=== PATIENT | male | born 2000 | race Hispanic/Latino ===

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

== ENCOUNTER 2021-03-22 20:18 | Emergency (ER) | payer OTHER ==
[2021-03-22] MEDS ORDERED: ONDANSETRON 4 MG/2 ML VIAL ONE (21:25)
[2021-03-22] MEDS ORDERED: FAMOTIDINE 20 MG/2 ML VIAL IV ONE (21:26)
[2021-03-22] MEDS ORDERED: NA CHLORIDE 0.9% 1,000 ML ONE ×2 (21:26→23:13)
[2021-03-22 21:29] LABS: Absolute Lymphocytes (CBC) 0.6 K/uL (0.7-4.9); Basophils % 0.1 % (0-1.3); Lymphocytes % 4.5 % (15.3-44.8); MPV 9.6 fL (7.6-11.3); RBC Red Blood Cell Count 5.16 M/uL (4.33-5.43)
[2021-03-22 21:47] LABS: ALT/SGPT 153 U/L (12-78); AST/SGOT 52 U/L (15-37); Albumin 4.3 g/dL (3.4-5.0); Alkaline Phosphatase 119 U/L (45-117); BUN Blood Urea Nitrogen 13 mg/dL (7-18); Bicarbonate 27 mmol/L (21-32); Bilirubin Direct 0.3 mg/dL (0-0.2); Bilirubin Total 1.3 mg/dL (0.2-1.0); Glucose Level 308 mg/dL (74-106); Lipase 56 U/L (73-393); Potassium 3.7 mmol/L (3.5-5.1); Protein, Total 8.1 g/dL (6.4-8.2); Sodium Level 136 mmol/L (136-145)
[2021-03-22 22:24] LABS: Blood Morphology Comment NOT SEEN (NOT SEEN); Platelet Estimate ADEQ
[2021-03-22] MEDS ORDERED: INSULIN -REGULAR HUMAN 50 UNIT/0.5 ML ML ONE (23:13)
--- NOTE | 2021-03-23 00:46 | ER ---
Nurse's Notes [facility] Name: Sergio Hilton Age: 20 yrs Sex: Male : 2000 Arrival Date: 03/22/2021 Time: 20:20 Bed 5 Private MD: Diagnosis: Nausea and vomiting;Diarrhea, unspecified;Diabetes mellitus due to underlying condition with hyperglycemia Presentation: 03/22 20:25 Chief complaint: Patient states: NVD that began today; pt stated has vomited 3x today vg1 and is unable to keep anything down. Pt also c/o headache. Coronavirus screen: Client denies travel out of the [place] in the last 14 days. Ebola Screen: Patient negative for fever greater than or equal to 101.5 degrees Fahrenheit, and additional compatible Ebola Virus Disease symptoms. Initial Sepsis Screen: Does the patient meet any 2 criteria? No. Patient's initial sepsis screen is negative. Does the patient have a suspected source of infection? No. Patient's initial sepsis screen is negative. Risk Assessment: Do you want to hurt yourself or someone else? Patient reports no desire to harm self or others. Onset of symptoms was March 22, 2021. 20:25 Method Of Arrival: Ambulatory vg1 20:25 Acuity: YURI 3 vg1 Triage Assessment: 20:27 General: Appears in no apparent distress. comfortable, Behavior is calm, cooperative. vg1 Pain: Complains of pain in abdomen. GI: Reports diarrhea, intolerance of fluids, intolerance of food, nausea, vomiting. Historical: - Allergies: 20:27 Latex, Natural Rubber; vg1 - Home Meds: 20:27 Metformin Oral [Active]; pantoprazole Oral [Active]; Trazodone Oral [Active]; vg1 citalopram oral [Active]; - PMHx: 20:27 Diabetes - NIDDM; Irritable bowel syndrome; Leukemia; vg1 - Immunization history:: Adult Immunizations up to date, Client reports receiving the 2nd dose of the Covid vaccine. - Social history:: Smoking status: Patient denies any tobacco usage or history of. Screenin:26 Abuse screen: Denies threats or abuse. Nutritional screening: No deficits noted. jb4 Tuberculosis screening: No symptoms or risk factors identified. Fall Risk None identified. Assessment: 21:10 General: Appears in no apparent distress. comfortable, Behavior is calm, cooperative. jb4 Pain: Denies pain. Neuro: Level of Consciousness is awake, alert, obeys commands, Oriented to person, place, time, situation. Cardiovascular: Patient's skin is warm and dry. Respiratory: Airway is patent Respiratory effort is even, unlabored, Respiratory pattern is regular, symmetrical. GI: Abdomen is flat, non-distended, Reports nausea, vomiting. : No signs and/or symptoms were reported regarding the genitourinary system. EENT: No signs and/or symptoms were reported regarding the EENT system. Derm: Skin is intact, Skin is pink, warm \T\ dry. Musculoskeletal: Circulation, motion, and sensation intact. Range of motion: intact in all extremities. 22:30 Reassessment: Patient appears in no apparent distress at this time. Patient and/or jb4 family updated on plan of care and expected duration. Pain level reassessed. Patient is alert, oriented x 3, equal unlabored respirations, skin warm/dry/pink. 03/23 00:00 Reassessment: Patient appears in no apparent distress at this time. Patient and/or jb4 family updated on plan of care and expected duration. Pain level reassessed. Patient is alert, oriented x 3, equal unlabored respirations, skin warm/dry/pink. 00:44 Reassessment: Patient appears in no apparent distress at this time. Patient and/or jb4 family updated on plan of care and expected duration. Pain level reassessed. Patient is alert, oriented x 3, equal unlabored respirations, skin warm/dry/pink. Vital Signs: 03/22 20:25 BP 129 / 78; Pulse 120; Resp 18; Temp 97.8; Pulse Ox 97% ; Weight 72.57 kg; Height 5 vg1 ft. 5 in. (165.10 cm); Pain 5/10; 22:45 BP 117 / 80; Pulse 84; Resp 16; Pulse Ox 95% on R/A; jb4 03/23 00:00 BP 119 / 78; Pulse 102; Resp 18; Pulse Ox 98% on R/A; jb4 00:30 BP 117 / 77; Pulse 99; Resp 16; Pulse Ox 97% on R/A; jb4 03/22 20:25 Body Mass Index 26.63 (72.57 kg, 165.10 cm) 1 ED Course: 03/22 20:20 Patient arrived in ED. cf2 20:27 Triage completed. vg1 20:27 Arm band placed on. vg1 20:35 Ulises Sullivan PA is PHCP. cp 20:36 Sarbjit Gant MD is Attending Physician. cp 21:02 Flaco Doherty, RN is Primary Nurse. jb4 21:10 Initial lab(s) drawn, by in, sent to lab. Inserted saline lock: 18 gauge in right jb4 antecubital area, using aseptic technique. Blood collected. 21:26 Patient has correct armband on for positive identification. Bed in low position. Call jb4 light in reach. Side rails up X 1. Pulse ox on. NIBP on. 23:02 US Abdomen Limited: elevated liver enzymes In Process Unspecified. EDMS 23:09 CT Abd/Pelvis - IV Contrast Only In Process Unspecified. EDMS 03/23 01:03 No provider procedures requiring assistance completed. IV discontinued, intact, jb4 bleeding controlled, No redness/swelling at site. Pressure dressing applied. Administered Medications: 03/22 21:18 Drug: Zofran (Ondansetron) 4 mg Route: IVP; Site: right antecubital; 4 21:50 Follow up: Response: No adverse reaction jb4 21:18 Drug: NS 0.9% 1000 ml Route: IV; Rate: 1 bolus; Site: right antecubital; jb4 22:00 Follow up: Response: No adverse reaction; IV Status: Completed infusion; IV Intake: jb4 1000ml 21:20 Drug: Pepcid (famotidine) 20 mg Route: IVP; Site: right antecubital; jb4 21:50 Follow up: Response: No adverse reaction jb4 22:54 Drug: Insulin Regular Human 10 units {Co-Signature: [email or web address] (Flaco Doherty RN).} Route: IVP; [facility] Site: right antecubital; 03/23 01:04 Follow up: Response: No adverse reaction; Marked relief of symptoms; Blood sugar is jb4 lowered 03/22 22:54 Drug: NS 0.9% 1000 ml Route: IV; Rate: 1 bolus; Site: right antecubital; jm8 03/23 00:00 Follow up: Response: No adverse reaction; IV Status: Completed infusion; IV Intake: jb4 1000ml Intake: 03/22 22:00 IV: 1000ml; Total: 1000ml. jb4 03/23 00:00 IV: 1000ml; Total: 2000ml. jb4 Outcome: 00:46 Discharge ordered by . cp 01:03 Discharged to home ambulatory. jb4 01:03 Condition: stable 01:03 Discharge instructions given to patient, Instructed on discharge instructions, follow up and referral plans. medication usage, Demonstrated understanding of instructions, follow-up care, medications, Prescriptions given X 2. 01:05 Patient left the ED. jb4 Signatures: Dispatcher [employer] EDMS Ulises Sullivan PA PA cp Bryson, James, JOEL RN jb4 Mike Burkett cf2 Sujatha Del Real RN RN vg1 Hernandez Boucher, RN RN jm8 Flaco Doherty RN jb4
--- NOTE | 2021-03-23 00:47 | EDPHYS ---
Physician Documentation [facility] Name: Sergio Hilton Age: 20 yrs Sex: Male : 2000 Arrival Date: 03/22/2021 Time: 20:20 Bed 5 Private MD: ED Physician Sarbjit Gant HPI: 03/22 20:50 This 20 yrs old Male presents to ER via Ambulatory with complaints of cp Nausea/Vomiting, Headache. 20:50 The patient presents to the emergency department with nausea, that is moderate, cp vomiting, that is intermittent, diarrhea, that is intermittent, abdominal pain, of the abdomen diffusely. Onset: The symptoms/episode began/occurred last night, and became worse this morning. Possible causes: bad food exposure, ate some gummy bears from convenience store. Associated signs and symptoms: Pertinent positives: anorexia, diarrhea, nausea, vomiting, Pertinent negatives: constipation, fever, GI bleeding. Severity of symptoms: in the emergency department the symptoms are unchanged despite home interventions. Historical: - Allergies: 20:27 Latex, Natural Rubber; vg1 - Home Meds: 20:27 Metformin Oral [Active]; pantoprazole Oral [Active]; Trazodone Oral [Active]; vg1 citalopram oral [Active]; - PMHx: 20:27 Diabetes - NIDDM; Irritable bowel syndrome; Leukemia; vg1 - Immunization history:: Adult Immunizations up to date, Client reports receiving the 2nd dose of the Covid vaccine. - Social history:: Smoking status: Patient denies any tobacco usage or history of. ROS: 21:00 Constitutional: Positive for poor PO intake, Negative for body aches, chills, fever. cp 21:00 Eyes: Negative for injury, pain, redness, and discharge. cp 21:00 Cardiovascular: Negative for chest pain, edema, palpitations. cp 21:00 Respiratory: Negative for cough, shortness of breath, wheezing. 21:00 Abdomen/GI: Positive for abdominal pain, nausea, vomiting, and diarrhea, Negative for constipation. 21:00 : Negative for urinary symptoms. 21:00 Neuro: Positive for headache, Negative for altered mental status, weakness. 21:00 All other systems are negative. Exam: 21:05 Constitutional: The patient appears in no acute distress, alert, awake, non-toxic, well cp developed, well nourished. 21:05 Head/Face: Normocephalic, atraumatic. cp 21:05 Eyes: Periorbital structures: appear normal, Conjunctiva: normal, no exudate, no injection, Sclera: no appreciated abnormality, Lids and lashes: appear normal, bilaterally. 21:05 ENT: External ear(s): are unremarkable, Nose: is normal, Mouth: Lips: moist, Oral mucosa: moist, Posterior pharynx: Airway: no evidence of obstruction, patent. 21:05 Chest/axilla: Inspection: normal, Palpation: is normal, no crepitus, no tenderness. 21:05 Cardiovascular: Rate: tachycardic, Rhythm: regular. 21:05 Respiratory: the patient does not display signs of respiratory distress, Respirations: normal, no use of accessory muscles, no retractions, labored breathing, is not present, Breath sounds: are clear throughout, no decreased breath sounds, no stridor, no wheezing. 21:05 Abdomen/GI: Inspection: abdomen appears normal, Bowel sounds: active, all quadrants, Palpation: soft, in all quadrants, mild abdominal tenderness, in all quadrants, rebound tenderness, is not appreciated, voluntary guarding, is not appreciated, involuntary guarding, is not appreciated. 21:05 Back: CVA tenderness, is absent. 21:05 Neuro: Orientation: to person, place \T\ time. Mentation: is normal. Vital Signs: 20:25 BP 129 / 78; Pulse 120; Resp 18; Temp 97.8; Pulse Ox 97% ; Weight 72.57 kg; Height 5 vg1 ft. 5 in. (165.10 cm); Pain 5/10; 22:45 BP 117 / 80; Pulse 84; Resp 16; Pulse Ox 95% on R/A; jb4 03/23 00:00 BP 119 / 78; Pulse 102; Resp 18; Pulse Ox 98% on R/A; jb4 00:30 BP 117 / 77; Pulse 99; Resp 16; Pulse Ox 97% on R/A; jb4 03/22 20:25 Body Mass Index 26.63 (72.57 kg, 165.10 cm) vg1 MDM: 03/22 20:39 Patient medically screened. 03/23 00:44 Data reviewed: vital signs, nurses notes, lab test result(s), radiologic studies, CT cp scan, ultrasound. Counseling: I had a detailed discussion with the patient and/or guardian regarding: the historical points, exam findings, and any diagnostic results supporting the discharge/admit diagnosis, lab results, radiology results, to return to the emergency department if symptoms worsen or persist or if there are any questions or concerns that arise at home. Response to treatment: the patient's symptoms have markedly improved after treatment, Nausea and pain improved. Vomiting resolved. Will discharge to home for continued monitoring. 03/22 20:41 Order name: Basic Metabolic Panel; Complete Time: 22:45 cp 03/22 22:45 Interpretation: Normal except: GLUC 308. cp 03/22 20:41 Order name: CBC with Diff; Complete Time: 22:45 cp 03/22 23:42 Interpretation: Normal except: WBC 12.40. cp 03/22 20:41 Order name: Hepatic Function; Complete Time: 22:45 cp 03/22 23:42 Interpretation: Normal except: AST 52; ALT 153; ALK 119; BILIT 1.3; BILID 0.3; GLOB 3.8.cp 03/22 20:41 Order name: Lipase; Complete Time: 22:45 cp 03/22 20:41 Order name: Ketone, Serum; Complete Time: 22:45 cp 03/22 21:24 Order name: Glucose, Ancillary Testing; Complete Time: 22:45 EDMS 03/22 21:31 Order name: Manual Differential; Complete Time: 22:45 EDMS 03/22 23:43 Interpretation: Normal except: BANDS [F] 18; LYM 3. cp 03/22 22:47 Order name: US Abdomen Limited: elevated liver enzymes 03/22 22:47 Order name: CT Abd/Pelvis - IV Contrast Only cp 03/23 00:53 Order name: Glucose, Ancillary Testing EDMS 03/22 20:41 Order name: IV Saline Lock; Complete Time: 21:23 cp 03/22 20:41 Order name: Labs collected and sent; Complete Time: 21:23 cp 03/22 20:41 Order name: Accucheck Blood Glucose; Complete Time: 21:23 cp 03/23 00:13 Order name: PO challenge; Complete Time: 00:20 cp 03/23 00:14 Order name: Accucheck Blood Glucose; Complete Time: 00:43 cp Administered Medications: 03/22 21:18 Drug: Zofran (Ondansetron) 4 mg Route: IVP; Site: right antecubital; jb4 21:50 Follow up: Response: No adverse reaction [facility] 21:18 Drug: NS 0.9% 1000 ml Route: IV; Rate: 1 bolus; Site: right antecubital; jb4 22:00 Follow up: Response: No adverse reaction; IV Status: Completed infusion; IV Intake: jb4 1000ml 21:20 Drug: Pepcid (famotidine) 20 mg Route: IVP; Site: right antecubital; jb4 21:50 Follow up: Response: No adverse reaction [facility] 22:54 Drug: Insulin Regular Human 10 units {Co-Signature: [email or web address] (Flaco Doherty RN).} Route: IVP; [facility] Site: right antecubital; 03/23 01:04 Follow up: Response: No adverse reaction; Marked relief of symptoms; Blood sugar is jb4 lowered 03/22 22:54 Drug: NS 0.9% 1000 ml Route: IV; Rate: 1 bolus; Site: right antecubital; [facility] 03/23 00:00 Follow up: Response: No adverse reaction; IV Status: Completed infusion; IV Intake: jb4 1000ml Disposition: 03/23/21 00:46 Discharged to Home. Impression: Nausea and vomiting, Diarrhea, unspecified, Diabetes mellitus due to underlying condition with hyperglycemia. - Condition is Stable. - Discharge Instructions: Diarrhea, Adult, Nausea and Vomiting, Adult, Diabetes Mellitus and Food. - Prescriptions for Pepcid 20 mg Oral Tablet - take 1 tablet by ORAL route every 12 hours for 10 days; 20 tablet. Zofran 4 mg Oral Tablet - take 1 tablet by ORAL route every 12 hours As needed; 20 tablet. - Medication Reconciliation Form, Thank You Letter, Antibiotic Education, Prescription Opioid Use form. - Follow up: Private Physician; When: 2 - 3 days; Reason: Worsening of condition. - Problem is new. - Symptoms have improved. Signatures: Dispatcher [employer] EDMS Ulises Sullivan PA PA cp Bryson, James, RN RN jb4 Sujatha Del Real RN RN vg1 Hernandez Boucher RN RN jm8 Flaco Doherty RN jb4 Corrections: (The following items were deleted from the chart) 01:05 00:46 03/23/2021 00:46 Discharged to Home. Impression: Nausea and vomiting; Diarrhea, jb4 unspecified; Diabetes mellitus due to underlying condition with hyperglycemia. Condition is Stable. Forms are Medication Reconciliation Form, Thank You Letter, Antibiotic Education, Prescription Opioid Use. Follow up: Private Physician; When: 2 - 3 days; Reason: Worsening of condition. Problem is new. Symptoms have improved. cp
[2021-03-23 01:22] VITALS: TEMP 97.8
[2021-03-23 01:28] VITALS: BP 117/77; O2SAT 97
--- NOTE | 2021-03-23 06:51 | RAD REPORT ---
EXAM DESCRIPTION: US - Abdomen Exam Limited - 03/22/2021 11:01 pm CLINICAL HISTORY: ABD PAIN COMPARISON: Abdomen Pelvis W Contrast dated 11/14/2019 FINDINGS: No gallstones, sludge or other abnormalities within the gallbladder lumen. There is no wal l thickening or pericholecystic fluid. No common duct stone or biliary tree dilatation identified. IMPRESSION: Normal gallbladder and biliary tree ultrasound.
--- NOTE | 2021-03-23 10:33 | RAD REPORT ---
EXAM DESCRIPTION: CT - Abdomen Pelvis W Contrast - 03/23/2021 6:56 am CLINICAL HISTORY: The patient is 20 years old and is Male; ABD PAIN TECHNIQUE: Axial computed tomography images of the abdomen and pelvis with intravenous contrast. S agittal and coronal reformatted images were created and reviewed. This CT exam was performed using one or more of the following dose reduction techniques: automated exposure control, adjustment of t he mA and/or kV according to patient size, and/or use of iterative reconstruction technique. COMPARISON: CT abdomen and pelvis 11/14/2019. FINDINGS: Lung bases: Unremarkable. No mass. No consolidation. ABDOMEN: Liver: Unremarkable. No mass. Gallbladder and bile ducts: Unremarkable. No calcified stones. No ductal dilation. Pancreas: Unremarkable. No mass. No ductal dilation. Spleen: Unremarkable. No splenomegaly. Adrenals: Unremarkable. No mass. Kidneys and ureters: Unremarkable. No solid mass. No hydronephrosis. Stomach and bowel: Fluid in the rectosigmoid colon. No obstruction. No mucosal thickening. PELVIS: Appendix: The appendix is not visualized. Hyperdensity in the right lower quadrant which may be related to prior appendectomy. Bladder: Unremarkable. No mass. Reproductive: Unremarkable as visualized. ABDOMEN and PELVIS: Intraperitoneal space: Unremarkable. No free air. No significant fluid collection. Bones/joints: Nonspecific 1.3 cm sclerotic lesion in the left iliac wing which appears similar t o the prior exam. No acute fracture. No dislocation. Soft tissues: Unremarkable. Vasculature: Unremarkable. No abdominal aortic aneurysm. Lymph nodes: Unremarkable. No enlarged lymph nodes. IMPRESSION: No acute findings in the abdomen or pelvis. Electronically signed by: Solitario Waller MD 03/22/2021 11:46 PM CDT Due to temporary technical issues with the PACS/Fluency reporting system, reports are being signed by the in house radiologist without review as a courtesy to ensure prompt reporting. The interpreting r adiologist is fully responsible for the content of the report.
== END 2021-03-23 01:05 | disposition home or self-care (01) ==
LOC: ER 20:18
DX: E11.65 Type 2 diabetes mellitus with hyperglycemia (principal); R19.7 Diarrhea, unspecified; Z85.6 Personal history of leukemia; Z91.040 Latex allergy status; Z91.048 Other nonmedicinal substance allergy status
CPT/HCPCS: 85025; 80048; 36415; 82010; 82947 ×2; 80076; 83690; 74177; 76705; Q9967; J7030 ×2; J2405; 96361; 96374; 96375; 99284

== ENCOUNTER 2021-05-25 10:27 | Emergency (ER) | payer OTHER ==
--- OUTSIDE RECORDS SUMMARY | 2021-05-24 19:16 | XMS REPORT | Continuity of Care Document ---
:2000 Author Organization [facility] t Address [address] [place] [address] Dr. Ayala [address] [place] [address] Care Team Providers Name Role Phone Unavailable Unavailable Unavailable Problems This patient has no known problems. Allergies, Adverse Reactions, Alerts This patient has no known allergies or adverse reactions. Medications This patient has no known medications. Procedures This patient has no known procedures. Results This patient has no known results.
--- NOTE | 2021-05-25 15:07 | ER ---
Nurse's Notes [facility] Name: Sergio Hilton Age: 20 yrs Sex: Male : 2000 Arrival Date: 05/25/2021 Time: 10:36 Bed DIS11 Private MD: Diagnosis: Streptococcal pharyngitis Presentation: 05/25 11:19 Chief complaint: Patient states: Itchy rash all over x 1.5 weeks, exposed to COVID by jl7 mom who tested positive, reports sore throat x 4 days, denies any other symtoms. Coronavirus screen: Client denies travel out of the [place] in the last 14 days. sore throat, Client presents with at least one sign or symptom that may indicate coronavirus-19. Standard/surgical mask placed on the client. Provider contacted for isolation considerations. Ebola Screen: No symptoms or risks identified at this time. Initial Sepsis Screen: Does the patient meet any 2 criteria? No. Patient's initial sepsis screen is negative. Does the patient have a suspected source of infection? No. Patient's initial sepsis screen is negative. Risk Assessment: Do you want to hurt yourself or someone else? Patient reports no desire to harm self or others. Onset of symptoms was May 22, 2021. 11:19 Method Of Arrival: Ambulatory [facility] 11:19 Acuity: YURI 4 jl7 Historical: - Allergies: 12:11 Latex, Natural Rubber; ap3 - PMHx: 11:21 Diabetes - NIDDM; Irritable bowel syndrome; Leukemia; jl7 - Immunization history:: Client reports receiving the 2nd dose of the Covid vaccine, Pfizer. - Social history:: Smoking status: Patient denies any tobacco usage or history of. Screenin:10 Abuse screen: Denies threats or abuse. Nutritional screening: No deficits noted. ap3 Tuberculosis screening: No symptoms or risk factors identified. Fall Risk None identified. Assessment: 11:25 Neuro: Level of Consciousness is awake, alert, obeys commands, Oriented to person, ap3 place, time, situation, Appropriate for age Crepe Box Tender are equal bilaterally Moves all extremities. Gait is steady, Speech is normal. Cardiovascular: Denies chest pain, shortness of breath. Respiratory: Airway is patent Respiratory effort is even, unlabored, Respiratory pattern is regular, symmetrical, Breath sounds are clear bilaterally. GI: No signs and/or symptoms were reported involving the gastrointestinal system. : No signs and/or symptoms were reported regarding the genitourinary system. EENT: Throat is pink. 12:08 General: Appears in no apparent distress. comfortable, Behavior is calm, cooperative, ap3 appropriate for age. Pain: Denies pain. 12:26 Reassessment: Patient and/or family updated on plan of care and expected duration. Pain ap3 level reassessed. Patient is alert, oriented x 3, equal unlabored respirations, skin warm/dry/pink. Vital Signs: 11:19 BP 126 / 80; Pulse 97; Resp 17; Temp 98.2; Pulse Ox 100% on R/A; Weight 77.11 kg; jl7 Height 5 ft. 5 in. (165.10 cm); Pain 8/10; 12:11 BP 115 / 75; Pulse 91; Pulse Ox 99% on R/A; ap3 11:19 Body Mass Index 28.29 (77.11 kg, 165.10 cm) jl7 ED Course: 10:36 Patient arrived in ED. am2 11:21 Triage completed. jl7 11:21 Arm band placed on right wrist. Patient placed in an exam room, on a stretcher. jl7 12:08 Kateryna Dior, RN is Primary Nurse. ap3 12:11 Patient has correct armband on for positive identification. Bed in low position. Call ap3 light in reach. Side rails up X2. Pulse ox on. NIBP on. Door closed. Noise minimized. 12:17 Poly Trinidad is Attending Physician. sp3 13:05 COVID swab sent to lab. Strep swab sent to lab. jl7 15:16 No provider procedures requiring assistance completed. Patient did not have IV access iw during this emergency room visit. Administered Medications: No medications were administered Outcome: 15:06 Discharge ordered by MD. sp3 15:16 Discharged to home ambulatory. iw 15:16 Condition: good 15:16 Discharge instructions given to patient, Instructed on discharge instructions, follow up and referral plans. medication usage, Demonstrated understanding of instructions, follow-up care, medications, Prescriptions given X 1. 15:17 Patient left the ED. iw Signatures: Maude Armstrong RN RN iw Aroldo Nazario RN RN jl7 Kateryna Nye am2 Kateryna Dior RN RN ap3 Poly Trinidad sp3 Corrections: (The following items were deleted from the chart) 12:11 11:21 Allergies: Latex, Natural Rubber; lida ap3
--- NOTE | 2021-05-25 15:07 | EDPHYS ---
Physician Documentation [facility] Name: Sergio Hilton Age: 20 yrs Sex: Male : 2000 Arrival Date: 05/25/2021 Time: 10:36 Bed DIS11 Private MD: ED Physician Poly Trinidad HPI: 05/25 13:21 This 20 yrs old Male presents to ER via Ambulatory with complaints of Rash, sp3 Sore Throat, exposure to covid. 13:21 20-year-old male with no significant past medical history and who was received 2 doses sp3 of the Pfizer vaccine presents with sore throat and Covid exposure secondary to his mom tested positive yesterday. Patient states that his sore throat has been present for approximately 3 to 4 days and he has also had a viral exanthem type rash that is mildly pruritic for approximately 1 week. Patient reports no other symptoms including fever, URI symptoms, sinus symptoms, shortness of breath, back pain, chest pain, abdominal pain, nausea, vomiting, diarrhea, syncope, memory loss, loss of taste or smell, or any other aspect of ROS at this time. Patient is able to swallow and handle oral secretions without difficulty.. Historical: - Allergies: 12:11 Latex, Natural Rubber; ap3 - PMHx: 11:21 Diabetes - NIDDM; Irritable bowel syndrome; Leukemia; jl7 - Immunization history:: Client reports receiving the 2nd dose of the Covid vaccine, Pfizer. - Social history:: Smoking status: Patient denies any tobacco usage or history of. ROS: 13:22 Constitutional: Negative for fever, chills, and weight loss, Eyes: Negative for injury, sp3 pain, redness, and discharge, Neck: Negative for injury, pain, and swelling, Cardiovascular: Negative for chest pain, palpitations, and edema, Respiratory: Negative for shortness of breath, cough, wheezing, and pleuritic chest pain, Abdomen/GI: Negative for abdominal pain, nausea, vomiting, diarrhea, and constipation, Back: Negative for injury and pain, Skin: Negative for injury, rash, and discoloration, Neuro: Negative for headache, weakness, numbness, tingling, and seizure. 13:22 ENT: Positive for sore throat, Negative for drainage from ear(s), ear pain, foreign body sensation, Gum pain Teeth pain nasal discharge, sinus congestion, sinus pain, difficulty swallowing, difficulty handling secretions, hoarseness. 13:22 Skin: Positive for rash. Exam: 13:23 Constitutional: This is a well developed, well nourished patient who is awake, alert, sp3 and in no acute distress. Head/Face: Normocephalic, atraumatic. Eyes: Pupils equal round and reactive to light, extra-ocular motions intact. Lids and lashes normal. Conjunctiva and sclera are non-icteric and not injected. Cornea within normal limits. Periorbital areas with no swelling, redness, or edema. Neck: Trachea midline, no thyromegaly or masses palpated, and no cervical lymphadenopathy. Supple, full range of motion without nuchal rigidity, or vertebral point tenderness. No Meningismus. Chest/axilla: Normal chest wall appearance and motion. Nontender with no deformity. No lesions are appreciated. Cardiovascular: Regular rate and rhythm with a normal S1 and S2. No gallops, murmurs, or rubs. Normal PMI, no JVD. No pulse deficits. Respiratory: Lungs have equal breath sounds bilaterally, clear to auscultation and percussion. No rales, rhonchi or wheezes noted. No increased work of breathing, no retractions or nasal flaring. Abdomen/GI: Soft, non-tender, with normal bowel sounds. No distension or tympany. No guarding or rebound. No evidence of tenderness throughout. Back: No spinal tenderness. No costovertebral tenderness. Full range of motion. 13:23 ENT: External ear(s): are unremarkable, Ear canal(s): are normal, Nose: is normal, Mouth: is normal, Posterior pharynx: erythema. 13:23 Skin: Nonspecific viral exanthem and an eczema type pattern present. Rashes not concerning for infection, necrosis, Nikolsky sign is negative.. Vital Signs: 11:19 BP 126 / 80; Pulse 97; Resp 17; Temp 98.2; Pulse Ox 100% on R/A; Weight 77.11 kg; jl7 Height 5 ft. 5 in. (165.10 cm); Pain 8/10; 12:11 BP 115 / 75; Pulse 91; Pulse Ox 99% on R/A; ap3 11:19 Body Mass Index 28.29 (77.11 kg, 165.10 cm) lida MDM: 12:50 Patient medically screened. sp3 13:24 ED course: Patient stable in no acute distress and likely has a viral syndrome. We will sp3 obtain rapid strep test and COVID-19 nasopharyngeal swab to further delineate possibilities. If both are negative we will discharge patient home on general precautions and viral syndrome diagnosis with supportive care OTC and good oral hydration education.. 15:05 ED course: Patient is strep a positive we will discharge him on antibiotics. Patient's sp3 rash may represent scarlet fever.. 15:09 ED course: Patient's Covid test is still pending and we will call with the results. sp3 There is still a moderate probability chance that he is COVID-19 positive given that his mom is positive and they were in close contact.. 05/25 12:44 Order name: Strep; Complete Time: 15:05 sp3 Administered Medications: No medications were administered Disposition Summary: 05/25/21 15:06 Discharge Ordered Location: Home sp3 Condition: Stable sp3 Diagnosis - Streptococcal pharyngitis sp3 Followup: sp3 - With: Private Physician - When: As needed - Reason: Re-evaluation by your physician Discharge Instructions: - Discharge Summary Sheet sp3 - Strep Throat, Adult sp3 Forms: - Medication Reconciliation Form sp3 - Thank You Letter sp3 - Work release form kj1 - Antibiotic Education sp3 - Prescription Opioid Use sp3 Prescriptions: - Augmentin 875-125 mg Oral Tablet - take 1 tablet by ORAL route every 12 hours for 10 days; 20 tablet; Refills: 0, sp3 Product Selection Permitted Signatures: Dispatcher [employer] Aroldo Deleon RN RN [email or web address] Kateryna Dior RN RN [email or web address] Poly Trinidad sp3 Corrections: (The following items were deleted from the chart) 12:11 11:21 Allergies: Latex, Natural Rubber; lida [email or web address] 14:47 12:44 CORONAVIRUS+ ordered. EDVT EDVT
[2021-05-25 15:23] VITALS: TEMP 98.2
[2021-05-25 15:25] VITALS: BP 115/75; O2SAT 99
== END 2021-05-25 15:17 | disposition home or self-care (01) ==
LOC: ER 10:27
DX: J02.0 Streptococcal pharyngitis (principal); Z20.822 Contact with and (suspected) exposure to COVID-19; Z91.040 Latex allergy status; Z91.048 Other nonmedicinal substance allergy status
CPT/HCPCS: 87081; 99283; U0003

== ENCOUNTER 2021-06-22 12:07 | Emergency (ER) | payer OTHER ==
--- NOTE | 2021-06-22 14:58 | EDPHYS ---
Physician Documentation [facility] Name: Sergio Hilton Age: 20 yrs Sex: Male : 2000 Arrival Date: 06/22/2021 Time: 12:18 Bed DX1 Private MD: ED Physician Ulises Sheikh HPI: 06/22 15:19 This 20 yrs old Male presents to ER via Ambulatory with complaints of Rash - jr8 itchy and all over. 15:19 This is a 20-year-old male patient that presented to the emergency room for rash to jr8 upper extremities, back, lower extremities for 1 month. Has tried wecm-fcg-sygurne lotions and creams without relief. Has also tried antihistamines ekgu-htu-[id number] as well without relief. Stated that he is also seen itchy lesions on the tip of his penis as well.. Historical: - Allergies: 12:51 Latex, Natural Rubber; aa5 - PMHx: 12:51 Diabetes - NIDDM; Irritable bowel syndrome; Leukemia; aa5 12:52 Anger issues; aa5 - Immunization history:: Client reports receiving the 2nd dose of the Covid vaccine. - Social history:: Smoking status: Patient denies any tobacco usage or history of. ROS: 15:19 Constitutional: Negative for fever, chills, and weight loss, Cardiovascular: Negative jr8 for chest pain, palpitations, and edema, Respiratory: Negative for shortness of breath, cough, wheezing, and pleuritic chest pain, Abdomen/GI: Negative for abdominal pain, nausea, vomiting, diarrhea, and constipation, Back: Negative for injury and pain, MS/Extremity: Negative for injury and deformity, Neuro: Negative for headache, weakness, numbness, tingling, and seizure. 15:19 Skin: Positive for rash. Exam: 15:19 Constitutional: This is a well developed, well nourished patient who is awake, alert, jr8 and in no acute distress. Cardiovascular: Regular rate and rhythm with a normal S1 and S2. No gallops, murmurs, or rubs. Normal PMI, no JVD. No pulse deficits. Respiratory: Lungs have equal breath sounds bilaterally, clear to auscultation and percussion. No rales, rhonchi or wheezes noted. No increased work of breathing, no retractions or nasal flaring. MS/ Extremity: Pulses equal, no cyanosis. Neurovascular intact. Full, normal range of motion. Neuro: Awake and alert, GCS 15, oriented to person, place, time, and situation. Cranial nerves II-XII grossly intact. Motor strength 5/5 in all extremities. Sensory grossly intact. 15:19 : Male external genitalia: Patient has a few red papules nonulcerative are umbilicated lesions to the tip of the penis. No discharge or extension into the shaft or testicular region.. 15:19 Skin: Patient has diffuse dry skin with some nonerythematic patching.. Vital Signs: 12:52 BP 141 / 91; Pulse 95; Resp 16 S; Temp 98.3(O); Pulse Ox 100% on R/A; Weight 77.11 kg aa5 (R); Height 5 ft. 5 in. (165.10 cm) (R); 15:08 BP 124 / 78; Pulse 93; Resp 20; Pulse Ox 99% on R/A; kg 12:52 Body Mass Index 28.29 (77.11 kg, 165.10 cm) aa5 MDM: 14:26 Patient medically screened. jr8 14:54 Data reviewed: vital signs, nurses notes, and as a result, I will discharge patient. jr8 Data interpreted: Pulse oximetry: on room air is 100 %. Interpretation: normal. Counseling: I had a detailed discussion with the patient and/or guardian regarding: the historical points, exam findings, and any diagnostic results supporting the discharge/admit diagnosis, the need for outpatient follow up, a examining officer, a family practitioner, to return to the emergency department if symptoms worsen or persist or if there are any questions or concerns that arise at home. 15:34 ED course: Discussed with for his extremities and back it appears that he has a jr8 dermatitis. As far as his genital region it is most likely a balanitis especially with his history of diabetes. We will try nystatin first. If it does not improve would need to see PCP or dermatology to continue to rule out herpetic lesions or other lesions. Administered Medications: No medications were administered Disposition: 06/23 06:41 Co-signature as Attending Physician, Ulises Sheikh MD I agree with the assessment and anjelica plan of care. Disposition Summary: 06/22/21 14:57 Discharge Ordered Location: Home jr8 Problem: new jr8 Symptoms: have improved jr8 Condition: Stable jr8 Diagnosis - Dermatitis, unspecified jr8 - Candidal balanitis jr8 Followup: jr8 - With: Private Physician - When: 2 - 3 days - Reason: Recheck today's complaints, Continuance of care, Re-evaluation by your physician Discharge Instructions: - Discharge Summary Sheet jr8 - Balanitis jr8 - Contact Dermatitis jr8 Forms: - Medication Reconciliation Form jr8 - Thank You Letter jr8 - Antibiotic Education jr8 - Prescription Opioid Use jr8 Prescriptions: - Prednisone 20 mg Oral Tablet - take 1 tablet by ORAL route once daily for 5 days; 5 tablet; Refills: 0, jr8 Product Selection Permitted - Nystatin-Triamcinolone 100,000-0.1 unit/gram-% Topical Ointment - apply 1 application by TOPICAL route 2 times per day; 1 tube; Refills: 0, jr8 Product Selection Permitted Signatures: Ulises Sheikh MD MD cha Calderon, Audri RN RN aa5 Blaise Holman PA PA jr8
--- NOTE | 2021-06-22 14:58 | ER ---
Nurse's Notes [facility] Name: Sergio Hilton Age: 20 yrs Sex: Male : 2000 Arrival Date: 06/22/2021 Time: 12:18 Bed DX1 Private MD: Diagnosis: Dermatitis, unspecified;Candidal balanitis Presentation: 06/22 12:51 Chief complaint: Patient states: rash all over x 1 month ago, pt reports rash is itchy. aa5 Coronavirus screen: At this time, the client does not indicate any symptoms associated with coronavirus-19. Ebola Screen: Patient negative for fever greater than or equal to 101.5 degrees Fahrenheit, and additional compatible Ebola Virus Disease symptoms. Initial Sepsis Screen: Does the patient meet any 2 criteria? No. Patient's initial sepsis screen is negative. Does the patient have a suspected source of infection? No. Patient's initial sepsis screen is negative. Risk Assessment: Do you want to hurt yourself or someone else? Patient reports no desire to harm self or others. Onset of symptoms was 2020. 12:51 Method Of Arrival: Ambulatory aa5 12:51 Acuity: YURI 5 aa5 Triage Assessment: 14:07 General: Appears in no apparent distress. Behavior is calm, cooperative, appropriate kg for age, quiet. Pain: Complains of pain in Generalized Pain currently is 5 out of 10 on a pain scale. Quality of pain is described as Itching, burning. Derm: Rash noted that is itchy, Dry, peeling rash Reports burning, itching. Historical: - Allergies: 12:51 Latex, Natural Rubber; aa5 - PMHx: 12:51 Diabetes - NIDDM; Irritable bowel syndrome; Leukemia; aa5 12:52 Anger issues; aa5 - Immunization history:: Client reports receiving the 2nd dose of the Covid vaccine. - Social history:: Smoking status: Patient denies any tobacco usage or history of. Screenin:07 Abuse screen: Denies threats or abuse. Denies injuries from another. Nutritional kg screening: No deficits noted. Tuberculosis screening: No symptoms or risk factors identified. Fall Risk None identified. Vital Signs: 12:52 BP 141 / 91; Pulse 95; Resp 16 S; Temp 98.3(O); Pulse Ox 100% on R/A; Weight 77.11 kg aa5 (R); Height 5 ft. 5 in. (165.10 cm) (R); 15:08 BP 124 / 78; Pulse 93; Resp 20; Pulse Ox 99% on R/A; kg 12:52 Body Mass Index 28.29 (77.11 kg, 165.10 cm) aa5 ED Course: 12:18 Patient arrived in ED. am2 12:50 Arm band placed on. aa5 12:52 Triage completed. aa5 14:05 Natasha Burton, RN is Primary Nurse. kg 14:12 No provider procedures requiring assistance completed. kg 14:13 Patient has correct armband on for positive identification. kg 14:26 Blaise Holman PA is PHCP. jr8 14:26 Ulises Sheikh MD is Attending Physician. jr8 15:14 Patient did not have IV access during this emergency room visit. kg Administered Medications: No medications were administered Outcome: 14:57 Discharge ordered by . jr8 15:14 Discharged to home ambulatory. kg 15:14 Condition: good 15:14 Discharge instructions given to patient, Instructed on discharge instructions, follow up and referral plans. Demonstrated understanding of instructions, follow-up care, medications, Prescriptions given X 2. 15:15 Patient left the ED. kg Signatures: Meg Varghese, RN RN [facility] Blaise Holman PA PA jr8 Kateryna Nye am2 Natasha Burton, RN RN kg
[2021-06-22 15:35] VITALS: TEMP 98.3
[2021-06-22 15:37] VITALS: BP 124/78; O2SAT 99
== END 2021-06-22 15:15 | disposition home or self-care (01) ==
LOC: ER 12:07
DX: L30.9 Dermatitis, unspecified (principal); B37.42 Candidal balanitis; E11.9 Type 2 diabetes mellitus without complications; Z91.040 Latex allergy status; Z91.048 Other nonmedicinal substance allergy status
CPT/HCPCS: 99282

== ENCOUNTER 2021-11-03 18:44 | Emergency (ER) | payer OTHER ==
--- OUTSIDE RECORDS SUMMARY | 2021-11-03 18:48 | XMS REPORT | Continuity of Care Document ---
:2000 Author Organization [facility] t Address [address] [place] [address] [address] [place] [address] Care Team Providers Name Role Phone Elvia FUNEZP Primary Care Physician Elvia FUNEZP Attending Clinician Payers Payer Name Policy Type Policy Number Effective Date Expiration Date S ource Problems Condition Condition Condition Status Onset Resolution Last Treating Co mments Source Name Details Category Date Date Treatment Clinician Date Bone Bone Disease Active Univers marrow marrow 4-18 [place] 00 Medical 04/22/2011 04/22/2011 Bran ch Blood Blood Disease Active Overview: Univer s transfusio transfusio Formattin ity of n without n without g of this [place] reported reported note Medica l diagnosis diagnosis might be Br anch different from the original. 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 Bran ch ADHD ADHD Disease Active Univers (attention (attention it y of deficit deficit [place] hyperactiv hyperactiv Me dical ity ity Branch disorder) disorder) Allergies, Adverse Reactions, Alerts Allergy Allergy Status Severity Reaction(s) Onset Inactive Treating Comm ents Source Name Type Date Date Clinician Latex Propensi Active Rash Redness Univers ty to 5-18 to site ity of adverse 00:00: where [place] reaction 00 latex Medical s touches Branch Social History Social Habit Start Date Stop Date Quantity Comments Source Exposure to Not sure University SARS-CoV-2 [place] Medical (event) Branch Alcohol intake 2021-11-03 2021-11-03 Current University of 00:00:00 00:00:00 non-drinker of [facility] alcohol Branch (finding) Tobacco use and 2013-01-24 2013-01-24 Never used Universit y of exposure 00:00:00 00:00:00 [facility] Tobacco Comment 2013-01-24 2013-01-24 Family smokes Univer sity of 00:00:00 00:00:00 outside [facility] Sex Assigned At [birth year] Universit y of 00:00:00 00:00:00 [facility] Smoking Status Start Date Stop Date Source Never smoker [facility] Medications Ordered Filled Start Stop Current Ordering Indication Dosage Frequency Signature Comments Components Source Medication Medication Date Date Medication? Clinician (SIG) Name Name metformin Yes [id number] 750mg Take 1 Univers ER 750 mg 1-26 tablet by ity o f 24 hr 00:00: mouth [place] tablet 00 daily with Medical breakfast. Branch rosuvastati 2021- Yes [id number] 20mg Take 1 Univers n 20 mg 1-25 04-26 tablet by ity of tablet 00:00: 04:59 mouth at [place] 00 :00 bedtime Medical for 90 Branch days. ivermectin Yes [id number] 13.5mg Take 4.5 Univers 3 mg tablet 1-12 tablets by it y of 00:00: mouth [place] 00 weekly. Medical Branch triamcinolo Yes [id number] Apply to Univers ne 1-10 area(s) 2 ity of acetonide 00:00: (two) [place] 0.1 % 00 times Medical ointment daily. Branch glipiZIDE 2020-10- Yes [id number] 10mg Take 1 Univers XL 10 mg 24 2-28 03-29 tablet by it y of hr tablet 00:00: 04:59 mouth [place] 00 :00 daily with Medical breakfast Branch for 90 days. clobetasoL 2020-10 Yes [id number] Apply to Univers 0.05 % 2-27 area(s) 2 ity of ointment 00:00: (two) [place] 00 times Medical daily. Branch trazodone 2021-1 Yes Take by Univ ers HCl 1-29 mouth. ity of (TRAZODONE 13:30: [place] ORAL) Medical Branch citalopram 2020-10 Yes 10mg Take 10 mg U nivers 10 mg 1-29 by mouth ity of tablet 13:30: daily. [place] [facility] dicyclomine 2017-10 Yes 10mg Take 10 mg Univers 10 mg - by mouth. ity of capsule 00:00: [place] [facility] dexmethylph Yes [id number] 15mg Take 1 Cap Univers enidate 2-07 by mouth ity of (FOCALIN 00:00: daily. [place] XR) 15 mg 00 Medical 24 hr Branch capsule dexmethylph Yes [id number] One po at Univers enidate 2-07 noon ity of (FOCALIN) 00:00: [place] 10 mg 00 Medical tablet Branch cetirizine Yes [id number] 10mg Take 1 Tab Univers (ZYRTEC) 10 1-03 by mouth ity of mg tablet 00:00: daily. [place] [facility] dexmethylph Yes One po q Un promise enidate 1-03 am after ity of (FOCALIN 00:00: [place] XR[place] 15 mg 00 Medical 24 hr Branch capsule dexmethylph Yes One po Univ ers enidate 1-03 after ity of (FOCALIN) 00:00: lunch [place] 10 mg 00 Medical tablet Branch dexmethylph Yes One po at U nivers enidate 9-20 noon ity of (FOCALIN) 00:00: [place] 10 mg 00 Medical tablet Branch dexmethylph Yes ONE PO Q Un promise enidate 9-20 AM AFTER ity of (FOCALIN 00:00: BREAKFAST [place] XR) 15 mg 00 Medical 24 hr Branch capsule Immunizations Ordered Immunization Filled Immunization Date Status Commen ts Source Name Name SARS-COV-2 COVID-19 2021-09-06 Completed Unive rsity of PFIZER VACCINE 00:00:00 [facility] SARS-COV-2 COVID-19 2021-02-06 Completed Unive rsity of PFIZER VACCINE 00:00:00 [facility] SARS-COV-2 COVID-19 2021-01-16 Completed Unive rsity of PFIZER VACCINE 00:00:00 [facility] DTAP 2013-04-12 Completed University of 00:00:00 [facility] Polio (IPV/OPV) 2013-04-12 Completed Universit y of 00:00:00 [facility] Pneumococcal 7 2013-04-12 Completed University of Conjugate, PCV7 00:00:00 [facility] ical (Prevnar7) Branch HEPATITIS A 2013-03-15 Completed University of 00:00:00 [facility] Hep B, Adol or Pedi 2013-03-15 Completed Unive rsity of Dosage 00:00:00 [facility] Meningococcal 2013-03-15 Completed University of Polysaccharide 00:00:00 [facility] (groups A, C, Y and Branc h W-135) conjugate vaccine (MCV4P) Pneumococcal 13 2013-01-24 Completed Universit y of Conjugate, PCV13 00:00:00 [facility] dical (Prevnar 13) [place] HIB 4 Dose Schedule 2013-01-24 Completed Unive rsity of 00:00:00 [facility] Hep B, Dtap, Polio 2013-01-24 Completed Univer sity of 00:00:00 [facility] Vital Signs Vital Name Observation Time Observation Value Comments Source Systolic blood 2021-11-02 21:58:00 131 mm[Hg] Univer sity [facility] pressure [facility] Diastolic blood 2021-11-02 21:58:00 82 mm[Hg] [facility] Heart rate 2021-11-02 21:58:00 110 /min [facility] Body height 2021-11-02 21:58:00 165.1 cm [facility] Body weight 2021-11-02 21:58:00 70.897 kg [facility] BMI 2021-11-02 21:58:00 26.01 kg/m2 [facility] Oxygen saturation 2021-11-02 21:58:00 98 /min [facility] in Arterial blood Medical Br anch by Pulse oximetry Procedures Procedure Date / Time Performed Performing Clinician [facility] e COMP. METABOLIC PANEL 2021-11-02 22:40:00 [facility] Gan [id number] Plan of Care Planned Activity Planned Date Details Comments Source Encounters Start End Encounter Admission Attending Care Care Encounter Source Date/Time Date/Time Type Type Clinicians Facility Department ID 2021-11-02 2021-11-02 Office Elvia [facility] [id number] 34 Univers 15:00:00 16:27:02 Visit Micheline oneDrum [id number] it y of [place] [id number] Scooter as PITO?BLEA [id number] Id dical [address] MEDICAL OFFICE BUILDING Results Test Description Test Time Test Comments Results Result Comments Source COMP. METABOLIC PANEL (68318) 2021-11-03 05:07:31 Test Item Value Reference Range Interpretation Comme nts NA (test code = 3431727191) 135 mmol/L 135-145 K (test code = 0962317384) 4.7 mmol/L 3.5-5.0 CL (test code = 4433912264) 97 mmol/L 98-108 L CO2 TOTAL (test code = 1829784156) 32 mmol/L 23-31 H AGAP (test code = 4086074574) 2-16 BUN (test code = 8473537829) 12 mg/dL 7-23 GLUCOSE (test code = 1264545779) 367 mg/dL 70-110 H CREATININE (test code = 0.48 mg/dL 0.60-1.25 L 1990028619) TOTAL BILI (test code = 0.6 mg/dL 0.1-1.7 2247026494) CALCIUM (test code = 4339923064) 9.6 mg/dL 8.6-10.6 T PROTEIN (test code = 4374546052) 7.5 g/dL 6.3-8.2 ALBUMIN (test code = 5363564326) 4.7 g/dL 3.5-5.0 ALK PHOS (test code = 0852452259) 148 U/L 34-122 H ALTv (test code = 1742-6) 89 U/L 5-50 H AST(SGOT) (test code = 1751665044) 57 U/L 13-40 H eGFR (test code = 4982363405) mL/min/1.73m2 CASIE (test code = CASIE) Association of Glomerular Filtration Rate (GFR) and Staging of Kidney Disease* + +-------- + ------+| GFR (mL/min/1.73 m2) ?| With Kidney Damage ?| ?Without Kidney Damage+ +-- + +| ?>90 ?| ?Stage one ?| ? Normal ?+ +------- + -------+| ?60-89 ?| ?Stage two ?| ? Decreased GFR ? + +-------- + ------+| ?30-59 ?| ?Stage three ?| ? Stage three ? + +-------- + ------+| ?15-29 ?| ?Stage four ? | ? Stage four ?+ +------- + -------+| ?<15 (or dialysis) ? ?| ?Stage five ? | ? Stage five ?+ +------- + -------+ *Each stage assumes the associated GFR level has been in effect for at least three months. ?Stages 1 to 5, with or without kidney disease, indicate chronic kidney disease. Notes: Determination of stages one and two (with eGFR >59mL/min/1.73 m2) requires estimation of kidney damage for at least three months as defined by structural or functional abnormalities of the kidney, manifested by either:Pathological abnormalities or Markers of kidney damage (including abnormalities in the composition of the blood or urine or abnormalities in imaging tests). Lab Interpretation (test code = Abnormal 27345-4) [facility]"
[2021-11-03] MEDS ORDERED: NA CHLORIDE 0.9% 2,000 ML ONE (19:21)
[2021-11-03] MEDS ORDERED: ACETAMINOPHEN 500 MG TAB ONE (19:21)
[2021-11-03] MEDS ORDERED: ONDANSETRON 4 MG (ODT) TAB ONE (19:21)
[2021-11-03] MEDS ORDERED: ONDANSETRON 4 MG/2 ML VIAL ONE (19:23)
[2021-11-03 19:47] LABS: Absolute Lymphocytes (CBC) 0.4 K/uL (0.7-4.9); Hematocrit 51.4 % (39.6-49.0); Lymphocytes % 3.2 % (15.3-44.8); MPV 8.5 fL (7.6-11.3); RBC Red Blood Cell Count 5.55 M/uL (4.33-5.43)
[2021-11-03 20:03] LABS: ALT/SGPT 101 U/L (12-78); AST/SGOT 28 U/L (15-37); Albumin 4.4 g/dL (3.4-5.0); Alkaline Phosphatase 113 U/L (45-117); BUN Blood Urea Nitrogen 21 mg/dL (7-18); Bicarbonate 28 mmol/L (21-32); Bilirubin Direct 0.2 mg/dL (0-0.2); Bilirubin Total 0.7 mg/dL (0.2-1.0); Glucose Level 274 mg/dL (74-106); Lipase 59 U/L (73-393); Potassium 3.9 mmol/L (3.5-5.1); Protein, Total 8.5 g/dL (6.4-8.2); Sodium Level 136 mmol/L (136-145)
--- NOTE | 2021-11-03 20:04 | RAD REPORT ---
EXAM DESCRIPTION: CTAbdomen Pelvis W Contrast - 11/03/2021 7:53 pm CLINICAL HISTORY: Abdominal pain. diarrhea;Nausea / vomiting COMPARISON: Abdomen Pelvis W Contrast dated 03/22/2021; Abdomen Pelvis W Contrast dated 11/14/2019 TECHNIQUE: Biphasic CT imaging of the abdomen and pelvis was performed with 100 ml non-ionic IV cont rast. All CT scans are performed using dose optimization technique as appropriate and may include automated exposure control or mA/KV adjustment according to patient size. FINDINGS: The lung bases are clear. The liver demonstrates diffuse fatty infiltration. The spleen, pancreas, adrenal glands and kidneys a re within normal limits. No bowel obstruction, free air, free fluid or abscess. Appendectomy. No evidence of significant lym phadenopathy. No suspicious bony findings. IMPRESSION: No acute intra-abdominal or pelvic finding. Fatty liver.
[2021-11-03 20:45] LABS: Blood Morphology Comment NOT SEEN (NOT SEEN); Platelet Estimate ADEQ; White Blood Cell Scan OK (OK)
[2021-11-03 21:23] LABS: SARS-COV-2 RT PCR POSITIVE (NEGATIVE)
--- NOTE | 2021-11-03 22:03 | EDPHYS ---
Physician Documentation [facility] Name: Sergio Hilton Age: 20 yrs Sex: Male : 2000 Arrival Date: 11/03/2021 Time: 18:45 Bed 13 Private MD: ED Physician Severo Yo HPI: 11/03 19:25 This 20 yrs old Male presents to ER via Ambulatory with complaints of rn Vomiting/Diarrhea, Headache. 19:25 The patient presents to the emergency department with nausea, vomiting, diarrhea. rn Onset: The symptoms/episode began/occurred this morning. Possible causes: unknown. The symptoms are aggravated by nothing. The symptoms are alleviated by nothing. Associated signs and symptoms: Pertinent positives: diarrhea, fever, nausea, vomiting, Pertinent negatives: GI bleeding. Severity of symptoms: At their worst the symptoms were moderate in the emergency department the symptoms are unchanged. The patient has not experienced similar symptoms in the past. The patient has not recently seen a physician. 19:25 Patient reports fever/chills/nausea/vomiting/diarrhea that began earlier today. States rn cannot keep anything down. Denies any known sick contacts. Has not checked his sugar. Is not insulin-dependent. 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 Historical: - Allergies: 18:58 Latex, Natural Rubber; jd3 - Home Meds: 18:58 citalopram oral [Active]; Trazodone Oral [Active]; Metformin Oral [Active]; jd3 - PMHx: 18:58 anger issues; Diabetes - NIDDM; Irritable bowel syndrome; Leukemia; jd3 - PSHx: 18:59 Appendectomy; jd3 - Immunization history:: Adult Immunizations up to date, Client reports receiving the 2nd dose of the Covid vaccine, Flu vaccine is not up to date. - Social history:: Smoking status: Patient denies any tobacco usage or history of. - Family history:: not pertinent. - Hospitalizations: : No recent hospitalization is reported. ROS: 19:25 Constitutional: Positive for fever and chills Eyes: Negative for injury, pain, redness, rn and discharge, ENT: Negative for injury, pain, and discharge, Neck: Negative for injury, pain, and swelling, Cardiovascular: Negative for chest pain, palpitations, and edema, Respiratory: Negative for shortness of breath, cough, wheezing, and pleuritic chest pain, Abdomen/GI: Positive for nausea/vomiting/diarrhea, negative for bleeding Back: Negative for injury and pain, : Negative for injury, bleeding, discharge, and swelling, MS/Extremity: Negative for injury and deformity, Skin: Negative for injury, rash, and discoloration, Neuro: Positive for headache and generalized weakness Exam: 19:25 Constitutional: This is a well developed, well nourished patient who is awake, alert, rn and in no acute distress. Head/Face: Normocephalic, atraumatic. Eyes: Periorbital areas with no swelling, redness, or edema. Cardiovascular: Tachycardic, regular. No pulse deficits Respiratory: Speaking full sentences, unlabored. No increased work of breathing, no retractions or nasal flaring. Abdomen/GI: Soft, non-tender, no masses Skin: Warm, dry MS/ Extremity: Pulses equal, no cyanosis. Neuro: Awake and alert, GCS 15, oriented to person, place, time, and situation. Cranial nerves II-XII grossly intact. Motor strength 5/5 in all extremities. Sensory grossly intact. Cerebellar exam normal. 19:32 ECG was reviewed by the Attending Physician. rn Vital Signs: 18:59 BP 108 / 80; Pulse 147; Resp 18 S; Temp 99.0(TE); Pulse Ox 100% on R/A; Weight 70.76 kg jd3 (R); Height 5 ft. 5 in. (165.10 cm) (R); Pain 10/10; 20:26 BP 119 / 74; Pulse 121; Resp 19; Pulse Ox 100% on R/A; ll3 21:43 BP 113 / 66; Pulse 115; Resp 18; Pulse Ox 100% on R/A; ll3 22:47 BP 113 / 71; Pulse 111; Resp 18; Pulse Ox 100% on R/A; ll3 18:59 Body Mass Index 25.96 (70.76 kg, 165.10 cm) jd3 MDM: 19:05 Patient medically screened. rn 22:01 Differential diagnosis: viral gastroenteritis, gastroenteritis, COVID, flu, rn dehydration, hyperglycemia. Data reviewed: vital signs, nurses notes, lab test result(s), radiologic studies, CT scan, and as a result, I will discharge patient. Counseling: I had a detailed discussion with the patient and/or guardian regarding: the historical points, exam findings, and any diagnostic results supporting the discharge/admit diagnosis, lab results, radiology results, the need for outpatient follow up, to return to the emergency department if symptoms worsen or persist or if there are any questions or concerns that arise at home. Response to treatment: the patient's symptoms have markedly improved after treatment, and as a result, I will discharge patient. Special discussion: I discussed with the patient/guardian in detail that at this point there is no indication for admission to the hospital. It is understood, however, that if the symptoms persist or worsen the patient needs to return immediately for re-evaluation. ED course: Father states has a tomorrow and plans to take him, I recommend quarantine and that he does not attend . Also told him that other household members likely are going to have COVID and can also infect others. . 11/03 19:12 Order name: Basic Metabolic Panel; Complete Time: 20:11 11/03 19:12 Order name: CBC with Diff; Complete Time: 20:56 11/03 19:12 Order name: Hepatic Function; Complete Time: 20:11 11/03 19:12 Order name: Lipase; Complete Time: 20:11 11/03 19:12 Order name: COVID-19/FLU A+B (Document "Date of Onset" if Symptomatic) 11/03 19:49 Order name: Glucose, Ancillary Testing; Complete Time: 20:11 [facility] 11/03 19:12 Order name: EKG; Complete Time: 19:13 11/03 19:14 Order name: CT Abd/Pelvis - IV Contrast Only; Complete Time: 20:11 11/03 19:49 Order name: Glucose, Ancillary Testing [facility] 11/03 20:45 Order name: CBC Smear Scan; Complete Time: 20:56 [facility] 11/03 19:12 Order name: IV Saline Lock; Complete Time: 19:45 11/03 19:12 Order name: Labs collected and sent; Complete Time: 19:45 11/03 19:12 Order name: Glucose Level; Complete Time: 19:45 11/03 19:12 Order name: EKG - Nurse/Tech; Complete Time: 19:45 rn EC:32 Rate is 135 beats/min. Rhythm is regular. QRS is negative in leads I, aVF. DC interval rn is normal. QRS interval is normal. QT interval is normal. No Q waves. T waves are Normal. No ST changes noted. Clinical impression: Sinus tachycardia. Interpreted by me. Reviewed by me. Administered Medications: 19:45 Drug: NS 0.9% 1000 ml Route: IV; Rate: 1000 ml; Site: left antecubital; ll3 22:46 Follow up: IV Status: Completed infusion; IV Intake: 1000ml ll3 19:45 Drug: Tylenol 1000 mg Route: PO; ll3 21:42 Follow up: Response: No adverse reaction ll3 19:45 Drug: Zofran (Ondansetron) 4 mg Route: IVP; Site: left antecubital; ll3 21:42 Follow up: Response: No adverse reaction ll3 21:43 Drug: NS 0.9% 1000 ml Route: IV; Rate: 1000 ml; Site: left antecubital; ll3 22:47 Follow up: Response: No adverse reaction; IV Intake: 1000ml ll3 Disposition Summary: 11/03/21 22:02 Discharge Ordered Location: Home rn Problem: new rn Symptoms: have improved rn Condition: Stable rn Diagnosis - SARS-associated coronavirus as the cause of diseases classified elsewhere rn - Vomiting, unspecified rn - Diarrhea, unspecified rn - Dehydration rn - Hyperglycemia, unspecified rn Followup: rn - With: Private Physician - When: As needed - Reason: Recheck today's complaints, Re-evaluation by your physician Discharge Instructions: - Discharge Summary Sheet rn - Diarrhea, Adult rn - Nausea and Vomiting, Adult rn - COVID-19 rn - 10 Things You Can Do to Manage Your COVID-19 Symptoms at Home - [facility] [place] rn - Viral Illness, Adult rn Forms: - Medication Reconciliation Form rn - Thank You Letter rn - Antibiotic varnish blender - Prescription Opioid Use rn Prescriptions: - ondansetron 4 mg Oral tablet,disintegrating - place 1 tablet by TRANSLINGUAL route every 8 hours As needed; 15 tablet; rn Refills: 0, Product Selection Permitted Signatures: Dispatcher [employer] EDMS Severo Yo MD MD rn Davies, Jonathon, RN RN Perez Garcia RN RN ll3 Corrections: (The following items were deleted from the chart) 18:59 18:58 PSHx: None; jd3 jd3
--- NOTE | 2021-11-03 22:03 | ER ---
Nurse's Notes [facility] Name: Sergio Hilton Age: 20 yrs Sex: Male : 2000 Arrival Date: 11/03/2021 Time: 18:45 Bed 13 Private MD: Diagnosis: SARS-associated coronavirus as the cause of diseases classified elsewhere;Vomiting, unspecified;Diarrhea, unspecified;Dehydration;Hyperglycemia, unspecified Presentation: 11/03 18:57 Chief complaint: Patient states: "I have been throwing up all day and having nausea and jd3 vomiting. I don't know if it is because of my diabetes or what.". Coronavirus screen: At this time, the client does not indicate any symptoms associated with coronavirus-19. Ebola Screen: No symptoms or risks identified at this time. Initial Sepsis Screen: Does the patient meet any 2 criteria? No. Patient's initial sepsis screen is negative. Does the patient have a suspected source of infection? No. Patient's initial sepsis screen is negative. Risk Assessment: Do you want to hurt yourself or someone else? Patient reports no desire to harm self or others. Onset of symptoms was November 03, 2021. 18:57 Method Of Arrival: Ambulatory jd3 18:57 Acuity: YURI 3 jd3 Triage Assessment: 19:01 Pain: Complains of pain in abdomen Quality of pain is described as sharp. GI: Abdomen ll3 is flat, non-distended, Reports nausea, vomiting. 19:01 General: Appears in no apparent distress. uncomfortable, Behavior is calm, cooperative. ll3 Historical: - Allergies: 18:58 Latex, Natural Rubber; jd3 - Home Meds: 18:58 citalopram oral [Active]; Trazodone Oral [Active]; Metformin Oral [Active]; jd3 - PMHx: 18:58 anger issues; Diabetes - NIDDM; Irritable bowel syndrome; Leukemia; jd3 - PSHx: 18:59 Appendectomy; jd3 - Immunization history:: Adult Immunizations up to date, Client reports receiving the 2nd dose of the Covid vaccine, Flu vaccine is not up to date. - Social history:: Smoking status: Patient denies any tobacco usage or history of. - Family history:: not pertinent. - Hospitalizations: : No recent hospitalization is reported. Screenin:47 Abuse screen: Denies threats or abuse. Nutritional screening: No deficits noted. ll3 Tuberculosis screening: No symptoms or risk factors identified. Fall Risk IV access (20 points). Mental Status- Oriented to own ability (0 pts). Total Oseguera Fall Scale indicates No Risk (0-24 pts). Assessment: 18:57 General: See triage . ll3 20:25 GI: Abdomen is flat, non-distended, Abd is soft and non tender X 4 quads. Reports ll3 nausea, vomiting. 20:26 Reassessment: Patient appears in no apparent distress at this time. No changes from ll3 previously documented assessment. Patient and/or family updated on plan of care and expected duration. Pain level reassessed. Patient is alert, oriented x 3, equal unlabored respirations, skin warm/dry/pink. 21:43 Reassessment: Patient appears in no apparent distress at this time. No changes from ll3 previously documented assessment. Patient and/or family updated on plan of care and expected duration. Pain level reassessed. Patient is alert, oriented x 3, equal unlabored respirations, skin warm/dry/pink. 22:47 Reassessment: Patient appears in no apparent distress at this time. No changes from ll3 previously documented assessment. Patient and/or family updated on plan of care and expected duration. Pain level reassessed. Patient is alert, oriented x 3, equal unlabored respirations, skin warm/dry/pink. Vital Signs: 18:59 BP 108 / 80; Pulse 147; Resp 18 S; Temp 99.0(TE); Pulse Ox 100% on R/A; Weight 70.76 kg jd3 (R); Height 5 ft. 5 in. (165.10 cm) (R); Pain 10/10; 20:26 BP 119 / 74; Pulse 121; Resp 19; Pulse Ox 100% on R/A; ll3 21:43 BP 113 / 66; Pulse 115; Resp 18; Pulse Ox 100% on R/A; ll3 22:47 BP 113 / 71; Pulse 111; Resp 18; Pulse Ox 100% on R/A; ll3 18:59 Body Mass Index 25.96 (70.76 kg, 165.10 cm) jd3 ED Course: 18:45 Patient arrived in ED. as 18:58 Triage completed. jd3 19:00 Arm band placed on. jd3 19:05 Severo Yo MD is Attending Physician. rn 19:20 Perez Bruno, JOEL is Primary Nurse. ll3 19:52 CT Abd/Pelvis - IV Contrast Only In Process Unspecified. EDMS 22:47 Patient has correct armband on for positive identification. Bed in low position. Call ll3 light in reach. Side rails up X 1. Adult w/ patient. 22:47 No provider procedures requiring assistance completed. IV discontinued, intact, ll3 bleeding controlled, No redness/swelling at site. Pressure dressing applied. Administered Medications: 19:45 Drug: NS 0.9% 1000 ml Route: IV; Rate: 1000 ml; Site: left antecubital; ll3 22:46 Follow up: IV Status: Completed infusion; IV Intake: 1000ml ll3 19:45 Drug: Tylenol 1000 mg Route: PO; ll3 21:42 Follow up: Response: No adverse reaction ll3 19:45 Drug: Zofran (Ondansetron) 4 mg Route: IVP; Site: left antecubital; ll3 21:42 Follow up: Response: No adverse reaction ll3 21:43 Drug: NS 0.9% 1000 ml Route: IV; Rate: 1000 ml; Site: left antecubital; ll3 22:47 Follow up: Response: No adverse reaction; IV Intake: 1000ml ll3 Intake: 22:46 IV: 1000ml; Total: 1000ml. ll3 22:47 IV: 1000ml; Total: 2000ml. ll3 Outcome: 22:02 Discharge ordered by . rn 22:47 Discharged to home ambulatory. ll3 22:47 Condition: stable 22:47 Discharge instructions given to patient, family, Instructed on discharge instructions, follow up and referral plans. medication usage, Demonstrated understanding of instructions, follow-up care, medications, Prescriptions given X 1. 22:51 Patient left the ED. ll3 Signatures: Dispatcher [employer] EDAK Yee Joe as Seevro Yo MD MD rn Davies, Jonathon, RN RN jPerez Bruner RN RN ll3 Corrections: (The following items were deleted from the chart) 18:59 18:58 PSHx: None; jd3 jd3 19:01 18:59 Resp 18bpm; Spontaneous; 70.76 kg; Height 5 ft. 5 in.; BMI: 25.9; Pain 07/18; jd3 [facility] 20:25 20:25 General: See triage . [place] [id number] : 19:00 Pain: Complains of pain in abdomen Quality of pain is described as sharp, [place] [id number] 19:00 GI: Abdomen is flat, non-distended, Reports nausea, vomiting, [place] [id number]
[2021-11-03 22:56] VITALS: TEMP 99; O2SAT 100
[2021-11-03 22:59] VITALS: BP 113/71
== END 2021-11-03 22:51 | disposition home or self-care (01) ==
LOC: ER 18:44
DX: U07.1 COVID-19 (principal); E86.0 Dehydration; E11.65 Type 2 diabetes mellitus with hyperglycemia; R19.7 Diarrhea, unspecified; Z91.040 Latex allergy status; Z91.048 Other nonmedicinal substance allergy status
CPT/HCPCS: 85025; 80048; 36415; 82947; 80076; 83690; 0240U; 74177; Q9967; J7030; J2405; 93005; 96361; 96374; 99283

== ENCOUNTER 2022-02-06 20:22 | Emergency (ER) | payer OTHER ==
--- OUTSIDE RECORDS SUMMARY | 2022-02-06 20:26 | XMS REPORT | Continuity of Care Document ---
:[address] [facility] t Address [address] [place] [address] Dr. Gaxi[address] [place] [address] Care Team Providers Name Role Phone ANENE Primary Care Physician Unavailable Anekathi DRILLER AND BROACHER Attending Clinician ANENE Attending Clinician Unavailable Payers Payer Name Policy Type Policy Number Effective Date Expiration Date S ource Problems Condition Condition Condition Status Onset Resolution Last Treating Co mments Source Name Details Category Date Date Treatment Clinician Date Bone Bone Disease Active [facility] marrow marrow -18 [place] 00 Medical 04/22/2011 04/22/2011 Bran ch Blood Blood Disease Active Overview: Univer s transfusio transfusio Formattin ity of n without n without g of this [place] reported reported note Medica l diagnosis diagnosis might be Br anch different from the original. 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 Leukemia Leukemia Disease Active Unive rs [facility] of [place] [facility] ALL (acute ALL (acute Disease [...] Propensi Active Rash Redness Univers ty to 18 to site ity of adverse 00:00: where [place] reaction 00 latex Medical s touches Branch LATEX DRUG Active Med Rash Univers INGREDI 18 ity of 00:00: [place] [facility] Social History Social Habit Start Date Stop Date Quantity Comments Source Exposure to 2021-12-06 2022-01-05 Not sure [facility] SARS-CoV-2 00:00:00 10:24:00 [facility] (event) Branch Alcohol intake 2022-01-05 2022-01-05 Current University of 00:00:00 00:00:00 non-drinker of [facility] alcohol Branch (finding) Tobacco use and 2013-01-24 2013-01-24 Never used Universit y of exposure 00:00:00 00:00:00 [facility] Tobacco Comment 2013-01-24 2013-01-24 Family smokes Univer sity of 00:00:00 00:00:00 outside [facility] Sex Assigned At 2000 2000 Universit y of 00:00:00 00:00:00 [facility] Smoking Status Start Date Stop Date Source Never smoker [facility] Medications Ordered Filled Start Stop Current Ordering Indication Dosage Frequency Signature Comments Components Source Medication Medication Date Date Medication? Clinician (SIG) Name Name rosuvastati Yes [id number] 20mg Take 1 Univers n 20 mg 4-27 tablet by ity of tablet 00:00: mouth at [place] 00 bedtime. Medical MUST BE Branch SEEN FOR FURTHER REFILLS cephALEXin Yes [id number] 500mg Take 1 Univers (KEFLEX) 3-30 capsule by ity o f 500 mg 00:00: mouth 4 [place] capsule 00 (four) Medical times Branch daily. hydrocortis Yes [id number] Apply to Univers one 2.5 % 3-30 area(s) 2 ity o f cream 00:00: (two) [place] 00 times Medical daily. Branch lisinopriL Yes [id number] 2.5mg Take 1 Univers 2.5 mg 3-22 tablet by ity of tablet 00:00: mouth [place] 00 daily. Medical Branch semaglutide Yes [id number] 1{tbl} Take 1 Univers (RYBELSUS) 3-22 tablet by ity of 3 mg Tab 00:00: mouth [place] 00 daily. Medical Branch lisinopriL Yes [id number] 2.5mg Take 1 Univers 2.5 mg 3-22 tablet by ity of tablet 00:00: mouth [place] 00 daily. Medical Branch semaglutide Yes [id number] 1{tbl} Take 1 Univers (RYBELSUS) 3-22 tablet by ity of 3 mg Tab 00:00: mouth [place] 00 daily. Medical Branch glipiZIDE Yes [id number] 10mg Take 1 U nivers XL 10 mg 24 3-21 tablet by ity of hr tablet 00:00: mouth [place] 00 daily with Medical breakfast. Branch glipiZIDE Yes [id number] 10mg Take 1 U nivers XL 10 mg 24 3-21 tablet by ity of hr tablet 00:00: mouth [place] 00 daily with Medical breakfast. Branch rosuvastati 2021- No [id number] 20mg Take 1 Univers n 20 mg 1-25 04-26 tablet by ity of tablet 00:00: 04:59 mouth at [place] 00 :00 bedtime Medical for 90 Branch days. ivermectin Yes [id number] 13.5mg Take 4.5 Univers 3 mg tablet 1-12 tablets by it y of 00:00: mouth [place] 00 weekly. Medical Branch ivermectin Yes [id number] 13.5mg Take 4.5 Univers 3 mg tablet 1-12 tablets by it y of 00:00: mouth [place] 00 weekly. Medical Branch triamcinolo Yes [id number] Apply to Univers ne 1-10 area(s) 2 ity of acetonide 00:00: (two) [place] 0.1 % 00 times Medical ointment daily. Branch triamcinolo Yes [id number] Apply to Univers ne 1-10 area(s) 2 ity of acetonide 00:00: (two) [place] 0.1 % 00 times Medical ointment daily. Branch clobetasoL 2020-10 Yes [id number] Apply to Univers 0.05 % 2-27 area(s) 2 ity of ointment 00:00: (two) [place] 00 times Medical daily. Branch clobetasoL 2020-10 Yes [id number] Apply to Univers 0.05 % 2-27 area(s) 2 ity of ointment 00:00: (two) [place] 00 times Medical daily. Branch trazodone 2020-10 Yes Take by Univ ers HCl 1-29 mouth. ity of (TRAZODONE 13:30: [place] ORAL) Medical Branch citalopram 2020-10 Yes 10mg Take 10 mg U nivers 10 mg -29 by mouth ity of tablet 13:30: daily. Medical Branch trazodone 2020-10 Yes Take by Univ ers HCl 1-29 mouth. ity of (TRAZODONE 13:30: [place] ORAL) Medical Branch citalopram 2020-10 Yes 10mg Take 10 mg U nivers 10 mg 29 by mouth ity of tablet 13:30: daily. Medical Branch dicyclomine 2017-10 Yes 10mg Take 10 mg Univers 10 mg 1-26 by mouth. ity of capsule 00:00: Medical Branch dicyclomine 2017-10 Yes 10mg Take 10 mg Univers 10 mg 1-26 by mouth. ity of capsule 00:00: Medical Branch dexmethylph 2013-0 Yes [id number] 15mg Take 1 Cap Univers enidate 2-07 by mouth ity of (FOCALIN 00:00: daily. [place] XR) 15 mg 00 Medical 24 hr Branch capsule dexmethylph 2013-0 Yes [id number] One po at Univers enidate 2-07 noon ity of (FOCALIN) 00:00: [place] 10 mg 00 Medical tablet Branch dexmethylph 2013-0 Yes [id number] 15mg Take 1 Cap Univers enidate 2-07 by mouth ity of (FOCALIN 00:00: daily. [place] XR) 15 mg 00 Medical 24 hr Branch capsule dexmethylph 2013-0 Yes [id number] One po at Univers enidate 2-07 noon ity of (FOCALIN) 00:00: [place] 10 mg 00 Medical tablet Branch cetirizine 2013-0 Yes [id number] 10mg Take 1 Tab Univers (ZYRTEC) 10 1-03 by mouth ity of mg tablet 00:00: daily. Medical Branch dexmethylph 2013-0 Yes One po q Un promise enidate 1-03 am after ity of (FOCALIN 00:00: [place] XR[place] 15 mg 00 Medical 24 hr Branch capsule dexmethylph 2013-0 Yes One po Univ ers enidate 1-03 after ity of (FOCALIN) 00:00: lunch [place] 10 mg 00 Medical tablet Branch cetirizine Yes [id number] 10mg Take 1 Tab Univers (ZYRTEC) 10 1-03 by mouth ity of mg tablet 00:00: daily. Medical Branch dexmethylph Yes One po q [...] hr Branch capsule dexmethylph Yes One po at U nivers [...] Completed Unive rsity of PFIZER VACCINE 00:00:00 [facility] SARS-COV-2 COVID-19 2021-09-06 Completed Unive rsity of PFIZER VACCINE 00:00:00 [facility] SARS-COV-2 COVID-19 2021-02-06 Completed Unive rsity of PFIZER VACCINE 00:00:00 [facility] SARS-COV-2 COVID-19 2021-02-06 Completed Unive rsity of PFIZER VACCINE 00:00:00 [facility] SARS-COV-2 COVID-19 2021-01-16 Completed Unive rsity of PFIZER VACCINE 00:00:00 [facility] SARS-COV-2 COVID-19 2021-01-16 Completed Unive rsity of PFIZER VACCINE 00:00:00 [facility] DTAP 2013-04-12 Completed University of 00:00:00 [facility] Polio (IPV/OPV) 2013-04-12 Completed Universit y of 00:00:00 [facility] Pneumococcal 7 2013-04-12 Completed University of Conjugate, PCV7 00:00:00 [facility] ical (Prevnar7) Branch DTAP 2013-04-12 Completed University of 00:00:00 [facility] Polio (IPV/OPV) 2013-04-12 Completed Universit y of 00:00:00 [facility] Pneumococcal 7 2013-04-12 Completed University of Conjugate, PCV7 00:00:00 [facility] ical (Prevnar7) Branch HEPATITIS A 2013-03-15 Completed University of 00:00:00 [facility] Hep B, Adol or Pedi 2013-03-15 Completed Unive rsity of Dosage 00:00:00 [facility] Meningococcal 2013-03-15 Completed University of Polysaccharide 00:00:00 [facility] florencio (groups A, C, Y and Branc h W-135) conjugate vaccine (MCV4P) HEPATITIS A 2013-03-15 Completed University of 00:00:00 [facility] Hep B, Adol or Pedi 2013-03-15 Completed Unive rsity of Dosage 00:00:00 [facility] Meningococcal 2013-03-15 Completed University of Polysaccharide 00:00:00 [facility] florencio (groups A, C, Y and Branc h W-135) conjugate vaccine (MCV4P) Pneumococcal 13 2013-01-24 Completed Universit y of Conjugate, PCV13 00:00:00 [facility] dical (Prevnar 13) Branch HIB 4 Dose Schedule 2013-01-24 Completed Unive rsity of 00:00:00 [facility] Hep B, Dtap, Polio 2013-01-24 Completed Univer sity of 00:00:00 [facility] Pneumococcal 13 2013-01-24 Completed Universit y of Conjugate, PCV13 00:00:00 [facility] dical (Prevnar 13) Branch HIB 4 Dose Schedule 2013-01-24 Completed Unive rsity of 00:00:00 [facility] Hep B, Dtap, Polio 2013-01-24 Completed Univer sity of 00:00:00 [facility] Procedures This patient has no known procedures. Encounters Start End Encounter Admission Attending Care Care Encounter Source Date/Time Date/Time Type Type Clinicians Facility Department ID 2022-02-02 2022[facility]02-02 [id number] Univers 00:00:00 00:00:00 [employer] [id number] it y of [place] [id number] Scooter as PITO?BLEA [id number] [address] OFFICE [facility] 2022-01-28 2022-01-28 Outpatient Pee [facility] [id number] Univers 11:30:00 11:30:00 EMRE gant [facility] 2021-12-31 2021-12-31 [facility] [id number] Univers 00:00:00 00:00:00 [employer] [id number] it y of [place] [id number] Scooter as PITO?BLEA [id number] [address] MEDICAL OFFICE BUILDING 2021-12-30 2021-12-30 Outpatient Pee TREJO [facility] [id number] Univers 11:00:00 11:00:00 EMRE gant [facility] Results This patient has no known results.
[2022-02-06] MEDS ORDERED: NA CHLORIDE 0.9% 1,000 ML ONE (21:58)
[2022-02-06] MEDS ORDERED: ONDANSETRON 4 MG/2 ML VIAL ONE (21:58)
[2022-02-06] MEDS ORDERED: FAMOTIDINE 20 MG/2 ML VIAL IV ONE (21:58)
[2022-02-06 22:23] LABS: Absolute Lymphocytes (CBC) 1.8 K/uL (0.7-4.9); Hematocrit 46.1 % (39.6-49.0); Lymphocytes % 16.5 % (15.3-44.8); MPV 9.1 fL (7.6-11.3); RBC Red Blood Cell Count 5.22 M/uL (4.33-5.43)
[2022-02-06 22:36] LABS: ALT/SGPT 63 U/L (12-78); AST/SGOT 19 U/L (15-37); Albumin 4.4 g/dL (3.4-5.0); Alkaline Phosphatase 122 U/L (45-117); BUN Blood Urea Nitrogen 15 mg/dL (7-18); Bicarbonate 29 mmol/L (21-32); Bilirubin Total 0.7 mg/dL (0.2-1.0); Glucose Level 252 mg/dL (74-106); Lipase 73 U/L (73-393); Potassium 3.3 mmol/L (3.5-5.1); Protein, Total 8.5 g/dL (6.4-8.2); Sodium Level 136 mmol/L (136-145)
[2022-02-06 22:56] LABS: Urine Blood Trace-intact (Negative); Urine Glucose 3+ (Negative); Urine Protein 2+ (Negative); Urine Specific Gravity >=1.030 (1.005-1.030)
[2022-02-06 23:35] LABS: Urine Bacteria <20 /HPF (NONE SEEN); Urine Mucus 1+ /HPF (NONE SEEN); Urine RBC <5 /HPF (NONE SEEN)
--- NOTE | 2022-02-07 01:37 | ER ---
Nurse's Notes [facility] Name: Sergio Hilton Age: 21 yrs Sex: Male : 2000 Arrival Date: 02/06/2022 Time: 20:25 Bed 24 Private MD: Diagnosis: Vomiting;Diarrhea, unspecified;Abdominal pain, Generalized;Type 1 diabetes mellitus with hyperglycemia;Hypokalemia Presentation: 02/06 20:41 Chief complaint: Patient states: "I have been throwing up since this morning, unable to ab2 keep anything down and my stomach hurts." Pt c/o abdominal pain, n/v/d. Coronavirus screen: Vaccine status: Patient reports receiving the 2nd dose of the covid vaccine. Client denies travel out of the [place] in the last 14 days. At this time, the client does not indicate any symptoms associated with coronavirus-19. Ebola Screen: Patient negative for fever greater than or equal to 101.5 degrees Fahrenheit, and additional compatible Ebola Virus Disease symptoms Patient denies exposure to infectious person. Patient denies travel to an Ebola-affected area in the 21 days before illness onset. No symptoms or risks identified at this time. Initial Sepsis Screen: Does the patient meet any 2 criteria? No. Patient's initial sepsis screen is negative. Does the patient have a suspected source of infection? No. Patient's initial sepsis screen is negative. Risk Assessment: Do you want to hurt yourself or someone else? Patient reports no desire to harm self or others. Onset of symptoms is unknown. 20:41 Method Of Arrival: Ambulatory ab2 20:41 Acuity: YURI 3 ab2 Triage Assessment: 20:43 General: Appears in no apparent distress. uncomfortable, Behavior is calm, cooperative, ab2 appropriate for age. Pain: Complains of pain in abdomen. Neuro: Level of Consciousness is awake, alert, obeys commands, Oriented to person, place, time, situation, Appropriate for age. Cardiovascular: Reports None. Respiratory: Airway is patent Respiratory effort is even, unlabored, Respiratory pattern is regular, symmetrical. GI: Abdomen is round Reports lower abdominal pain, upper abdominal pain, cramping, diarrhea, intolerance of fluids, intolerance of food, nausea, vomiting. : No deficits noted. No signs and/or symptoms were reported regarding the genitourinary system. Derm: Skin is intact, is healthy with good turgor. Historical: - Allergies: 20:43 Latex, Natural Rubber; ab2 - PMHx: 20:43 Diabetes - NIDDM; Irritable bowel syndrome; Leukemia; ab2 - PSHx: 20:43 Appendectomy; ab2 - Immunization history:: Adult Immunizations up to date. - Social history:: Smoking status: Patient denies any tobacco usage or history of. Screenin:27 Abuse screen: Denies threats or abuse. Nutritional screening: No deficits noted. bb Tuberculosis screening: No symptoms or risk factors identified. Fall Risk None identified. Assessment: 21:27 General: Appears in no apparent distress. uncomfortable, Behavior is calm, cooperative. bb Pain: Denies pain. Neuro: Level of Consciousness is awake, alert, obeys commands, Oriented to person, place, time, situation. Cardiovascular: Capillary refill < 3 seconds Patient's skin is warm and dry. Respiratory: Airway is patent Respiratory effort is even, unlabored, Respiratory pattern is regular. GI: Bowel sounds present X 4 quads. Abd is soft and non tender X 4 quads. Reports nausea, vomiting. Derm: Skin is pink, warm \\T\\ dry. Musculoskeletal: Circulation, motion, and sensation intact. 22:36 Reassessment: Patient is alert, oriented x 3, equal unlabored respirations, skin bb warm/dry/pink. IV site intact, patent with fluids infusing awaiting CT scan. 02/07 00:09 Reassessment: Patient is alert, oriented x 3, equal unlabored respirations, skin bb warm/dry/pink. pt awaiting diagnostic results, IV site intact. 01:49 Reassessment: Patient is alert, oriented x 3, equal unlabored respirations, skin bb warm/dry/pink. pt given gatorade for PO challenge Patient states feeling better. 02:15 Reassessment: Patient is alert, oriented x 3, equal unlabored respirations, skin bb warm/dry/pink. pt states he is a little nauseated after drinking the gatorade Dr Sheikh notified pt medicated see DEC. Pt verbalized understanding of and agrees to plan of care discharge instructions given pt ambulated with steady gait to exit. Vital Signs: 02/06 20:41 BP 136 / 84; Pulse 110; Resp 16; Temp 97.8; Pulse Ox 100% ; Weight 72.57 kg; Height 5 ab2 ft. 5 in. (165.10 cm); Pain 5/10; 21:27 BP 130 / 92; Pulse 95; Resp 16 S; Pulse Ox 98% on R/A; bb 22:36 BP 127 / 86; Pulse 102; Resp 16 S; Pulse Ox 97% on R/A; bb 02/07 00:09 BP 121 / 85; Pulse 91; Resp 16 S; Pulse Ox 100% on R/A; bb 01:30 BP 112 / 81; Pulse 91; Resp 16; Pulse Ox 97% on R/A; bb 02/06 20:41 Body Mass Index 26.63 (72.57 kg, 165.10 cm) ab2 ED Course: 02/06 20:25 Patient arrived in ED. bp1 20:43 Triage completed. ab2 20:46 Arm band placed on right wrist. ab2 21:16 Ulises Sheikh MD is Attending Physician. anjelica 21:27 Michelle Yung RN is Primary Nurse. bb 21:27 Patient has correct armband on for positive identification. Placed in gown. Bed in low bb position. Call light in reach. Pulse ox on. NIBP on. 22:09 Initial lab(s) drawn, by ED staff, sent to lab. Inserted saline lock: 20 gauge in left bb antecubital area, using aseptic technique. Blood collected. 22:57 Urine collected: clean catch specimen, clear. bb 23:16 CT Abd/Pelvis - IV Contrast Only In Process Unspecified. EDMS 02/07 02:16 No provider procedures requiring assistance completed. IV discontinued, intact, bb bleeding controlled, No redness/swelling at site. Pressure dressing applied. Administered Medications: 02/06 22:09 Drug: NS 0.9% 1000 ml Route: IV; Rate: 1 bolus; Site: left antecubital; bb 23:10 Follow up: IV Status: Completed infusion; IV Intake: 1000ml bb 22:09 Drug: Zofran (Ondansetron) 4 mg Route: IVP; Site: left antecubital; bb 22:56 Follow up: Response: No adverse reaction bb 22:11 Drug: Pepcid (famotidine) 20 mg Route: IVP; Site: left antecubital; bb 22:56 Follow up: Response: No adverse reaction 02/07 02:08 Drug: Zofran (Ondansetron) 4 mg Route: IVP; Site: left antecubital; bb 02:15 Follow up: Response: Medication administered at discharge. bb Point of Care Testing: Blood Glucose: 02/06 20:45 Blood Glucose: 246 mg/dL; ab2 Ranges: Intake: 23:10 IV: 1000ml; Total: 1000ml. bb Outcome: 02/07 01:36 Discharge ordered by MD. dejesus 02:16 Discharged to home ambulatory. bb 02:16 Condition: stable 02:16 Discharge instructions given to patient, Instructed on discharge instructions, follow up and referral plans. medication usage, Demonstrated understanding of instructions, follow-up care, medications, Prescriptions given X 3. 02:16 Patient left the ED. bb Signatures: Dispatcher [employer] EDMS Ulises Sheikh MD MD cha Ballard, Brenda, RN RN Magda Flowers Alexis ab2 Corrections: (The following items were deleted from the chart) 02/06 20:43 20:43 PMHx: anger issues; ab2 ab2
--- NOTE | 2022-02-07 01:37 | EDPHYS ---
Physician Documentation [facility] Name: Sergio Hilton Age: 21 yrs Sex: Male : 2000 Arrival Date: 02/06/2022 Time: 20:25 Bed 24 Private MD: LUIS Physician Ulises Sheikh HPI: 02/07 01:33 This 21 yrs old Male presents to ER via Ambulatory with complaints of anjelica Abdominal Pain, Vomiting/Diarrhea. 01:33 The patient presents to the emergency department with nausea, vomiting, that is anjelica continuous. Onset: The symptoms/episode began/occurred yesterday. Possible causes: unknown. The symptoms are aggravated by food , The symptoms are alleviated by nothing. remaining still. Associated signs and symptoms: Pertinent positives: abdominal pain, diarrhea, vomiting. Severity of symptoms: At their worst the symptoms were mild in the emergency department the symptoms are unchanged. The patient has experienced similar episodes in the past, a few times. Historical: - Allergies: 02/06 20:43 Latex, Natural Rubber; ab2 - PMHx: 20:43 Diabetes - NIDDM; Irritable bowel syndrome; Leukemia; ab2 - PSHx: 20:43 Appendectomy; ab2 - Immunization history:: Adult Immunizations up to date. - Social history:: Smoking status: Patient denies any tobacco usage or history of. ROS: 02/07 01:34 Constitutional: Negative for fever, chills, and weight loss, Eyes: Negative for injury, anjelica pain, redness, and discharge, ENT: Negative for injury, pain, and discharge, Neck: Negative for injury, pain, and swelling, Cardiovascular: Negative for chest pain, palpitations, and edema, Respiratory: Negative for shortness of breath, cough, wheezing, and pleuritic chest pain, Back: Negative for injury and pain, : Negative for injury, bleeding, discharge, and swelling, MS/Extremity: Negative for injury and deformity, Skin: Negative for injury, rash, and discoloration, Neuro: Negative for headache, weakness, numbness, tingling, and seizure, Psych: Negative for depression, anxiety, suicide ideation, homicidal ideation, and hallucinations, Allergy/Immunology: Negative for hives, rash, and allergies, Endocrine: Negative for neck swelling, polydipsia, polyuria, polyphagia, and marked weight changes, Hematologic/Lymphatic: Negative for swollen nodes, abnormal bleeding, and unusual bruising. Abdomen/GI: Positive for abdominal pain, nausea and vomiting, diarrhea. Exam: 01:34 Constitutional: This is a well developed, well nourished patient who is awake, alert, anjelica and in no acute distress. Head/Face: Normocephalic, atraumatic. Eyes: Pupils equal round and reactive to light, extra-ocular motions intact. Lids and lashes normal. Conjunctiva and sclera are non-icteric and not injected. Cornea within normal limits. Periorbital areas with no swelling, redness, or edema. ENT: Nares patent. No nasal discharge, no septal abnormalities noted. Tympanic membranes are normal and external auditory canals are clear. Oropharynx with no redness, swelling, or masses, exudates, or evidence of obstruction, uvula midline. Mucous membranes moist. Neck: Trachea midline, no thyromegaly or masses palpated, and no cervical lymphadenopathy. Supple, full range of motion without nuchal rigidity, or vertebral point tenderness. No Meningismus. Chest/axilla: Normal chest wall appearance and motion. Nontender with no deformity. No lesions are appreciated. Cardiovascular: Regular rate and rhythm with a normal S1 and S2. No gallops, murmurs, or rubs. Normal PMI, no JVD. No pulse deficits. Respiratory: Lungs have equal breath sounds bilaterally, clear to auscultation and percussion. No rales, rhonchi or wheezes noted. No increased work of breathing, no retractions or nasal flaring. Back: No spinal tenderness. No costovertebral tenderness. Full range of motion. Male : Normal genitalia with no discharge or lesions. Skin: Warm, dry with normal turgor. Normal color with no rashes, no lesions, and no evidence of cellulitis. MS/ Extremity: Pulses equal, no cyanosis. Neurovascular intact. Full, normal range of motion. Neuro: Awake and alert, GCS 15, oriented to person, place, time, and situation. Cranial nerves II-XII grossly intact. Motor strength 5/5 in all extremities. Sensory grossly intact. Cerebellar exam normal. Normal gait. Psych: Awake, alert, with orientation to person, place and time. Behavior, mood, and affect are within normal limits. 01:34 Abdomen/GI: Inspection: abdomen appears normal, Bowel sounds: normal, Palpation: mild abdominal tenderness, in all quadrants, Liver: is firm, Hernia: not appreciated. Vital Signs: 02/06 20:41 BP 136 / 84; Pulse 110; Resp 16; Temp 97.8; Pulse Ox 100% ; Weight 72.57 kg; Height 5 ab2 ft. 5 in. (165.10 cm); Pain 5/10; 21:27 BP 130 / 92; Pulse 95; Resp 16 S; Pulse Ox 98% on R/A; bb 22:36 BP 127 / 86; Pulse 102; Resp 16 S; Pulse Ox 97% on R/A; bb 02/07 00:09 BP 121 / 85; Pulse 91; Resp 16 S; Pulse Ox 100% on R/A; bb 01:30 BP 112 / 81; Pulse 91; Resp 16; Pulse Ox 97% on R/A; bb 02/06 20:41 Body Mass Index 26.63 (72.57 kg, 165.10 cm) ab2 MDM: 02/06 21:[address] Patient medically screened[address] [facility] 02/07 01:34 Differential diagnosis: Nonspecific abd pain, gastritis, pancreatitis, viral anjelica gastroenteritis, gastroenteritis. Data reviewed: vital signs, nurses notes, lab test result(s), radiologic studies, CT scan. Data interpreted: court monitor: rate is 91 beats/min, rhythm is regular, Pulse oximetry: on room air is 91 %. Test interpretation: by ED physician or midlevel provider:. Counseling: I had a detailed discussion with the patient and/or guardian regarding: the historical points, exam findings, and any diagnostic results supporting the discharge/admit diagnosis. 02/06 20:57 Order name: Glucose, Ancillary Testing; Complete Time: 21:22 [facility] 02/06 21:23 Order name: CBC with Diff; Complete Time: 01:[address] [facility] 02/06 21:23 Order name: CMP; Complete Time: 01:[address] [facility] 02/06 21:23 Order name: Lipase; Complete Time: 01:[address] [facility] 02/06 21:23 Order name: Urine Microscopic Only; Complete Time: 01:[address] [facility] 02/06 22:56 Order name: Urine Dipstick-Ancillary; Complete Time: 01:13 [facility] 02/06 21:23 Order name: CT Abd/Pelvis - IV Contrast Only [facility] 02/06 21:23 Order name: IV Saline Lock; Complete Time: 22:[address] [facility] 02/06 21:23 Order name: Labs collected and sent; Complete Time: 22:[address] [facility] 02/06 23:38 Order name: Urine Culture [facility] 02/06 21:23 Order name: Urine Dipstick-Ancillary (obtain specimen); Complete Time: 22:[address] [facility] 02/07 01:33 Order name: PO challenge: juice; Complete Time: 01:49 anjelica Administered Medications: 02/06 22:09 Drug: NS 0.9% 1000 ml Route: IV; Rate: 1 bolus; Site: left antecubital; bb 23:10 Follow up: IV Status: Completed infusion; IV Intake: 1000ml bb 22:09 Drug: Zofran (Ondansetron) 4 mg Route: IVP; Site: left antecubital; bb 22:56 Follow up: Response: No adverse reaction bb 22:11 Drug: Pepcid (famotidine) 20 mg Route: IVP; Site: left antecubital; bb 22:56 Follow up: Response: No adverse reaction 02/07 02:08 Drug: Zofran (Ondansetron) 4 mg Route: IVP; Site: left antecubital; bb 02:15 Follow up: Response: Medication administered at discharge. bb Point of Care Testing: Blood Glucose: 02/06 20:45 Blood Glucose: 246 mg/dL; ab2 Ranges: Critical Glucose Levels:Adult <50 mg/dl or >400 mg/dl <40 mg/dl or >180 mg/dl Disposition Summary: 02/07/22 01:36 Discharge Ordered Location: Home anjelica Problem: new anjelica Symptoms: have improved anjelica Condition: Stable anjelica Diagnosis - Vomiting anjelica - Diarrhea, unspecified anjelica - Abdominal pain, Generalized anjelica - Type 1 diabetes mellitus with hyperglycemia anjelica - Hypokalemia anjelica Followup: anjelica - With: Private Physician - When: 2 - 3 days - Reason: Recheck today's complaints, Continuance of care, Re-evaluation by your physician Discharge Instructions: - Discharge Summary Sheet anjelica - Abdominal Pain, Adult anjelica - Diarrhea, Adult anjelica - Abdominal Pain, Adult, [id number] anjelica - Diarrhea, Adult, [id number] anjelica - Potassium Content of Foods anjelica - Vomiting, Adult anjelica - Hypokalemia anjelica Forms: - Medication Reconciliation Form anjelica - Thank You Letter anjelica - Antibiotic Education anjelica - Prescription Opioid Use anjelica Prescriptions: - Pepcid 20 mg Oral Tablet - take 1 tablet by ORAL route every 12 hours for 10 days; 20 tablet; Refills: 0, [facility] Product Selection Permitted - Zofran 4 mg Oral Tablet - take 1 tablet by ORAL route every 12 hours As needed; 20 tablet; Refills: 0, [facility] Product Selection Permitted - dicyclomine 20 mg Oral Tablet - take 1 tablet by ORAL route 4 times per day; 20 tablet; Refills: 0, Product [facility] Selection Permitted Signatures: Dispatcher [employer] Ulises Barnes MD MD cha Ballard, Brenda, RN RN Hermes Vo Corrections: (The following items were deleted from the chart) 20:43 20:43 PMHx: anger issues; ab2 ab2 21:50 21:23 Urine Test ordered. anjelica mittal 02/07 01:33 01:32 Fluid Challenge ordered. anjelica dejesus
[2022-02-07] MEDS ORDERED: ONDANSETRON 4 MG/2 ML VIAL ONE (02:11)
[2022-02-07 03:16] VITALS: TEMP 97.8
[2022-02-07 03:20] VITALS: BP 112/81; O2SAT 97
--- NOTE | 2022-02-07 14:22 | RAD REPORT ---
EXAM DESCRIPTION: CT - Abdomen Pelvis W Contrast - 02/07/2022 5:19 am CLINICAL HISTORY: 21 years Male Abdominal pain, acute, nonlocalized TECHNIQUE: Contiguous axial images obtained through the abdomen and pelvis following intravenous con trast administration. Coronal and sagittal reformatted images provided. This CT exam was performed according to our departmental dose-optimization program, which includes on e or more of the following dose reduction techniques: automated exposure control, adjustment of the m A and/or kV according to patient size, and/or use of iterative reconstruction technique. COMPARISON: No prior exams provided for comparison. FINDINGS: 1.9 cm focus of hypervascularity to the right of the falciform ligament could represent a flash-filling hemangioma. There is a 1.3 cm low-attenuation focus in the caudate which also appears b enign. The lung bases, biliary tree, gallbladder, pancreas, spleen, adrenal glands, kidneys, urinary bladder , and osseous structures are normal. There is no bowel inflammation, obstruction, free intraperitoneal air, or ascites. Prior appendectomy . IMPRESSION: No acute abdominal or pelvic abnormalities. Electronically signed by: Kylee Eller MD 02/06/2022 11:40 PM CDT Due to temporary technical issues with the PACS/Fluency reporting system, reports are being signed by the in house radiologist without review as a courtesy to ensure prompt reporting. The interpreting r adiologist is fully responsible for the content of the report.
== END 2022-02-07 02:16 | disposition home or self-care (01) ==
LOC: ER 20:22
DX: E10.65 Type 1 diabetes mellitus with hyperglycemia (principal); E87.6 Hypokalemia; R19.7 Diarrhea, unspecified; R10.84 Generalized abdominal pain; Z91.040 Latex allergy status; Z91.048 Other nonmedicinal substance allergy status
CPT/HCPCS: 87088; 85025; 87086; 36415; 82947; 83690; 80053; 74177; Q9967; J7030; J2405 ×2; J3490; 81003; 81015; 96361; 96374; 96375; 99284

== ENCOUNTER 2022-06-16 18:41 | Emergency (ER) | payer OTHER ==
--- OUTSIDE RECORDS SUMMARY | 2022-06-16 18:44 | XMS REPORT | Continuity of Care Document ---
:2000 Author Organization [facility] t Address [address] [place] [address] [address] [place] [address] Care Team Providers Name Role Phone Micheline Nieves Primary Care Physician Kateryna Verduzco MD Attending Clinician Payers Payer Name Policy Type [...] different from the original. ICD10 Diagnosis Term [employer] Utility Leukemia Leukemia Disease Active Unive rs [...] ents Source Name Type Date Date Clinician Permethr Propensi Active Itching Unive rs in ty to 04-29 ity of adverse 00:00: [place] reaction 00 Medical s Branch Latex Propensi Active Rash Redness Univers ty to 5-18 to site ity of adverse 00:00: where [place] reaction 00 latex Medical s touches Branch Pegaspar Propensi Active Hives Pre-medic Uni vers gase ty to 2-25 ate ity of adverse 00:00: peg-aspar [place] reaction 00 aginase Medical s with Branch diphenhyd ramine Social History Social Habit Start Date Stop Date Quantity Comments Source History of Passive smoker University of tobacco use [facility] Exposure to 2022-05-18 2022-05-28 Not sure [facility] SARS-CoV-2 00:00:00 11:38:00 [facility] (event) [place] Alcohol intake 2022-05-28 2022-05-28 Current University of 00:00:00 00:00:00 non-drinker of [facility] alcohol (finding) Branch Tobacco use and 2013-03-15 2013-03-15 Smokeless tobacco Un iversity of exposure 00:00:00 00:00:00 non-user [facility] Tobacco Comment 2013-01-24 2013-01-24 Family smokes Univer sity of 00:00:00 00:00:00 outside [facility] Sex Assigned At [birth year] Universit y of 00:00:00 00:00:00 [facility] Smoking Status Start Date Stop Date Source Never smoked tobacco [facility] Medications Ordered Filled Start Stop Current Ordering Indication Dosage Frequency Signature Comments Components Source Medication Medication Date Date Medication? Clinician (SIG) Name Name doxycycline 2021- Yes [id number] 100mg Take 1 Univers hyclate 100 8-20 08-28 tablet by it y of mg tablet 00:00: 04:59 mouth in [place] 00 :00 the Medical morning Branch and 1 tablet in the evening. Do all this for 7 days. clobetasoL Yes [id number] Apply to [facility] 0.05 % 8-05 area(s) 2 ity of ointment 00:00: (two) [place] 00 times Medical daily. Branch methylPREDN Yes [id number] Take by [facility] ISolone 7-22 mouth ity of (MEDROL, 00:00: SEE-INSTRU [place] LOLA,) 4 mg 00 CTIONS. Medica l tablets follow [place] package directions lisinopriL Yes [id number] 2.5mg Take 1 Univers 2.5 mg 6-27 tablet by ity of tablet 00:00: mouth [place] 00 daily. Medical Branch Cholecalcif Yes 2{capsu Take 2 U nivers ricardo, 5-29 le} capsules ity of Vitamin D3, 00:00: by mouth [place] 50 mcg 00 daily. Medical (2,000 Branch unit) capsule guanFACINE Yes TAKE 1 Unive rs ER 3 mg 5-29 TABLET BY ity of tablet 00:00: MOUTH [place] 00 NIGHTLY Medical Branch ROSUVASTATI Yes [id number] 20mg TAKE 1 Univers N 20 mg 5-26 TABLET BY ity of tablet 00:00: MOUTH AT [place] [address] BEDTIME. Medical MUST BE Branch SEEN FOR FURTHER REFILLS famotidine Yes TAKE 1 Unive rs 20 mg 5-02 TABLET BY ity of tablet 00:00: MOUTH [place] 00 EVERY 12 Medical HOURS FOR Branch 10 DAYS ondansetron Yes TAKE 1 Univ ers 4 mg tablet 5-02 TABLET BY ity of 00:00: MOUTH [place] 00 EVERY 12 Medical HOURS Branch NEEDED OXcarbazepi Yes 600mg Take 600 U nivers ne 600 mg 4-25 mg by ity of tablet 00:00: mouth 2 [place] (two) Medical times Branch daily. amoxicillin Yes 500mg Take 500 U nivers 500 mg 4-19 mg by ity of capsule 00:00: mouth 3 [place] 00 (three) Medical times Branch daily. ARIPiprazol Yes 5mg Take 5 mg U nivers e 5 mg 4-12 by mouth ity of tablet 00:00: at [place] [address] bedtime. Medical Branch cephALEXin Yes [id number] 500mg Take 1 Univers (KEFLEX) 3-30 capsule by ity o f 500 mg 00:00: mouth 4 [place] capsule 00 (four) Medical times Branch daily. hydrocortis Yes [id number] Apply to Univers one 2.5 % 3-30 area(s) 2 ity o f cream 00:00: (two) [place] [address] times Medical daily. Branch semaglutide Yes [id number] 1{tbl} Take 1 Univers (RYBELSUS) 3-22 tablet by ity of 3 mg Tab 00:00: mouth daily. Medical Branch glipiZIDE Yes [id number] 10mg Take 1 U nivers XL 10 mg 24 3-21 tablet by ity of hr tablet 00:00: mouth daily with Medical breakfast. Branch metformin Yes 750mg Take 750 Uni vers ER 750 mg 3-08 mg by ity of 24 hr 00:00: mouth. [place] tablet 00 Medical Branch ivermectin Yes [id number] 13.5mg Take 4.5 Univers 3 mg tablet 1-12 tablets by it y of 00:00: mouth weekly. Medical Branch triamcinolo Yes [id number] Apply to [facility] ne 1-10 area(s) 2 ity of acetonide 00:00: (two) [place] 0.1 % 00 times Medical ointment daily. Branch trazodone 2020-10 Yes Take by Unive rs HCl -29 mouth. ity of (TRAZODONE 13:30: [place] ORAL) Medical Branch citalopram 2020-10 Yes 10mg Take 10 mg U nivers 10 mg 1-29 by mouth ity of tablet 13:30: daily. Medical Branch dicyclomine 2017-10 Yes 10mg Take 10 mg Univers 10 mg - by mouth. ity of capsule 00:00: [place] Medical Branch dexmethylph Yes [id number] 15mg Take 1 Cap Univers enidate 2-07 by mouth ity of (FOCALIN 00:00: daily. [place] XR) 15 mg Medical 24 hr Branch capsule dexmethylph Yes [id number] One po at Univers enidate 2-07 noon ity of (FOCALIN) 00:00: [place] 10 mg 00 Medical tablet Branch cetirizine Yes [id number] 10mg Take 1 Tab Univers (ZYRTEC) 10 1-03 by mouth ity of mg tablet 00:00: daily. Medical Branch dexmethylph Yes One po q Un promise enidate 1-03 am after ity of (FOCALIN 00:00: [place] XR[place] 15 mg Medical 24 hr Branch capsule dexmethylph Yes [...] Completed Unive rsity of PFIZER VACCINE 00:00:00 [facility] SARS-COV-2 COVID-19 2021-02-06 Completed Unive rsity of PFIZER VACCINE 00:00:00 [facility] SARS-COV-2 COVID-19 2021-01-16 Completed Unive rsity of PFIZER VACCINE 00:00:00 [facility] Branch DTAP 2013-04-12 Completed University of 00:00:00 [facility] Polio (IPV/OPV) 2013-04-12 Completed Universit y of 00:00:00 [facility] Pneumococcal 7 2013-04-12 Completed University of Conjugate, PCV7 00:00:00 [facility] ical (Prevnar7) Branch HEPATITIS A 2013-03-15 Completed University of 00:00:00 [facility] Hep B, Adol or Pedi 2013-03-15 Completed Unive rsity of Dosage 00:00:00 [facility] Meningococcal 2013-03-15 Completed University of Polysaccharide 00:00:00 [facility] (groups A, C, Y and Branc h W-135) conjugate vaccine (MCV4P) Pneumococcal 13 2013-01-24 Completed Universit y of Conjugate, PCV13 00:00:[address] [facility] dical (Prevnar 13) Branch HIB 4 Dose Schedule 2013-01-24 Completed Unive rsity of 00:00:00 [facility] Hep B, Dtap, Polio 2013-01-24 Completed Univer sity of 00:00:00 [facility] Vital Signs Vital Name Observation Time Observation Value Comments Source Systolic blood 2022-05-28 16:41:00 133 mm[Hg] Univer sity of pressure [facility] Diastolic blood 2022-05-28 16:41:00 66 mm[Hg] Unive rsity of pressure [facility] Heart rate 2022-05-28 16:41:00 109 /min [facility] Body temperature 2022-05-28 16:41:00 37 [place] Univ ersity of [facility] Respiratory rate 2022-05-28 16:41:00 16 /[facility] height 2022-05-28 16:41:00 165.1 cm [facility] Body weight 2022-05-28 16:41:00 67.586 kg [facility] BMI 2022-05-28 16:41:00 24.79 kg/m2 [facility] Oxygen saturation in 2022-05-28 16:41:00 99 /min [facility] Arterial blood by [facility] Pulse oximetry Branch Procedures This patient has no known procedures. Encounters Start End Encounter Admission Attending Care Care Encounter Source Date/Time Date/Time Type Type Clinicians Facility Department ID 2022-05-28 2022-05-28 Urgent SANTI Verduzco [id number] Univers 12:00:00 12:00:00 Care [facility] [id number] it y of NEVAEH [id number] [place] PITO?BLEA [id number] Nm noel [address] MEDICAL OFFICE BUILDING Results This patient has no known results.
[2022-06-16 19:22] LABS: Absolute Lymphocytes (CBC) 2.3 K/uL (0.7-4.9); Hematocrit 41.7 % (39.6-49.0); Lymphocytes % 39.2 % (15.3-44.8); MCV 87.5 fL (80-100); MPV 8.9 fL (7.6-11.3); RBC Red Blood Cell Count 4.77 M/uL (4.33-5.43)
[2022-06-16 19:43] LABS: BUN Blood Urea Nitrogen 11 mg/dL (7-18); Bicarbonate 29 mmol/L (21-32); Glomerular Filtration Rate 127 ml/min (=/>90); Sodium Level 133 mmol/L (136-145)
[2022-06-16 19:47] LABS: Potassium 3.3 mmol/L (3.5-5.1)
[2022-06-16 19:49] LABS: Glucose Level 473 mg/dL (74-106)
[2022-06-16] MEDS ORDERED: INSULIN -REGULAR HUMAN 50 UNIT/0.5 ML ML ONE (20:37)
[2022-06-16] MEDS ORDERED: NA CHLORIDE 0.9% 1,000 ML ONE (20:37)
--- NOTE | 2022-06-16 21:25 | ER ---
Nurse's Notes [facility] Name: Sergio Hilton Age: 21 yrs Sex: Male : 2000 Arrival Date: 06/16/2022 Time: 18:43 Bed 3 Private MD: Diagnosis: Hyperglycemia, unspecified Presentation: 06/16 18:53 Chief complaint: Patient states: N/V/Headache since this morning. Pt states "this ld1 happens when my blood sugar is high.". Coronavirus screen: At this time, the client does not indicate any symptoms associated with coronavirus-19. Ebola Screen: No symptoms or risks identified at this time. Initial Sepsis Screen: Does the patient meet any 2 criteria? No. Patient's initial sepsis screen is negative. Does the patient have a suspected source of infection? No. Patient's initial sepsis screen is negative. Risk Assessment: Do you want to hurt yourself or someone else? Patient reports no desire to harm self or others. Onset of symptoms was June 16, 2022. 18:53 Method Of Arrival: Ambulatory ld1 18:53 Acuity: YURI 3 ld1 Triage Assessment: 18:54 General: Appears in no apparent distress. comfortable, Behavior is calm, cooperative, ld1 appropriate for age. Pain: Denies pain. EENT: No signs and/or symptoms were reported regarding the EENT system. Neuro: Level of Consciousness is awake, alert, obeys commands, Oriented to person, place, time, situation. 18:54 Cardiovascular: Capillary refill < 3 seconds Patient's skin is warm and dry. ld1 Respiratory: Airway is patent Respiratory effort is even, unlabored. GI: Abdomen is flat, non-distended. : No signs and/or symptoms were reported regarding the genitourinary system. Derm: No signs and/or symptoms reported regarding the dermatologic system. Musculoskeletal: No signs and/or symptoms reported regarding the musculoskeletal system. Historical: - Allergies: 18:54 Latex, Natural Rubber; ld1 - PMHx: 18:54 Diabetes - NIDDM; Irritable bowel syndrome; Leukemia; ld1 - PSHx: 18:54 Appendectomy; ld1 - Immunization history:: Adult Immunizations up to date, Client reports receiving the 2nd dose of the Covid vaccine. - Social history:: Smoking status: Patient denies any tobacco usage or history of. Patient/guardian denies using alcohol. Screenin:03 Abuse screen: Denies threats or abuse. Nutritional screening: No deficits noted. pt kl noncompliant with diabetic diet. Tuberculosis screening: No symptoms or risk factors identified. Fall Risk None identified. Assessment: 20:00 General: Appears in no apparent distress. comfortable, Behavior is calm, cooperative, kl appropriate for age. Pain: Denies pain. Neuro: No deficits noted. Cardiovascular: No deficits noted. Respiratory: No deficits noted. GI: No deficits noted. No signs and/or symptoms were reported involving the gastrointestinal system. : No deficits noted. No signs and/or symptoms were reported regarding the genitourinary system. EENT: No deficits noted. No signs and/or symptoms were reported regarding the EENT system. Derm: No deficits noted. No signs and/or symptoms reported regarding the dermatologic system. 21:00 Reassessment: Patient appears in no apparent distress at this time. Patient and/or kl family updated on plan of care and expected duration. Pain level reassessed. Patient is alert, oriented x 3, equal unlabored respirations, skin warm/dry/pink. Vital Signs: 18:53 BP 138 / 99; Pulse 117; Resp 18; Temp 97.6(TE); Pulse Ox 99% on R/A; Weight 72.57 kg; ld1 Height 5 ft. 5 in. (165.10 cm); Pain 0/10; 21:02 BP 140 / 90; Pulse 72; Resp 18; Pulse Ox 99% on R/A; kl 18:53 Body Mass Index 26.63 (72.57 kg, 165.10 cm) ld1 ED Course: 18:43 Patient arrived in ED. am2 18:46 Jessica Pantoja FNP-C is [facility]. kb 18:46 Leroy Cervantes DO is Attending Physician. kb 18:54 Triage completed. ld1 18:54 Arm band placed on right wrist. ld1 19:07 Acetone, Serum Sent. kj1 19:07 Basic Metabolic Panel Sent. kj1 19:07 CBC with Diff Sent. kj1 19:07 Inserted saline lock: 20 gauge in left antecubital area, using aseptic technique. Blood kj1 collected. 19:49 Notified Nurse Practitioner and/or Physician Casing Mixer of a critical lab result(s), bb glucose of 473 Jessica Pantoja DIRECTOR OF EVENT SALES notified. 21:45 Patient has correct armband on for positive identification. Bed in low position. Call ll3 light in reach. Side rails up X 1. 21:45 No provider procedures requiring assistance completed. IV discontinued, intact, ll3 bleeding controlled, No redness/swelling at site. Pressure dressing applied. Administered Medications: 20:35 Drug: NS 0.9% 1000 ml Route: IV; Rate: 1000 ml; Site: left antecubital; 21:45 Follow up: Response: No adverse reaction; IV Status: Completed infusion; IV Intake: ll3 1000ml 20:35 Drug: Insulin Regular Human 5 units {Co-Signature: ll3 (Perez Bruno RN).} Route: IVP; Site: left antecubital; 21:45 Follow up: Response: No adverse reaction ll3 21:30 Drug: Potassium Chloride 20 mEq Route: PO; ll3 21:44 Follow up: Response: No adverse reaction ll3 Medication: 21:45 VIS not applicable for this client. ll3 Point of Care Testing: Blood Glucose: 18:54 Blood Glucose: 407 mg/dL; ld1 Ranges: Intake: 21:45 IV: 1000ml; Total: 1000ml. ll3 Outcome: 21:24 Discharge ordered by . kb 21:45 Discharged to home ambulatory. ll3 21:45 Condition: stable 21:45 Discharge instructions given to patient, Instructed on discharge instructions, follow up and referral plans. Demonstrated understanding of instructions, follow-up care. 21:45 Patient left the ED. ll3 Signatures: Jessica Pantoja, HEAT TREAT FURNACE OPERATOR-C HEAT TREAT FURNACE OPERATOR-Raquel Cruz RN RN kl Ballard, Brenda RN RN Kateryna Godinez Kandis kj1 Dibbern, Lauren, RN RN ld1 Perez Bruno RN RN ll3 Perez Bruno RN ll3
--- NOTE | 2022-06-16 21:25 | EDPHYS ---
Physician Documentation [facility] Name: Sergio Hilton Age: 21 yrs Sex: Male : 2000 Arrival Date: 06/16/2022 Time: 18:43 Bed 3 Private MD: ED Physician Leroy Cervantes HPI: 06/16 21:59 This 21 yrs old Male presents to ER via Ambulatory with complaints of High kb Blood Sugar. 21:59 The patient or guardian reports headache, nausea that was potentially precipitated by kb eating, with the patient's symptoms witnessed by no one. Onset: The symptoms/episode began/occurred today. Associated signs and symptoms: Pertinent positives: nausea, headache. Current symptoms: In the emergency department the patient's symptoms are unchanged from the initial presentation. The patient has experienced similar episodes in the past, a few times. The patient has not recently seen a physician. Pt reports headache and nausea which he normally gets when his sugar is high. States he just moved and has been unable to find his monitor so he isn't sure how high it is. States he ate cereal and noodles this morning. Historical: - Allergies: 18:54 Latex, Natural Rubber; ld1 - PMHx: 18:54 Diabetes - NIDDM; Irritable bowel syndrome; Leukemia; ld1 - PSHx: 18:54 Appendectomy; ld1 - Immunization history:: Adult Immunizations up to date, Client reports receiving the 2nd dose of the Covid vaccine. - Social history:: Smoking status: Patient denies any tobacco usage or history of. Patient/guardian denies using alcohol. ROS: 22:02 Constitutional: Negative for fever, chills, and weight loss. kb 22:02 Abdomen/GI: Positive for nausea, Negative for abdominal pain, vomiting. 22:02 Neuro: Positive for headache. 22:02 All other systems are negative. Exam: 22:02 Constitutional: This is a well developed, well nourished patient who is awake, alert, kb and in no acute distress. Head/Face: Normocephalic, atraumatic. ENT: Moist Mucous membranes Cardiovascular: Regular rate and rhythm with a normal S1 and S2. No gallops, murmurs, or rubs. No pulse deficits. Respiratory: Respirations even and unlabored. No increased work of breathing. Talking in full sentences Abdomen/GI: Soft, non-tender. No distention Skin: Warm, dry with normal turgor. Normal color. MS/ Extremity: Pulses equal, no cyanosis. Neurovascular intact. Full, normal range of motion. Neuro: Awake and alert, GCS 15, oriented to person, place, time, and situation. Moves all extremities. Normal gait. Psych: Awake, alert, with orientation to person, place and time. Behavior, mood, and affect are within normal limits. Vital Signs: 18:53 BP 138 / 99; Pulse 117; Resp 18; Temp 97.6(TE); Pulse Ox 99% on R/A; Weight 72.57 kg; ld1 Height 5 ft. 5 in. (165.10 cm); Pain 0/10; 21:02 BP 140 / 90; Pulse 72; Resp 18; Pulse Ox 99% on R/A; kl 18:53 Body Mass Index 26.63 (72.57 kg, 165.10 cm) ld1 MDM: 18:54 Patient medically screened. kb 21:24 Data reviewed: vital signs, nurses notes. Data interpreted: Pulse oximetry: on room air kb is 99 %. Interpretation: normal. Counseling: I had a detailed discussion with the patient and/or guardian regarding: the historical points, exam findings, and any diagnostic results supporting the discharge/admit diagnosis, lab results, the need for outpatient follow up, a family practitioner, to return to the emergency department if symptoms worsen or persist or if there are any questions or concerns that arise at home. 06/16 18:54 Order name: CBC with Diff; Complete Time: 19:29 kb 06/16 18:54 Order name: Basic Metabolic Panel; Complete Time: 19:50 kb 06/16 18:54 Order name: Acetone, Serum; Complete Time: 19:50 kb 06/16 19:05 Order name: Glucose, Ancillary Testing; Complete Time: 19:07 EDMS 06/16 21:21 Order name: Glucose, Ancillary Testing; Complete Time: 21:24 EDMS 06/16 18:54 Order name: IV Start; Complete Time: 19:07 kb Administered Medications: 20:35 Drug: NS 0.9% 1000 ml Route: IV; Rate: 1000 ml; Site: left antecubital; kl 21:45 Follow up: Response: No adverse reaction; IV Status: Completed infusion; IV Intake: ll3 1000ml 20:35 Drug: Insulin Regular Human 5 units {Co-Signature: ll3 (Perez Bruno RN).} Route: IVP; Site: left antecubital; 21:45 Follow up: Response: No adverse reaction ll3 21:30 Drug: Potassium Chloride 20 mEq Route: PO; ll3 21:44 Follow up: Response: No adverse reaction ll3 Point of Care Testing: Blood Glucose: 18:54 Blood Glucose: 407 mg/dL; ld1 Ranges: Critical Glucose Levels:Adult <50 mg/dl or >400 mg/dl <40 mg/dl or >180 mg/dl Disposition Summary: 06/16/22 21:24 Discharge Ordered Location: Home kb Condition: Stable kb Diagnosis - Hyperglycemia, unspecified kb Followup: kb - With: Emergency Department - When: As needed - Reason: Worsening of condition Followup: kb - With: Private Physician - When: 2 - 3 days - Reason: Recheck today's complaints, Continuance of care, Re-evaluation by your physician Discharge Instructions: - Discharge Summary Sheet kb - Hyperglycemia, [id number] kb - Type 2 Diabetes Mellitus, Diagnosis, Adult, [id number] kb Forms: - Medication Reconciliation Form kb - Thank You Letter kb - Antibiotic Education kb - Prescription Opioid Use kb Addendum: 06/19/2022 23:36 Co-signature as Attending Physician, Leroy Cervantes DO I agree with the assessment and m s3 plan of care. Signatures: Dispatcher [employer] Jessica Bryant, DANILO-C PARK SERVICES SPECIALIST-Raquel Cruz, RN Leroy Andrade DO DO ms3 Tammy Carias RN RN ld1 Perez Bruno RN RN ll3 Perez Bruno RN ll3
[2022-06-16] MEDS ORDERED: POTASSIUM CL SA 10 MEQ TAB PO ONE (21:38)
[2022-06-17 00:19] VITALS: TEMP 97.6; O2SAT 99
[2022-06-17 00:21] VITALS: BP 140/90
== END 2022-06-16 21:45 | disposition home or self-care (01) ==
LOC: ER 18:41
DX: E11.65 Type 2 diabetes mellitus with hyperglycemia (principal); Z91.040 Latex allergy status; Z91.048 Other nonmedicinal substance allergy status
CPT/HCPCS: 96361; 85025; 80048; 36415; 82010; 82947 ×2; 96374; 99284; J1815; J7030

== ENCOUNTER 2022-10-29 15:22 | Emergency (ER) | payer OTHER ==
--- OUTSIDE RECORDS SUMMARY | 2022-10-29 15:27 | XMS REPORT | Continuity of Care Document ---
:2000 Author Organization [facility] t Address [address] [place] [address] Dr. [address] [place] [address] Care Team Providers Name Role Phone Micheline Nieves Primary Care Physician KIMBERLY CRUZ Attending Clinician Unavailable Micheline Nieves Attending Clinician Doctor Unassigned, [place] Attending Clinician Unavailable ROSEANNE LEVINE Attending Clinician Unavailable Roseanne Levine MD Attending Clinician MICHELINE GAN Attending Clinician Unavailable Luis Miguel Estrada MD Attending Clinician EbBrett Peacock Attending Clinician Lab, Ang - Brendan Attending Clinician Unavailable Nate Verduzco MD Attending Clinician NATE VERDUZCO Attending Clinician Unavailable BRETT ARCE Attending Clinician Unavailable Magda Dickson Attending Clinician MAGDA LEE Attending Clinician Unavailable Susan Morelos Attending Clinician SUSAN HURT Attending Clinician Unavailable Provider, [facility] Attending Clinician Unavailable CHRISTOPHER TAMAYO Attending Clinician Unavailable Demetri Lake MD Attending Clinician DEMETRI LAKE Attending Clinician Unavailable DEMETRI LAKE Attending Clinician Unavailable Joan Carlson MD Attending Clinician SHERIF HERNANDEZ Attending Clinician Unavailable ROSEANNE LEVINE Admitting Clinician Unavailable Payers Payer Name Policy Type Policy Number Effective Date Expiration Date Lizett nathan FORMERLY [facility] [id number] 2022 PLUS 00:00:00 [facility] [id number] 2018 CHOICE MEDICAID 00:00:00 Problems Condition Condition Condition Status Onset Resolution Last Treating Co mments Source Name Details Category Date Date Treatment Clinician Date Bone Bone Disease Active [facility] marrow marrow 4-18 [place] 00 Medical 04/22/2011 04/22/2011 [facility] Bone Bone Disease Active [facility] marrow marrow 4-18 [place] [place] status Medical 04/22/2011 04/22/2011 [facility] Blood Blood Disease Active Overview: Univer s transfusio transfusio Formatt[place] ity of n without n without g of this [place] reported reported note Medica l diagnosis diagnosis might be Br anch different from the original. ICD10 Diagnosis Term Heat Transfer Technician Utility Leukemia Leukemia Disease Active Unive rs [facility] of [place] [facility] ALL (acute ALL (acute Disease [...] Active Itching Unive rs in ty to 7-22 ity of adverse 00:00: [place] reaction 00 Medical s Branch PERMETHR DRUG Active ITCHING Univers IN INGREDI 7-22 ity of 00:00: [place] 00 Medical Branch Latex Propensi Active Rash Redness Univers ty to 5-18 to site ity of adverse 00:00: where [place] reaction 00 latex Medical s touches Branch LATEX DRUG Active Med Rash Univers INGREDI 5-18 ity of 00:00: [place] 00 Medical Branch Pegaspar Propensi Active Hives Pre-medic Uni vers gase ty to 2-25 ate ity of adverse 00:00: peg-aspar [place] reaction aginase Medical s with Branch diphenhyd ramine PEGASPAR DRUG Active Low Hives 2010- Univers GASE INGREDI 2-25 ity of 00:00: [place] 00 Medical [place] Social History Social Habit Start Date Stop Date Quantity Comments Source History of Passive smoker University of tobacco use [facility] Exposure to 2022-09-27 2022-10-07 Not sure [facility] SARS-CoV-2 00:00:00 14:43:00 [facility] (event) [place] Alcohol intake 2022-08-05 2022-08-05 Current University 00:00:00 00:00:00 non-drinker of [facility] alcohol (finding) [place] Tobacco use and 2022-06-20 2022-06-20 Smokeless tobacco Un iversity of exposure 00:00:00 00:00:00 non-user [facility] Tobacco Comment 2022-06-20 2022-06-20 Family smokes Univer sity of 00:00:00 00:00:00 outside [facility] Sex Assigned At 2000 2000 Universit y of 00:00:00 00:00:00 [facility] Smoking Status Start Date Stop Date Source Never smoked tobacco [facility] Medications Ordered Filled Start Stop Current Ordering Indication Dosage Frequency Signature Comments Components Source Medication Medication Date Date Medication? Clinician (SIG) Name Name lisinopriL Yes [id number] 2.5mg Take 1 Univers 2.5 mg 1-10 tablet by ity of tablet 00:00: mouth in [place] 00 the Medical morning. Branch metformin 2021-10 Yes [id number] 750mg Take 1 Univers ER 750 mg 2-30 tablet by ity o f 24 hr 00:00: mouth [place] tablet 00 daily with Medical breakfast. Branch glipiZIDE 2021-10 Yes [id number] 20mg Take 2 U nivers XL 10 mg 24 2-30 tablets by it y of hr tablet 00:00: mouth [place] 00 daily with Medical breakfast. Branch LISINOPRIL 2021-10 Yes [id number] TAKE 1 Univers 2.5 mg 0-13 TABLET BY ity of tablet 00:00: MOUTH [place] 00 EVERY DAY Medical [place] LISINOPRIL 2021-10 Yes [id number] TAKE 1 Univers 2.5 mg 0-13 TABLET BY ity of tablet 00:00: MOUTH [place] 00 EVERY DAY Medical [place] LISINOPRIL 2021-10 Yes [id number] TAKE 1 Univers 2.5 mg 0-13 TABLET BY ity of tablet 00:00: MOUTH [place] 00 EVERY DAY Medical Branch LISINOPRIL 2021-10 Yes [id number] TAKE 1 Univers 2.5 mg 0-13 TABLET BY ity of tablet 00:00: MOUTH [place] 00 EVERY DAY Medical Branch LISINOPRIL 2021-10 Yes [id number] TAKE 1 Univers 2.5 mg 0-13 TABLET BY ity of tablet 00:00: MOUTH [place] 00 EVERY DAY Medical Branch LISINOPRIL 2021-10 Yes [id number] TAKE 1 Univers 2.5 mg 0-13 TABLET BY ity of tablet 00:00: MOUTH [place] 00 EVERY DAY Medical Branch LISINOPRIL 2021-10 Yes [id number] TAKE 1 Univers 2.5 mg 0-13 TABLET BY ity of tablet 00:00: MOUTH [place] 00 EVERY DAY Medical Branch LISINOPRIL 2021-10 Yes [id number] TAKE 1 Univers 2.5 mg 0-13 TABLET BY ity of tablet 00:00: MOUTH [place] 00 EVERY DAY Medical Branch LISINOPRIL 2021-103- No [id number] TAKE 1 Univers 2.5 mg 0-13 01-10 TABLET BY ity of tablet 00:00: 00:00 MOUTH [place] 00 :00 EVERY DAY Medical Branch rosuvastati 0 Yes [id number] 20mg Take 1 Univers n (CRESTOR) 9-27 tablet by ity of 20 mg 00:00: mouth at [place] tablet 00 bedtime. Medical Branch ezetimibe 0 Yes [id number] 10mg Take 1 U nivers 10 mg 9-27 tablet by ity of tablet 00:00: mouth in [place] 00 the Medical morning. Branch rosuvastati 0 Yes [id number] 20mg Take 1 Univers n (CRESTOR) 9-27 tablet by ity of 20 mg 00:00: mouth at [place] tablet 00 bedtime. Medical Branch ezetimibe 0 Yes [id number] 10mg Take 1 U nivers 10 mg 9-27 tablet by ity of tablet 00:00: mouth in [place] 00 the Medical morning. Branch rosuvastati 2021-0 Yes [id number] 20mg Take 1 Univers n (CRESTOR) 9-27 tablet by ity of 20 mg 00:00: mouth at [place] tablet 00 bedtime. Medical Branch ezetimibe 2021-0 Yes [id number] 10mg Take 1 U nivers 10 mg 9-27 tablet by ity of tablet 00:00: mouth in [place] 00 the Medical morning. Branch rosuvastati 2021-0 Yes [id number] 20mg Take 1 Univers n (CRESTOR) 9-27 tablet by ity of 20 mg 00:00: mouth at [place] tablet 00 bedtime. Medical Branch ezetimibe 2021-0 Yes [id number] 10mg Take 1 U nivers 10 mg 9-27 tablet by ity of tablet 00:00: mouth in [place] 00 the Medical morning. Branch rosuvastati 2021-0 Yes [id number] 20mg Take 1 Univers n (CRESTOR) 9-27 tablet by ity of 20 mg 00:00: mouth at [place] tablet 00 bedtime. Medical Branch ezetimibe 2021-0 Yes [id number] 10mg Take 1 U nivers 10 mg 9-27 tablet by ity of tablet 00:00: mouth in [place] the Medical morning. Branch rosuvastati 2021-0 Yes [id number] 20mg Take 1 Univers n (CRESTOR) 9-27 tablet by ity of 20 mg 00:00: mouth at [place] tablet 00 bedtime. Medical Branch ezetimibe 2021-0 Yes [id number] 10mg Take 1 U nivers 10 mg 9-27 tablet by ity of tablet 00:00: mouth in [place] 00 the Medical morning. Branch rosuvastati 2021-0 Yes [id number] 20mg Take 1 Univers n (CRESTOR) 9-27 tablet by ity of 20 mg 00:00: mouth at [place] tablet 00 bedtime. Medical Branch ezetimibe 2021-0 Yes [id number] 10mg Take 1 U nivers 10 mg 9-27 tablet by ity of tablet 00:00: mouth in [place] 00 the Medical morning. Branch rosuvastati 2021-0 Yes [id number] 20mg Take 1 Univers n (CRESTOR) 9-27 tablet by ity of 20 mg 00:00: mouth at [place] tablet 00 bedtime. Medical Branch ezetimibe 2021-0 Yes [id number] 10mg Take 1 U nivers 10 mg 9-27 tablet by ity of tablet 00:00: mouth in [place] 00 the Medical morning. Branch rosuvastati 2021-0 Yes [id number] 20mg Take 1 Univers n (CRESTOR) 9-27 tablet by ity of 20 mg 00:00: mouth at [place] tablet 00 bedtime. Medical Branch ezetimibe 2021-0 Yes [id number] 10mg Take 1 U nivers 10 mg 9-27 tablet by ity of tablet 00:00: mouth in [place] 00 the Medical morning. Branch rosuvastati 2021-0 Yes [id number] 20mg Take 1 Univers n (CRESTOR) 9-27 tablet by ity of 20 mg 00:00: mouth at [place] tablet 00 bedtime. Medical Branch ezetimibe 2021-0 Yes [id number] 10mg Take 1 U nivers 10 mg 9-27 tablet by ity of tablet 00:00: mouth in [place] 00 the Medical morning. Branch rosuvastati 2021-0 Yes [id number] 20mg Take 1 Univers n (CRESTOR) 9-27 tablet by ity of 20 mg 00:00: mouth at [place] tablet 00 bedtime. Medical Branch ezetimibe 0 Yes [id number] 10mg Take 1 U nivers 10 mg 9-27 tablet by ity of tablet 00:00: mouth in [place] 00 the Medical morning. Branch rosuvastati 2021-0 Yes [id number] 20mg Take 1 Univers n (CRESTOR) 9-27 tablet by ity of 20 mg 00:00: mouth at [place] tablet 00 bedtime. [facility] Branch ezetimibe 2021-0 Yes [id number] 10mg Take 1 U nivers 10 mg 9-27 tablet by ity of tablet 00:00: mouth in [place] 00 the Medical morning. Branch icosapent 2021-2021- No [id number] 2g Take 2 Univers ethyL 9-14 10-15 capsules ity of (VASCEPA) 1 00:00: 04:59 by mouth [place] gram 00 :00 in the Medical capsule morning Branch and 2 capsules in the evening. Do all this for 30 days. icosapent 2021-2021- No [id number] 2g Take 2 Univers ethyL 9-14 10-15 capsules ity of (VASCEPA) 1 00:00: 04:59 by mouth [place] gram 00 :00 in the Medical capsule morning Branch and 2 capsules in the evening. Do all this for 30 days. icosapent 2021- No [id number] 2g Take 2 Univers ethyL 9-14 10-15 capsules ity of (VASCEPA) 1 00:00: 04:59 by mouth [place] gram 00 :00 in the Medical capsule morning Branch and 2 capsules in the evening. Do all this for 30 days. icosapent 2021- No [id number] 2g Take 2 Univers ethyL 9-14 10-15 capsules ity of (VASCEPA) 1 00:00: 04:59 by mouth [place] gram 00 :00 in the Medical capsule morning Branch and 2 capsules in the evening. Do all this for 30 days. icosapent 2021- No [id number] 2g Take 2 Univers ethyL 9-14 10-15 capsules ity of (VASCEPA) 1 00:00: 04:59 by mouth [place] gram 00 :00 in the Medical capsule morning Branch and 2 capsules in the evening. Do all this for 30 days. semaglutide Yes [id number] .5mg inject 0.5 Univers (OZEMPIC) 9-12 mg under ity of 0.25 mg or 00:00: the skin [place] as 0.5 mg(2 00 weekly. Medical mg/1.5 mL) Start 0.25 Bra nch PnIj mg weekly for 4 weeks, then 0.5 mg thereafter glipiZIDE Yes [id number] 10mg Take 1 U nivers XL 10 mg 24 9-12 tablet by ity of hr tablet 00:00: mouth [place] 00 daily with Medical breakfast. Branch metformin Yes [id number] 750mg Take 1 Univers ER 750 mg 9-12 tablet by ity o f 24 hr 00:00: mouth [place] tablet 00 daily with Medical breakfast. Branch semaglutide Yes [id number] .5mg inject 0.5 Univers (OZEMPIC) 9-12 mg under ity of 0.25 mg or 00:00: the skin [place] as 0.5 mg(2 00 weekly. Medical mg/1.5 mL) Start 0.25 Bra nch PnIj mg weekly for 4 weeks, then 0.5 mg thereafter glipiZIDE Yes [id number] 10mg Take 1 U nivers XL 10 mg 24 9-12 tablet by ity of hr tablet 00:00: mouth [place] 00 daily with Medical breakfast. Branch metformin 2021-0 Yes [id number] 750mg Take 1 Univers ER 750 mg 9-12 tablet by ity o f 24 hr 00:00: mouth [place] tablet 00 daily with Medical breakfast. Branch semaglutide 2021-0 Yes [id number] .5mg inject 0.5 Univers (OZEMPIC) 9-12 mg under ity of 0.25 mg or 00:00: the skin [place] 0.5 mg(2 00 weekly. Medical mg/1.5 mL) Start 0.25 Bra nch PnIj mg weekly for 4 weeks, then 0.5 mg thereafter glipiZIDE 2021-0 Yes [id number] 10mg Take 1 U nivers XL 10 mg 24 9-12 tablet by ity of hr tablet 00:00: mouth [place] 00 daily with Medical breakfast. Branch metformin 2021-0 Yes [id number] 750mg Take 1 Univers ER 750 mg 9-12 tablet by ity o f 24 hr 00:00: mouth [place] tablet 00 daily with Medical breakfast. Branch semaglutide 2021-0 Yes [id number] .5mg inject 0.5 Univers (OZEMPIC) 9-12 mg under ity of 0.25 mg or 00:00: the skin [place] 0.5 mg(2 00 weekly. Medical mg/1.5 mL) Start 0.25 Bra nch PnIj mg weekly for 4 weeks, then 0.5 mg thereafter glipiZIDE 2021-0 Yes [id number] 10mg Take 1 U nivers XL 10 mg 24 9-12 tablet by ity of hr tablet 00:00: mouth [place] 00 daily with Medical breakfast. Branch metformin 2021-0 Yes [id number] 750mg Take 1 Univers ER 750 mg 9-12 tablet by ity o f 24 hr 00:00: mouth [place] tablet 00 daily with Medical breakfast. Branch semaglutide 2021-0 Yes [id number] .5mg inject 0.5 Univers (OZEMPIC) 9-12 mg under ity of 0.25 mg or 00:00: the skin [place] 0.5 mg(2 00 weekly. Medical mg/1.5 mL) Start 0.25 Bra nch PnIj mg weekly for 4 weeks, then 0.5 mg thereafter glipiZIDE 2021-0 Yes [id number] 10mg Take 1 U nivers XL 10 mg 24 9-12 tablet by ity of hr tablet 00:00: mouth [place] 00 daily with Medical breakfast. Branch metformin 2021-0 Yes [id number] 750mg Take 1 Univers ER 750 mg 9-12 tablet by ity o f 24 hr 00:00: mouth [place] tablet 00 daily with Medical breakfast. Branch semaglutide 2021-0 Yes [id number] .5mg inject 0.5 Univers (OZEMPIC) 9-12 mg under ity of 0.25 mg or 00:00: the skin [place] 0.5 mg(2 00 weekly. Medical mg/1.5 mL) Start 0.25 Bra nch PnIj mg weekly for 4 weeks, then 0.5 mg thereafter glipiZIDE 2021-0 Yes [id number] 10mg Take 1 U nivers XL 10 mg 24 9-12 tablet by ity of hr tablet 00:00: mouth [place] 00 daily with Medical breakfast. Branch metformin 2021-0 Yes [id number] 750mg Take 1 Univers ER 750 mg 9-12 tablet by ity o f 24 hr 00:00: mouth [place] tablet 00 daily with Medical breakfast. Branch semaglutide 2021-0 Yes [id number] .5mg inject 0.5 Univers (OZEMPIC) 9-12 mg under ity of 0.25 mg or 00:00: the [place] 0.5 mg(2 00 weekly. Medical mg/1.5 mL) Start 0.25 Bra nch PnIj mg weekly for 4 weeks, then 0.5 mg thereafter glipiZIDE 2021-0 Yes [id number] 10mg Take 1 U nivers XL 10 mg 24 9-12 tablet by ity of hr tablet 00:00: mouth [place] 00 daily with Medical breakfast. Branch metformin 2021-0 Yes [id number] 750mg Take 1 Univers ER 750 mg 9-12 tablet by ity o f 24 hr 00:00: mouth [place] tablet 00 daily with Medical breakfast. Branch semaglutide 2021-0 Yes [id number] .5mg inject 0.5 Univers (OZEMPIC) 9-12 mg under ity of 0.25 mg or 00:00: the [place] 0.5 mg(2 00 weekly. Medical mg/1.5 mL) Start 0.25 Bra nch PnIj mg weekly for 4 weeks, then 0.5 mg thereafter glipiZIDE 2021-0 Yes [id number] 10mg Take 1 U nivers XL 10 mg 24 9-12 tablet by ity of hr tablet 00:00: mouth [place] 00 daily with Medical breakfast. Branch metformin 2021-0 Yes [id number] 750mg Take 1 Univers ER 750 mg 9-12 tablet by ity o f 24 hr 00:00: mouth [place] tablet 00 daily with Medical breakfast. Branch semaglutide 2021-0 Yes [id number] .5mg inject 0.5 Univers (OZEMPIC) 9-12 mg under ity of 0.25 mg or 00:00: the [place] 0.5 mg(2 00 weekly. Medical mg/1.5 mL) Start 0.25 Bra nch PnIj mg weekly for 4 weeks, then 0.5 mg thereafter glipiZIDE 2021-0 Yes [id number] 10mg Take 1 U nivers XL 10 mg 24 9-12 tablet by ity of hr tablet 00:00: mouth [place] 00 daily with Medical breakfast. Branch metformin 2021-0 Yes [id number] 750mg Take 1 Univers ER 750 mg 9-12 tablet by ity o f 24 hr 00:00: mouth [place] tablet 00 daily with Medical breakfast. Branch semaglutide 2021-0 Yes [id number] .5mg inject 0.5 Univers (OZEMPIC) 9-12 mg under ity of 0.25 mg or 00:00: the [place] 0.5 mg(2 00 weekly. Medical mg/1.5 mL) Start 0.25 Bra nch PnIj mg weekly for 4 weeks, then 0.5 mg thereafter glipiZIDE 2021-0 Yes [id number] 10mg Take 1 U nivers XL 10 mg 24 9-12 tablet by ity of hr tablet 00:00: mouth [place] 00 daily with Medical breakfast. Branch metformin 2021-0 Yes [id number] 750mg Take 1 Univers ER 750 mg 9-12 tablet by ity o f 24 hr 00:00: mouth [place] tablet 00 daily with Medical breakfast. Branch semaglutide 2021-0 Yes [id number] .5mg inject 0.5 Univers (OZEMPIC) 9-12 mg under ity of 0.25 mg or 00:00: the [place] 0.5 mg(2 00 weekly. Medical mg/1.5 mL) Start 0.25 Bra nch PnIj mg weekly for 4 weeks, then 0.5 mg thereafter glipiZIDE 2021-0 Yes [id number] 10mg Take 1 U nivers XL 10 mg 24 9-12 tablet by ity of hr tablet 00:00: mouth [place] 00 daily with Medical breakfast. Branch metformin 2021-0 Yes [id number] 750mg Take 1 Univers ER 750 mg 9-12 tablet by ity o f 24 hr 00:00: mouth [place] tablet 00 daily with Medical breakfast. Branch semaglutide 0 Yes [id number] .5mg inject 0.5 Univers (OZEMPIC) 9-12 mg under ity of 0.25 mg or 00:00: the [place] 0.5 mg(2 00 weekly. Medical mg/1.5 mL) Start 0.25 Bra nch PnIj mg weekly for 4 weeks, then 0.5 mg thereafter glipiZIDE 0 Yes [id number] 10mg Take 1 U nivers XL 10 mg 24 9-12 tablet by ity of hr tablet 00:00: mouth [place] 00 daily with Medical breakfast. Branch metformin 2021-0 Yes [id number] 750mg Take 1 Univers ER 750 mg 9-12 tablet by ity o f 24 hr 00:00: mouth [place] tablet 00 daily with Medical breakfast. Branch semaglutide 0 Yes [id number] .5mg inject 0.5 Univers (OZEMPIC) 9-12 mg under ity of 0.25 mg or 00:00: the [place] 0.5 mg(2 00 weekly. Medical mg/1.5 mL) Start 0.25 Bra nch PnIj mg weekly for 4 weeks, then 0.5 mg thereafter glipiZIDE 2021-0 Yes [id number] 10mg Take 1 U nivers XL 10 mg 24 9-12 tablet by ity of hr tablet 00:00: mouth [place] 00 daily with Medical breakfast. Branch metformin 2021-0 Yes [id number] 750mg Take 1 Univers ER 750 mg 9-12 tablet by ity o f 24 hr 00:00: mouth [place] tablet 00 daily with Medical breakfast. Branch semaglutide 2021-0 Yes [id number] .5mg inject 0.5 Univers (OZEMPIC) 9-12 mg under ity of 0.25 mg or 00:00: the skin [place] 0.5 mg(2 00 weekly. Medical mg/1.5 mL) Start 0.25 [facility] PnIj mg weekly for 4 weeks, then 0.5 mg thereafter clobetasoL 2022-0 Yes [id number] Apply to Univers 0.05 % 8-05 area(s) 2 ity of ointment 00:00: (two) [place] 00 times Medical daily. Branch clobetasoL 2022-0 Yes [id number] Apply to Univers 0.05 % 8-05 area(s) 2 ity of ointment 00:00: (two) [place] 00 times Medical daily. Branch clobetasoL 2022-0 Yes [id number] Apply to Univers 0.05 % 8-05 area(s) 2 ity of ointment 00:00: (two) [place] 00 times Medical daily. Branch clobetasoL 2022-0 Yes [id number] Apply to Univers 0.05 % 8-05 area(s) 2 ity of ointment 00:00: (two) [place] 00 times Medical daily. Branch clobetasoL 2022-0 Yes [id number] Apply to Univers 0.05 % 8-05 area(s) 2 ity of ointment 00:00: (two) [place] 00 times Medical daily. Branch clobetasoL 2022-0 Yes [id number] Apply to Univers 0.05 % 8-05 area(s) 2 ity of ointment 00:00: (two) [place] 00 times Medical daily. Branch clobetasoL 2022-0 Yes [id number] Apply to Univers 0.05 % 8-05 area(s) 2 ity of ointment 00:00: (two) [place] 00 times Medical daily. Branch clobetasoL 2022-0 Yes [id number] Apply to Univers 0.05 % 8-05 area(s) 2 ity of ointment 00:00: (two) [place] 00 times Medical daily. Branch clobetasoL 2022-0 Yes [id number] Apply to Univers 0.05 % 8-05 area(s) 2 ity of ointment 00:00: (two) [place] 00 times Medical daily. Branch clobetasoL 2022-0 Yes [id number] Apply to Univers 0.05 % 8-05 area(s) 2 ity of ointment 00:00: (two) [place] 00 times Medical daily. Branch clobetasoL 2022-0 Yes [id number] Apply to Univers 0.05 % 8-05 area(s) 2 ity of ointment 00:00: (two) [place] 00 times Medical daily. Branch clobetasoL 2022-0 Yes [id number] Apply to Univers 0.05 % 8-05 area(s) 2 ity of ointment 00:00: (two) [place] 00 times Medical daily. Branch clobetasoL 2022-0 Yes [id number] Apply to Univers 0.05 % 8-05 area(s) 2 ity of ointment 00:00: (two) [place] 00 times Medical daily. Branch clobetasoL 2022-0 Yes [id number] Apply to Univers 0.05 % 8-05 area(s) 2 ity of ointment 00:00: (two) [place] 00 times Medical daily. Branch lisinopriL 2-0 Yes [id number] 2.5mg Take 1 Univers 2.5 mg 6-27 tablet by ity of tablet 00:00: mouth [place] 00 daily. Medical Branch lisinopriL 2-0 Yes [id number] 2.5mg Take 1 Univers 2.5 mg 6-27 tablet by ity of tablet 00:00: mouth [place] 00 daily. Medical Branch lisinopriL 2022-0 Yes [id number] 2.5mg Take 1 Univers 2.5 mg 6-27 tablet by ity of tablet 00:00: mouth [place] 00 daily. Medical Branch lisinopriL 2-0 Yes [id number] 2.5mg Take 1 Univers 2.5 mg 6-27 tablet by ity of tablet 00:00: mouth [place] 00 daily. Medical Branch lisinopriL 2022-0 Yes [id number] 2.5mg Take 1 Univers 2.5 mg 6-27 tablet by ity of tablet 00:00: mouth [place] 00 daily. Medical Branch lisinopriL 2022-0 2022- No [id number] 2.5mg Take 1 Univers 2.5 mg 6-27 10-13 tablet by ity of tablet 00:00: 00:00 mouth [place] 00 :00 daily. Medical Branch Cholecalcif 2-0 Yes 2{capsu Take 2 U nivers ricardo, 5-29 le} capsules ity of Vitamin D3, 00:00: by mouth [place] 50 mcg 00 daily. Medical (2,000 Branch unit) capsule guanFACINE 2-0 Yes TAKE 1 Unive rs ER 3 mg 5-29 TABLET BY ity of tablet 00:00: MOUTH [place] 00 NIGHTLY Medical Branch Cholecalcif 2021-0 Yes 2{capsu Take 2 U nivers ricardo, 5-29 le} capsules ity of Vitamin D3, 00:00: by mouth [place] 50 mcg 00 daily. Medical (2,000 Branch unit) capsule guanFACINE 2021-0 Yes TAKE 1 Unive rs ER 3 mg 5-29 TABLET BY ity of tablet 00:00: MOUTH [place] 00 NIGHTLY Medical Branch Cholecalcif 2021-0 Yes 2{capsu Take 2 U nivers ricardo, 5-29 le} capsules ity of Vitamin D3, 00:00: by mouth [place] 50 mcg 00 daily. Medical (2,000 Branch unit) capsule guanFACINE 2021-0 Yes TAKE 1 Unive rs ER 3 mg 5-29 TABLET BY ity of tablet 00:00: MOUTH [place] 00 NIGHTLY Medical Branch Cholecalcif 2021-0 Yes 2{capsu Take 2 U nivers ricardo, 5-29 le} capsules ity of Vitamin D3, 00:00: by mouth [place] 50 mcg 00 daily. Medical (2,000 Branch unit) capsule guanFACINE 2-0 Yes TAKE 1 Unive rs ER 3 mg 5-29 TABLET BY ity of tablet 00:00: MOUTH [place] 00 NIGHTLY Medical Branch Cholecalcif 2021-0 Yes 2{capsu Take 2 U nivers ricardo, 5-29 le} capsules ity of Vitamin D3, 00:00: by mouth [place] 50 mcg 00 daily. Medical (2,000 Branch unit) capsule guanFACINE 2-0 Yes TAKE 1 Unive rs ER 3 mg 5-29 TABLET BY ity of tablet 00:00: MOUTH [place] 00 NIGHTLY Medical Branch Cholecalcif 2021-0 Yes 2{capsu Take 2 U nivers ricardo, 5-29 le} capsules ity of Vitamin D3, 00:00: by mouth [place] 50 mcg 00 daily. Medical (2,000 Branch unit) capsule guanFACINE 2021-0 Yes TAKE 1 Unive rs ER 3 mg 5-29 TABLET BY ity of tablet 00:00: MOUTH [place] 00 NIGHTLY Medical Branch Cholecalcif 2021-0 Yes 2{capsu Take 2 U nivers ricardo, 5-29 le} capsules ity of Vitamin D3, 00:00: by mouth [place] 50 mcg 00 daily. Medical (2,000 Branch unit) capsule guanFACINE 2021-0 Yes TAKE 1 Unive rs ER 3 mg 5-29 TABLET BY ity of tablet 00:00: MOUTH [place] 00 NIGHTLY Medical Branch Cholecalcif 2021-0 Yes 2{capsu Take 2 U nivers ricardo, 5-29 le} capsules ity of Vitamin D3, 00:00: by mouth [place] 50 mcg 00 daily. Medical (2,000 Branch unit) capsule guanFACINE 2021-0 Yes TAKE 1 Unive rs ER 3 mg 5-29 TABLET BY ity of tablet 00:00: MOUTH [place] NIGHTLY Medical Branch Cholecalcif 2021-0 Yes 2{capsu Take 2 U nivers ricardo, 5-29 le} capsules ity of Vitamin D3, 00:00: by mouth [place] 50 mcg 00 daily. Medical (2,000 Branch unit) capsule guanFACINE 2021-0 Yes TAKE 1 Unive rs ER 3 mg 5-29 TABLET BY ity of tablet 00:00: MOUTH [place] NIGHTLY Medical Branch Cholecalcif 2021-0 Yes 2{capsu Take 2 U nivers ricardo, 5-29 le} capsules ity of Vitamin D3, 00:00: by mouth [place] 50 mcg 00 daily. Medical (2,000 Branch unit) capsule guanFACINE 2021-0 Yes TAKE 1 Unive rs ER 3 mg 5-29 TABLET BY ity of tablet 00:00: MOUTH [place] 00 NIGHTLY Medical Branch Cholecalcif 2021-0 Yes 2{capsu Take 2 U nivers ricardo, 5-29 le} capsules ity of Vitamin D3, 00:00: by mouth [place] 50 mcg 00 daily. Medical (2,000 Branch unit) capsule guanFACINE 2021-0 Yes TAKE 1 Unive rs ER 3 mg 5-29 TABLET BY ity of tablet 00:00: MOUTH [place] 00 NIGHTLY Medical Branch Cholecalcif 2021-0 Yes 2{capsu Take 2 U nivers ricardo, 5-29 le} capsules ity of Vitamin D3, 00:00: by mouth [place] 50 mcg 00 daily. Medical (2,000 Branch unit) capsule guanFACINE 2021-0 Yes TAKE 1 Unive rs ER 3 mg 5-29 TABLET BY ity of tablet 00:00: MOUTH [place] NIGHTLY Medical Branch Cholecalcif 2021-0 Yes 2{capsu Take 2 U nivers ricardo, 5-29 le} capsules ity of Vitamin D3, 00:00: by mouth [place] 50 mcg 00 daily. Medical (2,000 Branch unit) capsule guanFACINE 2021-0 Yes TAKE 1 Unive rs ER 3 mg 5-29 TABLET BY ity of tablet 00:00: MOUTH [place] NIGHTLY Medical Branch Cholecalcif 0 Yes 2{capsu Take 2 U nivers ricardo, 5-29 le} capsules ity of Vitamin D3, 00:00: by mouth [place] 50 mcg 00 daily. Medical (2,000 Branch unit) capsule guanFACINE 2021-0 Yes TAKE 1 Unive rs ER 3 mg 5-29 TABLET BY ity of tablet 00:00: MOUTH [place] 00 NIGHTLY Medical Branch ROSUVASTATI 2021-0 Yes [id number] 20mg TAKE 1 [facility] N 20 mg 5-26 TABLET BY ity of tablet 00:00: MOUTH AT [place] 00 BEDTIME. Medical MUST BE Branch SEEN FOR FURTHER REFILLS ROSUVASTATI 2021-0 Yes [id number] 20mg TAKE 1 Univers N 20 mg 5-26 TABLET BY ity of tablet 00:00: MOUTH AT [place] 00 BEDTIME. Medical MUST BE Branch SEEN FOR FURTHER REFILLS ROSUVASTATI 2021-0 202- No [id number] 20mg TAKE 1 Univers N 20 mg 5-26 -27 TABLET BY ity of tablet 00:00: 00:00 MOUTH AT [place] 00 :00 BEDTIME. Medical MUST BE Branch SEEN FOR FURTHER REFILLS ROSUVASTATI 2021-0 202- No [id number] 20mg TAKE 1 Univers N 20 mg 5-26 09-27 TABLET BY ity of tablet 00:00: 00:00 MOUTH AT [place] 00 :00 BEDTIME. Medical MUST BE Branch SEEN FOR FURTHER REFILLS famotidine 202-0 Yes TAKE 1 Unive rs 20 mg 5-02 TABLET BY ity of tablet 00:00: MOUTH [place] 00 EVERY 12 Medical HOURS FOR Branch 10 DAYS ondansetron 2021-0 Yes TAKE 1 Univ ers 4 mg tablet 5-02 TABLET BY ity of 00:00: MOUTH 00 EVERY 12 Medical HOURS Branch NEEDED famotidine 2022-0 Yes TAKE 1 Unive rs 20 mg 5-02 TABLET BY ity of tablet 00:00: MOUTH [place] 00 EVERY 12 Medical HOURS FOR Branch 10 DAYS ondansetron 2021-0 Yes TAKE 1 Univ ers 4 mg tablet 5-02 TABLET BY ity of 00:00: [facility] 00 EVERY 12 Medical HOURS Branch NEEDED famotidine 2021-0 Yes TAKE 1 Unive rs 20 mg 5-02 TABLET BY ity of tablet 00:00: [facility] 00 EVERY 12 Medical HOURS FOR Branch 10 DAYS ondansetron 2021-0 Yes TAKE 1 Univ ers 4 mg tablet 5-02 TABLET BY ity of 00:00: MOUTH [place] 00 EVERY 12 Medical HOURS Branch NEEDED famotidine 2-0 Yes TAKE 1 Unive rs 20 mg 5-02 TABLET BY ity of tablet 00:00: [facility] 00 EVERY 12 Medical HOURS FOR Branch 10 DAYS ondansetron 2021-0 Yes TAKE 1 Univ ers 4 mg tablet 5-02 TABLET BY ity of 00:00: MOUTH [place] 00 EVERY 12 Medical HOURS Branch NEEDED famotidine 2-0 Yes TAKE 1 Unive rs 20 mg 5-02 TABLET BY ity of tablet 00:00: [facility] 00 EVERY 12 Medical HOURS FOR Branch 10 DAYS ondansetron 2021-0 Yes TAKE 1 Univ ers 4 mg tablet 5-02 TABLET BY ity of 00:00: MOUTH [place] 00 EVERY 12 Medical HOURS Branch NEEDED famotidine 2-0 Yes TAKE 1 Unive rs 20 mg 5-02 TABLET BY ity of tablet 00:00: MOUTH [place] 00 EVERY 12 Medical HOURS FOR Branch 10 DAYS ondansetron 2021-0 Yes TAKE 1 Univ ers 4 mg tablet 5-02 TABLET BY ity of 00:00: MOUTH [place] 00 EVERY 12 Medical HOURS Branch NEEDED famotidine 2-0 Yes TAKE 1 Unive rs 20 mg 5-02 TABLET BY ity of tablet 00:00: MOUTH [place] 00 EVERY 12 Medical HOURS FOR Branch 10 DAYS ondansetron 2022-0 Yes TAKE 1 Univ ers 4 mg tablet 5-02 TABLET BY ity of 00:00: MOUTH [place] 00 EVERY 12 Medical HOURS Branch NEEDED famotidine 2022-0 Yes TAKE 1 Unive rs 20 mg 5-02 TABLET BY ity of tablet 00:00: MOUTH [place] 00 EVERY 12 Medical HOURS FOR Branch 10 DAYS ondansetron 2022-0 Yes TAKE 1 Univ ers 4 mg tablet 5-02 TABLET BY ity of 00:00: MOUTH [place] 00 EVERY 12 Medical HOURS Branch NEEDED famotidine 2022-0 Yes TAKE 1 Unive rs 20 mg 5-02 TABLET BY ity of tablet 00:00: MOUTH [place] 00 EVERY 12 Medical HOURS FOR Branch 10 DAYS ondansetron 2021-0 Yes TAKE 1 Univ ers 4 mg tablet 5-02 TABLET BY ity of 00:00: MOUTH [place] 00 EVERY 12 Medical HOURS Branch NEEDED famotidine 2022-0 Yes TAKE 1 Unive rs 20 mg 5-02 TABLET BY ity of tablet 00:00: MOUTH [place] 00 EVERY 12 Medical HOURS FOR Branch 10 DAYS ondansetron 2-0 Yes TAKE 1 Univ ers 4 mg tablet 5-02 TABLET BY ity of 00:00: MOUTH [place] 00 EVERY 12 Medical HOURS Branch NEEDED famotidine 2022-0 Yes TAKE 1 Unive rs 20 mg 5-02 TABLET BY ity of tablet 00:00: MOUTH [place] 00 EVERY 12 Medical HOURS FOR Branch 10 DAYS ondansetron 2022-0 Yes TAKE 1 Univ ers 4 mg tablet 5-02 TABLET BY ity of 00:00: MOUTH [place] 00 EVERY 12 Medical HOURS Branch NEEDED famotidine 2022-0 Yes TAKE 1 Unive rs 20 mg 5-02 TABLET BY ity of tablet 00:00: MOUTH [place] 00 EVERY 12 Medical HOURS FOR Branch 10 DAYS ondansetron 2-0 Yes TAKE 1 Univ ers 4 mg tablet 5-02 TABLET BY ity of 00:00: MOUTH [place] 00 EVERY 12 Medical HOURS Branch NEEDED famotidine 2022-0 Yes TAKE 1 Unive rs 20 mg 5-02 TABLET BY ity of tablet 00:00: MOUTH [place] 00 EVERY 12 Medical HOURS FOR Branch 10 DAYS ondansetron 2-0 Yes TAKE 1 Univ ers 4 mg tablet 5-02 TABLET BY ity of 00:00: MOUTH EVERY 12 Medical HOURS Branch NEEDED famotidine 2022-0 Yes TAKE 1 Unive rs 20 mg 5-02 TABLET BY ity of tablet 00:00: MOUTH EVERY 12 Medical HOURS FOR Branch 10 DAYS ondansetron 2022-0 Yes TAKE 1 Univ ers 4 mg tablet 5-02 TABLET BY ity of 00:00: MOUTH EVERY 12 Medical HOURS Branch NEEDED OXcarbazepi 2022-0 Yes 600mg Take 600 U nivers ne 600 mg 4-25 mg by ity of tablet 00:00: mouth (two) Medical times Branch daily. OXcarbazepi 2022-0 Yes 600mg Take 600 U nivers ne 600 mg 4-25 mg by ity of tablet 00:00: mouth (two) Medical times Branch daily. OXcarbazepi 2022-0 Yes 600mg Take 600 U nivers ne 600 mg 4-25 mg by ity of tablet 00:00: (two) Medical times Branch daily. OXcarbazepi 2022-0 Yes 600mg Take 600 U nivers ne 600 mg 4-25 mg by ity of tablet 00:00: mouth (two) Medical times Branch daily. OXcarbazepi 2022-0 Yes 600mg Take 600 U nivers ne 600 mg 4-25 mg by ity of tablet 00:[facility]: [facility] Medical times Branch daily. OXcarbazepi 2022-0 Yes 600mg Take 600 U nivers ne 600 mg 4-25 mg by ity of tablet 00:00: mouth (two) Medical times Branch daily. OXcarbazepi 2022-0 Yes 600mg Take 600 U nivers ne 600 mg 4-25 mg by ity of tablet 00:00: mouth (two) Medical times Branch daily. OXcarbazepi 2022-0 Yes 600mg Take 600 U nivers ne 600 mg 4-25 mg by ity of tablet 00:00: mouth (two) Medical times Branch daily. OXcarbazepi 2022-0 Yes 600mg Take 600 U nivers ne 600 mg 4-25 mg by ity of tablet 00:00: mouth (two) Medical times Branch daily. OXcarbazepi 2022-0 Yes 600mg Take 600 U nivers ne 600 mg 4-25 mg by ity of tablet 00:00: mouth 2 [place] (two) Medical times Branch daily. OXcarbazepi 2022-0 Yes 600mg Take 600 U nivers ne 600 mg 4-25 mg by ity of tablet 00:00: mouth 2 [place] (two) Medical times Branch daily. OXcarbazepi 2022-0 Yes 600mg Take 600 U nivers ne 600 mg 4-25 mg by ity of tablet 00:00: mouth 2 [place] (two) Medical times Branch daily. OXcarbazepi 2022-0 Yes 600mg Take 600 U nivers ne 600 mg 4-25 mg by ity of tablet 00:00: mouth [place] (two) Medical times Branch daily. OXcarbazepi 2022-0 Yes 600mg Take 600 U nivers ne 600 mg 4-25 mg by ity of tablet 00:00: mouth [place] (two) Medical times Branch daily. ARIPiprazol 2022-0 Yes 5mg Take 5 mg U nivers e 5 mg 4-12 by mouth ity of tablet 00:00: at [place] [address] bedtime. Medical Branch ARIPiprazol 2022-0 Yes 5mg Take 5 mg U nivers e 5 mg 4-12 by mouth ity of tablet 00:00: at [place] [address] bedtime. Medical Branch ARIPiprazol 2022-0 Yes 5mg Take 5 mg U nivers e 5 mg 4-12 by mouth ity of tablet 00:00: at [place] [address] bedtime. Medical Branch ARIPiprazol 2022-0 Yes 5mg Take 5 mg U nivers e 5 mg 4-12 by mouth ity of tablet 00:00: at [place] [address] bedtime. Medical Branch ARIPiprazol 2022-0 Yes 5mg Take 5 mg U nivers e 5 mg 4-12 by mouth ity of tablet 00:00: at [place] [address] bedtime. Medical Branch ARIPiprazol 2022-0 Yes 5mg Take 5 mg U nivers e 5 mg 4-12 by mouth ity of tablet 00:00: at [place] [address] bedtime. Medical Branch ARIPiprazol 2022-0 Yes 5mg Take 5 mg U nivers e 5 mg 4-12 by mouth ity of tablet 00:00: at [place] [address] bedtime. Medical Branch ARIPiprazol 2-0 Yes 5mg Take 5 mg U nivers e 5 mg 4-12 by mouth ity of tablet 00:00: at [place] [address] bedtime. Medical Branch ARIPiprazol 2-0 Yes 5mg Take 5 mg U nivers e 5 mg 4-12 by mouth ity of tablet 00:00: at [place] [address] bedtime. Medical Branch ARIPiprazol 2-0 Yes 5mg Take 5 mg U nivers e 5 mg 4-12 by mouth ity of tablet 00:00: at [place] [address] bedtime. Medical Branch ARIPiprazol 2-0 Yes 5mg Take 5 mg U nivers e 5 mg 4-12 by mouth ity of tablet 00:00: at [place] [address] bedtime. Medical Branch ARIPiprazol 2-0 Yes 5mg Take 5 mg U nivers e 5 mg 4-12 by mouth ity of tablet 00:00: at [place] [address] bedtime. Medical Branch ARIPiprazol 2-0 Yes 5mg Take 5 mg U nivers e 5 mg 4-12 by mouth ity of tablet 00:00: at [place] [address] bedtime. Medical Branch ARIPiprazol 2-0 Yes 5mg Take 5 mg U nivers e 5 mg 4-12 by mouth ity of tablet 00:00: at [place] [address] bedtime. Medical Branch ivermectin 2021-0 Yes [id number] 13.5mg Take 4.5 Univers 3 mg tablet 1-12 tablets by it y of 00:00: mouth [place] weekly. Medical Branch ivermectin 2-0 Yes [id number] 13.5mg Take 4.5 Univers 3 mg tablet 1-12 tablets by it y of 00:00: mouth [place] weekly. Medical Branch ivermectin 2-0 Yes [id number] 13.5mg Take 4.5 Univers 3 mg tablet 1-12 tablets by it y of 00:00: mouth [place] weekly. Medical Branch ivermectin 2-0 Yes [id number] 13.5mg Take 4.5 Univers 3 mg tablet 1-12 tablets by it y of 00:00: mouth [place] weekly. Medical Branch ivermectin 2-0 Yes [id number] 13.5mg Take 4.5 Univers 3 mg tablet 1-12 tablets by it y of 00:00: mouth [place] 00 weekly. Medical Branch ivermectin 2021-0 Yes [id number] 13.5mg Take 4.5 Univers 3 mg tablet 1-12 tablets by it y of 00:00: mouth [place] 00 weekly. Medical Branch ivermectin 2021-0 Yes [id number] 13.5mg Take 4.5 Univers 3 mg tablet 1-12 tablets by it y of 00:00: mouth [place] 00 weekly. Medical Branch ivermectin 2021-0 Yes [id number] 13.5mg Take 4.5 Univers 3 mg tablet 1-12 tablets by it y of 00:00: mouth [place] 00 weekly. Medical Branch ivermectin 2021-0 Yes [id number] 13.5mg Take 4.5 Univers 3 mg tablet 1-12 tablets by it y of 00:00: mouth [place] 00 weekly. Medical Branch ivermectin 2021-0 Yes [id number] 13.5mg Take 4.5 Univers 3 mg tablet 1-12 tablets by it y of 00:00: mouth [place] 00 weekly. Medical Branch ivermectin 2021-0 Yes [id number] 13.5mg Take 4.5 Univers 3 mg tablet 1-12 tablets by it y of 00:00: mouth [place] 00 weekly. Medical Branch ivermectin 0 Yes [id number] 13.5mg Take 4.5 Univers 3 mg tablet 1-12 tablets by it y of 00:00: mouth [place] 00 weekly. Medical Branch ivermectin 2021-0 Yes [id number] 13.5mg Take 4.5 Univers 3 mg tablet 1-12 tablets by it y of 00:00: mouth [place] 00 weekly. Medical Branch ivermectin 2021-0 Yes [id number] 13.5mg Take 4.5 Univers 3 mg tablet 1-12 tablets by it y of 00:00: mouth [place] 00 weekly. Medical Branch trazodone 2020-10 Yes Take by Unive rs HCl 11-06 mouth. ity of (TRAZODONE 13:30: [place] ORAL) Medical Branch citalopram 2020-10 Yes 10mg Take 10 mg U nivers 10 mg 11-06 by mouth ity of tablet 13:30: daily. [place] 06 Medical Branch trazodone 2020-10 Yes Take by Unive rs HCl 1-29 mouth. ity of (TRAZODONE 13:30: [place] ORAL) Medical Branch citalopram 2020-10 Yes 10mg Take 10 mg U nivers 10 mg 1-29 by mouth ity of tablet 13:30: daily. Medical Branch trazodone 2020-10 Yes Take by Unive rs HCl 11-06 mouth. ity of (TRAZODONE 13:30: [place] ORAL) [facility] Branch citalopram 2020-10 Yes 10mg Take 10 mg U nivers 10 mg 1-29 by mouth ity of tablet 13:30: daily. [facility] Branch trazodone 2020-10 Yes Take by Unive rs HCl 11-06 mouth. ity of (TRAZODONE 13:30: [place] ORAL) [facility] Branch citalopram 2020-10 Yes 10mg Take 10 mg U nivers 10 mg 1-29 by mouth ity of tablet 13:30: daily. [facility] Branch trazodone 2020-10 Yes Take by Unive rs HCl 11-06 mouth. ity of (TRAZODONE 13:30: [place] ORAL) [facility] Branch citalopram 2020-10 Yes 10mg Take 10 mg U nivers 10 mg 1-29 by mouth ity of tablet 13:30: daily. [facility] Branch trazodone 2020-10 Yes Take by Unive rs HCl 11-06 mouth. ity of (TRAZODONE 13:30: [place] ORAL) [facility] Branch citalopram 2020-10 Yes 10mg Take 10 mg U nivers 10 mg 1-29 by mouth ity of tablet 13:30: daily. [facility] Branch trazodone 2020-10 Yes Take by Unive rs HCl 29 mouth. ity of (TRAZODONE 13:30: [place] ORAL) Medical Branch citalopram 2020-10 Yes 10mg Take 10 mg U nivers 10 mg 1-29 by mouth ity of tablet 13:30: daily. [facility] Branch trazodone 2020-10 Yes Take by Unive rs HCl 29 mouth. ity of (TRAZODONE 13:30: [place] ORAL) Medical Branch citalopram 2020-10 Yes 10mg Take 10 mg U nivers 10 mg 1-29 by mouth ity of tablet 13:30: daily. [address] [place] [address] Branch trazodone 2020-10 Yes Take by Unive rs HCl 11-06 mouth. ity of (TRAZODONE 13:30: [place] ORAL) [facility] citalopram 2020-10 Yes 10mg Take 10 mg U nivers 10 mg 1-29 by mouth ity of tablet 13:30: daily. [address] trazodone 2020-10 Yes Take by Unive rs HCl 11-06 mouth. ity of (TRAZODONE 13:30: [place] ORAL) [facility] citalopram 2020-10 Yes 10mg Take 10 mg U nivers 10 mg 1-29 by mouth ity of tablet 13:30: daily. [address] trazodone 2020-10 Yes Take by Unive rs HCl 11-06 mouth. ity of (TRAZODONE 13:30: [place] ORAL) [facility] citalopram 2020-10 Yes 10mg Take 10 mg U nivers 10 mg 1-29 by mouth ity of tablet 13:30: daily. [address] [place] [address] trazodone 2020-10 Yes Take by Unive rs HCl 11-06 mouth. ity of (TRAZODONE 13:30: [place] ORAL) [facility] citalopram 2020-10 Yes 10mg Take 10 mg U nivers 10 mg 1-29 by mouth ity of tablet 13:30: daily. [facility] trazodone 2020-10 Yes Take by Unive rs HCl 11-06 mouth. ity of (TRAZODONE 13:30: [place] ORAL) [facility] citalopram 2020-10 Yes 10mg Take 10 mg U nivers 10 mg 1-29 by mouth ity of tablet 13:30: daily. [address] [place] [address] trazodone 2020-10 Yes Take by Unive rs HCl 11-06 mouth. ity of (TRAZODONE 13:30: [place] ORAL) [facility] citalopram 2020-10 Yes 10mg Take 10 mg U nivers 10 mg 1-29 by mouth ity of tablet 13:30: daily. [address] cetirizine 2014-0 Yes [id number] 10mg Take 1 Tab Univers (ZYRTEC) 10 1-03 by mouth ity of mg tablet 00:00: daily. [place] [facility] cetirizine Yes [id number] 10mg Take 1 Tab Univers (ZYRTEC) 10 1-03 by mouth ity of mg tablet 00:00: daily. [place] [facility] cetirizine Yes [id number] 10mg Take 1 Tab Univers (ZYRTEC) 10 1-03 by mouth ity of mg tablet 00:00: daily. [facility] cetirizine Yes [id number] 10mg Take 1 Tab Univers (ZYRTEC) 10 1-03 by mouth ity of mg tablet 00:00: daily. [place] [facility] cetirizine Yes [id number] 10mg Take 1 Tab Univers (ZYRTEC) 10 1-03 by mouth ity of mg tablet 00:00: daily. [place] [facility] cetirizine Yes [id number] 10mg Take 1 Tab Univers (ZYRTEC) 10 1-03 by mouth ity of mg tablet 00:00: daily. [place] [facility] cetirizine Yes [id number] 10mg Take 1 Tab Univers (ZYRTEC) 10 1-03 by mouth ity of mg tablet 00:00: daily. [place] [facility] cetirizine Yes [id number] 10mg Take 1 Tab Univers (ZYRTEC) 10 1-03 by mouth ity of mg tablet 00:00: daily. [place] [facility] cetirizine Yes [id number] 10mg Take 1 Tab Univers (ZYRTEC) 10 1-03 by mouth ity of mg tablet 00:00: daily. [place] [facility] cetirizine Yes [id number] 10mg Take 1 Tab Univers (ZYRTEC) 10 1-03 by mouth ity of mg tablet 00:00: daily. [place] [facility] cetirizine Yes [id number] 10mg Take 1 Tab Univers (ZYRTEC) 10 1-03 by mouth ity of mg tablet 00:00: daily. [place] [facility] cetirizine Yes [id number] 10mg Take 1 Tab Univers (ZYRTEC) 10 1-03 by mouth ity of mg tablet 00:00: daily. [address] cetirizine 2014-0 Yes [id number] 10mg Take 1 Tab Univers (ZYRTEC) 10 1-03 by mouth ity of mg tablet 00:00: daily. [address] cetirizine 2014-0 Yes [id number] 10mg Take 1 Tab Univers (ZYRTEC) 10 1-03 by mouth ity of mg tablet 00:00: daily. [address] Immunizations Ordered Immunization Filled Immunization Date Status Commen ts Source Name Name SARS-COV-2 COVID-19 2021-09-06 Completed Unive rsity of PFIZER VACCINE 00:00:00 [facility] SARS-COV-2 COVID-19 2021-09-06 Completed Unive rsity of PFIZER VACCINE 00:00:00 [facility] SARS-COV-2 COVID-19 2021-09-06 Completed Unive rsity of PFIZER VACCINE 00:00:00 [facility] SARS-COV-2 COVID-19 2021-09-06 Completed Unive rsity of PFIZER VACCINE 00:00:00 [facility] SARS-COV-2 COVID-19 2021-09-06 Completed Unive rsity of PFIZER VACCINE 00:00:00 [facility] SARS-COV-2 COVID-19 2021-09-06 Completed Unive rsity of PFIZER VACCINE 00:00:00 [facility] SARS-COV-2 COVID-19 2021-09-06 Completed Unive rsity of PFIZER VACCINE 00:00:00 [facility] SARS-COV-2 COVID-19 2021-09-06 Completed Unive rsity of PFIZER VACCINE 00:00:00 [facility] SARS-COV-2 COVID-19 2021-09-06 Completed Unive rsity of PFIZER VACCINE 00:00:00 [facility] SARS-COV-2 COVID-19 2021-09-06 Completed Unive rsity of PFIZER VACCINE 00:00:00 [facility] SARS-COV-2 COVID-19 2021-09-06 Completed Unive rsity of PFIZER VACCINE 00:00:00 [facility] SARS-COV-2 COVID-19 2021-09-06 Completed Unive rsity of PFIZER VACCINE 00:00:00 [place] [facility] SARS-COV-2 COVID-19 2021-09-06 Completed Unive rsity of PFIZER VACCINE 00:00:00 [facility] Branch SARS-COV-2 COVID-19 2021-09-06 Completed Unive rsity of PFIZER VACCINE 00:00:00 [facility] Branch SARS-COV-2 COVID-19 2021-02-06 Completed Unive rsity of PFIZER VACCINE 00:00:00 [facility] Branch SARS-COV-2 COVID-19 2021-02-06 Completed Unive rsity of PFIZER VACCINE 00:00:00 [facility] Branch SARS-COV-2 COVID-19 2021-02-06 Completed Unive rsity of PFIZER VACCINE 00:00:00 [facility] Branch SARS-COV-2 COVID-19 2021-02-06 Completed Unive rsity of PFIZER VACCINE 00:00:00 [facility] Branch SARS-COV-2 COVID-19 2021-02-06 Completed Unive rsity of PFIZER VACCINE 00:00:00 [facility] Branch SARS-COV-2 COVID-19 2021-02-06 Completed Unive rsity of PFIZER VACCINE 00:00:00 [facility] Branch SARS-COV-2 COVID-19 2021-02-06 Completed Unive rsity of PFIZER VACCINE 00:00:00 [facility] Branch SARS-COV-2 COVID-19 2021-02-06 Completed Unive rsity of PFIZER VACCINE 00:00:00 [facility] Branch SARS-COV-2 COVID-19 2021-02-06 Completed Unive rsity of PFIZER VACCINE 00:00:00 [facility] Branch SARS-COV-2 COVID-19 2021-02-06 Completed Unive rsity of PFIZER VACCINE 00:00:00 [facility] Branch SARS-COV-2 COVID-19 2021-02-06 Completed Unive rsity of PFIZER VACCINE 00:00:00 [facility] Branch SARS-COV-2 COVID-19 2021-02-06 Completed Unive rsity of PFIZER VACCINE 00:00:00 [facility] Branch SARS-COV-2 COVID-19 2021-02-06 Completed Unive rsity of PFIZER VACCINE 00:00:00 [facility] Branch SARS-COV-2 COVID-19 2021-02-06 Completed Unive rsity of PFIZER VACCINE 00:00:00 [facility] SARS-COV-2 COVID-19 2021-01-16 Completed Unive rsity of PFIZER VACCINE 00:00:00 [facility] SARS-COV-2 COVID-19 2021-01-16 Completed Unive rsity of PFIZER VACCINE 00:00:00 [facility] SARS-COV-2 COVID-19 2021-01-16 Completed Unive rsity of PFIZER VACCINE 00:00:00 [facility] SARS-COV-2 COVID-19 2021-01-16 Completed Unive rsity of PFIZER VACCINE 00:00:00 [facility] SARS-COV-2 COVID-19 2021-01-16 Completed Unive rsity of PFIZER VACCINE 00:00:00 [facility] SARS-COV-2 COVID-19 2021-01-16 Completed Unive rsity of PFIZER VACCINE 00:00:00 [facility] SARS-COV-2 COVID-19 2021-01-16 Completed Unive rsity of PFIZER VACCINE 00:00:00 [facility] SARS-COV-2 COVID-19 2021-01-16 Completed Unive rsity of PFIZER VACCINE 00:00:00 [facility] SARS-COV-2 COVID-19 2021-01-16 Completed Unive rsity of PFIZER VACCINE 00:00:00 [facility] SARS-COV-2 COVID-19 2021-01-16 Completed Unive rsity of PFIZER VACCINE 00:00:00 [facility] SARS-COV-2 COVID-19 2021-01-16 Completed Unive rsity of PFIZER VACCINE 00:00:00 [facility] SARS-COV-2 COVID-19 2021-01-16 Completed Unive rsity of PFIZER VACCINE 00:00:00 [facility] SARS-COV-2 COVID-19 2021-01-16 Completed Unive rsity of PFIZER VACCINE 00:00:00 [facility] SARS-COV-2 COVID-19 2021-01-16 Completed Unive rsity of PFIZER VACCINE 00:00:00 [facility] HEPATITIS A 2014-01-23 Completed University of 00:00:00 [facility] Heamophilus Influenza 2014-01-23 Completed Uni versity of B 00:00:00 [facility] HEPATITIS A 2014-01-23 Completed University of 00:00:00 [facility] Heamophilus Influenza 2014-01-23 Completed Uni versity of B 00:00:00 [facility] HEPATITIS A 2014-01-23 Completed University of 00:00:00 [facility] Heamophilus Influenza 2014-01-23 Completed Uni versity of B 00:00:00 [facility] HEPATITIS A 2014-01-23 Completed University of 00:00:00 [facility] Heamophilus Influenza 2014-01-23 Completed Uni versity of B 00:00:00 [facility] HEPATITIS A 2014-01-23 Completed University of 00:00:00 [facility] Heamophilus Influenza 2014-01-23 Completed Uni versity of B 00:00:00 [facility] HEPATITIS A 2014-01-23 Completed University of 00:00:00 [facility] Heamophilus Influenza 2014-01-23 Completed Uni versity of B 00:00:00 [facility] HEPATITIS A 2014-01-23 Completed University of 00:00:00 [facility] Heamophilus Influenza 2014-01-23 Completed Uni versity of B 00:00:00 [facility] HEPATITIS A 2014-01-23 Completed University of 00:00:00 [facility] Heamophilus Influenza 2014-01-23 Completed Uni versity of B 00:00:00 [facility] DTAP 2013-04-12 Completed University of 00:00:00 [facility] Polio (IPV/OPV) 2013-04-12 Completed Universit y of 00:00:00 [facility] Pneumococcal 7 2013-04-12 Completed University of Conjugate, PCV7 00:00:00 [facility] ical (Prevnar7) Branch DTAP 2013-04-12 Completed University of 00:00:00 [facility] Polio (IPV/OPV) 2013-04-12 Completed Universit y of 00:00:00 [facility] Pneumococcal 7 2013-04-12 Completed University of Conjugate, PCV7 00:00:00 [facility] ical (Prevnar7) Branch DTAP 2013-04-12 Completed University of 00:00:00 [facility] Polio (IPV/OPV) 2013-04-12 Completed Universit y of 00:00:00 [facility] Pneumococcal 7 2013-04-12 Completed University of Conjugate, PCV7 00:00:00 [place] [facility] ([facility]7) [facility] 2013-04-12 Completed University of 00:00:00 [facility] Polio (IPV/OPV) 2013-04-12 Completed Universit y of 00:00:00 [facility] Pneumococcal 7 2013-04-12 Completed University of Conjugate, PCV7 00:00:00 [place] [facility] (Pre[facility]ar7) [facility] 2013-04-12 Completed University of 00:00:00 [facility] Polio (IPV/OPV) 2013-04-12 Completed Universit y of 00:00:00 [facility] Pneumococcal 7 2013-04-12 Completed University of Conjugate, PCV7 00:00:00 [place] [facility] (Prevnar7) [facility] 2013-04-12 Completed University of 00:00:00 [facility] Polio (IPV/OPV) 2013-04-12 Completed Universit y of 00:00:00 [facility] Pneumococcal 7 2013-04-12 Completed University of Conjugate, PCV7 00:00:00 [facility] ical (Prevnar7) Branch [facility] 2013-04-12 Completed University of 00:00:00 [facility] Polio (IPV/OPV) 2013-04-12 Completed Universit y of 00:00:00 [facility] Pneumococcal 7 2013-04-12 Completed University of Conjugate, PCV7 00:00:00 [facility] ical (Prevnar7) Branch [facility] 2013-04-12 Completed University of 00:00:00 [facility] Polio (IPV/OPV) 2013-04-12 Completed Universit y of 00:00:00 [facility] Pneumococcal 7 2013-04-12 Completed University of Conjugate, PCV7 00:00:00 [facility] ical (Prevnar7) Branch [facility] 2013-04-12 Completed University of 00:00:00 [facility] Polio (IPV/OPV) 2013-04-12 Completed Universit y of 00:00:00 [facility] Pneumococcal 7 2013-04-12 Completed University of Conjugate, PCV7 00:00:00 [place] [facility] (Pre[facility]ar7) [facility] 2013-04-12 Completed University of 00:00:00 [facility] Polio (IPV/OPV) 2013-04-12 Completed Universit y of 00:00:00 [facility] Pneumococcal 7 2013-04-12 Completed University of Conjugate, PCV7 00:00:00 [facility] ical (Prevnar7) Branch DTAP 2013-04-12 Completed University of 00:00:00 [facility] Polio (IPV/OPV) 2013-04-12 Completed Universit y of 00:00:00 [facility] Pneumococcal 7 2013-04-12 Completed University of Conjugate, PCV7 00:00:00 [facility] DTAP 2013-04-12 Completed University of 00:00:00 [facility] Polio (IPV/OPV) 2013-04-12 Completed Universit y of 00:00:00 [facility] Pneumococcal 7 2013-04-12 Completed University of Conjugate, PCV7 00:00:00 [facility] (Prevnar7) Branch DTAP 2013-04-12 Completed University of 00:00:00 [facility] Polio (IPV/OPV) 2013-04-12 Completed Universit y of 00:00:00 [facility] Pneumococcal 7 2013-04-12 Completed University of Conjugate, PCV7 00:00:00 [facility] (Prevnar7) Branch DTAP 2013-04-12 Completed University of 00:00:00 [facility] Polio (IPV/OPV) 2013-04-12 Completed Universit y of 00:00:00 [facility] Pneumococcal 7 2013-04-12 Completed University of Conjugate, PCV7 00:00:00 [facility] (Prevnar7) Branch HEPATITIS A 2013-03-15 Completed University of 00:00:00 [facility] Hep B, Adol or Pedi 2013-03-15 Completed Unive rsity of Dosage 00:00:00 [facility] Meningococcal 2013-03-15 Completed University of Polysaccharide 00:00:00 [place] [facility] (groups A, C, Y and Branc h W-135) conjugate vaccine (MCV4P) HEPATITIS A 2013-03-15 Completed University of 00:00:00 [facility] Hep B, Adol or Pedi 2013-03-15 Completed Unive rsity of Dosage 00:00:00 [facility] Meningococcal 2013-03-15 Completed University of Polysaccharide 00:00:00 [place] [facility] (groups A, C, Y and Branc h W-135) conjugate vaccine (MCV4P) HEPATITIS A 2013-03-15 Completed University of 00:00:00 [facility] Hep B, Adol or Pedi 2013-03-15 Completed Unive rsity of Dosage 00:00:00 [facility] Meningococcal 2013-03-15 Completed University of Polysaccharide 00:00:00 [place] [facility] (groups A, C, Y and Branc h W-135) conjugate vaccine (MCV4P) HEPATITIS A 2013-03-15 Completed University of 00:00:00 [facility] Hep B, Adol or Pedi 2013-03-15 Completed Unive rsity of Dosage 00:00:00 [facility] Meningococcal 2013-03-15 Completed University of Polysaccharide 00:00:00 [place] [facility] (groups A, C, Y and Branc h W-135) conjugate vaccine (MCV4P) HEPATITIS A 2013-03-15 Completed University of 00:00:00 [facility] Hep B, Adol or Pedi 2013-03-15 Completed Unive rsity of Dosage 00:00:00 [facility] Meningococcal 2013-03-15 Completed University of Polysaccharide 00:00:00 [place] [facility] (groups A, C, Y and Branc h W-135) conjugate vaccine (MCV4P) HEPATITIS A 2013-03-15 Completed University of 00:00:00 [facility] Hep B, Adol or Pedi 2013-03-15 Completed Unive rsity of Dosage 00:00:00 [facility] Meningococcal 2013-03-15 Completed University of Polysaccharide 00:00:00 [place] [facility] (groups A, C, Y and Branc h W-135) conjugate vaccine (MCV4P) HEPATITIS A 2013-03-15 Completed University of 00:00:00 [facility] Hep B, Adol or Pedi 2013-03-15 Completed Unive rsity of Dosage 00:00:00 [facility] Meningococcal 2013-03-15 Completed University of Polysaccharide 00:00:00 [place] [facility] (groups A, C, Y and Branc h W-135) conjugate vaccine (MCV4P) HEPATITIS A 2013-03-15 Completed University of 00:00:00 [facility] Hep B, Adol or Pedi 2013-03-15 Completed Unive rsity of Dosage 00:00:00 [facility] Meningococcal 2013-03-15 Completed University of Polysaccharide 00:00:00 [place] [facility] (groups A, C, Y and Branc h W-135) conjugate vaccine (MCV4P) HEPATITIS A 2013-03-15 Completed University of 00:00:00 [facility] Hep B, Adol or Pedi 2013-03-15 Completed Unive rsity of Dosage 00:00:00 [facility] Meningococcal 2013-03-15 Completed University of Polysaccharide 00:00:00 [place] [facility] (groups A, C, Y and Branc h W-135) conjugate vaccine (MCV4P) HEPATITIS A 2013-03-15 Completed University of 00:00:00 [facility] Hep B, Adol or Pedi 2013-03-15 Completed Unive rsity of Dosage 00:00:00 [facility] Meningococcal 2013-03-15 Completed University of Polysaccharide 00:00:00 [place] [facility] (groups A, C, Y and Branc h W-135) conjugate vaccine (MCV4P) HEPATITIS A 2013-03-15 Completed University of 00:00:00 [facility] Hep B, Adol or Pedi 2013-03-15 Completed Unive rsity of Dosage 00:00:00 [facility] Meningococcal 2013-03-15 Completed University of Polysaccharide 00:00:00 [place] [facility] (groups A, C, Y and Branc h W-135) conjugate vaccine (MCV4P) HEPATITIS A 2013-03-15 Completed University of 00:00:00 [facility] Hep B, Adol or Pedi 2013-03-15 Completed Unive rsity of Dosage 00:00:00 [facility] Meningococcal 2013-03-15 Completed University of Polysaccharide 00:00:00 [place] [facility] (groups A, C, Y and Branc h W-135) conjugate vaccine (MCV4P) HEPATITIS A 2013-03-15 Completed University of 00:00:00 [facility] Hep B, Adol or Pedi 2013-03-15 Completed Unive rsity of Dosage 00:00:00 [facility] Meningococcal 2013-03-15 Completed University of Polysaccharide 00:00:00 [place] [facility] (groups A, C, Y and Branc h W-135) conjugate vaccine (MCV4P) HEPATITIS A 2013-03-15 Completed University of 00:00:00 [facility] Hep B, Adol or Pedi 2013-03-15 Completed Unive rsity of Dosage 00:00:00 [facility] Meningococcal 2013-03-15 Completed University of Polysaccharide 00:00:00 [place] [facility] (groups A, C, Y and Branc h W-135) conjugate vaccine (MCV4P) Pneumococcal 13 2013-01-24 Completed Universit y of Conjugate, PCV13 00:00:00 [facility] dical (Prevnar 13) Branch HIB 4 Dose Schedule 2013-01-24 Completed Unive rsity of 00:00:00 [facility] Hep B, Dtap, Polio 2013-01-24 Completed Univer sity of 00:00:00 [facility] Pneumococcal 13 2013-01-24 Completed Universit y of Conjugate, PCV13 00:00:00 [facility] dical (Prevnar 13) Branch HIB 4 Dose Schedule 2013-01-24 Completed Unive rsity of 00:00:00 [facility] Hep B, Dtap, Polio 2013-01-24 Completed Univer sity of 00:00:00 [facility] Pneumococcal 13 2013-01-24 Completed Universit y of Conjugate, PCV13 00:00:00 [facility] dical (Prevnar 13) Branch HIB 4 Dose Schedule 2013-01-24 Completed Unive rsity of 00:00:00 [facility] Hep B, Dtap, Polio 2013-01-24 Completed Univer sity of 00:00:00 [facility] Pneumococcal 13 2013-01-24 Completed Universit y of Conjugate, PCV13 00:00:00 [facility] dical (Prevnar 13) Branch HIB 4 Dose Schedule 2013-01-24 Completed Unive rsity of 00:00:00 [facility] Hep B, Dtap, Polio 2013-01-24 Completed Univer sity of 00:00:00 [facility] Pneumococcal 13 2013-01-24 Completed Universit y of Conjugate, PCV13 00:00:00 [facility] dical (Prevnar 13) Branch HIB 4 Dose Schedule 2013-01-24 Completed Unive rsity of 00:00:00 [facility] Hep B, Dtap, Polio 2013-01-24 Completed Univer sity of 00:00:00 [facility] Pneumococcal 13 2013-01-24 Completed Universit y of Conjugate, PCV13 00:00:00 [facility] dical (Prevnar 13) Branch HIB 4 Dose Schedule 2013-01-24 Completed Unive rsity of 00:00:00 [facility] Hep B, Dtap, Polio 2013-01-24 Completed Univer sity of 00:00:00 [facility] Pneumococcal 13 2013-01-24 Completed Universit y of Conjugate, PCV13 00:00:00 [place] [facility] (Prevnar 13) [facility] HIB 4 Dose Schedule 2013-01-24 Completed Unive rsity of 00:00:00 [facility] Hep B, Dtap, Polio 2013-01-24 Completed Univer sity of 00:00:00 [facility] Pneumococcal 13 2013-01-24 Completed Universit y of Conjugate, PCV13 00:00:00 [facility] dical (Prevnar 13) Branch HIB 4 Dose Schedule 2013-01-24 Completed Unive rsity of 00:00:00 [facility] Hep B, Dtap, Polio 2013-01-24 Completed Univer sity of 00:00:00 [facility] Pneumococcal 13 2013-01-24 Completed Universit y of Conjugate, PCV13 00:00:00 [facility] dical (Prevnar 13) Branch HIB 4 Dose Schedule 2013-01-24 Completed Unive rsity of 00:00:00 [facility] Hep B, Dtap, Polio 2013-01-24 Completed Univer sity of 00:00:00 [facility] Pneumococcal 13 2013-01-24 Completed Universit y of Conjugate, PCV13 00:00:00 [facility] dical (Prevnar 13) Branch HIB 4 Dose Schedule 2013-01-24 Completed Unive rsity of 00:00:00 [facility] Hep B, Dtap, Polio 2013-01-24 Completed Univer sity of 00:00:00 [facility] Pneumococcal 13 2013-01-24 Completed Universit y of Conjugate, PCV13 00:00:00 [facility] dical (Prevnar 13) Branch HIB 4 Dose Schedule 2013-01-24 Completed Unive rsity of 00:00:00 [facility] Hep B, Dtap, Polio 2013-01-24 Completed Univer sity of 00:00:00 [facility] Pneumococcal 13 2013-01-24 Completed Universit y of Conjugate, PCV13 00:00:00 [facility] dical (Prevnar 13) Branch HIB 4 Dose Schedule 2013-01-24 Completed Unive rsity of 00:00:00 [facility] Hep B, Dtap, Polio 2013-01-24 Completed Univer sity of 00:00:00 [facility] Pneumococcal 13 2013-01-24 Completed Universit y of Conjugate, PCV13 00:00:00 [place] [facility] (Prevnar 13) Branch HIB 4 Dose Schedule 2013-01-24 Completed Unive rsity of 00:00:00 [facility] Hep B, Dtap, Polio 2013-01-24 Completed Univer sity of 00:00:00 [facility] Pneumococcal 13 2013-01-24 Completed Universit y of Conjugate, PCV13 00:00:00 [place] [facility] (Prevnar 13) Branch HIB 4 Dose Schedule 2013-01-24 Completed Unive rsity of 00:00:00 [facility] Hep B, Dtap, Polio 2013-01-24 Completed Univer sity of 00:00:00 [facility] Vital Signs Vital Name Observation Time Observation Value Comments Source Systolic blood 2022-08-05 19:18:00 128 mm[Hg] Univer sity of pressure [facility] Diastolic blood 2022-08-05 19:18:00 81 mm[Hg] Unive rsity of [facility] Heart rate 2022-08-05 19:18:00 110 /min Universi ty [facility] Respiratory rate 2022-08-05 19:18:00 23 /min Univ ersity of [facility] Body height 2022-08-05 19:18:00 165.1 cm Universi ty [facility] Body weight 2022-08-05 19:18:00 70.308 kg Universi ty [facility] BMI 2022-08-05 19:18:00 25.79 kg/m2 Universi [facility] Oxygen saturation in 2022-08-05 19:18:00 97 /min [facility] Arterial blood by [facility] Pulse oximetry Branch Systolic blood 2022-08-04 18:34:00 125 mm[Hg] Univer sity of pressure [facility] Diastolic blood 2022-08-04 18:34:00 84 mm[Hg] Unive rsity of pressure [facility] Heart rate 2022-08-04 18:34:00 96 /min Universi ty [facility] Body height 2022-08-04 18:34:00 165.1 cm Universi ty [facility] Body weight 2022-08-04 18:34:00 70.625 kg Universi ty [facility] BMI 2022-08-04 18:34:00 25.91 kg/m2 Universi ty [facility] Oxygen saturation in 2022-08-04 18:34:00 97 /min University of Arterial blood by [facility] Pulse oximetry Branch Systolic blood 2022-07-05 16:31:00 128 mm[Hg] Univer sity of pressure [facility] Diastolic blood 2022-07-05 16:31:00 86 mm[Hg] Unive rsity of pressure [facility] Heart rate 2022-07-05 16:31:00 93 /min Universi ty [facility] Body height 2022-07-05 16:31:00 [facility] 2022-07-05 16:31:00 67.722 kg [facility] BMI 2022-07-05 16:31:00 24.84 kg/m2 [facility] in 2022-07-05 16:31:00 99 /min University Arterial blood by [facility] Pulse oximetry [place] Procedures Procedure Date / Time Performing Clinician Source Performed ASSIGNMENT OF BENEFITS 2022-10-07 20:44:49 Doctor Unassigned, [facility] Name [facility] INSURANCE CORRESPONDENCE 2022-08-16 06:01:00 Doctor Unassigned, [facility] [place] [facility] POCT HEMOGLOBIN A1C TEST 2022-08-04 20:25:00 Micheline Gan [facility] Encounters Start End Encounter Admission Attending Care Care Encounter Source Date/Time Date/Time Type Type Clinicians Facility Department ID 2023-03-17 2023-03-17 Outpatient Pee CRUZ [facility] [id number] Univers 15:30:00 15:30:00 KIMBERLY gant [facility] 2022-10-18 2022-10-18 Moi Gan [facility] 1.2.840.114 [id number] Univers 00:00:00 00:00:00 Micheline CALHOUN 350.1.13.10 it y jesus [place] 4.2.7.2.686 Scooter as PITO?BLEA [id number] [address] MEDICAL OFFICE BUILDING 2022-10-07 2022-10-07 Outpatient Pee CRUZ [facility] [id number] Univers 15:00:00 15:00:00 KIMBERLY gant of [facility] 2022-10-07 2022-10-07 Orders Doctor JEFFERY 1.2.840.114 [id number] Univers 00:00:00 00:00:00 Only Unassigned, GABO 350.1.13.10 ity of [place] [facility] 4.2.7.2.686 Scooter as [id number] [address] 2022-09-15 2022-09-15 Telephone [facility] [id number] Univers 00:00:00 00:00:00 Micheline [facility] 350.1.13.10 it y of [place] 4.2.7.2.686 Scooter as PITO?BLEA [phone] Wi noel FORDEY [address] [place] MEDICAL OFFICE [facility] 2022-08-25 2022-08-25 [facility] [id number] Univers 15:48:17 23:59:00 ROSEANNE gant o f [facility] 2022-08-16 2022-08-16 Orders Doctor JEFFERY 1.2.840.114 [id number] Univers 00:00:00 00:00:00 Only Unassigned, GABO 350.1.13.10 ity of [place] [facility] 4.2.7.2.686 Scooter as [id number] [address] 2022-08-05 2022-08-05 [facility] [id number] Univers 14:00:00 14:39:02 ROSEANNE gant o f [facility] 2022-08-05 2022-08-05 Office [facility] 1.2.840.114 [id number] Univers 14:00:00 14:39:02 Visit Roseanne HERRING 350.1.13.10 ity of [place]2.7.2.686 [place] [phone] Wi noel GUTIERREZ [address] [facility] 2022-08-04 2022-08-04 [facility] [id number] Univers 13:30:00 14:59:51 MICHELINE ity [facility] 2022-08-04 2022-08-04 Office [facility] 1.2.840.114 [id number] Univers 13:30:00 14:59:51 Visit Micheline HEALTH 350.1.13.10 it y of [place] 4.2.7.2.686 Scooetr as PITO?BLEA [id number] [address] OFFICE [facility] 2022-07-19 2022-07-19 Refjose [facility] 1.2.840.114 [id number] Univers 00:00:00 00:00:00 Luis Miguel HEALTH 350.1.13.10 it y of [place] 4.2.7.2.686 Scooter as PITO?BLEA [id number] [address] OFFICE [facility] 2022-07-05 2022-07-05 [facility] [id number] [facility] 11:30:00 11:46:02 MICHELINE ity [facility] 2022-07-05 2022-07-05 Office [facility] 1.2.840.114 [id number] Univers 11:30:00 11:46:02 Visit Micheline HEALTH 350.1.13.10 it y of [place] 4.2.7.2.686 Scooter as PITO?BLEA [id number] [address] OFFICE [facility] 2022-07-05 2022-07-05 Telephone [facility] [id number] Univers 00:00:00 00:00:00 Micheline HEALTH 350.1.13.10 it y of [place] 4.2.7.2.686 Scooter as PITO?BLEA [id number] [address] MEDICAL OFFICE [facility] 2022-06-28 2022-06-28 Telephone [facility] [id number] Univers 00:00:00 00:00:00 Micheline HEALTH 350.1.13.10 it y of [place] 4.2.7.2.686 Scooter as PITO?BLEA [id number] [address] OFFICE [facility] 2022-06-22 2022-06-22 Telephone [facility] [id number] Univers 00:00:00 00:00:00 Micheline HEALTH 350.1.13.10 it y of [place] 4.2.7.2.686 Scooter as PITO?BLEA [phone] Wi noel SMITH [address] [place] MEDICAL OFFICE BUILDING 2022-06-21 2022-06-21 Case Yazmin, [facility] 1.2.840.114 [id number] Univers 00:00:00 00:00:00 Management Rania HEALTH 350.1.13.10 ity of [place] 4.2.7.2.686 Scooter as PITO?BLEA [id number] Wi noel SMITH [address] MEDICAL OFFICE BUILDING 2022-06-21 2022-06-21 Case Yazmin, [facility] 1.2.840.114 [id number] Univers 00:00:00 00:00:00 Management Rania HEALTH 350.1.13.10 ity of [place] 4.2.7.2.686 Scooter as PITO?BLEA [id number] Wi noel SMITH [address] [place] MEDICAL OFFICE [facility] 2022-06-21 2022-06-21 Case Yazmin, [facility] 1.2.840.114 [id number] Univers 00:00:00 00:00:00 Management Rania HEALTH 350.1.13.10 ity of [place] 4.2.7.2.686 Scooter as PITO?BLEA [phone] Wi noel SMITH [address] [place] MEDICAL OFFICE [facility] 2022-06-20 2022-06-20 [employer], Ang - Db [facility] 1.2.840.1 14 [id number] [facility] 12:00:00 12:14:16 Visit Saskia Gana HEALTH 350.1.13.10 ity of [place] 4.2.7.2.686 Scooter as PITO?BLEA [id number] Wi noel SMITH [address] MEDICAL OFFICE BUILDING 2022-06-20 2022-06-20 [employer], Ang - Db [facility] 1.2.840.1 [id number] [facility] 12:00:00 12:14:16 Visit SendyKirsten armentathia HEALTH 350.1.13.10 ity of [place] 4.2.7.2.686 Scooter as PITO?BLEA [phone] Wi noel SMITH [address] MEDICAL OFFICE [facility] 2022-06-20 2022-06-20 [employer], Ang - Db [facility] 1.2.840.1 14 [id number] Univers 12:00:00 12:14:16 Visit Micheline Gan 350.1.13.10 ity of [place] 4.2.7.2.686 Scooter as PITO?BLEA [id number] Wi noel SMITH [address] [place] MEDICAL OFFICE [facility] 2022-06-20 2022-06-20 Outpatient R ELVIA, [facility] [id number] Univers 11:30:00 11:47:22 MICHELINE itnakul [facility] 2022-06-20 2022-06-20 Office [facility] 1.2.840.114 [id number] Univers 11:30:00 11:47:22 Visit Micheline HEALTH 350.1.13.10 it y of [place] 4.2.7.2.686 Scooter as PITO?BLEA [id number] Wi noel [facility] [address] [facility] OFFICE [facility] 2022-06-20 2022-06-20 Outpatient R ELVIA, [facility] [id number] Univers 11:30:00 11:47:22 MICHELINE ity [facility] 2022-06-20 2022-06-20 Office [facility] 1.2.840.114 [id number] Univers 11:30:00 11:47:22 Visit Micheline HEALTH 350.1.13.10 [facility] 4.2.7.2.686 Scooter as PITO?BLEA [id number] Wi noel FORD[address] OFFICE [facility] 2022-06-20 2022-06-20 Outpatient R ELVIA, [facility] [id number] Univers 11:30:00 11:47:22 MICHELINE ity [facility] 2022-06-20 2022-06-20 Letter [facility] 1.2.840.114 [id number] Univers 00:00:00 00:00:00 (Out) Micheline HEALTH 350.1.13.10 it y of [place] 4.2.7.2.686 Scooter as PITO?BLEA [id number] Wi noel FORD[address] OFFICE [facility] 2022-06-20 2022-06-20 [facility]phone [facility] [id number] Univers 00:00:00 00:00:00 Micheline HEALTH 350.1.13.10 it y of [place] 4.2.7.2.686 Scooter as PITO?BLEA [id number] Wi noel [address] OFFICE [facility] 2022-06-20 2022-06-20 Telephone [facility] [id number] Univers 00:00:00 00:00:00 Micheline HEALTH 350.1.13.10 it y of [place] 4.2.7.2.686 Scooter as PITO?BLEA [id number] Wi noel FORD[address] OFFICE [facility] 2022-05-28 2022-05-28 [facility] [facility] 1.2.840.114 [id number] Univers 12:00:00 12:00:00 Care Nate HEALTH 350.1.13.10 it y of [place] 4.2.7.2.686 Scooter as PITO?BLEA [id number] [address] OFFICE [facility] 2022-05-28 2022-05-28 Elva [facility] 1.2.840.114 [id number] Univers 12:00:00 12:00:00 Care Nate HEALTH 350.1.13.10 it y of [place] 4.2.7.2.686 Scooter as PITO?BLEA [id number] [address] OFFICE [facility] 2022-05-28 2022-05-28 Outpatient R DAX [facility] [id number] Univers 12:00:00 11:55:15 NATE nakul [facility] 2022-05-20 2022-05-20 Outpatient R YAZMIN [facility] [id number] Univers 20:40:00 20:40:00 BRETT gant [facility] 2022-05-12 2022-05-12 Refill [facility] 1.2.840.114 [id number] Univers 00:00:00 00:00:00 Micheline HEALTH 350.1.13.10 it y of [place] 4.2.7.2.686 Scooter as PITO?BLEA [id number] [address] MEDICAL OFFICE BUILDING 2022-04-29 2022-04-29 Urgent Johan[facility] 1.2.840.114 [id number] Univers 12:00:00 12:20:00 Care Tavotn HEALTH 350.1.13.10 it y [facility] 4.2.7.2.686 Scooter as PITO?BLEA [id number] [address] MEDICAL OFFICE BUILDING 2022-04-29 2022-04-29 Outpatient R YAZMIN [facility] [id number] Univers 12:00:00 12:00:00 BRETT ity [facility] 2022-04-04 2022-04-04 Moi [facility] 1.2.840.114 [id number] Univers 00:00:00 00:00:00 Micheline HEALTH 350.1.13.10 it y of [place] 4.2.7.2.686 Scooter as PITO?BLEA [phone] [address] MEDICAL OFFICE BUILDING 2022-03-28 2022-03-28 Urgent Magda Lee [facility] 1.2.840. 114 [id number] Univers 16:20:00 16:40:00 Care Dax Nate HEALTH 350.1.13.10 ity of [facility] 4.2.7.2.686 Scooter as PITO?BLEA [id number] [address] MEDICAL OFFICE BUILDING 2022-03-28 2022-03-28 Outpatient R ROSA [facility] [id number] Univers 16:20:00 16:20:00 MAGDA ferro [facility] 2022-03-21 2022-03-21 Orders Doctor GIL 1.2.840.114 [id number] Univers 00:00:00 00:00:00 Only Unassigned, GABO 350.1.13.10 ity of [place] [facility] 4.2.7.2.686 Scooter as [id number] [address] 2022-03-03 2022-03-03 Moi Estr[facility] 1.2.840.114 [id number] Univers 00:00:00 00:00:00 Luis Miguel HEALTH 350.1.13.10 it y of [place] 4.2.7.2.686 Scooter as PITO?BLEA [id number] [facility] [address] MEDICAL OFFICE [facility] 2022-02-02 2022-02-02 Khoi [facility] 1.2.493.380 [id number] Univers 00:00:00 00:00:00 Micheline HEALTH 350.1.13.10 it y of [place] 4.2.7.2.686 Scooter as PITO?BLEA [id number] [address] OFFICE [facility] 2022-01-28 2022-01-28 [facility] [id number] Univers 11:30:00 [facility]:30[facility]22-01-28 [facility] [id number] Univers 11:30:00 11:30:00 [facility] 2022-01-05 2022-01-05 Urgent Brett Arce [facility] 1.2.840.114 [id number] Univers 13:20:00 13:20:00 Jena Hurt [facility] 350.1.13.10 ity of [place] 4.2.7.2.686 Scooter as PITO?BLEA [id number] [facility] [address] MEDICAL OFFICE [facility] 2022-01-05 2022-01-05 [facility] [id number] Univers 13:20:00 10:49:31 [facility] 2022-01-05 2022-01-05 Letter [facility] 1.2.288.582 [id number] Univers 00:00:00 00:00:00 (Out) Ang Db HEALTH 350.1.13.10 it y [facility] 4.2.7.2.686 [place] PITO?BLEA [id number] [address] MEDICAL OFFICE [facility] 2022-01-05 2022-01-05 Telephone Yazmin [facility] 1.2.840.114 [id number] Univers 00:00:00 00:00:00 Rania HEALTH 350.1.13.10 it y of [place] 4.2.7.2.686 Scooter as PITO?BLEA [id number] Wi noel FORD [address] [facility] OFFICE [facility] 2022-01-04 2022-01-04 Orders Doctor JEFFERY 1.2.840.114 [id number] Univers 00:00:00 00:00:00 Only Unassigned, GABO 350.1.13.10 ity of [place] [facility] 4.2.7.2.686 Scooter as [id number] [address] 2021-12-31 2021-12-31 Telephone Elvia [facility] 1.2.245.098 [id number] Univers 00:00:00 00:00:00 Micheline HEALTH 350.1.13.10 it y of [place] 4.2.7.2.686 Scooter as PIOT?BLEA [id number] Wi noel [address] OFFICE [facility] 2021-12-31 2021-12-31 Telephone Elvia OHESTEFANIA 1.2.139.083 [id number] Univers 00:00:00 00:00:00 Micheline HEALTH 350.1.13.10 it y of [facility] 4.2.7.2.686 Scooter as PITO?BLEA [id number] Wi noel [address] OFFICE [facility] 2021-12-30 2021-12-30 Outpatient Pee GAN [facility] [id number] Univers 11:00:00 11:00:00 MICHELINE gant [facility] 2021-12-30 2021-12-30 Outpatient Pee GAN [facility] [id number] Univers 11:00:00 11:00:00 MICHELINE gant [facility] 2021-12-28 2021-12-28 Outpatient Pee AGN [facility] [id number] Univers 11:30:00 12:26:05 MICHELINE gant [facility] 2021 2021 Telephone [facility] 1.2.280.330 [id number] Univers 00:00:00 00:00:00 Micheline HEALTH 350.1.13.10 it y of [place] 4.2.7.2.686 Scooter as PITO?BLEA [id number] [facility] [address] [facility] OFFICE [facility] 2021-11-04 2021-11-04 Outpatient R BELKIS [facility] [id number] Univers 11:30:00 11:30:00 CHRISTOPHER stalin [facility] 2021-11-02 2021-11-02 [employer], Ang - Db [facility] 1.2.840.1 14 [id number] Univers 16:30:00 16:45:00 Visit Micheline Gan HEALTH 350.1.13.10 ity of [place] 4.2.7.2.686 Scooter as PITO?BLEA [id number] [facility] [address] [facility] OFFICE [facility] 2021-11-02 2021-11-02 [facility] [id number] Univers 15:00:00 16:27:02 MICHELINE itnakul [facility] 2021-11-02 2021-11-02 Office [facility] 1.2.840.114 [id number] Univers 15:00:00 16:27:02 Visit Micheline HEALTH 350.1.13.10 it y of [facility] 4.2.7.2.686 Scooter as PITO?BLEA [id number] [address] OFFICE [facility] 2021-10-19 2021-10-19 Telephone [place] 1.2.840.114 [id number] Univers 00:00:00 00:00:00 Demetri Hyde HEALTH 350.1.13.10 i ty of [place] [id number] [address] 2021-10-18 2021-10-18 Outpatient R DEMETRI LAKE [facility] [id number] Univers 13:45:00 15:41:27 DEMETRI LA[place] i ty [facility] 2021-10-18 2021-10-18 Office Joan Carlson [facility] 1.2.840.114 [id number] Univers 13:45:00 15:41:27 Visit Demetri [place] HEALTH 350.1.13.10 it[place] [id number] [address] 2021-10-18 2021-10-18 Office [facility] 1.2.840.114 [id number] Univers 13:45:00 15:41:27 Visit Demetri [place] HEALTH 350.1.13.10 it[place] [id number] [address] 2021-10-18 2021-10-18 Outpatient R FREDY DEMETRI [facility] [id number] Univers 13:45:00 15:41:27 FREDYKIMBERLYNT i ty [facility] 2021-10-13 2021-10-13 [facility] 1.2.548.206 [id number] [facility] 00:00:00 00:00:00 Micheline HEALTH 350.1.13.10 it y of [facility] 4.2.7.2.686 Scooter as PITO?BLEA [id number] [address] OFFICE [facility] 2021-10-05 2021-10-05 Office [facility] 1.2.840.114 [id number] Univers 10:30:00 11:13:32 Visit Micheline HEALTH 350.1.13.10 it y of [place] 4.2.7.2.686 Scooter as PITO?BLEA [id number] [address] MEDICAL OFFICE [facility] 2021-10-05 2021-10-05 Outpatient R ELVIA [facility] [id number] Univers 10:30:00 11:13:32 MICHELINE jerryy [facility] 2021-10-05 2021-10-05 Outpatient R ELVIA [facility] [id number] Univers 10:30:00 10:30:00 MICHELINE jerryy [facility] 2021-10-05 2021-10-05 Outpatient R ELVIA [facility] [id number] Univers 10:30:00 10:30:00 MICHELINE itnakul [facility] 2021-10-04 2021-10-04 Telephone [facility] 1.2.864.106 [id number] Univers 00:00:00 00:00:00 Micheline HEALTH 350.1.13.10 it y of [place] 4.2.7.2.686 Scooter as PITO?BLEA [id number] [address] MEDICAL OFFICE [facility] 2021-09-27 2021-09-27 [employer], Ang - [facility] 1.2.840.1 [id number] Univers 10:30:00 10:45:00 Visit Micheline Gan HEALTH 350.1.13.10 ity of [place] 4.2.7.2.686 Scooter as PITO?BLEA [id number] [address] OFFICE [facility] 2021-09-27 2021-09-27 [facility] [id number] Univers 10:30:00 10:30:00 MICHELINE itnakul [facility] 2021-09-27 2021-09-27 Telephone [facility] 1.2.632.591 [id number] Univers 00:00:00 00:00:00 Micheline HEALTH 350.1.13.10 it y of [place] 4.2.7.2.686 Scooter as PITO?BLEA [id number] [address] OFFICE [facility] 2021-09-24 2021-09-24 Outpatient R ELVIA [facility] [id number] Univers 16:30:00 17:11:50 MICHELINE ity [facility] 2021-09-24 2021-09-24 Office [facility] 1.2.840.114 [id number] Univers 16:30:00 17:11:50 Visit Micheline HEALTH 350.1.13.10 it y of [place] 4.2.7.2.686 Scooter as PITO?BLEA [id number] [address] OFFICE [facility] 2021-09-24 2021-09-24 [facility] [id number] Univers 16:30:00 17:11:50 MICHELINE ity [facility] 2021-09-06 2021-09-06 Office [facility] 1.2.840.114 [id number] Univers 13:07:39 14:01:08 Visit Micheline [facility] 350.1.13.10 it y of [place] 4.2.7.2.686 Scooter as PITO?BLEA [id number] [address] MEDICAL OFFICE BUILDING 2021-09-06 2021-09-06 [facility] [id number] Univers 13:00:00 14:01:08 MICHELINE gant [facility] 2021-09-06 2021-09-06 [facility] [id number] Univers 13:00:00 13:00:00 MICHELINE itnakul [facility] 2021-09-06 2021-09-06 Orders Doctor JEFFERY 1.2.840.114 [id number] Univers 00:00:00 00:00:00 Only Unassigned, GABO 350.1.13.10 [facility] 4.2.7.2.686 Scooter as [id number] [address] 2021-02-06 2021-02-06 [facility] [id number] Univers 13:10:00 13:10:00 SHERIF [facility] 2021-01-16 2021-01-16 Outpatient [facility] [id number] Univers 13:10:00 13:10:00 [facility] Results Test Description Test Time Test Comments Results Result Comments Source POCT HEMOGLOBIN A1C TEST 2022-08-04 21:00:00 Test Item Value Reference Range Interpretation Comme nts POCT HBA1C (test code = 4548-4) 12.1 % 4-6 A Lab Interpretation (test code = 07469-9) [facility] [id number] 21:00:00 Test Item Value Reference Range Interpretation Comments POCT HBA1C (test code = 4548-4) 12.1 % 4-6 A Lab Interpretation (test code = Abnormal 51334-8) [facility]
[2022-10-29 16:43] LABS: Absolute Lymphocytes (CBC) 1.8 K/uL (0.7-4.9); Hematocrit 43.9 % (39.6-49.0); MCV 88.4 fL (80-100); MPV 9.1 fL (7.6-11.3); RBC Red Blood Cell Count 4.96 M/uL (4.33-5.43)
[2022-10-29 16:51] LABS: Urine Blood Trace-intact (Negative); Urine Glucose 3+ (Negative); Urine Protein 2+ (Negative)
[2022-10-29 17:02] LABS: Potassium 4.3 mmol/L (3.5-5.1)
[2022-10-29] MEDS ORDERED: ACETAMINOPHEN 325 MG TABLET ONE (17:02)
[2022-10-29] MEDS ORDERED: NA CHLORIDE 0.9% 1,000 ML ONE ×2 (17:02→17:36)
[2022-10-29] MEDS ORDERED: INSULIN -REGULAR HUMAN 50 UNIT/0.5 ML ML ONE (17:34)
[2022-10-29] MEDS ORDERED: METFORMIN HCL 500 MG TAB ONE (17:35)
--- NOTE | 2022-10-29 18:01 | EDPHYS ---
Physician Documentation [facility] Name: Sergio Hilton Age: 21 yrs Sex: Male : 2000 Arrival Date: 10/29/2022 Time: 15:22 Bed DX3 Private MD: ED Physician Severo Yo HPI: 10/29 15:52 This 21 yrs old Male presents to ER via Unassigned with complaints of cp Headache, High Blood Sugar. 15:52 The patient complains of pain to the top of head and forehead. The patient describes cp the headache as aching. Onset: The symptoms/episode began/occurred this morning. 15:52 Associated signs and symptoms: Pertinent positives: nausea, Pertinent negatives: cp altered mental status, fever, paresthesias, vomiting, weakness. Severity of symptoms: in the emergency department the pain a " 6" out of "10". Headache History: The patient has had previous headaches and this one is similar to previous episodes. 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 Historical: - Allergies: 16:44 Latex, Natural Rubber; jl7 - Home Meds: 16:44 metformin 500 mg Oral tab [Active]; Glipizide Oral [Active]; citalopram oral [Active]; jl7 - PMHx: 16:44 Diabetes - NIDDM; Irritable bowel syndrome; Leukemia; jl7 - PSHx: 16:44 Appendectomy; jl7 - Immunization history:: Client reports receiving the 2nd dose of the Covid vaccine. - Social history:: Smoking status: Patient denies any tobacco usage or history of. ROS: 16:00 Constitutional: Negative for body aches, chills, fever, poor PO intake. cp 16:00 Eyes: Negative for injury, pain, redness, and discharge. cp 16:00 ENT: Negative for drainage from ear(s), ear pain, sore throat, difficulty swallowing, difficulty handling secretions. 16:00 Cardiovascular: Negative for chest pain. 16:00 Respiratory: Negative for cough, shortness of breath, wheezing. 16:00 Abdomen/GI: Positive for nausea, Negative for abdominal pain, vomiting, diarrhea, constipation. 16:00 : Negative for urinary symptoms. 16:00 Skin: Negative for cellulitis, rash. 16:00 Neuro: Positive for headache, Negative for altered mental status, dizziness, numbness, weakness. 16:00 All other systems are negative. Exam: 16:05 Constitutional: The patient appears in no acute distress, alert, awake, non-toxic, well cp developed, well nourished. 16:05 Head/Face: Normocephalic, atraumatic. cp 16:05 Eyes: Periorbital structures: appear normal, Conjunctiva: normal, no exudate, no injection, Sclera: no appreciated abnormality, Lids and lashes: appear normal, bilaterally. 16:05 ENT: External ear(s): are unremarkable, Nose: is normal, Mouth: Lips: moist, Oral mucosa: pink and intact, moist, Posterior pharynx: Airway: no evidence of obstruction, patent. 16:05 Chest/axilla: Inspection: normal. 16:05 Cardiovascular: Rate: tachycardic, Rhythm: regular. 16:05 Respiratory: the patient does not display signs of respiratory distress, Respirations: normal, no use of accessory muscles, no retractions, labored breathing, is not present, Breath sounds: are clear throughout, no decreased breath sounds, no stridor, no wheezing. 16:05 Abdomen/GI: Inspection: abdomen appears normal, Palpation: abdomen is soft and non-tender, in all quadrants. 16:05 Skin: no rash present. 16:05 Neuro: Orientation: to person, place \\T\\ time. Mentation: is normal, Cerebellar function: is grossly normal, Motor: moves all fours, strength is normal, Sensation: is normal. Vital Signs: 16:42 BP 149 / 104; Pulse 105; Resp 19; Temp 98.4; Pulse Ox 100% ; Weight 68.04 kg; Height 5 jl7 ft. 5 in. (165.10 cm); Pain 6/10; 16:42 Body Mass Index 24.96 (68.04 kg, 165.10 cm) jl7 MDM: 15:29 Patient medically screened. [facility] 16:00 Differential diagnosis: migraine, tension headache, electrolyte abnormality, DKA. 18:00 Data reviewed: vital signs, nurses notes, lab test result(s). 18:00 Consideration of Admission/Observation Escalation of care including cp admission/observation considered. I considered the following discharge prescriptions or medication management in the emergency department Medications were administered in the Emergency Department. See MAR. Test considered but Not performed: Other Details CT head. Care significantly affected by the following chronic conditions: Diabetes. Counseling: I had a detailed discussion with the patient and/or guardian regarding: the historical points, exam findings, and any diagnostic results supporting the discharge/admit diagnosis, the presence of at least one elevated blood pressure reading (>120/80) during this emergency department visit, lab results, the need for outpatient follow up, a family practitioner, to return to the emergency department if symptoms worsen or persist or if there are any questions or concerns that arise at home. Response to treatment: the patient's symptoms have markedly improved after treatment, and as a result, I will discharge patient. 10/29 15:36 Order name: CBC with Diff; Complete Time: 17:12 [facility] 10/29 15:36 Order name: BMP; Complete Time: 17:12 [facility] 10/29 17:13 Interpretation: Normal except: GLUC 327. 10/29 15:51 Order name: Ketone, Serum; Complete Time: 17:12 10/29 16:51 Order name: Urine Dipstick-Ancillary; Complete Time: 17:12 [facility] 10/29 17:13 Interpretation: Normal except: UGLUC 3+; UKET 2+; UBLD Trace-intact; UPROT 2+. 10/29 16:53 Order name: Glucose, Ancillary Testing; Complete Time: 17:12 [facility] 10/29 18:11 Order name: Glucose, Ancillary Testing [facility] 10/29 15:36 Order name: Urine Dipstick-Ancillary (obtain specimen); Complete Time: 16:43 [facility] 10/29 15:36 Order name: Saline Lock; Complete Time: 16:29 [facility] 10/29 15:51 Order name: Accucheck Blood Glucose; Complete Time: 16:43 cp Administered Medications: 17:00 Drug: NS 0.9% 1000 ml Route: IV; Rate: 1 bolus; Site: right antecubital; aa5 17:37 Follow up: IV Status: Completed infusion; IV Intake: 1000ml aa5 17:00 Drug: Tylenol 650 mg Route: PO; aa5 17:37 Follow up: Response: No adverse reaction aa5 17:35 Drug: Insulin Regular Human 5 units {Co-Signature: vg1 (Sujatha Del Real RN).} Route: aa5 Sub-Q; Site: left lower abdomen; 18:00 Follow up: Response: No adverse reaction aa5 17:37 Drug: metFORMIN 500 mg Route: PO; aa5 18:13 Follow up: Response: No adverse reaction aa5 17:37 Drug: NS 0.9% 1000 ml Route: IV; Rate: 1 bolus; Site: right antecubital; aa5 18:13 Follow up: IV Status: Completed infusion; IV Intake: 1000ml aa5 Disposition: 10/30 16:51 Co-signature as Attending Physician, Severo Yo MD. rn Disposition Summary: 10/29/22 18:00 Discharge Ordered Location: Home cp Problem: an acute exacerbation cp Symptoms: have improved cp Condition: Stable cp Diagnosis - Diabetes mellitus due to underlying condition with hyperglycemia cp Followup: cp - With: Private Physician - When: 1 - 2 days - Reason: Recheck today's complaints Discharge Instructions: - Discharge Summary Sheet cp - Type 2 Diabetes Mellitus, Diagnosis, Adult cp - Hyperglycemia cp - Form - Daily Diabetes Record cp - Blood Glucose Monitoring, Adult cp - Diabetes Mellitus and Nutrition, Adult cp Forms: - Medication Reconciliation Form cp - Thank You Letter cp - Antibiotic Education cp - Prescription Opioid Use cp Signatures: Dispatcher [employer] EDZackary Lemus PA PA jmm Nieto, Roman, MD MD rn Calderon, Audri RN RN aa5 Ulises Sullivan PA PA cp Leal, Jahala RN RN jl7 Sujatha Del Real RN vg1
--- NOTE | 2022-10-29 18:01 | ER ---
Nurse's Notes [facility] Name: Sergio Hilton Age: 21 yrs Sex: Male : 2000 Arrival Date: 10/29/2022 Time: 15:22 Bed DX3 Private MD: Diagnosis: Diabetes mellitus due to underlying condition with hyperglycemia Presentation: 10/29 16:35 Coronavirus screen: At this time, the client does not indicate any symptoms associated [facility] with coronavirus-19. Ebola Screen: No symptoms or risks identified at this time. Initial Sepsis Screen: Does the patient meet any 2 criteria? No. Patient's initial sepsis screen is negative. Does the patient have a suspected source of infection? No. Patient's initial sepsis screen is negative. Risk Assessment: Do you want to hurt yourself or someone else? Patient reports no desire to harm self or others. Onset of symptoms was October 29, 2022. 16:35 Method Of Arrival: Ambulatory [facility] 16:35 Acuity: YURI 3 [facility] 16:42 Chief complaint: Patient states: FIELDS and nausea. [facility] 16:42 Method Of Arrival: EMS: [place] [id number] Triage Assessment: 16:44 Headache History: The patient has had previous headaches and this one is similar to jl7 previous episodes. General: Appears in no apparent distress. uncomfortable, Behavior is calm, cooperative, appropriate for age. Pain: Complains of pain in FIELDS Pain currently is 6 out of 10 on a pain scale. Pain began gradually, Also complains of nausea. Neuro: Level of Consciousness is awake, alert, obeys commands, Oriented to person, place, time, situation. Historical: - Allergies: 16:44 Latex, Natural Rubber; jl7 - Home Meds: 16:44 metformin 500 mg Oral tab [Active]; Glipizide Oral [Active]; citalopram oral [Active]; jl7 - PMHx: 16:44 Diabetes - NIDDM; Irritable bowel syndrome; Leukemia; jl7 - PSHx: 16:44 Appendectomy; jl7 - Immunization history:: Client reports receiving the 2nd dose of the Covid vaccine. - Social history:: Smoking status: Patient denies any tobacco usage or history of. Assessment: 17:00 Reassessment: Patient is alert, oriented x 3, equal unlabored respirations, skin aa5 warm/dry/pink. 18:15 Reassessment: Patient is alert, oriented x 3, equal unlabored respirations, skin aa5 warm/dry/pink. Vital Signs: 16:42 BP 149 / 104; Pulse 105; Resp 19; Temp 98.4; Pulse Ox 100% ; Weight 68.04 kg; Height 5 jl7 ft. 5 in. (165.10 cm); Pain 6/10; 16:42 Body Mass Index 24.96 (68.04 kg, 165.10 cm) jl7 ED Course: 15:22 Patient arrived in ED. as 15:23 Zackary Priest PA is PHCP. [facility] 15:23 Severo Yo MD is Attending Physician. [facility] 15:51 PHCP role handed off by Zackary Priest PA cp 15:51 Ulises Sullivan PA is PHCP. cp 16:29 BMP Sent. bc6 16:29 CBC with Diff Sent. bc6 16:36 Triage completed. jl7 16:44 Arm band placed on right wrist. Patient placed in waiting room, Patient notified of jl7 wait time. 18:16 No provider procedures requiring assistance completed. IV discontinued, intact, aa5 bleeding controlled, No redness/swelling at site. Pressure dressing applied. Administered Medications: 17:00 Drug: NS 0.9% 1000 ml Route: IV; Rate: 1 bolus; Site: right antecubital; aa5 17:37 Follow up: IV Status: Completed infusion; IV Intake: 1000ml aa5 17:00 Drug: Tylenol 650 mg Route: PO; aa5 17:37 Follow up: Response: No adverse reaction aa5 17:35 Drug: Insulin Regular Human 5 units {Co-Signature: vg1 (Sujatha Del Real RN).} Route: aa5 Sub-Q; Site: left lower abdomen; 18:00 Follow up: Response: No adverse reaction aa5 17:37 Drug: metFORMIN 500 mg Route: PO; aa5 18:13 Follow up: Response: No adverse reaction aa5 17:37 Drug: NS 0.9% 1000 ml Route: IV; Rate: 1 bolus; Site: right antecubital; aa5 18:13 Follow up: IV Status: Completed infusion; IV Intake: 1000ml aa5 Intake: 17:37 IV: 1000ml; Total: 1000ml. aa5 18:13 IV: 1000ml; Total: 2000ml. aa5 Outcome: 18:00 Discharge ordered by . cp 18:15 Discharged to home ambulatory, with family. aa5 18:15 Condition: stable 18:15 Discharge instructions given to patient, Instructed on discharge instructions, follow up and referral plans. Demonstrated understanding of instructions, follow-up care. 18:16 Patient left the ED. aa5 Signatures: Zackary Priest PA PA jmm Martinez, Amelia as Calderon, Audri, RN RN aa5 Ulises Sullivan PA PA cp Leal, Jahala, RN RN jl7 Uma Llanes 6 Sujatha Del Real RN vg1 Corrections: (The following items were deleted from the chart) 16:37 16:35 Chief complaint: Patient states: Slipped and fell 3 hours [employer], c/o of Right wrist jl7 pain jl7 16:37 16:35 Pulse 60bpm; Resp 17bpm; Pulse Ox 100% RA; Temp 98.4F Temporal; 74.84 kg jl7 Reported; Height 5 ft. 9 in. Reported; BMI: 24.3; Pain 10/10; jl7 16:44 16:35 Acuity: YURI 4 jl7 jl7
[2022-10-29 20:17] VITALS: BP 149/104; TEMP 98.4; O2SAT 100
== END 2022-10-29 18:16 | disposition home or self-care (01) ==
LOC: ER 15:22
DX: E11.65 Type 2 diabetes mellitus with hyperglycemia (principal); Z85.6 Personal history of leukemia; Z91.040 Latex allergy status; Z91.048 Other nonmedicinal substance allergy status
CPT/HCPCS: 85025; 80048; 36415; 82010; 82947 ×2; 81003; 96360; 96372; 99283; J1815; J7030 ×2

== ENCOUNTER 2022-11-15 19:53 | Emergency (ER) | payer OTHER ==
--- OUTSIDE RECORDS SUMMARY | 2022-11-15 19:59 | XMS REPORT | Continuity of Care Document ---
:2000 Author Organization [facility] t Address [address] [place] [address] Dr. [address] [place] [address] Care Team Providers Name Role Phone MICHELINE GAN Primary Care Physician Unavailable RICHARD CRUZ Attending Clinician Unavailable Micheline Nieves Attending Clinician Richard Cruz MD Attending Clinician Doctor Unassigned, [facility] Attending Clinician Unavailable ROSEANNE LEVINE Attending Clinician Unavailable Roseanne Levine MD Attending Clinician MICHELINE GAN Attending Clinician Unavailable Luis Miguel Estrada MD Attending Clinician EbBrett Peacock Attending Clinician Lab, Ang - Db Attending Clinician Unavailable Nate Verduzco MD Attending Clinician NATE VERDUZCO Attending Clinician Unavailable BRETT ARCE Attending Clinician Unavailable Magda Dickson Attending Clinician MAGDA LEE Attending Clinician Unavailable Suasn Morelos Attending Clinician SUSAN HURT Attending Clinician Unavailable Provider, [facility] Attending Clinician Unavailable CHRISTOPHER TAMAYO Attending Clinician Unavailable Demetri Lake MD Attending Clinician DEMETRI LAKE Attending Clinician Unavailable DEMETRI LAKE Attending Clinician Unavailable Joan Carlson MD Attending Clinician SHERIF HERNANDEZ Attending Clinician Unavailable ROSEANNE LEVINE Admitting Clinician Unavailable Payers Payer Name Policy Type Policy Number Effective Date Expiration Date Lizett nathan [facility] [id number] 2022 PLUS 00:00:00 FORMERLY [facility] [id number] 2018 CHOICE MEDICAID 00:00:00 Problems Condition Condition [...] different from the original. 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 Leukemia Leukemia Disease Active Unive rs [facility] [place] [facility] ALL (acute ALL (acute Disease [...] Active Itching Unive rs in ty to 7- ity of adverse 00:00: [place] reaction 00 Medical s Branch PERMETHR DRUG Active ITCHING Univers IN INGREDI 7 ity of 00:00: [place] 00 Medical Branch Latex Propensi Active Rash Redness Univers ty to 5-18 to site ity of adverse 00:00: where [place] reaction 00 latex Medical s touches Branch LATEX DRUG Active Med Rash Univers INGREDI 518 ity of 00:00: [place] 00 Medical Branch Pegaspar Propensi Active Hives Pre-medic Uni vers gase ty to 2-25 ate ity of adverse 00:00: peg-aspar [place] reaction 00 aginase Medical s with Branch diphenhyd ramine PEGASPAR DRUG Active Low Hives 2010- Univers GASE INGREDI 2-25 ity of 00:00: [place] 00 [facility] Branch Social History Social Habit Start Date Stop Date Quantity Comments Source History of Passive smoker University of tobacco use [facility] Exposure to 2022-09-27 2022-10-07 Not sure [facility]-CoV-2 00:00:00 14:43:00 [facility] (event) [place] Alcohol intake 2022-08-05 2022-08-05 Current University 00:00:00 00:00:00 non-drinker of [facility] alcohol (finding) Branch Tobacco use and 2022-06-20 2022-06-20 Smokeless tobacco Un iversity of exposure 00:00:00 00:00:00 non-user [facility] Tobacco Comment 2022-06-20 2022-06-20 Family smokes Univer sity of 00:00:00 00:00:00 outside [facility] Sex Assigned At 2000 2000 Universit y of 00:00:00 00:00:00 [facility] Smoking Status Start Date Stop Date Source Never smoked tobacco [facility] Medications Ordered Filled Start Stop Current Ordering Indication Dosage Frequency Signature Comments Components Source Medication Medication Date Date Medication? Clinician (SIG) Name Name lisinopriL Yes [id number] 2.5mg Take 1 Univers 2.5 mg 1-10 tablet by ity of tablet 00:00: mouth in [place] 00 the Medical morning. Branch metformin 2021-10 Yes [id number] 750mg Take 1 Univers ER 750 mg 2-30 tablet by ity o f 24 hr 00:00: mouth [place] tablet 00 daily with Medical breakfast. Branch glipiZIDE 2021-10 Yes [id number] 20mg Take 2 U nivers XL 10 mg 24 2-30 tablets by it y of hr tablet 00:00: mouth [place] 00 daily with Medical breakfast. Branch metformin 2021-10 Yes [id number] 750mg Take 1 Univers ER 750 mg 2-30 tablet by ity o f 24 hr 00:00: mouth [place] tablet 00 daily with Medical breakfast. Branch glipiZIDE 2021-10 Yes [id number] 20mg Take 2 U nivers XL 10 mg 24 2-30 tablets by it y of hr tablet 00:00: mouth [place] 00 daily with Medical breakfast. Branch metformin 2021-10 Yes [id number] 750mg Take 1 Univers ER 750 mg 2-30 tablet by ity o f 24 hr 00:00: mouth [place] tablet 00 daily with Medical breakfast. Branch glipiZIDE 2021-10 Yes [id number] 20mg Take 2 U nivers XL 10 mg 24 2-30 tablets by it y of hr tablet 00:00: mouth [place] 00 daily with Medical breakfast. Branch LISINOPRIL 2021-10 Yes [id number] TAKE 1 Univers 2.5 mg 0-13 TABLET BY ity of tablet 00:00: MOUTH [place] 00 EVERY DAY Medical Branch LISINOPRIL 2021-10 Yes [id number] TAKE 1 Univers 2.5 mg 0-13 TABLET BY ity of tablet 00:00: MOUTH [place] 00 EVERY DAY Medical Branch LISINOPRIL 2021-10 Yes [id number] TAKE 1 Univers 2.5 mg 0-13 TABLET BY ity of tablet 00:00: MOUTH [place] 00 EVERY DAY Medical Branch LISINOPRIL 2021-10 Yes [id number] TAKE 1 Univers 2.5 mg 0-13 TABLET BY ity of tablet 00:00: MOUTH [place] 00 EVERY DAY Medical Branch LISINOPRIL 2021-10 Yes [id number] TAKE 1 Univers 2.5 mg 0-13 TABLET BY ity of tablet 00:00: MOUTH [place] 00 EVERY DAY Medical Branch LISINOPRIL 2021-10 Yes [id number] TAKE 1 Univers 2.5 mg 0-13 TABLET BY ity of tablet 00:00: MOUTH [place] 00 EVERY DAY Medical Branch LISINOPRIL 2021-10 Yes [id number] TAKE 1 Univers 2.5 mg 0-13 TABLET BY ity of tablet 00:00: MOUTH [place] 00 EVERY DAY Medical Branch LISINOPRIL 2021-10 Yes [id number] TAKE 1 Univers 2.5 mg 0-13 TABLET BY ity of tablet 00:00: MOUTH [place] 00 EVERY DAY Medical Branch LISINOPRIL 2021-10- No [id number] TAKE 1 Univers 2.5 mg 0-13 01-10 TABLET BY ity of tablet 00:00: 00:00 MOUTH [place] 00 :00 EVERY DAY Medical Branch LISINOPRIL 2021-10- No [id number] TAKE 1 Univers 2.5 mg 0-13 01-10 TABLET BY ity of tablet 00:00: 00:00 MOUTH [place] 00 :00 EVERY DAY Medical Branch LISINOPRIL 2021-103- No [id number] TAKE 1 Univers 2.5 mg 0-13 01-10 TABLET BY ity of tablet 00:00: 00:00 MOUTH [place] 00 :00 EVERY DAY Medical Branch rosuvastati 2021-0 Yes [id number] 20mg Take 1 Univers n (CRESTOR) 9-27 tablet by ity of 20 mg 00:00: mouth at [place] tablet 00 bedtime. Medical Branch ezetimibe 0 Yes [id number] 10mg Take 1 U nivers 10 mg 9-27 tablet by ity of tablet 00:00: mouth in [place] 00 the Medical morning. Branch rosuvastati 0 Yes [id number] 20mg Take 1 Univers n (CRESTOR) 9-27 tablet by ity of 20 mg 00:00: mouth at [place] tablet 00 bedtime. Medical Branch ezetimibe 0 Yes [id number] 10mg Take 1 U nivers 10 mg 9-27 tablet by ity of tablet 00:00: mouth in [place] 00 the Medical morning. Branch rosuvastati 0 Yes [id number] 20mg Take 1 Univers n (CRESTOR) 9-27 tablet by ity of 20 mg 00:00: mouth at [place] tablet 00 bedtime. Medical Branch ezetimibe 0 Yes [id number] 10mg Take 1 U nivers 10 mg 9-27 tablet by ity of tablet 00:00: mouth in [place] 00 the Medical morning. Branch rosuvastati 0 Yes [id number] 20mg Take 1 Univers n (CRESTOR) 9-27 tablet by ity of 20 mg 00:00: mouth at [place] tablet 00 bedtime. Medical Branch ezetimibe 0 Yes [id number] 10mg Take 1 U nivers 10 mg 9-27 tablet by ity of tablet 00:00: mouth in [place] 00 the Medical morning. Branch rosuvastati 0 Yes [id number] 20mg Take 1 Univers n (CRESTOR) 9-27 tablet by ity of 20 mg 00:00: mouth at [place] tablet 00 bedtime. Medical Branch ezetimibe 0 Yes [id number] 10mg Take 1 U nivers 10 mg 9-27 tablet by ity of tablet 00:00: mouth in [place] 00 the Medical morning. Branch rosuvastati 2021-0 Yes [id number] 20mg Take 1 Univers n (CRESTOR) 9-27 tablet by ity of 20 mg 00:00: mouth at [place] tablet 00 bedtime. Medical Branch ezetimibe 2021-0 Yes [id number] 10mg Take 1 U nivers 10 mg 9-27 tablet by ity of tablet 00:00: mouth in [place] 00 the Medical morning. Branch rosuvastati 2021-0 Yes [id number] 20mg Take 1 Univers n (CRESTOR) 9-27 tablet by ity of 20 mg 00:00: mouth at [place] tablet 00 bedtime. Medical Branch ezetimibe 0 Yes [id number] 10mg Take 1 U nivers 10 mg 9-27 tablet by ity of tablet 00:00: mouth in [place] 00 the Medical morning. Branch rosuvastati 2021-0 Yes [id number] 20mg Take 1 Univers n (CRESTOR) 9-27 tablet by ity of 20 mg 00:00: mouth at [place] tablet 00 bedtime. Medical Branch ezetimibe 0 Yes [id number] 10mg Take 1 U nivers 10 mg 9-27 tablet by ity of tablet 00:00: mouth in [place] 00 the Medical morning. Branch rosuvastati 2021-0 Yes [id number] 20mg Take 1 Univers n (CRESTOR) 9-27 tablet by ity of 20 mg 00:00: mouth at [place] tablet 00 bedtime. Medical Branch ezetimibe 2021-0 Yes [id number] 10mg Take 1 U nivers 10 mg 9-27 tablet by ity of tablet 00:00: mouth in [place] 00 the Medical morning. Branch rosuvastati 2021-0 Yes [id number] 20mg Take 1 Univers n (CRESTOR) 9-27 tablet by ity of 20 mg 00:00: mouth at [place] tablet 00 bedtime. Medical Branch ezetimibe 2021-0 Yes [id number] 10mg Take 1 U nivers 10 mg 9-27 tablet by ity of tablet 00:00: mouth in [place] 00 the Medical morning. Branch rosuvastati 2021-0 Yes [id number] 20mg Take 1 Univers n (CRESTOR) 9-27 tablet by ity of 20 mg 00:00: mouth at [place] tablet 00 bedtime. Medical Branch ezetimibe 0 Yes [id number] 10mg Take 1 U nivers 10 mg 9-27 tablet by ity of tablet 00:00: mouth in [place] 00 the Medical morning. Branch rosuvastati 0 Yes [id number] 20mg Take 1 Univers n (CRESTOR) 9-27 tablet by ity of 20 mg 00:00: mouth at [place] tablet 00 bedtime. Medical Branch ezetimibe 0 Yes [id number] 10mg Take 1 U nivers 10 mg 9-27 tablet by ity of tablet 00:00: mouth in [place] 00 the Medical morning. Branch rosuvastati 0 Yes [id number] 20mg Take 1 Univers n (CRESTOR) 9-27 tablet by ity of 20 mg 00:00: mouth at [place] tablet 00 bedtime. Medical Branch ezetimibe 0 Yes [id number] 10mg Take 1 U nivers 10 mg 9-27 tablet by ity of tablet 00:00: mouth in [place] 00 the Medical morning. Branch rosuvastati 0 Yes [id number] 20mg Take 1 Univers n (CRESTOR) 9-27 tablet by ity of 20 mg 00:00: mouth at [place] tablet 00 bedtime. Medical Branch ezetimibe Yes [id number] 10mg Take 1 U nivers 10 mg 9-27 tablet by ity of tablet 00:00: mouth in [place] 00 the Medical morning. Branch icosapent 2021- No [id number] 2g Take 2 Univers ethyL 9-14 10-15 capsules ity of (VASCEPA) 1 00:00: 04:59 by mouth [place] gram 00 :00 in the Medical capsule morning Branch and 2 capsules in the evening. Do all this for 30 days. icosapent 2021- No [id number] 2g Take 2 Univers ethyL 9-14 10-15 capsules ity of (VASCEPA) 1 00:00: 04:59 by mouth [place] gram 00 :00 in the Medical capsule morning Branch and 2 capsules in the evening. Do all this for 30 days. icosapent 2021- No [id number] 2g Take 2 Univers ethyL 9-14 10-15 capsules ity of (VASCEPA) 1 00:00: 04:59 by mouth [place] gram 00 :00 in the Medical capsule morning Branch and 2 capsules in the evening. Do all this for 30 days. icosapent 2021- No [id number] 2g Take 2 Univers ethyL 9-14 10-15 capsules ity of (VASCEPA) 1 00:00: 04:59 by mouth [place] gram 00 :00 in the Medical capsule morning Branch and 2 capsules in the evening. Do all this for 30 days. icosapent 2021- No [id number] 2g Take 2 Univers ethyL 9-14 10-15 capsules ity of (VASCEPA) 1 00:00: 04:59 by mouth [place] gram 00 :00 in the Medical capsule morning Branch and 2 capsules in the evening. Do all this for 30 days. semaglutide Yes [id number] .5mg inject 0.5 Univers (OZEMPIC) 9-12 mg under ity of 0.25 mg or 00:00: the skin Scooter as 0.5 mg(2 00 weekly. Medical mg/1.5 mL) Start 0.25 Bra nch PnIj mg weekly for 4 weeks, then 0.5 mg thereafter glipiZIDE Yes [id number] 10mg Take 1 U nivers XL 10 mg 24 9-12 tablet by ity of hr tablet 00:00: mouth [place] 00 daily with Medical breakfast. Branch metformin Yes [id number] 750mg Take 1 Univers ER 750 mg 9-12 tablet by ity o f 24 hr 00:00: mouth [place] tablet 00 daily with Medical breakfast. Branch semaglutide Yes [id number] .5mg inject 0.5 Univers (OZEMPIC) 9-12 mg under ity of 0.25 mg or 00:00: the skin [place] as 0.5 mg(2 00 weekly. Medical mg/1.5 mL) Start 0.25 Bra nch PnIj mg weekly for 4 weeks, then 0.5 mg thereafter glipiZIDE Yes [id number] 10mg Take 1 U nivers XL 10 mg 24 9-12 tablet by ity of hr tablet 00:00: mouth [place] 00 daily with Medical breakfast. Branch metformin 2021-0 Yes [id number] 750mg Take 1 Univers ER 750 mg 9-12 tablet by ity o f 24 hr 00:00: mouth [place] tablet 00 daily with Medical breakfast. Branch semaglutide 2021-0 Yes [id number] .5mg inject 0.5 Univers (OZEMPIC) 9-12 mg under ity of 0.25 mg or 00:00: the skin [place] 0.5 mg(2 00 weekly. Medical mg/1.5 mL) Start 0.25 Bra nch PnIj mg weekly for 4 weeks, then 0.5 mg thereafter glipiZIDE 2021-0 Yes [id number] 10mg Take 1 U nivers XL 10 mg 24 9-12 tablet by ity of hr tablet 00:00: mouth [place] 00 daily with Medical breakfast. Branch metformin 2021-0 Yes [id number] 750mg Take 1 Univers ER 750 mg 9-12 tablet by ity o f 24 hr 00:00: mouth [place] tablet 00 daily with Medical breakfast. Branch semaglutide 2021-0 Yes [id number] .5mg inject 0.5 Univers (OZEMPIC) 9-12 mg under ity of 0.25 mg or 00:00: the skin [place] 0.5 mg(2 00 weekly. Medical mg/1.5 mL) Start 0.25 Bra nch PnIj mg weekly for 4 weeks, then 0.5 mg thereafter glipiZIDE 2021-0 Yes [id number] 10mg Take 1 U nivers XL 10 mg 24 9-12 tablet by ity of hr tablet 00:00: mouth [place] 00 daily with Medical breakfast. Branch metformin 2021-0 Yes [id number] 750mg Take 1 Univers ER 750 mg 9-12 tablet by ity o f 24 hr 00:00: mouth [place] tablet 00 daily with Medical breakfast. Branch semaglutide 2021-0 Yes [id number] .5mg inject 0.5 Univers (OZEMPIC) 9-12 mg under ity of 0.25 mg or 00:00: the skin [place] 0.5 mg(2 00 weekly. Medical mg/1.5 mL) Start 0.25 Bra nch PnIj mg weekly for 4 weeks, then 0.5 mg thereafter glipiZIDE 2021-0 Yes [id number] 10mg Take 1 U nivers XL 10 mg 24 9-12 tablet by ity of hr tablet 00:00: mouth [place] 00 daily with Medical breakfast. Branch metformin 2021-0 Yes [id number] 750mg Take 1 Univers ER 750 mg 9-12 tablet by ity o f 24 hr 00:00: mouth [place] tablet 00 daily with Medical breakfast. Branch semaglutide 2021-0 Yes [id number] .5mg inject 0.5 Univers (OZEMPIC) 9-12 mg under ity of 0.25 mg or 00:00: the [place] 0.5 mg(2 00 weekly. Medical mg/1.5 mL) Start 0.25 Bra nch PnIj mg weekly for 4 weeks, then 0.5 mg thereafter glipiZIDE 2021-0 Yes [id number] 10mg Take 1 U nivers XL 10 mg 24 9-12 tablet by ity of hr tablet 00:00: mouth [place] 00 daily with Medical breakfast. Branch metformin 2021-0 Yes [id number] 750mg Take 1 Univers ER 750 mg 9-12 tablet by ity o f 24 hr 00:00: mouth [place] tablet 00 daily with Medical breakfast. Branch semaglutide 2021-0 Yes [id number] .5mg inject 0.5 Univers (OZEMPIC) 9-12 mg under ity of 0.25 mg or 00:00: the skin [place] 0.5 mg(2 00 weekly. Medical mg/1.5 mL) Start 0.25 Bra nch PnIj mg weekly for 4 weeks, then 0.5 mg thereafter glipiZIDE 2021-0 Yes [id number] 10mg Take 1 U nivers XL 10 mg 24 9-12 tablet by ity of hr tablet 00:00: mouth [place] 00 daily with Medical breakfast. Branch metformin 2021-0 Yes [id number] 750mg Take 1 Univers ER 750 mg 9-12 tablet by ity o f 24 hr 00:00: mouth [place] tablet 00 daily with Medical breakfast. Branch semaglutide 2021-0 Yes [id number] .5mg inject 0.5 Univers (OZEMPIC) 9-12 mg under ity of 0.25 mg or 00:00: the [place] 0.5 mg(2 00 weekly. Medical mg/1.5 mL) Start 0.25 Bra nch PnIj mg weekly for 4 weeks, then 0.5 mg thereafter glipiZIDE 2021-0 Yes [id number] 10mg Take 1 U nivers XL 10 mg 24 9-12 tablet by ity of hr tablet 00:00: mouth [place] 00 daily with Medical breakfast. Branch metformin 2021-0 Yes [id number] 750mg Take 1 Univers ER 750 mg 9-12 tablet by ity o f 24 hr 00:00: mouth [place] tablet 00 daily with Medical breakfast. Branch semaglutide 2021-0 Yes [id number] .5mg inject 0.5 Univers (OZEMPIC) 9-12 mg under ity of 0.25 mg or 00:00: the [place] 0.5 mg(2 00 weekly. Medical mg/1.5 mL) Start 0.25 Bra nch PnIj mg weekly for 4 weeks, then 0.5 mg thereafter glipiZIDE 2021-0 Yes [id number] 10mg Take 1 U nivers XL 10 mg 24 9-12 tablet by ity of hr tablet 00:00: mouth [place] 00 daily with Medical breakfast. Branch metformin 2021-0 Yes [id number] 750mg Take 1 Univers ER 750 mg 9-12 tablet by ity o f 24 hr 00:00: mouth [place] tablet 00 daily with Medical breakfast. Branch semaglutide 2021-0 Yes [id number] .5mg inject 0.5 Univers (OZEMPIC) 9-12 mg under ity of 0.25 mg or 00:00: the [place] 0.5 mg(2 00 weekly. Medical mg/1.5 mL) Start 0.25 Bra nch PnIj mg weekly for 4 weeks, then 0.5 mg thereafter glipiZIDE 2021-0 Yes [id number] 10mg Take 1 U nivers XL 10 mg 24 9-12 tablet by ity of hr tablet 00:00: mouth [place] 00 daily with Medical breakfast. Branch metformin 2021-0 Yes [id number] 750mg Take 1 Univers ER 750 mg 9-12 tablet by ity o f 24 hr 00:00: mouth [place] tablet 00 daily with Medical breakfast. Branch semaglutide 2021-0 Yes [id number] .5mg inject 0.5 Univers (OZEMPIC) 9-12 mg under ity of 0.25 mg or 00:00: the [place] 0.5 mg(2 00 weekly. Medical mg/1.5 mL) Start 0.25 Bra nch PnIj mg weekly for 4 weeks, then 0.5 mg thereafter glipiZIDE 2021-0 Yes [id number] 10mg Take 1 U nivers XL 10 mg 24 9-12 tablet by ity of hr tablet 00:00: mouth [place] 00 daily with Medical breakfast. Branch metformin 2021-0 Yes [id number] 750mg Take 1 Univers ER 750 mg 9-12 tablet by ity o f 24 hr 00:00: mouth [place] tablet 00 daily with Medical breakfast. Branch semaglutide 2021-0 Yes [id number] .5mg inject 0.5 Univers (OZEMPIC) 9-12 mg under ity of 0.25 mg or 00:00: the [place] 0.5 mg(2 00 weekly. Medical mg/1.5 mL) Start 0.25 Bra nch PnIj mg weekly for 4 weeks, then 0.5 mg thereafter glipiZIDE 2021-0 Yes [id number] 10mg Take 1 U nivers XL 10 mg 24 9-12 tablet by ity of hr tablet 00:00: mouth [place] 00 daily with Medical breakfast. Branch metformin 2021-0 Yes [id number] 750mg Take 1 Univers ER 750 mg 9-12 tablet by ity o f 24 hr 00:00: mouth [place] tablet 00 daily with Medical breakfast. Branch semaglutide 2021-0 Yes [id number] .5mg inject 0.5 Univers (OZEMPIC) 9-12 mg under ity of 0.25 mg or 00:00: the [place] 0.5 mg(2 00 weekly. Medical mg/1.5 mL) Start 0.25 Bra nch PnIj mg weekly for 4 weeks, then 0.5 mg thereafter glipiZIDE 2021-0 Yes [id number] 10mg Take 1 U nivers XL 10 mg 24 9-12 tablet by ity of hr tablet 00:00: mouth [place] 00 daily with Medical breakfast. Branch metformin 2021-0 Yes [id number] 750mg Take 1 Univers ER 750 mg 9-12 tablet by ity o f 24 hr 00:00: mouth [place] tablet 00 daily with Medical breakfast. Branch semaglutide 2021-0 Yes [id number] .5mg inject 0.5 Univers (OZEMPIC) 9-12 mg under ity of 0.25 mg or 00:00: the [place] 0.5 mg(2 00 weekly. Medical mg/1.5 mL) Start 0.25 Bra nch PnIj mg weekly for 4 weeks, then 0.5 mg thereafter semaglutide Yes [id number] .5mg inject 0.5 Univers (OZEMPIC) 9-12 mg under ity of 0.25 mg or 00:00: the [place] 0.5 mg(2 00 weekly. Medical mg/1.5 mL) Start 0.25 Bra nch PnIj mg weekly for 4 weeks, then 0.5 mg thereafter semaglutide Yes [id number] .5mg inject 0.5 Univers (OZEMPIC) 9-12 mg under ity of 0.25 mg or 00:00: the skin [place] 0.5 mg(2 00 weekly. Medical mg/1.5 mL) Start 0.25 Bra nch PnIj mg weekly for 4 weeks, then 0.5 mg thereafter glipiZIDE 2021- No [id number] 10mg Take 1 Univers XL 10 mg 24 06-20 12-30 tablet by it y of hr tablet 00:00: 00:00 mouth [place] 00 :00 daily with Medical breakfast. Branch metformin 2021- No [id number] 750mg Take 1 Univers ER 750 mg 9-30 tablet by ity of 24 hr 00:00: 00:00 mouth [place] tablet 00 :00 daily with Medical breakfast. Branch glipiZIDE 2021- No [id number] 10mg Take 1 Univers XL 10 mg 24 06-20 12-30 tablet by it y of hr tablet 00:00: 00:00 mouth [place] 00 :00 daily with Medical breakfast. Branch metformin 2021- No [id number] 750mg Take 1 Univers ER 750 mg 9 12-30 tablet by ity of 24 hr 00:00: 00:00 mouth [place] tablet 00 :00 daily with Medical breakfast. Branch clobetasoL Yes [id number] Apply to Univers 0.05 % 8-05 area(s) 2 ity of ointment 00:00: (two) [place] 00 times Medical daily. Branch clobetasoL Yes [id number] Apply to Univers 0.05 % 8-05 area(s) 2 ity of ointment 00:00: (two) [place] 00 times Medical daily. Branch clobetasoL 2022-0 Yes [id number] Apply to Univers 0.05 % 8-05 area(s) 2 ity of ointment 00:00: (two) [place] 00 times Medical daily. Branch clobetasoL 2022-0 Yes [id number] Apply to Univers 0.05 % 8-05 area(s) 2 ity of ointment 00:00: (two) [place] 00 times Medical daily. Branch clobetasoL 2022-0 Yes [id number] Apply to Univers 0.05 % 8-05 area(s) 2 ity of ointment 00:00: (two) [place] 00 times Medical daily. Branch clobetasoL 2022-0 Yes [id number] Apply to Univers 0.05 % 8-05 area(s) 2 ity of ointment 00:00: (two) [place] 00 times Medical daily. Branch clobetasoL 2022-0 Yes [id number] Apply to Univers 0.05 % 8-05 area(s) 2 ity of ointment 00:00: (two) [place] 00 times Medical daily. Branch clobetasoL 2022-0 Yes [id number] Apply to Univers 0.05 % 8-05 area(s) 2 ity of ointment 00:00: (two) [place] 00 times Medical daily. Branch clobetasoL 2022-0 Yes [id number] Apply to Univers 0.05 % 8-05 area(s) 2 ity of ointment 00:00: (two) [place] 00 times Medical daily. Branch clobetasoL 2022-0 Yes [id number] Apply to Univers 0.05 % 8-05 area(s) 2 ity of ointment 00:00: (two) [place] 00 times Medical daily. Branch clobetasoL 2022-0 Yes [id number] Apply to Univers 0.05 % 8-05 area(s) 2 ity of ointment 00:00: (two) [place] 00 times Medical daily. Branch clobetasoL 2022-0 Yes [id number] Apply to Univers 0.05 % 8-05 area(s) 2 ity of ointment 00:00: (two) [place] 00 times Medical daily. Branch clobetasoL 2-0 Yes [id number] Apply to Univers 0.05 % 8-05 area(s) 2 ity of ointment 00:00: (two) [place] 00 times Medical daily. Branch clobetasoL 2-0 Yes [id number] Apply to Univers 0.05 % 8-05 area(s) 2 ity of ointment 00:00: (two) [place] 00 times Medical daily. Branch clobetasoL 2-0 Yes [id number] Apply to Univers 0.05 % 8-05 area(s) 2 ity of ointment 00:00: (two) [place] 00 times Medical daily. Branch clobetasoL 2-0 Yes [id number] Apply to Univers 0.05 % 8-05 area(s) 2 ity of ointment 00:00: (two) [place] 00 times Medical daily. Branch lisinopriL 2021-0 Yes [id number] 2.5mg Take 1 Univers 2.5 mg 6-27 tablet by ity of tablet 00:00: mouth [place] 00 daily. Medical Branch lisinopriL 2021-0 Yes [id number] 2.5mg Take 1 Univers 2.5 mg 6-27 tablet by ity of tablet 00:00: mouth [place] 00 daily. Medical Branch lisinopriL 2021-0 Yes [id number] 2.5mg Take 1 Univers 2.5 mg 6-27 tablet by ity of tablet 00:00: mouth [place] 00 daily. Medical Branch lisinopriL 2021-0 Yes [id number] 2.5mg Take 1 Univers 2.5 mg 6-27 tablet by ity of tablet 00:00: mouth [place] 00 daily. Medical Branch lisinopriL 2021-0 Yes [id number] 2.5mg Take 1 Univers 2.5 mg 6-27 tablet by ity of tablet 00:00: mouth [place] 00 daily. Medical Branch lisinopriL 2021-0 2- No [id number] 2.5mg Take 1 Univers 2.5 mg 6-27 10-13 tablet by ity of tablet 00:00: 00:00 mouth [place] 00 :00 daily. Medical Branch Cholecalcif 2021-0 Yes 2{capsu Take 2 U nivers ricardo, 5-29 le} capsules ity of Vitamin D3, 00:00: by mouth [place] 50 mcg 00 daily. Medical (2,000 Branch unit) capsule guanFACINE 2022-0 Yes TAKE 1 Unive rs ER 3 [...] 00:00: MOUTH [place] NIGHTLY Medical Branch Cholecalcif 2-0 Yes 2{capsu Take 2 U nivers ricardo, 5-29 le} capsules ity of Vitamin D3, 00:00: by mouth [place] 50 mcg 00 daily. Medical (2,000 Branch unit) capsule guanFACINE 2022-0 Yes TAKE 1 Unive rs ER 3 mg 5-29 TABLET BY ity of tablet 00:00: MOUTH [place] 00 NIGHTLY Medical Branch Cholecalcif 2022-0 Yes 2{capsu Take 2 U nivers ricardo, 5-29 le} capsules ity of Vitamin D3, 00:00: by mouth [place] 50 mcg 00 daily. Medical (2,000 Branch unit) capsule guanFACINE 2022-0 Yes TAKE 1 Unive rs ER 3 mg 5-29 TABLET BY ity of tablet 00:00: MOUTH [place] NIGHTLY Medical Branch Cholecalcif 2-0 Yes 2{capsu Take 2 U nivers ricardo, 5-29 le} capsules ity of Vitamin D3, 00:00: by mouth [place] 50 mcg 00 daily. Medical (2,000 Branch unit) capsule guanFACINE 2-0 Yes TAKE 1 Unive rs ER 3 mg 5-29 TABLET BY ity of tablet 00:00: MOUTH [place] NIGHTLY Medical Branch Cholecalcif 2021-0 Yes 2{capsu Take 2 U nivers ricardo, 5-29 le} capsules ity of Vitamin D3, 00:00: by mouth [place] 50 mcg 00 daily. Medical (2,000 Branch unit) capsule guanFACINE 2021-0 Yes TAKE 1 Unive rs ER 3 mg 5-29 TABLET BY ity of tablet 00:00: MOUTH [place] NIGHTLY Medical Branch Cholecalcif 2021-0 Yes 2{capsu Take 2 U nivers ricardo, 5-29 le} capsules ity of Vitamin D3, 00:00: by mouth [place] 50 mcg 00 daily. Medical (2,000 Branch unit) capsule guanFACINE 2021-0 Yes TAKE 1 Unive rs ER 3 mg 5-29 TABLET BY ity of tablet 00:00: MOUTH [place] NIGHTLY Medical Branch Cholecalcif 2021-0 Yes 2{capsu Take 2 U nivers ricardo, 5-29 le} capsules ity of Vitamin D3, 00:00: by mouth [place] 50 mcg 00 daily. Medical (2,000 Branch unit) capsule guanFACINE 2-0 Yes TAKE 1 Unive rs ER 3 mg 5-29 TABLET BY ity of tablet 00:00: MOUTH [place] NIGHTLY Medical Branch Cholecalcif 2-0 Yes 2{capsu Take 2 U nivers ricardo, 5-29 le} capsules ity of Vitamin D3, 00:00: by mouth [place] 50 mcg 00 daily. Medical (2,000 Branch unit) capsule guanFACINE 2022-0 Yes TAKE 1 Unive rs ER 3 mg 5-29 TABLET BY ity of tablet 00:00: MOUTH [place] NIGHTLY [facility] Branch Cholecalcif 2022-0 Yes 2{capsu Take 2 U nivers ricardo, [...] TABLET BY ity of tablet 00:00: MOUTH [place] 00 NIGHTLY Medical Branch Cholecalcif 2021-0 Yes 2{capsu Take 2 U nivers ricardo, 5-29 le} capsules ity of Vitamin D3, 00:00: by mouth [place] 50 mcg 00 daily. Medical (2,000 Branch unit) capsule guanFACINE 2021-0 Yes TAKE 1 Unive rs ER 3 mg 5-29 TABLET BY ity of tablet 00:00: MOUTH [place] NIGHTLY Medical Branch Cholecalcif 2021-0 Yes 2{capsu Take 2 U nivers ricardo, 5-29 le} capsules ity of Vitamin D3, 00:00: by mouth [place] 50 mcg 00 daily. Medical (2,000 Branch unit) capsule guanFACINE 2021-0 Yes TAKE 1 Unive rs ER 3 mg 5-29 TABLET BY ity of tablet 00:00: MOUTH [place] NIGHTLY [facility] Branch Cholecalcif 2021-0 Yes 2{capsu Take 2 U nivers ricardo, 5-29 le} capsules ity of Vitamin D3, 00:00: by mouth [place] 50 mcg 00 daily. Medical (2,000 Branch unit) capsule guanFACINE 2021-0 Yes TAKE 1 Unive rs ER 3 mg 5-29 TABLET BY ity of tablet 00:00: MOUTH [place] 00 NIGHTLY Medical Branch ROSUVASTATI 2021-0 Yes [id number] 20mg TAKE 1 [facility] N 20 mg 5-26 TABLET BY ity of tablet 00:00: MOUTH AT [place] 00 BEDTIME. Medical MUST BE Branch SEEN FOR FURTHER REFILLS ROSUVASTATI 2021-0 Yes [id number] 20mg TAKE 1 Univers N 20 mg 5-26 TABLET BY ity of tablet 00:00: MOUTH AT [place] 00 BEDTIME. Medical MUST BE Branch SEEN FOR FURTHER REFILLS ROSUVASTATI 2021-0 2- No [id number] 20mg TAKE 1 Univers N 20 mg 5-26 - TABLET BY ity of tablet 00:00: 00:00 MOUTH AT [place] 00 :00 BEDTIME. Medical MUST BE Branch SEEN FOR FURTHER REFILLS ROSUVASTATI 0 2021- No [id number] 20mg TAKE 1 Univers N 20 mg 5-26 - TABLET BY ity of tablet 00:00: 00:00 MOUTH AT [place] 00 :00 BEDTIME. Medical MUST BE Branch SEEN FOR FURTHER REFILLS famotidine Yes TAKE 1 Unive rs 20 mg 5-02 TABLET BY ity of tablet 00:00: MOUTH [place] 00 EVERY 12 Medical HOURS FOR Branch 10 DAYS ondansetron Yes TAKE 1 Univ ers 4 mg tablet 5-02 TABLET BY ity of 00:00: [facility] 00 EVERY 12 Medical HOURS Branch NEEDED famotidine 2021-0 Yes TAKE 1 Unive rs 20 mg 5-02 TABLET BY ity of tablet 00:00: MOUTH [place] 00 EVERY 12 Medical HOURS FOR Branch 10 DAYS ondansetron 0 Yes TAKE 1 Univ ers 4 mg tablet 5-02 TABLET BY ity of 00:00: MOUTH [place] 00 EVERY 12 Medical HOURS Branch NEEDED famotidine 2021-0 Yes TAKE 1 Unive rs 20 mg 5-02 TABLET BY ity of tablet 00:00: MOUTH [place] 00 EVERY 12 Medical HOURS FOR Branch 10 DAYS ondansetron 2021-0 Yes TAKE 1 Univ ers 4 mg tablet 5-02 TABLET BY ity of 00:00: MOUTH [place] 00 EVERY 12 Medical HOURS Branch NEEDED famotidine 2021-0 Yes TAKE 1 Unive rs 20 mg 5-02 TABLET BY ity of tablet 00:00: MOUTH [place] 00 EVERY 12 Medical HOURS FOR Branch 10 DAYS ondansetron 2021-0 Yes TAKE 1 Univ ers 4 mg tablet 5-02 TABLET BY ity of 00:00: MOUTH [place] 00 EVERY 12 Medical HOURS Branch NEEDED famotidine 2021-0 Yes TAKE 1 Unive rs 20 mg 5-02 TABLET BY ity of tablet 00:00: MOUTH [place] 00 EVERY 12 Medical HOURS FOR Branch [...] TABLET BY ity of tablet 00:00: MOUTH 00 EVERY 12 Medical HOURS FOR Branch 10 DAYS ondansetron 2021-0 Yes TAKE 1 Univ ers 4 mg tablet 5-02 TABLET BY ity of 00:00: MOUTH 00 EVERY 12 Medical HOURS Branch NEEDED famotidine 202-0 Yes TAKE 1 Unive rs [...] TABLET BY ity of tablet 00:00: MOUTH 00 EVERY 12 Medical HOURS FOR Branch [...] TABLET BY ity of tablet 00:00: MOUTH 00 EVERY 12 Medical HOURS FOR Branch 10 DAYS ondansetron 2-0 Yes TAKE 1 Univ ers 4 mg tablet 5-02 TABLET BY ity of 00:00: MOUTH 00 EVERY 12 Medical HOURS Branch NEEDED famotidine 2022-0 Yes TAKE 1 Unive rs 20 mg 5-02 TABLET BY ity of tablet 00:00: MOUTH 00 EVERY 12 Medical HOURS FOR Branch 10 DAYS ondansetron 2-0 Yes TAKE 1 Univ ers 4 mg tablet 5-02 TABLET BY ity of 00:00: MOUTH 00 EVERY 12 Medical HOURS Branch NEEDED famotidine 2022-0 Yes TAKE 1 Unive rs 20 mg 5-02 TABLET BY ity of tablet 00:00: MOUTH 00 EVERY 12 Medical HOURS FOR Branch 10 DAYS ondansetron 2-0 Yes TAKE 1 Univ ers 4 mg tablet 5-02 TABLET BY ity of 00:00: MOUTH 00 EVERY 12 Medical HOURS Branch NEEDED famotidine 2022-0 Yes TAKE 1 Unive rs 20 mg 5-02 TABLET BY ity of tablet 00:00: MOUTH 00 EVERY 12 Medical HOURS FOR Branch 10 DAYS ondansetron 2-0 Yes TAKE 1 Univ ers 4 mg tablet 5-02 TABLET BY ity of 00:00: MOUTH [place] 00 EVERY 12 Medical HOURS Branch NEEDED OXcarbazepi 2022-0 Yes 600mg Take 600 U nivers ne 600 mg 4-25 mg by ity of tablet 00:00: mouth 2 00 (two) Medical times Branch daily. OXcarbazepi 2022-0 Yes 600mg Take 600 U nivers ne 600 mg 4-25 mg by ity of tablet 00:00: mouth 2 00 (two) Medical times Branch daily. OXcarbazepi 2022-0 Yes 600mg Take 600 U nivers ne 600 mg 4-25 mg by ity of tablet 00:00: mouth 2 (two) Medical times Branch daily. OXcarbazepi 2022-0 [...] by ity of tablet 00:00: mouth 2 [place] (two) Medical times Branch daily. OXcarbazepi 2022-0 Yes 600mg Take 600 U nivers ne 600 mg 4-25 mg by ity of tablet 00:00: mouth 2 [place] (two) Medical times Branch daily. ARIPiprazol 2022-0 Yes 5mg Take 5 mg U nivers e 5 mg 4-12 by mouth ity of tablet 00:00: at [place] [address] bedtime. Medical Branch ARIPiprazol 2022-0 Yes 5mg Take 5 mg U nivers e 5 mg 4-12 by mouth ity of tablet 00:00: at [place] [address] bedtime. Medical Branch ARIPiprazol 2022-0 Yes 5mg Take 5 mg U nivers e 5 mg 4-12 by mouth ity of tablet 00:00: at [place] [address] bedtime. Medical Branch ARIPiprazol 2022-0 Yes 5mg Take 5 mg U nivers e 5 mg 4-12 by mouth ity of tablet 00:00: at [place] [address] bedtime. Medical Branch ARIPiprazol 2022-0 Yes 5mg Take 5 mg U nivers e 5 mg 4-12 by mouth ity of tablet 00:00: at [place] [address] bedtime. Medical Branch ARIPiprazol 2022-0 Yes 5mg Take 5 mg U nivers e 5 mg 4-12 by mouth ity of tablet 00:00: at [place] [address] bedtime. Medical Branch ARIPiprazol 2022-0 Yes 5mg Take 5 mg U nivers e 5 mg 4-12 by mouth ity of tablet 00:00: at [place] [address] bedtime. Medical Branch ARIPiprazol 2022-0 Yes 5mg Take 5 mg U nivers e 5 mg 4-12 by mouth ity of tablet 00:00: at [place] [address] bedtime. Medical Branch ARIPiprazol 2022-0 Yes 5mg Take 5 mg U nivers e 5 mg 4-12 by mouth ity of tablet 00:00: at [place] [address] bedtime. Medical Branch ARIPiprazol 2022-0 Yes 5mg Take 5 mg U nivers e 5 mg 4-12 by mouth ity of tablet 00:00: at [place] [address] bedtime. Medical Branch ARIPiprazol 2-0 Yes 5mg Take 5 mg U nivers e 5 mg 4-12 by mouth ity of tablet 00:00: at [place] [address] bedtime. Medical Branch ARIPiprazol 2-0 Yes 5mg Take 5 mg U nivers e 5 mg 4-12 by mouth ity of tablet 00:00: at [place] [address] bedtime. Medical Branch ARIPiprazol 2-0 Yes 5mg Take 5 mg U nivers e 5 mg 4-12 by mouth ity of tablet 00:00: at [place] [address] bedtime. Medical Branch ARIPiprazol 2-0 Yes 5mg Take 5 mg U nivers e 5 mg 4-12 by mouth ity of tablet 00:00: at [place] [address] bedtime. Medical Branch ARIPiprazol 2-0 Yes 5mg Take 5 mg U nivers e 5 mg 4-12 by mouth ity of tablet 00:00: at [place] [address] bedtime. Medical Branch ARIPiprazol 2-0 Yes 5mg Take 5 mg U nivers e 5 mg 4-12 by mouth ity of tablet 00:00: at [place] [address] bedtime. Medical Branch ivermectin 2-0 Yes [id number] 13.5mg Take 4.5 Univers 3 mg tablet 1-12 tablets by it y of 00:00: mouth [place] weekly. Medical Branch ivermectin 2-0 Yes [id number] 13.5mg Take 4.5 Univers 3 mg tablet 1-12 tablets by it y of 00:00: mouth [place] weekly. Medical Branch ivermectin 2-0 Yes [id number] 13.5mg Take 4.5 Univers 3 mg tablet 1-12 tablets by it y of 00:00: mouth [place] weekly. Medical Branch ivermectin 2-0 Yes [id number] 13.5mg Take 4.5 Univers 3 mg tablet 1-12 tablets by it y of 00:00: mouth [place] weekly. Medical Branch ivermectin 2-0 Yes [id number] 13.5mg Take 4.5 Univers 3 mg tablet 1-12 tablets by it y of 00:00: mouth [place] weekly. Medical Branch ivermectin 2-0 Yes [id number] 13.5mg Take 4.5 Univers 3 mg tablet 1-12 tablets by it y of 00:00: mouth [place] 00 weekly. Medical Branch ivermectin 2021-0 Yes [id number] 13.5mg Take 4.5 Univers 3 mg tablet 1-12 tablets by it y of 00:00: mouth [place] 00 weekly. Medical Branch ivermectin 2021-0 Yes [id number] 13.5mg Take 4.5 Univers 3 mg tablet 1-12 tablets by it y of 00:00: mouth [place] 00 weekly. Medical Branch ivermectin 2021-0 Yes [id number] 13.5mg Take 4.5 Univers 3 mg tablet 1-12 tablets by it y of 00:00: mouth [place] 00 weekly. Medical Branch ivermectin 2021-0 Yes [id number] 13.5mg Take 4.5 Univers 3 mg tablet 1-12 tablets by it y of 00:00: mouth [place] 00 weekly. Medical Branch ivermectin 2021-0 Yes [id number] 13.5mg Take 4.5 Univers 3 mg tablet 1-12 tablets by it y of 00:00: mouth [place] 00 weekly. Medical Branch ivermectin 2021-0 Yes [id number] 13.5mg Take 4.5 Univers 3 mg tablet 1-12 tablets by it y of 00:00: mouth [place] 00 weekly. Medical Branch ivermectin 2021-0 Yes [id number] 13.5mg Take 4.5 Univers 3 mg tablet 1-12 tablets by it y of 00:00: mouth [place] 00 weekly. Medical Branch ivermectin 2021-0 Yes [id number] 13.5mg Take 4.5 Univers 3 mg tablet 1-12 tablets by it y of 00:00: mouth [place] 00 weekly. Medical Branch ivermectin 2021-0 Yes [id number] 13.5mg Take 4.5 Univers 3 mg tablet 1-12 tablets by it y of 00:00: mouth [place] 00 weekly. Medical Branch ivermectin 2021-0 Yes [id number] 13.5mg Take 4.5 Univers 3 mg tablet 1-12 tablets by it y of 00:00: mouth [place] 00 weekly. Medical Branch trazodone 2020-10 Yes Take by Unive rs HCl 1-29 mouth. ity of (TRAZODONE 13:30: [place] ORAL) 06 Medical Branch citalopram 2020-10 Yes 10mg Take 10 mg U nivers 10 mg 1-29 by mouth ity of tablet 13:30: daily. [facility] Branch trazodone 2020-10 Yes Take by Unive rs HCl 29 mouth. ity of (TRAZODONE 13:30: [place] ORAL) [facility] citalopram 2020-10 Yes 10mg Take 10 mg U nivers 10 mg 1-29 by mouth ity of tablet 13:30: daily. [facility] Branch trazodone 2020-10 Yes Take by Unive rs HCl 29 mouth. ity of (TRAZODONE 13:30: [place] ORAL) [facility] citalopram 2020-10 Yes 10mg Take 10 mg U nivers 10 mg 1-29 by mouth ity of tablet 13:30: daily. [facility] Branch trazodone 2020-10 Yes Take by Unive rs HCl 11-06 mouth. ity of (TRAZODONE 13:30: [place] ORAL) [facility] citalopram 2020-10 Yes 10mg Take 10 mg U nivers 10 mg 1-29 by mouth ity of tablet 13:30: daily. [facility] Branch trazodone 2020-10 Yes Take by Unive rs HCl 11-06 mouth. ity of (TRAZODONE 13:30: [place] ORAL) [facility] citalopram 2020-10 Yes 10mg Take 10 mg U nivers 10 mg 1-29 by mouth ity of tablet 13:30: daily. [facility] Branch trazodone 2020-10 Yes Take by Unive rs HCl 29 mouth. ity of (TRAZODONE 13:30: [place] ORAL) [facility] citalopram 2020-10 Yes 10mg Take 10 mg U nivers 10 mg 1-29 by mouth ity of tablet 13:30: daily. [facility] Branch trazodone 2020-10 Yes Take by Unive rs HCl 29 mouth. ity of (TRAZODONE 13:30: [place] ORAL) [facility] citalopram 2020-10 Yes 10mg Take 10 mg U nivers 10 mg 1-29 by mouth ity of tablet 13:30: daily. [facility] Branch trazodone 2020-10 Yes Take by Unive [...] by mouth ity of tablet 13:30: daily. [facility] trazodone 2020-10 Yes Take by Unive rs HCl 11-06 mouth. ity of (TRAZODONE 13:30: [place] ORAL) [facility] citalopram 2020-10 Yes 10mg Take 10 mg U nivers 10 mg 11-06 by mouth ity of tablet 13:30: daily. [facility] trazodone 2020-10 Yes Take by Unive rs HCl 11-06 mouth. ity of (TRAZODONE 13:30: [place] ORAL) [facility] citalopram 2020-10 Yes 10mg Take 10 mg U nivers 10 mg 11-06 by mouth ity of tablet 13:30: daily. [place] [facility] cetirizine Yes [id number] 10mg Take 1 Tab Univers (ZYRTEC) 10 1-03 by mouth ity of mg tablet 00:00: daily. [facility] cetirizine Yes [id number] 10mg Take 1 Tab Univers (ZYRTEC) 10 1-03 by mouth ity of mg tablet 00:00: daily. [facility] cetirizine Yes [id number] 10mg Take 1 Tab Univers (ZYRTEC) 10 1-03 by mouth ity of mg tablet 00:00: daily. [facility] cetirizine Yes [id number] 10mg Take 1 Tab Univers (ZYRTEC) 10 1-03 by mouth ity of mg tablet 00:00: daily. [facility] cetirizine Yes [id number] 10mg Take 1 Tab Univers (ZYRTEC) 10 1-03 by mouth ity of mg tablet 00:00: daily. [facility] cetirizine Yes [id number] 10mg Take 1 Tab Univers (ZYRTEC) 10 1-03 by mouth ity of mg tablet 00:00: daily. [facility] cetirizine Yes [id number] 10mg Take 1 Tab Univers (ZYRTEC) 10 1-03 by mouth ity of mg tablet 00:00: daily. [facility] cetirizine Yes [id number] 10mg Take 1 Tab Univers (ZYRTEC) 10 1-03 by mouth ity of mg tablet 00:00: daily. [place] [facility] cetirizine Yes [id number] 10mg Take 1 Tab Univers (ZYRTEC) 10 1-03 by mouth ity of mg tablet 00:00: daily. [place] [facility] cetirizine Yes [id number] 10mg Take 1 Tab Univers (ZYRTEC) 10 1-03 by mouth ity of mg tablet 00:00: daily. [place] [facility] cetirizine Yes [id number] 10mg Take 1 Tab Univers (ZYRTEC) 10 1-03 by mouth ity of mg tablet 00:00: daily. [place] [facility] cetirizine Yes [id number] 10mg Take 1 Tab Univers (ZYRTEC) 10 1-03 by mouth ity of mg tablet 00:00: daily. [place] [facility] cetirizine Yes [id number] 10mg Take 1 Tab Univers (ZYRTEC) 10 1-03 by mouth ity of mg tablet 00:00: daily. [place] [facility] cetirizine Yes [id number] 10mg Take 1 Tab Univers (ZYRTEC) 10 1-03 by mouth ity of mg tablet 00:00: daily. [place] [facility] cetirizine Yes [id number] 10mg Take 1 Tab Univers (ZYRTEC) 10 1-03 by mouth ity of mg tablet 00:00: daily. [place] [facility] cetirizine Yes [id number] 10mg Take 1 Tab Univers (ZYRTEC) 10 1-03 by mouth ity of mg tablet 00:00: daily. [address] Immunizations Ordered Immunization Filled Immunization Date Status Commen ts Source Name Name SARS-COV-2 COVID-19 2021-09-06 Completed Unive rsity of PFIZER VACCINE 00:00:00 [facility] SARS-COV-2 COVID-19 2021-09-06 Completed Unive rsity of PFIZER VACCINE 00:00:00 [facility] SARS-COV-2 COVID-19 2021-09-06 Completed Unive rsity of PFIZER VACCINE 00:00:00 [place] [facility] SARS-COV-2 COVID-19 2021-09-06 Completed Unive rsity of PFIZER VACCINE 00:00:00 [place] [facility] SARS-COV-2 COVID-19 2021-09-06 Completed Unive rsity of PFIZER VACCINE 00:00:00 [place] [facility] SARS-COV-2 COVID-19 2021-09-06 Completed Unive rsity of PFIZER VACCINE 00:00:00 [place] [facility] SARS-COV-2 COVID-19 2021-09-06 Completed Unive rsity of PFIZER VACCINE 00:00:00 [place] [facility] SARS-COV-2 COVID-19 2021-09-06 Completed Unive rsity of PFIZER VACCINE 00:00:00 [place] [facility] SARS-COV-2 COVID-19 2021-09-06 Completed Unive rsity of PFIZER VACCINE 00:00:00 [place] [facility] SARS-COV-2 COVID-19 2021-09-06 Completed Unive rsity of PFIZER VACCINE 00:00:00 [place] [facility] SARS-COV-2 COVID-19 2021-09-06 Completed Unive rsity of PFIZER VACCINE 00:00:00 [place] [facility] SARS-COV-2 COVID-19 2021-09-06 Completed Unive rsity of PFIZER VACCINE 00:00:00 [place] [facility] SARS-COV-2 COVID-19 2021-09-06 Completed Unive rsity of PFIZER VACCINE 00:00:00 [facility] SARS-COV-2 COVID-19 2021-09-06 Completed Unive rsity of PFIZER VACCINE 00:00:00 [place] [facility] SARS-COV-2 COVID-19 2021-09-06 Completed Unive rsity of PFIZER VACCINE 00:00:00 [place] [facility] SARS-COV-2 COVID-19 2021-09-06 Completed Unive rsity of PFIZER VACCINE 00:00:00 [place] [facility] SARS-COV-2 COVID-19 2021-02-06 Completed Unive rsity of PFIZER VACCINE 00:00:00 [facility] SARS-COV-2 COVID-19 2021-02-06 Completed Unive rsity of PFIZER VACCINE 00:00:00 [place] [facility] SARS-COV-2 COVID-19 2021-02-06 Completed Unive rsity of PFIZER VACCINE 00:00:00 [place] [facility] SARS-COV-2 COVID-19 2021-02-06 Completed Unive rsity of PFIZER VACCINE 00:00:00 [place] [facility] SARS-COV-2 COVID-19 2021-02-06 Completed Unive rsity of PFIZER VACCINE 00:00:00 [place] [facility] SARS-COV-2 COVID-19 2021-02-06 Completed Unive rsity of PFIZER VACCINE 00:00:00 [place] [facility] SARS-COV-2 COVID-19 2021-02-06 Completed Unive rsity of PFIZER VACCINE 00:00:00 [place] [facility] SARS-COV-2 COVID-19 2021-02-06 Completed Unive rsity of PFIZER VACCINE 00:00:00 [place] [facility] SARS-COV-2 COVID-19 2021-02-06 Completed Unive rsity of PFIZER VACCINE 00:00:00 [place] [facility] SARS-COV-2 COVID-19 2021-02-06 Completed Unive rsity of PFIZER VACCINE 00:00:00 [place] [facility] SARS-COV-2 COVID-19 2021-02-06 Completed Unive rsity of PFIZER VACCINE 00:00:00 [place] [facility] SARS-COV-2 COVID-19 2021-02-06 Completed Unive rsity of PFIZER VACCINE 00:00:00 [place] [facility] SARS-COV-2 COVID-19 2021-02-06 Completed Unive rsity of PFIZER VACCINE 00:00:00 [place] [facility] SARS-COV-2 COVID-19 2021-02-06 Completed Unive rsity of PFIZER VACCINE 00:00:00 [place] [facility] SARS-COV-2 COVID-19 2021-02-06 Completed Unive rsity of PFIZER VACCINE 00:00:00 [place] [facility] SARS-COV-2 COVID-19 2021-02-06 Completed Unive rsity of PFIZER VACCINE 00:00:00 [place] [facility] SARS-COV-2 COVID-19 2021-01-16 Completed Unive rsity of PFIZER VACCINE 00:00:00 [facility] SARS-COV-2 COVID-19 2021-01-16 Completed Unive rsity of PFIZER VACCINE 00:00:00 [facility] SARS-COV-2 COVID-19 2021-01-16 Completed Unive rsity of PFIZER VACCINE 00:00:00 [facility] SARS-COV-2 COVID-19 2021-01-16 Completed Unive rsity of PFIZER VACCINE 00:00:00 [facility] SARS-COV-2 COVID-19 2021-01-16 Completed Unive rsity of PFIZER VACCINE 00:00:00 [facility] SARS-COV-2 COVID-19 2021-01-16 Completed Unive rsity of PFIZER VACCINE 00:00:00 [facility] SARS-COV-2 COVID-19 2021-01-16 Completed Unive rsity of PFIZER VACCINE 00:00:00 [facility] SARS-COV-2 COVID-19 2021-01-16 Completed Unive rsity of PFIZER VACCINE 00:00:00 [facility] SARS-COV-2 COVID-19 2021-01-16 Completed Unive rsity of PFIZER VACCINE 00:00:00 [facility] SARS-COV-2 COVID-19 2021-01-16 Completed Unive rsity of PFIZER VACCINE 00:00:00 [facility] SARS-COV-2 COVID-19 2021-01-16 Completed Unive rsity of PFIZER VACCINE 00:00:00 [facility] SARS-COV-2 COVID-19 2021-01-16 Completed Unive rsity of PFIZER VACCINE 00:00:00 [facility] SARS-COV-2 COVID-19 2021-01-16 Completed Unive rsity of PFIZER VACCINE 00:00:00 [facility] SARS-COV-2 COVID-19 2021-01-16 Completed Unive rsity of PFIZER VACCINE 00:00:00 [facility] SARS-COV-2 COVID-19 2021-01-16 Completed Unive rsity of PFIZER VACCINE 00:00:00 [facility] SARS-COV-2 COVID-19 2021-01-16 Completed Unive rsity of PFIZER VACCINE 00:00:00 [facility] HEPATITIS A 2014-01-23 Completed University of 00:00:00 [facility] Heamophilus Influenza 2014-01-23 Completed Uni versity of B 00:00:00 [facility] HEPATITIS A 2014-01-23 Completed University of 00:00:00 [facility] Heamophilus Influenza 2014-01-23 Completed Uni versity of B 00:00:00 [facility] HEPATITIS A 2014-01-23 Completed University of 00:00:00 [facility] Heamophilus Influenza 2014-01-23 Completed Uni versity of B 00:00:00 [facility] HEPATITIS A 2014-01-23 Completed University of 00:00:00 [facility] Heamophilus Influenza 2014-01-23 Completed Uni versity of B 00:00:00 [facility] HEPATITIS A 2014-01-23 Completed University of 00:00:00 [facility] Heamophilus Influenza 2014-01-23 Completed Uni versity of B 00:00:00 [facility] HEPATITIS A 2014-01-23 Completed University of 00:00:00 [facility] Heamophilus Influenza 2014-01-23 Completed Uni versity of B 00:00:00 [facility] HEPATITIS A 2014-01-23 Completed University of 00:00:00 [facility] Heamophilus Influenza 2014-01-23 Completed Uni versity of B 00:00:00 [facility] HEPATITIS A 2014-01-23 Completed University of 00:00:00 [facility] Heamophilus Influenza 2014-01-23 Completed Uni versity of B 00:00:00 [facility] HEPATITIS A 2014-01-23 Completed University of 00:00:00 [facility] Heamophilus Influenza 2014-01-23 Completed Uni versity of B 00:00:00 [facility] HEPATITIS A 2014-01-23 Completed University of 00:00:00 [facility] Heamophilus Influenza 2014-01-23 Completed Uni versity of B 00:00:00 [facility] DTAP 2013-04-12 Completed University of 00:00:00 [facility] Polio (IPV/OPV) 2013-04-12 Completed Universit y of 00:00:00 [facility] Pneumococcal 7 2013-04-12 Completed University of Conjugate, PCV7 00:00:00 [place] [facility] (Prevnar7) Branch DTAP 2013-04-12 Completed University of 00:00:00 [facility] Polio (IPV/OPV) 2013-04-12 Completed Universit y of 00:00:00 [facility] Pneumococcal 7 2013-04-12 Completed University of Conjugate, PCV7 00:00:00 [place] [facility] (Prevnar7) Branch DTAP 2013-04-12 Completed University of 00:00:00 [facility] Polio (IPV/OPV) 2013-04-12 Completed Universit y of 00:00:00 [facility] Pneumococcal 7 2013-04-12 Completed University of Conjugate, PCV7 00:00:00 [place] [facility] (Prevnar7) Branch [facility] 2013-04-12 Completed University of 00:00:00 [facility] Polio (IPV/OPV) 2013-04-12 Completed Universit y of 00:00:00 [facility] Pneumococcal 7 2013-04-12 Completed University of Conjugate, PCV7 00:00:00 [place] [facility] (Prevnar7) Branch [facility] 2013-04-12 Completed University of 00:00:00 [facility] Polio (IPV/OPV) 2013-04-12 Completed Universit y of 00:00:00 [facility] Pneumococcal 7 2013-04-12 Completed University of Conjugate, PCV7 00:00:00 [place] [facility] (Prevnar7) Branch [facility] 2013-04-12 Completed University of 00:00:00 [facility] Polio (IPV/OPV) 2013-04-12 Completed Universit y of 00:00:00 [facility] Pneumococcal 7 2013-04-12 Completed University of Conjugate, PCV7 00:00:00 [place] [facility] (Prevnar7) Branch [facility] 2013-04-12 Completed University of 00:00:00 [facility] Polio (IPV/OPV) 2013-04-12 Completed Universit y of 00:00:00 [facility] Pneumococcal 7 2013-04-12 Completed University of Conjugate, PCV7 00:00:00 [place] [facility] (Prevnar7) Branch [facility] 2013-04-12 Completed University of 00:00:00 [facility] Polio (IPV/OPV) 2013-04-12 Completed Universit y of 00:00:00 [facility] Pneumococcal 7 2013-04-12 Completed University of Conjugate, PCV7 00:00:00 [place] [facility] (Pre[facility]7) [facility] 2013-04-12 Completed University of 00:00:00 [facility] Polio (IPV/OPV) 2013-04-12 Completed Universit y of 00:00:00 [facility] Pneumococcal 7 2013-04-12 Completed University of Conjugate, PCV7 00:00:00 [place] [facility] (Pre[facility]ar7) [facility] 2013-04-12 Completed University of 00:00:00 [facility] Polio (IPV/OPV) 2013-04-12 Completed Universit y of 00:00:00 [facility] Pneumococcal 7 2013-04-12 Completed University of Conjugate, PCV7 00:00:00 [place] [facility] (Pre[facility]ar7) [facility] 2013-04-12 Completed University of 00:00:00 [facility] Polio (IPV/OPV) 2013-04-12 Completed Universit y of 00:00:00 [facility] Pneumococcal 7 2013-04-12 Completed University of Conjugate, PCV7 00:00:00 [place] [facility] (Prevnar7) [facility] 2013-04-12 Completed University of 00:00:00 [facility] Polio (IPV/OPV) 2013-04-12 Completed Universit y of 00:00:00 [facility] Pneumococcal 7 2013-04-12 Completed University of Conjugate, PCV7 00:00:00 [facility] ical (Prevnar7) Branch [facility] 2013-04-12 Completed University of 00:00:00 [facility] Polio (IPV/OPV) 2013-04-12 Completed Universit y of 00:00:00 [facility] Pneumococcal 7 2013-04-12 Completed University of Conjugate, PCV7 00:00:00 [facility] ical (Prevnar7) Branch [facility] 2013-04-12 Completed University of 00:00:00 [facility] Polio (IPV/OPV) 2013-04-12 Completed Universit y of 00:00:00 [facility] Pneumococcal 7 2013-04-12 Completed University of Conjugate, PCV7 00:00:00 [facility] ical (Prevnar7) Branch [facility] 2013-04-12 Completed University of 00:00:00 [facility] Polio (IPV/OPV) 2013-04-12 Completed Universit y of 00:00:00 [facility] Pneumococcal 7 2013-04-12 Completed University of Conjugate, PCV7 00:00:00 [place] [facility] (Pre[facility]7) [facility] 2013-04-12 Completed University of 00:00:00 [facility] Polio (IPV/OPV) 2013-04-12 Completed Universit y of 00:00:00 [facility] Pneumococcal 7 2013-04-12 Completed University of Conjugate, PCV7 00:00:00 [facility] (Prevnar7) Branch HEPATITIS A 2013-03-15 Completed University of 00:00:00 [facility] Hep B, Adol or Pedi 2013-03-15 Completed Unive rsity of Dosage 00:00:00 [facility] Meningococcal 2013-03-15 Completed University of Polysaccharide 00:00:00 [place] [facility] (groups A, C, Y and Branc h W-135) conjugate vaccine (MCV4P) HEPATITIS A 2013-03-15 Completed University of 00:00:00 [facility] Hep B, Adol or Pedi 2013-03-15 Completed Unive rsity of Dosage 00:00:00 [facility] Meningococcal 2013-03-15 Completed University of Polysaccharide 00:00:00 [place] [facility] (groups A, C, Y and Branc h W-135) conjugate vaccine (MCV4P) HEPATITIS A 2013-03-15 Completed University of 00:00:00 [facility] Hep B, Adol or Pedi 2013-03-15 Completed Unive rsity of Dosage 00:00:00 [facility] Meningococcal 2013-03-15 Completed University of Polysaccharide 00:00:00 [place] [facility] (groups A, C, Y and Branc h W-135) conjugate vaccine (MCV4P) HEPATITIS A 2013-03-15 Completed University of 00:00:00 [facility] Hep B, Adol or Pedi 2013-03-15 Completed Unive rsity of Dosage 00:00:00 [facility] Meningococcal 2013-03-15 Completed University of Polysaccharide 00:00:00 [place] [facility] (groups A, C, Y and Branc h W-135) conjugate vaccine (MCV4P) HEPATITIS A 2013-03-15 Completed University of 00:00:00 [facility] Hep B, Adol or Pedi 2013-03-15 Completed Unive rsity of Dosage 00:00:00 [facility] Meningococcal 2013-03-15 Completed University of Polysaccharide 00:00:00 [place] [facility] (groups A, C, Y and Branc h W-135) conjugate vaccine (MCV4P) HEPATITIS A 2013-03-15 Completed University of 00:00:00 [facility] Hep B, Adol or Pedi 2013-03-15 Completed Unive rsity of Dosage 00:00:00 [facility] Meningococcal 2013-03-15 Completed University of Polysaccharide 00:00:00 [place] [facility] (groups A, C, Y and Branc h W-135) conjugate vaccine (MCV4P) HEPATITIS A 2013-03-15 Completed University of 00:00:00 [facility] Hep B, Adol or Pedi 2013-03-15 Completed Unive rsity of Dosage 00:00:00 [facility] Meningococcal 2013-03-15 Completed University of Polysaccharide 00:00:00 [place] [facility] (groups A, C, Y and Branc h W-135) conjugate vaccine (MCV4P) HEPATITIS A 2013-03-15 Completed University of 00:00:00 [facility] Hep B, Adol or Pedi 2013-03-15 Completed Unive rsity of Dosage 00:00:00 [facility] Meningococcal 2013-03-15 Completed University of Polysaccharide 00:00:00 [place] [facility] (groups A, C, Y and Branc h W-135) conjugate vaccine (MCV4P) HEPATITIS A 2013-03-15 Completed University of 00:00:00 [facility] Hep B, Adol or Pedi 2013-03-15 Completed Unive rsity of Dosage 00:00:00 [facility] Meningococcal 2013-03-15 Completed University of Polysaccharide 00:00:00 [place] [facility] (groups A, C, Y and Branc h W-135) conjugate vaccine (MCV4P) HEPATITIS A 2013-03-15 Completed University of 00:00:00 [facility] Hep B, Adol or Pedi 2013-03-15 Completed Unive rsity of Dosage 00:00:00 [facility] Meningococcal 2013-03-15 Completed University of Polysaccharide 00:00:00 [place] [facility] (groups A, C, Y and Branc h W-135) conjugate vaccine (MCV4P) HEPATITIS A 2013-03-15 Completed University of 00:00:00 [facility] Hep B, Adol or Pedi 2013-03-15 Completed Unive rsity of Dosage 00:00:00 [facility] Meningococcal 2013-03-15 Completed University of Polysaccharide 00:00:00 [place] [facility] (groups A, C, Y and Branc h W-135) conjugate vaccine (MCV4P) HEPATITIS A 2013-03-15 Completed University of 00:00:00 [facility] Hep B, Adol or Pedi 2013-03-15 Completed Unive rsity of Dosage 00:00:00 [facility] Meningococcal 2013-03-15 Completed University of Polysaccharide 00:00:00 [place] [facility] (groups A, C, Y and Branc h W-135) conjugate vaccine (MCV4P) HEPATITIS A 2013-03-15 Completed University of 00:00:00 [facility] Hep B, Adol or Pedi 2013-03-15 Completed Unive rsity of Dosage 00:00:00 [facility] Meningococcal 2013-03-15 Completed University of Polysaccharide 00:00:00 [place] [facility] (groups A, C, Y and Branc h W-135) conjugate vaccine (MCV4P) HEPATITIS A 2013-03-15 Completed University of 00:00:00 [facility] Hep B, Adol or Pedi 2013-03-15 Completed Unive rsity of Dosage 00:00:00 [facility] Meningococcal 2013-03-15 Completed University of Polysaccharide 00:00:00 [facility] florencio (groups A, C, Y and Branc h W-135) conjugate vaccine (MCV4P) HEPATITIS A 2013-03-15 Completed University of 00:00:00 [facility] Hep B, Adol or Pedi 2013-03-15 Completed Unive rsity of Dosage 00:00:00 [facility] Meningococcal 2013-03-15 Completed University of Polysaccharide 00:00:[address] [facility] florencio (groups A, C, Y and Branc h W-135) conjugate vaccine (MCV4P) HEPATITIS A 2013-03-15 Completed University of 00:00:00 [facility] Hep B, Adol or Pedi 2013-03-15 Completed Unive rsity of Dosage 00:00:00 [facility] Meningococcal 2013-03-15 Completed University of Polysaccharide 00:00:00 [facility] florencio (groups A, C, Y and Branc h W-135) conjugate vaccine (MCV4P) Pneumococcal 13 2013-01-24 Completed Universit y of Conjugate, PCV13 00:00:00 [facility] dical (Prevnar 13) Branch HIB 4 Dose Schedule 2013-01-24 Completed Unive rsity of 00:00:00 [facility] Hep B, Dtap, Polio 2013-01-24 Completed Univer sity of 00:00:00 [facility] Pneumococcal 13 2013-01-24 Completed Universit y of Conjugate, PCV13 00:00:00 [place] [facility] (Prevnar 13) [facility] HIB 4 Dose Schedule 2013-01-24 Completed Unive rsity of 00:00:00 [facility] Hep B, Dtap, Polio 2013-01-24 Completed Univer sity of 00:00:00 [facility] Pneumococcal 13 2013-01-24 Completed Universit y of Conjugate, PCV13 00:00:00 [place] [facility] (Prevnar 13) [facility] HIB 4 Dose Schedule 2013-01-24 Completed Unive rsity of 00:00:00 [facility] Hep B, Dtap, Polio 2013-01-24 Completed Univer sity of 00:00:00 [facility] Pneumococcal 13 2013-01-24 Completed Universit y of Conjugate, PCV13 00:00:00 [place] [facility] (Prevnar 13) Branch HIB 4 Dose Schedule 2013-01-24 Completed Unive rsity of 00:00:00 [facility] Hep B, Dtap, Polio 2013-01-24 Completed Univer sity of 00:00:00 [facility] Pneumococcal 13 2013-01-24 Completed Universit y of Conjugate, PCV13 00:00:00 [facility] dical (Prevnar 13) Branch HIB 4 Dose Schedule 2013-01-24 Completed Unive rsity of 00:00:00 [facility] Hep B, Dtap, Polio 2013-01-24 Completed Univer sity of 00:00:00 [facility] Pneumococcal 13 2013-01-24 Completed Universit y of Conjugate, PCV13 00:00:00 [facility] dical (Prevnar 13) Branch HIB 4 Dose Schedule 2013-01-24 Completed Unive rsity of 00:00:00 [facility] Hep B, Dtap, Polio 2013-01-24 Completed Univer sity of 00:00:00 [facility] Pneumococcal 13 2013-01-24 Completed Universit y of Conjugate, PCV13 00:00:00 [place] [facility] (Prevnar 13) Branch HIB 4 Dose Schedule 2013-01-24 Completed Unive rsity of 00:00:00 [facility] Hep B, Dtap, Polio 2013-01-24 Completed Univer sity of 00:00:00 [facility] Pneumococcal 13 2013-01-24 Completed Universit y of Conjugate, PCV13 00:00:00 [facility] dical (Prevnar 13) Branch HIB 4 Dose Schedule 2013-01-24 Completed Unive rsity of 00:00:00 [facility] Hep B, Dtap, Polio 2013-01-24 Completed Univer sity of 00:00:00 [facility] Pneumococcal 13 2013-01-24 Completed Universit y of Conjugate, PCV13 00:00:00 [place] [facility] (Prevnar 13) Branch HIB 4 Dose Schedule 2013-01-24 Completed Unive rsity of 00:00:00 [facility] Hep B, Dtap, Polio 2013-01-24 Completed Univer sity of 00:00:00 [facility] Pneumococcal 13 2013-01-24 Completed Universit y of Conjugate, PCV13 00:00:00 [place] [facility] (Prevnar 13) Branch HIB 4 Dose Schedule 2013-01-24 Completed Unive rsity of 00:00:00 [facility] Hep B, Dtap, Polio 2013-01-24 Completed Univer sity of 00:00:00 [facility] Pneumococcal 13 2013-01-24 Completed Universit y of Conjugate, PCV13 00:00:00 [facility] (Prevnar 13) Branch HIB 4 Dose Schedule 2013-01-24 Completed Unive rsity of 00:00:00 [facility] Hep B, Dtap, Polio 2013-01-24 Completed Univer sity of 00:00:00 [facility] Pneumococcal 13 2013-01-24 Completed Universit y of Conjugate, PCV13 00:00:00 [place] [facility] (Prevnar 13) Branch HIB 4 Dose Schedule 2013-01-24 Completed Unive rsity of 00:00:00 [facility] Hep B, Dtap, Polio 2013-01-24 Completed Univer sity of 00:00:00 [facility] Pneumococcal 13 2013-01-24 Completed Universit y of Conjugate, PCV13 00:00:00 [place] [facility] (Prevnar 13) Branch HIB 4 Dose Schedule 2013-01-24 Completed Unive rsity of 00:00:00 [facility] Hep B, Dtap, Polio 2013-01-24 Completed Univer sity of 00:00:00 [facility] Pneumococcal 13 2013-01-24 Completed Universit y of Conjugate, PCV13 00:00:00 [place] [facility] (Prevnar 13) Branch HIB 4 Dose Schedule 2013-01-24 Completed Unive rsity of 00:00:00 [facility] Hep B, Dtap, Polio 2013-01-24 Completed Univer sity of 00:00:00 [facility] Pneumococcal 13 2013-01-24 Completed Universit y of Conjugate, PCV13 00:00:00 [place] [facility] (Prevnar 13) Branch HIB 4 Dose Schedule 2013-01-24 Completed Unive rsity of 00:00:00 [facility] Hep B, Dtap, Polio 2013-01-24 Completed Univer sity of 00:00:00 [facility] Pneumococcal 13 2013-01-24 Completed Universit y of Conjugate, PCV13 00:00:00 [place] [facility] (Prevnar 13) Branch HIB 4 Dose Schedule 2013-01-24 Completed Unive rsity of 00:00:00 [facility] Hep B, Dtap, Polio 2013-01-24 Completed Univer sity of 00:00:00 [facility] Vital Signs Vital Name Observation Time Observation Value Comments Source Systolic blood 2022-10-07 20:47:00 124 mm[Hg] Univer sity of pressure [facility] Diastolic blood 2022-10-07 20:47:00 86 mm[Hg] Unive rsity of [facility] Heart rate 2022-10-07 20:47:00 101 /min [facility] Body height 2022-10-07 20:47:00 165.1 cm [facility] Body weight 2022-10-07 20:47:00 69.264 kg [facility] BMI 2022-10-07 20:47:00 25.41 kg/m2 [facility] Oxygen saturation in 2022-10-07 20:47:00 94 /min [facility] Arterial blood by [facility] Pulse oximetry Branch Systolic blood 2022-08-05 19:18:00 128 mm[Hg] Univer sity of pressure [facility] Diastolic blood 2022-08-05 19:18:00 81 mm[Hg] Unive rsity of [facility] Heart rate 2022-08-05 19:18:00 110 /[facility] Respiratory rate 2022-08-05 19:18:00 23 /min Univ ersity of [facility] Body height 2022-08-05 19:18:00 165.1 cm [facility] Body weight 2022-08-05 19:18:00 70.308 kg [facility] BMI 2022-08-05 19:18:00 25.79 kg/m2 [facility] Oxygen saturation in 2022-08-05 19:18:00 97 /min University of Arterial blood by [facility] Pulse oximetry Branch Systolic blood 2022-08-04 18:34:00 125 mm[Hg] Univer sity of pressure [facility] Diastolic blood 2022-08-04 18:34:00 84 mm[Hg] Unive rsity of pressure [facility] Heart rate 2022-08-04 18:34:00 96 /min [facility] Body height 2022-08-04 18:34:00 165.1 cm [facility] Body weight 2022-08-04 18:34:00 70.625 kg [facility] BMI 2022-08-04 18:34:00 25.91 kg/m2 [facility] Oxygen saturation in 2022-08-04 18:34:00 97 /min University of Arterial blood by [facility] Pulse oximetry Branch Systolic blood 2022-07-05 16:31:00 128 mm[Hg] Univer sity of pressure [facility] Diastolic blood 2022-07-05 16:31:00 86 mm[Hg] Unive rsity of pressure [facility] Heart rate 2022-07-05 16:31:00 93 /min [facility] Body height 2022-07-05 16:31:00 165.1 cm [facility] Body weight 2022-07-05 16:31:00 67.722 kg [facility] BMI 2022-07-05 16:31:00 24.84 kg/m2 [facility] Oxygen saturation in 2022-07-05 16:31:00 99 /min University of Arterial blood by [facility] Pulse oximetry Branch Procedures Procedure Date / Time Performing Clinician Source Performed ASSIGNMENT OF BENEFITS 2022-10-07 20:44:49 Doctor Unassigned, [facility] INSURANCE CORRESPONDENCE 2022-08-16 06:01:00 Doctor Unassigned, [facility] PO[facility] HEMOGLOBIN A1C TEST 2022-08-04 20:25:00 Micheline Gan [facility] Encounters Start End Encounter Admission Attending Care Care Encounter Source Date/Time Date/Time Type Type Clinicians Facility Department ID 2023-03-17 2023-03-17 [facility] [id number] Univers 15:30:00 15:30:00 RICHARD jerrynakul [facility] 2022-10-18 2022-10-18 [facility] 1.2.840.114 [id number] Univers 00:00:00 00:00:00 Micheline HEALTH 350.1.13.10 it y of [place] 4.2.7.2.686 Scooter as PITO?BLEA [id number] [address] MEDICAL OFFICE [facility] 2022-10-07 2022-10-07 [facility]patient [facility] [id number] Univers 15:00:00 15:46:19 RICHARD gant [facility] 2022-10-07 2022-10-07 [facility] [id number] Univers 15:00:00 15:46:19 Visit Richard Beltre HEALTH 350.1.13.10 it y of [place] 4.2.7.2.686 Scooter as PITO?BLEA [id number] [facility] [address] MEDICAL OFFICE [facility] 2022-10-07 2022-10-07 Orders Doctor JEFFERY 1.2.840.114 [id number] Univers 00:00:00 00:00:00 Only Unassigned, GABO 350.1.13.10 [facility]y of [facility] 4.2.7.2.686 Scooter as [id number] [address] 2022-09-15 2022-09-15 Telephone Elvia [facility] [id number] Univers 00:00:00 00:00:00 Micheline HEALTH 350.1.13.10 it y of [place] 4.2.7.2.686 Scooter as PITO?BLEA [id number] [facility] [address] MEDICAL OFFICE BUILDING 2022-08-25 2022-08-25 Outpatient [facility] [id number] Univers 15:48:17 23:59:00 ROSEANNE gant o f [facility] 2022-08-16 2022-08-16 Orders Doctor JEFFERY 1.2.840.114 [id number] Univers 00:00:00 00:00:00 Only Unassigned, GABO 350.1.13.10 ity of [place] 4.2.7.2.686 Scooter as [id number] [address] 2022-08-05 2022-08-05 Outpatient [facility] [id number] Univers 14:00:00 14:39:02 ROSEANNE rucker f [facility] 2022-08-05 2022-08-05 Office [facility] 1.2.840.114 [id number] Univers 14:00:00 14:39:02 Visit Roseanne HERRING 350.1.13.10 ity of [facility] 4.2.7.2.686 [place] [id number] [place] dical NAL 059 [facility] 2022-08-04 2022-08-04 Outpatient [facility] [id number] Univers 13:30:00 14:59:51 MICHELINE itnakul of [facility] 2022-08-04 2022-08-04 [facility] 1.2.840.114 [id number] Univers 13:30:00 14:59:51 Visit Micheline [facility] 350.1.13.10 [facility] 4.2.7.2.686 Scooter as PITO?BLEA [id number] [place] dical [address] OFFICE [facility] 2022-07-19 2022-07-19 Moi [facility] 1.2.840.114 [id number] Univers 00:00:00 00:00:00 Luis Miguel HEALTH 350.1.13.10 it y of [place] 4.2.7.2.686 Scooter as PITO?BLEA [id number] N[place] dical [address] OFFICE [facility] 2022-07-05 2022-07-05 Outpatient [facility] [id number] Univers 11:30:00 11:46:02 MICHELINE ity of [facility] 2022-07-05 2022-07-05 [facility] 1.2.840.114 [id number] Univers 11:30:00 11:46:02 Visit Micheline HEALTH 350.1.13.10 it y of [place] 4.2.7.2.686 Scooter as PITO?BLEA [id number] [address] MEDICAL OFFICE [facility] 2022-07-05 2022-07-05 Telephone [facility] [id number] Univers 00:00:00 00:00:00 Micheline HEALTH 350.1.13.10 it y of [place] 4.2.7.2.686 Scooter as PITO?BLEA [id number] [address] OFFICE [facility] 2022-06-28 2022-06-28 Telephone [facility] [id number] Univers 00:00:00 00:00:00 Micheline HEALTH 350.1.13.10 it y of [place] 4.2.7.2.686 Scooter as PITO?BLEA [id number] [address] OFFICE [facility] 2022-06-22 2022-06-22 Telephone [facility] [id number] Univers 00:00:00 00:00:00 Micheline HEALTH 350.1.13.10 it y of [place] 4.2.7.2.686 Scooter as PITO?BLEA [id number] [address] MEDICAL OFFICE [facility] 2022-06-21 2022-06-21 Case Yazmin [facility] 1.2.840.114 [id number] Univers 00:00:00 00:00:00 Management Rania HEALTH 350.1.13.10 ity of [place] 4.2.7.2.686 Scooter as PITO?BLEA [id number] [facility] [address] MEDICAL OFFICE [facility] 2022-06-21 2022-06-21 Case Yazmin [facility] 1.2.840.114 [id number] Univers 00:00:00 00:00:00 Management Brett HEALTH 350.1.13.10 ity of [place] 4.2.7.2.686 Scooter as PITO?BLEA [id number] [address] OFFICE [facility] 2022-06-21 2022-06-21 Eric Arce [facility] 1.2.840.114 [id number] Univers 00:00:00 00:00:00 Management Brett HEALTH 350.1.13.10 ity of [place] 4.2.7.2.686 Scooter as PITO?BLEA [id number] [address] OFFICE [facility] 2022-06-20 2022-06-20 Bulk [facility], Ang - Db DEMB 1.2.840.1 [id number] [facility] 12:00:00 12:14:16 Visit SendyMicheline armenta HEALTH 350.1.13.10 ity of [place] 4.2.7.2.686 Scooter as PITO?BLEA [id number] [address] OFFICE [facility] 2022-06-20 2022-06-20 Bulk Pigment Reducer [facility], Ang - Db [facility] 1.2.840.1 14 [id number] [facility] 12:00:00 12:14:16 Visit SendyMicheline armenta HEALTH 350.1.13.10 ity of [place] 4.2.7.2.686 Scooter as PITO?BLEA [id number] [address] OFFICE [facility] 2022-06-20 2022-06-20 Bulk [facility], Ang - Db DEMB 1.2.840.1 14 [id number] [facility] 12:00:00 12:14:16 Visit SendyMicheline armenta HEALTH 350.1.13.10 ity of [place] 4.2.7.2.686 Scooter as PITO?BLEA [id number] [address] OFFICE [facility] 2022-06-20 2022-06-20 Outpatient R ELVIA DEESTEFANIA [facility] [id number] Univers 11:30:00 11:47:22 MICHELINE ity of [facility] 2022-06-20 2022-06-20 Office Elvia DEESTEFANIA 1.2.840.114 [id number] Univers 11:30:00 11:47:22 Visit Micheline HEALTH 350.1.13.10 it y of [place] 4.2.7.2.686 Scooter as PITO?BLEA [id number] [address] OFFICE [facility] 2022-06-20 2022-06-20 [facility]patient [facility] [id number] Univers 11:30:00 11:47:22 MICHELINE ity [facility] 2022-06-20 2022-06-20 Office [facility] 1.2.840.114 [id number] Univers 11:30:00 11:47:22 Visit Micheline HEALTH 350.1.13.10 it y of [place] 4.2.7.2.686 Scooter as PITO?BLEA [id number] [address] OFFICE [facility] 2022-06-20 2022-06-20 Outpatient [facility] [id number] Univers 11:30:00 11:47:22 MICHELINE ity [facility] 2022-06-20 2022-06-20 Letter [facility] 1.2.840.114 [id number] Univers 00:00:00 00:00:00 (Out) Micheline HEALTH 350.1.13.10 it y of [place] 4.2.7.2.686 Scooter as PITO?BLEA [id number] [address] OFFICE [facility] 2022-06-20 2022-06-20 Telephone [facility] [id number] Univers 00:00:00 00:00:00 Micheline HEALTH 350.1.13.10 it y of [place] 4.2.7.2.686 Scooter as PITO?BLEA [id number] [address] OFFICE [facility] 2022-06-20 2022-06-20 Telephone [facility] [id number] [employer] 00:00:00 00:00:00 [facility] [id number] it y of [place] 4.2.7.2.686 Scooter as PITO?BLEA [phone] [facility] [address] MEDICAL OFFICE [facility] 2022-05-28 2022-05-28 [facility] [id number] [employer] 12:00:00 12:00:00 [facility] 350.1.13.10 it y of [place] 4.2.7.2.686 Scooter as PITO?BLEA [id number] [address] OFFICE [facility] 2022-05-28 2022-05-28 [facility] 1.2.840.114 [id number] Univers 12:00:00 12:00:00 Care Nate HEALTH 350.1.13.10 it y of [place] 4.2.7.2.686 Scooter as PITO?BLEA [phone] [address] 2022-05-28 2022-05-28 Outpatient R DAX [facility] [id number] Univers 12:00:00 11:55:15 [facility]-20 2022-05-20 Outpatient R [facility] [id number] Univers 20:40:00 20:40:00 [facility] 2022-05-12 2022-05-12 [facility] 1.2.840.114 [id number] Univers 00:00:00 00:00:00 Micheline HEALTH 350.1.13.10 it y of [place] 4.2.7.2.686 Scooter as PITO?BLEA [id number] [address] OFFICE [facility] 2022-04-29 2022-04-29 [facility] 1.2.840.114 [id number] Univers 12:00:00 12:20:00 Care Ranmn HEALTH 350.1.13.10 it y of [place] 4.2.7.2.686 Scooter as PITO?BLEA [id number] [address] OFFICE [facility] 2022-04-29 2022-04-29 Outpatient R YAZMIN [facility] [id number] Univers 12:00:00 12:00:00 BRETT ity of [facility] 2022-04-04 2022-04-04 Refjose [facility] 1.2.840.114 [id number] Univers 00:00:00 00:00:00 Micheline HEALTH 350.1.13.10 it y of [place] 4.2.7.2.686 Scooter as PITO?BLEA [phone] [facility] [address] MEDICAL OFFICE BUILDING 2022-03-28 2022-03-28 Urgent Magda Lee [facility] 1.2.840. 114 [id number] Univers 16:20:00 16:40:00 Care Victor Hugo Verduzcoanda HEALTH 350.1.13.10 ity of [place] 4.2.7.2.686 Socoter as PITO?BLEA [id number] [facility] [address] MEDICAL OFFICE [facility] 2022-03-28 2022-03-28 Outpatient R ROSA [facility] [id number] Univers 16:20:00 16:20:00 MAGDA gant o f [facility] 2022-03-21 2022-03-21 Orders Doctor JEFFERY 1.2.840.114 [id number] Univers 00:00:00 00:00:00 Only Unassigned, GABO 350.1.13.10 ity of [place] [facility] 4.2.7.2.686 Scooter as [id number] [address] 2022-03-03 2022-03-03 Refjose [facility] 1.2.840.114 [id number] Univers 00:00:00 00:00:00 Luis Miguel HEALTH 350.1.13.10 it y of [facility] 4.2.7.2.686 Scooter as PITO?BLEA [id number] [address] MEDICAL OFFICE [facility] 2022-02-02 2022-02-02 Khoi Gan [facility] 1.2.796.281 [id number] Univers 00:00:00 00:00:00 Micheline HEALTH 350.1.13.10 it y of [facility] 4.2.7.2.686 Scooter as PITO?BLEA [id number] [address] MEDICAL OFFICE BUILDING 2022-01-28 2022-01-28 Outpatient R ELVIA [facility] [id number] Univers 11:30:00 11:30:00 MICHELINE gant [facility] 2022-01-28 2022-01-28 Outpatient R ELVIA [facility] [id number] Univers 11:30:00 11:30:00 MICHELINE gant [facility] 2022-01-05 2022-01-05 Urgent Brett Arce [facility] 1.2.840.114 [id number] Univers 13:20:00 13:20:00 Care Blu [facility] 350.1.13.10 ity of [facility] 4.2.7.2.686 Scooter as PITO?BLEA [id number] [address] MEDICAL OFFICE [facility] 2022-01-05 2022-01-05 Outpatient R [facility] [id number] Univers 13:20:00 10:49:31 SUSAN gant [facility] 2022-01-05 2022-01-05 Letter Provider, [facility] 1..901.232 [id number] Univers 00:00:00 00:00:00 (Out) Ang Db HEALTH 350.1.13.10 it y of Urgent [facility] [place] 4.2.7.2.686 [place] PITO?BLEA [id number] [address] OFFICE [facility] 2022-01-05 2022-01-05 Telephone Yazmin [facility] 1..840.114 [id number] Univers 00:00:00 00:00:00 Rania HEALTH 350.1.13.10 it y of [place] 4.2.7.2.686 Scooter as PITO?BLEA [id number] [address] MEDICAL OFFICE [facility] 2022-01-04 2022-01-04 Orders Doctor GIL 1.2.840.114 [id number] Univers 00:00:00 00:00:00 Only Unassigned, GABO 350.1.13.10 ity of [place] [facility] 4.2.7.2.686 Scooter as [id number] [address] 2021-12-31 2021-12-31 Telephone [facility] 1.2.371.764 [id number] Univers 00:00:00 00:00:00 Micheline HEALTH 350.1.13.10 it y of [place] 4.2.7.2.686 Scooter as PITO?BLEA [id number] [address] OFFICE [facility] 2021-12-31 2021-12-31 Telephone [facility] 1.2.699.348 [id number] Univers 00:00:00 00:00:00 Micheline HEALTH 350.1.13.10 it y of [place] 4.2.7.2.686 Scooter as PITO?BLEA [id number] [address] 2021-12-30 2021-12-30 Outpatient R ELVIA [facility] [id number] Univers 11:00:00 11:00:00 MICHELINE gant [facility] 2021-12-30 2021-12-30 Outpatient R ELVIA [facility] [id number] Univers 11:00:00 11:00:00 MICHELINE gant [facility] 2021-12-28 2021-12-28 Outpatient R ELVIA [facility] [id number] Univers 11:30:00 12:26:05 MICHELINE gant [facility] 2021 2021 Telephone [facility] 1.2.637.312 [id number] Univers 00:00:00 00:00:00 Micheline HEALTH 350.1.13.10 it y of [place] 4.2.7.2.686 Scooter as PITO?BLEA [id number] [address] OFFICE [facility] 2021-11-04 2021-11-04 Outpatient R BELKIS [facility] [id number] Univers 11:30:00 11:30:00 CHRISTOPHER stalin [facility] 2021-11-02 2021-11-02 Bulk Pigment [facility]ucer [facility], Ang - Db [facility] 1.2.840.1 14 [id number] Univers 16:30:00 16:45:00 Visit Elvia Micheline HEALTH 350.1.13.10 ity of [place] 4.2.7.2.686 Scooter as PITO?BLEA [phone] Nc noel SMITH [address] MEDICAL OFFICE BUILDING 2021-11-02 2021-11-02 Outpatient R ELVIA [facility] [id number] Univers 15:00:00 16:27:02 MICHELINE ity of [facility] 2021-11-02 2021-11-02 Office [facility] 1.2.840.114 [id number] Univers 15:00:00 16:27:02 Visit Micheline HEALTH 350.1.13.10 it y of [facility] 4.2.7.2.686 Scooter as PITO?BLEA [id number] Nc noel [facility] [address] [facility] OFFICE BUILDING 2021-10-19 2021-10-19 Telephone [place] 1.2.840.114 [id number] Univers 00:00:00 00:00:00 Demetri Hyde HEALTH 350.1.13.10 i ty [place] [id number] [address] 2021-10-18 2021-10-18 Outpatient R DEMETRI LAKE [facility] 10 [id number] Univers 13:45:00 15:41:27 DEM[place]RI [place] i of [facility] 2021-10-18 2021-10-18 [facility] 1.2.840.114 [id number] Univers 13:45:00 15:41:27 Visit Demetri [place] HEALTH 350.1.13.10 [place] [id number] [address] 2021-10-18 2021-10-18 Office Joan Carlson [facility] 1.2.840.114 [id number] Univers 13:45:00 15:41:27 Visit Demetri [place] HEALTH 350.1.13.10 it[place] [id number] [address] 2021-10-18 2021-10-18 Outpatient R DEMETRI LAKE [facility] 10 [id number] Univers 13:45:00 15:41:27 [place] i of [facility] 2021-10-13 2021-10-13 Telephone [facility] 1.2.840.098 [id number] Univers 00:00:00 00:00:00 Micheline HEALTH 350.1.13.10 it y of [place] 4.2.7.2.686 Scooter as PITO?BLEA [id number] [facility] [address] OFFICE [facility] 2021-10-05 2021-10-05 Office [facility] 1.2.840.114 [id number] Univers 10:30:00 11:13:32 Visit Micheline HEALTH 350.1.13.10 it y of [place] 4.2.7.2.686 Scooter as PITO?BLEA [id number] [address] OFFICE [facility] 2021-10-05 2021-10-05 Outpatient R ELVIA [facility] [id number] Univers 10:30:00 11:13:32 MICHELINENAVEED gant [facility] 2021-10-05 2021-10-05 Outpatient R ELVIA [facility] [id number] Univers 10:30:00 10:30:00 MICHELINENAVEED gant [facility] 2021-10-05 2021-10-05 Outpatient R ELVIA [facility] [id number] Univers 10:30:00 10:30:00 MICHELINENAVEED gant [facility] 2021-10-04 2021-10-04 Telephone [facility] [id number] Univers 00:00:00 00:00:00 Micheline HEALTH 350.1.13.10 it y of [place] 4.2.7.2.686 Scooter as PITO?BLEA [id number] [address] OFFICE [facility] 2021-09-27 2021-09-27 Bulk Pigment [facility], Ang - Brendan [facility] 1.2.840.1 14 [id number] Univers 10:30:00 10:45:00 Visit Micheline Gan HEALTH 350.1.13.10 ity of [place] 4.2.7.2.686 Scooter as PITO?BLEA [phone] [facility] [address] MEDICAL OFFICE BUILDING 2021-09-27 2021-09-27 Outpatient R ELVIA [facility] [id number] Univers 10:30:00 10:30:00 MICHELINE gant [facility] 2021-09-27 2021-09-27 Telephone [facility] 1.2.712.598 [id number] Univers 00:00:00 00:00:00 Micheline HEALTH 350.1.13.10 it y of [place] 4.2.7.2.686 Scooter as PITO?BLEA [id number] [address] OFFICE [facility] 2021-09-24 2021-09-24 Outpatient R ELVIA [facility] [id number] Univers 16:30:00 17:11:50 MICHELINE gant [facility] 2021-09-24 2021-09-24 Office [facility] 1.2.840.114 [id number] Univers 16:30:00 17:11:50 Visit Micheline CALHOUN 350.1.13.10 it y of [place] 4.2.7.2.686 Scooter as PITO?BLEA [id number] [address] OFFICE [facility] 2021-09-24 2021-09-24 Outpatient R ELVIA [facility] [id number] Univers 16:30:00 17:11:50 MICHELINE gant [facility] 2021-09-06 2021-09-06 Office [facility] 1.2.840.114 [id number] Univers 13:07:39 14:01:08 Visit Micheline HEALTH 350.1.13.10 it y of [place] 4.2.7.2.686 Scooter as PITO?BLEA [id number] [address] MEDICAL OFFICE [facility] 2021-09-06 2021-09-06 Outpatient R ELVIA [facility] [id number] Univers 13:00:00 14:01:08 MICHELINE gant [facility] 2021-09-06 2021-09-06 Outpatient R ELVIA [facility] [id number] Univers 13:00:00 13:00:00 MICHELINENAVEED gant [facility] 2021-09-06 2021-09-06 Orders Doctor JEFFERY 1.2.840.114 [id number] Univers 00:00:00 00:00:00 Only Unassigned, GABO 350.1.13.10 ity of [place] [facility] 4.2.7.2.686 Scooter as [id number] [address] 2021-02-06 2021-02-06 Outpatient [facility] [id number] Univers 13:10:00 13:10:00 SHERIF [facility] 2021-01-16 2021-01-16 Outpatient [facility] [id number] Univers 13:10:00 13:10:00 [facility] Results Test Description Test Time Test Comments Results Result Comments Source POCT HEMOGLOBIN A1C TEST 2022-08-04 21:00:00 Test Item Value Reference Range Interpretation Comme nts POCT HBA1C (test code = 4548-4) 12.1 % 4-6 A Lab Interpretation (test code = 12458-1) [facility]normal [facility] [id number] 21:00:00 Test Item Value Reference Range Interpretation Comments POCT HBA1C (test code = 4548-4) 12.1 % 4-6 A Lab Interpretation (test code = Abnormal 81806-0) [facility]
[2022-11-15] MEDS ORDERED: NA CHLORIDE 0.9% 1,000 ML ONE (20:15)
[2022-11-15 20:21] LABS: Urine Blood Negative (Negative); Urine Glucose 3+ (Negative); Urine Protein 1+ (Negative); Urine Specific Gravity 1.015 (1.005-1.030); Urine pH 5.5 (5.0-7.0)
[2022-11-15 20:34] LABS: Absolute Lymphocytes (CBC) 2.7 K/uL (0.7-4.9); Hematocrit 41.6 % (39.6-49.0); Lymphocytes % 36.1 % (15.3-44.8); MCV 88.8 fL (80-100); MPV 8.8 fL (7.6-11.3); RBC Red Blood Cell Count 4.68 M/uL (4.33-5.43)
[2022-11-15 20:43] LABS: BUN Blood Urea Nitrogen 13 mg/dL (7-18); Bicarbonate 31 mmol/L (21-32); Glomerular Filtration Rate 133 ml/min (=/>90); Glucose Level 323 mg/dL (74-106); Sodium Level 136 mmol/L (136-145)
[2022-11-15 20:44] LABS: Potassium 3.5 mmol/L (3.5-5.1)
--- NOTE | 2022-11-15 22:04 | EDPHYS ---
Physician Documentation [facility] Name: Sergio Hilton Age: 21 yrs Sex: Male : 2000 Arrival Date: 11/15/2022 Time: 19:57 Bed 11 Private MD: ED Physician Ulises Sheikh HPI: 11/15 22:02 This 21 yrs old Male presents to ER via Ambulatory with complaints of High kb Blood Sugar. 22:02 The patient or guardian reports hyperglycemia. Onset: The symptoms/episode kb began/occurred this morning. Associated signs and symptoms: Pertinent positives: headache. Current symptoms: In the emergency department the patient's symptoms have improved. The patient has experienced similar episodes in the past. The patient has not recently seen a physician. Pt reports headache that started this morning. States he gets headaches like this when his blood sugar is high. Reports blood sugar over 400 at home, took his medication and came in. . Historical: - Allergies: 20:08 Latex, Natural Rubber; ll3 - Home Meds: 20:08 Glipizide Oral [Active]; metformin 500 mg Oral tab [Active]; ll3 - PMHx: 20:08 Diabetes - NIDDM; Irritable bowel syndrome; Leukemia; Bipolar disorder; ll3 - PSHx: 20:08 Appendectomy; ll3 - Immunization history:: Client reports receiving the 2nd dose of the Covid vaccine. - Social history:: Smoking status: Patient denies any tobacco usage or history of. ROS: 22:03 Constitutional: Negative for fever, chills, and weight loss. kb 22:03 Neuro: Positive for headache. 22:03 All other systems are negative. Exam: 22:03 Constitutional: This is a well developed, well nourished patient who is awake, alert, kb and in no acute distress. Head/Face: Normocephalic, atraumatic. Eyes: Pupils equal round and reactive to light, extra-ocular motions intact. Lids and lashes normal. Conjunctiva and sclera are non-icteric and not injected. Cornea within normal limits. Periorbital areas with no swelling, redness, or edema. ENT: Moist Mucous membranes Cardiovascular: Regular rate and rhythm with a normal S1 and S2. No gallops, murmurs, or rubs. No pulse deficits. Respiratory: Respirations even and unlabored. No increased work of breathing. Talking in full sentences Abdomen/GI: Soft, non-tender. No distention Skin: Warm, dry with normal turgor. Normal color. MS/ Extremity: Pulses equal, no cyanosis. Neurovascular intact. Full, normal range of motion. Neuro: Awake and alert, GCS 15, oriented to person, place, time, and situation. Moves all extremities. Normal gait. Vital Signs: 20:05 BP 135 / 102; Pulse 97; Resp 18; Temp 98.5(O); Pulse Ox 100% on R/A; Weight 72.57 kg ll3 (R); Height 5 ft. 5 in. (165.10 cm) (R); Pain 8/10; 21:16 BP 123 / 85; Pulse 84; Resp 16 S; Pulse Ox 100% on R/A; as6 22:12 BP 131 / 97; Pulse 81; Resp 19 S; Pulse Ox 100% on R/A; as6 20:05 Body Mass Index 26.63 (72.57 kg, 165.10 cm) ll3 MDM: 20:10 Patient medically screened. kb 22:03 Data reviewed: vital signs, nurses notes. kb 22:03 Differential diagnosis: DKA, hyperglycemia. Counseling: I had a detailed discussion kb with the patient and/or guardian regarding: the historical points, exam findings, and any diagnostic results supporting the discharge/admit diagnosis, lab results, the need for outpatient follow up, a family practitioner, to return to the emergency department if symptoms worsen or persist or if there are any questions or concerns that arise at home. 11/15 20:10 Order name: CBC with Diff; Complete Time: 20:54 kb 11/15 20:10 Order name: Basic Metabolic Panel; Complete Time: 20:54 kb 11/15 20:10 Order name: Acetone, Serum; Complete Time: 20:54 kb 11/15 20:17 Order name: Glucose, Ancillary Testing; Complete Time: 20:23 EDMS 11/15 20:22 Order name: Urine Dipstick-Ancillary; Complete Time: 20:23 EDMS 11/15 22:00 Order name: Glucose, Ancillary Testing; Complete Time: 22:02 EDMS 11/15 20:10 Order name: IV Start; Complete Time: 20:22 kb 11/15 20:10 Order name: Urine Dipstick-Ancillary (obtain specimen); Complete Time: 20:20 kb 11/15 21:36 Order name: Blood Glucose Level; Complete Time: 21:49 kb Administered Medications: 20:22 Drug: NS 0.9% 1000 ml Route: IV; Rate: 1000 ml; Site: right antecubital; as6 22:11 Follow up: Response: No adverse reaction; IV Status: Completed infusion; IV Intake: as6 1000ml Point of Care Testing: Blood Glucose: 21:49 Blood Glucose: 231 mg/dL; as6 Ranges: Critical Glucose Levels:Adult <50 mg/dl or >400 mg/dl <40 mg/dl or >180 mg/dl Disposition Summary: 11/15/22 22:04 Discharge Ordered Location: Home kb Condition: Stable kb Diagnosis - Hyperglycemia, unspecified kb Followup: kb - With: Emergency Department - When: As needed - Reason: Worsening of condition Followup: kb - With: Private Physician - When: 2 - 3 days - Reason: Recheck today's complaints, Continuance of care, Re-evaluation by your physician Discharge Instructions: - Discharge Summary Sheet kb - Hyperglycemia, [id number] kb Forms: - Medication Reconciliation Form kb - Thank You Letter kb - Antibiotic Education kb - Prescription Opioid Use kb - Work release form as6 Signatures: Dispatcher [employer] Jessica Bryant FNP-C FNP-Johny Chance, RN RN as6 Perez Bruno RN RN ll3
--- NOTE | 2022-11-15 22:04 | ER ---
Nurse's Notes [facility] Name: Sergio Hilton Age: 21 yrs Sex: Male : 2000 Arrival Date: 11/15/2022 Time: 19:57 Bed 11 Private MD: Diagnosis: Hyperglycemia, unspecified Presentation: 11/15 20:05 Chief complaint: Patient states: States blood sugar was 426 at home, states took a dose ll3 of metformin and glipizide at home before coming, BGL is 339 upon arrival, c/o H/A, states "My head always hurts when my sugar is high". Coronavirus screen: Vaccine status: Patient reports receiving the 2nd dose of the covid vaccine. At this time, the client does not indicate any symptoms associated with coronavirus-19. Ebola Screen: No symptoms or risks identified at this time. Initial Sepsis Screen: Does the patient meet any 2 criteria? No. Patient's initial sepsis screen is negative. Does the patient have a suspected source of infection? No. Patient's initial sepsis screen is negative. Risk Assessment: Do you want to hurt yourself or someone else? Patient reports no desire to harm self or others. Onset of symptoms was November 15, 2022. Care prior to arrival: Medication(s) given: alleve at 5 PM. 20:05 Method Of Arrival: Ambulatory ll3 20:05 Acuity: YURI 3 ll3 Triage Assessment: 20:08 General: Appears uncomfortable, Behavior is calm, cooperative. Pain: Complains of pain ll3 in face Pain does not radiate. Pain currently is 8 out of 10 on a pain scale. Neuro: Level of Consciousness is awake, alert, obeys commands, Oriented to person, place, time, situation, Reports headache. Respiratory: Respiratory effort is even, unlabored, Respiratory pattern is regular, symmetrical. Derm: Skin is pink, warm \\T\\ dry. Historical: - Allergies: 20:08 Latex, Natural Rubber; ll3 - Home Meds: 20:08 Glipizide Oral [Active]; metformin 500 mg Oral tab [Active]; ll3 - PMHx: 20:08 Diabetes - NIDDM; Irritable bowel syndrome; Leukemia; Bipolar disorder; ll3 - PSHx: 20:08 Appendectomy; ll3 - Immunization history:: Client reports receiving the 2nd dose of the Covid vaccine. - Social history:: Smoking status: Patient denies any tobacco usage or history of. Screenin:22 [facility] ED Fall Risk Assessment (Adult) Score/Fall Risk Level 0 - 2 = Low Risk. Abuse as6 screen: Denies threats or abuse. Denies injuries from another. Nutritional screening: No deficits noted. Tuberculosis screening: No symptoms or risk factors identified. Assessment: 20:23 General: Appears in no apparent distress. comfortable, Behavior is calm, cooperative. as6 Pain: Complains of pain in head. Neuro: Level of Consciousness is awake, alert, obeys commands, Oriented to person, place, time, situation, Reports headache. Cardiovascular: Capillary refill < 3 seconds Patient's skin is warm and dry. Respiratory: Respiratory effort is even, unlabored, Respiratory pattern is regular, symmetrical. Derm: Skin is intact, is healthy with good turgor. 21:15 General: c/o headache. no other complaints or concerns at this time . as6 Vital Signs: 20:05 BP 135 / 102; Pulse 97; Resp 18; Temp 98.5(O); Pulse Ox 100% on R/A; Weight 72.57 kg ll3 (R); Height 5 ft. 5 in. (165.10 cm) (R); Pain 8/10; 21:16 BP 123 / 85; Pulse 84; Resp 16 S; Pulse Ox 100% on R/A; as6 22:12 BP 131 / 97; Pulse 81; Resp 19 S; Pulse Ox 100% on R/A; as6 20:05 Body Mass Index 26.63 (72.57 kg, 165.10 cm) ll3 ED Course: 19:57 Patient arrived in ED. ja2 20:01 Jessica Pantoja [facility]NP-C [facility] kb 20:01 Ulises Sheikh MD is Attending Physician. kb 20:08 Triage completed. ll3 20:08 Arm band placed on. ll3 20:10 Johny Timmons, JOEL is Primary Nurse. as6 20:18 Inserted saline lock: 20 gauge in right antecubital area, using aseptic technique. as6 Blood collected. 20:22 Bed in low position. Call light in reach. Side rails up X 1. Pulse ox on. NIBP on. Warm as6 blanket given. 20:22 CBC with Diff Sent. as6 20:22 Basic Metabolic Panel Sent. as6 20:22 Acetone, Serum Sent. as6 22:12 No provider procedures requiring assistance completed. IV discontinued, intact, as6 bleeding controlled, No redness/swelling at site. Pressure dressing applied. Administered Medications: 20:22 Drug: NS 0.9% 1000 ml Route: IV; Rate: 1000 ml; Site: right antecubital; as6 22:11 Follow up: Response: No adverse reaction; IV Status: Completed infusion; IV Intake: as6 1000ml Medication: 20:22 VIS not applicable for this client. as6 Point of Care Testing: Blood Glucose: 21:49 Blood Glucose: 231 mg/dL; as6 Ranges: Intake: 22:11 IV: 1000ml; Total: 1000ml. as6 Outcome: 22:04 Discharge ordered by . kb 22:12 Discharged to home ambulatory. as6 22:12 Condition: stable 22:12 Discharge instructions given to patient, Instructed on discharge instructions, follow up and referral plans. Demonstrated understanding of instructions, follow-up care. 22:12 Patient left the ED. as6 Signatures: Jessica Pantoja, [employer] ADVISOR-C [employer] ADVISOR-Ckb Delmy Vargas Ashby, RN RN as6 Perez Bruno, RN RN ll3
[2022-11-15 23:12] VITALS: TEMP 98.5; O2SAT 100
[2022-11-15 23:15] VITALS: BP 131/97
== END 2022-11-15 22:12 | disposition home or self-care (01) ==
LOC: ER 19:53
DX: E11.65 Type 2 diabetes mellitus with hyperglycemia (principal); Z91.040 Latex allergy status; Z85.6 Personal history of leukemia
CPT/HCPCS: 85025; 80048; 36415; 82010; 82947 ×2; 81003; J7030

== ENCOUNTER 2023-03-21 21:02 | Emergency (ER) | payer OTHER ==
--- OUTSIDE RECORDS SUMMARY | 2023-03-21 21:10 | XMS REPORT | Continuity of Care Document ---
:2000 Author Organization [facility] t Address [address] [place] [id number] Care Team Providers Name Role Phone Micheline Nieves Primary Care Physician RICHARD CRUZ Attending Clinician Unavailable Micheline Nieves Attending Clinician Richard Cruz MD Attending Clinician Doctor Unassigned, [place] Attending Clinician Unavailable ROSEANNE LEVINE Attending Clinician Unavailable Roseanne Levine MD Attending Clinician MICHELINE GAN Attending Clinician Unavailable Luis Miguel Estrada MD Attending Clinician Brett Navas Attending Clinician Jackson Lambert Attending Clinician Unavailable Nate Verduzco MD Attending [...] Effective Date Expiration Date Lizett nathan FORMERLY [facility] [id number] 2022 PLUS 00:00:00 [facility] [id number] 2018 CHOICE MEDICAID 00:00:00 Problems Condition Condition [...] different from the original. ICD10 Diagnosis Term Blueprint Clerk Utility Leukemia Leukemia Disease Active Unive rs [facility] [place] [facility] ALL (acute ALL (acute Disease [...] PERMETHR DRUG Active ITCHING Univers IN INGREDI 04-29 ity of 00:00: [place] 00 Medical Branch LATEX DRUG Active Med Rash Univers INGREDI 02-23 ity of 00:00: [place] 00 Medical Branch Latex Propensi Active Rash Redness Univers ty to 02-23 to site ity of adverse 00:00: where [place] reaction 00 latex Medical s touches Branch Pegaspar Propensi Active Hives Pre-medic Uni vers gase ty to 25 ate ity of adverse 00:00: peg-aspar [place] reaction 00 aginase Medical s with Branch diphenhyd ramine PEGASPAR DRUG Active Low Hives Univers GASE INGREDI 2-25 ity of 00:00: [place] [address] Medical [place] Social History Social Habit Start Date Stop Date Quantity Comments Source History of Passive smoker University of tobacco use [facility] Exposure to 2022-09-27 2022-10-07 Not sure University SARS-CoV-2 00:00:00 14:43:00 [facility] (event) Branch Alcohol intake 2022-08-05 2022-08-05 Current University of 00:00:00 00:00:00 non-drinker of [facility] [place] [facility] alcohol (finding) [place] Tobacco use and 2022-06-20 2022-06-20 Smokeless tobacco Un iversity of exposure 00:00:00 00:00:00 non-user [facility] Tobacco Comment 2022-06-20 2022-06-20 Family smokes Univer sity of 00:00:00 00:00:00 outside [facility] Sex Assigned At 2000 2000 Universit y of 00:00:00 00:00:00 [facility] Smoking Status Start Date Stop Date Source Never smoked tobacco [facility] Medications Ordered Filled Start Stop Current Ordering Indication Dosage Frequency Signature Comments Components Source Medication Medication Date Date Medication? Clinician (SIG) Name Name ezetimibe Yes [id number] 10mg Take 1 U nivers 10 mg 5-22 tablet by ity of tablet 00:00: mouth in [place] 00 the Medical morning. Branch icosapent Yes [id number] 2g Take 2 U nivers ethyL 4-14 capsules ity of (VASCEPA) 1 00:00: by mouth [place] gram 00 in the Medical capsule morning Branch and 2 capsules in the evening. icosapent Yes [id number] 2g Take 2 U nivers ethyL 4-14 capsules ity of (VASCEPA) 1 00:00: by mouth [place] gram 00 in the Medical capsule morning Branch and 2 capsules in the evening. icosapent Yes [id number] 2g Take 2 U nivers ethyL 4-14 capsules ity of (VASCEPA) 1 00:00: by mouth [place] gram 00 in the Medical capsule morning Branch and 2 capsules in the evening. rosuvastati 2022-0 Yes [id number] 20mg Take 1 Univers n (CRESTOR) 4-03 tablet by ity of 20 mg 00:00: mouth at [place] tablet 00 bedtime. Medical Branch rosuvastati 2022-0 Yes [id number] 20mg Take 1 Univers n (CRESTOR) 4-03 tablet by ity of 20 mg 00:00: mouth at [place] tablet 00 bedtime. Medical Branch rosuvastati 2022-0 Yes [id number] 20mg Take 1 Univers n (CRESTOR) 4-03 tablet by ity of 20 mg 00:00: mouth at [place] tablet 00 bedtime. Medical Branch rosuvastati 2022-0 Yes [id number] 20mg Take 1 Univers n (CRESTOR) 4-03 tablet by ity of 20 mg 00:00: mouth at [place] tablet 00 bedtime. Medical Branch lisinopriL 2022-0 Yes [id number] 2.5mg Take 1 Univers 2.5 mg 1-10 tablet by ity of tablet 00:00: mouth in [place] the Medical morning. Branch lisinopriL 0 Yes [id number] 2.5mg Take 1 Univers 2.5 mg 1-10 tablet by ity of tablet 00:00: mouth in [place] the Medical morning. Branch lisinopriL 0 Yes [id number] 2.5mg Take 1 Univers 2.5 mg 1-10 tablet by ity of tablet 00:00: mouth in [place] the Medical morning. Branch lisinopriL 2022-0 Yes [id number] 2.5mg Take 1 Univers 2.5 mg 1-10 tablet by ity of tablet 00:00: mouth in [place] the Medical morning. Branch lisinopriL 0 Yes [id number] 2.5mg Take 1 Univers 2.5 mg 1-10 tablet by ity of tablet 00:00: mouth in [place] 00 the Medical morning. Branch metformin 2021-10 Yes [id number] 750mg Take 1 Univers ER 750 mg 2-30 tablet by ity o f 24 hr 00:00: mouth [place] tablet 00 daily with Medical breakfast. Branch glipiZIDE 2021-10 Yes [id number] 20mg Take 2 U nivers XL 10 mg 24 2-30 tablets by it y of hr tablet 00:00: mouth [place] 00 daily with Medical breakfast. Branch metformin 2021-10 Yes [id number] 750mg Take 1 Univers ER 750 mg 2-30 tablet by ity o f 24 hr 00:00: mouth [place] tablet 00 daily with Medical breakfast. Branch glipiZIDE 2021-10 Yes [id number] 20mg Take 2 U nivers XL 10 mg 24 2-30 tablets by it y of hr tablet 00:00: mouth [place] 00 daily with Medical breakfast. Branch metformin 2021-10 Yes [id number] 750mg Take 1 Univers ER 750 mg 2-30 tablet by ity o f 24 hr 00:00: mouth [place] tablet 00 daily with Medical breakfast. Branch glipiZIDE 2021-10 Yes [id number] 20mg Take 2 U nivers XL 10 mg 24 2-30 tablets by it y of hr tablet 00:00: mouth [place] 00 daily with Medical breakfast. Branch metformin 2021-10 Yes [id number] 750mg Take 1 Univers ER 750 mg 2-30 tablet by ity o f 24 hr 00:00: mouth [place] tablet 00 daily with Medical breakfast. Branch glipiZIDE 2021-10 Yes [id number] 20mg Take 2 U nivers XL 10 mg 24 2-30 tablets by it y of hr tablet 00:00: mouth [place] 00 daily with Medical breakfast. Branch metformin 2021-10 Yes [id number] 750mg Take 1 Univers ER 750 mg 2-30 tablet by ity o f 24 hr 00:00: mouth [place] tablet 00 daily with Medical breakfast. Branch glipiZIDE 2021-10 Yes [id number] 20mg Take 2 U nivers XL 10 mg 24 2-30 tablets by it y of hr tablet 00:00: mouth [place] 00 daily with Medical breakfast. Branch metformin 2021-10 Yes [id number] 750mg Take 1 Univers ER 750 mg 2-30 tablet by ity o f 24 hr 00:00: mouth [place] tablet 00 daily with Medical breakfast. Branch glipiZIDE 2021-10 Yes [id number] 20mg Take 2 U nivers XL 10 mg 24 2-30 tablets by it y of hr tablet 00:00: mouth [place] 00 daily with Medical breakfast. Branch metformin 2021-10 Yes [id number] 750mg Take 1 Univers ER 750 mg 2-30 tablet by ity o f 24 hr 00:00: mouth [place] tablet 00 daily with Medical breakfast. Branch glipiZIDE 2021-10 Yes [id number] 20mg Take 2 U nivers XL 10 mg 24 2-30 tablets by it y of hr tablet 00:00: mouth [place] 00 daily with Medical breakfast. Branch LISINOPRIL 2021-10 Yes [id number] TAKE 1 Univers 2.5 mg 0-13 TABLET BY ity of tablet 00:00: MOUTH [place] 00 EVERY DAY Medical Branch LISINOPRIL 2021-10 Yes [id number] TAKE 1 Univers 2.5 mg 0-13 TABLET BY ity of tablet 00:00: MOUTH [place] 00 EVERY DAY Medical Branch LISINOPRIL 2021-10 Yes [id number] TAKE 1 Univers 2.5 mg 0-13 TABLET BY ity of tablet 00:00: MOUTH [place] 00 EVERY DAY Medical Branch LISINOPRIL 2021-10 Yes [id number] TAKE 1 Univers 2.5 mg 0-13 TABLET BY ity of tablet 00:00: MOUTH [place] 00 EVERY DAY Medical Branch LISINOPRIL 2021-10 Yes [id number] TAKE 1 Univers 2.5 mg 0-13 TABLET BY ity of tablet 00:00: MOUTH [place] 00 EVERY DAY Medical Branch LISINOPRIL 2021-10 Yes [id number] TAKE 1 Univers 2.5 mg 0-13 TABLET BY ity of tablet 00:00: MOUTH [place] 00 EVERY DAY Medical Branch LISINOPRIL 2021-10 Yes [id number] TAKE 1 Univers 2.5 mg 0-13 TABLET BY ity of tablet 00:00: MOUTH [place] 00 EVERY DAY Medical Branch LISINOPRIL 2021-10 Yes [id number] TAKE 1 Univers 2.5 mg 0-13 TABLET BY ity of tablet 00:00: MOUTH [place] 00 EVERY DAY Medical Branch LISINOPRIL 2021-10- No [id number] TAKE 1 Univers 2.5 mg 0-13 01-10 TABLET BY ity of tablet 00:00: 00:00 MOUTH [place] 00 :00 EVERY DAY Medical Branch LISINOPRIL 2021-2022- No [id number] TAKE 1 Univers 2.5 mg 0-13 01-10 TABLET BY ity of tablet 00:00: 00:00 MOUTH [place] 00 :00 EVERY DAY Medical Branch LISINOPRIL 2021-2022- No [id number] TAKE 1 Univers 2.5 mg 0-13 01-10 TABLET BY ity of tablet 00:00: 00:00 MOUTH [place] 00 :00 EVERY DAY Medical Branch rosuvastati 2021-0 Yes [id number] 20mg Take 1 Univers n (CRESTOR) 9-27 tablet by ity of 20 mg 00:00: mouth at [place] tablet 00 bedtime. Medical Branch ezetimibe 2021-0 Yes [id number] 10mg Take 1 U nivers 10 mg 9-27 tablet by ity of tablet 00:00: mouth in [place] 00 the Medical morning. Branch rosuvastati 2021-0 Yes [id number] 20mg Take 1 Univers n (CRESTOR) 9-27 tablet by ity of 20 mg 00:00: mouth at [place] tablet 00 bedtime. Medical Branch ezetimibe 0 Yes [id number] 10mg Take 1 U nivers 10 mg 9-27 tablet by ity of tablet 00:00: mouth in [place] 00 the Medical morning. Branch rosuvastati 2021-0 Yes [id number] 20mg Take 1 Univers n (CRESTOR) 9-27 tablet by ity of 20 mg 00:00: mouth at [place] tablet 00 bedtime. Medical Branch ezetimibe 2021-0 Yes [id number] 10mg Take 1 U nivers 10 mg 9-27 tablet by ity of tablet 00:00: mouth in [place] 00 the Medical morning. Branch rosuvastati 0 Yes [id number] 20mg Take 1 Univers n (CRESTOR) 9-27 tablet by ity of 20 mg 00:00: mouth at [place] tablet 00 bedtime. Medical Branch ezetimibe 2021-0 Yes [id number] 10mg Take 1 U nivers 10 mg 9-27 tablet by ity of tablet 00:00: mouth in [place] 00 the Medical morning. Branch rosuvastati 2021-0 Yes [id number] 20mg Take 1 Univers n (CRESTOR) 9-27 tablet by ity of 20 mg 00:00: mouth at [place] tablet 00 bedtime. Medical Branch ezetimibe 2021-0 Yes [id number] 10mg Take 1 U nivers 10 mg 9-27 tablet by ity of tablet 00:00: mouth in [place] 00 the Medical morning. Branch rosuvastati 2021-0 Yes [id number] 20mg Take 1 Univers n (CRESTOR) 9-27 tablet by ity of 20 mg 00:00: mouth at [place] tablet 00 bedtime. Medical Branch ezetimibe 2021-0 Yes [id number] 10mg Take 1 U nivers 10 mg 9-27 tablet by ity of tablet 00:00: mouth in [place] 00 the Medical morning. Branch rosuvastati 2021-0 Yes [id number] 20mg Take 1 Univers n (CRESTOR) 9-27 tablet by ity of 20 mg 00:00: mouth at [place] tablet 00 bedtime. Medical Branch ezetimibe 0 Yes [id number] 10mg Take 1 U nivers 10 mg 9-27 tablet by ity of tablet 00:00: mouth in [place] 00 the Medical morning. Branch rosuvastati 0 Yes [id number] 20mg Take 1 Univers n (CRESTOR) 9-27 tablet by ity of 20 mg 00:00: mouth at [place] tablet 00 bedtime. Medical Branch ezetimibe 0 Yes [id number] 10mg Take 1 U nivers 10 mg 9-27 tablet by ity of tablet 00:00: mouth in [place] 00 the Medical morning. Branch rosuvastati 0 Yes [id number] 20mg Take 1 Univers n (CRESTOR) 9-27 tablet by ity of 20 mg 00:00: mouth at [place] tablet 00 bedtime. Medical Branch ezetimibe 0 Yes [id number] 10mg Take 1 U nivers 10 mg 9-27 tablet by ity of tablet 00:00: mouth in [place] 00 the Medical morning. Branch rosuvastati 0 Yes [id number] 20mg Take 1 Univers n (CRESTOR) 9-27 tablet by ity of 20 mg 00:00: mouth at [place] tablet 00 bedtime. Medical Branch ezetimibe 0 Yes [id number] 10mg Take 1 U nivers 10 mg 9-27 tablet by ity of tablet 00:00: mouth in [place] 00 the Medical morning. Branch rosuvastati 0 Yes [id number] 20mg Take 1 Univers n (CRESTOR) 9-27 tablet by ity of 20 mg 00:00: mouth at [place] tablet 00 bedtime. Medical Branch ezetimibe 2021-0 Yes [id number] 10mg Take 1 U nivers 10 mg 9-27 tablet by ity of tablet 00:00: mouth in [place] 00 the Medical morning. Branch rosuvastati 2-0 Yes [id number] 20mg Take 1 Univers n (CRESTOR) 9-27 tablet by ity of 20 mg 00:00: mouth at [place] tablet 00 bedtime. Medical Branch ezetimibe 2021-0 Yes [id number] 10mg Take 1 U nivers 10 mg 9-27 tablet by ity of tablet 00:00: mouth in [place] 00 the Medical morning. Branch rosuvastati 2021-0 Yes [id number] 20mg Take 1 Univers n (CRESTOR) 9-27 tablet by ity of 20 mg 00:00: mouth at [place] tablet 00 bedtime. Medical Branch ezetimibe 2021-0 Yes [id number] 10mg Take 1 U nivers 10 mg 9-27 tablet by ity of tablet 00:00: mouth in [place] 00 the Medical morning. Branch rosuvastati 2021-0 Yes [id number] 20mg Take 1 Univers n (CRESTOR) 9-27 tablet by ity of 20 mg 00:00: mouth at [place] tablet 00 bedtime. Medical Branch ezetimibe 2021-0 Yes [id number] 10mg Take 1 U nivers 10 mg 9-27 tablet by ity of tablet 00:00: mouth in [place] 00 the Medical morning. Branch ezetimibe 2021-0 Yes [id number] 10mg Take 1 U nivers 10 mg 9-27 tablet by ity of tablet 00:00: mouth in [place] 00 the Medical morning. Branch ezetimibe 2-0 Yes [id number] 10mg Take 1 U nivers 10 mg 9-27 tablet by ity of tablet 00:00: mouth in [place] 00 the Medical morning. Branch ezetimibe 2-0 Yes [id number] 10mg Take 1 U nivers 10 mg 9-27 tablet by ity of tablet 00:00: mouth in [place] 00 the Medical morning. Branch ezetimibe 2022-0 2023- No [id number] 10mg Take 1 Univers 10 mg 9-27 05-22 tablet by ity of tablet 00:00: 00:00 mouth in [place] 00 :00 the Medical morning. Branch rosuvastati 2022-0 3- No [id number] 20mg Take 1 Univers n (CRESTOR) 9-27 04-03 tablet by it y of 20 mg 00:00: 00:00 mouth at [place] tablet 00 :00 bedtime. Medical Branch icosapent No [id number] 2g Take 2 Univers ethyL 9-14 10-15 capsules ity of (VASCEPA) 1 00:00: 04:59 by mouth [place] gram 00 :00 in the Medical capsule morning Branch and 2 capsules in the evening. Do all this for 30 days. icosapent No [id number] 2g Take 2 Univers ethyL 9-14 10-15 capsules ity of (VASCEPA) 1 00:00: 04:59 by mouth [place] gram 00 :00 in the Medical capsule morning Branch and 2 capsules in the evening. Do all this for 30 days. icosapent No [id number] 2g Take 2 Univers ethyL 9-14 10-15 capsules ity of (VASCEPA) 1 00:00: 04:59 by mouth [place] gram 00 :00 in the Medical capsule morning Branch and 2 capsules in the evening. Do all this for 30 days. icosapent No [id number] 2g Take 2 Univers ethyL 9-14 10-15 capsules ity of (VASCEPA) 1 00:00: 04:59 by mouth [place] gram 00 :00 in the Medical capsule morning Branch and 2 capsules in the evening. Do all this for 30 days. icosapent No [id number] 2g Take 2 Univers ethyL 9-14 10-15 capsules ity of (VASCEPA) 1 00:00: 04:59 by mouth [place] gram 00 :00 in the Medical capsule morning Branch and 2 capsules in the evening. Do all this for 30 days. semaglutide Yes [id number] .5mg inject 0.5 Univers (OZEMPIC) 9-12 mg under ity of 0.25 mg or 00:00: the skin [place] as 0.5 mg(2 00 weekly. Medical mg/1.5 mL) Start 0.25 Bra [facility] PnIj mg weekly for 4 weeks, then 0.5 mg thereafter glipiZIDE Yes [id number] 10mg Take 1 U nivers XL 10 mg 24 9-12 tablet by ity of hr tablet 00:00: mouth [place] 00 daily with Medical breakfast. Branch metformin 2021-0 Yes [id number] 750mg Take 1 Univers ER 750 mg 9-12 tablet by ity o f 24 hr 00:00: mouth [place] tablet 00 daily with Medical breakfast. Branch semaglutide 2021-0 Yes [id number] .5mg inject 0.5 Univers (OZEMPIC) 9-12 mg under ity of 0.25 mg or 00:00: the skin [place] 0.5 mg(2 00 weekly. Medical mg/1.5 mL) Start 0.25 Bra nch PnIj mg weekly for 4 weeks, then 0.5 mg thereafter glipiZIDE 2021-0 Yes [id number] 10mg Take 1 U nivers XL 10 mg 24 9-12 tablet by ity of hr tablet 00:00: mouth [place] 00 daily with Medical breakfast. Branch metformin 2021-0 Yes [id number] 750mg Take 1 Univers ER 750 mg 9-12 tablet by ity o f 24 hr 00:00: mouth [place] tablet 00 daily with Medical breakfast. Branch semaglutide 2021-0 Yes [id number] .[id number] inject 0.5 Univers (OZEMPIC) 9-12 mg under ity of 0.25 mg or 00:00: the [place] 0.5 mg(2 00 weekly. Medical mg/1.5 mL) Start 0.25 Bra nch PnIj mg weekly for 4 weeks, then 0.5 mg thereafter glipiZIDE 2021-0 Yes [id number] 10mg Take 1 U nivers XL 10 mg 24 9-12 tablet by ity of hr tablet 00:00: mouth [place] 00 daily with Medical breakfast. Branch metformin 2021-0 Yes [id number] 750mg Take 1 Univers ER 750 mg 9-12 tablet by ity o f 24 hr 00:00: mouth [place] tablet 00 daily with Medical breakfast. Branch semaglutide 2021-0 Yes [id number] .5mg inject 0.5 Univers (OZEMPIC) 9-12 mg under ity of 0.25 mg or 00:00: the skin [place] 0.5 mg(2 00 weekly. Medical mg/1.5 mL) Start 0.25 Bra nch PnIj mg weekly for 4 weeks, then 0.5 mg thereafter glipiZIDE 2021-0 Yes [id number] 10mg Take 1 U nivers XL 10 mg 24 9-12 tablet by ity of hr tablet 00:00: mouth [place] 00 daily with Medical breakfast. Branch metformin 2021-0 Yes [id number] 750mg Take 1 Univers ER 750 mg 9-12 tablet by ity o f 24 hr 00:00: mouth [place] tablet 00 daily with Medical breakfast. Branch semaglutide 2021-0 Yes [id number] .5mg inject 0.5 Univers (OZEMPIC) 9-12 mg under ity of 0.25 mg or 00:00: the [place] 0.5 mg(2 00 weekly. Medical mg/1.5 mL) Start 0.25 Bra nch PnIj mg weekly for 4 weeks, then 0.5 mg thereafter glipiZIDE 2021-0 Yes [id number] 10mg Take 1 U nivers XL 10 mg 24 9-12 tablet by ity of hr tablet 00:00: mouth [place] 00 daily with Medical breakfast. Branch metformin 2021-0 Yes [id number] 750mg Take 1 Univers ER 750 mg 9-12 tablet by ity o f 24 hr 00:00: mouth [place] tablet 00 daily with Medical breakfast. Branch semaglutide 2021-0 Yes [id number] .5mg inject 0.5 Univers (OZEMPIC) 9-12 mg under ity of 0.25 mg or 00:00: the [place] 0.5 mg(2 00 weekly. Medical mg/1.5 mL) Start 0.25 Bra nch PnIj mg weekly for 4 weeks, then 0.5 mg thereafter glipiZIDE 2021-0 Yes [id number] 10mg Take 1 U nivers XL 10 mg 24 9-12 tablet by ity of hr tablet 00:00: mouth [place] 00 daily with Medical breakfast. Branch metformin 2021-0 Yes [id number] 750mg Take 1 Univers ER 750 mg 9-12 tablet by ity o f 24 hr 00:00: mouth [place] tablet 00 daily with Medical breakfast. Branch semaglutide 2021-0 Yes [id number] .5mg inject 0.5 Univers (OZEMPIC) 9-12 mg under ity of 0.25 mg or 00:00: the [place] 0.5 mg(2 00 weekly. Medical mg/1.5 mL) Start 0.25 Bra nch PnIj mg weekly for 4 weeks, then 0.5 mg thereafter glipiZIDE 2021-0 Yes [id number] 10mg Take 1 U nivers XL 10 mg 24 9-12 tablet by ity of hr tablet 00:00: mouth [place] 00 daily with Medical breakfast. Branch metformin 2021-0 Yes [id number] 750mg Take 1 Univers ER 750 mg 9-12 tablet by ity o f 24 hr 00:00: mouth [place] tablet 00 daily with Medical breakfast. Branch semaglutide 2021-0 Yes [id number] .5mg inject 0.5 Univers (OZEMPIC) 9-12 mg under ity of 0.25 mg or 00:00: the [place] 0.5 mg(2 00 weekly. Medical mg/1.5 mL) Start 0.25 Bra nch PnIj mg weekly for 4 weeks, then 0.5 mg thereafter glipiZIDE 2021-0 Yes [id number] 10mg Take 1 U nivers XL 10 mg 24 9-12 tablet by ity of hr tablet 00:00: mouth [place] 00 daily with Medical breakfast. Branch metformin 2021-0 Yes [id number] 750mg Take 1 Univers ER 750 mg 9-12 tablet by ity o f 24 hr 00:00: mouth [place] tablet 00 daily with Medical breakfast. Branch semaglutide 2021-0 Yes [id number] .5mg inject 0.5 Univers (OZEMPIC) 9-12 mg under ity of 0.25 mg or 00:00: the [place] 0.5 mg(2 00 weekly. Medical mg/1.5 mL) Start 0.25 Bra nch PnIj mg weekly for 4 weeks, then 0.5 mg thereafter glipiZIDE 2021-0 Yes [id number] 10mg Take 1 U nivers XL 10 mg 24 9-12 tablet by ity of hr tablet 00:00: mouth [place] 00 daily with Medical breakfast. Branch metformin 2021-0 Yes [id number] 750mg Take 1 Univers ER 750 mg 9-12 tablet by ity o f 24 hr 00:00: mouth [place] tablet 00 daily with Medical breakfast. Branch semaglutide 2021-0 Yes [id number] .5mg inject 0.5 Univers (OZEMPIC) 9-12 mg under ity of 0.25 mg or 00:00: the [place] 0.5 mg(2 00 weekly. Medical mg/1.5 mL) Start 0.25 Bra nch PnIj mg weekly for 4 weeks, then 0.5 mg thereafter glipiZIDE 2021-0 Yes [id number] 10mg Take 1 U nivers XL 10 mg 24 9-12 tablet by ity of hr tablet 00:00: mouth [place] 00 daily with Medical breakfast. Branch metformin 2021-0 Yes [id number] 750mg Take 1 Univers ER 750 mg 9-12 tablet by ity o f 24 hr 00:00: mouth [place] tablet 00 daily with Medical breakfast. Branch semaglutide 2021-0 Yes [id number] .5mg inject 0.5 Univers (OZEMPIC) 9-12 mg under ity of 0.25 mg or 00:00: the [place] 0.5 mg(2 00 weekly. Medical mg/1.5 mL) Start 0.25 Bra nch PnIj mg weekly for 4 weeks, then 0.5 mg thereafter glipiZIDE 2021-0 Yes [id number] 10mg Take 1 U nivers XL 10 mg 24 9-12 tablet by ity of hr tablet 00:00: mouth [place] 00 daily with Medical breakfast. Branch metformin 2021-0 Yes [id number] 750mg Take 1 Univers ER 750 mg 9-12 tablet by ity o f 24 hr 00:00: mouth [place] tablet 00 daily with Medical breakfast. Branch semaglutide 2021-0 Yes [id number] .5mg inject 0.5 Univers (OZEMPIC) 9-12 mg under ity of 0.25 mg or 00:00: the [place] 0.5 mg(2 00 weekly. Medical mg/1.5 mL) Start 0.25 Bra nch PnIj mg weekly for 4 weeks, then 0.5 mg thereafter glipiZIDE 2021-0 Yes [id number] 10mg Take 1 U nivers XL 10 mg 24 9-12 tablet by ity of hr tablet 00:00: mouth [place] 00 daily with Medical breakfast. Branch metformin 2021-0 Yes [id number] 750mg Take 1 Univers ER 750 mg 9-12 tablet by ity o f 24 hr 00:00: mouth [place] tablet 00 daily with Medical breakfast. Branch semaglutide 2022-0 Yes [id number] .5mg inject 0.5 Univers (OZEMPIC) 9-12 mg under ity of 0.25 mg or 00:00: the [place] 0.5 mg(2 00 weekly. Medical mg/1.5 mL) Start 0.25 Bra nch PnIj mg weekly for 4 weeks, then 0.5 mg thereafter glipiZIDE 0 Yes [id number] 10mg Take 1 U nivers XL 10 mg 24 9-12 tablet by ity of hr tablet 00:00: mouth [place] 00 daily with Medical breakfast. [place] metformin 0 Yes [id number] 750mg Take 1 Univers ER 750 mg 9-12 tablet by ity o f 24 hr 00:00: mouth [place] tablet 00 daily with Medical breakfast. Branch semaglutide Yes [id number] .5mg inject 0.5 Univers (OZEMPIC) 9-12 mg under ity of 0.25 mg or 00:00: the [place] 0.5 mg(2 00 weekly. Medical mg/1.5 mL) Start 0.25 Bra nch PnIj mg weekly for 4 weeks, then 0.5 mg thereafter semaglutide 0 Yes [id number] .5mg inject 0.5 Univers (OZEMPIC) 9-12 mg under ity of 0.25 mg or 00:00: the [place] 0.5 mg(2 00 weekly. Medical mg/1.5 mL) Start 0.25 Bra nch PnIj mg weekly for 4 weeks, then 0.5 mg thereafter semaglutide 2021-0 Yes [id number] .5mg inject 0.5 Univers (OZEMPIC) 9-12 mg under ity of 0.25 mg or 00:00: the [place] 0.5 mg(2 00 weekly. Medical mg/1.5 mL) Start 0.25 Bra nch PnIj mg weekly for 4 weeks, then 0.5 mg thereafter semaglutide 2021-0 Yes [id number] .5mg inject 0.5 Univers (OZEMPIC) 9-12 mg under ity of 0.25 mg or 00:00: the [place] 0.5 mg(2 00 weekly. Medical mg/1.5 mL) Start 0.25 Bra nch PnIj mg weekly for 4 weeks, then 0.5 mg thereafter semaglutide 0 Yes [id number] .5mg inject 0.5 Univers (OZEMPIC) 9-12 mg under ity of 0.25 mg or 00:00: the [place] 0.5 mg(2 00 weekly. Medical mg/1.5 mL) Start 0.25 Bra nch PnIj mg weekly for 4 weeks, then 0.5 mg thereafter semaglutide 0 Yes [id number] .5mg inject 0.5 Univers (OZEMPIC) 9-12 mg under ity of 0.25 mg or 00:00: the [place] 0.5 mg(2 00 weekly. Medical mg/1.5 mL) Start 0.25 Bra nch PnIj mg weekly for 4 weeks, then 0.5 mg thereafter semaglutide Yes [id number] .5mg inject 0.5 Univers (OZEMPIC) 9-12 mg under ity of 0.25 mg or 00:00: the [place] 0.5 mg(2 00 weekly. Medical mg/1.5 mL) Start 0.25 Bra nch PnIj mg weekly for 4 weeks, then 0.5 mg thereafter glipiZIDE 2021- No [id number] 10mg Take 1 Univers XL 10 mg 24 9 12-30 tablet by it y of hr tablet 00:00: 00:00 mouth [place] 00 :00 daily with Medical breakfast. Branch metformin 2021- No [id number] 750mg Take 1 Univers ER 750 mg 9-30 tablet by ity of 24 hr 00:00: 00:00 mouth [place] tablet 00 :00 daily with Medical breakfast. Branch glipiZIDE 2021- No [id number] 10mg Take 1 Univers XL 10 mg 24 9- 12-30 tablet by it y of hr tablet 00:00: 00:00 mouth [place] 00 :00 daily with Medical breakfast. Branch metformin 2021- No [id number] 750mg Take 1 Univers ER 750 mg 9- 12-30 tablet by ity of 24 hr 00:00: 00:00 mouth [place] tablet 00 :00 daily with Medical breakfast. Branch clobetasoL Yes [id number] Apply to Univers 0.05 % 8-05 area(s) 2 ity of ointment 00:00: (two) [place] 00 times Medical daily. Branch clobetasoL 2022-0 Yes [id number] Apply to Univers 0.05 % 8-05 area(s) 2 ity of ointment 00:00: (two) [place] 00 times Medical daily. Branch clobetasoL 2022-0 Yes [id number] Apply to [facility] 0.05 % 8-05 area(s) 2 ity of ointment 00:00: (two) [place] 00 times Medical daily. Branch clobetasoL 2022-0 Yes [id number] Apply to [facility] 0.05 % 8-05 area(s) 2 ity of ointment 00:00: (two) [place] 00 times Medical daily. Branch clobetasoL 2022-0 Yes [id number] Apply to [facility] 0.05 % 8-05 area(s) 2 ity of ointment 00:00: (two) [place] 00 times Medical daily. Branch clobetasoL 2022-0 Yes [id number] Apply to [facility] 0.05 % 8-05 area(s) 2 ity of ointment 00:00: (two) [place] 00 times Medical daily. Branch clobetasoL 2022-0 Yes [id number] Apply to [facility] 0.05 % 8-05 area(s) 2 ity of ointment 00:00: (two) [place] 00 times Medical daily. Branch clobetasoL 2022-0 Yes [id number] Apply to [facility] 0.05 % 8-05 area(s) 2 ity of ointment 00:00: (two) [place] 00 times Medical daily. Branch clobetasoL 2022-0 Yes [id number] Apply to [facility] 0.05 % 8-05 area(s) 2 ity of ointment 00:00: (two) [place] 00 times Medical daily. Branch clobetasoL 2022-0 Yes [id number] Apply to [facility] 0.05 % 8-05 area(s) 2 ity of ointment 00:00: (two) [place] 00 times Medical daily. Branch clobetasoL 2022-0 Yes [id number] Apply to [facility] 0.05 % 8-05 area(s) 2 ity of ointment 00:00: (two) [place] 00 times Medical daily. Branch clobetasoL 2022-0 Yes [id number] Apply to [facility] 0.05 % 8-05 area(s) 2 ity of ointment 00:00: (two) [place] 00 times Medical daily. Branch clobetasoL 2022-0 Yes [id number] Apply to [facility] 0.05 % 8-05 area(s) 2 ity of ointment 00:00: (two) [place] 00 times Medical daily. Branch clobetasoL 2022-0 Yes [id number] Apply to [facility] 0.05 % 8-05 area(s) 2 ity of ointment 00:00: (two) [place] 00 times Medical daily. Branch clobetasoL 2022-0 Yes [id number] Apply to [facility] 0.05 % 8-05 area(s) 2 ity of ointment 00:00: (two) [place] 00 times Medical daily. Branch clobetasoL 2022-0 Yes [id number] Apply to [facility] 0.05 % 8-05 area(s) 2 ity of ointment 00:00: (two) [place] 00 times Medical daily. Branch clobetasoL 2022-0 Yes [id number] Apply to [facility] 0.05 % 8-05 area(s) 2 ity of ointment 00:00: (two) [place] 00 times Medical daily. Branch clobetasoL 2022-0 Yes [id number] Apply to [facility] 0.05 % 8-05 area(s) 2 ity of ointment 00:00: (two) [place] 00 times Medical daily. Branch clobetasoL 2022-0 Yes [id number] Apply to [facility] 0.05 % 8-05 area(s) 2 ity of ointment 00:00: (two) [place] 00 times Medical daily. Branch clobetasoL 2022-0 Yes [id number] Apply to [facility] 0.05 % 8-05 area(s) 2 ity of ointment 00:00: (two) [place] 00 times Medical daily. Branch lisinopriL 2022-0 Yes [id number] 2.5mg Take 1 [facility] 2.5 mg 6-27 tablet by ity of tablet 00:00: mouth [place] 00 daily. Medical Branch lisinopriL 2022-0 Yes [id number] 2.5mg Take 1 [facility] 2.5 mg 6-27 tablet by ity of tablet 00:00: mouth [place] 00 daily. Medical Branch lisinopriL 2021-0 Yes [id number] 2.5mg Take 1 [facility] 2.5 mg 6-27 tablet by ity of tablet 00:00: mouth [place] 00 daily. Medical Branch lisinopriL 2021-0 Yes [id number] 2.5mg Take 1 [facility] 2.5 mg 6-27 tablet by ity of tablet 00:00: mouth [place] 00 daily. Medical Branch lisinopriL 2021-0 Yes [id number] 2.5mg Take 1 [facility] 2.5 mg 6-27 tablet by ity of tablet 00:00: mouth [place] 00 daily. Medical Branch lisinopriL 2021-0 2022- No [id number] 2.5mg Take 1 [facility] 2.5 mg 6-27 [...] TABLET BY ity of tablet 00:00: MOUTH [place] NIGHTLY Medical Branch Cholecalcif 2021-0 Yes 2{capsu Take 2 U nivers ricardo, 5-29 le} capsules ity of Vitamin D3, 00:00: by mouth [place] 50 mcg 00 daily. Medical (2,000 Branch unit) capsule guanFACINE 2021-0 Yes TAKE 1 Unive rs ER 3 mg 5-29 TABLET BY ity of tablet 00:00: MOUTH [place] 00 NIGHTLY Medical Branch Cholecalcif 2-0 Yes 2{capsu Take 2 U nivers ricardo, 5-29 le} capsules ity of Vitamin D3, 00:00: by mouth [place] 50 mcg 00 daily. Medical (2,000 Branch unit) capsule guanFACINE 2022-0 Yes TAKE 1 Unive rs ER 3 mg 5-29 TABLET BY ity of tablet 00:00: MOUTH [place] 00 NIGHTLY Medical Branch Cholecalcif 2-0 Yes 2{capsu [...] TABLET BY ity of tablet 00:00: MOUTH [place] NIGHTLY Medical Branch Cholecalcif 2021-0 Yes 2{capsu Take 2 U nivers ricardo, 5-29 le} capsules ity of Vitamin D3, 00:00: by mouth [place] 50 mcg 00 daily. Medical (2,000 Branch unit) capsule guanFACINE 2021-0 Yes TAKE 1 Unive rs ER 3 mg 5-29 TABLET BY ity of tablet 00:00: MOUTH NIGHTLY Medical Branch Cholecalcif 2021-0 Yes 2{capsu Take 2 U nivers ricardo, 5-29 le} capsules ity of Vitamin D3, 00:00: by mouth [place] 50 mcg 00 daily. Medical (2,000 Branch unit) capsule guanFACINE 2021-0 Yes TAKE 1 Unive rs ER 3 mg 5-29 TABLET BY ity of tablet 00:00: MOUTH [place] NIGHTLY Medical Branch Cholecalcif 2021-0 Yes 2{capsu [...] TABLET BY ity of tablet 00:00: MOUTH [place] NIGHTLY Medical Branch Cholecalcif 2021-0 Yes 2{capsu [...] MOUTH [place] 00 NIGHTLY Medical Branch Cholecalcif 2-0 Yes 2{capsu Take 2 U nivers ricardo, 5-29 le} capsules ity of Vitamin D3, 00:00: by mouth [place] 50 mcg 00 daily. Medical (2,000 Branch unit) capsule guanFACINE 2022-0 Yes TAKE 1 Unive rs ER 3 mg 5-29 TABLET BY ity of tablet 00:00: MOUTH [place] 00 NIGHTLY Medical Branch ROSUVASTATI 2021-0 Yes [id number] 20mg TAKE 1 Univers N 20 mg 5-26 TABLET BY ity of tablet 00:00: MOUTH AT [place] 00 BEDTIME. Medical MUST BE Branch SEEN FOR FURTHER REFILLS ROSUVASTATI 2021-0 Yes [id number] 20mg TAKE 1 Univers N 20 mg 5-26 TABLET BY ity of tablet 00:00: MOUTH AT [place] 00 BEDTIME. Medical MUST BE Branch SEEN FOR FURTHER REFILLS ROSUVASTATI 2021-0 2022- No [id number] 20mg TAKE 1 Univers N 20 mg 5-26 - TABLET BY ity of tablet 00:00: 00:00 MOUTH AT [place] 00 :00 BEDTIME. Medical MUST BE Branch SEEN FOR FURTHER REFILLS ROSUVASTATI 2021-0 2022- No [id number] 20mg TAKE 1 Univers N 20 mg 5-26 -27 TABLET BY ity of tablet 00:00: 00:00 MOUTH AT [place] 00 :00 BEDTIME. Medical MUST BE Branch SEEN FOR FURTHER REFILLS famotidine 2021-0 Yes TAKE 1 Unive rs 20 mg 5-02 TABLET BY ity of tablet 00:00: MOUTH [place] 00 EVERY 12 Medical HOURS FOR Branch 10 DAYS ondansetron 2021-0 Yes TAKE 1 Univ ers 4 mg tablet 5-02 TABLET BY ity of 00:00: [facility] 00 EVERY 12 Medical HOURS Branch NEEDED famotidine 2021-0 Yes TAKE 1 Unive rs 20 mg 5-02 TABLET BY ity of tablet 00:00: [facility] 00 EVERY 12 Medical HOURS FOR Branch 10 DAYS ondansetron 2021-0 Yes TAKE 1 Univ ers 4 mg tablet 5-02 TABLET BY ity of 00:00: [facility] 00 EVERY 12 Medical HOURS Branch NEEDED famotidine 2021-0 Yes TAKE 1 Unive rs 20 mg 5-02 TABLET BY ity of tablet 00:00: [facility] 00 EVERY 12 Medical HOURS FOR Branch 10 DAYS ondansetron 2021-0 Yes TAKE 1 Univ ers 4 mg tablet 5-02 TABLET BY ity of 00:00: [facility] 00 EVERY 12 Medical HOURS Branch NEEDED famotidine 2021-0 Yes TAKE 1 Unive rs 20 mg 5-02 TABLET BY ity of tablet 00:00: [facility] 00 EVERY 12 Medical HOURS FOR [...] by ity of tablet 00:00: mouth 2 [place] (two) Medical times Branch daily. OXcarbazepi 2022-0 Yes 600mg Take 600 U nivers ne 600 mg 4-25 mg by ity of tablet 00:00: mouth 2 [place] (two) Medical times Branch daily. OXcarbazepi 2022-0 Yes 600mg Take 600 U nivers ne 600 mg 4-25 mg by ity of tablet 00:00: mouth 2 [place] (two) Medical times Branch daily. OXcarbazepi 2022-0 Yes 600mg Take 600 U nivers ne 600 mg 4-25 mg by ity of tablet 00:00: mouth 2 [place] (two) Medical times Branch daily. ARIPiprazol 2022-0 Yes 5mg Take 5 mg U nivers e 5 mg 4-12 by mouth ity of tablet 00:00: at [place] [address] bedtime. Medical Branch ARIPiprazol 2022-0 Yes 5mg Take 5 mg U nivers e 5 mg 4-12 by mouth ity of tablet 00:00: at [place] [address] bedtime. Medical Branch ARIPiprazol 2022-0 Yes 5mg Take 5 mg U nivers e 5 mg 4-12 by mouth ity of tablet 00:00: at [place] [address] bedtime. Medical Branch ARIPiprazol 2022-0 Yes 5mg Take 5 mg U nivers e 5 mg 4-12 by mouth ity of tablet 00:00: at [place] [address] bedtime. Medical Branch ARIPiprazol 2022-0 Yes 5mg Take 5 mg U nivers e 5 mg 4-12 by mouth ity of tablet 00:00: at [place] [address] bedtime. Medical Branch ARIPiprazol 2022-0 Yes 5mg Take 5 mg U nivers e 5 mg 4-12 by mouth ity of tablet 00:00: at [place] [address] bedtime. Medical Branch ARIPiprazol 2022-0 Yes 5mg Take 5 mg U nivers e 5 mg 4-12 by mouth ity of tablet 00:00: at [place] [address] bedtime. Medical Branch ARIPiprazol 2022-0 Yes 5mg Take 5 mg U nivers e 5 mg 4-12 by mouth ity of tablet 00:00: at [place] [address] bedtime. Medical Branch ARIPiprazol 2022-0 Yes 5mg Take 5 mg U nivers e 5 mg 4-12 by mouth ity of tablet 00:00: at [place] [address] bedtime. Medical Branch ARIPiprazol 2022-0 Yes 5mg Take 5 mg U nivers e 5 mg 4-12 by mouth ity of tablet 00:00: at [place] [address] bedtime. Medical Branch ARIPiprazol 2022-0 Yes 5mg Take 5 mg U nivers e 5 mg 4-12 by mouth ity of tablet 00:00: at [place] [address] bedtime. Medical Branch ARIPiprazol 2022-0 Yes 5mg Take 5 mg U nivers e 5 mg 4-12 by mouth ity of tablet 00:00: at [place] [address] bedtime. Medical Branch ARIPiprazol 2022-0 Yes 5mg Take 5 mg U nivers e 5 mg 4-12 by mouth ity of tablet 00:00: at [place] [address] bedtime. Medical Branch ARIPiprazol 2022-0 Yes 5mg Take 5 mg U nivers e 5 mg 4-12 by mouth ity of tablet 00:00: at [place] [address] bedtime. Medical Branch ARIPiprazol 2022-0 Yes 5mg Take 5 mg U nivers e 5 mg 4-12 by mouth ity of tablet 00:00: at [place] [address] bedtime. Medical Branch ARIPiprazol 2022-0 Yes 5mg Take 5 mg U nivers e 5 mg 4-12 by mouth ity of tablet 00:00: at [place] [address] bedtime. Medical Branch ARIPiprazol 2022-0 Yes 5mg Take 5 mg U nivers e 5 mg 4-12 by mouth ity of tablet 00:00: at [place] [address] bedtime. Medical Branch ARIPiprazol 2022-0 Yes 5mg Take 5 mg U nivers e 5 mg 4-12 by mouth ity of tablet 00:00: at [place] [address] bedtime. Medical Branch ARIPiprazol 2022-0 Yes 5mg Take 5 mg U nivers e 5 mg 4-12 by mouth ity of tablet 00:00: at [place] [address] bedtime. Medical Branch ARIPiprazol 2022-0 Yes 5mg Take 5 mg U nivers e 5 mg 4-12 by mouth ity of tablet 00:00: at [place] 00 bedtime. Medical Branch ivermectin 2-0 Yes [id number] 13.5mg Take 4.5 Univers 3 mg tablet 1-12 tablets by it y of 00:00: mouth [place] 00 weekly. Medical Branch ivermectin 2021-0 Yes [id number] 13.5mg Take 4.5 Univers 3 mg tablet 1-12 tablets by it y of 00:00: mouth [place] 00 weekly. Medical Branch ivermectin 2-0 Yes [id number] 13.5mg Take 4.5 Univers 3 mg tablet 1-12 tablets by it y of 00:00: mouth [place] 00 weekly. Medical Branch ivermectin 2021-0 Yes [id number] 13.5mg Take 4.5 Univers 3 mg tablet 1-12 tablets by it y of 00:00: mouth [place] 00 weekly. Medical Branch ivermectin 2021-0 Yes [id number] 13.5mg Take 4.5 Univers 3 mg tablet 1-12 tablets by it y of 00:00: mouth [place] 00 weekly. Medical Branch ivermectin 2021-0 Yes [id number] 13.5mg Take 4.5 Univers 3 mg tablet 1-12 tablets by it y of 00:00: mouth [place] 00 weekly. Medical Branch ivermectin 2021-0 Yes [id number] 13.5mg Take 4.5 Univers 3 mg tablet 1-12 tablets by it y of 00:00: mouth [place] 00 weekly. Medical Branch ivermectin 2021-0 Yes [id number] 13.5mg Take 4.5 Univers 3 mg tablet 1-12 tablets by it y of 00:00: mouth [place] 00 weekly. Medical Branch ivermectin 2-0 Yes [id number] 13.5mg Take 4.5 Univers 3 mg tablet 1-12 tablets by it y of 00:00: mouth [place] 00 weekly. Medical Branch ivermectin 2-0 Yes [id number] 13.5mg Take 4.5 Univers 3 mg tablet 1-12 tablets by it y of 00:00: mouth [place] 00 weekly. Medical Branch ivermectin 2-0 Yes [id number] 13.5mg Take 4.5 Univers 3 mg tablet 1-12 tablets by it y of 00:00: mouth [place] 00 weekly. Medical Branch ivermectin 2-0 Yes [id number] 13.5mg Take 4.5 Univers 3 mg tablet 1-12 tablets by it y of 00:00: mouth [place] 00 weekly. Medical Branch ivermectin 2021-0 Yes [id number] 13.5mg Take 4.5 Univers 3 mg tablet 1-12 tablets by it y of 00:00: mouth [place] 00 weekly. Medical Branch ivermectin 2021-0 Yes [id number] 13.5mg Take 4.5 Univers 3 mg tablet 1-12 tablets by it y of 00:00: mouth [place] 00 weekly. Medical Branch ivermectin 2021-0 Yes [id number] 13.5mg Take 4.5 Univers 3 mg tablet 1-12 tablets by it y of 00:00: mouth [place] 00 weekly. Medical Branch ivermectin 2021-0 Yes [id number] 13.5mg Take 4.5 Univers 3 mg tablet 1-12 tablets by it y of 00:00: mouth [place] 00 weekly. Medical Branch ivermectin 2021-0 Yes [id number] 13.5mg Take 4.5 Univers 3 mg tablet 1-12 tablets by it y of 00:00: mouth [place] 00 weekly. Medical Branch ivermectin 2021-0 Yes [id number] 13.5mg Take 4.5 Univers 3 mg tablet 1-12 tablets by it y of 00:00: mouth [place] 00 weekly. Medical Branch ivermectin 2021-0 Yes [id number] 13.5mg Take 4.5 Univers 3 mg tablet 1-12 tablets by it y of 00:00: mouth [place] 00 weekly. Medical Branch ivermectin 2021-0 Yes [id number] 13.5mg Take 4.5 Univers 3 mg tablet [...] by mouth ity of tablet 13:30: daily. [facility] Branch trazodone 2020-10 Yes Take by Unive rs HCl 29 mouth. ity of (TRAZODONE 13:30: [place] ORAL) [facility] citalopram 2020-10 Yes 10mg Take 10 mg U nivers 10 mg 1-29 by mouth ity of tablet 13:30: daily. [facility] Branch trazodone 2020-10 Yes Take by Unive rs HCl 29 mouth. ity of (TRAZODONE 13:30: [place] ORAL) [facility] citalopram 2020-10 Yes 10mg Take 10 mg U nivers 10 mg 1-29 by mouth ity of tablet 13:30: daily. [facility] Branch trazodone 2020-10 Yes Take by Unive rs HCl 11-06 mouth. ity of (TRAZODONE 13:30: [place] ORAL) [facility] citalopram 2020-10 Yes 10mg Take 10 mg U nivers 10 mg 1-29 by mouth ity of tablet 13:30: daily. [facility] Branch trazodone 2020-10 Yes Take by Unive rs HCl 11-06 mouth. ity of (TRAZODONE 13:30: [place] ORAL) [facility] Branch citalopram 2020-10 Yes 10mg Take 10 mg U nivers 10 mg 1-29 by mouth ity of tablet 13:30: daily. [facility] Branch trazodone 2020-10 Yes Take by Unive rs HCl 11-06 mouth. ity of (TRAZODONE 13:30: [place] ORAL) [facility] Branch citalopram 2020-10 Yes 10mg Take 10 mg U nivers 10 mg 1-29 by mouth ity of tablet 13:30: daily. [facility] Branch trazodone 2020-10 Yes Take by Unive rs HCl 29 mouth. ity of (TRAZODONE 13:30: [place] ORAL) [facility] citalopram 2020-10 Yes 10mg Take 10 mg U nivers 10 mg 1-29 by mouth ity of tablet 13:30: daily. [facility] Branch trazodone 2020-10 Yes Take by Unive rs HCl 29 mouth. ity of (TRAZODONE 13:30: [place] ORAL) Medical Branch citalopram 2020-10 Yes 10mg Take 10 mg U nivers 10 mg 1-29 by mouth ity of tablet 13:30: daily. Medical Branch trazodone 2020-10 Yes Take by Unive rs HCl 11-06 mouth. ity of (TRAZODONE 13:30: [place] ORAL) [facility] Branch citalopram 2020-10 Yes 10mg Take 10 mg U nivers 10 mg 1-29 by mouth ity of tablet 13:30: daily. [facility] Branch trazodone 2020-10 Yes Take by Unive rs HCl 11-06 mouth. ity of (TRAZODONE 13:30: [place] ORAL) [facility] Branch citalopram 2020-10 Yes 10mg Take 10 mg U nivers 10 mg 1-29 by mouth ity of tablet 13:30: daily. Medical Branch trazodone 2020-10 Yes Take by Unive rs HCl 11-06 mouth. ity of (TRAZODONE 13:30: [place] ORAL) [facility] Branch citalopram 2020-10 Yes 10mg Take 10 [...] by mouth ity of tablet 13:30: daily. [facility] Branch trazodone 2020-10 Yes Take by Unive rs HCl 29 mouth. ity of (TRAZODONE 13:30: [place] ORAL) Medical Branch citalopram 2020-10 Yes 10mg Take 10 mg U nivers 10 mg 1-29 by mouth ity of tablet 13:30: daily. [facility] Branch trazodone 2020-10 Yes Take by Unive rs HCl 11-06 mouth. ity of (TRAZODONE 13:30: [place] ORAL) [facility] citalopram 2020-10 Yes 10mg Take 10 mg U nivers 10 mg 29 by mouth ity of tablet 13:30: daily. [facility] trazodone 2020-10 Yes Take by Unive rs HCl 11-06 mouth. ity of (TRAZODONE 13:30: [place] ORAL) [facility] citalopram 2020-10 Yes 10mg Take 10 mg U nivers 10 mg 29 by mouth ity of tablet 13:30: daily. [facility] Branch trazodone 2020-10 Yes Take by Unive rs HCl 11-06 mouth. ity of (TRAZODONE 13:30: [place] ORAL) [facility] citalopram 2020-10 Yes 10mg Take 10 mg U nivers 10 mg 29 by mouth ity of tablet 13:30: daily. [facility] trazodone 2020-10 Yes Take by Unive rs HCl 11-06 mouth. ity of (TRAZODONE 13:30: [place] ORAL) [facility] citalopram 2020-10 Yes 10mg Take 10 mg U nivers 10 mg -29 by mouth ity of tablet 13:30: daily. [facility] trazodone 2020-10 Yes Take by Unive rs HCl 11-06 mouth. ity of (TRAZODONE 13:30: [place] ORAL) [facility] citalopram 2020-10 Yes 10mg Take 10 mg U nivers 10 mg -29 by mouth ity of tablet 13:30: daily. [facility] cetirizine Yes [id number] 10mg Take 1 Tab Univers (ZYRTEC) 10 -03 by mouth ity of mg tablet 00:00: daily. [facility] cetirizine Yes [id number] 10mg Take 1 Tab Univers (ZYRTEC) 10 -03 by mouth ity of mg tablet 00:00: daily. [facility] cetirizine Yes [id number] 10mg Take 1 Tab Univers (ZYRTEC) 10 1-03 by mouth ity of mg tablet 00:00: daily. [facility] cetirizine Yes [id number] 10mg Take 1 Tab Univers (ZYRTEC) 10 1-03 by mouth ity of mg tablet 00:00: daily. [place] [facility] cetirizine Yes [id number] 10mg Take 1 Tab Univers (ZYRTEC) 10 1-03 by mouth ity of mg tablet 00:00: daily. [facility] cetirizine Yes [id number] 10mg Take 1 Tab Univers (ZYRTEC) 10 1-03 by mouth ity of mg tablet 00:00: daily. [place] [facility] cetirizine Yes [id number] 10mg Take 1 Tab Univers (ZYRTEC) 10 1-03 by mouth ity of mg tablet 00:00: daily. [place] [facility] cetirizine Yes [id number] 10mg Take 1 Tab Univers (ZYRTEC) 10 1-03 by mouth ity of mg tablet 00:00: daily. [place] [facility] cetirizine Yes [id number] 10mg Take 1 Tab Univers (ZYRTEC) 10 1-03 by mouth ity of mg tablet 00:00: daily. [place] [facility] cetirizine Yes [id number] 10mg Take 1 Tab Univers (ZYRTEC) 10 1-03 by mouth ity of mg tablet 00:00: daily. [facility] cetirizine Yes [id number] 10mg Take 1 Tab Univers (ZYRTEC) 10 1-03 by mouth ity of mg tablet 00:00: daily. [facility] cetirizine Yes [id number] 10mg Take 1 Tab Univers (ZYRTEC) 10 1-03 by mouth ity of mg tablet 00:00: daily. [facility] cetirizine Yes [id number] 10mg Take 1 Tab Univers (ZYRTEC) 10 1-03 by mouth ity of mg tablet 00:00: daily. [facility] cetirizine Yes [id number] 10mg Take 1 Tab Univers (ZYRTEC) 10 1-03 by mouth ity of mg tablet 00:00: daily. [place] [facility] cetirizine Yes [id number] 10mg Take 1 Tab Univers (ZYRTEC) 10 1-03 by mouth ity of mg tablet 00:00: daily. [place] [facility] cetirizine Yes [id number] 10mg Take 1 Tab Univers (ZYRTEC) 10 1-03 by mouth ity of mg tablet 00:00: daily. [place] [facility] cetirizine Yes [id number] 10mg Take 1 Tab Univers (ZYRTEC) 10 1-03 by mouth ity of mg tablet 00:00: daily. [place] [facility] cetirizine Yes [id number] 10mg Take 1 Tab Univers (ZYRTEC) 10 1-03 by mouth ity of mg tablet 00:00: daily. [place] [facility] cetirizine Yes [id number] 10mg Take 1 Tab Univers (ZYRTEC) 10 1-03 by mouth ity of mg tablet 00:00: daily. [place] [facility] cetirizine Yes [id number] 10mg Take 1 Tab Univers (ZYRTEC) 10 1-03 by mouth ity of mg tablet 00:00: daily. [address] Immunizations Ordered Immunization Filled Immunization Date Status Commen ts Source Name Name SARS-COV-2 COVID-19 2021-09-06 Completed Unive rsity of PFIZER VACCINE 00:00:00 [facility] SARS-COV-2 COVID-19 2021-09-06 Completed Unive rsity of PFIZER VACCINE 00:00:00 [facility] SARS-COV-2 COVID-19 2021-09-06 Completed Unive rsity of PFIZER VACCINE 00:00:00 [facility] SARS-COV-2 COVID-19 2021-09-06 Completed Unive rsity of PFIZER VACCINE 00:00:00 [facility] SARS-COV-2 COVID-19 2021-09-06 Completed Unive rsity of PFIZER VACCINE 00:00:00 [facility] SARS-COV-2 COVID-19 2021-09-06 Completed Unive rsity of PFIZER VACCINE 00:00:00 [place] [facility] SARS-COV-2 COVID-19 2021-09-06 Completed Unive rsity of PFIZER VACCINE 00:00:00 [facility] [place] [facility] SARS-COV-2 COVID-19 2021-09-06 Completed Unive rsity of PFIZER VACCINE 00:00:00 [facility] [place] [facility] SARS-COV-2 COVID-19 2021-09-06 Completed Unive rsity of PFIZER VACCINE 00:00:00 [facility] [place] [facility] SARS-COV-2 COVID-19 2021-09-06 Completed Unive rsity of PFIZER VACCINE 00:00:00 [facility] [place] [facility] SARS-COV-2 COVID-19 2021-09-06 Completed Unive rsity of PFIZER VACCINE 00:00:00 [facility] [place] [facility] SARS-COV-2 COVID-19 2021-09-06 Completed Unive rsity of PFIZER VACCINE 00:00:00 [facility] [place] [facility] SARS-COV-2 COVID-19 2021-09-06 Completed Unive rsity of PFIZER VACCINE 00:00:00 [facility] [place] [facility] SARS-COV-2 COVID-19 2021-09-06 Completed Unive rsity of PFIZER VACCINE 00:00:00 [facility] [place] [facility] SARS-COV-2 COVID-19 2021-09-06 Completed Unive rsity of PFIZER VACCINE 00:00:00 [facility] [place] [facility] SARS-COV-2 COVID-19 2021-09-06 Completed Unive rsity of PFIZER VACCINE 00:00:00 [facility] SARS-COV-2 COVID-19 2021-09-06 Completed Unive rsity of PFIZER VACCINE 00:00:00 [facility] [place] [facility] SARS-COV-2 COVID-19 2021-09-06 Completed Unive rsity of PFIZER VACCINE 00:00:00 [facility] [place] [facility] SARS-COV-2 COVID-19 2021-09-06 Completed Unive rsity of PFIZER VACCINE 00:00:00 [facility] [place] [facility] SARS-COV-2 COVID-19 2021-09-06 Completed Unive rsity of PFIZER VACCINE 00:00:00 [facility] SARS-COV-2 COVID-19 2021-02-06 Completed Unive rsity of PFIZER VACCINE 00:00:00 [facility] SARS-COV-2 COVID-19 2021-02-06 Completed Unive rsity of PFIZER VACCINE 00:00:00 [facility] [place] [facility] SARS-COV-2 COVID-19 2021-02-06 Completed Unive rsity of PFIZER VACCINE 00:00:00 [facility] [place] [facility] SARS-COV-2 COVID-19 2021-02-06 Completed Unive rsity of PFIZER VACCINE 00:00:00 [facility] [place] [facility] SARS-COV-2 COVID-19 2021-02-06 Completed Unive rsity of PFIZER VACCINE 00:00:00 [facility] [place] [facility] SARS-COV-2 COVID-19 2021-02-06 Completed Unive rsity of PFIZER VACCINE 00:00:00 [facility] [place] [facility] SARS-COV-2 COVID-19 2021-02-06 Completed Unive rsity of PFIZER VACCINE 00:00:00 [facility] [place] [facility] SARS-COV-2 COVID-19 2021-02-06 Completed Unive rsity of PFIZER VACCINE 00:00:00 [facility] [place] [facility] SARS-COV-2 COVID-19 2021-02-06 Completed Unive rsity of PFIZER VACCINE 00:00:00 [facility] [place] [facility] SARS-COV-2 COVID-19 2021-02-06 Completed Unive rsity of PFIZER VACCINE 00:00:00 [facility] [place] [facility] SARS-COV-2 COVID-19 2021-02-06 Completed Unive rsity of PFIZER VACCINE 00:00:00 [facility] [place] [facility] SARS-COV-2 COVID-19 2021-02-06 Completed Unive rsity of PFIZER VACCINE 00:00:00 [facility] [place] [facility] SARS-COV-2 COVID-19 2021-02-06 Completed Unive rsity of PFIZER VACCINE 00:00:00 [facility] [place] [facility] SARS-COV-2 COVID-19 2021-02-06 Completed Unive rsity of PFIZER VACCINE 00:00:00 [facility] [place] [facility] SARS-COV-2 COVID-19 2021-02-06 Completed [facility] of PFIZER VACCINE 00:00:00 [facility] SARS-COV-2 COVID-19 2021-02-06 Completed [facility] of PFIZER VACCINE 00:00:00 [facility] SARS-COV-2 COVID-19 2021-02-06 Completed [facility] of PFIZER VACCINE 00:00:00 [facility] SARS-COV-2 COVID-19 2021-02-06 Completed [facility] of PFIZER VACCINE 00:00:00 [facility] SARS-COV-2 COVID-19 2021-02-06 Completed [facility] of PFIZER VACCINE 00:00:00 [facility] SARS-COV-2 COVID-19 2021-02-06 Completed [facility] of PFIZER VACCINE 00:00:00 [facility] SARS-COV-2 COVID-19 2021-01-16 Completed [facility] of PFIZER VACCINE 00:00:00 [facility] SARS-COV-2 COVID-19 2021-01-16 Completed [facility] of PFIZER VACCINE 00:00:00 [facility] SARS-COV-2 COVID-19 2021-01-16 Completed [facility] of PFIZER VACCINE 00:00:00 [facility] SARS-COV-2 COVID-19 2021-01-16 Completed [facility] of PFIZER VACCINE 00:00:00 [facility] SARS-COV-2 COVID-19 2021-01-16 Completed [facility] of PFIZER VACCINE 00:00:00 [facility] SARS-COV-2 COVID-19 2021-01-16 Completed [facility] of PFIZER VACCINE 00:00:00 [facility] SARS-COV-2 COVID-19 2021-01-16 Completed [facility] of PFIZER VACCINE 00:00:00 [facility] SARS-COV-2 COVID-19 2021-01-16 Completed [facility] of PFIZER VACCINE 00:00:00 [facility] SARS-COV-2 COVID-19 2021-01-16 Completed [facility] of PFIZER VACCINE 00:00:00 [facility] SARS-COV-2 COVID-19 2021-01-16 Completed [facility] of PFIZER VACCINE 00:00:00 [facility] SARS-COV-2 COVID-19 2021-01-16 Completed [facility] of PFIZER VACCINE 00:00:00 [facility] SARS-COV-2 COVID-19 2021-01-16 Completed [facility] of PFIZER VACCINE 00:00:00 [facility] SARS-COV-2 COVID-19 2021-01-16 Completed [facility] of PFIZER VACCINE 00:00:00 [facility] SARS-COV-2 COVID-19 2021-01-16 Completed [facility] of PFIZER VACCINE 00:00:00 [facility] SARS-COV-2 COVID-19 2021-01-16 Completed [facility] of PFIZER VACCINE 00:00:00 [facility] SARS-COV-2 COVID-19 2021-01-16 Completed [facility] of PFIZER VACCINE 00:00:00 [facility] SARS-COV-2 COVID-19 2021-01-16 Completed [facility] of PFIZER VACCINE 00:00:00 [facility] SARS-COV-2 COVID-19 2021-01-16 Completed [facility] of PFIZER VACCINE 00:00:00 [facility] SARS-COV-2 COVID-19 2021-01-16 Completed [facility] of PFIZER VACCINE 00:00:00 [facility] SARS-COV-2 COVID-19 2021-01-16 Completed [facility] of PFIZER VACCINE 00:00:00 [facility] HEPATITIS A 2014-01-23 Completed [facility] of 00:00:00 [facility] Heamophilus Influenza 2014-01-23 Completed Uni vers[facility] of B 00:00:00 [facility] HEPATITIS A 2014-01-23 Completed University of 00:00:00 [facility] Heamophilus Influenza 2014-01-23 Completed [facility] B 00:00:00 [facility] HEPATITIS A 2014-01-23 Completed [facility] of 00:00:00 [facility] Heamophilus Influenza 2014-01-23 Completed [facility] vers[facility] B 00:00:00 [facility] HEPATITIS A 2014-01-23 Completed [facility] of 00:00:00 [facility] Heamophilus Influenza 2014-01-23 Completed Uni vers[facility] of B 00:00:00 [facility] HEPATITIS A 2014-01-23 Completed [facility] of 00:00:00 [facility] Heamophilus Influenza 2014-01-23 Completed [facility] vers[facility] of B 00:00:00 [facility] HEPATITIS A 2014-01-23 Completed [facility] of 00:00:00 [facility] Heamophilus Influenza 2014-01-23 Completed [facility] vers[facility] of B 00:00:00 [facility] HEPATITIS A 2014-01-23 Completed [facility] of 00:00:00 [facility] Heamophilus Influenza 2014-01-23 Completed Uni vers[facility] of B 00:00:00 [facility] HEPATITIS A 2014-01-23 Completed University of 00:00:00 [facility] Heamophilus Influenza 2014-01-23 Completed Uni vers[facility] of B 00:00:00 [facility] HEPATITIS A 2014-01-23 Completed [facility] of 00:00:00 [facility] Heamophilus Influenza 2014-01-23 Completed [facility] vers[facility] of B 00:00:00 [facility] HEPATITIS A 2014-01-23 Completed [facility] of 00:00:00 [facility] Heamophilus Influenza 2014-01-23 Completed [facility] vers[facility] of B 00:00:00 [facility] HEPATITIS A 2014-01-23 Completed [facility] of 00:00:00 [facility] Heamophilus Influenza 2014-01-23 Completed Uni vers[facility] of B 00:00:00 [facility] HEPATITIS A 2014-01-23 Completed [facility] of 00:00:00 [facility] Heamophilus Influenza 2014-01-23 Completed [facility] vers[facility] of B 00:00:00 [facility] HEPATITIS A 2014-01-23 Completed [facility] of 00:00:00 [facility] Heamophilus Influenza 2014-01-23 Completed [facility] vers[facility] of B 00:00:00 [facility] HEPATITIS A 2014-01-23 Completed [facility] of 00:00:00 [facility] Heamophilus Influenza 2014-01-23 Completed Uni vers[facility] of B 00:00:00 [facility] DTAP 2013-04-12 Completed University of 00:00:00 [facility] Polio (IPV/OPV) 2013-04-12 Completed Universit y of 00:00:00 [facility] Pneumococcal 7 2013-04-12 Completed University of Conjugate, PCV7 00:00:00 [facility] ical (Prevnar7) Branch AP 2013-04-12 Completed University of 00:00:00 [facility] Polio (IPV/OPV) 2013-04-12 Completed [facility]it y of 00:00:00 [facility] Pneumococcal 7 2013-04-12 Completed [facility] of Conjugate, PCV7 00:00:00 [facility] AP 2013-04-12 Completed [facility] of 00:00:00 [facility] Polio (IPV/OPV) 2013-04-12 Completed [facility]it y of 00:00:00 [facility] Pneumococcal 7 2013-04-12 Completed [facility] of Conjugate, PCV7 00:00:00 [facility] ([facility] DTAP 2013-04-12 Completed [facility] of 00:00:00 [facility] Polio (IPV/OPV) 2013-04-12 Completed [facility]it [facility] of 00:00:00 [facility] Pneumococcal 7 2013-04-12 Completed [facility] of Conjugate, PCV7 00:00:00 [facility] (Prevnar7) [facility] DTAP 2013-04-12 Completed [facility] of 00:00:00 [facility] Polio (IPV/OPV) 2013-04-12 Completed [facility]it [facility] of 00:00:00 [facility] Pneumococcal 7 2013-04-12 Completed [facility] of Conjugate, PCV7 00:00:00 [facility] ([facility] 2013-04-12 Completed [facility] of 00:00:00 [facility] Polio (IPV/OPV) 2013-04-12 Completed [facility]it y of 00:00:00 [facility] Pneumococcal 7 2013-04-12 Completed [facility] Conjugate, PCV7 00:00:00 [facility] (Pre[facility]ar[facility] 2013-04-12 Completed [facility] of 00:00:00 [facility] Polio (IPV/OPV) 2013-04-12 Completed [facility] of 00:00:00 [facility] Pneumococcal 7 2013-04-12 Completed [facility] of Conjugate, PCV7 00:00:00 [facility] (Pre[facility]ar[facility] 2013-04-12 Completed [facility] of 00:00:00 [facility] Polio (IPV/OPV) 2013-04-12 Completed [facility] of 00:00:00 [facility] Pneumococcal 7 2013-04-12 Completed [facility] of Conjugate, PCV7 00:00:00 [facility] (Pre[facility]ar[facility] 2013-04-12 Completed [facility] of 00:00:00 [facility] Polio (IPV/OPV) 2013-04-12 Completed [facility] of 00:00:00 [facility] Pneumococcal 7 2013-04-12 Completed [facility] Conjugate, PCV7 00:00:00 [facility] (Pre[facility]ar[facility] 2013-04-12 Completed [facility] of 00:00:00 [facility] Polio (IPV/OPV) 2013-04-12 Completed [facility] of 00:00:00 [facility] Pneumococcal 7 2013-04-12 Completed [facility] Conjugate, PCV7 00:00:00 [facility] (Prevnar7) [facility] DTAP 2013-04-12 Completed [facility] of 00:00:00 [facility] Polio (IPV/OPV) 2013-04-12 Completed [facility] of 00:00:00 [facility] Pneumococcal 7 2013-04-12 Completed [facility] of Conjugate, PCV7 00:00:00 [facility] (Prevnar7) [facility] DTAP 2013-04-12 Completed [facility] of 00:00:00 [facility] Polio (IPV/OPV) 2013-04-12 Completed [facility] of 00:00:00 [facility] Pneumococcal 7 2013-04-12 Completed [facility] Conjugate, PCV7 00:00:00 [facility] (Prevnar[facility] 2013-04-12 Completed [facility] of 00:00:00 [facility] Polio (IPV/OPV) 2013-04-12 Completed [facility] of 00:00:00 [facility] Pneumococcal 7 2013-04-12 Completed [facility] Conjugate, PCV7 00:00:00 [facility] (Pre[facility]ar[facility] 2013-04-12 Completed [facility] of 00:00:00 [facility] Polio (IPV/OPV) 2013-04-12 Completed [facility] of 00:00:00 [facility] Pneumococcal 7 2013-04-12 Completed [facility] Conjugate, PCV7 00:00:00 [facility] (Pre[facility]ar7[facility] 2013-04-12 Completed [facility] of 00:00:00 [facility] Polio (IPV/OPV) 2013-04-12 Completed [facility] of 00:00:00 [facility] Pneumococcal 7 2013-04-12 Completed [facility] Conjugate, PCV7 00:00:00 [facility] (Pre[facility]ar[facility] 2013-04-12 Completed [facility] of 00:00:00 [facility] Polio (IPV/OPV) 2013-04-12 Completed [facility] of 00:00:00 [facility] Pneumococcal 7 2013-04-12 Completed [facility] Conjugate, PCV7 00:00:00 [facility] (Pre[facility]ar[facility] 2013-04-12 Completed [facility] of 00:00:00 [facility] Polio (IPV/OPV) 2013-04-12 Completed [facility] of 00:00:00 [facility] Pneumococcal 7 2013-04-12 Completed [facility] Conjugate, PCV7 00:00:00 [facility] (Prevnar7) [facility] DTAP 2013-04-12 Completed [facility] of 00:00:00 [facility] Polio (IPV/OPV) 2013-04-12 Completed [facility] of 00:00:00 [facility] Pneumococcal 7 2013-04-12 Completed [facility] of Conjugate, PCV7 00:00:00 [facility] ical (Prevnar7) Branch DTAP 2013-04-12 Completed University of 00:00:00 [facility] Polio (IPV/OPV) 2013-04-12 Completed [facility] of 00:00:00 [facility] Pneumococcal 7 2013-04-12 Completed [facility] of Conjugate, PCV7 00:00:00 [facility] ical (Prevnar7) Branch DTAP 2013-04-12 Completed University of 00:00:00 [facility] Polio (IPV/OPV) 2013-04-12 Completed [facility] of 00:00:00 [facility] Pneumococcal 7 2013-04-12 Completed [facility] of Conjugate, PCV7 00:00:00 [facility] ical (Prevnar7) Branch HEPATITIS A 2013-03-15 Completed University of 00:00:00 [facility] Hep B, Adol or Pedi 2013-03-15 Completed Unive [facility]ity of Dosage 00:00:00 [facility] Meningococcal 2013-03-15 Completed [facility] Polysaccharide 00:00:00 [place] [facility] (groups A, C, Y and Branc h W-135) conjugate vaccine (MCV4P) HEPATITIS A 2013-03-15 Completed [facility] of 00:00:00 [facility] Hep B, Adol or Pedi 2013-03-15 Completed [facility]ive [facility] of Dosage 00:00:00 [facility] Meningococcal 2013-03-15 Completed [facility] Polysaccharide 00:00:00 [facility] (groups A, C, Y and Branc h W-135) conjugate vaccine (MCV4P) HEPATITIS A 2013-03-15 Completed [facility] of 00:00:00 [facility] Hep B, Adol or Pedi 2013-03-15 Completed [facility]ive [facility] of Dosage 00:00:00 [facility] Meningococcal 2013-03-15 Completed [facility] Polysaccharide 00:00:00 [facility] (groups A, C, Y and Branc h W-135) conjugate vaccine (MCV4P) HEPATITIS A 2013-03-15 Completed [facility] of 00:00:00 [facility] Hep B, Adol or Pedi 2013-03-15 Completed [facility] of Dosage 00:00:00 [facility] Meningococcal 2013-03-15 Completed [facility] Polysaccharide 00:00:00 [facility] (groups A, C, Y and Branc h W-135) conjugate vaccine (MCV4P) HEPATITIS A 2013-03-15 Completed [facility] of 00:00:00 [facility] Hep B, Adol or Pedi 2013-03-15 Completed [facility] of Dosage 00:00:00 [facility] Meningococcal 2013-03-15 Completed [facility] Polysaccharide 00:00:00 [facility] (groups A, C, Y and Branc h W-135) conjugate vaccine (MCV4P) HEPATITIS A 2013-03-15 Completed [facility] of 00:00:00 [facility] Hep B, Adol or Pedi 2013-03-15 Completed [facility] of Dosage 00:00:00 [facility] Meningococcal 2013-03-15 Completed [facility] Polysaccharide 00:00:00 [place] [facility] (groups A, C, Y and Branc h W-135) conjugate vaccine (MCV4P) HEPATITIS A 2013-03-15 Completed [facility] 00:00:00 [facility] Hep B, Adol or Pedi 2013-03-15 Completed [facility]ive [facility] of Dosage 00:00:00 [facility] Meningococcal 2013-03-15 Completed [facility] Polysaccharide 00:00:00 [facility] (groups A, C, Y and Branc h W-135) conjugate vaccine (MCV4P) HEPATITIS A 2013-03-15 Completed [facility] of 00:00:00 [facility] Hep B, Adol or Pedi 2013-03-15 Completed [facility] of Dosage 00:00:00 [facility] Meningococcal 2013-03-15 Completed [facility] Polysaccharide 00:00:00 [facility] (groups A, C, Y and Branc h W-135) conjugate vaccine (MCV4P) HEPATITIS A 2013-03-15 Completed [facility] of 00:00:00 [facility] Hep B, Adol or Pedi 2013-03-15 Completed [facility] of Dosage 00:00:00 [facility] Meningococcal 2013-03-15 Completed [facility] Polysaccharide 00:00:00 [facility] (groups A, C, Y and Branc h W-135) conjugate vaccine (MCV4P) HEPATITIS A 2013-03-15 Completed [facility] of 00:00:00 [facility] Hep B, Adol or Pedi 2013-03-15 Completed Unive [facility] of Dosage 00:00:00 [facility] Meningococcal 2013-03-15 Completed [facility] Polysaccharide 00:00:00 [facility] (groups A, C, Y and Branc h W-135) conjugate vaccine (MCV4P) HEPATITIS A 2013-03-15 Completed [facility] of 00:00:00 [facility] Hep B, Adol or Pedi 2013-03-15 Completed [facility] of Dosage 00:00:00 [facility] Meningococcal 2013-03-15 Completed [facility] Polysaccharide 00:00:00 [place] [facility] (groups A, C, Y and Branc h W-135) conjugate vaccine (MCV4P) HEPATITIS A 2013-03-15 Completed [facility] of 00:00:00 [facility] Hep B, Adol or Pedi 2013-03-15 Completed [facility] of Dosage 00:00:00 [facility] Meningococcal 2013-03-15 Completed [facility] Polysaccharide 00:00:00 [place] [facility] (groups A, C, Y and Branc h W-135) conjugate vaccine (MCV4P) HEPATITIS A 2013-03-15 Completed [facility] of 00:00:00 [facility] Hep B, Adol or Pedi 2013-03-15 Completed [facility] of Dosage 00:00:00 [facility] Meningococcal 2013-03-15 Completed [facility] Polysaccharide 00:00:00 [place] [facility] (groups A, C, Y and Branc h W-135) conjugate vaccine (MCV4P) HEPATITIS A 2013-03-15 Completed [facility] 00:00:00 [facility] Hep B, Adol or Pedi 2013-03-15 Completed [facility] of Dosage 00:00:00 [facility] Meningococcal 2013-03-15 Completed [facility] Polysaccharide 00:00:00 [place] [facility] (groups A, C, Y and Branc h W-135) conjugate vaccine (MCV4P) HEPATITIS A 2013-03-15 Completed [facility] of 00:00:00 [facility] Hep B, Adol or Pedi 2013-03-15 Completed [facility] of Dosage 00:00:00 [facility] Meningococcal 2013-03-15 Completed [facility] Polysaccharide 00:00:00 [facility] (groups A, C, Y and Branc h W-135) conjugate vaccine (MCV4P) HEPATITIS A 2013-03-15 Completed [facility] of 00:00:00 [facility] Hep B, Adol or Pedi 2013-03-15 Completed [facility] of Dosage 00:00:00 [facility] Meningococcal 2013-03-15 Completed [facility] Polysaccharide 00:00:00 [place] [facility] (groups A, C, Y and Branc h W-135) conjugate vaccine (MCV4P) HEPATITIS A 2013-03-15 Completed [facility] of 00:00:00 [facility] Hep B, Adol or Pedi 2013-03-15 Completed [facility] of Dosage 00:00:00 [facility] Meningococcal 2013-03-15 Completed [facility] Polysaccharide 00:00:00 [place] [facility] (groups A, C, Y and Branc h W-135) conjugate vaccine (MCV4P) HEPATITIS A 2013-03-15 Completed [facility] 00:00:00 [facility] Hep B, Adol or Pedi 2013-03-15 Completed [facility] of Dosage 00:00:00 [facility] Meningococcal 2013-03-15 Completed [facility] Polysaccharide 00:00:00 [place] [facility] (groups A, C, Y and Branc h W-135) conjugate vaccine (MCV4P) HEPATITIS A 2013-03-15 Completed [facility] 00:00:00 [facility] Hep B, Adol or Pedi 2013-03-15 Completed [facility]ive [facility] of Dosage 00:00:00 [facility] Meningococcal 2013-03-15 Completed [facility] Polysaccharide 00:00:00 [place] [facility] (groups A, C, Y and Branc h W-135) conjugate vaccine (MCV4P) HEPATITIS A 2013-03-15 Completed [facility] 00:00:00 [facility] Hep B, Adol or Pedi 2013-03-15 Completed [facility] of Dosage 00:00:00 [facility] Meningococcal 2013-03-15 Completed [facility] Polysaccharide 00:00:00 [place] [facility] (groups A, C, Y and Branc h W-135) conjugate vaccine (MCV4P) Pneumococcal 13 2013-01-24 Completed [facility] Conjugate, PCV13 00:00:00 [facility] (Prevnar 13) [facility] HIB 4 Dose Schedule 2013-01-24 Completed [facility] of 00:00:00 [facility] Hep B, Dtap, Polio 2013-01-24 Completed Univer [facility]ity of 00:00:00 [facility] Pneumococcal 13 2013-01-24 Completed [facility] of Conjugate, PCV13 00:00:00 [facility] (Prevnar 13) [facility] HIB 4 Dose Schedule 2013-01-24 Completed [facility]ive rsity of 00:00:00 [facility] Hep B, Dtap, Polio 2013-01-24 Completed Univer sity of 00:00:00 [facility] Pneumococcal 13 2013-01-24 Completed [facility] of Conjugate, PCV13 00:00:00 [facility] (Prevnar 13) [facility] HIB 4 Dose Schedule 2013-01-24 Completed [facility]ive rsity of 00:00:00 [facility] Hep B, Dtap, Polio 2013-01-24 Completed Univer sity of 00:00:00 [facility] Pneumococcal 13 2013-01-24 Completed [facility] of Conjugate, PCV13 00:00:00 [facility] (Prevnar 13) [facility] HIB 4 Dose Schedule 2013-01-24 Completed [facility] rsity of 00:00:00 [facility] Hep B, Dtap, Polio 2013-01-24 Completed Univer sity of 00:00:00 [facility] Pneumococcal 13 2013-01-24 Completed [facility] of Conjugate, PCV13 00:00:00 [facility] (Prevnar 13) [facility] HIB 4 Dose Schedule 2013-01-24 Completed [facility] rsity of 00:00:00 [facility] Hep B, Dtap, Polio 2013-01-24 Completed Univer sity of 00:00:00 [facility] Pneumococcal 13 2013-01-24 Completed [facility] of Conjugate, PCV13 00:00:00 [facility] (Prevnar 13) [facility] HIB 4 Dose Schedule 2013-01-24 Completed [facility] rsity of 00:00:00 [facility] Hep B, Dtap, Polio 2013-01-24 Completed Univer sity of 00:00:00 [facility] Pneumococcal 13 2013-01-24 Completed Universit y of Conjugate, PCV13 00:00:00 [facility] d[facility] (Prevnar 13) Branch HIB 4 Dose Schedule 2013-01-24 Completed Unive rsity of 00:00:00 [facility] Hep B, Dtap, Polio 2013-01-24 Completed Univer sity of 00:00:00 [facility] Pneumococcal 13 2013-01-24 Completed [facility] of Conjugate, PCV13 00:00:00 [facility] (Prevnar 13) [facility] HIB 4 Dose Schedule 2013-01-24 Completed [facility] rs[facility] of 00:00:00 [facility] Hep B, Dtap, Polio 2013-01-24 Completed Univer sity of 00:00:00 [facility] Pneumococcal 13 2013-01-24 Completed [facility] of Conjugate, PCV13 00:00:00 [facility] (Prevnar 13) [facility] HIB 4 Dose Schedule 2013-01-24 Completed [facility] of 00:00:00 [facility] Hep B, Dtap, Polio 2013-01-24 Completed Univer [facility]ity of 00:00:00 [facility] Pneumococcal 13 2013-01-24 Completed [facility] of Conjugate, PCV13 00:00:00 [place] [facility] (Prevnar 13) [facility] HIB 4 Dose Schedule 2013-01-24 Completed [facility] of 00:00:00 [facility] Hep B, Dtap, Polio 2013-01-24 Completed Univer sity of 00:00:00 [facility] Pneumococcal 13 2013-01-24 Completed [facility] of Conjugate, PCV13 00:00:00 [place] [facility] (Prevnar 13) [facility] HIB 4 Dose Schedule 2013-01-24 Completed [facility]ity of 00:00:00 [facility] Hep B, Dtap, Polio 2013-01-24 Completed Univer sity of 00:00:00 [facility] Pneumococcal 13 2013-01-24 Completed [facility] of Conjugate, PCV13 00:00:00 [facility] (Prevnar 13) [facility] HIB 4 Dose Schedule 2013-01-24 Completed [facility] rsity of 00:00:00 [facility] Hep B, Dtap, Polio 2013-01-24 Completed Univer sity of 00:00:00 [facility] Pneumococcal 13 2013-01-24 Completed [facility] of Conjugate, PCV13 00:00:00 [facility] (Prevnar 13) [facility] HIB 4 Dose Schedule 2013-01-24 Completed [facility]ive rsity of 00:00:00 [facility] Hep B, Dtap, Polio 2013-01-24 Completed Univer sity of 00:00:00 [facility] Pneumococcal 13 2013-01-24 Completed [facility] of Conjugate, PCV13 00:00:00 [facility] (Prevnar 13) [facility] HIB 4 Dose Schedule 2013-01-24 Completed Unive rsity of 00:00:00 [facility] Hep B, Dtap, Polio 2013-01-24 Completed Univer sity of 00:00:00 [facility] Pneumococcal 13 2013-01-24 Completed [facility] of Conjugate, PCV13 00:00:00 [place] [facility] (Prevnar 13) [facility] HIB 4 Dose Schedule 2013-01-24 Completed [facility]ive rsity of 00:00:00 [facility] Hep B, Dtap, Polio 2013-01-24 Completed Univer sity of 00:00:00 [facility] Pneumococcal 13 2013-01-24 Completed [facility]it [facility] of Conjugate, PCV13 00:00:00 [place] [facility] (Prevnar 13) [facility] HIB 4 Dose Schedule 2013-01-24 Completed [facility] rsity of 00:00:00 [facility] Hep B, Dtap, Polio 2013-01-24 Completed Univer sity of 00:00:00 [facility] Pneumococcal 13 2013-01-24 Completed Universit [facility] of Conjugate, PCV13 00:00:00 [facility] dical (Prevnar 13) Branch HIB 4 Dose Schedule 2013-01-24 Completed [facility]ive [facility] of 00:00:00 [facility] Hep B, Dtap, Polio 2013-01-24 Completed Univer sity of 00:00:00 [facility] Pneumococcal 13 2013-01-24 Completed Universit y of Conjugate, PCV13 00:00:00 [facility] dical (Prevnar 13) Branch HIB 4 Dose Schedule 2013-01-24 Completed Unive rsity of 00:00:00 [facility] Hep B, Dtap, Polio 2013-01-24 Completed Univer sity of 00:00:00 [facility] Pneumococcal 13 2013-01-24 Completed Universit y of Conjugate, PCV13 00:00:00 [place] [facility] (Prevnar 13) Branch HIB 4 Dose Schedule 2013-01-24 Completed Unive rsity of 00:00:00 [facility] Hep B, Dtap, Polio 2013-01-24 Completed Univer sity of 00:00:00 [facility] Branch Pneumococcal 13 2013-01-24 Completed Universit y of Conjugate, PCV13 00:00:00 [facility] dical (Prevnar 13) Branch HIB 4 Dose Schedule 2013-01-24 Completed Unive rsity of 00:00:00 [facility] Hep B, Dtap, Polio 2013-01-24 Completed Univer sity of 00:00:00 [facility] Vital Signs Vital Name Observation Time Observation Value Comments Source Systolic blood 2022-10-07 20:47:00 124 mm[Hg] Univer sity of pressure [facility] Diastolic blood 2022-10-07 20:47:00 86 mm[Hg] Unive rsity of pressure [facility] Heart rate 2022-10-07 20:47:00 101 /min Universi ty of [facility] Body height 2022-10-07 20:47:00 165.1 cm Universi ty of [facility] Body weight 2022-10-07 20:47:00 69.264 kg Universi ty of [facility] BMI 2022-10-07 20:47:00 25.41 kg/m2 Universi ty of [facility] Oxygen saturation in 2022-10-07 20:47:00 94 /min University of Arterial blood by [place] [facility] Pulse oximetry Branch Systolic blood 2022-08-05 19:18:00 128 mm[Hg] Univer sity of pressure [facility] Diastolic blood 2022-08-05 19:18:00 81 mm[Hg] Unive rsity of pressure [facility] Heart rate 2022-08-05 19:18:00 110 /min Universi ty of [place] [facility] Respiratory rate 2022-08-05 19:18:00 23 /min Univ ersity of [facility] Branch Body height 2022-08-05 19:18:00 165.1 cm Universi ty of [place] [facility] Body weight 2022-08-05 19:18:00 70.308 kg Universi ty of [place] [facility] [place] BMI 2022-08-05 19:18:00 25.79 kg/m2 Universi ty of [facility] Branch Oxygen saturation in 2022-08-05 19:18:00 97 /min University of Arterial blood by [place] Pulse oximetry Branch Systolic blood 2022-08-04 18:34:00 125 mm[Hg] Univer sity of pressure [facility] Diastolic blood 2022-08-04 18:34:00 84 mm[Hg] Unive rsity of pressure [facility] Heart rate 2022-08-04 18:34:00 96 /min Universi ty of [place] [facility] Body height 2022-08-04 18:34:00 165.1 cm Universi ty of [place] [facility] Body weight 2022-08-04 18:34:00 70.625 kg Universi ty of [place] [facility] BMI 2022-08-04 18:34:00 25.91 kg/m2 Universi ty of [place] [facility] Oxygen saturation in 2022-08-04 18:34:00 97 /min University of Arterial blood by [facility] Pulse oximetry Branch Systolic blood 2022-07-05 16:31:00 128 mm[Hg] Univer sity of pressure [place] [facility] Diastolic blood 2022-07-05 16:31:00 86 mm[Hg] Unive rsity of pressure [facility] Heart rate 2022-07-05 16:31:00 93 /min Universi ty of [place] [facility] Body height 2022-07-05 16:31:00 165.1 cm Universi ty of [place] [facility] Body weight 2022-07-05 16:31:00 67.722 kg Universi ty of [place] [facility] BMI 2022-07-05 16:31:00 24.84 kg/m2 Universi ty of [place] [facility] Oxygen saturation in 2022-07-05 16:31:00 99 /min University of Arterial blood by [facility] Pulse oximetry Branch Procedures Procedure Date / Time Performing Clinician Source Performed ASSIGNMENT OF BENEFITS 2022-10-07 20:44:49 Doctor Unassigned, [facility] [place] [facility] INSURANCE CORRESPONDENCE 2022-08-16 06:01:00 Doctor Unassigned, [facility] [place] [facility] POCT HEMOGLOBIN A1C TEST 2022-08-04 20:25:00 Micheline Gan [facility] Encounters Start End Encounter Admission Attending Care Care Encounter Source Date/Time Date/Time Type Type Clinicians Facility Department ID 2023-03-17 2023-03-17 Outpatient Pee CRUZ [facility] [id number] [facility] 15:30:00 15:30:00 RICHARD gant [facility] 2023-02-26 2023-02-[address] [facility] 1.2.840.114 [id number] Univers 00:00:00 00:00:00 Micheline HEALTH 350.1.13.10 it y of [place] 4.2.7.2.686 Scooter as PITO?BLEA [id number] [address] OFFICE [facility] 2023-02-21 2023-02-[address] [facility] 1.2.840.114 [id number] Univers 00:00:00 00:00:00 Richard H HEALTH 350.1.13.10 it y of [place] 4.2.7.2.686 Scooter as PITO?BLEA [id number] [facility] [address] [facility] OFFICE [facility] 2023-01-19 2023-01-[address] [facility] 1.2.990.486 [id number] Univers 00:00:00 00:00:00 Micheline HEALTH 350.1.13.10 it y of [place] 4.2.7.2.686 Scooter as PITO?BLEA [id number] [address] OFFICE [facility] 2023-01-09 2023-01-09 [facility] 1.2.840.114 [id number] Univers 00:00:00 00:00:00 Micheline HEALTH 350.1.13.10 it y of [place] 4.2.7.2.686 Scooter as PITO?BLEA [id number] [address] OFFICE [facility] 2022-10-18 2022-10-18 [facility] 1.2.840.114 [id number] Univers 00:00:00 00:00:00 Micheline HEALTH 350.1.13.10 it y of [place] 4.2.7.2.686 Scooter as PITO?BLEA [id number] [address] OFFICE [facility] 2022-10-07 2022-10-07 [facility] [id number] Univers 15:00:00 15:46:19 RICHARD gant [facility] 2022-10-07 2022-10-[address] [facility] 1.2.175.539 [id number] Univers 15:00:00 15:46:19 Visit Richard Beltre HEALTH 350.1.13.10 [facility] 4.2.7.2.686 Scooter as PITO?BLEA [id number] [facility] [address] [place] MEDICAL OFFICE [facility] 2022-10-07 2022-10-07 Orders Doctor JEFFERY 1.2.840.114 [id number] Univers 00:00:00 00:00:00 Only Unassigned, GABO 350.1.13.10 ity of [place] [facility] 4.2.7.2.686 Scooter as [id number] [address] 2022-09-15 2022-09-15 [facility] 1.2.791.439 [id number] Univers 00:00:00 00:00:00 Micheline HEALTH 350.1.13.10 [facility] 4.2.7.2.686 Scooter as PITO?BLEA [id number] [address] OFFICE [facility] 2022-08-25 2022-08-25 Outpatient [facility] [id number] Univers 15:48:17 23:59:00 ROSEANNE gant o [facility] [place] 2022-08-16 2022-08-16 Orders Doctor JEFFERY 1.2.840.114 [id number] Univers 00:00:00 00:00:00 Only Unassigned, GABO 350.1.13.10 ity of [place] [facility] 4.2.7.2.686 Scooter as [id number] [address] 2022-08-05 2022-08-05 Outpatient [facility] [id number] Univers 14:00:00 14:39:02 ROSEANNE agnt o f [facility] 2022-08-05 2022-08-[address] [facility] 1.2.840.114 [id number] Univers 14:00:00 14:39:02 Visit Roseanne [facility] 350.1.13.10 ity of [place] 4.2.7.2.[place] [id number] Vt dical NAL 059 [facility] 2022-08-04 2022-08-04 Outpatient [facility] [id number] Univers 13:30:00 14:59:51 MICHELINE gant [facility] 2022-08-04 2022-08-[address] [facility] 1.2.840.114 [id number] Univers 13:30:00 14:59:51 Visit Micheline HEALTH 350.1.13.10 it y of [place] 4.2.7.2.686 Scooter as PITO?BLEA [id number] Vt noel [address] OFFICE [facility] 2022-07-19 2022-07-[address] [facility] 1.2.840.114 [id number] Univers 00:00:00 00:00:00 Luis Miguel HEALTH 350.1.13.10 it y of [place] 4.2.7.2.686 Scooter as PITO?BLEA [id number] Vt noel [address] OFFICE [facility] 2022-07-05 2022-07-05 Outpatient [facility] [id number] Univers 11:30:00 11:46:02 MICHELINE gant [facility] 2022-07-05 2022-07-05 Office [facility] 1.2.840.114 [id number] [facility] 11:30:00 11:46:02 Visit Micheline HEALTH 350.1.13.10 it y of [place] 4.2.7.2.686 Scooter as PITO?BLEA [id number] Vt noel [address] OFFICE [facility] 2022-07-05 2022-07-05 Telephone [facility] 1.2.360.490 [id number] Univers 00:00:00 00:00:00 Micheline HEALTH 350.1.13.10 it y of [place] 4.2.7.2.686 Scooter as PITO?BLEA [id number] Vt noel [address] OFFICE [facility] 2022-06-28 2022-06-[address] [facility] 1.2.693.813 [id number] Univers 00:00:00 00:00:00 Micheline HEALTH 350.1.13.10 it y of [place] 4.2.7.2.686 Scooter as PITO?BLEA [id number] Vt dical SARAH [address] [place] MEDICAL OFFICE BUILDING 2022-06-22 2022-06-22 Telephone Elvia [facility] 1.2.829.248 [id number] Univers 00:00:00 00:00:00 Micheline HEALTH 350.1.13.10 it y of [place] 4.2.7.2.686 Scooter as PITO?BLEA [id number] Vt noel SMITH [address] [place] MEDICAL OFFICE BUILDING 2022-06-21 2022-06-21 Case Johanabelenre [facility] 1.2.840.114 [id number] Univers 00:00:00 00:00:00 Management Tavoia HEALTH 350.1.13.10 ity of [place] 4.2.7.2.686 Scooter as PITO?BLEA [id number] Vt noel SMITH [address] [place] MEDICAL OFFICE BUILDING 2022-06-21 2022-06-21 Case Johanabelenre [facility] 1.2.840.114 [id number] Univers 00:00:00 00:00:00 Management Rania HEALTH 350.1.13.10 ity of [place] 4.2.7.2.686 Scooter as PITO?BLEA [id number] Vt noel SMITH [address] [place] MEDICAL OFFICE BUILDING 2022-06-21 2022-06-21 Case Johanaeblenre [facility] 1.2.840.114 [id number] Univers 00:00:00 00:00:00 Management Tavoia HEALTH 350.1.13.10 ity of [place] 4.2.7.2.686 Scooter as PITO?BLEA [id number] Vt dicsg SMITH [address] [place] MEDICAL OFFICE BUILDING 2022-06-20 2022-06-20 Management Technician Lab, Ang - Db [facility] 1.2.840.1 14 [id number] Univers 12:00:00 12:14:16 Visit Micheline Gan HEALTH 350.1.13.10 ity of [place] 4.2.7.2.686 Scooter as PITO?BLEA [id number] Vt [facility] [address] MEDICAL OFFICE BUILDING 2022-06-20 2022-06-20 Management Technician Lab, Ang - Db [facility] 1.2.840.1 14 [id number] Univers 12:00:00 12:14:16 Visit Micheline Gan HEALTH 350.1.13.10 ity of [place] 4.2.7.2.686 Scooter as PITO?BLEA [id number] [facility] [address] [facility] OFFICE [facility] 2022-06-20 2022-06-20 Management Technician Lab, Ang - Db [facility] 1.2.840.1 14 [id number] [facility] 12:00:00 12:14:16 Visit Micheline Gan HEALTH 350.1.13.10 ity of [place] 4.2.7.2.686 Scooter as PITO?BLEA [id number] [address] OFFICE [facility] 2022-06-20 2022-06-20 Outpatient R ELVIA, [facility] [id number] Univers 11:30:00 11:47:22 MICHELINE ity [facility] 2022-06-20 2022-06-[address] [facility] 1.2.840.114 [id number] Univers 11:30:00 11:47:22 Visit Micheline CALHOUN 350.1.13.10 it y of [place] 4.2.7.2.686 Scooter as PITO?BLEA [id number] [address] OFFICE [facility] 2022-06-20 2022-06-20 Outpatient R ELVIA, [facility] [id number] Univers 11:30:00 11:47:22 MICHELINE ity [facility] 2022-06-20 2022-06-[address] [facility] 1.2.840.114 [id number] Univers 11:30:00 11:47:22 Visit Micheline HEALTH 350.1.13.10 it y of [place] 4.2.7.2.686 Scooter as PITO?BLEA [id number] [address] OFFICE [facility] 2022-06-20 2022-06-20 Outpatient R ELVIA, [facility] [id number] Univers 11:30:00 11:47:22 MICHELINE itnakul of [facility] 2022-06-20 2022-06-20 Letter [facility] 1.2.840.114 [id number] Univers 00:00:00 00:00:00 (Out) Micheline HEALTH 350.1.13.10 it y of [place] 4.2.7.2.686 Scooter as PITO?BLEA [id number] [facility] [address] [place] MEDICAL OFFICE [facility] 2022-06-20 2022-06-20 Telephone [facility] 1.2.594.435 [id number] Univers 00:00:00 00:00:00 Micheline HEALTH 350.1.13.10 it y of [place] 4.2.7.2.686 Scooter as PITO?BLEA [id number] [facility] [address] [facility] OFFICE [facility] 2022-06-20 2022-06-20 [place] [facility] 1.2.939.413 [id number] Univers 00:00:00 00:00:00 Micheline HEALTH 350.1.13.10 it y of [place] 4.2.7.2.686 Scooter as PITO?BLEA [id number] [facility] [address] [facility] OFFICE [facility] 2022-05-28 2022-05-[address] [facility] 1.2.840.114 [id number] Univers 12:00:00 12:00:00 Care Nate HEALTH 350.1.13.10 it y of [place] 4.2.7.2.686 Scooter as PITO?BLEA [id number] [facility] [address] [place] MEDICAL OFFICE [facility] 2022-05-28 2022-05-[address] [facility] 1.2.840.114 [id number] Univers 12:00:00 12:00:00 Care Nate HEALTH 350.1.13.10 it y of [place] 4.2.7.2.686 Scooter as PITO?BLEA [id number] [facility] [address] [facility] OFFICE [facility] 2022-05-28 2022-05-28 Outpatient R GAMAL [facility] [id number] Univers 12:00:00 11:55:15 NATE gant [facility] 2022-05-20 2022-05-20 Outpatient R YAZMIN [facility] [id number] Univers 20:40:00 20:40:00 BRETT gant [facility] 2022-05-12 2022-05-12 Moi Gan [facility] 1.2.840.114 [id number] Univers 00:00:00 00:00:00 Micheline HEALTH 350.1.13.10 it y of [place] 4.2.7.2.686 Scooter as PITO?BLEA [id number] [address] MEDICAL OFFICE [facility] 2022-04-29 2022-04-[address] [facility] 1.2.840.114 [id number] Univers 12:00:00 12:20:00 Care Brett HEALTH 350.1.13.10 it y of [place] 4.2.7.2.686 Scooter as PITO?BLEA [id number] [address] MEDICAL OFFICE [facility] 2022-04-29 2022-04-29 Outpatient R YAZMIN [facility] [id number] Univers 12:00:00 12:00:00 BRETT nakul [facility] 2022-04-04 2022-04-04 [facility] 1.2.840.114 [id number] Univers 00:00:00 00:00:00 Micheline HEALTH 350.1.13.10 it y of [place] 4.2.7.2.686 Scooter as PITO?BLEA [id number] [address] MEDICAL OFFICE [facility] 2022-03-28 2022-03-28 Urgent RosaMagda meade [facility] 1.2.840. 114 [id number] Univers 16:20:00 16:40:00 Care Song, Nate HEALTH 350.1.13.10 ity of [place] 4.2.7.2.686 Scooter as PITO?BLEA [id number] [address] MEDICAL OFFICE [facility] 2022-03-28 2022-03-28 Outpatient R ROSA [facility] [id number] Univers 16:20:00 16:20:00 MAGDA gant o f [facility] 2022-03-21 2022-03-21 Orders Doctor JEFFERY 1.2.840.114 [id number] Univers 00:00:00 00:00:00 Only Unassigned, GABO 350.1.13.10 ity of [place] [facility] 4.2.7.2.686 Scooter as [id number] [address] 2022-03-03 2022-03-03 Refjose Estrada [facility] 1.2.840.114 [id number] Univers 00:00:00 00:00:00 Luis Miguel HEALTH 350.1.13.10 it y of [place] 4.2.7.2.686 Scooter as PITO?BLEA [id number] [address] MEDICAL OFFICE [facility] 2022-02-02 2022-02-02 Khoi Gan [facility] 1.2.899.517 [id number] Univers 00:00:00 00:00:00 Micheline HEALTH 350.1.13.10 it y of [place] 4.2.7.2.686 Scooter as PITO?BLEA [id number] [address] MEDICAL OFFICE [facility] 2022-01-28 2022-01-28 Outpatient R ELVIA [facility] [id number] Univers 11:30:00 11:30:00 MICHELINE nakul [facility] 2022-01-28 2022-01-28 [facility] [id number] Univers 11:30:00 11:30:00 MICHELINE gant [facility] 2022-01-05 2022-01-05 Urgent Brett Arce [facility] 1.2.840.114 [id number] Univers 13:20:00 13:20:00 Jena Hurt Susan [facility] 350.1.13.10 ity of [place] 4.2.7.2.686 Scooter as PITO?BLEA [id number] [address] MEDICAL OFFICE [facility] 2022-01-05 2022-01-05 Outpatient R BLU [facility] [id number] Univers 13:20:00 10:49:31 [facility]-05 2022-01-05 Letter Provider, [facility] 1.2.761.555 [id number] Univers 00:00:00 00:00:00 (Out) Ang Db HEALTH 350.1.13.10 it y of Urgent Care [place] 4.2.7.2.686 [place] PITO?BLEA [id number] [facility] [address] [place] MEDICAL OFFICE [facility] 2022-01-05 2022-01-05 Telephone Yazmin [facility] 1.2.840.114 [id number] Univers 00:00:00 00:00:00 Rania HEALTH 350.1.13.10 it y of [place] 4.2.7.2.686 Scooter as PITO?BLEA [id number] [address] MEDICAL OFFICE [facility] 2022-01-04 2022-01-04 Orders Doctor JEFFERY 1.2.840.114 [id number] Univers 00:00:00 00:00:00 Only Unassigned, GABO 350.1.13.10 ity of [place] [facility] 4.2.7.2.686 Scooter as [id number] [address] 2021-12-31 2021-12-[address] [facility] 1.2.522.152 [id number] Univers 00:00:00 00:00:00 Micheline HEALTH 350.1.13.10 it y of [place] 4.2.7.2.686 Scooter as PITO?BLEA [id number] [address] OFFICE [facility] 2021-12-31 2021-12-[address] [facility] 1.2.469.753 [id number] Univers 00:00:00 00:00:00 Micheline HEALTH 350.1.13.10 it y of [place] 4.2.7.2.686 Scooter as PITO?BLEA [id number] [address] OFFICE [facility] 2021-12-30 2021-12-30 Outpatient Pee GAN [facility] [id number] Univers 11:00:00 11:00:00 MICHELINE itnakul of [facility] 2021-12-30 2021-12-30 Outpatient Pee GAN [facility] [id number] Univers 11:00:00 11:00:00 MICHELINE ity [facility] 2021-12-28 2021-12-28 Outpatient R SENDYCAROLA [facility] [id number] Univers 11:30:00 12:26:05 MICHELINE gant [facility] [address] [facility] 1.2.084.169 [id number] Univers 00:00:00 00:00:00 Micheline HEALTH 350.1.13.10 [facility] 4.2.7.2.686 Scooter as PITO?BLEA [id number] Vt noel [facility] [address] [place] MEDICAL OFFICE [facility] 2021-11-04 2021-11-04 Outpatient R BELKIS [facility] [id number] Univers 11:30:00 11:30:00 CHRISTOPHER stalin [facility] 2021-11-02 2021-11-02 Management Technician Lab, Ang - Db [facility] 1.2.840.1 14 [id number] Univers 16:30:00 16:45:00 Visit Micheline Gan 350.1.13.10 ity of [place] 4.2.7.2.686 Scooter as IPTO?BLEA [id number] [facility] [address] [place] MEDICAL OFFICE [facility] 2021-11-02 2021-11-02 Outpatient R ELVIA [facility] [id number] Univers 15:00:00 16:27:02 MICHELINE gant [facility] 2021-11-02 2021-11-[address] [facility] 1.2.840.114 [id number] Univers 15:00:00 16:27:02 Visit Micheline [facility] 350.1.13.10 [facility] 4.2.7.2.686 Scooter as PITO?BLEA [id number] Vt dick[address] MEDICAL OFFICE [facility] 2021-10-19 2021-10-19 Telephone [place] 1.2.840.114 [id number] Univers 00:00:00 00:00:00 Demetri Deras Y HEALTH 350.1.13.10 i ty of [facility] [place]2.7.2.[place] [id number] [address] 2021-10-18 2021-10-18 Outpatient R KIMBERLY LAKENT [facility] 10 [id number] Univers 13:45:00 15:41:27 DEMETRI LAKE santiago [facility] 2021-10-18 2021-10-18 Office Joan Carlson [facility] 1.2.840.114 [id number] Univers 13:45:00 15:41:27 Visit Dem[place] HEALTH 350.1.13.10 ity of [place] [id number] [address] 2021-10-18 2021-10-18 Office Joan Carlson [facility] 1.2.840.114 [id number] Univers 13:45:00 15:41:27 Visit [place] Nakul HEALTH 350.1.13.10 ity of [place] [id number] [address] 2021-10-18 2021-10-18 Outpatient R DEMETRI LAKE [facility] 10 [id number] Univers 13:45:00 15:41:27 [place] santiago [facility] 2021-10-13 2021-10-[address] [facility] 1.2.770.072 [id number] Univers 00:00:00 00:00:00 Micheline HEALTH 350.1.13.10 it y of [place] 4.2.7.2.686 Scooter as PITO?BLEA [id number] [address] OFFICE [facility] 2021-10-05 2021-10-[address] [facility] 1.2.840.114 [id number] Univers 10:30:00 11:13:32 Visit Micheline HEALTH 350.1.13.10 it y of [place] 4.2.7.2.686 Scooter as PITO?BLEA [id number] [address] OFFICE [facility] 2021-10-05 2021-10-05 [facility] [id number] Univers 10:30:00 11:13:32 MICHELINE ity [facility] 2021-10-05 2021-10-05 [facility] [id number] Univers 10:30:00 10:30:00 MICHELINE gant [facility] 2021-10-05 2021-10-05 Outpatient R ELVIA [facility] [id number] Univers 10:30:00 10:30:00 MICHELINE gant [facility] 2021-10-04 2021-10-[address] [facility] [id number] Univers 00:00:00 00:00:00 Micheline HEALTH 350.1.13.10 it y of [place] 4.2.7.2.686 Scooter as PITO?BLEA [id number] [address] OFFICE [facility] 2021-09-27 2021-09-27 Management Technician Lab, [facility] - [facility] [id number] Univers 10:30:00 10:45:00 Visit Micheline Gan HEALTH 350.1.13.10 ity of [place] 4.2.7.2.686 Scooter as PITO?BLEA [id number] [facility] [address] [facility] OFFICE [facility] 2021-09-27 2021-09-27 Outpatient R ELVIA [facility] [id number] Univers 10:30:00 10:30:00 MICHELINE gant [facility] 2021-09-27 2021-09-[address] [facility] [id number] Univers 00:00:00 00:00:00 Micheline HEALTH 350.1.13.10 it y of [place] 4.2.7.2.686 Scooter as PITO?BLEA [id number] [address] OFFICE [facility] 2021-09-24 2021-09-24 Outpatient R ELVIA [facility] [id number] Univers 16:30:00 17:11:50 MICHELINE gant [facility] 2021-09-24 2021-09-[address] [facility] [id number] Univers 16:30:00 17:11:50 Visit Micheline HEALTH 350.1.13.10 it y of [place] 4.2.7.2.686 Scooter as PITO?BLEA [id number] [address] MEDICAL OFFICE BUILDING 2021-09-24 2021-09-24 [facility]patient [facility] [id number] Univers 16:30:00 17:11:50 MICHELINE gant [facility] 2021-09-06 2021-09-[address] [facility] [id number] Univers 13:07:39 14:01:08 Visit Micheline [facility] [id number] it y of [place] [id number] Scooter as PITO?BLEA [id number] [address] MEDICAL OFFICE BUILDING 2021-09-06 2021-09-06 [facility]patient [facility] [id number] [employer] 13:00:00 14:01:08 MICHELINE ity [facility] 2021-09-06 2021-09-06 Outpatient P[facility] [id number] [employer] 13:00:00 13:00:00 MICHELINE nakul [facility] 2021-09-06 2021-09-06 Orders Doctor JEFFERY [id number] [employer] 00:00:00 00:00:00 Only Unassigned, GABO [id number] ity of [place] [facility] [id number] Scooter as [id number] [address] 2021-02-06 2021-02-06 [facility]patient [facility] [id number] Univers 13:10:00 13:10:00 SHERIF [facility] 2021-01-16 2021-01-16 Outpatient [facility] [id number] [employer] 13:10:00 13:10:00 [facility] Results Test Description Test Time Test Comments Results Result Comments Source POCT HEMOGLOBIN A1C TEST 2022-08-04 21:00:00 Test Item Value Reference Range Interpretation Comme nts POCT HBA1C (test code = 4548-4) 12.1 % 4-6 A Lab Interpretation (test code = 97383-1) [facility] [id number] 21:00:00 Test Item Value Reference Range Interpretation Comments POCT HBA1C (test code = 4548-4) 12.1 % 4-6 A Lab Interpretation (test code = Abnormal 66754-2) [facility]
[2023-03-21] MEDS ORDERED: NA CHLORIDE 0.9% 1,000 ML ONE (21:27)
[2023-03-21 21:36] LABS: Absolute Lymphocytes (CBC) 3.5 K/uL (0.7-4.9); Hematocrit 42.4 % (39.6-49.0); Lymphocytes % 41.5 % (15.3-44.8); MCV 88.9 fL (80-100); MPV 7.9 fL (7.6-11.3); RBC Red Blood Cell Count 4.77 M/uL (4.33-5.43)
[2023-03-21 21:42] LABS: Urine Bacteria None Seen /HPF (<20); Urine Bilirubin NEGATIVE (Negative); Urine Blood Negative (Negative); Urine Clarity Clear (Clear); Urine Color Colorless (Yellow); Urine Glucose 4+ (Over) (Negative); Urine Protein TRACE (Negative); Urine RBC <5 /HPF (None Seen); Urine Urobilinogen Normal (Normal); Urine pH 6.5 (5.0-7.0)
[2023-03-21 21:53] LABS: Albumin 4.1 g/dL (3.4-5.0); Bilirubin Total 0.3 mg/dL (0.2-1.0); Potassium 3.8 mEq/L (3.5-5.1); Protein, Total 7.5 g/dL (6.4-8.2)
--- NOTE | 2023-03-21 22:19 | EDPHYS ---
Physician Documentation [facility] Name: Sergio Hilton Age: 22 yrs Sex: Male : 2000 Arrival Date: 03/21/2023 Time: 21:02 Bed 5 Private MD: ED Physician Sven Zhang HPI: 03/21 21:35 This 22 yrs old Male presents to ER via Ambulatory with complaints of High rt Blood Sugar. 21:35 Patient with history of diabetes on metformin and glipizide presents to the ED with rt hyperglycemia for the past few days. He states his blood sugars been in the 300s. He reports a mild headache but denies other acute complaints at this time other than polyuria. He does report eating sugary substances recently. Denies other acute complaints at this time. Symptoms are moderate severity, no other aggravating alleviating factors.. Historical: - Allergies: 21:18 Latex, Natural Rubber; kd3 - PMHx: 21:18 Bipolar disorder; Irritable bowel syndrome; Leukemia; Diabetes - NIDDM; kd3 - PSHx: 21:18 Appendectomy; kd3 - Immunization history:: Adult Immunizations up to date, Client reports receiving the 2nd dose of the Covid vaccine. - Social history:: Smoking status: Patient denies any tobacco usage or history of. - Family history:: not pertinent. ROS: 21:35 Constitutional: Negative for fever, chills, and weight loss, Cardiovascular: Negative rt for chest pain, palpitations, and edema, Respiratory: Negative for shortness of breath, cough, wheezing, and pleuritic chest pain, Abdomen/GI: Negative for abdominal pain, nausea, vomiting, diarrhea, and constipation, MS/Extremity: Negative for injury and deformity, Psych: Negative for depression, anxiety, suicide ideation, homicidal ideation, and hallucinations. Exam: 21:35 Constitutional: This is a well developed, well nourished patient who is awake, alert, rt and in no acute distress. Head/Face: Normocephalic, atraumatic. Chest/axilla: Normal chest wall appearance and motion. Nontender with no deformity. No lesions are appreciated. Cardiovascular: Regular rate and rhythm with a normal S1 and S2. No gallops, murmurs, or rubs. Normal PMI, no JVD. No pulse deficits. Respiratory: Lungs have equal breath sounds bilaterally, clear to auscultation and percussion. No rales, rhonchi or wheezes noted. No increased work of breathing, no retractions or nasal flaring. Abdomen/GI: Soft, non-tender, with normal bowel sounds. No distension or tympany. No guarding or rebound. No evidence of tenderness throughout. MS/ Extremity: Pulses equal, no cyanosis. Neurovascular intact. Full, normal range of motion. Neuro: Awake and alert, GCS 15, oriented to person, place, time, and situation. Cranial nerves II-XII grossly intact. Motor strength 5/5 in all extremities. Sensory grossly intact. Cerebellar exam normal. Normal gait. Psych: Awake, alert, with orientation to person, place and time. Behavior, mood, and affect are within normal limits. Vital Signs: 21:17 BP 139 / 101; Pulse 74; Resp 16; Temp 98.2(O); Pulse Ox 99% ; Weight 72.57 kg; Height 5 kd3 ft. 5 in. ; 22:26 BP 142 / 94; Pulse 79; Resp 16; Pulse Ox 97% on R/A; ll3 21:17 Body Mass Index 26.63 (72.57 kg, 165.1 cm) kd3 MDM: 21:07 Patient medically screened. rt 22:21 Differential diagnosis: DKA, hyperglycemia. Data reviewed: vital signs, nurses notes, rt lab test result(s). I considered the following discharge prescriptions or medication management in the emergency department Medications were administered in the Emergency Department. See MAR. Care significantly affected by the following chronic conditions: Diabetes. Counseling: I had a detailed discussion with the patient and/or guardian regarding: the historical points, exam findings, and any diagnostic results supporting the discharge/admit diagnosis, lab results, the need for outpatient follow up. Response to treatment: the patient's symptoms have markedly improved after treatment. 03/21 21:15 Order name: CBC with Diff; Complete Time: 21:54 rt 03/21 21:15 Order name: CMP; Complete Time: 21:54 rt 03/21 21:15 Order name: UAM; Complete Time: 21:54 rt 03/21 21:22 Order name: Glucose, Ancillary Testing; Complete Time: 21:54 EDMS 03/21 22:12 Order name: Glucose, Ancillary Testing; Complete Time: 22: EDMS 03/21 21:54 Order name: Olamide; Complete Time: 21:59 rt Administered Medications: 21:30 Drug: NS 0.9% IV 1000 ml Route: IV; Rate: 1 bolus; Site: right antecubital; aa9 22:24 Follow up: Response: No adverse reaction; IV Status: Completed infusion; IV Intake: ll3 1000ml Disposition Summary: 03/21/23 22:18 Discharge Ordered Location: Home rt Problem: new rt Symptoms: have improved rt Condition: Stable rt Diagnosis - Type 2 diabetes mellitus with hyperglycemia rt Followup: rt - With: Private Physician - When: 2 - 3 days - Reason: Discharge Instructions: - Discharge Summary Sheet rt - Type 2 Diabetes Mellitus, Diagnosis, Adult rt - Hyperglycemia rt Forms: - Work release form ll3 - Family Work Release ll3 - Medication Reconciliation Form rt - Thank You Letter rt - Antibiotic Education rt - Prescription Opioid Use rt Signatures: Dispatcher [employer] Debra Villeda RN RN kd3 Peggy Saunders RN RN aa9 Sven Zhang MD MD rt Perez Bruno RN ll3
--- NOTE | 2023-03-21 22:19 | ER ---
Nurse's Notes [facility] Name: Sergio Hilton Age: 22 yrs Sex: Male : 2000 Arrival Date: 03/21/2023 Time: 21:02 Bed 5 Private MD: Diagnosis: Type 2 diabetes mellitus with hyperglycemia Presentation: 03/21 21:17 Chief complaint: Patient states: My blood sugar was 295 at home and it has been running kd3 a bit high in the 300's recently. 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 I take metformin and glipizide. Coronavirus screen: Vaccine status: Patient reports receiving the 2nd dose of the covid vaccine. Ebola Screen: No symptoms or risks identified at this time. Initial Sepsis Screen: Does the patient meet any 2 criteria? No. Patient's initial sepsis screen is negative. Does the patient have a suspected source of infection? No. Patient's initial sepsis screen is negative. Risk Assessment: Do you want to hurt yourself or someone else? Patient reports no desire to harm self or others. Onset of symptoms was March 21, 2023. 21:17 Method Of Arrival: Ambulatory kd3 21:17 Acuity: YURI 3 kd3 Triage Assessment: 21:18 General: Appears in no apparent distress. Behavior is calm, cooperative. Pain: kd3 Complains of pain in headache. Historical: - Allergies: 21:18 Latex, Natural Rubber; kd3 - PMHx: 21:18 Bipolar disorder; Irritable bowel syndrome; Leukemia; Diabetes - NIDDM; kd3 - PSHx: 21:18 Appendectomy; kd3 - Immunization history:: Adult Immunizations up to date, Client reports receiving the 2nd dose of the Covid vaccine. - Social history:: Smoking status: Patient denies any tobacco usage or history of. - Family history:: not pertinent. Screenin:26 [facility] ED Fall Risk Assessment (Adult) History of falling in the last 3 months, ll3 including since admission No falls in past 3 months (0 pts) Confusion or Disorientation No (0 pts) Intoxicated or Sedated No (0 pts) Impaired Gait No (0 pts) Mobility Assist Device Used No (0 pt) Altered Elimination No (0 pt) Score/Fall Risk Level 0 - 2 = Low Risk Oriented to surroundings, Maintained a safe environment, Educated pt \T\ family on fall prevention, incl call for assistance when getting out of bed. Abuse screen: Denies threats or abuse. Denies injuries from another. Nutritional screening: No deficits noted. Tuberculosis screening: No symptoms or risk factors identified. Assessment: 22:27 General: Appears comfortable, Behavior is calm, cooperative. Pain: Denies pain. Neuro: ll3 Level of Consciousness is awake, alert, obeys commands, Oriented to person, place, time, situation, Reports headache. Respiratory: Respiratory effort is even, unlabored, Respiratory pattern is regular, symmetrical. Derm: Skin is pink, warm \T\ dry. Vital Signs: 21:17 BP 139 / 101; Pulse 74; Resp 16; Temp 98.2(O); Pulse Ox 99% ; Weight 72.57 kg; Height 5 kd3 ft. 5 in. ; 22:26 BP 142 / 94; Pulse 79; Resp 16; Pulse Ox 97% on R/A; ll3 21:17 Body Mass Index 26.63 (72.57 kg, 165.1 cm) kd3 ED Course: 21:05 Patient arrived in ED. ja2 21:05 Sven Zhang MD is Attending Physician. rt 21:18 Triage completed. kd3 21:18 Arm band placed on left wrist. kd3 21:21 Peggy Saunders, RN is Primary Nurse. aa9 21:29 UAM Sent. as7 21:29 CMP Sent. as7 21:29 CBC with Diff Sent. as7 21:29 Inserted saline lock: 20 gauge in right antecubital area, using aseptic technique. as7 Blood collected. 21:37 UAM Sent. as7 21:37 CMP Sent. as7 22:26 No provider procedures requiring assistance completed. IV discontinued, intact, ll3 bleeding controlled, No redness/swelling at site. Pressure dressing applied. 22:27 Patient has correct armband on for positive identification. Bed in low position. Call ll3 light in reach. Side rails up X 1. Adult w/ patient. Administered Medications: 21:30 Drug: NS 0.9% IV 1000 ml Route: IV; Rate: 1 bolus; Site: right antecubital; aa9 22:24 Follow up: Response: No adverse reaction; IV Status: Completed infusion; IV Intake: ll3 1000ml Medication: 22:27 VIS not applicable for this client. ll3 Intake: 22:24 IV: 1000ml; Total: 1000ml. ll3 Outcome: 22:18 Discharge ordered by . rt 22: Discharged to home ambulatory, with family. ll3 22: Condition: stable 22: Discharge instructions given to patient, Instructed on discharge instructions, follow up and referral plans. Demonstrated understanding of instructions, follow-up care. 22:28 Patient left the ED. ll3 Signatures: Delmy Vargas Lynsea RN RN ll3 Debra Padron RN RN 3 Peggy Saunders RN RN aa9 Sven Zhang MD MD rt Genevieve Menendez as7
[2023-03-21 22:44] VITALS: TEMP 98.2
[2023-03-21 22:50] VITALS: BP 142/94; O2SAT 97
== END 2023-03-21 22:28 | disposition home or self-care (01) ==
LOC: ER 21:02
DX: E11.65 Type 2 diabetes mellitus with hyperglycemia (principal); Z91.040 Latex allergy status; Z91.048 Other nonmedicinal substance allergy status
CPT/HCPCS: 85025; 81001; 36415; 82947 ×2; 80053; 96360; 99284; J7030

== ENCOUNTER 2023-04-11 23:53 | Emergency (ER) | payer OTHER ==
--- OUTSIDE RECORDS SUMMARY | 2023-04-12 00:03 | XMS REPORT | Continuity of Care Document ---
:2000 Author Organization [facility] t Address [address] [place] [id number] Care Team Providers Name Role Phone EMRE GAN Primary Care Physician Unavailable EMRE GAN Attending Clinician Unavailable RICHARD CRUZ Attending Clinician Unavailable Doctor Unassigned, [place] Attending Clinician Unavailable Lab, Ang - Db Attending Clinician Unavailable Emre Nieves Attending Clinician MELLY BARBER Attending Clinician Unavailable Melly Guzman Attending Clinician Richard Cruz MD Attending Clinician ROSEANNE LEVINE Attending Clinician Unavailable Roseanne Levine MD Attending Clinician Luis Miguel Estrada MD Attending Clinician Bebeto Navas Attending Clinician Kateryna Verduzco MD Attending Clinician KATERYNA VERDUZCO Attending Clinician Unavailable BEBETO ARCE Attending Clinician Unavailable Jama Dickson Attending Clinician JAMA LEE Attending Clinician Unavailable Heide Morelos Attending Clinician HEIDE HURT Attending Clinician Unavailable Provider, [facility] Attending Clinician Unavailable CHRISTOPHER TAMAYO Attending Clinician Unavailable Demetri Lake MD Attending Clinician DEMETRI LAKE Attending Clinician Unavailable DEMETRI LAKE Attending Clinician Unavailable Joan Carlson MD Attending Clinician SHERIF HERNANDEZ Attending Clinician Unavailable ROSEANNE LEVINE Admitting Clinician Unavailable Payers Payer Name Policy Type Policy Number Effective Date Expiration Date S venita [facility] [id number] 2022 PLUS 00:00:00 [facility] [id number] 2018 [facility] MEDICAID 00:00:00 Problems Condition Condition Condition Status [...] different from the original. 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 Leukemia Leukemia Disease Active Unive rs [...] Univers GASE INGREDI 2-25 ity of 00:00: [address] Social History Social Habit Start Date Stop Date Quantity Comments Source History of Passive smoker University of tobacco use [facility] Alcohol intake 2023-03-31 2023-03-31 Current University of 00:00:00 00:00:00 non-drinker of [facility] alcohol (finding) Branch Exposure to 2023-03-14 2023-03-24 Not sure [facility] SARS-CoV-2 00:00:00 09:25:00 [facility] (event) [place] Tobacco use and 2022-06-20 2022-06-20 Smokeless tobacco Un iversity of exposure 00:00:00 00:00:00 non-user [facility] Tobacco Comment 2022-06-20 2022-06-20 Family smokes Univer sity of 00:00:00 00:00:00 outside [facility] Sex Assigned At 2000 2000 Universit y of 00:00:00 00:00:00 [facility] Smoking Status Start Date Stop Date Source Never smoked tobacco [facility] Medications Ordered Filled Start Stop Current Ordering Indication Dosage Frequency Signature Comments Components Source Medication Medication Date Date Medication? Clinician (SIG) Name Name Insulin Yes [id number] 15U inject 15 Univers Glargine 6-23 Units ity of (LANTUS 00:00: under the [facility] 00 skin in Medical U-100 [facility] INSULIN) morning 100 unit/mL and 15 (3 mL) Units in injection the evening. semaglutide Yes [id number] .25mg inject Univers (OZEMPIC) 6-23 0.25 mg ity of 0.25 mg or 00:00: under the [place] 0.5 mg(2 00 skin Medical mg/1.5 mL) weekly. Branch PnIj Insulin Yes [id number] 15U inject 15 Univers Glargine 6-23 Units ity [facility] the Branch INSULIN) morning 100 unit/mL and 15 (3 mL) Units in injection the evening. semaglutide 2022-0 Yes [id number] .25mg inject Univers (OZEMPIC) 6-23 0.25 mg ity of 0.25 mg or 00:00: under the [place] 0.5 mg(2 00 skin Medical mg/1.5 mL) weekly. Branch PnIj Insulin 2022-0 Yes [id number] 15U inject 15 Univers Glargine 6-23 Units ity of (LANTUS 00:00: under the [place] SOLOSTAR 00 skin in Medical U-100 the Branch INSULIN) morning 100 unit/mL and 15 (3 mL) Units in injection the evening. semaglutide 2022-0 Yes [id number] .25mg inject Univers (OZEMPIC) 6-23 0.25 mg ity of 0.25 mg or 00:00: under the [place] 0.5 mg(2 00 skin Medical mg/1.5 mL) weekly. Branch PnIj Insulin 2022-0 Yes [id number] 15U inject 15 Univers Glargine 6-23 Units ity of (LANTUS 00:00: under the [place] SOLOST[facility] 00 skin in Medical U-100 the Branch INSULIN) morning 100 unit/mL and 15 (3 mL) Units in injection the evening. semaglutide 2022-0 Yes [id number] .25mg inject Univers (OZEMPIC) 6-23 0.25 mg ity of 0.25 mg or 00:00: under the [place] 0.5 mg(2 00 skin Medical mg/1.5 mL) weekly. Branch PnIj Insulin 2022-0 Yes [id number] 15U inject 15 Univers Glargine 6-23 Units ity of (LANTUS 00:00: under the [place] SOLOSTAR 00 skin in Medical U-100 the Branch INSULIN) morning 100 unit/mL and 15 (3 mL) Units in injection the evening. semaglutide 2022-0 Yes [id number] .25mg inject Univers (OZEMPIC) 6-23 0.25 mg ity of 0.25 mg or 00:00: under the [place] 0.5 mg(2 00 skin Medical mg/1.5 mL) weekly. Branch PnIj Insulin 2022-0 Yes [id number] 15U inject 15 Univers Glargine 6-23 Units ity of (LANTUS 00:00: under the [place] SOLOSTAR 00 skin in Medical U-100 the Branch INSULIN) morning 100 unit/mL and 15 (3 mL) Units in injection the evening. semaglutide 0 Yes [id number] .25mg inject Univers (OZEMPIC) 6-23 0.25 mg ity of 0.25 mg or 00:00: under the [place] 0.5 mg(2 00 skin Medical mg/1.5 mL) weekly. Branch PnIj icosapent 2022-0 Yes [id number] 2g Take 2 U nivers ethyL 6-16 capsules ity of (VASCEPA) 1 00:00: by mouth [place] gram 00 in the Medical capsule morning Branch and 2 capsules in the evening. ezetimibe 2022-0 Yes [id number] 10mg Take 1 U nivers 10 mg 6-16 tablet by ity of tablet 00:00: mouth in [place] 00 the Medical morning. Branch rosuvastati 2022-0 Yes [id number] 20mg Take 1 Univers n (CRESTOR) 6-16 tablet by ity of 20 mg 00:00: mouth at [place] tablet 00 bedtime. Medical Branch lisinopriL 2022-0 Yes [id number] 2.5mg Take 1 Univers 2.5 mg 6-16 tablet by ity of tablet 00:00: mouth in [place] 00 the Medical morning. Branch icosapent 2022-0 Yes [id number] 2g Take 2 U nivers ethyL 6-16 capsules ity of (VASCEPA) 1 00:00: by mouth [place] gram 00 in the Medical capsule morning Branch and 2 capsules in the evening. ezetimibe 2022-0 Yes [id number] 10mg Take 1 U nivers 10 mg 6-16 tablet by ity of tablet 00:00: mouth in [place] 00 the Medical morning. Branch rosuvastati 2022-0 Yes [id number] 20mg Take 1 Univers n (CRESTOR) 6-16 tablet by ity of 20 mg 00:00: mouth at [place] tablet 00 bedtime. Medical Branch lisinopriL 2022-0 Yes [id number] 2.5mg Take 1 Univers 2.5 mg 6-16 tablet by ity of tablet 00:00: mouth in [place] 00 the Medical morning. Branch icosapent 2022-0 Yes [id number] 2g Take 2 U nivers ethyL 6-16 capsules ity of (VASCEPA) 1 00:00: by mouth [place] gram 00 in the Medical capsule morning Branch and 2 capsules in the evening. ezetimibe 2022-0 Yes [id number] 10mg Take 1 U nivers 10 mg 6-16 tablet by ity of tablet 00:00: mouth in [place] 00 the Medical morning. Branch rosuvastati 2022-0 Yes [id number] 20mg Take 1 Univers n (CRESTOR) 6-16 tablet by ity of 20 mg 00:00: mouth at [place] tablet 00 bedtime. Medical Branch lisinopriL 2022-0 Yes [id number] 2.5mg Take 1 Univers 2.5 mg 6-16 tablet by ity of tablet 00:00: mouth in [place] 00 the Medical morning. Branch icosapent 2022-0 Yes [id number] 2g Take 2 U nivers ethyL 6-16 capsules ity of (VASCEPA) 1 00:00: by mouth [place] gram 00 in the Medical capsule morning Branch and 2 capsules in the evening. ezetimibe 2022-0 Yes [id number] 10mg Take 1 U nivers 10 mg 6-16 tablet by ity of tablet 00:00: mouth in [place] 00 the Medical morning. Branch rosuvastati 2022-0 Yes [id number] 20mg Take 1 Univers n (CRESTOR) 6-16 tablet by ity of 20 mg 00:00: mouth at [place] tablet 00 bedtime. Medical Branch lisinopriL 2022-0 Yes [id number] 2.5mg Take 1 Univers 2.5 mg 6-16 tablet by ity of tablet 00:00: mouth in [place] 00 the Medical morning. Branch icosapent 2022-0 Yes [id number] 2g Take 2 U nivers ethyL 6-16 capsules ity of (VASCEPA) 1 00:00: by mouth [place] gram 00 in the Medical capsule morning Branch and 2 capsules in the evening. ezetimibe 3-0 Yes [id number] 10mg Take 1 U nivers 10 mg 6-16 tablet by ity of tablet 00:00: mouth in [place] 00 the Medical morning. Branch rosuvastati 2023-0 Yes [id number] 20mg Take 1 Univers n (CRESTOR) 6-16 tablet by ity of 20 mg 00:00: mouth at [place] tablet 00 bedtime. Medical Branch lisinopriL 2022-0 Yes [id number] 2.5mg Take 1 Univers 2.5 mg 6-16 tablet by ity of tablet 00:00: mouth in [place] 00 the Medical morning. Branch icosapent 2022-0 Yes [id number] 2g Take 2 U nivers ethyL 6-16 capsules ity of (VASCEPA) 1 00:00: by mouth [place] gram 00 in the Medical capsule morning Branch and 2 capsules in the evening. ezetimibe 2022-0 Yes [id number] 10mg Take 1 U nivers 10 mg 6-16 tablet by ity of tablet 00:00: mouth in [place] 00 the Medical morning. Branch rosuvastati 2022-0 Yes [id number] 20mg Take 1 Univers n (CRESTOR) 6-16 tablet by ity of 20 mg 00:00: mouth at [place] tablet 00 bedtime. Medical Branch lisinopriL 2022-0 Yes [id number] 2.5mg Take 1 Univers 2.5 mg 6-16 tablet by ity of tablet 00:00: mouth in [place] 00 the Medical morning. Branch icosapent 2022-0 Yes [id number] 2g Take 2 U nivers ethyL 6-16 capsules ity of (VASCEPA) 1 00:00: by mouth [place] gram 00 in the Medical capsule morning Branch and 2 capsules in the evening. ezetimibe 2022-0 Yes [id number] 10mg Take 1 U nivers 10 mg 6-16 tablet by ity of tablet 00:00: mouth in [place] 00 the Medical morning. Branch rosuvastati 2022-0 Yes [id number] 20mg Take 1 Univers n (CRESTOR) 6-16 tablet by ity of 20 mg 00:00: mouth at [place] tablet 00 bedtime. Medical Branch lisinopriL 2022-0 Yes [id number] 2.5mg Take 1 Univers 2.5 mg 6-16 tablet by ity of tablet 00:00: mouth in [place] 00 the Medical morning. Branch icosapent 2022-0 Yes [id number] 2g Take 2 U nivers ethyL 6-16 capsules ity of (VASCEPA) 1 00:00: by mouth [place] gram 00 in the Medical capsule morning Branch and 2 capsules in the evening. ezetimibe 3-0 Yes [id number] 10mg Take 1 U nivers 10 mg 6-16 tablet by ity of tablet 00:00: mouth in [place] 00 the Medical morning. Branch rosuvastati 2022-0 Yes [id number] 20mg Take 1 Univers n (CRESTOR) 6-16 tablet by ity of 20 mg 00:00: mouth at [place] tablet 00 bedtime. Medical Branch lisinopriL 2022-0 Yes [id number] 2.5mg Take 1 Univers 2.5 mg 6-16 tablet by ity of tablet 00:00: mouth in [place] 00 the Medical morning. Branch icosapent 2022-0 Yes [id number] 2g Take 2 U nivers ethyL 6-16 capsules ity of (VASCEPA) 1 00:00: by mouth [place] gram 00 in the Medical capsule morning Branch and 2 capsules in the evening. ezetimibe 2022-0 Yes [id number] 10mg Take 1 U nivers 10 mg 6-16 tablet by ity of tablet 00:00: mouth in [place] 00 the Medical morning. Branch rosuvastati 2022-0 Yes [id number] 20mg Take 1 Univers n (CRESTOR) 6-16 tablet by ity of 20 mg 00:00: mouth at [place] tablet 00 bedtime. Medical Branch lisinopriL 2022-0 Yes [id number] 2.5mg Take 1 Univers 2.5 mg 6-16 tablet by ity of tablet 00:00: mouth in [place] 00 the Medical morning. Branch icosapent 2022-0 Yes [id number] 2g Take 2 U nivers ethyL 6-16 capsules ity of (VASCEPA) 1 00:00: by mouth [place] gram 00 in the Medical capsule morning Branch and 2 capsules in the evening. ezetimibe 2022-0 Yes [id number] 10mg Take 1 U nivers 10 mg 6-16 tablet by ity of tablet 00:00: mouth in [place] 00 the Medical morning. Branch rosuvastati 2022-0 Yes [id number] 20mg Take 1 Univers n (CRESTOR) 6-16 tablet by ity of 20 mg 00:00: mouth at [place] tablet 00 bedtime. Medical Branch lisinopriL 2022-0 Yes [id number] 2.5mg Take 1 Univers 2.5 mg 6-16 tablet by ity of tablet 00:00: mouth in [place] 00 the Medical morning. Branch icosapent 0 Yes [id number] 2g Take 2 U nivers ethyL 6-14 capsules ity of (VASCEPA) 1 00:00: by mouth [place] gram 00 in the Medical capsule morning Branch and 2 capsules in the evening. icosapent 2022- No [id number] 2g Take 2 Univers ethyL 6-14 06-16 capsules ity of (VASCEPA) 1 00:00: 00:00 by mouth [place] gram 00 :00 in the Medical capsule morning Branch and 2 capsules in the evening. icosapent 2022-0 2022- No [id number] 2g Take 2 Univers ethyL 6-14 06-16 capsules ity of (VASCEPA) 1 00:00: 00:00 by mouth [place] gram 00 :00 in the Medical capsule morning Branch and 2 capsules in the evening. ezetimibe 2022-0 Yes [id number] 10mg Take 1 U nivers 10 mg 5-22 tablet by ity of tablet 00:00: mouth in [place] 00 the Medical morning. Branch ezetimibe 2022-0 Yes [id number] 10mg Take 1 U nivers 10 mg 5-22 tablet by ity of tablet 00:00: mouth in [place] 00 the Medical morning. Branch ezetimibe 2022-0 3- No [id number] 10mg Take 1 Univers 10 mg 5-22 06-16 tablet by ity of tablet 00:00: 00:00 mouth in [place] 00 :00 the Medical morning. Branch ezetimibe 0 3- No [id number] 10mg Take 1 Univers 10 mg 5-22 06-16 tablet by ity of tablet 00:00: 00:00 mouth in [place] 00 :00 the Medical morning. Branch icosapent 0 Yes [id number] 2g Take 2 U nivers ethyL 4-14 capsules ity of (VASCEPA) 1 00:00: by mouth [place] gram 00 in the Medical capsule morning Branch and 2 capsules in the evening. icosapent 2022-0 Yes [id number] 2g Take 2 U nivers ethyL 4-14 capsules ity of (VASCEPA) 1 00:00: by mouth [place] gram 00 in the Medical capsule morning Branch and 2 capsules in the evening. icosapent Yes [id number] 2g Take 2 U nivers ethyL 4-14 capsules ity of (VASCEPA) 1 00:00: by mouth [place] gram 00 in the Medical capsule morning Branch and 2 capsules in the evening. icosapent 2022- No [id number] 2g Take 2 Univers ethyL 4-14 06-14 capsules ity of (VASCEPA) 1 00:00: 00:00 by mouth [place] gram 00 :00 in the Medical capsule morning Branch and 2 capsules in the evening. rosuvastati Yes [id number] 20mg Take 1 Univers n (CRESTOR) 4-03 tablet by ity of 20 mg 00:00: mouth at [place] tablet 00 bedtime. [facility] Branch rosuvastati Yes [id number] 20mg Take 1 Univers n (CRESTOR) 4-03 tablet by ity of 20 mg 00:00: mouth at [place] tablet 00 bedtime. Medical Branch rosuvastati Yes [id number] 20mg Take 1 Univers n (CRESTOR) 4-03 tablet by ity of 20 mg 00:00: mouth at [place] tablet 00 bedtime. [facility] Branch rosuvastati Yes [id number] 20mg Take 1 Univers n (CRESTOR) 4-03 tablet by ity of 20 mg 00:00: mouth at [place] tablet 00 bedtime. [facility] Branch rosuvastati Yes [id number] 20mg Take 1 Univers n (CRESTOR) 4-03 tablet by ity of 20 mg 00:00: mouth at [place] tablet 00 bedtime. [facility] Branch rosuvastati 2022- No [id number] 20mg Take 1 Univers n (CRESTOR) 4-03 06-16 tablet by it y of 20 mg 00:00: 00:00 mouth at [place] tablet 00 :00 bedtime. [facility] Branch rosuvastati 3- No [id number] 20mg Take 1 Univers n (CRESTOR) 4-03 06-16 tablet by it y of 20 mg 00:00: 00:00 mouth at [place] tablet 00 :00 bedtime. Medical Branch lisinopriL 3-0 Yes [id number] 2.5mg Take 1 Univers 2.5 mg 1-10 tablet by ity of tablet 00:00: mouth in [place] 00 the Medical morning. Branch lisinopriL 3-0 Yes [id number] 2.5mg Take 1 Univers 2.5 mg 1-10 tablet by ity of tablet 00:00: mouth in [place] 00 the Medical morning. Branch lisinopriL 3-0 Yes [id number] 2.5mg Take 1 Univers 2.5 mg 1-10 tablet by ity of tablet 00:00: mouth in [place] 00 the Medical morning. Branch lisinopriL 2022-0 Yes [id number] 2.5mg Take 1 Univers 2.5 mg 1-10 tablet by ity of tablet 00:00: mouth in [place] 00 the Medical morning. Branch lisinopriL 2022-0 Yes [id number] 2.5mg Take 1 Univers 2.5 mg 1-10 tablet by ity of tablet 00:00: mouth in [place] 00 the Medical morning. Branch lisinopriL 2022-0 Yes [id number] 2.5mg Take 1 Univers 2.5 mg 1-10 tablet by ity of tablet 00:00: mouth in [place] 00 the Medical morning. Branch lisinopriL 3-0 3- No [id number] 2.5mg Take 1 Univers 2.5 mg 1-10 06-16 tablet by ity of tablet 00:00: 00:00 mouth in [place] 00 :00 the Medical morning. Branch lisinopriL 3-0 3- No [id number] 2.5mg Take 1 Univers 2.5 mg 1-10 06-16 tablet by ity of tablet 00:00: 00:00 mouth in [place] 00 :00 the Medical morning. Branch metformin 2021- Yes [id number] 750mg Take 1 Univers ER 750 mg 2-30 tablet by ity o f 24 hr 00:00: mouth [place] tablet 00 daily with Medical breakfast. Branch glipiZIDE 2021- Yes [id number] 20mg Take 2 U nivers XL 10 mg 24 2-30 tablets by it y of hr tablet 00:00: mouth [place] 00 daily with Medical breakfast. Branch metformin 2021- Yes [id number] 750mg Take 1 Univers ER 750 mg 2-30 tablet by ity o f 24 hr 00:00: mouth [place] tablet 00 daily with Medical breakfast. Branch glipiZIDE 2021-10 Yes [id number] 20mg Take 2 U nivers XL 10 mg 24 2-30 tablets by it y of hr tablet 00:00: mouth [place] 00 daily with Medical breakfast. Branch metformin 2021-10 Yes [id number] 750mg Take 1 Univers ER 750 mg 2-30 tablet by ity o f 24 hr 00:00: mouth [place] tablet 00 daily with Medical breakfast. Branch glipiZIDE 2021-10 Yes [id number] 20mg Take 2 U nivers XL 10 mg 24 2-30 tablets by it y of hr tablet 00:00: mouth [place] 00 daily with Medical breakfast. Branch metformin 2021-10 Yes [id number] 750mg Take 1 Univers ER 750 mg 2-30 tablet by ity o f 24 hr 00:00: mouth [place] tablet 00 daily with Medical breakfast. Branch glipiZIDE 2021-10 Yes [id number] 20mg Take 2 U nivers XL 10 mg 24 2-30 tablets by it y of hr tablet 00:00: mouth [place] 00 daily with Medical breakfast. [place] metformin 2021-10 Yes [id number] 750mg Take 1 Univers ER 750 mg 2-30 tablet by ity o f 24 hr 00:00: mouth [place] tablet 00 daily with Medical breakfast. Branch glipiZIDE 2021-10 Yes [id number] 20mg Take 2 U nivers XL 10 mg 24 2-30 tablets by it y of hr tablet 00:00: mouth [place] 00 daily with Medical breakfast. [place] metformin 2021-10 Yes [id number] 750mg Take 1 Univers ER 750 mg 2-30 tablet by ity o f 24 hr 00:00: mouth [place] tablet 00 daily with Medical breakfast. Branch glipiZIDE 2021-10 Yes [id number] 20mg Take 2 U nivers XL 10 mg 24 2-30 tablets by it y of hr tablet 00:00: mouth [place] 00 daily with Medical breakfast. [place] metformin 2021-10 Yes [id number] 750mg Take 1 Univers ER 750 mg 2-30 tablet by ity o f 24 hr 00:00: mouth [place] tablet 00 daily with Medical breakfast. Branch glipiZIDE 2021-10 Yes [id number] 20mg Take 2 U nivers XL 10 mg 24 2-30 tablets by it y of hr tablet 00:00: mouth [place] 00 daily with Medical breakfast. Branch metformin 2021-10 Yes [id number] 750mg Take 1 Univers ER 750 mg 2-30 tablet by ity o f 24 hr 00:00: mouth [place] tablet 00 daily with Medical breakfast. Branch glipiZIDE 2021-10 Yes [id number] 20mg Take 2 U nivers XL 10 mg 24 2-30 tablets by it y of hr tablet 00:00: mouth [place] 00 daily with Medical breakfast. Branch metformin 2021-10 Yes [id number] 750mg Take 1 Univers ER 750 mg 2-30 tablet by ity o f 24 hr 00:00: mouth [place] tablet 00 daily with Medical breakfast. Branch glipiZIDE 2021-10 Yes [id number] 20mg Take 2 U nivers XL 10 mg 24 2-30 tablets by it y of hr tablet 00:00: mouth [place] 00 daily with Medical breakfast. Branch metformin 2021-10 Yes [id number] 750mg Take 1 Univers ER 750 mg 2-30 tablet by ity o f 24 hr 00:00: mouth [place] tablet 00 daily with Medical breakfast. Branch glipiZIDE 2021-10 Yes [id number] 20mg Take 2 U nivers XL 10 mg 24 2-30 tablets by it y of hr tablet 00:00: mouth [place] 00 daily with Medical breakfast. Branch metformin 2021-10 Yes [id number] 750mg Take 1 Univers ER 750 mg 2-30 tablet by ity o f 24 hr 00:00: mouth [place] tablet 00 daily with Medical breakfast. Branch glipiZIDE 2021-10 Yes [id number] 20mg Take 2 U nivers XL 10 mg 24 2-30 tablets by it y of hr tablet 00:00: mouth [place] 00 daily with Medical breakfast. Branch metformin 2021-10 Yes [id number] 750mg Take 1 Univers ER 750 mg 2-30 tablet by ity o f 24 hr 00:00: mouth [place] tablet 00 daily with Medical breakfast. Branch glipiZIDE 2021-10 Yes [id number] 20mg Take 2 U nivers XL 10 mg 24 2-30 tablets by it y of hr tablet 00:00: mouth [place] 00 daily with Medical breakfast. Branch metformin 2021-10 Yes [id number] 750mg Take 1 Univers ER 750 mg 2-30 tablet by ity o f 24 hr 00:00: mouth [place] tablet 00 daily with Medical breakfast. Branch glipiZIDE 2021-10 Yes [id number] 20mg Take 2 U nivers XL 10 mg 24 2-30 tablets by it y of hr tablet 00:00: mouth [place] 00 daily with Medical breakfast. Branch metformin 2021-10 Yes [id number] 750mg Take 1 Univers ER 750 mg 2-30 tablet by ity o f 24 hr 00:00: mouth [place] tablet 00 daily with Medical breakfast. Branch glipiZIDE 2021-10 Yes [id number] 20mg Take 2 U nivers XL 10 mg 24 2-30 tablets by it y of hr tablet 00:00: mouth [place] 00 daily with Medical breakfast. Branch metformin 2021-10 Yes [id number] 750mg Take 1 Univers ER 750 mg 2-30 tablet by ity o f 24 hr 00:00: mouth [place] tablet 00 daily with Medical breakfast. Branch glipiZIDE 2021-10 Yes [id number] 20mg Take 2 U nivers XL 10 mg 24 2-30 tablets by it y of hr tablet 00:00: mouth [place] 00 daily with Medical breakfast. Branch metformin 2021-10 Yes [id number] 750mg Take 1 Univers ER 750 mg 2-30 tablet by ity o f 24 hr 00:00: mouth [place] tablet 00 daily with Medical breakfast. Branch glipiZIDE 2021-10 Yes [id number] 20mg Take 2 U nivers XL 10 mg 24 2-30 tablets by it y of hr tablet 00:00: mouth [place] 00 daily with Medical breakfast. Branch metformin 2021-10 Yes [id number] 750mg Take 1 Univers ER 750 mg 2-30 tablet by ity o f 24 hr 00:00: mouth [place] tablet 00 daily with Medical breakfast. Branch glipiZIDE 2021-10 Yes [id number] 20mg Take 2 U nivers XL 10 mg 24 2-30 tablets by it y of hr tablet 00:00: mouth [place] 00 daily with Medical breakfast. Branch metformin 2021-10 Yes [id number] 750mg Take 1 Univers ER 750 mg 2-30 tablet by ity o f 24 hr 00:00: mouth [place] tablet 00 daily with Medical breakfast. Branch glipiZIDE 2021-10 Yes [id number] 20mg Take 2 U nivers XL 10 mg 24 2-30 tablets by it y of hr tablet 00:00: mouth [place] 00 daily with Medical breakfast. Branch LISINOPRIL 2021-10 Yes [id number] TAKE 1 Univers 2.5 mg 0-13 TABLET BY ity of tablet 00:00: MOUTH [place] 00 EVERY DAY Medical Branch LISINOPRIL 2021-10 Yes [id number] TAKE 1 Univers 2.5 mg 0-13 TABLET BY ity of tablet 00:00: MOUTH [place] 00 EVERY DAY Medical Branch LISINOPRIL 2021-10 Yes [id number] TAKE 1 Univers 2.5 mg 0-13 TABLET BY ity of tablet 00:00: MOUTH [place] 00 EVERY DAY Medical Branch LISINOPRIL 2021-10 Yes [id number] TAKE 1 Univers 2.5 mg 0-13 TABLET BY ity of tablet 00:00: MOUTH [place] 00 EVERY DAY Medical Branch LISINOPRIL 2021-10 Yes [id number] TAKE 1 Univers 2.5 mg 0-13 TABLET BY ity of tablet 00:00: MOUTH [place] 00 EVERY DAY Medical Branch LISINOPRIL 2021-10 Yes [id number] TAKE 1 Univers 2.5 mg 0-13 TABLET BY ity of tablet 00:00: MOUTH [place] 00 EVERY DAY Medical Branch LISINOPRIL 2021-10 Yes [id number] TAKE 1 Univers 2.5 mg 0-13 TABLET BY ity of tablet 00:00: MOUTH [place] 00 EVERY DAY Medical Branch LISINOPRIL 2021-10 Yes [id number] TAKE 1 Univers 2.5 mg 0-13 TABLET BY ity of tablet 00:00: MOUTH [place] 00 EVERY DAY Medical Branch LISINOPRIL 2021-2022- No [id number] TAKE 1 Univers 2.5 mg 0-13 01-10 TABLET BY ity of tablet 00:00: 00:00 MOUTH [place] 00 :00 EVERY DAY Medical Branch LISINOPRIL 2021-2022- No [id number] TAKE 1 Univers 2.5 mg 0-13 01-10 TABLET BY ity of tablet 00:00: 00:00 MOUTH [place] 00 :00 EVERY DAY Medical Branch LISINOPRIL 2021-2022- No [id number] TAKE 1 Univers 2.5 mg 0-13 01-10 TABLET BY ity of tablet 00:00: 00:00 MOUTH [place] 00 :00 EVERY DAY Medical Branch rosuvastati 2022-0 Yes [id number] 20mg Take 1 Univers n (CRESTOR) 9-27 tablet by ity of 20 mg 00:00: mouth at [place] tablet 00 bedtime. Medical Branch ezetimibe 2021-0 Yes [id number] 10mg Take 1 U nivers 10 mg 9-27 tablet by ity of tablet 00:00: mouth in [place] 00 the Medical morning. Branch rosuvastati 2021-0 Yes [id number] 20mg Take 1 Univers n (CRESTOR) 9-27 tablet by ity of 20 mg 00:00: mouth at [place] tablet 00 bedtime. Medical Branch ezetimibe 0 Yes [id number] 10mg Take 1 U nivers 10 mg 9-27 tablet by ity of tablet 00:00: mouth in [place] 00 the Medical morning. Branch rosuvastati 0 Yes [id number] 20mg Take 1 Univers n (CRESTOR) 9-27 tablet by ity of 20 mg 00:00: mouth at [place] tablet 00 bedtime. Medical Branch ezetimibe 0 Yes [id number] 10mg Take 1 U nivers 10 mg 9-27 tablet by ity of tablet 00:00: mouth in [place] 00 the Medical morning. Branch rosuvastati 0 Yes [id number] 20mg Take 1 [facility] (CRESTOR) 9-27 tablet by ity of 20 mg 00:00: mouth at [place] tablet 00 bedtime. Medical Branch ezetimibe 0 Yes [id number] 10mg Take 1 [facility] nivers 10 mg 9-27 tablet by ity of tablet 00:00: mouth in [place] 00 the Medical morning. Branch rosuvastati 2021-0 Yes [id number] 20mg Take 1 [facility] n (CRESTOR) 9-27 tablet by ity of 20 mg 00:00: mouth at [place] tablet 00 bedtime. Medical Branch ezetimibe 2021-0 Yes [id number] 10mg Take 1 [facility] nivers 10 mg 9-27 tablet by ity of tablet 00:00: mouth in [place] 00 the Medical morning. Branch rosuvastati 2021-0 Yes [id number] 20mg Take 1 [facility] n (CRESTOR) 9-27 tablet by ity of 20 mg 00:00: mouth at [place] tablet 00 bedtime. Medical Branch ezetimibe 2021-0 Yes [id number] 10mg Take 1 [facility] nivers 10 mg 9-27 tablet by ity of tablet 00:00: mouth in [place] 00 the Medical morning. Branch rosuvastati 2021-0 Yes [id number] 20mg Take 1 [facility] n (CRESTOR) 9-27 tablet by ity of 20 mg 00:00: mouth at [place] tablet 00 bedtime. Medical Branch ezetimibe 2021-0 Yes [id number] 10mg Take 1 [facility] nivers 10 mg 9-27 tablet by ity of tablet 00:00: mouth in [place] 00 the Medical morning. Branch rosuvastati 0 Yes [id number] 20mg Take 1 [facility] n (CRESTOR) 9-27 tablet by ity of 20 mg 00:00: mouth at [place] tablet 00 bedtime. Medical Branch ezetimibe 0 Yes [id number] 10mg Take 1 [facility] nivers 10 mg 9-27 tablet by ity of tablet 00:00: mouth in [place] 00 the Medical morning. Branch rosuvastati 0 Yes [id number] 20mg Take 1 [facility] n (CRESTOR) 9-27 tablet by ity of 20 mg 00:00: mouth at [place] tablet 00 bedtime. Medical Branch ezetimibe 0 Yes [id number] 10mg Take 1 [facility] nivers 10 mg 9-27 tablet by ity of tablet 00:00: mouth in [place] 00 the Medical morning. Branch rosuvastati 0 Yes [id number] 20mg Take 1 [facility] n (CRESTOR) 9-27 tablet by ity of 20 mg 00:00: mouth at [place] tablet 00 bedtime. Medical Branch ezetimibe 2021-0 Yes [id number] 10mg Take 1 [facility] nivers 10 mg 9-27 tablet by ity of tablet 00:00: mouth in [place] 00 the Medical morning. Branch rosuvastati 2021-0 Yes [id number] 20mg Take 1 [facility] n (CRESTOR) 9-27 tablet by ity of 20 mg 00:00: mouth at [place] tablet 00 bedtime. Medical Branch ezetimibe 2021-0 Yes [id number] 10mg Take 1 [facility] n[facility] 10 mg 9-27 tablet by ity of tablet 00:00: mouth in [place] 00 the Medical morning. Branch rosuvastati 2022-0 Yes [id number] 20mg Take 1 [facility] n (CRESTOR) 9-27 tablet by ity of 20 mg 00:00: mouth at [place] tablet 00 bedtime. Medical Branch ezetimibe 2021-0 Yes [id number] 10mg Take 1 [facility] 10 mg 9-27 tablet by ity of tablet 00:00: mouth in [place] 00 the Medical morning. Branch rosuvastati 2021-0 Yes [id number] 20mg Take 1 [facility] n (CRESTOR) 9-27 tablet by ity of 20 mg 00:00: mouth at [place] tablet 00 bedtime. Medical Branch ezetimibe 2021-0 Yes [id number] 10mg Take 1 [facility] n[facility] 10 mg 9-27 tablet by ity of tablet 00:00: mouth in [place] 00 the Medical morning. Branch rosuvastati 2021-0 Yes [id number] 20mg Take 1 [facility] n (CRESTOR) 9-27 tablet by ity of 20 mg 00:00: mouth at [place] tablet 00 bedtime. Medical Branch ezetimibe 2021-0 Yes [id number] 10mg Take 1 [facility] n[facility] 10 mg 9-27 tablet by ity of tablet 00:00: mouth in [place] 00 the Medical morning. Branch ezetimibe 2021-0 Yes [id number] 10mg Take 1 [facility] nivers 10 mg 9-27 tablet by ity of tablet 00:00: mouth in [place] 00 the Medical morning. Branch ezetimibe 2021-0 Yes [id number] 10mg Take 1 [facility] 10 mg 9-27 tablet by ity of tablet 00:00: mouth in [place] 00 the Medical morning. Branch ezetimibe 2021-0 Yes [id number] 10mg Take 1 [facility] 10 mg 9-27 tablet by ity of tablet 00:00: mouth in [place] 00 the Medical morning. Branch ezetimibe 2-0 3- No [id number] 10mg Take 1 [facility] 10 mg 9-27 05-22 tablet by ity of tablet 00:00: 00:00 mouth in [place] 00 :00 the Medical morning. Branch rosuvastati 2-0 2023- No [id number] 20mg Take 1 [facility] n (CRESTOR) 9-27 04-03 tablet by it y of 20 mg 00:00: 00:00 mouth at [place] tablet 00 :00 bedtime. Medical Branch icosapent No [id number] 2g Take 2 [facility] ethyL 9-14 10-15 capsules ity of (VASCEPA) 1 00:00: 04:59 by mouth [place] gram 00 :00 in the Medical capsule morning Branch and 2 capsules in the evening. Do all this for 30 days. icosapent 2021- No [id number] 2g Take 2 [facility] ethyL 9-14 10-15 capsules ity of (VASCEPA) 1 00:00: 04:59 by mouth [place] gram 00 :00 in the Medical capsule morning Branch and 2 capsules in the evening. Do all this for 30 days. icosapent No [id number] 2g Take 2 [facility] ethyL 9-14 10-15 capsules ity of (VASCEPA) 1 00:00: 04:59 by mouth [place] gram 00 :00 in the Medical capsule morning Branch and 2 capsules in the evening. Do all this for 30 days. icosapent No [id number] 2g Take 2 [facility] ethyL 9-14 10-15 capsules ity of (VASCEPA) 1 00:00: 04:59 by mouth [place] gram 00 :00 in the Medical capsule morning Branch and 2 capsules in the evening. Do all this for 30 days. icosapent No [id number] 2g Take 2 [facility] ethyL 9-14 10-15 capsules ity of (VASCEPA) 1 00:00: 04:59 by mouth [place] gram 00 :00 in the Medical capsule morning Branch and 2 capsules in the evening. Do all this for 30 days. semaglutide Yes [id number] .5mg inject 0.5 [facility] (OZEMPIC) 9-12 mg under ity of 0.25 mg or 00:00: the skin [place] 0.5 mg(2 00 weekly. Medical mg/1.5 mL) Start 0.25 [facility] PnIj mg weekly for 4 weeks, then 0.5 mg thereafter glipiZIDE Yes [id number] 10mg Take 1 U nivers XL 10 mg 24 9-12 tablet by ity of hr tablet 00:00: mouth [place] 00 daily with Medical breakfast. Branch metformin 0 Yes [id number] 750mg Take 1 [facility] ER 750 mg 9-12 tablet by ity o f 24 hr 00:00: mouth [place] tablet 00 daily with Medical breakfast. Branch semaglutide 0 Yes [id number] .5mg inject 0.5 [facility] (OZEMPIC) 9-12 mg under ity of 0.25 mg or 00:00: the skin [place] 0.5 mg(2 00 weekly. Medical mg/1.5 mL) Start 0.25 Bra nch PnIj mg weekly for 4 weeks, then 0.5 mg thereafter glipiZIDE 0 Yes [id number] 10mg Take 1 [facility] nivers XL 10 mg 24 9-12 tablet by ity of hr tablet 00:00: mouth [place] 00 daily with Medical breakfast. Branch metformin 0 Yes [id number] 750mg Take 1 [facility] ER 750 mg 9-12 tablet by ity o f 24 hr 00:00: mouth [place] tablet 00 daily with Medical breakfast. Branch semaglutide 0 Yes [id number] .5mg inject 0.5 [facility] (OZEMPIC) 9-12 mg under ity of 0.25 mg or 00:00: the skin [place] 0.5 mg(2 00 weekly. Medical mg/1.5 mL) Start 0.25 Bra nch PnIj mg weekly for 4 weeks, then 0.5 mg thereafter glipiZIDE 0 Yes [id number] 10mg Take 1 [facility] nivers XL 10 mg 24 9-12 tablet by ity of hr tablet 00:00: mouth [place] 00 daily with Medical breakfast. [place] metformin 0 Yes [id number] 750mg Take 1 [facility] ER 750 mg 9-12 tablet by ity o f 24 hr 00:00: mouth [place] tablet 00 daily with Medical breakfast. Branch semaglutide 0 Yes [id number] .5mg inject 0.5 [facility] (OZEMPIC) 9-12 mg under ity of 0.25 mg or 00:00: the skin [place] 0.5 mg(2 00 weekly. Medical mg/1.5 mL) Start 0.25 [facility] nch PnIj mg weekly for 4 weeks, then 0.5 mg thereafter glipiZIDE 2021-0 Yes [id number] 10mg Take 1 [facility] nivers XL 10 mg 24 9-12 tablet by ity of hr tablet 00:00: mouth [place] 00 daily with Medical breakfast. Branch metformin 2021-0 Yes [id number] 750mg Take 1 [facility] ER 750 mg 9-12 tablet by ity o f 24 hr 00:00: mouth [place] tablet 00 daily with Medical breakfast. Branch semaglutide 2021-0 Yes [id number] .5mg inject 0.5 [facility] (OZEMPIC) 9-12 mg under ity of 0.25 mg or 00:00: the skin [place] 0.5 mg(2 00 weekly. Medical mg/1.5 mL) Start 0.25 Bra nch PnIj mg weekly for 4 weeks, then 0.5 mg thereafter glipiZIDE 0 Yes [id number] 10mg Take 1 [facility] nivers XL 10 mg 24 9-12 tablet by ity of hr tablet 00:00: mouth [place] 00 daily with Medical breakfast. Branch metformin 2021-0 Yes [id number] 750mg Take 1 [facility] ER 750 mg 9-12 tablet by ity o f 24 hr 00:00: mouth [place] tablet 00 daily with Medical breakfast. Branch semaglutide 0 Yes [id number] .5mg inject 0.5 [facility] (OZEMPIC) 9-12 mg under ity of 0.25 mg or 00:00: the [place] 0.5 mg(2 00 weekly. Medical mg/1.5 mL) Start 0.25 Bra nch PnIj mg weekly for 4 weeks, then 0.5 mg thereafter glipiZIDE 0 Yes [id number] 10mg Take 1 [facility] nivers XL 10 mg 24 9-12 tablet by ity of hr tablet 00:00: mouth [place] 00 daily with Medical breakfast. Branch metformin 2021-0 Yes [id number] 750mg Take 1 [facility] ER 750 mg 9-12 tablet by ity o f 24 hr 00:00: mouth [place] tablet 00 daily with Medical breakfast. Branch semaglutide 2021-0 Yes [id number] .5mg inject 0.5 [facility] (OZEMPIC) 9-12 mg under ity of 0.25 mg or 00:00: the skin [place] 0.5 mg(2 00 weekly. Medical mg/1.5 mL) Start 0.25 Bra nch PnIj mg weekly for 4 weeks, then 0.5 mg thereafter glipiZIDE 2022-0 Yes [id number] 10mg Take 1 U nivers XL 10 mg 24 9-12 tablet by ity of hr tablet 00:00: mouth [place] 00 daily with Medical breakfast. Branch metformin 2021-0 Yes [id number] 750mg Take 1 [facility] ER 750 mg 9-12 tablet by ity o f 24 hr 00:00: mouth [place] tablet 00 daily with Medical breakfast. Branch semaglutide 2021-0 Yes [id number] .5mg inject 0.5 [facility] (OZEMPIC) 9-12 mg under ity of 0.25 mg or 00:00: [place] 0.5 mg(2 00 weekly. Medical mg/1.5 mL) Start 0.25 Bra nch PnIj mg weekly for 4 weeks, then 0.5 mg thereafter glipiZIDE 2021-0 Yes [id number] 10mg Take 1 U nivers XL 10 mg 24 9-12 tablet by ity of hr tablet 00:00: mouth [place] 00 daily with Medical breakfast. Branch metformin 2021-0 Yes [id number] 750mg Take 1 [facility] ER 750 mg 9-12 tablet by ity o f 24 hr 00:00: mouth [place] tablet 00 daily with Medical breakfast. Branch semaglutide 2021-0 Yes [id number] .5mg inject 0.5 [facility] (OZEMPIC) 9-12 mg under ity of 0.25 mg or 00:00: the [place] 0.5 mg(2 00 weekly. Medical mg/1.5 mL) Start 0.25 Bra nch PnIj mg weekly for 4 weeks, then 0.5 mg thereafter glipiZIDE 2021-0 Yes [id number] 10mg Take 1 [facility] nivers XL 10 mg 24 9-12 tablet by ity of hr tablet 00:00: mouth [place] 00 daily with Medical breakfast. Branch metformin 2021-0 Yes [id number] 750mg Take 1 [facility] ER 750 mg 9-12 tablet by ity o f 24 hr 00:00: mouth [place] tablet 00 daily with Medical breakfast. Branch semaglutide 2021-0 Yes [id number] .5mg inject 0.5 [facility] (OZEMPIC) 9-12 mg under ity of 0.25 mg or 00:00: the [place] 0.5 mg(2 00 weekly. Medical mg/1.5 mL) Start 0.25 Bra nch PnIj mg weekly for 4 weeks, then 0.5 mg thereafter glipiZIDE 2021-0 Yes [id number] 10mg Take 1 U nivers XL 10 mg 24 9-12 tablet by ity of hr tablet 00:00: mouth [place] 00 daily with Medical breakfast. Branch metformin 2021-0 Yes [id number] 750mg Take 1 [facility] ER 750 mg 9-12 tablet by ity o f 24 hr 00:00: mouth [place] tablet 00 daily with Medical breakfast. Branch semaglutide 2021-0 Yes [id number] .5mg inject 0.5 [facility] (OZEMPIC) 9-12 mg under ity of 0.25 mg or 00:00: the [place] 0.5 mg(2 00 weekly. Medical mg/1.5 mL) Start 0.25 Bra nch PnIj mg weekly for 4 weeks, then 0.5 mg thereafter glipiZIDE 2021-0 Yes [id number] 10mg Take 1 U nivers XL 10 mg 24 9-12 tablet by ity of hr tablet 00:00: mouth [place] 00 daily with Medical breakfast. Branch metformin 2021-0 Yes [id number] 750mg Take 1 [facility] ER 750 mg 9-12 tablet by ity o f 24 hr 00:00: mouth [place] tablet 00 daily with Medical breakfast. Branch semaglutide 2021-0 Yes [id number] .5mg inject 0.5 [facility] (OZEMPIC) 9-12 mg under ity of 0.25 mg or 00:00: the [place] 0.5 mg(2 00 weekly. Medical mg/1.5 mL) Start 0.25 Bra nch PnIj mg weekly for 4 weeks, then 0.5 mg thereafter glipiZIDE 2021-0 Yes [id number] 10mg Take 1 U nivers XL 10 mg 24 9-12 tablet by ity of hr tablet 00:00: mouth [place] 00 daily with Medical breakfast. Branch metformin 2021-0 Yes [id number] 750mg Take 1 [facility] ER 750 mg 9-12 tablet by ity o f 24 hr 00:00: mouth [place] tablet 00 daily with Medical breakfast. Branch semaglutide 2021-0 Yes [id number] .5mg inject 0.5 [facility] (OZEMPIC) 9-12 mg under ity of 0.25 mg or 00:00: the [place] 0.5 mg(2 00 weekly. Medical mg/1.5 mL) Start 0.25 Bra nch PnIj mg weekly for 4 weeks, then 0.5 mg thereafter glipiZIDE 0 Yes [id number] 10mg Take 1 U nivers XL 10 mg 24 9-12 tablet by ity of hr tablet 00:00: mouth [place] 00 daily with Medical breakfast. [place] metformin 2021-0 Yes [id number] 750mg Take 1 [facility] ER 750 mg 9-12 tablet by ity o f 24 hr 00:00: mouth [place] tablet 00 daily with Medical breakfast. Branch semaglutide 2021-0 Yes [id number] .5mg inject 0.5 [facility] (OZEMPIC) 9-12 mg under ity of 0.25 mg or 00:00: the [place] 0.5 mg(2 00 weekly. Medical mg/1.5 mL) Start 0.25 Bra nch PnIj mg weekly for 4 weeks, then 0.5 mg thereafter semaglutide 2021-0 Yes [id number] .5mg inject 0.5 [facility] (OZEMPIC) 9-12 mg under ity of 0.25 mg or 00:00: the [place] 0.5 mg(2 00 weekly. Medical mg/1.5 mL) Start 0.25 Bra nch PnIj mg weekly for 4 weeks, then 0.5 mg thereafter semaglutide 2021-0 Yes [id number] .5mg inject 0.5 [facility] (OZEMPIC) 9-12 mg under ity of 0.25 mg or 00:00: the [place] 0.5 mg(2 00 weekly. Medical mg/1.5 mL) Start 0.25 Bra nch PnIj mg weekly for 4 weeks, then 0.5 mg thereafter semaglutide 2021-0 Yes [id number] .5mg inject 0.5 [facility] (OZEMPIC) 9-12 mg under ity of 0.25 mg or 00:00: the [place] 0.5 mg(2 00 weekly. Medical mg/1.5 mL) Start 0.25 Bra nch PnIj mg weekly for 4 weeks, then 0.5 mg thereafter semaglutide 2021-0 Yes [id number] .5mg inject 0.5 [facility] (OZEMPIC) 9-12 mg under ity of 0.25 mg or 00:00: [place] 0.5 mg(2 00 weekly. Medical mg/1.5 mL) Start 0.25 Bra nch PnIj mg weekly for 4 weeks, then 0.5 mg thereafter semaglutide 2022-0 Yes [id number] .[id number] inject 0.5 [facility] (OZEMPIC) 9-12 mg under ity of 0.25 mg or 00:00: [place] 0.5 mg(2 00 weekly. Medical mg/1.5 mL) Start 0.25 Bra nch PnIj mg weekly for 4 weeks, then 0.5 mg thereafter semaglutide 2022-0 Yes [id number] .[id number] inject 0.5 [facility] (OZEMPIC) 9-12 mg under ity of 0.25 mg or 00:00: [place] 0.5 mg(2 00 weekly. Medical mg/1.5 mL) Start 0.25 Bra nch PnIj mg weekly for 4 weeks, then 0.5 mg thereafter semaglutide 2022-0 Yes [id number] .5mg inject 0.5 [facility] (OZEMPIC) 9-12 mg under ity of 0.25 mg or 00:00: [place] 0.5 mg(2 00 weekly. Medical mg/1.5 mL) Start 0.25 Bra nch PnIj mg weekly for 4 weeks, then 0.5 mg thereafter semaglutide 2022-0 Yes [id number] .5mg inject 0.5 [facility] (OZEMPIC) 9-12 mg under ity of 0.25 mg or 00:00: [place] 0.5 mg(2 00 weekly. Medical mg/1.5 mL) Start 0.25 Bra nch PnIj mg weekly for 4 weeks, then 0.5 mg thereafter semaglutide 2022-0 Yes [id number] .5mg inject 0.5 [facility] (OZEMPIC) 9-12 mg under ity of 0.25 mg or 00:00: [place] 0.5 mg(2 00 weekly. Medical mg/1.5 mL) Start 0.25 Bra nch PnIj mg weekly for 4 weeks, then 0.5 mg thereafter semaglutide 2022-0 2023- No [id number] .5mg inject 0.5 [facility] (OZEMPIC) 9-12 06-16 mg under ity o f 0.25 mg or 00:00: 00:00 the skin [place] 0.5 mg(2 00 :00 weekly. Medical mg/1.5 mL) Start 0.25 Bra nch PnIj mg weekly for 4 weeks, then 0.5 mg thereafter semaglutide 2022- No [id number] .5mg inject 0.5 [facility] (OZEMPIC) 06-20 06-16 mg under ity o f 0.25 mg or 00:00: 00:00 the skin [place] 0.5 mg(2 00 :00 weekly. Medical mg/1.5 mL) Start 0.25 Bra nch PnIj mg weekly for 4 weeks, then 0.5 mg thereafter glipiZIDE 2021- No [id number] 10mg Take 1 [facility] XL 10 mg 24 06-2030 tablet by it y of hr tablet 00:00: 00:00 mouth [place] 00 :00 daily with Medical breakfast. Branch metformin 2021- No [id number] 750mg Take 1 [facility] ER 750 mg 06-2030 tablet by ity of 24 hr 00:00: 00:00 mouth [place] tablet 00 :00 daily with Medical breakfast. Branch glipiZIDE 2021- No [id number] 10mg Take 1 [facility] XL 10 mg 24 06-2030 tablet by it y of hr tablet 00:00: 00:00 mouth [place] 00 :00 daily with Medical breakfast. Branch metformin 2021- No [id number] 750mg Take 1 [facility] ER 750 mg 06-2030 tablet by ity of 24 hr 00:00: 00:00 mouth [place] tablet 00 :00 daily with Medical breakfast. Branch clobetasoL 2021-0 Yes [id number] Apply to Univers 0.05 % 8-05 area(s) 2 ity of ointment 00:00: (two) [place] 00 times Medical daily. Branch clobetasoL 2021-0 Yes [id number] Apply to Univers 0.05 % 8-05 area(s) 2 ity of ointment 00:00: (two) [place] 00 times Medical daily. Branch clobetasoL 2021-0 Yes [id number] Apply to Univers 0.05 % 8-05 area(s) 2 ity of ointment 00:00: (two) [place] 00 times Medical daily. Branch clobetasoL 2022-0 Yes [id number] Apply to Univers 0.05 % 8-05 area(s) 2 ity of ointment 00:00: (two) [place] 00 times Medical daily. Branch clobetasoL 2022-0 Yes [id number] Apply to Univers 0.05 % 8-05 area(s) 2 ity of ointment 00:00: (two) [place] 00 times Medical daily. Branch clobetasoL 2022-0 Yes [id number] Apply to [facility] 0.05 % 8-05 area(s) 2 ity of ointment 00:00: (two) [place] 00 times Medical daily. Branch clobetasoL 2022-0 Yes [id number] Apply to Univers 0.05 % 8-05 area(s) 2 ity of ointment 00:00: (two) [place] 00 times Medical daily. Branch clobetasoL 2022-0 Yes [id number] Apply to Univers 0.05 % 8-05 area(s) 2 ity of ointment 00:00: (two) [place] 00 times Medical daily. Branch clobetasoL 2022-0 Yes [id number] Apply to Univers 0.05 % 8-05 area(s) 2 ity of ointment 00:00: (two) [place] 00 times Medical daily. Branch clobetasoL 2022-0 Yes [id number] Apply to [facility] 0.05 % 8-05 area(s) 2 ity of ointment 00:00: (two) [place] 00 times Medical daily. Branch clobetasoL 2022-0 Yes [id number] Apply to Univers 0.05 % 8-05 area(s) 2 ity of ointment 00:00: (two) [place] 00 times Medical daily. Branch clobetasoL 2022-0 Yes [id number] Apply to Univers 0.05 % 8-05 area(s) 2 ity of ointment 00:00: (two) [place] 00 times Medical daily. Branch clobetasoL 2022-0 Yes [id number] Apply to Univers 0.05 % 8-05 area(s) 2 ity of ointment 00:00: (two) [place] 00 times Medical daily. Branch clobetasoL 2022-0 Yes [id number] Apply to Univers 0.05 % 8-05 area(s) 2 ity of ointment 00:00: (two) [place] 00 times Medical daily. Branch clobetasoL 2022-0 Yes [id number] Apply to Univers 0.05 % 8-05 area(s) 2 ity of ointment 00:00: (two) [place] 00 times Medical daily. Branch clobetasoL 2022-0 Yes [id number] Apply to [facility] 0.05 % 8-05 area(s) 2 ity of ointment 00:00: (two) [place] 00 times Medical daily. Branch clobetasoL 2022-0 Yes [id number] Apply to [facility] 0.05 % 8-05 area(s) 2 ity of ointment 00:00: (two) [place] 00 times Medical daily. Branch clobetasoL 2022-0 Yes [id number] Apply to Univers 0.05 % 8-05 area(s) 2 ity of ointment 00:00: (two) [place] 00 times Medical daily. Branch clobetasoL 2022-0 Yes [id number] Apply to Univers 0.05 % 8-05 area(s) 2 ity of ointment 00:00: (two) [place] 00 times Medical daily. Branch clobetasoL 2022-0 Yes [id number] Apply to [facility] 0.05 % 8-05 area(s) 2 ity of ointment 00:00: (two) [place] 00 times Medical daily. Branch clobetasoL 2022-0 Yes [id number] Apply to [facility] 0.05 % 8-05 area(s) 2 ity of ointment 00:00: (two) [place] 00 times Medical daily. Branch clobetasoL 2022-0 Yes [id number] Apply to Univers 0.05 % 8-05 area(s) 2 ity of ointment 00:00: (two) [place] 00 times Medical daily. Branch clobetasoL 2022-0 Yes [id number] Apply to Univers 0.05 % 8-05 area(s) 2 ity of ointment 00:00: (two) [place] 00 times Medical daily. Branch clobetasoL 2022-0 Yes [id number] Apply to Univers 0.05 % 8-05 area(s) 2 ity of ointment 00:00: (two) [place] 00 times Medical daily. Branch clobetasoL 2022-0 Yes [id number] Apply to Univers 0.05 % 8-05 area(s) 2 ity of ointment 00:00: (two) [place] 00 times Medical daily. Branch clobetasoL 2022-0 Yes [id number] Apply to Univers 0.05 % 8-05 area(s) 2 ity of ointment 00:00: (two) [place] 00 times Medical daily. Branch clobetasoL 2022-0 Yes [id number] Apply to [facility] 0.05 % 8-05 area(s) 2 ity of ointment 00:00: (two) [place] 00 times Medical daily. Branch clobetasoL 2022-0 Yes [id number] Apply to Univers 0.05 % 8-05 area(s) 2 ity of ointment 00:00: (two) [place] 00 times Medical daily. Branch clobetasoL 2022-0 Yes [id number] Apply to Univers 0.05 % 8-05 area(s) 2 ity of ointment 00:00: (two) [place] 00 times Medical daily. Branch clobetasoL 2022-0 Yes [id number] Apply to Univers 0.05 % 8-05 area(s) 2 ity of ointment 00:00: (two) [place] 00 times Medical daily. Branch clobetasoL 2022-0 Yes [id number] Apply to Univers 0.05 % 8-05 area(s) 2 ity of ointment 00:00: (two) [place] 00 times Medical daily. Branch lisinopriL 2022-0 Yes [id number] 2.5mg Take 1 [facility] 2.5 mg 6-27 tablet by ity of tablet 00:00: mouth 00 daily. Medical Branch lisinopriL 2022-0 Yes [id number] 2.5mg Take 1 [facility] 2.5 mg 6-27 tablet by ity of tablet 00:00: mouth daily. Medical Branch lisinopriL 2022-0 Yes [id number] 2.5mg Take 1 [facility] 2.5 mg 6-27 tablet by ity of tablet 00:00: mouth daily. Medical Branch lisinopriL 2022-0 Yes [id number] 2.5mg Take 1 [facility] 2.5 mg 6-27 tablet by ity of tablet 00:00: mouth [place] 00 daily. Medical Branch lisinopriL 2021-0 Yes [id number] 2.5mg Take 1 [facility] 2.5 mg 6-27 tablet by ity of tablet 00:00: mouth [place] 00 daily. Medical Branch lisinopriL 2021-0 2022- No [id number] 2.5mg Take 1 [facility] 2.5 mg 6-27 [...] 2021-0 Yes 2{capsu Take 2 U nivers rciardo, 5-29 le} capsules ity of Vitamin D3, [...] 00:00: MOUTH [place] NIGHTLY Medical Branch Cholecalcif 0 Yes 2{capsu Take 2 U nivers ricardo, 5-29 le} capsules ity of Vitamin D3, 00:00: by mouth [place] 50 mcg 00 daily. Medical (2,000 Branch unit) capsule guanFACINE 2021-0 Yes TAKE 1 [facility]ive rs ER 3 mg 5-29 TABLET BY ity of tablet 00:00: MOUTH [place] NIGHTLY Medical Branch Cholecalcif 0 Yes 2{capsu [...] 00 NIGHTLY Medical Branch ROSUVASTATI 2021-0 Yes [id number] 20mg TAKE 1 [facility] N 20 mg 5-26 TABLET BY ity of tablet 00:00: MOUTH AT [place] 00 BEDTIME. Medical MUST BE Branch SEEN FOR FURTHER REFILLS ROSUVASTATI 2021-0 Yes [id number] 20mg TAKE 1 [facility] N 20 mg 5-26 TABLET BY ity of tablet 00:00: MOUTH AT [place] 00 BEDTIME. Medical MUST BE Branch SEEN FOR FURTHER REFILLS ROSUVASTATI 0 2021- No [id number] 20mg TAKE 1 [facility] N 20 mg 5-26 - TABLET BY ity of tablet 00:00: 00:00 MOUTH AT [place] 00 :00 BEDTIME. Medical MUST BE Branch SEEN FOR FURTHER REFILLS ROSUVASTATI 2021- No [id number] 20mg TAKE 1 [facility] N 20 mg [...] tablet 5-02 TABLET BY ity of 00:00: EVERY 12 Medical HOURS Branch NEEDED OXcarbazepi [...] 4-25 mg by ity of tablet 00:00: [facility] (two) Medical times Branch daily. OXcarbazepi 2022-0 [...] 00:00: mouth (two) Medical times Branch daily. ARIPiprazol 2022-0 Yes 5mg Take 5 mg U nivers e 5 mg 4-12 by mouth ity of tablet 00:00: at [place] [address] bedtime. Medical Branch ARIPiprazol 2022-0 Yes 5mg Take 5 mg U nivers e 5 mg 4-12 by mouth ity of tablet 00:00: at [place] [address] bedtime. Medical Branch ARIPiprazol 2022-0 Yes 5mg Take 5 mg U nivers e 5 mg 4-12 by mouth ity of tablet 00:00: at [place] [address] bedtime. Medical Branch ARIPiprazol 2022-0 Yes 5mg Take 5 mg U nivers e 5 mg 4-12 by mouth ity of tablet 00:00: at [place] [address] bedtime. Medical Branch ARIPiprazol 2022-0 Yes 5mg Take 5 mg U nivers e 5 mg 4-12 by mouth ity of tablet 00:00: at [place] [address] bedtime. Medical Branch ARIPiprazol 2022-0 Yes 5mg Take 5 mg U nivers e 5 mg 4-12 by mouth ity of tablet 00:00: at [place] [address] bedtime. Medical Branch ARIPiprazol 2022-0 Yes 5mg Take 5 mg U nivers e 5 mg 4-12 by mouth ity of tablet 00:00: at [place] [address] bedtime. Medical Branch ARIPiprazol 2-0 Yes 5mg Take 5 mg U nivers e 5 mg 4-12 by mouth ity of tablet 00:00: at [place] [address] bedtime. Medical Branch ARIPiprazol 2-0 Yes 5mg Take 5 mg U nivers e 5 mg 4-12 by mouth ity of tablet 00:00: at [place] [address] bedtime. Medical Branch ARIPiprazol 2022-0 Yes 5mg Take 5 mg U nivers e 5 mg 4-12 by mouth ity of tablet 00:00: at [place] [address] bedtime. Medical Branch ARIPiprazol 2022-0 Yes 5mg Take 5 mg U nivers e 5 mg 4-12 by mouth ity of tablet 00:00: at [place] [address] bedtime. Medical Branch ARIPiprazol 2022-0 Yes 5mg Take 5 mg U nivers e 5 mg 4-12 by mouth ity of tablet 00:00: at [place] [address] bedtime. Medical Branch ARIPiprazol 2022-0 Yes 5mg Take 5 mg U nivers e 5 mg 4-12 by mouth ity of tablet 00:00: at [place] [address] bedtime. Medical Branch ARIPiprazol 2022-0 Yes 5mg Take 5 mg U nivers e 5 mg 4-12 by mouth ity of tablet 00:00: at [place] [address] bedtime. Medical Branch ARIPiprazol 2022-0 Yes 5mg Take 5 mg U nivers e 5 mg 4-12 by mouth ity of tablet 00:00: at [place] [address] bedtime. Medical Branch ARIPiprazol 2022-0 Yes 5mg Take 5 mg U nivers e 5 mg 4-12 by mouth ity of tablet 00:00: at [place] [address] bedtime. [facility] ARIPiprazol 2022-0 Yes 5mg Take 5 mg U nivers e 5 mg 4-12 by mouth ity of tablet 00:00: at [place] [address] bedtime. [facility] ARIPiprazol 2022-0 Yes 5mg Take 5 mg U nivers e 5 mg 4-12 by mouth ity of tablet 00:00: at [place] [address] bedtime. [facility] ARIPiprazol 2022-0 Yes 5mg Take 5 mg U nivers e 5 mg 4-12 by mouth ity of tablet 00:00: at [place] [address] bedtime. [facility] ARIPiprazol 2022-0 Yes 5mg Take 5 mg U nivers e 5 mg 4-12 by mouth ity of tablet 00:00: at [place] [address] bedtime. [facility] ARIPiprazol 2022-0 Yes 5mg Take 5 mg U nivers e 5 mg 4-12 by mouth ity of tablet 00:00: at [place] [address] bedtime. [facility] ARIPiprazol 2022-0 Yes 5mg Take 5 mg U nivers e 5 mg 4-12 by mouth ity of tablet 00:00: at [place] [address] bedtime. [facility] ARIPiprazol 2022-0 Yes 5mg Take 5 mg U nivers e 5 mg 4-12 by mouth ity of tablet 00:00: at [place] [address] bedtime. [facility] ARIPiprazol 2022-0 Yes 5mg Take 5 mg U nivers e 5 mg 4-12 by mouth ity of tablet 00:00: at [place] [address] bedtime. [facility] ARIPiprazol 2022-0 Yes 5mg Take 5 mg U nivers e 5 mg 4-12 by mouth ity of tablet 00:00: at [place] [address] bedtime. [facility] ARIPiprazol 2022-0 Yes 5mg Take 5 mg U nivers e 5 mg 4-12 by mouth ity of tablet 00:00: at [place] [address] bedtime. [facility] ARIPiprazol 2-0 Yes 5mg Take 5 mg U nivers e 5 mg 4-12 by mouth ity of tablet 00:00: at [place] [address] bedtime. [facility] ARIPiprazol 2-0 Yes 5mg Take 5 mg U nivers e 5 mg 4-12 by mouth ity of tablet 00:00: at [place] [address] bedtime. [facility] ARIPiprazol 2-0 Yes 5mg Take 5 mg U nivers e 5 mg 4-12 by mouth ity of tablet 00:00: at [place] [address] bedtime. [facility] ARIPiprazol 2-0 Yes 5mg Take 5 mg U nivers e 5 mg 4-12 by mouth ity of tablet 00:00: at [place] [address] bedtime. [facility] ARIPiprazol 2-0 Yes 5mg Take 5 mg U nivers e 5 mg 4-12 by mouth ity of tablet 00:00: at [place] [address] bedtime. [facility] ivermectin 2-0 Yes [id number] 13.5mg Take 4.5 [facility] 3 mg tablet 1-12 tablets by it y of 00:00: mouth [place] weekly. [facility] ivermectin 2-0 Yes [id number] 13.5mg Take 4.5 [facility] 3 mg tablet 1-12 tablets by it y of 00:00: mouth [place] weekly. [facility] ivermectin 2-0 Yes [id number] 13.5mg Take 4.5 [facility] 3 mg tablet 1-12 tablets by it y of 00:00: mouth [place] weekly. [facility] ivermectin 2-0 Yes [id number] 13.5mg Take 4.5 [facility] 3 mg tablet 1-12 tablets by it y of 00:00: mouth [place] weekly. [facility] ivermectin 2022-0 Yes [id number] 13.5mg Take 4.5 [facility] 3 mg tablet 1-12 tablets by it y of 00:00: mouth [place] weekly. [facility] ivermectin 2-0 Yes [id number] 13.5mg Take 4.5 [facility] 3 mg tablet 1-12 tablets by it y of 00:00: mouth [place] 00 weekly. [facility] ivermectin 2-0 Yes [id number] 13.5mg Take 4.5 [facility] 3 mg tablet 1-12 tablets by it y of 00:00: mouth [place] 00 weekly. [facility] ivermectin 2-0 Yes [id number] 13.5mg Take 4.5 [facility] 3 mg tablet 1-12 tablets by it y of 00:00: mouth [place] 00 weekly. [facility] ivermectin 2-0 Yes [id number] 13.5mg Take 4.5 [facility] 3 mg tablet 1-12 tablets by it y of 00:00: mouth [place] 00 weekly. [facility] ivermectin 2021-0 Yes [id number] 13.5mg Take 4.5 [facility] 3 mg tablet 1-12 tablets by it y of 00:00: mouth [place] 00 weekly. [facility] ivermectin 2021-0 Yes [id number] 13.5mg Take 4.5 [facility] 3 mg tablet 1-12 tablets by it y of 00:00: mouth [place] 00 weekly. [facility] ivermectin 2021-0 Yes [id number] 13.5mg Take 4.5 [facility] 3 mg tablet 1-12 tablets by it y of 00:00: mouth [place] 00 weekly. [facility] ivermectin 2021-0 Yes [id number] 13.5mg Take 4.5 [facility] 3 mg tablet 1-12 tablets by it y of 00:00: mouth [place] 00 weekly. [facility] ivermectin 2-0 Yes [id number] 13.5mg Take 4.5 [facility] 3 mg tablet 1-12 tablets by it y of 00:00: mouth [place] 00 weekly. [facility] ivermectin 2-0 Yes [id number] 13.5mg Take 4.5 [facility] 3 mg tablet 1-12 tablets by it y of 00:00: mouth [place] 00 weekly. [facility] ivermectin 2-0 Yes [id number] 13.5mg Take 4.5 [facility] 3 mg tablet 1-12 tablets by it y of 00:00: mouth [place] 00 weekly. [facility] ivermectin 2-0 Yes [id number] 13.5mg Take 4.5 [facility] 3 mg tablet 1-12 tablets by it y of 00:00: mouth [place] 00 weekly. [facility] ivermectin 2-0 Yes [id number] 13.5mg Take 4.5 [facility] 3 mg tablet 1-12 tablets by it y of 00:00: mouth [place] 00 weekly. [facility] ivermectin 2-0 Yes [id number] 13.5mg Take 4.5 [facility] 3 mg tablet 1-12 tablets by it y of 00:00: mouth [place] 00 weekly. [facility] ivermectin 2-0 Yes [id number] 13.5mg Take 4.5 [facility] 3 mg tablet 1-12 tablets by it y of 00:00: mouth [place] 00 weekly. [facility] ivermectin 2-0 Yes [id number] 13.5mg Take 4.5 [facility] 3 mg tablet 1-12 tablets by it y of 00:00: mouth [place] 00 weekly. [facility] ivermectin 2021-0 Yes [id number] 13.5mg Take 4.5 [facility] 3 mg tablet 1-12 tablets by it y of 00:00: mouth [place] 00 weekly. [facility] ivermectin 2-0 Yes [id number] 13.5mg Take 4.5 [facility] 3 mg tablet 1-12 tablets by it y of 00:00: mouth [place] 00 weekly. [facility] ivermectin 2-0 Yes [id number] 13.5mg Take 4.5 [facility] 3 mg tablet 1-12 tablets by it y of 00:00: mouth [place] 00 weekly. [facility] ivermectin 2-0 Yes [id number] 13.5mg Take 4.5 [facility] 3 mg tablet 1-12 tablets by it y of 00:00: mouth [place] 00 weekly. [facility] ivermectin 2-0 Yes [id number] 13.5mg Take 4.5 [facility] 3 mg tablet 1-12 tablets by it y of 00:00: mouth [place] 00 weekly. [facility] ivermectin 2-0 Yes [id number] 13.5mg Take 4.5 [facility] 3 mg tablet 1-12 tablets by it y of 00:00: mouth [place] 00 weekly. [facility] ivermectin 2-0 Yes [id number] 13.5mg Take 4.5 [facility] 3 mg tablet 1-12 tablets by it y of 00:00: mouth [place] 00 weekly. [facility] ivermectin 2-0 Yes [id number] 13.5mg Take 4.5 [facility] 3 mg tablet 1-12 tablets by it y of 00:00: mouth [place] 00 weekly. [facility] ivermectin 2-0 Yes [id number] 13.5mg Take 4.5 [facility] 3 mg tablet 1-12 tablets by it y of 00:00: mouth [place] weekly. [facility] ivermectin 0 Yes [id number] 13.5mg Take 4.5 [facility] 3 mg tablet 1-12 tablets by it y of 00:00: mouth weekly. [facility] trazodone 2020-10 Yes Take [...] by mouth ity of tablet 13:30: daily. [facility] trazodone 2020-10 Yes Take by Unive rs HCl 11-06 mouth. ity of (TRAZODONE 13:30: [place] ORAL) [facility] citalopram 2020-10 Yes 10mg Take 10 mg U nivers 10 mg 1-29 by mouth ity of tablet 13:30: daily. [facility] trazodone 2020-10 Yes Take by Unive rs HCl 11-06 mouth. ity of (TRAZODONE 13:30: [place] ORAL) [facility] citalopram 2020-10 Yes 10mg Take 10 mg U nivers 10 mg 1-29 by mouth ity of tablet 13:30: daily. [facility] trazodone 2020-10 Yes Take by Unive rs HCl 11-06 mouth. ity of (TRAZODONE 13:30: [place] ORAL) [facility] citalopram 2020-10 Yes 10mg Take 10 mg U nivers 10 mg 1-29 by mouth ity of tablet 13:30: daily. [facility] trazodone 2020-10 Yes Take by Unive rs HCl 11-06 mouth. ity of (TRAZODONE 13:30: [place] ORAL) [facility] citalopram 2020-10 Yes 10mg Take 10 mg U nivers 10 mg 1-29 by mouth ity of tablet 13:30: daily. [facility] trazodone 2020-10 Yes Take by Unive rs HCl 11-06 mouth. ity of (TRAZODONE 13:30: [place] ORAL) [facility] citalopram 2020-10 Yes 10mg Take 10 mg U nivers 10 mg 1-29 by mouth ity of tablet 13:30: daily. [facility] trazodone 2020-10 Yes Take by Unive rs HCl 11-06 mouth. ity of (TRAZODONE 13:30: [place] ORAL) [facility] citalopram 2020-10 Yes 10mg Take 10 mg U nivers 10 mg 1-29 by mouth ity of tablet 13:30: daily. [facility] trazodone 2021-1 Yes Take by Unive rs HCl 1-29 [...] mouth. ity of (TRAZODONE 13:30: [place] ORAL) [facility] citalopram 2020-10 Yes 10mg Take 10 mg U nivers 10 mg -29 by mouth ity of tablet 13:30: daily. [facility] trazodone 2020-10 Yes Take by Unive rs HCl 11-06 mouth. ity of (TRAZODONE 13:30: [place] ORAL) [facility] citalopram 2020-10 Yes 10mg Take [...] by mouth ity of tablet 13:30: daily. [facility] trazodone 2020-10 Yes Take by Unive rs HCl 29 mouth. ity of (TRAZODONE 13:30: [place] ORAL) [facility] citalopram 2020-10 Yes 10mg Take 10 mg U nivers 10 mg 1-29 by mouth ity of tablet 13:30: daily. [facility] trazodone 2020-10 Yes Take by Unive rs HCl 29 mouth. ity of (TRAZODONE 13:30: [place] ORAL) [facility] citalopram 2020-10 Yes 10mg Take 10 mg U nivers 10 mg 1-29 by mouth ity of tablet 13:30: daily. [facility] trazodone 2020-10 Yes Take by Unive rs HCl 11-06 mouth. ity of (TRAZODONE 13:30: [place] ORAL) [facility] citalopram 2020-10 Yes 10mg Take 10 mg U nivers 10 mg 1-29 by mouth ity of tablet 13:30: daily. [facility] trazodone 2020-10 Yes Take by Unive rs HCl 29 mouth. ity of (TRAZODONE 13:30: [place] ORAL) [facility] citalopram 2020-10 Yes 10mg Take 10 mg U nivers 10 mg 1-29 by mouth ity of tablet 13:30: daily. [facility] trazodone 2020-10 Yes Take by Unive rs HCl 11-06 mouth. ity of (TRAZODONE 13:30: [place] ORAL) [facility] citalopram 2020-10 Yes 10mg Take 10 mg U nivers 10 mg 1-29 by mouth ity of tablet 13:30: daily. [facility] trazodone 2020-10 Yes Take by Unive rs HCl 29 mouth. ity of (TRAZODONE 13:30: [place] ORAL) [facility] citalopram 2020-10 Yes 10mg Take 10 mg U nivers 10 mg 1-29 by mouth ity of tablet 13:30: daily. [facility] trazodone 2020-10 Yes Take by Unive rs HCl -29 mouth. ity of (TRAZODONE 13:30: [place] ORAL) [facility] citalopram 2020-10 Yes 10mg Take 10 mg U nivers 10 mg 1-29 by mouth ity of tablet 13:30: daily. [facility] trazodone 2020-10 Yes Take by Unive rs HCl 11-06 mouth. ity of (TRAZODONE 13:30: [place] ORAL) [facility] citalopram 2020-10 Yes 10mg Take 10 mg U nivers 10 mg 1-29 by mouth ity of tablet 13:30: daily. [facility] trazodone 2020-10 Yes Take by Unive rs HCl 11-06 mouth. ity of (TRAZODONE 13:30: [place] ORAL) [facility] citalopram 2020-10 Yes 10mg Take 10 mg U nivers 10 mg 1-29 by mouth ity of tablet 13:30: daily. [facility] trazodone 2020-10 Yes Take by Unive rs HCl 11-06 mouth. ity of (TRAZODONE 13:30: [place] ORAL) [facility] citalopram 2020-10 Yes 10mg Take 10 mg U nivers 10 mg 1-29 by mouth ity of tablet 13:30: daily. [facility] trazodone 2020-10 Yes Take by Unive rs HCl 11-06 mouth. ity of (TRAZODONE 13:30: [place] ORAL) [facility] citalopram 2020-10 Yes 10mg Take 10 mg U nivers 10 mg 1-29 by mouth ity of tablet 13:30: daily. [facility] trazodone 2020-10 Yes Take by Unive rs HCl 29 mouth. ity of (TRAZODONE 13:30: [place] ORAL) [facility] citalopram 2020-10 Yes 10mg Take 10 mg U nivers 10 mg 1-29 by mouth ity of tablet 13:30: daily. [facility] cetirizine Yes [id number] 10mg Take 1 Tab Univers (ZYRTEC) 10 03 by mouth ity of mg tablet 00:00: daily. [facility] cetirizine Yes [id number] 10mg Take 1 Tab [facility] (ZYRTEC) 10 1-03 by mouth ity of mg tablet 00:00: daily. [facility] cetirizine Yes [id number] 10mg Take 1 Tab [facility] (ZYRTEC) 10 1-03 by mouth ity of mg tablet 00:00: daily. [facility] cetirizine Yes [id number] 10mg Take 1 Tab [facility] (ZYRTEC) 10 1-03 by mouth ity of mg tablet 00:00: daily. [facility] cetirizine Yes [id number] 10mg Take 1 Tab [facility] (ZYRTEC) 10 1-03 by mouth ity of mg tablet 00:00: daily. [place] [facility] cetirizine Yes [id number] 10mg Take 1 Tab [facility] (ZYRTEC) 10 1-03 by mouth ity of mg tablet 00:00: daily. [place] [facility] cetirizine Yes [id number] 10mg Take 1 Tab Univers (ZYRTEC) 10 1-03 by mouth ity of mg tablet 00:00: daily. [facility] cetirizine Yes [id number] 10mg Take 1 Tab [facility] (ZYRTEC) 10 1-03 by mouth ity of mg tablet 00:00: daily. [place] [facility] cetirizine Yes [id number] 10mg Take 1 Tab Univers (ZYRTEC) 10 1-03 by mouth ity of mg tablet 00:00: daily. [facility] cetirizine Yes [id number] 10mg Take 1 Tab [facility] (ZYRTEC) 10 1-03 by mouth ity of mg tablet 00:00: daily. [place] [facility] cetirizine Yes [id number] 10mg Take 1 Tab [facility] (ZYRTEC) 10 1-03 by mouth ity of mg tablet 00:00: daily. [place] [facility] cetirizine Yes [id number] 10mg Take 1 Tab [facility] (ZYRTEC) 10 1-03 by mouth ity of mg tablet 00:00: daily. [place] [facility] cetirizine Yes [id number] 10mg Take 1 Tab [facility] (ZYRTEC) 10 1-03 by mouth ity of mg tablet 00:00: daily. [facility] cetirizine Yes [id number] 10mg Take 1 Tab [facility] (ZYRTEC) 10 1-03 by mouth ity of mg tablet 00:00: daily. [facility] cetirizine Yes [id number] 10mg Take 1 Tab [facility] (ZYRTEC) 10 1-03 by mouth ity of mg tablet 00:00: daily. [facility] cetirizine Yes [id number] 10mg Take 1 Tab [facility] (ZYRTEC) 10 1-03 by mouth ity of mg tablet 00:00: daily. [place] [facility] cetirizine Yes [id number] 10mg Take 1 Tab [facility] (ZYRTEC) 10 1-03 by mouth ity of mg tablet 00:00: daily. [place] [facility] cetirizine Yes [id number] 10mg Take 1 Tab [facility] (ZYRTEC) 10 1-03 by mouth ity of mg tablet 00:00: daily. [facility] cetirizine Yes [id number] 10mg Take 1 Tab [facility] (ZYRTEC) 10 1-03 by mouth ity of mg tablet 00:00: daily. [place] [facility] cetirizine Yes [id number] 10mg Take 1 Tab [facility] (ZYRTEC) 10 1-03 by mouth ity of mg tablet 00:00: daily. [place] [facility] cetirizine Yes [id number] 10mg Take 1 Tab [facility] (ZYRTEC) 10 1-03 by mouth ity of mg tablet 00:00: daily. [place] [facility] cetirizine Yes [id number] 10mg Take 1 Tab [facility] (ZYRTEC) 10 1-03 by mouth ity of mg tablet 00:00: daily. [place] [facility] cetirizine Yes [id number] 10mg Take 1 Tab [facility] (ZYRTEC) 10 1-03 by mouth ity of mg tablet 00:00: daily. [place] [facility] cetirizine Yes [id number] 10mg Take 1 Tab [facility] (ZYRTEC) 10 1-03 by mouth ity of mg tablet 00:00: daily. [place] [facility] cetirizine Yes [id number] 10mg Take 1 Tab [facility] (ZYRTEC) 10 1-03 by mouth ity of mg tablet 00:00: daily. [place] [facility] cetirizine Yes [id number] 10mg Take 1 Tab [facility] (ZYRTEC) 10 1-03 by mouth ity of mg tablet 00:00: daily. [place] [facility] cetirizine Yes [id number] 10mg Take 1 Tab [facility] (ZYRTEC) 10 1-03 by mouth ity of mg tablet 00:00: daily. [place] [facility] cetirizine Yes [id number] 10mg Take 1 Tab [facility] (ZYRTEC) 10 1-03 by mouth ity of mg tablet 00:00: daily. [place] [facility] cetirizine Yes [id number] 10mg Take 1 Tab [facility] (ZYRTEC) 10 1-03 by mouth ity of mg tablet 00:00: daily. [place] [facility] cetirizine Yes [id number] 10mg Take 1 Tab [facility] (ZYRTEC) 10 1-03 by mouth ity of mg tablet 00:00: daily. [place] [facility] cetirizine Yes [id number] 10mg Take 1 Tab [facility] (ZYRTEC) 10 1-03 by mouth ity of mg tablet 00:00: daily. [address] Immunizations Ordered Immunization Filled Immunization Date Status Commen ts Source Name Name SARS-COV-2 COVID-19 2021-09-06 Completed Unive rsity of PFIZER VACCINE 00:00:00 [facility] SARS-COV-2 COVID-19 2021-09-06 Completed Unive rsity of PFIZER VACCINE 00:00:00 [facility] SARS-COV-2 COVID-19 2021-09-06 Completed Unive rsity of PFIZER VACCINE 00:00:00 [facility] SARS-COV-2 COVID-19 2021-09-06 Completed Unive rsity of PFIZER VACCINE 00:00:00 [facility] SARS-COV-2 COVID-19 2021-09-06 Completed Unive rsity of PFIZER VACCINE 00:00:00 [place] [facility] SARS-COV-2 COVID-19 2021-09-06 Completed Unive rsity of PFIZER VACCINE 00:00:00 [facility] SARS-COV-2 COVID-19 2021-09-06 Completed Unive rsity of PFIZER VACCINE 00:00:00 [facility] SARS-COV-2 COVID-19 2021-09-06 Completed Unive rsity of PFIZER VACCINE 00:00:00 [facility] SARS-COV-2 COVID-19 2021-09-06 Completed Unive rsity of PFIZER VACCINE 00:00:00 [facility] SARS-COV-2 COVID-19 2021-09-06 Completed Unive rsity of PFIZER VACCINE 00:00:00 [facility] SARS-COV-2 COVID-19 2021-09-06 Completed Unive rsity of PFIZER VACCINE 00:00:00 [facility] SARS-COV-2 COVID-19 2021-09-06 Completed Unive rsity of PFIZER VACCINE 00:00:00 [facility] SARS-COV-2 COVID-19 2021-09-06 Completed Unive rsity of PFIZER VACCINE 00:00:00 [facility] SARS-COV-2 COVID-19 2021-09-06 Completed Unive rsity of PFIZER VACCINE 00:00:00 [facility] SARS-COV-2 COVID-19 2021-09-06 Completed Unive rsity of PFIZER VACCINE 00:00:00 [facility] SARS-COV-2 COVID-19 2021-09-06 Completed Unive rsity of PFIZER VACCINE 00:00:00 [facility] SARS-COV-2 COVID-19 2021-09-06 Completed Unive rsity of PFIZER VACCINE 00:00:00 [facility] SARS-COV-2 COVID-19 2021-09-06 Completed Unive rsity of PFIZER VACCINE 00:00:00 [facility] SARS-COV-2 COVID-19 2021-09-06 Completed Unive rsity of PFIZER VACCINE 00:00:00 [facility] SARS-COV-2 COVID-19 2021-09-06 Completed Unive rsity of PFIZER VACCINE 00:00:00 [facility] SARS-COV-2 COVID-19 2021-09-06 Completed Unive rsity of PFIZER VACCINE 00:00:00 [facility] SARS-COV-2 COVID-19 2021-09-06 Completed Unive rsity of PFIZER VACCINE 00:00:00 [facility] SARS-COV-2 COVID-19 2021-09-06 Completed Unive rsity of PFIZER VACCINE 00:00:00 [facility] SARS-COV-2 COVID-19 2021-09-06 Completed Unive rsity of PFIZER VACCINE 00:00:00 [facility] SARS-COV-2 COVID-19 2021-09-06 Completed Unive rsity of PFIZER VACCINE 00:00:00 [facility] SARS-COV-2 COVID-19 2021-09-06 Completed Unive rsity of PFIZER VACCINE 00:00:00 [facility] SARS-COV-2 COVID-19 2021-09-06 Completed Unive rsity of PFIZER VACCINE 00:00:00 [facility] SARS-COV-2 COVID-19 2021-09-06 Completed Unive rsity of PFIZER VACCINE 00:00:00 [facility] SARS-COV-2 COVID-19 2021-09-06 Completed Unive rsity of PFIZER VACCINE 00:00:00 [facility] SARS-COV-2 COVID-19 2021-09-06 Completed Unive rsity of PFIZER VACCINE 00:00:00 [facility] SARS-COV-2 COVID-19 2021-09-06 Completed Unive rsity of PFIZER VACCINE 00:00:00 [facility] SARS-COV-2 COVID-19 2021-02-06 Completed Unive rsity of PFIZER VACCINE 00:00:00 [facility] SARS-COV-2 COVID-19 2021-02-06 Completed Unive rsity of PFIZER VACCINE 00:00:00 [facility] SARS-COV-2 COVID-19 2021-02-06 Completed Unive rsity of PFIZER VACCINE 00:00:00 [facility] SARS-COV-2 COVID-19 2021-02-06 Completed Unive rsity of PFIZER VACCINE 00:00:00 [facility] SARS-COV-2 COVID-19 2021-02-06 Completed Unive rsity of PFIZER VACCINE 00:00:00 [facility] SARS-COV-2 COVID-19 2021-02-06 Completed Unive rsity of PFIZER VACCINE 00:00:00 [facility] SARS-COV-2 COVID-19 2021-02-06 Completed Unive rsity of PFIZER VACCINE 00:00:00 [facility] SARS-COV-2 COVID-19 2021-02-06 Completed Unive rsity of PFIZER VACCINE 00:00:00 [facility] SARS-COV-2 COVID-19 2021-02-06 Completed Unive rsity of PFIZER VACCINE 00:00:00 [facility] SARS-COV-2 COVID-19 2021-02-06 Completed Unive rsity of PFIZER VACCINE 00:00:00 [facility] SARS-COV-2 COVID-19 2021-02-06 Completed Unive rsity of PFIZER VACCINE 00:00:00 [facility] SARS-COV-2 COVID-19 2021-02-06 Completed Unive rsity of PFIZER VACCINE 00:00:00 [facility] SARS-COV-2 COVID-19 2021-02-06 Completed Unive rsity of PFIZER VACCINE 00:00:00 [facility] SARS-COV-2 COVID-19 2021-02-06 Completed Unive rsity of PFIZER VACCINE 00:00:00 [facility] SARS-COV-2 COVID-19 2021-02-06 Completed Unive rsity of PFIZER VACCINE 00:00:00 [facility] SARS-COV-2 COVID-19 2021-02-06 Completed Unive rsity of PFIZER VACCINE 00:00:00 [facility] SARS-COV-2 COVID-19 2021-02-06 Completed Unive rsity of PFIZER VACCINE 00:00:00 [facility] SARS-COV-2 COVID-19 2021-02-06 Completed Unive rsity of PFIZER VACCINE 00:00:00 [facility] SARS-COV-2 COVID-19 2021-02-06 Completed Unive rsity of PFIZER VACCINE 00:00:00 [facility] SARS-COV-2 COVID-19 2021-02-06 Completed Unive rsity of PFIZER VACCINE 00:00:00 [facility] SARS-COV-2 COVID-19 2021-02-06 Completed Unive rsity of PFIZER VACCINE 00:00:00 [place] [facility] SARS-COV-2 COVID-19 2021-02-06 Completed Unive rsity of PFIZER VACCINE 00:00:00 [facility] SARS-COV-2 COVID-19 2021-02-06 Completed Unive rsity of PFIZER VACCINE 00:00:00 [facility] SARS-COV-2 COVID-19 2021-02-06 Completed Unive rsity of PFIZER VACCINE 00:00:00 [facility] SARS-COV-2 COVID-19 2021-02-06 Completed Unive rsity of PFIZER VACCINE 00:00:00 [facility] SARS-COV-2 COVID-19 2021-02-06 Completed Unive rsity of PFIZER VACCINE 00:00:00 [facility] SARS-COV-2 COVID-19 2021-02-06 Completed Unive rsity of PFIZER VACCINE 00:00:00 [facility] SARS-COV-2 COVID-19 2021-02-06 Completed Unive rsity of PFIZER VACCINE 00:00:00 [facility] SARS-COV-2 COVID-19 2021-02-06 Completed Unive rsity of PFIZER VACCINE 00:00:00 [facility] SARS-COV-2 COVID-19 2021-02-06 Completed Unive rsity of PFIZER VACCINE 00:00:00 [facility] SARS-COV-2 COVID-19 2021-02-06 Completed Unive rsity of PFIZER VACCINE 00:00:00 [facility] SARS-COV-2 COVID-19 2021-01-16 Completed Unive rsity of PFIZER VACCINE 00:00:00 [facility] SARS-COV-2 COVID-19 2021-01-16 Completed Unive rsity of PFIZER VACCINE 00:00:00 [facility] SARS-COV-2 COVID-19 2021-01-16 Completed Unive rsity of PFIZER VACCINE 00:00:00 [facility] SARS-COV-2 COVID-19 2021-01-16 Completed Unive rsity of PFIZER VACCINE 00:00:00 [facility] SARS-COV-2 COVID-19 2021-01-16 Completed [facility] of PFIZER VACCINE 00:00:00 [facility] SARS-COV-2 COVID-19 2021-01-16 Completed [facility] of PFIZER VACCINE 00:00:00 [facility] SARS-COV-2 COVID-19 2021-01-16 Completed [facility] of PFIZER VACCINE 00:00:00 [facility] SARS-COV-2 COVID-19 2021-01-16 Completed [facility] of PFIZER VACCINE 00:00:00 [facility] SARS-COV-2 COVID-19 2021-01-16 Completed [facility] of PFIZER VACCINE 00:00:00 [facility] SARS-COV-2 COVID-19 2021-01-16 Completed [facility] of PFIZER VACCINE 00:00:00 [facility] SARS-COV-2 COVID-19 2021-01-16 Completed [facility] of PFIZER VACCINE 00:00:00 [facility] SARS-COV-2 COVID-19 2021-01-16 Completed [facility] of PFIZER VACCINE 00:00:00 [facility] SARS-COV-2 COVID-19 2021-01-16 Completed [facility] of PFIZER VACCINE 00:00:00 [facility] SARS-COV-2 COVID-19 2021-01-16 Completed [facility] of PFIZER VACCINE 00:00:00 [facility] SARS-COV-2 COVID-19 2021-01-16 Completed [facility] of PFIZER VACCINE 00:00:00 [facility] SARS-COV-2 COVID-19 2021-01-16 Completed [facility] of PFIZER VACCINE 00:00:00 [facility] SARS-COV-2 COVID-19 2021-01-16 Completed [facility] of PFIZER VACCINE 00:00:00 [facility] SARS-COV-2 COVID-19 2021-01-16 Completed [facility] of PFIZER VACCINE 00:00:00 [facility] SARS-COV-2 COVID-19 2021-01-16 Completed [facility] of PFIZER VACCINE 00:00:00 [facility] SARS-COV-2 COVID-19 2021-01-16 Completed [facility] of PFIZER VACCINE 00:00:00 [facility] SARS-COV-2 COVID-19 2021-01-16 Completed [facility] of PFIZER VACCINE 00:00:00 [facility] SARS-COV-2 COVID-19 2021-01-16 Completed [facility] of PFIZER VACCINE 00:00:00 [facility] SARS-COV-2 COVID-19 2021-01-16 Completed [facility] of PFIZER VACCINE 00:00:00 [facility] SARS-COV-2 COVID-19 2021-01-16 Completed [facility] of PFIZER VACCINE 00:00:00 [facility] SARS-COV-2 COVID-19 2021-01-16 Completed [facility] of PFIZER VACCINE 00:00:00 [facility] SARS-COV-2 COVID-19 2021-01-16 Completed [facility] of PFIZER VACCINE 00:00:00 [facility] SARS-COV-2 COVID-19 2021-01-16 Completed [facility] of PFIZER VACCINE 00:00:00 [facility] SARS-COV-2 COVID-19 2021-01-16 Completed [facility] of PFIZER VACCINE 00:00:00 [facility] SARS-COV-2 COVID-19 2021-01-16 Completed [facility] of PFIZER VACCINE 00:00:00 [facility] SARS-COV-2 COVID-19 2021-01-16 Completed [facility] of PFIZER VACCINE 00:00:00 [facility] SARS-COV-2 COVID-19 2021-01-16 Completed [facility] of PFIZER VACCINE 00:00:00 [facility] HEPATITIS A 2014-01-23 Completed [facility] of 00:00:00 [facility] Heamophilus Influenza 2014-01-23 Completed Uni versity of B 00:00:00 [facility] HEPATITIS A 2014-01-23 Completed University of 00:00:00 [facility] Heamophilus Influenza 2014-01-23 Completed Uni versity of B 00:00:00 [facility] HEPATITIS A 2014-01-23 Completed University of 00:00:00 [facility] Heamophilus Influenza 2014-01-23 Completed Uni versity of B 00:00:00 [facility] HEPATITIS A 2014-01-23 Completed University of 00:00:00 [facility] Heamophilus Influenza 2014-01-23 Completed Uni vers[facility] of B 00:00:00 [facility] HEPATITIS A 2014-01-23 Completed [facility] 00:00:00 [facility] Heamophilus Influenza 2014-01-23 Completed Uni vers[facility] of B 00:00:00 [facility] HEPATITIS A 2014-01-23 Completed University of 00:00:00 [facility] Heamophilus Influenza 2014-01-23 Completed Uni vers[facility] B 00:00:00 [facility] HEPATITIS A 2014-01-23 Completed University of 00:00:00 [facility] Heamophilus Influenza 2014-01-23 Completed Uni vers[facility] of B 00:00:00 [facility] HEPATITIS A 2014-01-23 Completed University of 00:00:00 [facility] Heamophilus Influenza 2014-01-23 Completed Uni versity of B 00:00:00 [facility] HEPATITIS A 2014-01-23 Completed University of 00:00:00 [facility] Heamophilus Influenza 2014-01-23 Completed Uni versity of B 00:00:00 [facility] HEPATITIS A 2014-01-23 Completed University of 00:00:00 [facility] Heamophilus Influenza 2014-01-23 Completed Uni vers[facility] of B 00:00:00 [facility] HEPATITIS A 2014-01-23 Completed University of 00:00:00 [facility] Heamophilus Influenza 2014-01-23 Completed Uni vers[facility] of B 00:00:00 [facility] HEPATITIS A 2014-01-23 Completed University of 00:00:00 [facility] Heamophilus Influenza 2014-01-23 Completed Uni vers[facility] of B 00:00:00 [facility] HEPATITIS A 2014-01-23 Completed University of 00:00:00 [facility] Heamophilus Influenza 2014-01-23 Completed Uni vers[facility] of B 00:00:00 [facility] HEPATITIS A 2014-01-23 Completed University of 00:00:00 [facility] Heamophilus Influenza 2014-01-23 Completed Uni vers[facility] of B 00:00:00 [facility] HEPATITIS A 2014-01-23 Completed University of 00:00:00 [facility] Heamophilus Influenza 2014-01-23 Completed Uni versity of B 00:00:00 [facility] HEPATITIS A 2014-01-23 Completed University of 00:00:00 [facility] Heamophilus Influenza 2014-01-23 Completed Uni versity of B 00:00:00 [facility] HEPATITIS A 2014-01-23 Completed University of 00:00:00 [facility] Heamophilus Influenza 2014-01-23 Completed Uni vers[facility] of B 00:00:00 [facility] HEPATITIS A 2014-01-23 Completed University of 00:00:00 [facility] Heamophilus Influenza 2014-01-23 Completed Uni versity of B 00:00:00 [facility] HEPATITIS A 2014-01-23 Completed University of 00:00:00 [facility] Heamophilus Influenza 2014-01-23 Completed Uni vers[facility] of B 00:00:00 [facility] HEPATITIS A 2014-01-23 Completed University of 00:00:00 [facility] Heamophilus Influenza 2014-01-23 Completed Uni vers[facility] of B 00:00:00 [facility] HEPATITIS A 2014-01-23 Completed University of 00:00:00 [facility] Heamophilus Influenza 2014-01-23 Completed Uni vers[facility] of B 00:00:00 [facility] HEPATITIS A 2014-01-23 Completed University of 00:00:00 [facility] Heamophilus Influenza 2014-01-23 Completed Uni versity of B 00:00:00 [facility] HEPATITIS A 2014-01-23 Completed University of 00:00:00 [facility] Heamophilus Influenza 2014-01-23 Completed Uni versity of B 00:00:00 [facility] HEPATITIS A 2014-01-23 Completed [facility] of 00:00:00 [facility] Heamophilus Influenza 2014-01-23 Completed Uni vers[facility] of B 00:00:00 [facility] HEPATITIS A 2014-01-23 Completed [facility] of 00:00:00 [facility] Heamophilus Influenza 2014-01-23 Completed Uni vers[facility] of B 00:00:00 [facility] DTAP 2013-04-12 Completed University of 00:00:00 [facility] Polio (IPV/OPV) 2013-04-12 Completed Universit y of 00:00:00 [facility] Pneumococcal 7 2013-04-12 Completed University of Conjugate, PCV7 00:00:00 [facility]Pre[facility] DTAP 2013-04-12 Completed [facility] of 00:00:00 [facility] Polio (IPV/OPV) 2013-04-12 Completed Universit y of 00:00:00 [facility] Pneumococcal 7 2013-04-12 Completed University of Conjugate, PCV7 00:00:00 [facility] (Pre[facility]ar[facility] DTAP 2013-04-12 Completed [facility] of 00:00:00 [facility] Polio (IPV/OPV) 2013-04-12 Completed [facility]it y of 00:00:00 [facility] Pneumococcal 7 2013-04-12 Completed [facility] of Conjugate, PCV7 00:00:00 [facility] (Pre[facility]ar[facility] DT 2013-04-12 Completed [facility] of 00:00:00 [facility] Polio (IPV/OPV) 2013-04-12 Completed [facility]it y of 00:00:00 [facility] Pneumococcal 7 2013-04-12 Completed [facility] of Conjugate, PCV7 00:00:00 [facility] PENDING SALE TO [facility] 2013-04-12 Completed [facility] of 00:00:00 [facility] Polio (IPV/OPV) 2013-04-12 Completed Universit y of 00:00:00 [facility] Pneumococcal 7 2013-04-12 Completed [facility] of Conjugate, PCV7 00:00:00 [facility] (Pre[facility] PENDING S[facility] TO [facility] 2013-04-12 Completed [facility] of 00:00:00 [facility] Polio (IPV/OPV) 2013-04-12 Completed Universit y of 00:00:00 [facility] Pneumococcal 7 2013-04-12 Completed [facility] of Conjugate, PCV7 00:00:00 [facility] PENDING S[facility] 2013-04-12 Completed [facility] of 00:00:00 [facility] Polio (IPV/OPV) 2013-04-12 Completed Universit y of 00:00:00 [facility] Pneumococcal 7 2013-04-12 Completed [facility] of Conjugate, PCV7 00:00:00 [facility] (Prevnar7[facility] DT 2013-04-12 Completed [facility] of 00:00:00 [facility] Polio (IPV/OPV) 2013-04-12 Completed [facility]it y of 00:00:00 [facility] Pneumococcal 7 2013-04-12 Completed [facility] of Conjugate, PCV7 00:00:00 [facility]Pre[facility]ar[facility] PENDING SALE [facility] 2013-04-12 Completed [facility] of 00:00:00 [facility] Polio (IPV/OPV) 2013-04-12 Completed [facility]it [facility] of 00:00:00 [facility] Pneumococcal 7 2013-04-12 Completed [facility] of Conjugate, PCV7 00:00:00 [facility] (Pre[facility]ar[facility] PENDING S[facility] 2013-04-12 Completed [facility] of 00:00:00 [facility] Polio (IPV/OPV) 2013-04-12 Completed [facility]it [facility] of 00:00:00 [facility] Pneumococcal 7 2013-04-12 Completed [facility] of Conjugate, PCV7 00:00:00 [facility]Pre[facility]ar[facility] PENDING SALE [facility] 2013-04-12 Completed [facility] of 00:00:00 [facility] Polio (IPV/OPV) 2013-04-12 Completed [facility] of 00:00:00 [facility] Pneumococcal 7 2013-04-12 Completed [facility] of Conjugate, PCV7 00:00:00 [facility] (Prevnar[facility] PENDING SALE [facility] 2013-04-12 Completed [facility] of 00:00:00 [facility] Polio (IPV/OPV) 2013-04-12 Completed [facility]it [facility] of 00:00:00 [facility] Pneumococcal 7 2013-04-12 Completed University of Conjugate, PCV7 00:00:00 [facility]Pre[facility] PENDING S[facility] 2013-04-12 Completed [facility] of 00:00:00 [facility] Polio (IPV/OPV) 2013-04-12 Completed Universit [facility] of 00:00:00 [facility] Pneumococcal 7 2013-04-12 Completed [facility] of Conjugate, PCV7 00:00:00 [facility] PENDING S[facility] 2013-04-12 Completed [facility] of 00:00:00 [facility] Polio (IPV/OPV) 2013-04-12 Completed [facility]it [facility] of 00:00:00 [facility] Pneumococcal 7 2013-04-12 Completed University of Conjugate, PCV7 00:00:00 [facility] PENDING S[facility] 2013-04-12 Completed [facility] of 00:00:00 [facility] Polio (IPV/OPV) 2013-04-12 Completed [facility]it [facility] of 00:00:00 [facility] Pneumococcal 7 2013-04-12 Completed [facility] of Conjugate, PCV7 00:00:00 [facility] PENDING S[facility] 2013-04-12 Completed [facility] of 00:00:00 [facility] Polio (IPV/OPV) 2013-04-12 Completed Universit y of 00:00:00 [facility] Pneumococcal 7 2013-04-12 Completed [facility] of Conjugate, PCV7 00:00:00 [facility] ([facility] PENDING S[facility] 2013-04-12 Completed [facility] of 00:00:00 [facility] Polio (IPV/OPV) 2013-04-12 Completed [facility]it y of 00:00:00 [facility] Pneumococcal 7 2013-04-12 Completed University of Conjugate, PCV7 00:00:00 [facility] PENDING S[facility] 2013-04-12 Completed [facility] of 00:00:00 [facility] Polio (IPV/OPV) 2013-04-12 Completed [facility]it [facility] of 00:00:00 [facility] Pneumococcal 7 2013-04-12 Completed [facility] of Conjugate, PCV7 00:00:00 [facility] PENDING SALE [facility] 2013-04-12 Completed [facility] of 00:00:00 [facility] Polio (IPV/OPV) 2013-04-12 Completed Universit [facility] of 00:00:00 [facility] Pneumococcal 7 2013-04-12 Completed University of Conjugate, PCV7 00:00:00 [facility] ical (Prevnar7) Branch PENDING SALE TO [facility] 2013-04-12 Completed University of 00:00:00 [facility] Polio (IPV/OPV) 2013-04-12 Completed Universit y of 00:00:00 [facility] Pneumococcal 7 2013-04-12 Completed University of Conjugate, PCV7 00:00:00 [facility] ical (Prevnar7) Branch PENDING SALE TO [facility] 2013-04-12 Completed [facility] of 00:00:00 [facility] Polio (IPV/OPV) 2013-04-12 Completed [facility] of 00:00:00 [facility] Pneumococcal 7 2013-04-12 Completed University of Conjugate, PCV7 00:00:00 [facility] ical (Prevnar7) Branch PENDING SALE TO [facility] 2013-04-12 Completed [facility] of 00:00:00 [facility] Polio (IPV/OPV) 2013-04-12 Completed [facility] of 00:00:00 [facility] Pneumococcal 7 2013-04-12 Completed [facility] of Conjugate, PCV7 00:00:00 [facility] PENDING SALE [facility] 2013-04-12 Completed [facility] of 00:00:00 [facility] Polio (IPV/OPV) 2013-04-12 Completed [facility] of 00:00:00 [facility] Pneumococcal 7 2013-04-12 Completed [facility] of Conjugate, PCV7 00:00:00 [facility] ([facility]ar[facility] DTAP 2013-04-12 Completed [facility] of 00:00:00 [facility] Polio (IPV/OPV) 2013-04-12 Completed [facility]it [facility] of 00:00:00 [facility] Pneumococcal 7 2013-04-12 Completed [facility] of Conjugate, PCV7 00:00:00 [facility] (Prevnar7[facility] DTAP 2013-04-12 Completed [facility] of 00:00:00 [facility] Polio (IPV/OPV) 2013-04-12 Completed [facility] of 00:00:00 [facility] Pneumococcal 7 2013-04-12 Completed [facility] of Conjugate, PCV7 00:00:00 [facility] ([facility] PENDING SALE [facility] 2013-04-12 Completed [facility] of 00:00:00 [facility] Polio (IPV/OPV) 2013-04-12 Completed [facility] of 00:00:00 [facility] Pneumococcal 7 2013-04-12 Completed [facility] of Conjugate, PCV7 00:00:00 [facility] PENDING SALE [facility] 2013-04-12 Completed [facility] of 00:00:00 [facility] Polio (IPV/OPV) 2013-04-12 Completed [facility] of 00:00:00 [facility] Pneumococcal 7 2013-04-12 Completed University of Conjugate, PCV7 00:00:00 [facility] ([facility] PENDING S[facility] 2013-04-12 Completed [facility] of 00:00:00 [facility] Polio (IPV/OPV) 2013-04-12 Completed [facility] of 00:00:00 [facility] Pneumococcal 7 2013-04-12 Completed [facility] of Conjugate, PCV7 00:00:00 [facility] (Pre[facility]ar[facility] PENDING S[facility] 2013-04-12 Completed [facility] of 00:00:00 [facility] Polio (IPV/OPV) 2013-04-12 Completed [facility] of 00:00:00 [facility] Pneumococcal 7 2013-04-12 Completed [facility] of Conjugate, PCV7 00:00:00 [facility] ([facility] PENDING S[facility] 2013-04-12 Completed [facility] of 00:00:00 [facility] Polio (IPV/OPV) 2013-04-12 Completed [facility] of 00:00:00 [facility] Pneumococcal 7 2013-04-12 Completed University of Conjugate, PCV7 00:00:00 [facility] ical (Prevnar7) Branch DTAP 2013-04-12 Completed [facility] of 00:00:00 [facility] Polio (IPV/OPV) 2013-04-12 Completed [facility] of 00:00:00 [facility] Pneumococcal 7 2013-04-12 Completed University of Conjugate, PCV7 00:00:00 [facility] (Prevnar7) Branch HEPATITIS A 2013-03-15 Completed [facility] of 00:00:00 [facility] Hep B, Adol or Pedi 2013-03-15 Completed Unive rsity of Dosage 00:00:00 [facility] Meningococcal 2013-03-15 Completed [facility] Polysaccharide 00:00:00 [facility] (groups A, C, Y and Branc h W-135) conjugate vaccine (MCV4P) HEPATITIS A 2013-03-15 Completed [facility] of 00:00:00 [facility] Hep B, Adol or Pedi 2013-03-15 Completed Unive rsity of Dosage 00:00:00 [facility] Meningococcal 2013-03-15 Completed [facility] Polysaccharide 00:00:00 [facility] (groups A, C, Y and Branc h W-135) conjugate vaccine (MCV4P) HEPATITIS A 2013-03-15 Completed [facility] of 00:00:00 [facility] Hep B, Adol or Pedi 2013-03-15 Completed [facility]ity of Dosage 00:00:00 [facility] Meningococcal 2013-03-15 Completed [facility] Polysaccharide 00:00:00 [place] [facility] (groups A, C, Y and Branc h W-135) conjugate vaccine (MCV4P) HEPATITIS A 2013-03-15 Completed [facility] of 00:00:00 [facility] Hep B, Adol or Pedi 2013-03-15 Completed Unive rsity of Dosage 00:00:00 [facility] Meningococcal 2013-03-15 Completed [facility] Polysaccharide 00:00:00 [facility] (groups A, C, Y and Branc h W-135) conjugate vaccine (MCV4P) HEPATITIS A 2013-03-15 Completed [facility] of 00:00:00 [facility] Hep B, Adol or Pedi 2013-03-15 Completed Unive [facility]ity of Dosage 00:00:00 [facility] Meningococcal 2013-03-15 Completed [facility] Polysaccharide 00:00:00 [facility] (groups A, C, Y and Branc h W-135) conjugate vaccine (MCV4P) HEPATITIS A 2013-03-15 Completed [facility] of 00:00:00 [facility] Hep B, Adol or Pedi 2013-03-15 Completed Unive [facility]ity of Dosage 00:00:00 [facility] Meningococcal 2013-03-15 Completed [facility] Polysaccharide 00:00:00 [place] [facility] (groups A, C, Y and Branc h W-135) conjugate vaccine (MCV4P) HEPATITIS A 2013-03-15 Completed [facility] of 00:00:00 [facility] Hep B, Adol or Pedi 2013-03-15 Completed [facility]ive [facility]ity of Dosage 00:00:00 [facility] Meningococcal 2013-03-15 Completed [facility] Polysaccharide 00:00:00 [facility] (groups A, C, Y and Branc h W-135) conjugate vaccine (MCV4P) HEPATITIS A 2013-03-15 Completed [facility] of 00:00:00 [facility] Hep B, Adol or Pedi 2013-03-15 Completed Unive [facility]ity of Dosage 00:00:00 [facility] Meningococcal 2013-03-15 Completed [facility] Polysaccharide 00:00:00 [facility] (groups A, C, Y and Branc h W-135) conjugate vaccine (MCV4P) HEPATITIS A 2013-03-15 Completed [facility] of 00:00:00 [facility] Hep B, Adol or Pedi 2013-03-15 Completed [facility]ive [facility]ity of Dosage 00:00:00 [facility] Meningococcal 2013-03-15 Completed [facility] Polysaccharide 00:00:00 [place] [facility] (groups A, C, Y and Branc h W-135) conjugate vaccine (MCV4P) HEPATITIS A 2013-03-15 Completed [facility] 00:00:00 [facility] Hep B, Adol or Pedi 2013-03-15 Completed [facility] of Dosage 00:00:00 [facility] Meningococcal 2013-03-15 Completed [facility] Polysaccharide 00:00:00 [place] [facility] (groups A, C, Y and Branc h W-135) conjugate vaccine (MCV4P) HEPATITIS A 2013-03-15 Completed [facility] 00:00:00 [facility] Hep B, Adol or Pedi 2013-03-15 Completed [facility] of Dosage 00:00:00 [facility] Meningococcal 2013-03-15 Completed [facility] Polysaccharide 00:00:00 [place] [facility] (groups A, C, Y and Branc h W-135) conjugate vaccine (MCV4P) HEPATITIS A 2013-03-15 Completed [facility] 00:00:00 [facility] Hep B, Adol or Pedi 2013-03-15 Completed [facility] of Dosage 00:00:00 [facility] Meningococcal 2013-03-15 Completed [facility] Polysaccharide 00:00:00 [place] [facility] (groups A, C, Y and Branc h W-135) conjugate vaccine (MCV4P) HEPATITIS A 2013-03-15 Completed [facility] 00:00:00 [facility] Hep B, Adol or Pedi 2013-03-15 Completed [facility] of Dosage 00:00:00 [facility] Meningococcal 2013-03-15 Completed [facility] Polysaccharide 00:00:00 [place] [facility] (groups A, C, Y and Branc h W-135) conjugate vaccine (MCV4P) HEPATITIS A 2013-03-15 Completed [facility] 00:00:00 [facility] Hep B, Adol or Pedi 2013-03-15 Completed [facility] of Dosage 00:00:00 [facility] Meningococcal 2013-03-15 Completed [facility] Polysaccharide 00:00:00 [place] [facility] (groups A, C, Y and Branc h W-135) conjugate vaccine (MCV4P) HEPATITIS A 2013-03-15 Completed [facility] 00:00:00 [facility] Hep B, Adol or Pedi 2013-03-15 Completed [facility]ive [facility] of Dosage 00:00:00 [facility] Meningococcal 2013-03-15 Completed [facility] Polysaccharide 00:00:00 [place] [facility] (groups A, C, Y and Branc h W-135) conjugate vaccine (MCV4P) HEPATITIS A 2013-03-15 Completed [facility] of 00:00:00 [facility] Hep B, Adol or Pedi 2013-03-15 Completed Unive [facility]ity of Dosage 00:00:00 [facility] Meningococcal 2013-03-15 Completed [facility] Polysaccharide 00:00:00 [place] [facility] (groups A, C, Y and Branc h W-135) conjugate vaccine (MCV4P) HEPATITIS A 2013-03-15 Completed [facility] 00:00:00 [facility] Hep B, Adol or Pedi 2013-03-15 Completed [facility] of Dosage 00:00:00 [facility] Meningococcal 2013-03-15 Completed [facility] Polysaccharide 00:00:00 [place] [facility] (groups A, C, Y and Branc h W-135) conjugate vaccine (MCV4P) HEPATITIS A 2013-03-15 Completed [facility] 00:00:00 [facility] Hep B, Adol or Pedi 2013-03-15 Completed [facility] of Dosage 00:00:00 [facility] Meningococcal 2013-03-15 Completed [facility] Polysaccharide 00:00:00 [place] [facility] (groups A, C, Y and Branc h W-135) conjugate vaccine (MCV4P) HEPATITIS A 2013-03-15 Completed [facility] 00:00:00 [facility] Hep B, Adol or Pedi 2013-03-15 Completed [facility] of Dosage 00:00:00 [facility] Meningococcal 2013-03-15 Completed [facility] Polysaccharide 00:00:00 [place] [facility] (groups A, C, Y and Branc h W-135) conjugate vaccine (MCV4P) HEPATITIS A 2013-03-15 Completed [facility] 00:00:00 [facility] Hep B, Adol or Pedi 2013-03-15 Completed [facility] of Dosage 00:00:00 [facility] Meningococcal 2013-03-15 Completed [facility] Polysaccharide 00:00:00 [place] [facility] (groups A, C, Y and Branc h W-135) conjugate vaccine (MCV4P) HEPATITIS A 2013-03-15 Completed [facility] 00:00:00 [facility] Hep B, Adol or Pedi 2013-03-15 Completed [facility] of Dosage 00:00:00 [facility] Meningococcal 2013-03-15 Completed [facility] Polysaccharide 00:00:00 [place] [facility] (groups A, C, Y and Branc h W-135) conjugate vaccine (MCV4P) HEPATITIS A 2013-03-15 Completed [facility] of 00:00:00 [facility] Hep B, Adol or Pedi 2013-03-15 Completed Unive rsity of Dosage 00:00:00 [facility] Meningococcal 2013-03-15 Completed [facility] Polysaccharide 00:00:00 [facility] (groups A, C, Y and Branc h W-135) conjugate vaccine (MCV4P) HEPATITIS A 2013-03-15 Completed University of 00:00:00 [facility] Hep B, Adol or Pedi 2013-03-15 Completed Unive rsity of Dosage 00:00:00 [facility] Meningococcal 2013-03-15 Completed University of Polysaccharide 00:00:00 [place] [facility] (groups A, C, Y and Branc h W-135) conjugate vaccine (MCV4P) HEPATITIS A 2013-03-15 Completed University of 00:00:00 [facility] Hep B, Adol or Pedi 2013-03-15 Completed Unive rsity of Dosage 00:00:00 [facility] Meningococcal 2013-03-15 Completed [facility] of Polysaccharide 00:00:00 [place] [facility] (groups A, C, Y and Branc h W-135) conjugate vaccine (MCV4P) HEPATITIS A 2013-03-15 Completed University of 00:00:00 [facility] Hep B, Adol or Pedi 2013-03-15 Completed Unive rsity of Dosage 00:00:00 [facility] Meningococcal 2013-03-15 Completed University of Polysaccharide 00:00:00 [place] [facility] (groups A, C, Y and Branc h W-135) conjugate vaccine (MCV4P) HEPATITIS A 2013-03-15 Completed [facility] of 00:00:00 [facility] Hep B, Adol or Pedi 2013-03-15 Completed Unive rsity of Dosage 00:00:00 [facility] Meningococcal 2013-03-15 Completed University of Polysaccharide 00:00:00 [place] [facility] (groups A, C, Y and Branc h W-135) conjugate vaccine (MCV4P) HEPATITIS A 2013-03-15 Completed [facility] of 00:00:00 [facility] Hep B, Adol or Pedi 2013-03-15 Completed Unive rsity of Dosage 00:00:00 [facility] Meningococcal 2013-03-15 Completed [facility] Polysaccharide 00:00:00 [place] [facility] (groups A, C, Y and Branc h W-135) conjugate vaccine (MCV4P) HEPATITIS A 2013-03-15 Completed [facility] of 00:00:00 [facility] Hep B, Adol or Pedi 2013-03-15 Completed Unive rsity of Dosage 00:00:00 [facility] Meningococcal 2013-03-15 Completed University [facility] Polysaccharide 00:00:00 [place] [facility] (groups A, C, Y and Branc h W-135) conjugate vaccine (MCV4P) HEPATITIS A 2013-03-15 Completed [facility] of 00:00:00 [facility] Hep B, Adol or Pedi 2013-03-15 Completed Unive rsity of Dosage 00:00:00 [facility] Meningococcal 2013-03-15 Completed University of Polysaccharide 00:00:00 [place] [facility] (groups A, C, Y and Branc h W-135) conjugate vaccine (MCV4P) HEPATITIS A 2013-03-15 Completed [facility] of 00:00:00 [facility] Hep B, Adol or Pedi 2013-03-15 Completed Unive rsity of Dosage 00:00:00 [facility] Meningococcal 2013-03-15 Completed University of Polysaccharide 00:00:00 [place] [facility] (groups A, C, Y and Branc h W-135) conjugate vaccine (MCV4P) HEPATITIS A 2013-03-15 Completed University of 00:00:00 [facility] Hep B, Adol or Pedi 2013-03-15 Completed Unive rsity of Dosage 00:00:00 [facility] Meningococcal 2013-03-15 Completed University [facility] Polysaccharide 00:00:00 [place] [facility] (groups A, C, Y and Branc h W-135) conjugate vaccine (MCV4P) Pneumococcal 13 2013-01-24 Completed Universit y of Conjugate, PCV13 00:00:00 [facility] dical (Prevnar 13) Branch HIB 4 Dose Schedule 2013-01-24 Completed Unive rsity of 00:00:00 [facility] Hep B, Dtap, Polio 2013-01-24 Completed Univer sity of 00:00:00 [facility] Pneumococcal 13 2013-01-24 Completed Universit y of Conjugate, PCV13 00:00:00 [facility] dical (Prevnar 13) Branch HIB 4 Dose Schedule 2013-01-24 Completed Unive rsity of 00:00:00 [facility] Hep B, Dtap, Polio 2013-01-24 Completed Univer sity of 00:00:00 [facility] Pneumococcal 13 2013-01-24 Completed Universit y of Conjugate, PCV13 00:00:00 [facility] dical (Prevnar 13) Branch HIB 4 Dose Schedule 2013-01-24 Completed Unive rsity of 00:00:00 [facility] Hep B, Dtap, Polio 2013-01-24 Completed Univer sity of 00:00:00 [facility] Pneumococcal 13 2013-01-24 Completed Universit y of Conjugate, PCV13 00:00:00 [place] [facility] (Prevnar 13) Branch HIB 4 Dose Schedule 2013-01-24 Completed Unive rsity of 00:00:00 [facility] Hep B, Dtap, Polio 2013-01-24 Completed Univer sity of 00:00:00 [facility] Pneumococcal 13 2013-01-24 Completed Universit y of Conjugate, PCV13 00:00:00 [place] [facility] (Prevnar 13) Branch HIB 4 Dose Schedule 2013-01-24 Completed Unive rsity of 00:00:00 [facility] Hep B, Dtap, Polio 2013-01-24 Completed Univer sity of 00:00:00 [facility] Pneumococcal 13 2013-01-24 Completed Universit y of Conjugate, PCV13 00:00:00 [facility] dical (Prevnar 13) Branch HIB 4 Dose Schedule 2013-01-24 Completed Unive rsity of 00:00:00 [facility] Hep B, Dtap, Polio 2013-01-24 Completed Univer sity of 00:00:00 [facility] Pneumococcal 13 2013-01-24 Completed Universit y of Conjugate, PCV13 00:00:00 [place] [facility] (Prevnar 13) Branch HIB 4 Dose Schedule 2013-01-24 Completed Unive rsity of 00:00:00 [facility] Hep B, Dtap, Polio 2013-01-24 Completed Univer sity of 00:00:00 [facility] Pneumococcal 13 2013-01-24 Completed Universit y of Conjugate, PCV13 00:00:00 [place] [facility] (Prevnar 13) Branch HIB 4 Dose Schedule 2013-01-24 Completed Unive rsity of 00:00:00 [facility] Hep B, Dtap, Polio 2013-01-24 Completed Univer sity of 00:00:00 [facility] Pneumococcal 13 2013-01-24 Completed Universit y of Conjugate, PCV13 00:00:00 [facility] dical (Prevnar 13) Branch HIB 4 Dose Schedule 2013-01-24 Completed Unive rsity of 00:00:00 [facility] Hep B, Dtap, Polio 2013-01-24 Completed Univer sity of 00:00:00 [facility] Pneumococcal 13 2013-01-24 Completed Universit y of Conjugate, PCV13 00:00:00 [place] [facility] (Prevnar 13) Branch HIB 4 Dose Schedule 2013-01-24 Completed Unive rsity of 00:00:00 [facility] Hep B, Dtap, Polio 2013-01-24 Completed Univer sity of 00:00:00 [facility] Pneumococcal 13 2013-01-24 Completed Universit y of Conjugate, PCV13 00:00:00 [facility] dical (Prevnar 13) Branch HIB 4 Dose Schedule 2013-01-24 Completed Unive rsity of 00:00:00 [facility] Hep B, Dtap, Polio 2013-01-24 Completed Univer sity of 00:00:00 [facility] Pneumococcal 13 2013-01-24 Completed Universit y of Conjugate, PCV13 00:00:00 [facility] dical (Prevnar 13) Branch HIB 4 Dose Schedule 2013-01-24 Completed Unive rsity of 00:00:00 [facility] Hep B, Dtap, Polio 2013-01-24 Completed Univer sity of 00:00:00 [facility] Pneumococcal 13 2013-01-24 Completed Universit y of Conjugate, PCV13 00:00:00 [facility] dical (Prevnar 13) Branch HIB 4 Dose Schedule 2013-01-24 Completed Unive rsity of 00:00:00 [facility] Hep B, Dtap, Polio 2013-01-24 Completed Univer sity of 00:00:00 [facility] Pneumococcal 13 2013-01-24 Completed Universit y of Conjugate, PCV13 00:00:00 [facility] dical (Prevnar 13) Branch HIB 4 Dose Schedule 2013-01-24 Completed Unive rsity of 00:00:00 [facility] Hep B, Dtap, Polio 2013-01-24 Completed Univer sity of 00:00:00 [facility] Pneumococcal 13 2013-01-24 Completed Universit y of Conjugate, PCV13 00:00:00 [facility] dical (Prevnar 13) Branch HIB 4 Dose Schedule 2013-01-24 Completed Unive rsity of 00:00:00 [facility] Hep B, Dtap, Polio 2013-01-24 Completed Univer sity of 00:00:00 [facility] Pneumococcal 13 2013-01-24 Completed Universit y of Conjugate, PCV13 00:00:00 [place] [facility] (Prevnar 13) Branch HIB 4 Dose Schedule 2013-01-24 Completed Unive rsity of 00:00:00 [facility] Hep B, Dtap, Polio 2013-01-24 Completed Univer sity of 00:00:00 [facility] Pneumococcal 13 2013-01-24 Completed Universit y of Conjugate, PCV13 00:00:00 [place] [facility] (Prevnar 13) Branch HIB 4 Dose Schedule 2013-01-24 Completed Unive rsity of 00:00:00 [facility] Hep B, Dtap, Polio 2013-01-24 Completed Univer sity of 00:00:00 [facility] Pneumococcal 13 2013-01-24 Completed Universit y of Conjugate, PCV13 00:00:00 [facility] dical (Prevnar 13) Branch HIB 4 Dose Schedule 2013-01-24 Completed Unive rsity of 00:00:00 [facility] Hep B, Dtap, Polio 2013-01-24 Completed Univer sity of 00:00:00 [facility] Pneumococcal 13 2013-01-24 Completed Universit y of Conjugate, PCV13 00:00:00 [facility] dical (Prevnar 13) Branch HIB 4 Dose Schedule 2013-01-24 Completed Unive rsity of 00:00:00 [facility] Hep B, Dtap, Polio 2013-01-24 Completed Univer sity of 00:00:00 [facility] Pneumococcal 13 2013-01-24 Completed Universit y of Conjugate, PCV13 00:00:00 [facility] dical (Prevnar 13) Branch HIB 4 Dose Schedule 2013-01-24 Completed Unive rsity of 00:00:00 [facility] Hep B, Dtap, Polio 2013-01-24 Completed Univer sity of 00:00:00 [facility] Pneumococcal 13 2013-01-24 Completed Universit y of Conjugate, PCV13 00:00:00 [place] [facility] (Prevnar 13) Branch HIB 4 Dose Schedule 2013-01-24 Completed Unive rsity of 00:00:00 [facility] Hep B, Dtap, Polio 2013-01-24 Completed Univer sity of 00:00:00 [facility] Pneumococcal 13 2013-01-24 Completed Universit y of Conjugate, PCV13 00:00:00 [facility] dical (Prevnar 13) Branch HIB 4 Dose Schedule 2013-01-24 Completed Unive rsity of 00:00:00 [facility] Hep B, Dtap, Polio 2013-01-24 Completed Univer sity of 00:00:00 [facility] Pneumococcal 13 2013-01-24 Completed Universit y of Conjugate, PCV13 00:00:00 [place] [facility] (Prevnar 13) Branch HIB 4 Dose Schedule 2013-01-24 Completed Unive rsity of 00:00:00 [facility] Hep B, Dtap, Polio 2013-01-24 Completed Univer sity of 00:00:00 [facility] Pneumococcal 13 2013-01-24 Completed Universit y of Conjugate, PCV13 00:00:00 [place] [facility] (Prevnar 13) Branch HIB 4 Dose Schedule 2013-01-24 Completed Unive rsity of 00:00:00 [facility] Hep B, Dtap, Polio 2013-01-24 Completed Univer sity of 00:00:00 [facility] Pneumococcal 13 2013-01-24 Completed Universit y of Conjugate, PCV13 00:00:00 [facility] dical (Prevnar 13) Branch HIB 4 Dose Schedule 2013-01-24 Completed Unive rsity of 00:00:00 [facility] Hep B, Dtap, Polio 2013-01-24 Completed Univer sity of 00:00:00 [facility] Pneumococcal 13 2013-01-24 Completed Universit y of Conjugate, PCV13 00:00:00 [place] [facility] (Prevnar 13) Branch HIB 4 Dose Schedule 2013-01-24 Completed Unive rsity of 00:00:00 [facility] Hep B, Dtap, Polio 2013-01-24 Completed Univer sity of 00:00:00 [facility] Pneumococcal 13 2013-01-24 Completed Universit y of Conjugate, PCV13 00:00:00 [place] [facility] (Prevnar 13) Branch HIB 4 Dose Schedule 2013-01-24 Completed Unive rsity of 00:00:00 [facility] Hep B, Dtap, Polio 2013-01-24 Completed Univer sity of 00:00:00 [facility] Pneumococcal 13 2013-01-24 Completed Universit y of Conjugate, PCV13 00:00:00 [facility] dical (Prevnar 13) Branch HIB 4 Dose Schedule 2013-01-24 Completed Unive rsity of 00:00:00 [facility] Hep B, Dtap, Polio 2013-01-24 Completed Univer sity of 00:00:00 [facility] Pneumococcal 13 2013-01-24 Completed Universit y of Conjugate, PCV13 00:00:00 [place] [facility] (Prevnar 13) Branch HIB 4 Dose Schedule 2013-01-24 Completed Unive rsity of 00:00:00 [facility] Hep B, Dtap, Polio 2013-01-24 Completed Univer sity of 00:00:00 [facility] Pneumococcal 13 2013-01-24 Completed Universit y of Conjugate, PCV13 00:00:00 [facility] dical (Prevnar 13) Branch HIB 4 Dose Schedule 2013-01-24 Completed Unive rsity of 00:00:00 [facility] Hep B, Dtap, Polio 2013-01-24 Completed Univer sity of 00:00:00 [facility] Pneumococcal 13 2013-01-24 Completed Universit y of Conjugate, PCV13 00:00:00 [facility] dical (Prevnar 13) Branch HIB 4 Dose Schedule 2013-01-24 Completed Unive rsity of 00:00:00 [facility] Hep B, Dtap, Polio 2013-01-24 Completed Univer sity of 00:00:00 [facility] Vital Signs Vital Name Observation Time Observation Value Comments Source Systolic blood 2023-03-31 19:23:00 110 mm[Hg] Univer sity of pressure [facility] Diastolic blood 2023-03-31 19:23:00 75 mm[Hg] Unive rsity of pressure [facility] Heart rate 2023-03-31 19:23:00 99 /min [facility] Body height 2023-03-31 19:23:00 165.1 cm [facility] Body weight 2023-03-31 19:23:00 70.398 kg [facility] BMI 2023-03-31 19:23:00 25.83 kg/m2 [facility] Oxygen saturation in 2023-03-31 19:23:00 97 /min [facility] Arterial blood by [facility] Pulse oximetry Branch Systolic blood 2023-03-24 14:42:00 129 mm[Hg] Univer sity of pressure [facility] Diastolic blood 2023-03-24 14:42:00 87 mm[Hg] Unive rsity of pressure [facility] Heart rate 2023-03-24 14:42:00 90 /min [facility] Body temperature 2023-03-24 14:42:00 36.72 [place] [facility] Respiratory rate 2023-03-24 14:42:00 18 /min [facility] Body height 2023-03-24 14:42:00 165.1 cm [facility] Body weight 2023-03-24 14:42:00 68.629 kg [facility] BMI 2023-03-24 14:42:00 25.18 kg/m2 [facility] Oxygen saturation in 2023-03-24 14:42:00 99 /min University of Arterial blood by [facility] florencio Pulse oximetry Branch Systolic blood 2022-10-07 20:47:00 124 mm[Hg] Univer sity of pressure [facility] Diastolic blood 2022-10-07 20:47:00 86 mm[Hg] Unive rsity of pressure [facility] Heart rate 2022-10-07 20:47:00 101 /min [facility] Body height 2022-10-07 20:47:00 165.1 cm [facility] Body weight 2022-10-07 20:47:00 69.264 kg [facility] BMI 2022-10-07 20:47:00 25.41 kg/m2 [facility] Oxygen saturation in 2022-10-07 20:47:00 94 /min [facility] Arterial blood by [place] [facility] Pulse oximetry Branch Systolic blood 2022-08-05 19:18:00 128 mm[Hg] Univer sity of pressure [facility] Diastolic blood 2022-08-05 19:18:00 81 mm[Hg] Unive rsity of pressure [facility] Heart rate 2022-08-05 19:18:00 110 /min [facility] Respiratory rate 2022-08-05 19:18:00 23 /min [facility] Body height 2022-08-05 19:18:00 165.1 cm [facility] Body weight 2022-08-05 19:18:00 70.308 kg [facility] BMI 2022-08-05 19:18:00 25.79 kg/m2 [facility] Oxygen saturation in 2022-08-05 19:18:00 97 /min University of Arterial blood by [facility] Pulse oximetry Branch Systolic blood 2022-08-04 18:34:00 125 mm[Hg] Univer sity of pressure [facility] Diastolic blood 2022-08-04 18:34:00 84 mm[Hg] Unive rsity of pressure [facility] Heart rate 2022-08-04 18:34:00 96 /min [facility] Body height 2022-08-04 18:34:00 165.1 cm [facility] Body weight 2022-08-04 18:34:00 70.625 kg [facility] BMI 2022-08-04 18:34:00 25.91 kg/m2 [facility] Oxygen saturation in 2022-08-04 18:34:00 97 /min [facility] of Arterial blood by [facility] Pulse oximetry Branch Systolic blood 2022-07-05 16:31:00 128 mm[Hg] Univer sity of pressure [facility] Diastolic blood 2022-07-05 16:31:00 86 mm[Hg] Unive rsity of pressure [facility] Heart rate 2022-07-05 16:31:00 93 /min [facility] Body height 2022-07-05 16:31:00 165.1 cm [facility] Body weight 2022-07-05 16:31:00 67.722 kg [facility] BMI 2022-07-05 16:31:00 24.84 kg/m2 [facility] Oxygen saturation in 2022-07-05 16:31:00 99 /min University of Arterial blood by [facility] Pulse oximetry Branch Procedures Procedure Date / Time Performing Clinician Source Performed ASSIGNMENT OF BENEFITS 2022-10-07 20:44:49 Doctor Unassigned, [facility] [place] [facility] INSURANCE CORRESPONDENCE 2022-08-16 06:01:00 Doctor Unassigned, [facility] [place] [facility] POCT HEMOGLOBIN A1C TEST 2022-08-04 20:25:00 Emre Gan versity [facility] Encounters Start End Encounter Admission Attending Care Care Encounter Source Date/Time Date/Time Type Type Clinicians Facility Department ID 2023-04-27 2023-04-27 Outpatient R ELVIA [facility] [id number] Univers 14:30:00 14:30:00 EMRE gant [facility] 2023-04-13 2023-04-[address] [facility] [facility] [id number] Univers 14:30:00 14:30:00 EMRE gant [facility] 2023-04-03 2023-04-03 Patient Doctor [facility] 1.2.840.114 [id number] Univers 00:00:00 00:00:00 Secure Msg Unassigned, HEALTH 350.1.13.10 ity of [place] 4.2.7.2.686 Scooter as PITO?BLEA [phone] [address] MEDICAL OFFICE [facility] 2023-03-31 2023-03-31 [facility], Ang - Db [facility] 1.2.840.1 [id number] Univers 15:15:00 15:34:55 Visit Emre Gan [facility] 350.1.13.10 ity of [place] 4.2.7.2.686 Scooter as PITO?BLEA [id number] Wy noel [facility] [address] MEDICAL OFFICE [facility] 2023-03-31 2023-03-[address] [facility] [id number] Univers 14:00:00 15:08:45 EMRE jerrynakul [facility] 2023-03-31 2023-03-31 [facility] 1.2.840.114 [id number] Univers 14:00:00 15:08:45 [facility] 350.1.13.10 it y of [place] 4.2.7.2.686 Scooter as PITO?BLEA [phone] [address] MEDICAL OFFICE [facility] 2023-03-31 2023-03-31 Letter [facility] 1.2.840.114 [id number] Univers 00:00:00 00:00:00 (Out) Emre HEALTH 350.1.13.10 it y of [place] 4.2.7.2.686 Scooter as PITO?BLEA [id number] Wy noel SMITH [address] [place] [address] MEDICAL OFFICE [facility] 2023-03-29 2023-03-[address] [facility] [id number] Univers 13:00:00 13:00:00 MELLY gant [facility] 2023-03-24 2023-03-24 Office [facility] 1.2.840.114 [id number] Univers 09:30:00 10:00:00 Visit Melly A HEALTH 350.1.13.10 i ty of [place] 4.2.7.2.686 Scooter as PITO?BLEA [phone] [address] OFFICE [facility] 2023-03-24 2023-03-[address] [facility] [id number] Univers 09:30:00 09:30:00 MELLY gant [facility] 2023-03-24 2023-03-24 Letter [facility] 1.2.840.114 [id number] Univers 00:00:00 00:00:00 (Out) Melly A HEALTH 350.1.13.10 i ty of [place] 4.2.7.2.686 Scooter as PITO?BLEA [phone] Wy noel SMITH [address] [place] [address] OFFICE [facility] 2023-03-24 2023-03-24 Letter [facility] 1.2.840.114 [id number] Univers 00:00:00 00:00:00 (Out) Melly A HEALTH 350.1.13.10 i ty of [place] 4.2.7.2.686 Scooter as PITO?BLEA [phone] Wy noel FORD[address] MEDICAL OFFICE [facility] 2023-03-21 2023-03-21 Telephone Elvia [facility] [id number] Univers 00:00:00 00:00:00 Emre HEALTH 350.1.13.10 it y of [place] 4.2.7.2.686 Scooter as PITO?BLEA [id number] Wy dicsg FORD [address] MEDICAL OFFICE [facility] 2023-03-17 2023-03-[address] [facility] [id number] Univers 15:30:00 15:30:00 RICHARD gant [facility] 2023-02-26 2023-02-26 [facility] 1.2.840.114 [id number] Univers 00:00:00 00:00:00 Emre HEALTH 350.1.13.10 it y of [place] 4.2.7.2.686 Scooter as PITO?BLEA [phone] Wy noel FORD[address] OFFICE [facility] 2023-02-21 2023-02-21 Telephone [facility] 1.2.840.114 [id number] Univers 00:00:00 00:00:00 Richard HEALTH 350.1.13.10 it y of [place] 4.2.7.2.686 Scooter as PITO?BLEA [id number] Wy noel SMITH [address] [facility] OFFICE [facility] 2023-01-19 2023-01-19 Telephone [facility] [id number] Univers 00:00:00 00:00:00 Emre HEALTH 350.1.13.10 it y of [place] 4.2.7.2.686 Scooter as PITO?BLEA [id number] Wy noel [address] OFFICE [facility] 2023-01-09 2023-01-09 [facility] 1.2.840.114 [id number] Univers 00:00:00 00:00:00 Emre HEALTH 350.1.13.10 it y of [place] 4.2.7.2.686 Scooter as PITO?BLEA [id number] Wy noel FORD[address] OFFICE [facility] 2022-10-18 2022-10-18 [facility] 1.2.840.114 [id number] Univers 00:00:00 00:00:00 Emre HEALTH 350.1.13.10 it y of [place] 4.2.7.2.686 Scooter as PITO?BLEA [id number] Wy dicsg [address] OFFICE [facility] 2022-10-07 2022-10-07 Outpatient R DAX [facility] [id number] Univers 15:00:00 15:46:19 RICHARD itnakul of [facility] 2022-10-07 2022-10-07 Office [facility] [id number] Univers 15:00:00 15:46:19 Visit Richard HEALTH 350.1.13.10 it y of [place] 4.2.7.2.686 Scooter as PITO?BLEA [id number] Wy dicksg SMITH [address] [facility] OFFICE [facility] 2022-10-07 2022-10-07 Orders Doctor JEFFERY 1.2.840.114 [id number] Univers 00:00:00 00:00:00 Only Unassigned, GABO 350.1.13.10 ity of [place] [facility] 4.2.7.2.686 Scooter as [id number] [address] 2022-09-15 2022-09-15 [place] [facility] [id number] Univers 00:00:00 00:00:00 Emre HEALTH 350.1.13.10 it y of [place] 4.2.7.2.686 Scooter as PITO?BLEA [id number] Wy dicksg SMITH 0[address] [facility] 2022-08-25 2022-08-[address] [facility] [id number] Univers 15:48:17 23:59:00 ROSEANNE rucker [facility] 2022-08-16 2022-08-16 Orders Doctor GIL 1.2.840.114 [id number] Univers 00:00:00 00:00:00 Only Unassigned, GABO 350.1.13.10 ity of [place] [facility] 4.2.7.2.686 Scooter as [phone] [address] 2022-08-05 2022-08-[address] [facility] [id number] Univers 14:00:00 14:39:02 ROSEANNE ferro [facility] 2022-08-05 2022-08-05 Office [facility] 1.2.840.114 [id number] Univers 14:00:00 14:39:02 Visit Roseanne HERRING 350.1.13.10 [place]y of [place] 4.2.7.2.686 [place] [id number] Wy dical NAL 0[address] [facility] 2022-08-04 2022-08-04 [facility] [id number] Univers 13:30:00 14:59:51 EMRE ity [facility] 2022-08-04 2022-08-04 [facility] 1.2.840.114 [id number] Univers 13:30:00 14:59:51 Visit Emre HEALTH 350.1.13.10 it y of [place] 4.2.7.2.686 Scooter as PITO?BLEA [phone] [address] OFFICE [facility] 2022-07-19 2022-07-19 Refjose [facility] 1.2.840.114 [id number] Univers 00:00:00 00:00:00 Luis Miguel HEALTH 350.1.13.10 it y of [place] 4.2.7.2.686 Scooter as PITO?BLEA [phone] [address] OFFICE [facility] 2022-07-05 2022-07-[address] [facility] [id number] Univers 11:30:00 11:46:02 EMRE gant [facility] 2022-07-05 2022-07-05 [facility] 1.2.840.114 [id number] Univers 11:30:00 11:46:02 Visit [facility] HEALTH 350.1.13.10 it y of [place] 4.2.7.2.686 Scooter as PITO?BLEA [id number] Wy dic[address] OFFICE [facility] 2022-07-05 2022-07-05 Telephone [facility] 1.2.769.524 [id number] Univers 00:00:00 00:00:00 Emre HEALTH 350.1.13.10 it y of [place] 4.2.7.2.686 Scooter as PITO?BLEA [phone] Wy dic[address] OFFICE BUILDING 2022-06-28 2022-06-28 Telephone Elvia [facility] 1.2.278.897 [id number] Univers 00:00:00 00:00:00 Emre HEALTH 350.1.13.10 it y of [place] 4.2.7.2.686 Scooter as PITO?BLEA [phone] [facility] [address] MEDICAL OFFICE [facility] 2022-06-22 2022-06-22 Telephone Elvia [facility] 1.2.008.083 [id number] Univers 00:00:00 00:00:00 Emre HEALTH 350.1.13.10 it y of [place] 4.2.7.2.686 Scooter as PITO?BLEA [phone] [address] MEDICAL OFFICE [facility] 2022-06-21 2022-06-21 Case Yazmin, [facility] 1.2.840.114 [id number] Univers 00:00:00 00:00:00 Management Rania HEALTH 350.1.13.10 ity of [place] 4.2.7.2.686 Scooter as PITO?BLEA [phone] [address] MEDICAL OFFICE BUILDING 2022-06-21 2022-06-21 Case Oneilbelenre, [facility] 1.2.840.114 [id number] Univers 00:00:00 00:00:00 Management Rania HEALTH 350.1.13.10 ity of [place] 4.2.7.2.686 Scooter as PITO?BLEA [phone] [address] MEDICAL OFFICE BUILDING 2022-06-21 2022-06-21 Case Hetalm, [facility] 1.2.840.114 [id number] Univers 00:00:00 00:00:00 Management Rania HEALTH 350.1.13.10 ity of [place] 4.2.7.2.686 Scooter as PITO?BLEA [id number] [address] MEDICAL OFFICE BUILDING 2022-06-20 2022-06-20 [facility], Ang - Db [facility] 1.2.840.1 14 [id number] Univers 12:00:00 12:14:16 Visit Emre Gan 350.1.13.10 ity of [place] 4.2.7.2.686 Scooter as PITO?BLEA [phone] [address] OFFICE [facility] 2022-06-20 2022-06-20 [facility], Ang - Db [facility] 1.2.840.1 14 [id number] [facility] 12:00:00 12:14:16 Visit Emre Gan 350.1.13.10 ity of [place] 4.2.7.2.686 Scooter as PITO?BLEA [phone] [address] OFFICE [facility] 2022-06-20 2022-06-20 [facility], Ang [facility] 1.2.840.1 14 [id number] [facility] 12:00:00 12:14:16 Visit Emre Gan 350.1.13.10 ity of [place] 4.2.7.2.686 Scooter as PITO?BLEA [id number] [address] OFFICE [facility] 2022-06-20 2022-06-20 Outpatient R ELVIA, [facility] [id number] Univers 11:30:00 11:47:22 EMRE ity [facility] 2022-06-20 2022-06-20 Office [facility] 1.2.840.114 [id number] Univers 11:30:00 11:47:22 Visit Emre CALHOUN 350.1.13.10 it y of [place] 4.2.7.2.686 Scooter as PITO?BLEA [id number] [address] OFFICE [facility] 2022-06-20 2022-06-20 Outpatient R SENDYCAROLA, [facility] [id number] Univers 11:30:00 11:47:22 EMRE ity [facility] 2022-06-20 2022-06-20 Office [facility] 1.2.840.114 [id number] Univers 11:30:00 11:47:22 Visit Emre CALHOUN 350.1.13.10 it y of [place] 4.2.7.2.686 Scooter as PITO?BLEA [phone] Me noel FORD[address] MEDICAL OFFICE [facility] 2022-06-20 2022-06-20 Outpatient R ELVIA [facility] [id number] Univers 11:30:00 11:47:22 EMRE gant [facility] 2022-06-20 2022-06-20 Letter [facility] 1.2.840.114 [id number] Univers 00:00:00 00:00:00 (Out) Emre HEALTH 350.1.13.10 it y of [place] 4.2.7.2.686 Scooter as PITO?BLEA [phone] Wy noel SMITH [address] [place] [address] OFFICE [facility] 2022-06-20 2022-06-20 Telephone [facility] 1.2.276.096 [id number] Univers 00:00:00 00:00:00 Emre HEALTH 350.1.13.10 it y of [place] 4.2.7.2.686 Scooter as PITO?BLEA [phone] Wy noel [address] OFFICE [facility] 2022-06-20 2022-06-20 Telephone [facility] 1.2.622.862 [id number] Univers 00:00:00 00:00:00 Emre HEALTH 350.1.13.10 it y of [place] 4.2.7.2.686 Scooter as PITO?BLEA [id number] Wy noel [address] MEDICAL OFFICE [facility] 2022-05-28 2022-05-28 Elva Verduzco [facility] 1.2.840.114 [id number] Univers 12:00:00 12:00:00 Care Kateryna HEALTH 350.1.13.10 it y of [place] 4.2.7.2.686 Scooter as PITO?BLEA [id number] [address] OFFICE [facility] 2022-05-28 2022-05-28 Elva [facility] 1.2.840.114 [id number] Univers 12:00:00 12:00:00 Care Kateryna HEALTH 350.1.13.10 it y of [place] 4.2.7.2.686 Scooter as PITO?BLEA [phone] [address] MEDICAL OFFICE [facility] 2022-05-28 2022-05-28 Outpatient R GAMAL [facility] [id number] Univers 12:00:00 11:55:15 KATERYNA nakul [facility] 2022-05-20 2022-05-20 Outpatient R ONEILBELENRe [facility] [id number] Univers 20:40:00 20:40:00 BEBETO gant [facility] 2022-05-12 2022-05-12 Moi [facility] 1.2.840.114 [id number] Univers 00:00:00 00:00:00 Emre HEALTH 350.1.13.10 it y of [place] 4.2.7.2.686 Scooter as PITO?BLEA [phone] Wy noel SMITH [address] [place] [address] OFFICE [facility] 2022-04-29 2022-04-29 Urgent Yazmin [facility] 1.2.840.114 [id number] Univers 12:00:00 12:20:00 Care Bebeto HEALTH 350.1.13.10 it y of [place] 4.2.7.2.686 Scooter as PITO?BLEA [id number] Wy noel SMITH [address] [facility] OFFICE [facility] 2022-04-29 2022-04-29 Outpatient R YAZMIN [facility] [id number] Univers 12:00:00 12:00:00 BEBETO nakul [facility] 2022-04-04 2022-04-04 [facility]i [facility] 1.2.840.114 [id number] Univers 00:00:00 00:00:00 Emre HEALTH 350.1.13.10 it y of [place] 4.2.7.2.686 Scooter as PITO?BLEA [phone] Wy noel SMITH [address] [facility] OFFICE [facility] 2022-03-28 2022-03-28 Urgent Jama Lee [facility] 1.2.840. 114 [id number] Univers 16:20:00 16:40:00 Jena VerduzcoKateryna HEALTH 350.1.13.10 ity of [place] 4.2.7.2.686 Scooter as PITO?BLEA [phone] Wy noel SMITH [address] [facility] OFFICE BUILDING 2022-03-28 2022-03-28 Outpatient R ROSA [facility] [id number] Univers 16:20:00 16:20:00 JAMA edwardsnakul chaim f [facility] 2022-03-21 2022-03-21 Orders Doctor JEFFERY 1.2.840.114 [id number] Univers 00:00:00 00:00:00 Only Unassigned, GABO 350.1.13.10 ity of [place] [facility] 4.2.7.2.686 Scooter as [phone] [address] 2022-03-03 2022-03-03 Refjose [facility] 1.2.840.114 [id number] Univers 00:00:00 00:00:00 Luis Miguel HEALTH 350.1.13.10 it y of [place] 4.2.7.2.686 Scooter as PITO?BLEA [id number] [address] OFFICE [facility] 2022-02-02 2022-02-02 Khoi [facility] 1.2.536.664 [id number] Univers 00:00:00 00:00:00 Emre HEALTH 350.1.13.10 it y of [place] 4.2.7.2.686 Scooter as PITO?BLEA [id number] [address] OFFICE [facility] 2022-01-28 2022-01-[address] [facility] [id number] Univers 11:30:00 11:30:00 EMRE gant [facility] 2022-01-28 2022-01-[address] [facility] [id number] Univers 11:30:00 11:30:00 EMRE gant [facility] 2022-01-05 2022-01-05 Urgent Bebeto Arce [facility] 1.2.840.114 [id number] Univers 13:20:00 13:20:00 Heide Ruiz [facility] 350.1.13.10 ity of [place] 4.2.7.2.686 Scooter as PITO?BLEA [phone] [facility] [address] MEDICAL OFFICE BUILDING 2022-01-05 2022-01-05 Outpatient R GREEN, [facility] [id number] Univers 13:20:00 10:49:31 HEIDE ity of [facility] 2022-01-05 2022-01-05 Letter Provider, [facility] 1.2.753.601 [id number] Univers 00:00:00 00:00:00 (Out) Ang Db HEALTH 350.1.13.10 it y of Urgent [facility] [place] 4.2.7.2.686 [place] PITO?BLEA [id number] [address] OFFICE [facility] 2022-01-05 2022-01-05 Telephone Yazmin [facility] 1.2.840.114 [id number] Univers 00:00:00 00:00:00 Rania HEALTH 350.1.13.10 [facility] 4.2.7.2.686 Scooter as PITO?BLEA [id number] [address] OFFICE [facility] 2022-01-04 2022-01-04 Orders Doctor JEFFERY 1.2.840.114 [id number] Univers 00:00:00 00:00:00 Only Unassigned, GABO 350.1.13.10 ity of [place] [facility] 4.2.7.2.686 Scooter as [phone] [address] 2021-12-31 2021-12-31 Telephone [facility] 1.2.944.373 [id number] Univers 00:00:00 00:00:00 Emre HEALTH 350.1.13.10 it y of [place] 4.2.7.2.686 Scooter as PITO?BLEA [id number] [address] OFFICE [facility] 2021-12-31 2021-12-31 Telephone [facility] 1.2.786.497 [id number] Univers 00:00:00 00:00:00 Emre HEALTH 350.1.13.10 it y of [place] 4.2.7.2.686 Scooter as PITO?BLEA [id number] [address] OFFICE [facility] 2021-12-30 2021-12-30 Outpatient R ELVIA [facility] [id number] Univers 11:00:00 11:00:00 EMRE ity [facility] 2021-12-30 2021-12-30 Outpatient R ELVIA [facility] [id number] Univers 11:00:00 11:00:00 EMRE gant [facility] 2021-12-28 2021-12-[address] [facility] [id number] Univers 11:30:00 12:26:05 EMRE gant [facility] 2021 2021 Telephone [facility] 1.2.226.831 [id number] Univers 00:00:00 00:00:00 Emre CALHOUN 350.1.13.10 it y of [place] 4.2.7.2.686 Scooter as PITO?BLEA [id number] [address] OFFICE [facility] 2021-11-04 2021-11-04 Outpatient R BELKIS [facility] [id number] Univers 11:30:00 11:30:00 CHRISTOPHER stalin [facility] 2021-11-02 2021-11-02 [facility], Ang - Db [facility] 1.2.840.1 14 [id number] Univers 16:30:00 16:45:00 Visit Emre Gan 350.1.13.10 [facility] 4.2.7.2.686 Scooter as PITO?BLEA [id number] [address] OFFICE [facility] 2021-11-02 2021-11-[address] [facility] [id number] Univers 15:00:00 16:27:02 EMRE gant [facility] 2021-11-02 2021-11-02 Office [facility] 1.2.840.114 [id number] Univers 15:00:00 16:27:02 Visit Emre CALHOUN 350.1.13.10 it y of [place] 4.2.7.2.686 Scooter as PITO?BLEA [id number] [address] OFFICE [facility] 2021-10-19 2021-10-19 Telephone [place] .2.840.114 [id number] Univers 00:00:00 00:00:00 Demetri Hyde HEALTH 350.1.13.10 i ty [place] [id number] [address] 2021-10-18 2021-10-18 Outpatient R DEMETRI LAKE [facility] 10 [id number] Univers 13:45:00 15:41:27 DEMETRI LA[place] i ty [facility] 2021-10-18 2021-10-18 [facility] 1.2.840.114 [id number] [facility] 13:45:00 15:41:27 Visit FredyKimberlynt Braeden Hyde HEALTH 350.1.13.10 ity [place] [id number] [address] 2021-10-18 2021-10-18 Office Aldo [facility] 1.2.840.114 [id number] [facility] 13:45:00 15:41:27 Visit FredyKimberlynt Braeden Hyde HEALTH 350.1.13.10 ity [place] [id number] [address] 2021-10-18 2021-10-18 Outpatient R RFEDYKIMBERLYNT [facility] 10 [id number] [facility] 13:45:00 15:41:27 DEMETRI [place] i ty [facility] 2021-10-13 2021-10-13 Telephone [facility] 1.2.208.513 [id number] [facility] 00:00:00 00:00:00 Emre HEALTH 350.1.13.10 it y of [place] 4.2.7.2.686 Scooter as PITO?BLEA [id number] [address] OFFICE [facility] 2021-10-05 2021-10-05 Office [facility] 1.2.840.114 [id number] Univers 10:30:00 11:13:32 Visit Emer HEALTH 350.1.13.10 it y of [place] 4.2.7.2.686 Scooter as PITO?BLEA [id number] [address] OFFICE [facility] 2021-10-05 2021-10-05 Outpatient R ELVIA [facility] [id number] Univers 10:30:00 11:13:32 EMRE gant [facility] 2021-10-05 2021-10-05 Outpatient R ELVIA [facility] [id number] Univers 10:30:00 10:30:00 EMRE gant [facility] 2021-10-05 2021-10-05 Outpatient R ELVIA [facility] [id number] Univers 10:30:00 10:30:00 EMRENAVEED gant [facility] 2021-10-04 2021-10-04 Telephone [facility] 1.2.938.585 [id number] Univers 00:00:00 00:00:00 Emre HEALTH 350.1.13.10 it y of [place] 4.2.7.2.686 Scooter as PITO?BLEA [id number] [address] OFFICE [facility] 2021-09-27 2021-09-27 [facility], Ang - [facility] 1.2.840.1 14 [id number] Univers 10:30:00 10:45:00 Visit Emre Gan 350.1.13.10 ity of [place] 4.2.7.2.686 Scooter as PITO?BLEA [id number] [address] OFFICE [facility] 2021-09-27 2021-09-27 Outpatient R ELVIA [facility] [id number] Univers 10:30:00 10:30:00 EMRE gant [facility] 2021-09-27 2021-09-27 Telephone [facility] 1.2.783.750 [id number] Univers 00:00:00 00:00:00 Emre HEALTH 350.1.13.10 it y of [place] 4.2.7.2.686 Scooter as PITO?BLEA [id number] [address] OFFICE [facility] 2021-09-24 2021-09-24 Outpatient R ELVIA [facility] [id number] Univers 16:30:00 17:11:50 EMRE gant [facility] 2021-09-24 2021-09-24 Office [facility] 1.2.840.114 [id number] Univers 16:30:00 17:11:50 Visit Emre CALHOUN 350.1.13.10 it y [place] 4.2.7.2.686 Scooter as PITO?BLEA [id number] [address] OFFICE [facility] 2021-09-24 2021-09-[address] [facility] [id number] Univers 16:30:00 17:11:50 EMRE gant [facility] 2021-09-06 2021-09-06 [facility] 1.2.840.114 [id number] Univers 13:07:39 14:01:08 Visit Emre [facility] 350.1.13.10 it y of [place] 4.2.7.2.686 Scooter as PITO?BLEA [id number] [address] OFFICE [facility] 2021-09-06 2021-09-[address] [facility] [id number] Univers 13:00:00 14:01:08 EMRE gant [facility] 2021-09-06 2021-09-[address] [facility] [id number] Univers 13:00:00 13:00:00 EMRE nakul [facility] 2021-09-06 2021-09-06 Orders Doctor JEFFERY 1.2.840.114 [id number] Univers 00:00:00 00:00:00 Only Unassigned, GABO 350.1.13.10 ity of [place] [facility] 4.2.7.2.686 Scooter as [id number] [address] 2021-02-06 2021-02-[address] [facility] [id number] Univers 13:10:00 13:10:00 SHERIF stalin [facility] 2021-01-16 2021-01-16 Outpatient [facility] [id number] Univers 13:10:00 13:10:00 [facility] Results Test Description Test Time Test Comments Results Result Comments Source POCT HEMOGLOBIN A1C TEST 2022-08-04 21:00:00 Test Item Value Reference Range Interpretation Comme nts POCT HBA1C (test code = 4548-4) 12.1 % 4-6 A Lab Interpretation (test code = 94150-7) [facility]normal [facility] [id number] 21:00:00 Test Item Value Reference Range Interpretation Comments POCT HBA1C (test code = 4548-4) 12.1 % 4-6 A Lab Interpretation (test code = Abnormal 16547-7) [facility]
[2023-04-12 01:36] LABS: Specific Gravity 1.029 (1.005-1.030); Urine Bacteria None Seen /HPF (<20); Urine Bilirubin NEGATIVE (Negative); Urine Blood Negative (Negative); Urine Clarity Clear (Clear); Urine Color Light-Yellow (Yellow); Urine Glucose 3+ (Negative); Urine Mucus Slight /HPF (None Seen); Urine Protein 1+ (Negative); Urine RBC <5 /HPF (None Seen); Urine Urobilinogen Normal (Normal); Urine pH 5.5 (5.0-7.0)
[2023-04-12 02:09] LABS: Absolute Lymphocytes (CBC) 3.1 K/uL (0.7-4.9); Hematocrit 44.6 % (39.6-49.0); Lymphocytes % 31.5 % (15.3-44.8); MCV 89.2 fL (80-100)
[2023-04-12 02:27] LABS: Albumin 4.2 g/dL (3.4-5.0); Bilirubin Total 0.4 mg/dL (0.2-1.0); Potassium 3.9 mEq/L (3.5-5.1); Protein, Total 7.8 g/dL (6.4-8.2)
[2023-04-12] MEDS ORDERED: DICYCLOMINE HCL 10 MG CAP ONE (02:32)
[2023-04-12] MEDS ORDERED: ONDANSETRON 4 MG/2 ML VIAL ONE (02:32)
[2023-04-12] MEDS ORDERED: DIPHENOX/ATROP SULF 1 TAB PO ONE (02:32)
[2023-04-12] MEDS ORDERED: NA CHLORIDE 0.9% 1,000 ML ONE (02:32)
--- NOTE | 2023-04-12 04:26 | ER ---
Nurse's Notes [facility] Name: Sergio Hilton Age: 22 yrs Sex: Male : 2000 Arrival Date: 04/11/2023 Time: 23:53 Bed 27 Private MD: Diagnosis: Other specified noninfective gastroenteritis and colitis;Acute gastroenteritis Presentation: 04/12 00:08 Chief complaint: Patient states: States "I had 2 episodes of vomiting and 1 episode of ll3 diarrhea, it happened right after I took my insulin shot, I started a new insulin today", states symptoms began 30 mins [employer]. Coronavirus screen: Vaccine status: Patient reports receiving the 2nd dose of the covid vaccine. At this time, the client does not indicate any symptoms associated with coronavirus-19. Ebola Screen: No symptoms or risks identified at this time. Initial Sepsis Screen: Does the patient meet any 2 criteria? No. Patient's initial sepsis screen is negative. Does the patient have a suspected source of infection? No. Patient's initial sepsis screen is negative. Risk Assessment: Do you want to hurt yourself or someone else? Patient reports no desire to harm self or others. Onset of symptoms was April 12, 2023. 00:08 Method Of Arrival: Ambulatory ll3 00:08 Acuity: YURI 3 ll3 Triage Assessment: 00:10 General: Appears comfortable, Behavior is calm, cooperative. Pain: Denies pain. GI: ll3 Abdomen is round non-distended, Reports diarrhea, nausea, vomiting. Derm: Skin is pink, warm \\T\\ dry. Historical: - Allergies: 00:10 Latex, Natural Rubber; ll3 - Home Meds: 00:10 Lantus Sub-Q [Active]; metformin 500 mg Oral tab [Active]; Glipizide Oral [Active]; ll3 citalopram oral [Active]; Trazodone Oral [Active]; - PMHx: 00:10 Leukemia; Irritable bowel syndrome; Diabetes - NIDDM; Bipolar disorder; ll3 - PSHx: 00:10 Appendectomy; ll3 - Immunization history:: Client reports receiving the 2nd dose of the Covid vaccine. - Social history:: Smoking status: Patient denies any tobacco usage or history of. - Family history:: not pertinent. Screenin:28 [facility] ED Fall Risk Assessment (Adult) History of falling in the last 3 months, kd3 including since admission No falls in past 3 months (0 pts) Confusion or Disorientation No (0 pts) Intoxicated or Sedated No (0 pts) Impaired Gait No (0 pts) Mobility Assist Device Used No (0 pt) Altered Elimination No (0 pt) Score/Fall Risk Level 0 - 2 = Low Risk Maintained a safe environment. Abuse screen: Denies threats or abuse. Denies injuries from another. Nutritional screening: No deficits noted. Tuberculosis screening: No symptoms or risk factors identified. Assessment: 02:28 General: Appears uncomfortable, Behavior is calm, cooperative. Pain: Denies pain. GI: kd3 Reports bloating, diarrhea, gaseousness, nausea. 03:49 GI: Abdomen is non-distended. kd3 03:49 General: Appears in no apparent distress. Behavior is calm, cooperative. Neuro: Level kd3 of Consciousness is awake, alert, obeys commands, Oriented to person, place, time, situation. Vital Signs: 00:08 BP 133 / 100; Pulse 86; Resp 17; Temp 98.1(O); Pulse Ox 99% on R/A; Weight 71.67 kg ll3 (R); Height 5 ft. 5 in. (R); Pain 0/10; 02:29 BP 119 / 88; Pulse 82; Resp 19; Pulse Ox 98% on R/A; kd3 02:45 BP 119 / 87; Pulse 83; Resp 18; Pulse Ox 99% on R/A; kd3 03:49 BP 112 / 84; Pulse 76; Resp 19; Pulse Ox 99% on R/A; kd3 00:08 Body Mass Index 26.29 (71.67 kg, 165.1 cm) ll3 00:08 Pain Scale: Adult ll3 ED Course: 04/11 23:56 Patient arrived in ED. jj6 04/12 00:10 Triage completed. ll3 00:10 Arm band placed on Patient placed in waiting room, Patient notified of wait time. ll3 01:02 Urine W/Microscopic (UAM) Sent. ll3 01:33 Heron Kwon MD is Attending Physician. sp4 02:17 Debra Padron, JOEL is Primary Nurse. kd3 02:27 CMP Sent. ah1 02:27 Lipase Sent. ah1 02:27 Inserted saline lock: 20 gauge in right antecubital area, using aseptic technique. 1 Blood collected. 02:29 Patient has correct armband on for positive identification. kd3 04:47 No provider procedures requiring assistance completed. IV discontinued, intact, kd3 bleeding controlled, No redness/swelling at site. Pressure dressing applied. Administered Medications: 02:28 Drug: NS 0.9% IV 1000 ml Route: IV; Rate: 1 bolus; Site: right antecubital; kd3 04:47 Follow up: Response: No adverse reaction; IV Status: Completed infusion; IV Intake: kd3 1000ml 02:28 Drug: Ondansetron IVP 4 mg Route: IVP; Site: right antecubital; kd3 04:47 Follow up: Response: No adverse reaction kd3 02:28 Drug: Diphenoxylate-Atropine PO 2 tabs Route: PO; kd3 04:47 Follow up: Response: No adverse reaction kd3 02:28 Drug: Dicyclomine PO 20 mg Route: PO; kd3 04:48 Follow up: Response: No adverse reaction kd3 Medication: 02:29 VIS not applicable for this client. kd3 Intake: 04:47 IV: 1000ml; Total: 1000ml. kd3 Outcome: 04:26 Discharge ordered by . sp4 04:47 Discharged to home ambulatory. kd3 04:47 Condition: stable 04:47 Discharge instructions given to patient, Instructed on discharge instructions, follow up and referral plans. Demonstrated understanding of instructions, follow-up care, medications, Prescriptions given X 2. 04:48 Patient left the ED. kd3 Signatures: Ivett Elena Lynsea, RN RN 3 Debra Padron RN RN kd3 Heron Kwon MD MD sp4 Alexandr Fine [facility]
--- NOTE | 2023-04-12 04:26 | EDPHYS ---
Physician Documentation [facility] Name: Sergio Hilton Age: 22 yrs Sex: Male : 2000 Arrival Date: 04/11/2023 Time: 23:53 Bed 27 Private MD: ED Physician Heron Kwon HPI: 04/12 01:33 This 22 yrs old Male presents to ER via Ambulatory with complaints of sp4 Nausea/Vomiting/Diarrhea. 04:22 22-year-old male with past medical history of type 2 diabetes, presents with nausea sp4 vomiting and diarrhea starting at 8:30 PM. Patient states that 8:30 PM he took his regular Lantus and developed vomiting 2 episodes and 2 episodes of watery diarrhea. Diarrhea was nonbloody. Patient denied any abdominal pain. Historical: - Allergies: 00:10 Latex, Natural Rubber; ll3 - Home Meds: 00:10 Lantus Sub-Q [Active]; metformin 500 mg Oral tab [Active]; Glipizide Oral [Active]; ll3 citalopram oral [Active]; Trazodone Oral [Active]; - PMHx: 00:10 Leukemia; Irritable bowel syndrome; Diabetes - NIDDM; Bipolar disorder; ll3 - PSHx: 00:10 Appendectomy; ll3 - Immunization history:: Client reports receiving the 2nd dose of the Covid vaccine. - Social history:: Smoking status: Patient denies any tobacco usage or history of. - Family history:: not pertinent. ROS: 04:22 Constitutional: Negative for fever, chills, and weight loss, Eyes: Negative for injury, sp4 pain, redness, and discharge, ENT: Negative for injury, pain, and discharge, Neck: Negative for injury, pain, and swelling, Cardiovascular: Negative for chest pain, palpitations, and edema, Respiratory: Negative for shortness of breath, cough, wheezing, and pleuritic chest pain, Abdomen/GI: Negative for abdominal pain, and constipation, positive for nausea, vomiting, diarrhea. Back: Negative for injury and pain, : Negative for injury, bleeding, discharge, and swelling, MS/Extremity: Negative for injury and deformity, Skin: Negative for injury, rash, and discoloration, Neuro: Negative for headache, weakness, numbness, tingling, and seizure, Psych: Negative for depression, anxiety, Allergy/Immunology: Negative for hives, rash, and allergies Endocrine: Negative for neck swelling, polydipsia, polyuria, polyphagia, and weight changes Hematologic/Lymphatic: Negative for swollen nodes, abnormal bleeding, and unusual bruising Exam: 04:22 Constitutional: This is a well developed, well nourished patient who is awake, alert, sp4 and in no acute distress. Head/Face: Normocephalic, atraumatic. Eyes: Pupils equal round and reactive to light, extra-ocular motions intact. Lids and lashes normal. Conjunctiva and sclera are not injected. Cornea within normal limits. Periorbital areas with no swelling, redness, or edema. ENT: Nares patent. No nasal discharge, no septal abnormalities noted. Tympanic membranes are normal and external auditory canals are clear. Oropharynx with no redness, swelling, or masses, exudates, or evidence of obstruction, uvula midline. Mucous membranes moist. Neck: Trachea midline, no thyromegaly or masses palpated, and no cervical lymphadenopathy. Supple, full range of motion without nuchal rigidity, or vertebral point tenderness. Chest/axilla: Normal chest wall appearance and motion. Nontender with no deformity. No lesions are appreciated. Cardiovascular: Regular rate and rhythm with a normal S1 and S2. No gallops, murmurs, or rubs. Normal PMI, no JVD. No pulse deficits. Respiratory: Lungs have equal breath sounds bilaterally, clear to auscultation and percussion. No rales, rhonchi or wheezes noted. No increased work of breathing, no retractions or nasal flaring. Abdomen/GI: Soft, non-tender, with normal bowel sounds. No distension or tympany. No guarding or rebound. No evidence of tenderness throughout. Back: No spinal tenderness. No costovertebral tenderness. Skin: Warm, dry with normal turgor. Normal color with no rashes, no lesions, and no evidence of cellulitis. MS/ Extremity: Pulses equal, no cyanosis. Neurovascular intact. Full, normal range of motion. Neuro: Awake and alert, GCS 15, oriented to person, place, time, and situation. Cranial nerves II-XII grossly intact. Motor strength 5/5 in all extremities. Sensory grossly intact. Psych: Awake, alert, with orientation to person, place and time. Behavior, mood, and affect are within normal limits Vital Signs: 00:08 BP 133 / 100; Pulse 86; Resp 17; Temp 98.1(O); Pulse Ox 99% on R/A; Weight 71.67 kg ll3 (R); Height 5 ft. 5 in. (R); Pain 0/10; 02:29 BP 119 / 88; Pulse 82; Resp 19; Pulse Ox 98% on R/A; kd3 02:45 BP 119 / 87; Pulse 83; Resp 18; Pulse Ox 99% on R/A; kd3 03:49 BP 112 / 84; Pulse 76; Resp 19; Pulse Ox 99% on R/A; kd3 00:08 Body Mass Index 26.29 (71.67 kg, 165.1 cm) ll3 00:08 Pain Scale: Adult ll3 MDM: 01:40 Patient medically screened. sp4 04:22 Differential diagnosis: gastritis, pancreatitis, diverticulitis, viral gastroenteritis, sp4 gastroenteritis. Data reviewed: vital signs, nurses notes, lab test result(s), amylase and lipase, CBC, electrolytes, hepatic panel, urinalysis. Consideration of Admission/Observation Escalation of care including admission/observation considered. ED course: Work-up unremarkable today, patient improved after medications, patient stable for discharge home. Will advise clear liquid diet for next 24 hours, bedrest for 24 hours, Lomotil and ondansetron as needed for diarrhea and nausea. 04/12 00:45 Order name: Urine W/Microscopic (UAM); Complete Time: 04:20 snw 04/12 01:09 Order name: Glucose, Ancillary Testing; Complete Time: 04:20 EDMS 04/12 01:46 Order name: CBC with Diff; Complete Time: 04:20 sp4 04/12 01:46 Order name: CMP; Complete Time: 04:20 sp4 04/12 01:46 Order name: Lipase; Complete Time: 04:20 sp4 04/12 00:45 Order name: FSBS; Complete Time: 00:57 snw 04/12 01:46 Order name: IV Saline Lock; Complete Time: 02:27 sp4 04/12 01:46 Order name: Labs collected and sent; Complete Time: 02:27 sp4 Administered Medications: 02:28 Drug: NS 0.9% IV 1000 ml Route: IV; Rate: 1 bolus; Site: right antecubital; kd3 04:47 Follow up: Response: No adverse reaction; IV Status: Completed infusion; IV Intake: kd3 1000ml 02:28 Drug: Ondansetron IVP 4 mg Route: IVP; Site: right antecubital; kd3 04:47 Follow up: Response: No adverse reaction kd3 02:28 Drug: Diphenoxylate-Atropine PO 2 tabs Route: PO; kd3 04:47 Follow up: Response: No adverse reaction kd3 02:28 Drug: Dicyclomine PO 20 mg Route: PO; kd3 04:48 Follow up: Response: No adverse reaction kd3 Disposition Summary: 04/12/23 04:26 Discharge Ordered Location: Home sp4 Problem: new sp4 Symptoms: have improved sp4 Condition: Stable sp4 Diagnosis - Other specified noninfective gastroenteritis and colitis sp4 - Acute gastroenteritis sp4 Followup: sp4 - With: Private Physician - When: 7 - 10 days - Reason: Recheck today's complaints Discharge Instructions: - Discharge Summary Sheet sp4 - Viral Gastroenteritis, Adult, [id number] sp4 Forms: - Work release form kd3 - Family Work Release kd3 - [email or web address] sp4 Prescriptions: - Zofran 4 mg Oral Tablet - take 1 tablet by ORAL route every 6 hours As needed PRN nausea; 30 tablet; sp4 Refills: 0, Product Selection Permitted - Lomotil 2.5-0.025 mg Oral Tablet - take 1 tablet by ORAL route every 6 hours As needed PRN diarrhea; 30 tablet; sp4 Refills: 0, Product Selection Permitted Signatures: Dispatcher [employer] EDMS Belle Brewer, GROCERY STOCK CLERK-C GROCERY STOCK CLERK-Satinderw Perez Bruno RN RN [email or web address] Debra Padron RN RN kd3 Heron Kwon MD MD sp4 Corrections: (The following items were deleted from the chart) 01:03 00:46 Test, Urine+[email or web address] ordered. EDMS EDMS
[2023-04-12 05:15] VITALS: TEMP 98.1
[2023-04-12 05:16] VITALS: O2SAT 99
[2023-04-12 05:17] VITALS: BP 112/84
== END 2023-04-12 04:48 | disposition home or self-care (01) ==
LOC: ER 23:53
DX: K52.89 Other specified noninfective gastroenteritis and colitis (principal); E11.9 Type 2 diabetes mellitus without complications; Z79.4 Long term (current) use of insulin; Z91.040 Latex allergy status; Z91.048 Other nonmedicinal substance allergy status
CPT/HCPCS: 96361; 85025; 81001; 36415; 82947; 83690; 80053; 96374; 99284; J2405; J7030

== ENCOUNTER 2023-05-08 19:13 | Emergency (ER) | payer OTHER ==
--- OUTSIDE RECORDS SUMMARY | 2023-05-08 19:27 | XMS REPORT | Continuity of Care Document ---
:2000 Author Organization [facility] t Address [address] [place] [id number] Care Team Providers Name Role Phone Emre Nieves Primary Care Physician JOSE CHIRINOS Attending Clinician Unavailable EMRE GAN Attending Clinician Unavailable RICHARD CRUZ Attending Clinician Unavailable Richard Cruz MD Attending Clinician Emre Nieves Attending Clinician Doctor Unassigned, Rebecca Attending Clinician Unavailable Lab, Ang - Db Attending Clinician Unavailable MELLY BARBER Attending Clinician Unavailable Melly Guzman Attending Clinician ROSEANNE LEVINE Attending Clinician Unavailable [...] Type Policy Number Effective Date Expiration Date Aquiles nathan [facility] [id number] 2022 PLUS 00:00:00 [facility] [id number] [address] [facility] MEDICAID 00:00:00 Problems Condition Condition Condition [...] different from the original. ICD10 Diagnosis Term Manager Product Management Utility Leukemia Leukemia Disease Active Unive rs [...] touches Branch LATEX DRUG Active Med Rash 2011-0 Univers INGREDI 5-18 ity of 00:00: [place] 00 Medical Branch Pegaspar Propensi Active Hives Pre-medic Uni vers gase ty to 2-25 ate ity of adverse 00:00: peg-aspar [place] reaction 00 aginase Medical s with Branch diphenhyd ramine PEGASPAR DRUG Active Low Hives Univers GASE INGREDI 2-25 ity of 00:00: [address] Social History Social Habit Start Date Stop Date Quantity Comments Source History of tobacco Passive smoker Un iversity of use [facility] Gender identity Universit y of [facility] Sexual orientation Univer sity of [facility] Alcohol intake 2023-04-21 2023-04-21 Current University of 00:00:00 00:00:00 non-drinker of [facility] alcohol [place] (finding) Exposure to 2023-03-14 2023-03-24 Not sure [facility] SARS-CoV-2 (event) 00:00:00 09:25:00 [facility] History of Social 2023-03-24 2023-03-24 Univers ity of function 00:00:00 00:00:00 [facility] Tobacco use and 2022-06-20 2022-06-20 Smokeless Universit y of exposure 00:00:00 00:00:00 tobacco non-user [facility] Tobacco Comment 2022-06-20 2022-06-20 Family smokes Univer sity of 00:00:00 00:00:00 outside [facility] Sex Assigned At 2000 2000 Universit y of 00:00:00 00:00:00 [facility] Smoking Status Start Date Stop Date Source Never smoked tobacco [facility] Medications Ordered Filled Start Stop Current Ordering Indication Dosage Frequency Signature Comments Components Source Medication Medication Date Date Medication? Clinician (SIG) Name Name Insulin Yes [id number] 15U inject 15 Univers Glargine 7-14 Units ity of (LANTUS 00:00: under the [facility] 00 skin in Medical U-100 the Branch INSULIN) morning 100 unit/mL and 15 (3 mL) Units in injection the evening. Insulin Yes [id number] 15U inject 15 Univers Glargine 7-14 Units ity of (LANTUS 00:00: under the [facility] 00 skin in Medical U-100 the Branch INSULIN) morning 100 unit/mL and 15 (3 mL) Units in injection the evening. Insulin 2022-0 Yes [id number] 15U inject 15 Univers Glargine 7-14 Units ity of (LANTUS 00:00: under the [facility] 00 skin in Medical U-100 the Branch INSULIN) morning 100 unit/mL and 15 (3 mL) Units in injection the evening. semaglutide 2022-0 Yes [id number] .5mg inject 0.5 Univers (OZEMPIC) 7-06 mg under ity of 0.25 mg or 00:00: the skin [place] as 0.5 mg(2 00 weekly. Medical mg/1.5 mL) Branch PnIj semaglutide 2022-0 Yes [id number] .5mg inject 0.5 Univers (OZEMPIC) 7-06 mg under ity of 0.25 mg or 00:00: the skin [place] 0.5 mg(2 00 weekly. Medical mg/1.5 mL) Branch PnIj semaglutide 2022-0 Yes [id number] .5mg inject 0.5 Univers (OZEMPIC) 7-06 mg under ity of 0.25 mg or 00:00: the skin [place] 0.5 mg(2 00 weekly. Medical mg/1.5 mL) Branch PnIj semaglutide 2022-0 Yes [id number] .5mg inject 0.5 Univers (OZEMPIC) 7-06 mg under ity of 0.25 mg or 00:00: the skin [place] 0.5 mg(2 00 weekly. Medical mg/1.5 mL) Branch PnIj semaglutide 2022-0 Yes [id number] .5mg inject 0.5 Univers (OZEMPIC) 7-06 mg under ity of 0.25 mg or 00:00: the skin [place] 0.5 mg(2 00 weekly. Medical mg/1.5 mL) Branch PnIj semaglutide 3-0 Yes [id number] .5mg inject 0.5 Univers (OZEMPIC) 7-06 mg under ity of 0.25 mg or 00:00: the skin [place] 0.5 mg(2 00 weekly. Medical mg/1.5 mL) Branch PnIj Insulin 2023-0 Yes [id number] 15U inject 15 Univers Glargine 6-23 Units ity of (LANTUS 00:00: under the [place] [facility]OSTAR 00 skin in Medical U-100 the Branch INSULIN) morning 100 unit/mL and 15 (3 mL) Units in injection the evening. semaglutide 0 Yes [id number] .25mg inject Univers (OZEMPIC) 6-23 0.25 mg ity of 0.25 mg or 00:00: under the [place] 0.5 mg(2 00 skin Medical mg/1.5 mL) weekly. Branch PnIj Insulin 0 Yes [id number] 15U inject 15 Univers Glargine 6-23 Units ity of (LANTUS 00:00: under the [place] SOLOSTAR 00 skin in Medical U-100 the Branch INSULIN) morning 100 unit/mL and 15 (3 mL) Units in injection the evening. semaglutide 0 Yes [id number] .25mg inject Univers (OZEMPIC) 6-23 0.25 mg ity of 0.25 mg or 00:00: under the [place] 0.5 mg(2 00 skin Medical mg/1.5 mL) weekly. Branch PnIj Insulin 0 Yes [id number] 15U inject 15 Univers Glargine 6-23 Units ity of (LANTUS 00:00: under the [place] SOLOSTAR 00 skin in Medical U-100 the Branch INSULIN) morning 100 unit/mL and 15 (3 mL) Units in injection the evening. semaglutide 0 Yes [id number] .25mg inject Univers (OZEMPIC) 6-23 0.25 mg ity of 0.25 mg or 00:00: under the [place] 0.5 mg(2 00 skin Medical mg/1.5 mL) weekly. Branch PnIj Insulin 0 Yes [id number] 15U inject 15 Univers Glargine 6-23 Units ity of (LANTUS 00:00: under the [place] SOLOSTAR 00 skin in Medical U-100 the Branch INSULIN) morning 100 unit/mL and 15 (3 mL) Units in injection the evening. semaglutide 0 Yes [id number] .25mg inject Univers (OZEMPIC) 6-23 0.25 mg ity of 0.25 mg or 00:00: under the [place] 0.5 mg(2 00 skin Medical mg/1.5 mL) weekly. Branch PnIj Insulin 0 Yes [id number] 15U inject 15 Univers Glargine 6-23 Units ity of (LANTUS 00:00: under the [place] SOLOSTAR 00 skin in Medical U-100 the Branch INSULIN) morning 100 unit/mL and 15 (3 mL) Units in injection the evening. semaglutide 0 Yes [id number] .25mg inject Univers (OZEMPIC) 6-23 0.25 mg ity of 0.25 mg or 00:00: under the [place] 0.5 mg(2 00 skin Medical mg/1.5 mL) weekly. Branch PnIj Insulin 0 Yes [id number] 15U inject 15 Univers Glargine 6-23 Units ity of (LANTUS 00:00: under the [place] SOLOSTAR 00 skin in Medical U-100 the Branch INSULIN) morning 100 unit/mL and 15 (3 mL) Units in injection the evening. semaglutide 0 Yes [id number] .25mg inject Univers (OZEMPIC) 6-23 0.25 mg ity of 0.25 mg or 00:00: under the [place] 0.5 mg(2 00 skin Medical mg/1.5 mL) weekly. Branch PnIj Insulin 0 Yes [id number] 15U inject 15 Univers Glargine 6-23 Units ity of (LANTUS 00:00: under the [place] SOLOSTAR 00 skin in Medical U-100 the Branch INSULIN) morning 100 unit/mL and 15 (3 mL) Units in injection the evening. Insulin 2022-0 Yes [id number] 15U inject 15 Univers Glargine 6-23 Units ity of (LANTUS 00:00: under the [place] SOLOSTAR 00 skin in Medical U-100 the Branch INSULIN) morning 100 unit/mL and 15 (3 mL) Units in injection the evening. Insulin 2022-0 Yes [id number] 15U inject 15 Univers Glargine 6-23 Units ity of (LANTUS 00:00: under the [place] SOLOSTAR 00 skin in Medical U-100 the Branch INSULIN) morning 100 unit/mL and 15 (3 mL) Units in injection the evening. Insulin Yes [id number] 15U inject 15 Univers Glargine 6-23 Units ity of (LANTUS 00:00: under the [place] SOLOSTAR 00 skin in Medical U-100 the [place] INSULIN) morning 100 unit/mL and 15 (3 mL) Units in injection the evening. Insulin 2022- No [id number] 15U inject 15 Univers Glargine 03-31 07-14 Units ity of (LANTUS 00:00: 00:00 under the [facility] s SOLOSTAR 00 :00 skin in Medical U-100 the [place] INSULIN) morning 100 unit/mL and 15 (3 mL) Units in injection the evening. Insulin 2022- No [id number] 15U inject 15 Univers Glargine 03-31 07-14 Units ity of (LANTUS 00:00: [facility] U-100 [facility] INSULIN) morning 100 unit/mL and 15 (3 mL) Units in injection the evening. semaglutide 2022- No [id number] .25mg inject Univers (OZEMPIC) 03-31-06 0.25 mg ity of 0.25 mg or 00:00: 00:00 under the [place] 0.5 mg(2 00 :00 skin Medical mg/1.5 mL) weekly. Branch PnIj semaglutide 2022- No [id number] .25mg inject Univers (OZEMPIC) 03-31-06 0.25 mg ity of 0.25 mg or 00:00: 00:00 under the [place] 0.5 mg(2 00 :00 skin Medical mg/1.5 mL) weekly. Branch PnIj icosapent 0 Yes [id number] 2g Take 2 U nivers ethyL 6-16 capsules ity of (VASCEPA) 1 00:00: by mouth [place] gram 00 in the Medical capsule morning Branch and 2 capsules in the evening. ezetimibe 0 Yes [id number] 10mg Take 1 U nivers 10 mg 6-16 tablet by ity of tablet 00:00: mouth in [place] 00 the Medical morning. Branch rosuvastati 2022-0 Yes [id number] 20mg Take 1 Univers n (CRESTOR) 6-16 tablet by ity of 20 mg 00:00: mouth at [place] tablet 00 bedtime. Medical Branch lisinopriL 2022-0 Yes [id number] 2.5mg Take 1 Univers 2.5 mg 6-16 tablet by ity of tablet 00:00: mouth in [place] 00 the Medical morning. Branch icosapent 2022-0 Yes [id number] 2g Take 2 U nivers ethyL 6-16 capsules ity of (VASCEPA) 1 00:00: by mouth [place] gram 00 in the Medical capsule morning Branch and 2 capsules in the evening. ezetimibe 2022-0 Yes [id number] 10mg Take 1 U nivers 10 mg 6-16 tablet by ity of tablet 00:00: mouth in [place] 00 the Medical morning. Branch rosuvastati 2022-0 Yes [id number] 20mg Take 1 Univers n (CRESTOR) 6-16 tablet by ity of 20 mg 00:00: mouth at [place] tablet 00 bedtime. Medical Branch lisinopriL 2022-0 Yes [id number] 2.5mg Take 1 Univers 2.5 mg 6-16 tablet by ity of tablet 00:00: mouth in [place] 00 the Medical morning. Branch icosapent 2022-0 Yes [id number] 2g Take 2 U nivers ethyL 6-16 capsules ity of (VASCEPA) 1 00:00: by mouth [place] gram 00 in the Medical capsule morning Branch and 2 capsules in the evening. ezetimibe 2022-0 Yes [id number] 10mg Take 1 U nivers 10 mg 6-16 tablet by ity of tablet 00:00: mouth in [place] 00 the Medical morning. Branch rosuvastati 2022-0 Yes [id number] 20mg Take 1 Univers n (CRESTOR) 6-16 tablet by ity of 20 mg 00:00: mouth at [place] tablet 00 bedtime. Medical Branch lisinopriL 2022-0 Yes [id number] 2.5mg Take 1 Univers 2.5 mg 6-16 tablet by ity of tablet 00:00: mouth in [place] 00 the Medical morning. Branch icosapent 2022-0 Yes [id number] 2g Take 2 U nivers ethyL 6-16 capsules ity of (VASCEPA) 1 00:00: by mouth [place] gram 00 in the Medical capsule morning Branch and 2 capsules in the evening. ezetimibe 3-0 Yes [id number] 10mg Take 1 U nivers 10 mg 6-16 tablet by ity of tablet 00:00: mouth in [place] 00 the Medical morning. Branch rosuvastati 3-0 Yes [id number] 20mg Take 1 Univers n (CRESTOR) 6-16 tablet by ity of 20 mg 00:00: mouth at [place] tablet 00 bedtime. Medical Branch lisinopriL 2022-0 Yes [id number] 2.5mg Take 1 Univers 2.5 mg 6-16 tablet by ity of tablet 00:00: mouth in [place] 00 the Medical morning. Branch icosapent 2022-0 Yes [id number] 2g Take 2 U nivers ethyL 6-16 capsules ity of (VASCEPA) 1 00:00: by mouth [place] gram 00 in the Medical capsule morning Branch and 2 capsules in the evening. ezetimibe 2022-0 Yes [id number] 10mg Take 1 U nivers 10 mg 6-16 tablet by ity of tablet 00:00: mouth in [place] 00 the Medical morning. Branch rosuvastati 2022-0 Yes [id number] 20mg Take 1 Univers n (CRESTOR) 6-16 tablet by ity of 20 mg 00:00: mouth at [place] tablet 00 bedtime. Medical Branch lisinopriL 2022-0 Yes [id number] 2.5mg Take 1 Univers 2.5 mg 6-16 tablet by ity of tablet 00:00: mouth in [place] 00 the Medical morning. Branch icosapent 2022-0 Yes [id number] 2g Take 2 U nivers ethyL 6-16 capsules ity of (VASCEPA) 1 00:00: by mouth [place] gram 00 in the Medical capsule morning Branch and 2 capsules in the evening. ezetimibe 3-0 Yes [id number] 10mg Take 1 U nivers 10 mg 6-16 tablet by ity of tablet 00:00: mouth in [place] 00 the Medical morning. Branch rosuvastati 3-0 Yes [id number] 20mg Take 1 Univers n (CRESTOR) 6-16 tablet by ity of 20 mg 00:00: mouth at [place] tablet 00 bedtime. Medical Branch lisinopriL 3-0 Yes [id number] 2.5mg Take 1 Univers 2.5 mg 6-16 tablet by ity of tablet 00:00: mouth in [place] 00 the Medical morning. Branch icosapent 2022-0 Yes [id number] 2g Take 2 U nivers ethyL 6-16 capsules ity of (VASCEPA) 1 00:00: by mouth [place] gram 00 in the Medical capsule morning Branch and 2 capsules in the evening. ezetimibe 2023-0 Yes [id number] 10mg Take 1 U nivers 10 mg 6-16 tablet by ity of tablet 00:00: mouth in [place] 00 the Medical morning. Branch rosuvastati 2022-0 Yes [id number] 20mg Take 1 Univers n (CRESTOR) 6-16 tablet by ity of 20 mg 00:00: mouth at [place] tablet 00 bedtime. Medical Branch lisinopriL 2022-0 Yes [id number] 2.5mg Take 1 Univers 2.5 mg 6-16 tablet by ity of tablet 00:00: mouth in [place] 00 the Medical morning. Branch icosapent 2022-0 Yes [id number] 2g Take 2 U nivers ethyL 6-16 capsules ity of (VASCEPA) 1 00:00: by mouth [place] gram 00 in the Medical capsule morning Branch and 2 capsules in the evening. ezetimibe 2022-0 Yes [id number] 10mg Take 1 U nivers 10 mg 6-16 tablet by ity of tablet 00:00: mouth in [place] 00 the Medical morning. Branch rosuvastati 3-0 Yes [id number] 20mg Take 1 Univers n (CRESTOR) 6-16 tablet by ity of 20 mg 00:00: mouth at [place] tablet 00 bedtime. Medical Branch lisinopriL 2022-0 Yes [id number] 2.5mg Take 1 Univers 2.5 mg 6-16 tablet by ity of tablet 00:00: mouth in [place] 00 the Medical morning. Branch icosapent 2022-0 Yes [id number] 2g Take 2 U nivers ethyL 6-16 capsules ity of (VASCEPA) 1 00:00: by mouth [place] gram 00 in the Medical capsule morning Branch and 2 capsules in the evening. ezetimibe 2023-0 Yes [id number] 10mg Take 1 U nivers 10 mg 6-16 tablet by ity of tablet 00:00: mouth in [place] 00 the Medical morning. Branch rosuvastati 2022-0 Yes [id number] 20mg Take 1 Univers n (CRESTOR) 6-16 tablet by ity of 20 mg 00:00: mouth at [place] tablet 00 bedtime. Medical Branch lisinopriL 2022-0 Yes [id number] 2.5mg Take 1 Univers 2.5 mg 6-16 tablet by ity of tablet 00:00: mouth in [place] 00 the Medical morning. Branch icosapent 2022-0 Yes [id number] 2g Take 2 U nivers ethyL 6-16 capsules ity of (VASCEPA) 1 00:00: by mouth [place] gram 00 in the Medical capsule morning Branch and 2 capsules in the evening. ezetimibe 2022-0 Yes [id number] 10mg Take 1 U nivers 10 mg 6-16 tablet by ity of tablet 00:00: mouth in [place] 00 the Medical morning. Branch rosuvastati 2022-0 Yes [id number] 20mg Take 1 Univers n (CRESTOR) 6-16 tablet by ity of 20 mg 00:00: mouth at [place] tablet 00 bedtime. Medical Branch lisinopriL 2022-0 Yes [id number] 2.5mg Take 1 Univers 2.5 mg 6-16 tablet by ity of tablet 00:00: mouth in [place] 00 the Medical morning. Branch icosapent 2022-0 Yes [id number] 2g Take 2 U nivers ethyL 6-16 capsules ity of (VASCEPA) 1 00:00: by mouth [place] gram 00 in the Medical capsule morning Branch and 2 capsules in the evening. ezetimibe 2022-0 Yes [id number] 10mg Take 1 U nivers 10 mg 6-16 tablet by ity of tablet 00:00: mouth in [place] 00 the Medical morning. Branch rosuvastati 2022-0 Yes [id number] 20mg Take 1 Univers n (CRESTOR) 6-16 tablet by ity of 20 mg 00:00: mouth at [place] tablet 00 bedtime. Medical Branch lisinopriL 2022-0 Yes [id number] 2.5mg Take 1 Univers 2.5 mg 6-16 tablet by ity of tablet 00:00: mouth in [place] 00 the Medical morning. Branch icosapent 2022-0 Yes [id number] 2g Take 2 U nivers ethyL 6-16 capsules ity of (VASCEPA) 1 00:00: by mouth [place] gram 00 in the Medical capsule morning Branch and 2 capsules in the evening. ezetimibe 3-0 Yes [id number] 10mg Take 1 U nivers 10 mg 6-16 tablet by ity of tablet 00:00: mouth in [place] 00 the Medical morning. Branch rosuvastati 2022-0 Yes [id number] 20mg Take 1 Univers n (CRESTOR) 6-16 tablet by ity of 20 mg 00:00: mouth at [place] tablet 00 bedtime. Medical Branch lisinopriL 2022-0 Yes [id number] 2.5mg Take 1 Univers 2.5 mg 6-16 tablet by ity of tablet 00:00: mouth in [place] the Medical morning. Branch icosapent 2022-0 Yes [id number] 2g Take 2 U nivers ethyL 6-16 capsules ity of (VASCEPA) 1 00:00: by mouth [place] gram 00 in the Medical capsule morning Branch and 2 capsules in the evening. ezetimibe 2022-0 Yes [id number] 10mg Take 1 U nivers 10 mg 6-16 tablet by ity of tablet 00:00: mouth in [place] the Medical morning. Branch rosuvastati 2022-0 Yes [id number] 20mg Take 1 Univers n (CRESTOR) 6-16 tablet by ity of 20 mg 00:00: mouth at [place] tablet 00 bedtime. Medical Branch lisinopriL 3-0 Yes [id number] 2.5mg Take 1 Univers 2.5 mg 6-16 tablet by ity of tablet 00:00: mouth in [place] 00 the Medical morning. Branch icosapent 2022-0 Yes [id number] 2g Take 2 U nivers ethyL 6-16 capsules ity of (VASCEPA) 1 00:00: by mouth [place] gram 00 in the Medical capsule morning Branch and 2 capsules in the evening. ezetimibe 2023-0 Yes [id number] 10mg Take 1 U nivers 10 mg 6-16 tablet by ity of tablet 00:00: mouth in [place] 00 the Medical morning. Branch rosuvastati 2023-0 Yes [id number] 20mg Take 1 Univers n (CRESTOR) 6-16 tablet by ity of 20 mg 00:00: mouth at [place] tablet 00 bedtime. Medical Branch lisinopriL 2022-0 Yes [id number] 2.5mg Take 1 Univers 2.5 mg 6-16 tablet by ity of tablet 00:00: mouth in [place] 00 the Medical morning. Branch icosapent 2022-0 Yes [id number] 2g Take 2 U nivers ethyL 6-16 capsules ity of (VASCEPA) 1 00:00: by mouth [place] gram 00 in the Medical capsule morning Branch and 2 capsules in the evening. ezetimibe 2022-0 Yes [id number] 10mg Take 1 U nivers 10 mg 6-16 tablet by ity of tablet 00:00: mouth in [place] 00 the Medical morning. Branch rosuvastati 2022-0 Yes [id number] 20mg Take 1 Univers n (CRESTOR) 6-16 tablet by ity of 20 mg 00:00: mouth at [place] tablet 00 bedtime. Medical Branch lisinopriL 2022-0 Yes [id number] 2.5mg Take 1 Univers 2.5 mg 6-16 tablet by ity of tablet 00:00: mouth in [place] 00 the Medical morning. Branch icosapent 2022-0 Yes [id number] 2g Take 2 U nivers ethyL 6-16 capsules ity of (VASCEPA) 1 00:00: by mouth [place] gram 00 in the Medical capsule morning Branch and 2 capsules in the evening. ezetimibe 2022-0 Yes [id number] 10mg Take 1 U nivers 10 mg 6-16 tablet by ity of tablet 00:00: mouth in [place] 00 the Medical morning. Branch rosuvastati 2022-0 Yes [id number] 20mg Take 1 Univers n (CRESTOR) 6-16 tablet by ity of 20 mg 00:00: mouth at [place] tablet 00 bedtime. Medical Branch lisinopriL 2022-0 Yes [id number] 2.5mg Take 1 Univers 2.5 mg 6-16 tablet by ity of tablet 00:00: mouth in [place] 00 the Medical morning. Branch icosapent 2022-0 Yes [id number] 2g Take 2 U nivers ethyL 6-16 capsules ity of (VASCEPA) 1 00:00: by mouth [place] gram 00 in the Medical capsule morning Branch and 2 capsules in the evening. ezetimibe 2022-0 Yes [id number] 10mg Take 1 U nivers 10 mg 6-16 tablet by ity of tablet 00:00: mouth in [place] 00 the Medical morning. Branch rosuvastati 2022-0 Yes [id number] 20mg Take 1 Univers n (CRESTOR) 6-16 tablet by ity of 20 mg 00:00: mouth at [place] tablet 00 bedtime. Medical Branch lisinopriL 2022-0 Yes [id number] 2.5mg Take 1 Univers 2.5 mg 6-16 tablet by ity of tablet 00:00: mouth in [place] 00 the Medical morning. Branch icosapent 2022-0 Yes [id number] 2g Take 2 U nivers ethyL 6-14 capsules ity of (VASCEPA) 1 00:00: by mouth [place] gram 00 in the Medical capsule morning Branch and 2 capsules in the evening. icosapent 2022- No [id number] 2g Take 2 Univers ethyL 6-14 06-16 capsules ity of (VASCEPA) 1 00:00: 00:00 by mouth [place] gram 00 :00 in the Medical capsule morning Branch and 2 capsules in the evening. icosapent 0 2022- No [id number] 2g Take 2 Univers ethyL 6-14 06-16 capsules ity of (VASCEPA) 1 00:00: 00:00 by mouth [place] gram 00 :00 in the Medical capsule morning Branch and 2 capsules in the evening. ezetimibe 2022-0 Yes [id number] 10mg Take 1 U nivers 10 mg 5-22 tablet by ity of tablet 00:00: mouth in [place] 00 the Medical morning. Branch ezetimibe 2022-0 Yes [id number] 10mg Take 1 U nivers 10 mg 5-22 tablet by ity of tablet 00:00: mouth in [place] 00 the Medical morning. Branch ezetimibe 2022-0 2022- No [id number] 10mg Take 1 Univers 10 mg 5-22 06-16 tablet by ity of tablet 00:00: 00:00 mouth in [place] 00 :00 the Medical morning. Branch ezetimibe 2022-0 2022- No [id number] 10mg Take 1 Univers 10 mg 5-22 06-16 tablet by ity of tablet 00:00: 00:00 mouth in [place] 00 :00 the Medical morning. Branch icosapent 0 Yes [id number] 2g Take 2 U nivers ethyL 4-14 capsules ity of (VASCEPA) 1 00:00: by mouth [place] gram 00 in the Medical capsule morning Branch and 2 capsules in the evening. icosapent Yes [id number] 2g Take 2 U nivers ethyL 4-14 capsules ity of (VASCEPA) 1 00:00: by mouth [place] gram 00 in the Medical capsule morning Branch and 2 capsules in the evening. icosapent Yes [id number] 2g Take 2 U nivers ethyL 4-14 capsules ity of (VASCEPA) 1 00:00: by mouth [place] gram 00 in the Medical capsule morning Branch and 2 capsules in the evening. icosapent 2022- No [id number] 2g Take 2 Univers ethyL 4-14 06-14 capsules ity of (VASCEPA) 1 00:00: 00:00 by mouth [place] gram 00 :00 in the Medical capsule morning Branch and 2 capsules in the evening. rosuvastati Yes [id number] 20mg Take 1 Univers n (CRESTOR) 4-03 tablet by ity of 20 mg 00:00: mouth at [place] tablet 00 bedtime. [facility] Branch rosuvastati Yes [id number] 20mg Take 1 Univers n (CRESTOR) 4-03 tablet by ity of 20 mg 00:00: mouth at [place] tablet 00 bedtime. [facility] Branch rosuvastati 0 Yes [id number] 20mg Take 1 Univers n (CRESTOR) 4-03 tablet by ity of 20 mg 00:00: mouth at [place] tablet 00 bedtime. [facility] Branch rosuvastati 0 Yes [id number] 20mg Take 1 Univers n (CRESTOR) 4-03 tablet by ity of 20 mg 00:00: mouth at [place] tablet 00 bedtime. [facility] Branch rosuvastati 0 Yes [id number] 20mg Take 1 Univers n (CRESTOR) 4-03 tablet by ity of 20 mg 00:00: mouth at [place] tablet 00 bedtime. Medical Branch rosuvastati 3-0 3- No [id number] 20mg Take 1 Univers n (CRESTOR) 4-03 06-16 tablet by it y of 20 mg 00:00: 00:00 mouth at [place] tablet 00 :00 bedtime. Medical Branch rosuvastati 3-0 3- No [id number] 20mg Take 1 Univers n (CRESTOR) 4-03 06-16 tablet by it y of 20 mg 00:00: 00:00 mouth at [place] tablet 00 :00 bedtime. Medical Branch lisinopriL 3-0 Yes [id number] 2.5mg Take 1 Univers 2.5 mg 1-10 tablet by ity of tablet 00:00: mouth in [place] the Medical morning. Branch lisinopriL 3-0 Yes [id number] 2.5mg Take 1 Univers 2.5 mg 1-10 tablet by ity of tablet 00:00: mouth in [place] the Medical morning. Branch lisinopriL 2023-0 Yes [id number] 2.5mg Take 1 Univers 2.5 mg 1-10 tablet by ity of tablet 00:00: mouth in [place] 00 the Medical morning. Branch lisinopriL 3-0 Yes [id number] 2.5mg Take 1 Univers 2.5 mg 1-10 tablet by ity of tablet 00:00: mouth in [place] the Medical morning. Branch lisinopriL 3-0 Yes [id number] 2.5mg Take 1 Univers 2.5 mg 1-10 tablet by ity of tablet 00:00: mouth in [place] the Medical morning. Branch lisinopriL 2023-0 Yes [id number] 2.5mg Take 1 Univers 2.5 mg 1-10 tablet by ity of tablet 00:00: mouth in [place] 00 the Medical morning. Branch lisinopriL 2023-0 3- No [id number] 2.5mg Take 1 Univers 2.5 mg 1-10 06-16 tablet by ity of tablet 00:00: 00:00 mouth in [place] 00 :00 the Medical morning. Branch lisinopriL 2023-0 3- No [id number] 2.5mg Take 1 Univers 2.5 mg 1-10 06-16 tablet by ity of tablet 00:00: 00:00 mouth in [place] 00 :00 the Medical morning. [place] metformin 2021-10 Yes [id number] 750mg Take 1 Univers ER 750 mg 2-30 tablet by ity o f 24 hr 00:00: mouth [place] tablet 00 daily with Medical breakfast. Branch glipiZIDE 2021-10 Yes [id number] 20mg Take 2 U nivers XL 10 mg 24 2-30 tablets by it y of hr tablet 00:00: mouth [place] 00 daily with Medical breakfast. Branch metformin 2021-10 Yes [id number] 750mg Take 1 [facility] ER 750 mg 2-30 tablet by ity o f 24 hr 00:00: mouth [place] tablet 00 daily with Medical breakfast. Branch glipiZIDE 2021-10 Yes [id number] 20mg Take 2 [facility] nivers XL 10 mg 24 2-30 tablets by it y of hr tablet 00:00: mouth [place] 00 daily with Medical breakfast. Branch metformin 2021-10 Yes [id number] 750mg Take 1 [facility] ER 750 mg 2-30 tablet by ity o f 24 hr 00:00: mouth [place] tablet 00 daily with Medical breakfast. Branch glipiZIDE 2021-10 Yes [id number] 20mg Take 2 [facility] n[facility] XL 10 mg 24 2-30 tablets by it y of hr tablet 00:00: mouth [place] 00 daily with Medical breakfast. Branch metformin 2021-10 Yes [id number] 750mg Take 1 [facility] ER 750 mg 2-30 tablet by ity o f 24 hr 00:00: mouth [place] tablet 00 daily with Medical breakfast. Branch glipiZIDE 2021-10 Yes [id number] 20mg Take 2 [facility] nivers XL 10 mg 24 2-30 tablets by it y of hr tablet 00:00: mouth [place] 00 daily with Medical breakfast. [place] metformin 2021-10 Yes [id number] 750mg Take 1 [facility] ER 750 mg 2-30 tablet by ity o f 24 hr 00:00: mouth [place] tablet 00 daily with Medical breakfast. Branch glipiZIDE 2021-10 Yes [id number] 20mg Take 2 [facility] nivers XL 10 mg 24 2-30 tablets by it y of hr tablet 00:00: mouth [place] 00 daily with Medical breakfast. Branch metformin 2021-10 Yes [id number] 750mg Take 1 [facility] ER 750 mg 2-30 tablet by ity o f 24 hr 00:00: mouth [place] tablet 00 daily with Medical breakfast. Branch glipiZIDE 2021-10 Yes [id number] 20mg Take 2 [facility] n[facility] XL 10 mg 24 2-30 tablets by it y of hr tablet 00:00: mouth [place] 00 daily with Medical breakfast. Branch metformin 2021-10 Yes [id number] 750mg Take 1 [facility] ER 750 mg 2-30 tablet by ity o f 24 hr 00:00: mouth [place] tablet 00 daily with Medical breakfast. Branch glipiZIDE 2021-10 Yes [id number] 20mg Take 2 [facility] n[facility] XL 10 mg 24 2-30 tablets by it y of hr tablet 00:00: mouth [place] 00 daily with Medical breakfast. Branch metformin 2021-10 Yes [id number] 750mg Take 1 [facility] ER 750 mg 2-30 tablet by ity o f 24 hr 00:00: mouth [place] tablet 00 daily with Medical breakfast. Branch glipiZIDE 2021-10 Yes [id number] 20mg Take 2 [facility] n[facility] XL 10 mg 24 2-30 tablets by it y of hr tablet 00:00: mouth [place] 00 daily with Medical breakfast. Branch metformin 2021-10 Yes [id number] 750mg Take 1 [facility] ER 750 mg 2-30 tablet by ity o f 24 hr 00:00: mouth [place] tablet 00 daily with Medical breakfast. Branch glipiZIDE 2021-10 Yes [id number] 20mg Take 2 [facility] n[facility] XL 10 mg 24 2-30 tablets by it y of hr tablet 00:00: mouth [place] 00 daily with Medical breakfast. Branch metformin 2021-10 Yes [id number] 750mg Take 1 [facility] ER 750 mg 2-30 tablet by ity o f 24 hr 00:00: mouth [place] tablet 00 daily with Medical breakfast. Branch glipiZIDE 2021-10 Yes [id number] 20mg Take 2 [facility] XL 10 mg 24 2-30 tablets by it y of hr tablet 00:00: mouth [place] 00 daily with Medical breakfast. Branch metformin 2021-10 Yes [id number] 750mg Take 1 [facility] ER 750 mg 2-30 tablet by ity o f 24 hr 00:00: mouth [place] tablet 00 daily with Medical breakfast. Branch glipiZIDE 2021-10 Yes [id number] 20mg Take 2 [facility] XL 10 mg 24 2-30 tablets by it y of hr tablet 00:00: mouth [place] 00 daily with Medical breakfast. Branch metformin 2021-10 Yes [id number] 750mg Take 1 [facility] ER 750 mg 2-30 tablet by ity o f 24 hr 00:00: mouth [place] tablet 00 daily with Medical breakfast. Branch glipiZIDE 2021-10 Yes [id number] 20mg Take 2 [facility] XL 10 mg 24 2-30 tablets by it y of hr tablet 00:00: mouth [place] 00 daily with Medical breakfast. Branch metformin 2021-10 Yes [id number] 750mg Take 1 [facility] ER 750 mg 2-30 tablet by ity o f 24 hr 00:00: mouth [place] tablet 00 daily with Medical breakfast. Branch glipiZIDE 2021-10 Yes [id number] 20mg Take 2 [facility] XL 10 mg 24 2-30 tablets by it y of hr tablet 00:00: mouth [place] 00 daily with Medical breakfast. Branch metformin 2021-10 Yes [id number] 750mg Take 1 [facility] ER 750 mg 2-30 tablet by ity o f 24 hr 00:00: mouth [place] tablet 00 daily with Medical breakfast. Branch glipiZIDE 2021-10 Yes [id number] 20mg Take 2 [facility] XL 10 mg 24 2-30 tablets by it y of hr tablet 00:00: mouth [place] 00 daily with Medical breakfast. [place] metformin 2021-10 Yes [id number] 750mg Take 1 [facility] ER 750 mg 2-30 tablet by ity o f 24 hr 00:00: mouth [place] tablet 00 daily with Medical breakfast. [place] glipiZIDE 2021-10 Yes [id number] 20mg Take 2 [facility] n[facility] XL 10 mg 24 2-30 tablets by it y of hr tablet 00:00: mouth [place] 00 daily with Medical breakfast. [place] metformin 2021-10 Yes [id number] 750mg Take 1 [facility] ER 750 mg 2-30 tablet by ity o f 24 hr 00:00: mouth [place] tablet 00 daily with Medical breakfast. Branch glipiZIDE 2021-10 Yes [id number] 20mg Take 2 [facility] XL 10 mg 24 2-30 tablets by it y of hr tablet 00:00: mouth [place] 00 daily with Medical breakfast. [place] metformin 2021-10 Yes [id number] 750mg Take 1 [facility] ER 750 mg 2-30 tablet by ity o f 24 hr 00:00: mouth [place] tablet 00 daily with Medical breakfast. Branch glipiZIDE 2021-10 Yes [id number] 20mg Take 2 [facility] XL 10 mg 24 2-30 tablets by it y of hr tablet 00:00: mouth [place] 00 daily with Medical breakfast. Branch metformin 2021-10 Yes [id number] 750mg Take 1 [facility] ER 750 mg 2-30 tablet by ity o f 24 hr 00:00: mouth [place] tablet 00 daily with Medical breakfast. Branch glipiZIDE 2021-10 Yes [id number] 20mg Take 2 [facility] XL 10 mg 24 2-30 tablets by it y of hr tablet 00:00: mouth [place] 00 daily with Medical breakfast. Branch metformin 2021-10 Yes [id number] 750mg Take 1 [facility] ER 750 mg 2-30 tablet by ity o f 24 hr 00:00: mouth [place] tablet 00 daily with Medical breakfast. Branch glipiZIDE 2021-10 Yes [id number] 20mg Take 2 [facility] XL 10 mg 24 2-30 tablets by it y of hr tablet 00:00: mouth [place] 00 daily with Medical breakfast. Branch metformin 2021-10 Yes [id number] 750mg Take 1 [facility] 750 mg 2-30 tablet by ity o f 24 hr 00:00: mouth [place] tablet 00 daily with Medical breakfast. Branch glipiZIDE 2021-10 Yes [id number] 20mg Take 2 [facility] XL 10 mg 24 2-30 tablets by it y of hr tablet 00:00: mouth [place] 00 daily with Medical breakfast. [place] metformin 2021-10 Yes [id number] 750mg Take 1 [facility] ER 750 mg 2-30 tablet by ity o f 24 hr 00:00: mouth [place] tablet 00 daily with Medical breakfast. Branch glipiZIDE 2021-10 Yes [id number] 20mg Take 2 [facility] XL 10 mg 24 2-30 tablets by it y of hr tablet 00:00: mouth [place] 00 daily with Medical breakfast. Branch metformin 2021-10 Yes [id number] 750mg Take 1 [facility] 750 mg 2-30 tablet by ity o f 24 hr 00:00: mouth [place] tablet 00 daily with Medical breakfast. Branch glipiZIDE 2021-10 Yes [id number] 20mg Take 2 [facility] XL 10 mg 24 2-30 tablets by it y of hr tablet 00:00: mouth [place] 00 daily with Medical breakfast. Branch metformin 2021-10 Yes [id number] 750mg Take 1 [facility] 750 mg 2-30 tablet by ity o f 24 hr 00:00: mouth [place] tablet 00 daily with Medical breakfast. Branch metformin 2021-10 Yes [id number] 750mg Take 1 [facility] 750 mg 2-30 tablet by ity o f 24 hr 00:00: mouth [place] tablet 00 daily with Medical breakfast. Branch metformin 2021-10 Yes [id number] 750mg Take 1 [facility] 750 mg 2-30 tablet by ity o f 24 hr 00:00: mouth [place] tablet 00 daily with Medical breakfast. Branch glipiZIDE 2021-10- No [id number] 20mg Take 2 [facility] XL 10 mg 24 2-30 07-14 tablets by i ty of hr tablet 00:00: 00:00 mouth [place] 00 :00 daily with Medical breakfast. [place] glipiZIDE 2021-10- No [id number] 20mg Take 2 [facility] XL 10 mg 24 2-30 07-14 tablets by i ty of hr tablet 00:00: 00:00 mouth [place] 00 :00 daily with Medical breakfast. [place] LISINOPRIL 2021-10 Yes [id number] TAKE 1 [facility] 2.5 mg 0-13 TABLET BY ity of tablet 00:00: MOUTH [place] 00 EVERY DAY Medical [place] LISINOPRIL 2021-10 Yes [id number] TAKE 1 [facility] 2.5 mg 0-13 TABLET BY ity of tablet 00:00: MOUTH [place] 00 EVERY DAY Medical [place] LISINOPRIL 2021-10 Yes [id number] TAKE 1 [facility] 2.5 mg 0-13 TABLET BY ity of tablet 00:00: MOUTH [place] 00 EVERY DAY Medical Branch LISINOPRIL 2021-10 Yes [id number] TAKE 1 [facility] 2.5 mg 0-13 TABLET BY ity of tablet 00:00: MOUTH [place] 00 EVERY DAY Medical Branch LISINOPRIL 2021-10 Yes [id number] TAKE 1 [facility] 2.5 mg 0-13 TABLET BY ity of tablet 00:00: MOUTH [place] 00 EVERY DAY Medical Branch LISINOPRIL 2021-10 Yes [id number] TAKE 1 [facility] 2.5 mg 0-13 TABLET BY ity of tablet 00:00: MOUTH [place] 00 EVERY DAY Medical [place] LISINOPRIL 2021-10 Yes [id number] TAKE 1 [facility] 2.5 mg 0-13 TABLET BY ity of tablet 00:00: MOUTH [place] 00 EVERY DAY Medical Branch LISINOPRIL 2021-10 Yes [id number] TAKE 1 [facility] 2.5 mg 0-13 TABLET BY ity of tablet 00:00: MOUTH [place] 00 EVERY DAY Medical Branch LISINOPRIL 2021-10- No [id number] TAKE 1 [facility] 2.5 mg 0-13 01-10 TABLET BY ity of tablet 00:00: 00:00 MOUTH [place] 00 :00 EVERY DAY Medical Branch LISINOPRIL 2021-2022- No [id number] TAKE 1 [facility] 2.5 mg 0-13 01-10 TABLET BY ity of tablet 00:00: 00:00 MOUTH [place] 00 :00 EVERY DAY Medical Branch LISINOPRIL 2021-10- No [id number] TAKE 1 [facility] 2.5 mg 0-13 01-10 TABLET BY ity of tablet 00:00: 00:00 MOUTH [place] 00 :00 EVERY DAY Medical Branch rosuvastati 2021-0 Yes [id number] 20mg Take 1 [facility] n (CRESTOR) 9-27 tablet by ity of 20 mg 00:00: mouth at [place] tablet 00 bedtime. Medical Branch ezetimibe 0 Yes [id number] 10mg Take 1 [facility] nivers 10 mg 9-27 tablet by ity of tablet 00:00: mouth in [place] 00 the Medical morning. Branch rosuvastati 2021-0 Yes [id number] 20mg Take 1 [facility] n (CRESTOR) 9-27 tablet by ity of 20 mg 00:00: mouth at [place] tablet 00 bedtime. Medical Branch ezetimibe 2021-0 Yes [id number] 10mg Take 1 [facility] nivers 10 mg 9-27 tablet by ity of tablet 00:00: mouth in [place] 00 the Medical morning. Branch rosuvastati 2021-0 Yes [id number] 20mg Take 1 [facility] n (CRESTOR) 9-27 tablet by ity of 20 mg 00:00: mouth at [place] tablet 00 bedtime. Medical Branch ezetimibe 2021-0 Yes [id number] 10mg Take 1 [facility] nivers 10 mg 9-27 tablet by ity of tablet 00:00: mouth in [place] 00 the Medical morning. Branch rosuvastati 2021-0 Yes [id number] 20mg Take 1 [facility] n (CRESTOR) 9-27 tablet by ity of 20 mg 00:00: mouth at [place] tablet 00 bedtime. Medical Branch ezetimibe 2021-0 Yes [id number] 10mg Take 1 [facility] nivers 10 mg 9-27 tablet by ity of tablet 00:00: mouth in [place] 00 the Medical morning. Branch rosuvastati 2021-0 Yes [id number] 20mg Take 1 [facility] n (CRESTOR) 9-27 tablet by ity of 20 mg 00:00: mouth at [place] tablet 00 bedtime. Medical Branch ezetimibe 0 Yes [id number] 10mg Take 1 [facility] nivers 10 mg 9-27 tablet by ity of tablet 00:00: mouth in [place] 00 the Medical morning. Branch rosuvastati 0 Yes [id number] 20mg Take 1 [facility] n (CRESTOR) 9-27 tablet by ity of 20 mg 00:00: mouth at [place] tablet 00 bedtime. Medical Branch ezetimibe 0 Yes [id number] 10mg Take 1 [facility] nivers 10 mg 9-27 tablet by ity of tablet 00:00: mouth in [place] 00 the Medical morning. Branch rosuvastati 0 Yes [id number] 20mg Take 1 [facility] n (CRESTOR) 9-27 tablet by ity of 20 mg 00:00: mouth at [place] tablet 00 bedtime. Medical Branch ezetimibe 0 Yes [id number] 10mg Take 1 [facility] nivers 10 mg 9-27 tablet by ity of tablet 00:00: mouth in [place] 00 the Medical morning. Branch rosuvastati 2021-0 Yes [id number] 20mg Take 1 [facility] n (CRESTOR) 9-27 tablet by ity of 20 mg 00:00: mouth at [place] tablet 00 bedtime. Medical Branch ezetimibe 0 Yes [id number] 10mg Take 1 [facility] nivers 10 mg 9-27 tablet by ity of tablet 00:00: mouth in [place] 00 the Medical morning. Branch rosuvastati 2021-0 Yes [id number] 20mg Take 1 [facility] n (CRESTOR) 9-27 tablet by ity of 20 mg 00:00: mouth at [place] tablet 00 bedtime. Medical Branch ezetimibe 2021-0 Yes [id number] 10mg Take 1 [facility] nivers 10 mg 9-27 tablet by ity of tablet 00:00: mouth in [place] 00 the Medical morning. Branch rosuvastati 2021-0 Yes [id number] 20mg Take 1 [facility] n (CRESTOR) 9-27 tablet by ity of 20 mg 00:00: mouth at [place] tablet 00 bedtime. Medical Branch ezetimibe 2021-0 Yes [id number] 10mg Take 1 [facility] nivers 10 mg 9-27 tablet by ity of tablet 00:00: mouth in [place] 00 the Medical morning. Branch rosuvastati 2021-0 Yes [id number] 20mg Take 1 [facility] n (CRESTOR) 9-27 tablet by ity of 20 mg 00:00: mouth at [place] tablet 00 bedtime. Medical Branch ezetimibe 2021-0 Yes [id number] 10mg Take 1 [facility] nivers 10 mg 9-27 tablet by ity of tablet 00:00: mouth in [place] 00 the Medical morning. Branch rosuvastati 2021-0 Yes [id number] 20mg Take 1 [facility] n (CRESTOR) 9-27 tablet by ity of 20 mg 00:00: mouth at [place] tablet 00 bedtime. Medical Branch ezetimibe 2021-0 Yes [id number] 10mg Take 1 [facility] nivers 10 mg 9-27 tablet by ity of tablet 00:00: mouth in [place] 00 the Medical morning. Branch rosuvastati 2021-0 Yes [id number] 20mg Take 1 [facility] n (CRESTOR) 9-27 tablet by ity of 20 mg 00:00: mouth at [place] tablet 00 bedtime. Medical Branch ezetimibe 2021-0 Yes [id number] 10mg Take 1 [facility] nivers 10 mg 9-27 tablet by ity of tablet 00:00: mouth in [place] 00 the Medical morning. Branch rosuvastati 2021-0 Yes [id number] 20mg Take 1 [facility] n (CRESTOR) 9-27 tablet by ity of 20 mg 00:00: mouth at [place] tablet 00 bedtime. Medical Branch ezetimibe 2021-0 Yes [id number] 10mg Take 1 [facility] nivers 10 mg 9-27 tablet by ity of tablet 00:00: mouth in [place] 00 the Medical morning. Branch ezetimibe 2021-0 Yes [id number] 10mg Take 1 [facility] nivers 10 mg 9-27 tablet by ity of tablet 00:00: mouth in [place] 00 the Medical morning. Branch ezetimibe Yes [id number] 10mg Take 1 [facility] nivers 10 mg 9-27 tablet by ity of tablet 00:00: mouth in [place] 00 the Medical morning. Branch ezetimibe Yes [id number] 10mg Take 1 [facility] nivers 10 mg 9-27 tablet by ity of tablet 00:00: mouth in [place] 00 the morning. Branch ezetimibe 2022- No [id number] 10mg Take 1 [facility] 10 mg 9-27 05-22 tablet by ity of tablet 00:00: 00:00 mouth in [place] 00 :00 the Medical morning. [place] rosuvastati 2022- No [id number] 20mg Take 1 [facility] n (CRESTOR) 9-27 04-03 tablet by it y of 20 mg 00:00: 00:00 mouth at [place] tablet 00 :00 bedtime. [facility] Branch icosapent No [id number] 2g Take 2 [facility] ethyL 9-14 10-15 capsules ity of (VASCEPA) 1 00:00: 04:59 by mouth [place] gram 00 :00 in the Medical capsule morning Branch and 2 capsules in the evening. Do all this for 30 days. icosapent No [id number] 2g Take 2 [facility] ethyL 9-14 10-15 capsules ity of (VASCEPA) 1 00:00: 04:59 by mouth [place] gram 00 :00 in the Medical capsule morning Branch and 2 capsules in the evening. Do all this for 30 days. icosapent No [id number] 2g Take 2 [facility] ethyL 9-14 10-15 capsules ity of (VASCEPA) 1 00:00: 04:59 by mouth [place] gram 00 :00 in the Medical capsule morning Branch and 2 capsules in the evening. Do all this for 30 days. icosapent No [id number] 2g Take 2 [facility] ethyL 9-14 10-15 capsules ity of (VASCEPA) 1 00:00: 04:59 by mouth [place] gram 00 :00 in the Medical capsule morning Branch and 2 capsules in the evening. Do all this for 30 days. icosapent 2021- No [id number] 2g Take 2 [facility] ethyL 9-14 10-15 capsules ity of (VASCEPA) 1 00:00: 04:59 by mouth [place] gram 00 :00 in the Medical capsule morning Branch and 2 capsules in the evening. Do all this for 30 days. semaglutide 2021-0 Yes [id number] .5mg inject 0.5 [facility] (OZEMPIC) 9-12 mg under ity of 0.25 mg or 00:00: the skin [place] as 0.5 mg(2 00 weekly. Medical mg/1.5 mL) Start 0.25 Bra nch PnIj mg weekly for 4 weeks, then 0.5 mg thereafter glipiZIDE 0 Yes [id number] 10mg Take 1 [facility] nivers XL 10 mg 24 9-12 tablet by ity of hr tablet 00:00: mouth [place] 00 daily with Medical breakfast. Branch metformin 0 Yes [id number] 750mg Take 1 [facility] ER 750 mg 9-12 tablet by ity o f 24 hr 00:00: mouth [place] tablet 00 daily with Medical breakfast. Branch semaglutide 0 Yes [id number] .5mg inject 0.5 [facility] (OZEMPIC) 9-12 mg under ity of 0.25 mg or 00:00: the [place] 0.5 mg(2 00 weekly. Medical mg/1.5 mL) Start 0.25 Bra nch PnIj mg weekly for 4 weeks, then 0.5 mg thereafter glipiZIDE 2021-0 Yes [id number] 10mg Take 1 [facility] nivers XL 10 mg 24 9-12 tablet by ity of hr tablet 00:00: mouth [place] 00 daily with Medical breakfast. Branch metformin 2021-0 Yes [id number] 750mg Take 1 [facility] ER 750 mg 9-12 tablet by ity o f 24 hr 00:00: mouth [place] tablet 00 daily with Medical breakfast. Branch semaglutide 2021-0 Yes [id number] .5mg inject 0.5 [facility] (OZEMPIC) 9-12 mg under ity of 0.25 mg or 00:00: the [place] 0.5 mg(2 00 weekly. Medical mg/1.5 mL) Start 0.25 Bra nch PnIj mg weekly for 4 weeks, then 0.5 mg thereafter glipiZIDE 2021-0 Yes [id number] 10mg Take 1 [facility] nivers XL 10 mg 24 9-12 tablet by ity of hr tablet 00:00: mouth [place] 00 daily with Medical breakfast. Branch metformin 2021-0 Yes [id number] 750mg Take 1 [facility] ER 750 mg 9-12 tablet by ity o f 24 hr 00:00: mouth [place] tablet 00 daily with Medical breakfast. Branch semaglutide 2021-0 Yes [id number] .5mg inject 0.5 [facility] (OZEMPIC) 9-12 mg under ity of 0.25 mg or 00:00: the [place] 0.5 mg(2 00 weekly. Medical mg/1.5 mL) Start 0.25 Bra nch PnIj mg weekly for 4 weeks, then 0.5 mg thereafter glipiZIDE 2021-0 Yes [id number] 10mg Take 1 [facility] nivers XL 10 mg 24 9-12 tablet by ity of hr tablet 00:00: mouth [place] 00 daily with Medical breakfast. Branch metformin 2021-0 Yes [id number] 750mg Take 1 [facility] ER 750 mg 9-12 tablet by ity o f 24 hr 00:00: mouth [place] tablet 00 daily with Medical breakfast. Branch semaglutide 2021-0 Yes [id number] .5mg inject 0.5 [facility] (OZEMPIC) 9-12 mg under ity of 0.25 mg or 00:00: the [place] 0.5 mg(2 00 weekly. Medical mg/1.5 mL) Start 0.25 Bra nch PnIj mg weekly for 4 weeks, then 0.5 mg thereafter glipiZIDE 2021-0 Yes [id number] 10mg Take 1 U nivers XL 10 mg 24 9-12 tablet by ity of hr tablet 00:00: mouth [place] 00 daily with Medical breakfast. Branch metformin 2021-0 Yes [id number] 750mg Take 1 [facility] ER 750 mg 9-12 tablet by ity o f 24 hr 00:00: mouth [place] tablet 00 daily with Medical breakfast. Branch semaglutide 2021-0 Yes [id number] .5mg inject 0.5 [facility] (OZEMPIC) 9-12 mg under ity of 0.25 mg or 00:00: the [place] 0.5 mg(2 00 weekly. Medical mg/1.5 mL) Start 0.25 Bra nch PnIj mg weekly for 4 weeks, then 0.5 mg thereafter glipiZIDE 2021-0 Yes [id number] 10mg Take 1 [facility] nivers XL 10 mg 24 9-12 tablet by ity of hr tablet 00:00: mouth [place] 00 daily with Medical breakfast. Branch metformin 2021-0 Yes [id number] 750mg Take 1 [facility] ER 750 mg 9-12 tablet by ity o f 24 hr 00:00: mouth [place] tablet 00 daily with Medical breakfast. Branch semaglutide 2021-0 Yes [id number] .5mg inject 0.5 [facility] (OZEMPIC) 9-12 mg under ity of 0.25 mg or 00:00: the [place] 0.5 mg(2 00 weekly. Medical mg/1.5 mL) Start 0.25 Bra nch PnIj mg weekly for 4 weeks, then 0.5 mg thereafter glipiZIDE 2021-0 Yes [id number] 10mg Take 1 [facility] nivers XL 10 mg 24 9-12 tablet by ity of hr tablet 00:00: mouth [place] 00 daily with Medical breakfast. Branch metformin 2021-0 Yes [id number] 750mg Take 1 [facility] ER 750 mg 9-12 tablet by ity o f 24 hr 00:00: mouth [place] tablet 00 daily with Medical breakfast. Branch semaglutide 2021-0 Yes [id number] .5mg inject 0.5 [facility] (OZEMPIC) 9-12 mg under ity of 0.25 mg or 00:00: the [place] 0.5 mg(2 00 weekly. Medical mg/1.5 mL) Start 0.25 Bra nch PnIj mg weekly for 4 weeks, then 0.5 mg thereafter glipiZIDE 2021-0 Yes [id number] 10mg Take 1 U nivers XL 10 mg 24 9-12 tablet by ity of hr tablet 00:00: mouth [place] 00 daily with Medical breakfast. Branch metformin 2021-0 Yes [id number] 750mg Take 1 [facility] ER 750 mg 9-12 tablet by ity o f 24 hr 00:00: mouth [place] tablet 00 daily with Medical breakfast. Branch semaglutide 2021-0 Yes [id number] .5mg inject 0.5 [facility] (OZEMPIC) 9-12 mg under ity of 0.25 mg or 00:00: the [place] 0.5 mg(2 00 weekly. Medical mg/1.5 mL) Start 0.25 Bra nch PnIj mg weekly for 4 weeks, then 0.5 mg thereafter glipiZIDE 2021-0 Yes [id number] 10mg Take 1 U nivers XL 10 mg 24 9-12 tablet by ity of hr tablet 00:00: mouth [place] 00 daily with Medical breakfast. Branch metformin 2021-0 Yes [id number] 750mg Take 1 [facility] ER 750 mg 9-12 tablet by ity o f 24 hr 00:00: mouth [place] tablet 00 daily with Medical breakfast. Branch semaglutide Yes [id number] .5mg inject 0.5 [facility] (OZEMPIC) 9-12 mg under ity of 0.25 mg or 00:00: the [place] 0.5 mg(2 00 weekly. Medical mg/1.5 mL) Start 0.25 Bra nch PnIj mg weekly for 4 weeks, then 0.5 mg thereafter glipiZIDE 0 Yes [id number] 10mg Take 1 U nivers XL 10 mg 24 9-12 tablet by ity of hr tablet 00:00: mouth [place] 00 daily with Medical breakfast. Branch metformin 2021-0 Yes [id number] 750mg Take 1 [facility] ER 750 mg 9-12 tablet by ity o f 24 hr 00:00: mouth [place] tablet 00 daily with Medical breakfast. Branch semaglutide 0 Yes [id number] .5mg inject 0.5 [facility] (OZEMPIC) 9-12 mg under ity of 0.25 mg or 00:00: the [place] 0.5 mg(2 00 weekly. Medical mg/1.5 mL) Start 0.25 Bra nch PnIj mg weekly for 4 weeks, then 0.5 mg thereafter glipiZIDE 2021-0 Yes [id number] 10mg Take 1 U nivers XL 10 mg 24 9-12 tablet by ity of hr tablet 00:00: mouth [place] 00 daily with Medical breakfast. Branch metformin 2021-0 Yes [id number] 750mg Take 1 [facility] ER 750 mg 9-12 tablet by ity o f 24 hr 00:00: mouth [place] tablet 00 daily with Medical breakfast. Branch semaglutide 2022-0 Yes [id number] .5mg inject 0.5 [facility] (OZEMPIC) 9-12 mg under ity of 0.25 mg or 00:00: the [place] 0.5 mg(2 00 weekly. Medical mg/1.5 mL) Start 0.25 Bra nch PnIj mg weekly for 4 weeks, then 0.5 mg thereafter glipiZIDE 2021-0 Yes [id number] 10mg Take 1 U nivers XL 10 mg 24 9-12 tablet by ity of hr tablet 00:00: mouth [place] 00 daily with Medical breakfast. Branch metformin 2021-0 Yes [id number] 750mg Take 1 [facility] ER 750 mg 9-12 tablet by ity o f 24 hr 00:00: mouth [place] tablet 00 daily with Medical breakfast. Branch semaglutide 2021-0 Yes [id number] .5mg inject 0.5 [facility] (OZEMPIC) 9-12 mg under ity of 0.25 mg or 00:00: the [place] 0.5 mg(2 00 weekly. Medical mg/1.5 mL) Start 0.25 Bra nch PnIj mg weekly for 4 weeks, then 0.5 mg thereafter glipiZIDE 2021-0 Yes [id number] 10mg Take 1 U nivers XL 10 mg 24 9-12 tablet by ity of hr tablet 00:00: mouth [place] 00 daily with Medical breakfast. Branch metformin 2021-0 Yes [id number] 750mg Take 1 [facility] ER 750 mg 9-12 tablet by ity o f 24 hr 00:00: mouth [place] tablet 00 daily with Medical breakfast. Branch semaglutide 2021-0 Yes [id number] .5mg inject 0.5 [facility] (OZEMPIC) 9-12 mg under ity of 0.25 mg or 00:00: the [place] 0.5 mg(2 00 weekly. Medical mg/1.5 mL) Start 0.25 Bra nch PnIj mg weekly for 4 weeks, then 0.5 mg thereafter semaglutide 2021-0 Yes [id number] .5mg inject 0.5 [facility] (OZEMPIC) 9-12 mg under ity of 0.25 mg or 00:00: the [place] 0.5 mg(2 00 weekly. Medical mg/1.5 mL) Start 0.25 Bra nch PnIj mg weekly for 4 weeks, then 0.5 mg thereafter semaglutide 2022-0 Yes [id number] .5mg inject 0.5 [facility] (OZEMPIC) 9-12 mg under ity of 0.25 mg or 00:00: the [place] 0.5 mg(2 00 weekly. Medical mg/1.5 mL) Start 0.25 Bra nch PnIj mg weekly for 4 weeks, then 0.5 mg thereafter semaglutide 2022-0 Yes [id number] .5mg inject 0.5 [facility] (OZEMPIC) 9-12 mg under ity of 0.25 mg or 00:00: the [place] 0.5 mg(2 00 weekly. Medical mg/1.5 mL) Start 0.25 Bra nch PnIj mg weekly for 4 weeks, then 0.5 mg thereafter semaglutide 2022-0 Yes [id number] .[id number] inject 0.5 [facility] (OZEMPIC) 9-12 mg under ity of 0.25 mg or 00:00: the [place] 0.5 mg(2 00 weekly. Medical mg/1.5 mL) Start 0.25 Bra nch PnIj mg weekly for 4 weeks, then 0.5 mg thereafter semaglutide 2022-0 Yes [id number] .5mg inject 0.5 [facility] (OZEMPIC) 9-12 mg under ity of 0.25 mg or 00:00: the [place] 0.5 mg(2 00 weekly. Medical mg/1.5 mL) Start 0.25 Bra nch PnIj mg weekly for 4 weeks, then 0.5 mg thereafter semaglutide 2022-0 Yes [id number] .5mg inject 0.5 [facility] (OZEMPIC) 9-12 mg under ity of 0.25 mg or 00:00: the [place] 0.5 mg(2 00 weekly. Medical mg/1.5 mL) Start 0.25 Bra nch PnIj mg weekly for 4 weeks, then 0.5 mg thereafter semaglutide 2022-0 Yes [id number] .5mg inject 0.5 [facility] (OZEMPIC) 9-12 mg under ity of 0.25 mg or 00:00: the [place] 0.5 mg(2 00 weekly. Medical mg/1.5 mL) Start 0.25 Bra nch PnIj mg weekly for 4 weeks, then 0.5 mg thereafter semaglutide Yes [id number] .5mg inject 0.5 [facility] (OZEMPIC) 9-12 mg under ity of 0.25 mg or 00:00: the skin [place] 0.5 mg(2 00 weekly. Medical mg/1.5 mL) Start 0.25 [facility] PnIj mg weekly for 4 weeks, then 0.5 mg thereafter semaglutide Yes [id number] .5mg inject 0.5 [facility] (OZEMPIC) 9-12 mg under ity of 0.25 mg or 00:00: the skin [place] 0.5 mg(2 00 weekly. Medical mg/1.5 mL) Start 0.25 [facility] PnIj mg weekly for 4 weeks, then 0.5 mg thereafter semaglutide 2022- No [id number] .5mg inject 0.5 [facility] (OZEMPIC) 9-12 06-16 mg under ity o f 0.25 mg or 00:00: 00:00 the skin [place] 0.5 mg(2 00 :00 weekly. Medical mg/1.5 mL) Start 0.25 [facility] PnIj mg weekly for 4 weeks, then 0.5 mg thereafter semaglutide 2022- No [id number] .5mg inject 0.5 [facility] (OZEMPIC) 9 06-16 mg under ity o f 0.25 mg or 00:00: 00:00 the skin [place] 0.5 mg(2 00 :00 weekly. Medical mg/1.5 mL) Start 0.25 [facility] PnIj mg weekly for 4 weeks, then 0.5 mg thereafter glipiZIDE 2021- No [id number] 10mg Take 1 [facility] XL 10 mg 24 06-20-30 tablet by it y of hr tablet 00:00: 00:00 mouth [place] 00 :00 daily with Medical breakfast. [place] metformin 2021- No [id number] 750mg Take 1 [facility] ER 750 mg 06-20-30 tablet by ity of 24 hr 00:00: 00:00 mouth [place] tablet 00 :00 daily with Medical breakfast. [place] glipiZIDE 2021- No [id number] 10mg Take 1 [facility] XL 10 mg 24 9 12-30 tablet by it y of hr tablet 00:00: 00:00 mouth [place] 00 :00 daily with Medical breakfast. [place] metformin 2021-0 2021- No [id number] 750mg Take 1 [facility] ER 750 mg 9- 12-30 tablet by ity of 24 hr 00:00: 00:00 mouth [place] tablet 00 :00 daily with Medical breakfast. Branch clobetasoL 2022-0 Yes [id number] Apply to [facility] 0.05 % 8-05 area(s) 2 ity of ointment 00:00: (two) [place] 00 times Medical daily. Branch clobetasoL 2022-0 Yes [id number] Apply to [facility] 0.05 % 8-05 area(s) 2 ity of ointment 00:00: (two) [place] 00 times Medical daily. Branch clobetasoL 2022-0 Yes [id number] Apply to [facility] 0.05 % 8-05 area(s) 2 ity of ointment 00:00: (two) [place] 00 times Medical daily. Branch clobetasoL 2-0 Yes [id number] Apply to [facility] 0.05 % 8-05 area(s) 2 ity of ointment 00:00: (two) [place] 00 times Medical daily. Branch clobetasoL 2022-0 Yes [id number] Apply to [facility] 0.05 % 8-05 area(s) 2 ity of ointment 00:00: (two) [place] 00 times Medical daily. Branch clobetasoL 2022-0 Yes [id number] Apply to [facility] 0.05 % 8-05 area(s) 2 ity of ointment 00:00: (two) [place] 00 times Medical daily. Branch clobetasoL 2022-0 Yes [id number] Apply to [facility] 0.05 % 8-05 area(s) 2 ity of ointment 00:00: (two) [place] 00 times Medical daily. Branch clobetasoL 2022-0 Yes [id number] Apply to [facility] 0.05 % 8-05 area(s) 2 ity of ointment 00:00: (two) [place] 00 times Medical daily. Branch clobetasoL 2022-0 Yes [id number] Apply to [facility] 0.05 % 8-05 area(s) 2 ity of ointment 00:00: (two) [place] 00 times Medical daily. Branch clobetasoL 2022-0 Yes [id number] Apply to [facility] 0.05 % 8-05 area(s) 2 ity of ointment 00:00: (two) [place] 00 times Medical daily. Branch clobetasoL 2022-0 Yes [id number] Apply to [facility] 0.05 % 8-05 area(s) 2 ity of ointment 00:00: (two) [place] 00 times Medical daily. Branch clobetasoL 2022-0 Yes [id number] Apply to [facility] 0.05 % 8-05 area(s) 2 ity of ointment 00:00: (two) [place] 00 times Medical daily. Branch clobetasoL 2022-0 Yes [id number] Apply to [facility] 0.05 % 8-05 area(s) 2 ity of ointment 00:00: (two) [place] 00 times Medical daily. Branch clobetasoL 2022-0 Yes [id number] Apply to [facility] 0.05 % 8-05 area(s) 2 ity of ointment 00:00: (two) [place] 00 times Medical daily. Branch clobetasoL 2022-0 Yes [id number] Apply to [facility] 0.05 % 8-05 area(s) 2 ity of ointment 00:00: (two) [place] 00 times Medical daily. Branch clobetasoL 2022-0 Yes [id number] Apply to [facility] 0.05 % 8-05 area(s) 2 ity of ointment 00:00: (two) [place] 00 times Medical daily. Branch clobetasoL 2022-0 Yes [id number] Apply to [facility] 0.05 % 8-05 area(s) 2 ity of ointment 00:00: (two) [place] 00 times Medical daily. Branch clobetasoL 2022-0 Yes [id number] Apply to [facility] 0.05 % 8-05 area(s) 2 ity of ointment 00:00: (two) [place] 00 times Medical daily. Branch clobetasoL 2022-0 Yes [id number] Apply to [facility] 0.05 % 8-05 area(s) 2 ity of ointment 00:00: (two) [place] 00 times Medical daily. Branch clobetasoL 2022-0 Yes [id number] Apply to [facility] 0.05 % 8-05 area(s) 2 ity of ointment 00:00: (two) [place] 00 times Medical daily. Branch clobetasoL 2022-0 Yes [id number] Apply to [facility] 0.05 % 8-05 area(s) 2 ity of ointment 00:00: (two) [place] 00 times Medical daily. Branch clobetasoL 2022-0 Yes [id number] Apply to [facility] 0.05 % 8-05 area(s) 2 ity of ointment 00:00: (two) [place] 00 times Medical daily. Branch clobetasoL 2022-0 Yes [id number] Apply to [facility] 0.05 % 8-05 area(s) 2 ity of ointment 00:00: (two) [place] 00 times Medical daily. Branch clobetasoL 2022-0 Yes [id number] Apply to [facility] 0.05 % 8-05 area(s) 2 ity of ointment 00:00: (two) [place] 00 times Medical daily. Branch clobetasoL 2022-0 Yes [id number] Apply to [facility] 0.05 % 8-05 area(s) 2 ity of ointment 00:00: (two) [place] 00 times Medical daily. Branch clobetasoL 2022-0 Yes [id number] Apply to [facility] 0.05 % 8-05 area(s) 2 ity of ointment 00:00: (two) [place] 00 times Medical daily. Branch clobetasoL 2022-0 Yes [id number] Apply to [facility] 0.05 % 8-05 area(s) 2 ity of ointment 00:00: (two) [place] 00 times Medical daily. Branch clobetasoL 2022-0 Yes [id number] Apply to [facility] 0.05 % 8-05 area(s) 2 ity of ointment 00:00: (two) [place] 00 times Medical daily. Branch clobetasoL 2022-0 Yes [id number] Apply to [facility] 0.05 % 8-05 area(s) 2 ity of ointment 00:00: (two) [place] 00 times Medical daily. Branch clobetasoL 2022-0 Yes [id number] Apply to [facility] 0.05 % 8-05 area(s) 2 ity of ointment 00:00: (two) [place] 00 times Medical daily. Branch clobetasoL 2022-0 Yes [id number] Apply to [facility] 0.05 % 8-05 area(s) 2 ity of ointment 00:00: (two) [place] 00 times Medical daily. Branch clobetasoL 2022-0 Yes [id number] Apply to [facility] 0.05 % 8-05 area(s) 2 ity of ointment 00:00: (two) [place] 00 times Medical daily. Branch clobetasoL 2022-0 Yes [id number] Apply to [facility] 0.05 % 8-05 area(s) 2 ity of ointment 00:00: (two) [place] 00 times Medical daily. Branch clobetasoL 2022-0 Yes [id number] Apply to [facility] 0.05 % 8-05 area(s) 2 ity of ointment 00:00: (two) [place] 00 times Medical daily. Branch clobetasoL 2022-0 Yes [id number] Apply to [facility] 0.05 % 8-05 area(s) 2 ity of ointment 00:00: (two) [place] 00 times Medical daily. Branch clobetasoL 2022-0 Yes [id number] Apply to [facility] 0.05 % 8-05 area(s) 2 ity of ointment 00:00: (two) [place] 00 times Medical daily. Branch clobetasoL 2022-0 Yes [id number] Apply to [facility] 0.05 % 8-05 area(s) 2 ity of ointment 00:00: (two) [place] 00 times Medical daily. Branch clobetasoL 2022-0 Yes [id number] Apply to [facility] 0.05 % 8-05 area(s) 2 ity of ointment 00:00: (two) [place] 00 times Medical daily. Branch lisinopriL 2022-0 Yes [id number] 2.5mg Take 1 [facility] 2.5 mg 6-27 tablet by ity of tablet 00:00: mouth daily. Medical Branch lisinopriL 2022-0 Yes [id number] 2.5mg Take 1 [facility] 2.5 mg 6-27 tablet by ity of tablet 00:00: mouth daily. Medical Branch lisinopriL 2022-0 Yes [id number] 2.5mg Take 1 [facility] 2.5 mg 6-27 tablet by ity of tablet 00:00: mouth [place] 00 daily. Medical Branch lisinopriL 2021-0 Yes [id number] 2.5mg Take 1 [facility] 2.5 mg 6-27 tablet by ity of tablet 00:00: mouth [place] 00 daily. Medical Branch lisinopriL 2021-0 Yes [id number] 2.5mg Take 1 [facility] 2.5 mg 6-27 tablet by ity of tablet 00:00: mouth [place] 00 daily. Medical Branch lisinopriL 2021-0 2022- No [id number] 2.5mg Take 1 [facility] 2.5 mg 6-27 [...] MOUTH [place] 00 NIGHTLY Medical Branch Cholecalcif Yes 2{capsu Take 2 U nivers ricardo, 5-29 le} capsules ity of Vitamin D3, 00:00: by mouth [place] 50 mcg 00 daily. Medical (2,000 Branch unit) capsule guanFACINE Yes TAKE 1 Un[facility] rs ER 3 mg 5-29 TABLET BY ity of tablet 00:00: MOUTH [place] 00 NIGHTLY Medical Branch ROSUVASTATI Yes [id number] 20mg TAKE 1 [facility] N 20 mg 5-26 TABLET BY ity of tablet 00:00: MOUTH AT [place] 00 BEDTIME. Medical MUST BE Branch SEEN FOR FURTHER REFILLS ROSUVASTATI Yes [id number] 20mg TAKE 1 [facility] N 20 mg 5-26 TABLET BY ity of tablet 00:00: MOUTH AT [place] [address] BEDTIME. Medical MUST BE Branch SEEN FOR FURTHER REFILLS ROSUVASTATI 2021- No [id number] 20mg TAKE 1 [facility] N 20 mg 5-26 -27 TABLET BY ity of tablet 00:00: 00:00 MOUTH AT [place] 00 :00 BEDTIME. Medical MUST BE Branch SEEN FOR FURTHER REFILLS ROSUVASTATI 2021- No [id number] 20mg TAKE 1 [facility] N 20 mg 5-26 -27 TABLET BY ity of tablet 00:00: 00:00 MOUTH AT [place] 00 :00 BEDTIME. Medical MUST BE Branch SEEN FOR FURTHER REFILLS famotidine Yes TAKE 1 [facility] rs 20 mg 5-02 TABLET BY ity of tablet 00:00: MOUTH [place] 00 EVERY 12 Medical HOURS FOR Branch 10 DAYS ondansetron Yes TAKE 1 [facility] ers 4 mg tablet 5-02 TABLET BY ity of 00:00: MOUTH [place] 00 EVERY 12 Medical HOURS Branch NEEDED famotidine Yes TAKE 1 [facility] rs 20 mg 5-02 TABLET BY ity of tablet 00:00: MOUTH [place] 00 EVERY 12 Medical HOURS FOR Branch 10 DAYS ondansetron Yes TAKE 1 [facility] ers 4 mg tablet 5-02 TABLET BY ity of 00:00: MOUTH [place] 00 EVERY 12 Medical HOURS Branch NEEDED [...] by mouth ity of tablet 00:00: at [place] [address] bedtime. Medical Branch ARIPiprazol 2022-0 Yes 5mg Take 5 mg U nivers e 5 mg 4-12 by mouth ity of tablet 00:00: at [place] [address] bedtime. Medical Branch ARIPiprazol 2022-0 Yes 5mg Take 5 mg U nivers e 5 mg 4-12 by mouth ity of tablet 00:00: at [place] [address] bedtime. Medical Branch ARIPiprazol 2022-0 Yes 5mg Take 5 mg U nivers e 5 mg 4-12 by mouth ity of tablet 00:00: at [place] [address] bedtime. Medical Branch ARIPiprazol 2022-0 Yes 5mg Take 5 mg U nivers e 5 mg 4-12 by mouth ity of tablet 00:00: at [place] [address] bedtime. Medical Branch ARIPiprazol 2022-0 Yes 5mg Take 5 mg U nivers e 5 mg 4-12 by mouth ity of tablet 00:00: at [place] [address] bedtime. Medical Branch ARIPiprazol 2022-0 Yes 5mg Take 5 mg U nivers e 5 mg 4-12 by mouth ity of tablet 00:00: at [place] [address] bedtime. Medical Branch ARIPiprazol 2022-0 Yes 5mg Take 5 mg U nivers e 5 mg 4-12 by mouth ity of tablet 00:00: at [place] [address] bedtime. Medical Branch ARIPiprazol 2022-0 Yes 5mg Take 5 mg U nivers e 5 mg 4-12 by mouth ity of tablet 00:00: at [place] [address] bedtime. Medical Branch ARIPiprazol 2022-0 Yes 5mg Take 5 mg U nivers e 5 mg 4-12 by mouth ity of tablet 00:00: at [place] [address] bedtime. Medical Branch ARIPiprazol 2022-0 Yes 5mg Take 5 mg U nivers e 5 mg 4-12 by mouth ity of tablet 00:00: at [place] [address] bedtime. Medical Branch ARIPiprazol 2022-0 Yes 5mg Take 5 mg U nivers e 5 mg 4-12 by mouth ity of tablet 00:00: at [place] [address] bedtime. Medical Branch ARIPiprazol 2022-0 Yes 5mg Take 5 mg U nivers e 5 mg 4-12 by mouth ity of tablet 00:00: at [place] [address] bedtime. Medical Branch ARIPiprazol 2022-0 Yes 5mg Take 5 mg U nivers e 5 mg 4-12 by mouth ity of tablet 00:00: at [place] [address] bedtime. Medical Branch ARIPiprazol 2022-0 Yes 5mg Take 5 mg U nivers e 5 mg 4-12 by mouth ity of tablet 00:00: at [place] [address] bedtime. Medical Branch ARIPiprazol 2022-0 Yes 5mg Take 5 mg U nivers e 5 mg 4-12 by mouth ity of tablet 00:00: at [place] [address] bedtime. Medical Branch ARIPiprazol 2-0 Yes 5mg Take 5 mg U nivers e 5 mg 4-12 by mouth ity of tablet 00:00: at [place] [address] bedtime. Medical Branch ARIPiprazol 2022-0 Yes 5mg Take 5 mg U nivers e 5 mg 4-12 by mouth ity of tablet 00:00: at [place] [address] bedtime. Medical Branch ARIPiprazol 2-0 Yes 5mg Take 5 mg U nivers e 5 mg 4-12 by mouth ity of tablet 00:00: at [place] [address] bedtime. Medical Branch ARIPiprazol 2-0 Yes 5mg Take 5 mg U nivers e 5 mg 4-12 by mouth ity of tablet 00:00: at [place] [address] bedtime. Medical Branch ARIPiprazol 2022-0 Yes 5mg Take 5 mg U nivers e 5 mg 4-12 by mouth ity of tablet 00:00: at [place] [address] bedtime. Medical Branch ARIPiprazol 2022-0 Yes 5mg Take 5 mg U nivers e 5 mg 4-12 by mouth ity of tablet 00:00: at [place] [address] bedtime. Medical Branch ARIPiprazol 2022-0 Yes 5mg Take 5 mg U nivers e 5 mg 4-12 by mouth ity of tablet 00:00: at [place] [address] bedtime. Medical Branch ARIPiprazol 2022-0 Yes 5mg Take 5 mg U nivers e 5 mg 4-12 by mouth ity of tablet 00:00: at [place] [address] bedtime. Medical Branch ARIPiprazol 2022-0 Yes 5mg Take 5 mg U nivers e 5 mg 4-12 by mouth ity of tablet 00:00: at [place] [address] bedtime. Medical Branch ARIPiprazol 2022-0 Yes 5mg Take 5 mg U nivers e 5 mg 4-12 by mouth ity of tablet 00:00: at [place] [address] bedtime. Medical Branch ARIPiprazol 2022-0 Yes 5mg Take 5 mg U nivers e 5 mg 4-12 by mouth ity of tablet 00:00: at [place] [address] bedtime. Medical Branch ARIPiprazol 2022-0 Yes 5mg Take 5 mg U nivers e 5 mg 4-12 by mouth ity of tablet 00:00: at [place] [address] bedtime. Medical Branch ARIPiprazol 2022-0 Yes 5mg Take 5 mg U nivers e 5 mg 4-12 by mouth ity of tablet 00:00: at [place] [address] bedtime. Medical Branch ARIPiprazol 2022-0 Yes 5mg Take 5 mg U nivers e 5 mg 4-12 by mouth ity of tablet 00:00: at [place] [address] bedtime. Medical Branch ARIPiprazol 2-0 Yes 5mg Take 5 mg U nivers e 5 mg 4-12 by mouth ity of tablet 00:00: at [place] [address] bedtime. Medical Branch ARIPiprazol 2-0 Yes 5mg Take 5 mg U nivers e 5 mg 4-12 by mouth ity of tablet 00:00: at [place] [address] bedtime. Medical Branch ARIPiprazol 2022-0 Yes 5mg Take 5 mg U nivers e 5 mg 4-12 by mouth ity of tablet 00:00: at [place] [address] bedtime. Medical Branch ARIPiprazol 2022-0 Yes 5mg Take 5 mg U nivers e 5 mg 4-12 by mouth ity of tablet 00:00: at [place] [address] bedtime. Medical Branch ARIPiprazol 2022-0 Yes 5mg Take 5 mg U nivers e 5 mg 4-12 by mouth ity of tablet 00:00: at [place] [address] bedtime. Medical Branch ARIPiprazol 2022-0 Yes 5mg Take 5 mg U nivers e 5 mg 4-12 by mouth ity of tablet 00:00: at [place] [address] bedtime. Medical Branch ARIPiprazol 2022-0 Yes 5mg Take 5 mg U nivers e 5 mg 4-12 by mouth ity of tablet 00:00: at [place] 00 bedtime. Medical Branch ARIPiprazol 2-0 Yes 5mg Take 5 mg U nivers e 5 mg 4-12 by mouth ity of tablet 00:00: at [place] 00 bedtime. Medical Branch ivermectin 2-0 Yes [id number] 13.5mg Take 4.5 [facility] 3 mg tablet 1-12 tablets by it y of 00:00: mouth [place] 00 weekly. Medical Branch ivermectin 2021-0 Yes [id number] 13.5mg Take 4.5 [facility] 3 mg tablet 1-12 tablets by it y of 00:00: mouth [place] 00 weekly. Medical Branch ivermectin 2021-0 Yes [id number] 13.5mg Take 4.5 [facility] 3 mg tablet 1-12 tablets by it y of 00:00: mouth [place] 00 weekly. Medical Branch ivermectin 2021-0 Yes [id number] 13.5mg Take 4.5 [facility] 3 mg tablet 1-12 tablets by it y of 00:00: mouth [place] 00 weekly. Medical Branch ivermectin 2021-0 Yes [id number] 13.5mg Take 4.5 [facility] 3 mg tablet 1-12 tablets by it y of 00:00: mouth [place] 00 weekly. Medical Branch ivermectin 2021-0 Yes [id number] 13.5mg Take 4.5 [facility] 3 mg tablet 1-12 tablets by it y of 00:00: mouth [place] 00 weekly. Medical Branch ivermectin 2021-0 Yes [id number] 13.5mg Take 4.5 [facility] 3 mg tablet 1-12 tablets by it y of 00:00: mouth [place] 00 weekly. Medical Branch ivermectin 2-0 Yes [id number] 13.5mg Take 4.5 [facility] 3 mg tablet 1-12 tablets by it y of 00:00: mouth [place] 00 weekly. Medical Branch ivermectin 2-0 Yes [id number] 13.5mg Take 4.5 [facility] 3 mg tablet 1-12 tablets by it y of 00:00: mouth [place] 00 weekly. Medical Branch ivermectin 2021-0 Yes [id number] 13.5mg Take 4.5 [facility] 3 mg tablet 1-12 tablets by it y of 00:00: mouth [place] 00 weekly. Medical Branch ivermectin 2-0 Yes [id number] 13.5mg Take 4.5 [facility] 3 mg tablet 1-12 tablets by it y of 00:00: mouth [place] 00 weekly. Medical Branch ivermectin 2021-0 Yes [id number] 13.5mg Take 4.5 [facility] 3 mg tablet 1-12 tablets by it y of 00:00: mouth [place] 00 weekly. Medical Branch ivermectin 2021-0 Yes [id number] 13.5mg Take 4.5 [facility] 3 mg tablet 1-12 tablets by it y of 00:00: mouth [place] 00 weekly. Medical Branch ivermectin 2021-0 Yes [id number] 13.5mg Take 4.5 [facility] 3 mg tablet 1-12 tablets by it y of 00:00: mouth [place] 00 weekly. Medical Branch ivermectin 2021-0 Yes [id number] 13.5mg Take 4.5 [facility] 3 mg tablet 1-12 tablets by it y of 00:00: mouth [place] 00 weekly. Medical Branch ivermectin 2021-0 Yes [id number] 13.5mg Take 4.5 [facility] 3 mg tablet 1-12 tablets by it y of 00:00: mouth [place] 00 weekly. Medical Branch ivermectin 2021-0 Yes [id number] 13.5mg Take 4.5 [facility] 3 mg tablet 1-12 tablets by it y of 00:00: mouth [place] 00 weekly. Medical Branch ivermectin 2021-0 Yes [id number] 13.5mg Take 4.5 [facility] 3 mg tablet 1-12 tablets by it y of 00:00: mouth [place] 00 weekly. Medical Branch ivermectin 2-0 Yes [id number] 13.5mg Take 4.5 [facility] 3 mg tablet 1-12 tablets by it y of 00:00: mouth [place] 00 weekly. Medical Branch ivermectin 2021-0 Yes [id number] 13.5mg Take 4.5 [facility] 3 mg tablet 1-12 tablets by it y of 00:00: mouth [place] 00 weekly. Medical Branch ivermectin 2-0 Yes [id number] 13.5mg Take 4.5 [facility] 3 mg tablet 1-12 tablets by it y of 00:00: mouth [place] 00 weekly. Medical Branch ivermectin 2021-0 Yes [id number] 13.5mg Take 4.5 [facility] 3 mg tablet 1-12 tablets by it y of 00:00: mouth [place] 00 weekly. Medical Branch ivermectin 2-0 Yes [id number] 13.5mg Take 4.5 [facility] 3 mg tablet 1-12 tablets by it y of 00:00: mouth [place] 00 weekly. Medical Branch ivermectin 2-0 Yes [id number] 13.5mg Take 4.5 [facility] 3 mg tablet 1-12 tablets by it y of 00:00: mouth [place] 00 weekly. Medical Branch ivermectin 2-0 Yes [id number] 13.5mg Take 4.5 [facility] 3 mg tablet 1-12 tablets by it y of 00:00: mouth [place] 00 weekly. Medical Branch ivermectin 2021-0 Yes [id number] 13.5mg Take 4.5 [facility] 3 mg tablet 1-12 tablets by it y of 00:00: mouth [place] 00 weekly. Medical Branch ivermectin 2021-0 Yes [id number] 13.5mg Take 4.5 [facility] 3 mg tablet 1-12 tablets by it y of 00:00: mouth [place] 00 weekly. Medical Branch ivermectin 2-0 Yes [id number] 13.5mg Take 4.5 [facility] 3 mg tablet 1-12 tablets by it y of 00:00: mouth [place] 00 weekly. Medical Branch ivermectin 2021-0 Yes [id number] 13.5mg Take 4.5 [facility] 3 mg tablet 1-12 tablets by it y of 00:00: mouth [place] 00 weekly. Medical Branch ivermectin 2-0 Yes [id number] 13.5mg Take 4.5 [facility] 3 mg tablet 1-12 tablets by it y of 00:00: mouth [place] 00 weekly. Medical Branch ivermectin 2-0 Yes [id number] 13.5mg Take 4.5 [facility] 3 mg tablet 1-12 tablets by it y of 00:00: mouth [place] 00 weekly. Medical Branch ivermectin 2-0 Yes [id number] 13.5mg Take 4.5 [facility] 3 mg tablet 1-12 tablets by it y of 00:00: mouth [place] 00 weekly. Medical Branch ivermectin 2-0 Yes [id number] 13.5mg Take 4.5 [facility] 3 mg tablet 1-12 tablets by it y of 00:00: mouth [place] 00 weekly. Medical Branch ivermectin 2-0 Yes [id number] 13.5mg Take 4.5 [facility] 3 mg tablet 1-12 tablets by it y of 00:00: mouth [place] 00 weekly. Medical Branch ivermectin 2021-0 Yes [id number] 13.5mg Take 4.5 [facility] 3 mg tablet 1-12 tablets by it y of 00:00: mouth 00 weekly. Medical Branch ivermectin 2021-0 Yes [id number] 13.5mg Take 4.5 [facility] 3 mg tablet 1-12 tablets by it y of 00:00: mouth 00 weekly. Medical Branch ivermectin 2021-0 Yes [id number] 13.5mg Take 4.5 [facility] 3 mg tablet 1-12 tablets by it y of 00:00: mouth 00 weekly. Medical Branch ivermectin 0 Yes [id number] 13.5mg Take 4.5 [facility] 3 mg tablet 1-12 tablets by it y of 00:00: mouth 00 weekly. Medical Branch trazodone 2020-10 Yes Take by Unive rs HCl 29 mouth. ity of (TRAZODONE 13:30: [place] ORAL) Medical Branch citalopram 2020-10 Yes 10mg Take 10 mg U nivers 10 mg -29 by mouth ity of tablet 13:30: daily. Medical Branch trazodone 2020-10 Yes Take by Univ ers HCl 11-06 mouth. ity of (TRAZODONE 13:30: [...] mouth. ity of (TRAZODONE 13:30: [place] ORAL) [facility] Branch citalopram 2020-10 Yes 10mg Take 10 mg U nivers 10 mg 1-29 by mouth ity of tablet 13:30: daily. [facility] Branch trazodone 2020-10 Yes Take by Unive rs HCl 1-29 mouth. ity of (TRAZODONE 13:30: [place] ORAL) Medical Branch citalopram 2020-10 Yes 10mg Take 10 mg U nivers 10 mg 1-29 by mouth ity of tablet 13:30: daily. [facility] Branch trazodone 2020-10 Yes Take by Unive [...] mouth. ity of (TRAZODONE 13:30: [place] ORAL) [facility] Branch citalopram 2020-10 Yes 10mg Take 10 mg U nivers 10 mg 1-29 by mouth ity of tablet 13:30: daily. Medical Branch trazodone 2020-10 Yes Take by Unive rs HCl 29 mouth. ity of (TRAZODONE 13:30: [place] ORAL) [facility] Branch citalopram 2020-10 Yes 10mg Take 10 mg U nivers 10 mg 1-29 by mouth ity of tablet 13:30: daily. [facility] Branch trazodone 2020-10 Yes Take by Unive rs HCl 11-06 mouth. ity of (TRAZODONE 13:30: [place] ORAL) [facility] Branch citalopram 2020-10 Yes 10mg Take 10 mg U nivers 10 mg 1-29 by mouth ity of tablet 13:30: daily. [facility] Branch trazodone 2020-10 Yes Take by Unive rs HCl 29 mouth. ity of (TRAZODONE 13:30: [place] ORAL) Medical Branch citalopram 2020-10 Yes 10mg Take 10 mg U nivers 10 mg 1-29 by mouth ity of tablet 13:30: daily. Medical Branch trazodone 2020-10 Yes Take by Unive rs HCl 29 mouth. ity of (TRAZODONE 13:30: [place] ORAL) [facility] Branch citalopram 2020-10 Yes 10mg Take 10 mg U nivers 10 mg 1-29 by mouth ity of tablet 13:30: daily. Medical Branch trazodone 2020-10 Yes Take by Unive rs HCl 29 mouth. ity of (TRAZODONE 13:30: [place] ORAL) [facility] Branch citalopram 2020-10 Yes 10mg Take 10 [...] by mouth ity of tablet 13:30: daily. [facility] Branch trazodone 2020-10 Yes Take by Unive rs HCl 11-06 mouth. ity of (TRAZODONE 13:30: [place] ORAL) [facility] citalopram 2020-10 Yes 10mg Take 10 mg U nivers 10 mg 1-29 by mouth ity of tablet 13:30: daily. [facility] Branch trazodone 2020-10 Yes Take by Unive rs HCl 11-06 mouth. ity of (TRAZODONE 13:30: [place] ORAL) [facility] citalopram 2020-10 Yes 10mg Take 10 mg U nivers 10 mg 1-29 by mouth ity of tablet 13:30: daily. [facility] trazodone 2020-10 Yes Take by Univ ers HCl 11-06 mouth. ity of (TRAZODONE 13:30: [place] ORAL) [facility] citalopram 2020-10 Yes 10mg Take 10 mg U nivers 10 mg 1-29 by mouth ity of tablet 13:30: daily. [facility] trazodone 2020-10 Yes Take by Unive rs HCl 11-06 mouth. ity of (TRAZODONE 13:30: [place] ORAL) [facility] citalopram 2020-10 Yes 10mg Take 10 mg U nivers 10 mg 1-29 by mouth ity of tablet 13:30: daily. [facility] trazodone 2020-10 Yes Take by Unive rs HCl 11-06 mouth. ity of (TRAZODONE 13:30: [place] ORAL) [facility] citalopram 2020-10 Yes 10mg Take 10 mg U nivers 10 mg 1-29 by mouth ity of tablet 13:30: daily. [facility] Branch trazodone 2020-10 Yes Take by Unive rs HCl 29 mouth. ity of (TRAZODONE 13:30: [place] ORAL) [facility] citalopram 2020-10 Yes 10mg Take 10 mg U nivers 10 mg 1-29 by mouth ity of tablet 13:30: daily. [facility] trazodone 2020-10 Yes Take by Unive rs HCl 29 mouth. ity of (TRAZODONE 13:30: [place] ORAL) Medical Branch citalopram 2020-10 Yes 10mg Take 10 mg U nivers 10 mg 1-29 by mouth ity of tablet 13:30: daily. Medical Branch trazodone 2020-10 Yes Take by Unive rs HCl 11-06 mouth. ity of (TRAZODONE 13:30: [place] ORAL) [facility] Branch citalopram 2020-10 Yes 10mg Take 10 mg U nivers 10 mg 1-29 by mouth ity of tablet 13:30: daily. [facility] Branch trazodone 2020-10 Yes Take by Unive rs HCl 11-06 mouth. ity of (TRAZODONE 13:30: [place] ORAL) [facility] Branch citalopram 2020-10 Yes 10mg Take 10 mg U nivers 10 mg 1-29 by mouth ity of tablet 13:30: daily. [facility] Branch trazodone 2020-10 Yes Take by Unive rs HCl 11-06 mouth. ity of (TRAZODONE 13:30: [place] ORAL) [facility] citalopram 2020-10 Yes 10mg Take 10 mg U nivers 10 mg 1-29 by mouth ity of tablet 13:30: daily. [facility] trazodone 2020-10 Yes Take by Unive rs HCl 11-06 mouth. ity of (TRAZODONE 13:30: [place] ORAL) [facility] citalopram 2020-10 Yes 10mg Take 10 mg U nivers 10 mg 1-29 by mouth ity of tablet 13:30: daily. [facility] trazodone 2020-10 Yes Take by Unive rs HCl 29 mouth. ity of (TRAZODONE 13:30: [place] ORAL) [facility] citalopram 2020-10 Yes 10mg Take 10 mg U nivers 10 mg 1-29 by mouth ity of tablet 13:30: daily. [facility] trazodone 2020-10 Yes Take by Unive rs HCl 29 mouth. ity of (TRAZODONE 13:30: [place] ORAL) [facility] citalopram 2020-10 Yes 10mg Take 10 mg U nivers 10 mg 1-29 by mouth ity of tablet 13:30: daily. [place] [facility] trazodone 2020-10 Yes Take by Unive rs HCl 11-06 mouth. ity of (TRAZODONE 13:30: [place] ORAL) [facility] citalopram 2020-10 Yes 10mg Take 10 mg U nivers 10 mg 11-06 by mouth ity of tablet 13:30: daily. [place] [facility] cetirizine Yes [id number] 10mg Take 1 Tab Univers (ZYRTEC) 10 1-03 by mouth ity of mg tablet 00:00: daily. [place] [facility] cetirizine Yes [id number] 10mg Take 1 [facility] (ZYRTEC) 10 1-03 by mouth ity of mg tablet 00:00: daily. [place] [facility] cetirizine Yes [id number] 10mg Take 1 [facility] (ZYRTEC) 10 1-03 by mouth ity of mg tablet 00:00: daily. [place] [facility] cetirizine Yes [id number] 10mg Take 1 [facility] (ZYRTEC) 10 1-03 by mouth ity of mg tablet 00:00: daily. [place] [facility] cetirizine Yes [id number] 10mg Take 1 [facility] (ZYRTEC) 10 1-03 by mouth ity of mg tablet 00:00: daily. [place] [facility] cetirizine Yes [id number] 10mg Take 1 [facility] (ZYRTEC) 10 1-03 by mouth ity of mg tablet 00:00: daily. [place] [facility] cetirizine Yes [id number] 10mg Take 1 [facility] (ZYRTEC) 10 1-03 by mouth ity of mg tablet 00:00: daily. [place] [facility] cetirizine Yes [id number] 10mg Take 1 [facility] (ZYRTEC) 10 1-03 by mouth ity of mg tablet 00:00: daily. [place] [facility] cetirizine Yes [id number] 10mg Take 1 [facility] (ZYRTEC) 10 1-03 by mouth ity of mg tablet 00:00: daily. [place] [facility] cetirizine Yes [id number] 10mg Take 1 [facility] (ZYRTEC) 10 1-03 by mouth ity of mg tablet 00:00: daily. [facility] cetirizine Yes [id number] 10mg Take 1 [facility] (ZYRTEC) 10 1-03 by mouth ity of mg tablet 00:00: daily. [facility] cetirizine Yes [id number] 10mg Take 1 [facility] (ZYRTEC) 10 1-03 by mouth ity of mg tablet 00:00: daily. [facility] cetirizine Yes [id number] 10mg Take 1 Tab [facility] (ZYRTEC) 10 1-03 by mouth ity of mg tablet 00:00: daily. [facility] cetirizine Yes [id number] 10mg Take 1 Tab [facility] (ZYRTEC) 10 1-03 by mouth ity of mg tablet 00:00: daily. [facility] cetirizine Yes [id number] 10mg Take 1 Tab [facility] (ZYRTEC) 10 1-03 by mouth ity of mg tablet 00:00: daily. [facility] cetirizine Yes [id number] 10mg Take 1 [facility] (ZYRTEC) 10 1-03 by mouth ity of mg tablet 00:00: daily. [facility] cetirizine Yes [id number] 10mg Take 1 Tab [facility] (ZYRTEC) 10 1-03 by mouth ity of mg tablet 00:00: daily. [facility] cetirizine Yes [id number] 10mg Take 1 Tab [facility] (ZYRTEC) 10 1-03 by mouth ity of mg tablet 00:00: daily. [facility] cetirizine Yes [id number] 10mg Take 1 [facility] (ZYRTEC) 10 1-03 by mouth ity of mg tablet 00:00: daily. [facility] cetirizine Yes [id number] 10mg Take 1 Tab [facility] (ZYRTEC) 10 1-03 by mouth ity of mg tablet 00:00: daily. [facility] cetirizine Yes [id number] 10mg Take 1 [facility] (ZYRTEC) 10 1-03 by mouth ity of mg tablet 00:00: daily. [facility] cetirizine Yes [id number] 10mg Take 1 [facility] (ZYRTEC) 10 1-03 by mouth ity of mg tablet 00:00: daily. [facility] cetirizine Yes [id number] 10mg Take 1 Tab Univers (ZYRTEC) 10 1-03 by mouth ity of mg tablet 00:00: daily. [facility] cetirizine Yes [id number] 10mg Take 1 Tab Univers (ZYRTEC) 10 1-03 by mouth ity of mg tablet 00:00: daily. [facility] cetirizine Yes [id number] 10mg Take 1 Tab Univers (ZYRTEC) 10 1-03 by mouth ity of mg tablet 00:00: daily. [facility] cetirizine Yes [id number] 10mg Take 1 Tab Univers (ZYRTEC) 10 1-03 by mouth ity of mg tablet 00:00: daily. [facility] cetirizine Yes [id number] 10mg Take 1 Tab Univers (ZYRTEC) 10 1-03 by mouth ity of mg tablet 00:00: daily. [facility] cetirizine Yes [id number] 10mg Take 1 Tab Univers (ZYRTEC) 10 1-03 by mouth ity of mg tablet 00:00: daily. [facility] cetirizine Yes [id number] 10mg Take 1 Tab Univers (ZYRTEC) 10 1-03 by mouth ity of mg tablet 00:00: daily. [facility] cetirizine Yes [id number] 10mg Take 1 Tab Univers (ZYRTEC) 10 1-03 by mouth ity of mg tablet 00:00: daily. [facility] cetirizine Yes [id number] 10mg Take 1 Tab Univers (ZYRTEC) 10 1-03 by mouth ity of mg tablet 00:00: daily. [facility] cetirizine Yes [id number] 10mg Take 1 Tab Univers (ZYRTEC) 10 1-03 by mouth ity of mg tablet 00:00: daily. [place] [facility] cetirizine Yes [id number] 10mg Take 1 Tab Univers (ZYRTEC) 10 1-03 by mouth ity of mg tablet 00:00: daily. [place] [facility] cetirizine Yes [id number] 10mg Take 1 Tab Univers (ZYRTEC) 10 1-03 by mouth ity of mg tablet 00:00: daily. [place] [facility] cetirizine Yes [id number] 10mg Take 1 Tab Univers (ZYRTEC) 10 1-03 by mouth ity of mg tablet 00:00: daily. [place] [facility] cetirizine Yes [id number] 10mg Take 1 Tab Univers (ZYRTEC) 10 1-03 by mouth ity of mg tablet 00:00: daily. [place] [facility] cetirizine Yes [id number] 10mg Take 1 Tab Univers (ZYRTEC) 10 1-03 by mouth ity of mg tablet 00:00: daily. [place] [facility] cetirizine Yes [id number] 10mg Take 1 Tab Univers (ZYRTEC) 10 1-03 by mouth ity of mg tablet 00:00: daily. [address] Immunizations Ordered Immunization Filled Immunization Date Status Commen ts Source Name Name SARS-COV-2 COVID-19 2021-09-06 Completed Unive rsity of PFIZER VACCINE 00:00:00 [facility] SARS-COV-2 COVID-19 2021-09-06 Completed Unive rsity of PFIZER VACCINE 00:00:00 [facility] SARS-COV-2 COVID-19 2021-09-06 Completed Unive rsity of PFIZER VACCINE 00:00:00 [facility] SARS-COV-2 COVID-19 2021-09-06 Completed Unive rsity of PFIZER VACCINE 00:00:00 [facility] SARS-COV-2 COVID-19 2021-09-06 Completed Unive rsity of PFIZER VACCINE 00:00:00 [facility] SARS-COV-2 COVID-19 2021-09-06 Completed Unive rsity of PFIZER VACCINE 00:00:00 [facility] SARS-COV-2 COVID-19 2021-09-06 Completed Unive rsity of PFIZER VACCINE 00:00:00 [facility] SARS-COV-2 COVID-19 2021-09-06 Completed Unive rsity of PFIZER VACCINE 00:00:00 [facility] SARS-COV-2 COVID-19 2021-09-06 Completed Unive rsity of PFIZER VACCINE 00:00:00 [facility] SARS-COV-2 COVID-19 2021-09-06 Completed Unive rsity of PFIZER VACCINE 00:00:00 [facility] SARS-COV-2 COVID-19 2021-09-06 Completed Unive rsity of PFIZER VACCINE 00:00:00 [facility] SARS-COV-2 COVID-19 2021-09-06 Completed Unive rsity of PFIZER VACCINE 00:00:00 [facility] SARS-COV-2 COVID-19 2021-09-06 Completed Unive rsity of PFIZER VACCINE 00:00:00 [facility] SARS-COV-2 COVID-19 2021-09-06 Completed Unive rsity of PFIZER VACCINE 00:00:00 [facility] SARS-COV-2 COVID-19 2021-09-06 Completed Unive rsity of PFIZER VACCINE 00:00:00 [facility] SARS-COV-2 COVID-19 2021-09-06 Completed Unive rsity of PFIZER VACCINE 00:00:00 [facility] SARS-COV-2 COVID-19 2021-09-06 Completed Unive rsity of PFIZER VACCINE 00:00:00 [facility] SARS-COV-2 COVID-19 2021-09-06 Completed Unive rsity of PFIZER VACCINE 00:00:00 [facility] SARS-COV-2 COVID-19 2021-09-06 Completed Unive rsity of PFIZER VACCINE 00:00:00 [facility] SARS-COV-2 COVID-19 2021-09-06 Completed Unive rsity of PFIZER VACCINE 00:00:00 [facility] SARS-COV-2 COVID-19 2021-09-06 Completed Unive rsity of PFIZER VACCINE 00:00:00 [facility] SARS-COV-2 COVID-19 2021-09-06 Completed Unive rsity of PFIZER VACCINE 00:00:00 [facility] SARS-COV-2 COVID-19 2021-09-06 Completed Unive rsity of PFIZER VACCINE 00:00:00 [facility] SARS-COV-2 COVID-19 2021-09-06 Completed Unive rsity of PFIZER VACCINE 00:00:00 [facility] SARS-COV-2 COVID-19 2021-09-06 Completed Unive rsity of PFIZER VACCINE 00:00:00 [facility] SARS-COV-2 COVID-19 2021-09-06 Completed Unive rsity of PFIZER VACCINE 00:00:00 [facility] SARS-COV-2 COVID-19 2021-09-06 Completed Unive rsity of PFIZER VACCINE 00:00:00 [facility] SARS-COV-2 COVID-19 2021-09-06 Completed Unive rsity of PFIZER VACCINE 00:00:00 [facility] SARS-COV-2 COVID-19 2021-09-06 Completed Unive rsity of PFIZER VACCINE 00:00:00 [facility] SARS-COV-2 COVID-19 2021-09-06 Completed Unive rsity of PFIZER VACCINE 00:00:00 [facility] SARS-COV-2 COVID-19 2021-09-06 Completed Unive rsity of PFIZER VACCINE 00:00:00 [facility] SARS-COV-2 COVID-19 2021-09-06 Completed Unive rsity of PFIZER VACCINE 00:00:00 [facility] SARS-COV-2 COVID-19 2021-09-06 Completed Unive rsity of PFIZER VACCINE 00:00:00 [facility] SARS-COV-2 COVID-19 2021-09-06 Completed Unive rsity of PFIZER VACCINE 00:00:00 [facility] SARS-COV-2 COVID-19 2021-09-06 Completed Unive rsity of PFIZER VACCINE 00:00:00 [facility] SARS-COV-2 COVID-19 2021-09-06 Completed Unive rsity of PFIZER VACCINE 00:00:00 [facility] SARS-COV-2 COVID-19 2021-09-06 Completed Unive rsity of PFIZER VACCINE 00:00:00 [facility] SARS-COV-2 COVID-19 2021-09-06 Completed Unive rsity of PFIZER VACCINE 00:00:00 [facility] SARS-COV-2 COVID-19 2021-02-06 Completed Unive rsity of PFIZER VACCINE 00:00:00 [facility] SARS-COV-2 COVID-19 2021-02-06 Completed Unive rsity of PFIZER VACCINE 00:00:00 [facility] SARS-COV-2 COVID-19 2021-02-06 Completed Unive rsity of PFIZER VACCINE 00:00:00 [facility] SARS-COV-2 COVID-19 2021-02-06 Completed Unive rsity of PFIZER VACCINE 00:00:00 [facility] SARS-COV-2 COVID-19 2021-02-06 Completed Unive rsity of PFIZER VACCINE 00:00:00 [facility] SARS-COV-2 COVID-19 2021-02-06 Completed Unive rsity of PFIZER VACCINE 00:00:00 [facility] SARS-COV-2 COVID-19 2021-02-06 Completed Unive rsity of PFIZER VACCINE 00:00:00 [facility] SARS-COV-2 COVID-19 2021-02-06 Completed Unive rsity of PFIZER VACCINE 00:00:00 [facility] SARS-COV-2 COVID-19 2021-02-06 Completed Unive rsity of PFIZER VACCINE 00:00:00 [facility] SARS-COV-2 COVID-19 2021-02-06 Completed Unive rsity of PFIZER VACCINE 00:00:00 [facility] SARS-COV-2 COVID-19 2021-02-06 Completed Unive rsity of PFIZER VACCINE 00:00:00 [facility] SARS-COV-2 COVID-19 2021-02-06 Completed Unive rsity of PFIZER VACCINE 00:00:00 [facility] SARS-COV-2 COVID-19 2021-02-06 Completed Unive rsity of PFIZER VACCINE 00:00:00 [facility] SARS-COV-2 COVID-19 2021-02-06 Completed Unive rsity of PFIZER VACCINE 00:00:00 [facility] SARS-COV-2 COVID-19 2021-02-06 Completed Unive rsity of PFIZER VACCINE 00:00:00 [facility] SARS-COV-2 COVID-19 2021-02-06 Completed Unive rsity of PFIZER VACCINE 00:00:00 [facility] SARS-COV-2 COVID-19 2021-02-06 Completed Unive rsity of PFIZER VACCINE 00:00:00 [facility] SARS-COV-2 COVID-19 2021-02-06 Completed Unive rsity of PFIZER VACCINE 00:00:00 [facility] SARS-COV-2 COVID-19 2021-02-06 Completed Unive rsity of PFIZER VACCINE 00:00:00 [facility] SARS-COV-2 COVID-19 2021-02-06 Completed Unive rsity of PFIZER VACCINE 00:00:00 [facility] SARS-COV-2 COVID-19 2021-02-06 Completed Unive rsity of PFIZER VACCINE 00:00:00 [facility] SARS-COV-2 COVID-19 2021-02-06 Completed Unive rsity of PFIZER VACCINE 00:00:00 [facility] SARS-COV-2 COVID-19 2021-02-06 Completed Unive rsity of PFIZER VACCINE 00:00:00 [facility] SARS-COV-2 COVID-19 2021-02-06 Completed Unive rsity of PFIZER VACCINE 00:00:00 [facility] SARS-COV-2 COVID-19 2021-02-06 Completed Unive rsity of PFIZER VACCINE 00:00:00 [facility] SARS-COV-2 COVID-19 2021-02-06 Completed Unive rsity of PFIZER VACCINE 00:00:00 [facility] SARS-COV-2 COVID-19 2021-02-06 Completed Unive rsity of PFIZER VACCINE 00:00:00 [facility] SARS-COV-2 COVID-19 2021-02-06 Completed Unive rsity of PFIZER VACCINE 00:00:00 [facility] SARS-COV-2 COVID-19 2021-02-06 Completed Unive rsity of PFIZER VACCINE 00:00:00 [facility] SARS-COV-2 COVID-19 2021-02-06 Completed Unive rsity of PFIZER VACCINE 00:00:00 [facility] SARS-COV-2 COVID-19 2021-02-06 Completed Unive rsity of PFIZER VACCINE 00:00:00 [facility] SARS-COV-2 COVID-19 2021-02-06 Completed Unive rsity of PFIZER VACCINE 00:00:00 [facility] SARS-COV-2 COVID-19 2021-02-06 Completed Unive rsity of PFIZER VACCINE 00:00:00 [facility] SARS-COV-2 COVID-19 2021-02-06 Completed Unive rsity of PFIZER VACCINE 00:00:00 [facility] SARS-COV-2 COVID-19 2021-02-06 Completed Unive rsity of PFIZER VACCINE 00:00:00 [facility] SARS-COV-2 COVID-19 2021-02-06 Completed Unive rsity of PFIZER VACCINE 00:00:00 [facility] SARS-COV-2 COVID-19 2021-02-06 Completed Unive rsity of PFIZER VACCINE 00:00:00 [facility] SARS-COV-2 COVID-19 2021-02-06 Completed Unive rsity of PFIZER VACCINE 00:00:00 [facility] SARS-COV-2 COVID-19 2021-01-16 Completed Unive rsity of PFIZER VACCINE 00:00:00 [facility] SARS-COV-2 COVID-19 2021-01-16 Completed Unive rsity of PFIZER VACCINE 00:00:00 [facility] SARS-COV-2 COVID-19 2021-01-16 Completed Unive rsity of PFIZER VACCINE 00:00:00 [facility] SARS-COV-2 COVID-19 2021-01-16 Completed Unive rsity of PFIZER VACCINE 00:00:00 [facility] SARS-COV-2 COVID-19 2021-01-16 Completed Unive rsity of PFIZER VACCINE 00:00:00 [facility] SARS-COV-2 COVID-19 2021-01-16 Completed Unive rsity of PFIZER VACCINE 00:00:00 [facility] SARS-COV-2 COVID-19 2021-01-16 Completed Unive rsity of PFIZER VACCINE 00:00:00 [facility] SARS-COV-2 COVID-19 2021-01-16 Completed Unive rsity of PFIZER VACCINE 00:00:00 [place] [facility] SARS-COV-2 COVID-19 2021-01-16 Completed Unive rsity of PFIZER VACCINE 00:00:00 [facility] SARS-COV-2 COVID-19 2021-01-16 Completed Unive rsity of PFIZER VACCINE 00:00:00 [facility] SARS-COV-2 COVID-19 2021-01-16 Completed Unive rsity of PFIZER VACCINE 00:00:00 [facility] SARS-COV-2 COVID-19 2021-01-16 Completed Unive rsity of PFIZER VACCINE 00:00:00 [facility] SARS-COV-2 COVID-19 2021-01-16 Completed Unive rsity of PFIZER VACCINE 00:00:00 [facility] SARS-COV-2 COVID-19 2021-01-16 Completed Unive rsity of PFIZER VACCINE 00:00:00 [facility] SARS-COV-2 COVID-19 2021-01-16 Completed Unive rsity of PFIZER VACCINE 00:00:00 [facility] SARS-COV-2 COVID-19 2021-01-16 Completed Unive rsity of PFIZER VACCINE 00:00:00 [facility] SARS-COV-2 COVID-19 2021-01-16 Completed Unive rsity of PFIZER VACCINE 00:00:00 [facility] SARS-COV-2 COVID-19 2021-01-16 Completed Unive rsity of PFIZER VACCINE 00:00:00 [facility] SARS-COV-2 COVID-19 2021-01-16 Completed Unive rsity of PFIZER VACCINE 00:00:00 [facility] SARS-COV-2 COVID-19 2021-01-16 Completed Unive rsity of PFIZER VACCINE 00:00:00 [facility] SARS-COV-2 COVID-19 2021-01-16 Completed Unive rsity of PFIZER VACCINE 00:00:00 [facility] SARS-COV-2 COVID-19 2021-01-16 Completed Unive rsity of PFIZER VACCINE 00:00:00 [facility] SARS-COV-2 COVID-19 2021-01-16 Completed Unive rsity of PFIZER VACCINE 00:00:00 [facility] SARS-COV-2 COVID-19 2021-01-16 Completed Unive rsity of PFIZER VACCINE 00:00:00 [facility] SARS-COV-2 COVID-19 2021-01-16 Completed Unive rsity of PFIZER VACCINE 00:00:00 [facility] SARS-COV-2 COVID-19 2021-01-16 Completed Unive rsity of PFIZER VACCINE 00:00:00 [facility] SARS-COV-2 COVID-19 2021-01-16 Completed Unive rsity of PFIZER VACCINE 00:00:00 [facility] SARS-COV-2 COVID-19 2021-01-16 Completed Unive rsity of PFIZER VACCINE 00:00:00 [facility] SARS-COV-2 COVID-19 2021-01-16 Completed Unive rsity of PFIZER VACCINE 00:00:00 [facility] SARS-COV-2 COVID-19 2021-01-16 Completed Unive rsity of PFIZER VACCINE 00:00:00 [facility] SARS-COV-2 COVID-19 2021-01-16 Completed Unive rsity of PFIZER VACCINE 00:00:00 [facility] SARS-COV-2 COVID-19 2021-01-16 Completed Unive rsity of PFIZER VACCINE 00:00:00 [facility] SARS-COV-2 COVID-19 2021-01-16 Completed Unive rsity of PFIZER VACCINE 00:00:00 [facility] SARS-COV-2 COVID-19 2021-01-16 Completed Unive rsity of PFIZER VACCINE 00:00:00 [facility] SARS-COV-2 COVID-19 2021-01-16 Completed Unive rsity of PFIZER VACCINE 00:00:00 [facility] SARS-COV-2 COVID-19 2021-01-16 Completed Unive rsity of PFIZER VACCINE 00:00:00 [facility] SARS-COV-2 COVID-19 2021-01-16 Completed Unive rsity of PFIZER VACCINE 00:00:00 [facility] SARS-COV-2 COVID-19 2021-01-16 Completed Unive rsity of PFIZER VACCINE 00:00:00 [facility] HEPATITIS A 2014-01-23 Completed [facility] 00:00:00 [facility] Heamophilus Influenza 2014-01-23 Completed Uni versity of B 00:00:00 [facility] HEPATITIS A 2014-01-23 Completed [facility] 00:00:00 [facility] Heamophilus Influenza 2014-01-23 Completed Uni vers[facility] of B 00:00:00 [facility] HEPATITIS A 2014-01-23 Completed [facility] of 00:00:00 [facility] Heamophilus Influenza 2014-01-23 Completed Uni versity of B 00:00:00 [facility] HEPATITIS A 2014-01-23 Completed University of 00:00:00 [facility] Heamophilus Influenza 2014-01-23 Completed Uni versity of B 00:00:00 [facility] HEPATITIS A 2014-01-23 Completed University of 00:00:00 [facility] Heamophilus Influenza 2014-01-23 Completed Uni versity of B 00:00:00 [facility] HEPATITIS A 2014-01-23 Completed University of 00:00:00 [facility] Heamophilus Influenza 2014-01-23 Completed Uni versity of B 00:00:00 [facility] HEPATITIS A 2014-01-23 Completed University of 00:00:00 [facility] Heamophilus Influenza 2014-01-23 Completed Uni versity of B 00:00:00 [facility] HEPATITIS A 2014-01-23 Completed University of 00:00:00 [facility] Heamophilus Influenza 2014-01-23 Completed Uni versity of B 00:00:00 [facility] HEPATITIS A 2014-01-23 Completed University of 00:00:00 [facility] Heamophilus Influenza 2014-01-23 Completed Uni versity of B 00:00:00 [facility] HEPATITIS A 2014-01-23 Completed University of 00:00:00 [facility] Heamophilus Influenza 2014-01-23 Completed Uni versity of B 00:00:00 [facility] HEPATITIS A 2014-01-23 Completed University of 00:00:00 [facility] Heamophilus Influenza 2014-01-23 Completed Uni versity of B 00:00:00 [facility] HEPATITIS A 2014-01-23 Completed University of 00:00:00 [facility] Heamophilus Influenza 2014-01-23 Completed Uni vers[facility] of B 00:00:00 [facility] HEPATITIS A 2014-01-23 Completed [facility] of 00:00:00 [facility] Heamophilus Influenza 2014-01-23 Completed Uni vers[facility] of B 00:00:00 [facility] HEPATITIS A 2014-01-23 Completed [facility] of 00:00:00 [facility] Heamophilus Influenza 2014-01-23 Completed Uni vers[facility] of B 00:00:00 [facility] HEPATITIS A 2014-01-23 Completed [facility] 00:00:00 [facility] Heamophilus Influenza 2014-01-23 Completed Uni vers[facility] of B 00:00:00 [facility] HEPATITIS A 2014-01-23 Completed University of 00:00:00 [facility] Heamophilus Influenza 2014-01-23 Completed Uni vers[facility] of B 00:00:00 [facility] HEPATITIS A 2014-01-23 Completed [facility] 00:00:00 [facility] Heamophilus Influenza 2014-01-23 Completed Uni versity of B 00:00:00 [facility] HEPATITIS A 2014-01-23 Completed [facility] of 00:00:00 [facility] Heamophilus Influenza 2014-01-23 Completed Uni versity of B 00:00:00 [facility] HEPATITIS A 2014-01-23 Completed [facility] of 00:00:00 [facility] Heamophilus Influenza 2014-01-23 Completed Uni versity of B 00:00:00 [facility] HEPATITIS A 2014-01-23 Completed [facility] of 00:00:00 [facility] Heamophilus Influenza 2014-01-23 Completed Uni versity of B 00:00:00 [facility] HEPATITIS A 2014-01-23 Completed [facility] of 00:00:00 [facility] Heamophilus Influenza 2014-01-23 Completed Uni versity of B 00:00:00 [facility] HEPATITIS A 2014-01-23 Completed [facility] of 00:00:00 [facility] Heamophilus Influenza 2014-01-23 Completed Uni versity of B 00:00:00 [facility] HEPATITIS A 2014-01-23 Completed [facility] of 00:00:00 [facility] Heamophilus Influenza 2014-01-23 Completed Uni versity of B 00:00:00 [facility] HEPATITIS A 2014-01-23 Completed [facility] of 00:00:00 [facility] Heamophilus Influenza 2014-01-23 Completed Uni versity of B 00:00:00 [facility] HEPATITIS A 2014-01-23 Completed [facility] of 00:00:00 [facility] Heamophilus Influenza 2014-01-23 Completed Uni versity of B 00:00:00 [facility] HEPATITIS A 2014-01-23 Completed [facility] of 00:00:00 [facility] Heamophilus Influenza 2014-01-23 Completed Uni versity of B 00:00:00 [facility] HEPATITIS A 2014-01-23 Completed [facility] of 00:00:00 [facility] Heamophilus Influenza 2014-01-23 Completed Uni versity of B 00:00:00 [facility] HEPATITIS A 2014-01-23 Completed [facility] of 00:00:00 [facility] Heamophilus Influenza 2014-01-23 Completed Uni versity of B 00:00:00 [facility] HEPATITIS A 2014-01-23 Completed [facility] of 00:00:00 [facility] Heamophilus Influenza 2014-01-23 Completed Uni versity of B 00:00:00 [facility] HEPATITIS A 2014-01-23 Completed [facility] 00:00:00 [facility] Heamophilus Influenza 2014-01-23 Completed Uni versity of B 00:00:00 [facility] HEPATITIS A 2014-01-23 Completed [facility] 00:00:00 [facility] Heamophilus Influenza 2014-01-23 Completed Uni versity of B 00:00:00 [facility] HEPATITIS A 2014-01-23 Completed [facility] 00:00:00 [facility] Heamophilus Influenza 2014-01-23 Completed Uni versity of B 00:00:00 [facility] DTAP 2013-04-12 Completed [facility] of 00:00:00 [facility] Polio (IPV/OPV) 2013-04-12 Completed [facility]it y [facility] 00:00:00 [facility] Pneumococcal 7 2013-04-12 Completed [facility] of Conjugate, PCV7 00:00:00 [facility] DTAP 2013-04-12 Completed [facility] 00:00:00 [facility] Polio (IPV/OPV) 2013-04-12 Completed [facility]it [facility] 00:00:00 [facility] Pneumococcal 7 2013-04-12 Completed [facility] Conjugate, PCV7 00:00:00 [facility] DTAP 2013-04-12 Completed [facility] 00:00:00 [facility] Polio (IPV/OPV) 2013-04-12 Completed [facility]it [facility] 00:00:00 [facility] Pneumococcal 7 2013-04-12 Completed [facility] of Conjugate, PCV7 00:00:00 [facility] (Prevnar7) Branch DTAP 2013-04-12 Completed [facility] of 00:00:00 [facility] Polio (IPV/OPV) 2013-04-12 Completed [facility]it [facility] of 00:00:00 [facility] Pneumococcal 7 2013-04-12 Completed [facility] of Conjugate, PCV7 00:00:00 [facility] DT 2013-04-12 Completed [facility] 00:00:00 [facility] Polio (IPV/OPV) 2013-04-12 Completed [facility]it [facility] 00:00:00 [facility] Pneumococcal 7 2013-04-12 Completed [facility] Conjugate, PCV7 00:00:00 [facility] 2013-04-12 Completed [facility] 00:00:00 [facility] Polio (IPV/OPV) 2013-04-12 Completed [facility]it [facility] 00:00:00 [facility] Pneumococcal 7 2013-04-12 Completed [facility] Conjugate, PCV7 00:00:00 [facility] 2013-04-12 Completed [facility] 00:00:00 [facility] Polio (IPV/OPV) 2013-04-12 Completed [facility]it [facility] 00:00:00 [facility] Pneumococcal 7 2013-04-12 Completed [facility] Conjugate, PCV7 00:00:00 [facility] 2013-04-12 Completed [facility] 00:00:00 [facility] Polio (IPV/OPV) 2013-04-12 Completed [facility]it [facility] 00:00:00 [facility] Pneumococcal 7 2013-04-12 Completed [facility] Conjugate, PCV7 00:00:00 [facility] 2013-04-12 Completed [facility] 00:00:00 [facility] Polio (IPV/OPV) 2013-04-12 Completed [facility]it [facility] 00:00:00 [facility] Pneumococcal 7 2013-04-12 Completed [facility] Conjugate, PCV7 00:00:00 [facility] 2013-04-12 Completed [facility] 00:00:00 [facility] Polio (IPV/OPV) 2013-04-12 Completed [facility] 00:00:00 [facility] Pneumococcal 7 2013-04-12 Completed [facility] Conjugate, PCV7 00:00:00 [place] [facility] 2013-04-12 Completed [facility] 00:00:00 [facility] Polio (IPV/OPV) 2013-04-12 Completed [facility] 00:00:00 [facility] Pneumococcal 7 2013-04-12 Completed [facility] Conjugate, PCV7 00:00:00 [facility] 2013-04-12 Completed [facility] 00:00:00 [facility] Polio (IPV/OPV) 2013-04-12 Completed [facility] 00:00:00 [facility] Pneumococcal 7 2013-04-12 Completed [facility] of Conjugate, PCV7 00:00:00 [facility] (Prevnar7) Branch [facility] 2013-04-12 Completed [facility] of 00:00:00 [facility] Polio (IPV/OPV) 2013-04-12 Completed [facility] of 00:00:00 [facility] Pneumococcal 7 2013-04-12 Completed [facility] of Conjugate, PCV7 00:00:00 [facility] (Prevnar7) Branch [facility] 2013-04-12 Completed [facility] 00:00:00 [facility] Polio (IPV/OPV) 2013-04-12 Completed [facility] 00:00:00 [facility] Pneumococcal 7 2013-04-12 Completed [facility] of Conjugate, PCV7 00:00:00 [facility] (Prevnar7) [facility] 2013-04-12 Completed [facility] 00:00:00 [facility] Polio (IPV/OPV) 2013-04-12 Completed [facility] 00:00:00 [facility] Pneumococcal 7 2013-04-12 Completed [facility] of Conjugate, PCV7 00:00:00 [facility] (Prevnar7) [facility] 2013-04-12 Completed [facility] 00:00:00 [facility] Polio (IPV/OPV) 2013-04-12 Completed [facility] 00:00:00 [facility] Pneumococcal 7 2013-04-12 Completed [facility] Conjugate, PCV7 00:00:00 [facility] 2013-04-12 Completed [facility] 00:00:00 [facility] Polio (IPV/OPV) 2013-04-12 Completed [facility] 00:00:00 [facility] Pneumococcal 7 2013-04-12 Completed [facility] Conjugate, PCV7 00:00:00 [facility] 2013-04-12 Completed [facility] 00:00:00 [facility] Polio (IPV/OPV) 2013-04-12 Completed [facility] 00:00:00 [facility] Pneumococcal 7 2013-04-12 Completed [facility] of Conjugate, PCV7 00:00:00 [facility] DT 2013-04-12 Completed [facility] 00:00:00 [facility] Polio (IPV/OPV) 2013-04-12 Completed [facility] 00:00:00 [facility] Pneumococcal 7 2013-04-12 Completed [facility] Conjugate, PCV7 00:00:00 [facility] 2013-04-12 Completed [facility] 00:00:00 [facility] Polio (IPV/OPV) 2013-04-12 Completed [facility] 00:00:00 [facility] Pneumococcal 7 2013-04-12 Completed [facility] Conjugate, PCV7 00:00:00 [facility] 2013-04-12 Completed [facility] 00:00:00 [facility] Polio (IPV/OPV) 2013-04-12 Completed [facility] 00:00:00 [facility] Pneumococcal 7 2013-04-12 Completed [facility] Conjugate, PCV7 00:00:00 [facility] 2013-04-12 Completed [facility] 00:00:00 [facility] Polio (IPV/OPV) 2013-04-12 Completed [facility] 00:00:00 [facility] Pneumococcal 7 2013-04-12 Completed [facility] Conjugate, PCV7 00:00:00 [facility] 2013-04-12 Completed [facility] 00:00:00 [facility] Polio (IPV/OPV) 2013-04-12 Completed [facility] 00:00:00 [facility] Pneumococcal 7 2013-04-12 Completed [facility] Conjugate, PCV7 00:00:00 [facility] 2013-04-12 Completed [facility] 00:00:00 [facility] Polio (IPV/OPV) 2013-04-12 Completed [facility] 00:00:00 [facility] Pneumococcal 7 2013-04-12 Completed [facility] Conjugate, PCV7 00:00:00 [facility] DTAP 2013-04-12 Completed [facility] 00:00:00 [facility] Polio (IPV/OPV) 2013-04-12 Completed [facility] 00:00:00 [facility] Pneumococcal 7 2013-04-12 Completed [facility] Conjugate, PCV7 00:00:00 [facility] DTAP 2013-04-12 Completed [facility] 00:00:00 [facility] Polio (IPV/OPV) 2013-04-12 Completed [facility] 00:00:00 [facility] Pneumococcal 7 2013-04-12 Completed [facility] Conjugate, PCV7 00:00:00 [facility] 2013-04-12 Completed [facility] 00:00:00 [facility] Polio (IPV/OPV) 2013-04-12 Completed [facility] 00:00:00 [facility] Pneumococcal 7 2013-04-12 Completed [facility] Conjugate, PCV7 00:00:00 [facility] 2013-04-12 Completed [facility] 00:00:00 [facility] Polio (IPV/OPV) 2013-04-12 Completed [facility] 00:00:00 [facility] Pneumococcal 7 2013-04-12 Completed [facility] Conjugate, PCV7 00:00:00 [facility] 2013-04-12 Completed [facility] 00:00:00 [facility] Polio (IPV/OPV) 2013-04-12 Completed [facility] 00:00:00 [facility] Pneumococcal 7 2013-04-12 Completed [facility] Conjugate, PCV7 00:00:00 [facility] 2013-04-12 Completed [facility] 00:00:00 [facility] Polio (IPV/OPV) 2013-04-12 Completed [facility] 00:00:00 [facility] Pneumococcal 7 2013-04-12 Completed [facility] Conjugate, PCV7 00:00:00 [facility] 2013-04-12 Completed [facility] 00:00:00 [facility] Polio (IPV/OPV) 2013-04-12 Completed [facility] 00:00:00 [facility] Pneumococcal 7 2013-04-12 Completed [facility] Conjugate, PCV7 00:00:00 [facility] DTAP 2013-04-12 Completed [facility] 00:00:00 [facility] Polio (IPV/OPV) 2013-04-12 Completed [facility] 00:00:00 [facility] Pneumococcal 7 2013-04-12 Completed [facility] Conjugate, PCV7 00:00:00 [facility] DTAP 2013-04-12 Completed [facility] 00:00:00 [facility] Polio (IPV/OPV) 2013-04-12 Completed [facility] 00:00:00 [facility] Pneumococcal 7 2013-04-12 Completed [facility] Conjugate, PCV7 00:00:00 [facility] 2013-04-12 Completed [facility] 00:00:00 [facility] Polio (IPV/OPV) 2013-04-12 Completed [facility] 00:00:00 [facility] Pneumococcal 7 2013-04-12 Completed [facility] Conjugate, PCV7 00:00:00 [facility] 2013-04-12 Completed [facility] 00:00:00 [facility] Polio (IPV/OPV) 2013-04-12 Completed [facility] 00:00:00 [facility] Pneumococcal 7 2013-04-12 Completed [facility] Conjugate, PCV7 00:00:00 [facility] DT 2013-04-12 Completed [facility] 00:00:00 [facility] Polio (IPV/OPV) 2013-04-12 Completed [facility] 00:00:00 [facility] Pneumococcal 7 2013-04-12 Completed [facility] Conjugate, PCV7 00:00:00 [facility] DT 2013-04-12 Completed [facility] 00:00:00 [facility] Polio (IPV/OPV) 2013-04-12 Completed [facility] 00:00:00 [facility] Pneumococcal 7 2013-04-12 Completed [facility] Conjugate, PCV7 00:00:00 [facility]ar[facility] DT 2013-04-12 Completed [facility] 00:00:00 [facility] Polio (IPV/OPV) 2013-04-12 Completed [facility] 00:00:00 [facility] Pneumococcal 7 2013-04-12 Completed [facility] of Conjugate, PCV7 00:00:00 [facility] (Prevnar7) Branch HEPATITIS A 2013-03-15 Completed [facility] of 00:00:00 [facility] Hep B, Adol or Pedi 2013-03-15 Completed Unive rsity of Dosage 00:00:00 [facility] Meningococcal 2013-03-15 Completed [facility] Polysaccharide 00:00:00 [place] [facility] (groups A, C, Y and Branc h W-135) conjugate vaccine (MCV4P) HEPATITIS A 2013-03-15 Completed [facility] 00:00:00 [facility] Hep B, Adol or Pedi 2013-03-15 Completed Unive rsity of Dosage 00:00:00 [facility] Meningococcal 2013-03-15 Completed [facility] Polysaccharide 00:00:00 [place] [facility] (groups A, C, Y and Branc h W-135) conjugate vaccine (MCV4P) HEPATITIS A 2013-03-15 Completed [facility] 00:00:00 [facility] Hep B, Adol or Pedi 2013-03-15 Completed Unive rsity of Dosage 00:00:00 [facility] Meningococcal 2013-03-15 Completed [facility] Polysaccharide 00:00:00 [place] [facility] (groups A, C, Y and Branc h W-135) conjugate vaccine (MCV4P) HEPATITIS A 2013-03-15 Completed [facility] 00:00:00 [facility] Hep B, Adol or Pedi 2013-03-15 Completed Unive rsity of Dosage 00:00:00 [facility] Meningococcal 2013-03-15 Completed [facility] Polysaccharide 00:00:00 [place] [facility] (groups A, C, Y and Branc h W-135) conjugate vaccine (MCV4P) HEPATITIS A 2013-03-15 Completed [facility] 00:00:00 [facility] Hep B, Adol or Pedi 2013-03-15 Completed Unive rsity of Dosage 00:00:00 [facility] Meningococcal 2013-03-15 Completed [facility] Polysaccharide 00:00:00 [place] [facility] (groups A, C, Y and Branc h W-135) conjugate vaccine (MCV4P) HEPATITIS A 2013-03-15 Completed [facility] 00:00:00 [facility] Hep B, Adol or Pedi 2013-03-15 Completed Unive rsity of Dosage 00:00:00 [facility] Meningococcal 2013-03-15 Completed [facility] Polysaccharide 00:00:00 [place] [facility] (groups A, C, Y and Branc h W-135) conjugate vaccine (MCV4P) HEPATITIS A 2013-03-15 Completed [facility] 00:00:00 [facility] Hep B, Adol or Pedi 2013-03-15 Completed Unive rsity of Dosage 00:00:00 [facility] Meningococcal 2013-03-15 Completed [facility] Polysaccharide 00:00:00 [place] [facility] (groups A, C, Y and Branc h W-135) conjugate vaccine (MCV4P) HEPATITIS A 2013-03-15 Completed [facility] 00:00:00 [facility] Hep B, Adol or Pedi 2013-03-15 Completed Unive rsity of Dosage 00:00:00 [facility] Meningococcal 2013-03-15 Completed [facility] Polysaccharide 00:00:00 [place] [facility] (groups A, C, Y and Branc h W-135) conjugate vaccine (MCV4P) HEPATITIS A 2013-03-15 Completed [facility] 00:00:00 [facility] Hep B, Adol or Pedi 2013-03-15 Completed Unive rsity of Dosage 00:00:00 [facility] Meningococcal 2013-03-15 Completed [facility] Polysaccharide 00:00:00 [place] [facility] (groups A, C, Y and Branc h W-135) conjugate vaccine (MCV4P) HEPATITIS A 2013-03-15 Completed [facility] 00:00:00 [facility] Hep B, Adol or Pedi 2013-03-15 Completed Unive rsity of Dosage 00:00:00 [facility] Meningococcal 2013-03-15 Completed [facility] Polysaccharide 00:00:00 [place] [facility] (groups A, C, Y and Branc h W-135) conjugate vaccine (MCV4P) HEPATITIS A 2013-03-15 Completed [facility] 00:00:00 [facility] Hep B, Adol or Pedi 2013-03-15 Completed Unive rsity of Dosage 00:00:00 [facility] Meningococcal 2013-03-15 Completed [facility] Polysaccharide 00:00:00 [place] [facility] (groups A, C, Y and Branc h W-135) conjugate vaccine (MCV4P) HEPATITIS A 2013-03-15 Completed [facility] 00:00:00 [facility] Hep B, Adol or Pedi 2013-03-15 Completed Unive rsity of Dosage 00:00:00 [facility] Meningococcal 2013-03-15 Completed [facility] Polysaccharide 00:00:00 [place] [facility] (groups A, C, Y and Branc h W-135) conjugate vaccine (MCV4P) HEPATITIS A 2013-03-15 Completed [facility] 00:00:00 [facility] Hep B, Adol or Pedi 2013-03-15 Completed Unive rsity of Dosage 00:00:00 [facility] Meningococcal 2013-03-15 Completed [facility] Polysaccharide 00:00:00 [place] [facility] (groups A, C, Y and Branc h W-135) conjugate vaccine (MCV4P) HEPATITIS A 2013-03-15 Completed [facility] 00:00:00 [facility] Hep B, Adol or Pedi 2013-03-15 Completed Unive rsity of Dosage 00:00:00 [facility] Meningococcal 2013-03-15 Completed [facility] Polysaccharide 00:00:00 [place] [facility] (groups A, C, Y and Branc h W-135) conjugate vaccine (MCV4P) HEPATITIS A 2013-03-15 Completed [facility] 00:00:00 [facility] Hep B, Adol or Pedi 2013-03-15 Completed Unive rsity of Dosage 00:00:00 [facility] Meningococcal 2013-03-15 Completed [facility] Polysaccharide 00:00:00 [place] [facility] (groups A, C, Y and Branc h W-135) conjugate vaccine (MCV4P) HEPATITIS A 2013-03-15 Completed [facility] 00:00:00 [facility] Hep B, Adol or Pedi 2013-03-15 Completed Unive rsity of Dosage 00:00:00 [facility] Meningococcal 2013-03-15 Completed [facility] Polysaccharide 00:00:00 [place] [facility] (groups A, C, Y and Branc h W-135) conjugate vaccine (MCV4P) HEPATITIS A 2013-03-15 Completed [facility] 00:00:00 [facility] Hep B, Adol or Pedi 2013-03-15 Completed Unive rsity of Dosage 00:00:00 [facility] Meningococcal 2013-03-15 Completed [facility] Polysaccharide 00:00:00 [place] [facility] (groups A, C, Y and Branc h W-135) conjugate vaccine (MCV4P) HEPATITIS A 2013-03-15 Completed [facility] 00:00:00 [facility] Hep B, Adol or Pedi 2013-03-15 Completed Unive rsity of Dosage 00:00:00 [facility] Meningococcal 2013-03-15 Completed [facility] Polysaccharide 00:00:00 [place] [facility] (groups A, C, Y and Branc h W-135) conjugate vaccine (MCV4P) HEPATITIS A 2013-03-15 Completed [facility] 00:00:00 [facility] Hep B, Adol or Pedi 2013-03-15 Completed Unive rsity of Dosage 00:00:00 [facility] Meningococcal 2013-03-15 Completed [facility] Polysaccharide 00:00:00 [place] [facility] (groups A, C, Y and Branc h W-135) conjugate vaccine (MCV4P) HEPATITIS A 2013-03-15 Completed [facility] 00:00:00 [facility] Hep B, Adol or Pedi 2013-03-15 Completed Unive rsity of Dosage 00:00:00 [facility] Meningococcal 2013-03-15 Completed [facility] Polysaccharide 00:00:00 [place] [facility] (groups A, C, Y and Branc h W-135) conjugate vaccine (MCV4P) HEPATITIS A 2013-03-15 Completed [facility] 00:00:00 [facility] Hep B, Adol or Pedi 2013-03-15 Completed Unive rsity of Dosage 00:00:00 [facility] Meningococcal 2013-03-15 Completed [facility] Polysaccharide 00:00:00 [place] [facility] (groups A, C, Y and Branc h W-135) conjugate vaccine (MCV4P) HEPATITIS A 2013-03-15 Completed [facility] 00:00:00 [facility] Hep B, Adol or Pedi 2013-03-15 Completed Unive rsity of Dosage 00:00:00 [facility] Meningococcal 2013-03-15 Completed [facility] Polysaccharide 00:00:00 [place] [facility] (groups A, C, Y and Branc h W-135) conjugate vaccine (MCV4P) HEPATITIS A 2013-03-15 Completed [facility] 00:00:00 [facility] Hep B, Adol or Pedi 2013-03-15 Completed Unive rsity of Dosage 00:00:00 [facility] Meningococcal 2013-03-15 Completed [facility] Polysaccharide 00:00:00 [place] [facility] (groups A, C, Y and Branc h W-135) conjugate vaccine (MCV4P) HEPATITIS A 2013-03-15 Completed [facility] 00:00:00 [facility] Hep B, Adol or Pedi 2013-03-15 Completed [facility]ive [facility]ity of Dosage 00:00:00 [facility] Meningococcal 2013-03-15 Completed [facility] Polysaccharide 00:00:00 [facility] (groups A, C, Y and Branc h W-135) conjugate vaccine (MCV4P) HEPATITIS A 2013-03-15 Completed [facility] 00:00:00 [facility] Hep B, Adol or Pedi 2013-03-15 Completed Unive rsity of Dosage 00:00:00 [facility] Meningococcal 2013-03-15 Completed [facility] Polysaccharide 00:00:00 [place] [facility] (groups A, C, Y and Branc h W-135) conjugate vaccine (MCV4P) HEPATITIS A 2013-03-15 Completed [facility] 00:00:00 [facility] Hep B, Adol or Pedi 2013-03-15 Completed [facility]ive rsity of Dosage 00:00:00 [facility] Meningococcal 2013-03-15 Completed [facility] Polysaccharide 00:00:00 [place] [facility] (groups A, C, Y and Branc h W-135) conjugate vaccine (MCV4P) HEPATITIS A 2013-03-15 Completed [facility] 00:00:00 [facility] Hep B, Adol or Pedi 2013-03-15 Completed [facility]ive rs[facility] of Dosage 00:00:00 [facility] Meningococcal 2013-03-15 Completed [facility] Polysaccharide 00:00:00 [place] [facility] (groups A, C, Y and Branc h W-135) conjugate vaccine (MCV4P) HEPATITIS A 2013-03-15 Completed [facility] 00:00:00 [facility] Hep B, Adol or Pedi 2013-03-15 Completed [facility] of Dosage 00:00:00 [facility] Meningococcal 2013-03-15 Completed [facility] Polysaccharide 00:00:00 [place] [facility] (groups A, C, Y and Branc h W-135) conjugate vaccine (MCV4P) HEPATITIS A 2013-03-15 Completed [facility] 00:00:00 [facility] Hep B, Adol or Pedi 2013-03-15 Completed [facility] of Dosage 00:00:00 [facility] Meningococcal 2013-03-15 Completed [facility] Polysaccharide 00:00:00 [place] [facility] (groups A, C, Y and Branc h W-135) conjugate vaccine (MCV4P) HEPATITIS A 2013-03-15 Completed [facility] 00:00:00 [facility] Hep B, Adol or Pedi 2013-03-15 Completed [facility]ive rs[facility] of Dosage 00:00:00 [facility] Meningococcal 2013-03-15 Completed [facility] Polysaccharide 00:00:00 [place] [facility] (groups A, C, Y and Branc h W-135) conjugate vaccine (MCV4P) HEPATITIS A 2013-03-15 Completed [facility] 00:00:00 [facility] Hep B, Adol or Pedi 2013-03-15 Completed [facility]ive [facility] of Dosage 00:00:00 [facility] Meningococcal 2013-03-15 Completed [facility] Polysaccharide 00:00:00 [place] [facility] (groups A, C, Y and Branc h W-135) conjugate vaccine (MCV4P) HEPATITIS A 2013-03-15 Completed [facility] 00:00:00 [facility] Hep B, Adol or Pedi 2013-03-15 Completed [facility]ive rsity of Dosage 00:00:00 [facility] Meningococcal 2013-03-15 Completed [facility] Polysaccharide 00:00:00 [place] [facility] (groups A, C, Y and Branc h W-135) conjugate vaccine (MCV4P) HEPATITIS A 2013-03-15 Completed [facility] 00:00:00 [facility] Hep B, Adol or Pedi 2013-03-15 Completed [facility]ive rsity of Dosage 00:00:00 [facility] Meningococcal 2013-03-15 Completed [facility] Polysaccharide 00:00:00 [place] [facility] (groups A, C, Y and Branc h W-135) conjugate vaccine (MCV4P) HEPATITIS A 2013-03-15 Completed [facility] 00:00:00 [facility] Hep B, Adol or Pedi 2013-03-15 Completed [facility]ive [facility]ity of Dosage 00:00:00 [facility] Meningococcal 2013-03-15 Completed [facility] Polysaccharide 00:00:00 [place] [facility] (groups A, C, Y and Branc h W-135) conjugate vaccine (MCV4P) HEPATITIS A 2013-03-15 Completed [facility] 00:00:00 [facility] Hep B, Adol or Pedi 2013-03-15 Completed [facility]ive [facility]ity of Dosage 00:00:00 [facility] Meningococcal 2013-03-15 Completed [facility] Polysaccharide 00:00:00 [place] [facility] (groups A, C, Y and Branc h W-135) conjugate vaccine (MCV4P) HEPATITIS A 2013-03-15 Completed [facility] 00:00:00 [facility] Hep B, Adol or Pedi 2013-03-15 Completed [facility]ive [facility]ity of Dosage 00:00:00 [facility] Meningococcal 2013-03-15 Completed [facility] Polysaccharide 00:00:00 [place] [facility] (groups A, C, Y and Branc h W-135) conjugate vaccine (MCV4P) HEPATITIS A 2013-03-15 Completed [facility] 00:00:00 [facility] Hep B, Adol or Pedi 2013-03-15 Completed [facility]ive [facility]ity of Dosage 00:00:00 [facility] Meningococcal 2013-03-15 Completed [facility] Polysaccharide 00:00:00 [place] [facility] (groups A, C, Y and Branc h W-135) conjugate vaccine (MCV4P) HEPATITIS A 2013-03-15 Completed [facility] 00:00:00 [facility] Hep B, Adol or Pedi 2013-03-15 Completed [facility]ive rsity of Dosage 00:00:00 [facility] Meningococcal 2013-03-15 Completed [facility] Polysaccharide 00:00:00 [place] [facility] (groups A, C, Y and Branc h W-135) conjugate vaccine (MCV4P) Pneumococcal 13 2013-01-24 Completed Universit y of Conjugate, PCV13 00:00:00 [facility] dical (Prevnar 13) Branch HIB 4 Dose Schedule 2013-01-24 Completed Unive rsity of 00:00:00 [facility] Hep B, Dtap, Polio 2013-01-24 Completed Univer sity of 00:00:00 [facility] Pneumococcal 13 2013-01-24 Completed Universit y of Conjugate, PCV13 00:00:00 [facility] dical (Prevnar 13) Branch HIB 4 Dose Schedule 2013-01-24 Completed Unive rsity of 00:00:00 [facility] Hep B, Dtap, Polio 2013-01-24 Completed Univer sity of 00:00:00 [facility] Pneumococcal 13 2013-01-24 Completed [facility]it y of Conjugate, PCV13 00:00:00 [place] [facility] (Prevnar 13) Branch HIB 4 Dose Schedule 2013-01-24 Completed [facility]ive rsity of 00:00:00 [facility] Hep B, Dtap, Polio 2013-01-24 Completed Univer sity of 00:00:00 [facility] Pneumococcal 13 2013-01-24 Completed Universit y of Conjugate, PCV13 00:00:00 [place] [facility] (Prevnar 13) Branch HIB 4 Dose Schedule 2013-01-24 Completed [facility]ive rsity of 00:00:00 [facility] Hep B, Dtap, Polio 2013-01-24 Completed Univer sity of 00:00:00 [facility] Pneumococcal 13 2013-01-24 Completed Universit y of Conjugate, PCV13 00:00:00 [place] [facility] (Prevnar 13) Branch HIB 4 Dose Schedule 2013-01-24 Completed Unive rsity of 00:00:00 [facility] Hep B, Dtap, Polio 2013-01-24 Completed Univer sity of 00:00:00 [facility] Pneumococcal 13 2013-01-24 Completed Universit y of Conjugate, PCV13 00:00:00 [place] [facility] (Prevnar 13) Branch HIB 4 Dose Schedule 2013-01-24 Completed [facility]ive rsity of 00:00:00 [facility] Hep B, Dtap, Polio 2013-01-24 Completed Univer sity of 00:00:00 [facility] Pneumococcal 13 2013-01-24 Completed Universit y of Conjugate, PCV13 00:00:00 [place] [facility] (Prevnar 13) Branch HIB 4 Dose Schedule 2013-01-24 Completed Unive rsity of 00:00:00 [facility] Hep B, Dtap, Polio 2013-01-24 Completed Univer sity of 00:00:00 [facility] Pneumococcal 13 2013-01-24 Completed Universit y of Conjugate, PCV13 00:00:00 [place] [facility] (Prevnar 13) Branch HIB 4 Dose Schedule 2013-01-24 Completed [facility]ive rsity of 00:00:00 [facility] Hep B, Dtap, Polio 2013-01-24 Completed Univer sity of 00:00:00 [facility] Pneumococcal 13 2013-01-24 Completed Universit y of Conjugate, PCV13 00:00:00 [place] [facility] (Prevnar 13) Branch HIB 4 Dose Schedule 2013-01-24 Completed Unive rsity of 00:00:00 [facility] Hep B, Dtap, Polio 2013-01-24 Completed Univer sity of 00:00:00 [facility] Pneumococcal 13 2013-01-24 Completed Universit y of Conjugate, PCV13 00:00:00 [place] [facility] (Prevnar 13) Branch HIB 4 Dose Schedule 2013-01-24 Completed Unive rsity of 00:00:00 [facility] Hep B, Dtap, Polio 2013-01-24 Completed Univer sity of 00:00:00 [facility] Pneumococcal 13 2013-01-24 Completed Universit y of Conjugate, PCV13 00:00:00 [place] [facility] (Prevnar 13) Branch HIB 4 Dose Schedule 2013-01-24 Completed Unive rsity of 00:00:00 [facility] Hep B, Dtap, Polio 2013-01-24 Completed Univer sity of 00:00:00 [facility] Pneumococcal 13 2013-01-24 Completed Universit y of Conjugate, PCV13 00:00:00 [place] [facility] (Prevnar 13) Branch HIB 4 Dose Schedule 2013-01-24 Completed Unive rsity of 00:00:00 [facility] Hep B, Dtap, Polio 2013-01-24 Completed Univer sity of 00:00:00 [facility] Pneumococcal 13 2013-01-24 Completed Universit y of Conjugate, PCV13 00:00:00 [place] [facility] (Prevnar 13) Branch HIB 4 Dose Schedule 2013-01-24 Completed Unive rsity of 00:00:00 [facility] Hep B, Dtap, Polio 2013-01-24 Completed Univer sity of 00:00:00 [facility] Pneumococcal 13 2013-01-24 Completed Universit y of Conjugate, PCV13 00:00:00 [place] [facility] (Prevnar 13) Branch HIB 4 Dose Schedule 2013-01-24 Completed Unive rsity of 00:00:00 [facility] Hep B, Dtap, Polio 2013-01-24 Completed Univer sity of 00:00:00 [facility] Pneumococcal 13 2013-01-24 Completed Universit y of Conjugate, PCV13 00:00:00 [place] [facility] (Prevnar 13) Branch HIB 4 Dose Schedule 2013-01-24 Completed Unive rsity of 00:00:00 [facility] Hep B, Dtap, Polio 2013-01-24 Completed Univer sity of 00:00:00 [facility] Pneumococcal 13 2013-01-24 Completed Universit y of Conjugate, PCV13 00:00:00 [place] [facility] (Prevnar 13) Branch HIB 4 Dose Schedule 2013-01-24 Completed Unive rsity of 00:00:00 [facility] Hep B, Dtap, Polio 2013-01-24 Completed Univer sity of 00:00:00 [facility] Pneumococcal 13 2013-01-24 Completed Universit y of Conjugate, PCV13 00:00:00 [facility] dical (Prevnar 13) Branch HIB 4 Dose Schedule 2013-01-24 Completed Unive rsity of 00:00:00 [facility] Hep B, Dtap, Polio 2013-01-24 Completed Univer sity of 00:00:00 [facility] Pneumococcal 13 2013-01-24 Completed Universit y of Conjugate, PCV13 00:00:00 [facility] dical (Prevnar 13) Branch HIB 4 Dose Schedule 2013-01-24 Completed Unive rsity of 00:00:00 [facility] Hep B, Dtap, Polio 2013-01-24 Completed Univer sity of 00:00:00 [facility] Pneumococcal 13 2013-01-24 Completed Universit y of Conjugate, PCV13 00:00:00 [facility] dical (Prevnar 13) Branch HIB 4 Dose Schedule 2013-01-24 Completed Unive rsity of 00:00:00 [facility] Hep B, Dtap, Polio 2013-01-24 Completed Univer sity of 00:00:00 [facility] Pneumococcal 13 2013-01-24 Completed Universit y of Conjugate, PCV13 00:00:00 [facility] dical (Prevnar 13) Branch HIB 4 Dose Schedule 2013-01-24 Completed Unive rsity of 00:00:00 [facility] Hep B, Dtap, Polio 2013-01-24 Completed Univer sity of 00:00:00 [facility] Pneumococcal 13 2013-01-24 Completed Universit y of Conjugate, PCV13 00:00:00 [facility] dical (Prevnar 13) Branch HIB 4 Dose Schedule 2013-01-24 Completed Unive rsity of 00:00:00 [facility] Hep B, Dtap, Polio 2013-01-24 Completed Univer sity of 00:00:00 [facility] Pneumococcal 13 2013-01-24 Completed Universit y of Conjugate, PCV13 00:00:00 [place] [facility] (Prevnar 13) Branch HIB 4 Dose Schedule 2013-01-24 Completed Unive rsity of 00:00:00 [facility] Hep B, Dtap, Polio 2013-01-24 Completed Univer sity of 00:00:00 [facility] Pneumococcal 13 2013-01-24 Completed Universit y of Conjugate, PCV13 00:00:00 [place] [facility] (Prevnar 13) Branch HIB 4 Dose Schedule 2013-01-24 Completed Unive rsity of 00:00:00 [facility] Hep B, Dtap, Polio 2013-01-24 Completed Univer sity of 00:00:00 [facility] Pneumococcal 13 2013-01-24 Completed Universit y of Conjugate, PCV13 00:00:00 [facility] dical (Prevnar 13) Branch HIB 4 Dose Schedule 2013-01-24 Completed Unive rsity of 00:00:00 [facility] Hep B, Dtap, Polio 2013-01-24 Completed Univer sity of 00:00:00 [facility] Pneumococcal 13 2013-01-24 Completed Universit y of Conjugate, PCV13 00:00:00 [facility] dical (Prevnar 13) Branch HIB 4 Dose Schedule 2013-01-24 Completed Unive rsity of 00:00:00 [facility] Hep B, Dtap, Polio 2013-01-24 Completed Univer sity of 00:00:00 [facility] Pneumococcal 13 2013-01-24 Completed Universit y of Conjugate, PCV13 00:00:00 [facility] dical (Prevnar 13) Branch HIB 4 Dose Schedule 2013-01-24 Completed Unive rsity of 00:00:00 [facility] Hep B, Dtap, Polio 2013-01-24 Completed Univer sity of 00:00:00 [facility] Pneumococcal 13 2013-01-24 Completed Universit y of Conjugate, PCV13 00:00:00 [facility] dical (Prevnar 13) Branch HIB 4 Dose Schedule 2013-01-24 Completed Unive rsity of 00:00:00 [facility] Hep B, Dtap, Polio 2013-01-24 Completed Univer sity of 00:00:00 [facility] Pneumococcal 13 2013-01-24 Completed Universit y of Conjugate, PCV13 00:00:00 [place] [facility] (Prevnar 13) [facility] HIB 4 Dose Schedule 2013-01-24 Completed Unive rsity of 00:00:00 [facility] Hep B, Dtap, Polio 2013-01-24 Completed Univer sity of 00:00:00 [facility] Pneumococcal 13 2013-01-24 Completed Universit y of Conjugate, PCV13 00:00:00 [place] [facility] (Prevnar 13) Branch HIB 4 Dose Schedule 2013-01-24 Completed Unive rsity of 00:00:00 [facility] Hep B, Dtap, Polio 2013-01-24 Completed Univer sity of 00:00:00 [facility] Pneumococcal 13 2013-01-24 Completed Universit y of Conjugate, PCV13 00:00:00 [facility] dical (Prevnar 13) Branch HIB 4 Dose Schedule 2013-01-24 Completed Unive rsity of 00:00:00 [facility] Hep B, Dtap, Polio 2013-01-24 Completed Univer sity of 00:00:00 [facility] Pneumococcal 13 2013-01-24 Completed Universit y of Conjugate, PCV13 00:00:00 [facility] dical (Prevnar 13) Branch HIB 4 Dose Schedule 2013-01-24 Completed Unive rsity of 00:00:00 [facility] Hep B, Dtap, Polio 2013-01-24 Completed Univer sity of 00:00:00 [facility] Pneumococcal 13 2013-01-24 Completed Universit y of Conjugate, PCV13 00:00:00 [facility] dical (Prevnar 13) Branch HIB 4 Dose Schedule 2013-01-24 Completed Unive rsity of 00:00:00 [facility] Hep B, Dtap, Polio 2013-01-24 Completed Univer sity of 00:00:00 [facility] Pneumococcal 13 2013-01-24 Completed Universit y of Conjugate, PCV13 00:00:00 [facility] dical (Prevnar 13) Branch HIB 4 Dose Schedule 2013-01-24 Completed Unive rsity of 00:00:00 [facility] Hep B, Dtap, Polio 2013-01-24 Completed Univer sity of 00:00:00 [facility] Pneumococcal 13 2013-01-24 Completed Universit y of Conjugate, PCV13 00:00:00 [place] [facility] (Prevnar 13) Branch HIB 4 Dose Schedule 2013-01-24 Completed Unive rsity of 00:00:00 [facility] Hep B, Dtap, Polio 2013-01-24 Completed Univer sity of 00:00:00 [facility] Pneumococcal 13 2013-01-24 Completed Universit y of Conjugate, PCV13 00:00:00 [place] [facility] (Prevnar 13) Branch HIB 4 Dose Schedule 2013-01-24 Completed Unive rsity of 00:00:00 [facility] Hep B, Dtap, Polio 2013-01-24 Completed Univer sity of 00:00:00 [facility] Pneumococcal 13 2013-01-24 Completed [facility]it y of Conjugate, PCV13 00:00:00 [place] [facility] (Prevnar 13) Branch HIB 4 Dose Schedule 2013-01-24 Completed Unive rsity of 00:00:00 [facility] Hep B, Dtap, Polio 2013-01-24 Completed Univer sity of 00:00:00 [facility] Pneumococcal 13 2013-01-24 Completed Universit y of Conjugate, PCV13 00:00:00 [place] [facility] (Prevnar 13) Branch HIB 4 Dose Schedule 2013-01-24 Completed Unive rsity of 00:00:00 [facility] Hep B, Dtap, Polio 2013-01-24 Completed Univer sity of 00:00:00 [facility] Pneumococcal 13 2013-01-24 Completed Universit y of Conjugate, PCV13 00:00:00 [place] [facility] (Prevnar 13) Branch HIB 4 Dose Schedule 2013-01-24 Completed Unive rsity of 00:00:00 [facility] Hep B, Dtap, Polio 2013-01-24 Completed Univer sity of 00:00:00 [facility] Vital Signs Vital Name Observation Time Observation Value Comments Source Body weight 2023-04-21 21:27:00 70.398 kg [facility] BMI 2023-04-21 21:27:00 25.83 kg/m2 [facility] Systolic blood 2023-04-21 21:27:00 144 mm[Hg] Univer sity of pressure [facility] Diastolic blood 2023-04-21 21:27:00 96 mm[Hg] Unive [facility]ity of pressure [facility] Heart rate 2023-04-21 21:27:00 103 /min [facility] Body height 2023-04-21 21:27:00 165.1 cm [facility] Systolic blood 2023-04-13 19:32:00 115 mm[Hg] [facility] of pressure [facility] Diastolic blood 2023-04-13 19:32:00 74 mm[Hg] [facility] of pressure [facility] Heart rate 2023-04-13 19:32:00 79 /min [facility] Body height 2023-04-13 19:32:00 165.1 cm [facility] Body weight 2023-04-13 19:32:00 70.308 kg [facility] BMI 2023-04-13 19:32:00 25.79 kg/m2 [facility] Oxygen saturation in 2023-04-13 19:32:00 98 /min [facility] Arterial blood by [place] [employer] [facility] Pulse oxim[facility] Systolic blood 2023-03-31 19:23:00 110 mm[Hg] Univer [facility]ity of pressure [facility] Diastolic blood 2023-03-31 19:23:00 75 mm[Hg] Unive rsity of pressure [facility] Heart rate 2023-03-31 19:23:00 99 /min [facility] Body height 2023-03-31 19:23:00 165.1 cm [facility] Body weight 2023-03-31 19:23:00 70.398 kg [facility] BMI 2023-03-31 19:23:00 25.83 kg/m2 [facility] Oxygen saturation in 2023-03-31 19:23:00 97 /min [facility] Arterial blood by [place] [employer] [facility] P[facility] oxim[facility] Systolic blood 2023-03-24 14:42:00 129 mm[Hg] Univer [facility]ity of pressure [facility] Diastolic blood 2023-03-24 14:42:00 87 mm[Hg] Unive rsity of pressure [facility] Heart rate 2023-03-24 14:42:00 90 /min [facility] Body temperature 2023-03-24 14:42:00 36.72 [place] [facility] Respiratory rate 2023-03-24 14:42:00 18 /min [facility] Body height 2023-03-24 14:42:00 165.1 cm [facility] Body weight 2023-03-24 14:42:00 68.629 kg [facility] BMI 2023-03-24 14:42:00 25.18 kg/m2 [facility] Oxygen saturation in 2023-03-24 14:42:00 99 /min [facility] Arterial blood by [facility]ncio Pulse oximetry Branch Systolic blood 2022-10-07 20:47:00 124 mm[Hg] Univer [facility]ity of pressure [facility] Diastolic blood 2022-10-07 20:47:00 86 mm[Hg] Unive rsity of pressure [facility] Heart rate 2022-10-07 20:47:00 101 /min [facility] Body height 2022-10-07 20:47:00 165.1 cm [facility] Body weight 2022-10-07 20:47:00 69.264 kg [facility] BMI 2022-10-07 20:47:00 25.41 kg/m2 [facility] Oxygen saturation in 2022-10-07 20:47:00 94 /min [facility] Arterial blood by [facility]ncio Pulse oximetry Branch Systolic blood 2022-08-05 19:18:00 128 mm[Hg] Univer [facility]ity of pressure [facility] Diastolic blood 2022-08-05 19:18:00 81 mm[Hg] Unive rsity of pressure [facility] Heart rate 2022-08-05 19:18:00 110 /min [facility] Respiratory rate 2022-08-05 19:18:00 23 /min [facility] Body height 2022-08-05 19:18:00 165.1 cm [facility] Body weight 2022-08-05 19:18:00 70.308 kg [facility] BMI 2022-08-05 19:18:00 25.79 kg/m2 [facility] Oxygen saturation in 2022-08-05 19:18:00 97 /min [facility] Arterial blood by [facility] Pulse oximetry Branch Systolic blood 2022-08-04 18:34:00 125 mm[Hg] Univer [facility]ity of pressure [facility] Diastolic blood 2022-08-04 18:34:00 84 mm[Hg] Unive [facility]ity of pressure [facility] Heart rate 2022-08-04 18:34:00 96 /min [facility] Body height 2022-08-04 18:34:00 165.1 cm [facility] Body weight 2022-08-04 18:34:00 70.625 kg [facility] BMI 2022-08-04 18:34:00 25.91 kg/m2 [facility] Oxygen saturation in 2022-08-04 18:34:00 97 /min [facility] Arterial blood by [facility] Pulse oximetry Branch Systolic blood 2022-07-05 16:31:00 128 mm[Hg] Univer [facility]ity of pressure [facility] Diastolic blood 2022-07-05 16:31:00 86 mm[Hg] [facility]ive [facility] of pressure [facility] Heart rate 2022-07-05 16:31:00 93 /min [facility] Body height 2022-07-05 16:31:00 165.1 cm [facility] Body weight 2022-07-05 16:31:00 67.722 kg [facility] BMI 2022-07-05 16:31:00 24.84 kg/m2 [facility] Oxygen saturation in 2022-07-05 16:31:00 99 /min [facility] Arterial blood by [facility] Pulse oximetry Branch Procedures Procedure Date / Time Performing Clinician Source Performed MEDICAL RELEASE/CLEARANCE 2023-03-31 05:01:00 Doctor Unaailynigned, [facility] FORMS [facility] ASSIGNMENT OF BENEFITS 2022-10-07 20:44:49 Doctor Margoth, [facility] INSURANCE CORRESPONDENCE 2022-08-16 06:01:00 Doctor Margoth, [facility] POCT HEMOGLOBIN A1C TEST 2022-08-04 20:25:00 Emre Gan [facility] Encounters Start End Encounter Admission Attending Care Care Encounter Source Date/Time Date/Time Type Type Clinicians Facility Department ID 2023-07-18 2023-07-18 Outpatient R T[facility]AN [facility] [id number] Univers 11:30:00 11:30:00 JOSE gant [facility] 2023-04-27 2023-04-27 [facility] [id number] Univers 14:30:00 14:30:00 EMRE itnakul [facility] 2023-04-21 2023-04-21 [facility] [id number] Univers 16:30:00 17:06:39 RICHARD gant [facility] 2023-04-21 2023-04-21 [facility] 1.2.434.657 [id number] Univers 16:30:00 17:06:39 Visit Richard [employer] 350.1.13.10 it y of [place] 4.2.7.2.686 Scooter as PITO?BLEA [phone] Ks noel SMITH 220 [facility] OFFICE [facility] 2023-04-21 2023-04-21 Letter [facility] 1.2.329.438 [id number] Univers 00:00:00 00:00:00 (Out) Richard [employer] 350.1.13.10 it y of [place] 4.2.7.2.686 Scooter as PITO?BLEA [phone] Ks noel SMITH 220 [facility] OFFICE [facility] 2023-04-13 2023-04-13 [facility]patient [facility] [id number] Univers 14:30:00 15:12:55 EMRE edwardsnakul [facility] 2023-04-13 2023-04-13 Office [facility] 1.2.840.114 [id number] Univers 14:30:00 15:12:55 Visit Emre [employer] 350.1.13.10 it y of [place] 4.2.7.2.686 Scooter as PITO?BLEA [phone] Ks noel FORD 044 [facility] OFFICE [facility] 2023-04-13 2023-04-13 Letter [facility] 1.2.840.114 [id number] Univers 00:00:00 00:00:00 (Out) Emre HEALTH 350.1.13.10 it y of [place] 4.2.7.2.686 Scooter as PITO?BLEA [id number] Ks noel SMITH 044 [place] MEDICAL OFFICE [facility] 2023-04-03 2023-04-03 Patient Doctor AKESTEFANIA 1.2.840.114 [id number] Univers 00:00:00 00:00:00 Secure Msg Unassigned, HEALTH 350.1.13.10 ity of [place] 4.2.7.2.686 Scooter as PITO?BLEA [phone] Ks noel FORD[address] MEDICAL OFFICE [facility] 2023-03-31 2023-03-31 [employer], Ang - Db [facility] 1.2.840.1 14 [id number] Univers 15:15:00 15:34:55 Visit Elvia Emre HEALTH 350.1.13.10 ity of [place] 4.2.7.2.686 Scooter as PITO?BLEA [id number] Ks noel SMITH 353 [place] MEDICAL OFFICE [facility] 2023-03-31 2023-03-31 Outpatient R ELVIA [facility] [id number] Univers 14:00:00 15:08:45 EMRE ity of [facility] 2023-03-31 2023-03-31 Office Elvia [facility] 1.2.840.114 [id number] Univers 14:00:00 15:08:45 Visit Emre HEALTH 350.1.13.10 it y of [place] 4.2.7.2.686 Scooter as PITO?BLEA [phone] Ks noel SMITH [address] [place] [address] MEDICAL OFFICE [facility] 2023-03-31 2023-03-31 Letter Elvia [facility] 1.2.840.114 [id number] Univers 00:00:00 00:00:00 (Out) Emre HEALTH 350.1.13.[address] [facility] [address] [facility] 4.2.7.2.686 Scooter as PITO?BLEA [phone] Ks noel SMITH [address] [place] [address] MEDICAL OFFICE [facility] 2023-03-31 2023-03-31 Orders Doctor JEFFERY 1.2.840.114 [id number] Univers 00:00:00 00:00:00 Only Unassigned, GABO 350.1.13.10 ity of [place] [facility] 4.2.7.2.686 Scooter as [id number] [address] 2023-03-29 2023-03-29 Outpatient [facility] [id number] Univers 13:00:00 13:00:00 MELLY gant [facility] 2023-03-24 2023-03-24 Office [facility] 1.2.840.114 [id number] Univers 09:30:00 10:00:00 Visit Melly A HEALTH 350.1.13.10 i ty of [place] 4.2.7.2.686 Scooter as PITO?BLEA [id number] [address] OFFICE [facility] 2023-03-24 2023-03-24 Outpatient R [facility] [id number] Univers 09:30:00 09:30:00 MELLY gant [facility] 2023-03-24 2023-03-24 Letter [facility] 1.2.840.114 [id number] Univers 00:00:00 00:00:00 (Out) Melyl A HEALTH 350.1.13.10 i ty of [place] 4.2.7.2.686 Scooter as PITO?BLEA [id number] [address] OFFICE [facility] 2023-03-24 2023-03-24 Letter [facility] 1.2.840.114 [id number] Univers 00:00:00 00:00:00 (Out) Melly A HEALTH 350.1.13.10 i ty of [place] 4.2.7.2.686 Scooter as PITO?BLEA [phone] [address] OFFICE [facility] 2023-03-21 2023-03-21 Telephone Elvia [facility] 1.2.233.577 [id number] Univers 00:00:00 00:00:00 Emre HEALTH 350.1.13.10 it y of [place] 4.2.7.2.686 Scooter as PITO?BLEA [id number] Ks dical KNEY 044 [place] MEDICAL OFFICE [facility] 2023-03-17 2023-03-17 Outpatient [facility] [id number] Univers 15:30:00 15:30:00 RICHARD gant [facility] 2023-02-26 2023-02-26 [facility] 1.2.840.114 [id number] Univers 00:00:00 00:00:00 Emre HEALTH 350.1.13.10 it y of [place] 4.2.7.2.686 Scooter as PITO?BLEA [id number] Ks dical KNEY 044 [facility] OFFICE [facility] 2023-02-21 2023-02-21 Telephone [facility] 1.2.840.114 [id number] Univers 00:00:00 00:00:00 Richard HEALTH 350.1.13.10 it y of [place] 4.2.7.2.686 Scooter as PITO?BLEA [phone] Ks dical KNEY 220 [facility] OFFICE [facility] 2023-01-19 2023-01-19 Telephone [facility] 1.2.844.812 [id number] Univers 00:00:00 00:00:00 Emre HEALTH 350.1.13.10 it y of [place] 4.2.7.2.686 Scooter as PITO?BLEA [phone] Ks dical KNEY 044 [facility] OFFICE [facility] 2023-01-09 2023-01-09 [facility] 1.2.840.114 [id number] Univers 00:00:00 00:00:00 Emre HEALTH 350.1.13.10 it y of [place] 4.2.7.2.686 Scooter as PITO?BLEA [id number] Ks dical LOGANEY 044 [facility] OFFICE [facility] 2022-10-18 2022-10-18 [facility] 1.2.840.114 [id number] Univers 00:00:00 00:00:00 Emre HEALTH 350.1.13.10 it y of [place] 4.2.7.2.686 Scooter as PITO?BLEA [id number] Ks dical KNEY 044 [facility] OFFICE [facility] 2022-10-07 2022-10-07 Outpatient R DAX [facility] [id number] Univers 15:00:00 15:46:19 RICHARD ity of [facility] 2022-10-07 2022-10-07 Office [facility] 1.2.368.521 [id number] Univers 15:00:00 15:46:19 Visit Richard HEALTH 350.1.13.10 it y of [place] 4.2.7.2.686 Scooter as PITO?BLEA [id number] [facility] 220 [facility] OFFICE [facility] 2022-10-07 2022-10-07 Orders Doctor JEFFERY 1.2.840.114 [id number] Univers 00:00:00 00:00:00 Only Unassigned, GABO 350.1.13.10 ity of [place] HOSPITAL 4.2.7.2.686 Scooter as [id number] [address] 2022-09-15 2022-09-15 [place] [facility] 1.2.060.748 [id number] Univers 00:00:00 00:00:00 Emre HEALTH 350.1.13.10 it y of [place] 4.2.7.2.686 Scooter as PITO?BLEA [id number] [address] OFFICE [facility] 2022-08-25 2022-08-25 Outpatient [facility] [id number] Univers 15:48:17 23:59:00 ROSEANNE rucker [facility] 2022-08-16 2022-08-16 Orders Doctor JEFFERY 1.2.840.114 [id number] Univers 00:00:00 00:00:00 Only Unassigned, GABO 350.1.13.10 ity of [place] HOSPITAL 4.2.7.2.686 Scooter as [phone] [address] 2022-08-05 2022-08-05 Outpatient R [facility] [id number] Univers 14:00:00 14:39:02 ROSEANNE ferro [facility] 2022-08-05 2022-08-05 Office [facility] 1.2.840.114 [id number] Univers 14:00:00 14:39:02 Visit Roseanne HERRING 350.1.13.10 ity of [place] 4.2.7.2.686 [place] REYNAIO [phone] [place]s dical NAL 059 [facility] 2022-08-04 2022-08-04 Outpatient R ELVIA [facility] [id number] Univers 13:30:00 14:59:51 EMRE ity [facility] 2022-08-04 2022-08-04 Office [facility] 1.2.840.114 [id number] Univers 13:30:00 14:59:51 Visit Emre HEALTH 350.1.13.10 it y of [place] 4.2.7.2.686 Scooter as PITO?BLEA [phone] Ks noel FORD 044 [facility] OFFICE [facility] 2022-07-19 2022-07-19 Refjose [facility]adaGUADALU[facility] 1.2.840.114 [id number] Univers 00:00:00 00:00:00 Luis Miguel HEALTH 350.1.13.10 it y of [place] 4.2.7.2.686 Scooter as PITO?BLEA [phone] Ks noel SMITH 044 [facility] 2022-07-05 2022-07-05 Outpatient R [facility] [id number] Univers 11:30:00 11:46:02 EMRE itnakul [facility] 2022-07-05 2022-07-05 [facility] 1.2.840.114 [id number] Univers 11:30:00 11:46:02 Visit Emre HEALTH 350.1.13.10 it y of [place] 4.2.7.2.686 Scooter as PITO?BLEA 625.0112936 Ks dicsg SMITH 044 [facility] OFFICE [facility] 2022-07-05 2022-07-05 Telephone [facility] 1.2.869.230 [id number] Univers 00:00:00 00:00:00 Emre HEALTH 350.1.13.10 it y of [place] 4.2.7.2.686 Scooter as PITO?BLEA 372.5677789 [place]s noel SMITH 044 [place] MEDICAL OFFICE BUILDING 2022-06-28 2022-06-28 Telephone Elvia [facility] 1.2.640.888 [id number] Univers 00:00:00 00:00:00 Emre HEALTH 350.1.13.10 it y of [place] 4.2.7.2.686 Scooter as PITO?BLEA [id number] Ks noel FORD[address] MEDICAL OFFICE BUILDING 2022-06-22 2022-06-22 Telephone Elvia [facility] 1.2.952.627 [id number] Univers 00:00:00 00:00:00 Emre HEALTH 350.1.13.10 it y of [place] 4.2.7.2.686 Scooter as PITO?BLEA [phone] Ks noel [address] MEDICAL OFFICE BUILDING 2022-06-21 2022-06-21 Case Ebrahim, [facility] 1.2.840.114 [id number] Univers 00:00:00 00:00:00 Management Rania HEALTH 350.1.13.10 ity of [place] 4.2.7.2.686 Scooter as PITO?BLEA 490.2418491 Ks noel [address] MEDICAL OFFICE BUILDING 2022-06-21 2022-06-21 Case Ebprosperm, [facility] 1.2.840.114 [id number] Univers 00:00:00 00:00:00 Management Rania HEALTH 350.1.13.10 ity of [place] 4.2.7.2.686 Scooter as PITO?BLEA 705.4844504 [facility] [address] MEDICAL OFFICE BUILDING 2022-06-21 2022-06-21 Case Ebrahim, [facility] 1.2.840.114 [id number] Univers 00:00:00 00:00:00 Management Rania HEALTH 350.1.13.10 ity of [place] 4.2.7.2.686 Scooter as PITO?BLEA [phone] [facility] [address] MEDICAL OFFICE BUILDING 2022-06-20 2022-06-20 [employer], Ang - Db [facility] 1.2.840.1 14 [id number] Univers 12:00:00 12:14:16 Visit Emre Gan HEALTH 350.1.13.10 ity of [place] 4.2.7.2.686 Scooter as PITO?BLEA 433.9089803 [address] OFFICE [facility] 2022-06-20 2022-06-20 [employer], Ang - Db [facility] 1.2.840.1 14 [id number] [facility] 12:00:00 12:14:16 Visit Emre Gan HEALTH 350.1.13.10 ity of [place] 4.2.7.2.686 Scooter as PITO?BLEA [id number] [address] OFFICE [facility] 2022-06-20 2022-06-20 [employer], Ang - Db [facility] 1.2.840.1 14 [id number] [facility] 12:00:00 12:14:16 Visit Emre Gan HEALTH 350.1.13.10 ity of [place] 4.2.7.2.686 Scooter as PITO?BLEA [id number] [address] OFFICE [facility] 2022-06-20 2022-06-20 Outpatient R ELVIA, [facility] [id number] Univers 11:30:00 11:47:22 EMRE ity [facility] 2022-06-20 2022-06-20 Office [facility] 1.2.840.114 [id number] Univers 11:30:00 11:47:22 Visit Emre CALHOUN 350.1.13.10 it y of [place] 4.2.7.2.686 Scooter as PITO?BLEA [id number] [address] OFFICE [facility] 2022-06-20 2022-06-20 Outpatient R ELVIA, [facility] [id number] Univers 11:30:00 11:47:22 EMRE ity [facility] 2022-06-20 2022-06-20 Office Elvia, [facility] 1.2.840.114 [id number] Univers 11:30:00 11:47:22 Visit Emre HEALTH 350.1.13.10 it y of [place] 4.2.7.2.686 Scooter as PITO?BLEA [id number] Ks noel SMITH [address] [place] [address] MEDICAL OFFICE [facility] 2022-06-20 2022-06-20 Outpatient R ELVIA [facility] [id number] Univers 11:30:00 11:47:22 EMRE gant of [facility] 2022-06-20 2022-06-20 Letter [facility] 1.2.840.114 [id number] Univers 00:00:00 00:00:00 (Out) Emre HEALTH 350.1.13.10 it y of [place] 4.2.7.2.686 Scooter as PITO?BLEA 575.4127237 Ks noel FORD[address] OFFICE [facility] 2022-06-20 2022-06-20 Telephone [facility] 1.2.249.817 [id number] Univers 00:00:00 00:00:00 Emre HEALTH 350.1.13.10 it y of [place] 4.2.7.2.686 Scooter as PITO?BLEA 310.9907439 Ks noel [address] OFFICE [facility] 2022-06-20 2022-06-20 Telephone [facility] 1.2.729.528 [id number] Univers 00:00:00 00:00:00 Emre HEALTH 350.1.13.10 it y of [place] 4.2.7.2.686 Scooter as PITO?BLEA 426.0720680 Ks noel FORD[address] MEDICAL OFFICE [facility] 2022-05-28 2022-05-28 Elva Verduzco [facility] 1.2.840.114 [id number] Univers 12:00:00 12:00:00 Care Kateryna HEALTH 350.1.13.10 it y of [place] 4.2.7.2.686 Scooter as PITO?BLEA [id number] [address] OFFICE [facility] 2022-05-28 2022-05-28 [facility]va [facility] 1.2.840.114 [id number] Univers 12:00:00 12:00:00 Care Kateryna HEALTH 350.1.13.10 it y of [place] 4.2.7.2.686 Scooter as PITO?BLEA [id number] [address] MEDICAL OFFICE [facility] 2022-05-28 2022-05-28 Outpatient R GAMAL [facility] [id number] Univers 12:00:00 11:55:15 KATERYNA nakul [facility] 2022-05-20 2022-05-20 Outpatient R YAZMIN, [facility] [id number] Univers 20:40:00 20:40:00 BEBETO nakul [facility] 2022-05-12 2022-05-12 Moi [facility] 1.2.840.114 [id number] Univers 00:00:00 00:00:00 Emre HEALTH 350.1.13.10 it y of [place] 4.2.7.2.686 Scooter as PITO?BLEA [id number] [address] OFFICE [facility] 2022-04-29 2022-04-29 Urgent Yazmin, [facility] 1.2.840.114 [id number] Univers 12:00:00 12:20:00 Care Bebeto HEALTH 350.1.13.10 it y of [place] 4.2.7.2.686 Scooter as PITO?BLEA [id number] [address] OFFICE [facility] 2022-04-29 2022-04-29 Outpatient R SAEKURT, [facility] [id number] Univers 12:00:00 12:00:00 BEBETO nakul [facility] 2022-04-04 2022-04-04 Moi [facility] 1.2.840.114 [id number] Univers 00:00:00 00:00:00 Emre HEALTH 350.1.13.10 it y of [place] 4.2.7.2.686 Scooter as PITO?BLEA 694.5291440 [address] OFFICE [facility] 2022-03-28 2022-03-28 Urgent Jama Lee [facility] 1.2.840. 114 [id number] Univers 16:20:00 16:40:00 Jena Kateryna Verduzco HEALTH 350.1.13.10 ity of [place] 4.2.7.2.686 Scooter as PITO?BLEA [id number] [address] MEDICAL OFFICE [facility] 2022-03-28 2022-03-28 Outpatient R ROSA [facility] [id number] Univers 16:20:00 16:20:00 JAMA jerrynakul chaim f [facility] 2022-03-21 2022-03-21 Orders Doctor JEFFERY 1.2.840.114 [id number] Univers 00:00:00 00:00:00 Only Unassigned, GABO 350.1.13.10 ity of [place] [facility] 4.2.7.2.686 Scooter as [id number] [address] 2022-03-03 2022-03-03 Refjose [facility] 1.2.840.114 [id number] Univers 00:00:00 00:00:00 Luis Miguel HEALTH 350.1.13.10 it [facility] 4.2.7.2.686 Scooter as PITO?BLEA 235.1928296 [address] 2022-02-02 2022-02-02 Khoi GanGU[facility]AL[facility] 1.2.434.861 [id number] Univers 00:00:00 00:00:00 Emre HEALTH 350.1.13.[address] [facility] 4.2.7.2.686 Scooter as PITO?BLEA 312.1070759 [address] OFFICE [facility] 2022-01-28 2022-01-28 [facility] [id number] Univers 11:30:00 11:30:00 EMRE gant [facility] 2022-01-28 2022-01-28 Outpatient R [facility] [id number] Univers 11:30:00 11:30:00 EMRE gant [facility] 2022-01-05 2022-01-05 Urgent Bebeto Arce [facility] 1.2.840.114 [id number] Univers 13:20:00 13:20:00 Heide Ruiz HEALTH 350.1.13.[address] [facility] 4.2.7.2.686 Scooter as PITO?BLEA [id number] [address] OFFICE [facility] 2022-01-05 2022-01-05 Outpatient R BLU [facility] [id number] Univers 13:20:00 10:49:31 HEIDE ity of [facility] 2022-01-05 2022-01-05 Letter Provider, [facility] 1.2.743.848 [id number] Univers 00:00:00 00:00:00 (Out) Ang Db HEALTH 350.1.13.10 it y of Urgent Care [place] 4.2.7.2.686 [place] PITO?BLEA [phone] [address] MEDICAL OFFICE [facility] 2022-01-05 2022-01-05 Telephone Yazmin [facility] 1.2.840.114 [id number] Univers 00:00:00 00:00:00 Rania HEALTH 350.1.13.[address] [facility] 4.2.7.2.686 Scooter as PITO?BLEA [id number] [address] OFFICE [facility] 2022-01-04 2022-01-04 Orders Doctor JEFFERY 1.2.840.114 [id number] Univers 00:00:00 00:00:00 Only Unassigned, GABO 350.1.13.10 ity of [place] [facility]OSPITAL 4.2.7.2.686 Scooter as 133.1018276 [address] 2021-12-31 2021-12-31 Telephone [facility] 1.2.458.250 [id number] Univers 00:00:00 00:00:00 Emre HEALTH 350.1.13.10 it y of [place] 4.2.7.2.686 Scooter as PITO?BLEA 194.2432824 [address] OFFICE [facility] 2021-12-31 2021-12-31 Telephone [facility] 1.2.689.887 [id number] Univers 00:00:00 00:00:00 Emre HEALTH 350.1.13.10 it y of [place] 4.2.7.2.686 Scooter as PITO?BLEA 849.1948961 [address] OFFICE [facility] 2021-12-30 2021-12-30 Outpatient R ELVIA [facility] [id number] Univers 11:00:00 11:00:00 EMRE ity [facility] 2021-12-30 2021-12-30 Outpatient R ELVIA [facility] [id number] Univers 11:00:00 11:00:00 EMRE gant [facility] 2021-12-28 2021-12-28 Outpatient R ELVIA [facility] [id number] Univers 11:30:00 12:26:05 EMRE gant [facility] 2021 2021 Telephone [facility] 1.2.807.424 [id number] Univers 00:00:00 00:00:00 Emre CALHOUN 350.1.13.10 it y of [place] 4.2.7.2.686 Scooter as PITO?BLEA [id number] [address] OFFICE [facility] 2021-11-04 2021-11-04 Outpatient R TAMMYAnthony [facility] [id number] Univers 11:30:00 11:30:00 CHRISTOPHER stalin [facility] 2021-11-02 2021-11-02 [employer], Ang - Db [facility] 1.2.840.1 14 [id number] Univers 16:30:00 16:45:00 Visit Emre Gan 350.1.13.[address] [facility] 4.2.7.2.686 Scooter as PITO?BLEA [id number] [address] OFFICE [facility] 2021-11-02 2021-11-02 [facility] [id number] Univers 15:00:00 16:27:02 EMRE gant [facility] 2021-11-02 2021-11-02 Office [facility]athi[facility] 1.2.840.114 [id number] Univers 15:00:00 16:27:02 Visit Emre CALHOUN 350.1.13.10 it y of [place] 4.2.7.2.686 Scooter as PITO?BLEA [id number] [address] OFFICE [facility] 2021-10-19 2021-10-19 Telephone [place] .2.840.114 90 [id number] Univers 00:00:00 00:00:00 Demetri Hyde HEALTH 350.1.13.10 i ty of [place] [id number] [address] 2021-10-18 2021-10-18 Outpatient R DEMETRI LAKE [facility] 10 [id number] Univers 13:45:00 15:41:27 DEMETRI LAKE santiago ty [facility] 2021-10-18 2021-10-18 Office Aldo, [facility] 1.2.840.114 [id number] Univers 13:45:00 15:41:27 Visit Demetri Lake HEALTH 350.1.13.10 ity [place] [id number] [address] 2021-10-18 2021-10-18 Office Aldo [facility] 1.2.840.114 [id number] [facility] 13:45:00 15:41:27 Visit FredyKimberlynt Braeden Hyde HEALTH 350.1.13.10 ity of [place] [id number] [address] 2021-10-18 2021-10-18 Outpatient R FREDYKIMBERLYNT [facility] 10 [id number] Univers 13:45:00 15:41:27 DEMETRI LAKE santiago ty [facility] 2021-10-13 2021-10-13 [facility]phone [facility] 1.2.771.245 [id number] [facility] 00:00:00 00:00:00 Emre HEALTH 350.1.13.10 it y of [place] 4.2.7.2.686 Scooter as PITO?BLEA 622.7817422 [address] OFFICE [facility] 2021-10-05 2021-10-05 [facility] [id number] Univers 10:30:00 11:13:32 Visit Emre HEALTH 350.1.13.10 it y of [place] 4.2.7.2.686 Scooter as PITO?BLEA [phone] [address] OFFICE [facility] 2021-10-05 2021-10-05 Outpatient R ELVIA [facility] [id number] Univers 10:30:00 11:13:32 EMRE gant [facility] 2021-10-05 2021-10-05 Outpatient R ELVIA [facility] [id number] Univers 10:30:00 10:30:00 EMRE gant [facility] 2021-10-05 2021-10-05 Outpatient R ELVIA [facility] [id number] Univers 10:30:00 10:30:00 EMRE gant [facility] 2021-10-04 2021-10-04 [facility] [id number] [employer] 00:00:00 00:00:00 Emre HEALTH 350.1.13.10 it y of [place] 4.2.7.2.686 Scooter as PITO?BLEA [id number] [address] OFFICE [facility] 2021-09-27 2021-09-27 [employer], [facility] [id number] Univers 10:30:00 10:45:00 Visit Emre Gan 350.1.13.10 ity of [place] 4.2.7.2.686 Scooter as PITO?BLEA [id number] [facility] [address] [facility] OFFICE [facility] 2021-09-27 2021-09-27 Outpatient R ELVIA [facility] [id number] Univers 10:30:00 10:30:00 EMRE gant [facility] 2021-09-27 2021-09-27 [facility] [id number] Univers 00:00:00 00:00:00 Emre HEALTH 350.1.13.10 it y of [place] 4.2.7.2.686 Scooter as PITO?BLEA [phone] [address] MEDICAL OFFICE [facility] 2021-09-24 2021-09-24 Outpatient R ELVIA [facility] [id number] Univers 16:30:00 17:11:50 EMRE gant [facility] 2021-09-24 2021-09-24 [facility] [id number] Univers 16:30:00 17:11:50 Visit Emre CALHOUN 350.1.13.10 it [place] 4.2.7.2.686 Scooter as PITO?BLEA [phone] [address] MEDICAL OFFICE [facility] 2021-09-24 2021-09-24 [facility] [id number] Univers 16:30:00 17:11:50 EMRE gant [facility] 2021-09-06 2021-09-06 Office [facility] [id number] Univers 13:07:39 14:01:08 Visit Emre CALHOUN 350.1.13.10 it y [place] 4.2.7.2.686 Scooter as PITO?BLEA [id number] [address] OFFICE [facility] 2021-09-06 2021-09-06 [facility] [id number] Univers 13:00:00 14:01:08 EMRE gant [facility] 2021-09-06 2021-09-06 [facility] [id number] Univers 13:00:00 13:00:00 EMRE gant [facility] 2021-09-06 2021-09-06 Orders Doctor JEFFERY [id number] Univers 00:00:00 00:00:00 Only Unassigned, GABO 350.1.13.10 ity of Rebecca [facility] 4.2.7.2.686 Scooter as [id number] [address] 2021-02-06 2021-02-06 [facility] [id number] Univers 13:10:00 13:10:00 SHERIF stalin [facility] 2021-01-16 2021-01-16 Outpatient [facility] [id number] [facility] 13:10:00 13:10:00 [facility] Results Test Description Test Time Test Comments Results Result Comments Source POCT HEMOGLOBIN A1C TEST 2022-08-04 21:00:00 Test Item Value Reference Range Interpretation Comme nts POCT HBA1C (test code = 4548-4) 12.1 % 4-6 A Lab Interpretation (test code = 51102-8) [facility] [id number] 21:00:00 Test Item Value Reference Range Interpretation Comments POCT HBA1C (test code = 4548-4) 12.1 % 4-6 A Lab Interpretation (test code = Abnormal 91823-0) [facility]
--- NOTE | 2023-05-08 20:53 | RAD REPORT ---
EXAM DESCRIPTION: RAD - Hand Left 3 View - 05/08/2023 8:44 pm CLINICAL HISTORY: Swelling;Pain COMPARISON: none FINDINGS/IMPRESSION: No acute fracture. No malalignment. No significant focal degenerative changes.
--- NOTE | 2023-05-08 21:30 | ER ---
Nurse's Notes [facility] Name: Sergio Hilton Age: 22 yrs Sex: Male : 2000 Arrival Date: 05/08/2023 Time: 19:13 Bed DIS3 Private MD: Diagnosis: Cellulitis of left upper limb-left hand Presentation: 05/08 19:24 Chief complaint: Patient states: that he has a PMHx of eczema and he sometimes forms cm10 "puss pockets" on his hand and yesterday he noticed one and popped it and now his fingers are swelling. No fevers. Coronavirus screen: Vaccine status: Patient reports receiving the 2nd dose of the covid vaccine. Ebola Screen: No symptoms or risks identified at this time. Initial Sepsis Screen: Does the patient meet any 2 criteria? No. Patient's initial sepsis screen is negative. Does the patient have a suspected source of infection? No. Patient's initial sepsis screen is negative. Risk Assessment: Do you want to hurt yourself or someone else? Patient reports no desire to harm self or others. Onset of symptoms was May 07, 2023. 19:24 Method Of Arrival: Ambulatory cm10 19:24 Acuity: YURI 4 cm10 Triage Assessment: 21:48 General: Appears. as6 Historical: - Allergies: 19:26 Latex, Natural Rubber; cm10 - PMHx: 19:26 Bipolar disorder; Diabetes - NIDDM; Irritable bowel syndrome; Leukemia; cm10 - PSHx: 19:26 Appendectomy; cm10 - Immunization history:: Adult Immunizations unknown. - Social history:: Smoking status: Patient denies any tobacco usage or history of. Screenin:47 [facility] ED Fall Risk Assessment (Adult) Score/Fall Risk Level 0 - 2 = Low Risk. Abuse as6 screen: Denies threats or abuse. Denies injuries from another. Nutritional screening: No deficits noted. Tuberculosis screening: No symptoms or risk factors identified. Vital Signs: 19:24 BP 141 / 87; Pulse 118; Resp 18; Temp 99.1; Pulse Ox 98% ; Weight 68.04 kg; Height 5 cm10 ft. 5 in. ; Pain 5/10; 19:24 Body Mass Index 24.96 (68.04 kg, 165.1 cm) cm10 19:24 Pain Scale: Adult cm10 ED Course: 19:17 Patient arrived in ED. ag3 19:17 Ulises Sullivan PA is PHCP. cp 19:17 Devon Emmanuel MD is Attending Physician. cp 19:26 Triage completed. cm10 19:26 Arm band placed on Patient placed in waiting room. cm10 20:46 XRAY Hand LEFT 3 View In Process Unspecified. EDMS 21:47 Bed in low position. Call light in reach. Provided Education on: pt left before as6 receiving discharge teaching . 21:48 No provider procedures requiring assistance completed. Patient did not have IV access as6 during this emergency room visit. Administered Medications: No medications were administered Medication: 21:47 VIS not applicable for this client. as6 Outcome: 21:29 Discharge ordered by . cp 21:48 Discharged to home ambulatory. as6 21:48 Condition: stable as6 21:48 Discharge instructions given to pt left before receiving discharge paper work and prescriptions 21:49 Patient left the ED. as6 Signatures: Dispatcher [employer] EDWI Ulises Sullivan PA PA cp Shala Liu ag3 Johny Timmons, RN RN as6 Meenakshi Joe, RN RN cm10
--- NOTE | 2023-05-08 21:30 | EDPHYS ---
Physician Documentation [facility] Name: Sergio Hilton Age: 22 yrs Sex: Male : 2000 Arrival Date: 05/08/2023 Time: 19:13 Bed DIS3 Private MD: ED Physician Devon Emmanuel HPI: 05/08 20:30 This 22 yrs old Male presents to ER via Ambulatory with complaints of PUSS ON cp HAND. 20:30 The patient or guardian reports pain, swelling, tenderness. The complaints affect the cp left hand. Onset: The symptoms/episode began/occurred yesterday. Associated signs and symptoms: Pertinent negatives: fever, injury. 20:30 Patient with PMHX significant for diabetes. Reports HX of bilateral hand dermatitis. 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 Notices pustular type lesions on fingers/hands at times. Expressed a pustular lesion on left middle finger yesterday, now today with pain and swelling. Historical: - Allergies: 19:26 Latex, Natural Rubber; cm10 - PMHx: 19:26 Bipolar disorder; Diabetes - NIDDM; Irritable bowel syndrome; Leukemia; cm10 - PSHx: 19:26 Appendectomy; cm10 - Immunization history:: Adult Immunizations unknown. - Social history:: Smoking status: Patient denies any tobacco usage or history of. ROS: 20:35 Constitutional: Negative for body aches, chills, fever, poor PO intake. cp 20:35 Respiratory: Negative for cough, shortness of breath, wheezing. cp 20:35 Abdomen/GI: Negative for abdominal pain, nausea, vomiting, and diarrhea. 20:35 MS/extremity: Positive for erythema, pain, swelling, tenderness, warmth, of the left hand. 20:35 Neuro: Negative for altered mental status, dizziness, headache, weakness. 20:35 All other systems are negative. Exam: 20:40 Constitutional: The patient appears in no acute distress, alert, awake, non-toxic, well cp developed, well nourished. 20:40 Head/Face: Normocephalic, atraumatic. cp 20:40 Eyes: Periorbital structures: appear normal, Conjunctiva: normal, Lids and lashes: appear normal, bilaterally. 20:40 ENT: External ear(s): are unremarkable, Nose: is normal, Mouth: Lips: moist, Oral mucosa: moist, Posterior pharynx: Airway: no evidence of obstruction, patent. 20:40 Chest/axilla: Inspection: normal. 20:40 Cardiovascular: Rate: tachycardic. 20:40 Respiratory: the patient does not display signs of respiratory distress, Respirations: normal, no use of accessory muscles, no retractions, labored breathing, is not present. 20:40 Musculoskeletal/extremity: Extremities: noted in the left hand: mild swelling and erythema extending proximally from web space of left third and fourth fingers, tenderness to palpation, no abscess appreciated. Vital Signs: 19:24 BP 141 / 87; Pulse 118; Resp 18; Temp 99.1; Pulse Ox 98% ; Weight 68.04 kg; Height 5 cm10 ft. 5 in. ; Pain 5/10; 19:24 Body Mass Index 24.96 (68.04 kg, 165.1 cm) cm10 19:24 Pain Scale: Adult cm10 MDM: 19:31 Patient medically screened. 21:29 Data reviewed: vital signs, nurses notes, radiologic studies, plain films. 21:29 Differential diagnosis: closed fracture, contusion, abscess, cellulitis, dermatitis. cp Test considered but Not performed: Labs: cbc, bmp. Care significantly affected by the following chronic conditions: Diabetes. Counseling: I had a detailed discussion with the patient and/or guardian regarding: the historical points, exam findings, and any diagnostic results supporting the discharge/admit diagnosis, to return to the emergency department if symptoms worsen or persist or if there are any questions or concerns that arise at home. 05/08 20:27 Order name: XRAY Hand LEFT 3 View; Complete Time: 21:34 05/08 21:35 Interpretation: Report reviewed. 05/08 20:27 Order name: Accucheck Blood Glucose cp Administered Medications: No medications were administered Disposition Summary: 05/08/23 21:29 Discharge Ordered Location: Home cp Problem: new cp Symptoms: are unchanged cp Condition: Stable cp Diagnosis - Cellulitis of left upper limb - left hand cp Followup: cp - With: Private Physician - When: 2 - 3 days - Reason: Worsening of condition Discharge Instructions: - Discharge Summary Sheet cp - Cellulitis, Adult cp Forms: - Medication Reconciliation Form cp - Thank You Letter cp - Antibiotic Education cp - Prescription Opioid Use cp - Patient Portal Instructions cp - Work release form as6 Prescriptions: - Ibuprofen 800 mg Oral Tablet - take 1 tablet by ORAL route every 8 hours As needed take with food; 30 tablet; cp Refills: 0, Product Selection Permitted - Doxycycline Hyclate 100 mg Oral Tablet - take 1 tablet by ORAL route every 12 hours; 20 tablet; Refills: 0, Product cp Selection Permitted Signatures: Dispatcher [employer] EDUlises Ba PA PA cp Martinez, Clarissa RN RN cm10
[2023-05-08 22:06] VITALS: BP 141/87; TEMP 99.1; O2SAT 98
== END 2023-05-08 21:49 | disposition home or self-care (01) ==
LOC: ER 19:13
DX: L03.114 Cellulitis of left upper limb (principal)
CPT/HCPCS: 99282

== ENCOUNTER 2023-05-13 06:45 | Emergency (ER) | payer OTHER ==
--- OUTSIDE RECORDS SUMMARY | 2023-05-13 06:56 | XMS REPORT | Continuity of Care Document ---
:2000 Author Organization [facility] t Address [address] [place] [address] [place] [id number] Care Team Providers Name Role Phone Emre Nieves Primary Care Physician JOSE CHIRINOS Attending Clinician Unavailable EMRE GAN Attending Clinician Unavailable RICHARD CRUZ Attending Clinician Unavailable Richard Cruz MD Attending Clinician Emre Nieves Attending Clinician Doctor Unassigned, [place] Attending Clinician Unavailable Lab, [facility] Attending Clinician Unavailable MELLY BARBER Attending Clinician [...] HEIDE HURT Attending Clinician Unavailable Provider, [facility] Attending Clinician Unavailable CHRISTOPHER TAMAYO Attending Clinician Unavailable Demetri Lake MD Attending Clinician DEMETRI LAKE Attending Clinician Unavailable DEMETRI LAKE Attending Clinician Unavailable Joan Carlson MD Attending Clinician SHERIF HERNANDEZ Attending Clinician Unavailable ROSEANNE LEVINE Admitting Clinician Unavailable Payers Payer Name Policy Type Policy Number Effective Date Expiration Date Aquiles nathan [facility] [id number] 2022 PLUS 00:00:00 [facility], [facility] [id number] 2018 [facility] MEDICAID 00:00:00 Problems Condition Condition Condition Status [...] different from the original. ICD10 Diagnosis Term Trekking Guide Utility Leukemia Leukemia Disease Active Unive rs [...] Univers GASE INGREDI 2-25 ity of 00:00: [place] 00 [facility] Social History Social Habit Start Date Stop Date Quantity Comments Source History of tobacco Passive smoker Un iversity of use [facility] Gender identity Universit y of [facility] Sexual orientation Univer sity of [facility] Alcohol intake 2023-04-21 2023-04-21 Current University of 00:00:00 00:00:00 non-drinker of [facility] alcohol [place] (finding) Exposure to 2023-03-14 2023-03-24 Not sure [facility] SARS-CoV-2 (event) 00:00:00 09:25:00 [facility] History of Social 2023-03-24 2023-03-24 Univers ity of function 00:00:00 00:00:00 [facility] Tobacco use and 2022-06-20 2022-06-20 Smokeless Universit y of exposure 00:00:00 00:00:00 tobacco non-user [facility] Tobacco Comment 2022-06-20 2022-06-20 Family smokes Univer sity of 00:00:00 00:00:00 outside [facility] Sex Assigned At 2000 2000 Universit y of 00:00:00 00:00:00 [facility] Smoking Status Start Date Stop Date Source Never smoked tobacco [facility] Medications Ordered Filled Start Stop Current Ordering Indication Dosage Frequency Signature Comments Components Source Medication Medication Date Date Medication? Clinician (SIG) Name Name Insulin Yes [id number] 15U inject 15 Univers Glargine 7-14 Units ity of (LANTUS 00:00: under the [place] SOLOSTCT 00 skin in Medical U-100 the Branch INSULIN) morning 100 unit/mL and 15 (3 mL) Units in injection the evening. Insulin Yes [id number] 15U inject 15 Univers Glargine 7-14 Units ity of (LANTUS 00:00: under the [place] SOLOSTAR 00 skin in Medical U-100 the Branch INSULIN) morning 100 unit/mL and 15 (3 mL) Units in injection the evening. Insulin 2022-0 Yes [id number] 15U inject 15 Univers Glargine 7-14 Units ity of (LANTUS 00:00: under the [place] SOLOSTAR 00 skin in Medical U-100 the Branch INSULIN) morning 100 unit/mL and 15 (3 mL) Units in injection the evening. semaglutide 2022-0 Yes [id number] .5mg inject 0.5 Univers (OZEMPIC) 7-06 mg under ity of 0.25 mg or 00:00: the skin [place] as 0.5 mg(2 00 weekly. Medical mg/1.5 mL) Branch PnIj semaglutide 2022-0 Yes [id number] .5mg inject 0.5 Univers (OZEMPIC) 7-06 mg under ity of 0.25 mg or 00:00: the skin [place] 0.5 mg(2 00 weekly. Medical mg/1.5 mL) Branch PnIj semaglutide 2022-0 Yes [id number] .5mg inject 0.5 Univers (OZEMPIC) 7-06 mg under ity of 0.25 mg or 00:00: the skin [place] 0.5 mg(2 00 weekly. Medical mg/1.5 mL) Branch PnIj semaglutide 2022-0 Yes [id number] .5mg inject 0.5 Univers (OZEMPIC) 7-06 mg under ity of 0.25 mg or 00:00: the skin [place] 0.5 mg(2 00 weekly. Medical mg/1.5 mL) Branch PnIj semaglutide 3-0 Yes [id number] .5mg inject 0.5 Univers (OZEMPIC) 7-06 mg under ity of 0.25 mg or 00:00: the skin [place] 0.5 mg(2 00 weekly. Medical mg/1.5 mL) Branch PnIj semaglutide 3-0 Yes [id number] .5mg inject 0.5 Univers (OZEMPIC) 7-06 mg under ity of 0.25 mg or 00:00: the skin [place] 0.5 mg(2 00 weekly. Medical mg/1.5 mL) Branch PnIj Insulin 2022-0 Yes [id number] 15U inject 15 Univers Glargine 6-23 Units ity of (LANTUS 00:00: under the [place] SOLOSTAR 00 skin in Medical U-100 the Branch INSULIN) morning 100 unit/mL and 15 (3 mL) Units in injection the evening. semaglutide 2022-0 Yes [id number] .25mg inject Univers (OZEMPIC) 6-23 0.25 mg ity of 0.25 mg or 00:00: under the [place] 0.5 mg(2 00 skin Medical mg/1.5 mL) weekly. Branch PnIj Insulin 2022-0 Yes [id number] 15U inject 15 Univers Glargine 6-23 Units ity of (LANTUS 00:00: under the [place] SOLOSTAR 00 skin in Medical U-100 the Branch INSULIN) morning 100 unit/mL and 15 (3 mL) Units in injection the evening. semaglutide 2022-0 Yes [id number] .25mg inject Univers (OZEMPIC) 6-23 0.25 mg ity of 0.25 mg or 00:00: under the [place] 0.5 mg(2 00 skin Medical mg/1.5 mL) weekly. Branch PnIj Insulin 2022-0 Yes [id number] 15U inject 15 Univers Glargine 6-23 Units ity of (LANTUS 00:00: under the [place] SOLOSTAR 00 skin in Medical U-100 the Branch INSULIN) morning 100 unit/mL and 15 (3 mL) Units in injection the evening. semaglutide 2022-0 Yes [id number] .25mg inject Univers (OZEMPIC) 6-23 0.25 mg ity of 0.25 mg or 00:00: under the [place] 0.5 mg(2 00 skin Medical mg/1.5 mL) weekly. Branch PnIj Insulin 2022-0 Yes [id number] 15U inject 15 Univers Glargine 6-23 Units ity of (LANTUS 00:00: under the [place] SOLOSTAR 00 skin in Medical U-100 the Branch INSULIN) morning 100 unit/mL and 15 (3 mL) Units in injection the evening. semaglutide 2022-0 Yes [id number] .25mg inject Univers (OZEMPIC) 6-23 0.25 mg ity of 0.25 mg or 00:00: under the [place] 0.5 mg(2 00 skin Medical mg/1.5 mL) weekly. Branch PnIj Insulin 2022-0 Yes [id number] 15U inject 15 Univers Glargine 6-23 Units ity of (LANTUS 00:00: under the [place] SOLOSTAR 00 skin in Medical U-100 the Branch INSULIN) morning 100 unit/mL and 15 (3 mL) Units in injection the evening. semaglutide 0 Yes [id number] .25mg inject Univers (OZEMPIC) 6-23 0.25 mg ity of 0.25 mg or 00:00: under the [place] 0.5 mg(2 00 skin Medical mg/1.5 mL) weekly. Branch PnIj Insulin 0 Yes [id number] 15U inject 15 Univers Glargine 6-23 Units ity of (LANTUS 00:00: under the [place] SOLOSTAR 00 skin in Medical U-100 the Branch INSULIN) morning 100 unit/mL and 15 (3 mL) Units in injection the evening. semaglutide 2022-0 Yes [id number] .25mg inject Univers (OZEMPIC) 6-23 0.25 mg ity of 0.25 mg or 00:00: under the [place] 0.5 mg(2 00 skin Medical mg/1.5 mL) weekly. Branch PnIj Insulin 0 Yes [id number] 15U inject 15 Univers Glargine 6-23 Units ity of (LANTUS 00:00: under the [place] SOLOSTAR 00 skin in Medical U-100 the Branch INSULIN) morning 100 unit/mL and 15 (3 mL) Units in injection the evening. Insulin 2022-0 Yes [id number] 15U inject 15 Univers Glargine 6-23 Units ity of (LANTUS 00:00: under the [place] SOLOSTAR 00 skin in Medical U-100 the Branch INSULIN) morning 100 unit/mL and 15 (3 mL) Units in injection the evening. Insulin 2022-0 Yes [id number] 15U inject 15 Univers Glargine 6-23 Units ity of (LANTUS 00:00: under the [place] SOLOSTAR 00 skin in Medical U-100 the Branch INSULIN) morning 100 unit/mL and 15 (3 mL) Units in injection the evening. Insulin Yes [id number] 15U inject 15 Univers Glargine 6-23 Units ity of (LANTUS 00:00: under the [place] SOLOSTAR 00 skin in [facility] U-100 [facility] INSULIN) morning 100 unit/mL and 15 (3 mL) Units in injection the evening. Insulin 2022- No [id number] 15U inject 15 Univers Glargine 03-31 07-14 Units ity of (LANTUS 00:00: 00:00 under the [facility] s SOLOSTAR 00 :00 skin in [facility] U-100 [facility] INSULIN) morning 100 unit/mL and 15 (3 mL) Units in injection the evening. Insulin 2022- No [id number] 15U inject 15 Univers Glargine 03-31 07-14 Units ity of (LANTUS 00:00: 00:00 under the [facility] 00 :00 skin in [facility] U-[address] [place] [address] INSULIN) morning 100 unit/mL and 15 (3 mL) Units in injection the evening. semaglutide 3- No [id number] .25mg inject Univers (OZEMPIC) 03-31-06 0.25 mg ity of 0.25 mg or 00:00: 00:00 under the [place] 0.5 mg(2 00 :00 skin Medical mg/1.5 mL) weekly. Branch PnIj semaglutide 2022- No [id number] .25mg inject Univers (OZEMPIC) 03-31-06 0.25 mg ity of 0.25 mg or 00:00: 00:00 under the [place] 0.5 mg(2 00 :00 skin Medical mg/1.5 mL) weekly. Branch PnIj icosapent 0 Yes [id number] 2g Take 2 U nivers ethyL 6-16 capsules ity of (VASCEPA) 1 00:00: by mouth [place] gram 00 in the Medical capsule morning Branch and 2 capsules in the evening. ezetimibe 0 Yes [id number] 10mg Take 1 U nivers 10 mg 6-16 tablet by ity of tablet 00:00: mouth in [place] 00 the Medical morning. Branch rosuvastati 2022-0 Yes [id number] 20mg Take 1 Univers n (CRESTOR) 6-16 tablet by ity of 20 mg 00:00: mouth at [place] tablet 00 bedtime. Medical Branch lisinopriL 2022-0 Yes [id number] 2.5mg Take 1 Univers 2.5 mg 6-16 tablet by ity of tablet 00:00: mouth in [place] 00 the Medical morning. Branch icosapent 2022-0 Yes [id number] 2g Take 2 U nivers ethyL 6-16 capsules ity of (VASCEPA) 1 00:00: by mouth [place] gram 00 in the Medical capsule morning Branch and 2 capsules in the evening. ezetimibe 2022-0 Yes [id number] 10mg Take 1 U nivers 10 mg 6-16 tablet by ity of tablet 00:00: mouth in [place] 00 the Medical morning. Branch rosuvastati 2022-0 Yes [id number] 20mg Take 1 Univers n (CRESTOR) 6-16 tablet by ity of 20 mg 00:00: mouth at [place] tablet 00 bedtime. Medical Branch lisinopriL 2022-0 Yes [id number] 2.5mg Take 1 Univers 2.5 mg 6-16 tablet by ity of tablet 00:00: mouth in [place] 00 the Medical morning. Branch icosapent 2022-0 Yes [id number] 2g Take 2 U nivers ethyL 6-16 capsules ity of (VASCEPA) 1 00:00: by mouth [place] gram 00 in the Medical capsule morning Branch and 2 capsules in the evening. ezetimibe 2022-0 Yes [id number] 10mg Take 1 U nivers 10 mg 6-16 tablet by ity of tablet 00:00: mouth in [place] 00 the Medical morning. Branch rosuvastati 2022-0 Yes [id number] 20mg Take 1 Univers n (CRESTOR) 6-16 tablet by ity of 20 mg 00:00: mouth at [place] tablet 00 bedtime. Medical Branch lisinopriL 2022-0 Yes [id number] 2.5mg Take 1 Univers 2.5 mg 6-16 tablet by ity of tablet 00:00: mouth in [place] 00 the Medical morning. Branch icosapent 2022-0 Yes [id number] 2g Take 2 U nivers ethyL 6-16 capsules ity of (VASCEPA) 1 00:00: by mouth [place] gram 00 in the Medical capsule morning Branch and 2 capsules in the evening. ezetimibe 3-0 Yes [id number] 10mg Take 1 U nivers 10 mg 6-16 tablet by ity of tablet 00:00: mouth in [place] 00 the Medical morning. Branch rosuvastati 3-0 Yes [id number] 20mg Take 1 Univers n (CRESTOR) 6-16 tablet by ity of 20 mg 00:00: mouth at [place] tablet 00 bedtime. Medical Branch lisinopriL 2022-0 Yes [id number] 2.5mg Take 1 Univers 2.5 mg 6-16 tablet by ity of tablet 00:00: mouth in [place] 00 the Medical morning. Branch icosapent 2022-0 Yes [id number] 2g Take 2 U nivers ethyL 6-16 capsules ity of (VASCEPA) 1 00:00: by mouth [place] gram 00 in the Medical capsule morning Branch and 2 capsules in the evening. ezetimibe 2022-0 Yes [id number] 10mg Take 1 U nivers 10 mg 6-16 tablet by ity of tablet 00:00: mouth in [place] 00 the Medical morning. Branch rosuvastati 2022-0 Yes [id number] 20mg Take 1 Univers n (CRESTOR) 6-16 tablet by ity of 20 mg 00:00: mouth at [place] tablet 00 bedtime. Medical Branch lisinopriL 2022-0 Yes [id number] 2.5mg Take 1 Univers 2.5 mg 6-16 tablet by ity of tablet 00:00: mouth in [place] 00 the Medical morning. Branch icosapent 2022-0 Yes [id number] 2g Take 2 U nivers ethyL 6-16 capsules ity of (VASCEPA) 1 00:00: by mouth [place] gram 00 in the Medical capsule morning Branch and 2 capsules in the evening. ezetimibe 2023-0 Yes [id number] 10mg Take 1 U nivers 10 mg 6-16 tablet by ity of tablet 00:00: mouth in [place] 00 the Medical morning. Branch rosuvastati 3-0 Yes [id number] 20mg Take 1 Univers n (CRESTOR) 6-16 tablet by ity of 20 mg 00:00: mouth at [place] tablet 00 bedtime. Medical Branch lisinopriL 3-0 Yes [id number] 2.5mg Take 1 Univers 2.5 mg 6-16 tablet by ity of tablet 00:00: mouth in [place] 00 the Medical morning. Branch icosapent 2022-0 Yes [id number] 2g Take 2 U nivers ethyL 6-16 capsules ity of (VASCEPA) 1 00:00: by mouth [place] gram 00 in the Medical capsule morning Branch and 2 capsules in the evening. ezetimibe 3-0 Yes [id number] 10mg Take 1 U nivers 10 mg 6-16 tablet by ity of tablet 00:00: mouth in [place] 00 the Medical morning. Branch rosuvastati 2022-0 Yes [id number] 20mg Take 1 Univers n (CRESTOR) 6-16 tablet by ity of 20 mg 00:00: mouth at [place] tablet 00 bedtime. Medical Branch lisinopriL 2022-0 Yes [id number] 2.5mg Take 1 Univers 2.5 mg 6-16 tablet by ity of tablet 00:00: mouth in [place] 00 the Medical morning. Branch icosapent 2022-0 Yes [id number] 2g Take 2 U nivers ethyL 6-16 capsules ity of (VASCEPA) 1 00:00: by mouth [place] gram 00 in the Medical capsule morning Branch and 2 capsules in the evening. ezetimibe 2022-0 Yes [id number] 10mg Take 1 U nivers 10 mg 6-16 tablet by ity of tablet 00:00: mouth in [place] 00 the Medical morning. Branch rosuvastati 2022-0 Yes [id number] 20mg Take 1 Univers n (CRESTOR) 6-16 tablet by ity of 20 mg 00:00: mouth at [place] tablet 00 bedtime. Medical Branch lisinopriL 2022-0 Yes [id number] 2.5mg Take 1 Univers 2.5 mg 6-16 tablet by ity of tablet 00:00: mouth in [place] 00 the Medical morning. Branch icosapent 2022-0 Yes [id number] 2g Take 2 U nivers ethyL 6-16 capsules ity of (VASCEPA) 1 00:00: by mouth [place] gram 00 in the Medical capsule morning Branch and 2 capsules in the evening. ezetimibe 2023-0 Yes [id number] 10mg Take 1 U nivers 10 mg 6-16 tablet by ity of tablet 00:00: mouth in [place] 00 the Medical morning. Branch rosuvastati 2022-0 Yes [id number] 20mg Take 1 Univers n (CRESTOR) 6-16 tablet by ity of 20 mg 00:00: mouth at [place] tablet 00 bedtime. Medical Branch lisinopriL 2022-0 Yes [id number] 2.5mg Take 1 Univers 2.5 mg 6-16 tablet by ity of tablet 00:00: mouth in [place] 00 the Medical morning. Branch icosapent 2022-0 Yes [id number] 2g Take 2 U nivers ethyL 6-16 capsules ity of (VASCEPA) 1 00:00: by mouth [place] gram 00 in the Medical capsule morning Branch and 2 capsules in the evening. ezetimibe 2022-0 Yes [id number] 10mg Take 1 U nivers 10 mg 6-16 tablet by ity of tablet 00:00: mouth in [place] 00 the Medical morning. Branch rosuvastati 2022-0 Yes [id number] 20mg Take 1 Univers n (CRESTOR) 6-16 tablet by ity of 20 mg 00:00: mouth at [place] tablet 00 bedtime. Medical Branch lisinopriL 2022-0 Yes [id number] 2.5mg Take 1 Univers 2.5 mg 6-16 tablet by ity of tablet 00:00: mouth in [place] 00 the Medical morning. Branch icosapent 2022-0 Yes [id number] 2g Take 2 U nivers ethyL 6-16 capsules ity of (VASCEPA) 1 00:00: by mouth [place] gram 00 in the Medical capsule morning Branch and 2 capsules in the evening. ezetimibe 2022-0 Yes [id number] 10mg Take 1 U nivers 10 mg 6-16 tablet by ity of tablet 00:00: mouth in [place] 00 the Medical morning. Branch rosuvastati 2022-0 Yes [id number] 20mg Take 1 Univers n (CRESTOR) 6-16 tablet by ity of 20 mg 00:00: mouth at [place] tablet 00 bedtime. Medical Branch lisinopriL 2022-0 Yes [id number] 2.5mg Take 1 Univers 2.5 mg 6-16 tablet by ity of tablet 00:00: mouth in [place] 00 the Medical morning. Branch icosapent 2022-0 Yes [id number] 2g Take 2 U nivers ethyL 6-16 capsules ity of (VASCEPA) 1 00:00: by mouth [place] gram 00 in the Medical capsule morning Branch and 2 capsules in the evening. ezetimibe 2022-0 Yes [id number] 10mg Take 1 U nivers 10 mg 6-16 tablet by ity of tablet 00:00: mouth in [place] 00 the Medical morning. Branch rosuvastati 2022-0 Yes [id number] 20mg Take 1 Univers n (CRESTOR) 6-16 tablet by ity of 20 mg 00:00: mouth at [place] tablet 00 bedtime. Medical Branch lisinopriL 2022-0 Yes [id number] 2.5mg Take 1 Univers 2.5 mg 6-16 tablet by ity of tablet 00:00: mouth in [place] 00 the Medical morning. Branch icosapent 2022-0 Yes [id number] 2g Take 2 U nivers ethyL 6-16 capsules ity of (VASCEPA) 1 00:00: by mouth [place] gram 00 in the Medical capsule morning Branch and 2 capsules in the evening. ezetimibe 2022-0 Yes [id number] 10mg Take 1 U nivers 10 mg 6-16 tablet by ity of tablet 00:00: mouth in [place] 00 the Medical morning. Branch rosuvastati 2022-0 Yes [id number] 20mg Take 1 Univers n (CRESTOR) 6-16 tablet by ity of 20 mg 00:00: mouth at [place] tablet 00 bedtime. Medical Branch lisinopriL 2022-0 Yes [id number] 2.5mg Take 1 Univers 2.5 mg 6-16 tablet by ity of tablet 00:00: mouth in [place] 00 the Medical morning. Branch icosapent 2022-0 Yes [id number] 2g Take 2 U nivers ethyL 6-16 capsules ity of (VASCEPA) 1 00:00: by mouth [place] gram 00 in the Medical capsule morning Branch and 2 capsules in the evening. ezetimibe 3-0 Yes [id number] 10mg Take 1 U nivers 10 mg 6-16 tablet by ity of tablet 00:00: mouth in [place] 00 the Medical morning. Branch rosuvastati 2022-0 Yes [id number] 20mg Take 1 Univers n (CRESTOR) 6-16 tablet by ity of 20 mg 00:00: mouth at [place] tablet 00 bedtime. Medical Branch lisinopriL 2022-0 Yes [id number] 2.5mg Take 1 Univers 2.5 mg 6-16 tablet by ity of tablet 00:00: mouth in [place] 00 the Medical morning. Branch icosapent 2022-0 Yes [id number] 2g Take 2 U nivers ethyL 6-16 capsules ity of (VASCEPA) 1 00:00: by mouth [place] gram 00 in the Medical capsule morning Branch and 2 capsules in the evening. ezetimibe 2022-0 Yes [id number] 10mg Take 1 U nivers 10 mg 6-16 tablet by ity of tablet 00:00: mouth in [place] 00 the Medical morning. Branch rosuvastati 2022-0 Yes [id number] 20mg Take 1 Univers n (CRESTOR) 6-16 tablet by ity of 20 mg 00:00: mouth at [place] tablet 00 bedtime. Medical Branch lisinopriL 2022-0 Yes [id number] 2.5mg Take 1 Univers 2.5 mg 6-16 tablet by ity of tablet 00:00: mouth in [place] 00 the Medical morning. Branch icosapent 2022-0 Yes [id number] 2g Take 2 U nivers ethyL 6-16 capsules ity of (VASCEPA) 1 00:00: by mouth [place] gram 00 in the Medical capsule morning Branch and 2 capsules in the evening. ezetimibe 2022-0 Yes [id number] 10mg Take 1 U nivers 10 mg 6-16 tablet by ity of tablet 00:00: mouth in [place] 00 the Medical morning. Branch rosuvastati 2022-0 Yes [id number] 20mg Take 1 Univers n (CRESTOR) 6-16 tablet by ity of 20 mg 00:00: mouth at [place] tablet 00 bedtime. Medical Branch lisinopriL 2022-0 Yes [id number] 2.5mg Take 1 Univers 2.5 mg 6-16 tablet by ity of tablet 00:00: mouth in [place] 00 the Medical morning. Branch icosapent 2022-0 Yes [id number] 2g Take 2 U nivers ethyL 6-16 capsules ity of (VASCEPA) 1 00:00: by mouth [place] gram 00 in the Medical capsule morning Branch and 2 capsules in the evening. ezetimibe 2022-0 Yes [id number] 10mg Take 1 U nivers 10 mg 6-16 tablet by ity of tablet 00:00: mouth in [place] 00 the Medical morning. Branch rosuvastati 2022-0 Yes [id number] 20mg Take 1 Univers n (CRESTOR) 6-16 tablet by ity of 20 mg 00:00: mouth at [place] tablet 00 bedtime. Medical Branch lisinopriL 2022-0 Yes [id number] 2.5mg Take 1 Univers 2.5 mg 6-16 tablet by ity of tablet 00:00: mouth in [place] 00 the Medical morning. Branch icosapent 2022-0 Yes [id number] 2g Take 2 U nivers ethyL 6-14 capsules ity of (VASCEPA) 1 00:00: by mouth [place] gram 00 in the Medical capsule morning Branch and 2 capsules in the evening. icosapent 0 2022- No [id number] 2g Take 2 Univers ethyL 6-14 06-16 capsules ity of (VASCEPA) 1 00:00: 00:00 by mouth [place] gram 00 :00 in the Medical capsule morning Branch and 2 capsules in the evening. icosapent 0 2022- No [id number] 2g Take 2 Univers ethyL 6-14 06-16 capsules ity of (VASCEPA) 1 00:00: 00:00 by mouth [place] gram 00 :00 in the Medical capsule morning Branch and 2 capsules in the evening. ezetimibe 2022-0 Yes [id number] 10mg Take 1 U nivers 10 mg 5-22 tablet by ity of tablet 00:00: mouth in [place] 00 the Medical morning. Branch ezetimibe 2022-0 Yes [id number] 10mg Take 1 U nivers 10 mg 5-22 tablet by ity of tablet 00:00: mouth in [place] 00 the Medical morning. Branch ezetimibe 2022-0 2022- No [id number] 10mg Take 1 Univers 10 mg 5-22 06-16 tablet by ity of tablet 00:00: 00:00 mouth in [place] 00 :00 the Medical morning. Branch ezetimibe 2022- No [id number] 10mg Take 1 Univers 10 mg 5-22 06-16 tablet by ity of tablet 00:00: 00:00 mouth in [place] 00 :00 the Medical morning. Branch icosapent Yes [id number] 2g Take 2 U nivers ethyL 4-14 capsules ity of (VASCEPA) 1 00:00: by mouth [place] gram 00 in the Medical capsule morning Branch and 2 capsules in the evening. icosapent Yes [id number] 2g Take 2 U nivers ethyL 4-14 capsules ity of (VASCEPA) 1 00:00: by mouth [place] gram 00 in the Medical capsule morning Branch and 2 capsules in the evening. icosapent Yes [id number] 2g Take 2 U nivers ethyL 4-14 capsules ity of (VASCEPA) 1 00:00: by mouth [place] gram 00 in the Medical capsule morning Branch and 2 capsules in the evening. icosapent 2022- No [id number] 2g Take 2 Univers ethyL 4-14 06-14 capsules ity of (VASCEPA) 1 00:00: 00:00 by mouth [place] gram 00 :00 in the Medical capsule morning Branch and 2 capsules in the evening. rosuvastati Yes [id number] 20mg Take 1 Univers n (CRESTOR) 4-03 tablet by ity of 20 mg 00:00: mouth at [place] tablet 00 bedtime. [facility] Branch rosuvastati Yes [id number] 20mg Take 1 Univers n (CRESTOR) 4-03 tablet by ity of 20 mg 00:00: mouth at [place] tablet 00 bedtime. [facility] Branch rosuvastati Yes [id number] 20mg Take 1 Univers n (CRESTOR) 4-03 tablet by ity of 20 mg 00:00: mouth at [place] tablet 00 bedtime. [facility] Branch rosuvastati Yes [id number] 20mg Take 1 Univers n (CRESTOR) 4-03 tablet by ity of 20 mg 00:00: mouth at [place] tablet 00 bedtime. [facility] Branch rosuvastati Yes [id number] 20mg Take 1 Univers n (CRESTOR) 4-03 tablet by ity of 20 mg 00:00: mouth at [place] tablet 00 bedtime. Medical Branch rosuvastati 2022-0 2022- No [id number] 20mg Take 1 Univers n (CRESTOR) 4-03 06-16 tablet by it y of 20 mg 00:00: 00:00 mouth at [place] tablet 00 :00 bedtime. Medical Branch rosuvastati 2022-0 2022- No [id number] 20mg Take 1 Univers n (CRESTOR) 4-03 06-16 tablet by it y of 20 mg 00:00: 00:00 mouth at [place] tablet 00 :00 bedtime. Medical Branch lisinopriL 2022-0 Yes [id number] 2.5mg Take 1 Univers 2.5 mg 1-10 tablet by ity of tablet 00:00: mouth in [place] 00 the Medical morning. Branch lisinopriL 2022-0 Yes [id number] 2.5mg Take 1 Univers 2.5 mg 1-10 tablet by ity of tablet 00:00: mouth in [place] 00 the Medical morning. Branch lisinopriL 2022-0 Yes [id number] 2.5mg Take 1 Univers 2.5 mg 1-10 tablet by ity of tablet 00:00: mouth in [place] 00 the Medical morning. Branch lisinopriL 2022-0 Yes [id number] 2.5mg Take 1 Univers 2.5 mg 1-10 tablet by ity of tablet 00:00: mouth in [place] 00 the Medical morning. Branch lisinopriL 2022-0 Yes [id number] 2.5mg Take 1 Univers 2.5 mg 1-10 tablet by ity of tablet 00:00: mouth in [place] 00 the Medical morning. Branch lisinopriL 2022-0 Yes [id number] 2.5mg Take 1 Univers 2.5 mg 1-10 tablet by ity of tablet 00:00: mouth in [place] 00 the Medical morning. Branch lisinopriL 3-0 3- No [id number] 2.5mg Take 1 Univers 2.5 mg 1-10 06-16 tablet by ity of tablet 00:00: 00:00 mouth in [place] 00 :00 the Medical morning. Branch lisinopriL 2022-0 3- No [id number] 2.5mg Take 1 Univers 2.5 mg 1-10 06-16 tablet by ity of tablet 00:00: 00:00 mouth in [place] 00 :00 the Medical morning. Branch metformin 2021-10 Yes [id number] 750mg Take 1 Univers ER 750 mg 2-30 tablet by ity o f 24 hr 00:00: mouth [place] tablet 00 daily with Medical breakfast. Branch glipiZIDE 2021-10 Yes [id number] 20mg Take 2 [facility] n[facility] XL 10 mg 24 2-30 tablets by it y of hr tablet 00:00: mouth [place] 00 daily with Medical breakfast. Branch metformin 2021-10 Yes [id number] 750mg Take 1 [facility] ER 750 mg 2-30 tablet by ity o f 24 hr 00:00: mouth [place] tablet 00 daily with Medical breakfast. Branch glipiZIDE 2021-10 Yes [id number] 20mg Take 2 [facility] XL 10 mg 24 2-30 tablets by it y of hr tablet 00:00: mouth [place] 00 daily with Medical breakfast. Branch metformin 2021-10 Yes [id number] 750mg Take 1 [facility] ER 750 mg 2-30 tablet by ity o f 24 hr 00:00: mouth [place] tablet 00 daily with Medical breakfast. Branch glipiZIDE 2021-10 Yes [id number] 20mg Take 2 [facility] XL 10 mg 24 2-30 tablets by it y of hr tablet 00:00: mouth [place] 00 daily with Medical breakfast. Branch metformin 2021-10 Yes [id number] 750mg Take 1 [facility] ER 750 mg 2-30 tablet by ity o f 24 hr 00:00: mouth [place] tablet 00 daily with Medical breakfast. Branch glipiZIDE 2021-10 Yes [id number] 20mg Take 2 [facility] XL 10 mg 24 2-30 tablets by it y of hr tablet 00:00: mouth [place] 00 daily with Medical breakfast. Branch metformin 2021-10 Yes [id number] 750mg Take 1 [facility] ER 750 mg 2-30 tablet by ity o f 24 hr 00:00: mouth [place] tablet 00 daily with Medical breakfast. Branch glipiZIDE 2021-10 Yes [id number] 20mg Take 2 [facility] XL 10 mg 24 2-30 tablets by it y of hr tablet 00:00: mouth [place] 00 daily with Medical breakfast. Branch metformin 2021-10 Yes [id number] 750mg Take 1 [facility] ER 750 mg 2-30 tablet by ity o f 24 hr 00:00: mouth [place] tablet 00 daily with Medical breakfast. Branch glipiZIDE 2021-10 Yes [id number] 20mg Take 2 [facility] XL 10 mg 24 2-30 tablets by it y of hr tablet 00:00: mouth [place] 00 daily with Medical breakfast. Branch metformin 2021-10 Yes [id number] 750mg Take 1 [facility] ER 750 mg 2-30 tablet by ity o f 24 hr 00:00: mouth [place] tablet 00 daily with Medical breakfast. Branch glipiZIDE 2021-10 Yes [id number] 20mg Take 2 [facility] XL 10 mg 24 2-30 tablets by it y of hr tablet 00:00: mouth [place] 00 daily with Medical breakfast. Branch metformin 2021-10 Yes [id number] 750mg Take 1 [facility] ER 750 mg 2-30 tablet by ity o f 24 hr 00:00: mouth [place] tablet 00 daily with Medical breakfast. Branch glipiZIDE 2021-10 Yes [id number] 20mg Take 2 [facility] XL 10 mg 24 2-30 tablets by it y of hr tablet 00:00: mouth [place] 00 daily with Medical breakfast. Branch metformin 2021-10 Yes [id number] 750mg Take 1 [facility] ER 750 mg 2-30 tablet by ity o f 24 hr 00:00: mouth [place] tablet 00 daily with Medical breakfast. Branch glipiZIDE 2021-10 Yes [id number] 20mg Take 2 [facility] XL 10 mg 24 2-30 tablets by it y of hr tablet 00:00: mouth [place] 00 daily with Medical breakfast. Branch metformin 2021-10 Yes [id number] 750mg Take 1 [facility] ER 750 mg 2-30 tablet by ity o f 24 hr 00:00: mouth [place] tablet 00 daily with Medical breakfast. Branch glipiZIDE 2021-10 Yes [id number] 20mg Take 2 [facility] XL 10 mg 24 2-30 tablets by it y of hr tablet 00:00: mouth [place] 00 daily with Medical breakfast. Branch metformin 2021-10 Yes [id number] 750mg Take 1 [facility] ER 750 mg 2-30 tablet by ity o f 24 hr 00:00: mouth [place] tablet 00 daily with Medical breakfast. Branch glipiZIDE 2021-10 Yes [id number] 20mg Take 2 [facility] XL 10 mg 24 2-30 tablets by it y of hr tablet 00:00: mouth [place] 00 daily with Medical breakfast. Branch metformin 2021-10 Yes [id number] 750mg Take 1 [facility] ER 750 mg 2-30 tablet by ity o f 24 hr 00:00: mouth [place] tablet 00 daily with Medical breakfast. Branch glipiZIDE 2021-10 Yes [id number] 20mg Take 2 [facility] XL 10 mg 24 2-30 tablets by it y of hr tablet 00:00: mouth [place] 00 daily with Medical breakfast. Branch metformin 2021-10 Yes [id number] 750mg Take 1 [facility] ER 750 mg 2-30 tablet by ity o f 24 hr 00:00: mouth [place] tablet 00 daily with Medical breakfast. Branch glipiZIDE 2021-10 Yes [id number] 20mg Take 2 [facility] XL 10 mg 24 2-30 tablets by it y of hr tablet 00:00: mouth [place] 00 daily with Medical breakfast. Branch metformin 2021-10 Yes [id number] 750mg Take 1 [facility] ER 750 mg 2-30 tablet by ity o f 24 hr 00:00: mouth [place] tablet 00 daily with Medical breakfast. Branch glipiZIDE 2021-10 Yes [id number] 20mg Take 2 [facility] XL 10 mg 24 2-30 tablets by it y of hr tablet 00:00: mouth [place] 00 daily with Medical breakfast. Branch metformin 2021-10 Yes [id number] 750mg Take 1 [facility] ER 750 mg 2-30 tablet by ity o f 24 hr 00:00: mouth [place] tablet 00 daily with Medical breakfast. Branch glipiZIDE 2021-10 Yes [id number] 20mg Take 2 [facility] XL 10 mg 24 2-30 tablets by it y of hr tablet 00:00: mouth [place] 00 daily with Medical breakfast. Branch metformin 2021-10 Yes [id number] 750mg Take 1 [facility] ER 750 mg 2-30 tablet by ity o f 24 hr 00:00: mouth [place] tablet 00 daily with Medical breakfast. Branch glipiZIDE 2021-10 Yes [id number] 20mg Take 2 [facility] XL 10 mg 24 2-30 tablets by it y of hr tablet 00:00: mouth [place] 00 daily with Medical breakfast. Branch metformin 2021-10 Yes [id number] 750mg Take 1 [facility] ER 750 mg 2-30 tablet by ity o f 24 hr 00:00: mouth [place] tablet 00 daily with Medical breakfast. Branch glipiZIDE 2021-10 Yes [id number] 20mg Take 2 [facility] XL 10 mg 24 2-30 tablets by it y of hr tablet 00:00: mouth [place] 00 daily with Medical breakfast. Branch metformin 2021-10 Yes [id number] 750mg Take 1 [facility] ER 750 mg 2-30 tablet by ity o f 24 hr 00:00: mouth [place] tablet 00 daily with Medical breakfast. Branch glipiZIDE 2021-10 Yes [id number] 20mg Take 2 [facility] XL 10 mg 24 2-30 tablets by it y of hr tablet 00:00: mouth [place] 00 daily with Medical breakfast. Branch metformin 2021-10 Yes [id number] 750mg Take 1 [facility] ER 750 mg 2-30 tablet by ity o f 24 hr 00:00: mouth [place] tablet 00 daily with Medical breakfast. Branch glipiZIDE 2021-10 Yes [id number] 20mg Take 2 [facility] XL 10 mg 24 2-30 tablets by it y of hr tablet 00:00: mouth [place] 00 daily with Medical breakfast. [place] metformin 2021-10 Yes [id number] 750mg Take 1 [facility] ER 750 mg 2-30 tablet by ity o f 24 hr 00:00: mouth [place] tablet 00 daily with Medical breakfast. [place] glipiZIDE 2021-10 Yes [id number] 20mg Take 2 [facility] XL 10 mg 24 2-30 tablets by it y of hr tablet 00:00: mouth [place] 00 daily with Medical breakfast. [place] metformin 2021-10 Yes [id number] 750mg Take 1 [facility] ER 750 mg 2-30 tablet by ity o f 24 hr 00:00: mouth [place] tablet 00 daily with Medical breakfast. Branch glipiZIDE 2021-10 Yes [id number] 20mg Take 2 [facility] XL 10 mg 24 2-30 tablets by it y of hr tablet 00:00: mouth [place] 00 daily with Medical breakfast. [place] metformin 2021-10 Yes [id number] 750mg Take 1 [facility] ER 750 mg 2-30 tablet by ity o f 24 hr 00:00: mouth [place] tablet 00 daily with Medical breakfast. [place] glipiZIDE 2021-10 Yes [id number] 20mg Take 2 [facility] XL 10 mg 24 2-30 tablets by it y of hr tablet 00:00: mouth [place] 00 daily with Medical breakfast. [place] metformin 2021-10 Yes [id number] 750mg Take 1 [facility] ER 750 mg 2-30 tablet by ity o f 24 hr 00:00: mouth [place] tablet 00 daily with Medical breakfast. Branch metformin 2021-10 Yes [id number] 750mg Take 1 [facility] ER 750 mg 2-30 tablet by ity o f 24 hr 00:00: mouth [place] tablet 00 daily with Medical breakfast. Branch metformin 2021-10 Yes [id number] 750mg Take 1 [facility] 750 mg 2-30 tablet by ity o f 24 hr 00:00: mouth [place] tablet 00 daily with Medical breakfast. [place] glipiZIDE 2021-10- No [id number] 20mg Take 2 [facility] XL 10 mg 24 2-30 07-14 tablets by i ty of hr tablet 00:00: 00:00 mouth [place] 00 :00 daily with Medical breakfast. [place] glipiZIDE 2021-10- No [id number] 20mg Take 2 [facility] XL 10 mg 24 2-30 07-14 tablets by i ty of hr tablet 00:00: 00:00 mouth [place] 00 :00 daily with Medical breakfast. [place] LISINOPRIL 2021-10 Yes [id number] TAKE 1 [facility] 2.5 mg 0-13 TABLET BY ity of tablet 00:00: MOUTH [place] 00 EVERY DAY Medical [place] LISINOPRIL 2021-10 Yes [id number] TAKE 1 [facility] 2.5 mg 0-13 TABLET BY ity of tablet 00:00: MOUTH [place] 00 EVERY DAY Medical [place] LISINOPRIL 2021-10 Yes [id number] TAKE 1 [facility] 2.5 mg 0-13 TABLET BY ity of tablet 00:00: MOUTH [place] 00 EVERY DAY Medical Branch LISINOPRIL 2021-10 Yes [id number] TAKE 1 [facility] 2.5 mg 0-13 TABLET BY ity of tablet 00:00: MOUTH [place] 00 EVERY DAY Medical Branch LISINOPRIL 2021-10 Yes [id number] TAKE 1 [facility] 2.5 mg 0-13 TABLET BY ity of tablet 00:00: MOUTH [place] 00 EVERY DAY Medical Branch LISINOPRIL 2021-10 Yes [id number] TAKE 1 [facility] 2.5 mg 0-13 TABLET BY ity of tablet 00:00: MOUTH [place] 00 EVERY DAY Medical Branch LISINOPRIL 2021-10 Yes [id number] TAKE 1 [facility] 2.5 mg 0-13 TABLET BY ity of tablet 00:00: MOUTH [place] 00 EVERY DAY Medical Branch LISINOPRIL 2021-10 Yes [id number] TAKE 1 [facility] 2.5 mg 0-13 TABLET BY ity of tablet 00:00: MOUTH [place] 00 EVERY DAY Medical Branch LISINOPRIL 2021-10- No [id number] TAKE 1 [facility] 2.5 mg 0-13 01-10 TABLET BY ity of tablet 00:00: 00:00 MOUTH [place] 00 :00 EVERY DAY Medical Branch LISINOPRIL 2021-10- No [id number] TAKE 1 [facility] 2.5 mg 0-13 01-10 TABLET BY ity of tablet 00:00: 00:00 MOUTH [place] 00 :00 EVERY DAY Medical Branch LISINOPRIL 2021-10- No [id number] TAKE 1 [facility] 2.5 mg 0-13 01-10 TABLET BY ity of tablet 00:00: 00:00 MOUTH [place] 00 :00 EVERY DAY Medical Branch rosuvastati 0 Yes [id number] 20mg Take 1 [facility] n (CRESTOR) 9-27 tablet by ity of 20 mg 00:00: mouth at [place] tablet 00 bedtime. Medical Branch ezetimibe 0 Yes [id number] 10mg Take 1 [facility] 10 mg 9-27 tablet by ity of tablet 00:00: mouth in [place] 00 the Medical morning. Branch rosuvastati 0 Yes [id number] 20mg Take 1 [facility] n (CRESTOR) 9-27 tablet by ity of 20 mg 00:00: mouth at [place] tablet 00 bedtime. Medical Branch ezetimibe 0 Yes [id number] 10mg Take 1 [facility] nivers 10 mg 9-27 tablet by ity of tablet 00:00: mouth in [place] 00 the Medical morning. Branch rosuvastati 0 Yes [id number] 20mg Take 1 [facility] n (CRESTOR) 9-27 tablet by ity of 20 mg 00:00: mouth at [place] tablet 00 bedtime. Medical Branch ezetimibe 0 Yes [id number] 10mg Take 1 [facility] n[facility] 10 mg 9-27 tablet by ity of tablet 00:00: mouth in [place] 00 the Medical morning. Branch rosuvastati 0 Yes [id number] 20mg Take 1 [facility] n (CRESTOR) 9-27 tablet by ity of 20 mg 00:00: mouth at [place] tablet 00 bedtime. Medical Branch ezetimibe 2021-0 Yes [id number] 10mg Take 1 [facility] n[facility] 10 mg 9-27 tablet by ity of tablet 00:00: mouth in [place] 00 the Medical morning. Branch rosuvastati 2021-0 Yes [id number] 20mg Take 1 [facility] n (CRESTOR) 9-27 tablet by ity of 20 mg 00:00: mouth at [place] tablet 00 bedtime. Medical Branch ezetimibe 0 Yes [id number] 10mg Take 1 [facility] n[facility] 10 mg 9-27 tablet by ity of tablet 00:00: mouth in [place] 00 the Medical morning. Branch rosuvastati 2021-0 Yes [id number] 20mg Take 1 [facility] n (CRESTOR) 9-27 tablet by ity of 20 mg 00:00: mouth at [place] tablet 00 bedtime. Medical Branch ezetimibe 0 Yes [id number] 10mg Take 1 [facility] 10 mg 9-27 tablet by ity of tablet 00:00: mouth in [place] 00 the Medical morning. Branch rosuvastati 2021-0 Yes [id number] 20mg Take 1 [facility] n (CRESTOR) 9-27 tablet by ity of 20 mg 00:00: mouth at [place] tablet 00 bedtime. Medical Branch ezetimibe 0 Yes [id number] 10mg Take 1 [facility] 10 mg 9-27 tablet by ity of tablet 00:00: mouth in [place] 00 the Medical morning. Branch rosuvastati 2021-0 Yes [id number] 20mg Take 1 [facility] n (CRESTOR) 9-27 tablet by ity of 20 mg 00:00: mouth at [place] tablet 00 bedtime. Medical Branch ezetimibe 2021-0 Yes [id number] 10mg Take 1 [facility] 10 mg 9-27 tablet by ity of tablet 00:00: mouth in [place] 00 the Medical morning. Branch rosuvastati 2021-0 Yes [id number] 20mg Take 1 [facility] n (CRESTOR) 9-27 tablet by ity of 20 mg 00:00: mouth at [place] tablet 00 bedtime. Medical Branch ezetimibe 2021-0 Yes [id number] 10mg Take 1 [facility] 10 mg 9-27 tablet by ity of tablet 00:00: mouth in [place] 00 the Medical morning. Branch rosuvastati 2021-0 Yes [id number] 20mg Take 1 [facility] n (CRESTOR) 9-27 tablet by ity of 20 mg 00:00: mouth at [place] tablet 00 bedtime. Medical Branch ezetimibe 2021-0 Yes [id number] 10mg Take 1 [facility] 10 mg 9-27 tablet by ity of tablet 00:00: mouth in [place] 00 the Medical morning. Branch rosuvastati 0 Yes [id number] 20mg Take 1 [facility] n (CRESTOR) 9-27 tablet by ity of 20 mg 00:00: mouth at [place] tablet 00 bedtime. Medical Branch ezetimibe 0 Yes [id number] 10mg Take 1 [facility] n[facility] 10 mg 9-27 tablet by ity of tablet 00:00: mouth in [place] 00 the Medical morning. Branch rosuvastati 0 Yes [id number] 20mg Take 1 [facility] n (CRESTOR) 9-27 tablet by ity of 20 mg 00:00: mouth at [place] tablet 00 bedtime. Medical Branch ezetimibe 0 Yes [id number] 10mg Take 1 [facility] 10 mg 9-27 tablet by ity of tablet 00:00: mouth in [place] 00 the Medical morning. Branch rosuvastati 0 Yes [id number] 20mg Take 1 [facility] n (CRESTOR) 9-27 tablet by ity of 20 mg 00:00: mouth at [place] tablet 00 bedtime. Medical Branch ezetimibe 0 Yes [id number] 10mg Take 1 [facility] 10 mg 9-27 tablet by ity of tablet 00:00: mouth in [place] 00 the Medical morning. Branch rosuvastati 2021-0 Yes [id number] 20mg Take 1 [facility] n (CRESTOR) 9-27 tablet by ity of 20 mg 00:00: mouth at [place] tablet 00 bedtime. Medical Branch ezetimibe 0 Yes [id number] 10mg Take 1 [facility] 10 mg 9-27 tablet by ity of tablet 00:00: mouth in [place] 00 the Medical morning. Branch ezetimibe 2021-0 Yes [id number] 10mg Take 1 [facility] 10 mg 9-27 tablet by ity of tablet 00:00: mouth in [place] 00 the Medical morning. Branch ezetimibe Yes [id number] 10mg Take 1 [facility] 10 mg 9-27 tablet by ity of tablet 00:00: mouth in [place] 00 the Medical morning. Branch ezetimibe Yes [id number] 10mg Take 1 [facility] 10 mg 9-27 tablet by ity of tablet 00:00: mouth in [place] 00 the Medical morning. Branch ezetimibe 2022- No [id number] 10mg Take 1 [facility] 10 mg 9-27 05-22 tablet by ity of tablet 00:00: 00:00 mouth in [place] 00 :00 the Medical morning. [place] rosuvastati 2022- No [id number] 20mg Take 1 [facility] n (CRESTOR) 9-27 04-03 tablet by it y of 20 mg 00:00: 00:00 mouth at [place] tablet 00 :00 bedtime. [facility] Branch icosapent 2021- No [id number] 2g Take 2 [facility] ethyL 9-14 10-15 capsules ity of (VASCEPA) 1 00:00: 04:59 by mouth [place] gram 00 :00 in the Medical capsule morning Branch and 2 capsules in the evening. Do all this for 30 days. icosapent No [id number] 2g Take 2 [facility] ethyL 9-14 10-15 capsules ity of (VASCEPA) 1 00:00: 04:59 by mouth [place] gram 00 :00 in the Medical capsule morning Branch and 2 capsules in the evening. Do all this for 30 days. icosapent 2021- No [id number] 2g Take 2 [facility] ethyL 9-14 10-15 capsules ity of (VASCEPA) 1 00:00: 04:59 by mouth [place] gram 00 :00 in the Medical capsule morning Branch and 2 capsules in the evening. Do all this for 30 days. icosapent 2021- No [id number] 2g Take 2 [facility] ethyL 9-14 10-15 capsules ity of (VASCEPA) 1 00:00: 04:59 by mouth [place] gram 00 :00 in the Medical capsule morning Branch and 2 capsules in the evening. Do all this for 30 days. icosapent 0 2021- No [id number] 2g Take 2 [facility] ethyL 9-14 10-15 capsules ity of (VASCEPA) 1 00:00: 04:59 by mouth [place] gram 00 :00 in the Medical capsule morning Branch and 2 capsules in the evening. Do all this for 30 days. semaglutide 0 Yes [id number] .5mg inject 0.5 [facility] (OZEMPIC) 9-12 mg under ity of 0.25 mg or 00:00: the skin [place] 0.5 mg(2 00 weekly. Medical mg/1.5 mL) Start 0.25 Bra nch PnIj mg weekly for 4 weeks, then 0.5 mg thereafter glipiZIDE 0 Yes [id number] 10mg Take 1 [facility] n[facility] XL 10 mg 24 9-12 tablet by ity of hr tablet 00:00: mouth [place] 00 daily with Medical breakfast. Branch metformin 0 Yes [id number] 750mg Take 1 [facility] ER 750 mg 9-12 tablet by ity o f 24 hr 00:00: mouth [place] tablet 00 daily with Medical breakfast. Branch semaglutide Yes [id number] .5mg inject 0.5 [facility] (OZEMPIC) 9-12 mg under ity of 0.25 mg or 00:00: the [place] 0.5 mg(2 00 weekly. Medical mg/1.5 mL) Start 0.25 Bra nch PnIj mg weekly for 4 weeks, then 0.5 mg thereafter glipiZIDE 0 Yes [id number] 10mg Take 1 [facility] n[facility] XL 10 mg 24 9-12 tablet by ity of hr tablet 00:00: mouth [place] 00 daily with Medical breakfast. Branch metformin 2021-0 Yes [id number] 750mg Take 1 [facility] ER 750 mg 9-12 tablet by ity o f 24 hr 00:00: mouth [place] tablet 00 daily with Medical breakfast. Branch semaglutide 0 Yes [id number] .5mg inject 0.5 [facility] (OZEMPIC) 9-12 mg under ity of 0.25 mg or 00:00: the [place] 0.5 mg(2 00 weekly. Medical mg/1.5 mL) Start 0.25 Bra nch PnIj mg weekly for 4 weeks, then 0.5 mg thereafter glipiZIDE 2021-0 Yes [id number] 10mg Take 1 [facility] XL 10 mg 24 9-12 tablet by ity of hr tablet 00:00: mouth [place] 00 daily with Medical breakfast. Branch metformin 2021-0 Yes [id number] 750mg Take 1 [facility] ER 750 mg 9-12 tablet by ity o f 24 hr 00:00: mouth [place] tablet 00 daily with Medical breakfast. Branch semaglutide 2021-0 Yes [id number] .5mg inject 0.5 [facility] (OZEMPIC) 9-12 mg under ity of 0.25 mg or 00:00: the [place] 0.5 mg(2 00 weekly. Medical mg/1.5 mL) Start 0.25 Bra nch PnIj mg weekly for 4 weeks, then 0.5 mg thereafter glipiZIDE 2021-0 Yes [id number] 10mg Take 1 [facility] XL 10 mg 24 9-12 tablet by ity of hr tablet 00:00: mouth [place] 00 daily with Medical breakfast. Branch metformin 2021-0 Yes [id number] 750mg Take 1 [facility] ER 750 mg 9-12 tablet by ity o f 24 hr 00:00: mouth [place] tablet 00 daily with Medical breakfast. Branch semaglutide 2021-0 Yes [id number] .5mg inject 0.5 [facility] (OZEMPIC) 9-12 mg under ity of 0.25 mg or 00:00: the [place] 0.5 mg(2 00 weekly. Medical mg/1.5 mL) Start 0.25 Bra nch PnIj mg weekly for 4 weeks, then 0.5 mg thereafter glipiZIDE 2021-0 Yes [id number] 10mg Take 1 [facility] XL 10 mg 24 9-12 tablet by ity of hr tablet 00:00: mouth [place] 00 daily with Medical breakfast. Branch metformin 2021-0 Yes [id number] 750mg Take 1 [facility] ER 750 mg 9-12 tablet by ity o f 24 hr 00:00: mouth [place] tablet 00 daily with Medical breakfast. Branch semaglutide 2021-0 Yes [id number] .5mg inject 0.5 [facility] (OZEMPIC) 9-12 mg under ity of 0.25 mg or 00:00: the [place] 0.5 mg(2 00 weekly. Medical mg/1.5 mL) Start 0.25 Bra nch PnIj mg weekly for 4 weeks, then 0.5 mg thereafter glipiZIDE 2021-0 Yes [id number] 10mg Take 1 [facility] XL 10 mg 24 9-12 tablet by ity of hr tablet 00:00: mouth [place] 00 daily with Medical breakfast. Branch metformin 2021-0 Yes [id number] 750mg Take 1 [facility] ER 750 mg 9-12 tablet by ity o f 24 hr 00:00: mouth [place] tablet 00 daily with Medical breakfast. Branch semaglutide 2021-0 Yes [id number] .5mg inject 0.5 [facility] (OZEMPIC) 9-12 mg under ity of 0.25 mg or 00:00: the [place] 0.5 mg(2 00 weekly. Medical mg/1.5 mL) Start 0.25 Bra nch PnIj mg weekly for 4 weeks, then 0.5 mg thereafter glipiZIDE 2021-0 Yes [id number] 10mg Take 1 [facility] XL 10 mg 24 9-12 tablet by ity of hr tablet 00:00: mouth [place] 00 daily with Medical breakfast. Branch metformin 2021-0 Yes [id number] 750mg Take 1 [facility] ER 750 mg 9-12 tablet by ity o f 24 hr 00:00: mouth [place] tablet 00 daily with Medical breakfast. Branch semaglutide 2021-0 Yes [id number] .5mg inject 0.5 [facility] (OZEMPIC) 9-12 mg under ity of 0.25 mg or 00:00: the [place] 0.5 mg(2 00 weekly. Medical mg/1.5 mL) Start 0.25 Bra nch PnIj mg weekly for 4 weeks, then 0.5 mg thereafter glipiZIDE 2021-0 Yes [id number] 10mg Take 1 [facility] XL 10 mg 24 9-12 tablet by ity of hr tablet 00:00: mouth [place] 00 daily with Medical breakfast. Branch metformin 2021-0 Yes [id number] 750mg Take 1 [facility] ER 750 mg 9-12 tablet by ity o f 24 hr 00:00: mouth [place] tablet 00 daily with Medical breakfast. Branch semaglutide 2021-0 Yes [id number] .5mg inject 0.5 [facility] (OZEMPIC) 9-12 mg under ity of 0.25 mg or 00:00: the [place] 0.5 mg(2 00 weekly. Medical mg/1.5 mL) Start 0.25 Bra nch PnIj mg weekly for 4 weeks, then 0.5 mg thereafter glipiZIDE 2021-0 Yes [id number] 10mg Take 1 [facility] XL 10 mg 24 9-12 tablet by ity of hr tablet 00:00: mouth [place] 00 daily with Medical breakfast. Branch metformin 2021-0 Yes [id number] 750mg Take 1 [facility] ER 750 mg 9-12 tablet by ity o f 24 hr 00:00: mouth [place] tablet 00 daily with Medical breakfast. Branch semaglutide 2021-0 Yes [id number] .5mg inject 0.5 [facility] (OZEMPIC) 9-12 mg under ity of 0.25 mg or 00:00: the [place] 0.5 mg(2 00 weekly. Medical mg/1.5 mL) Start 0.25 Bra nch PnIj mg weekly for 4 weeks, then 0.5 mg thereafter glipiZIDE 0 Yes [id number] 10mg Take 1 [facility] XL 10 mg 24 9-12 tablet by ity of hr tablet 00:00: mouth [place] 00 daily with Medical breakfast. Branch metformin 2021-0 Yes [id number] 750mg Take 1 [facility] ER 750 mg 9-12 tablet by ity o f 24 hr 00:00: mouth [place] tablet 00 daily with Medical breakfast. Branch semaglutide 2021-0 Yes [id number] .5mg inject 0.5 [facility] (OZEMPIC) 9-12 mg under ity of 0.25 mg or 00:00: the [place] 0.5 mg(2 00 weekly. Medical mg/1.5 mL) Start 0.25 Bra nch PnIj mg weekly for 4 weeks, then 0.5 mg thereafter glipiZIDE 2021-0 Yes [id number] 10mg Take 1 [facility] nivers XL 10 mg 24 9-12 tablet by ity of hr tablet 00:00: mouth [place] 00 daily with Medical breakfast. Branch metformin 2021-0 Yes [id number] 750mg Take 1 [facility] ER 750 mg 9-12 tablet by ity o f 24 hr 00:00: mouth [place] tablet 00 daily with Medical breakfast. Branch semaglutide 2021-0 Yes [id number] .5mg inject 0.5 [facility] (OZEMPIC) 9-12 mg under ity of 0.25 mg or 00:00: the [place] 0.5 mg(2 00 weekly. Medical mg/1.5 mL) Start 0.25 Bra nch PnIj mg weekly for 4 weeks, then 0.5 mg thereafter glipiZIDE 2021-0 Yes [id number] 10mg Take 1 U nivers XL 10 mg 24 9-12 tablet by ity of hr tablet 00:00: mouth [place] 00 daily with Medical breakfast. Branch metformin 2021-0 Yes [id number] 750mg Take 1 [facility] ER 750 mg 9-12 tablet by ity o f 24 hr 00:00: mouth [place] tablet 00 daily with Medical breakfast. Branch semaglutide 2021-0 Yes [id number] .5mg inject 0.5 [facility] (OZEMPIC) 9-12 mg under ity of 0.25 mg or 00:00: the [place] 0.5 mg(2 00 weekly. Medical mg/1.5 mL) Start 0.25 Bra nch PnIj mg weekly for 4 weeks, then 0.5 mg thereafter glipiZIDE 2021-0 Yes [id number] 10mg Take 1 [facility] nivers XL 10 mg 24 9-12 tablet by ity of hr tablet 00:00: mouth [place] 00 daily with Medical breakfast. Branch metformin 2021-0 Yes [id number] 750mg Take 1 [facility] ER 750 mg 9-12 tablet by ity o f 24 hr 00:00: mouth [place] tablet 00 daily with Medical breakfast. Branch semaglutide 2021-0 Yes [id number] .5mg inject 0.5 [facility] (OZEMPIC) 9-12 mg under ity of 0.25 mg or 00:00: the [place] 0.5 mg(2 00 weekly. Medical mg/1.5 mL) Start 0.25 Bra nch PnIj mg weekly for 4 weeks, then 0.5 mg thereafter semaglutide 2021-0 Yes [id number] .5mg inject 0.5 [facility] (OZEMPIC) 9-12 mg under ity of 0.25 mg or 00:00: the [place] 0.5 mg(2 00 weekly. Medical mg/1.5 mL) Start 0.25 Bra nch PnIj mg weekly for 4 weeks, then 0.5 mg thereafter semaglutide 2022-0 Yes [id number] .5mg inject 0.5 [facility] (OZEMPIC) 9-12 mg under ity of 0.25 mg or 00:00: the [place] 0.5 mg(2 00 weekly. Medical mg/1.5 mL) Start 0.25 Bra nch PnIj mg weekly for 4 weeks, then 0.5 mg thereafter semaglutide 2022-0 Yes [id number] .5mg inject 0.5 [facility] (OZEMPIC) 9-12 mg under ity of 0.25 mg or 00:00: the [place] 0.5 mg(2 00 weekly. Medical mg/1.5 mL) Start 0.25 Bra nch PnIj mg weekly for 4 weeks, then 0.5 mg thereafter semaglutide 2022-0 Yes [id number] .[id number] inject 0.5 [facility] (OZEMPIC) 9-12 mg under ity of 0.25 mg or 00:00: the [place] 0.5 mg(2 00 weekly. Medical mg/1.5 mL) Start 0.25 Bra nch PnIj mg weekly for 4 weeks, then 0.5 mg thereafter semaglutide 2022-0 Yes [id number] .5mg inject 0.5 [facility] (OZEMPIC) 9-12 mg under ity of 0.25 mg or 00:00: the [place] 0.5 mg(2 00 weekly. Medical mg/1.5 mL) Start 0.25 Bra nch PnIj mg weekly for 4 weeks, then 0.5 mg thereafter semaglutide 2022-0 Yes [id number] .5mg inject 0.5 [facility] (OZEMPIC) 9-12 mg under ity of 0.25 mg or 00:00: the [place] 0.5 mg(2 00 weekly. Medical mg/1.5 mL) Start 0.25 Bra nch PnIj mg weekly for 4 weeks, then 0.5 mg thereafter semaglutide 2022-0 Yes [id number] .5mg inject 0.5 [facility] (OZEMPIC) 9-12 mg under ity of 0.25 mg or 00:00: the [place] 0.5 mg(2 00 weekly. Medical mg/1.5 mL) Start 0.25 Bra nch PnIj mg weekly for 4 weeks, then 0.5 mg thereafter semaglutide Yes [id number] .5mg inject 0.5 [facility] (OZEMPIC) 9-12 mg under ity of 0.25 mg or 00:00: the skin [place] 0.5 mg(2 00 weekly. Medical mg/1.5 mL) Start 0.25 [facility] PnIj mg weekly for 4 weeks, then 0.5 mg thereafter semaglutide Yes [id number] .5mg inject 0.5 [facility] (OZEMPIC) 9-12 mg under ity of 0.25 mg or 00:00: the skin [place] 0.5 mg(2 00 weekly. Medical mg/1.5 mL) Start 0.25 [facility] PnIj mg weekly for 4 weeks, then 0.5 mg thereafter semaglutide 2022- No [id number] .5mg inject 0.5 [facility] (OZEMPIC) 9 06-16 mg under ity o f 0.25 mg or 00:00: 00:00 the skin [place] 0.5 mg(2 00 :00 weekly. Medical mg/1.5 mL) Start 0.25 [facility] PnIj mg weekly for 4 weeks, then 0.5 mg thereafter semaglutide 2022- No [id number] .5mg inject 0.5 [facility] (OZEMPIC) 9- 06-16 mg under ity o f 0.25 mg or 00:00: 00:00 the skin [place] 0.5 mg(2 00 :00 weekly. Medical mg/1.5 mL) Start 0.25 [facility] PnIj mg weekly for 4 weeks, then 0.5 mg thereafter glipiZIDE 2021- No [id number] 10mg Take 1 [facility] XL 10 mg 24 06-2030 tablet by it y of hr tablet 00:00: 00:00 mouth [place] 00 :00 daily with Medical breakfast. [place] metformin No [id number] 750mg Take 1 [facility] ER 750 mg 06-20-30 tablet by ity of 24 hr 00:00: 00:00 mouth [place] tablet 00 :00 daily with Medical breakfast. [place] glipiZIDE No [id number] 10mg Take 1 [facility] XL 10 mg 24 9 12-30 tablet by it y of hr tablet 00:00: 00:00 mouth [place] 00 :00 daily with Medical breakfast. Branch metformin 2021- No [id number] 750mg Take 1 [facility] ER 750 mg 9- 12-30 tablet by ity of 24 hr 00:00: 00:00 mouth [place] tablet 00 :00 daily with Medical breakfast. Branch clobetasoL 2022-0 Yes [id number] Apply to [facility] 0.05 % 8-05 area(s) 2 ity of ointment 00:00: (two) [place] 00 times Medical daily. Branch clobetasoL 2022-0 Yes [id number] Apply to [facility] 0.05 % 8-05 area(s) 2 ity of ointment 00:00: (two) [place] 00 times Medical daily. Branch clobetasoL 2022-0 Yes [id number] Apply to [facility] 0.05 % 8-05 area(s) 2 ity of ointment 00:00: (two) [place] 00 times Medical daily. Branch clobetasoL 2-0 Yes [id number] Apply to [facility] 0.05 % 8-05 area(s) 2 ity of ointment 00:00: (two) [place] 00 times Medical daily. Branch clobetasoL 2022-0 Yes [id number] Apply to [facility] 0.05 % 8-05 area(s) 2 ity of ointment 00:00: (two) [place] 00 times Medical daily. Branch clobetasoL 2022-0 Yes [id number] Apply to [facility] 0.05 % 8-05 area(s) 2 ity of ointment 00:00: (two) [place] 00 times Medical daily. Branch clobetasoL 2022-0 Yes [id number] Apply to [facility] 0.05 % 8-05 area(s) 2 ity of ointment 00:00: (two) [place] 00 times Medical daily. Branch clobetasoL 2022-0 Yes [id number] Apply to [facility] 0.05 % 8-05 area(s) 2 ity of ointment 00:00: (two) [place] 00 times Medical daily. Branch clobetasoL 2022-0 Yes [id number] Apply to [facility] 0.05 % 8-05 area(s) 2 ity of ointment 00:00: (two) [place] 00 times Medical daily. Branch clobetasoL 2022-0 Yes [id number] Apply to [facility] 0.05 % 8-05 area(s) 2 ity of ointment 00:00: (two) [place] 00 times Medical daily. Branch clobetasoL 2022-0 Yes [id number] Apply to [facility] 0.05 % 8-05 area(s) 2 ity of ointment 00:00: (two) [place] 00 times Medical daily. Branch clobetasoL 2022-0 Yes [id number] Apply to [facility] 0.05 % 8-05 area(s) 2 ity of ointment 00:00: (two) [place] 00 times Medical daily. Branch clobetasoL 2022-0 Yes [id number] Apply to [facility] 0.05 % 8-05 area(s) 2 ity of ointment 00:00: (two) [place] 00 times Medical daily. Branch clobetasoL 2022-0 Yes [id number] Apply to [facility] 0.05 % 8-05 area(s) 2 ity of ointment 00:00: (two) [place] 00 times Medical daily. Branch clobetasoL 2022-0 Yes [id number] Apply to [facility] 0.05 % 8-05 area(s) 2 ity of ointment 00:00: (two) [place] 00 times Medical daily. Branch clobetasoL 2022-0 Yes [id number] Apply to [facility] 0.05 % 8-05 area(s) 2 ity of ointment 00:00: (two) [place] 00 times Medical daily. Branch clobetasoL 2022-0 Yes [id number] Apply to [facility] 0.05 % 8-05 area(s) 2 ity of ointment 00:00: (two) [place] 00 times Medical daily. Branch clobetasoL 2022-0 Yes [id number] Apply to [facility] 0.05 % 8-05 area(s) 2 ity of ointment 00:00: (two) [place] 00 times Medical daily. Branch clobetasoL 2022-0 Yes [id number] Apply to [facility] 0.05 % 8-05 area(s) 2 ity of ointment 00:00: (two) [place] 00 times Medical daily. Branch clobetasoL 2022-0 Yes [id number] Apply to [facility] 0.05 % 8-05 area(s) 2 ity of ointment 00:00: (two) [place] 00 times Medical daily. Branch clobetasoL 2022-0 Yes [id number] Apply to [facility] 0.05 % 8-05 area(s) 2 ity of ointment 00:00: (two) [place] 00 times Medical daily. Branch clobetasoL 2022-0 Yes [id number] Apply to [facility] 0.05 % 8-05 area(s) 2 ity of ointment 00:00: (two) [place] 00 times Medical daily. Branch clobetasoL 2022-0 Yes [id number] Apply to [facility] 0.05 % 8-05 area(s) 2 ity of ointment 00:00: (two) [place] 00 times Medical daily. Branch clobetasoL 2022-0 Yes [id number] Apply to [facility] 0.05 % 8-05 area(s) 2 ity of ointment 00:00: (two) [place] 00 times Medical daily. Branch clobetasoL 2022-0 Yes [id number] Apply to [facility] 0.05 % 8-05 area(s) 2 ity of ointment 00:00: (two) [place] 00 times Medical daily. Branch clobetasoL 2022-0 Yes [id number] Apply to [facility] 0.05 % 8-05 area(s) 2 ity of ointment 00:00: (two) [place] 00 times Medical daily. Branch clobetasoL 2022-0 Yes [id number] Apply to [facility] 0.05 % 8-05 area(s) 2 ity of ointment 00:00: (two) [place] 00 times Medical daily. Branch clobetasoL 2022-0 Yes [id number] Apply to [facility] 0.05 % 8-05 area(s) 2 ity of ointment 00:00: (two) [place] 00 times Medical daily. Branch clobetasoL 2022-0 Yes [id number] Apply to [facility] 0.05 % 8-05 area(s) 2 ity of ointment 00:00: (two) [place] 00 times Medical daily. Branch clobetasoL 2022-0 Yes [id number] Apply to [facility] 0.05 % 8-05 area(s) 2 ity of ointment 00:00: (two) [place] 00 times Medical daily. Branch clobetasoL 2022-0 Yes [id number] Apply to [facility] 0.05 % 8-05 area(s) 2 ity of ointment 00:00: (two) [place] 00 times Medical daily. Branch clobetasoL 2022-0 Yes [id number] Apply to [facility] 0.05 % 8-05 area(s) 2 ity of ointment 00:00: (two) [place] 00 times Medical daily. Branch clobetasoL 2022-0 Yes [id number] Apply to [facility] 0.05 % 8-05 area(s) 2 ity of ointment 00:00: (two) [place] 00 times Medical daily. Branch clobetasoL 2022-0 Yes [id number] Apply to [facility] 0.05 % 8-05 area(s) 2 ity of ointment 00:00: (two) [place] 00 times Medical daily. Branch clobetasoL 2022-0 Yes [id number] Apply to [facility] 0.05 % 8-05 area(s) 2 ity of ointment 00:00: (two) [place] 00 times Medical daily. Branch clobetasoL 2022-0 Yes [id number] Apply to [facility] 0.05 % 8-05 area(s) 2 ity of ointment 00:00: (two) [place] 00 times Medical daily. Branch clobetasoL 2022-0 Yes [id number] Apply to [facility] 0.05 % 8-05 area(s) 2 ity of ointment 00:00: (two) [place] 00 times Medical daily. Branch clobetasoL 2022-0 Yes [id number] Apply to [facility] 0.05 % 8-05 area(s) 2 ity of ointment 00:00: (two) [place] 00 times Medical daily. Branch lisinopriL 2022-0 Yes [id number] 2.5mg Take 1 [facility] 2.5 mg 6-27 tablet by ity of tablet 00:00: mouth daily. Medical Branch lisinopriL 2022-0 Yes [id number] 2.5mg Take 1 [facility] 2.5 mg 6-27 tablet by ity of tablet 00:00: mouth daily. Medical Branch lisinopriL 2022-0 Yes [id number] 2.5mg Take 1 [facility] 2.5 mg 6-27 tablet by ity of tablet 00:00: mouth [place] 00 daily. Medical Branch lisinopriL 2021-0 Yes [id number] 2.5mg Take 1 [facility] 2.5 mg 6-27 tablet by ity of tablet 00:00: mouth [place] 00 daily. Medical Branch lisinopriL 2021-0 Yes [id number] 2.5mg Take 1 [facility] 2.5 mg 6-27 tablet by ity of tablet 00:00: mouth [place] 00 daily. Medical Branch lisinopriL 2021-0 2022- No [id number] 2.5mg Take 1 [facility] 2.5 mg 6-27 10-13 tablet by ity of tablet 00:00: 00:00 mouth [place] 00 :00 daily. Medical Branch Cholecalcif 0 Yes 2{capsu Take [...] 00:00: MOUTH [place] NIGHTLY Medical Branch Cholecalcif 0 Yes 2{capsu Take 2 U nivers ricardo, 5-29 le} capsules ity of Vitamin D3, 00:00: by mouth [place] 50 mcg 00 daily. Medical (2,000 Branch unit) capsule guanFACINE 2021-0 Yes TAKE 1 Unive rs ER 3 mg 5-29 TABLET BY ity of tablet 00:00: MOUTH [place] NIGHTLY Medical Branch Cholecalcif 0 Yes 2{capsu [...] TABLET BY ity of tablet 00:00: MOUTH [place] 00 NIGHTLY Medical Branch Cholecalcif Yes 2{capsu Take 2 U nivers ricardo, 5-29 le} capsules ity of Vitamin D3, 00:00: by mouth [place] 50 mcg 00 daily. Medical (2,000 Branch unit) capsule guanFACINE Yes TAKE 1 Unive rs ER 3 mg 5-29 TABLET BY ity of tablet 00:00: MOUTH [place] 00 NIGHTLY Medical Branch ROSUVASTATI Yes [id number] 20mg TAKE 1 [facility] N 20 mg 5-26 TABLET BY ity of tablet 00:00: MOUTH AT [place] [address] BEDTIME. Medical MUST BE Branch SEEN FOR FURTHER REFILLS ROSUVASTATI Yes [id number] 20mg TAKE 1 [facility] N 20 mg 5-26 TABLET BY ity of tablet 00:00: MOUTH AT [place] [address] BEDTIME. Medical MUST BE Branch SEEN FOR FURTHER REFILLS ROSUVASTATI 2021- No [id number] 20mg TAKE 1 [facility] N 20 mg 5-26 09-27 TABLET BY ity of tablet 00:00: 00:00 MOUTH AT [place] 00 :00 BEDTIME. Medical MUST BE Branch SEEN FOR FURTHER REFILLS ROSUVASTATI 2021- No [id number] 20mg TAKE 1 [facility] N 20 mg 5-26 09-27 TABLET BY ity of tablet 00:00: 00:00 MOUTH AT [place] 00 :00 BEDTIME. Medical MUST BE Branch SEEN FOR FURTHER REFILLS famotidine Yes TAKE 1 Un[facility] rs 20 mg 5-02 TABLET BY ity of tablet 00:00: MOUTH [place] 00 EVERY 12 Medical HOURS FOR Branch 10 DAYS ondansetron Yes TAKE 1 [facility] ers 4 mg tablet 5-02 TABLET BY ity of 00:00: MOUTH [place] 00 EVERY 12 Medical HOURS Branch NEEDED famotidine Yes TAKE 1 Unive rs 20 mg 5-02 TABLET BY ity of tablet 00:00: MOUTH [place] 00 EVERY 12 Medical HOURS FOR Branch 10 DAYS ondansetron Yes TAKE 1 [facility] ers 4 mg tablet 5-02 TABLET BY ity of 00:00: MOUTH [place] 00 EVERY 12 Medical HOURS Branch NEEDED [...] by mouth ity of tablet 00:00: at [place] [address] bedtime. Medical Branch ARIPiprazol 2022-0 Yes 5mg Take 5 mg U nivers e 5 mg 4-12 by mouth ity of tablet 00:00: at [place] [address] bedtime. Medical Branch ARIPiprazol 2022-0 Yes 5mg Take 5 mg U nivers e 5 mg 4-12 by mouth ity of tablet 00:00: at [place] [address] bedtime. Medical Branch ARIPiprazol 2022-0 Yes 5mg Take 5 mg U nivers e 5 mg 4-12 by mouth ity of tablet 00:00: at [place] [address] bedtime. Medical Branch ARIPiprazol 2-0 Yes 5mg Take 5 mg U nivers e 5 mg 4-12 by mouth ity of tablet 00:00: at [place] [address] bedtime. Medical Branch ARIPiprazol 2022-0 Yes 5mg Take 5 mg U nivers e 5 mg 4-12 by mouth ity of tablet 00:00: at [place] [address] bedtime. Medical Branch ARIPiprazol 2-0 Yes 5mg Take 5 mg U nivers e 5 mg 4-12 by mouth ity of tablet 00:00: at [place] [address] bedtime. Medical Branch ARIPiprazol 2-0 Yes 5mg Take 5 mg U nivers e 5 mg 4-12 by mouth ity of tablet 00:00: at [place] [address] bedtime. Medical Branch ARIPiprazol 2022-0 Yes 5mg Take 5 mg U nivers e 5 mg 4-12 by mouth ity of tablet 00:00: at [place] [address] bedtime. Medical Branch ARIPiprazol 2022-0 Yes 5mg Take 5 mg U nivers e 5 mg 4-12 by mouth ity of tablet 00:00: at [place] [address] bedtime. Medical Branch ARIPiprazol 2022-0 Yes 5mg Take 5 mg U nivers e 5 mg 4-12 by mouth ity of tablet 00:00: at [place] [address] bedtime. Medical Branch ARIPiprazol 2022-0 Yes 5mg Take 5 mg U nivers e 5 mg 4-12 by mouth ity of tablet 00:00: at [place] [address] bedtime. Medical Branch ARIPiprazol 2022-0 Yes 5mg Take 5 mg U nivers e 5 mg 4-12 by mouth ity of tablet 00:00: at [place] [address] bedtime. Medical Branch ARIPiprazol 2022-0 Yes 5mg Take 5 mg U nivers e 5 mg 4-12 by mouth ity of tablet 00:00: at [place] [address] bedtime. Medical Branch ARIPiprazol 2022-0 Yes 5mg Take 5 mg U nivers e 5 mg 4-12 by mouth ity of tablet 00:00: at [place] [address] bedtime. Medical Branch ARIPiprazol 2022-0 Yes 5mg Take 5 mg U nivers e 5 mg 4-12 by mouth ity of tablet 00:00: at [place] [address] bedtime. Medical Branch ARIPiprazol 2022-0 Yes 5mg Take 5 mg U nivers e 5 mg 4-12 by mouth ity of tablet 00:00: at [place] [address] bedtime. Medical Branch ARIPiprazol 2022-0 Yes 5mg Take 5 mg U nivers e 5 mg 4-12 by mouth ity of tablet 00:00: at [place] [address] bedtime. Medical Branch ARIPiprazol 2-0 Yes 5mg Take 5 mg U nivers e 5 mg 4-12 by mouth ity of tablet 00:00: at [place] [address] bedtime. Medical Branch ARIPiprazol 2-0 Yes 5mg Take 5 mg U nivers e 5 mg 4-12 by mouth ity of tablet 00:00: at [place] [address] bedtime. Medical Branch ARIPiprazol 2022-0 Yes 5mg Take 5 mg U nivers e 5 mg 4-12 by mouth ity of tablet 00:00: at [place] [address] bedtime. Medical Branch ARIPiprazol 2022-0 Yes 5mg Take 5 mg U nivers e 5 mg 4-12 by mouth ity of tablet 00:00: at [place] [address] bedtime. Medical Branch ARIPiprazol 2022-0 Yes 5mg Take 5 mg U nivers e 5 mg 4-12 by mouth ity of tablet 00:00: at [place] [address] bedtime. Medical Branch ARIPiprazol 2022-0 Yes 5mg Take 5 mg U nivers e 5 mg 4-12 by mouth ity of tablet 00:00: at [place] [address] bedtime. Medical Branch ARIPiprazol 2022-0 Yes 5mg Take 5 mg U nivers e 5 mg 4-12 by mouth ity of tablet 00:00: at [place] [address] bedtime. Medical Branch ARIPiprazol 2022-0 Yes 5mg Take 5 mg U nivers e 5 mg 4-12 by mouth ity of tablet 00:00: at [place] [address] bedtime. Medical Branch ARIPiprazol 2022-0 Yes 5mg Take 5 mg U nivers e 5 mg 4-12 by mouth ity of tablet 00:00: at [place] [address] bedtime. Medical Branch ARIPiprazol 2022-0 Yes 5mg Take 5 mg U nivers e 5 mg 4-12 by mouth ity of tablet 00:00: at [place] [address] bedtime. Medical Branch ARIPiprazol 2022-0 Yes 5mg Take 5 mg U nivers e 5 mg 4-12 by mouth ity of tablet 00:00: at [place] [address] bedtime. Medical Branch ARIPiprazol 2022-0 Yes 5mg Take 5 mg U nivers e 5 mg 4-12 by mouth ity of tablet 00:00: at [place] [address] bedtime. Medical Branch ARIPiprazol 2022-0 Yes 5mg Take 5 mg U nivers e 5 mg 4-12 by mouth ity of tablet 00:00: at [place] [address] bedtime. Medical Branch ARIPiprazol 2022-0 Yes 5mg Take 5 mg U nivers e 5 mg 4-12 by mouth ity of tablet 00:00: at [place] [address] bedtime. Medical Branch ARIPiprazol 2022-0 Yes 5mg Take 5 mg U nivers e 5 mg 4-12 by mouth ity of tablet 00:00: at [place] [address] bedtime. Medical Branch ARIPiprazol 2022-0 Yes 5mg Take 5 mg U nivers e 5 mg 4-12 by mouth ity of tablet 00:00: at [place] [address] bedtime. Medical Branch ARIPiprazol 2022-0 Yes 5mg Take 5 mg U nivers e 5 mg 4-12 by mouth ity of tablet 00:00: at [place] [address] bedtime. Medical Branch ARIPiprazol 2022-0 Yes 5mg Take 5 mg U nivers e 5 mg 4-12 by mouth ity of tablet 00:00: at [place] [address] bedtime. Medical Branch ARIPiprazol 2022-0 Yes 5mg Take 5 mg U nivers e 5 mg 4-12 by mouth ity of tablet 00:00: at [place] 00 bedtime. Medical Branch ARIPiprazol 2021-0 Yes 5mg Take 5 mg U nivers e 5 mg 4-12 by mouth ity of tablet 00:00: at [place] 00 bedtime. Medical Branch ivermectin 2-0 Yes [id number] 13.5mg Take 4.5 [facility] 3 mg tablet 1-12 tablets by it y of 00:00: mouth [place] 00 weekly. Medical Branch ivermectin 2021-0 Yes [id number] 13.5mg Take 4.5 [facility] 3 mg tablet 1-12 tablets by it y of 00:00: mouth [place] 00 weekly. Medical Branch ivermectin 2021-0 Yes [id number] 13.5mg Take 4.5 [facility] 3 mg tablet 1-12 tablets by it y of 00:00: mouth [place] 00 weekly. Medical Branch ivermectin 2021-0 Yes [id number] 13.5mg Take 4.5 [facility] 3 mg tablet 1-12 tablets by it y of 00:00: mouth [place] 00 weekly. Medical Branch ivermectin 2021-0 Yes [id number] 13.5mg Take 4.5 [facility] 3 mg tablet 1-12 tablets by it y of 00:00: mouth [place] 00 weekly. Medical Branch ivermectin 2021-0 Yes [id number] 13.5mg Take 4.5 [facility] 3 mg tablet 1-12 tablets by it y of 00:00: mouth [place] 00 weekly. Medical Branch ivermectin 2-0 Yes [id number] 13.5mg Take 4.5 [facility] 3 mg tablet 1-12 tablets by it y of 00:00: mouth [place] 00 weekly. Medical Branch ivermectin 2-0 Yes [id number] 13.5mg Take 4.5 [facility] 3 mg tablet 1-12 tablets by it y of 00:00: mouth [place] 00 weekly. Medical Branch ivermectin 2-0 Yes [id number] 13.5mg Take 4.5 [facility] 3 mg tablet 1-12 tablets by it y of 00:00: mouth [place] 00 weekly. Medical Branch ivermectin 2-0 Yes [id number] 13.5mg Take 4.5 [facility] 3 mg tablet 1-12 tablets by it y of 00:00: mouth [place] 00 weekly. Medical Branch ivermectin 2-0 Yes [id number] 13.5mg Take 4.5 [facility] 3 mg tablet 1-12 tablets by it y of 00:00: mouth [place] 00 weekly. Medical Branch ivermectin 2-0 Yes [id number] 13.5mg Take 4.5 [facility] 3 mg tablet 1-12 tablets by it y of 00:00: mouth [place] 00 weekly. Medical Branch ivermectin 2-0 Yes [id number] 13.5mg Take 4.5 [facility] 3 mg tablet 1-12 tablets by it y of 00:00: mouth [place] 00 weekly. Medical Branch ivermectin 2021-0 Yes [id number] 13.5mg Take 4.5 [facility] 3 mg tablet 1-12 tablets by it y of 00:00: mouth [place] 00 weekly. Medical Branch ivermectin 2021-0 Yes [id number] 13.5mg Take 4.5 [facility] 3 mg tablet 1-12 tablets by it y of 00:00: mouth [place] 00 weekly. Medical Branch ivermectin 2021-0 Yes [id number] 13.5mg Take 4.5 [facility] 3 mg tablet 1-12 tablets by it y of 00:00: mouth [place] 00 weekly. Medical Branch ivermectin 2021-0 Yes [id number] 13.5mg Take 4.5 [facility] 3 mg tablet 1-12 tablets by it y of 00:00: mouth [place] 00 weekly. Medical Branch ivermectin 2-0 Yes [id number] 13.5mg Take 4.5 [facility] 3 mg tablet 1-12 tablets by it y of 00:00: mouth [place] 00 weekly. Medical Branch ivermectin 2-0 Yes [id number] 13.5mg Take 4.5 [facility] 3 mg tablet 1-12 tablets by it y of 00:00: mouth [place] 00 weekly. Medical Branch ivermectin 2-0 Yes [id number] 13.5mg Take 4.5 [facility] 3 mg tablet 1-12 tablets by it y of 00:00: mouth [place] 00 weekly. Medical Branch ivermectin 2-0 Yes [id number] 13.5mg Take 4.5 [facility] 3 mg tablet 1-12 tablets by it y of 00:00: mouth [place] 00 weekly. Medical Branch ivermectin 2-0 Yes [id number] 13.5mg Take 4.5 [facility] 3 mg tablet 1-12 tablets by it y of 00:00: mouth [place] 00 weekly. Medical Branch ivermectin 2-0 Yes [id number] 13.5mg Take 4.5 [facility] 3 mg tablet 1-12 tablets by it y of 00:00: mouth [place] 00 weekly. Medical Branch ivermectin 2-0 Yes [id number] 13.5mg Take 4.5 [facility] 3 mg tablet 1-12 tablets by it y of 00:00: mouth [place] 00 weekly. Medical Branch ivermectin 2-0 Yes [id number] 13.5mg Take 4.5 [facility] 3 mg tablet 1-12 tablets by it y of 00:00: mouth [place] 00 weekly. Medical Branch ivermectin 2021-0 Yes [id number] 13.5mg Take 4.5 [facility] 3 mg tablet 1-12 tablets by it y of 00:00: mouth [place] 00 weekly. Medical Branch ivermectin 2021-0 Yes [id number] 13.5mg Take 4.5 [facility] 3 mg tablet 1-12 tablets by it y of 00:00: mouth [place] 00 weekly. Medical Branch ivermectin 2021-0 Yes [id number] 13.5mg Take 4.5 [facility] 3 mg tablet 1-12 tablets by it y of 00:00: mouth [place] 00 weekly. Medical Branch ivermectin 2-0 Yes [id number] 13.5mg Take 4.5 [facility] 3 mg tablet 1-12 tablets by it y of 00:00: mouth [place] 00 weekly. Medical Branch ivermectin 2-0 Yes [id number] 13.5mg Take 4.5 [facility] 3 mg tablet 1-12 tablets by it y of 00:00: mouth [place] 00 weekly. Medical Branch ivermectin 2-0 Yes [id number] 13.5mg Take 4.5 [facility] 3 mg tablet 1-12 tablets by it y of 00:00: mouth [place] 00 weekly. Medical Branch ivermectin 2-0 Yes [id number] 13.5mg Take 4.5 [facility] 3 mg tablet 1-12 tablets by it y of 00:00: mouth [place] 00 weekly. Medical Branch ivermectin 2-0 Yes [id number] 13.5mg Take 4.5 [facility] 3 mg tablet 1-12 tablets by it y of 00:00: mouth [place] 00 weekly. Medical Branch ivermectin 2022-0 Yes [id number] 13.5mg Take 4.5 [facility] 3 mg tablet 1-12 tablets by it y of 00:00: mouth weekly. Medical Branch ivermectin 0 Yes [id number] 13.5mg Take 4.5 [facility] 3 mg tablet 1-12 tablets by it y of 00:00: mouth weekly. Medical Branch ivermectin 0 Yes [id number] 13.5mg Take 4.5 [facility] 3 mg tablet 1-12 tablets by it y of 00:00: mouth 00 weekly. Medical Branch ivermectin 0 Yes [id number] 13.5mg Take 4.5 [facility] 3 mg tablet 1-12 tablets by it y of 00:00: mouth 00 weekly. Medical Branch ivermectin Yes [id number] 13.5mg Take 4.5 [facility] 3 mg tablet 1-12 tablets by it y of 00:00: mouth weekly. Medical Branch trazodone 2020-10 Yes Take by Unive rs HCl 129 mouth. ity of (TRAZODONE 13:30: [place] ORAL) [...] by mouth ity of tablet 13:30: daily. [facility] Branch trazodone 2020-10 Yes Take by Unive rs HCl -29 mouth. ity of (TRAZODONE 13:30: [place] ORAL) [facility] Branch citalopram 2020-10 Yes 10mg Take 10 mg U nivers 10 mg 1-29 by mouth ity of tablet 13:30: daily. [facility] Branch trazodone 2020-10 Yes Take by Unive rs HCl -29 mouth. ity of (TRAZODONE 13:30: [place] ORAL) [facility] Branch citalopram 2020-10 Yes 10mg Take 10 mg U nivers 10 mg 1-29 by mouth ity of tablet 13:30: daily. [facility] Branch trazodone 2020-10 Yes Take by Unive rs HCl 11-06 mouth. ity of (TRAZODONE 13:30: [place] ORAL) [facility] Branch citalopram 2020-10 Yes 10mg Take 10 mg U nivers 10 mg 1-29 by mouth ity of tablet 13:30: daily. [facility] Branch trazodone 2020-10 Yes Take by Unive rs HCl 1-29 mouth. ity of (TRAZODONE 13:30: [place] ORAL) [facility] Branch citalopram 2020-10 Yes 10mg Take 10 mg U nivers 10 mg 1-29 by mouth ity of tablet 13:30: daily. [facility] Branch trazodone 2020-10 Yes Take by Unive rs HCl 29 mouth. ity of (TRAZODONE 13:30: [place] ORAL) Medical Branch citalopram 2020-10 Yes 10mg Take 10 mg U nivers 10 mg 1-29 by mouth ity of tablet 13:30: daily. [facility] Branch trazodone 2020-10 Yes Take by Unive rs HCl -29 mouth. ity of (TRAZODONE 13:30: [place] ORAL) [facility] Branch citalopram 2020-10 Yes 10mg Take 10 mg U nivers 10 mg 1-29 by mouth ity of tablet 13:30: daily. [facility] Branch trazodone 2020-10 Yes Take by Unive rs HCl 1-29 mouth. ity of (TRAZODONE 13:30: [place] ORAL) [facility] Branch citalopram 2020-10 Yes 10mg Take 10 mg U nivers 10 mg 1-29 by mouth ity of tablet 13:30: daily. Medical Branch trazodone 2020-10 Yes Take by Unive rs HCl 1-29 mouth. ity of (TRAZODONE 13:30: [place] ORAL) [facility] Branch citalopram 2020-10 Yes 10mg Take 10 mg U nivers 10 mg 1-29 by mouth ity of tablet 13:30: daily. [facility] Branch trazodone 2020-10 Yes Take by Unive rs HCl 29 mouth. ity of (TRAZODONE 13:30: [place] ORAL) [facility] Branch citalopram 2020-10 Yes 10mg Take 10 mg U nivers 10 mg 1-29 by mouth ity of tablet 13:30: daily. [facility] Branch trazodone 2020-10 Yes Take by Unive rs HCl 29 mouth. ity of (TRAZODONE 13:30: [place] ORAL) [facility] citalopram 2020-10 Yes 10mg Take 10 mg U nivers 10 mg 1-29 by mouth ity of tablet 13:30: daily. [facility] Branch trazodone 2020-10 Yes Take by Unive rs HCl 1-29 mouth. ity of (TRAZODONE 13:30: [place] ORAL) [facility] Branch citalopram 2020-10 Yes 10mg Take 10 mg U nivers 10 mg 1-29 by mouth ity of tablet 13:30: daily. [facility] Branch trazodone 2020-10 Yes Take by Unive rs HCl -29 mouth. ity of (TRAZODONE 13:30: [place] ORAL) [facility] Branch citalopram 2020-10 Yes 10mg Take 10 mg U nivers 10 mg 1-29 by mouth ity of tablet 13:30: daily. [facility] Branch trazodone 2020-10 Yes Take by Unive rs HCl 1-29 mouth. ity of (TRAZODONE 13:30: [place] ORAL) [facility] Branch citalopram 2020-10 Yes 10mg Take 10 mg U nivers 10 mg 1-29 by mouth ity of tablet 13:30: daily. [address] trazodone 2020-10 Yes Take by Unive rs HCl -29 mouth. ity of (TRAZODONE 13:30: [place] ORAL) Medical Branch citalopram 2020-10 Yes 10mg Take 10 mg U nivers 10 mg 1-29 by mouth ity of tablet 13:30: daily. [facility] Branch trazodone 2020-10 Yes Take by Unive rs HCl 29 mouth. ity of (TRAZODONE 13:30: [place] ORAL) [facility] Branch citalopram 2020-10 Yes 10mg Take 10 mg U nivers 10 mg -29 by mouth ity of tablet 13:30: daily. [facility] Branch trazodone 2020-10 Yes Take by Unive rs HCl 11-06 mouth. ity of (TRAZODONE 13:30: [place] ORAL) [facility] Branch citalopram 2020-10 Yes 10mg Take 10 mg U nivers 10 mg 1-29 by mouth ity of tablet 13:30: daily. [facility] Branch trazodone 2020-10 Yes Take by Unive rs HCl -29 mouth. ity of (TRAZODONE 13:30: [place] ORAL) [facility] Branch citalopram 2020-10 Yes 10mg Take 10 mg U nivers 10 mg 1-29 by mouth ity of tablet 13:30: daily. [facility] Branch trazodone 2020-10 Yes Take by Unive rs HCl 29 mouth. ity of (TRAZODONE 13:30: [place] ORAL) [facility] citalopram 2020-10 Yes 10mg Take 10 mg U nivers 10 mg 1-29 by mouth ity of tablet 13:30: daily. [facility] trazodone 2020-10 Yes Take by Unive rs HCl -29 mouth. ity of (TRAZODONE 13:30: [place] ORAL) [facility] citalopram 2020-10 Yes 10mg Take 10 mg U nivers 10 mg 1-29 by mouth ity of tablet 13:30: daily. [facility] trazodone 2020-10 Yes Take by Unive rs HCl -29 mouth. ity of (TRAZODONE 13:30: [place] ORAL) [facility] citalopram 2020-10 Yes 10mg Take 10 mg U nivers 10 mg 1-29 by mouth ity of tablet 13:30: daily. [facility] trazodone 2020-10 Yes Take by Unive rs HCl -29 mouth. ity of (TRAZODONE 13:30: [place] ORAL) [facility] citalopram 2020-10 Yes 10mg Take 10 mg U nivers 10 mg 1-29 by mouth ity of tablet 13:30: daily. [facility] trazodone 2020-10 Yes Take by Unive rs HCl 29 mouth. ity of (TRAZODONE 13:30: [place] ORAL) [facility] citalopram 2020-10 Yes 10mg Take 10 mg U nivers 10 mg 1-29 by mouth ity of tablet 13:30: daily. [facility] trazodone 2020-10 Yes Take by Unive rs HCl 11-06 mouth. ity of (TRAZODONE 13:30: [place] ORAL) [facility] citalopram 2020-10 Yes 10mg Take 10 mg U nivers 10 mg 1-29 by mouth ity of tablet 13:30: daily. [facility] trazodone 2020-10 Yes Take by Unive rs HCl 29 mouth. ity of (TRAZODONE 13:30: [place] ORAL) [facility] citalopram 2020-10 Yes 10mg Take 10 mg U nivers 10 mg 1-29 by mouth ity of tablet 13:30: daily. [facility] trazodone 2020-10 Yes Take by Unive rs HCl 29 mouth. ity of (TRAZODONE 13:30: [place] ORAL) [facility] citalopram 2020-10 Yes 10mg Take 10 mg U nivers 10 mg 1-29 by mouth ity of tablet 13:30: daily. [facility] trazodone 2020-10 Yes Take by Unive rs HCl -29 mouth. ity of (TRAZODONE 13:30: [place] ORAL) [facility] citalopram 2020-10 Yes 10mg Take 10 mg U nivers 10 mg 1-29 by mouth ity of tablet 13:30: daily. [facility] trazodone 2020-10 Yes Take by Unive [...] mouth. ity of (TRAZODONE 13:30: [place] ORAL) [facility] citalopram 2020-10 Yes 10mg Take 10 [...] by mouth ity of tablet 13:30: daily. [place] [facility] trazodone 2020-10 Yes Take by Unive rs HCl 11-06 mouth. ity of (TRAZODONE 13:30: [place] ORAL) [facility] citalopram 2020-10 Yes 10mg Take 10 mg U nivers 10 mg 11-06 by mouth ity of tablet 13:30: daily. [place] [facility] cetirizine Yes [id number] 10mg Take 1 Tab Univers (ZYRTEC) 10 1-03 by mouth ity of mg tablet 00:00: daily. [place] [facility] cetirizine Yes [id number] 10mg Take 1 Tab [facility] (ZYRTEC) 10 1-03 by mouth ity of mg tablet 00:00: daily. [place] [facility] cetirizine Yes [id number] 10mg Take 1 [facility] (ZYRTEC) 10 1-03 by mouth ity of mg tablet 00:00: daily. [place] [facility] cetirizine Yes [id number] 10mg Take 1 [facility] (ZYRTEC) 10 1-03 by mouth ity of mg tablet 00:00: daily. [place] [facility] cetirizine Yes [id number] 10mg Take 1 Tab Univers (ZYRTEC) 10 1-03 by mouth ity of mg tablet 00:00: daily. [place] [facility] cetirizine Yes [id number] 10mg Take 1 [facility] (ZYRTEC) 10 1-03 by mouth ity of mg tablet 00:00: daily. [place] [facility] cetirizine Yes [id number] 10mg Take 1 Tab Univers (ZYRTEC) 10 1-03 by mouth ity of mg tablet 00:00: daily. [place] [facility] cetirizine Yes [id number] 10mg Take 1 [facility] (ZYRTEC) 10 1-03 by mouth ity of mg tablet 00:00: daily. [facility] cetirizine Yes [id number] 10mg Take 1 Tab [facility] (ZYRTEC) 10 1-03 by mouth ity of mg tablet 00:00: daily. [facility] cetirizine Yes [id number] 10mg Take 1 [facility] (ZYRTEC) 10 1-03 by mouth ity of mg tablet 00:00: daily. [facility] cetirizine Yes [id number] 10mg Take 1 [facility] (ZYRTEC) 10 1-03 by mouth ity of mg tablet 00:00: daily. [facility] cetirizine Yes [id number] 10mg Take 1 Tab [facility] (ZYRTEC) 10 1-03 by mouth ity of mg tablet 00:00: daily. [facility] cetirizine Yes [id number] 10mg Take 1 Tab [facility] (ZYRTEC) 10 1-03 by mouth ity of mg tablet 00:00: daily. [facility] cetirizine Yes [id number] 10mg Take 1 Tab [facility] (ZYRTEC) 10 1-03 by mouth ity of mg tablet 00:00: daily. [facility] cetirizine Yes [id number] 10mg Take 1 Tab [facility] (ZYRTEC) 10 1-03 by mouth ity of mg tablet 00:00: daily. [facility] cetirizine Yes [id number] 10mg Take 1 Tab [facility] (ZYRTEC) 10 1-03 by mouth ity of mg tablet 00:00: daily. [facility] cetirizine Yes [id number] 10mg Take 1 Tab [facility] (ZYRTEC) 10 1-03 by mouth ity of mg tablet 00:00: daily. [facility] cetirizine Yes [id number] 10mg Take 1 Tab [facility] (ZYRTEC) 10 1-03 by mouth ity of mg tablet 00:00: daily. [facility] cetirizine Yes [id number] 10mg Take 1 Tab [facility] (ZYRTEC) 10 1-03 by mouth ity of mg tablet 00:00: daily. [facility] cetirizine Yes [id number] 10mg Take 1 Tab [facility] (ZYRTEC) 10 1-03 by mouth ity of mg tablet 00:00: daily. [facility] cetirizine Yes [id number] 10mg Take 1 Tab [facility] (ZYRTEC) 10 1-03 by mouth ity of mg tablet 00:00: daily. [facility] cetirizine Yes [id number] 10mg Take 1 Tab Univers (ZYRTEC) 10 1-03 by mouth ity of mg tablet 00:00: daily. [facility] cetirizine Yes [id number] 10mg Take 1 Tab [facility] (ZYRTEC) 10 1-03 by mouth ity of mg tablet 00:00: daily. [facility] cetirizine Yes [id number] 10mg Take 1 Tab [facility] (ZYRTEC) 10 1-03 by mouth ity of mg tablet 00:00: daily. [facility] cetirizine Yes [id number] 10mg Take 1 Tab [facility] (ZYRTEC) 10 1-03 by mouth ity of mg tablet 00:00: daily. [facility] cetirizine Yes [id number] 10mg Take 1 Tab Univers (ZYRTEC) 10 1-03 by mouth ity of mg tablet 00:00: daily. [facility] cetirizine Yes [id number] 10mg Take 1 Tab Univers (ZYRTEC) 10 1-03 by mouth ity of mg tablet 00:00: daily. [facility] cetirizine Yes [id number] 10mg Take 1 Tab Univers (ZYRTEC) 10 1-03 by mouth ity of mg tablet 00:00: daily. [facility] cetirizine Yes [id number] 10mg Take 1 Tab Univers (ZYRTEC) 10 1-03 by mouth ity of mg tablet 00:00: daily. [facility] cetirizine Yes [id number] 10mg Take 1 Tab Univers (ZYRTEC) 10 1-03 by mouth ity of mg tablet 00:00: daily. [facility] cetirizine Yes [id number] 10mg Take 1 Tab Univers (ZYRTEC) 10 1-03 by mouth ity of mg tablet 00:00: daily. [facility] cetirizine Yes [id number] 10mg Take 1 Tab Univers (ZYRTEC) 10 1-03 by mouth ity of mg tablet 00:00: daily. [place] [facility] cetirizine Yes [id number] 10mg Take 1 Tab Univers (ZYRTEC) 10 1-03 by mouth ity of mg tablet 00:00: daily. [place] [facility] cetirizine Yes [id number] 10mg Take 1 Tab Univers (ZYRTEC) 10 1-03 by mouth ity of mg tablet 00:00: daily. [place] [facility] cetirizine Yes [id number] 10mg Take 1 Tab Univers (ZYRTEC) 10 1-03 by mouth ity of mg tablet 00:00: daily. [place] [facility] cetirizine Yes [id number] 10mg Take 1 Tab Univers (ZYRTEC) 10 1-03 by mouth ity of mg tablet 00:00: daily. [place] [facility] cetirizine Yes [id number] 10mg Take 1 Tab Univers (ZYRTEC) 10 1-03 by mouth ity of mg tablet 00:00: daily. [place] [facility] cetirizine Yes [id number] 10mg Take 1 Tab Univers (ZYRTEC) 10 1-03 by mouth ity of mg tablet 00:00: daily. [address] Immunizations Ordered Immunization Filled Immunization Date Status Commen ts Source Name Name SARS-COV-2 COVID-19 2021-09-06 Completed Unive rsity of PFIZER VACCINE 00:00:00 [facility] SARS-COV-2 COVID-19 2021-09-06 Completed Unive rsity of PFIZER VACCINE 00:00:00 [facility] SARS-COV-2 COVID-19 2021-09-06 Completed Unive rsity of PFIZER VACCINE 00:00:00 [facility] SARS-COV-2 COVID-19 2021-09-06 Completed Unive rsity of PFIZER VACCINE 00:00:00 [facility] SARS-COV-2 COVID-19 2021-09-06 Completed Unive rsity of PFIZER VACCINE 00:00:00 [facility] SARS-COV-2 COVID-19 2021-09-06 Completed Unive rsity of PFIZER VACCINE 00:00:00 [facility] SARS-COV-2 COVID-19 2021-09-06 Completed Unive rsity of PFIZER VACCINE 00:00:00 [facility] SARS-COV-2 COVID-19 2021-09-06 Completed Unive rsity of PFIZER VACCINE 00:00:00 [facility] SARS-COV-2 COVID-19 2021-09-06 Completed Unive rsity of PFIZER VACCINE 00:00:00 [facility] SARS-COV-2 COVID-19 2021-09-06 Completed Unive rsity of PFIZER VACCINE 00:00:00 [facility] SARS-COV-2 COVID-19 2021-09-06 Completed Unive rsity of PFIZER VACCINE 00:00:00 [facility] SARS-COV-2 COVID-19 2021-09-06 Completed Unive rsity of PFIZER VACCINE 00:00:00 [facility] SARS-COV-2 COVID-19 2021-09-06 Completed Unive rsity of PFIZER VACCINE 00:00:00 [facility] SARS-COV-2 COVID-19 2021-09-06 Completed Unive rsity of PFIZER VACCINE 00:00:00 [facility] SARS-COV-2 COVID-19 2021-09-06 Completed Unive rsity of PFIZER VACCINE 00:00:00 [facility] SARS-COV-2 COVID-19 2021-09-06 Completed Unive rsity of PFIZER VACCINE 00:00:00 [facility] SARS-COV-2 COVID-19 2021-09-06 Completed Unive rsity of PFIZER VACCINE 00:00:00 [facility] SARS-COV-2 COVID-19 2021-09-06 Completed Unive rsity of PFIZER VACCINE 00:00:00 [facility] SARS-COV-2 COVID-19 2021-09-06 Completed Unive rsity of PFIZER VACCINE 00:00:00 [facility] SARS-COV-2 COVID-19 2021-09-06 Completed Unive rsity of PFIZER VACCINE 00:00:00 [facility] SARS-COV-2 COVID-19 2021-09-06 Completed Unive rsity of PFIZER VACCINE 00:00:00 [facility] SARS-COV-2 COVID-19 2021-09-06 Completed Unive rsity of PFIZER VACCINE 00:00:00 [facility] SARS-COV-2 COVID-19 2021-09-06 Completed Unive rsity of PFIZER VACCINE 00:00:00 [facility] SARS-COV-2 COVID-19 2021-09-06 Completed Unive rsity of PFIZER VACCINE 00:00:00 [facility] SARS-COV-2 COVID-19 2021-09-06 Completed Unive rsity of PFIZER VACCINE 00:00:00 [facility] SARS-COV-2 COVID-19 2021-09-06 Completed Unive rsity of PFIZER VACCINE 00:00:00 [facility] SARS-COV-2 COVID-19 2021-09-06 Completed Unive rsity of PFIZER VACCINE 00:00:00 [facility] SARS-COV-2 COVID-19 2021-09-06 Completed Unive rsity of PFIZER VACCINE 00:00:00 [facility] SARS-COV-2 COVID-19 2021-09-06 Completed Unive rsity of PFIZER VACCINE 00:00:00 [facility] SARS-COV-2 COVID-19 2021-09-06 Completed Unive rsity of PFIZER VACCINE 00:00:00 [facility] SARS-COV-2 COVID-19 2021-09-06 Completed Unive rsity of PFIZER VACCINE 00:00:00 [facility] SARS-COV-2 COVID-19 2021-09-06 Completed Unive rsity of PFIZER VACCINE 00:00:00 [facility] SARS-COV-2 COVID-19 2021-09-06 Completed Unive rsity of PFIZER VACCINE 00:00:00 [facility] SARS-COV-2 COVID-19 2021-09-06 Completed Unive rsity of PFIZER VACCINE 00:00:00 [facility] SARS-COV-2 COVID-19 2021-09-06 Completed Unive rsity of PFIZER VACCINE 00:00:00 [facility] SARS-COV-2 COVID-19 2021-09-06 Completed Unive rsity of PFIZER VACCINE 00:00:00 [facility] SARS-COV-2 COVID-19 2021-09-06 Completed Unive rsity of PFIZER VACCINE 00:00:00 [facility] SARS-COV-2 COVID-19 2021-09-06 Completed Unive rsity of PFIZER VACCINE 00:00:00 [facility] SARS-COV-2 COVID-19 2021-02-06 Completed Unive rsity of PFIZER VACCINE 00:00:00 [facility] SARS-COV-2 COVID-19 2021-02-06 Completed Unive rsity of PFIZER VACCINE 00:00:00 [facility] SARS-COV-2 COVID-19 2021-02-06 Completed Unive rsity of PFIZER VACCINE 00:00:00 [facility] SARS-COV-2 COVID-19 2021-02-06 Completed Unive rsity of PFIZER VACCINE 00:00:00 [facility] SARS-COV-2 COVID-19 2021-02-06 Completed Unive rsity of PFIZER VACCINE 00:00:00 [facility] SARS-COV-2 COVID-19 2021-02-06 Completed Unive rsity of PFIZER VACCINE 00:00:00 [facility] SARS-COV-2 COVID-19 2021-02-06 Completed Unive rsity of PFIZER VACCINE 00:00:00 [facility] SARS-COV-2 COVID-19 2021-02-06 Completed Unive rsity of PFIZER VACCINE 00:00:00 [facility] SARS-COV-2 COVID-19 2021-02-06 Completed Unive rsity of PFIZER VACCINE 00:00:00 [facility] SARS-COV-2 COVID-19 2021-02-06 Completed Unive rsity of PFIZER VACCINE 00:00:00 [facility] SARS-COV-2 COVID-19 2021-02-06 Completed Unive rsity of PFIZER VACCINE 00:00:00 [facility] SARS-COV-2 COVID-19 2021-02-06 Completed Unive rsity of PFIZER VACCINE 00:00:00 [facility] SARS-COV-2 COVID-19 2021-02-06 Completed Unive rsity of PFIZER VACCINE 00:00:00 [facility] SARS-COV-2 COVID-19 2021-02-06 Completed Unive rsity of PFIZER VACCINE 00:00:00 [facility] SARS-COV-2 COVID-19 2021-02-06 Completed Unive rsity of PFIZER VACCINE 00:00:00 [facility] SARS-COV-2 COVID-19 2021-02-06 Completed Unive rsity of PFIZER VACCINE 00:00:00 [facility] SARS-COV-2 COVID-19 2021-02-06 Completed Unive rsity of PFIZER VACCINE 00:00:00 [facility] SARS-COV-2 COVID-19 2021-02-06 Completed Unive rsity of PFIZER VACCINE 00:00:00 [facility] SARS-COV-2 COVID-19 2021-02-06 Completed Unive rsity of PFIZER VACCINE 00:00:00 [facility] SARS-COV-2 COVID-19 2021-02-06 Completed Unive rsity of PFIZER VACCINE 00:00:00 [facility] SARS-COV-2 COVID-19 2021-02-06 Completed Unive rsity of PFIZER VACCINE 00:00:00 [facility] SARS-COV-2 COVID-19 2021-02-06 Completed Unive rsity of PFIZER VACCINE 00:00:00 [facility] SARS-COV-2 COVID-19 2021-02-06 Completed Unive rsity of PFIZER VACCINE 00:00:00 [facility] SARS-COV-2 COVID-19 2021-02-06 Completed Unive rsity of PFIZER VACCINE 00:00:00 [facility] SARS-COV-2 COVID-19 2021-02-06 Completed Unive rsity of PFIZER VACCINE 00:00:00 [facility] SARS-COV-2 COVID-19 2021-02-06 Completed Unive rsity of PFIZER VACCINE 00:00:00 [facility] SARS-COV-2 COVID-19 2021-02-06 Completed Unive rsity of PFIZER VACCINE 00:00:00 [facility] SARS-COV-2 COVID-19 2021-02-06 Completed Unive rsity of PFIZER VACCINE 00:00:00 [facility] SARS-COV-2 COVID-19 2021-02-06 Completed Unive rsity of PFIZER VACCINE 00:00:00 [facility] SARS-COV-2 COVID-19 2021-02-06 Completed Unive rsity of PFIZER VACCINE 00:00:00 [facility] SARS-COV-2 COVID-19 2021-02-06 Completed Unive rsity of PFIZER VACCINE 00:00:00 [facility] SARS-COV-2 COVID-19 2021-02-06 Completed Unive rsity of PFIZER VACCINE 00:00:00 [facility] SARS-COV-2 COVID-19 2021-02-06 Completed Unive rsity of PFIZER VACCINE 00:00:00 [facility] SARS-COV-2 COVID-19 2021-02-06 Completed Unive rsity of PFIZER VACCINE 00:00:00 [facility] SARS-COV-2 COVID-19 2021-02-06 Completed Unive rsity of PFIZER VACCINE 00:00:00 [facility] SARS-COV-2 COVID-19 2021-02-06 Completed Unive rsity of PFIZER VACCINE 00:00:00 [facility] SARS-COV-2 COVID-19 2021-02-06 Completed Unive rsity of PFIZER VACCINE 00:00:00 [facility] SARS-COV-2 COVID-19 2021-02-06 Completed Unive rsity of PFIZER VACCINE 00:00:00 [facility] SARS-COV-2 COVID-19 2021-01-16 Completed Unive rsity of PFIZER VACCINE 00:00:00 [facility] SARS-COV-2 COVID-19 2021-01-16 Completed Unive rsity of PFIZER VACCINE 00:00:00 [facility] SARS-COV-2 COVID-19 2021-01-16 Completed Unive rsity of PFIZER VACCINE 00:00:00 [facility] SARS-COV-2 COVID-19 2021-01-16 Completed Unive rsity of PFIZER VACCINE 00:00:00 [facility] SARS-COV-2 COVID-19 2021-01-16 Completed Unive rsity of PFIZER VACCINE 00:00:00 [facility] SARS-COV-2 COVID-19 2021-01-16 Completed Unive rsity of PFIZER VACCINE 00:00:00 [facility] SARS-COV-2 COVID-19 2021-01-16 Completed Unive rsity of PFIZER VACCINE 00:00:00 [facility] SARS-COV-2 COVID-19 2021-01-16 Completed Unive rsity of PFIZER VACCINE 00:00:00 [facility] SARS-COV-2 COVID-19 2021-01-16 Completed Unive rsity of PFIZER VACCINE 00:00:00 [facility] SARS-COV-2 COVID-19 2021-01-16 Completed Unive rsity of PFIZER VACCINE 00:00:00 [facility] SARS-COV-2 COVID-19 2021-01-16 Completed Unive rsity of PFIZER VACCINE 00:00:00 [facility] SARS-COV-2 COVID-19 2021-01-16 Completed Unive rsity of PFIZER VACCINE 00:00:00 [facility] SARS-COV-2 COVID-19 2021-01-16 Completed Unive rsity of PFIZER VACCINE 00:00:00 [facility] SARS-COV-2 COVID-19 2021-01-16 Completed Unive rsity of PFIZER VACCINE 00:00:00 [facility] SARS-COV-2 COVID-19 2021-01-16 Completed Unive rsity of PFIZER VACCINE 00:00:00 [facility] SARS-COV-2 COVID-19 2021-01-16 Completed Unive rsity of PFIZER VACCINE 00:00:00 [facility] SARS-COV-2 COVID-19 2021-01-16 Completed Unive rsity of PFIZER VACCINE 00:00:00 [facility] SARS-COV-2 COVID-19 2021-01-16 Completed Unive rsity of PFIZER VACCINE 00:00:00 [facility] SARS-COV-2 COVID-19 2021-01-16 Completed Unive rsity of PFIZER VACCINE 00:00:00 [facility] SARS-COV-2 COVID-19 2021-01-16 Completed Unive rsity of PFIZER VACCINE 00:00:00 [facility] SARS-COV-2 COVID-19 2021-01-16 Completed Unive rsity of PFIZER VACCINE 00:00:00 [facility] SARS-COV-2 COVID-19 2021-01-16 Completed Unive rsity of PFIZER VACCINE 00:00:00 [facility] SARS-COV-2 COVID-19 2021-01-16 Completed Unive rsity of PFIZER VACCINE 00:00:00 [facility] SARS-COV-2 COVID-19 2021-01-16 Completed Unive rsity of PFIZER VACCINE 00:00:00 [facility] SARS-COV-2 COVID-19 2021-01-16 Completed Unive rsity of PFIZER VACCINE 00:00:00 [facility] SARS-COV-2 COVID-19 2021-01-16 Completed Unive rsity of PFIZER VACCINE 00:00:00 [facility] SARS-COV-2 COVID-19 2021-01-16 Completed Unive rsity of PFIZER VACCINE 00:00:00 [facility] SARS-COV-2 COVID-19 2021-01-16 Completed Unive rsity of PFIZER VACCINE 00:00:00 [facility] SARS-COV-2 COVID-19 2021-01-16 Completed Unive rsity of PFIZER VACCINE 00:00:00 [facility] SARS-COV-2 COVID-19 2021-01-16 Completed Unive rsity of PFIZER VACCINE 00:00:00 [facility] SARS-COV-2 COVID-19 2021-01-16 Completed Unive rsity of PFIZER VACCINE 00:00:00 [facility] SARS-COV-2 COVID-19 2021-01-16 Completed Unive rsity of PFIZER VACCINE 00:00:00 [facility] SARS-COV-2 COVID-19 2021-01-16 Completed Unive rsity of PFIZER VACCINE 00:00:00 [facility] SARS-COV-2 COVID-19 2021-01-16 Completed Unive rsity of PFIZER VACCINE 00:00:00 [facility] SARS-COV-2 COVID-19 2021-01-16 Completed Unive rsity of PFIZER VACCINE 00:00:00 [facility] SARS-COV-2 COVID-19 2021-01-16 Completed Unive rsity of PFIZER VACCINE 00:00:00 [facility] SARS-COV-2 COVID-19 2021-01-16 Completed Unive rsity of PFIZER VACCINE 00:00:00 [facility] SARS-COV-2 COVID-19 2021-01-16 Completed Unive rsity of PFIZER VACCINE 00:00:00 [facility] HEPATITIS A 2014-01-23 Completed [facility] 00:00:00 [facility] Heamophilus Influenza 2014-01-23 Completed Uni versity of B 00:00:[address] [facility] HEPATITIS A 2014-01-23 Completed [facility] 00:00:[address] [facility] Heamophilus Influenza 2014-01-23 Completed Uni vers[facility] of B 00:00:00 [facility] HEPATITIS A 2014-01-23 Completed [facility] of 00:00:[address] [facility] Heamophilus Influenza 2014-01-23 Completed Uni versity of B 00:00:[address] [facility] HEPATITIS A 2014-01-23 Completed [facility] 00:00:[address] [facility] Heamophilus Influenza 2014-01-23 Completed Uni versity of B 00:00:[address] [facility] HEPATITIS A 2014-01-23 Completed [facility] 00:00:[address] [facility] Heamophilus Influenza 2014-01-23 Completed Uni vers[facility] of B 00:00:[address] [facility] HEPATITIS A 2014-01-23 Completed [facility] 00:00:[address] [facility] Heamophilus Influenza 2014-01-23 Completed Uni versity of B 00:00:[address] [facility] HEPATITIS A 2014-01-23 Completed [facility] 00:00:[address] [facility] Heamophilus Influenza 2014-01-23 Completed [facility] versity of B 00:00:[address] [facility] HEPATITIS A 2014-01-23 Completed [facility] 00:00:[address] [facility] Heamophilus Influenza 2014-01-23 Completed [facility] B 00:00:[address] [facility] HEPATITIS A 2014-01-23 Completed [facility] of 00:00:[address] [facility] Heamophilus Influenza 2014-01-23 Completed [facility] B 00:00:[address] [facility] HEPATITIS A 2014-01-23 Completed [facility] of 00:00:[address] [facility] Heamophilus Influenza 2014-01-23 Completed [facility] B 00:00:[address] [facility] HEPATITIS A 2014-01-23 Completed [facility] of 00:00:[address] [facility] Heamophilus Influenza 2014-01-23 Completed [facility] vers[facility] B 00:00:[address] [facility] HEPATITIS A 2014-01-23 Completed [facility] of 00:00:[address] [facility] Heamophilus Influenza 2014-01-23 Completed [facility] vers[facility] of B 00:00:[address] [facility] HEPATITIS A 2014-01-23 Completed [facility] of 00:00:[address] [facility] Heamophilus Influenza 2014-01-23 Completed [facility] vers[facility] B 00:00:[address] [facility] HEPATITIS A 2014-01-23 Completed [facility] 00:00:00 [facility] Heamophilus Influenza 2014-01-23 Completed [facility] vers[facility] B 00:00:00 [facility] HEPATITIS A 2014-01-23 Completed [facility] of 00:00:[address] [facility] Heamophilus Influenza 2014-01-23 Completed [facility] vers[facility] of B 00:00:[address] [facility] HEPATITIS A 2014-01-23 Completed [facility] of 00:00:[address] [facility] Heamophilus Influenza 2014-01-23 Completed [facility] vers[facility] of B 00:00:[address] [facility] HEPATITIS A 2014-01-23 Completed [facility] of 00:00:[address] [facility] Heamophilus Influenza 2014-01-23 Completed [facility] vers[facility] B 00:00:[address] [facility] HEPATITIS A 2014-01-23 Completed [facility] of 00:00:[address] [facility] Heamophilus Influenza 2014-01-23 Completed [facility] vers[facility] of B 00:00:[address] [facility] HEPATITIS A 2014-01-23 Completed [facility] of 00:00:[address] [facility] Heamophilus Influenza 2014-01-23 Completed [facility] vers[facility] of B 00:00:[address] [facility] HEPATITIS A 2014-01-23 Completed [facility] of 00:00:[address] [facility] Heamophilus Influenza 2014-01-23 Completed [facility] B 00:00:[address] [facility] HEPATITIS A 2014-01-23 Completed [facility] of 00:00:[address] [facility] Heamophilus Influenza 2014-01-23 Completed [facility] vers[facility] B 00:00:[address] [facility] HEPATITIS A 2014-01-23 Completed [facility] of 00:00:[address] [facility] Heamophilus Influenza 2014-01-23 Completed [facility] versity of B 00:00:[address] [facility] HEPATITIS A 2014-01-23 Completed [facility] of 00:00:[address] [facility] Heamophilus Influenza 2014-01-23 Completed [facility] vers[facility] of B 00:00:[address] [facility] HEPATITIS A 2014-01-23 Completed [facility] of 00:00:[address] [facility] Heamophilus Influenza 2014-01-23 Completed [facility] vers[facility] of B 00:00:[address] [facility] HEPATITIS A 2014-01-23 Completed [facility] of 00:00:[address] [facility] Heamophilus Influenza 2014-01-23 Completed [facility] vers[facility] of B 00:00:[address] [facility] HEPATITIS A 2014-01-23 Completed [facility] 00:00:00 [facility] Heamophilus Influenza 2014-01-23 Completed [facility] vers[facility] of B 00:00:00 [facility] HEPATITIS A 2014-01-23 Completed [facility] of 00:00:[address] [facility] Heamophilus Influenza 2014-01-23 Completed [facility] vers[facility] B 00:00:00 [facility] HEPATITIS A 2014-01-23 Completed [facility] 00:00:00 [facility] Heamophilus Influenza 2014-01-23 Completed [facility] vers[facility] of B 00:00:[address] [facility] HEPATITIS A 2014-01-23 Completed [facility] 00:00:00 [facility] Heamophilus Influenza 2014-01-23 Completed [facility] vers[facility] B 00:00:00 [facility] HEPATITIS A 2014-01-23 Completed [facility] 00:00:00 [facility] Heamophilus Influenza 2014-01-23 Completed [facility] vers[facility] B 00:00:00 [facility] HEPATITIS A 2014-01-23 Completed [facility] 00:00:00 [facility] Heamophilus Influenza 2014-01-23 Completed [facility] vers[facility] B 00:00:00 [facility] HEPATITIS A 2014-01-23 Completed [facility] 00:00:00 [facility] Heamophilus Influenza 2014-01-23 Completed [facility] vers[facility] B 00:00:00 [facility] DTAP 2013-04-12 Completed [facility] 00:00:00 [facility] Polio (IPV/OPV) 2013-04-12 Completed [facility]it [facility] 00:00:00 [facility] Pneumococcal 7 2013-04-12 Completed [facility] of Conjugate, PCV7 00:00:00 [facility] (Pre[facility]ar[facility] DTAP 2013-04-12 Completed [facility] 00:00:00 [facility] Polio (IPV/OPV) 2013-04-12 Completed [facility]it [facility] 00:00:00 [facility] Pneumococcal 7 2013-04-12 Completed [facility] of Conjugate, PCV7 00:00:00 [facility] ical (Prevnar7) Branch DTAP 2013-04-12 Completed [facility] of 00:00:00 [facility] Polio (IPV/OPV) 2013-04-12 Completed [facility]it [facility] of 00:00:00 [facility] Pneumococcal 7 2013-04-12 Completed [facility] of Conjugate, PCV7 00:00:00 [facility] ical (Prevnar7) Branch [facility] 2013-04-12 Completed [facility] of 00:00:00 [facility] Polio (IPV/OPV) 2013-04-12 Completed [facility]it [facility] of 00:00:00 [facility] Pneumococcal 7 2013-04-12 Completed [facility] of Conjugate, PCV7 00:00:00 [facility] (Pre[facility] 2013-04-12 Completed [facility] 00:00:00 [facility] Polio (IPV/OPV) 2013-04-12 Completed [facility]it [facility] of 00:00:00 [facility] Pneumococcal 7 2013-04-12 Completed [facility] of Conjugate, PCV7 00:00:00 [facility] (Pre[facility]ar[facility] 2013-04-12 Completed [facility] 00:00:00 [facility] Polio (IPV/OPV) 2013-04-12 Completed [facility] 00:00:00 [facility] Pneumococcal 7 2013-04-12 Completed [facility] of Conjugate, PCV7 00:00:00 [facility] (Pre[facility]ar[facility] 2013-04-12 Completed [facility] 00:00:00 [facility] Polio (IPV/OPV) 2013-04-12 Completed [facility] 00:00:00 [facility] Pneumococcal 7 2013-04-12 Completed [facility] of Conjugate, PCV7 00:00:00 [facility] (Pre[facility]ar[facility] 2013-04-12 Completed [facility] 00:00:00 [facility] Polio (IPV/OPV) 2013-04-12 Completed [facility] 00:00:00 [facility] Pneumococcal 7 2013-04-12 Completed [facility] of Conjugate, PCV7 00:00:00 [facility] (Prevnar[facility] 2013-04-12 Completed [facility] 00:00:00 [facility] Polio (IPV/OPV) 2013-04-12 Completed [facility] 00:00:00 [facility] Pneumococcal 7 2013-04-12 Completed [facility] of Conjugate, PCV7 00:00:00 [facility] (Prevnar[facility] 2013-04-12 Completed [facility] 00:00:00 [facility] Polio (IPV/OPV) 2013-04-12 Completed [facility] of 00:00:00 [facility] Pneumococcal 7 2013-04-12 Completed [facility] of Conjugate, PCV7 00:00:00 [facility] (Prevnar7[facility] DTAP 2013-04-12 Completed [facility] 00:00:00 [facility] Polio (IPV/OPV) 2013-04-12 Completed [facility] 00:00:00 [facility] Pneumococcal 7 2013-04-12 Completed [facility] Conjugate, PCV7 00:00:00 [facility] (Pre[facility]ar[facility] 2013-04-12 Completed [facility] 00:00:00 [facility] Polio (IPV/OPV) 2013-04-12 Completed [facility] 00:00:00 [facility] Pneumococcal 7 2013-04-12 Completed [facility] Conjugate, PCV7 00:00:00 [facility] (Pre[facility]ar[facility] 2013-04-12 Completed [facility] 00:00:00 [facility] Polio (IPV/OPV) 2013-04-12 Completed [facility] 00:00:00 [facility] Pneumococcal 7 2013-04-12 Completed [facility] Conjugate, PCV7 00:00:00 [facility] (Prevnar[facility] 2013-04-12 Completed [facility] 00:00:00 [facility] Polio (IPV/OPV) 2013-04-12 Completed [facility] 00:00:00 [facility] Pneumococcal 7 2013-04-12 Completed [facility] of Conjugate, PCV7 00:00:00 [facility] (Pre[facility]ar[facility] 2013-04-12 Completed [facility] 00:00:00 [facility] Polio (IPV/OPV) 2013-04-12 Completed [facility] 00:00:00 [facility] Pneumococcal 7 2013-04-12 Completed [facility] Conjugate, PCV7 00:00:00 [facility] (Prevnar[facility] 2013-04-12 Completed [facility] 00:00:00 [facility] Polio (IPV/OPV) 2013-04-12 Completed [facility] 00:00:00 [facility] Pneumococcal 7 2013-04-12 Completed [facility] Conjugate, PCV7 00:00:00 [facility] (Prevnar[facility] 2013-04-12 Completed [facility] 00:00:00 [facility] Polio (IPV/OPV) 2013-04-12 Completed [facility] 00:00:00 [facility] Pneumococcal 7 2013-04-12 Completed [facility] Conjugate, PCV7 00:00:00 [facility] (Prevnar[facility] DTAP 2013-04-12 Completed [facility] 00:00:00 [facility] Polio (IPV/OPV) 2013-04-12 Completed [facility] 00:00:00 [facility] Pneumococcal 7 2013-04-12 Completed [facility] of Conjugate, PCV7 00:00:00 [facility] (Prevnar7[facility] DTAP 2013-04-12 Completed [facility] 00:00:00 [facility] Polio (IPV/OPV) 2013-04-12 Completed [facility] 00:00:00 [facility] Pneumococcal 7 2013-04-12 Completed [facility] Conjugate, PCV7 00:00:00 [facility] (Prevnar7[facility] DTAP 2013-04-12 Completed [facility] 00:00:00 [facility] Polio (IPV/OPV) 2013-04-12 Completed [facility] 00:00:00 [facility] Pneumococcal 7 2013-04-12 Completed [facility] Conjugate, PCV7 00:00:00 [facility] (Pre[facility]ar[facility] 2013-04-12 Completed [facility] 00:00:00 [facility] Polio (IPV/OPV) 2013-04-12 Completed [facility] 00:00:00 [facility] Pneumococcal 7 2013-04-12 Completed [facility] Conjugate, PCV7 00:00:00 [facility] (Pre[facility]ar[facility] 2013-04-12 Completed [facility] 00:00:00 [facility] Polio (IPV/OPV) 2013-04-12 Completed [facility] 00:00:00 [facility] Pneumococcal 7 2013-04-12 Completed [facility] of Conjugate, PCV7 00:00:00 [facility] (Prevnar[facility] DTAP 2013-04-12 Completed [facility] 00:00:00 [facility] Polio (IPV/OPV) 2013-04-12 Completed [facility] 00:00:00 [facility] Pneumococcal 7 2013-04-12 Completed [facility] Conjugate, PCV7 00:00:00 [facility] (Pre[facility]ar[facility] 2013-04-12 Completed [facility] 00:00:00 [facility] Polio (IPV/OPV) 2013-04-12 Completed [facility] 00:00:00 [facility] Pneumococcal 7 2013-04-12 Completed [facility] Conjugate, PCV7 00:00:00 [facility] (Prevnar[facility] DTAP 2013-04-12 Completed [facility] 00:00:00 [facility] Polio (IPV/OPV) 2013-04-12 Completed [facility] 00:00:00 [facility] Pneumococcal 7 2013-04-12 Completed [facility] Conjugate, PCV7 00:00:00 [facility] (Prevnar[facility]) [facility] DTAP 2013-04-12 Completed [facility] 00:00:00 [facility] Polio (IPV/OPV) 2013-04-12 Completed [facility] 00:00:00 [facility] Pneumococcal 7 2013-04-12 Completed [facility] Conjugate, PCV7 00:00:00 [facility] (Prevnar7) [facility] DTAP 2013-04-12 Completed [facility] 00:00:00 [facility] Polio (IPV/OPV) 2013-04-12 Completed [facility] 00:00:00 [facility] Pneumococcal 7 2013-04-12 Completed [facility] Conjugate, PCV7 00:00:00 [facility] (Prevnar7[facility] DT 2013-04-12 Completed [facility] 00:00:00 [facility] Polio (IPV/OPV) 2013-04-12 Completed [facility] 00:00:00 [facility] Pneumococcal 7 2013-04-12 Completed [facility] Conjugate, PCV7 00:00:00 [facility] (Prevnar7) [facility] DTAP 2013-04-12 Completed [facility] 00:00:00 [facility] Polio (IPV/OPV) 2013-04-12 Completed [facility] 00:00:00 [facility] Pneumococcal 7 2013-04-12 Completed [facility] Conjugate, PCV7 00:00:00 [facility] (Prevnar[facility] DTAP 2013-04-12 Completed [facility] 00:00:00 [facility] Polio (IPV/OPV) 2013-04-12 Completed [facility] 00:00:00 [facility] Pneumococcal 7 2013-04-12 Completed [facility] Conjugate, PCV7 00:00:00 [facility] (Prevnar7[facility] DTAP 2013-04-12 Completed [facility] 00:00:00 [facility] Polio (IPV/OPV) 2013-04-12 Completed [facility] 00:00:00 [facility] Pneumococcal 7 2013-04-12 Completed [facility] Conjugate, PCV7 00:00:00 [facility] (Prevnar7) [facility] DTAP 2013-04-12 Completed [facility] 00:00:00 [facility] Polio (IPV/OPV) 2013-04-12 Completed [facility] 00:00:00 [facility] Pneumococcal 7 2013-04-12 Completed [facility] Conjugate, PCV7 00:00:00 [facility] ([facility]ar[facility] DTAP 2013-04-12 Completed [facility] 00:00:00 [facility] Polio (IPV/OPV) 2013-04-12 Completed [facility] 00:00:00 [facility] Pneumococcal 7 2013-04-12 Completed [facility] of Conjugate, PCV7 00:00:00 [facility] (Prevnar7) [facility] AP 2013-04-12 Completed [facility] 00:00:00 [facility] Polio (IPV/OPV) 2013-04-12 Completed [facility] of 00:00:00 [facility] Pneumococcal 7 2013-04-12 Completed [facility] Conjugate, PCV7 00:00:00 [facility] (Prevnar7) [facility] DTAP 2013-04-12 Completed [facility] 00:00:00 [facility] Polio (IPV/OPV) 2013-04-12 Completed [facility] 00:00:00 [facility] Pneumococcal 7 2013-04-12 Completed [facility] Conjugate, PCV7 00:00:00 [facility] (Prevnar7) [facility] DTAP 2013-04-12 Completed [facility] 00:00:00 [facility] Polio (IPV/OPV) 2013-04-12 Completed [facility] 00:00:00 [facility] Pneumococcal 7 2013-04-12 Completed [facility] Conjugate, PCV7 00:00:00 [facility] (Prevnar7) [facility] DTAP 2013-04-12 Completed [facility] 00:00:00 [facility] Polio (IPV/OPV) 2013-04-12 Completed [facility] 00:00:00 [facility] Pneumococcal 7 2013-04-12 Completed [facility] Conjugate, PCV7 00:00:00 [facility] (Prevnar7) [facility] DTAP 2013-04-12 Completed [facility] 00:00:00 [facility] Polio (IPV/OPV) 2013-04-12 Completed [facility] 00:00:00 [facility] Pneumococcal 7 2013-04-12 Completed [facility] of Conjugate, PCV7 00:00:00 [facility] (Prevnar7) [facility] HEPATITIS A 2013-03-15 Completed [facility] of 00:00:00 [facility] Hep B, Adol or Pedi 2013-03-15 Completed Unive rsity of Dosage 00:00:00 [facility] Meningococcal 2013-03-15 Completed [facility] Polysaccharide 00:00:00 [facility] (groups A, C, Y and Branc h W-135) conjugate vaccine (MCV4P) HEPATITIS A 2013-03-15 Completed [facility] 00:00:00 [facility] Hep B, Adol or Pedi 2013-03-15 Completed Unive rsity of Dosage 00:00:00 [facility] Meningococcal 2013-03-15 Completed [facility] Polysaccharide 00:00:00 [facility] (groups A, C, Y and Branc h W-135) conjugate vaccine (MCV4P) HEPATITIS A 2013-03-15 Completed [facility] 00:00:00 [facility] Hep B, Adol or Pedi 2013-03-15 Completed Unive rsity of Dosage 00:00:00 [facility] Meningococcal 2013-03-15 Completed [facility] Polysaccharide 00:00:00 [facility] (groups A, C, Y and Branc h W-135) conjugate vaccine (MCV4P) HEPATITIS A 2013-03-15 Completed [facility] 00:00:00 [facility] Hep B, Adol or Pedi 2013-03-15 Completed Unive rsity of Dosage 00:00:00 [facility] Meningococcal 2013-03-15 Completed [facility] Polysaccharide 00:00:00 [facility] (groups A, C, Y and Branc h W-135) conjugate vaccine (MCV4P) HEPATITIS A 2013-03-15 Completed [facility] 00:00:00 [facility] Hep B, Adol or Pedi 2013-03-15 Completed Unive rsity of Dosage 00:00:00 [facility] Meningococcal 2013-03-15 Completed [facility] Polysaccharide 00:00:00 [facility] (groups A, C, Y and Branc h W-135) conjugate vaccine (MCV4P) HEPATITIS A 2013-03-15 Completed [facility] 00:00:00 [facility] Hep B, Adol or Pedi 2013-03-15 Completed Unive rsity of Dosage 00:00:00 [facility] Meningococcal 2013-03-15 Completed [facility] Polysaccharide 00:00:00 [place] [facility] (groups A, C, Y and Branc h W-135) conjugate vaccine (MCV4P) HEPATITIS A 2013-03-15 Completed [facility] 00:00:00 [facility] Hep B, Adol or Pedi 2013-03-15 Completed Unive rsity of Dosage 00:00:00 [facility] Meningococcal 2013-03-15 Completed [facility] Polysaccharide 00:00:00 [place] [facility] (groups A, C, Y and Branc h W-135) conjugate vaccine (MCV4P) HEPATITIS A 2013-03-15 Completed [facility] 00:00:00 [facility] Hep B, Adol or Pedi 2013-03-15 Completed Unive rsity of Dosage 00:00:00 [facility] Meningococcal 2013-03-15 Completed [facility] Polysaccharide 00:00:00 [place] [facility] (groups A, C, Y and Branc h W-135) conjugate vaccine (MCV4P) HEPATITIS A 2013-03-15 Completed [facility] 00:00:00 [facility] Hep B, Adol or Pedi 2013-03-15 Completed Unive rsity of Dosage 00:00:00 [facility] Meningococcal 2013-03-15 Completed [facility] Polysaccharide 00:00:00 [place] [facility] (groups A, C, Y and Branc h W-135) conjugate vaccine (MCV4P) HEPATITIS A 2013-03-15 Completed [facility] 00:00:00 [facility] Hep B, Adol or Pedi 2013-03-15 Completed Unive rsity of Dosage 00:00:00 [facility] Meningococcal 2013-03-15 Completed [facility] Polysaccharide 00:00:00 [place] [facility] (groups A, C, Y and Branc h W-135) conjugate vaccine (MCV4P) HEPATITIS A 2013-03-15 Completed [facility] 00:00:00 [facility] Hep B, Adol or Pedi 2013-03-15 Completed Unive rsity of Dosage 00:00:00 [facility] Meningococcal 2013-03-15 Completed [facility] Polysaccharide 00:00:00 [place] [facility] (groups A, C, Y and Branc h W-135) conjugate vaccine (MCV4P) HEPATITIS A 2013-03-15 Completed [facility] 00:00:00 [facility] Hep B, Adol or Pedi 2013-03-15 Completed Unive rsity of Dosage 00:00:00 [facility] Meningococcal 2013-03-15 Completed [facility] Polysaccharide 00:00:00 [place] [facility] (groups A, C, Y and Branc h W-135) conjugate vaccine (MCV4P) HEPATITIS A 2013-03-15 Completed [facility] 00:00:00 [facility] Hep B, Adol or Pedi 2013-03-15 Completed Unive rsity of Dosage 00:00:00 [facility] Meningococcal 2013-03-15 Completed [facility] Polysaccharide 00:00:00 [place] [facility] (groups A, C, Y and Branc h W-135) conjugate vaccine (MCV4P) HEPATITIS A 2013-03-15 Completed [facility] 00:00:00 [facility] Hep B, Adol or Pedi 2013-03-15 Completed Unive rsity of Dosage 00:00:00 [facility] Meningococcal 2013-03-15 Completed [facility] Polysaccharide 00:00:00 [place] [facility] (groups A, C, Y and Branc h W-135) conjugate vaccine (MCV4P) HEPATITIS A 2013-03-15 Completed [facility] 00:00:00 [facility] Hep B, Adol or Pedi 2013-03-15 Completed Unive rsity of Dosage 00:00:00 [facility] Meningococcal 2013-03-15 Completed [facility] Polysaccharide 00:00:00 [place] [facility] (groups A, C, Y and Branc h W-135) conjugate vaccine (MCV4P) HEPATITIS A 2013-03-15 Completed [facility] 00:00:00 [facility] Hep B, Adol or Pedi 2013-03-15 Completed Unive rsity of Dosage 00:00:00 [facility] Meningococcal 2013-03-15 Completed [facility] Polysaccharide 00:00:00 [place] [facility] (groups A, C, Y and Branc h W-135) conjugate vaccine (MCV4P) HEPATITIS A 2013-03-15 Completed [facility] 00:00:00 [facility] Hep B, Adol or Pedi 2013-03-15 Completed Unive rsity of Dosage 00:00:00 [facility] Meningococcal 2013-03-15 Completed [facility] Polysaccharide 00:00:00 [place] [facility] (groups A, C, Y and Branc h W-135) conjugate vaccine (MCV4P) HEPATITIS A 2013-03-15 Completed [facility] 00:00:00 [facility] Hep B, Adol or Pedi 2013-03-15 Completed Unive rsity of Dosage 00:00:00 [facility] Meningococcal 2013-03-15 Completed [facility] Polysaccharide 00:00:00 [place] [facility] (groups A, C, Y and Branc h W-135) conjugate vaccine (MCV4P) HEPATITIS A 2013-03-15 Completed [facility] 00:00:00 [facility] Hep B, Adol or Pedi 2013-03-15 Completed Unive rsity of Dosage 00:00:00 [facility] Meningococcal 2013-03-15 Completed [facility] Polysaccharide 00:00:00 [facility] (groups A, C, Y and Branc h W-135) conjugate vaccine (MCV4P) HEPATITIS A 2013-03-15 Completed [facility] 00:00:00 [facility] Hep B, Adol or Pedi 2013-03-15 Completed Unive rsity of Dosage 00:00:00 [facility] Meningococcal 2013-03-15 Completed [facility] Polysaccharide 00:00:00 [place] [facility] (groups A, C, Y and Branc h W-135) conjugate vaccine (MCV4P) HEPATITIS A 2013-03-15 Completed [facility] 00:00:00 [facility] [facility], Adol or Pedi 2013-03-15 Completed [facility]ive [facility]ity of Dosage 00:00:00 [facility] Meningococcal 2013-03-15 Completed [facility] Polysaccharide 00:00:00 [place] [facility] (groups A, C, Y and Branc h W-135) conjugate vaccine (MCV4P) HEPATITIS A 2013-03-15 Completed University of 00:00:00 [facility] Hep B, Adol or Pedi 2013-03-15 Completed [facility]ive rsity of Dosage 00:00:00 [facility] Meningococcal 2013-03-15 Completed [facility] Polysaccharide 00:00:00 [place] [facility] (groups A, C, Y and Branc h W-135) conjugate vaccine (MCV4P) HEPATITIS A 2013-03-15 Completed University of 00:00:00 [facility] Hep B, Adol or Pedi 2013-03-15 Completed [facility]ive rsity of Dosage 00:00:00 [facility] Meningococcal 2013-03-15 Completed [facility] Polysaccharide 00:00:00 [place] [facility] (groups A, C, Y and Branc h W-135) conjugate vaccine (MCV4P) HEPATITIS A 2013-03-15 Completed University of 00:00:00 [facility] Hep B, Adol or Pedi 2013-03-15 Completed [facility]ive rsity of Dosage 00:00:00 [facility] Meningococcal 2013-03-15 Completed [facility] Polysaccharide 00:00:00 [place] [facility] (groups A, C, Y and Branc h W-135) conjugate vaccine (MCV4P) HEPATITIS A 2013-03-15 Completed University of 00:00:00 [facility] Hep B, Adol or Pedi 2013-03-15 Completed [facility]ive rsity of Dosage 00:00:00 [facility] Meningococcal 2013-03-15 Completed [facility] Polysaccharide 00:00:00 [place] [facility] (groups A, C, Y and Branc h W-135) conjugate vaccine (MCV4P) HEPATITIS A 2013-03-15 Completed University of 00:00:00 [facility] Hep B, Adol or Pedi 2013-03-15 Completed [facility]ive rsity of Dosage 00:00:00 [facility] Meningococcal 2013-03-15 Completed [facility] Polysaccharide 00:00:00 [place] [facility] (groups A, C, Y and Branc h W-135) conjugate vaccine (MCV4P) HEPATITIS A 2013-03-15 Completed University of 00:00:00 [facility] Hep B, Adol or Pedi 2013-03-15 Completed [facility]ive rsity of Dosage 00:00:00 [facility] Meningococcal 2013-03-15 Completed [facility] Polysaccharide 00:00:00 [place] [facility] (groups A, C, Y and Branc h W-135) conjugate vaccine (MCV4P) HEPATITIS A 2013-03-15 Completed University of 00:00:00 [facility] Hep B, Adol or Pedi 2013-03-15 Completed [facility]ive rsity of Dosage 00:00:00 [facility] Meningococcal 2013-03-15 Completed [facility] Polysaccharide 00:00:00 [place] [facility] (groups A, C, Y and Branc h W-135) conjugate vaccine (MCV4P) HEPATITIS A 2013-03-15 Completed University of 00:00:00 [facility] Hep B, Adol or Pedi 2013-03-15 Completed [facility]ive rsity of Dosage 00:00:00 [facility] Meningococcal 2013-03-15 Completed [facility] Polysaccharide 00:00:00 [place] [facility] (groups A, C, Y and Branc h W-135) conjugate vaccine (MCV4P) HEPATITIS A 2013-03-15 Completed University of 00:00:00 [facility] Hep B, Adol or Pedi 2013-03-15 Completed [facility]ive rsity of Dosage 00:00:00 [facility] Meningococcal 2013-03-15 Completed [facility] Polysaccharide 00:00:00 [place] [facility] (groups A, C, Y and Branc h W-135) conjugate vaccine (MCV4P) HEPATITIS A 2013-03-15 Completed University of 00:00:00 [facility] Hep B, Adol or Pedi 2013-03-15 Completed [facility]ive rsity of Dosage 00:00:00 [facility] Meningococcal 2013-03-15 Completed [facility] Polysaccharide 00:00:00 [place] [facility] (groups A, C, Y and Branc h W-135) conjugate vaccine (MCV4P) HEPATITIS A 2013-03-15 Completed University of 00:00:00 [facility] Hep B, Adol or Pedi 2013-03-15 Completed [facility]ive rsity of Dosage 00:00:00 [facility] Meningococcal 2013-03-15 Completed [facility] Polysaccharide 00:00:00 [place] [facility] (groups A, C, Y and Branc h W-135) conjugate vaccine (MCV4P) HEPATITIS A 2013-03-15 Completed University of 00:00:00 [facility] Hep B, Adol or Pedi 2013-03-15 Completed [facility]ive rsity of Dosage 00:00:00 [facility] Meningococcal 2013-03-15 Completed [facility] Polysaccharide 00:00:00 [place] [facility] (groups A, C, Y and Branc h W-135) conjugate vaccine (MCV4P) HEPATITIS A 2013-03-15 Completed University of 00:00:00 [facility] Hep B, Adol or Pedi 2013-03-15 Completed [facility]ive rsity of Dosage 00:00:00 [facility] Meningococcal 2013-03-15 Completed [facility] Polysaccharide 00:00:00 [place] [facility] (groups A, C, Y and Branc h W-135) conjugate vaccine (MCV4P) HEPATITIS A 2013-03-15 Completed University of 00:00:00 [facility] Hep B, Adol or Pedi 2013-03-15 Completed [facility]ive rsity of Dosage 00:00:00 [facility] Meningococcal 2013-03-15 Completed [facility] Polysaccharide 00:00:00 [place] [facility] (groups A, C, Y and Branc h W-135) conjugate vaccine (MCV4P) HEPATITIS A 2013-03-15 Completed University of 00:00:00 [facility] Hep B, Adol or Pedi 2013-03-15 Completed [facility]ive rsity of Dosage 00:00:00 [facility] Meningococcal 2013-03-15 Completed [facility] Polysaccharide 00:00:00 [place] [facility] (groups A, C, Y and Branc h W-135) conjugate vaccine (MCV4P) HEPATITIS A 2013-03-15 Completed University of 00:00:00 [facility] Hep B, Adol or Pedi 2013-03-15 Completed [facility]ive rsity of Dosage 00:00:00 [facility] Meningococcal 2013-03-15 Completed [facility] Polysaccharide 00:00:00 [place] [facility] (groups A, C, Y and Branc h W-135) conjugate vaccine (MCV4P) HEPATITIS A 2013-03-15 Completed University of 00:00:00 [facility] Hep B, Adol or Pedi 2013-03-15 Completed [facility]ive rsity of Dosage 00:00:00 [facility] Meningococcal 2013-03-15 Completed [facility] Polysaccharide 00:00:00 [place] [facility] (groups A, C, Y and Branc h W-135) conjugate vaccine (MCV4P) Pneumococcal 13 2013-01-24 Completed Universit y of Conjugate, PCV13 00:00:00 [facility] dical (Prevnar 13) Branch HIB 4 Dose Schedule 2013-01-24 Completed Unive rsity of 00:00:00 [facility] Hep B, Dtap, Polio 2013-01-24 Completed Univer sity of 00:00:00 [facility] Pneumococcal 13 2013-01-24 Completed Universit y of Conjugate, PCV13 00:00:00 [facility] dical (Prevnar 13) Branch HIB 4 Dose Schedule 2013-01-24 Completed Unive rsity of 00:00:00 [facility] Hep B, Dtap, Polio 2013-01-24 Completed Univer sity of 00:00:00 [facility] Pneumococcal 13 2013-01-24 Completed Universit y of Conjugate, PCV13 00:00:00 [place] [facility] (Prevnar 13) [facility] HIB 4 Dose Schedule 2013-01-24 Completed Unive rsity of 00:00:00 [facility] Hep B, Dtap, Polio 2013-01-24 Completed Univer sity of 00:00:00 [facility] Pneumococcal 13 2013-01-24 Completed Universit y of Conjugate, PCV13 00:00:00 [place] [facility] (Prevnar 13) Branch HIB 4 Dose Schedule 2013-01-24 Completed Unive rsity of 00:00:00 [facility] Hep B, Dtap, Polio 2013-01-24 Completed Univer sity of 00:00:00 [facility] Pneumococcal 13 2013-01-24 Completed Universit y of Conjugate, PCV13 00:00:00 [facility] dical (Prevnar 13) Branch HIB 4 Dose Schedule 2013-01-24 Completed Unive rsity of 00:00:00 [facility] Hep B, Dtap, Polio 2013-01-24 Completed Univer sity of 00:00:00 [facility] Pneumococcal 13 2013-01-24 Completed Universit y of Conjugate, PCV13 00:00:00 [facility] dical (Prevnar 13) Branch HIB 4 Dose Schedule 2013-01-24 Completed Unive rsity of 00:00:00 [facility] Hep B, Dtap, Polio 2013-01-24 Completed Univer sity of 00:00:00 [facility] Pneumococcal 13 2013-01-24 Completed Universit y of Conjugate, PCV13 00:00:00 [facility] dical (Prevnar 13) Branch HIB 4 Dose Schedule 2013-01-24 Completed Unive rsity of 00:00:00 [facility] Hep B, Dtap, Polio 2013-01-24 Completed Univer sity of 00:00:00 [facility] Pneumococcal 13 2013-01-24 Completed Universit y of Conjugate, PCV13 00:00:00 [place] [facility] (Prevnar 13) Branch HIB 4 Dose Schedule 2013-01-24 Completed Unive rsity of 00:00:00 [facility] Hep B, Dtap, Polio 2013-01-24 Completed Univer sity of 00:00:00 [facility] Pneumococcal 13 2013-01-24 Completed Universit y of Conjugate, PCV13 00:00:00 [facility] dical (Prevnar 13) Branch HIB 4 Dose Schedule 2013-01-24 Completed Unive rsity of 00:00:00 [facility] Hep B, Dtap, Polio 2013-01-24 Completed Univer sity of 00:00:00 [facility] Pneumococcal 13 2013-01-24 Completed Universit y of Conjugate, PCV13 00:00:00 [place] [facility] (Prevnar 13) Branch HIB 4 Dose Schedule 2013-01-24 Completed Unive rsity of 00:00:00 [facility] Hep B, Dtap, Polio 2013-01-24 Completed Univer sity of 00:00:00 [facility] Pneumococcal 13 2013-01-24 Completed Universit y of Conjugate, PCV13 00:00:00 [place] [facility] (Prevnar 13) Branch HIB 4 Dose Schedule 2013-01-24 Completed Unive rsity of 00:00:00 [facility] Hep B, Dtap, Polio 2013-01-24 Completed Univer sity of 00:00:00 [facility] Pneumococcal 13 2013-01-24 Completed Universit y of Conjugate, PCV13 00:00:00 [facility] dical (Prevnar 13) Branch HIB 4 Dose Schedule 2013-01-24 Completed Unive rsity of 00:00:00 [facility] Hep B, Dtap, Polio 2013-01-24 Completed Univer sity of 00:00:00 [facility] Pneumococcal 13 2013-01-24 Completed Universit y of Conjugate, PCV13 00:00:00 [place] [facility] (Prevnar 13) Branch HIB 4 Dose Schedule 2013-01-24 Completed Unive rsity of 00:00:00 [facility] Hep B, Dtap, Polio 2013-01-24 Completed Univer sity of 00:00:00 [facility] Pneumococcal 13 2013-01-24 Completed Universit y of Conjugate, PCV13 00:00:00 [place] [facility] (Prevnar 13) Branch HIB 4 Dose Schedule 2013-01-24 Completed Unive rsity of 00:00:00 [facility] Hep B, Dtap, Polio 2013-01-24 Completed Univer sity of 00:00:00 [facility] Pneumococcal 13 2013-01-24 Completed Universit y of Conjugate, PCV13 00:00:00 [facility] dical (Prevnar 13) Branch HIB 4 Dose Schedule 2013-01-24 Completed Unive rsity of 00:00:00 [facility] Hep B, Dtap, Polio 2013-01-24 Completed Univer sity of 00:00:00 [facility] Pneumococcal 13 2013-01-24 Completed Universit y of Conjugate, PCV13 00:00:00 [place] [facility] (Prevnar 13) Branch HIB 4 Dose Schedule 2013-01-24 Completed Unive rsity of 00:00:00 [facility] Hep B, Dtap, Polio 2013-01-24 Completed Univer sity of 00:00:00 [facility] Pneumococcal 13 2013-01-24 Completed Universit y of Conjugate, PCV13 00:00:00 [place] [facility] (Prevnar 13) Branch HIB 4 Dose Schedule 2013-01-24 Completed Unive rsity of 00:00:00 [facility] Hep B, Dtap, Polio 2013-01-24 Completed Univer sity of 00:00:00 [facility] Pneumococcal 13 2013-01-24 Completed Universit y of Conjugate, PCV13 00:00:00 [place] [facility] (Prevnar 13) Branch HIB 4 Dose Schedule 2013-01-24 Completed Unive rsity of 00:00:00 [facility] Hep B, Dtap, Polio 2013-01-24 Completed Univer sity of 00:00:00 [facility] Pneumococcal 13 2013-01-24 Completed Universit y of Conjugate, PCV13 00:00:00 [facility] dical (Prevnar 13) Branch HIB 4 Dose Schedule 2013-01-24 Completed Unive rsity of 00:00:00 [facility] Hep B, Dtap, Polio 2013-01-24 Completed Univer sity of 00:00:00 [facility] Pneumococcal 13 2013-01-24 Completed Universit y of Conjugate, PCV13 00:00:00 [place] [facility] (Prevnar 13) Branch HIB 4 Dose Schedule 2013-01-24 Completed Unive rsity of 00:00:00 [facility] Hep B, Dtap, Polio 2013-01-24 Completed Univer sity of 00:00:00 [facility] Pneumococcal 13 2013-01-24 Completed Universit y of Conjugate, PCV13 00:00:00 [place] [facility] (Prevnar 13) Branch HIB 4 Dose Schedule 2013-01-24 Completed Unive rsity of 00:00:00 [facility] Hep B, Dtap, Polio 2013-01-24 Completed Univer sity of 00:00:00 [facility] Pneumococcal 13 2013-01-24 Completed Universit y of Conjugate, PCV13 00:00:00 [place] [facility] (Prevnar 13) Branch HIB 4 Dose Schedule 2013-01-24 Completed Unive rsity of 00:00:00 [facility] Hep B, Dtap, Polio 2013-01-24 Completed Univer sity of 00:00:00 [facility] Pneumococcal 13 2013-01-24 Completed Universit y of Conjugate, PCV13 00:00:00 [facility] dical (Prevnar 13) Branch HIB 4 Dose Schedule 2013-01-24 Completed Unive rsity of 00:00:00 [facility] Hep B, Dtap, Polio 2013-01-24 Completed Univer sity of 00:00:00 [facility] Pneumococcal 13 2013-01-24 Completed Universit y of Conjugate, PCV13 00:00:00 [place] [facility] (Prevnar 13) Branch HIB 4 Dose Schedule 2013-01-24 Completed Unive rsity of 00:00:00 [facility] Hep B, Dtap, Polio 2013-01-24 Completed Univer sity of 00:00:00 [facility] Pneumococcal 13 2013-01-24 Completed Universit y of Conjugate, PCV13 00:00:00 [facility] dical (Prevnar 13) Branch HIB 4 Dose Schedule 2013-01-24 Completed Unive rsity of 00:00:00 [facility] Hep B, Dtap, Polio 2013-01-24 Completed Univer sity of 00:00:00 [facility] Pneumococcal 13 2013-01-24 Completed Universit y of Conjugate, PCV13 00:00:00 [facility] dical (Prevnar 13) Branch HIB 4 Dose Schedule 2013-01-24 Completed Unive rsity of 00:00:00 [facility] Hep B, Dtap, Polio 2013-01-24 Completed Univer sity of 00:00:00 [facility] Pneumococcal 13 2013-01-24 Completed Universit y of Conjugate, PCV13 00:00:00 [facility] dical (Prevnar 13) Branch HIB 4 Dose Schedule 2013-01-24 Completed Unive rsity of 00:00:00 [facility] Hep B, Dtap, Polio 2013-01-24 Completed Univer sity of 00:00:00 [facility] Pneumococcal 13 2013-01-24 Completed Universit y of Conjugate, PCV13 00:00:00 [place] [facility] (Prevnar 13) Branch HIB 4 Dose Schedule 2013-01-24 Completed Unive rsity of 00:00:00 [facility] Hep B, Dtap, Polio 2013-01-24 Completed Univer sity of 00:00:00 [facility] Pneumococcal 13 2013-01-24 Completed Universit y of Conjugate, PCV13 00:00:00 [facility] dical (Prevnar 13) Branch HIB 4 Dose Schedule 2013-01-24 Completed Unive rsity of 00:00:00 [facility] Hep B, Dtap, Polio 2013-01-24 Completed Univer sity of 00:00:00 [facility] Pneumococcal 13 2013-01-24 Completed Universit y of Conjugate, PCV13 00:00:00 [facility] dical (Prevnar 13) Branch HIB 4 Dose Schedule 2013-01-24 Completed Unive rsity of 00:00:00 [facility] Hep B, Dtap, Polio 2013-01-24 Completed Univer sity of 00:00:00 [facility] Pneumococcal 13 2013-01-24 Completed Universit y of Conjugate, PCV13 00:00:00 [facility] dical (Prevnar 13) Branch HIB 4 Dose Schedule 2013-01-24 Completed Unive rsity of 00:00:00 [facility] Hep B, Dtap, Polio 2013-01-24 Completed Univer sity of 00:00:00 [facility] Pneumococcal 13 2013-01-24 Completed Universit y of Conjugate, PCV13 00:00:00 [facility] dical (Prevnar 13) Branch HIB 4 Dose Schedule 2013-01-24 Completed Unive rsity of 00:00:00 [facility] Hep B, Dtap, Polio 2013-01-24 Completed Univer sity of 00:00:00 [facility] Pneumococcal 13 2013-01-24 Completed Universit y of Conjugate, PCV13 00:00:00 [facility] dical (Prevnar 13) Branch HIB 4 Dose Schedule 2013-01-24 Completed Unive rsity of 00:00:00 [facility] Hep B, Dtap, Polio 2013-01-24 Completed Univer sity of 00:00:00 [facility] Pneumococcal 13 2013-01-24 Completed Universit y of Conjugate, PCV13 00:00:00 [place] [facility] (Prevnar 13) Branch HIB 4 Dose Schedule 2013-01-24 Completed Unive rsity of 00:00:00 [facility] Hep B, Dtap, Polio 2013-01-24 Completed Univer sity of 00:00:00 [facility] Pneumococcal 13 2013-01-24 Completed Universit y of Conjugate, PCV13 00:00:00 [place] [facility] (Prevnar 13) Branch HIB 4 Dose Schedule 2013-01-24 Completed Unive rsity of 00:00:00 [facility] Hep B, Dtap, Polio 2013-01-24 Completed Univer sity of 00:00:00 [facility] Pneumococcal 13 2013-01-24 Completed Universit y of Conjugate, PCV13 00:00:00 [place] [facility] (Prevnar 13) Branch HIB 4 Dose Schedule 2013-01-24 Completed Unive rsity of 00:00:00 [facility] Hep B, Dtap, Polio 2013-01-24 Completed Univer sity of 00:00:00 [facility] Pneumococcal 13 2013-01-24 Completed Universit y of Conjugate, PCV13 00:00:00 [place] [facility] (Prevnar 13) Branch HIB 4 Dose Schedule 2013-01-24 Completed Unive rsity of 00:00:00 [facility] Hep B, Dtap, Polio 2013-01-24 Completed Univer sity of 00:00:00 [facility] Pneumococcal 13 2013-01-24 Completed Universit y of Conjugate, PCV13 00:00:00 [place] [facility] (Prevnar 13) Branch HIB 4 Dose Schedule 2013-01-24 Completed Unive rsity of 00:00:00 [facility] Hep B, Dtap, Polio 2013-01-24 Completed Univer sity of 00:00:00 [facility] Vital Signs Vital Name Observation Time Observation Value Comments Source Body weight 2023-04-21 21:27:00 70.398 kg [facility] BMI 2023-04-21 21:27:00 25.83 kg/m2 [facility] Systolic blood 2023-04-21 21:27:00 144 mm[Hg] Univer sity of pressure [facility] Diastolic blood 2023-04-21 21:27:00 96 mm[Hg] Unive rsity of pressure [facility] Heart rate 2023-04-21 21:27:00 103 /min [facility] Body height 2023-04-21 21:27:00 165.1 cm [facility] Systolic blood 2023-04-13 19:32:00 115 mm[Hg] Univer sity of pressure [facility] Diastolic blood 2023-04-13 19:32:00 74 mm[Hg] Unive rsity of pressure [facility] Heart rate 2023-04-13 19:32:00 79 /min [facility] Body height 2023-04-13 19:32:00 165.1 cm [facility] Body weight 2023-04-13 19:32:00 70.308 kg [facility] BMI 2023-04-13 19:32:00 25.79 kg/m2 [facility] Oxygen saturation in 2023-04-13 19:32:00 98 /min [facility] of Arterial blood by [facility] [employer] [place] [facility] Pulse oximetry [facility] Systolic blood 2023-03-31 19:23:00 110 mm[Hg] Univer sity of pressure [facility] Diastolic blood 2023-03-31 19:23:00 75 mm[Hg] Unive rsity of pressure [facility] Heart rate 2023-03-31 19:23:00 99 /min [facility] Body height 2023-03-31 19:23:00 165.1 cm [facility] Body weight 2023-03-31 19:23:00 70.398 kg [facility] BMI 2023-03-31 19:23:00 25.83 kg/m2 [facility] Oxygen saturation in 2023-03-31 19:23:00 97 /min University of Arterial blood by [employer] [facility] Pulse oximetry Branch Systolic blood 2023-03-24 14:42:00 129 mm[Hg] Univer sity of pressure [facility] Diastolic blood 2023-03-24 14:42:00 87 mm[Hg] Unive rsity of pressure [facility] Heart rate 2023-03-24 14:42:00 90 /min [facility] Body temperature 2023-03-24 14:42:00 36.72 [place] [facility] Respiratory rate 2023-03-24 14:42:00 18 /min [facility] Body height 2023-03-24 14:42:00 165.1 cm [facility] Body weight 2023-03-24 14:42:00 68.629 kg [facility] BMI 2023-03-24 14:42:00 25.18 kg/m2 [facility] Oxygen saturation in 2023-03-24 14:42:00 99 /min [facility] of Arterial blood by [facility]io Pulse oximetry Branch Systolic blood 2022-10-07 20:47:00 124 mm[Hg] Univer sity of pressure [facility] Diastolic blood 2022-10-07 20:47:00 86 mm[Hg] Unive rsity of pressure [facility] Heart rate 2022-10-07 20:47:00 101 /min [facility] Body height 2022-10-07 20:47:00 165.1 cm [facility] Body weight 2022-10-07 20:47:00 69.264 kg [facility] BMI 2022-10-07 20:47:00 25.41 kg/m2 [facility] Oxygen saturation in 2022-10-07 20:47:00 94 /min [facility] of Arterial blood by [facility] Pulse oximetry Branch Systolic blood 2022-08-05 19:18:00 128 mm[Hg] Univer sity of pressure [facility] Diastolic blood 2022-08-05 19:18:00 81 mm[Hg] Unive rsity of pressure [facility] Heart rate 2022-08-05 19:18:00 110 /min [facility] Respiratory rate 2022-08-05 19:18:00 23 /min [facility] Body height 2022-08-05 19:18:00 165.1 cm [facility] Body weight 2022-08-05 19:18:00 70.308 kg [facility] BMI 2022-08-05 19:18:00 25.79 kg/m2 [facility] Oxygen saturation in 2022-08-05 19:18:00 97 /min [facility] of Arterial blood by [facility] fl[facility]ncio Pulse oximetry Branch Systolic blood 2022-08-04 18:34:00 125 mm[Hg] Univer sity of pressure [facility] Diastolic blood 2022-08-04 18:34:00 84 mm[Hg] Unive rsity of pressure [facility] Heart rate 2022-08-04 18:34:00 96 /min [facility] Body height 2022-08-04 18:34:00 165.1 cm [facility] Body weight 2022-08-04 18:34:00 70.625 kg [facility] BMI 2022-08-04 18:34:00 25.91 kg/m2 [facility] Oxygen saturation in 2022-08-04 18:34:00 97 /min University of Arterial blood by [facility] Pulse oximetry Branch Systolic blood 2022-07-05 16:31:00 128 mm[Hg] Univer sity of pressure [facility] Diastolic blood 2022-07-05 16:31:00 86 mm[Hg] Unive rsity of pressure [facility] Heart rate 2022-07-05 16:31:00 93 /min [facility] Body height 2022-07-05 16:31:00 165.1 cm [facility] Body weight 2022-07-05 16:31:00 67.722 kg [facility] BMI 2022-07-05 16:31:00 24.84 kg/m2 [facility] Oxygen saturation in 2022-07-05 16:31:00 99 /min [facility] of Arterial blood by [facility] Pulse oximetry Branch Procedures Procedure Date / Time Performing Clinician Source Performed MEDICAL RELEASE/CLEARANCE 2023-03-31 05:01:00 Doctor Alexusssigned, [facility] FORMS [facility] ASSIGNMENT OF BENEFITS 2022-10-07 20:44:49 Doctor Unassnikita, [facility] [place] [facility] INSURANCE CORRESPONDENCE 2022-08-16 06:01:00 Doctor Unassigned, [facility] [place] [facility] POCT HEMOGLOBIN A1C TEST 2022-08-04 20:25:00 AneEmre armenta [facility] Encounters Start End Encounter Admission Attending Care Care Encounter Source Date/Time Date/Time Type Type Clinicians Facility Department ID 2023-07-18 2023-07-18 Outpatient R TARAN [facility] [id number] Univers 11:30:00 11:30:00 JOSE jerrynakul [facility] 2023-04-27 2023-04-27 Outpatient [facility] [id number] Univers 14:30:00 14:30:00 EMRE gant [facility] 2023-04-21 2023-04-21 Outpatient R DAX [facility] [id number] Univers 16:30:00 17:06:39 RICHARD gant [facility] 2023-04-21 2023-04-21 [facility] 1..500.963 [id number] Univers 16:30:00 17:06:39 Visit Richard Beltre [place] 350.1.13.10 it y of [place] 4.2.7.2.686 Scooter as PITO?BLEA [phone] Ri dicksg SMITH 220 [facility] OFFICE [facility] 2023-04-21 2023-04-21 Letter [facility] 1.2.143.273 [id number] Univers 00:00:00 00:00:00 (Out) Richard Beltre [place] 350.1.13.10 it y of [place] 4.2.7.2.686 Scooter as PITO?BLEA [id number] Ri dicksg SMITH 220 [facility] OFFICE [facility] 2023-04-13 2023-04-13 Outpatient R ELVIA [facility] [id number] Univers 14:30:00 15:12:55 EMRE gant [facility] 2023-04-13 2023-04-13 Office [facility] 1.2.840.114 [id number] Univers 14:30:00 15:12:55 [facility] 350.1.13.10 it y of [place] 4.2.7.2.686 Scooter as PITO?BLEA [phone] Ri dicksg FORD 044 [facility] OFFICE [facility] 2023-04-13 2023-04-13 Letter [facility] 1.2.840.114 [id number] Univers 00:00:00 00:00:00 (Out) Emre HEALTH 350.1.13.10 it y of [place] 4.2.7.2.686 Scooter as PITO?BLEA [id number] Ri noel SMITH [address] MEDICAL OFFICE [facility] 2023-04-03 2023-04-03 Patient Doctor ILESTEFANIA 1.2.840.114 [id number] Univers 00:00:00 00:00:00 Secure Msg Unassigned, HEALTH 350.1.13.10 ity of [place] 4.2.7.2.686 Scooter as PITO?BLEA [phone] Ri noel SMITH [address] [place] [address] OFFICE [facility] 2023-03-31 2023-03-31 Telehealth Coordinator Lab, [place] - Brendan [facility] 1.2.840.1 14 [id number] Univers 15:15:00 15:34:55 Visit Kirsten Ganthia HEALTH 350.1.13.10 ity of [facility] 4.2.7.2.686 Scooter as PITO?BLEA [id number] Ri noel SMITH [address] MEDICAL OFFICE [facility] 2023-03-31 2023-03-31 Outpatient R ELVIA [facility] [id number] Univers 14:00:00 15:08:45 EMRE ity of [facility] 2023-03-31 2023-03-31 Office Elvia [facility] 1.2.840.114 [id number] Univers 14:00:00 15:08:45 Visit Emre HEALTH 350.1.13.10 it y of [facility] 4.2.7.2.686 Scooter as PITO?BLEA [phone] Ri noel SMITH [address] [place] [address] MEDICAL OFFICE [facility] 2023-03-31 2023-03-31 Letter Elvia [facility] 1.2.840.114 [id number] Univers 00:00:00 00:00:00 (Out) Emre HEALTH 350.1.13.10 it y of [place] 4.2.7.2.686 Scooter as PITO?BLEA [phone] Ri noel SMITH [address] [place] [address] MEDICAL OFFICE [facility] 2023-03-31 2023-03-31 Orders Doctor JEFFERY 1.2.840.114 [id number] Univers 00:00:00 00:00:00 Only Unassigned, GABO 350.1.13.10 ity of [place] [facility] 4.2.7.2.686 Scooter as [phone] [address] 2023-03-29 2023-03-29 Outpatient [facility] [id number] Univers 13:00:00 13:00:00 MELLY gant [facility] 2023-03-24 2023-03-24 [facility] 1.2.840.114 [id number] Univers 09:30:00 10:00:00 Visit Melly A HEALTH 350.1.13.10 i ty of [place] 4.2.7.2.686 Scooter as PITO?BLEA [id number] [address] OFFICE [facility] 2023-03-24 2023-03-24 [facility] [id number] Univers 09:30:00 09:30:00 MELLY gant [facility] 2023-03-24 2023-03-24 Letter [facility] 1.2.840.114 [id number] Univers 00:00:00 00:00:00 (Out) Melly A HEALTH 350.1.13.10 i ty of [place] 4.2.7.2.686 Scooter as PITO?BLEA [phone] [address] OFFICE [facility] 2023-03-24 2023-03-24 Letter [facility] 1.2.840.114 [id number] Univers 00:00:00 00:00:00 (Out) Melly A HEALTH 350.1.13.10 i ty of [place] 4.2.7.2.686 Scooter as PITO?BLEA [phone] [address] OFFICE [facility] 2023-03-21 2023-03-21 Telephone Elvia [facility] 1.2.661.525 [id number] Univers 00:00:00 00:00:00 Emre HEALTH 350.1.13.10 it y of [place] 4.2.7.2.686 Scooter as PITO?BLEA [phone] Ri dical SARAH [address] MEDICAL OFFICE [facility] 2023-03-17 2023-03-17 Outpatient [facility] [id number] Univers 15:30:00 15:30:00 RICHARD gant [facility] 2023-02-26 2023-02-26 Refpremier health [facility] 1.2.840.114 [id number] Univers 00:00:00 00:00:00 Emre HEALTH 350.1.13.10 it y of [place] 4.2.7.2.686 Scooter as PITO?BLEA [id number] Ri dicsg SMITH 044 [facility] OFFICE [facility] 2023-02-21 2023-02-21 Telephone [facility] 1.2.840.114 10 [id number] Univers 00:00:00 00:00:00 Richard HEALTH 350.1.13.10 it y of [place] 4.2.7.2.686 Scooter as PITO?BLEA [phone] Ri dicsg SMITH 220 [facility] OFFICE [facility] 2023-01-19 2023-01-19 Telephone [facility] 1.2.607.097 [id number] Univers 00:00:00 00:00:00 Emre HEALTH 350.1.13.10 it y of [place] 4.2.7.2.686 Scooter as PITO?BLEA [id number] Ri dicsg SMITH 044 [facility] 2023-01-09 2023-01-09 [facility] 1.2.840.114 [id number] Univers 00:00:00 00:00:00 Emre HEALTH 350.1.13.10 it y of [place] 4.2.7.2.686 Scooter as IPTO?BLEA [id number] Ri dical SARAH 044 [facility] OFFICE [facility] 2022-10-18 2022-10-18 Refpremier health [facility] 1.2.840.114 [id number] Univers 00:00:00 00:00:00 Emre HEALTH 350.1.13.10 it y of [place] 4.2.7.2.686 Scooter as PITO?BLEA [phone] [facility] [address] MEDICAL OFFICE [facility] 2022-10-07 2022-10-07 Outpatient R DAX [facility] [id number] Univers 15:00:00 15:46:19 RICHARD gant of [facility] 2022-10-07 2022-10-07 Office [facility] 1.2.539.726 [id number] Univers 15:00:00 15:46:19 Visit Richard HEALTH 350.1.13.10 it y of [place] 4.2.7.2.686 Scooter as PITO?BLEA [phone] [facility] 220 [facility] OFFICE [facility] 2022-10-07 2022-10-07 Orders Doctor JEFFERY 1.2.840.114 [id number] Univers 00:00:00 00:00:00 Only Unassigned, GABO 350.1.13.10 ity of [place] [facility] 4.2.7.2.686 Scooter as [phone] [address] 2022-09-15 2022-09-15 [facility]i [facility] 1.2.769.950 [id number] Univers 00:00:00 00:00:00 Emre HEALTH 350.1.13.10 it y of [place] 4.2.7.2.686 Scooter as PITO?BLEA [phone] [address] OFFICE [facility] 2022-08-25 2022-08-25 Outpatient R ABNER [facility] [id number] Univers 15:48:17 23:59:00 ROSEANNE ferro [facility] 2022-08-16 2022-08-16 Orders Doctor JEFFERY 1.2.840.114 [id number] Univers 00:00:00 00:00:00 Only Unassigned, GABO 350.1.13.10 ity of [place] [facility] 4.2.7.2.686 Scooter as [id number] [address] 2022-08-05 2022-08-05 Outpatient [facility] [id number] Univers 14:00:00 14:39:02 ROSEANNE ferro [facility] 2022-08-05 2022-08-05 Office [facility] 1.2.840.114 [id number] Univers 14:00:00 14:39:02 Visit Roseanne ALBERTSTON 350.1.13.10 ity of [place] 4.2.7.2.686 [place]YNAIO [phone] Ri noel GUTIERREZ 059 [facility] 2022-08-04 2022-08-04 Outpatient R [facility] [id number] Univers 13:30:00 14:59:51 EMRE itnakul [facility] 2022-08-04 2022-08-04 [facility] 1.2.840.114 [id number] Univers 13:30:00 14:59:51 Visit Emre HEALTH 350.1.13.10 it y of [place] 4.2.7.2.686 Scooter as PITO?BLEA [id number] [address] OFFICE [facility] 2022-07-19 2022-07-19 Refjose [facility] 1.2.840.114 [id number] Univers 00:00:00 00:00:00 Luis Miguel HEALTH 350.1.13.10 it y of [place] 4.2.7.2.686 Scooter as PITO?BLEA [phone] [address] 2022-07-05 2022-07-05 Outpatient R [facility] [id number] Univers 11:30:00 11:46:02 EMRE gant [facility] 2022-07-05 2022-07-05 Office [facility] 1.2.840.114 [id number] Univers 11:30:00 11:46:02 Visit Emre HEALTH 350.1.13.10 it y of [place] 4.2.7.2.686 Scooter as PITO?BLEA [phone] [address] OFFICE [facility] 2022-07-05 2022-07-05 Telephone [facility] 1.2.822.203 [id number] Univers 00:00:00 00:00:00 Emre HEALTH 350.1.13.10 it y of [place] 4.2.7.2.686 Scooter as PITO?BLEA [phone] Ri noel SMITH [address] MEDICAL OFFICE BUILDING 2022-06-28 2022-06-28 Telephone Elvia [facility] 1.2.595.531 [id number] Univers 00:00:00 00:00:00 Emre HEALTH 350.1.13.10 it y of [place] 4.2.7.2.686 Scooter as PITO?BLEA [phone] Ri noel SMITH [address] [place] [address] MEDICAL OFFICE [facility] 2022-06-22 2022-06-22 Telephone Elvia [facility] 1.2.080.090 [id number] Univers 00:00:00 00:00:00 Emre HEALTH 350.1.13.10 it y of [place] 4.2.7.2.686 Scooter as PITO?BLEA [phone] Ri noel FORD[address] MEDICAL OFFICE [facility] 2022-06-21 2022-06-21 Case Oneilbelenm, [facility] 1.2.840.114 [id number] Univers 00:00:00 00:00:00 Management Rania HEALTH 350.1.13.10 ity of [place] 4.2.7.2.686 Scooter as PITO?BLEA [phone] [facility] SMITH [address] [place] [address] MEDICAL OFFICE [facility] 2022-06-21 2022-06-21 Case Oneilbelenm, [facility] 1.2.840.114 [id number] Univers 00:00:00 00:00:00 Management Rania HEALTH 350.1.13.10 ity of [place] 4.2.7.2.686 Scooter as PITO?BLEA [phone] Ri noel SMITH [address] [place] [address] MEDICAL OFFICE BUILDING 2022-06-21 2022-06-21 Case Hetalm, [facility] 1.2.840.114 [id number] Univers 00:00:00 00:00:00 Management Rania HEALTH 350.1.13.10 ity of [place] 4.2.7.2.686 Scooter as PITO?BLEA [phone] [facility] [address] MEDICAL OFFICE BUILD[facility] 2022-06-20 2022-06-20 Telehealth Coordinator Lab, Ang - Db [facility] 1.2.840.1 14 [id number] Univers 12:00:00 12:14:16 Visit Emre Gan HEALTH 350.1.13.10 ity of [place] 4.2.7.2.686 Csooter as PITO?BLEA [id number] [address] OFFICE [facility] 2022-06-20 2022-06-20 Telehealth Coordinator Lab, Ang - Db [facility] 1.2.840.1 14 [id number] [facility] 12:00:00 12:14:16 Visit Emre Gan HEALTH 350.1.13.10 ity of [place] 4.2.7.2.686 Scooter as PITO?BLEA [phone] [address] OFFICE [facility] 2022-06-20 2022-06-20 Telehealth Coordinator Lab, Ang - Db [facility] 1.2.840.1 14 [id number] [facility] 12:00:00 12:14:16 Visit Emre Gan HEALTH 350.1.13.10 ity of [place] 4.2.7.2.686 Scooter as PITO?BLEA [phone] [address] OFFICE [facility] 2022-06-20 2022-06-20 Outpatient R SENDYCAROLA, [facility] [id number] Univers 11:30:00 11:47:22 EMRE ity [facility] 2022-06-20 2022-06-20 Office Elvia, [facility] 1.2.840.114 [id number] Univers 11:30:00 11:47:22 Visit Emre HEALTH 350.1.13.10 it y of [place] 4.2.7.2.686 Scooter as PITO?BLEA [phone] [address] OFFICE [facility] 2022-06-20 2022-06-20 Outpatient R ELVIA, [facility] [id number] Univers 11:30:00 11:47:22 EMRE ity of [facility] 2022-06-20 2022-06-20 Office Elvia, [facility] 1.2.840.114 [id number] Univers 11:30:00 11:47:22 Visit Emre HEALTH 350.1.13.10 it y of [place] 4.2.7.2.686 Scooter as PITO?BLEA [phone] Ri noel [address] MEDICAL OFFICE [facility] 2022-06-20 2022-06-20 Outpatient R ELVIA [facility] [id number] Univers 11:30:00 11:47:22 EMRE gant of [facility] 2022-06-20 2022-06-20 Letter [facility] 1.2.840.114 [id number] Univers 00:00:00 00:00:00 (Out) Emre HEALTH 350.1.13.10 it y of [place] 4.2.7.2.686 Scooter as PITO?BLEA [id number] Ri noel [address] OFFICE [facility] 2022-06-20 2022-06-20 Telephone [facility] 1.2.145.170 [id number] Univers 00:00:00 00:00:00 Emre HEALTH 350.1.13.10 it y of [place] 4.2.7.2.686 Scooter as PITO?BLEA [phone] [facility] [address] OFFICE [facility] 2022-06-20 2022-06-20 Telephone [facility] 1.2.736.396 [id number] Univers 00:00:00 00:00:00 Emre HEALTH 350.1.13.10 it y of [place] 4.2.7.2.686 Scooter as PITO?BLEA [id number] [address] OFFICE [facility] 2022-05-28 2022-05-28 Elva Verduzco [facility] 1.2.840.114 [id number] Univers 12:00:00 12:00:00 Care Kateryna HEALTH 350.1.13.10 it y of [place] 4.2.7.2.686 Scooter as PITO?BLEA [id number] [address] OFFICE [facility] 2022-05-28 2022-05-28 [facility] 1.2.840.114 [id number] Univers 12:00:00 12:00:00 Care Kateryna HEALTH 350.1.13.10 it y of [place] 4.2.7.2.686 Scooter as PITO?BLEA [phone] [address] MEDICAL OFFICE [facility] 2022-05-28 2022-05-28 Outpatient R GAMAL [facility] [id number] Univers 12:00:00 11:55:15 KATERYNA [facility] 2022-05-20 2022-05-20 Outpatient [facility] [id number] Univers 20:40:00 20:40:00 BEBETO [facility] 2022-05-12 2022-05-12 Moi [facility] 1.2.840.114 [id number] Univers 00:00:00 00:00:00 Emre HEALTH 350.1.13.10 it y of [place] 4.2.7.2.686 Scooter as PITO?BLEA [id number] [address] MEDICAL OFFICE [facility] 2022-04-29 2022-04-29 Urgent [facility] 1..840.114 [id number] Univers 12:00:00 12:20:00 Care Bebeto HEALTH 350.1.13.10 it y of [place] 4.2.7.2.686 Scooter as PITO?BLEA [id number] [address] MEDICAL OFFICE [facility] 2022-04-29 2022-04-29 Outpatient R YAZMIN [facility] [id number] Univers 12:00:00 12:00:00 BEBETO [facility] 2022-04-04 2022-04-04 [facility]i [facility] 1.2.840.114 [id number] Univers 00:00:00 00:00:00 Emre HEALTH 350.1.13.10 it y of [place] 4.2.7.2.686 Scooter as PITO?BLEA [id number] [address] MEDICAL OFFICE [facility] 2022-03-28 2022-03-28 Urgent Jama Lee [facility] 1.2.840. 114 [id number] Univers 16:20:00 16:40:00 Jena VerduzcoKateryna HEALTH 350.1.13.10 ity of [place] 4.2.7.2.686 Scooter as PITO?BLEA [id number] [address] MEDICAL OFFICE [facility] 2022-03-28 2022-03-28 Outpatient R ROSA [facility] [id number] Univers 16:20:00 16:20:00 JAMA rucker f [facility] 2022-03-21 2022-03-21 Orders Doctor JEFFERY 1.2.840.114 [id number] Univers 00:00:00 00:00:00 Only Unassigned, GABO 350.1.13.10 [facility] 4.2.7.2.686 Scooter as [id number] [address] 2022-03-03 2022-03-03 Refjose [facility] 1.2.840.114 [id number] Univers 00:00:00 00:00:00 Luis Miguel HEALTH 350.1.13.10 it y of [facility] 4.2.7.2.686 Scooter as PITO?BLEA [id number] [address] OFFICE [facility] 2022-02-02 2022-02-02 Khoi Gan [facility] 1.2.377.272 [id number] Univers 00:00:00 00:00:00 Emre HEALTH 350.1.13.10 it y of [facility] 4.2.7.2.686 Scooter as PITO?BLEA [id number] [address] OFFICE [facility] 2022-01-28 2022-01-28 [facility] [id number] Univers 11:30:00 11:30:00 EMRE ity [facility] 2022-01-28 2022-01-28 Outpatient R [facility] [id number] Univers 11:30:00 11:30:00 EMRE edwardsnakul [facility] 2022-01-05 2022-01-05 Urgent Bebeto Arce [facility] 1.2.840.114 [id number] Univers 13:20:00 13:20:00 Care Antoni Heide HEALTH 350.1.13.10 ity of [facility] 4.2.7.2.686 Scooter as PITO?BLEA [id number] [address] MEDICAL OFFICE [facility] 2022-01-05 2022-01-05 Outpatient R ANTONI [facility] [id number] Univers 13:20:00 10:49:31 HEIDE ity of [facility] 2022-01-05 2022-01-05 Letter Provider, [facility] 1.2.902.465 [id number] Univers 00:00:00 00:00:00 (Out) Ang Db HEALTH 350.1.13.10 it y of [facility] [place] 4.2.7.2.686 [place] PITO?BLEA [id number] [address] MEDICAL OFFICE [facility] 2022-01-05 2022-01-05 Telephone Yazmin [facility] 1.2.840.114 [id number] Univers 00:00:00 00:00:00 Rania HEALTH 350.1.13.10 it y of [place] 4.2.7.2.686 Scooter as PITO?BLEA [id number] [address] OFFICE [facility] 2022-01-04 2022-01-04 Orders Doctor JEFFERY 1.2.840.114 [id number] Univers 00:00:00 00:00:00 Only Unassigned, GABO 350.1.13.10 ity of [place] [facility] 4.2.7.2.686 Scooter as [id number] [address] 2021-12-31 2021-12-31 Telephone [facility] 1.2.033.456 [id number] Univers 00:00:00 00:00:00 Emre HEALTH 350.1.13.10 it y of [place] 4.2.7.2.686 Scooter as PITO?BLEA [id number] [address] MEDICAL OFFICE [facility] 2021-12-31 2021-12-31 Telephone [facility] 1.2.178.236 [id number] Univers 00:00:00 00:00:00 Emre HEALTH 350.1.13.10 it y of [place] 4.2.7.2.686 Scooter as PITO?BLEA [id number] [address] OFFICE [facility] 2021-12-30 2021-12-30 Outpatient R ELVIA [facility] [id number] Univers 11:00:00 11:00:00 EMRE gant [facility] 2021-12-30 2021-12-30 Outpatient R ELVIA [facility] [id number] Univers 11:00:00 11:00:00 EMRE gant [facility] 2021-12-28 2021-12-28 Outpatient R ELVIA [facility] [id number] Univers 11:30:00 12:26:05 EMRE gant [facility] 2021 2021 Telephone [facility] 1.2.629.095 [id number] Univers 00:00:00 00:00:00 Emre HEALTH 350.1.13.10 it y of [facility] 4.2.7.2.686 Scooter as PITO?BLEA [id number] [address] OFFICE [facility] 2021-11-04 2021-11-04 Outpatient R BELKIS [facility] [id number] Univers 11:30:00 11:30:00 CHRISTOPHER stalin [facility] 2021-11-02 2021-11-02 Telehealth Coordinator Lab, Ang - Db [facility] 1.2.840.1 14 [id number] Univers 16:30:00 16:45:00 Visit Emre Gan 350.1.13.10 ity of [place] 4.2.7.2.686 Scooter as PITO?BLEA [id number] [address] MEDICAL OFFICE [facility] 2021-11-02 2021-11-02 Outpatient [facility] [id number] Univers 15:00:00 16:27:02 EMRE gant [facility] 2021-11-02 2021-11-02 Office [facility] 1.2.840.114 [id number] Univers 15:00:00 16:27:02 Visit Emre CALHOUN 350.1.13.10 it y of [facility] 4.2.7.2.686 Scooter as PITO?BLEA [phone] [address] MEDICAL OFFICE [facility] 2021-10-19 2021-10-19 Telephone [place] .2.840.114 [id number] Univers 00:00:00 00:00:00 Demetri Hyde HEALTH 350.1.13.10 i [place] [id number] [address] 2021-10-18 2021-10-18 Outpatient R [facility]RI [facility] 10 [id number] Univers 13:45:00 15:41:27 DEMETRI [place]KE santiago ty [facility] 2021-10-18 2021-10-18 Office Aldo, [facility] 1.2.840.114 [id number] Univers 13:45:00 15:41:27 Visit Demetri [place] HEALTH 350.1.13.10 [place] [id number] [address] 2021-10-18 2021-10-18 Office Aldo [facility] 1.2.840.114 [id number] Univers 13:45:00 15:41:27 Visit Demetri [place] HEALTH 350.1.13.10 it[place] [phone] [address] 2021-10-18 2021-10-18 Outpatient R [facility] [id number] Univers 13:45:00 15:41:27 FREDY DEMETRI santiago ty [facility] 2021-10-13 2021-10-13 [facility] [id number] Univers 00:00:00 00:00:00 Emre HEALTH 350.1.13.10 it y of [place] 4.2.7.2.686 Scooter as PITO?BLEA [id number] [address] OFFICE BUILDING 2021-10-05 2021-10-05 [facility] 1.2.840.114 [id number] Univers 10:30:00 11:13:32 Visit Emre HEALTH 350.1.13.10 it y of [place] 4.2.7.2.686 Scooter as PITO?BLEA [phone] [address] OFFICE BUILDING 2021-10-05 2021-10-05 Outpatient R ELVIA [facility] [id number] Univers 10:30:00 11:13:32 EMRE gant [facility] 2021-10-05 2021-10-05 Outpatient R ELVIA [facility] [id number] Univers 10:30:00 10:30:00 EMRE gant [facility] 2021-10-05 2021-10-05 Outpatient R ELVIA [facility] [id number] Univers 10:30:00 10:30:00 EMRE gant [facility] 2021-10-04 2021-10-04 [facility] [id number] Univers 00:00:00 00:00:00 Emre HEALTH 350.1.13.10 it y of [place] 4.2.7.2.686 Scooter as PITO?BLEA [phone] [address] OFFICE [facility] 2021-09-27 2021-09-27 Telehealth Coordinator Lab, Ang - [facility] 1.2.840.1 [id number] Univers 10:30:00 10:45:00 Visit Emre Gan HEALTH 350.1.13.10 ity of [place] 4.2.7.2.686 Scooter as PITO?BLEA [phone] [address] MEDICAL OFFICE [facility] 2021-09-27 2021-09-27 Outpatient R ELVIA [facility] [id number] Univers 10:30:00 10:30:00 EMRE gant [facility] 2021-09-27 2021-09-27 [facility] [id number] Univers 00:00:00 00:00:00 Emre HEALTH 350.1.13.10 it y of [place] 4.2.7.2.686 Scooter as PITO?BLEA [id number] [address] MEDICAL OFFICE [facility] 2021-09-24 2021-09-24 Outpatient R ELVIA [facility] [id number] Univers 16:30:00 17:11:50 EMRE gant [facility] 2021-09-242021-09-24 [facility] 1.2.840.114 [id number] Univers 16:30:00 17:11:50 Visit Emre CALHOUN 350.1.13.10 it y of [facility] 4.2.7.2.686 Scooter as PITO?BLEA [phone] [address] MEDICAL OFFICE [facility] 2021-09-24 2021-09-24 Outpatient [facility] [id number] Univers 16:30:00 17:11:50 EMRE gant [facility] 2021-09-06 2021-09-06 Office [place] [facility] [id number] [employer] 13:07:39 14:01:08 Visit Emre CALHOUN [id number] it y of [place] [id number] Scooter as PITO?BLEA [phone] [address] OFFICE [facility] 2021-09-06 2021-09-06 Outpatient Pee [facility] [id number] [employer] 13:00:00 14:01:08 EMRE gant [facility] 2021-09-06 2021-09-06 Outpatient Pee [facility] [id number] [facility] 13:00:00 13:00:00 EMRE gant [facility] 2021-09-06 2021-09-06 Orders Doctor GIL [id number] [employer] 00:00:00 00:00:00 Only Unassigned, GABO [id number] ity of [place] [facility] [id number] Scooter as [phone] [address] 2021-02-06 2021-02-06 Outpatient [facility] [id number] [facility] 13:10:00 13:10:00 SHERIF ity [facility] 2021-01-16 2021-01-16 Outpatient [facility] [id number] [employer] 13:10:00 13:10:00 [facility] Results Test Description Test Time Test Comments Results Result Comments Source POCT HEMOGLOBIN A1C TEST 2022-08-04 21:00:00 Test Item Value Reference Range Interpretation Comme nts POCT HBA1C (test code = 4548-4) 12.1 % 4-6 A Lab Interpretation (test code = 46328-3) [facility] [id number] 21:00:00 Test Item Value Reference Range Interpretation Comments POCT HBA1C (test code = 4548-4) 12.1 % 4-6 A Lab Interpretation (test code = Abnormal 52035-0) [facility]
--- NOTE | 2023-05-13 07:11 | ER ---
Nurse's Notes [facility] Name: Sergio Hilton Age: 22 yrs Sex: Male : 2000 Arrival Date: 05/13/2023 Time: 06:45 Bed 5 Private MD: Diagnosis: Gastro-esophageal reflux disease without esophagitis;Epigastric pain Presentation: 05/13 06:55 Chief complaint: Patient states: abdominal pain of 4 with acid reflux,onset 0600 this pf1 AM. 06:55 Coronavirus screen: Vaccine status: Patient reports receiving the 2nd dose of the covid pf1 vaccine. 4 doses of pfizer Client denies travel out of the [place] in the last 14 days. At this time, the client does not indicate any symptoms associated with coronavirus-19. Ebola Screen: Patient negative for fever greater than or equal to 101.5 degrees Fahrenheit, and additional compatible Ebola Virus Disease symptoms. Initial Sepsis Screen: Does the patient meet any 2 criteria? No. Patient's initial sepsis screen is negative. Does the patient have a suspected source of infection? No. Patient's initial sepsis screen is negative. Risk Assessment: Do you want to hurt yourself or someone else? Patient reports no desire to harm self or others. 06:55 Method Of Arrival: Ambulatory pf1 06:55 Acuity: YURI 3 pf1 Historical: - Allergies: 07:08 Latex, Natural Rubber; pf1 - PMHx: 07:08 Bipolar disorder; Diabetes - NIDDM; Irritable bowel syndrome; Leukemia; pf1 - PSHx: 07:08 Appendectomy; pf1 - Immunization history:: Adult Immunizations up to date, Last tetanus immunization: < 10 years ago Flu vaccine is not up to date. - Social history:: Smoking status: Patient denies any tobacco usage or history of. Patient/guardian denies using alcohol, street drugs. - Family history:: not pertinent. Screenin:17 [facility] ED Fall Risk Assessment (Adult) History of falling in the last 3 months, rs5 including since admission No falls in past 3 months (0 pts) Confusion or Disorientation No (0 pts) Intoxicated or Sedated No (0 pts) Impaired Gait No (0 pts) Mobility Assist Device Used No (0 pt) Altered Elimination No (0 pt) Score/Fall Risk Level 0 - 2 = Low Risk Oriented to surroundings, Maintained a safe environment, Educated pt \T\ family on fall prevention, incl call for assistance when getting out of bed. Abuse screen: Denies threats or abuse. Nutritional screening: No deficits noted. Tuberculosis screening: No symptoms or risk factors identified. Assessment: 07:17 General: Appears in no apparent distress. comfortable, Behavior is calm, cooperative. rs5 Pain: Complains of pain in epigastric area Pain does not radiate. Pain currently is 0 out of 10 on a pain scale. Quality of pain is described as burning, Pain began 1 hour ago. Is intermittent. Neuro: Level of Consciousness is awake, alert, obeys commands, Oriented to person, place, time, situation. Cardiovascular: Patient's skin is warm and dry. Respiratory: Airway is patent Respiratory effort is even, unlabored, Respiratory pattern is regular, symmetrical. GI: Abdomen is round non-distended, Stools are reported to be normal. Last BM was May 13, 2023. Bowel sounds present X 4 quads. Abd is soft and non tender X 4 quads. Reports upper abdominal pain, Patient currently denies diarrhea, nausea, vomiting. : No signs and/or symptoms were reported regarding the genitourinary system. EENT: No signs and/or symptoms were reported regarding the EENT system. Derm: Skin is dry, Skin is normal, Skin temperature is warm. Musculoskeletal: Range of motion: intact in all extremities. 07:47 Reassessment: Patient is alert, oriented x 3, equal unlabored respirations, skin rs5 warm/dry/pink. Vital Signs: 06:55 BP 131 / 89; Pulse 89; Resp 18; Temp 97.7; Pulse Ox 98% on R/A; Weight 70.31 kg; Height pf1 6 ft. 1 in. ; Pain 4/10; 07:47 BP 135 / 97; Pulse 84; Resp 17 S; Pulse Ox 99% on R/A; rs5 06:55 Body Mass Index 20.45 (70.31 kg, 185.42 cm) pf1 06:55 Pain Scale: Adult pf1 ED Course: 06:46 Patient arrived in ED. am2 07:08 Triage completed. pf1 07:08 Josefina Oviedo MD is Attending Physician. cp3 07:10 Gagandeep Mari MD is Referral Physician. cp3 07:12 Edilberto Moe, RN is Primary Nurse. rs5 07:17 Patient has correct armband on for positive identification. Bed in low position. Call rs5 light in reach. Side rails up X 1. Pulse ox on. NIBP on. 07:49 No provider procedures requiring assistance completed. Patient did not have IV access rs5 during this emergency room visit. Administered Medications: 07:37 Drug: Sucralfate PO 1 grams Route: PO; rs5 07:37 CANCELLED (no oral lidocaine available at this time.): GI Cocktail with - rs5 (Maalox PO Suspension 30 ml, Lidocaine Mucous Membrane Liquid 2 % 20 ml, Phenobarbital-Belladonna PO 10 ml) PO once 07:37 Drug: Alum-Mag Hydroxide-Simeth PO Suspension (200 mg-200 mg-20 mg/5 mL) 30 ml Route: rs5 PO; Medication: 07:49 VIS not applicable for this client. rs5 Outcome: 07:11 Discharge ordered by . cp3 07:49 Discharged to home ambulatory. rs5 07:49 Condition: stable 07:49 Discharge instructions given to patient, Instructed on discharge instructions, follow up and referral plans. medication usage, Demonstrated understanding of instructions, follow-up care, medications, Prescriptions given X 2. 07:54 Patient left the ED. rs5 Signatures: Josefina Oviedo MD MD cp3 Kateryna Nye am2 Lin Madsen, RN RN pf1 Edilberto Moe, RN RN rs5
--- NOTE | 2023-05-13 07:11 | EDPHYS ---
Physician Documentation [facility] Name: Sergio Hilton Age: 22 yrs Sex: Male : 2000 Arrival Date: 05/13/2023 Time: 06:45 Bed 5 Private MD: ED Physician Josefina Oviedo HPI: 05/13 07:24 This 22 yrs old Male presents to ER via Ambulatory with complaints of cp3 Abdominal Pain, reflux. 07:15 Patient is a 22-year-old male with a history of bipolar disorder, diabetes but is not cp3 insulin-dependent, irritable bowel syndrome, gastroesophageal reflux. The patient presents to the ED secondary to 12 hours of epigastric burning and discomfort after eating hot wings last night. Patient rates the pain at 2 out of 10 described as radiating burning pain from the mid abdomen up into the chest. No associated chest pain, shortness of breath, nausea, vomiting, diarrhea. Risk factors include history of diabetes. Patient's blood sugar prior to arrival was 125. Patient denies significant surgical history. The patient denies smoking drinking on subjective examination social history.. Historical: - Allergies: 07:08 Latex, Natural Rubber; pf1 - PMHx: 07:08 Bipolar disorder; Diabetes - NIDDM; Irritable bowel syndrome; Leukemia; pf1 - PSHx: 07:08 Appendectomy; pf1 - Immunization history:: Adult Immunizations up to date, Last tetanus immunization: < 10 years ago Flu vaccine is not up to date. - Social history:: Smoking status: Patient denies any tobacco usage or history of. Patient/guardian denies using alcohol, street drugs. - Family history:: not pertinent. ROS: 07:19 Constitutional: Negative for fever, chills, and weight loss, Eyes: Negative for injury, cp3 pain, redness, and discharge, ENT: Negative for injury, pain, and discharge, Cardiovascular: Negative for chest pain, palpitations, and edema, Respiratory: Negative for shortness of breath, cough, wheezing, and pleuritic chest pain, Back: Negative for injury and pain, : Negative for injury, bleeding, discharge, and swelling, MS/Extremity: Negative for injury and deformity, Skin: Negative for injury, rash, and discoloration, Neuro: Negative for headache, weakness, numbness, tingling, and seizure, Psych: Negative for depression, anxiety, suicide ideation, homicidal ideation, and hallucinations, Allergy/Immunology: Negative for hives, rash, and allergies, Endocrine: Negative for neck swelling, polydipsia, polyuria, polyphagia, and marked weight changes, Hematologic/Lymphatic: Negative for swollen nodes, abnormal bleeding, and unusual bruising. 07:19 Abdomen/GI: Positive for Epigastric burning, Negative for nausea and vomiting, constipation, abdominal cramps, abdominal distension, anorexia, dysphagia, rectal pain. Exam: 07:19 Constitutional: This is a well developed, well nourished patient who is awake, alert, cp3 and in no acute distress. Head/Face: Normocephalic, atraumatic. Eyes: Pupils equal round and reactive to light, extra-ocular motions intact. Lids and lashes normal. Conjunctiva and sclera are non-icteric and not injected. Cornea within normal limits. Periorbital areas with no swelling, redness, or edema. ENT: Nares patent. No nasal discharge, no septal abnormalities noted. Tympanic membranes are normal and external auditory canals are clear. Oropharynx with no redness, swelling, or masses, exudates, or evidence of obstruction, uvula midline. Mucous membranes moist. Neck: Trachea midline, no thyromegaly or masses palpated, and no cervical lymphadenopathy. Supple, full range of motion without nuchal rigidity, or vertebral point tenderness. No Meningismus. Chest/axilla: Normal chest wall appearance and motion. Nontender with no deformity. No lesions are appreciated. Cardiovascular: Regular rate and rhythm with a normal S1 and S2. No gallops, murmurs, or rubs. Normal PMI, no JVD. No pulse deficits. Respiratory: Lungs have equal breath sounds bilaterally, clear to auscultation and percussion. No rales, rhonchi or wheezes noted. No increased work of breathing, no retractions or nasal flaring. Abdomen/GI: Soft, non-tender, with normal bowel sounds. No distension or tympany. No guarding or rebound. No evidence of tenderness throughout. Back: No spinal tenderness. No costovertebral tenderness. Full range of motion. MS/ Extremity: Pulses equal, no cyanosis. Neurovascular intact. Full, normal range of motion. Neuro: Awake and alert, GCS 15, oriented to person, place, time, and situation. Cranial nerves II-XII grossly intact. Motor strength 5/5 in all extremities. Sensory grossly intact. Cerebellar exam normal. Normal gait. Psych: Awake, alert, with orientation to person, place and time. Behavior, mood, and affect are within normal limits. Vital Signs: 06:55 BP 131 / 89; Pulse 89; Resp 18; Temp 97.7; Pulse Ox 98% on R/A; Weight 70.31 kg; Height pf1 6 ft. 1 in. ; Pain 4/10; 07:47 BP 135 / 97; Pulse 84; Resp 17 S; Pulse Ox 99% on R/A; rs5 06:55 Body Mass Index 20.45 (70.31 kg, 185.42 cm) pf1 06:55 Pain Scale: Adult pf1 MDM: 07:08 Patient medically screened. cp3 07:21 Differential diagnosis: The differential diagnosis includes gastroesophageal reflux, cp3 pancreatitis, undifferentiated abdominal pain, hyper glycemia, gastritis. Patient with minimal clinical symptoms on exam. Patient able to eat and no ongoing aching pain to suggest pancreatitis. Symptoms resolved with GI cocktail and Carafate making gastroesophageal reflux more likely. Data reviewed: vital signs, nurses notes, compliance monitor interpreted by me: Rate 89, normal sinus rhythm. Consideration of Admission/Observation Escalation of care including admission/observation considered. No emergent indication for hospitalization. Shared decision making implemented and patient requests outpatient evaluation prefers outpatient evaluation. I considered the following discharge prescriptions or medication management in the emergency department Medications were administered in the Emergency Department. See MAR. Test considered but Not performed: Labs: Patient with resolution in symptoms with oral medications. CT: Patient with benign abdominal exam no emergent indication for CT of the abdomen and pelvis. Response to treatment: the patient's symptoms have resolved after treatment. Administered Medications: 07:37 Drug: Sucralfate PO 1 grams Route: PO; rs5 07:37 CANCELLED (no oral lidocaine available at this time.): GI Cocktail with - rs5 (Maalox PO Suspension 30 ml, Lidocaine Mucous Membrane Liquid 2 % 20 ml, Phenobarbital-Belladonna PO 10 ml) PO once 07:37 Drug: Alum-Mag Hydroxide-Simeth PO Suspension (200 mg-200 mg-20 mg/5 mL) 30 ml Route: rs5 PO; Disposition Summary: 05/13/23 07:11 Discharge Ordered Location: Home cp3 Condition: Stable cp3 Diagnosis - Gastro-esophageal reflux disease without esophagitis cp3 - Epigastric pain cp3 Followup: cp3 - With: Gagandeep Mari MD - When: As needed - Reason: Recheck today's complaints Discharge Instructions: - Discharge Summary Sheet cp3 - Gastroesophageal Reflux Disease, Adult cp3 Forms: - Medication Reconciliation Form cp3 - Thank You Letter cp3 - Antibiotic Education cp3 - Prescription Opioid Use cp3 - Patient Portal Instructions cp3 - Work release form iw Prescriptions: - Pepcid 20 mg Oral Tablet - take 1 tablet by ORAL route every 12 hours for 5 days; 10 tablet; Refills: 0, cp3 Product Selection Permitted - Protonix 40 mg Oral Tablet - take 1 tablet by ORAL route once daily; 30 tablet; Refills: 0, Product cp3 Selection Permitted Signatures: Josefina Oviedo MD MD cp3 Lin Madsen RN RN pf1 Edilberto Moe, RN RN rs5 Corrections: (The following items were deleted from the chart) 07:37 07:08 GI Cocktail with - (Maalox Suspension 30 ml, Lidocaine Liquid 2 % 20 ml, rs5 Phenobarbital-Belladonna 10 ml;) PO once ordered. cp3 07:37 07:36 GI Cocktail with - (Maalox Suspension 30 ml, Lidocaine Liquid 2 % 20 ml, rs5 Phenobarbital-Belladonna 10 ml;) PO once ordered. rs5
[2023-05-13] MEDS ORDERED: MAGNES/ALUMIN/SIMET 30ML UCUP ONE (07:41)
[2023-05-13] MEDS ORDERED: SUCRALFATE 1 GM TABLET ONE (07:42)
[2023-05-13 07:59] VITALS: TEMP 97.7
[2023-05-13 08:00] VITALS: BP 135/97; O2SAT 99
== END 2023-05-13 07:54 | disposition home or self-care (01) ==
LOC: ER 06:45
DX: K21.9 Gastro-esophageal reflux disease without esophagitis (principal); E11.9 Type 2 diabetes mellitus without complications; Z91.040 Latex allergy status; Z91.048 Other nonmedicinal substance allergy status
CPT/HCPCS: 99283

== ENCOUNTER 2023-06-13 11:22 | Emergency (ER) | payer OTHER ==
--- OUTSIDE RECORDS SUMMARY | 2023-06-13 11:31 | XMS REPORT | Continuity of Care Document ---
:2000 Author Organization [facility] t Address [address] [place] [id number] Care Team Providers Name Role Phone Emre Nieves Primary Care Physician JOSE CHIRINOS Attending Clinician Unavailable EMRE GAN Attending Clinician Unavailable Emre Nieves Attending Clinician RICHARD CRUZ Attending Clinician Unavailable Richard Cruz MD Attending Clinician Doctor Unassigned, Seaman Attending Clinician Unavailable Lab, Ang - Db [...] Number Effective Date Expiration Date Lizett nathan [facility] [id number] 2022 PLUS 00:00:00 [facility] [id number] 2018 CHOICE MEDICAID 00:00:00 Problems Condition Condition Condition Status Onset Resolution Last Treating Co mments Source Name Details Category Date Date Treatment Clinician Date Dyslipidem Dyslipidem Disease Active 2020- U nivers ia ia 2-17 ity of 00:00: [place] 00 Medical Branch NAFLD NAFLD Disease Active 2020- Univers (nonalcoho (nonalcoho 2-17 it y of lic fatty lic fatty 00:00: [facility] s liver liver 00 Medical disease) disease) Branch Non Non Disease Active Univers compliance compliance 2-17 it y of with with 00:00: [place] medical medical 00 Medical treatment treatment Bran ch Type 2 Type 2 Disease Active 2019- Univers diabetes diabetes 2-17 ity of mellitus mellitus 00:00: [place] with with 00 Medical hyperglyce hyperglyce Br anch jared, jared, without without long-term long-term current current use of use of insulin insulin Exposure Exposure Disease Active Overview: Un promise to medical to medical 07 Formattin ity of therapeuti therapeuti 00:00: g of this [place] c 00 note Medical radiation radiation might be Br anch different from the original. Formattin g of this note might be different from the original. TBI 1400cGY part of BMT Condition ing Regimen History of History of Disease Active Overview : Univers appendecto appendecto 207 Formattin ity of my my 00:00: g of this [place] 00 note Medical might be Branch different from the original. Formattin g of this note might be different from the original. Surigcal removal 11/15/2019 at outside hospital At risk At risk Disease Active Univers for for 2-11 ity of alteration alteration 00:00: [place] in 00 Medical endocrine endocrine Bran ch function function Obesity Obesity Disease Active Univers due to due to 2-11 ity of excess excess 00:00: [place] calories calories 00 Medica l without without Branch serious serious comorbidit comorbidit y with y with body mass body mass index index (BMI) in (BMI) in 95th to 95th to 98th 98th percentile percentile for age in for age in pediatric pediatric patient patient Care after Care after Disease Active 2017-10 U nivers organ organ 1-26 ity of transplant transplant 00:00: [place] 00 Medical Branch 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 6-12 ity of impairment impairment 00:00: [place] 00 Medical Branch Abnormal Abnormal Disease Active Unive rs echocardio echocardio 5-19 it y of gram gram 00:00: [place] findings findings 00 Medica l without without Branch diagnosis diagnosis Adjustment Adjustment Disease Active U nivers disorder disorder 3-29 ity of with with 00:00: [place] depressed depressed 00 Medi florencio mood mood Branch Irritable Irritable Disease Active Uni vers bowel bowel 3-17 ity of 00:00: [place] 00 Medical Branch Vitamin D Vitamin D Disease Active Overview: Univers deficiency deficiency 4-18 Formattin ity of 00:00: g of this [place] 00 note Medical might be Branch different from the original. Formattin g of this note might be different from the original. 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 Formattin g of this note might be different from the original. Taking focalin Blood Blood Disease Active Overview: Univer s transfusio transfusio Formattin ity of n without n without g of this [place] reported reported note Medica l diagnosis diagnosis might be Br anch different from the original. 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 Utility Leukemia Leukemia Disease Active Unive rs ity of [facility] Allergies, Adverse Reactions, Alerts Allergy Allergy Status [...] 2-25 ity of 00:00: [place] 00 Medical Branch Social History Social Habit Start Date Stop Date Quantity Comments Source History of tobacco Passive smoker Un iversity of use [facility] Gender identity Universit y of [facility] Sexual orientation Univer sity of [facility] Alcohol intake 2023-05-26 2023-05-26 Current University of 00:00:00 00:00:00 non-drinker of [facility] [place] [facility] alcohol Branch (finding) Exposure to 2023-03-14 2023-03-24 Not sure University SARS-CoV-2 (event) 00:00:00 09:25:00 [facility] History of Social 2023-03-24 2023-03-24 Univers ity of function 00:00:00 00:00:00 [facility] Tobacco use and 2022-06-20 2022-06-20 Smokeless Universit y of exposure 00:00:00 00:00:00 tobacco non-user [facility] Tobacco Comment 2022-06-20 2022-06-20 Family smokes Univer sity of 00:00:00 00:00:00 outside [facility] Sex Assigned At 2000 2000 Universit y of 00:00:00 00:00:00 [facility] Smoking Status Start Date Stop Date Source Never smoked tobacco [facility] Medications Ordered Filled Start Stop Current Ordering Indication Dosage Frequency Signature Comments Components Source Medication Medication Date Date Medication? Clinician (SIG) Name Name semaglutide Yes [id number] 1mg inject 1 Univers (OZEMPIC) 1 8-18 mg under ity of mg/dose (4 00:00: the skin [place] as mg/3 mL) 00 weekly. [facility] semaglutide Yes [id number] 1mg inject 1 Univers (OZEMPIC) 1 8-18 mg under ity of mg/dose (4 00:00: the skin [place] mg/3 mL) 00 weekly. [facility] Insulin Yes [id number] 15U inject 15 Univers Glargine 7-14 Units ity of (LANTUS 00:00: under the [facility] 00 skin [facility] morning 100 unit/mL and 15 (3 mL) Units in injection the evening. Insulin Yes [id number] 15U inject 15 Univers Glargine 7-14 Units ity of (LANTUS 00:00: under the [facility] 00 skin in [facility] Branch [facility]) morning 100 unit/mL and 15 (3 mL) Units in injection the evening. Insulin Yes [id number] 15U inject 15 Univers Glargine 7-14 Units ity of (LANTUS 00:00: under the [facility] 00 skin in [facility] [address] Branch INSULIN) morning 100 unit/mL and 15 (3 mL) Units in injection the evening. Insulin 2022-0 Yes [id number] 15U inject 15 Univers Glargine 7-14 Units ity of (LANTUS 00:00: under the [place] SOLOSTAR 00 skin in Medical U-100 the Branch INSULIN) morning 100 unit/mL and 15 (3 mL) Units in injection the evening. Insulin 2022-0 Yes [id number] 15U inject 15 Univers Glargine 7-14 Units ity of (LANTUS 00:00: under the [place] SOLOST[facility] 00 skin in Medical U-100 the Branch INSULIN) morning 100 unit/mL and 15 (3 mL) Units in injection the evening. semaglutide 3-0 Yes [id number] .5mg inject 0.5 Univers (OZEMPIC) 7-06 mg under ity of 0.25 mg or 00:00: the skin [place] 0.5 mg(2 00 weekly. Medical mg/1.5 mL) Branch PnIj semaglutide 3-0 Yes [id number] .5mg inject 0.5 Univers (OZEMPIC) 7-06 mg under ity of 0.25 mg or 00:00: the skin [place] 0.5 mg(2 00 weekly. Medical mg/1.5 mL) Branch PnIj semaglutide 3-0 Yes [id number] .5mg inject 0.5 Univers (OZEMPIC) 7-06 mg under ity of 0.25 mg or 00:00: the skin [place] 0.5 mg(2 00 weekly. Medical mg/1.5 mL) Branch PnIj semaglutide 3-0 Yes [id number] .5mg inject 0.5 Univers (OZEMPIC) 7-06 mg under ity of 0.25 mg or 00:00: the skin [place] 0.5 mg(2 00 weekly. Medical mg/1.5 mL) Branch PnIj semaglutide 3-0 Yes [id number] .5mg inject 0.5 Univers (OZEMPIC) 7-06 mg under ity of 0.25 mg or 00:00: the skin [place] 0.5 mg(2 00 weekly. Medical mg/1.5 mL) Branch PnIj semaglutide 3-0 Yes [id number] .5mg inject 0.5 Univers (OZEMPIC) 7-06 mg under ity of 0.25 mg or 00:00: the skin [place] 0.5 mg(2 00 weekly. Medical mg/1.5 mL) [facility] semaglutide 2022-2022- No [id number] .5mg inject 0.5 Univers (OZEMPIC) 7- 08-18 mg under ity o f 0.25 mg or 00:00: 00:00 the skin [place] 0.5 mg(2 00 :00 weekly. Medical mg/1.5 mL) [facility] semaglutide 2022- No [id number] .5mg inject 0.5 Univers (OZEMPIC) 7 08-18 mg under ity o f 0.25 mg or 00:00: 00:00 the skin [place] 0.5 mg(2 00 :00 weekly. Medical mg/1.5 mL) [facility] Insulin Yes [id number] 15U inject 15 Univers Glargine 6-23 Units ity of (LANTUS 00:00: under the [place] SOLOST[facility] 00 skin in Medical U-100 the Branch INSULIN) morning 100 unit/mL and 15 (3 mL) Units in injection the evening. semaglutide 2022-0 Yes [id number] .25mg inject Univers (OZEMPIC) 6-23 0.25 mg ity of 0.25 mg or 00:00: under the [place] 0.5 mg(2 00 skin Medical mg/1.5 mL) weekly. [facility] Insulin Yes [id number] 15U inject 15 Univers Glargine 6-23 Units ity of (LANTUS 00:00: under the [place] SOLOST[facility] 00 skin in Medical U-100 the Branch INSULIN) morning 100 unit/mL and 15 (3 mL) Units in injection the evening. semaglutide 2022-0 Yes [id number] .25mg inject Univers (OZEMPIC) 6-23 0.25 mg ity of 0.25 mg or 00:00: under the [place] 0.5 mg(2 00 skin Medical mg/1.5 mL) weekly. [facility] Insulin Yes [id number] 15U inject 15 Univers Glargine 6-23 Units ity of (LANTUS 00:00: under the [place] SOLOST[facility] 00 skin in Medical U-100 the Branch INSULIN) morning 100 unit/mL and 15 (3 mL) Units in injection the evening. semaglutide 2022-0 Yes [id number] .25mg inject Univers (OZEMPIC) 6-23 0.25 mg ity of 0.25 mg or 00:00: under the [place] 0.5 mg(2 00 skin Medical mg/1.5 mL) weekly. Branch PnIj Insulin 2022-0 Yes [id number] 15U inject 15 Univers Glargine 6-23 Units ity of (LANTUS 00:00: under the [place] SOLOSTAR 00 skin in Medical U-100 the Branch INSULIN) morning 100 unit/mL and 15 (3 mL) Units in injection the evening. semaglutide 2022-0 Yes [id number] .25mg inject Univers (OZEMPIC) 6-23 0.25 mg ity of 0.25 mg or 00:00: under the [place] 0.5 mg(2 00 skin Medical mg/1.5 mL) weekly. Branch PnIj Insulin 2022-0 Yes [id number] 15U inject 15 Univers Glargine 6-23 Units ity of (LANTUS 00:00: under the [place] SOLOSTAR 00 skin in Medical U-100 the Branch INSULIN) morning 100 unit/mL and 15 (3 mL) Units in injection the evening. semaglutide 2022-0 Yes [id number] .25mg inject Univers (OZEMPIC) 6-23 0.25 mg ity of 0.25 mg or 00:00: under the [place] 0.5 mg(2 00 skin Medical mg/1.5 mL) weekly. Branch PnIj Insulin 2022-0 Yes [id number] 15U inject 15 Univers Glargine 6-23 Units ity of (LANTUS 00:00: under the [place] SOLOSTAR 00 skin in Medical U-100 the Branch INSULIN) morning 100 unit/mL and 15 (3 mL) Units in injection the evening. semaglutide 2022-0 Yes [id number] .25mg inject Univers (OZEMPIC) 6-23 0.25 mg ity of 0.25 mg or 00:00: under the [place] 0.5 mg(2 00 skin Medical mg/1.5 mL) weekly. Branch PnIj Insulin Yes [id number] 15U inject 15 Univers Glargine 6-23 Units ity of (LANTUS 00:00: under the [place] SOLOSTAR 00 skin in Medical U-100 the Branch INSULIN) morning 100 unit/mL and 15 (3 mL) Units in injection the evening. Insulin Yes [id number] 15U inject 15 Univers Glargine 6-23 Units ity of (LANTUS 00:00: under the [place] SOLOSTAR 00 skin in Medical U-100 the Branch INSULIN) morning 100 unit/mL and 15 (3 mL) Units in injection the evening. Insulin Yes [id number] 15U inject 15 Univers Glargine 6-23 Units ity of (LANTUS 00:00: under the [place] SOLOSTAR 00 skin in Medical U-100 the Branch INSULIN) morning 100 unit/mL and 15 (3 mL) Units in injection the evening. Insulin Yes [id number] 15U inject 15 Univers Glargine 6-23 Units ity of (LANTUS 00:00: under the [place] SOLOSTAR 00 skin in Medical U-100 the Branch INSULIN) morning 100 unit/mL and 15 (3 mL) Units in injection the evening. Insulin 2022- No [id number] 15U inject 15 Univers Glargine 6-23 07-14 Units ity of (LANTUS 00:00: 00:00 [place] 00 :00 skin in Medical U-100 the Branch INSULIN) morning 100 unit/mL and 15 (3 mL) Units in injection the evening. Insulin 2022- No [id number] 15U inject 15 Univers Glargine 6-23 07-14 Units ity of (LANTUS 00:00: 00:00 under the [place] 00 :00 skin in Medical U-100 the Branch INSULIN) morning 100 unit/mL and 15 (3 mL) Units in injection the evening. semaglutide 2022- No [id number] .25mg inject Univers (OZEMPIC) 6- 07-06 0.25 mg ity of 0.25 mg or 00:00: 00:00 under the [place] 0.5 mg(2 00 :00 skin Medical mg/1.5 mL) weekly. Branch PnIj semaglutide 2022- No [id number] .25mg inject Univers (OZEMPIC) 03-31 0.25 mg ity of 0.25 mg or 00:00: 00:00 under the [place] 0.5 mg(2 00 :00 skin Medical mg/1.5 mL) weekly. Branch PnIj icosapent 0 Yes [id number] 2g Take 2 U nivers ethyL 6-16 capsules ity of (VASCEPA) 1 00:00: by mouth [place] gram 00 in the Medical capsule morning Branch and 2 capsules in the evening. ezetimibe 2022-0 Yes [id number] 10mg Take 1 U nivers 10 mg 6-16 tablet by ity of tablet 00:00: mouth in [place] 00 the Medical morning. Branch rosuvastati 0 Yes [id number] 20mg Take 1 Univers n (CRESTOR) 6-16 tablet by ity of 20 mg 00:00: mouth at [place] tablet 00 bedtime. Medical Branch lisinopriL 0 Yes [id number] 2.5mg Take 1 Univers 2.5 mg 6-16 tablet by ity of tablet 00:00: mouth in [place] 00 the Medical morning. Branch icosapent 0 Yes [id number] 2g Take 2 U nivers ethyL 6-16 capsules ity of (VASCEPA) 1 00:00: by mouth [place] gram 00 in the Medical capsule morning Branch and 2 capsules in the evening. ezetimibe 2022-0 Yes [id number] 10mg Take 1 U nivers 10 mg 6-16 tablet by ity of tablet 00:00: mouth in [place] 00 the Medical morning. Branch rosuvastati 2022-0 Yes [id number] 20mg Take 1 Univers n (CRESTOR) 6-16 tablet by ity of 20 mg 00:00: mouth at [place] tablet 00 bedtime. Medical Branch lisinopriL 2022-0 Yes [id number] 2.5mg Take 1 Univers 2.5 mg 6-16 tablet by ity of tablet 00:00: mouth in [place] 00 the Medical morning. Branch icosapent 2022-0 Yes [id number] 2g Take 2 U nivers ethyL 6-16 capsules ity of (VASCEPA) 1 00:00: by mouth [place] gram 00 in the Medical capsule morning Branch and 2 capsules in the evening. ezetimibe 3-0 Yes [id number] 10mg Take 1 U nivers 10 mg 6-16 tablet by ity of tablet 00:00: mouth in [place] 00 the Medical morning. Branch rosuvastati 2022-0 Yes [id number] 20mg Take 1 Univers n (CRESTOR) 6-16 tablet by ity of 20 mg 00:00: mouth at [place] tablet 00 bedtime. Medical Branch lisinopriL 2022-0 Yes [id number] 2.5mg Take 1 Univers 2.5 mg 6-16 tablet by ity of tablet 00:00: mouth in [place] 00 the Medical morning. Branch icosapent 2022-0 Yes [id number] 2g Take 2 U nivers ethyL 6-16 capsules ity of (VASCEPA) 1 00:00: by mouth [place] gram 00 in the Medical capsule morning Branch and 2 capsules in the evening. ezetimibe 2022-0 Yes [id number] 10mg Take 1 U nivers 10 mg 6-16 tablet by ity of tablet 00:00: mouth in [place] 00 the Medical morning. Branch rosuvastati 2022-0 Yes [id number] 20mg Take 1 Univers n (CRESTOR) 6-16 tablet by ity of 20 mg 00:00: mouth at [place] tablet 00 bedtime. Medical Branch lisinopriL 2022-0 Yes [id number] 2.5mg Take 1 Univers 2.5 mg 6-16 tablet by ity of tablet 00:00: mouth in [place] 00 the Medical morning. Branch icosapent 2022-0 Yes [id number] 2g Take 2 U nivers ethyL 6-16 capsules ity of (VASCEPA) 1 00:00: by mouth [place] gram 00 in the Medical capsule morning Branch and 2 capsules in the evening. ezetimibe 3-0 Yes [id number] 10mg Take 1 U nivers 10 mg 6-16 tablet by ity of tablet 00:00: mouth in [place] 00 the Medical morning. Branch rosuvastati 3-0 Yes [id number] 20mg Take 1 Univers n (CRESTOR) 6-16 tablet by ity of 20 mg 00:00: mouth at [place] tablet 00 bedtime. Medical Branch lisinopriL 2022-0 Yes [id number] 2.5mg Take 1 Univers 2.5 mg 6-16 tablet by ity of tablet 00:00: mouth in [place] 00 the Medical morning. Branch icosapent 2022-0 Yes [id number] 2g Take 2 U nivers ethyL 6-16 capsules ity of (VASCEPA) 1 00:00: by mouth [place] gram 00 in the Medical capsule morning Branch and 2 capsules in the evening. ezetimibe 2022-0 Yes [id number] 10mg Take 1 U nivers 10 mg 6-16 tablet by ity of tablet 00:00: mouth in [place] 00 the Medical morning. Branch rosuvastati 2022-0 Yes [id number] 20mg Take 1 Univers n (CRESTOR) 6-16 tablet by ity of 20 mg 00:00: mouth at [place] tablet 00 bedtime. Medical Branch lisinopriL 2022-0 Yes [id number] 2.5mg Take 1 Univers 2.5 mg 6-16 tablet by ity of tablet 00:00: mouth in [place] 00 the Medical morning. Branch icosapent 2022-0 Yes [id number] 2g Take 2 U nivers ethyL 6-16 capsules ity of (VASCEPA) 1 00:00: by mouth [place] gram 00 in the Medical capsule morning Branch and 2 capsules in the evening. ezetimibe 2022-0 Yes [id number] 10mg Take 1 U nivers 10 mg 6-16 tablet by ity of tablet 00:00: mouth in [place] 00 the Medical morning. Branch rosuvastati 2022-0 Yes [id number] 20mg Take 1 Univers n (CRESTOR) 6-16 tablet by ity of 20 mg 00:00: mouth at [place] tablet 00 bedtime. Medical Branch lisinopriL 2022-0 Yes [id number] 2.5mg Take 1 Univers 2.5 mg 6-16 tablet by ity of tablet 00:00: mouth in [place] 00 the Medical morning. Branch icosapent 2022-0 Yes [id number] 2g Take 2 U nivers ethyL 6-16 capsules ity of (VASCEPA) 1 00:00: by mouth [place] gram 00 in the Medical capsule morning Branch and 2 capsules in the evening. ezetimibe 2023-0 Yes [id number] 10mg Take 1 U nivers 10 mg 6-16 tablet by ity of tablet 00:00: mouth in [place] 00 the Medical morning. Branch rosuvastati 2022-0 Yes [id number] 20mg Take 1 Univers n (CRESTOR) 6-16 tablet by ity of 20 mg 00:00: mouth at [place] tablet 00 bedtime. Medical Branch lisinopriL 2022-0 Yes [id number] 2.5mg Take 1 Univers 2.5 mg 6-16 tablet by ity of tablet 00:00: mouth in [place] 00 the Medical morning. Branch icosapent 2022-0 Yes [id number] 2g Take 2 U nivers ethyL 6-16 capsules ity of (VASCEPA) 1 00:00: by mouth [place] gram 00 in the Medical capsule morning Branch and 2 capsules in the evening. ezetimibe 2022-0 Yes [id number] 10mg Take 1 U nivers 10 mg 6-16 tablet by ity of tablet 00:00: mouth in [place] 00 the Medical morning. Branch rosuvastati 2022-0 Yes [id number] 20mg Take 1 Univers n (CRESTOR) 6-16 tablet by ity of 20 mg 00:00: mouth at [place] tablet 00 bedtime. Medical Branch lisinopriL 2022-0 Yes [id number] 2.5mg Take 1 Univers 2.5 mg 6-16 tablet by ity of tablet 00:00: mouth in [place] 00 the Medical morning. Branch icosapent 2022-0 Yes [id number] 2g Take 2 U nivers ethyL 6-16 capsules ity of (VASCEPA) 1 00:00: by mouth [place] gram 00 in the Medical capsule morning Branch and 2 capsules in the evening. ezetimibe 2022-0 Yes [id number] 10mg Take 1 U nivers 10 mg 6-16 tablet by ity of tablet 00:00: mouth in [place] 00 the Medical morning. Branch rosuvastati 2022-0 Yes [id number] 20mg Take 1 Univers n (CRESTOR) 6-16 tablet by ity of 20 mg 00:00: mouth at [place] tablet 00 bedtime. Medical Branch lisinopriL 2022-0 Yes [id number] 2.5mg Take 1 Univers 2.5 mg 6-16 tablet by ity of tablet 00:00: mouth in [place] 00 the Medical morning. Branch icosapent 2022-0 Yes [id number] 2g Take 2 U nivers ethyL 6-16 capsules ity of (VASCEPA) 1 00:00: by mouth [place] gram 00 in the Medical capsule morning Branch and 2 capsules in the evening. ezetimibe 2022-0 Yes [id number] 10mg Take 1 U nivers 10 mg 6-16 tablet by ity of tablet 00:00: mouth in [place] 00 the Medical morning. Branch rosuvastati 2022-0 Yes [id number] 20mg Take 1 Univers n (CRESTOR) 6-16 tablet by ity of 20 mg 00:00: mouth at [place] tablet 00 bedtime. Medical Branch lisinopriL 2022-0 Yes [id number] 2.5mg Take 1 Univers 2.5 mg 6-16 tablet by ity of tablet 00:00: mouth in [place] 00 the Medical morning. Branch icosapent 2022-0 Yes [id number] 2g Take 2 U nivers ethyL 6-16 capsules ity of (VASCEPA) 1 00:00: by mouth [place] gram 00 in the Medical capsule morning Branch and 2 capsules in the evening. ezetimibe 2022-0 Yes [id number] 10mg Take 1 U nivers 10 mg 6-16 tablet by ity of tablet 00:00: mouth in [place] 00 the Medical morning. Branch rosuvastati 2022-0 Yes [id number] 20mg Take 1 Univers n (CRESTOR) 6-16 tablet by ity of 20 mg 00:00: mouth at [place] tablet 00 bedtime. Medical Branch lisinopriL 2022-0 Yes [id number] 2.5mg Take 1 Univers 2.5 mg 6-16 tablet by ity of tablet 00:00: mouth in [place] 00 the Medical morning. Branch icosapent 2022-0 Yes [id number] 2g Take 2 U nivers ethyL 6-16 capsules ity of (VASCEPA) 1 00:00: by mouth [place] gram 00 in the Medical capsule morning Branch and 2 capsules in the evening. ezetimibe 3-0 Yes [id number] 10mg Take 1 U nivers 10 mg 6-16 tablet by ity of tablet 00:00: mouth in [place] 00 the Medical morning. Branch rosuvastati 2022-0 Yes [id number] 20mg Take 1 Univers n (CRESTOR) 6-16 tablet by ity of 20 mg 00:00: mouth at [place] tablet 00 bedtime. Medical Branch lisinopriL 2022-0 Yes [id number] 2.5mg Take 1 Univers 2.5 mg 6-16 tablet by ity of tablet 00:00: mouth in [place] 00 the Medical morning. Branch icosapent 2022-0 Yes [id number] 2g Take 2 U nivers ethyL 6-16 capsules ity of (VASCEPA) 1 00:00: by mouth [place] gram 00 in the Medical capsule morning Branch and 2 capsules in the evening. ezetimibe 2022-0 Yes [id number] 10mg Take 1 U nivers 10 mg 6-16 tablet by ity of tablet 00:00: mouth in [place] 00 the Medical morning. Branch rosuvastati 2022-0 Yes [id number] 20mg Take 1 Univers n (CRESTOR) 6-16 tablet by ity of 20 mg 00:00: mouth at [place] tablet 00 bedtime. Medical Branch lisinopriL 2022-0 Yes [id number] 2.5mg Take 1 Univers 2.5 mg 6-16 tablet by ity of tablet 00:00: mouth in [place] 00 the Medical morning. Branch icosapent 2022-0 Yes [id number] 2g Take 2 U nivers ethyL 6-16 capsules ity of (VASCEPA) 1 00:00: by mouth [place] gram 00 in the Medical capsule morning Branch and 2 capsules in the evening. ezetimibe 2022-0 Yes [id number] 10mg Take 1 U nivers 10 mg 6-16 tablet by ity of tablet 00:00: mouth in [place] 00 the Medical morning. Branch rosuvastati 2022-0 Yes [id number] 20mg Take 1 Univers n (CRESTOR) 6-16 tablet by ity of 20 mg 00:00: mouth at [place] tablet 00 bedtime. Medical Branch lisinopriL 2022-0 Yes [id number] 2.5mg Take 1 Univers 2.5 mg 6-16 tablet by ity of tablet 00:00: mouth in [place] 00 the Medical morning. Branch icosapent 2022-0 Yes [id number] 2g Take 2 U nivers ethyL 6-16 capsules ity of (VASCEPA) 1 00:00: by mouth [place] gram 00 in the Medical capsule morning Branch and 2 capsules in the evening. ezetimibe 3-0 Yes [id number] 10mg Take 1 U nivers 10 mg 6-16 tablet by ity of tablet 00:00: mouth in [place] 00 the Medical morning. Branch rosuvastati 2022-0 Yes [id number] 20mg Take 1 Univers n (CRESTOR) 6-16 tablet by ity of 20 mg 00:00: mouth at [place] tablet 00 bedtime. Medical Branch lisinopriL 2022-0 Yes [id number] 2.5mg Take 1 Univers 2.5 mg 6-16 tablet by ity of tablet 00:00: mouth in [place] 00 the Medical morning. Branch icosapent 2022-0 Yes [id number] 2g Take 2 U nivers ethyL 6-16 capsules ity of (VASCEPA) 1 00:00: by mouth [place] gram 00 in the Medical capsule morning Branch and 2 capsules in the evening. ezetimibe 2022-0 Yes [id number] 10mg Take 1 [facility] nivers 10 mg 6-16 tablet by it[facility] of tablet 00:00: mouth in [place] 00 the Medical morning. Branch rosuvastati 2022-0 Yes [id number] 20mg Take 1 [facility] n (CRESTOR) 6-16 tablet by ity of 20 mg 00:00: mouth at [place] tablet 00 bedtime. Medical Branch lisinopriL 2022-0 Yes [id number] 2.5mg Take 1 [facility] 2.5 mg 6-16 tablet by ity of tablet 00:00: mouth in [place] 00 the Medical morning. Branch icosapent 2022-0 Yes [id number] 2g Take 2 U nivers ethyL 6-16 capsules ity of (VASCEPA) 1 00:00: by mouth [place] gram 00 in the Medical capsule morning Branch and 2 capsules in the evening. ezetimibe 3-0 Yes [id number] 10mg Take 1 [facility] nivers 10 mg 6-16 tablet by ity of tablet 00:00: mouth in [place] 00 the Medical morning. Branch rosuvastati 3-0 Yes [id number] 20mg Take 1 [facility] n (CRESTOR) 6-16 tablet by ity of 20 mg 00:00: mouth at [place] tablet 00 bedtime. Medical Branch lisinopriL 2022-0 Yes [id number] 2.5mg Take 1 [facility] 2.5 mg 6-16 tablet by ity of tablet 00:00: mouth in [place] 00 the Medical morning. Branch icosapent 2022-0 Yes [id number] 2g Take 2 U nivers ethyL 6-16 capsules ity of (VASCEPA) 1 00:00: by mouth [place] gram 00 in the Medical capsule morning Branch and 2 capsules in the evening. ezetimibe 2022-0 Yes [id number] 10mg Take 1 [facility] nivers 10 mg 6-16 tablet by ity of tablet 00:00: mouth in [place] 00 the Medical morning. Branch rosuvastati 2022-0 Yes [id number] 20mg Take 1 [facility] n (CRESTOR) 6-16 tablet by ity of 20 mg 00:00: mouth at [place] tablet 00 bedtime. Medical Branch lisinopriL 2022-0 Yes [id number] 2.5mg Take 1 [facility] 2.5 mg 6-16 tablet by ity of tablet 00:00: mouth in [place] the Medical morning. Branch icosapent 2022-0 Yes [id number] 2g Take 2 U nivers ethyL 6-14 capsules ity of (VASCEPA) 1 00:00: by mouth [place] gram 00 in the Medical capsule morning Branch and 2 capsules in the evening. icosapent 2022- No [id number] 2g Take 2 [facility] ethyL 6-14 06-16 capsules ity of (VASCEPA) 1 00:00: 00:00 by mouth [place] gram 00 :00 in the Medical capsule morning Branch and 2 capsules in the evening. icosapent 0 2022- No [id number] 2g Take 2 [facility] ethyL 6-14 06-16 capsules ity of (VASCEPA) 1 00:00: 00:00 by mouth [place] gram 00 :00 in the Medical capsule morning Branch and 2 capsules in the evening. ezetimibe 2022-0 Yes [id number] 10mg Take 1 [facility] nivers 10 mg 5-22 tablet by ity of tablet 00:00: mouth in [place] [address] the Medical morning. Branch ezetimibe 2022-0 Yes [id number] 10mg Take 1 [facility] nivers 10 mg 5-22 tablet by ity of tablet 00:00: mouth in [place] 00 the Medical morning. Branch ezetimibe 2022- No [id number] 10mg Take 1 [facility] 10 mg 5-22 06-16 tablet by ity of tablet 00:00: 00:00 mouth in [place] 00 :00 the Medical morning. Branch ezetimibe 2022- No [id number] 10mg Take 1 [facility] 10 mg 5-22 06-16 tablet by ity of tablet 00:00: 00:00 mouth in [place] 00 :00 the Medical morning. Branch icosapent Yes [id number] 2g Take 2 U nivers ethyL 4-14 capsules ity of (VASCEPA) 1 00:00: by mouth [place] gram 00 in the Medical capsule morning Branch and 2 capsules in the evening. icosapent Yes [id number] 2g Take 2 [facility] nivers ethyL 4-14 capsules ity of (VASCEPA) 1 00:00: by mouth [place] gram 00 in the Medical capsule morning Branch and 2 capsules in the evening. icosapent Yes [id number] 2g Take 2 [facility] nivers ethyL 4-14 capsules ity of (VASCEPA) 1 00:00: by mouth [place] gram 00 in the Medical capsule morning Branch and 2 capsules in the evening. icosapent 2022- No [id number] 2g Take 2 [facility] ethyL 4-14 06-14 capsules ity of (VASCEPA) 1 00:00: 00:00 by mouth [place] gram 00 :00 in the Medical capsule morning Branch and 2 capsules in the evening. rosuvastati 2022-0 Yes [id number] 20mg Take 1 [facility] n (CRESTOR) 4-03 tablet by ity of 20 mg 00:00: mouth at [place] tablet 00 bedtime. [facility] Branch rosuvastati 0 Yes [id number] 20mg Take 1 [facility] n (CRESTOR) 4-03 tablet by ity of 20 mg 00:00: mouth at [place] tablet 00 bedtime. [facility] Branch rosuvastati 2022-0 Yes [id number] 20mg Take 1 [facility] n (CRESTOR) 4-03 tablet by ity of 20 mg 00:00: mouth at [place] tablet 00 bedtime. [facility] Branch rosuvastati 2022-0 Yes [id number] 20mg Take 1 [facility] n (CRESTOR) 4-03 tablet by ity of 20 mg 00:00: mouth at [place] tablet 00 bedtime. Medical Branch rosuvastati 2022-0 Yes [id number] 20mg Take 1 [facility] n (CRESTOR) 4-03 tablet by ity of 20 mg 00:00: mouth at [place] tablet 00 bedtime. Medical Branch rosuvastati 0 3- No [id number] 20mg Take 1 [facility] n (CRESTOR) 4-03 06-16 tablet by it y of 20 mg 00:00: 00:00 mouth at [place] tablet 00 :00 bedtime. Medical Branch rosuvastati 0 2022- No [id number] 20mg Take 1 [facility] n (CRESTOR) 4-03 06-16 tablet by it y of 20 mg 00:00: 00:00 mouth at [place] tablet 00 :00 bedtime. Medical Branch lisinopriL 2022-0 Yes [id number] 2.5mg Take 1 [facility] 2.5 mg 1-10 tablet by ity of tablet 00:00: mouth in [place] the Medical morning. Branch lisinopriL 2022-0 Yes [id number] 2.5mg Take 1 [facility] 2.5 mg 1-10 tablet by ity of tablet 00:00: mouth in [place] the Medical morning. Branch lisinopriL 2022-0 Yes [id number] 2.5mg Take 1 [facility] 2.5 mg 1-10 tablet by ity of tablet 00:00: mouth in [place] the Medical morning. Branch lisinopriL 2022-0 Yes [id number] 2.5mg Take 1 [facility] 2.5 mg 1-10 tablet by ity of tablet 00:00: mouth in [place] the Medical morning. Branch lisinopriL 2022-0 Yes [id number] 2.5mg Take 1 [facility] 2.5 mg 1-10 tablet by ity of tablet 00:00: mouth in [place] 00 the Medical morning. Branch lisinopriL 2022-0 Yes [id number] 2.5mg Take 1 [facility] 2.5 mg 1-10 tablet by ity of tablet 00:00: mouth in [place] 00 the Medical morning. Branch lisinopriL 2022-0 2022- No [id number] 2.5mg Take 1 [facility] 2.5 mg 1-10 -16 tablet by ity of tablet 00:00: 00:00 mouth in [place] 00 :00 the Medical morning. Branch lisinopriL 2022-0 2022- No [id number] 2.5mg Take 1 [facility] 2.5 mg 1-10 06-16 tablet by ity of tablet 00:00: 00:00 mouth in [place] 00 :00 the Medical morning. Branch metformin 2021-10 Yes [id number] 750mg Take 1 [facility] ER 750 mg 2-30 tablet by ity o f 24 hr 00:00: mouth [place] tablet 00 daily with Medical breakfast. Branch glipiZIDE 2021-10 Yes [id number] 20mg Take 2 U nivers XL 10 mg 24 2-30 tablets by it y of hr tablet 00:00: mouth [place] 00 daily with Medical breakfast. Branch metformin 2021-10 Yes [id number] 750mg Take 1 [facility] ER 750 mg 2-30 tablet by ity o f 24 hr 00:00: mouth [place] tablet 00 daily with Medical breakfast. Branch glipiZIDE 2021-10 Yes [id number] 20mg Take 2 U nivers XL 10 mg 24 2-30 tablets by it y of hr tablet 00:00: mouth [place] 00 daily with Medical breakfast. Branch metformin 2021-10 Yes [id number] 750mg Take 1 [facility] ER 750 mg 2-30 tablet by ity o f 24 hr 00:00: mouth [place] tablet 00 daily with Medical breakfast. Branch glipiZIDE 2021-10 Yes [id number] 20mg Take 2 U nivers XL 10 mg 24 2-30 tablets by it y of hr tablet 00:00: mouth [place] 00 daily with Medical breakfast. Branch metformin 2021-10 Yes [id number] 750mg Take 1 [facility] ER 750 mg 2-30 tablet by ity o f 24 hr 00:00: mouth [place] tablet 00 daily with Medical breakfast. Branch glipiZIDE 2021-10 Yes [id number] 20mg Take 2 U nivers XL 10 mg 24 2-30 tablets by it y of hr tablet 00:00: mouth [place] 00 daily with Medical breakfast. Branch metformin 2021-10 Yes [id number] 750mg Take 1 [facility] ER 750 mg 2-30 tablet by ity o f 24 hr 00:00: mouth [place] tablet 00 daily with Medical breakfast. Branch glipiZIDE 2021-10 Yes [id number] 20mg Take 2 U nivers XL 10 mg 24 2-30 tablets by it y of hr tablet 00:00: mouth [place] 00 daily with Medical breakfast. Branch metformin 2021-10 Yes [id number] 750mg Take 1 [facility] ER 750 mg 2-30 tablet by ity o f 24 hr 00:00: mouth [place] tablet 00 daily with Medical breakfast. Branch glipiZIDE 2021-10 Yes [id number] 20mg Take 2 U nivers XL 10 mg 24 2-30 tablets by it y of hr tablet 00:00: mouth [place] 00 daily with Medical breakfast. Branch metformin 2021-10 Yes [id number] 750mg Take 1 [facility] ER 750 mg 2-30 tablet by ity o f 24 hr 00:00: mouth [place] tablet 00 daily with Medical breakfast. Branch glipiZIDE 2021-10 Yes [id number] 20mg Take 2 U nivers XL 10 mg 24 2-30 tablets by it y of hr tablet 00:00: mouth [place] 00 daily with Medical breakfast. Branch metformin 2021-10 Yes [id number] 750mg Take 1 [facility] ER 750 mg 2-30 tablet by ity o f 24 hr 00:00: mouth [place] tablet 00 daily with Medical breakfast. Branch glipiZIDE 2021-10 Yes [id number] 20mg Take 2 U nivers XL 10 mg 24 2-30 tablets by it y of hr tablet 00:00: mouth [place] 00 daily with Medical breakfast. Branch metformin 2021-10 Yes [id number] 750mg Take 1 [facility] ER 750 mg 2-30 tablet by ity o f 24 hr 00:00: mouth [place] tablet 00 daily with Medical breakfast. Branch glipiZIDE 2021-10 Yes [id number] 20mg Take 2 U nivers XL 10 mg 24 2-30 tablets by it y of hr tablet 00:00: mouth [place] 00 daily with Medical breakfast. Branch metformin 2021-10 Yes [id number] 750mg Take 1 [facility] ER 750 mg 2-30 tablet by ity o f 24 hr 00:00: mouth [place] tablet 00 daily with Medical breakfast. Branch glipiZIDE 2021-10 Yes [id number] 20mg Take 2 U nivers XL 10 mg 24 2-30 tablets by it y of hr tablet 00:00: mouth [place] 00 daily with Medical breakfast. Branch metformin 2021-10 Yes [id number] 750mg Take 1 [facility] ER 750 mg 2-30 tablet by ity o f 24 hr 00:00: mouth [place] tablet 00 daily with Medical breakfast. Branch glipiZIDE 2021-10 Yes [id number] 20mg Take 2 U nivers XL 10 mg 24 2-30 tablets by it y of hr tablet 00:00: mouth [place] 00 daily with Medical breakfast. Branch metformin 2021-10 Yes [id number] 750mg Take 1 [facility] ER 750 mg 2-30 tablet by ity o f 24 hr 00:00: mouth [place] tablet 00 daily with Medical breakfast. Branch glipiZIDE 2021-10 Yes [id number] 20mg Take 2 U nivers XL 10 mg 24 2-30 tablets by it y of hr tablet 00:00: mouth [place] 00 daily with Medical breakfast. [place] metformin 2021-10 Yes [id number] 750mg Take 1 [facility] ER 750 mg 2-30 tablet by ity o f 24 hr 00:00: mouth [place] tablet 00 daily with Medical breakfast. [place] glipiZIDE 2021-10 Yes [id number] 20mg Take 2 U nivers XL 10 mg 24 2-30 tablets by it y of hr tablet 00:00: mouth [place] 00 daily with Medical breakfast. [place] metformin 2021-10 Yes [id number] 750mg Take 1 [facility] ER 750 mg 2-30 tablet by ity o f 24 hr 00:00: mouth [place] tablet 00 daily with Medical breakfast. [place] glipiZIDE 2021-10 Yes [id number] 20mg Take 2 U nivers XL 10 mg 24 2-30 tablets by it y of hr tablet 00:00: mouth [place] 00 daily with Medical breakfast. [place] metformin 2021-10 Yes [id number] 750mg Take 1 [facility] ER 750 mg 2-30 tablet by ity o f 24 hr 00:00: mouth [place] tablet 00 daily with Medical breakfast. Branch glipiZIDE 2021-10 Yes [id number] 20mg Take 2 U nivers XL 10 mg 24 2-30 tablets by it y of hr tablet 00:00: mouth [place] 00 daily with Medical breakfast. [place] metformin 2021-10 Yes [id number] 750mg Take 1 [facility] ER 750 mg 2-30 tablet by ity o f 24 hr 00:00: mouth [place] tablet 00 daily with Medical breakfast. Branch glipiZIDE 2021-10 Yes [id number] 20mg Take 2 U nivers XL 10 mg 24 2-30 tablets by it y of hr tablet 00:00: mouth [place] 00 daily with Medical breakfast. Branch metformin 2021-10 Yes [id number] 750mg Take 1 [facility] ER 750 mg 2-30 tablet by ity o f 24 hr 00:00: mouth [place] tablet 00 daily with Medical breakfast. Branch glipiZIDE 2021-10 Yes [id number] 20mg Take 2 U nivers XL 10 mg 24 2-30 tablets by it y of hr tablet 00:00: mouth [place] 00 daily with Medical breakfast. Branch metformin 2021-10 Yes [id number] 750mg Take 1 [facility] ER 750 mg 2-30 tablet by ity o f 24 hr 00:00: mouth [place] tablet 00 daily with Medical breakfast. Branch glipiZIDE 2021-10 Yes [id number] 20mg Take 2 U nivers XL 10 mg 24 2-30 tablets by it y of hr tablet 00:00: mouth [place] 00 daily with Medical breakfast. [place] metformin 2021-10 Yes [id number] 750mg Take 1 [facility] ER 750 mg 2-30 tablet by ity o f 24 hr 00:00: mouth [place] tablet 00 daily with Medical breakfast. [place] glipiZIDE 2021-10 Yes [id number] 20mg Take 2 U nivers XL 10 mg 24 2-30 tablets by it y of hr tablet 00:00: mouth [place] 00 daily with Medical breakfast. [place] metformin 2021-10 Yes [id number] 750mg Take 1 [facility] ER 750 mg 2-30 tablet by ity o f 24 hr 00:00: mouth [place] tablet 00 daily with Medical breakfast. [place] glipiZIDE 2021-10 Yes [id number] 20mg Take 2 U nivers XL 10 mg 24 2-30 tablets by it y of hr tablet 00:00: mouth [place] 00 daily with Medical breakfast. [place] metformin 2021-10 Yes [id number] 750mg Take 1 [facility] ER 750 mg 2-30 tablet by ity o f 24 hr 00:00: mouth [place] tablet 00 daily with Medical breakfast. [place] glipiZIDE 2021-10 Yes [id number] 20mg Take 2 U nivers XL 10 mg 24 2-30 tablets by it y of hr tablet 00:00: mouth [place] 00 daily with Medical breakfast. [place] metformin 2021-10 Yes [id number] 750mg Take 1 [facility] ER 750 mg 2-30 tablet by ity o f 24 hr 00:00: mouth [place] tablet 00 daily with Medical breakfast. [place] glipiZIDE 2021-10 Yes [id number] 20mg Take 2 U nivers XL 10 mg 24 2-30 tablets by it y of hr tablet 00:00: mouth [place] 00 daily with Medical breakfast. [place] metformin 2021-10 Yes [id number] 750mg Take 1 [facility] ER 750 mg 2-30 tablet by ity o f 24 hr 00:00: mouth [place] tablet 00 daily with Medical breakfast. [place] metformin 2021-10 Yes [id number] 750mg Take 1 [facility] ER 750 mg 2-30 tablet by ity o f 24 hr 00:00: mouth [place] tablet 00 daily with Medical breakfast. [place] metformin 2021-10 Yes [id number] 750mg Take 1 [facility] ER 750 mg 2-30 tablet by ity o f 24 hr 00:00: mouth [place] tablet 00 daily with Medical breakfast. [place] metformin 2021-10 Yes [id number] 750mg Take 1 [facility] ER 750 mg 2-30 tablet by ity o f 24 hr 00:00: mouth [place] tablet 00 daily with Medical breakfast. [place] metformin 2021-10 Yes [id number] 750mg Take 1 [facility] ER 750 mg 2-30 tablet by ity o f 24 hr 00:00: mouth [place] tablet 00 daily with Medical breakfast. [place] glipiZIDE 2021-10- No [id number] 20mg Take 2 [facility] XL 10 mg 24 2-30 07-14 tablets by i ty of hr tablet 00:00: 00:00 mouth [place] 00 :00 daily with Medical breakfast. [place] glipiZIDE 2021-10- No [id number] 20mg Take 2 [facility] XL 10 mg 24 2-30 07-14 tablets by i ty of hr tablet 00:00: 00:00 mouth [place] 00 :00 daily with Medical breakfast. [place] LISINOPRIL 2021-10 Yes [id number] TAKE 1 [facility] 2.5 mg 0-13 TABLET BY ity of tablet 00:00: MOUTH [place] 00 EVERY DAY Medical [place] LISINOPRIL 2021-10 Yes [id number] TAKE 1 [facility] 2.5 mg 0-13 TABLET BY ity of tablet 00:00: MOUTH [place] 00 EVERY DAY Medical [place] LISINOPRIL 2021-10 Yes [id number] TAKE 1 [facility] 2.5 mg 0-13 TABLET BY ity of tablet 00:00: MOUTH [place] 00 EVERY DAY Medical Branch LISINOPRIL 2021-10 Yes [id number] TAKE 1 [facility] 2.5 mg 0-13 TABLET BY ity of tablet 00:00: MOUTH [place] 00 EVERY DAY Medical Branch LISINOPRIL 2021-10 Yes [id number] TAKE 1 [facility] 2.5 mg 0-13 TABLET BY ity of tablet 00:00: MOUTH [place] 00 EVERY DAY Medical Branch LISINOPRIL 2021-10 Yes [id number] TAKE 1 [facility] 2.5 mg 0-13 TABLET BY ity of tablet 00:00: MOUTH [place] 00 EVERY DAY Medical Branch LISINOPRIL 2021-10 Yes [id number] TAKE 1 [facility] 2.5 mg 0-13 TABLET BY ity of tablet 00:00: MOUTH [place] 00 EVERY DAY Medical Branch LISINOPRIL 2021-10 Yes [id number] TAKE 1 [facility] 2.5 mg 0-13 TABLET BY ity of tablet 00:00: MOUTH [place] 00 EVERY DAY Medical Branch LISINOPRIL 2021-10- No [id number] TAKE 1 [facility] 2.5 mg 0-13 01-10 TABLET BY ity of tablet 00:00: 00:00 MOUTH [place] 00 :00 EVERY DAY Medical Branch LISINOPRIL 2021-10- No [id number] TAKE 1 [facility] 2.5 mg 0-13 01-10 TABLET BY ity of tablet 00:00: 00:00 MOUTH [place] 00 :00 EVERY DAY Medical Branch LISINOPRIL 2021-10- No [id number] TAKE 1 [facility] 2.5 mg 0-13 01-10 TABLET BY ity of tablet 00:00: 00:00 MOUTH [place] 00 :00 EVERY DAY Medical Branch rosuvastati Yes [id number] 20mg Take 1 [facility] n (CRESTOR) 9-27 tablet by ity of 20 mg 00:00: mouth at [place] tablet 00 bedtime. Medical Branch ezetimibe Yes [id number] 10mg Take 1 U nivers 10 mg 9-27 tablet by ity of tablet 00:00: mouth in [place] 00 the Medical morning. Branch rosuvastati Yes [id number] 20mg Take 1 [facility] n (CRESTOR) 9-27 tablet by ity of 20 mg 00:00: mouth at [place] tablet 00 bedtime. Medical Branch ezetimibe 2021-0 Yes [id number] 10mg Take 1 U nivers 10 mg 9-27 tablet by ity of tablet 00:00: mouth in [place] 00 the Medical morning. Branch rosuvastati 2021-0 Yes [id number] 20mg Take 1 [facility] n (CRESTOR) 9-27 tablet by ity of 20 mg 00:00: mouth at [place] tablet 00 bedtime. Medical Branch ezetimibe 2021-0 Yes [id number] 10mg Take 1 U nivers 10 mg 9-27 tablet by ity of tablet 00:00: mouth in [place] 00 the Medical morning. Branch rosuvastati 2021-0 Yes [id number] 20mg Take 1 [facility] n (CRESTOR) 9-27 tablet by ity of 20 mg 00:00: mouth at [place] tablet 00 bedtime. Medical Branch ezetimibe 0 Yes [id number] 10mg Take 1 U nivers 10 mg 9-27 tablet by ity of tablet 00:00: mouth in [place] 00 the Medical morning. Branch rosuvastati 0 Yes [id number] 20mg Take 1 [facility] n (CRESTOR) 9-27 tablet by ity of 20 mg 00:00: mouth at [place] tablet 00 bedtime. Medical Branch ezetimibe 0 Yes [id number] 10mg Take 1 U nivers 10 mg 9-27 tablet by ity of tablet 00:00: mouth in [place] 00 the Medical morning. Branch rosuvastati 2021-0 Yes [id number] 20mg Take 1 [facility] n (CRESTOR) 9-27 tablet by ity of 20 mg 00:00: mouth at [place] tablet 00 bedtime. Medical Branch ezetimibe 2021-0 Yes [id number] 10mg Take 1 U nivers 10 mg 9-27 tablet by ity of tablet 00:00: mouth in [place] 00 the Medical morning. Branch rosuvastati 2021-0 Yes [id number] 20mg Take 1 [facility] n (CRESTOR) 9-27 tablet by ity of 20 mg 00:00: mouth at [place] tablet 00 bedtime. Medical Branch ezetimibe 2021-0 Yes [id number] 10mg Take 1 U nivers 10 mg 9-27 tablet by ity of tablet 00:00: mouth in [place] 00 the Medical morning. Branch rosuvastati 2021-0 Yes [id number] 20mg Take 1 [facility] n (CRESTOR) 9-27 tablet by ity of 20 mg 00:00: mouth at [place] tablet 00 bedtime. Medical Branch ezetimibe 2021-0 Yes [id number] 10mg Take 1 [facility] nivers 10 mg 9-27 tablet by ity of tablet 00:00: mouth in [place] 00 the Medical morning. Branch rosuvastati 2021-0 Yes [id number] 20mg Take 1 [facility] n (CRESTOR) 9-27 tablet by ity of 20 mg 00:00: mouth at [place] tablet 00 bedtime. Medical Branch ezetimibe 2021-0 Yes [id number] 10mg Take 1 [facility] nivers 10 mg 9-27 tablet by ity of tablet 00:00: mouth in [place] 00 the Medical morning. Branch rosuvastati 2021-0 Yes [id number] 20mg Take 1 [facility] n (CRESTOR) 9-27 tablet by ity of 20 mg 00:00: mouth at [place] tablet 00 bedtime. Medical Branch ezetimibe 0 Yes [id number] 10mg Take 1 [facility] nivers 10 mg 9-27 tablet by ity of tablet 00:00: mouth in [place] 00 the Medical morning. Branch rosuvastati 2021-0 Yes [id number] 20mg Take 1 [facility] n (CRESTOR) 9-27 tablet by ity of 20 mg 00:00: mouth at [place] tablet 00 bedtime. Medical Branch ezetimibe 2021-0 Yes [id number] 10mg Take 1 [facility] nivers 10 mg 9-27 tablet by ity of tablet 00:00: mouth in [place] 00 the Medical morning. Branch rosuvastati 2021-0 Yes [id number] 20mg Take 1 [facility] n (CRESTOR) 9-27 tablet by ity of 20 mg 00:00: mouth at [place] tablet 00 bedtime. Medical Branch ezetimibe 2021-0 Yes [id number] 10mg Take 1 [facility] nivers 10 mg 9-27 tablet by ity of tablet 00:00: mouth in [place] 00 the Medical morning. Branch rosuvastati 2021-0 Yes [id number] 20mg Take 1 [facility] n (CRESTOR) 9-27 tablet by ity of 20 mg 00:00: mouth at [place] tablet 00 bedtime. Medical Branch ezetimibe 0 Yes [id number] 10mg Take 1 U nivers 10 mg 9-27 tablet by ity of tablet 00:00: mouth in [place] 00 the Medical morning. Branch rosuvastati Yes [id number] 20mg Take 1 [facility] n (CRESTOR) 9-27 tablet by ity of 20 mg 00:00: mouth at [place] tablet 00 bedtime. Medical Branch ezetimibe 0 Yes [id number] 10mg Take 1 U nivers 10 mg 9-27 tablet by ity of tablet 00:00: mouth in [place] 00 the Medical morning. Branch ezetimibe 0 Yes [id number] 10mg Take 1 U nivers 10 mg 9-27 tablet by ity of tablet 00:00: mouth in [place] 00 the Medical morning. Branch ezetimibe 0 Yes [id number] 10mg Take 1 [facility] nivers 10 mg 9-27 tablet by ity of tablet 00:00: mouth in [place] 00 the Medical morning. Branch ezetimibe Yes [id number] 10mg Take 1 [facility] nivers 10 mg 9-27 tablet by ity of tablet 00:00: mouth in [place] 00 the Medical morning. Branch ezetimibe 2022- No [id number] 10mg Take 1 [facility] 10 mg 9-27 05-22 tablet by ity of tablet 00:00: 00:00 mouth in [place] 00 :00 the Medical morning. Branch rosuvastati 2022- No [id number] 20mg Take 1 [facility] n (CRESTOR) 9-27 04-03 tablet by it y of 20 mg 00:00: 00:00 mouth at [place] tablet 00 :00 bedtime. Medical Branch icosapent 2021- No [id number] 2g Take 2 [facility] ethyL 9-14 10-15 capsules ity of (VASCEPA) 1 00:00: 04:59 by mouth [place] gram 00 :00 in the Medical capsule morning Branch and 2 capsules in the evening. Do all this for 30 days. icosapent 2021- No [id number] 2g Take 2 [facility] ethyL 9-14 10-15 capsules ity of (VASCEPA) 1 00:00: 04:59 by mouth [place] gram 00 :00 in the Medical capsule morning Branch and 2 capsules in the evening. Do all this for 30 days. icosapent 2021- No [id number] 2g Take 2 [facility] ethyL 9-14 10-15 capsules ity of (VASCEPA) 1 00:00: 04:59 by mouth [place] gram 00 :00 in the Medical capsule morning Branch and 2 capsules in the evening. Do all this for 30 days. icosapent 2021- No [id number] 2g Take 2 [facility] ethyL 9-14 10-15 capsules ity of (VASCEPA) 1 00:00: 04:59 by mouth [place] gram 00 :00 in the Medical capsule morning Branch and 2 capsules in the evening. Do all this for 30 days. icosapent 2021- No [id number] 2g Take 2 [facility] ethyL 9-14 10-15 capsules ity of (VASCEPA) 1 00:00: 04:59 by mouth [place] gram 00 :00 in the Medical capsule morning Branch and 2 capsules in the evening. Do all this for 30 days. semaglutide Yes [id number] .5mg inject 0.5 [facility] (OZEMPIC) 9-12 mg under ity of 0.25 mg or 00:00: the skin [place] as 0.5 mg(2 00 weekly. Medical mg/1.5 mL) Start 0.25 Bra nch PnIj mg weekly for 4 weeks, then 0.5 mg thereafter glipiZIDE Yes [id number] 10mg Take 1 [facility] nivers XL 10 mg 24 9-12 tablet by ity of hr tablet 00:00: mouth [place] 00 daily with Medical breakfast. Branch metformin Yes [id number] 750mg Take 1 [facility] ER 750 mg 9-12 tablet by ity o f 24 hr 00:00: mouth [place] tablet 00 daily with Medical breakfast. Branch semaglutide Yes [id number] .5mg inject 0.5 [facility] (OZEMPIC) 9-12 mg under ity of 0.25 mg or 00:00: the skin [place] 0.5 mg(2 00 weekly. Medical mg/1.5 mL) Start 0.25 Bra nch PnIj mg weekly for 4 weeks, then 0.5 mg thereafter glipiZIDE 2021-0 Yes [id number] 10mg Take 1 [facility] nivers XL 10 mg 24 9-12 tablet by ity of hr tablet 00:00: mouth [place] 00 daily with Medical breakfast. Branch metformin 2021-0 Yes [id number] 750mg Take 1 [facility] ER 750 mg 9-12 tablet by ity o f 24 hr 00:00: mouth [place] tablet 00 daily with Medical breakfast. Branch semaglutide 2021-0 Yes [id number] .5mg inject 0.5 [facility] (OZEMPIC) 9-12 mg under ity of 0.25 mg or 00:00: the skin [place] 0.5 mg(2 00 weekly. Medical mg/1.5 mL) Start 0.25 Bra nch PnIj mg weekly for 4 weeks, then 0.5 mg thereafter glipiZIDE 2021-0 Yes [id number] 10mg Take 1 U nivers XL 10 mg 24 9-12 tablet by ity of hr tablet 00:00: mouth [place] 00 daily with Medical breakfast. Branch metformin 2021-0 Yes [id number] 750mg Take 1 [facility] ER 750 mg 9-12 tablet by ity o f 24 hr 00:00: mouth [place] tablet 00 daily with Medical breakfast. Branch semaglutide 2021-0 Yes [id number] .5mg inject 0.5 [facility] (OZEMPIC) 9-12 mg under ity of 0.25 mg or 00:00: the skin [place] 0.5 mg(2 00 weekly. Medical mg/1.5 mL) Start 0.25 Bra nch PnIj mg weekly for 4 weeks, then 0.5 mg thereafter glipiZIDE 2021-0 Yes [id number] 10mg Take 1 U nivers XL 10 mg 24 9-12 tablet by ity of hr tablet 00:00: mouth [place] 00 daily with Medical breakfast. Branch metformin 2021-0 Yes [id number] 750mg Take 1 [facility] ER 750 mg 9-12 tablet by ity o f 24 hr 00:00: mouth [place] tablet 00 daily with Medical breakfast. Branch semaglutide 2021-0 Yes [id number] .5mg inject 0.5 [facility] (OZEMPIC) 9-12 mg under ity of 0.25 mg or 00:00: the skin [place] 0.5 mg(2 00 weekly. Medical mg/1.5 mL) Start 0.25 Bra nch PnIj mg weekly for 4 weeks, then 0.5 mg thereafter glipiZIDE 2021-0 Yes [id number] 10mg Take 1 U nivers XL 10 mg 24 9-12 tablet by ity of hr tablet 00:00: mouth [place] 00 daily with Medical breakfast. Branch metformin 2021-0 Yes [id number] 750mg Take 1 [facility] 750 mg 9-12 tablet by ity o f 24 hr 00:00: mouth [place] tablet 00 daily with Medical breakfast. Branch semaglutide 2021-0 Yes [id number] .5mg inject 0.5 [facility] (OZEMPIC) 9-12 mg under ity of 0.25 mg or 00:00: the skin [place] 0.5 mg(2 00 weekly. Medical mg/1.5 mL) Start 0.25 [facility] n[facility] PnIj mg weekly for 4 weeks, then 0.5 mg thereafter glipiZIDE 2021-0 Yes [id number] 10mg Take 1 [facility] n[facility] XL 10 mg 24 9-12 tablet by ity of hr tablet 00:00: mouth [place] 00 daily with Medical breakfast. Branch metformin 2021-0 Yes [id number] 750mg Take 1 [facility] ER 750 mg 9-12 tablet by ity o f 24 hr 00:00: mouth [place] tablet 00 daily with Medical breakfast. Branch semaglutide 2021-0 Yes [id number] .5mg inject 0.5 [facility] (OZEMPIC) 9-12 mg under ity of 0.25 mg or 00:00: the skin [place] 0.5 mg(2 00 weekly. Medical mg/1.5 mL) Start 0.25 [facility] PnIj mg weekly for 4 weeks, then 0.5 mg thereafter glipiZIDE 2021-0 Yes [id number] 10mg Take 1 [facility] XL 10 mg 24 9-12 tablet by ity of hr tablet 00:00: mouth [place] 00 daily with Medical breakfast. Branch metformin 2021-0 Yes [id number] 750mg Take 1 [facility] ER 750 mg 9-12 tablet by ity o f 24 hr 00:00: mouth [place] tablet 00 daily with Medical breakfast. Branch semaglutide 2021-0 Yes [id number] .5mg inject 0.5 [facility] (OZEMPIC) 9-12 mg under ity of 0.25 mg or 00:00: [place] 0.5 mg(2 00 weekly. Medical mg/1.5 mL) Start 0.25 [facility] PnIj mg weekly for 4 weeks, then 0.5 mg thereafter glipiZIDE 2021-0 Yes [id number] 10mg Take 1 [facility] XL 10 mg 24 9-12 tablet by ity of hr tablet 00:00: mouth [place] 00 daily with Medical breakfast. Branch metformin 2021-0 Yes [id number] 750mg Take 1 [facility] ER 750 mg 9-12 tablet by ity o f 24 hr 00:00: mouth [place] tablet 00 daily with Medical breakfast. Branch semaglutide 2021-0 Yes [id number] .5mg inject 0.5 [facility] (OZEMPIC) 9-12 mg under ity of 0.25 mg or 00:00: [place] 0.5 mg(2 00 weekly. Medical mg/1.5 mL) Start 0.25 [facility] PnIj mg weekly for 4 weeks, then 0.5 mg thereafter glipiZIDE 2021-0 Yes [id number] 10mg Take 1 [facility] XL 10 mg 24 9-12 tablet by ity of hr tablet 00:00: mouth [place] 00 daily with Medical breakfast. Branch metformin 2021-0 Yes [id number] 750mg Take 1 [facility] ER 750 mg 9-12 tablet by ity o f 24 hr 00:00: mouth [place] tablet 00 daily with Medical breakfast. Branch semaglutide 2021-0 Yes [id number] .5mg inject 0.5 [facility] (OZEMPIC) 9-12 mg under ity of 0.25 mg or 00:00: [place] 0.5 mg(2 00 weekly. Medical mg/1.5 mL) Start 0.25 [facility] PnIj mg weekly for 4 weeks, then 0.5 mg thereafter glipiZIDE 2021-0 Yes [id number] 10mg Take 1 [facility] XL 10 mg 24 9-12 tablet by ity of hr tablet 00:00: mouth [place] 00 daily with Medical breakfast. Branch metformin 2021-0 Yes [id number] 750mg Take 1 [facility] 750 mg 9-12 tablet by ity o f 24 hr 00:00: mouth [place] tablet 00 daily with Medical breakfast. Branch semaglutide 2021-0 Yes [id number] .[id number] inject 0.5 [facility] (OZEMPIC) 9-12 mg under ity of 0.25 mg or 00:00: [place] 0.[place] mg(2 00 weekly. Medical mg/1.5 mL) Start 0.25 [facility] PnIj mg weekly for 4 weeks, then 0.5 mg thereafter glipiZIDE 2021-0 Yes [id number] 10mg Take 1 [facility] XL 10 mg 24 9-12 tablet by ity of hr tablet 00:00: mouth [place] 00 daily with Medical breakfast. Branch metformin 2021-0 Yes [id number] 750mg Take 1 [facility] 750 mg 9-12 tablet by ity o f 24 hr 00:00: mouth [place] tablet 00 daily with Medical breakfast. Branch semaglutide 2021-0 Yes [id number] .5mg inject 0.5 [facility] (OZEMPIC) 9-12 mg under ity of 0.25 mg or 00:00: [place] 0.[place] mg(2 00 weekly. Medical mg/1.5 mL) Start 0.25 [facility] PnIj mg weekly for 4 weeks, then 0.5 mg thereafter glipiZIDE 2021-0 Yes [id number] 10mg Take 1 [facility] XL 10 mg 24 9-12 tablet by ity of hr tablet 00:00: mouth [place] 00 daily with Medical breakfast. Branch metformin 2021-0 Yes [id number] 750mg Take 1 [facility] ER 750 mg 9-12 tablet by ity o f 24 hr 00:00: mouth [place] tablet 00 daily with Medical breakfast. Branch semaglutide 2021-0 Yes [id number] .5mg inject 0.5 [facility] (OZEMPIC) 9-12 mg under ity of 0.25 mg or 00:00: [place] 0.[place] mg(2 00 weekly. Medical mg/1.5 mL) Start 0.25 [facility] PnIj mg weekly for 4 weeks, then 0.5 mg thereafter glipiZIDE 2021-0 Yes [id number] 10mg Take 1 [facility] XL 10 mg 24 9-12 tablet by ity of hr tablet 00:00: mouth [place] 00 daily with Medical breakfast. Branch metformin 2021-0 Yes [id number] 750mg Take 1 [facility] 750 mg 9-12 tablet by ity o f 24 hr 00:00: mouth [place] tablet 00 daily with Medical breakfast. Branch semaglutide 2022-0 Yes [id number] .5mg inject 0.5 [facility] (OZEMPIC) 9-12 mg under ity of 0.25 mg or 00:00: [place] 0.[place] mg(2 00 weekly. Medical mg/1.5 mL) Start 0.25 [facility] PnIj mg weekly for 4 weeks, then 0.5 mg thereafter semaglutide 2022-0 Yes [id number] .5mg inject 0.5 [facility] (OZEMPIC) 9-12 mg under ity of 0.25 mg or 00:00: [place] 0.[place] mg(2 00 weekly. Medical mg/1.5 mL) Start 0.25 [facility] PnIj mg weekly for 4 weeks, then 0.5 mg thereafter semaglutide 2022-0 Yes [id number] .5mg inject 0.5 [facility] (OZEMPIC) 9-12 mg under ity of 0.25 mg or 00:00: [place] 0.5 mg(2 00 weekly. Medical mg/1.5 mL) Start 0.25 [facility] PnIj mg weekly for 4 weeks, then 0.5 mg thereafter semaglutide 2022-0 Yes [id number] .5mg inject 0.5 [facility] (OZEMPIC) 9-12 mg under ity of 0.25 mg or 00:00: [place] 0.5 mg(2 00 weekly. Medical mg/1.5 mL) Start 0.25 [facility] PnIj mg weekly for 4 weeks, then 0.5 mg thereafter semaglutide 2022-0 Yes [id number] .[id number] inject 0.5 [facility] (OZEMPIC) 9-12 mg under ity of 0.25 mg or 00:00: [place] 0.[place] mg(2 00 weekly. Medical mg/1.5 mL) Start 0.25 [facility] PnIj mg weekly for 4 weeks, then 0.5 mg thereafter semaglutide 2022-0 Yes [id number] .5mg inject 0.5 [facility] (OZEMPIC) 9-12 mg under ity of 0.25 mg or 00:00: [place] 0.[place] mg(2 00 weekly. Medical mg/1.5 mL) Start 0.25 [facility] PnIj mg weekly for 4 weeks, then 0.5 mg thereafter semaglutide 2022-0 Yes [id number] .5mg inject 0.5 [facility] (OZEMPIC) 9-12 mg under ity of 0.25 mg or 00:00: [place] 0.[place] mg(2 00 weekly. Medical mg/1.5 mL) Start 0.25 [facility] PnIj mg weekly for 4 weeks, then 0.5 mg thereafter semaglutide 2022-0 Yes [id number] .5mg inject 0.5 [facility] (OZEMPIC) 9-12 mg under ity of 0.25 mg or 00:00: [place] 0.[place] mg(2 00 weekly. Medical mg/1.5 mL) Start 0.25 [facility] PnIj mg weekly for 4 weeks, then 0.5 mg thereafter semaglutide 2022-0 Yes [id number] .5mg inject 0.5 [facility] (OZEMPIC) 9-12 mg under ity of 0.25 mg or 00:00: [place] 0.[place] mg(2 00 weekly. Medical mg/1.5 mL) Start 0.25 [facility] PnIj mg weekly for 4 weeks, then 0.5 mg thereafter semaglutide 2022-0 Yes [id number] .5mg inject 0.5 [facility] (OZEMPIC) 9-12 mg under ity of 0.25 mg or 00:00: [place] 0.[place] mg(2 00 weekly. Medical mg/1.5 mL) Start 0.25 [facility] PnIj mg weekly for 4 weeks, then 0.5 mg thereafter semaglutide 2022-0 2023- No [id number] .[id number] inject 0.5 [facility] (OZEMPIC) 9-12 06-16 mg under ity o f 0.25 mg or 00:00: 00:00 the skin [place] 0.5 mg(2 00 :00 weekly. Medical mg/1.5 mL) Start 0.25 [facility] PnIj mg weekly for 4 weeks, then 0.5 mg thereafter semaglutide 2022-0 2023- No [id number] .[id number] inject 0.5 [facility] (OZEMPIC) 9-12 06-16 mg under ity o f 0.25 mg or 00:00: 00:00 the skin [place] 0.5 mg(2 00 :00 weekly. Medical mg/1.5 mL) Start 0.25 [facility] PnIj mg weekly for 4 weeks, then 0.5 mg thereafter glipiZIDE 2021-0 2021- No [id number] 10mg Take 1 [facility] XL 10 mg 24 06-20 1230 tablet by it y of hr tablet 00:00: 00:00 mouth [place] 00 :00 daily with Medical breakfast. [facility] metformin 2021-2021- No [id number] 750mg Take 1 [facility] ER 750 mg 06-2030 tablet by ity of 24 hr 00:00: 00:00 mouth [place] tablet 00 :00 daily with Medical breakfast. [place] glipiZIDE 2021-2021- No [id number] 10mg Take 1 [facility] XL 10 mg 24 06-2030 tablet by it y of hr tablet 00:00: 00:00 mouth [place] 00 :00 daily with Medical breakfast. [facility] metformin 2021-2021- No [id number] 750mg Take 1 [facility] ER 750 mg 06-2030 tablet by ity of 24 hr 00:00: 00:00 mouth [place] tablet 00 :00 daily with Medical breakfast. Branch clobetasoL 2-0 Yes [id number] Apply to [facility] 0.05 % 8-05 area(s) 2 ity of ointment 00:00: (two) [place] 00 times Medical daily. Branch clobetasoL 2-0 Yes [id number] Apply to [facility] 0.05 % 8-05 area(s) 2 ity of ointment 00:00: (two) [place] 00 times Medical daily. Branch clobetasoL 2022-0 Yes [id number] Apply to [facility] 0.05 % 8-05 area(s) 2 ity of ointment 00:00: (two) [place] 00 times Medical daily. Branch clobetasoL 2022-0 Yes [id number] Apply to [facility] 0.05 % 8-05 area(s) 2 ity of ointment 00:00: (two) [place] 00 times Medical daily. Branch clobetasoL 2022-0 Yes [id number] Apply to [facility] 0.05 % 8-05 area(s) 2 ity of ointment 00:00: (two) [place] 00 times Medical daily. Branch clobetasoL 2022-0 Yes [id number] Apply to [facility] 0.05 % 8-05 area(s) 2 ity of ointment 00:00: (two) [place] 00 times Medical daily. Branch clobetasoL 2022-0 Yes [id number] Apply to [facility] 0.05 % 8-05 area(s) 2 ity of ointment 00:00: (two) [place] 00 times Medical daily. Branch clobetasoL 2022-0 Yes [id number] Apply to [facility] 0.05 % 8-05 area(s) 2 ity of ointment 00:00: (two) [place] 00 times Medical daily. Branch clobetasoL 2022-0 Yes [id number] Apply to [facility] 0.05 % 8-05 area(s) 2 ity of ointment 00:00: (two) [place] 00 times Medical daily. Branch clobetasoL 2022-0 Yes [id number] Apply to [facility] 0.05 % 8-05 area(s) 2 ity of ointment 00:00: (two) [place] 00 times Medical daily. Branch clobetasoL 2022-0 Yes [id number] Apply to [facility] 0.05 % 8-05 area(s) 2 ity of ointment 00:00: (two) [place] 00 times Medical daily. Branch clobetasoL 2022-0 Yes [id number] Apply to [facility] 0.05 % 8-05 area(s) 2 ity of ointment 00:00: (two) [place] 00 times Medical daily. Branch clobetasoL 2022-0 Yes [id number] Apply to [facility] 0.05 % 8-05 area(s) 2 ity of ointment 00:00: (two) [place] 00 times Medical daily. Branch clobetasoL 2022-0 Yes [id number] Apply to [facility] 0.05 % 8-05 area(s) 2 ity of ointment 00:00: (two) [place] 00 times Medical daily. Branch clobetasoL 2022-0 Yes [id number] Apply to [facility] 0.05 % 8-05 area(s) 2 ity of ointment 00:00: (two) [place] 00 times Medical daily. Branch clobetasoL 2022-0 Yes [id number] Apply to [facility] 0.05 % 8-05 area(s) 2 ity of ointment 00:00: (two) [place] 00 times Medical daily. Branch clobetasoL 2022-0 Yes [id number] Apply to [facility] 0.05 % 8-05 area(s) 2 ity of ointment 00:00: (two) [place] 00 times Medical daily. Branch clobetasoL 2022-0 Yes [id number] Apply to [facility] 0.05 % 8-05 area(s) 2 ity of ointment 00:00: (two) [place] 00 times Medical daily. Branch clobetasoL 2022-0 Yes [id number] Apply to [facility] 0.05 % 8-05 area(s) 2 ity of ointment 00:00: (two) [place] 00 times Medical daily. Branch clobetasoL 2022-0 Yes [id number] Apply to [facility] 0.05 % 8-05 area(s) 2 ity of ointment 00:00: (two) [place] 00 times Medical daily. Branch clobetasoL 2022-0 Yes [id number] Apply to [facility] 0.05 % 8-05 area(s) 2 ity of ointment 00:00: (two) [place] 00 times Medical daily. Branch clobetasoL 2022-0 Yes [id number] Apply to [facility] 0.05 % 8-05 area(s) 2 ity of ointment 00:00: (two) [place] 00 times Medical daily. Branch clobetasoL 2022-0 Yes [id number] Apply to [facility] 0.05 % 8-05 area(s) 2 ity of ointment 00:00: (two) [place] 00 times Medical daily. Branch clobetasoL 2022-0 Yes [id number] Apply to [facility] 0.05 % 8-05 area(s) 2 ity of ointment 00:00: (two) [place] 00 times Medical daily. Branch clobetasoL 2022-0 Yes [id number] Apply to [facility] 0.05 % 8-05 area(s) 2 ity of ointment 00:00: (two) [place] 00 times Medical daily. Branch clobetasoL 2022-0 Yes [id number] Apply to [facility] 0.05 % 8-05 area(s) 2 ity of ointment 00:00: (two) [place] 00 times Medical daily. Branch clobetasoL 2022-0 Yes [id number] Apply to [facility] 0.05 % 8-05 area(s) 2 ity of ointment 00:00: (two) [place] 00 times Medical daily. Branch clobetasoL 2022-0 Yes [id number] Apply to [facility] 0.05 % 8-05 area(s) 2 ity of ointment 00:00: (two) [place] 00 times Medical daily. Branch clobetasoL 2022-0 Yes [id number] Apply to [facility] 0.05 % 8-05 area(s) 2 ity of ointment 00:00: (two) [place] 00 times Medical daily. Branch clobetasoL 2022-0 Yes [id number] Apply to [facility] 0.05 % 8-05 area(s) 2 ity of ointment 00:00: (two) [place] 00 times Medical daily. Branch clobetasoL 2022-0 Yes [id number] Apply to [facility] 0.05 % 8-05 area(s) 2 ity of ointment 00:00: (two) [place] 00 times Medical daily. Branch clobetasoL 2022-0 Yes [id number] Apply to [facility] 0.05 % 8-05 area(s) 2 ity of ointment 00:00: (two) [place] 00 times Medical daily. Branch clobetasoL 2022-0 Yes [id number] Apply to [facility] 0.05 % 8-05 area(s) 2 ity of ointment 00:00: (two) [place] 00 times Medical daily. Branch clobetasoL 2022-0 Yes [id number] Apply to [facility] 0.05 % 8-05 area(s) 2 ity of ointment 00:00: (two) [place] 00 times Medical daily. Branch clobetasoL 2022-0 Yes [id number] Apply to [facility] 0.05 % 8-05 area(s) 2 ity of ointment 00:00: (two) [place] 00 times Medical daily. Branch clobetasoL 2022-0 Yes [id number] Apply to [facility] 0.05 % 8-05 area(s) 2 ity of ointment 00:00: (two) [place] 00 times Medical daily. Branch clobetasoL 2022-0 Yes [id number] Apply to [facility] 0.05 % 8-05 area(s) 2 ity of ointment 00:00: (two) [place] 00 times Medical daily. Branch clobetasoL 2021-0 Yes [id number] Apply to [facility] 0.05 % 8-05 area(s) 2 ity of ointment 00:00: (two) [place] 00 times Medical daily. Branch clobetasoL 2021-0 Yes [id number] Apply to [facility] 0.05 % 8-05 area(s) 2 ity of ointment 00:00: (two) [place] 00 times Medical daily. Branch clobetasoL 2021-0 Yes [id number] Apply to [facility] 0.05 % 8-05 area(s) 2 ity of ointment 00:00: (two) [place] 00 times Medical daily. Branch lisinopriL 2021-0 Yes [id number] 2.5mg Take 1 [facility] 2.5 mg 6-27 tablet by ity of tablet 00:00: mouth [place] 00 daily. Medical Branch lisinopriL 2021-0 Yes [id number] 2.5mg Take 1 [facility] 2.5 mg 6-27 tablet by ity of tablet 00:00: mouth [place] 00 daily. Medical Branch lisinopriL 2021-0 Yes [id number] 2.5mg Take 1 [facility] 2.5 mg 6-27 tablet by ity of tablet 00:00: mouth [place] 00 daily. Medical Branch lisinopriL 2021-0 Yes [id number] 2.5mg Take 1 [facility] 2.5 mg 6-27 tablet by ity of tablet 00:00: mouth [place] 00 daily. Medical Branch lisinopriL 2021-0 Yes [id number] 2.5mg Take 1 [facility] 2.5 mg 6-27 tablet by ity of tablet 00:00: mouth [place] 00 daily. Medical Branch lisinopriL 0 2021- No [id number] 2.5mg Take 1 [facility] 2.5 mg 6-27 [...] [place] 00 NIGHTLY Medical Branch ROSUVASTATI Yes [id number] 20mg TAKE 1 [facility] N 20 mg 5-26 TABLET BY ity of tablet 00:00: MOUTH AT [place] 00 BEDTIME. Medical MUST BE Branch SEEN FOR FURTHER REFILLS ROSUVASTATI Yes [id number] 20mg TAKE 1 [facility] N 20 mg 5-26 TABLET BY ity of tablet 00:00: MOUTH AT [place] 00 BEDTIME. Medical MUST BE Branch SEEN FOR FURTHER REFILLS ROSUVASTATI 2021- No [id number] 20mg TAKE 1 [facility] N 20 mg 5-26 09-27 TABLET BY ity of tablet 00:00: 00:00 MOUTH AT [place] 00 :00 BEDTIME. Medical MUST BE Branch SEEN FOR FURTHER REFILLS ROSUVASTATI 2021- No [id number] 20mg TAKE 1 [facility] N 20 mg 5-26 -27 TABLET BY ity of tablet 00:00: 00:00 MOUTH AT [place] 00 :00 BEDTIME. Medical MUST BE Branch SEEN FOR FURTHER REFILLS famotidine Yes TAKE 1 [facility] rs 20 mg 5-02 TABLET BY ity of tablet 00:00: MOUTH [place] 00 EVERY 12 Medical HOURS FOR Branch 10 DAYS ondansetron Yes TAKE 1 [facility] ers 4 mg tablet 5-02 TABLET BY ity of 00:00: MOUTH [place] 00 EVERY 12 Medical HOURS Branch NEEDED famotidine Yes TAKE 1 [facility] 20 mg 5-02 TABLET BY ity of tablet 00:00: MOUTH [place] 00 EVERY 12 Medical HOURS FOR Branch 10 DAYS ondansetron Yes TAKE 1 [facility] ers 4 mg tablet 5-02 TABLET BY ity of 00:00: MOUTH [place] 00 EVERY 12 Medical HOURS Branch NEEDED famotidine Yes TAKE 1 [facility] 20 mg 5-02 TABLET BY ity of tablet 00:00: MOUTH [place] 00 EVERY 12 Medical HOURS FOR Branch [...] mg by ity of tablet 00:00: mouth 00 (two) Medical times Branch daily. OXcarbazepi 2022-0 Yes 600mg Take 600 U nivers ne 600 mg 4-25 mg by ity of tablet 00:00: mouth (two) Medical times Branch daily. OXcarbazepi 2022-0 Yes 600mg Take 600 U nivers ne 600 mg 4-25 mg by ity of tablet 00:00: mouth 2 [place] 00 (two) Medical times Branch daily. OXcarbazepi [...] by ity of tablet 00:00: mouth 2 [place] (two) Medical times Branch daily. OXcarbazepi 2022-0 Yes 600mg Take 600 U nivers ne 600 mg 4-25 mg by ity of tablet 00:00: mouth 2 [place] (two) Medical times Branch daily. OXcarbazepi 2022-0 Yes 600mg Take 600 [facility] nivers ne 600 mg 4-25 mg by ity of tablet 00:00: mouth 2 [place] (two) Medical times Branch daily. OXcarbazepi 2022-0 Yes 600mg Take 600 [facility] nivers ne 600 mg 4-25 mg by ity of tablet 00:00: mouth 2 [place] (two) Medical times Branch daily. ARIPiprazol 2022-0 Yes 5mg Take 5 mg U nivers e 5 mg 4-12 by mouth ity of tablet 00:00: at [place] [address] bedtime. Medical Branch ARIPiprazol 2022-0 Yes 5mg Take 5 mg U nivers e 5 mg 4-12 by mouth ity of tablet 00:00: at [place] [address] bedtime. Medical Branch ARIPiprazol 2022-0 Yes 5mg Take 5 mg U nivers e 5 mg 4-12 by mouth ity of tablet 00:00: at [place] [address] bedtime. Medical Branch ARIPiprazol 2022-0 Yes 5mg Take 5 mg U nivers e 5 mg 4-12 by mouth ity of tablet 00:00: at [place] [address] bedtime. Medical Branch ARIPiprazol 2022-0 Yes 5mg Take 5 mg U nivers e 5 mg 4-12 by mouth ity of tablet 00:00: at [place] [address] bedtime. Medical Branch ARIPiprazol 2022-0 Yes 5mg Take 5 mg U nivers e 5 mg 4-12 by mouth ity of tablet 00:00: at [place] [address] bedtime. Medical Branch ARIPiprazol 2022-0 Yes 5mg Take 5 mg U nivers e 5 mg 4-12 by mouth ity of tablet 00:00: at [place] [address] bedtime. Medical Branch ARIPiprazol 2022-0 Yes 5mg Take 5 mg U nivers e 5 mg 4-12 by mouth ity of tablet 00:00: at [place] [address] bedtime. Medical Branch ARIPiprazol 2022-0 Yes 5mg Take 5 mg U nivers e 5 mg 4-12 by mouth ity of tablet 00:00: at [place] [address] bedtime. Medical Branch ARIPiprazol 2022-0 Yes 5mg Take 5 mg U nivers e 5 mg 4-12 by mouth ity of tablet 00:00: at [place] [address] bedtime. Medical Branch ARIPiprazol 2022-0 Yes 5mg Take 5 mg U nivers e 5 mg 4-12 by mouth ity of tablet 00:00: at [place] [address] bedtime. Medical Branch ARIPiprazol 2022-0 Yes 5mg Take 5 mg U nivers e 5 mg 4-12 by mouth ity of tablet 00:00: at [place] [address] bedtime. Medical Branch ARIPiprazol 2022-0 Yes 5mg Take 5 mg U nivers e 5 mg 4-12 by mouth ity of tablet 00:00: at [place] [address] bedtime. Medical Branch ARIPiprazol 2022-0 Yes 5mg Take 5 mg U nivers e 5 mg 4-12 by mouth ity of tablet 00:00: at [place] [address] bedtime. Medical Branch ARIPiprazol 2022-0 Yes 5mg Take 5 mg U nivers e 5 mg 4-12 by mouth ity of tablet 00:00: at [place] [address] bedtime. Medical Branch ARIPiprazol 2022-0 Yes 5mg Take 5 mg U nivers e 5 mg 4-12 by mouth ity of tablet 00:00: at [place] [address] bedtime. Medical Branch ARIPiprazol 2022-0 Yes 5mg Take 5 mg U nivers e 5 mg 4-12 by mouth ity of tablet 00:00: at [place] [address] bedtime. Medical Branch ARIPiprazol 2022-0 Yes 5mg Take 5 mg U nivers e 5 mg 4-12 by mouth ity of tablet 00:00: at [place] [address] bedtime. Medical Branch ARIPiprazol 2022-0 Yes 5mg Take 5 mg U nivers e 5 mg 4-12 by mouth ity of tablet 00:00: at [place] [address] bedtime. Medical Branch ARIPiprazol 2022-0 Yes 5mg Take 5 mg U nivers e 5 mg 4-12 by mouth ity of tablet 00:00: at [place] [address] bedtime. Medical Branch ARIPiprazol 2022-0 Yes 5mg Take 5 mg U nivers e 5 mg 4-12 by mouth ity of tablet 00:00: at [place] [address] bedtime. Medical Branch ARIPiprazol 2022-0 Yes 5mg Take 5 mg U nivers e 5 mg 4-12 by mouth ity of tablet 00:00: at [place] [address] bedtime. Medical Branch ARIPiprazol 2022-0 Yes 5mg Take 5 mg U nivers e 5 mg 4-12 by mouth ity of tablet 00:00: at [place] [address] bedtime. Medical Branch ARIPiprazol 2022-0 Yes 5mg Take 5 mg U nivers e 5 mg 4-12 by mouth ity of tablet 00:00: at [place] [address] bedtime. Medical Branch ARIPiprazol 2022-0 Yes 5mg Take 5 mg U nivers e 5 mg 4-12 by mouth ity of tablet 00:00: at [place] [address] bedtime. Medical Branch ARIPiprazol 2022-0 Yes 5mg Take 5 mg U nivers e 5 mg 4-12 by mouth ity of tablet 00:00: at [place] [address] bedtime. Medical Branch ARIPiprazol 2022-0 Yes 5mg Take 5 mg U nivers e 5 mg 4-12 by mouth ity of tablet 00:00: at [place] [address] bedtime. Medical Branch ARIPiprazol 2022-0 Yes 5mg Take 5 mg U nivers e 5 mg 4-12 by mouth ity of tablet 00:00: at [place] [address] bedtime. Medical Branch ARIPiprazol 2022-0 Yes 5mg Take 5 mg U nivers e 5 mg 4-12 by mouth ity of tablet 00:00: at [place] [address] bedtime. Medical Branch ARIPiprazol 2022-0 Yes 5mg Take 5 mg U nivers e 5 mg 4-12 by mouth ity of tablet 00:00: at [place] [address] bedtime. Medical Branch ARIPiprazol 2022-0 Yes 5mg Take 5 mg U nivers e 5 mg 4-12 by mouth ity of tablet 00:00: at [place] [address] bedtime. Medical Branch ARIPiprazol 2022-0 Yes 5mg Take 5 mg U nivers e 5 mg 4-12 by mouth ity of tablet 00:00: at [place] [address] bedtime. Medical Branch ARIPiprazol 2022-0 Yes 5mg Take 5 mg U nivers e 5 mg 4-12 by mouth ity of tablet 00:00: at [place] [address] bedtime. Medical Branch ARIPiprazol 2022-0 Yes 5mg Take 5 mg U nivers e 5 mg 4-12 by mouth ity of tablet 00:00: at [place] [address] bedtime. Medical Branch ARIPiprazol 2022-0 Yes 5mg Take 5 mg U nivers e 5 mg 4-12 by mouth ity of tablet 00:00: at [place] [address] bedtime. Medical Branch ARIPiprazol 2022-0 Yes 5mg Take 5 mg U nivers e 5 mg 4-12 by mouth ity of tablet 00:00: at [place] [address] bedtime. Medical Branch ARIPiprazol 2022-0 Yes 5mg Take 5 mg U nivers e 5 mg 4-12 by mouth ity of tablet 00:00: at [place] [address] bedtime. Medical Branch ARIPiprazol 2-0 Yes 5mg Take 5 mg U nivers e 5 mg 4-12 by mouth ity of tablet 00:00: at [place] [address] bedtime. Medical Branch ARIPiprazol 2-0 Yes 5mg Take 5 mg U nivers e 5 mg 4-12 by mouth ity of tablet 00:00: at [place] [address] bedtime. Medical Branch ARIPiprazol 2-0 Yes 5mg Take 5 mg U nivers e 5 mg 4-12 by mouth ity of tablet 00:00: at [place] [address] bedtime. Medical Branch ivermectin 2022-0 Yes [id number] 13.5mg Take 4.5 [facility] 3 mg tablet 1-12 tablets by it y of 00:00: mouth [place] weekly. Medical Branch ivermectin 2022-0 Yes [id number] 13.5mg Take 4.5 [facility] 3 mg tablet 1-12 tablets by it y of 00:00: mouth [place] weekly. Medical Branch ivermectin 2022-0 Yes [id number] 13.5mg Take 4.5 [facility] 3 mg tablet 1-12 tablets by it y of 00:00: mouth [place] weekly. Medical Branch ivermectin 2022-0 Yes [id number] 13.5mg Take 4.5 [facility] 3 mg tablet 1-12 tablets by it y of 00:00: mouth [place] 00 weekly. Medical Branch ivermectin 2-0 Yes [id number] 13.5mg Take 4.5 [facility] 3 mg tablet 1-12 tablets by it y of 00:00: mouth [place] 00 weekly. Medical Branch ivermectin 2-0 Yes [id number] 13.5mg Take 4.5 [facility] 3 mg tablet 1-12 tablets by it y of 00:00: mouth [place] 00 weekly. Medical Branch ivermectin 2-0 Yes [id number] 13.5mg Take 4.5 [facility] 3 mg tablet 1-12 tablets by it y of 00:00: mouth [place] 00 weekly. Medical Branch ivermectin 2021-0 Yes [id number] 13.5mg Take 4.5 [facility] 3 mg tablet 1-12 tablets by it y of 00:00: mouth [place] 00 weekly. Medical Branch ivermectin 2021-0 Yes [id number] 13.5mg Take 4.5 [facility] 3 mg tablet 1-12 tablets by it y of 00:00: mouth [place] 00 weekly. Medical Branch ivermectin 2021-0 Yes [id number] 13.5mg Take 4.5 [facility] 3 mg tablet 1-12 tablets by it y of 00:00: mouth [place] 00 weekly. Medical Branch ivermectin 2-0 Yes [id number] 13.5mg Take 4.5 [facility] 3 mg tablet 1-12 tablets by it y of 00:00: mouth [place] 00 weekly. Medical Branch ivermectin 2-0 Yes [id number] 13.5mg Take 4.5 [facility] 3 mg tablet 1-12 tablets by it y of 00:00: mouth [place] 00 weekly. Medical Branch ivermectin 2-0 Yes [id number] 13.5mg Take 4.5 [facility] 3 mg tablet 1-12 tablets by it y of 00:00: mouth [place] 00 weekly. Medical Branch ivermectin 2-0 Yes [id number] 13.5mg Take 4.5 [facility] 3 mg tablet 1-12 tablets by it y of 00:00: mouth [place] 00 weekly. Medical Branch ivermectin 2-0 Yes [id number] 13.5mg Take 4.5 [facility] 3 mg tablet 1-12 tablets by it y of 00:00: mouth [place] 00 weekly. Medical Branch ivermectin 2-0 Yes [id number] 13.5mg Take 4.5 [facility] 3 mg tablet 1-12 tablets by it y of 00:00: mouth [place] 00 weekly. [facility] ivermectin 2-0 Yes [id number] 13.5mg Take 4.5 [facility] 3 mg tablet 1-12 tablets by it y of 00:00: mouth [place] 00 weekly. [facility] ivermectin 2-0 Yes [id number] 13.5mg Take 4.5 [facility] 3 mg tablet 1-12 tablets by it y of 00:00: mouth [place] 00 weekly. [facility] ivermectin 2-0 Yes [id number] 13.5mg Take 4.5 [facility] 3 mg tablet 1-12 tablets by it y of 00:00: mouth [place] 00 weekly. [facility] ivermectin 2-0 Yes [id number] 13.5mg Take 4.5 [facility] 3 mg tablet 1-12 tablets by it y of 00:00: mouth [place] 00 weekly. [facility] ivermectin 2-0 Yes [id number] 13.5mg Take 4.5 [facility] 3 mg tablet 1-12 tablets by it y of 00:00: mouth [place] 00 weekly. [facility] ivermectin 2-0 Yes [id number] 13.5mg Take 4.5 [facility] 3 mg tablet 1-12 tablets by it y of 00:00: mouth [place] 00 weekly. [facility] ivermectin 2-0 Yes [id number] 13.5mg Take 4.5 [facility] 3 mg tablet 1-12 tablets by it y of 00:00: mouth [place] 00 weekly. [facility] ivermectin 2-0 Yes [id number] 13.5mg Take 4.5 [facility] 3 mg tablet 1-12 tablets by it y of 00:00: mouth [place] 00 weekly. [facility] ivermectin 2-0 Yes [id number] 13.5mg Take 4.5 [facility] 3 mg tablet 1-12 tablets by it y of 00:00: mouth [place] 00 weekly. [facility] ivermectin 2022-0 Yes [id number] 13.5mg Take 4.5 [facility] 3 mg tablet 1-12 tablets by it y of 00:00: mouth [place] 00 weekly. [facility] ivermectin 2-0 Yes [id number] 13.5mg Take 4.5 [facility] 3 mg tablet 1-12 tablets by it y of 00:00: mouth [place] 00 weekly. [facility] ivermectin 2-0 Yes [id number] 13.5mg Take 4.5 [facility] 3 mg tablet 1-12 tablets by it y of 00:00: mouth [place] 00 weekly. [facility] ivermectin 2-0 Yes [id number] 13.5mg Take 4.5 [facility] 3 mg tablet 1-12 tablets by it y of 00:00: mouth [place] 00 weekly. [facility] ivermectin 2-0 Yes [id number] 13.5mg Take 4.5 [facility] 3 mg tablet 1-12 tablets by it y of 00:00: mouth [place] 00 weekly. [facility] ivermectin 2021-0 Yes [id number] 13.5mg Take 4.5 [facility] 3 mg tablet 1-12 tablets by it y of 00:00: mouth [place] 00 weekly. [facility] ivermectin 2-0 Yes [id number] 13.5mg Take 4.5 [facility] 3 mg tablet 1-12 tablets by it y of 00:00: mouth [place] 00 weekly. [facility] ivermectin 2-0 Yes [id number] 13.5mg Take 4.5 [facility] 3 mg tablet 1-12 tablets by it y of 00:00: mouth [place] 00 weekly. [facility] ivermectin 2021-0 Yes [id number] 13.5mg Take 4.5 [facility] 3 mg tablet 1-12 tablets by it y of 00:00: mouth [place] 00 weekly. [facility] ivermectin 2-0 Yes [id number] 13.5mg Take 4.5 [facility] 3 mg tablet 1-12 tablets by it y of 00:00: mouth [place] 00 weekly. [facility] ivermectin 2-0 Yes [id number] 13.5mg Take 4.5 [facility] 3 mg tablet 1-12 tablets by it y of 00:00: mouth [place] 00 weekly. [facility] ivermectin 2-0 Yes [id number] 13.5mg Take 4.5 [facility] 3 mg tablet 1-12 tablets by it y of 00:00: mouth [place] 00 weekly. [facility] ivermectin 2-0 Yes [id number] 13.5mg Take 4.5 [facility] 3 mg tablet 1-12 tablets by it y of 00:00: mouth [place] 00 weekly. [facility] ivermectin 2-0 Yes [id number] 13.5mg Take 4.5 [facility] 3 mg tablet 1-12 tablets by it y of 00:00: mouth . [facility] ivermectin 0 Yes [id number] 13.5mg Take 4.5 [facility] 3 mg tablet 1-12 tablets by it y of 00:00: mouth weekly. [facility] citalopram 2020-10 Yes 10mg Take [...] mouth. ity of (TRAZODONE 13:30: [place] ORAL) [facility] citalopram 2020-10 Yes 10mg Take 10 mg U nivers 10 mg 1-29 by mouth ity of tablet 13:30: daily. [facility] trazodone 2020-10 Yes Take by Unive rs HCl 11-06 mouth. ity of (TRAZODONE 13:30: [place] ORAL) [facility] citalopram 2020-10 Yes 10mg Take 10 mg U nivers 10 mg 1-29 by mouth ity of tablet 13:30: daily. [facility] trazodone 2020-10 Yes Take by Unive rs HCl 11-06 mouth. ity of (TRAZODONE 13:30: [place] ORAL) [facility] citalopram 2020-10 Yes 10mg Take 10 mg U nivers 10 mg 1-29 by mouth ity of tablet 13:30: daily. [facility] trazodone 2020-10 Yes Take by Unive rs HCl 11-06 mouth. ity of (TRAZODONE 13:30: [place] ORAL) [facility] citalopram 2020-10 Yes 10mg Take 10 mg U nivers 10 mg 1-29 by mouth ity of tablet 13:30: daily. [facility] trazodone 2020-10 Yes Take by Unive rs HCl 29 mouth. ity of (TRAZODONE 13:30: [place] ORAL) [facility] citalopram 2020-10 Yes 10mg Take 10 mg U nivers 10 mg 1-29 by mouth ity of tablet 13:30: daily. [facility] trazodone 2020-10 Yes Take by Unive rs HCl 29 mouth. ity of (TRAZODONE 13:30: [place] ORAL) [facility] citalopram 2020-10 Yes 10mg Take 10 mg U nivers 10 mg 1-29 by mouth ity of tablet 13:30: daily. [facility] trazodone 2020-10 Yes Take by Unive rs HCl 29 mouth. ity of (TRAZODONE 13:30: [place] ORAL) [facility] citalopram 2020-10 Yes 10mg Take 10 mg U nivers 10 mg 1-29 by mouth ity of tablet 13:30: daily. [facility] trazodone 2020-10 Yes Take by Unive rs HCl 29 mouth. ity of (TRAZODONE 13:30: [place] ORAL) [facility] citalopram 2020-10 Yes 10mg Take 10 mg U nivers 10 mg 1-29 by mouth ity of tablet 13:30: daily. [facility] trazodone 2020-10 Yes Take by Unive rs HCl 11-06 mouth. ity of (TRAZODONE 13:30: [place] ORAL) [facility] citalopram 2020-10 Yes 10mg Take 10 mg U nivers 10 mg 1-29 by mouth ity of tablet 13:30: daily. [facility] trazodone 2020-10 Yes Take by Unive rs HCl 29 mouth. ity of (TRAZODONE 13:30: [place] ORAL) [facility] citalopram 2020-10 Yes 10mg Take 10 mg U nivers 10 mg 1-29 by mouth ity of tablet 13:30: daily. [facility] trazodone 2020-10 Yes Take by Unive rs HCl 11-06 mouth. ity of (TRAZODONE 13:30: [place] ORAL) [facility] citalopram 2020-10 Yes 10mg Take 10 mg U nivers 10 mg 1-29 by mouth ity of tablet 13:30: daily. [facility] trazodone 2020-10 Yes Take by Unive rs HCl 29 mouth. ity of (TRAZODONE 13:30: [place] ORAL) [facility] citalopram 2020-10 Yes 10mg Take 10 mg U nivers 10 mg 1-29 by mouth ity of tablet 13:30: daily. [facility] trazodone 2020-10 Yes Take by [...] mouth. ity of (TRAZODONE 13:30: [place] ORAL) [facility] citalopram 2020-10 Yes 10mg Take 10 mg U nivers 10 mg 1-29 by mouth ity of tablet 13:30: daily. [facility] trazodone 2020-10 Yes Take by [...] by mouth ity of tablet 13:30: daily. [facility] trazodone 2020-10 Yes Take by [...] mouth. ity of (TRAZODONE 13:30: [place] ORAL) [facility] citalopram 2020-10 Yes 10mg Take 10 mg U nivers 10 mg 1-29 by mouth ity of tablet 13:30: daily. [facility] trazodone 2020-10 Yes Take by Unive rs HCl 1-29 mouth. ity of (TRAZODONE 13:30: [place] ORAL) [facility] citalopram 2020-10 Yes 10mg Take 10 mg U nivers 10 mg 1-29 by mouth ity of tablet 13:30: daily. [facility] trazodone 2020-10 Yes Take by Unive rs HCl 1-29 mouth. ity of (TRAZODONE 13:30: [place] ORAL) [facility] citalopram 2020-10 Yes 10mg Take 10 mg U nivers 10 mg 1-29 by mouth ity of tablet 13:30: daily. [facility] trazodone 2020-10 Yes Take by [...] by mouth ity of tablet 13:30: daily. [facility] trazodone 2020-10 Yes Take by [...] by mouth ity of tablet 13:30: daily. [facility] trazodone 2020-10 Yes Take by Unive rs HCl 11-06 mouth. ity of (TRAZODONE 13:30: [place] ORAL) [facility] citalopram 2020-10 Yes 10mg Take 10 mg U nivers 10 mg 11-06 by mouth ity of tablet 13:30: daily. [place] [facility] trazodone 2020-10 Yes Take by Unive rs HCl 11-06 mouth. ity of (TRAZODONE 13:30: [place] ORAL) [facility] cetirizine Yes [id number] 10mg Take 1 Tab Univers (ZYRTEC) 10 1-03 by mouth ity of mg tablet 00:00: daily. [place] [facility] cetirizine Yes [id number] 10mg Take 1 Tab Univers (ZYRTEC) 10 1-03 by mouth ity of mg tablet 00:00: daily. [place] [facility] cetirizine Yes [id number] 10mg Take 1 Tab Univers (ZYRTEC) 10 1-03 by mouth ity of mg tablet 00:00: daily. [place] [facility] cetirizine Yes [id number] 10mg Take 1 Tab [facility] (ZYRTEC) 10 1-03 by mouth ity of mg tablet 00:00: daily. [place] [facility] cetirizine Yes [id number] 10mg Take 1 Tab [facility] (ZYRTEC) 10 1-03 by mouth ity of mg tablet 00:00: daily. [place] [facility] cetirizine Yes [id number] 10mg Take 1 Tab [facility] (ZYRTEC) 10 1-03 by mouth ity of mg tablet 00:00: daily. [place] [facility] cetirizine Yes [id number] 10mg Take 1 Tab Univers (ZYRTEC) 10 1-03 by mouth ity of mg tablet 00:00: daily. [place] [facility] cetirizine Yes [id number] 10mg Take 1 Tab Univers (ZYRTEC) 10 1-03 by mouth ity of mg tablet 00:00: daily. [place] [facility] cetirizine Yes [id number] 10mg Take 1 Tab Univers (ZYRTEC) 10 1-03 by mouth ity of mg tablet 00:00: daily. [facility] cetirizine Yes [id number] 10mg Take 1 Tab Univers (ZYRTEC) 10 1-03 by mouth ity of mg tablet 00:00: daily. [facility] cetirizine Yes [id number] 10mg Take 1 Tab Univers (ZYRTEC) 10 1-03 by mouth ity of mg tablet 00:00: daily. [facility] cetirizine Yes [id number] 10mg Take 1 Tab Univers (ZYRTEC) 10 1-03 by mouth ity of mg tablet 00:00: daily. [place] [facility] cetirizine Yes [id number] 10mg Take 1 Tab Univers (ZYRTEC) 10 1-03 by mouth ity of mg tablet 00:00: daily. [place] [facility] cetirizine Yes [id number] 10mg Take 1 Tab Univers (ZYRTEC) 10 1-03 by mouth ity of mg tablet 00:00: daily. [facility] cetirizine Yes [id number] 10mg Take 1 Tab Univers (ZYRTEC) 10 1-03 by mouth ity of mg tablet 00:00: daily. [place] [facility] cetirizine Yes [id number] 10mg Take 1 Tab Univers (ZYRTEC) 10 1-03 by mouth ity of mg tablet 00:00: daily. [place] [facility] cetirizine Yes [id number] 10mg Take 1 Tab Univers (ZYRTEC) 10 1-03 by mouth ity of mg tablet 00:00: daily. [facility] cetirizine Yes [id number] 10mg Take 1 Tab Univers (ZYRTEC) 10 1-03 by mouth ity of mg tablet 00:00: daily. [place] [facility] cetirizine Yes [id number] 10mg Take 1 Tab Univers (ZYRTEC) 10 1-03 by mouth ity of mg tablet 00:00: daily. [place] [facility] cetirizine Yes [id number] 10mg Take 1 Tab Univers (ZYRTEC) 10 1-03 by mouth ity of mg tablet 00:00: daily. [facility] cetirizine Yes [id number] 10mg Take 1 Tab Univers (ZYRTEC) 10 1-03 by mouth ity of mg tablet 00:00: daily. [facility] cetirizine Yes [id number] 10mg Take 1 Tab Univers (ZYRTEC) 10 1-03 by mouth ity of mg tablet 00:00: daily. [facility] cetirizine Yes [id number] 10mg Take 1 Tab Univers (ZYRTEC) 10 1-03 by mouth ity of mg tablet 00:00: daily. [facility] cetirizine Yes [id number] 10mg Take 1 Tab Univers (ZYRTEC) 10 1-03 by mouth ity of mg tablet 00:00: daily. [facility] cetirizine Yes [id number] 10mg Take 1 Tab Univers (ZYRTEC) 10 1-03 by mouth ity of mg tablet 00:00: daily. [facility] cetirizine Yes [id number] 10mg Take 1 Tab Univers (ZYRTEC) 10 1-03 by mouth ity of mg tablet 00:00: daily. [facility] cetirizine Yes [id number] 10mg Take 1 Tab Univers (ZYRTEC) 10 1-03 by mouth ity of mg tablet 00:00: daily. [facility] cetirizine Yes [id number] 10mg Take 1 Tab Univers (ZYRTEC) 10 1-03 by mouth ity of mg tablet 00:00: daily. [facility] cetirizine Yes [id number] 10mg Take 1 Tab Univers (ZYRTEC) 10 1-03 by mouth ity of mg tablet 00:00: daily. [facility] cetirizine Yes [id number] 10mg Take 1 Tab Univers (ZYRTEC) 10 1-03 by mouth ity of mg tablet 00:00: daily. [facility] cetirizine Yes [id number] 10mg Take 1 Tab Univers (ZYRTEC) 10 1-03 by mouth ity of mg tablet 00:00: daily. [address] cetirizine Yes [id number] 10mg Take 1 Tab Univers (ZYRTEC) 10 1-03 by mouth ity of mg tablet 00:00: daily. [address] cetirizine Yes [id number] 10mg Take 1 Tab Univers (ZYRTEC) 10 1-03 by mouth ity of mg tablet 00:00: daily. [address] cetirizine Yes [id number] 10mg Take 1 Tab Univers (ZYRTEC) 10 1-03 by mouth ity of mg tablet 00:00: daily. [address] cetirizine Yes [id number] 10mg Take 1 Tab Univers (ZYRTEC) 10 1-03 by mouth ity of mg tablet 00:00: daily. [address] cetirizine Yes [id number] 10mg Take 1 Tab Univers (ZYRTEC) 10 1-03 by mouth ity of mg tablet 00:00: daily. [address] cetirizine Yes [id number] 10mg Take 1 Tab [facility] (ZYRTEC) 10 1-03 by mouth ity of mg tablet 00:00: daily. [address] cetirizine Yes [id number] 10mg Take 1 Tab [facility] (ZYRTEC) 10 1-03 by mouth ity of mg tablet 00:00: daily. [address] cetirizine Yes [id number] 10mg Take 1 Tab [facility] (ZYRTEC) 10 1-03 by mouth ity of mg tablet 00:00: daily. [address] cetirizine Yes [id number] 10mg Take 1 Tab [facility] (ZYRTEC) 10 1-03 by mouth ity of mg tablet 00:00: daily. [address] Immunizations Ordered Immunization Filled Immunization Date Status Commen ts Source Name Name TDAP 2023-05-26 Completed [facility] 00:00:00 [facility] TDAP 2023-05-26 Completed [facility] 00:00:00 [facility] SARS-COV-2 COVID-19 2021-09-06 Completed Unive [facility] [employer] VACCINE 00:00:00 [facility] SARS-COV-2 COVID-19 2021-09-06 Completed Unive rsity of PFIZER VACCINE 00:00:00 [facility] SARS-COV-2 COVID-19 2021-09-06 Completed Unive rsity of PFIZER VACCINE 00:00:00 [facility] SARS-COV-2 COVID-19 2021-09-06 Completed Unive rsity of PFIZER VACCINE 00:00:00 [facility] SARS-COV-2 COVID-19 2021-09-06 Completed Unive rsity of PFIZER VACCINE 00:00:00 [facility] [place] [facility] SARS-COV-2 COVID-19 2021-09-06 Completed Unive rsity of PFIZER VACCINE 00:00:00 [facility] SARS-COV-2 COVID-19 2021-09-06 Completed Unive rsity of PFIZER VACCINE 00:00:00 [facility] SARS-COV-2 COVID-19 2021-09-06 Completed Unive rsity of PFIZER VACCINE 00:00:00 [facility] SARS-COV-2 COVID-19 2021-09-06 Completed Unive rsity of PFIZER VACCINE 00:00:00 [facility] SARS-COV-2 COVID-19 2021-09-06 Completed Unive rsity of PFIZER VACCINE 00:00:00 [facility] SARS-COV-2 COVID-19 2021-09-06 Completed Unive rsity of PFIZER VACCINE 00:00:00 [facility] SARS-COV-2 COVID-19 2021-09-06 Completed Unive rsity of PFIZER VACCINE 00:00:00 [facility] SARS-COV-2 COVID-19 2021-09-06 Completed Unive rsity of PFIZER VACCINE 00:00:00 [facility] SARS-COV-2 COVID-19 2021-09-06 Completed Unive rsity of PFIZER VACCINE 00:00:00 [facility] SARS-COV-2 COVID-19 2021-09-06 Completed Unive rsity of PFIZER VACCINE 00:00:00 [facility] SARS-COV-2 COVID-19 2021-09-06 Completed Unive rsity of PFIZER VACCINE 00:00:00 [facility] SARS-COV-2 COVID-19 2021-09-06 Completed Unive rsity of PFIZER VACCINE 00:00:00 [place] [facility] SARS-COV-2 COVID-19 2021-09-06 Completed Unive rsity of PFIZER VACCINE 00:00:00 [facility] [place] [facility] SARS-COV-2 COVID-19 2021-09-06 Completed Unive rsity of PFIZER VACCINE 00:00:00 [facility] [place] [facility] SARS-COV-2 COVID-19 2021-09-06 Completed Unive rsity of PFIZER VACCINE 00:00:00 [facility] [place] [facility] SARS-COV-2 COVID-19 2021-09-06 Completed Unive rsity of PFIZER VACCINE 00:00:00 [facility] [place] [facility] SARS-COV-2 COVID-19 2021-09-06 Completed Unive rsity of PFIZER VACCINE 00:00:00 [facility] [place] [facility] SARS-COV-2 COVID-19 2021-09-06 Completed Unive rsity of PFIZER VACCINE 00:00:00 [facility] [place] [facility] SARS-COV-2 COVID-19 2021-09-06 Completed Unive rsity of PFIZER VACCINE 00:00:00 [facility] [place] [facility] SARS-COV-2 COVID-19 2021-09-06 Completed Unive rsity of PFIZER VACCINE 00:00:00 [facility] [place] [facility] SARS-COV-2 COVID-19 2021-09-06 Completed Unive rsity of PFIZER VACCINE 00:00:00 [facility] [place] [facility] SARS-COV-2 COVID-19 2021-09-06 Completed Unive rsity of PFIZER VACCINE 00:00:00 [facility] [place] [facility] SARS-COV-2 COVID-19 2021-09-06 Completed Unive rsity of PFIZER VACCINE 00:00:00 [facility] [place] [facility] SARS-COV-2 COVID-19 2021-09-06 Completed Unive rsity of PFIZER VACCINE 00:00:00 [facility] [place] [facility] SARS-COV-2 COVID-19 2021-09-06 Completed Unive rsity of PFIZER VACCINE 00:00:00 [facility] [place] [facility] SARS-COV-2 COVID-19 2021-09-06 Completed Unive rsity of PFIZER VACCINE 00:00:00 [facility] [place] [facility] SARS-COV-2 COVID-19 2021-09-06 Completed Unive rsity of PFIZER VACCINE 00:00:00 [facility] [place] [facility] SARS-COV-2 COVID-19 2021-09-06 Completed Unive rsity of PFIZER VACCINE 00:00:00 [facility] [place] [facility] SARS-COV-2 COVID-19 2021-09-06 Completed Unive rsity of PFIZER VACCINE 00:00:00 [facility] [place] [facility] SARS-COV-2 COVID-19 2021-09-06 Completed Unive rsity of PFIZER VACCINE 00:00:00 [facility] [place] [facility] SARS-COV-2 COVID-19 2021-09-06 Completed Unive rsity of PFIZER VACCINE 00:00:00 [facility] [place] [facility] SARS-COV-2 COVID-19 2021-09-06 Completed Unive rsity of PFIZER VACCINE 00:00:00 [facility] [place] [facility] SARS-COV-2 COVID-19 2021-09-06 Completed Unive rsity of PFIZER VACCINE 00:00:00 [facility] [place] [facility] SARS-COV-2 COVID-19 2021-09-06 Completed Unive rsity of PFIZER VACCINE 00:00:00 [facility] [place] [facility] SARS-COV-2 COVID-19 2021-09-06 Completed Unive rsity of PFIZER VACCINE 00:00:00 [facility] [place] [facility] SARS-COV-2 COVID-19 2021-02-06 Completed Unive rsity of PFIZER VACCINE 00:00:00 [facility] [place] [facility] SARS-COV-2 COVID-19 2021-02-06 Completed Unive rsity of PFIZER VACCINE 00:00:00 [facility] [place] [facility] SARS-COV-2 COVID-19 2021-02-06 Completed Unive rsity of PFIZER VACCINE 00:00:00 [facility] [place] [facility] SARS-COV-2 COVID-19 2021-02-06 Completed Unive rsity of PFIZER VACCINE 00:00:00 [facility] [place] [facility] SARS-COV-2 COVID-19 2021-02-06 Completed Unive rsity of PFIZER VACCINE 00:00:00 [facility] [place] [facility] SARS-COV-2 COVID-19 2021-02-06 Completed Unive rsity of PFIZER VACCINE 00:00:00 [facility] SARS-COV-2 COVID-19 2021-02-06 Completed Unive rsity of PFIZER VACCINE 00:00:00 [facility] SARS-COV-2 COVID-19 2021-02-06 Completed Unive rsity of PFIZER VACCINE 00:00:00 [place] [facility] SARS-COV-2 COVID-19 2021-02-06 Completed Unive rsity of PFIZER VACCINE 00:00:00 [facility] [place] [facility] SARS-COV-2 COVID-19 2021-02-06 Completed Unive rsity of PFIZER VACCINE 00:00:00 [facility] [place] [facility] SARS-COV-2 COVID-19 2021-02-06 Completed Unive rsity of PFIZER VACCINE 00:00:00 [facility] [place] [facility] SARS-COV-2 COVID-19 2021-02-06 Completed Unive rsity of PFIZER VACCINE 00:00:00 [facility] [place] [facility] SARS-COV-2 COVID-19 2021-02-06 Completed Unive rsity of PFIZER VACCINE 00:00:00 [facility] [place] [facility] SARS-COV-2 COVID-19 2021-02-06 Completed Unive rsity of PFIZER VACCINE 00:00:00 [facility] [place] [facility] SARS-COV-2 COVID-19 2021-02-06 Completed Unive rsity of PFIZER VACCINE 00:00:00 [facility] [place] [facility] SARS-COV-2 COVID-19 2021-02-06 Completed Unive rsity of PFIZER VACCINE 00:00:00 [facility] [place] [facility] SARS-COV-2 COVID-19 2021-02-06 Completed Unive rsity of PFIZER VACCINE 00:00:00 [facility] [place] [facility] SARS-COV-2 COVID-19 2021-02-06 Completed Unive rsity of PFIZER VACCINE 00:00:00 [facility] [place] [facility] SARS-COV-2 COVID-19 2021-02-06 Completed Unive rsity of PFIZER VACCINE 00:00:00 [facility] [place] [facility] SARS-COV-2 COVID-19 2021-02-06 Completed Unive rsity of PFIZER VACCINE 00:00:00 [facility] [place] [facility] SARS-COV-2 COVID-19 2021-02-06 Completed Unive rsity of PFIZER VACCINE 00:00:00 [facility] [place] [facility] SARS-COV-2 COVID-19 2021-02-06 Completed Unive rsity of PFIZER VACCINE 00:00:00 [facility] [place] [facility] SARS-COV-2 COVID-19 2021-02-06 Completed Unive rsity of PFIZER VACCINE 00:00:00 [facility] [place] [facility] SARS-COV-2 COVID-19 2021-02-06 Completed Unive rsity of PFIZER VACCINE 00:00:00 [facility] [place] [facility] SARS-COV-2 COVID-19 2021-02-06 Completed Unive rsity of PFIZER VACCINE 00:00:00 [facility] [place] [facility] SARS-COV-2 COVID-19 2021-02-06 Completed Unive rsity of PFIZER VACCINE 00:00:00 [facility] [place] [facility] SARS-COV-2 COVID-19 2021-02-06 Completed Unive rsity of PFIZER VACCINE 00:00:00 [facility] [place] [facility] SARS-COV-2 COVID-19 2021-02-06 Completed Unive rsity of PFIZER VACCINE 00:00:00 [facility] [place] [facility] SARS-COV-2 COVID-19 2021-02-06 Completed Unive rsity of PFIZER VACCINE 00:00:00 [facility] [place] [facility] SARS-COV-2 COVID-19 2021-02-06 Completed Unive rsity of PFIZER VACCINE 00:00:00 [facility] [place] [facility] SARS-COV-2 COVID-19 2021-02-06 Completed Unive rsity of PFIZER VACCINE 00:00:00 [facility] [place] [facility] SARS-COV-2 COVID-19 2021-02-06 Completed Unive rsity of PFIZER VACCINE 00:00:00 [facility] [place] [facility] SARS-COV-2 COVID-19 2021-02-06 Completed Unive rsity of PFIZER VACCINE 00:00:00 [facility] [place] [facility] SARS-COV-2 COVID-19 2021-02-06 Completed Unive rsity of PFIZER VACCINE 00:00:00 [facility] SARS-COV-2 COVID-19 2021-02-06 Completed Unive rsity of PFIZER VACCINE 00:00:00 [facility] SARS-COV-2 COVID-19 2021-02-06 Completed Unive rsity of PFIZER VACCINE 00:00:00 [facility] SARS-COV-2 COVID-19 2021-02-06 Completed Unive rsity of PFIZER VACCINE 00:00:00 [facility] SARS-COV-2 COVID-19 2021-02-06 Completed Unive rsity of PFIZER VACCINE 00:00:00 [facility] SARS-COV-2 COVID-19 2021-02-06 Completed Unive rsity of PFIZER VACCINE 00:00:00 [facility] [place] [facility] SARS-COV-2 COVID-19 2021-02-06 Completed Unive rsity of PFIZER VACCINE 00:00:00 [facility] SARS-COV-2 COVID-19 2021-01-16 Completed Unive rsity of PFIZER VACCINE 00:00:00 [facility] SARS-COV-2 COVID-19 2021-01-16 Completed Unive rsity of PFIZER VACCINE 00:00:00 [facility] [place] [facility] SARS-COV-2 COVID-19 2021-01-16 Completed Unive rsity of PFIZER VACCINE 00:00:00 [facility] [place] [facility] SARS-COV-2 COVID-19 2021-01-16 Completed Unive rsity of PFIZER VACCINE 00:00:00 [facility] SARS-COV-2 COVID-19 2021-01-16 Completed Unive rsity of PFIZER VACCINE 00:00:00 [facility] SARS-COV-2 COVID-19 2021-01-16 Completed Unive rsity of PFIZER VACCINE 00:00:00 [facility] SARS-COV-2 COVID-19 2021-01-16 Completed [facility]ive rsity of PFIZER VACCINE 00:00:00 [facility] SARS-COV-2 COVID-19 2021-01-16 Completed [facility] of PFIZER VACCINE 00:00:00 [facility] SARS-COV-2 COVID-19 2021-01-16 Completed [facility]ive rsity of PFIZER VACCINE 00:00:00 [facility] SARS-COV-2 COVID-19 2021-01-16 Completed [facility]ive rsity of PFIZER VACCINE 00:00:00 [facility] SARS-COV-2 COVID-19 2021-01-16 Completed [facility]ive rsity of PFIZER VACCINE 00:00:00 [facility] SARS-COV-2 COVID-19 2021-01-16 Completed [facility]ive rsity of PFIZER VACCINE 00:00:00 [facility] SARS-COV-2 COVID-19 2021-01-16 Completed [facility]ive rs[facility] of PFIZER VACCINE 00:00:00 [facility] SARS-COV-2 COVID-19 2021-01-16 Completed [facility]ive rs[facility] of PFIZER VACCINE 00:00:00 [facility] SARS-COV-2 COVID-19 2021-01-16 Completed [facility]ive rsity of PFIZER VACCINE 00:00:00 [facility] SARS-COV-2 COVID-19 2021-01-16 Completed [facility]ive [facility] of PFIZER VACCINE 00:00:00 [facility] SARS-COV-2 COVID-19 2021-01-16 Completed [facility]ive [facility] of PFIZER VACCINE 00:00:00 [facility] SARS-COV-2 COVID-19 2021-01-16 Completed [facility]ive rs[facility] of PFIZER VACCINE 00:00:00 [facility] SARS-COV-2 COVID-19 2021-01-16 Completed [facility]ive [facility] of PFIZER VACCINE 00:00:00 [facility] SARS-COV-2 COVID-19 2021-01-16 Completed [facility]ive [facility] of PFIZER VACCINE 00:00:00 [facility] SARS-COV-2 COVID-19 2021-01-16 Completed [facility]ive rs[facility] of PFIZER VACCINE 00:00:00 [facility] SARS-COV-2 COVID-19 2021-01-16 Completed [facility]ive [facility] of PFIZER VACCINE 00:00:00 [facility] SARS-COV-2 COVID-19 2021-01-16 Completed [facility]ive rs[facility] of PFIZER VACCINE 00:00:00 [facility] SARS-COV-2 COVID-19 2021-01-16 Completed [facility]ive [facility] of PFIZER VACCINE 00:00:00 [facility] SARS-COV-2 COVID-19 2021-01-16 Completed [facility]ive [facility] of PFIZER VACCINE 00:00:00 [facility] SARS-COV-2 COVID-19 2021-01-16 Completed [facility]ive [facility] of PFIZER VACCINE 00:00:00 [facility] SARS-COV-2 COVID-19 2021-01-16 Completed [facility]ive rs[facility] of PFIZER VACCINE 00:00:00 [facility] SARS-COV-2 COVID-19 2021-01-16 Completed [facility]ive rs[facility] of PFIZER VACCINE 00:00:00 [facility] SARS-COV-2 COVID-19 2021-01-16 Completed [facility]ive [facility] of PFIZER VACCINE 00:00:00 [facility] SARS-COV-2 COVID-19 2021-01-16 Completed [facility]ive [facility] of PFIZER VACCINE 00:00:00 [facility] SARS-COV-2 COVID-19 2021-01-16 Completed [facility] of PFIZER VACCINE 00:00:00 [facility] SARS-COV-2 COVID-19 2021-01-16 Completed [facility]ive rs[facility] of PFIZER VACCINE 00:00:00 [facility] SARS-COV-2 COVID-19 2021-01-16 Completed [facility]ive rs[facility] of PFIZER VACCINE 00:00:00 [facility] SARS-COV-2 COVID-19 2021-01-16 Completed [facility]ive rsity of PFIZER VACCINE 00:00:00 [facility] SARS-COV-2 COVID-19 2021-01-16 Completed [facility]ive rsity of PFIZER VACCINE 00:00:00 [facility] SARS-COV-2 COVID-19 2021-01-16 Completed [facility]ive rsity of PFIZER VACCINE 00:00:00 [facility] SARS-COV-2 COVID-19 2021-01-16 Completed [facility]ive rsity of PFIZER VACCINE 00:00:00 [facility] SARS-COV-2 COVID-19 2021-01-16 Completed [facility]ive rsity of PFIZER VACCINE 00:00:00 [facility] SARS-COV-2 COVID-19 2021-01-16 Completed [facility]ive rsity of PFIZER VACCINE 00:00:00 [facility] SARS-COV-2 COVID-19 2021-01-16 Completed [facility]ive rsity of PFIZER VACCINE 00:00:00 [facility] Pneumococcal 2019-12-17 Completed University o f Polysaccharide, 00:00:00 [facility] ical PPSV23 (PNEUMOVAX) Branch Pneumococcal 2019-12-17 Completed University o f Polysaccharide, 00:00:00 [facility] ical PPSV23 (PNEUMOVAX) Branch Influenza Virus 2017-08-28 Completed Universit y of Vaccine Quad .5 mL IM 00:00:00 [facility] Influenza Virus 2017-08-28 Completed Universit y of Vaccine Quad .5 mL IM 00:00:00 [facility] HPV9 2017-03-31 Completed University of 00:00:00 [facility] Meningococcal 2017-03-31 Completed University of Polysaccharide 00:00:00 [facility] (groups A, C, Y and Branc h W-135) conjugate vaccine (MCV4P) HPV9 2017-03-31 Completed University of 00:00:00 [facility] Meningococcal 2017-03-31 Completed University of Polysaccharide 00:00:00 [facility] (groups A, C, Y and Branc h W-135) conjugate vaccine (MCV4P) Varicella 2016-06-15 Completed University of (varivax)(chicken 00:00:00 [facility] pox) [facility] Varicella 2016-06-15 Completed University of (varivax)(chicken 00:00:00 [facility] pox) [place] Flu Trivalent 2015-07-20 Completed University of 00:00:00 [facility] Flu Trivalent 2015-07-20 Completed University of 00:00:00 [facility] MMR 2015-05-05 Completed University of 00:00:00 [facility] MMR 2015-05-05 Completed University of 00:00:00 [facility] Proquad 2015-03-30 Completed University of (MMR/VARICELLA) 00:00:00 [facility] IPV 2015-03-30 Completed University of 00:00:00 [facility] Proquad 2015-03-30 Completed University of (MMR/VARICELLA) 00:00:00 [facility] IPV 2015-03-30 Completed University of 00:00:00 [facility] HIB 3 Dose Schedule 2015-02-27 Completed Unive rsity of 00:00:00 [facility] Pneumococcal 13 2015-02-27 Completed Universit y of Conjugate, PCV13 00:00:00 [facility] dical (Prevnar 13) [place] HIB 3 Dose Schedule 2015-02-27 Completed Unive rsity of 00:00:00 [facility] Pneumococcal 13 2015-02-27 Completed Universit y of Conjugate, PCV13 00:00:00 [facility] dical (Prevnar 13) [place] HEPATITIS A 2014-01-23 Completed University of 00:00:00 [facility] Heamophilus Influenza 2014-01-23 Completed Uni versity of B 00:00:00 [facility] HEPATITIS A 2014-01-23 Completed University of 00:00:00 [facility] Heamophilus Influenza 2014-01-23 Completed Uni versity of B 00:00:00 [facility] HEPATITIS A 2014-01-23 Completed University of 00:00:00 [facility] Heamophilus Influenza 2014-01-23 Completed Uni versity of B 00:00:00 [facility] HEPATITIS A 2014-01-23 Completed [facility]23 Com[facility] Uni versity of B 00:00:00 [facility] HEPATITIS A 2014-01-23 Completed University of 00:00:00 [facility] Heamophilus Influenza 2014-01-23 Completed Uni versity of B 00:00:00 [facility] HEPATITIS A 2014-01-23 Completed University of 00:00:00 [facility] Heamophilus Influenza 2014-01-23 Completed Uni versity of B 00:00:00 [facility] HEPATITIS A 2014-01-23 Completed University of 00:00:00 [facility] Heamophilus Influenza 2014-01-23 Completed Uni versity of B 00:00:00 [facility] HEPATITIS A 2014-01-23 Completed University of 00:00:00 [facility] Heamophilus Influenza 2014-01-23 Completed Uni versity of B 00:00:00 [facility] HEPATITIS A 2014-01-23 Completed University of 00:00:00 [facility] Heamophilus Influenza 2014-01-23 Completed Uni versity of B 00:00:00 [facility] HEPATITIS A 2014-01-23 Completed University of 00:00:00 [facility] Heamophilus Influenza 2014-01-23 Completed Uni versity of B 00:00:00 [facility] HEPATITIS A 2014-01-23 Completed University of 00:00:00 [facility] Heamophilus Influenza 2014-01-23 Completed Uni versity of B 00:00:00 [facility] HEPATITIS A 2014-01-23 Completed University of 00:00:00 [facility] Heamophilus Influenza 2014-01-23 Completed Uni versity of B 00:00:00 [facility] HEPATITIS A 2014-01-23 Completed University of 00:00:00 [facility] Heamophilus Influenza 2014-01-23 Completed Uni versity of B 00:00:00 [facility] HEPATITIS A 2014-01-23 Completed University of 00:00:00 [facility] Heamophilus Influenza 2014-01-23 Completed Uni versity of B 00:00:00 [facility] HEPATITIS A 2014-01-23 Completed University of 00:00:00 [facility] Heamophilus Influenza 2014-01-23 Completed Uni versity of B 00:00:00 [facility] HEPATITIS A 2014-01-23 Completed University of 00:00:00 [facility] Heamophilus Influenza 2014-01-23 Completed Uni versity of B 00:00:00 [facility] HEPATITIS A 2014-01-23 Completed University of 00:00:00 [facility] Heamophilus Influenza 2014-01-23 Completed Uni versity of B 00:00:00 [facility] HEPATITIS A 2014-01-23 Completed University of 00:00:00 [facility] Heamophilus Influenza 2014-01-23 Completed Uni versity of B 00:00:00 [facility] HEPATITIS A 2014-01-23 Completed University of 00:00:00 [facility] Heamophilus Influenza 2014-01-23 Completed Uni versity of B 00:00:00 [facility] HEPATITIS A 2014-01-23 Completed University of 00:00:00 [facility] Heamophilus Influenza 2014-01-23 Completed Uni versity of B 00:00:00 [facility] HEPATITIS A 2014-01-23 Completed University of 00:00:00 [facility] Heamophilus Influenza 2014-01-23 Completed Uni versity of B 00:00:00 [facility] HEPATITIS A 2014-01-23 Completed University of 00:00:00 [facility] Heamophilus Influenza 2014-01-23 Completed Uni versity of B 00:00:00 [facility] HEPATITIS A 2014-01-23 Completed University of 00:00:00 [facility] Heamophilus Influenza 2014-01-23 Completed Uni versity of B 00:00:00 [facility] HEPATITIS A 2014-01-23 Completed University of 00:00:00 [facility] Heamophilus Influenza 2014-01-23 Completed Uni versity of B 00:00:00 [facility] HEPATITIS A 2014-01-23 Completed University of 00:00:00 [facility] Heamophilus Influenza 2014-01-23 Completed Uni versity of B 00:00:00 [facility] HEPATITIS A 2014-01-23 Completed University of 00:00:00 [facility] Heamophilus Influenza 2014-01-23 Completed Uni versity of B 00:00:00 [facility] HEPATITIS A 2014-01-23 Completed University of 00:00:00 [facility] Heamophilus Influenza 2014-01-23 Completed Uni versity of B 00:00:00 [facility] HEPATITIS A 2014-01-23 Completed University of 00:00:00 [facility] Heamophilus Influenza 2014-01-23 Completed Uni versity of B 00:00:00 [facility] HEPATITIS A 2014-01-23 Completed University of 00:00:00 [facility] Heamophilus Influenza 2014-01-23 Completed Uni versity of B 00:00:00 [facility] HEPATITIS A 2014-01-23 Completed University of 00:00:00 [facility] Heamophilus Influenza 2014-01-23 Completed Uni versity of B 00:00:00 [facility] HEPATITIS A 2014-01-23 Completed University of 00:00:00 [facility] Heamophilus Influenza 2014-01-23 Completed Uni versity of B 00:00:00 [facility] HEPATITIS A 2014-01-23 Completed University of 00:00:00 [facility] Heamophilus Influenza 2014-01-23 Completed Uni versity of B 00:00:00 [facility] HEPATITIS A 2014-01-23 Completed University of 00:00:00 [facility] Heamophilus Influenza 2014-01-23 Completed Uni versity of B 00:00:00 [facility] HEP B, Adult Dosage 2014-01-23 Completed Unive rsity of 00:00:00 [facility] Hep B, Adol or Pedi 2014-01-23 Completed Unive rsity of Dosage 00:00:00 [facility] IPV 2014-01-23 Completed University of 00:00:00 [facility] HEPATITIS A 2014-01-23 Completed University of 00:00:00 [facility] Influenza 2014-01-23 Completed Uni versity of B 00:00:00 [facility] HEP B, Adult Dosage 2014-01-23 Completed Unive rsity of 00:00:00 [facility] Hep B, Adol or Pedi 2014-01-23 Completed Unive rsity of Dosage 00:00:00 [facility] IPV 2014-01-23 Completed University of 00:00:00 [facility] DTAP 2013-04-12 Completed University of 00:00:00 [facility] Polio (IPV/OPV) 2013-04-12 Completed Universit y of 00:00:00 [facility] Pneumococcal 7 2013-04-12 Completed University of Conjugate, PCV7 00:00:00 [facility] ical (Prevnar7) Branch DTAP 2013-04-12 Completed University of 00:00:00 [facility] Polio (IPV/OPV) 2013-04-12 Completed Universit y of 00:00:00 [facility] Pneumococcal 7 2013-04-12 Completed University of Conjugate, PCV7 00:00:00 [place] [facility] (Prevnar7) [facility] DTAP 2013-04-12 Completed University of 00:00:00 [facility] Polio (IPV/OPV) 2013-04-12 Completed Universit y of 00:00:00 [facility] Pneumococcal 7 2013-04-12 Completed University of Conjugate, PCV7 00:00:00 [place] [facility] (Prevnar7) Branch DTAP 2013-04-12 Completed University of 00:00:00 [facility] Polio (IPV/OPV) 2013-04-12 Completed Universit y of 00:00:00 [facility] Pneumococcal 7 2013-04-12 Completed University of Conjugate, PCV7 00:00:00 [place] [facility] (Prevnar7) Branch [facility] 2013-04-12 Completed University of 00:00:00 [facility] Polio (IPV/OPV) 2013-04-12 Completed Universit y of 00:00:00 [facility] Pneumococcal 7 2013-04-12 Completed University of Conjugate, PCV7 00:00:00 [place] [facility] (Prevnar7) [facility] 2013-04-12 Completed University of 00:00:00 [facility] Polio (IPV/OPV) 2013-04-12 Completed Universit y of 00:00:00 [facility] Pneumococcal 7 2013-04-12 Completed University of Conjugate, PCV7 00:00:00 [place] [facility] (Prevnar7) Branch DT 2013-04-12 Completed University of 00:00:00 [facility] Polio (IPV/OPV) 2013-04-12 Completed Universit y of 00:00:00 [facility] Pneumococcal 7 2013-04-12 Completed University of Conjugate, PCV7 00:00:00 [place] [facility] (Prevnar7) Branch DT 2013-04-12 Completed University of 00:00:00 [facility] Polio (IPV/OPV) 2013-04-12 Completed Universit y of 00:00:00 [facility] Pneumococcal 7 2013-04-12 Completed University of Conjugate, PCV7 00:00:00 [place] [facility] (Prevnar7) Branch DT 2013-04-12 Completed University of 00:00:00 [facility] Polio (IPV/OPV) 2013-04-12 Completed Universit y of 00:00:00 [facility] Pneumococcal 7 2013-04-12 Completed University of Conjugate, PCV7 00:00:00 [place] [facility] (Prevnar7) Branch DTAP 2013-04-12 Completed University of 00:00:00 [facility] Polio (IPV/OPV) 2013-04-12 Completed Universit y of 00:00:00 [facility] Pneumococcal 7 2013-04-12 Completed University of Conjugate, PCV7 00:00:00 [place] [facility] (Prevnar7) Branch DTAP 2013-04-12 Completed University of 00:00:00 [facility] Polio (IPV/OPV) 2013-04-12 Completed Universit y of 00:00:00 [facility] Pneumococcal 7 2013-04-12 Completed University of Conjugate, PCV7 00:00:00 [place] [facility] (Prevnar7) Branch [facility] 2013-04-12 Completed University of 00:00:00 [facility] Polio (IPV/OPV) 2013-04-12 Completed Universit y of 00:00:00 [facility] Pneumococcal 7 2013-04-12 Completed University of Conjugate, PCV7 00:00:00 [place] [facility] (Prevnar7) Branch [facility] 2013-04-12 Completed University of 00:00:00 [facility] Polio (IPV/OPV) 2013-04-12 Completed Universit y of 00:00:00 [facility] Pneumococcal 7 2013-04-12 Completed University of Conjugate, PCV7 00:00:00 [place] [facility] (Prevnar7) Branch DTAP 2013-04-12 Completed University of 00:00:00 [facility] Polio (IPV/OPV) 2013-04-12 Completed Universit y of 00:00:00 [facility] Pneumococcal 7 2013-04-12 Completed University of Conjugate, PCV7 00:00:00 [place] [facility] (Prevnar7) Branch [facility] 2013-04-12 Completed University of 00:00:00 [facility] Polio (IPV/OPV) 2013-04-12 Completed Universit y of 00:00:00 [facility] Pneumococcal 7 2013-04-12 Completed University of Conjugate, PCV7 00:00:00 [place] [facility] (Prevnar7) Branch [facility] 2013-04-12 Completed University of 00:00:00 [facility] Polio (IPV/OPV) 2013-04-12 Completed Universit y of 00:00:00 [facility] Pneumococcal 7 2013-04-12 Completed University of Conjugate, PCV7 00:00:00 [place] [facility] (Prevnar7) Branch DT 2013-04-12 Completed University of 00:00:00 [facility] Polio (IPV/OPV) 2013-04-12 Completed Universit y of 00:00:00 [facility] Pneumococcal 7 2013-04-12 Completed University of Conjugate, PCV7 00:00:00 [place] [facility] (Prevnar7) Branch [facility] 2013-04-12 Completed University of 00:00:00 [facility] Polio (IPV/OPV) 2013-04-12 Completed Universit y of 00:00:00 [facility] Pneumococcal 7 2013-04-12 Completed University of Conjugate, PCV7 00:00:00 [place] [facility] (Prevnar7) Branch [facility] 2013-04-12 Completed University of 00:00:00 [facility] Polio (IPV/OPV) 2013-04-12 Completed Universit y of 00:00:00 [facility] Pneumococcal 7 2013-04-12 Completed University of Conjugate, PCV7 00:00:00 [place] [facility] (Prevnar7) Branch [facility] 2013-04-12 Completed University of 00:00:00 [facility] Polio (IPV/OPV) 2013-04-12 Completed Universit y of 00:00:00 [facility] Pneumococcal 7 2013-04-12 Completed University of Conjugate, PCV7 00:00:00 [place] [facility] (Prevnar7) Branch DT 2013-04-12 Completed University of 00:00:00 [facility] Polio (IPV/OPV) 2013-04-12 Completed Universit y of 00:00:00 [facility] Pneumococcal 7 2013-04-12 Completed University of Conjugate, PCV7 00:00:00 [place] [facility] (Prevnar7) Branch [facility] 2013-04-12 Completed University of 00:00:00 [facility] Polio (IPV/OPV) 2013-04-12 Completed Universit y of 00:00:00 [facility] Pneumococcal 7 2013-04-12 Completed University of Conjugate, PCV7 00:00:00 [place] [facility] (Prevnar7) Branch [facility] 2013-04-12 Completed University of 00:00:00 [facility] Polio (IPV/OPV) 2013-04-12 Completed Universit y of 00:00:00 [facility] Pneumococcal 7 2013-04-12 Completed University of Conjugate, PCV7 00:00:00 [place] [facility] (Prevnar7) Branch [facility] 2013-04-12 Completed University of 00:00:00 [facility] Polio (IPV/OPV) 2013-04-12 Completed Universit y of 00:00:00 [facility] Pneumococcal 7 2013-04-12 Completed University of Conjugate, PCV7 00:00:00 [place] [facility] (Prevnar7) Branch [facility] 2013-04-12 Completed University of 00:00:00 [facility] Polio (IPV/OPV) 2013-04-12 Completed Universit y of 00:00:00 [facility] Pneumococcal 7 2013-04-12 Completed University of Conjugate, PCV7 00:00:00 [place] [facility] (Prevnar7) Branch [facility] 2013-04-12 Completed University of 00:00:00 [facility] Polio (IPV/OPV) 2013-04-12 Completed Universit y of 00:00:00 [facility] Pneumococcal 7 2013-04-12 Completed University of Conjugate, PCV7 00:00:00 [place] [facility] (Prevnar7) Branch [facility] 2013-04-12 Completed University of 00:00:00 [facility] Polio (IPV/OPV) 2013-04-12 Completed Universit y of 00:00:00 [facility] Pneumococcal 7 2013-04-12 Completed University of Conjugate, PCV7 00:00:00 [place] [facility] (Prevnar7) Branch [facility] 2013-04-12 Completed University of 00:00:00 [facility] Polio (IPV/OPV) 2013-04-12 Completed Universit y of 00:00:00 [facility] Pneumococcal 7 2013-04-12 Completed University of Conjugate, PCV7 00:00:00 [place] [facility] (Prevnar7) Branch [facility] 2013-04-12 Completed University of 00:00:00 [facility] Polio (IPV/OPV) 2013-04-12 Completed Universit y of 00:00:00 [facility] Pneumococcal 7 2013-04-12 Completed University of Conjugate, PCV7 00:00:00 [place] [facility] (Prevnar7) [facility] [facility] 2013-04-12 Completed [facility] of 00:00:00 [facility] Polio (IPV/OPV) 2013-04-12 Completed Universit y of 00:00:00 [facility] Pneumococcal 7 2013-04-12 Completed University of Conjugate, PCV7 00:00:00 [place] [facility] (Prevnar7) Branch [facility] 2013-04-12 Completed University of 00:00:00 [facility] Polio (IPV/OPV) 2013-04-12 Completed Universit y of 00:00:00 [facility] Pneumococcal 7 2013-04-12 Completed University of Conjugate, PCV7 00:00:00 [place] [facility] (Prevnar7) [facility] 2013-04-12 Completed University of 00:00:00 [facility] Polio (IPV/OPV) 2013-04-12 Completed Universit y of 00:00:00 [facility] Pneumococcal 7 2013-04-12 Completed University of Conjugate, PCV7 00:00:00 [facility] ical (Prevnar7) Branch [facility] 2013-04-12 Completed University of 00:00:00 [facility] Polio (IPV/OPV) 2013-04-12 Completed Universit y of 00:00:00 [facility] Pneumococcal 7 2013-04-12 Completed University of Conjugate, PCV7 00:00:00 [facility] ical (Prevnar7) Branch [facility] 2013-04-12 Completed University of 00:00:00 [facility] Polio (IPV/OPV) 2013-04-12 Completed Universit y of 00:00:00 [facility] Pneumococcal 7 2013-04-12 Completed University of Conjugate, PCV7 00:00:00 [facility] ical (Prevnar7) Branch [facility] 2013-04-12 Completed University of 00:00:00 [facility] Polio (IPV/OPV) 2013-04-12 Completed Universit y of 00:00:00 [facility] Pneumococcal 7 2013-04-12 Completed University of Conjugate, PCV7 00:00:00 [place] [facility] (Prevnar7) [facility] 2013-04-12 Completed University of 00:00:00 [facility] Polio (IPV/OPV) 2013-04-12 Completed Universit y of 00:00:00 [facility] Pneumococcal 7 2013-04-12 Completed University of Conjugate, PCV7 00:00:00 [place] [facility] (Prevnar7) Branch DTAP 2013-04-12 Completed [facility] of 00:00:00 [facility] Polio (IPV/OPV) 2013-04-12 Completed [facility]it y of 00:00:00 [facility] Pneumococcal 7 2013-04-12 Completed University of Conjugate, PCV7 00:00:00 [facility] ical (Prevnar7) Branch DTAP 2013-04-12 Completed University of 00:00:00 [facility] Polio (IPV/OPV) 2013-04-12 Completed Universit y of 00:00:00 [facility] Pneumococcal 7 2013-04-12 Completed University of Conjugate, PCV7 00:00:00 [facility] ical (Prevnar7) Branch DTAP 2013-04-12 Completed University of 00:00:00 [facility] Polio (IPV/OPV) 2013-04-12 Completed Universit y of 00:00:00 [facility] Pneumococcal 7 2013-04-12 Completed University of Conjugate, PCV7 00:00:00 [facility] ical (Prevnar7) Branch DTaP, Unspecified 2013-04-12 Completed Univers ity of Formulation 00:00:00 [facility] Pneumococcal 13 2013-04-12 Completed Universit y of Conjugate, PCV13 00:00:00 [place] [facility] (Prevnar 13) Branch IPV 2013-04-12 Completed University of 00:00:00 [facility] DTAP 2013-04-12 Completed University of 00:00:00 [facility] Polio (IPV/OPV) 2013-04-12 Completed Universit y of 00:00:00 [facility] Pneumococcal 7 2013-04-12 Completed University of Conjugate, PCV7 00:00:00 [facility] ical (Prevnar7) Branch DTaP, Unspecified 2013-04-12 Completed Univers ity of Formulation 00:00:00 [facility] Pneumococcal 13 2013-04-12 Completed Universit y of Conjugate, PCV13 00:00:00 [facility] dical (Prevnar 13) Branch IPV 2013-04-12 Completed University of 00:00:00 [facility] HEPATITIS A 2013-03-15 Completed University of 00:00:00 [facility] Hep B, Adol or Pedi 2013-03-15 Completed Unive rsity of Dosage 00:00:00 [facility] Meningococcal 2013-03-15 Completed University of Polysaccharide 00:00:00 [place] [facility] (groups A, C, Y and Branc h W-135) conjugate vaccine (MCV4P) HEPATITIS A 2013-03-15 Completed University of 00:00:00 [facility] Hep B, Adol or Pedi 2013-03-15 Completed Unive rsity of Dosage 00:00:00 [facility] Meningococcal 2013-03-15 Completed University of Polysaccharide 00:00:00 [place] [facility] (groups A, C, Y and Branc h W-135) conjugate vaccine (MCV4P) HEPATITIS A 2013-03-15 Completed University of 00:00:00 [facility] Hep B, Adol or Pedi 2013-03-15 Completed Unive rsity of Dosage 00:00:00 [facility] Meningococcal 2013-03-15 Completed University of Polysaccharide 00:00:00 [place] [facility] (groups A, C, Y and Branc h W-135) conjugate vaccine (MCV4P) HEPATITIS A 2013-03-15 Completed University of 00:00:00 [facility] Hep B, Adol or Pedi 2013-03-15 Completed Unive rsity of Dosage 00:00:00 [facility] Meningococcal 2013-03-15 Completed University of Polysaccharide 00:00:00 [place] [facility] (groups A, C, Y and Branc h W-135) conjugate vaccine (MCV4P) HEPATITIS A 2013-03-15 Completed University of 00:00:00 [facility] Hep B, Adol or Pedi 2013-03-15 Completed Unive rsity of Dosage 00:00:00 [facility] Meningococcal 2013-03-15 Completed University of Polysaccharide 00:00:00 [place] [facility] (groups A, C, Y and Branc h W-135) conjugate vaccine (MCV4P) HEPATITIS A 2013-03-15 Completed University of 00:00:00 [facility] Hep B, Adol or Pedi 2013-03-15 Completed Unive rsity of Dosage 00:00:00 [facility] Meningococcal 2013-03-15 Completed University of Polysaccharide 00:00:00 [place] [facility] (groups A, C, Y and Branc h W-135) conjugate vaccine (MCV4P) HEPATITIS A 2013-03-15 Completed University of 00:00:00 [facility] Hep B, Adol or Pedi 2013-03-15 Completed Unive rsity of Dosage 00:00:00 [facility] Meningococcal 2013-03-15 Completed University of Polysaccharide 00:00:00 [place] [facility] (groups A, C, Y and Branc h W-135) conjugate vaccine (MCV4P) HEPATITIS A 2013-03-15 Completed University of 00:00:00 [facility] Hep B, Adol or Pedi 2013-03-15 Completed Unive rsity of Dosage 00:00:00 [facility] Meningococcal 2013-03-15 Completed University of Polysaccharide 00:00:00 [place] [facility] (groups A, C, Y and Branc h W-135) conjugate vaccine (MCV4P) HEPATITIS A 2013-03-15 Completed University of 00:00:00 [facility] Hep B, Adol or Pedi 2013-03-15 Completed Unive rsity of Dosage 00:00:00 [facility] Meningococcal 2013-03-15 Completed University of Polysaccharide 00:00:00 [place] [facility] (groups A, C, Y and Branc h W-135) conjugate vaccine (MCV4P) HEPATITIS A 2013-03-15 Completed University of 00:00:00 [facility] Hep B, Adol or Pedi 2013-03-15 Completed Unive rsity of Dosage 00:00:00 [facility] Meningococcal 2013-03-15 Completed University of Polysaccharide 00:00:00 [place] [facility] (groups A, C, Y and Branc h W-135) conjugate vaccine (MCV4P) HEPATITIS A 2013-03-15 Completed University of 00:00:00 [facility] Hep B, Adol or Pedi 2013-03-15 Completed Unive rsity of Dosage 00:00:00 [facility] Meningococcal 2013-03-15 Completed University of Polysaccharide 00:00:00 [place] [facility] (groups A, C, Y and Branc h W-135) conjugate vaccine (MCV4P) HEPATITIS A 2013-03-15 Completed University of 00:00:00 [facility] Hep B, Adol or Pedi 2013-03-15 Completed Unive rsity of Dosage 00:00:00 [facility] Meningococcal 2013-03-15 Completed University of Polysaccharide 00:00:00 [place] [facility] (groups A, C, Y and Branc h W-135) conjugate vaccine (MCV4P) HEPATITIS A 2013-03-15 Completed University of 00:00:00 [facility] Hep B, Adol or Pedi 2013-03-15 Completed Unive rsity of Dosage 00:00:00 [facility] Meningococcal 2013-03-15 Completed University of Polysaccharide 00:00:00 [place] [facility] (groups A, C, Y and Branc h W-135) conjugate vaccine (MCV4P) HEPATITIS A 2013-03-15 Completed University of 00:00:00 [facility] Hep B, Adol or Pedi 2013-03-15 Completed Unive rsity of Dosage 00:00:00 [facility] Meningococcal 2013-03-15 Completed University of Polysaccharide 00:00:00 [place] [facility] (groups A, C, Y and Branc h W-135) conjugate vaccine (MCV4P) HEPATITIS A 2013-03-15 Completed University of 00:00:00 [facility] Hep B, Adol or Pedi 2013-03-15 Completed Unive rsity of Dosage 00:00:00 [facility] Meningococcal 2013-03-15 Completed University of Polysaccharide 00:00:00 [place] [facility] (groups A, C, Y and Branc h W-135) conjugate vaccine (MCV4P) HEPATITIS A 2013-03-15 Completed University of 00:00:00 [facility] Hep B, Adol or Pedi 2013-03-15 Completed Unive rsity of Dosage 00:00:00 [facility] Meningococcal 2013-03-15 Completed University of Polysaccharide 00:00:00 [place] [facility] (groups A, C, Y and Branc h W-135) conjugate vaccine (MCV4P) HEPATITIS A 2013-03-15 Completed University of 00:00:00 [facility] Hep B, Adol or Pedi 2013-03-15 Completed Unive rsity of Dosage 00:00:00 [facility] Meningococcal 2013-03-15 Completed University of Polysaccharide 00:00:00 [place] [facility] (groups A, C, Y and Branc h W-135) conjugate vaccine (MCV4P) HEPATITIS A 2013-03-15 Completed University of 00:00:00 [facility] Hep B, Adol or Pedi 2013-03-15 Completed Unive rsity of Dosage 00:00:00 [facility] Meningococcal 2013-03-15 Completed University of Polysaccharide 00:00:00 [place] [facility] (groups A, C, Y and Branc h W-135) conjugate vaccine (MCV4P) HEPATITIS A 2013-03-15 Completed University of 00:00:00 [facility] Hep B, Adol or Pedi 2013-03-15 Completed Unive rsity of Dosage 00:00:00 [facility] Meningococcal 2013-03-15 Completed University of Polysaccharide 00:00:00 [place] [facility] (groups A, C, Y and Branc h W-135) conjugate vaccine (MCV4P) HEPATITIS A 2013-03-15 Completed University of 00:00:00 [facility] Hep B, Adol or Pedi 2013-03-15 Completed Unive rsity of Dosage 00:00:00 [facility] Meningococcal 2013-03-15 Completed University of Polysaccharide 00:00:00 [place] [facility] (groups A, C, Y and Branc h W-135) conjugate vaccine (MCV4P) HEPATITIS A 2013-03-15 Completed University of 00:00:00 [facility] Hep B, Adol or Pedi 2013-03-15 Completed Unive rsity of Dosage 00:00:00 [facility] Meningococcal 2013-03-15 Completed University of Polysaccharide 00:00:00 [place] [facility] (groups A, C, Y and Branc h W-135) conjugate vaccine (MCV4P) HEPATITIS A 2013-03-15 Completed University of 00:00:00 [facility] Hep B, Adol or Pedi 2013-03-15 Completed Unive rsity of Dosage 00:00:00 [facility] Meningococcal 2013-03-15 Completed University of Polysaccharide 00:00:00 [place] [facility] (groups A, C, Y and Branc h W-135) conjugate vaccine (MCV4P) HEPATITIS A 2013-03-15 Completed University of 00:00:00 [facility] Hep B, Adol or Pedi 2013-03-15 Completed Unive rsity of Dosage 00:00:00 [facility] Meningococcal 2013-03-15 Completed University of Polysaccharide 00:00:00 [place] [facility] (groups A, C, Y and Branc h W-135) conjugate vaccine (MCV4P) HEPATITIS A 2013-03-15 Completed University of 00:00:00 [facility] Hep B, Adol or Pedi 2013-03-15 Completed Unive rsity of Dosage 00:00:00 [facility] Meningococcal 2013-03-15 Completed University of Polysaccharide 00:00:00 [place] [facility] (groups A, C, Y and Branc h W-135) conjugate vaccine (MCV4P) HEPATITIS A 2013-03-15 Completed University of 00:00:00 [facility] Hep B, Adol or Pedi 2013-03-15 Completed Unive rsity of Dosage 00:00:00 [facility] Meningococcal 2013-03-15 Completed University of Polysaccharide 00:00:00 [place] [facility] (groups A, C, Y and Branc h W-135) conjugate vaccine (MCV4P) HEPATITIS A 2013-03-15 Completed University of 00:00:00 [facility] Hep B, Adol or Pedi 2013-03-15 Completed Unive rsity of Dosage 00:00:00 [facility] Meningococcal 2013-03-15 Completed University of Polysaccharide 00:00:00 [place] [facility] (groups A, C, Y and Branc h W-135) conjugate vaccine (MCV4P) HEPATITIS A 2013-03-15 Completed University of 00:00:00 [facility] Hep B, Adol or Pedi 2013-03-15 Completed Unive rsity of Dosage 00:00:00 [facility] Meningococcal 2013-03-15 Completed University of Polysaccharide 00:00:00 [place] [facility] (groups A, C, Y and Branc h W-135) conjugate vaccine (MCV4P) HEPATITIS A 2013-03-15 Completed University of 00:00:00 [facility] Hep B, Adol or Pedi 2013-03-15 Completed Unive rsity of Dosage 00:00:00 [facility] Meningococcal 2013-03-15 Completed University of Polysaccharide 00:00:00 [place] [facility] (groups A, C, Y and Branc h W-135) conjugate vaccine (MCV4P) HEPATITIS A 2013-03-15 Completed University of 00:00:00 [facility] Hep B, Adol or Pedi 2013-03-15 Completed Unive rsity of Dosage 00:00:00 [facility] Meningococcal 2013-03-15 Completed University of Polysaccharide 00:00:00 [place] [facility] (groups A, C, Y and Branc h W-135) conjugate vaccine (MCV4P) HEPATITIS A 2013-03-15 Completed University of 00:00:00 [facility] Hep B, Adol or Pedi 2013-03-15 Completed Unive rsity of Dosage 00:00:00 [facility] Meningococcal 2013-03-15 Completed University of Polysaccharide 00:00:00 [place] [facility] (groups A, C, Y and Branc h W-135) conjugate vaccine (MCV4P) HEPATITIS A 2013-03-15 Completed University of 00:00:00 [facility] Hep B, Adol or Pedi 2013-03-15 Completed Unive rsity of Dosage 00:00:00 [facility] Meningococcal 2013-03-15 Completed University of Polysaccharide 00:00:00 [place] [facility] (groups A, C, Y and Branc h W-135) conjugate vaccine (MCV4P) HEPATITIS A 2013-03-15 Completed University of 00:00:00 [facility] Hep B, Adol or Pedi 2013-03-15 Completed Unive rsity of Dosage 00:00:00 [facility] Meningococcal 2013-03-15 Completed University of Polysaccharide 00:00:00 [place] [facility] (groups A, C, Y and Branc h W-135) conjugate vaccine (MCV4P) HEPATITIS A 2013-03-15 Completed University of 00:00:00 [facility] Hep B, Adol or Pedi 2013-03-15 Completed Unive rsity of Dosage 00:00:00 [facility] Meningococcal 2013-03-15 Completed University of Polysaccharide 00:00:00 [place] [facility] (groups A, C, Y and Branc h W-135) conjugate vaccine (MCV4P) HEPATITIS A 2013-03-15 Completed University of 00:00:00 [facility] Hep B, Adol or Pedi 2013-03-15 Completed Unive rsity of Dosage 00:00:00 [facility] Meningococcal 2013-03-15 Completed University of Polysaccharide 00:00:00 [place] [facility] (groups A, C, Y and Branc h W-135) conjugate vaccine (MCV4P) HEPATITIS A 2013-03-15 Completed University of 00:00:00 [facility] Hep B, Adol or Pedi 2013-03-15 Completed Unive rsity of Dosage 00:00:00 [facility] Meningococcal 2013-03-15 Completed University of Polysaccharide 00:00:00 [place] [facility] (groups A, C, Y and Branc h W-135) conjugate vaccine (MCV4P) HEPATITIS A 2013-03-15 Completed University of 00:00:00 [facility] Hep B, Adol or Pedi 2013-03-15 Completed Unive rsity of Dosage 00:00:00 [facility] Meningococcal 2013-03-15 Completed University of Polysaccharide 00:00:00 [place] [facility] (groups A, C, Y and Branc h W-135) conjugate vaccine (MCV4P) HEPATITIS A 2013-03-15 Completed University of 00:00:00 [facility] Hep B, Adol or Pedi 2013-03-15 Completed Unive rsity of Dosage 00:00:00 [facility] Meningococcal 2013-03-15 Completed University of Polysaccharide 00:00:00 [place] [facility] (groups A, C, Y and Branc h W-135) conjugate vaccine (MCV4P) HEPATITIS A 2013-03-15 Completed University of 00:00:00 [facility] Hep B, Adol or Pedi 2013-03-15 Completed Unive rsity of Dosage 00:00:00 [facility] Meningococcal 2013-03-15 Completed University of Polysaccharide 00:00:00 [place] [facility] (groups A, C, Y and Branc h W-135) conjugate vaccine (MCV4P) HEPATITIS A 2013-03-15 Completed University of 00:00:00 [facility] Hep B, Adol or Pedi 2013-03-15 Completed Unive rsity of Dosage 00:00:00 [facility] Meningococcal 2013-03-15 Completed University of Polysaccharide 00:00:00 [facility] florencio (groups A, C, Y and Branc h W-135) conjugate vaccine (MCV4P) HEPA,NOS 2013-03-15 Completed University of 00:00:00 [facility] HEPATITIS A 2013-03-15 Completed University of 00:00:00 [facility] Hep B, Adol or Pedi 2013-03-15 Completed Unive rsity of Dosage 00:00:00 [facility] Meningococcal 2013-03-15 Completed University of Polysaccharide 00:00:00 [facility] florencio (groups A, C, Y and Branc h W-135) conjugate vaccine (MCV4P) HEPA,NOS 2013-03-15 Completed University of 00:00:00 [facility] Pneumococcal 13 2013-01-24 Completed Universit y of Conjugate, PCV13 00:00:00 [facility] [place] (Prevnar 13) [place] HIB 4 Dose Schedule 2013-01-24 Completed Unive rsity of 00:00:00 [facility] Hep B, Dtap, Polio 2013-01-24 Completed Univer sity of 00:00:00 [facility] Pneumococcal 13 2013-01-24 Completed Universit y of Conjugate, PCV13 00:00:00 [place] [facility] (Prevnar 13) Branch HIB 4 Dose Schedule 2013-01-24 Completed Unive rsity of 00:00:00 [facility] Hep B, Dtap, Polio 2013-01-24 Completed Univer sity of 00:00:00 [facility] Pneumococcal 13 2013-01-24 Completed Universit y of Conjugate, PCV13 00:00:00 [facility] dical (Prevnar 13) Branch HIB 4 Dose Schedule 2013-01-24 Completed Unive rsity of 00:00:00 [facility] Hep B, Dtap, Polio 2013-01-24 Completed Univer sity of 00:00:00 [facility] Pneumococcal 13 2013-01-24 Completed Universit y of Conjugate, PCV13 00:00:00 [facility] dical (Prevnar 13) Branch HIB 4 Dose Schedule 2013-01-24 Completed Unive rsity of 00:00:00 [facility] Hep B, Dtap, Polio 2013-01-24 Completed Univer sity of 00:00:00 [facility] Pneumococcal 13 2013-01-24 Completed Universit y of Conjugate, PCV13 00:00:00 [facility] dical (Prevnar 13) Branch HIB 4 Dose Schedule 2013-01-24 Completed Unive rsity of 00:00:00 [facility] Hep B, Dtap, Polio 2013-01-24 Completed Univer sity of 00:00:00 [facility] Pneumococcal 13 2013-01-24 Completed Universit y of Conjugate, PCV13 00:00:00 [facility] dical (Prevnar 13) Branch HIB 4 Dose Schedule 2013-01-24 Completed Unive rsity of 00:00:00 [facility] Hep B, Dtap, Polio 2013-01-24 Completed Univer sity of 00:00:00 [facility] Pneumococcal 13 2013-01-24 Completed Universit y of Conjugate, PCV13 00:00:00 [facility] dical (Prevnar 13) Branch HIB 4 Dose Schedule 2013-01-24 Completed Unive rsity of 00:00:00 [facility] Hep B, Dtap, Polio 2013-01-24 Completed Univer sity of 00:00:00 [facility] Pneumococcal 13 2013-01-24 Completed Universit y of Conjugate, PCV13 00:00:00 [place] [facility] (Prevnar 13) Branch HIB 4 Dose Schedule 2013-01-24 Completed Unive rsity of 00:00:00 [facility] Hep B, Dtap, Polio 2013-01-24 Completed Univer sity of 00:00:00 [facility] Pneumococcal 13 2013-01-24 Completed Universit y of Conjugate, PCV13 00:00:00 [facility] dical (Prevnar 13) Branch HIB 4 Dose Schedule 2013-01-24 Completed Unive rsity of 00:00:00 [facility] Hep B, Dtap, Polio 2013-01-24 Completed Univer sity of 00:00:00 [facility] Pneumococcal 13 2013-01-24 Completed Universit y of Conjugate, PCV13 00:00:00 [facility] dical (Prevnar 13) Branch HIB 4 Dose Schedule 2013-01-24 Completed Unive rsity of 00:00:00 [facility] Hep B, Dtap, Polio 2013-01-24 Completed Univer sity of 00:00:00 [facility] Pneumococcal 13 2013-01-24 Completed Universit y of Conjugate, PCV13 00:00:00 [facility] dical (Prevnar 13) Branch HIB 4 Dose Schedule 2013-01-24 Completed Unive rsity of 00:00:00 [facility] Hep B, Dtap, Polio 2013-01-24 Completed Univer sity of 00:00:00 [facility] Pneumococcal 13 2013-01-24 Completed Universit y of Conjugate, PCV13 00:00:00 [facility] dical (Prevnar 13) Branch HIB 4 Dose Schedule 2013-01-24 Completed Unive rsity of 00:00:00 [facility] Hep B, Dtap, Polio 2013-01-24 Completed Univer sity of 00:00:00 [facility] Pneumococcal 13 2013-01-24 Completed Universit y of Conjugate, PCV13 00:00:00 [facility] dical (Prevnar 13) Branch HIB 4 Dose Schedule 2013-01-24 Completed Unive rsity of 00:00:00 [facility] Hep B, Dtap, Polio 2013-01-24 Completed Univer sity of 00:00:00 [facility] Pneumococcal 13 2013-01-24 Completed Universit y of Conjugate, PCV13 00:00:00 [place] [facility] (Prevnar 13) Branch HIB 4 Dose Schedule 2013-01-24 Completed Unive rsity of 00:00:00 [facility] Hep B, Dtap, Polio 2013-01-24 Completed Univer sity of 00:00:00 [facility] Pneumococcal 13 2013-01-24 Completed Universit y of Conjugate, PCV13 00:00:00 [place] [facility] (Prevnar 13) Branch HIB 4 Dose Schedule 2013-01-24 Completed Unive rsity of 00:00:00 [facility] Hep B, Dtap, Polio 2013-01-24 Completed Univer sity of 00:00:00 [facility] Pneumococcal 13 2013-01-24 Completed Universit y of Conjugate, PCV13 00:00:00 [place] [facility] (Prevnar 13) Branch HIB 4 Dose Schedule 2013-01-24 Completed Unive rsity of 00:00:00 [facility] Hep B, Dtap, Polio 2013-01-24 Completed Univer sity of 00:00:00 [facility] Pneumococcal 13 2013-01-24 Completed Universit y of Conjugate, PCV13 00:00:00 [place] [facility] (Prevnar 13) Branch HIB 4 Dose Schedule 2013-01-24 Completed Unive rsity of 00:00:00 [facility] Hep B, Dtap, Polio 2013-01-24 Completed Univer sity of 00:00:00 [facility] Pneumococcal 13 2013-01-24 Completed Universit y of Conjugate, PCV13 00:00:00 [place] [facility] (Prevnar 13) Branch HIB 4 Dose Schedule 2013-01-24 Completed Unive rsity of 00:00:00 [facility] Hep B, Dtap, Polio 2013-01-24 Completed Univer sity of 00:00:00 [facility] Pneumococcal 13 2013-01-24 Completed Universit y of Conjugate, PCV13 00:00:00 [place] [facility] (Prevnar 13) Branch HIB 4 Dose Schedule 2013-01-24 Completed Unive rsity of 00:00:00 [facility] Hep B, Dtap, Polio 2013-01-24 Completed Univer sity of 00:00:00 [facility] Pneumococcal 13 2013-01-24 Completed Universit y of Conjugate, PCV13 00:00:00 [place] [facility] (Prevnar 13) Branch HIB 4 Dose Schedule 2013-01-24 Completed Unive rsity of 00:00:00 [facility] Hep B, Dtap, Polio 2013-01-24 Completed Univer sity of 00:00:00 [facility] Pneumococcal 13 2013-01-24 Completed Universit y of Conjugate, PCV13 00:00:00 [place] [facility] (Prevnar 13) Branch HIB 4 Dose Schedule 2013-01-24 Completed Unive rsity of 00:00:00 [facility] Hep B, Dtap, Polio 2013-01-24 Completed Univer sity of 00:00:00 [facility] Pneumococcal 13 2013-01-24 Completed Universit y of Conjugate, PCV13 00:00:00 [place] [facility] (Prevnar 13) Branch HIB 4 Dose Schedule 2013-01-24 Completed Unive rsity of 00:00:00 [facility] Hep B, Dtap, Polio 2013-01-24 Completed Univer sity of 00:00:00 [facility] Pneumococcal 13 2013-01-24 Completed Universit y of Conjugate, PCV13 00:00:00 [facility] dical (Prevnar 13) Branch HIB 4 Dose Schedule 2013-01-24 Completed Unive rsity of 00:00:00 [facility] Hep B, Dtap, Polio 2013-01-24 Completed Univer sity of 00:00:00 [facility] Pneumococcal 13 2013-01-24 Completed Universit y of Conjugate, PCV13 00:00:00 [place] [facility] (Prevnar 13) Branch HIB 4 Dose Schedule 2013-01-24 Completed Unive rsity of 00:00:00 [facility] Hep B, Dtap, Polio 2013-01-24 Completed Univer sity of 00:00:00 [facility] Pneumococcal 13 2013-01-24 Completed Universit y of Conjugate, PCV13 00:00:00 [place] [facility] (Prevnar 13) Branch HIB 4 Dose Schedule 2013-01-24 Completed Unive rsity of 00:00:00 [facility] Hep B, Dtap, Polio 2013-01-24 Completed Univer sity of 00:00:00 [facility] Pneumococcal 13 2013-01-24 Completed Universit y of Conjugate, PCV13 00:00:00 [facility] dical (Prevnar 13) Branch HIB 4 Dose Schedule 2013-01-24 Completed Unive rsity of 00:00:00 [facility] Hep B, Dtap, Polio 2013-01-24 Completed Univer sity of 00:00:00 [facility] Pneumococcal 13 2013-01-24 Completed Universit y of Conjugate, PCV13 00:00:00 [place] [facility] (Prevnar 13) Branch HIB 4 Dose Schedule 2013-01-24 Completed Unive rsity of 00:00:00 [facility] Hep B, Dtap, Polio 2013-01-24 Completed Univer sity of 00:00:00 [facility] Pneumococcal 13 2013-01-24 Completed Universit y of Conjugate, PCV13 00:00:00 [place] [facility] (Prevnar 13) Branch HIB 4 Dose Schedule 2013-01-24 Completed Unive rsity of 00:00:00 [facility] Hep B, Dtap, Polio 2013-01-24 Completed Univer sity of 00:00:00 [facility] Pneumococcal 13 2013-01-24 Completed Universit y of Conjugate, PCV13 00:00:00 [place] [facility] (Prevnar 13) Branch HIB 4 Dose Schedule 2013-01-24 Completed Unive rsity of 00:00:00 [facility] Hep B, Dtap, Polio 2013-01-24 Completed Univer sity of 00:00:00 [facility] Pneumococcal 13 2013-01-24 Completed Universit y of Conjugate, PCV13 00:00:00 [place] [facility] (Prevnar 13) Branch HIB 4 Dose Schedule 2013-01-24 Completed Unive rsity of 00:00:00 [facility] Hep B, Dtap, Polio 2013-01-24 Completed Univer sity of 00:00:00 [facility] Pneumococcal 13 2013-01-24 Completed Universit y of Conjugate, PCV13 00:00:00 [place] [facility] (Prevnar 13) Branch HIB 4 Dose Schedule 2013-01-24 Completed Unive rsity of 00:00:00 [facility] Hep B, Dtap, Polio 2013-01-24 Completed Univer sity of 00:00:00 [facility] Pneumococcal 13 2013-01-24 Completed Universit y of Conjugate, PCV13 00:00:00 [place] [facility] (Prevnar 13) Branch HIB 4 Dose Schedule 2013-01-24 Completed Unive rsity of 00:00:00 [facility] Hep B, Dtap, Polio 2013-01-24 Completed Univer sity of 00:00:00 [facility] Pneumococcal 13 2013-01-24 Completed Universit y of Conjugate, PCV13 00:00:00 [place] [facility] (Prevnar 13) Branch HIB 4 Dose Schedule 2013-01-24 Completed Unive rsity of 00:00:00 [facility] Hep B, Dtap, Polio 2013-01-24 Completed Univer sity of 00:00:00 [facility] Pneumococcal 13 2013-01-24 Completed Universit y of Conjugate, PCV13 00:00:00 [place] [facility] (Prevnar 13) Branch HIB 4 Dose Schedule 2013-01-24 Completed Unive rsity of 00:00:00 [facility] Hep B, Dtap, Polio 2013-01-24 Completed Univer sity of 00:00:00 [facility] Pneumococcal 13 2013-01-24 Completed Universit y of Conjugate, PCV13 00:00:00 [facility] dical (Prevnar 13) Branch HIB 4 Dose Schedule 2013-01-24 Completed Unive rsity of 00:00:00 [facility] Hep B, Dtap, Polio 2013-01-24 Completed Univer sity of 00:00:00 [facility] Pneumococcal 13 2013-01-24 Completed Universit y of Conjugate, PCV13 00:00:00 [facility] dical (Prevnar 13) Branch HIB 4 Dose Schedule 2013-01-24 Completed Unive rsity of 00:00:00 [facility] Hep B, Dtap, Polio 2013-01-24 Completed Univer sity of 00:00:00 [facility] Pneumococcal 13 2013-01-24 Completed Universit y of Conjugate, PCV13 00:00:00 [facility] dical (Prevnar 13) Branch HIB 4 Dose Schedule 2013-01-24 Completed Unive rsity of 00:00:00 [facility] Hep B, Dtap, Polio 2013-01-24 Completed Univer sity of 00:00:00 [facility] Pneumococcal 13 2013-01-24 Completed Universit y of Conjugate, PCV13 00:00:00 [place] [facility] (Prevnar 13) Branch HIB 4 Dose Schedule 2013-01-24 Completed Unive rsity of 00:00:00 [facility] Hep B, Dtap, Polio 2013-01-24 Completed Univer sity of 00:00:00 [facility] Pneumococcal 13 2013-01-24 Completed Universit y of Conjugate, PCV13 00:00:00 [place] [facility] (Prevnar 13) Branch HIB 4 Dose Schedule 2013-01-24 Completed Unive rsity of 00:00:00 [facility] Hep B, Dtap, Polio 2013-01-24 Completed Univer sity of 00:00:00 [facility] Hib-HbOC 2013-01-24 Completed University of 00:00:00 [facility] Pneumococcal 13 2013-01-24 Completed Universit y of Conjugate, PCV13 00:00:00 [facility] dical (Prevnar 13) Branch HIB 4 Dose Schedule 2013-01-24 Completed Unive rsity of 00:00:00 [facility] Hep B, Dtap, Polio 2013-01-24 Completed Univer sity of 00:00:00 [facility] Hib-HbOC 2013-01-24 Completed University of 00:00:00 [facility] Pneumococcal 13 2012-06-13 Completed Universit y of Conjugate, PCV13 00:00:00 [facility] dical (Prevnar 13) Branch Pneumococcal 13 2012-06-13 Completed Universit y of Conjugate, PCV13 00:00:00 [facility] dical (Prevnar 13) Branch DTAP 2012-05-09 Completed University of 00:00:00 [facility] DTaP, Unspecified 2012-05-09 Completed Univers ity of Formulation 00:00:00 [facility] DTAP 2012-05-09 Completed University of 00:00:00 [facility] DTaP, Unspecified 2012-05-09 Completed Univers ity of Formulation 00:00:00 [facility] Flu Whole Virus 2010-07-30 Completed Universit y of 00:00:00 [facility] Flu Whole Virus 2010-07-30 Completed Universit y of 00:00:00 [facility] Flu Trivalent 2009-08-21 Completed University of 00:00:00 [facility] Flu Trivalent 2009-08-21 Completed University of 00:00:00 [facility] DTaP, Unspecified 2006-06-22 Completed Univers ity of Formulation 00:00:00 [facility] HEPATITIS A 2006-06-22 Completed University of 00:00:00 [facility] DTaP, Unspecified 2006-06-22 Completed Univers ity of Formulation 00:00:00 [facility] HEPATITIS A 2006-06-22 Completed University of 00:00:00 [facility] HEPATITIS A 2005-06-21 Completed University of 00:00:00 [facility] Pneumococcal 7 2005-06-21 Completed University of Conjugate, PCV7 00:00:00 [facility] ical (Prevnar7) Branch HEPATITIS A 2005-06-21 Completed University of 00:00:00 [facility] Pneumococcal 7 2005-06-21 Completed University of Conjugate, PCV7 00:00:00 [facility] ica (Prevnar7) Branch HIB 4 Dose Schedule 2005-04-22 Completed Unive rsity of 00:00:00 [facility] MMR 2005-04-22 Completed University of 00:00:00 [facility] IPV 2005-04-22 Completed University of 00:00:00 [facility] HIB 4 Dose Schedule 2005-04-22 Completed Unive rsity of 00:00:00 [facility] MMR 2005-04-22 Completed University of 00:00:00 [facility] IPV 2005-04-22 Completed University of 00:00:00 [facility] DTaP, Unspecified 2005-02-14 Completed Univers ity of Formulation 00:00:00 [facility] HIB 4 Dose Schedule 2005-02-14 Completed Unive rsity of 00:00:00 [facility] MMR 2005-02-14 Completed University of 00:00:00 [facility] IPV 2005-02-14 Completed University of 00:00:00 [facility] Varicella 2005-02-14 Completed University of (varivax)(chicken 00:00:00 [place] [facility] pox) Branch DTaP, Unspecified 2005-02-14 Completed Univers ity of Formulation 00:00:00 [facility] HIB 4 Dose Schedule 2005-02-14 Completed Unive rsity of 00:00:00 [facility] MMR 2005-02-14 Completed University of 00:00:00 [facility] IPV 2005-02-14 Completed University of 00:00:00 [facility] Varicella 2005-02-14 Completed University of (varivax)(chicken 00:00:00 [place] [facility] pox) [facility] DTaP, Unspecified 2001-10-10 Completed Univers ity of Formulation 00:00:00 [facility] Hep B, Adol or Pedi 2001-10-10 Completed Unive rsity of Dosage 00:00:00 [facility] HIB 4 Dose Schedule 2001-10-10 Completed Unive rsity of 00:00:00 [facility] IPV 2001-10-10 Completed University of 00:00:00 [facility] DTaP, Unspecified 2001-10-10 Completed Univers ity of Formulation 00:00:00 [facility] Hep B, Adol or Pedi 2001-10-10 Completed Unive rsity of Dosage 00:00:00 [facility] HIB 4 Dose Schedule 2001-10-10 Completed Unive rsity of 00:00:00 [facility] IPV 2001-10-10 Completed University of 00:00:00 [facility] DTaP, Unspecified 2001-03-01 Completed Univers ity of Formulation 00:00:00 [facility] HIB 4 Dose Schedule 2001-03-01 Completed Unive rsity of 00:00:00 [facility] IPV 2001-03-01 Completed University of 00:00:00 [facility] DTaP, Unspecified 2001-03-01 Completed Univers ity of Formulation 00:00:00 [facility] HIB 4 Dose Schedule 2001-03-01 Completed Unive rsity of 00:00:00 [facility] IPV 2001-03-01 Completed University of 00:00:00 [facility] Hep B, Adol or Pedi 2001-01-31 Completed Unive rsity of Dosage 00:00:00 [facility] Hep B, Adol or Pedi 2001-01-31 Completed Unive rsity of Dosage 00:00:00 [facility] Hep B, Adol or Pedi 2000 Completed Unive rsity of Dosage 00:00:00 [facility] Hep B, Adol or Pedi 2000 Completed Unive rsity of Dosage 00:00:00 [facility] Vital Signs Vital Name Observation Time Observation Value Comments Source Systolic blood 2023-05-26 14:58:00 129 mm[Hg] Univer sity of pressure [facility] Diastolic blood 2023-05-26 14:58:00 86 mm[Hg] Unive rsity of pressure [facility] Heart rate 2023-05-26 14:58:00 94 /min [facility] ty [facility] Body height 2023-05-26 14:58:[address] [facility] ty [facility] Body weight 2023-05-26 14:58:00 69.4 kg Universi ty of [place] [facility] BMI 2023-05-26 14:58:00 25.46 kg/m2 [facility] Oxygen saturation in 2023-05-26 14:58:00 98 /min University of Arterial blood by [facility] Pulse oximetry Branch Systolic blood 2023-04-21 21:27:00 144 mm[Hg] Univer sity of pressure [facility] Diastolic blood 2023-04-21 21:27:00 96 mm[Hg] Unive rsity of pressure [facility] Heart rate 2023-04-21 21:27:00 103 /min [facility] Body height 2023-04-21 21:27:00 165.1 cm [facility] Body weight 2023-04-21 21:27:00 70.398 kg [facility] BMI 2023-04-21 21:27:00 25.83 kg/m2 [facility] [place] [facility] Systolic blood 2023-04-13 19:32:00 115 mm[Hg] Univer sity of pressure [facility] Diastolic blood 2023-04-13 19:32:00 74 mm[Hg] Unive rsity of pressure [facility] Heart rate 2023-04-13 19:32:00 79 /min [facility] Body height 2023-04-13 19:32:00 165.1 cm [facility] Body weight 2023-04-13 19:32:00 70.308 kg [facility] BMI 2023-04-13 19:32:00 25.79 kg/m2 [facility] Oxygen saturation in 2023-04-13 19:32:00 98 /min University of Arterial blood by [facility] Pulse oximetry Branch Systolic blood 2023-03-31 19:23:00 110 mm[Hg] Univer sity of pressure [facility] Diastolic blood 2023-03-31 19:23:00 75 mm[Hg] Unive rsity of pressure [facility] Heart rate 2023-03-31 19:23:00 99 /min [facility]i [facility] Body height 2023-03-31 19:23:00 165.1 cm [facility] Body weight 2023-03-31 19:23:00 70.398 kg [facility] [place] [facility] BMI 2023-03-31 19:23:00 25.83 kg/m2 [facility] Oxygen saturation in 2023-03-31 19:23:00 97 /min University of Arterial blood by [facility] Pulse oximetry Branch Systolic blood 2023-03-24 14:42:00 129 mm[Hg] Univer sity of pressure [facility] Diastolic blood 2023-03-24 14:42:00 87 mm[Hg] Unive rsity of pressure [facility] Heart rate 2023-03-24 14:42:00 90 /min [facility]i [facility] Body temperature 2023-03-24 14:42:00 36.72 Ronda Univ ersity of [place] [facility] Respiratory rate 2023-03-24 14:42:00 18 /min Univ ersity of [facility] Body height 2023-03-24 14:42:00 165.1 cm [facility] Body weight 2023-03-24 14:42:00 68.629 kg [facility] BMI 2023-03-24 14:42:00 25.18 kg/m2 [facility] [place] [facility] Oxygen saturation in 2023-03-24 14:42:00 99 /min University of Arterial blood by [facility] Pulse oximetry Branch Systolic blood 2022-10-07 20:47:00 124 mm[Hg] Univer sity of pressure [facility] Diastolic blood 2022-10-07 20:47:00 86 mm[Hg] Unive rsity of pressure [facility] Heart rate 2022-10-07 20:47:00 101 /min [facility] [place] [facility] Body height 2022-10-07 20:47:00 165.1 cm [facility] Body weight 2022-10-07 20:47:00 69.264 kg [facility] BMI 2022-10-07 20:47:00 25.41 kg/m2 [facility] [place] [facility] Oxygen saturation in 2022-10-07 20:47:00 94 /min University of Arterial blood by [facility] Pulse oximetry Branch Systolic blood 2022-08-05 19:18:00 128 mm[Hg] Univer sity of pressure [facility] Diastolic blood 2022-08-05 19:18:00 81 mm[Hg] Unive rsity of pressure [facility] Heart rate 2022-08-05 19:18:00 110 /min [facility] [place] [facility] Respiratory rate 2022-08-05 19:18:00 23 /min Univ ersity of [facility] Body height 2022-08-05 19:18:00 165.1 cm [facility] Body weight 2022-08-05 19:18:00 70.308 kg [facility] BMI 2022-08-05 19:18:00 25.79 kg/m2 [facility] [place] [facility] Oxygen saturation in 2022-08-05 19:18:00 97 /min [facility] of Arterial blood by [place] [facility] Pulse oximetry Branch Systolic blood 2022-08-04 18:34:00 125 mm[Hg] Univer sity of pressure [facility] Diastolic blood 2022-08-04 18:34:00 84 mm[Hg] Unive rsity of pressure [facility] Heart rate 2022-08-04 18:34:00 96 /min [facility]i ty [facility] Body height 2022-08-04 18:34:00 165.1 cm [facility] Body weight 2022-08-04 18:34:00 70.625 kg [facility] BMI 2022-08-04 18:34:00 25.91 kg/m2 [facility] Oxygen saturation in 2022-08-04 18:34:00 97 /min University of Arterial blood by [place] [facility] Pulse oximetry Branch Systolic blood 2022-07-05 16:31:00 128 mm[Hg] Univer sity of pressure [facility] Diastolic blood 2022-07-05 16:31:00 86 mm[Hg] Unive rsity of pressure [facility] Heart rate 2022-07-05 16:31:00 93 /min [facility] Body height 2022-07-05 16:31:00 165.1 cm [facility] Body weight 2022-07-05 16:31:00 67.722 kg [facility] BMI 2022-07-05 16:31:00 24.84 kg/m2 [facility] Oxygen saturation in 2022-07-05 16:31:00 99 /min [facility] blood by [facility] Pulse oximetry Branch Procedures Procedure Date / Time Performing Clinician Source Performed TDAP VACCINE, >11 YRS, IM 2023-05-26 15:11:45 Emre Gan iversstalin [facility] POCT HEMOGLOBIN A1C TEST 2023-05-26 00:00[facility] 2023-03-31 05:01:00 Doctor Unassigned, [facility] FORMS Se[place] [facility] ASSIGNMENT OF BENEFITS 2022-10-07 20:44:49 Doctor Margoth [facility] Name [facility] INSURANCE CORRESPONDENCE 2022-08-16 06:01:00 Doctor Margoth, [facility] Seaman [facility] POCT HEMOGLOBIN A1C TEST 2022-08-04 20:25:00 Emre Gan [facility] Encounters Start End Encounter Admission Attending Care Care Encounter Source Date/Time Date/Time Type Type Clinicians Facility Department ID 2023-07-18 2023-07-18 [id number] Univers 11:30:00 11:30:00 JOSE gant [facility] 2023-05-26 2023-05-26 Outpatient R ELVIA [facility] [id number] Univers 09:30:00 10:29:53 EMRE gant [facility] 2023-05-26 2023-05-26 [facility] [id number] Univers 09:30:00 10:29:53 Visit Emre [employer] 350.1.13.10 it y of [place] 4.2.7.2.686 Scooter as PITO?BLEA [id number] De noel [address] MEDICAL OFFICE BUILDING 2023-04-27 2023-04-27 [facility] [id number] Univers 14:30:00 14:30:00 EMRE gant [facility] 2023-04-21 2023-04-21 [facility] [id number] Univers 16:30:00 17:06:39 RICHARD gant [facility] 2023-04-21 2023-04-21 Office [facility] [id number] Univers 16:30:00 17:06:39 Visit Richard Beltre HEALTH 350.1.13.10 it y of [place] 4.2.7.2.686 Scooter as PITO?BLEA [id number] [address] OFFICE [facility] 2023-04-21 2023-04-21 [facility] [id number] Univers 00:00:00 00:00:00 (Out) Richard Beltre HEALTH 350.1.13.10 it y of [place] 4.2.7.2.686 Scooter as PITO?BLEA [id number] [address] OFFICE [facility] 2023-04-13 2023-04-13 Outpatient R ELVIA [facility] [id number] Univers 14:30:00 15:12:55 EMRE gant [facility] 2023-04-13 2023-04-13 [facility] [id number] Univers 14:30:00 15:12:55 Visit Emre HEALTH 350.1.13.10 it y of [place] 4.2.7.2.686 Scooter as PITO?BLEA [id number] [address] OFFICE [facility] 2023-04-13 2023-04-13 [facility] [id number] Univers 00:00:00 00:00:00 (Out) Emre HEALTH 350.1.13.10 it y of [place] 4.2.7.2.686 Scooter as PITO?BLEA [id number] [address] OFFICE [facility] 2023-04-03 2023-04-03 Patient Doctor [facility] [id number] Univers 00:00:00 00:00:00 Secure Msg Unassigned, HEALTH 350.1.13.10 ity of [place] 4.2.7.2.686 Scooter as PITO?BLEA [id number] De noel SMITH [address] MEDICAL OFFICE [facility] 2023-03-31 2023-03-31 Broadcast Operations Director Lab, Ang - Db [facility] [id number] Univers 15:15:00 15:34:55 Visit Emre Gan 350.1.13.10 [facility] 4.2.7.2.686 Scooter as PITO?BLEA [id number] De noel SMITH [address] [facility] OFFICE [facility] 2023-03-31 2023-03-31 Outpatient R ELVIA [facility] [id number] Univers 14:00:00 15:08:45 EMRE gant [facility] 2023-03-31 2023-03-31 [facility] [id number] Univers 14:00:00 15:08:45 Visit Emre HEALTH 350.1.13.10 it y [facility] 4.2.7.2.686 Scooter as PITO?BLEA [id number] De noel [address] OFFICE [facility] 2023-03-31 2023-03-31 Letter Elvia [facility] [id number] Univers 00:00:00 00:00:00 (Out) Emre HEALTH 350.1.13.10 it y [facility] 4.2.7.2.686 Scooter as PITO?BLEA [id number] De dick[address] OFFICE [facility] 2023-03-31 2023-03-31 Orders Doctor JEFFERY [id number] [id number] Univers 00:00:00 00:00:00 Only Unassigned, GABO 350.1.13.10 ity of [place] [facility] 4.2.7.2.686 Scooter as [id number] [address] 2023-03-29 2023-03-29 Outpatient R ALBERT [facility] [id number] Univers 13:00:00 13:00:00 MELLY gant [facility] 2023-03-24 2023-03-24 Office [facility] [id number] Univers 09:30:00 10:00:00 Visit Melly Guaman HEALTH 350.1.13.10 i ty of [place] 4.2.7.2.686 Scooter as PITO?BLEA [id number] [address] OFFICE [facility] 2023-03-24 2023-03-24 Outpatient R ALBERT [facility] [id number] Univers 09:30:00 09:30:00 MELLYHOWARD gant [facility] 2023-03-24 2023-03-24 Letter [facility] 1.2.840.114 [id number] Univers 00:00:00 00:00:00 (Out) Melly Guaman HEALTH 350.1.13.10 i ty of [place] 4.2.7.2.686 Scooter as PITO?BLEA [id number] [address] 2023-03-24 2023-03-24 Letter [facility] 1.2.840.114 [id number] Univers 00:00:00 00:00:00 (Out) Melly Guaman HEALTH 350.1.13.10 i ty of [place] 4.2.7.2.686 Scooter as PITO?BLEA [phone] [address] 2023-03-21 2023-03-21 Khoi Gan [facility] 1.2.385.908 [id number] Univers 00:00:00 00:00:00 Emre HEALTH 350.1.13.10 it y of [place] 4.2.7.2.686 Scooter as PITO?BLEA [id number] [address] OFFICE [facility] 2023-03-17 2023-03-17 Outpatient R DAX [facility] [id number] Univers 15:30:00 15:30:00 RICHARD stalin [facility] 2023-02-26 2023-02-26 Moi [facility] 1.2.840.114 [id number] Univers 00:00:00 00:00:00 Emre HEALTH 350.1.13.10 it y of [place] 4.2.7.2.686 Scooter as PITO?BLEA [phone] [place] [address] [address] MEDICAL OFFICE [facility] 2023-02-21 2023-02-21 Telephone [facility] 1.2.840.114 [id number] Univers 00:00:00 00:00:00 Richard Beltre HEALTH 350.1.13.10 it y of [place] 4.2.7.2.686 Scooter as PITO?BLEA [phone] De noel SMITH [address] [place] [address] MEDICAL OFFICE BUILDING 2023-01-19 2023-01-19 Telephone [facility] 1.2.104.816 [id number] Univers 00:00:00 00:00:00 Emre HEALTH 350.1.13.10 it y of [place] 4.2.7.2.686 Scooter as PITO?BLEA [id number] De noel FORD[address] OFFICE [facility] 2023-01-09 2023-01-09 [facility] 1.2.840.114 [id number] Univers 00:00:00 00:00:00 Emre HEALTH 350.1.13.10 it y of [place] 4.2.7.2.686 Scooter as PITO?BLEA [id number] De noel FORD[address] OFFICE [facility] 2022-10-18 2022-10-18 [facility] 1.2.840.114 [id number] Univers 00:00:00 00:00:00 Emre HEALTH 350.1.13.10 it y of [place] 4.2.7.2.686 Scooter as PITO?BLEA [id number] De noel [address] OFFICE [facility] 2022-10-07 2022-10-07 Outpatient [facility] [id number] Univers 15:00:00 15:46:19 RICHARD gant of [facility] 2022-10-07 2022-10-07 Office [facility] 1.2.142.484 [id number] Univers 15:00:00 15:46:19 Visit Rihcard Beltre [employer] 350.1.13.10 it y of [place] 4.2.7.2.686 Scooter as PITO?BLEA [id number] De noel KNEY 220 [facility] 2022-10-07 2022-10-07 Orders Doctor JEFFERY 1.2.840.114 [id number] Univers 00:00:00 00:00:00 Only Unassigned, GABO 350.1.13.10 ity of [place] [facility] 4.2.7.2.686 Scooter as [phone] [address] 2022-09-15 2022-09-15 Telephone [facility] 1.2.512.960 [id number] Univers 00:00:00 00:00:00 Emre [facility] 350.1.13.10 it y of [place] 4.2.7.2.686 Scooter as PITO?BLEA [id number] De dicsg SMITH 044 [facility] 2022-08-25 2022-08-25 Outpatient R [facility] [id number] Univers 15:48:17 23:59:00 ROSEANNE gant o f [facility] 2022-08-16 2022-08-16 Orders Doctor JEFFERY 1.2.840.114 [id number] Univers 00:00:00 00:00:00 Only Unassigned, GABO 350.1.13.10 ity of [place] [facility] 4.2.7.2.686 Scooter as [id number] [address] 2022-08-05 2022-08-05 Outpatient R [facility] [id number] Univers 14:00:00 14:39:02 ROSEANNE gant o f [facility] 2022-08-05 2022-08-05 Office [facility] 1.2.840.114 [id number] Univers 14:00:00 14:39:02 Visit Noeadilene [place] 350.1.13.10 ity of [place] 4.2.7.2.[place] [id number] De noel GUTIERREZ 059 [facility] 2022-08-04 2022-08-04 Outpatient R ELVIA [facility] [id number] Univers 13:30:00 14:59:51 EMRE ity of [facility] 2022-08-04 2022-08-04 Office [facility] 1.2.840.114 [id number] Univers 13:30:00 14:59:51 Visit Emre HEALTH 350.1.13.10 it y of [place] 4.2.7.2.686 Scooter as PITO?BLEA [id number] [address] MEDICAL OFFICE [facility] 2022-07-19 2022-07-19 Refjose EstradaARTESIA [facility] 1.2.840.114 [id number] Univers 00:00:00 00:00:00 Luis Miguel HEALTH 350.1.13.10 it y of [place] 4.2.7.2.686 Scooter as PITO?BLEA [phone] [address] OFFICE [facility] 2022-07-05 2022-07-05 Outpatient R ELVIA [facility] [id number] [facility] [place] 11:30:00 11:46:02 EMRE ity [facility] 2022-07-05 2022-07-05 Office [facility] 1.2.840.114 [id number] [facility] [place] 11:30:00 11:46:02 Visit [facility] 350.1.13.10 it y of [place] 4.2.7.2.686 Scooter as PITO?BLEA [id number] [address] OFFICE [facility] 2022-07-05 2022-07-05 Telephone [facility] 1.2.408.960 [id number] Univers 00:00:00 00:00:00 Emre HEALTH 350.1.13.10 it y of [place] 4.2.7.2.686 Scooter as PITO?BLEA [id number] [address] OFFICE [facility] 2022-06-28 2022-06-28 Telephone [facility] 1.2.421.382 [id number] Univers 00:00:00 00:00:00 Emre HEALTH 350.1.13.10 it y of [place] 4.2.7.2.686 Scooter as PITO?BLEA [id number] [address] MEDICAL OFFICE [facility] 2022-06-22 2022-06-22 Telephone [facility] 1.2.401.776 [id number] Univers 00:00:00 00:00:00 Emre HEALTH 350.1.13.10 it y of [place] 4.2.7.2.686 Scooter as PITO?BLEA [phone] De noel SMITH [address] MEDICAL OFFICE BUILDING 2022-06-21 2022-06-21 Case Yazmin, [facility] 1.2.840.114 [id number] Univers 00:00:00 00:00:00 Management Bebeto HEALTH 350.1.13.10 ity of [place] 4.2.7.2.686 Scooter as PITO?BLEA [id number] De noel SMITH [address] MEDICAL OFFICE [facility] 2022-06-21 2022-06-21 Case Yazmin, [facility] 1.2.840.114 [id number] Univers 00:00:00 00:00:00 Management Bebeto HEALTH 350.1.13.10 ity of [place] 4.2.7.2.686 Scooter as PITO?BLEA [id number] De noel SMITH 370 [facility] OFFICE [facility] 2022-06-21 2022-06-21 Case Yazmin, [facility] 1.2.840.114 [id number] Univers 00:00:00 00:00:00 Management Bebeto HEALTH 350.1.13.10 ity of [place] 4.2.7.2.686 Scooter as PITO?BLEA [phone] De noel SMITH 370 [facility] OFFICE [facility] 2022-06-20 2022-06-20 Broadcast Operations Director Lab, Ang - Db [facility] 1.2.840.1 14 [id number] [facility] [place] 12:00:00 12:14:16 Visit Emre Gan 350.1.13.10 ity of [place] 4.2.7.2.686 Scooter as PITO?BLEA [phone] De noel SMITH [address] MEDICAL OFFICE BUILDING 2022-06-20 2022-06-20 Broadcast Operations Director Lab, Ang - Db [facility] 1.2.840.1 14 [id number] [facility] 12:00:00 12:14:16 Visit Emre Gan HEALTH 350.1.13.10 ity of [place] 4.2.7.2.686 Scooter as PITO?BLEA [phone] De noel SMITH 353 [facility] OFFICE [facility] 2022-06-20 2022-06-20 Broadcast Operations Director Lab, Ang - Db [facility] 1.2.840.1 14 [id number] Univers 12:00:00 12:14:16 Visit Emre Gan 350.1.13.10 ity of [place] 4.2.7.2.686 Scooter as PITO?BLEA [id number] De noel [address] OFFICE [facility] 2022-06-20 2022-06-20 Outpatient R FRANKLINCAROLA, [facility] [id number] Univers 11:30:00 11:47:22 EMRENAVEED gant [facility] 2022-06-20 2022-06-20 Office [facility] 1.2.840.114 [id number] Univers 11:30:00 11:47:22 Visit Emre CALHOUN 350.1.13.10 it y of [place] 4.2.7.2.686 Scooter as PITO?BLEA [id number] De noel [address] OFFICE [facility] 2022-06-20 2022-06-20 Outpatient R ELVIA, [facility] [id number] Univers 11:30:00 11:47:22 EMRE gant [facility] 2022-06-20 2022-06-20 Office [facility] 1.2.840.114 [id number] Univers 11:30:00 11:47:22 Visit Emre CALHOUN 350.1.13.10 it y of [place] 4.2.7.2.686 Scooter as PITO?BLEA [phone] [address] OFFICE [facility] 2022-06-20 2022-06-20 Outpatient R ELVIA, [facility] [id number] Univers 11:30:00 11:47:22 EMRE gant [facility] 2022-06-20 2022-06-20 Letter [facility] 1.2.840.114 [id number] Univers 00:00:00 00:00:00 (Out) Emre HEALTH 350.1.13.10 it y of [place] 4.2.7.2.686 Scooter as PITO?BLEA [phone] De noel FORD[address] MEDICAL OFFICE [facility] 2022-06-20 2022-06-20 Telephone [facility] 1.2.200.810 [id number] Univers 00:00:00 00:00:00 Emre HEALTH 350.1.13.10 it y of [place] 4.2.7.2.686 Scooter as PITO?BLEA [phone] [facility] [address] OFFICE [facility] 2022-06-20 2022-06-20 Telephone [facility] 1.2.348.462 [id number] Univers 00:00:00 00:00:00 Emre HEALTH 350.1.13.10 it y of [place] 4.2.7.2.686 Scooter as PITO?BLEA [phone] De noel [address] OFFICE [facility] 2022-05-28 2022-05-28 Urgent [facility] 1.2.840.114 [id number] Univers 12:00:00 12:00:00 Care Kateryna HEALTH 350.1.13.10 it y of [place] 4.2.7.2.686 Scooter as PITO?BLEA [id number] [address] OFFICE [facility] 2022-05-28 2022-05-28 Elva Ver[facility]coARTESIA [facility] 1.2.840.114 [id number] Univers 12:00:00 12:00:00 Care Kateryna HEALTH 350.1.13.10 it y of [place] 4.2.7.2.686 Scooter as PITO?BLEA [phone] [address] OFFICE [facility] 2022-05-28 2022-05-28 Outpatient R DAX [facility] [id number] Univers 12:00:00 11:55:15 KATERYNA nakul [facility] 2022-05-20 2022-05-20 Outpatient R YAZMIN [facility] [id number] Univers 20:40:00 20:40:00 BEBETO gant [facility] 2022-05-12 2022-05-12 Refill [facility] 1.2.840.114 [id number] Univers 00:00:00 00:00:00 Emre HEALTH 350.1.13.10 it y [facility] 4.2.7.2.686 Scooter as PITO?BLEA [id number] [facility] [address] MEDICAL OFFICE [facility] 2022-04-29 2022-04-29 Urgent JohanatxreARTESIA [facility] 1.2.840.114 [id number] Univers 12:00:00 12:20:00 Care Bebeto HEALTH 350.1.13.10 it y [facility] 4.2.7.2.686 Scooter as PITO?BLEA [id number] [address] MEDICAL OFFICE [facility] 2022-04-29 2022-04-29 Outpatient R [facility] [id number] Univers 12:00:00 12:00:00 BEBETO gant [facility] 2022-04-04 2022-04-04 Refjose GanARTESIA [facility] 1.2.840.114 [id number] Univers 00:00:00 00:00:00 [facility] 350.1.13.10 it y of [place] 4.2.7.2.686 Scooter as PITO?BLEA [phone] [address] OFFICE [facility] 2022-03-28 2022-03-28 Urgent Jama Lee [facility] 1.2.840. 114 [id number] Univers 16:20:00 16:40:00 Care Victor Hugo [facility] 350.1.13.10 ity [facility] 4.2.7.2.686 Scooter as PITO?BLEA [id number] [address] MEDICAL OFFICE [facility] 2022-03-28 2022-03-28 Outpatient R [facility] [id number] Univers 16:20:00 16:20:00 JAMA ferro [facility] 2022-03-21 2022-03-21 Orders Doctor GIL 1.2.840.114 [id number] Univers 00:00:00 00:00:00 Only Unassigned, GABO 350.1.13.10 ity of [place] [facility] 4.2.7.2.686 Scooter as [phone] [address] 2022-03-03 2022-03-03 Moi [facility]adaARTESIA [facility] 1.2.840.114 [id number] Univers 00:00:00 00:00:00 Luis Miguel HEALTH 350.1.13.10 it y of [facility] 4.2.7.2.686 Scooter as PITO?BLEA [id number] [facility] 044 [facility] OFFICE [facility] 2022-02-02 2022-02-02 Telephone Elvia [facility] 1.2.782.483 [id number] Univers 00:00:00 00:00:00 Emre HEALTH 350.1.13.10 it y of [place] 4.2.7.2.686 Scooter as PITO?BLEA [id number] [address] 2022-01-28 2022-01-28 Outpatient R ELVIA [facility] [id number] Univers 11:30:00 11:30:00 [facility] 2022-01-28 2022-01-28 Outpatient Pee GAN [facility] [id number] Univers 11:30:00 11:30:00 [facility] 2022-01-05 2022-01-05 Urgent Bebeto Arce [facility] 1.2.840.114 [id number] Univers 13:20:00 13:20:00 Jena Hurt [facility] 350.1.13.10 ity of [place] 4.2.7.2.686 Scooter as PITO?BLEA [id number] [address] 2022-01-05 2022-01-05 Outpatient R BLU [facility] [id number] Univers 13:20:00 10:49:31 [facility] 2022-01-05 2022-01-05 Letter [facility] 1.2.001.840 [id number] Univers 00:00:00 00:00:00 (Out) Ang Db HEALTH 350.1.13.10 it y of Urgent Care [place] 4.2.7.2.686 [place] PITO?BLEA [phone] [address] OFFICE [facility] 2022-01-05 2022-01-05 Telephone Yazmin [facility] 1.2.840.114 [id number] Univers 00:00:00 00:00:00 Rania HEALTH 350.1.13.10 it y of [place] 4.2.7.2.686 Scooter as PITO?BLEA [phone] [facility] [address] MEDICAL OFFICE [facility] 2022-01-04 2022-01-04 Orders Doctor JEFFERY 1.2.840.114 [id number] Univers 00:00:00 00:00:00 Only Unassigned, GABO 350.1.13.10 [facility] 4.2.7.2.686 Scooter as [phone] [address] 2021-12-31 2021-12-31 Telephone [facility] 1.2.633.774 [id number] Univers 00:00:00 00:00:00 Emre HEALTH 350.1.13.10 it y of [place] 4.2.7.2.686 Scooter as PITO?BLEA [phone] [facility] [address] MEDICAL OFFICE [facility] 2021-12-31 2021-12-31 Khoi [facility]ARTESIA [facility] 1.2.634.859 [id number] Univers 00:00:00 00:00:00 Emre HEALTH 350.1.13.10 it y [facility] 4.2.7.2.686 Scooter as PITO?BLEA [phone] [address] OFFICE [facility] 2021-12-30 2021-12-30 Outpatient Pee GAN [facility] [id number] Univers 11:00:00 11:00:00 EMRE jerrynakul [facility] 2021-12-30 2021-12-30 Outpatient Pee GAN [facility] [id number] Univers 11:00:00 11:00:00 EMRE jeryrnakul [facility] 2021-12-28 2021-12-28 Outpatient Pee GAN [facility] [id number] Univers 11:30:00 12:26:05 EMRE jerrynakul [facility] 2021 2021 Telephone [facility] 1.2.219.364 [id number] Univers 00:00:00 00:00:00 Emre HEALTH 350.1.13.10 it y of [place] 4.2.7.2.686 Scooter as PITO?BLEA [id number] [facility] [address] MEDICAL OFFICE [facility] 2021-11-04 2021-11-04 Outpatient R BELKIS [facility] [id number] Univers 11:30:00 11:30:00 CHRISTOPHER gant [facility] 2021-11-02 2021-11-02 Broadcast Operations Director Lab, Ang - [facility] 1.2.840.1 14 [id number] Univers 16:30:00 16:45:00 Visit Emre Gan HEALTH 350.1.13.10 ity of [place] 4.2.7.2.686 Scooter as PITO?BLEA [id number] [facility] [address] [facility] OFFICE [facility] 2021-11-02 2021-11-02 Outpatient [facility] [id number] Univers 15:00:00 16:27:02 EMRE gant [facility] 2021-11-02 2021-11-02 Office [facility] 1.2.840.114 [id number] Univers 15:00:00 16:27:02 Visit Emre HEALTH 350.1.13.10 it y of [place] 4.2.7.2.686 Scooter as PITO?BLEA [id number] [facility] 044 [facility] OFFICE [facility] 2021-10-19 2021-10-19 Telephone [place] 1.2.840.114 [id number] Univers 00:00:00 00:00:00 Demetri Hyde HEALTH 350.1.13.10 i ty of [facility] [place]2.7.2.[place] [id number] [address] 2021-10-18 2021-10-18 Outpatient R DEMETRI LAKE [facility] 10 [id number] Univers 13:45:00 15:41:27 DEMETRI [place] i ty [facility] 2021-10-18 2021-10-18 Office Joan Carlson [facility] 1.2.840.114 [id number] Univers 13:45:00 15:41:27 Visit Demetri [place] HEALTH 350.1.13.10 ity of [place] [id number] [address] 2021-10-18 2021-10-18 Office Joan Carlson [facility] 1.2.840.114 [id number] Univers 13:45:00 15:41:27 Visit Demetri [place] HEALTH 350.1.13.10 ity of [place] [id number] [address] 2021-10-18 2021-10-18 Outpatient R DEMETRI LAKE [facility] 10 [id number] Univers 13:45:00 15:41:27 DEMETRI [place] i ty [facility] 2021-10-13 2021-10-13 Telephone [facility] 1.2.273.032 [id number] [facility] [place] 00:00:00 00:00:00 Emre HEALTH 350.1.13.10 it y of [facility] 4.2.7.2.686 Scooter as PITO?BLEA [id number] [address] OFFICE [facility] 2021-10-05 2021-10-05 Office [facility] 1.2.840.114 [id number] Univers 10:30:00 11:13:32 Visit Emre HEALTH 350.1.13.10 it y of [facility] 4.2.7.2.686 Scooter as PITO?BLEA [phone] [address] MEDICAL OFFICE [facility] 2021-10-05 2021-10-05 Outpatient R ELVIA [facility] [id number] Univers 10:30:00 11:13:32 EMRE stalin [facility] 2021-10-05 2021-10-05 Outpatient R ELVIA [facility] [id number] Univers 10:30:00 10:30:00 EMRE stalin [facility] 2021-10-05 2021-10-05 Outpatient R ELVIA [facility] [id number] Univers 10:30:00 10:30:00 EMRENAVEED gant [facility] 2021-10-04 2021-10-04 Telephone [facility] 1.2.646.007 [id number] Univers 00:00:00 00:00:00 Emre HEALTH 350.1.13.10 it y of [place] 4.2.7.2.686 Scooter as PITO?BLEA [id number] [address] OFFICE [facility] 2021-09-27 2021-09-27 Broadcast Operations Director Lab, Ang - Db [facility] 1.2.840.1 14 [id number] Univers 10:30:00 10:45:00 Visit Emre Gan 350.1.13.10 ity of [place] 4.2.7.2.686 Scooter as PITO?BLEA [phone] [facility] [address] [facility] OFFICE [facility] 2021-09-27 2021-09-27 Outpatient [facility] [id number] Univers 10:30:00 10:30:00 EMRE gant [facility] 2021-09-27 2021-09-27 Telephone [facility] 1.2.871.737 [id number] Univers 00:00:00 00:00:00 Emre HEALTH 350.1.13.10 it y of [place] 4.2.7.2.686 Scooter as PITO?BLEA [id number] [address] OFFICE [facility] 2021-09-24 2021-09-24 Outpatient R ELVIA [facility] [id number] Univers 16:30:00 17:11:50 EMRE gant [facility] 2021-09-24 2021-09-24 Office [facility] .2.840.114 [id number] Univers 16:30:00 17:11:50 Visit Emre HEALTH 350.1.13.10 it y of [place] 4.2.7.2.686 Scooter as PITO?BLEA [id number] [address] OFFICE [facility] 2021-09-24 2021-09-24 Outpatient [facility] [id number] Univers 16:30:00 17:11:50 EMRE itnakul [facility] 2021-09-06 2021-09-06 Office AneFormerly [facility] 1.2.840.114 [id number] Univers 13:07:39 14:01:08 Visit Emre [facility] 350.1.13.10 it y of [place] 4.2.7.2.686 Scooter as PITO?BLEA [id number] [address] MEDICAL OFFICE BUILDING 2021-09-06 2021-09-06 [facility] [id number] [employer] 13:00:00 14:01:08 EMRE gant [facility] 2021-09-06 2021-09-06 Outpatient R [facility] [id number] [facility] 13:00:00 13:00:[facility] 2021-09-06 Orders Doctor JEFFERY [id number] Univers 00:00:00 00:00:00 Only Unassigned, GABO 350.1.13.10 ity of [place] [facility] 4.2.7.2.686 Scooter as [phone] [address] 2021-02-06 2021-02-06 [facility] [id number] Univers 13:10:00 13:10:00 SHERIF [facility] 2021-01-16 2021-01-16 Outpatient [facility] [id number] [employer] 13:10:00 13:10:00 [facility] Results Test Description Test Time Test Comments Results Result Comments Source POCT HEMOGLOBIN A1C TEST 2023-05-26 15:18:00 Test Item Value Reference Range Interpretation Comme nts POCT HBA1C (test code = 4548-4) 8.8 % 4-6 A Lab Interpretation (test code = 93575-6) Abnormal [facility] HEMOGLOBIN A1C [id number] 15:18:00 Test Item Value Reference Range Interpretation Comments POCT HBA1C (test code = 4548-4) 8.8 % 4-6 A Lab Interpretation (test code = Abnormal 05124-2) [facility] HEMOGLOBIN A1C [id number] 21:00:00 Test Item Value Reference Range Interpretation Comments POCT HBA1C (test code = 4548-4) 12.1 % 4-6 A Lab Interpretation (test code = Abnormal 23748-8[facility] [id number] 21:00:00 Test Item Value Reference Range Interpretation Comments POCT HBA1C (test code = 4548-4) 12.1 % 4-6 A Lab Interpretation (test code = Abnormal 38827-3) [facility]
[2023-06-13 13:07] LABS: Absolute Lymphocytes (CBC) 2.4 K/uL (0.7-4.9); Hematocrit 44.3 % (39.6-49.0); Lymphocytes % 30.8 % (15.3-44.8); MCV 88.7 fL (80-100); MPV 8.4 fL (7.6-11.3); Platelets 325 thou/uL (152-406); RBC Red Blood Cell Count 4.99 M/uL (4.33-5.43)
[2023-06-13 13:18] LABS: Potassium 3.1 mEq/L (3.5-5.1)
[2023-06-13] MEDS ORDERED: ONDANSETRON 4 MG/2 ML VIAL ONE (13:27)
[2023-06-13] MEDS ORDERED: FAMOTIDINE 20 MG/2 ML VIAL IV ONE (13:28)
[2023-06-13] MEDS ORDERED: NA CHLORIDE 0.9% 1,000 ML ONE (13:28)
[2023-06-13 13:30] LABS: SARS-CoV-2 Antigen Rapid Res Negative (Negative)
--- NOTE | 2023-06-13 13:43 | EDPHYS ---
Physician Documentation [facility] Name: Sergio Hilton Age: 22 yrs Sex: Male : 2000 Arrival Date: 06/13/2023 Time: 11:22 Bed 13 Private MD: ED Physician Severo Yo HPI: 06/13 12:01 This 22 yrs old Male presents to ER via Ambulatory with complaints of Vomiting.[email or web address] 12:01 The patient presents to the emergency department with nausea, vomiting, diarrhea. jh7 Onset: The symptoms/episode began/occurred 4 day(s) ago. Possible causes: sick contacts, by co-worker(s), increasing ozempic. Associated signs and symptoms: Pertinent positives: diarrhea, nausea, vomiting, Pertinent negatives: abdominal pain, fever. Historical: - Allergies: 12:01 Latex, Natural Rubber; hb - PMHx: 12:01 Bipolar disorder; Diabetes - NIDDM; Irritable bowel syndrome; Leukemia; hb - PSHx: 12:01 Appendectomy; hb - Immunization history:: Adult Immunizations up to date. - Social history:: Smoking status: Patient denies any tobacco usage or history of. ROS: 12:01 Constitutional: Negative for fever, chills, and weight loss, Eyes: Negative for injury, jh7 pain, redness, and discharge, Neck: Negative for injury, pain, and swelling, Cardiovascular: Negative for chest pain, palpitations, and edema, Respiratory: Negative for shortness of breath, cough, wheezing, and pleuritic chest pain, Back: Negative for injury and pain, MS/Extremity: Negative for injury and deformity, Skin: Negative for injury, rash, and discoloration, Neuro: Negative for headache, weakness, numbness, tingling, and seizure. 12:01 Abdomen/GI: Positive for nausea, vomiting, and diarrhea, abdominal cramps, Negative for abdominal pain. 12:01 All other systems are negative. Exam: 12:01 Constitutional: This is a well developed, well nourished patient who is awake, alert, jh7 and in no acute distress. Eyes: Pupils equal round and reactive to light, extra-ocular motions intact. Lids and lashes normal. Conjunctiva and sclera are non-icteric and not injected. Cornea within normal limits. Periorbital areas with no swelling, redness, or edema. ENT: Nares patent. No nasal discharge, no septal abnormalities noted. Tympanic membranes are normal and external auditory canals are clear. Oropharynx with no redness, swelling, or masses, exudates, or evidence of obstruction, uvula midline. Mucous membranes moist. Cardiovascular: Regular rate and rhythm with a normal S1 and S2. No gallops, murmurs, or rubs. Normal PMI, no JVD. No pulse deficits. Respiratory: Lungs have equal breath sounds bilaterally, clear to auscultation and percussion. No rales, rhonchi or wheezes noted. No increased work of breathing, no retractions or nasal flaring. Abdomen/GI: Soft, non-tender, with normal bowel sounds. No distension or tympany. No guarding or rebound. No evidence of tenderness throughout. Skin: Warm, dry with normal turgor. Normal color with no rashes, no lesions, and no evidence of cellulitis. MS/ Extremity: Pulses equal, no cyanosis. Neurovascular intact. Full, normal range of motion. Neuro: Awake and alert, GCS 15, oriented to person, place, time, and situation. Normal gait. Vital Signs: 11:59 BP 128 / 78; Pulse 104; Resp 16; Temp 98.4(TE); Pulse Ox 100% ; Weight 69.4 kg; Height hb 5 ft. 5 in. ; Pain 5/10; 13:00 BP 122 / 74; Pulse 90; Resp 14; Pulse Ox 99% ; ko1 14:37 BP 118 / 75; Pulse 91; Resp 16; Pulse Ox 100% ; ko1 11:59 Body Mass Index 25.46 (69.40 kg, 165.1 cm) hb 11:59 Pain Scale: Adult hb MDM: 11:41 Patient medically screened. [facility] 13:45 Differential diagnosis: gastritis, viral gastroenteritis, gastroenteritis. Differential [facility] diagnosis: IBS. Data reviewed: vital signs, nurses notes, lab test result(s). I considered the following discharge prescriptions or medication management in the emergency department Medications were administered in the Emergency Department. See MAR. Care significantly affected by the following chronic conditions: IBS. Counseling: I had a detailed discussion with the patient and/or guardian regarding the historical points, exam findings, and any diagnostic results supporting the discharge/admit diagnosis, to return to the emergency department if symptoms worsen or persist or if there are any questions or concerns that arise at home. Response to treatment: the patient's symptoms have markedly improved after treatment. 06/13 11:57 Order name: CBC with Diff; Complete Time: 13:29 [facility] 06/13 11:57 Order name: Lipase; Complete Time: 13:29 [facility] 06/13 11:57 Order name: BMP; Complete Time: 13:29 [facility] 06/13 11:57 Order name: SARS RAPID; Complete Time: 13:34 [facility] 06/13 11:57 Order name: Flu; Complete Time: 13:29 [facility] 06/13 11:57 Order name: IV Saline Lock; Complete Time: 12:56 [facility] 06/13 11:57 Order name: Labs collected and sent; Complete Time: 12:56 [facility] Administered Medications: 13:22 Drug: NS 0.9% IV 1000 ml Route: IV; Rate: 1 bolus; Site: left antecubital; ko1 13:22 Drug: Ondansetron IVP 4 mg Route: IVP; Site: left antecubital; ko1 13:23 Drug: Famotidine IVP 20 mg Route: IVP; Site: left antecubital; ko1 13:39 Drug: Potassium Chloride PO 40 mEq Route: PO; ko1 Disposition: 15:02 Co-signature as Attending Physician, Severo Yo MD I reviewed the patient's care rn provided by the Advanced Practice Provider and agree with the diagnosis and treatment plan. Disposition Summary: 06/13/23 13:43 Discharge Ordered Location: Home [facility] Problem: new [facility] Symptoms: have improved [facility] Condition: Stable [facility] Diagnosis - Noninfective gastroenteritis and colitis, unspecified [facility] Followup: [facility] - With: Private Physician - When: 2 - 3 days - Reason: Recheck today's complaints Discharge Instructions: - Discharge Summary Sheet [facility] - Food Choices to Help Relieve Diarrhea, Adult [facility] - Viral Gastroenteritis, Adult [facility] Forms: - Medication Reconciliation Form [facility] - Thank You Letter [facility] - Patient Portal Instructions [facility] - Leadership Thank You Letter [facility] - Work release form ko1 Prescriptions: - ondansetron 4 mg Oral Tablet,disintegrating - take 1 tablet by ORAL route every 4-6 hours As needed; 20 tablet; Refills: 0, [facility] Product Selection Permitted - Levsin 0.125 mg Oral Tablet - take 1 tablet by ORAL route every 8 hours; 30 tablet; Refills: 0, Product jh7 Selection Permitted Signatures: Dispatcher [employer] Severo Harper MD MD rn Baxter, Heather RN RN Ivett Madison, ANALYST BUSINESS ANALYSIS [facility] jh7 Ibeth Elkins RN RN ko1
--- NOTE | 2023-06-13 13:43 | ER ---
Nurse's Notes [facility] Name: Sergio Hilton Age: 22 yrs Sex: Male : 2000 Arrival Date: 06/13/2023 Time: 11:22 Bed 13 Private MD: Diagnosis: Noninfective gastroenteritis and colitis, unspecified Presentation: 06/13 11:59 Chief complaint: N/V and abdominal cramping x 4 days. Increased Ozempic dose 2 weeks hb ago. Home BGL 160. Coronavirus screen: At this time, the client does not indicate any symptoms associated with coronavirus-19. Ebola Screen: No symptoms or risks identified at this time. Initial Sepsis Screen: Does the patient meet any 2 criteria? No. Patient's initial sepsis screen is negative. Does the patient have a suspected source of infection? No. Patient's initial sepsis screen is negative. Risk Assessment: Do you want to hurt yourself or someone else? Patient reports no desire to harm self or others. Onset of symptoms was June 10, 2023. 11:59 Method Of Arrival: Ambulatory hb 11:59 Acuity: YURI 3 hb Triage Assessment: 13:00 GI: Reports nausea, vomiting, since monday. ko1 Historical: - Allergies: 12:01 Latex, Natural Rubber; hb - PMHx: 12:01 Bipolar disorder; Diabetes - NIDDM; Irritable bowel syndrome; Leukemia; hb - PSHx: 12:01 Appendectomy; hb - Immunization history:: Adult Immunizations up to date. - Social history:: Smoking status: Patient denies any tobacco usage or history of. Screenin:00 [facility] ED Fall Risk Assessment (Adult) History of falling in the last 3 months, ko1 including since admission No falls in past 3 months (0 pts) Confusion or Disorientation No (0 pts) Intoxicated or Sedated No (0 pts) Impaired Gait No (0 pts) Mobility Assist Device Used No (0 pt) Altered Elimination No (0 pt) Score/Fall Risk Level 0 - 2 = Low Risk Oriented to surroundings, Maintained a safe environment, Educated pt \T\ family on fall prevention, incl call for assistance when getting out of bed, Assessed \T\ reinforced patient's understanding of fall precautions, Provided non-skid footwear, Hourly rounding (assess needs \T\ fall precautionary measures) done, Used ambulatory aids as needed (educated on \T\ assisted with), Used gait belt as appropriate. Abuse screen: Denies threats or abuse. Denies injuries from another. Nutritional screening: No deficits noted. Tuberculosis screening: No symptoms or risk factors identified. Assessment: 13:00 General: Appears in no apparent distress. uncomfortable, Behavior is calm, cooperative, ko1 appropriate for age. Pain: Complains of pain in abdomen. Neuro: No deficits noted. Cardiovascular: No deficits noted. Respiratory: No deficits noted. GI: Abdomen is flat, non-distended. : No deficits noted. EENT: No deficits noted. Derm: No deficits noted. Musculoskeletal: No deficits noted. Vital Signs: 11:59 BP 128 / 78; Pulse 104; Resp 16; Temp 98.4(TE); Pulse Ox 100% ; Weight 69.4 kg; Height hb 5 ft. 5 in. ; Pain 5/10; 13:00 BP 122 / 74; Pulse 90; Resp 14; Pulse Ox 99% ; ko1 14:37 BP 118 / 75; Pulse 91; Resp 16; Pulse Ox 100% ; ko1 11:59 Body Mass Index 25.46 (69.40 kg, 165.1 cm) hb 11:59 Pain Scale: Adult hb ED Course: 11:28 Patient arrived in ED. rg4 11:41 Iv[facility] Bowden FNP [facility] jh7 11:41 Severo Yo MD is Attending Physician. jh7 12:01 Triage completed. hb 12:01 Arm band placed on. hb 12:56 Flu Sent. bc6 12:56 SARS RAPID Sent. bc6 12:56 BMP Sent. bc6 12:56 CBC with Diff Sent. bc6 12:56 Lipase Sent. bc6 12:56 Inserted saline lock: 22 gauge in left antecubital area, using aseptic technique. Blood bc6 collected. 13:00 Patient has correct armband on for positive identification. Bed in low position. Call ko1 light in reach. Side rails up X 1. Provided Education on: na. Pulse ox on. NIBP on. Door closed. Noise minimized. Warm blanket given. 13:00 No provider procedures requiring assistance completed. ko1 13:09 Ibeth Elkins, RN is Primary Nurse. ko1 13:10 Patient placed in an exam room, on a stretcher. ll1 14:37 IV discontinued, intact, bleeding controlled, No redness/swelling at site. Pressure ko1 dressing applied. Administered Medications: 13:22 Drug: NS 0.9% IV 1000 ml Route: IV; Rate: 1 bolus; Site: left antecubital; ko1 13:22 Drug: Ondansetron IVP 4 mg Route: IVP; Site: left antecubital; ko1 13:23 Drug: Famotidine IVP 20 mg Route: IVP; Site: left antecubital; ko1 13:39 Drug: Potassium Chloride PO 40 mEq Route: PO; ko1 Medication: 14:37 VIS not applicable for this client. ko1 Outcome: 13:43 Discharge ordered by . Patrick 14:37 Discharged to home ambulatory. ko1 14:37 Condition: improved 14:37 Discharge instructions given to patient, Instructed on discharge instructions, follow up and referral plans. medication usage, Demonstrated understanding of instructions, follow-up care, medications, Prescriptions given X 2. 14:38 Patient left the ED. ko1 Signatures: Mary Tran RN RN Ruth Mi rg4 Liya Mclaughlin RN RN ll1 Ivett Bowden, SPORTS AGENT SPORTS AGENT 7 Ibeth Elkins RN RN ko1 Uma Llanes bc6
[2023-06-13] MEDS ORDERED: POTASSIUM CL SA 10 MEQ TAB PO ONE (13:50)
[2023-06-13 15:30] VITALS: TEMP 98.4
[2023-06-13 15:32] VITALS: BP 118/75; O2SAT 100
== END 2023-06-13 14:38 | disposition home or self-care (01) ==
LOC: ER 11:22
DX: K52.9 Noninfective gastroenteritis and colitis, unspecified (principal); E11.9 Type 2 diabetes mellitus without complications; K58.9 Irritable bowel syndrome, unspecified; F31.9 Bipolar disorder, unspecified; Z91.040 Latex allergy status; Z85.6 Personal history of leukemia; Z20.822 Contact with and (suspected) exposure to COVID-19
CPT/HCPCS: 85025; 80048; 36415; 83690; 87804 ×2; 96375; 96374; 99284; 87811; J2405; J7030

== ENCOUNTER 2023-07-24 17:57 | Emergency (ER) | payer OTHER ==
--- OUTSIDE RECORDS SUMMARY | 2023-07-24 18:12 | XMS REPORT | Continuity of Care Document ---
:2000 Author Organization [facility] t Address [address] [place] [id number] Care Team Providers Name Role Phone Emre Nieves Primary Care Physician ANN CHIRINOS Attending Clinician Unavailable EMRE GAN Attending Clinician Unavailable Ann Fisher Attending Clinician Emre Nieves Attending Clinician Lab, Ang - Db Attending Clinician Unavailable RICHARD CRUZ Attending Clinician Unavailable Richard Cruz MD Attending Clinician Doctor Unassigned, [place] Attending Clinician Unavailable MELLY BARBER Attending Clinician [...] Clinician HEIDE HURT Attending Clinician Unavailable Provider, [facility] Attending Clinician Unavailable CHRISTOPHER TAMAYO Attending Clinician Unavailable Demetri Lake MD Attending Clinician DEMETRI LAKE Attending Clinician Unavailable DEMETRI LAKE Attending Clinician Unavailable Joan Carlson MD Attending Clinician SHERIF HERNANDEZ Attending Clinician Unavailable ROSEANNE LEVINE Admitting Clinician Unavailable Payers Payer Name Policy Type Policy Number Effective Date Expiration Date Lizett nathan [facility] [id number] 2022 PLUS 00:00:00 FORMERLY [facility] [id number] 2018 CHOICE MEDICAID 00:00:00 Problems Condition Condition Condition Status Onset Resolution Last Treating Co mments Source Name Details Category Date Date Treatment Clinician Date Dyslipidem Dyslipidem Disease Active 2020- U nivers ia ia 2-17 ity of 00:00: [place] 00 Medical Branch NAFLD NAFLD Disease Active 2020- Univers (nonalcoho (nonalcoho 2-17 it y of lic fatty lic fatty 00:00: [facility] s liver liver 00 Medical disease) disease) Branch Non Non Disease Active 2020- Univers compliance compliance 2-17 it y of with with 00:00: [place] medical medical 00 Medical treatment treatment Bran ch Type 2 Type 2 Disease Active 2019- Univers diabetes diabetes 2-17 ity of mellitus mellitus 00:00: [place] with with 00 Medical hyperglyce hyperglyce Br anch jared, jared, without without long-term long-term current current use of use of insulin insulin Exposure Exposure Disease Active Overview: Un promise to medical to medical 11-15 Formattin ity of therapeuti therapeuti 00:00: g of this [place] c c 00 note Medical radiation radiation might be Br anch different from the original. Formattin g of this note might be different from the original. 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 Formattin g of this note might be different from the original. 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 [place] status 00 Medical 04/22/2011 04/22/2011 Bran ch Leukemia, Leukemia, 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 Formattin g of this note might be different from the original. Taking focalin Essential Essential Disease Active Overview: Univers hypertensi hypertensi 1-21 Formattin ity of on on 00:00: g of this [place] 00 note Medical might be Branch different from the original. 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 Leukemia Leukemia Disease Active Unive rs ity of [facility] Allergies, Adverse Reactions, Alerts Allergy Allergy Status [...] Univers GASE INGREDI 2-25 ity of 00:00: [address] Social History Social Habit Start Date Stop Date Quantity Comments Source History of tobacco Passive smoker Un iversity of use [facility] Gender identity Universit y of [facility] Sexual orientation Univer sity of [facility] Alcohol intake 2023-07-18 2023-07-18 Current University of 00:00:00 00:00:00 non-drinker of [facility] alcohol [place] (finding) Exposure to 2023-03-14 2023-03-[address] [facility] SARS-CoV-2 (event) 00:00:00 09:25:00 [facility] History of Social 2023-03-24 2023-03-24 Univers ity of function 00:00:00 00:00:00 [facility] Tobacco use and 2022-06-20 2022-06-20 Smokeless Universit y of exposure 00:00:00 00:00:00 [facility] 2022-06-20 2022-06-20 Family smokes Univer sity of 00:00:00 00:00:00 outside [facility] Sex Assigned At 2000 2000 Universit y of 00:00:00 00:00:00 [facility] Smoking Status Start Date Stop Date Source Never smoked tobacco [facility] Medications Ordered Filled Start Stop Current Ordering Indication Dosage Frequency Signature Comments Components Source Medication Medication Date Date Medication? Clinician (SIG) Name Name blood sugar 2022-10 Yes [id number] Use as Univers diagnostic 0-12 directed ity o f (ONETOUCH 00:00: to test [place] ULTRA TEST) 00 blood Medical strip sugars Branch twice daily E11.65 Blood-Gluco 2022-10 Yes Use as Univ ers se Meter 0-12 directed ity of (ONETOUCH 00:00[place] 00 blood Medical METER) Misc sugars Branch twice daily E11.65 Lancets 2022-10 Yes Use as Univers (ONETOUCH 0-12 directed ity of ULTRASOFT 00:00[place] LANCETS[place] 00 blood Medical Misc sugars Branch twice daily E11.65 trazodone 2022-10- No Take by [facility] ers HCl 0-10 10-10 mouth. ity of (TRAZODONE 11:40: 00:00 [place] ORAL) 51 :00 Medical Branch citalopram 2022-10- No 10mg Take 10 mg Univers 10 mg 0-10 10-10 by mouth ity of tablet 11:40: 00:00 daily. [place] 51 :00 Medical Branch trazodone 2022-10- No Take by [facility] ers HCl 0-10 10-10 mouth. ity of (TRAZODONE 11:40: 00:00 [place] ORAL) 51 :00 Medical Branch citalopram 2022-10- No 10mg Take 10 mg Univers 10 mg 0-10 10-10 by mouth ity of tablet 11:40: 00:00 daily. [place] 51 :00 [facility] Branch trazodone 2022-10- No Take by [facility] ers HCl 0-10 10-10 mouth. ity of (TRAZODONE 11:40: 00:00 [place] ORAL) 51 :00 Medical Branch citalopram 2022-10 No 10mg Take 10 mg Univers 10 mg 0-10 10-10 by mouth ity of tablet 11:40: 00:00 daily. [place] 51 :00 Medical Branch tirzepatide 2022-10 Yes [id number] 5mg inject 5 Univers (MOUNJARO) 0-10 mg under ity o f 5 mg/0.5 mL 00:00: the skin [place] PnIj 00 weekly. Medical Branch Blood-Gluco 2022-10 Yes [id number] 1{each} inject 1 Univers se Sensor 0-10 Each under ity of (FREESTYLE 00:00: the skin Scooter as BURAK 3 00 every 14 Medical SENSOR) (fourteen) Branch . Use as directed to check blood sugar 4X for uncontroll ed type 2 diabetes. Diagnosis E11.65 tirzepatide 2022-10 Yes [id number] 5mg inject 5 Univers (MOUNJARO) 0-10 mg under ity o f 5 mg/0.5 mL 00:00: the skin [place] PnIj 00 weekly. Medical Branch Blood-Gluco 2022-10 Yes [id number] 1{each} inject 1 Univers se Sensor 0-10 Each under ity of (FREESTYLE 00:00: the skin [place] BURAK 3 00 every 14 Medical SENSOR) (fourteen) Branch . Use as directed to check blood sugar 4X for uncontroll ed type 2 diabetes. Diagnosis E11.65 tirzepatide 2022- Yes [id number] 5mg inject 5 Univers (MOUNJARO) 0-10 mg under ity o f 5 mg/0.5 mL 00:00: the skin [place] PnIj 00 weekly. Medical Branch Blood-Gluco 2022-10 Yes [id number] 1{each} inject 1 Univers se Sensor 0-10 Each under ity of (FREESTYLE 00:00: the skin [place] BURAK 3 00 every 14 Medical SENSOR) (fourteen) Branch . Use as directed to check blood sugar 4X for uncontroll ed type 2 diabetes. Diagnosis E11.65 tirzepatide 2022-10 Yes [id number] 5mg inject 5 Univers (MOUNJARO) 0-10 mg under ity o f 5 mg/0.5 mL 00:00: the skin [place] PnIj 00 weekly. Medical Branch Blood-Gluco 2022-10 Yes [id number] 1{each} inject 1 Univers se Sensor 0-10 Each under ity of (FREESTYLE 00:00: the skin [place] BURAK 3 00 every 14 Medical SENSOR) (fourteen) Branch . Use as directed to check blood sugar 4X for uncontroll ed type 2 diabetes. Diagnosis E11.65 tirzepatide 2022- Yes [id number] 5mg inject 5 Univers (MOUNJARO) 0-10 mg under ity o f 5 mg/0.5 mL 00:00: the skin [place] PnIj 00 weekly. Medical Branch Blood-Gluco 2022-10- No [id number] 1{each} inject 1 Univers se Sensor 0-10 10-12 Each under ity of (FREESTYLE 00:00: 00:00 [place] BURAK 3 00 :00 every 14 Medical SENSOR) (fourteen) Branch . Use as directed to check blood sugar 4X for uncontroll ed type 2 diabetes. Diagnosis E11.65 citalopram 2022-10 Yes Univers 20 mg 0-06 ity of tablet 00:00: [place] Medical Branch traZODone 2022-10 Yes Univers 50 mg 0-06 ity of tablet 00:00: Medical Branch citalopram 2022-10 Yes Univers 20 mg 0-06 ity of tablet 00:00: [place] Medical [facility] traZODone 2022-10 Yes Univers 50 mg 0-06 ity of tablet 00:00: [place] Medical [facility] citalopram 2022-10 Yes Univers 20 mg 0-06 ity of tablet 00:00: [place] Medical [facility] traZODone 2022-10 Yes Univers 50 mg 0-06 ity of tablet 00:00: [place] Medical Branch citalopram 2022-10 Yes Univers 20 mg 0-06 ity of tablet 00:00: [place] Medical [facility] traZODone 2022-10 Yes Univers 50 mg 0-06 ity of tablet 00:00: [place] Medical [facility] citalopram 2022-10 Yes Univers 20 mg 0-06 ity of tablet 00:00: [place] Medical [facility] traZODone 2022-10 Yes Univers 50 mg 0-06 ity of tablet 00:00: [place] Medical Branch proMETHazin 2022-10 Yes [id number] 25mg Take 1 Univers e 25 mg 0-02 tablet by ity of tablet 00:00: mouth [place] 00 every 6 Medical (six) Branch hours as needed for Nausea and Vomiting (N/V). Insulin 2022-10 Yes [id number] 20U inject 20 Univers Glargine 0-02 Units ity of (LANTUS 00:00: under the [place] [address] skin in [facility] the Branch INSULIN) morning 100 unit/mL and 20 (3 mL) Units in injection the evening. proMETHazin 2022-10 Yes [id number] 25mg Take 1 Univers e 25 mg 0-02 tablet by ity of tablet 00:00: mouth [place] every 6 Medical (six) Branch hours as needed for Nausea and Vomiting (N/V). Insulin 2022-10 Yes [id number] 20U inject 20 Univers Glargine 0-02 Units ity of (LANTUS 00:00: under the [facility] 00 skin in [facility] U-100 the Branch INSULIN) morning 100 unit/mL and 20 (3 mL) Units in injection the evening. proMETHazin 2022-10 Yes [id number] 25mg Take 1 Univers e 25 mg 0-02 tablet by ity of tablet 00:00: mouth [place] 00 every 6 Medical (six) Branch hours as needed for Nausea and Vomiting (N/V). Insulin 2022-10 Yes [id number] 20U inject 20 Univers Glargine 0-02 Units ity of (LANTUS 00:00: under the [place] SOLOSTAR 00 skin in Medical U-100 the Branch INSULIN) morning 100 unit/mL and 20 (3 mL) Units in injection the evening. proMETHazin 2022-10 Yes [id number] 25mg Take 1 Univers e 25 mg 0-02 tablet by ity of tablet 00:00: mouth [place] 00 every 6 Medical (six) Branch hours as needed for Nausea and Vomiting (N/V). Insulin 2022-10 Yes [id number] 20U inject 20 Univers Glargine 0-02 Units ity of (LANTUS 00:00: under the [place] SOLOSTAR 00 skin in Medical U-100 the Branch INSULIN) morning 100 unit/mL and 20 (3 mL) Units in injection the evening. proMETHazin 2022-10 Yes [id number] 25mg Take 1 Univers e 25 mg 0-02 tablet by ity of tablet 00:00: mouth [place] 00 every 6 Medical (six) Branch hours as needed for Nausea and Vomiting (N/V). Insulin 2022-10 Yes [id number] 20U inject 20 Univers Glargine 0-02 Units ity of (LANTUS 00:00: under the [place] SOLOSTAR 00 skin in Medical U-100 the Branch INSULIN) morning 100 unit/mL and 20 (3 mL) Units in injection the evening. proMETHazin 2022-10 Yes [id number] 25mg Take 1 Univers e 25 mg 0-02 tablet by ity of tablet 00:00: mouth [place] 00 every 6 Medical (six) Branch hours as needed for Nausea and Vomiting (N/V). Insulin 2022-10 Yes [id number] 20U inject 20 Univers Glargine 0-02 Units ity of (LANTUS 00:00: under the [place] SOLOSTAR 00 skin in Medical U-100 the Branch INSULIN) morning 100 unit/mL and 20 (3 mL) Units in injection the evening. proMETHazin 2022-10 Yes [id number] 25mg Take 1 Univers e 25 mg 0-02 tablet by ity of tablet 00:00: mouth [place] 00 every 6 Medical (six) Branch hours as needed for Nausea and Vomiting (N/V). Insulin 2022-10 Yes [id number] 20U inject 20 Univers Glargine 0-02 Units ity of (LANTUS 00:00: under the [place] SOLOSTAR 00 skin in Medical U-100 the Branch INSULIN) morning 100 unit/mL and 20 (3 mL) Units in injection the evening. proMETHazin 2022-10 Yes [id number] 25mg Take 1 Univers e 25 mg 0-02 tablet by ity of tablet 00:00: mouth [place] 00 every 6 Medical (six) Branch hours as needed for Nausea and Vomiting (N/V). Insulin 2022-10 Yes [id number] 20U inject 20 Univers Glargine 0-02 Units ity of (LANTUS 00:00: under the [place] SOLOSTAR 00 skin in Medical U-100 the Branch INSULIN) morning 100 unit/mL and 20 (3 mL) Units in injection the evening. proMETHazin 2022-10 Yes [id number] 25mg Take 1 Univers e 25 mg 0-02 tablet by ity of tablet 00:00: mouth [place] 00 every 6 Medical (six) Branch hours as needed for Nausea and Vomiting (N/V). Insulin 2022-10 Yes [id number] 20U inject 20 Univers Glargine 0-02 Units ity of (LANTUS 00:00: under the [place] SOLOSTAR 00 skin in Medical U-100 the Branch INSULIN) morning 100 unit/mL and 20 (3 mL) Units in injection the evening. proMETHazin 2022-10 Yes [id number] 25mg Take 1 Univers e 25 mg 0-02 tablet by ity of tablet 00:00: mouth [place] 00 every 6 Medical (six) Branch hours as needed for Nausea and Vomiting (N/V). Insulin 2022-10 Yes [id number] 20U inject 20 Univers Glargine 0-02 Units ity of (LANTUS 00:00: under the [place] SOLOSTAR 00 skin in Medical U-100 the Branch INSULIN) morning 100 unit/mL and 20 (3 mL) Units in injection the evening. proMETHazin 2022-10 Yes [id number] 25mg Take 1 Univers e 25 mg 0-02 tablet by ity of tablet 00:00: mouth [place] 00 every 6 Medical (six) Branch hours as needed for Nausea and Vomiting (N/V). Insulin 2022-10 Yes [id number] 20U inject 20 Univers Glargine 0-02 Units ity of (LANTUS 00:00: under the [place] [facility] 00 skin in [facility] U-[address] [facility] Branch INSULIN) morning 100 unit/mL and 20 (3 mL) Units in injection the evening. proMETHazin 2022-10 Yes [id number] 25mg Take 1 Univers e 25 mg 0-02 tablet by ity of tablet 00:00: mouth [place] 00 every 6 Medical (six) Branch hours as needed for Nausea and Vomiting (N/V). Insulin 2022-10 Yes [id number] 20U inject 20 Univers Glargine 0-02 Units ity of (LANTUS 00:00: under the [facility] 00 skin in [facility] U-[address] [facility] Branch INSULIN) morning 100 unit/mL and 20 (3 mL) Units in injection the evening. semaglutide Yes [id number] 1mg inject 1 Univers (OZEMPIC) 1 8-18 mg under ity of mg/dose (4 00:00: the skin [place] mg/3 mL) 00 weekly. [facility] semaglutide Yes [id number] 1mg inject 1 Univers (OZEMPIC) 1 8-18 mg under ity of mg/dose (4 00:00: the skin [place] mg/3 mL) 00 weekly. [facility] semaglutide Yes [id number] 1mg inject 1 Univers (OZEMPIC) 1 8-18 mg under ity of mg/dose (4 00:00: the skin [place] mg/3 mL) 00 weekly. [facility] semaglutide Yes [id number] 1mg inject 1 Univers (OZEMPIC) 1 8-18 mg under ity of mg/dose (4 00:00: the skin [place] mg/3 mL) 00 weekly. [facility] semaglutide Yes [id number] 1mg inject 1 Univers (OZEMPIC) 1 8-18 mg under ity of mg/dose (4 00:00: the skin [place] mg/3 mL) 00 weekly. [facility] semaglutide Yes [id number] 1mg inject 1 Univers (OZEMPIC) 1 8-18 mg under ity of mg/dose (4 00:00: the skin [place] mg/3 mL) 00 weekly. [facility] semaglutide Yes [id number] 1mg inject 1 Univers (OZEMPIC) 1 8-18 mg under ity of mg/dose (4 00:00: the skin [place] mg/3 mL) 00 weekly. [facility] semaglutide Yes [id number] 1mg inject 1 Univers (OZEMPIC) 1 8-18 mg under ity of mg/dose (4 00:00: the skin [place] mg/3 mL) 00 weekly. [facility] semaglutide 2022- No [id number] 1mg inject 1 Univers (OZEMPIC) 1 8-18 10-10 mg under ity of mg/dose (4 00:00: 00:00 [place] mg/3 mL) 00 :00 weekly. [facility] semaglutide 2022- No [id number] 1mg inject 1 Univers (OZEMPIC) 1 8-18 10-10 mg under ity of mg/dose (4 00:00: 00:00 the skin [place] mg/3 mL) 00 :00 weekly. [facility] semaglutide 2022- No [id number] 1mg inject 1 Univers (OZEMPIC) 1 8-18 10-10 mg under ity of mg/dose (4 00:00: 00:00 the skin [place] mg/3 mL) 00 :00 weekly. [facility] Insulin Yes [id number] 15U inject 15 Univers Glargine 7-14 Units ity of (LANTUS 00:00: under the [place] SOLOSTAR 00 skin in [facility] U-100 [facility] INSULIN) morning 100 unit/mL and 15 (3 mL) Units in injection the evening. Insulin Yes [id number] 15U inject 15 Univers Glargine 7-14 Units ity of (LANTUS 00:00: under the [place] SOLOST[place] 00 skin in Medical U-100 the Branch INSULIN) morning 100 unit/mL and 15 (3 mL) Units in injection the evening. Insulin Yes [id number] 15U inject 15 Univers Glargine 7-14 Units ity of (LANTUS 00:00: under the [place] SOLOST[place] 00 skin in Medical U-100 the Branch INSULIN) morning 100 unit/mL and 15 (3 mL) Units in injection the evening. Insulin Yes [id number] 15U inject 15 Univers Glargine 7-14 Units ity of (LANTUS 00:00: under the [place] SOLOSTAR 00 skin in Medical U-100 the Branch INSULIN) morning 100 unit/mL and 15 (3 mL) Units in injection the evening. Insulin Yes [id number] 15U inject 15 Univers Glargine 7-14 Units ity of (LANTUS 00:00: under the [place] SOLOSTAR 00 skin in Medical U-100 the Branch INSULIN) morning 100 unit/mL and 15 (3 mL) Units in injection the evening. Insulin 2022- No [id number] 15U inject 15 Univers Glargine 7-14 10-02 Units ity of (LANTUS 00:00: 00:00 [place] :00 skin in Medical U-100 the Branch INSULIN) morning 100 unit/mL and 15 (3 mL) Units in injection the evening. Insulin 2022- No [id number] 15U inject 15 Univers Glargine 7-14 10-02 Units ity of (LANTUS 00:00: 00:00 under the [place] :00 skin in Medical U-100 the Branch INSULIN) morning 100 unit/mL and 15 (3 mL) Units in injection the evening. Insulin 2022- No [id number] 15U inject 15 Univers Glargine 7-14 10-02 Units ity of (LANTUS 00:00: 00:00 [place] :00 skin in Medical U-100 the Branch INSULIN) morning 100 unit/mL and 15 (3 mL) Units in injection the evening. semaglutide Yes [id number] .5mg inject 0.5 Univers (OZEMPIC) 7-06 mg under ity of 0.25 mg or 00:00: the skin [place] 0.5 mg(2 00 weekly. Medical mg/1.5 mL) Branch PnIj semaglutide 3-0 Yes [id number] .5mg inject 0.5 Univers (OZEMPIC) 7-06 mg under ity of 0.25 mg or 00:00: the skin [place] 0.5 mg(2 00 weekly. Medical mg/1.5 mL) Branch PnIj semaglutide 3-0 Yes [id number] .5mg inject 0.5 Univers (OZEMPIC) 7-06 mg under ity of 0.25 mg or 00:00: the skin [place] 0.5 mg(2 00 weekly. Medical mg/1.5 mL) Branch PnIj semaglutide 3-0 Yes [id number] .5mg inject 0.5 Univers (OZEMPIC) 7-06 mg under ity of 0.25 mg or 00:00: the skin [place] 0.5 mg(2 00 weekly. Medical mg/1.5 mL) Branch PnIj semaglutide 3-0 Yes [id number] .5mg inject 0.5 Univers (OZEMPIC) 7-06 mg under ity of 0.25 mg or 00:00: the skin [place] 0.5 mg(2 00 weekly. Medical mg/1.5 mL) Branch PnIj semaglutide 3-0 Yes [id number] .5mg inject 0.5 Univers (OZEMPIC) 7-06 mg under ity of 0.25 mg or 00:00: the skin [place] 0.5 mg(2 00 weekly. Medical mg/1.5 mL) Branch PnIj semaglutide 3-0 3- No [id number] .5mg inject 0.5 Univers (OZEMPIC) 7-06 08-18 mg under ity o f 0.25 mg or 00:00: 00:00 [place] 0.5 mg(2 00 :00 weekly. Medical mg/1.5 mL) Branch PnIj semaglutide 3-0 3- No [id number] .5mg inject 0.5 Univers (OZEMPIC) 7-06 08-18 mg under ity o f 0.25 mg or 00:00: 00:00 the skin [place] 0.5 mg(2 00 :00 weekly. Medical mg/1.5 mL) Branch PnIj Insulin 2022-0 Yes [id number] 15U inject 15 Univers Glargine 6-23 Units ity of (LANTUS 00:00: under the [place] 00 skin in Medical U-100 the Branch INSULIN) morning 100 unit/mL and 15 (3 mL) Units in injection the evening. semaglutide 0 Yes [id number] .25mg inject Univers (OZEMPIC) 6-23 0.25 mg ity of 0.25 mg or 00:00: under the [place] 0.5 mg(2 00 skin Medical mg/1.5 mL) weekly. Branch PnIj Insulin 0 Yes [id number] 15U inject 15 Univers Glargine 6-23 Units ity of (LANTUS 00:00: under the [place] SOL[place] 00 skin in Medical U-100 the Branch INSULIN) morning 100 unit/mL and 15 (3 mL) Units in injection the evening. semaglutide 0 Yes [id number] .25mg inject Univers (OZEMPIC) 6-23 0.25 mg ity of 0.25 mg or 00:00: under the [place] 0.5 mg(2 00 skin Medical mg/1.5 mL) weekly. Branch PnIj Insulin 0 Yes [id number] 15U inject 15 Univers Glargine 6-23 Units ity of (LANTUS 00:00: under the [place] SOLOSTAR 00 skin in Medical U-100 the Branch INSULIN) morning 100 unit/mL and 15 (3 mL) Units in injection the evening. semaglutide 2022-0 Yes [id number] .25mg inject Univers (OZEMPIC) 6-23 0.25 mg ity of 0.25 mg or 00:00: under the [place] 0.5 mg(2 00 skin Medical mg/1.5 mL) weekly. Branch PnIj Insulin 0 Yes [id number] 15U inject 15 Univers Glargine 6-23 Units ity of (LANTUS 00:00: under the [place] SOLOST[place] 00 skin in Medical U-100 the Branch INSULIN) morning 100 unit/mL and 15 (3 mL) Units in injection the evening. semaglutide 2022-0 Yes [id number] .25mg inject Univers (OZEMPIC) 6-23 0.25 mg ity of 0.25 mg or 00:00: under the [place] 0.5 mg(2 00 skin Medical mg/1.5 mL) weekly. Branch PnIj Insulin 0 Yes [id number] 15U inject 15 Univers Glargine 6-23 Units ity of (LANTUS 00:00: under the [place] SOL[place] 00 skin in Medical U-100 the Branch INSULIN) morning 100 unit/mL and 15 (3 mL) Units in injection the evening. semaglutide 0 Yes [id number] .25mg inject Univers (OZEMPIC) 6-23 0.25 mg ity of 0.25 mg or 00:00: under the [place] 0.5 mg(2 00 skin Medical mg/1.5 mL) weekly. Branch PnIj Insulin 0 Yes [id number] 15U inject 15 Univers Glargine 6-23 Units ity of (LANTUS 00:00: under the [place] SOLOST[place] 00 skin in Medical U-100 the Branch INSULIN) morning 100 unit/mL and 15 (3 mL) Units in injection the evening. semaglutide 0 Yes [id number] .25mg inject Univers (OZEMPIC) 6-23 0.25 mg ity of 0.25 mg or 00:00: under the [place] 0.5 mg(2 00 skin Medical mg/1.5 mL) weekly. Branch PnIj Insulin 0 Yes [id number] 15U inject 15 Univers Glargine 6-23 Units ity of (LANTUS 00:00: under the [place] SOL[place] 00 skin in Medical U-100 the Branch INSULIN) morning 100 unit/mL and 15 (3 mL) Units in injection the evening. Insulin 0 Yes [id number] 15U inject 15 Univers Glargine 6-23 Units ity of (LANTUS 00:00: under the [place] SOLOST[place] 00 skin in Medical U-100 the Branch INSULIN) morning 100 unit/mL and 15 (3 mL) Units in injection the evening. Insulin 0 Yes [id number] 15U inject 15 Univers Glargine 6-23 Units ity of (LANTUS 00:00: under the [place] [facility] 00 skin in Medical U-100 the Branch INSULIN) morning 100 unit/mL and 15 (3 mL) Units in injection the evening. Insulin Yes [id number] 15U inject 15 [facility] Glargine 6-23 Units ity of (LANTUS 00:00: under the [place] SOLOSTAR 00 skin in Medical U-100 the Branch INSULIN) morning 100 unit/mL and 15 (3 mL) Units in injection the evening. Insulin 2022- No [id number] 15U inject 15 [facility] Glargine 6-23 07-14 Units ity of ([place] 00:00: 00:[place] 00 :00 skin in Medical U-100 the Branch INSULIN) morning 100 unit/mL and 15 (3 mL) Units in injection the evening. Insulin 2022- No [id number] 15U inject 15 [facility] Glargine 6-23 07-14 Units ity of ([place] 00:00: 00:[place] 00 :00 skin in Medical U-100 the Branch INSULIN) morning 100 unit/mL and 15 (3 mL) Units in injection the evening. semaglutide 2022- No [id number] .25mg inject [facility] (OZEMPIC) 03-31-06 0.25 mg ity of 0.25 mg or 00:00: 00:00 under the [place] 0.5 mg(2 00 :00 skin Medical mg/1.5 mL) weekly. Branch PnIj semaglutide 2022- No [id number] .25mg inject [facility] (OZEMPIC) 03-31-06 0.25 mg ity of 0.25 mg or 00:00: 00:00 under the [place] 0.5 mg(2 00 :00 skin Medical mg/1.5 mL) weekly. Branch PnIj icosapent 0 Yes [id number] 2g Take 2 U nivers ethyL 6-16 capsules ity of (VASCEPA) 1 00:00: by mouth [place] gram 00 in the Medical capsule morning Branch and 2 capsules in the evening. ezetimibe 2023-0 Yes [id number] 10mg Take 1 U nivers 10 mg 6-16 tablet by ity of tablet 00:00: mouth in [place] 00 the Medical morning. Branch rosuvastati 2022-0 Yes [id number] 20mg Take 1 [facility] n (CRESTOR) 6-16 tablet by ity of 20 mg 00:00: mouth at [place] tablet 00 bedtime. Medical Branch lisinopriL 2022-0 Yes [id number] 2.5mg Take 1 [facility] 2.5 mg 6-16 tablet by ity of tablet 00:00: mouth in [place] 00 the Medical morning. Branch icosapent 2022-0 Yes [id number] 2g Take 2 U nivers ethyL 6-16 capsules ity of (VASCEPA) 1 00:00: by mouth [place] gram 00 in the Medical capsule morning Branch and 2 capsules in the evening. ezetimibe 2022-0 Yes [id number] 10mg Take 1 U nivers 10 mg 6-16 tablet by ity of tablet 00:00: mouth in [place] 00 the Medical morning. Branch rosuvastati 2022-0 Yes [id number] 20mg Take 1 [facility] n (CRESTOR) 6-16 tablet by ity of 20 mg 00:00: mouth at [place] tablet 00 bedtime. Medical Branch lisinopriL 2022-0 Yes [id number] 2.5mg Take 1 [facility] 2.5 mg 6-16 tablet by ity of tablet 00:00: mouth in [place] 00 the Medical morning. Branch icosapent 2022-0 Yes [id number] 2g Take 2 U nivers ethyL 6-16 capsules ity of (VASCEPA) 1 00:00: by mouth [place] gram 00 in the Medical capsule morning Branch and 2 capsules in the evening. ezetimibe 2022-0 Yes [id number] 10mg Take 1 U nivers 10 mg 6-16 tablet by ity of tablet 00:00: mouth in [place] 00 the Medical morning. Branch rosuvastati 2022-0 Yes [id number] 20mg Take 1 [facility] n (CRESTOR) 6-16 tablet by ity of 20 mg 00:00: mouth at [place] tablet 00 bedtime. Medical Branch lisinopriL 2022-0 Yes [id number] 2.5mg Take 1 [facility] 2.5 mg 6-16 tablet by ity of tablet 00:00: mouth in [place] 00 the Medical morning. Branch icosapent 2022-0 Yes [id number] 2g Take 2 U nivers ethyL 6-16 capsules ity of (VASCEPA) 1 00:00: by mouth [place] gram 00 in the Medical capsule morning Branch and 2 capsules in the evening. ezetimibe 2022-0 Yes [id number] 10mg Take 1 U nivers 10 mg 6-16 tablet by ity of tablet 00:00: mouth in [place] 00 the Medical morning. Branch rosuvastati 2022-0 Yes [id number] 20mg Take 1 [facility] n (CRESTOR) 6-16 tablet by ity of 20 mg 00:00: mouth at [place] tablet 00 bedtime. Medical Branch lisinopriL 2022-0 Yes [id number] 2.5mg Take 1 [facility] 2.5 mg 6-16 tablet by ity of tablet 00:00: mouth in [place] 00 the Medical morning. Branch icosapent 2022-0 Yes [id number] 2g Take 2 U nivers ethyL 6-16 capsules ity of (VASCEPA) 1 00:00: by mouth [place] gram 00 in the Medical capsule morning Branch and 2 capsules in the evening. ezetimibe 2022-0 Yes [id number] 10mg Take 1 U nivers 10 mg 6-16 tablet by ity of tablet 00:00: mouth in [place] 00 the Medical morning. Branch rosuvastati 2022-0 Yes [id number] 20mg Take 1 [facility] n (CRESTOR) 6-16 tablet by ity of 20 mg 00:00: mouth at [place] tablet 00 bedtime. Medical Branch lisinopriL 2022-0 Yes [id number] 2.5mg Take 1 [facility] 2.5 mg 6-16 tablet by ity of tablet 00:00: mouth in [place] 00 the Medical morning. Branch icosapent 2022-0 Yes [id number] 2g Take 2 U nivers ethyL 6-16 capsules ity of (VASCEPA) 1 00:00: by mouth [place] gram 00 in the Medical capsule morning Branch and 2 capsules in the evening. ezetimibe 3-0 Yes [id number] 10mg Take 1 U nivers 10 mg 6-16 tablet by ity of tablet 00:00: mouth in [place] 00 the Medical morning. Branch rosuvastati 2022-0 Yes [id number] 20mg Take 1 [facility] n (CRESTOR) 6-16 tablet by ity of 20 mg 00:00: mouth at [place] tablet 00 bedtime. Medical Branch lisinopriL 2022-0 Yes [id number] 2.5mg Take 1 [facility] 2.5 mg 6-16 tablet by ity of tablet 00:00: mouth in [place] 00 the Medical morning. Branch icosapent 2022-0 Yes [id number] 2g Take 2 U nivers ethyL 6-16 capsules ity of (VASCEPA) 1 00:00: by mouth [place] gram 00 in the Medical capsule morning Branch and 2 capsules in the evening. ezetimibe 2022-0 Yes [id number] 10mg Take 1 U nivers 10 mg 6-16 tablet by ity of tablet 00:00: mouth in [place] 00 the Medical morning. Branch rosuvastati 2022-0 Yes [id number] 20mg Take 1 [facility] n (CRESTOR) 6-16 tablet by ity of 20 mg 00:00: mouth at [place] tablet 00 bedtime. Medical Branch lisinopriL 2022-0 Yes [id number] 2.5mg Take 1 [facility] 2.5 mg 6-16 tablet by ity of tablet 00:00: mouth in [place] 00 the Medical morning. Branch icosapent 2022-0 Yes [id number] 2g Take 2 U nivers ethyL 6-16 capsules ity of (VASCEPA) 1 00:00: by mouth [place] gram 00 in the Medical capsule morning Branch and 2 capsules in the evening. ezetimibe 2022-0 Yes [id number] 10mg Take 1 U nivers 10 mg 6-16 tablet by ity of tablet 00:00: mouth in [place] 00 the Medical morning. Branch rosuvastati 2022-0 Yes [id number] 20mg Take 1 [facility] n (CRESTOR) 6-16 tablet by ity of 20 mg 00:00: mouth at [place] tablet 00 bedtime. Medical Branch lisinopriL 2022-0 Yes [id number] 2.5mg Take 1 [facility] 2.5 mg 6-16 tablet by ity of tablet 00:00: mouth in [place] 00 the Medical morning. Branch icosapent 2022-0 Yes [id number] 2g Take 2 U nivers ethyL 6-16 capsules ity of (VASCEPA) 1 00:00: by mouth [place] gram 00 in the Medical capsule morning Branch and 2 capsules in the evening. ezetimibe 3-0 Yes [id number] 10mg Take 1 U nivers 10 mg 6-16 tablet by ity of tablet 00:00: mouth in [place] 00 the Medical morning. Branch rosuvastati 3-0 Yes [id number] 20mg Take 1 [facility] n (CRESTOR) 6-16 tablet by ity of 20 mg 00:00: mouth at [place] tablet 00 bedtime. Medical Branch lisinopriL 2022-0 Yes [id number] 2.5mg Take 1 [facility] 2.5 mg 6-16 tablet by ity of tablet 00:00: mouth in [place] 00 the Medical morning. Branch icosapent 2022-0 Yes [id number] 2g Take 2 U nivers ethyL 6-16 capsules ity of (VASCEPA) 1 00:00: by mouth [place] gram 00 in the Medical capsule morning Branch and 2 capsules in the evening. ezetimibe 2022-0 Yes [id number] 10mg Take 1 U nivers 10 mg 6-16 tablet by ity of tablet 00:00: mouth in [place] 00 the Medical morning. Branch rosuvastati 2022-0 Yes [id number] 20mg Take 1 [facility] n (CRESTOR) 6-16 tablet by ity of 20 mg 00:00: mouth at [place] tablet 00 bedtime. Medical Branch lisinopriL 2022-0 Yes [id number] 2.5mg Take 1 [facility] 2.5 mg 6-16 tablet by ity of tablet 00:00: mouth in [place] 00 the Medical morning. Branch icosapent 2022-0 Yes [id number] 2g Take 2 U nivers ethyL 6-16 capsules ity of (VASCEPA) 1 00:00: by mouth [place] gram 00 in the Medical capsule morning Branch and 2 capsules in the evening. ezetimibe 3-0 Yes [id number] 10mg Take 1 U nivers 10 mg 6-16 tablet by ity of tablet 00:00: mouth in [place] 00 the Medical morning. Branch rosuvastati 3-0 Yes [id number] 20mg Take 1 [facility] n (CRESTOR) 6-16 tablet by ity of 20 mg 00:00: mouth at [place] tablet 00 bedtime. Medical Branch lisinopriL 3-0 Yes [id number] 2.5mg Take 1 [facility] 2.5 mg 6-16 tablet by ity of tablet 00:00: mouth in [place] 00 the Medical morning. Branch icosapent 2022-0 Yes [id number] 2g Take 2 U nivers ethyL 6-16 capsules ity of (VASCEPA) 1 00:00: by mouth [place] gram 00 in the Medical capsule morning Branch and 2 capsules in the evening. ezetimibe 2023-0 Yes [id number] 10mg Take 1 U nivers 10 mg 6-16 tablet by ity of tablet 00:00: mouth in [place] 00 the Medical morning. Branch rosuvastati 2022-0 Yes [id number] 20mg Take 1 [facility] n (CRESTOR) 6-16 tablet by ity of 20 mg 00:00: mouth at [place] tablet 00 bedtime. Medical Branch lisinopriL 2022-0 Yes [id number] 2.5mg Take 1 [facility] 2.5 mg 6-16 tablet by ity of tablet 00:00: mouth in [place] 00 the Medical morning. Branch icosapent 2022-0 Yes [id number] 2g Take 2 U nivers ethyL 6-16 capsules ity of (VASCEPA) 1 00:00: by mouth [place] gram 00 in the Medical capsule morning Branch and 2 capsules in the evening. ezetimibe 2022-0 Yes [id number] 10mg Take 1 U nivers 10 mg 6-16 tablet by ity of tablet 00:00: mouth in [place] 00 the Medical morning. Branch rosuvastati 3-0 Yes [id number] 20mg Take 1 [facility] n (CRESTOR) 6-16 tablet by ity of 20 mg 00:00: mouth at [place] tablet 00 bedtime. Medical Branch lisinopriL 2022-0 Yes [id number] 2.5mg Take 1 [facility] 2.5 mg 6-16 tablet by ity of tablet 00:00: mouth in [place] 00 the Medical morning. Branch icosapent 2022-0 Yes [id number] 2g Take 2 U nivers ethyL 6-16 capsules ity of (VASCEPA) 1 00:00: by mouth [place] gram 00 in the Medical capsule morning Branch and 2 capsules in the evening. ezetimibe 2023-0 Yes [id number] 10mg Take 1 U nivers 10 mg 6-16 tablet by ity of tablet 00:00: mouth in [place] 00 the Medical morning. Branch rosuvastati 2022-0 Yes [id number] 20mg Take 1 [facility] n (CRESTOR) 6-16 tablet by ity of 20 mg 00:00: mouth at [place] tablet 00 bedtime. Medical Branch lisinopriL 2022-0 Yes [id number] 2.5mg Take 1 [facility] 2.5 mg 6-16 tablet by ity of tablet 00:00: mouth in [place] 00 the Medical morning. Branch icosapent 2022-0 Yes [id number] 2g Take 2 U nivers ethyL 6-16 capsules ity of (VASCEPA) 1 00:00: by mouth [place] gram 00 in the Medical capsule morning Branch and 2 capsules in the evening. ezetimibe 2022-0 Yes [id number] 10mg Take 1 U nivers 10 mg 6-16 tablet by ity of tablet 00:00: mouth in [place] 00 the Medical morning. Branch rosuvastati 2022-0 Yes [id number] 20mg Take 1 [facility] n (CRESTOR) 6-16 tablet by ity of 20 mg 00:00: mouth at [place] tablet 00 bedtime. Medical Branch lisinopriL 2022-0 Yes [id number] 2.5mg Take 1 [facility] 2.5 mg 6-16 tablet by ity of tablet 00:00: mouth in [place] 00 the Medical morning. Branch icosapent 2022-0 Yes [id number] 2g Take 2 U nivers ethyL 6-16 capsules ity of (VASCEPA) 1 00:00: by mouth [place] gram 00 in the Medical capsule morning Branch and 2 capsules in the evening. ezetimibe 2022-0 Yes [id number] 10mg Take 1 U nivers 10 mg 6-16 tablet by ity of tablet 00:00: mouth in [place] 00 the Medical morning. Branch rosuvastati 2022-0 Yes [id number] 20mg Take 1 [facility] n (CRESTOR) 6-16 tablet by ity of 20 mg 00:00: mouth at [place] tablet 00 bedtime. Medical Branch lisinopriL 2022-0 Yes [id number] 2.5mg Take 1 [facility] 2.5 mg 6-16 tablet by ity of tablet 00:00: mouth in [place] 00 the Medical morning. Branch icosapent 2022-0 Yes [id number] 2g Take 2 U nivers ethyL 6-16 capsules ity of (VASCEPA) 1 00:00: by mouth [place] gram 00 in the Medical capsule morning Branch and 2 capsules in the evening. ezetimibe 3-0 Yes [id number] 10mg Take 1 U nivers 10 mg 6-16 tablet by ity of tablet 00:00: mouth in [place] 00 the Medical morning. Branch rosuvastati 2022-0 Yes [id number] 20mg Take 1 [facility] n (CRESTOR) 6-16 tablet by ity of 20 mg 00:00: mouth at [place] tablet 00 bedtime. Medical Branch lisinopriL 2022-0 Yes [id number] 2.5mg Take 1 [facility] 2.5 mg 6-16 tablet by ity of tablet 00:00: mouth in [place] the Medical morning. Branch icosapent 2022-0 Yes [id number] 2g Take 2 U nivers ethyL 6-16 capsules ity of (VASCEPA) 1 00:00: by mouth [place] gram 00 in the Medical capsule morning Branch and 2 capsules in the evening. ezetimibe 2022-0 Yes [id number] 10mg Take 1 U nivers 10 mg 6-16 tablet by ity of tablet 00:00: mouth in [place] the Medical morning. Branch rosuvastati 2022-0 Yes [id number] 20mg Take 1 [facility] n (CRESTOR) 6-16 tablet by ity of 20 mg 00:00: mouth at [place] tablet 00 bedtime. Medical Branch lisinopriL 3-0 Yes [id number] 2.5mg Take 1 [facility] 2.5 mg 6-16 tablet by ity of tablet 00:00: mouth in [place] 00 the Medical morning. Branch icosapent 2022-0 Yes [id number] 2g Take 2 U nivers ethyL 6-16 capsules ity of (VASCEPA) 1 00:00: by mouth [place] gram 00 in the Medical capsule morning Branch and 2 capsules in the evening. ezetimibe 2023-0 Yes [id number] 10mg Take 1 U nivers 10 mg 6-16 tablet by ity of tablet 00:00: mouth in [place] 00 the Medical morning. Branch rosuvastati 2023-0 Yes [id number] 20mg Take 1 [facility] n (CRESTOR) 6-16 tablet by ity of 20 mg 00:00: mouth at [place] tablet 00 bedtime. Medical Branch lisinopriL 2022-0 Yes [id number] 2.5mg Take 1 [facility] 2.5 mg 6-16 tablet by ity of tablet 00:00: mouth in [place] 00 the Medical morning. Branch icosapent 2022-0 Yes [id number] 2g Take 2 U nivers ethyL 6-16 capsules ity of (VASCEPA) 1 00:00: by mouth [place] gram 00 in the Medical capsule morning Branch and 2 capsules in the evening. ezetimibe 2022-0 Yes [id number] 10mg Take 1 U nivers 10 mg 6-16 tablet by ity of tablet 00:00: mouth in [place] 00 the Medical morning. Branch rosuvastati 2022-0 Yes [id number] 20mg Take 1 [facility] n (CRESTOR) 6-16 tablet by ity of 20 mg 00:00: mouth at [place] tablet 00 bedtime. Medical Branch lisinopriL 2022-0 Yes [id number] 2.5mg Take 1 [facility] 2.5 mg 6-16 tablet by ity of tablet 00:00: mouth in [place] 00 the Medical morning. Branch icosapent 2022-0 Yes [id number] 2g Take 2 U nivers ethyL 6-16 capsules ity of (VASCEPA) 1 00:00: by mouth [place] gram 00 in the Medical capsule morning Branch and 2 capsules in the evening. ezetimibe 2022-0 Yes [id number] 10mg Take 1 U nivers 10 mg 6-16 tablet by ity of tablet 00:00: mouth in [place] 00 the Medical morning. Branch rosuvastati 2022-0 Yes [id number] 20mg Take 1 [facility] n (CRESTOR) 6-16 tablet by ity of 20 mg 00:00: mouth at [place] tablet 00 bedtime. Medical Branch lisinopriL 2022-0 Yes [id number] 2.5mg Take 1 [facility] 2.5 mg 6-16 tablet by ity of tablet 00:00: mouth in [place] 00 the Medical morning. Branch icosapent 2022-0 Yes [id number] 2g Take 2 U nivers ethyL 6-16 capsules ity of (VASCEPA) 1 00:00: by mouth [place] gram 00 in the Medical capsule morning Branch and 2 capsules in the evening. ezetimibe 2022-0 Yes [id number] 10mg Take 1 U nivers 10 mg 6-16 tablet by ity of tablet 00:00: mouth in [place] 00 the Medical morning. Branch rosuvastati 2022-0 Yes [id number] 20mg Take 1 [facility] n (CRESTOR) 6-16 tablet by ity of 20 mg 00:00: mouth at [place] tablet 00 bedtime. Medical Branch lisinopriL 2022-0 Yes [id number] 2.5mg Take 1 [facility] 2.5 mg 6-16 tablet by ity of tablet 00:00: mouth in [place] 00 the Medical morning. Branch icosapent 2022-0 Yes [id number] 2g Take 2 U nivers ethyL 6-16 capsules ity of (VASCEPA) 1 00:00: by mouth [place] gram 00 in the Medical capsule morning Branch and 2 capsules in the evening. ezetimibe 2022-0 Yes [id number] 10mg Take 1 U nivers 10 mg 6-16 tablet by ity of tablet 00:00: mouth in [place] 00 the Medical morning. Branch rosuvastati 2022-0 Yes [id number] 20mg Take 1 [facility] n (CRESTOR) 6-16 tablet by ity of 20 mg 00:00: mouth at [place] tablet 00 bedtime. Medical Branch lisinopriL 2022-0 Yes [id number] 2.5mg Take 1 [facility] 2.5 mg 6-16 tablet by ity of tablet 00:00: mouth in [place] 00 the Medical morning. Branch icosapent 2022-0 Yes [id number] 2g Take 2 U nivers ethyL 6-16 capsules ity of (VASCEPA) 1 00:00: by mouth [place] gram 00 in the Medical capsule morning Branch and 2 capsules in the evening. ezetimibe 2022-0 Yes [id number] 10mg Take 1 U nivers 10 mg 6-16 tablet by ity of tablet 00:00: mouth in [place] 00 the Medical morning. Branch rosuvastati 2022-0 Yes [id number] 20mg Take 1 [facility] n (CRESTOR) 6-16 tablet by ity of 20 mg 00:00: mouth at [place] tablet 00 bedtime. Medical Branch lisinopriL 2022-0 Yes [id number] 2.5mg Take 1 [facility] 2.5 mg 6-16 tablet by ity of tablet 00:00: mouth in [place] 00 the Medical morning. Branch icosapent 2022-0 Yes [id number] 2g Take 2 U nivers ethyL 6-16 capsules ity of (VASCEPA) 1 00:00: by mouth [place] gram 00 in the Medical capsule morning Branch and 2 capsules in the evening. ezetimibe 2022-0 Yes [id number] 10mg Take 1 U nivers 10 mg 6-16 tablet by ity of tablet 00:00: mouth in [place] 00 the Medical morning. Branch rosuvastati 2022-0 Yes [id number] 20mg Take 1 [facility] n (CRESTOR) 6-16 tablet by ity of 20 mg 00:00: mouth at [place] tablet 00 bedtime. Medical Branch lisinopriL 2022-0 Yes [id number] 2.5mg Take 1 [facility] 2.5 mg 6-16 tablet by ity of tablet 00:00: mouth in [place] 00 the Medical morning. Branch icosapent 2022-0 Yes [id number] 2g Take 2 U nivers ethyL 6-16 capsules ity of (VASCEPA) 1 00:00: by mouth [place] gram 00 in the Medical capsule morning Branch and 2 capsules in the evening. ezetimibe 2022-0 Yes [id number] 10mg Take 1 U nivers 10 mg 6-16 tablet by ity of tablet 00:00: mouth in [place] 00 the Medical morning. Branch rosuvastati 2022-0 Yes [id number] 20mg Take 1 [facility] n (CRESTOR) 6-16 tablet by ity of 20 mg 00:00: mouth at [place] tablet 00 bedtime. Medical Branch lisinopriL 2022-0 Yes [id number] 2.5mg Take 1 [facility] 2.5 mg 6-16 tablet by ity of tablet 00:00: mouth in [place] 00 the Medical morning. Branch icosapent 2022-0 Yes [id number] 2g Take 2 U nivers ethyL 6-16 capsules ity of (VASCEPA) 1 00:00: by mouth [place] gram 00 in the Medical capsule morning Branch and 2 capsules in the evening. ezetimibe 3-0 Yes [id number] 10mg Take 1 U nivers 10 mg 6-16 tablet by ity of tablet 00:00: mouth in [place] 00 the Medical morning. Branch rosuvastati 2022-0 Yes [id number] 20mg Take 1 [facility] n (CRESTOR) 6-16 tablet by ity of 20 mg 00:00: mouth at [place] tablet 00 bedtime. Medical Branch lisinopriL 2022-0 Yes [id number] 2.5mg Take 1 [facility] 2.5 mg 6-16 tablet by ity of tablet 00:00: mouth in [place] 00 the Medical morning. Branch icosapent 2022-0 Yes [id number] 2g Take 2 U nivers ethyL 6-16 capsules ity of (VASCEPA) 1 00:00: by mouth [place] gram 00 in the Medical capsule morning Branch and 2 capsules in the evening. ezetimibe 2022-0 Yes [id number] 10mg Take 1 U nivers 10 mg 6-16 tablet by ity of tablet 00:00: mouth in [place] 00 the Medical morning. Branch rosuvastati 2022-0 Yes [id number] 20mg Take 1 [facility] n (CRESTOR) 6-16 tablet by ity of 20 mg 00:00: mouth at [place] tablet 00 bedtime. Medical Branch lisinopriL 2022-0 Yes [id number] 2.5mg Take 1 [facility] 2.5 mg 6-16 tablet by ity of tablet 00:00: mouth in [place] 00 the Medical morning. Branch icosapent 2022-0 Yes [id number] 2g Take 2 U nivers ethyL 6-16 capsules ity of (VASCEPA) 1 00:00: by mouth [place] gram 00 in the Medical capsule morning Branch and 2 capsules in the evening. ezetimibe 2022-0 Yes [id number] 10mg Take 1 U nivers 10 mg 6-16 tablet by ity of tablet 00:00: mouth in [place] 00 the Medical morning. Branch rosuvastati 2022-0 Yes [id number] 20mg Take 1 [facility] n (CRESTOR) 6-16 tablet by ity of 20 mg 00:00: mouth at [place] tablet 00 bedtime. Medical Branch lisinopriL 2022-0 Yes [id number] 2.5mg Take 1 [facility] 2.5 mg 6-16 tablet by ity of tablet 00:00: mouth in [place] 00 the Medical morning. Branch icosapent 2022-0 Yes [id number] 2g Take 2 U nivers ethyL 6-16 capsules ity of (VASCEPA) 1 00:00: by mouth [place] gram 00 in the Medical capsule morning Branch and 2 capsules in the evening. ezetimibe 2022-0 Yes [id number] 10mg Take 1 U nivers 10 mg 6-16 tablet by ity of tablet 00:00: mouth in [place] 00 the Medical morning. Branch rosuvastati 2022-0 Yes [id number] 20mg Take 1 [facility] n (CRESTOR) 6-16 tablet by ity of 20 mg 00:00: mouth at [place] tablet 00 bedtime. Medical Branch lisinopriL 2022-0 Yes [id number] 2.5mg Take 1 [facility] 2.5 mg 6-16 tablet by ity of tablet 00:00: mouth in [place] 00 the Medical morning. Branch icosapent 2022-0 Yes [id number] 2g Take 2 U nivers ethyL 6-16 capsules ity of (VASCEPA) 1 00:00: by mouth [place] gram 00 in the Medical capsule morning Branch and 2 capsules in the evening. ezetimibe 2022-0 Yes [id number] 10mg Take 1 U nivers 10 mg 6-16 tablet by ity of tablet 00:00: mouth in [place] the Medical morning. Branch rosuvastati 2022-0 Yes [id number] 20mg Take 1 [facility] n (CRESTOR) 6-16 tablet by ity of 20 mg 00:00: mouth at [place] tablet 00 bedtime. Medical Branch lisinopriL 2022-0 Yes [id number] 2.5mg Take 1 [facility] 2.5 mg 6-16 tablet by ity of tablet 00:00: mouth in [place] 00 the Medical morning. Branch icosapent 2022-0 Yes [id number] 2g Take 2 U nivers ethyL 6-14 capsules ity of (VASCEPA) 1 00:00: by mouth [place] gram 00 in the Medical capsule morning Branch and 2 capsules in the evening. icosapent 2022-0 3- No [id number] 2g Take 2 [facility] ethyL 6-14 06-16 capsules ity of (VASCEPA) 1 00:00: 00:00 by mouth [place] gram 00 :00 in the Medical capsule morning Branch and 2 capsules in the evening. icosapent 0 2022- No [id number] 2g Take 2 [facility] ethyL 6-14 06-16 capsules ity of (VASCEPA) 1 00:00: 00:00 by mouth [place] gram 00 :00 in the Medical capsule morning Branch and 2 capsules in the evening. ezetimibe 3-0 Yes [id number] 10mg Take 1 U nivers 10 mg 5-22 tablet by ity of tablet 00:00: mouth in [place] 00 the Medical morning. Branch ezetimibe 2022-0 Yes [id number] 10mg Take 1 U nivers 10 mg 5-22 tablet by ity of tablet 00:00: mouth in [place] 00 the Medical morning. Branch ezetimibe 2022-0 2022- No [id number] 10mg Take 1 [facility] 10 mg 5-22 06-16 tablet by ity of tablet 00:00: 00:00 mouth in [place] 00 :00 the Medical morning. Branch ezetimibe 2022-0 2022- No [id number] 10mg Take 1 [facility] 10 mg 5-22 06-16 tablet by ity of tablet 00:00: 00:00 mouth in [place] 00 :00 the Medical morning. Branch icosapent 0 Yes [id number] 2g Take 2 U nivers ethyL 4-14 capsules ity of (VASCEPA) 1 00:00: by mouth [place] gram 00 in the Medical capsule morning Branch and 2 capsules in the evening. icosapent 2022-0 Yes [id number] 2g Take 2 U nivers ethyL 4-14 capsules ity of (VASCEPA) 1 00:00: by mouth [place] gram 00 in the Medical capsule morning Branch and 2 capsules in the evening. icosapent 2022-0 Yes [id number] 2g Take 2 U nivers ethyL 4-14 capsules ity of (VASCEPA) 1 00:00: by mouth [place] gram 00 in the Medical capsule morning Branch and 2 capsules in the evening. icosapent 0 2022- No [id number] 2g Take 2 [facility] ethyL 4-14 06-14 capsules ity of (VASCEPA) 1 00:00: 00:00 by mouth [place] gram 00 :00 in the Medical capsule morning Branch and 2 capsules in the evening. rosuvastati Yes [id number] 20mg Take 1 [facility] n (CRESTOR) 4-03 tablet by ity of 20 mg 00:00: mouth at [place] tablet 00 bedtime. Medical Branch rosuvastati 0 Yes [id number] 20mg Take 1 [facility] n (CRESTOR) 4-03 tablet by ity of 20 mg 00:00: mouth at [place] tablet 00 bedtime. [facility] Branch rosuvastati 0 Yes [id number] 20mg Take 1 [facility] n (CRESTOR) 4-03 tablet by ity of 20 mg 00:00: mouth at [place] tablet 00 bedtime. [facility] Branch rosuvastati 0 Yes [id number] 20mg Take 1 [facility] n (CRESTOR) 4-03 tablet by ity of 20 mg 00:00: mouth at [place] tablet 00 bedtime. [facility] Branch rosuvastati Yes [id number] 20mg Take 1 [facility] n (CRESTOR) 4-03 tablet by ity of 20 mg 00:00: mouth at [place] tablet 00 bedtime. [facility] Branch rosuvastati 2022- No [id number] 20mg Take 1 [facility] n (CRESTOR) 4-03 06-16 tablet by it y of 20 mg 00:00: 00:00 mouth at [place] tablet 00 :00 bedtime. [facility] Branch rosuvastati 0 3- No [id number] 20mg Take 1 [facility] n (CRESTOR) 4-03 06-16 tablet by it y of 20 mg 00:00: 00:00 mouth at [place] tablet 00 :00 bedtime. Medical Branch lisinopriL 0 Yes [id number] 2.5mg Take 1 [facility] 2.5 mg 1-10 tablet by ity of tablet 00:00: mouth in [place] 00 the Medical morning. Branch lisinopriL 2022-0 Yes [id number] 2.5mg Take 1 [facility] 2.5 mg 1-10 tablet by ity of tablet 00:00: mouth in [place] 00 the Medical morning. Branch lisinopriL 0 Yes [id number] 2.5mg Take 1 [facility] 2.5 mg 1-10 tablet by ity of tablet 00:00: mouth in [place] 00 the Medical morning. Branch lisinopriL 2023-0 Yes [id number] 2.5mg Take 1 [facility] 2.5 mg 1-10 tablet by ity of tablet 00:00: mouth in [place] 00 the Medical morning. Branch lisinopriL 2022-0 Yes [id number] 2.5mg Take 1 [facility] 2.5 mg 1-10 tablet by ity of tablet 00:00: mouth in [place] 00 the Medical morning. Branch lisinopriL 2022-0 Yes [id number] 2.5mg Take 1 [facility] 2.5 mg 1-10 tablet by ity of tablet 00:00: mouth in [place] 00 the Medical morning. Branch lisinopriL 2022-0 3- No [id number] 2.5mg Take 1 [facility] 2.5 mg 1-10 06-16 tablet by ity of tablet 00:00: 00:00 mouth in [place] 00 :00 the Medical morning. Branch lisinopriL 2022-0 3- No [id number] 2.5mg Take 1 [facility] 2.5 mg 1-10 06-16 tablet by it[facility] of tablet 00:00: 00:00 mouth in [place] 00 :00 the Medical morning. Branch metformin 2021-10 Yes [id number] 750mg Take 1 [facility] ER 750 mg 2-30 tablet by ity o f 24 hr 00:00: mouth [place] tablet 00 daily with Medical breakfast. Branch glipiZIDE 2021-10 Yes [id number] 20mg Take 2 U nivers XL 10 mg 24 2-30 tablets by it y of hr tablet 00:00: mouth [place] 00 daily with Medical breakfast. Branch metformin 2021-10 Yes [id number] 750mg Take 1 [facility] ER 750 mg 2-30 tablet by ity o f 24 hr 00:00: mouth [place] tablet 00 daily with Medical breakfast. Branch glipiZIDE 2021-10 Yes [id number] 20mg Take 2 U nivers XL 10 mg 24 2-30 tablets by it y of hr tablet 00:00: mouth [place] 00 daily with Medical breakfast. Branch metformin 2021-10 Yes [id number] 750mg Take 1 [facility] ER 750 mg 2-30 tablet by ity o f 24 hr 00:00: mouth [place] tablet 00 daily with Medical breakfast. Branch glipiZIDE 2021-10 Yes [id number] 20mg Take 2 U nivers XL 10 mg 24 2-30 tablets by it y of hr tablet 00:00: mouth [place] 00 daily with Medical breakfast. [place] metformin 2021-10 Yes [id number] 750mg Take 1 [facility] ER 750 mg 2-30 tablet by ity o f 24 hr 00:00: mouth [place] tablet 00 daily with Medical breakfast. Branch glipiZIDE 2021-10 Yes [id number] 20mg Take 2 U nivers XL 10 mg 24 2-30 tablets by it y of hr tablet 00:00: mouth [place] 00 daily with Medical breakfast. Branch metformin 2021-10 Yes [id number] 750mg Take 1 [facility] ER 750 mg 2-30 tablet by ity o f 24 hr 00:00: mouth [place] tablet 00 daily with Medical breakfast. Branch glipiZIDE 2021-10 Yes [id number] 20mg Take 2 U nivers XL 10 mg 24 2-30 tablets by it y of hr tablet 00:00: mouth [place] 00 daily with Medical breakfast. Branch metformin 2021-10 Yes [id number] 750mg Take 1 [facility] ER 750 mg 2-30 tablet by ity o f 24 hr 00:00: mouth [place] tablet 00 daily with Medical breakfast. Branch glipiZIDE 2021-10 Yes [id number] 20mg Take 2 [facility] nivers XL 10 mg 24 2-30 tablets by it y of hr tablet 00:00: mouth [place] 00 daily with Medical breakfast. [place] metformin 2021-10 Yes [id number] 750mg Take 1 [facility] ER 750 mg 2-30 tablet by ity o f 24 hr 00:00: mouth [place] tablet 00 daily with Medical breakfast. Branch glipiZIDE 2021-10 Yes [id number] 20mg Take 2 U nivers XL 10 mg 24 2-30 tablets by it y of hr tablet 00:00: mouth [place] 00 daily with Medical breakfast. [place] metformin 2021-10 Yes [id number] 750mg Take 1 [facility] ER 750 mg 2-30 tablet by ity o f 24 hr 00:00: mouth [place] tablet 00 daily with Medical breakfast. Branch glipiZIDE 2021-10 Yes [id number] 20mg Take 2 [facility] nivers XL 10 mg 24 2-30 tablets by it y of hr tablet 00:00: mouth [place] 00 daily with Medical breakfast. [place] metformin 2021-10 Yes [id number] 750mg Take 1 [facility] ER 750 mg 2-30 tablet by ity o f 24 hr 00:00: mouth [place] tablet 00 daily with Medical breakfast. [place] glipiZIDE 2021-10 Yes [id number] 20mg Take 2 [facility] nivers XL 10 mg 24 2-30 tablets by it y of hr tablet 00:00: mouth [place] 00 daily with Medical breakfast. Branch metformin 2021-10 Yes [id number] 750mg Take 1 [facility] ER 750 mg 2-30 tablet by ity o f 24 hr 00:00: mouth [place] tablet 00 daily with Medical breakfast. Branch glipiZIDE 2021-10 Yes [id number] 20mg Take 2 [facility] nivers XL 10 mg 24 2-30 tablets by it y of hr tablet 00:00: mouth [place] 00 daily with Medical breakfast. Branch metformin 2021-10 Yes [id number] 750mg Take 1 [facility] ER 750 mg 2-30 tablet by ity o f 24 hr 00:00: mouth [place] tablet 00 daily with Medical breakfast. Branch glipiZIDE 2021-10 Yes [id number] 20mg Take 2 [facility] nivers XL 10 mg 24 2-30 tablets by it y of hr tablet 00:00: mouth [place] 00 daily with Medical breakfast. Branch metformin 2021-10 Yes [id number] 750mg Take 1 [facility] ER 750 mg 2-30 tablet by ity o f 24 hr 00:00: mouth [place] tablet 00 daily with Medical breakfast. Branch glipiZIDE 2021-10 Yes [id number] 20mg Take 2 [facility] nivers XL 10 mg 24 2-30 tablets by it y of hr tablet 00:00: mouth [place] 00 daily with Medical breakfast. Branch metformin 2021-10 Yes [id number] 750mg Take 1 [facility] ER 750 mg 2-30 tablet by ity o f 24 hr 00:00: mouth [place] tablet 00 daily with Medical breakfast. Branch glipiZIDE 2021-10 Yes [id number] 20mg Take 2 [facility] nivers XL 10 mg 24 2-30 tablets by it y of hr tablet 00:00: mouth [place] 00 daily with Medical breakfast. [facility] metformin 2021-10 Yes [id number] 750mg Take 1 [facility] ER 750 mg 2-30 tablet by ity o f 24 hr 00:00: mouth [place] tablet 00 daily with Medical breakfast. Branch glipiZIDE 2021-10 Yes [id number] 20mg Take 2 [facility] nivers XL 10 mg 24 2-30 tablets by it y of hr tablet 00:00: mouth [place] 00 daily with Medical breakfast. Branch metformin 2021-10 Yes [id number] 750mg Take 1 [facility] ER 750 mg 2-30 tablet by ity o f 24 hr 00:00: mouth [place] tablet 00 daily with Medical breakfast. Branch glipiZIDE 2021-10 Yes [id number] 20mg Take 2 [facility] nivers XL 10 mg 24 2-30 tablets by it y of hr tablet 00:00: mouth [place] 00 daily with Medical breakfast. Branch metformin 2021-10 Yes [id number] 750mg Take 1 [facility] ER 750 mg 2-30 tablet by ity o f 24 hr 00:00: mouth [place] tablet 00 daily with Medical breakfast. Branch glipiZIDE 2021-10 Yes [id number] 20mg Take 2 [facility] nivers XL 10 mg 24 2-30 tablets by it y of hr tablet 00:00: mouth [place] 00 daily with Medical breakfast. [place] metformin 2021-10 Yes [id number] 750mg Take 1 [facility] ER 750 mg 2-30 tablet by ity o f 24 hr 00:00: mouth [place] tablet 00 daily with Medical breakfast. [place] glipiZIDE 2021-10 Yes [id number] 20mg Take 2 [facility] nivers XL 10 mg 24 2-30 tablets by it y of hr tablet 00:00: mouth [place] 00 daily with Medical breakfast. [place] metformin 2021-10 Yes [id number] 750mg Take 1 [facility] ER 750 mg 2-30 tablet by ity o f 24 hr 00:00: mouth [place] tablet 00 daily with Medical breakfast. [place] glipiZIDE 2021-10 Yes [id number] 20mg Take 2 [facility] nivers XL 10 mg 24 2-30 tablets by it y of hr tablet 00:00: mouth [place] 00 daily with Medical breakfast. [place] metformin 2021-10 Yes [id number] 750mg Take 1 [facility] ER 750 mg 2-30 tablet by ity o f 24 hr 00:00: mouth [place] tablet 00 daily with Medical breakfast. Branch glipiZIDE 2021-10 Yes [id number] 20mg Take 2 [facility] nivers XL 10 mg 24 2-30 tablets by it y of hr tablet 00:00: mouth [place] 00 daily with Medical breakfast. [place] metformin 2021-10 Yes [id number] 750mg Take 1 [facility] ER 750 mg 2-30 tablet by ity o f 24 hr 00:00: mouth [place] tablet 00 daily with Medical breakfast. [place] glipiZIDE 2021-10 Yes [id number] 20mg Take 2 [facility] nivers XL 10 mg 24 2-30 tablets by it y of hr tablet 00:00: mouth [place] 00 daily with Medical breakfast. [place] metformin 2021-10 Yes [id number] 750mg Take 1 [facility] ER 750 mg 2-30 tablet by ity o f 24 hr 00:00: mouth [place] tablet 00 daily with Medical breakfast. [place] glipiZIDE 2021-10 Yes [id number] 20mg Take 2 [facility] nivers XL 10 mg 24 2-30 tablets by it y of hr tablet 00:00: mouth [place] 00 daily with Medical breakfast. [place] metformin 2021-10 Yes [id number] 750mg Take 1 [facility] ER 750 mg 2-30 tablet by ity o f 24 hr 00:00: mouth [place] tablet 00 daily with Medical breakfast. [place] glipiZIDE 2021-10 Yes [id number] 20mg Take 2 [facility] nivers XL 10 mg 24 2-30 tablets by it y of hr tablet 00:00: mouth [place] 00 daily with Medical breakfast. [place] metformin 2021-10 Yes [id number] 750mg Take 1 [facility] ER 750 mg 2-30 tablet by ity o f 24 hr 00:00: mouth [place] tablet 00 daily with Medical breakfast. [place] metformin 2021-10 Yes [id number] 750mg Take 1 [facility] ER 750 mg 2-30 tablet by ity o f 24 hr 00:00: mouth [place] tablet 00 daily with Medical breakfast. [place] metformin 2021-10 Yes [id number] 750mg Take 1 [facility] ER 750 mg 2-30 tablet by ity o f 24 hr 00:00: mouth [place] tablet 00 daily with Medical breakfast. [place] metformin 2021-10 Yes [id number] 750mg Take 1 [facility] ER 750 mg 2-30 tablet by ity o f 24 hr 00:00: mouth [place] tablet 00 daily with Medical breakfast. [place] metformin 2021-10 Yes [id number] 750mg Take 1 [facility] ER 750 mg 2-30 tablet by ity o f 24 hr 00:00: mouth [place] tablet 00 daily with Medical breakfast. [place] metformin 2021-10 Yes [id number] 750mg Take 1 [facility] ER 750 mg 2-30 tablet by ity o f 24 hr 00:00: mouth [place] tablet 00 daily with Medical breakfast. [place] metformin 2021-10 Yes [id number] 750mg Take 1 [facility] ER 750 mg 2-30 tablet by ity o f 24 hr 00:00: mouth [place] tablet 00 daily with Medical breakfast. [facility] metformin 2021-10 Yes [id number] 750mg Take 1 [facility] ER 750 mg 2-30 tablet by ity o f 24 hr 00:00: mouth [place] tablet 00 daily with Medical breakfast. [facility] metformin 2021-10 Yes [id number] 750mg Take 1 [facility] ER 750 mg 2-30 tablet by ity o f 24 hr 00:00: mouth [place] tablet 00 daily with Medical breakfast. [facility] metformin 2021-10 Yes [id number] 750mg Take 1 [facility] ER 750 mg 2-30 tablet by ity o f 24 hr 00:00: mouth [place] tablet 00 daily with Medical breakfast. [facility] metformin 2021-10 Yes [id number] 750mg Take 1 [facility] ER 750 mg 2-30 tablet by ity o f 24 hr 00:00: mouth [place] tablet 00 daily with Medical breakfast. [facility] metformin 2021-10 Yes [id number] 750mg Take 1 [facility] ER 750 mg 2-30 tablet by ity o f 24 hr 00:00: mouth [place] tablet 00 daily with Medical breakfast. [facility] metformin 2021-10 Yes [id number] 750mg Take 1 [facility] ER 750 mg 2-30 tablet by ity o f 24 hr 00:00: mouth [place] tablet 00 daily with Medical breakfast. [facility] metformin 2021-10 Yes [id number] 750mg Take 1 [facility] ER 750 mg 2-30 tablet by ity o f 24 hr 00:00: mouth [place] tablet 00 daily with Medical breakfast. [facility] metformin 2021-10 Yes [id number] 750mg Take 1 [facility] ER 750 mg 2-30 tablet by ity o f 24 hr 00:00: mouth [place] tablet 00 daily with Medical breakfast. [facility] metformin 2021-10 Yes [id number] 750mg Take 1 [facility] ER 750 mg 2-30 tablet by ity o f 24 hr 00:00: mouth [place] tablet 00 daily with Medical breakfast. [facility] metformin 2021-10 Yes [id number] 750mg Take 1 [facility] ER 750 mg 2-30 tablet by ity o f 24 hr 00:00: mouth [place] tablet 00 daily with Medical breakfast. [place] glipiZIDE 2021-103- No [id number] 20mg Take 2 [facility] XL 10 mg 24 2-30 07-14 tablets by i ty of hr tablet 00:00: 00:00 mouth [place] 00 :00 daily with Medical breakfast. Branch glipiZIDE 2021-10- No [id number] 20mg Take 2 [facility] XL 10 mg 24 2-30 07-14 tablets by i ty of hr tablet 00:00: 00:00 mouth [place] 00 :00 daily with Medical breakfast. Branch LISINOPRIL 2021-10 Yes [id number] TAKE 1 [facility] 2.5 mg 0-13 TABLET BY ity of tablet 00:00: MOUTH [place] 00 EVERY DAY Medical Branch LISINOPRIL 2021-10 Yes [id number] TAKE 1 [facility] 2.5 mg 0-13 TABLET BY ity of tablet 00:00: MOUTH [place] 00 EVERY DAY Medical Branch LISINOPRIL 2021-10 Yes [id number] TAKE 1 [facility] 2.5 mg 0-13 TABLET BY ity of tablet 00:00: MOUTH [place] 00 EVERY DAY Medical Branch LISINOPRIL 2021-10 Yes [id number] TAKE 1 [facility] 2.5 mg 0-13 TABLET BY ity of tablet 00:00: MOUTH [place] 00 EVERY DAY Medical Branch LISINOPRIL 2021-10 Yes [id number] TAKE 1 [facility] 2.5 mg 0-13 TABLET BY ity of tablet 00:00: MOUTH [place] 00 EVERY DAY Medical Branch LISINOPRIL 2021-10 Yes [id number] TAKE 1 [facility] 2.5 mg 0-13 TABLET BY ity of tablet 00:00: MOUTH [place] 00 EVERY DAY Medical Branch LISINOPRIL 2021-10 Yes [id number] TAKE 1 [facility] 2.5 mg 0-13 TABLET BY ity of tablet 00:00: MOUTH [place] 00 EVERY DAY Medical Branch LISINOPRIL 2021-10 Yes [id number] TAKE 1 [facility] 2.5 mg 0-13 TABLET BY ity of tablet 00:00: MOUTH [place] 00 EVERY DAY Medical Branch LISINOPRIL 2021-10- No [id number] TAKE 1 [facility] 2.5 mg 0-13 01-10 TABLET BY ity of tablet 00:00: 00:00 MOUTH [place] 00 :00 EVERY DAY Medical Branch LISINOPRIL 2021-2022- No [id number] TAKE 1 [facility] 2.5 mg 0-13 01-10 TABLET BY ity of tablet 00:00: 00:00 MOUTH [place] 00 :00 EVERY DAY Medical Branch LISINOPRIL 2021-2022- No [id number] TAKE 1 [facility] 2.5 mg 0-13 01-10 TABLET BY ity of tablet 00:00: 00:00 MOUTH [place] 00 :00 EVERY DAY Medical Branch rosuvastati 2021-0 Yes [id number] 20mg Take 1 [facility] n (CRESTOR) 9-27 tablet by ity of 20 mg 00:00: mouth at [place] tablet 00 bedtime. Medical Branch ezetimibe 2021-0 Yes [id number] 10mg Take 1 [facility] nivers 10 mg 9-27 tablet by ity of tablet 00:00: mouth in [place] 00 the Medical morning. Branch rosuvastati 2021-0 Yes [id number] 20mg Take 1 [facility] n (CRESTOR) 9-27 tablet by ity of 20 mg 00:00: mouth at [place] tablet 00 bedtime. Medical Branch ezetimibe 0 Yes [id number] 10mg Take 1 [facility] nivers 10 mg 9-27 tablet by ity of tablet 00:00: mouth in [place] 00 the Medical morning. Branch rosuvastati 2021-0 Yes [id number] 20mg Take 1 [facility] n (CRESTOR) 9-27 tablet by ity of 20 mg 00:00: mouth at [place] tablet 00 bedtime. Medical Branch ezetimibe 0 Yes [id number] 10mg Take 1 [facility] nivers 10 mg 9-27 tablet by ity of tablet 00:00: mouth in [place] 00 the Medical morning. Branch rosuvastati 2021-0 Yes [id number] 20mg Take 1 [facility] n (CRESTOR) 9-27 tablet by ity of 20 mg 00:00: mouth at [place] tablet 00 bedtime. Medical Branch ezetimibe 2021-0 Yes [id number] 10mg Take 1 [facility] nivers 10 mg 9-27 tablet by ity of tablet 00:00: mouth in [place] 00 the Medical morning. Branch rosuvastati 2021-0 Yes [id number] 20mg Take 1 [facility] n (CRESTOR) 9-27 tablet by ity of 20 mg 00:00: mouth at [place] tablet 00 bedtime. Medical Branch ezetimibe 2021-0 Yes [id number] 10mg Take 1 [facility] nivers 10 mg 9-27 tablet by ity of tablet 00:00: mouth in [place] 00 the Medical morning. Branch rosuvastati 2021-0 Yes [id number] 20mg Take 1 [facility] n (CRESTOR) 9-27 tablet by ity of 20 mg 00:00: mouth at [place] tablet 00 bedtime. Medical Branch ezetimibe 2021-0 Yes [id number] 10mg Take 1 [facility] nivers 10 mg 9-27 tablet by ity of tablet 00:00: mouth in [place] 00 the Medical morning. Branch rosuvastati 2021-0 Yes [id number] 20mg Take 1 [facility] n (CRESTOR) 9-27 tablet by ity of 20 mg 00:00: mouth at [place] tablet 00 bedtime. Medical Branch ezetimibe 0 Yes [id number] 10mg Take 1 [facility] nivers 10 mg 9-27 tablet by ity of tablet 00:00: mouth in [place] 00 the Medical morning. Branch rosuvastati 0 Yes [id number] 20mg Take 1 [facility] n (CRESTOR) 9-27 tablet by ity of 20 mg 00:00: mouth at [place] tablet 00 bedtime. Medical Branch ezetimibe 0 Yes [id number] 10mg Take 1 [facility] nivers 10 mg 9-27 tablet by ity of tablet 00:00: mouth in [place] 00 the Medical morning. Branch rosuvastati 0 Yes [id number] 20mg Take 1 [facility] n (CRESTOR) 9-27 tablet by ity of 20 mg 00:00: mouth at [place] tablet 00 bedtime. Medical Branch ezetimibe 0 Yes [id number] 10mg Take 1 [facility] nivers 10 mg 9-27 tablet by ity of tablet 00:00: mouth in [place] 00 the Medical morning. Branch rosuvastati 2021-0 Yes [id number] 20mg Take 1 [facility] n (CRESTOR) 9-27 tablet by ity of 20 mg 00:00: mouth at [place] tablet 00 bedtime. Medical Branch ezetimibe 2021-0 Yes [id number] 10mg Take 1 [facility] nivers 10 mg 9-27 tablet by ity of tablet 00:00: mouth in [place] 00 the Medical morning. Branch rosuvastati 2021-0 Yes [id number] 20mg Take 1 [facility] n (CRESTOR) 9-27 tablet by ity of 20 mg 00:00: mouth at [place] tablet 00 bedtime. Medical Branch ezetimibe 2021-0 Yes [id number] 10mg Take 1 [facility] nivers 10 mg 9-27 tablet by ity of tablet 00:00: mouth in [place] 00 the Medical morning. Branch rosuvastati 2021-0 Yes [id number] 20mg Take 1 [facility] n (CRESTOR) 9-27 tablet by ity of 20 mg 00:00: mouth at [place] tablet 00 bedtime. Medical Branch ezetimibe 2021-0 Yes [id number] 10mg Take 1 [facility] nivers 10 mg 9-27 tablet by ity of tablet 00:00: mouth in [place] 00 the Medical morning. Branch rosuvastati 2021-0 Yes [id number] 20mg Take 1 [facility] n (CRESTOR) 9-27 tablet by ity of 20 mg 00:00: mouth at [place] tablet 00 bedtime. Medical Branch ezetimibe 2021-0 Yes [id number] 10mg Take 1 [facility] nivers 10 mg 9-27 tablet by ity of tablet 00:00: mouth in [place] 00 the Medical morning. Branch rosuvastati 2021-0 Yes [id number] 20mg Take 1 [facility] n (CRESTOR) 9-27 tablet by ity of 20 mg 00:00: mouth at [place] tablet 00 bedtime. Medical Branch ezetimibe 2021-0 Yes [id number] 10mg Take 1 [facility] nivers 10 mg 9-27 tablet by ity of tablet 00:00: mouth in [place] 00 the Medical morning. Branch ezetimibe 2021-0 Yes [id number] 10mg Take 1 [facility] nivers 10 mg 9-27 tablet by ity of tablet 00:00: mouth in [place] 00 the Medical morning. Branch ezetimibe 2021-0 Yes [id number] 10mg Take 1 [facility] nivers 10 mg 9-27 tablet by ity of tablet 00:00: mouth in [place] 00 the Medical morning. Branch ezetimibe 2-0 Yes [id number] 10mg Take 1 [facility] nivers 10 mg 9-27 tablet by ity of tablet 00:00: mouth in [place] 00 the Medical morning. Branch ezetimibe 2-0 2023- No [id number] 10mg Take 1 [facility] 10 mg 9-27 05-22 tablet by ity of tablet 00:00: 00:00 mouth in [place] 00 :00 the Medical morning. Branch rosuvastati 2022- No [id number] 20mg Take 1 [facility] n (CRESTOR) 9-27 04-03 tablet by it y of 20 mg 00:00: 00:00 mouth at [place] tablet 00 :00 bedtime. Medical Branch icosapent 2021- No [id number] 2g Take 2 [facility] ethyL 9-14 10-15 capsules ity of (VASCEPA) 1 00:00: 04:59 by mouth [place] gram 00 :00 in the Medical capsule morning Branch and 2 capsules in the evening. Do all this for 30 days. icosapent 2021- No [id number] 2g Take 2 [facility] ethyL 9-14 10-15 capsules ity of (VASCEPA) 1 00:00: 04:59 by mouth [place] gram 00 :00 in the Medical capsule morning Branch and 2 capsules in the evening. Do all this for 30 days. icosapent 2021- No [id number] 2g Take 2 [facility] ethyL 9-14 10-15 capsules ity of (VASCEPA) 1 00:00: 04:59 by mouth [place] gram 00 :00 in the Medical capsule morning Branch and 2 capsules in the evening. Do all this for 30 days. icosapent 2021- No [id number] 2g Take 2 [facility] ethyL 9-14 10-15 capsules ity of (VASCEPA) 1 00:00: 04:59 by mouth [place] gram 00 :00 in the Medical capsule morning Branch and 2 capsules in the evening. Do all this for 30 days. icosapent 2021- No [id number] 2g Take 2 [facility] ethyL 9-14 10-15 capsules ity of (VASCEPA) 1 00:00: 04:59 by mouth [place] gram 00 :00 in the Medical capsule morning Branch and 2 capsules in the evening. Do all this for 30 days. semaglutide Yes [id number] .5mg inject 0.5 [facility] (OZEMPIC) 9-12 mg under ity of 0.25 mg or 00:00: the skin [place] as 0.5 mg(2 00 weekly. Medical mg/1.5 mL) Start 0.25 Bra [facility] PnIj mg weekly for 4 weeks, then 0.5 mg thereafter glipiZIDE 2021-0 Yes [id number] 10mg Take 1 U nivers XL 10 mg 24 9-12 tablet by ity of hr tablet 00:00: mouth [place] 00 daily with Medical breakfast. Branch metformin 2021-0 Yes [id number] 750mg Take 1 [facility] ER 750 mg 9-12 tablet by ity o f 24 hr 00:00: mouth [place] tablet 00 daily with Medical breakfast. Branch semaglutide 2021-0 Yes [id number] .5mg inject 0.5 [facility] (OZEMPIC) 9-12 mg under ity of 0.25 mg or 00:00: the [place] 0.5 mg(2 00 weekly. Medical mg/1.5 mL) Start 0.25 Bra nch PnIj mg weekly for 4 weeks, then 0.5 mg thereafter glipiZIDE 2021-0 Yes [id number] 10mg Take 1 U nivers XL 10 mg 24 9-12 tablet by ity of hr tablet 00:00: mouth [place] 00 daily with Medical breakfast. Branch metformin 2021-0 Yes [id number] 750mg Take 1 [facility] ER 750 mg 9-12 tablet by ity o f 24 hr 00:00: mouth [place] tablet 00 daily with Medical breakfast. Branch semaglutide 2021-0 Yes [id number] .5mg inject 0.5 [facility] (OZEMPIC) 9-12 mg under ity of 0.25 mg or 00:00: the [place] 0.5 mg(2 00 weekly. Medical mg/1.5 mL) Start 0.25 Bra nch PnIj mg weekly for 4 weeks, then 0.5 mg thereafter glipiZIDE 2021-0 Yes [id number] 10mg Take 1 U nivers XL 10 mg 24 9-12 tablet by ity of hr tablet 00:00: mouth [place] 00 daily with Medical breakfast. Branch metformin 2021-0 Yes [id number] 750mg Take 1 [facility] ER 750 mg 9-12 tablet by ity o f 24 hr 00:00: mouth [place] tablet 00 daily with Medical breakfast. Branch semaglutide 2021-0 Yes [id number] .5mg inject 0.5 [facility] (OZEMPIC) 9-12 mg under ity of 0.25 mg or 00:00: the [place] 0.5 mg(2 00 weekly. Medical mg/1.5 mL) Start 0.25 Bra nch PnIj mg weekly for 4 weeks, then 0.5 mg thereafter glipiZIDE 2021-0 Yes [id number] 10mg Take 1 [facility] nivers XL 10 mg 24 9-12 tablet by ity of hr tablet 00:00: mouth [place] 00 daily with Medical breakfast. Branch metformin 2021-0 Yes [id number] 750mg Take 1 [facility] ER 750 mg 9-12 tablet by ity o f 24 hr 00:00: mouth [place] tablet 00 daily with Medical breakfast. Branch semaglutide 2021-0 Yes [id number] .[id number] inject 0.5 [facility] (OZEMPIC) 9-12 mg under ity of 0.25 mg or 00:00: the [place] 0.5 mg(2 00 weekly. Medical mg/1.5 mL) Start 0.25 Bra nch PnIj mg weekly for 4 weeks, then 0.5 mg thereafter glipiZIDE 2021-0 Yes [id number] 10mg Take 1 [facility] nivers XL 10 mg 24 9-12 tablet by ity of hr tablet 00:00: mouth [place] 00 daily with Medical breakfast. Branch metformin 2021-0 Yes [id number] 750mg Take 1 [facility] ER 750 mg 9-12 tablet by ity o f 24 hr 00:00: mouth [place] tablet 00 daily with Medical breakfast. Branch semaglutide 2021-0 Yes [id number] .5mg inject 0.5 [facility] (OZEMPIC) 9-12 mg under ity of 0.25 mg or 00:00: the [place] 0.5 mg(2 00 weekly. Medical mg/1.5 mL) Start 0.25 Bra nch PnIj mg weekly for 4 weeks, then 0.5 mg thereafter glipiZIDE 2021-0 Yes [id number] 10mg Take 1 U nivers XL 10 mg 24 9-12 tablet by ity of hr tablet 00:00: mouth [place] 00 daily with Medical breakfast. Branch metformin 2021-0 Yes [id number] 750mg Take 1 [facility] ER 750 mg 9-12 tablet by ity o f 24 hr 00:00: mouth [place] tablet 00 daily with Medical breakfast. Branch semaglutide 2021-0 Yes [id number] .5mg inject 0.5 [facility] (OZEMPIC) 9-12 mg under ity of 0.25 mg or 00:00: the [place] 0.5 mg(2 00 weekly. Medical mg/1.5 mL) Start 0.25 Bra nch PnIj mg weekly for 4 weeks, then 0.5 mg thereafter glipiZIDE 2021-0 Yes [id number] 10mg Take 1 U nivers XL 10 mg 24 9-12 tablet by ity of hr tablet 00:00: mouth [place] 00 daily with Medical breakfast. Branch metformin 2021-0 Yes [id number] 750mg Take 1 [facility] ER 750 mg 9-12 tablet by ity o f 24 hr 00:00: mouth [place] tablet 00 daily with Medical breakfast. Branch semaglutide 2021-0 Yes [id number] .5mg inject 0.5 [facility] (OZEMPIC) 9-12 mg under ity of 0.25 mg or 00:00: the [place] 0.5 mg(2 00 weekly. Medical mg/1.5 mL) Start 0.25 Bra nch PnIj mg weekly for 4 weeks, then 0.5 mg thereafter glipiZIDE 2021-0 Yes [id number] 10mg Take 1 U nivers XL 10 mg 24 9-12 tablet by ity of hr tablet 00:00: mouth [place] 00 daily with Medical breakfast. Branch metformin 2021-0 Yes [id number] 750mg Take 1 [facility] ER 750 mg 9-12 tablet by ity o f 24 hr 00:00: mouth [place] tablet 00 daily with Medical breakfast. Branch semaglutide 2021-0 Yes [id number] .5mg inject 0.5 [facility] (OZEMPIC) 9-12 mg under ity of 0.25 mg or 00:00: the [place] 0.5 mg(2 00 weekly. Medical mg/1.5 mL) Start 0.25 Bra nch PnIj mg weekly for 4 weeks, then 0.5 mg thereafter glipiZIDE 2021-0 Yes [id number] 10mg Take 1 U nivers XL 10 mg 24 9-12 tablet by ity of hr tablet 00:00: mouth [place] 00 daily with Medical breakfast. Branch metformin 2021-0 Yes [id number] 750mg Take 1 [facility] ER 750 mg 9-12 tablet by ity o f 24 hr 00:00: mouth [place] tablet 00 daily with Medical breakfast. Branch semaglutide 2021-0 Yes [id number] .5mg inject 0.5 [facility] (OZEMPIC) 9-12 mg under ity of 0.25 mg or 00:00: the [place] 0.5 mg(2 00 weekly. Medical mg/1.5 mL) Start 0.25 Bra nch PnIj mg weekly for 4 weeks, then 0.5 mg thereafter glipiZIDE 2021-0 Yes [id number] 10mg Take 1 U nivers XL 10 mg 24 9-12 tablet by ity of hr tablet 00:00: mouth [place] 00 daily with Medical breakfast. Branch metformin 2021-0 Yes [id number] 750mg Take 1 [facility] ER 750 mg 9-12 tablet by ity o f 24 hr 00:00: mouth [place] tablet 00 daily with Medical breakfast. Branch semaglutide 2021-0 Yes [id number] .5mg inject 0.5 [facility] (OZEMPIC) 9-12 mg under ity of 0.25 mg or 00:00: the [place] 0.5 mg(2 00 weekly. Medical mg/1.5 mL) Start 0.25 Bra nch PnIj mg weekly for 4 weeks, then 0.5 mg thereafter glipiZIDE 0 Yes [id number] 10mg Take 1 U nivers XL 10 mg 24 9-12 tablet by ity of hr tablet 00:00: mouth [place] 00 daily with Medical breakfast. Branch metformin 2021-0 Yes [id number] 750mg Take 1 [facility] ER 750 mg 9-12 tablet by ity o f 24 hr 00:00: mouth [place] tablet 00 daily with Medical breakfast. Branch semaglutide 2021-0 Yes [id number] .5mg inject 0.5 [facility] (OZEMPIC) 9-12 mg under ity of 0.25 mg or 00:00: the skin [place] 0.5 mg(2 00 weekly. Medical mg/1.5 mL) Start 0.25 Bra nch PnIj mg weekly for 4 weeks, then 0.5 mg thereafter glipiZIDE 2021-0 Yes [id number] 10mg Take 1 [facility] XL 10 mg 24 9-12 tablet by ity of hr tablet 00:00: mouth [place] 00 daily with Medical breakfast. Branch metformin 2021-0 Yes [id number] 750mg Take 1 [facility] ER 750 mg 9-12 tablet by ity o f 24 hr 00:00: mouth [place] tablet 00 daily with Medical breakfast. Branch semaglutide 0 Yes [id number] .5mg inject 0.5 [facility] (OZEMPIC) 9-12 mg under ity of 0.25 mg or 00:00: the skin [place] 0.5 mg(2 00 weekly. Medical mg/1.5 mL) Start 0.25 Bra nch PnIj mg weekly for 4 weeks, then 0.5 mg thereafter glipiZIDE 0 Yes [id number] 10mg Take 1 [facility] XL 10 mg 24 9-12 tablet by ity of hr tablet 00:00: mouth [place] 00 daily with Medical breakfast. Branch metformin 0 Yes [id number] 750mg Take 1 [facility] ER 750 mg 9-12 tablet by ity o f 24 hr 00:00: mouth [place] tablet 00 daily with Medical breakfast. Branch semaglutide Yes [id number] .5mg inject 0.5 [facility] (OZEMPIC) 9-12 mg under ity of 0.25 mg or 00:00: the skin [place] 0.5 mg(2 00 weekly. Medical mg/1.5 mL) Start 0.25 Bra nch PnIj mg weekly for 4 weeks, then 0.5 mg thereafter semaglutide 0 Yes [id number] .5mg inject 0.5 [facility] (OZEMPIC) 9-12 mg under ity of 0.25 mg or 00:00: the [place] 0.5 mg(2 00 weekly. Medical mg/1.5 mL) Start 0.25 Bra nch PnIj mg weekly for 4 weeks, then 0.5 mg thereafter semaglutide 2021-0 Yes [id number] .5mg inject 0.5 [facility] (OZEMPIC) 9-12 mg under ity of 0.25 mg or 00:00: the [place] 0.5 mg(2 00 weekly. Medical mg/1.5 mL) Start 0.25 Bra n[facility] PnIj mg weekly for 4 weeks, then 0.5 mg thereafter semaglutide 2021-0 Yes [id number] .5mg inject 0.5 [facility] (OZEMPIC) 9-12 mg under ity of 0.25 mg or 00:00: [place] 0.5 mg(2 00 weekly. Medical mg/1.5 mL) Start 0.25 [facility] n[facility] PnIj mg weekly for 4 weeks, then 0.5 mg thereafter semaglutide 2022-0 Yes [id number] .5mg inject 0.5 [facility] (OZEMPIC) 9-12 mg under ity of 0.25 mg or 00:00: [place] 0.5 mg(2 00 weekly. Medical mg/1.5 mL) Start 0.25 [facility] n[facility] PnIj mg weekly for 4 weeks, then 0.5 mg thereafter semaglutide 2022-0 Yes [id number] .5mg inject 0.5 [facility] (OZEMPIC) 9-12 mg under ity of 0.25 mg or 00:00: [place] 0.5 mg(2 00 weekly. Medical mg/1.5 mL) Start 0.25 [facility] n[facility] PnIj mg weekly for 4 weeks, then 0.5 mg thereafter semaglutide 2022-0 Yes [id number] .5mg inject 0.5 [facility] (OZEMPIC) 9-12 mg under ity of 0.25 mg or 00:00: [place] 0.5 mg(2 00 weekly. Medical mg/1.5 mL) Start 0.25 [facility] n[facility] PnIj mg weekly for 4 weeks, then 0.5 mg thereafter semaglutide 2022-0 Yes [id number] .5mg inject 0.5 [facility] (OZEMPIC) 9-12 mg under ity of 0.25 mg or 00:00: [place] 0.5 mg(2 00 weekly. Medical mg/1.5 mL) Start 0.25 [facility] n[facility] PnIj mg weekly for 4 weeks, then 0.5 mg thereafter semaglutide 2022-0 Yes [id number] .5mg inject 0.5 [facility] (OZEMPIC) 9-12 mg under ity of 0.25 mg or 00:00: [place] 0.5 mg(2 00 weekly. Medical mg/1.5 mL) Start 0.25 [facility] n[facility] PnIj mg weekly for 4 weeks, then 0.5 mg thereafter semaglutide 2022-0 Yes [id number] .5mg inject 0.5 [facility] (OZEMPIC) 9-12 mg under ity of 0.25 mg or 00:00: [place] 0.5 mg(2 00 weekly. Medical mg/1.5 mL) Start 0.25 Bra n[facility] PnIj mg weekly for 4 weeks, then 0.5 mg thereafter semaglutide 2022- No [id number] .5mg inject 0.5 [facility] (OZEMPIC) 06-20 06-16 mg under ity o f 0.25 mg or 00:00: 00:00 the skin [place] 0.5 mg(2 00 :00 weekly. Medical mg/1.5 mL) Start 0.25 Bra nch PnIj mg weekly for 4 weeks, then 0.5 mg thereafter semaglutide 2022- No [id number] .5mg inject 0.5 [facility] (OZEMPIC) 06-20 06-16 mg under ity o f 0.25 mg or 00:00: 00:00 the skin [place] 0.5 mg(2 00 :00 weekly. Medical mg/1.5 mL) Start 0.25 Bra n[facility] PnIj mg weekly for 4 weeks, then 0.5 mg thereafter glipiZIDE 2021- No [id number] 10mg Take 1 [facility] XL 10 mg 24 06-2030 tablet by it y of hr tablet 00:00: 00:00 mouth [place] 00 :00 daily with Medical breakfast. Branch metformin 2021- No [id number] 750mg Take 1 [facility] ER 750 mg 06-2030 tablet by ity of 24 hr 00:00: 00:00 mouth [place] tablet 00 :00 daily with Medical breakfast. Branch glipiZIDE 2021- No [id number] 10mg Take 1 [facility] XL 10 mg 24 06-2030 tablet by it y of hr tablet 00:00: 00:00 mouth [place] 00 :00 daily with Medical breakfast. Branch metformin 2021- No [id number] 750mg Take 1 [facility] ER 750 mg 06-2030 tablet by ity of 24 hr 00:00: 00:00 mouth [place] tablet 00 :00 daily with Medical breakfast. Branch clobetasoL Yes [id number] Apply to [facility] 0.05 % 8-05 area(s) 2 ity of ointment 00:00: (two) [place] 00 times Medical daily. Branch clobetasoL Yes [id number] Apply to [facility] 0.05 % 8-05 area(s) 2 ity of ointment 00:00: (two) [place] 00 times Medical daily. Branch clobetasoL 2022-0 Yes [id number] Apply to [facility] 0.05 % 8-05 area(s) 2 ity of ointment 00:00: (two) [place] 00 times Medical daily. Branch clobetasoL 2022-0 Yes [id number] Apply to [facility] 0.05 % 8-05 area(s) 2 ity of ointment 00:00: (two) [place] 00 times Medical daily. Branch clobetasoL 2022-0 Yes [id number] Apply to [facility] 0.05 % 8-05 area(s) 2 ity of ointment 00:00: (two) [place] 00 times Medical daily. Branch clobetasoL 2022-0 Yes [id number] Apply to [facility] 0.05 % 8-05 area(s) 2 ity of ointment 00:00: (two) [place] 00 times Medical daily. Branch clobetasoL 2022-0 Yes [id number] Apply to [facility] 0.05 % 8-05 area(s) 2 ity of ointment 00:00: (two) [place] 00 times Medical daily. Branch clobetasoL 2022-0 Yes [id number] Apply to [facility] 0.05 % 8-05 area(s) 2 ity of ointment 00:00: (two) [place] 00 times Medical daily. Branch clobetasoL 2022-0 Yes [id number] Apply to [facility] 0.05 % 8-05 area(s) 2 ity of ointment 00:00: (two) [place] 00 times Medical daily. Branch clobetasoL 2022-0 Yes [id number] Apply to [facility] 0.05 % 8-05 area(s) 2 ity of ointment 00:00: (two) [place] 00 times Medical daily. Branch clobetasoL 2022-0 Yes [id number] Apply to [facility] 0.05 % 8-05 area(s) 2 ity of ointment 00:00: (two) [place] 00 times Medical daily. Branch clobetasoL 2022-0 Yes [id number] Apply to [facility] 0.05 % 8-05 area(s) 2 ity of ointment 00:00: (two) [place] 00 times Medical daily. Branch clobetasoL 2022-0 Yes [id number] Apply to [facility] 0.05 % 8-05 area(s) 2 ity of ointment 00:00: (two) [place] 00 times Medical daily. Branch clobetasoL 2022-0 Yes [id number] Apply to [facility] 0.05 % 8-05 area(s) 2 ity of ointment 00:00: (two) [place] 00 times Medical daily. Branch clobetasoL 2022-0 Yes [id number] Apply to [facility] 0.05 % 8-05 area(s) 2 ity of ointment 00:00: (two) [place] 00 times Medical daily. Branch clobetasoL 2022-0 Yes [id number] Apply to [facility] 0.05 % 8-05 area(s) 2 ity of ointment 00:00: (two) [place] 00 times Medical daily. Branch clobetasoL 2022-0 Yes [id number] Apply to [facility] 0.05 % 8-05 area(s) 2 ity of ointment 00:00: (two) [place] 00 times Medical daily. Branch clobetasoL 2022-0 Yes [id number] Apply to [facility] 0.05 % 8-05 area(s) 2 ity of ointment 00:00: (two) [place] 00 times Medical daily. Branch clobetasoL 2022-0 Yes [id number] Apply to [facility] 0.05 % 8-05 area(s) 2 ity of ointment 00:00: (two) [place] 00 times Medical daily. Branch clobetasoL 2022-0 Yes [id number] Apply to [facility] 0.05 % 8-05 area(s) 2 ity of ointment 00:00: (two) [place] 00 times Medical daily. Branch clobetasoL 2022-0 Yes [id number] Apply to [facility] 0.05 % 8-05 area(s) 2 ity of ointment 00:00: (two) [place] 00 times Medical daily. Branch clobetasoL 2022-0 Yes [id number] Apply to [facility] 0.05 % 8-05 area(s) 2 ity of ointment 00:00: (two) [place] 00 times Medical daily. Branch clobetasoL 2022-0 Yes [id number] Apply to [facility] 0.05 % 8-05 area(s) 2 ity of ointment 00:00: (two) [place] 00 times Medical daily. Branch clobetasoL 2022-0 Yes [id number] Apply to [facility] 0.05 % 8-05 area(s) 2 ity of ointment 00:00: (two) [place] 00 times Medical daily. Branch clobetasoL 2022-0 Yes [id number] Apply to [facility] 0.05 % 8-05 area(s) 2 ity of ointment 00:00: (two) [place] 00 times Medical daily. Branch clobetasoL 2022-0 Yes [id number] Apply to [facility] 0.05 % 8-05 area(s) 2 ity of ointment 00:00: (two) [place] 00 times Medical daily. Branch clobetasoL 2022-0 Yes [id number] Apply to [facility] 0.05 % 8-05 area(s) 2 ity of ointment 00:00: (two) [place] 00 times Medical daily. Branch clobetasoL 2022-0 Yes [id number] Apply to [facility] 0.05 % 8-05 area(s) 2 ity of ointment 00:00: (two) [place] 00 times Medical daily. Branch clobetasoL 2022-0 Yes [id number] Apply to [facility] 0.05 % 8-05 area(s) 2 ity of ointment 00:00: (two) [place] 00 times Medical daily. Branch clobetasoL 2022-0 Yes [id number] Apply to [facility] 0.05 % 8-05 area(s) 2 ity of ointment 00:00: (two) [place] 00 times Medical daily. Branch clobetasoL 2022-0 Yes [id number] Apply to [facility] 0.05 % 8-05 area(s) 2 ity of ointment 00:00: (two) [place] 00 times Medical daily. Branch clobetasoL 2022-0 Yes [id number] Apply to [facility] 0.05 % 8-05 area(s) 2 ity of ointment 00:00: (two) [place] 00 times Medical daily. Branch clobetasoL 2022-0 Yes [id number] Apply to [facility] 0.05 % 8-05 area(s) 2 ity of ointment 00:00: (two) [place] 00 times Medical daily. Branch clobetasoL 2022-0 Yes [id number] Apply to [facility] 0.05 % 8-05 area(s) 2 ity of ointment 00:00: (two) [place] 00 times Medical daily. Branch clobetasoL 2022-0 Yes [id number] Apply to [facility] 0.05 % 8-05 area(s) 2 ity of ointment 00:00: (two) [place] 00 times Medical daily. Branch clobetasoL 2022-0 Yes [id number] Apply to [facility] 0.05 % 8-05 area(s) 2 ity of ointment 00:00: (two) [place] 00 times Medical daily. Branch clobetasoL 2022-0 Yes [id number] Apply to [facility] 0.05 % 8-05 area(s) 2 ity of ointment 00:00: (two) [place] 00 times Medical daily. Branch clobetasoL 2022-0 Yes [id number] Apply to [facility] 0.05 % 8-05 area(s) 2 ity of ointment 00:00: (two) [place] 00 times Medical daily. Branch clobetasoL 2022-0 Yes [id number] Apply to [facility] 0.05 % 8-05 area(s) 2 ity of ointment 00:00: (two) [place] 00 times Medical daily. Branch clobetasoL 2022-0 Yes [id number] Apply to [facility] 0.05 % 8-05 area(s) 2 ity of ointment 00:00: (two) [place] 00 times Medical daily. Branch clobetasoL 2022-0 Yes [id number] Apply to [facility] 0.05 % 8-05 area(s) 2 ity of ointment 00:00: (two) [place] 00 times Medical daily. Branch clobetasoL 2022-0 Yes [id number] Apply to [facility] 0.05 % 8-05 area(s) 2 ity of ointment 00:00: (two) [place] 00 times Medical daily. Branch clobetasoL 2022-0 Yes [id number] Apply to [facility] 0.05 % 8-05 area(s) 2 ity of ointment 00:00: (two) [place] 00 times Medical daily. Branch clobetasoL 2022-0 Yes [id number] Apply to [facility] 0.05 % 8-05 area(s) 2 ity of ointment 00:00: (two) [place] 00 times Medical daily. Branch clobetasoL 2022-0 Yes [id number] Apply to [facility] 0.05 % 8-05 area(s) 2 ity of ointment 00:00: (two) [place] 00 times Medical daily. Branch clobetasoL 2022-0 Yes [id number] Apply to [facility] 0.05 % 8-05 area(s) 2 ity of ointment 00:00: (two) [place] 00 times Medical daily. Branch clobetasoL 2022-0 Yes [id number] Apply to [facility] 0.05 % 8-05 area(s) 2 ity of ointment 00:00: (two) [place] 00 times Medical daily. Branch clobetasoL 2022-0 Yes [id number] Apply to [facility] 0.05 % 8-05 area(s) 2 ity of ointment 00:00: (two) [place] 00 times Medical daily. Branch clobetasoL 2022-0 Yes [id number] Apply to [facility] 0.05 % 8-05 area(s) 2 ity of ointment 00:00: (two) [place] 00 times Medical daily. Branch clobetasoL 2022-0 Yes [id number] Apply to [facility] 0.05 % 8-05 area(s) 2 ity of ointment 00:00: (two) [place] 00 times Medical daily. Branch clobetasoL 2022-0 Yes [id number] Apply to [facility] 0.05 % 8-05 area(s) 2 ity of ointment 00:00: (two) [place] 00 times Medical daily. Branch clobetasoL 2022-0 Yes [id number] Apply to [facility] 0.05 % 8-05 area(s) 2 ity of ointment 00:00: (two) [place] 00 times Medical daily. Branch clobetasoL 2022-0 Yes [id number] Apply to [facility] 0.05 % 8-05 area(s) 2 ity of ointment 00:00: (two) [place] 00 times Medical daily. Branch clobetasoL 2022-0 Yes [id number] Apply to [facility] 0.05 % 8-05 area(s) 2 ity of ointment 00:00: (two) [place] 00 times Medical daily. Branch lisinopriL 2022-0 Yes [id number] 2.5mg Take 1 [facility] 2.5 mg 6-27 tablet by ity of tablet 00:00: mouth [place] 00 daily. Medical Branch lisinopriL 2021-0 Yes [id number] 2.5mg Take 1 [facility] 2.5 mg 6-27 tablet by ity of tablet 00:00: mouth [place] 00 daily. Medical Branch lisinopriL 2021-0 Yes [id number] 2.5mg Take 1 [facility] 2.5 mg 6-27 tablet by ity of tablet 00:00: mouth [place] 00 daily. Medical Branch lisinopriL 2021-0 Yes [id number] 2.5mg Take 1 [facility] 2.5 mg 6-27 tablet by ity of tablet 00:00: mouth [place] 00 daily. Medical Branch lisinopriL 2021-0 Yes [id number] 2.5mg Take 1 [facility] 2.5 mg 6-27 tablet by ity of tablet 00:00: mouth [place] 00 daily. Medical Branch lisinopriL 2021-0 2022- No [id number] 2.5mg Take 1 [facility] 2.5 mg 6-27 [...] 00:00: MOUTH [place] NIGHTLY Medical Branch Cholecalcif 2022-0 Yes 2{capsu [...] tablet 00:00: MOUTH NIGHTLY Medical Branch Cholecalcif 2022-0 Yes 2{capsu [...] tablet 00:00: MOUTH NIGHTLY Medical Branch Cholecalcif 2-0 Yes 2{capsu [...] MOUTH [place] 00 NIGHTLY Medical Branch Cholecalcif Yes 2{capsu Take 2 U nivers ricardo, 5-29 le} capsules ity of Vitamin D3, 00:00: by mouth [place] 50 mcg 00 daily. Medical (2,000 Branch unit) capsule guanFACINE Yes TAKE 1 [facility] rs ER 3 mg 5-29 TABLET BY ity of tablet 00:00: MOUTH [place] 00 NIGHTLY Medical Branch ROSUVASTATI Yes [id number] 20mg TAKE 1 [facility] N 20 mg 5-26 TABLET BY ity of tablet 00:00: MOUTH AT [place] 00 BEDTIME. Medical MUST BE Branch SEEN FOR FURTHER REFILLS ROSUVASTATI Yes [id number] 20mg TAKE 1 [facility] N 20 mg 5-26 TABLET BY ity of tablet 00:00: MOUTH AT [place] [address] BEDTIME. Medical MUST BE Branch SEEN FOR FURTHER REFILLS ROSUVASTATI 2021- No [id number] 20mg TAKE 1 [facility] N 20 mg 5-26 09-27 TABLET BY ity of tablet 00:00: 00:00 MOUTH AT [place] 00 :00 BEDTIME. Medical MUST BE Branch SEEN FOR FURTHER REFILLS ROSUVASTATI 0 2021- No [id number] 20mg TAKE 1 [facility] N 20 mg 5-26 09-27 TABLET BY ity of tablet 00:00: 00:00 MOUTH AT [place] 00 :00 BEDTIME. Medical MUST BE Branch SEEN FOR FURTHER REFILLS ondansetron Yes TAKE 1 [facility] ers 4 mg tablet 5-02 TABLET BY ity of 00:00: MOUTH [place] [address] EVERY 12 Medical HOURS Branch NEEDED famotidine Yes TAKE 1 [facility] rs 20 mg 5-02 TABLET BY ity of tablet 00:00: MOUTH [place] 00 EVERY 12 Medical HOURS FOR Branch 10 DAYS ondansetron Yes TAKE 1 [facility] ers 4 mg tablet 5-02 TABLET BY ity of 00:00: MOUTH [place] [address] EVERY 12 Medical HOURS Branch NEEDED famotidine [...] 12 Medical HOURS FOR Branch 10 DAYS famotidine 2021-0 Yes TAKE 1 [facility] rs 20 mg 5-02 TABLET BY ity of tablet 00:00: MOUTH [place] 00 EVERY 12 Medical HOURS FOR Branch 10 DAYS famotidine 2021-0 Yes TAKE 1 Un[facility] rs 20 mg 5-02 TABLET BY ity of tablet 00:00: MOUTH [place] 00 EVERY 12 Medical HOURS FOR Branch 10 DAYS famotidine 2021-0 Yes TAKE 1 [facility] rs 20 mg 5-02 TABLET BY ity of tablet 00:00: MOUTH [place] 00 EVERY 12 Medical HOURS FOR Branch 10 DAYS famotidine 2022-0 Yes TAKE 1 [facility] rs 20 mg 5-02 TABLET BY ity of tablet 00:00: MOUTH [place] 00 EVERY 12 Medical HOURS FOR Branch 10 DAYS famotidine 2021-0 Yes TAKE 1 [facility] rs 20 mg 5-02 TABLET BY ity of tablet 00:00: MOUTH [place] 00 EVERY 12 Medical HOURS FOR Branch 10 DAYS famotidine 2021-0 Yes TAKE 1 Unive rs [...] tablet 5-02 TABLET BY ity of 00:00: [facility] 00 EVERY 12 Medical HOURS Branch NEEDED famotidine 2021-0 Yes TAKE 1 Unive rs 20 mg 5-02 TABLET BY ity of tablet 00:00: [facility] 00 EVERY 12 Medical HOURS FOR Branch 10 DAYS ondansetron 2021-0 Yes TAKE 1 Univ ers 4 mg tablet 5-02 TABLET BY ity of 00:00: MOUTH 00 EVERY 12 Medical HOURS Branch NEEDED famotidine 2021-0 Yes TAKE 1 Unive rs 20 mg 5-02 TABLET BY ity of tablet 00:00: [facility] 00 EVERY 12 Medical HOURS FOR Branch 10 DAYS ondansetron 2021-0 2022- No TAKE 1 Uni vers 4 mg tablet 5-02 10-10 TABLET BY it y of 00:00: 00:00 MOUTH [place] 00 :00 EVERY 12 Medical HOURS Branch NEEDED ondansetron 2-0 2022- No TAKE 1 Uni vers 4 mg tablet 5-02 10-10 TABLET BY it y of 00:00: 00:00 MOUTH [place] 00 :00 EVERY 12 Medical HOURS Branch NEEDED ondansetron 2-0 2022- No TAKE 1 [facility] vers 4 mg tablet 5-02 10-10 TABLET BY it y of 00:00: 00:00 MOUTH [place] 00 :00 EVERY 12 Medical HOURS Branch NEEDED OXcarbazepi [...] by mouth ity of tablet 00:00: at [place] [address] bedtime. Medical Branch ARIPiprazol 2022-0 Yes 5mg Take 5 mg U nivers e 5 mg 4-12 by mouth ity of tablet 00:00: at [place] [address] bedtime. Medical Branch ARIPiprazol 2022-0 Yes 5mg Take 5 mg U nivers e 5 mg 4-12 by mouth ity of tablet 00:00: at [place] [address] bedtime. Medical Branch ARIPiprazol 2022-0 Yes 5mg Take 5 mg U nivers e 5 mg 4-12 by mouth ity of tablet 00:00: at [place] [address] bedtime. Medical Branch ARIPiprazol 2022-0 Yes 5mg Take 5 mg U nivers e 5 mg 4-12 by mouth ity of tablet 00:00: at [place] [address] bedtime. Medical Branch ARIPiprazol 2022-0 Yes 5mg Take 5 mg U nivers e 5 mg 4-12 by mouth ity of tablet 00:00: at [place] [address] bedtime. Medical Branch ARIPiprazol 2022-0 Yes 5mg Take 5 mg U nivers e 5 mg 4-12 by mouth ity of tablet 00:00: at [place] [address] bedtime. Medical Branch ARIPiprazol 2022-0 Yes 5mg Take 5 mg U nivers e 5 mg 4-12 by mouth ity of tablet 00:00: at [place] [address] bedtime. Medical Branch ARIPiprazol 2022-0 Yes 5mg Take 5 mg U nivers e 5 mg 4-12 by mouth ity of tablet 00:00: at [place] [address] bedtime. Medical Branch ARIPiprazol 2022-0 Yes 5mg Take 5 mg U nivers e 5 mg 4-12 by mouth ity of tablet 00:00: at [place] [address] bedtime. Medical Branch ARIPiprazol 2022-0 Yes 5mg Take 5 mg U nivers e 5 mg 4-12 by mouth ity of tablet 00:00: at [place] [address] bedtime. Medical Branch ARIPiprazol 2022-0 Yes 5mg Take 5 mg U nivers e 5 mg 4-12 by mouth ity of tablet 00:00: at [place] [address] bedtime. Medical Branch ARIPiprazol 2022-0 Yes 5mg Take 5 mg U nivers e 5 mg 4-12 by mouth ity of tablet 00:00: at [place] [address] bedtime. Medical Branch ARIPiprazol 2022-0 Yes 5mg Take 5 mg U nivers e 5 mg 4-12 by mouth ity of tablet 00:00: at [place] [address] bedtime. Medical Branch ARIPiprazol 2022-0 Yes 5mg Take 5 mg U nivers e 5 mg 4-12 by mouth ity of tablet 00:00: at [place] [address] bedtime. Medical Branch ARIPiprazol 2022-0 Yes 5mg Take 5 mg U nivers e 5 mg 4-12 by mouth ity of tablet 00:00: at [place] [address] bedtime. Medical Branch ARIPiprazol 2022-0 Yes 5mg Take 5 mg U nivers e 5 mg 4-12 by mouth ity of tablet 00:00: at [place] [address] bedtime. Medical Branch ARIPiprazol 2022-0 Yes 5mg Take 5 mg U nivers e 5 mg 4-12 by mouth ity of tablet 00:00: at [place] [address] bedtime. Medical Branch ARIPiprazol 2022-0 Yes 5mg Take 5 mg U nivers e 5 mg 4-12 by mouth ity of tablet 00:00: at [place] [address] bedtime. Medical Branch ARIPiprazol 2022-0 Yes 5mg Take 5 mg U nivers e 5 mg 4-12 by mouth ity of tablet 00:00: at [place] [address] bedtime. Medical Branch ARIPiprazol 2-0 Yes 5mg Take 5 mg U nivers e 5 mg 4-12 by mouth ity of tablet 00:00: at [place] [address] bedtime. Medical Branch ARIPiprazol 2-0 Yes 5mg Take 5 mg U nivers e 5 mg 4-12 by mouth ity of tablet 00:00: at [place] [address] bedtime. Medical Branch ARIPiprazol 2-0 Yes 5mg Take 5 mg U nivers e 5 mg 4-12 by mouth ity of tablet 00:00: at [place] [address] bedtime. Medical Branch ARIPiprazol 2022-0 Yes 5mg Take 5 mg U nivers e 5 mg 4-12 by mouth ity of tablet 00:00: at [place] [address] bedtime. Medical Branch ARIPiprazol 2022-0 Yes 5mg Take 5 mg U nivers e 5 mg 4-12 by mouth ity of tablet 00:00: at [place] [address] bedtime. Medical Branch ARIPiprazol 2022-0 Yes 5mg Take 5 mg U nivers e 5 mg 4-12 by mouth ity of tablet 00:00: at [place] [address] bedtime. Medical Branch ARIPiprazol 2022-0 Yes 5mg Take 5 mg U nivers e 5 mg 4-12 by mouth ity of tablet 00:00: at [place] [address] bedtime. Medical Branch ARIPiprazol 2022-0 Yes 5mg Take 5 mg U nivers e 5 mg 4-12 by mouth ity of tablet 00:00: at [place] [address] bedtime. Medical Branch ARIPiprazol 2022-0 Yes 5mg Take 5 mg U nivers e 5 mg 4-12 by mouth ity of tablet 00:00: at [place] [address] bedtime. Medical Branch ARIPiprazol 2022-0 Yes 5mg Take 5 mg U nivers e 5 mg 4-12 by mouth ity of tablet 00:00: at [place] [address] bedtime. Medical Branch ARIPiprazol 2022-0 Yes 5mg Take 5 mg U nivers e 5 mg 4-12 by mouth ity of tablet 00:00: at [place] [address] bedtime. Medical Branch ARIPiprazol 2022-0 Yes 5mg Take 5 mg U nivers e 5 mg 4-12 by mouth ity of tablet 00:00: at [place] [address] bedtime. Medical Branch ARIPiprazol 2022-0 Yes 5mg Take 5 mg U nivers e 5 mg 4-12 by mouth ity of tablet 00:00: at [place] [address] bedtime. Medical Branch ARIPiprazol 2022-0 Yes 5mg Take 5 mg U nivers e 5 mg 4-12 by mouth ity of tablet 00:00: at [place] [address] bedtime. Medical Branch ARIPiprazol 2022-0 Yes 5mg Take 5 mg U nivers e 5 mg 4-12 by mouth ity of tablet 00:00: at [place] [address] bedtime. Medical Branch ARIPiprazol 2022-0 Yes 5mg Take 5 mg U nivers e 5 mg 4-12 by mouth ity of tablet 00:00: at [place] [address] bedtime. Medical Branch ARIPiprazol 2022-0 Yes 5mg Take 5 mg U nivers e 5 mg 4-12 by mouth ity of tablet 00:00: at [place] [address] bedtime. Medical Branch ARIPiprazol 2022-0 Yes 5mg Take 5 mg U nivers e 5 mg 4-12 by mouth ity of tablet 00:00: at [place] [address] bedtime. Medical Branch ARIPiprazol 2022-0 Yes 5mg Take 5 mg U nivers e 5 mg 4-12 by mouth ity of tablet 00:00: at [place] [address] bedtime. Medical Branch ARIPiprazol 2-0 Yes 5mg Take 5 mg U nivers e 5 mg 4-12 by mouth ity of tablet 00:00: at [place] [address] bedtime. Medical Branch ARIPiprazol 2022-0 Yes 5mg Take 5 mg U nivers e 5 mg 4-12 by mouth ity of tablet 00:00: at [place] [address] bedtime. Medical Branch ARIPiprazol 2022-0 Yes 5mg Take 5 mg U nivers e 5 mg 4-12 by mouth ity of tablet 00:00: at [place] [address] bedtime. Medical Branch ARIPiprazol 2-0 Yes 5mg Take 5 mg U nivers e 5 mg 4-12 by mouth ity of tablet 00:00: at [place] [address] bedtime. Medical Branch ARIPiprazol 2-0 Yes 5mg Take 5 mg U nivers e 5 mg 4-12 by mouth ity of tablet 00:00: at [place] [address] bedtime. Medical Branch ARIPiprazol 2-0 Yes 5mg Take 5 mg U nivers e 5 mg 4-12 by mouth ity of tablet 00:00: at [place] [address] bedtime. Medical Branch ARIPiprazol 2-0 Yes 5mg Take 5 mg U nivers e 5 mg 4-12 by mouth ity of tablet 00:00: at [place] [address] bedtime. Medical Branch ARIPiprazol 2-0 Yes 5mg Take 5 mg U nivers e 5 mg 4-12 by mouth ity of tablet 00:00: at [place] [address] bedtime. Medical Branch ARIPiprazol 2-0 Yes 5mg Take 5 mg U nivers e 5 mg 4-12 by mouth ity of tablet 00:00: at [place] [address] bedtime. Medical Branch ARIPiprazol 2022-0 Yes 5mg Take 5 mg U nivers e 5 mg 4-12 by mouth ity of tablet 00:00: at [place] [address] bedtime. Medical Branch ARIPiprazol 2022-0 Yes 5mg Take 5 mg U nivers e 5 mg 4-12 by mouth ity of tablet 00:00: at [place] [address] bedtime. Medical Branch ARIPiprazol 2022-0 Yes 5mg Take 5 mg U nivers e 5 mg 4-12 by mouth ity of tablet 00:00: at [place] 00 bedtime. Medical Branch ARIPiprazol 2021-0 Yes 5mg Take 5 mg U nivers e 5 mg 4-12 by mouth ity of tablet 00:00: at [place] 00 bedtime. Medical Branch ARIPiprazol 2021-0 Yes 5mg Take 5 mg U nivers e 5 mg 4-12 by mouth ity of tablet 00:00: at [place] 00 bedtime. [facility] ARIPiprazol 2021-0 Yes 5mg Take 5 mg U nivers e 5 mg 4-12 by mouth ity of tablet 00:00: at [place] 00 bedtime. [facility] ivermectin 2021-0 Yes [id number] 13.5mg Take 4.5 [facility] 3 mg tablet 1-12 tablets by it y of 00:00: mouth 00 weekly. [facility] ivermectin 2021-0 Yes [id number] 13.5mg Take 4.5 [facility] 3 mg tablet 1-12 tablets by it y of 00:00: mouth [place] weekly. [facility] ivermectin 2021-0 Yes [id number] 13.5mg Take 4.5 [facility] 3 mg tablet 1-12 tablets by it y of 00:00: mouth [place] weekly. [facility] ivermectin 2021-0 Yes [id number] 13.5mg Take 4.5 [facility] 3 mg tablet 1-12 tablets by it y of 00:00: mouth weekly. [facility] ivermectin 2021-0 Yes [id number] 13.5mg Take 4.5 [facility] 3 mg tablet 1-12 tablets by it y of 00:00: mouth [place] weekly. [facility] ivermectin 2021-0 Yes [id number] 13.5mg Take 4.5 [facility] 3 mg tablet 1-12 tablets by it y of 00:00: mouth [place] weekly. [facility] ivermectin 2-0 Yes [id number] 13.5mg Take 4.5 [facility] 3 mg tablet 1-12 tablets by it y of 00:00: mouth 00 weekly. [facility] ivermectin 2021-0 Yes [id number] 13.5mg Take 4.5 [facility] 3 mg tablet 1-12 tablets by it y of 00:00: mouth [place] weekly. [facility] ivermectin 2022-0 Yes [id number] 13.5mg Take 4.5 [facility] 3 mg tablet 1-12 tablets by it y of 00:00: mouth [place] 00 weekly. [facility] ivermectin 2-0 Yes [id number] 13.5mg Take 4.5 [facility] 3 mg tablet 1-12 tablets by it y of 00:00: mouth [place] 00 weekly. [facility] ivermectin 2-0 Yes [id number] 13.5mg Take 4.5 [facility] 3 mg tablet 1-12 tablets by it y of 00:00: mouth [place] 00 weekly. [facility] ivermectin 2021-0 Yes [id number] 13.5mg Take 4.5 [facility] 3 mg tablet 1-12 tablets by it y of 00:00: mouth [place] 00 weekly. [facility] ivermectin 2021-0 Yes [id number] 13.5mg Take 4.5 [facility] 3 mg tablet 1-12 tablets by it y of 00:00: mouth [place] 00 weekly. [facility] ivermectin 2021-0 Yes [id number] 13.5mg Take 4.5 [facility] 3 mg tablet 1-12 tablets by it y of 00:00: mouth [place] 00 weekly. [facility] ivermectin 2021-0 Yes [id number] 13.5mg Take 4.5 [facility] 3 mg tablet 1-12 tablets by it y of 00:00: mouth [place] 00 weekly. [facility] ivermectin 2021-0 Yes [id number] 13.5mg Take 4.5 [facility] 3 mg tablet 1-12 tablets by it y of 00:00: mouth [place] 00 weekly. [facility] ivermectin 2-0 Yes [id number] 13.5mg Take 4.5 [facility] 3 mg tablet 1-12 tablets by it y of 00:00: mouth [place] 00 weekly. [facility] ivermectin 2-0 Yes [id number] 13.5mg Take 4.5 [facility] 3 mg tablet 1-12 tablets by it y of 00:00: mouth [place] 00 weekly. [facility] ivermectin 2-0 Yes [id number] 13.5mg Take 4.5 [facility] 3 mg tablet 1-12 tablets by it y of 00:00: mouth [place] 00 weekly. [facility] ivermectin 2-0 Yes [id number] 13.5mg Take 4.5 [facility] 3 mg tablet 1-12 tablets by it y of 00:00: mouth [place] 00 weekly. [facility] ivermectin 2-0 Yes [id number] 13.5mg Take 4.5 [facility] 3 mg tablet 1-12 tablets by it y of 00:00: mouth [place] 00 weekly. [facility] ivermectin 2021-0 Yes [id number] 13.5mg Take 4.5 [facility] 3 mg tablet 1-12 tablets by it y of 00:00: mouth [place] 00 weekly. [facility] ivermectin 2-0 Yes [id number] 13.5mg Take 4.5 [facility] 3 mg tablet 1-12 tablets by it y of 00:00: mouth [place] 00 weekly. [facility] ivermectin 2021-0 Yes [id number] 13.5mg Take 4.5 [facility] 3 mg tablet 1-12 tablets by it y of 00:00: mouth [place] 00 weekly. [facility] ivermectin 2021-0 Yes [id number] 13.5mg Take 4.5 [facility] 3 mg tablet 1-12 tablets by it y of 00:00: mouth [place] 00 weekly. [facility] ivermectin 2021-0 Yes [id number] 13.5mg Take 4.5 [facility] 3 mg tablet 1-12 tablets by it y of 00:00: mouth [place] 00 weekly. [facility] ivermectin 2021-0 Yes [id number] 13.5mg Take 4.5 [facility] 3 mg tablet 1-12 tablets by it y of 00:00: mouth [place] 00 weekly. [facility] ivermectin 2021-0 Yes [id number] 13.5mg Take 4.5 [facility] 3 mg tablet 1-12 tablets by it y of 00:00: mouth [place] 00 weekly. [facility] ivermectin 2-0 Yes [id number] 13.5mg Take 4.5 [facility] 3 mg tablet 1-12 tablets by it y of 00:00: mouth [place] 00 weekly. [facility] ivermectin 2-0 Yes [id number] 13.5mg Take 4.5 [facility] 3 mg tablet 1-12 tablets by it y of 00:00: mouth [place] 00 weekly. [facility] ivermectin 2-0 Yes [id number] 13.5mg Take 4.5 [facility] 3 mg tablet 1-12 tablets by it y of 00:00: mouth [place] 00 weekly. [facility] ivermectin 2-0 Yes [id number] 13.5mg Take 4.5 [facility] 3 mg tablet 1-12 tablets by it y of 00:00: mouth [place] 00 weekly. [facility] ivermectin 2-0 Yes [id number] 13.5mg Take 4.5 [facility] 3 mg tablet 1-12 tablets by it y of 00:00: mouth [place] 00 weekly. [facility] ivermectin 2-0 Yes [id number] 13.5mg Take 4.5 [facility] 3 mg tablet 1-12 tablets by it y of 00:00: mouth [place] 00 weekly. [facility] ivermectin 2-0 Yes [id number] 13.5mg Take 4.5 [facility] 3 mg tablet 1-12 tablets by it y of 00:00: mouth [place] 00 weekly. [facility] ivermectin 2021-0 Yes [id number] 13.5mg Take 4.5 [facility] 3 mg tablet 1-12 tablets by it y of 00:00: mouth [place] 00 weekly. [facility] ivermectin 2021-0 Yes [id number] 13.5mg Take 4.5 [facility] 3 mg tablet 1-12 tablets by it y of 00:00: mouth [place] 00 weekly. [facility] ivermectin 2-0 Yes [id number] 13.5mg Take 4.5 [facility] 3 mg tablet 1-12 tablets by it y of 00:00: mouth [place] 00 weekly. [facility] ivermectin 2-0 Yes [id number] 13.5mg Take 4.5 [facility] 3 mg tablet 1-12 tablets by it y of 00:00: mouth [place] 00 weekly. [facility] ivermectin 2-0 Yes [id number] 13.5mg Take 4.5 [facility] 3 mg tablet 1-12 tablets by it y of 00:00: mouth [place] 00 weekly. [facility] ivermectin 2-0 Yes [id number] 13.5mg Take 4.5 [facility] 3 mg tablet 1-12 tablets by it y of 00:00: mouth [place] 00 weekly. [facility] ivermectin 2-0 Yes [id number] 13.5mg Take 4.5 [facility] 3 mg tablet 1-12 tablets by it y of 00:00: mouth [place] 00 weekly. [facility] ivermectin 2-0 Yes [id number] 13.5mg Take 4.5 [facility] 3 mg tablet 1-12 tablets by it y of 00:00: mouth [place] 00 weekly. [facility] ivermectin 2-0 Yes [id number] 13.5mg Take 4.5 [facility] 3 mg tablet 1-12 tablets by it y of 00:00: mouth [place] 00 weekly. [facility] ivermectin 2021-0 Yes [id number] 13.5mg Take 4.5 [facility] 3 mg tablet 1-12 tablets by it y of 00:00: mouth [place] 00 weekly. [facility] ivermectin 2021-0 Yes [id number] 13.5mg Take 4.5 [facility] 3 mg tablet 1-12 tablets by it y of 00:00: mouth [place] 00 weekly. [facility] ivermectin 2021-0 Yes [id number] 13.5mg Take 4.5 [facility] 3 mg tablet 1-12 tablets by it y of 00:00: mouth [place] 00 weekly. [facility] ivermectin 2021-0 Yes [id number] 13.5mg Take 4.5 [facility] 3 mg tablet 1-12 tablets by it y of 00:00: mouth [place] 00 weekly. [facility] ivermectin 2021-0 Yes [id number] 13.5mg Take 4.5 [facility] 3 mg tablet 1-12 tablets by it y of 00:00: mouth [place] 00 weekly. [facility] ivermectin 2021-0 Yes [id number] 13.5mg Take 4.5 [facility] 3 mg tablet 1-12 tablets by it y of 00:00: mouth [place] 00 weekly. [facility] ivermectin 2021-0 Yes [id number] 13.5mg Take 4.5 [facility] 3 mg tablet 1-12 tablets by it y of 00:00: mouth [place] 00 weekly. [facility] ivermectin 2-0 Yes [id number] 13.5mg Take 4.5 [facility] 3 mg tablet 1-12 tablets by it y of 00:00: mouth [place] 00 weekly. [facility] ivermectin 2021-0 Yes [id number] 13.5mg Take 4.5 [facility] 3 mg tablet 1-12 tablets by it y of 00:00: mouth [place] 00 weekly. [facility] ivermectin 2-0 Yes [id number] 13.5mg Take 4.5 [facility] 3 mg tablet 1-12 tablets by it y of 00:00: mouth [place] 00 weekly. [facility] ivermectin 2021-0 Yes [id number] 13.5mg Take 4.5 [facility] 3 mg tablet 1-12 tablets by it y of 00:00: mouth [place] 00 weekly. [facility] trazodone 2020-10 Yes Take by Unive rs HCl 1-29 mouth. ity of (TRAZODONE 13:30: [place] ORAL) [facility] citalopram 2020-10 Yes 10mg Take 10 mg U nivers 10 mg 1-29 by mouth ity of tablet 13:30: daily. [facility] trazodone 2020-10 Yes Take by Unive rs HCl 1-29 mouth. ity of (TRAZODONE 13:30: [place] ORAL) [facility] citalopram 2020-10 Yes 10mg Take 10 mg U nivers 10 mg 1-29 by mouth ity of tablet 13:30: daily. [facility] trazodone 2020-10 Yes Take by Unive rs HCl 1-29 mouth. ity of (TRAZODONE 13:30: [place] ORAL) [facility] citalopram 2020-10 Yes 10mg Take 10 mg U nivers 10 mg 1-29 by mouth ity of tablet 13:30: daily. [facility] trazodone 2020-10 Yes Take by Unive rs HCl 1-29 mouth. ity of (TRAZODONE 13:30: [place] ORAL) [facility] citalopram 2020-10 Yes 10mg Take 10 mg U nivers 10 mg 1-29 by mouth ity of tablet 13:30: daily. [facility] trazodone 2020-10 Yes Take by Unive rs HCl -29 mouth. ity of (TRAZODONE 13:30: [place] ORAL) [facility] citalopram 2020-10 Yes 10mg Take 10 mg U nivers 10 mg 1-29 by mouth ity of tablet 13:30: daily. [facility] trazodone 2020-10 Yes Take by Unive rs HCl 1-29 mouth. ity of (TRAZODONE 13:30: [place] ORAL) [facility] citalopram 2020-10 Yes 10mg Take 10 mg U nivers 10 mg 1-29 by mouth ity of tablet 13:30: daily. [address] [place] [address] Branch trazodone 2020-10 Yes Take by Unive [...] mouth. ity of (TRAZODONE 13:30: [place] ORAL) [facility] citalopram 2020-10 Yes 10mg Take 10 mg U nivers 10 mg 1-29 by mouth ity of tablet 13:30: daily. [facility] trazodone 2020-10 Yes Take by Unive rs HCl 29 mouth. ity of (TRAZODONE 13:30: [place] ORAL) [facility] citalopram 2020-10 Yes 10mg Take 10 mg U nivers 10 mg 1-29 by mouth ity of tablet 13:30: daily. [facility] trazodone 2020-10 Yes Take by Unive rs HCl 1-29 mouth. ity of (TRAZODONE 13:30: [place] ORAL) [facility] citalopram 2020-10 Yes 10mg Take 10 mg U nivers 10 mg 1-29 by mouth ity of tablet 13:30: daily. [facility] trazodone 2020-10 Yes Take by Unive rs HCl 1-29 mouth. ity of (TRAZODONE 13:30: [place] ORAL) [facility] citalopram 2020-10 Yes 10mg Take 10 mg U nivers 10 mg 1-29 by mouth ity of tablet 13:30: daily. [facility] trazodone 2020-10 Yes Take by [...] mouth. ity of (TRAZODONE 13:30: [place] ORAL) [facility] citalopram 2020-10 Yes 10mg Take [...] mouth. ity of (TRAZODONE 13:30: [place] ORAL) [facility] citalopram 2020-10 Yes 10mg Take 10 mg U nivers 10 mg 1-29 by mouth ity of tablet 13:30: daily. [facility] trazodone 2020-10 Yes Take by Unive rs HCl 29 mouth. ity of (TRAZODONE 13:30: [place] ORAL) [facility] citalopram 2020-10 Yes 10mg Take 10 mg U nivers 10 mg 1-29 by mouth ity of tablet 13:30: daily. [facility] trazodone 2020-10 Yes Take by Unive rs HCl 29 mouth. ity of (TRAZODONE 13:30: [place] ORAL) [facility] citalopram 2020-10 Yes 10mg Take 10 mg U nivers 10 mg 1-29 by mouth ity of tablet 13:30: daily. [facility] trazodone 2020-10 Yes Take by Unive rs HCl 29 mouth. ity of (TRAZODONE 13:30: [place] ORAL) [facility] citalopram 2020-10 Yes 10mg Take 10 mg U nivers 10 mg 1-29 by mouth ity of tablet 13:30: daily. [facility] trazodone 2020-10 Yes Take by Unive rs HCl 29 mouth. ity of (TRAZODONE 13:30: [place] ORAL) [facility] citalopram 2020-10 Yes 10mg Take 10 mg U nivers 10 mg 1-29 by mouth ity of tablet 13:30: daily. [facility] trazodone 2020-10 Yes Take by Unive rs HCl 29 mouth. ity of (TRAZODONE 13:30: [place] ORAL) [facility] citalopram 2020-10 Yes 10mg Take 10 mg U nivers 10 mg 1-29 by mouth ity of tablet 13:30: daily. [facility] trazodone 2020-10 Yes Take by Unive rs HCl 29 mouth. ity of (TRAZODONE 13:30: [place] ORAL) [facility] citalopram 2020-10 Yes 10mg Take 10 mg U nivers 10 mg 1-29 by mouth ity of tablet 13:30: daily. [facility] trazodone 2020-10 Yes Take by Unive rs HCl 11-06 mouth. ity of (TRAZODONE 13:30: [place] ORAL) [facility] citalopram 2020-10 Yes 10mg Take 10 mg U nivers 10 mg -29 by mouth ity of tablet 13:30: daily. [facility] trazodone 2020-10 Yes Take by Unive rs HCl 11-06 mouth. ity of (TRAZODONE 13:30: [place] ORAL) [facility] citalopram 2020-10 Yes 10mg Take 10 mg U nivers 10 mg -29 by mouth ity of tablet 13:30: daily. [facility] trazodone 2020-10 Yes Take by Unive rs HCl 11-06 mouth. ity of (TRAZODONE 13:30: [place] ORAL) [facility] citalopram 2020-10 Yes 10mg Take 10 mg U nivers 10 mg -29 by mouth ity of tablet 13:30: daily. [facility] trazodone 2020-10 Yes Take by Unive rs HCl 11-06 mouth. ity of (TRAZODONE 13:30: [place] ORAL) [facility] citalopram 2020-10 Yes 10mg Take 10 mg U nivers 10 mg -29 by mouth ity of tablet 13:30: daily. [facility] trazodone 2020-10 Yes Take by Unive rs HCl 29 mouth. ity of (TRAZODONE 13:30: [place] ORAL) [facility] citalopram 2020-10 Yes 10mg Take 10 mg U nivers 10 mg -29 by mouth ity of tablet 13:30: daily. [facility] trazodone 2020-10 Yes Take by Unive rs HCl 29 mouth. ity of (TRAZODONE 13:30: [place] ORAL) [facility] citalopram 2021-1 Yes 10mg Take 10 mg U nivers 10 mg 1-29 by mouth ity of tablet 13:30: daily. [facility] trazodone 2020-10 Yes Take by Unive rs HCl 11-06 mouth. ity of (TRAZODONE 13:30: [place] ORAL) [facility] citalopram 2020-10 Yes 10mg Take 10 mg U nivers 10 mg 1-29 by mouth ity of tablet 13:30: daily. [facility] trazodone 2020-10 Yes Take by Unive rs HCl 11-06 mouth. ity of (TRAZODONE 13:30: [place] ORAL) [facility] citalopram 2020-10 Yes 10mg Take 10 mg U nivers 10 mg 1-29 by mouth ity of tablet 13:30: daily. [facility] trazodone 2020-10 Yes Take by Unive rs HCl 11-06 mouth. ity of (TRAZODONE 13:30: [place] ORAL) [facility] citalopram 2020-10 Yes 10mg Take 10 mg U nivers 10 mg 1-29 by mouth ity of tablet 13:30: daily. [facility] trazodone 2020-10 Yes Take by Unive rs HCl 11-06 mouth. ity of (TRAZODONE 13:30: [place] ORAL) [facility] citalopram 2020-10 Yes 10mg Take 10 mg U nivers 10 mg 1-29 by mouth ity of tablet 13:30: daily. [facility] trazodone 2020-10 Yes Take by Unive rs HCl 11-06 mouth. ity of (TRAZODONE 13:30: [place] ORAL) [facility] citalopram 2020-10 Yes 10mg Take 10 mg U nivers 10 mg 1-29 by mouth ity of tablet 13:30: daily. [facility] trazodone 2020-10 Yes Take by Unive rs HCl 29 mouth. ity of (TRAZODONE 13:30: [place] ORAL) [facility] citalopram 2020-10 Yes 10mg Take 10 mg U nivers 10 mg 1-29 by mouth ity of tablet 13:30: daily. [facility] trazodone 2020-10 Yes Take by Unive rs HCl 1-29 mouth. ity of (TRAZODONE 13:30: [place] ORAL) [facility] citalopram 2020-10 Yes 10mg Take 10 mg U nivers 10 mg 1-29 by mouth ity of tablet 13:30: daily. [facility] trazodone 2020-10 Yes Take by Unive rs HCl 11-06 mouth. ity of (TRAZODONE 13:30: [place] ORAL) [facility] citalopram 2020-10 Yes 10mg Take 10 mg U nivers 10 mg 1-29 by mouth ity of tablet 13:30: daily. [facility] trazodone 2020-10 Yes Take by Unive rs HCl 29 mouth. ity of (TRAZODONE 13:30: [place] ORAL) [facility] citalopram 2020-10 Yes 10mg Take 10 mg U nivers 10 mg 1-29 by mouth ity of tablet 13:30: daily. [facility] trazodone 2020-10 Yes Take by Unive rs HCl 11-06 mouth. ity of (TRAZODONE 13:30: [place] ORAL) [facility] citalopram 2020-10 Yes 10mg Take 10 mg U nivers 10 mg 1-29 by mouth ity of tablet 13:30: daily. [facility] trazodone 2020-10 Yes Take by [...] by mouth ity of tablet 13:30: daily. [facility] trazodone 2020-10 Yes Take by Unive rs HCl 29 mouth. ity of (TRAZODONE 13:30: [place] ORAL) [facility] citalopram 2020-10 Yes 10mg Take 10 mg U nivers 10 mg 1-29 by mouth ity of tablet 13:30: daily. [facility] trazodone 2020-10 Yes Take by Unive rs HCl 11-06 mouth. ity of (TRAZODONE 13:30: [place] ORAL) [facility] citalopram 2020-10 Yes 10mg Take 10 mg U nivers 10 mg 11-06 by mouth ity of tablet 13:30: daily. [facility] trazodone 2020-10 Yes Take by Unive rs HCl 11-06 mouth. ity of (TRAZODONE 13:30: [place] ORAL) [facility] citalopram 2020-10 Yes 10mg Take 10 mg U nivers 10 mg 11-06 by mouth ity of tablet 13:30: daily. [facility] trazodone 2020-10 Yes Take by Unive rs HCl 11-06 mouth. ity of (TRAZODONE 13:30: [place] ORAL) [facility] citalopram 2020-10 Yes 10mg Take 10 mg U nivers 10 mg 11-06 by mouth ity of tablet 13:30: daily. [place] [facility] cetirizine Yes [id number] 10mg Take 1 Tab Univers (ZYRTEC) 10 1-03 by mouth ity of mg tablet 00:00: daily. [place] [facility] cetirizine Yes [id number] 10mg Take 1 Tab [facility] (ZYRTEC) 10 1-03 by mouth ity of mg tablet 00:00: daily. [place] [facility] cetirizine Yes [id number] 10mg Take 1 Tab Univers (ZYRTEC) 10 1-03 by mouth ity of mg tablet 00:00: daily. [place] [facility] cetirizine Yes [id number] 10mg Take 1 Tab [facility] (ZYRTEC) 10 1-03 by mouth ity of mg tablet 00:00: daily. [place] [facility] cetirizine Yes [id number] 10mg Take 1 Tab [facility] (ZYRTEC) 10 1-03 by mouth ity of mg tablet 00:00: daily. [facility] cetirizine Yes [id number] 10mg Take 1 Tab [facility] (ZYRTEC) 10 1-03 by mouth ity of mg tablet 00:00: daily. [facility] cetirizine Yes [id number] 10mg Take 1 Tab Univers (ZYRTEC) 10 1-03 by mouth ity of mg tablet 00:00: daily. [facility] cetirizine Yes [id number] 10mg Take 1 Tab [facility] (ZYRTEC) 10 1-03 by mouth ity of mg tablet 00:00: daily. [facility] cetirizine Yes [id number] 10mg Take 1 Tab Univers (ZYRTEC) 10 1-03 by mouth ity of mg tablet 00:00: daily. [facility] cetirizine Yes [id number] 10mg Take 1 Tab [facility] (ZYRTEC) 10 1-03 by mouth ity of mg tablet 00:00: daily. [place] [facility] cetirizine Yes [id number] 10mg Take 1 Tab [facility] (ZYRTEC) 10 1-03 by mouth ity of mg tablet 00:00: daily. [facility] cetirizine Yes [id number] 10mg Take 1 Tab [facility] (ZYRTEC) 10 1-03 by mouth ity of mg tablet 00:00: daily. [facility] cetirizine Yes [id number] 10mg Take 1 Tab [facility] (ZYRTEC) 10 1-03 by mouth ity of mg tablet 00:00: daily. [facility] cetirizine Yes [id number] 10mg Take 1 Tab [facility] (ZYRTEC) 10 1-03 by mouth ity of mg tablet 00:00: daily. [facility] cetirizine Yes [id number] 10mg Take 1 Tab [facility] (ZYRTEC) 10 1-03 by mouth ity of mg tablet 00:00: daily. [facility] cetirizine Yes [id number] 10mg Take 1 Tab [facility] (ZYRTEC) 10 1-03 by mouth ity of mg tablet 00:00: daily. [facility] cetirizine Yes [id number] 10mg Take 1 Tab [facility] (ZYRTEC) 10 1-03 by mouth ity of mg tablet 00:00: daily. [facility] cetirizine Yes [id number] 10mg Take 1 Tab [facility] (ZYRTEC) 10 1-03 by mouth ity of mg tablet 00:00: daily. [facility] cetirizine Yes [id number] 10mg Take 1 Tab [facility] (ZYRTEC) 10 1-03 by mouth ity of mg tablet 00:00: daily. [facility] cetirizine Yes [id number] 10mg Take 1 Tab [facility] (ZYRTEC) 10 1-03 by mouth ity of mg tablet 00:00: daily. [facility] cetirizine Yes [id number] 10mg Take 1 Tab [facility] (ZYRTEC) 10 1-03 by mouth ity of mg tablet 00:00: daily. [facility] cetirizine Yes [id number] 10mg Take 1 Tab [facility] (ZYRTEC) 10 1-03 by mouth ity of mg tablet 00:00: daily. [facility] cetirizine Yes [id number] 10mg Take 1 Tab [facility] (ZYRTEC) 10 1-03 by mouth ity of mg tablet 00:00: daily. [facility] cetirizine Yes [id number] 10mg Take 1 Tab [facility] (ZYRTEC) 10 1-03 by mouth ity of mg tablet 00:00: daily. [facility] cetirizine Yes [id number] 10mg Take 1 Tab [facility] (ZYRTEC) 10 1-03 by mouth ity of mg tablet 00:00: daily. [facility] cetirizine Yes [id number] 10mg Take 1 Tab [facility] (ZYRTEC) 10 1-03 by mouth ity of mg tablet 00:00: daily. [facility] cetirizine Yes [id number] 10mg Take 1 Tab Univers (ZYRTEC) 10 1-03 by mouth ity of mg tablet 00:00: daily. [facility] cetirizine Yes [id number] 10mg Take 1 Tab [facility] (ZYRTEC) 10 1-03 by mouth ity of mg tablet 00:00: daily. [facility] cetirizine Yes [id number] 10mg Take 1 Tab Univers (ZYRTEC) 10 1-03 by mouth ity of mg tablet 00:00: daily. [facility] cetirizine Yes [id number] 10mg Take 1 Tab Univers (ZYRTEC) 10 1-03 by mouth ity of mg tablet 00:00: daily. [facility] cetirizine Yes [id number] 10mg Take 1 Tab Univers (ZYRTEC) 10 1-03 by mouth ity of mg tablet 00:00: daily. [facility] cetirizine Yes [id number] 10mg Take 1 Tab Univers (ZYRTEC) 10 1-03 by mouth ity of mg tablet 00:00: daily. [facility] cetirizine Yes [id number] 10mg Take 1 Tab Univers (ZYRTEC) 10 1-03 by mouth ity of mg tablet 00:00: daily. [facility] cetirizine Yes [id number] 10mg Take 1 Tab Univers (ZYRTEC) 10 1-03 by mouth ity of mg tablet 00:00: daily. [facility] cetirizine Yes [id number] 10mg Take 1 Tab Univers (ZYRTEC) 10 1-03 by mouth ity of mg tablet 00:00: daily. [facility] cetirizine Yes [id number] 10mg Take 1 Tab [facility] (ZYRTEC) 10 1-03 by mouth ity of mg tablet 00:00: daily. [facility] cetirizine Yes [id number] 10mg Take 1 Tab [facility] (ZYRTEC) 10 1-03 by mouth ity of mg tablet 00:00: daily. [facility] cetirizine Yes [id number] 10mg Take 1 Tab [facility] (ZYRTEC) 10 1-03 by mouth ity of mg tablet 00:00: daily. [facility] cetirizine Yes [id number] 10mg Take 1 Tab [facility] (ZYRTEC) 10 1-03 by mouth ity of mg tablet 00:00: daily. [facility] cetirizine Yes [id number] 10mg Take 1 Tab [facility] (ZYRTEC) 10 1-03 by mouth ity of mg tablet 00:00: daily. [facility] cetirizine Yes [id number] 10mg Take 1 Tab [facility] (ZYRTEC) 10 1-03 by mouth ity of mg tablet 00:00: daily. [facility] cetirizine Yes [id number] 10mg Take 1 Tab [facility] (ZYRTEC) 10 1-03 by mouth ity of mg tablet 00:00: daily. [facility] cetirizine Yes [id number] 10mg Take 1 Tab [facility] (ZYRTEC) 10 1-03 by mouth ity of mg tablet 00:00: daily. [facility] cetirizine Yes [id number] 10mg Take 1 Tab [facility] (ZYRTEC) 10 1-03 by mouth ity of mg tablet 00:00: daily. [facility] cetirizine Yes [id number] 10mg Take 1 Tab [facility] (ZYRTEC) 10 1-03 by mouth ity of mg tablet 00:00: daily. [facility] cetirizine Yes [id number] 10mg Take 1 Tab [facility] (ZYRTEC) 10 1-03 by mouth ity of mg tablet 00:00: daily. [facility] cetirizine Yes [id number] 10mg Take 1 Tab [facility] (ZYRTEC) 10 1-03 by mouth ity of mg tablet 00:00: daily. [facility] cetirizine Yes [id number] 10mg Take 1 Tab [facility] (ZYRTEC) 10 1-03 by mouth ity of mg tablet 00:00: daily. [facility] cetirizine Yes [id number] 10mg Take 1 Tab [facility] (ZYRTEC) 10 1-03 by mouth ity of mg tablet 00:00: daily. [facility] cetirizine Yes [id number] 10mg Take 1 Tab [facility] (ZYRTEC) 10 1-03 by mouth ity of mg tablet 00:00: daily. [facility] cetirizine Yes [id number] 10mg Take 1 Tab [facility] (ZYRTEC) 10 1-03 by mouth ity of mg tablet 00:00: daily. [place] [facility] cetirizine Yes [id number] 10mg Take 1 Tab [facility] (ZYRTEC) 10 1-03 by mouth ity of mg tablet 00:00: daily. [place] [facility] cetirizine Yes [id number] 10mg Take 1 Tab [facility] (ZYRTEC) 10 1-03 by mouth ity of mg tablet 00:00: daily. [place] [facility] cetirizine Yes [id number] 10mg Take 1 Tab [facility] (ZYRTEC) 10 1-03 by mouth ity of mg tablet 00:00: daily. [address] cetirizine Yes [id number] 10mg Take 1 Tab [facility] (ZYRTEC) 10 1-03 by mouth ity of mg tablet 00:00: daily. [address] Immunizations Ordered Immunization Filled Date Status Comments Sour ce Name Immunization Name TDAP 2023-05-26 Completed [facility] 00:[facility]00 [facility] TDAP 2023-05-26 Completed [facility] 00:00:00 [facility] SARS-COV-2 COVID-19 2021-09-06 Completed [facility]ive rsity [facility] [facility] SARS-COV-2 COVID-19 2021-09-06 Completed [facility] PFIZER VACCINE 00:00:00 [facility] SARS-COV-2 COVID-19 2021-09-06 Completed [facility] of PFIZER VACCINE 00:00:00 [facility] SARS-COV-2 COVID-19 2021-09-06 Completed [facility] of PFIZER VACCINE 00:00:00 [facility] SARS-COV-2 COVID-19 2021-09-06 Completed [facility] of PFIZER VACCINE 00:00:00 [facility] SARS-COV-2 COVID-19 2021-09-06 Completed [facility] of PFIZER VACCINE 00:00:00 [facility] SARS-COV-2 COVID-19 2021-09-06 Completed [facility] of PFIZER VACCINE 00:00:00 [facility] SARS-COV-2 COVID-19 2021-09-06 Completed [facility] of PFIZER VACCINE 00:00:00 [facility] SARS-COV-2 COVID-19 2021-09-06 Completed [facility] of PFIZER VACCINE 00:00:00 [facility] SARS-COV-2 COVID-19 2021-09-06 Completed [facility] of PFIZER VACCINE 00:00:00 [facility] SARS-COV-2 COVID-19 2021-09-06 Completed [facility] of PFIZER VACCINE 00:00:00 [facility] SARS-COV-2 COVID-19 2021-09-06 Completed [facility] of PFIZER VACCINE 00:00:00 [facility] SARS-COV-2 COVID-19 2021-09-06 Completed [facility] of PFIZER VACCINE 00:00:00 [facility] SARS-COV-2 COVID-19 2021-09-06 Completed [facility] of PFIZER VACCINE 00:00:00 [facility] SARS-COV-2 COVID-19 2021-09-06 Completed [facility] of PFIZER VACCINE 00:00:00 [facility] SARS-COV-2 COVID-19 2021-09-06 Completed [facility] of PFIZER VACCINE 00:00:00 [facility] SARS-COV-2 COVID-19 2021-09-06 Completed [facility] of PFIZER VACCINE 00:00:00 [facility] SARS-COV-2 COVID-19 2021-09-06 Completed [facility] of PFIZER VACCINE 00:00:00 [facility] SARS-COV-2 COVID-19 2021-09-06 Completed [facility] of PFIZER VACCINE 00:00:00 [facility] SARS-COV-2 COVID-19 2021-09-06 Completed [facility] of PFIZER VACCINE 00:00:00 [facility] SARS-COV-2 COVID-19 2021-09-06 Completed [facility] of PFIZER VACCINE 00:00:00 [facility] SARS-COV-2 COVID-19 2021-09-06 Completed [facility] of PFIZER VACCINE 00:00:00 [facility] SARS-COV-2 COVID-19 2021-09-06 Completed [facility] PFIZER VACCINE 00:00:00 [facility] SARS-COV-2 COVID-19 2021-09-06 Completed [facility] PFIZER VACCINE 00:00:00 [facility] SARS-COV-2 COVID-19 2021-09-06 Completed [facility] of PFIZER VACCINE 00:00:00 [facility] SARS-COV-2 COVID-19 2021-09-06 Completed [facility] of PFIZER VACCINE 00:00:00 [facility] SARS-COV-2 COVID-19 2021-09-06 Completed [facility] of PFIZER VACCINE 00:00:00 [facility] SARS-COV-2 COVID-19 2021-09-06 Completed [facility] of PFIZER VACCINE 00:00:00 [facility] SARS-COV-2 COVID-19 2021-09-06 Completed [facility] of PFIZER VACCINE 00:00:00 [facility] SARS-COV-2 COVID-19 2021-09-06 Completed [facility] of PFIZER VACCINE 00:00:00 [facility] SARS-COV-2 COVID-19 2021-09-06 Completed [facility] of PFIZER VACCINE 00:00:00 [facility] SARS-COV-2 COVID-19 2021-09-06 Completed [facility] of PFIZER VACCINE 00:00:00 [facility] SARS-COV-2 COVID-19 2021-09-06 Completed [facility] of PFIZER VACCINE 00:00:00 [facility] SARS-COV-2 COVID-19 2021-09-06 Completed [facility] of PFIZER VACCINE 00:00:00 [facility] SARS-COV-2 COVID-19 2021-09-06 Completed [facility] of PFIZER VACCINE 00:00:00 [facility] SARS-COV-2 COVID-19 2021-09-06 Completed [facility] of PFIZER VACCINE 00:00:00 [facility] SARS-COV-2 COVID-19 2021-09-06 Completed [facility] PFIZER VACCINE 00:00:00 [facility] SARS-COV-2 COVID-19 2021-09-06 Completed [facility] of PFIZER VACCINE 00:00:00 [facility] SARS-COV-2 COVID-19 2021-09-06 Completed [facility] of PFIZER VACCINE 00:00:00 [facility] SARS-COV-2 COVID-19 2021-09-06 Completed [facility] PFIZER VACCINE 00:00:00 [facility] SARS-COV-2 COVID-19 2021-02-06 Completed [facility] of PFIZER VACCINE 00:00:00 [facility] SARS-COV-2 COVID-19 2021-02-06 Completed [facility] of PFIZER VACCINE 00:00:00 [facility] SARS-COV-2 COVID-19 2021-02-06 Completed [facility] of PFIZER VACCINE 00:00:00 [facility] SARS-COV-2 COVID-19 2021-02-06 Completed [facility] of PFIZER VACCINE 00:00:00 [facility] SARS-COV-2 COVID-19 2021-02-06 Completed [facility] of PFIZER VACCINE 00:00:00 [facility] SARS-COV-2 COVID-19 2021-02-06 Completed [facility] PFIZER VACCINE 00:00:00 [facility] SARS-COV-2 COVID-19 2021-02-06 Completed [facility] of PFIZER VACCINE 00:00:00 [facility] SARS-COV-2 COVID-19 2021-02-06 Completed [facility] of PFIZER VACCINE 00:00:00 [facility] SARS-COV-2 COVID-19 2021-02-06 Completed [facility] PFIZER VACCINE 00:00:00 [facility] SARS-COV-2 COVID-19 2021-02-06 Completed [facility] of PFIZER VACCINE 00:00:00 [facility] SARS-COV-2 COVID-19 2021-02-06 Completed [facility] of PFIZER VACCINE 00:00:00 [facility] SARS-COV-2 COVID-19 2021-02-06 Completed [facility] PFIZER VACCINE 00:00:00 [facility] SARS-COV-2 COVID-19 2021-02-06 Completed [facility] PFIZER VACCINE 00:00:00 [facility] SARS-COV-2 COVID-19 2021-02-06 Completed [facility] PFIZER VACCINE 00:00:00 [place] [facility] SARS-COV-2 COVID-19 2021-02-06 Completed [facility] PFIZER VACCINE 00:00:00 [facility] SARS-COV-2 COVID-19 2021-02-06 Completed [facility] of PFIZER VACCINE 00:00:00 [facility] SARS-COV-2 COVID-19 2021-02-06 Completed [facility] PFIZER VACCINE 00:00:00 [facility] SARS-COV-2 COVID-19 2021-02-06 Completed [facility] of PFIZER VACCINE 00:00:00 [facility] SARS-COV-2 COVID-19 2021-02-06 Completed [facility] PFIZER VACCINE 00:00:00 [facility] SARS-COV-2 COVID-19 2021-02-06 Completed [facility] of PFIZER VACCINE 00:00:00 [facility] SARS-COV-2 COVID-19 2021-02-06 Completed [facility] PFIZER VACCINE 00:00:00 [facility] SARS-COV-2 COVID-19 2021-02-06 Completed [facility] of PFIZER VACCINE 00:00:00 [facility] SARS-COV-2 COVID-19 2021-02-06 Completed [facility] PFIZER VACCINE 00:00:00 [facility] SARS-COV-2 COVID-19 2021-02-06 Completed [facility] of PFIZER VACCINE 00:00:00 [facility] SARS-COV-2 COVID-19 2021-02-06 Completed [facility] PFIZER VACCINE 00:00:00 [facility] SARS-COV-2 COVID-19 2021-02-06 Completed [facility] of PFIZER VACCINE 00:00:00 [facility] SARS-COV-2 COVID-19 2021-02-06 Completed [facility] PFIZER VACCINE 00:00:00 [facility] SARS-COV-2 COVID-19 2021-02-06 Completed [facility] of PFIZER VACCINE 00:00:00 [facility] SARS-COV-2 COVID-19 2021-02-06 Completed [facility] PFIZER VACCINE 00:00:00 [facility] SARS-COV-2 COVID-19 2021-02-06 Completed [facility] of PFIZER VACCINE 00:00:00 [facility] SARS-COV-2 COVID-19 2021-02-06 Completed [facility] PFIZER VACCINE 00:00:00 [facility] SARS-COV-2 COVID-19 2021-02-06 Completed [facility] PFIZER VACCINE 00:00:00 [facility] SARS-COV-2 COVID-19 2021-02-06 Completed [facility] of PFIZER VACCINE 00:00:00 [facility] SARS-COV-2 COVID-19 2021-02-06 Completed [facility] of PFIZER VACCINE 00:00:00 [facility] SARS-COV-2 COVID-19 2021-02-06 Completed [facility] of PFIZER VACCINE 00:00:00 [facility] SARS-COV-2 COVID-19 2021-02-06 Completed [facility] of PFIZER VACCINE 00:00:00 [facility] SARS-COV-2 COVID-19 2021-02-06 Completed [facility] of PFIZER VACCINE 00:00:00 [facility] SARS-COV-2 COVID-19 2021-02-06 Completed [facility] PFIZER VACCINE 00:00:00 [facility] SARS-COV-2 COVID-19 2021-02-06 Completed [facility] PFIZER VACCINE 00:00:00 [facility] SARS-COV-2 COVID-19 2021-02-06 Completed [facility] PFIZER VACCINE 00:00:00 [facility] SARS-COV-2 COVID-19 2021-01-16 Completed [facility] PFIZER VACCINE 00:00:00 [facility] SARS-COV-2 COVID-19 2021-01-16 Completed [facility] of PFIZER VACCINE 00:00:00 [facility] SARS-COV-2 COVID-19 2021-01-16 Completed [facility] PFIZER VACCINE 00:00:00 [facility] SARS-COV-2 COVID-19 2021-01-16 Completed [facility] PFIZER VACCINE 00:00:00 [facility] SARS-COV-2 COVID-19 2021-01-16 Completed [facility] of PFIZER VACCINE 00:00:00 [facility] SARS-COV-2 COVID-19 2021-01-16 Completed [facility] of PFIZER VACCINE 00:00:00 [facility] SARS-COV-2 COVID-19 2021-01-16 Completed [facility] PFIZER VACCINE 00:00:00 [place] [facility] SARS-COV-2 COVID-19 2021-01-16 Completed [facility] of PFIZER VACCINE 00:00:00 [facility] SARS-COV-2 COVID-19 2021-01-16 Completed [facility] of PFIZER VACCINE 00:00:00 [facility] SARS-COV-2 COVID-19 2021-01-16 Completed [facility] of PFIZER VACCINE 00:00:00 [facility] SARS-COV-2 COVID-19 2021-01-16 Completed [facility] of PFIZER VACCINE 00:00:00 [facility] SARS-COV-2 COVID-19 2021-01-16 Completed [facility] of PFIZER VACCINE 00:00:00 [facility] SARS-COV-2 COVID-19 2021-01-16 Completed [facility] of PFIZER VACCINE 00:00:00 [facility] SARS-COV-2 COVID-19 2021-01-16 Completed [facility] of PFIZER VACCINE 00:00:00 [facility] SARS-COV-2 COVID-19 2021-01-16 Completed [facility] of PFIZER VACCINE 00:00:00 [facility] SARS-COV-2 COVID-19 2021-01-16 Completed [facility] of PFIZER VACCINE 00:00:00 [facility] SARS-COV-2 COVID-19 2021-01-16 Completed [facility] of PFIZER VACCINE 00:00:00 [facility] SARS-COV-2 COVID-19 2021-01-16 Completed [facility] of PFIZER VACCINE 00:00:00 [facility] SARS-COV-2 COVID-19 2021-01-16 Completed [facility] of PFIZER VACCINE 00:00:00 [facility] SARS-COV-2 COVID-19 2021-01-16 Completed [facility] of PFIZER VACCINE 00:00:00 [facility] SARS-COV-2 COVID-19 2021-01-16 Completed [facility] of PFIZER VACCINE 00:00:00 [facility] SARS-COV-2 COVID-19 2021-01-16 Completed [facility] of PFIZER VACCINE 00:00:00 [facility] SARS-COV-2 COVID-19 2021-01-16 Completed [facility] of PFIZER VACCINE 00:00:00 [facility] SARS-COV-2 COVID-19 2021-01-16 Completed [facility] of PFIZER VACCINE 00:00:00 [facility] SARS-COV-2 COVID-19 2021-01-16 Completed [facility] of PFIZER VACCINE 00:00:00 [facility] SARS-COV-2 COVID-19 2021-01-16 Completed [facility] of PFIZER VACCINE 00:00:00 [facility] SARS-COV-2 COVID-19 2021-01-16 Completed [facility] of PFIZER VACCINE 00:00:00 [facility] SARS-COV-2 COVID-19 2021-01-16 Completed [facility] of PFIZER VACCINE 00:00:00 [facility] SARS-COV-2 COVID-19 2021-01-16 Completed [facility] of PFIZER VACCINE 00:00:00 [facility] SARS-COV-2 COVID-19 2021-01-16 Completed [facility] of PFIZER VACCINE 00:00:00 [facility] SARS-COV-2 COVID-19 2021-01-16 Completed [facility] of PFIZER VACCINE 00:00:00 [facility] SARS-COV-2 COVID-19 2021-01-16 Completed [facility] of PFIZER VACCINE 00:00:00 [facility] SARS-COV-2 COVID-19 2021-01-16 Completed [facility] of PFIZER VACCINE 00:00:00 [facility] SARS-COV-2 COVID-19 2021-01-16 Completed [facility] of PFIZER VACCINE 00:00:00 [facility] SARS-COV-2 COVID-19 2021-01-16 Completed [facility] of PFIZER VACCINE 00:00:00 [facility] SARS-COV-2 COVID-19 2021-01-16 Completed [facility] of PFIZER VACCINE 00:00:00 [facility] SARS-COV-2 COVID-19 2021-01-16 Completed [facility] of PFIZER VACCINE 00:00:00 [facility] SARS-COV-2 COVID-19 2021-01-16 Completed [facility] of PFIZER VACCINE 00:00:00 [facility] SARS-COV-2 COVID-19 2021-01-16 Completed [facility] of PFIZER VACCINE 00:00:00 [facility] SARS-COV-2 COVID-19 2021-01-16 Completed [facility] of PFIZER VACCINE 00:00:00 [facility] Pneumococcal 2019-12-17 Completed University o f Polysaccharide, 00:00:00 [facility] ical PPSV23 (PNEUMOVAX) Branch Pneumococcal 2019-12-17 Completed University o f Polysaccharide, 00:00:00 [facility] ical PPSV23 (PNEUMOVAX) Branch Influenza Virus 2017-08-28 Completed Universit y of Vaccine Quad .5 mL 00:00:00 [facility] 6+ MO [place] Influenza Virus 2017-08-28 Completed Universit y of Vaccine Quad .5 mL 00:00:00 [facility] 6+ MO Branch HPV9 2017-03-31 Completed University of 00:00:00 [facility] Meningococcal 2017-03-31 Completed University of Polysaccharide 00:00:00 [facility] (groups A, C, Y and Branc h W-135) conjugate vaccine (MCV4P) HPV9 2017-03-31 Completed University of 00:00:00 [facility] Meningococcal 2017-03-31 Completed University of Polysaccharide 00:00:00 [facility] (groups A, C, Y and Branc h W-135) conjugate vaccine (MCV4P) Varicella 2016-06-15 Completed University of (varivax)(chicken 00:00:00 [place] [facility] pox) [facility] Varicella 2016-06-15 Completed University of (varivax)(chicken 00:00:00 [place] [facility] pox) [place] Flu Trivalent 2015-07-20 Completed University of 00:00:00 [facility] Flu Trivalent 2015-07-20 Completed University of 00:00:00 [facility] MMR 2015-05-05 Completed University of 00:00:00 [facility] MMR 2015-05-05 Completed University of 00:00:00 [facility] Proquad 2015-03-30 Completed University of (MMR/VARICELLA) 00:00:00 [facility] ical Branch IPV 2015-03-30 Completed University of 00:00:00 [facility] Proquad 2015-03-30 Completed University of (MMR/VARICELLA) 00:00:00 [facility] ical Branch IPV 2015-03-30 Completed University of 00:00:00 [facility] HIB 3 Dose Schedule 2015-02-27 Completed Unive rsity of 00:00:00 [facility] Pneumococcal 13 2015-02-27 Completed Universit [facility] of Conjugate, PCV13 00:00[facility] (Pre[facility]ar 13) Branch HIB 3 Dose Schedule 2015-02-27 Completed Unive rsity of 00:00:00 [facility] Pneumococcal 13 2015-02-27 Completed Universit [facility] of Conjugate, PCV13 00:00:00 [facility] (Prevnar 13) [facility] HEPATITIS A 2014-01-23 Completed University of 00:00:00 [facility] Heamophilus 2014-01-23 Completed University of Influenza B 00:00:00 [facility] HEPATITIS A 2014-01-23 Completed University of 00:00:00 [facility] Heamophilus 2014-01-23 Completed University of Influenza B 00:00:00 [facility] HEPATITIS A 2014-01-23 Completed [facility] Influenza B 00:00:00 [facility] HEPATITIS A 2014-01-23 Completed University of 00:00:00 [facility] Heamophilus 2014-01-23 Completed University of Influenza B 00:00:00 [facility] HEPATITIS A 2014-01-23 Completed [facility] Com[facility] of Influenza B 00:00:00 [facility] HEPATITIS A 2014-01-23 Completed [facility] 00:[facility] Com[facility] of Influenza B 00:00:00 [facility] HEPATITIS A 2014-01-23 Completed University of 00:00:00 [facility] Heamophilus 2014-01-23 Completed University of Influenza B 00:00:00 [facility] HEPATITIS A 2014-01-23 Completed [facility] Com[facility] of Influenza B 00:00:00 [facility] HEPATITIS A 2014-01-23 Completed [facility] 00:00[facility] 2014-[facility] Completed [facility] of Influenza B 00:00:00 [facility] HEPATITIS A 2014-01-23 Completed University of 00:00:00 [facility] Heamophilus 2014-01-23 Completed University of Influenza B 00:00:00 [facility] HEPATITIS A 2014-01-23 Completed [facility] Com[facility] of Influenza B 00:00:00 [facility] HEPATITIS A 2014-01-23 Completed University of 00:00:00 [facility] Heamophilus 2014-01-23 Completed University of Influenza B 00:00:00 [facility] HEPATITIS A 2014-01-23 Completed [facility] Com[facility] of Influenza B 00:00:00 [facility] HEPATITIS A 2014-01-23 Completed [facility] 00:[facility] Com[facility] of Influenza B 00:00:00 [facility] HEPATITIS A 2014-01-23 Completed [facility] 00:00[facility] 2014-01[facility] Completed [facility] of Influenza B 00:00:00 [facility] HEPATITIS A 2014-01-23 Completed [facility] 00[facility]00[facility] 2014-[facility] Completed [facility] of Influenza B 00:00:00 [facility] HEPATITIS A 2014-01-23 Completed [facility] 00:00[facility] 2014-01[facility] Completed [facility] of Influenza B 00:00:00 [facility] HEPATITIS A 2014-01-23 Completed University of 00:00:00 [facility] Heamophilus 2014-01-23 Completed University of Influenza B 00:00:00 [facility] HEPATITIS A 2014-01-23 Completed [facility] Com[facility] of Influenza B 00:00:00 [facility] HEPATITIS A 2014-01-23 Completed University of 00:00:00 [facility] Heamophilus 2014-01-23 Completed University of Influenza B 00:00:00 [facility] HEPATITIS A 2014-01-23 Completed University of 00:00:00 [facility] Heamophilus 2014-01-23 Completed [facility] of Influenza B 00:00:00 [facility] HEPATITIS A 2014-01-23 Completed [facility] [facility] Influenza B 00:00:00 [facility] HEPATITIS A 2014-01-23 Completed [facility] of Influenza B 00:00:00 [facility] HEPATITIS A 2014-01-23 Completed [facility] 00:[facility] Com[facility] of Influenza B 00:00:00 [facility] HEPATITIS A 2014-01-23 Completed [facility] 00:[facility] Com[facility] of Influenza B 00:00:00 [facility] HEPATITIS A 2014-01-23 Completed [facility] 00:[facility] Com[facility] of Influenza B 00:00:00 [facility] HEPATITIS A 2014-01-23 Completed [facility] [facility] Influenza B 00:00:00 [facility] HEPATITIS A 2014-01-23 Completed [facility] of Influenza B 00:00:00 [facility] HEPATITIS A 2014-01-23 Completed [facility] [facility] Influenza B 00:00:00 [facility] HEPATITIS A 2014-01-23 Completed [facility] [facility] Influenza B 00:00:00 [facility] HEPATITIS A 2014-01-23 Completed [facility] of Influenza B 00:00:00 [facility] HEPATITIS A 2014-01-23 Completed [facility] 00[facility]00[facility] Completed [facility] of Influenza B 00:00:00 [facility] HEPATITIS A 2014-01-23 Completed [facility] Com[facility] of Influenza B 00:00:00 [facility] HEP B, Adult Dosage 2014-01-23 Completed Unive rsity of 00:00:00 [facility] Hep B, Adol or Pedi 2014-01-23 Completed Unive rsity of Dosage 00:00:00 [facility] IPV 2014-01-23 Completed University of 00:00:00 [facility] HEPATITIS A 2014-01-23 Completed University of 00:00:00 [facility] Heamophilus 2014-01-23 Completed University of Influenza B 00:00:00 [facility] HEP B, Adult Dosage 2014-01-23 Completed Unive rsity of 00:00:00 [facility] Hep B, Adol or Pedi 2014-01-23 Completed Unive rsity of Dosage 00:00:00 [facility] IPV 2014-01-23 Completed [facility] 00:00:00 [facility] DTAP 2013-04-12 Completed [facility] 00:00:00 [facility] Polio (IPV/OPV) 2013-04-12 Completed [facility] 00:00:00 [facility] Pneumococcal 7 2013-04-12 Completed [facility] Conjugate, PCV7 00:00:00 [facility] ([facility] DTAP 2013-04-12 Completed [facility] 00:00:00 [facility] Polio (IPV/OPV) 2013-04-12 Completed [facility] 00:00:00 [facility] Pneumococcal 7 2013-04-12 Completed [facility] Conjugate, PCV7 00:00:00 [facility] (Pre[facility]ar[facility]) [facility] DTAP 2013-04-12 Completed [facility] 00:00:00 [facility] Polio (IPV/OPV) 2013-04-12 Completed [facility] 00:00:00 [facility] Pneumococcal 7 2013-04-12 Completed [facility] Conjugate, PCV7 00:00:00 [facility] (Prevnar7) [facility] DTAP 2013-04-12 Completed [facility] 00:00:00 [facility] Polio (IPV/OPV) 2013-04-12 Completed [facility] 00:00:00 [facility] Pneumococcal 7 2013-04-12 Completed [facility] Conjugate, PCV7 00:00:00 [facility] (Prevnar[facility]) [facility] DTAP 2013-04-12 Completed [facility] 00:00:00 [facility] Polio (IPV/OPV) 2013-04-12 Completed [facility] 00:00:00 [facility] Pneumococcal 7 2013-04-12 Completed [facility] Conjugate, PCV7 00:00:00 [facility] (Prevnar[facility]) [facility] DTAP 2013-04-12 Completed [facility] 00:00:00 [facility] Polio (IPV/OPV) 2013-04-12 Completed [facility] 00:00:00 [facility] Pneumococcal 7 2013-04-12 Completed [facility] Conjugate, PCV7 00:00:00 [facility] (Prevnar7[facility] DT 2013-04-12 Completed [facility] 00:00:00 [facility] Polio (IPV/OPV) 2013-04-12 Completed [facility] 00:00:00 [facility] Pneumococcal 7 2013-04-12 Completed [facility] Conjugate, PCV7 00:00:00 [facility] 2013-04-12 Completed [facility] 00:00:00 [facility] Polio (IPV/OPV) 2013-04-12 Completed [facility] 00:00:00 [facility] Pneumococcal 7 2013-04-12 Completed [facility] Conjugate, PCV7 00:00:00 [facility] (Pre[facility]ar[facility] 2013-04-12 Completed [facility] 00:00:00 [facility] Polio (IPV/OPV) 2013-04-12 Completed [facility] 00:00:00 [facility] Pneumococcal 7 2013-04-12 Completed [facility] Conjugate, PCV7 00:00:00 [facility] (Prevnar[facility] 2013-04-12 Completed [facility] 00:00:00 [facility] Polio (IPV/OPV) 2013-04-12 Completed [facility] 00:00:00 [facility] Pneumococcal 7 2013-04-12 Completed [facility] Conjugate, PCV7 00:00:00 [facility] (Prevnar[facility] 2013-04-12 Completed [facility] 00:00:00 [facility] Polio (IPV/OPV) 2013-04-12 Completed [facility] 00:00:00 [facility] Pneumococcal 7 2013-04-12 Completed [facility] Conjugate, PCV7 00:00:00 [facility] (Prevnar[facility] 2013-04-12 Completed [facility] 00:00:00 [facility] Polio (IPV/OPV) 2013-04-12 Completed [facility] 00:00:00 [facility] Pneumococcal 7 2013-04-12 Completed [facility] Conjugate, PCV7 00:00:00 [place] [facility] (Pre[facility] 2013-04-12 Completed [facility] 00:00:00 [facility] Polio (IPV/OPV) 2013-04-12 Completed [facility] 00:00:00 [facility] Pneumococcal 7 2013-04-12 Completed [facility] Conjugate, PCV7 00:00:00 [facility] (Prevnar[facility] 2013-04-12 Completed [facility] 00:00:00 [facility] Polio (IPV/OPV) 2013-04-12 Completed [facility] 00:00:00 [facility] Pneumococcal 7 2013-04-12 Completed [facility] of Conjugate, PCV7 00:00:00 [facility] ical (Prevnar7) Branch [facility] 2013-04-12 Completed [facility] 00:00:00 [facility] Polio (IPV/OPV) 2013-04-12 Completed [facility] of 00:00:00 [facility] Pneumococcal 7 2013-04-12 Completed [facility] of Conjugate, PCV7 00:00:00 [facility] ical (Prevnar7) Branch [facility] 2013-04-12 Completed [facility] 00:00:00 [facility] Polio (IPV/OPV) 2013-04-12 Completed [facility] 00:00:00 [facility] Pneumococcal 7 2013-04-12 Completed [facility] of Conjugate, PCV7 00:00:00 [facility] ical (Prevnar7) Branch [facility] 2013-04-12 Completed [facility] 00:00:00 [facility] Polio (IPV/OPV) 2013-04-12 Completed [facility] of 00:00:00 [facility] Pneumococcal 7 2013-04-12 Completed [facility] Conjugate, PCV7 00:00:00 [facility] ical (Prevnar7) Branch [facility] 2013-04-12 Completed [facility] 00:00:00 [facility] Polio (IPV/OPV) 2013-04-12 Completed [facility] 00:00:00 [facility] Pneumococcal 7 2013-04-12 Completed [facility] Conjugate, PCV7 00:00:00 [facility] (Pre[facility]ar[facility] 2013-04-12 Completed [facility] 00:00:00 [facility] Polio (IPV/OPV) 2013-04-12 Completed [facility] 00:00:00 [facility] Pneumococcal 7 2013-04-12 Completed [facility] Conjugate, PCV7 00:00:00 [facility] (Pre[facility]ar[facility] 2013-04-12 Completed [facility] 00:00:00 [facility] Polio (IPV/OPV) 2013-04-12 Completed [facility] 00:00:00 [facility] Pneumococcal 7 2013-04-12 Completed [facility] Conjugate, PCV7 00:00:00 [facility] (Prevnar7) [facility] DT 2013-04-12 Completed [facility] 00:00:00 [facility] Polio (IPV/OPV) 2013-04-12 Completed [facility] 00:00:00 [facility] Pneumococcal 7 2013-04-12 Completed [facility] Conjugate, PCV7 00:00:00 [facility] (Pre[facility]ar[facility] 2013-04-12 Completed [facility] 00:00:00 [facility] Polio (IPV/OPV) 2013-04-12 Completed [facility] 00:00:00 [facility] Pneumococcal 7 2013-04-12 Completed [facility] Conjugate, PCV7 00:00:00 [facility] (Pre[facility]ar[facility] 2013-04-12 Completed [facility] 00:00:00 [facility] Polio (IPV/OPV) 2013-04-12 Completed [facility] 00:00:00 [facility] Pneumococcal 7 2013-04-12 Completed [facility] Conjugate, PCV7 00:00:00 [facility] (Pre[facility]ar[facility] 2013-04-12 Completed [facility] 00:00:00 [facility] Polio (IPV/OPV) 2013-04-12 Completed [facility] 00:00:00 [facility] Pneumococcal 7 2013-04-12 Completed [facility] Conjugate, PCV7 00:00:00 [facility] (Pre[facility]ar[facility] 2013-04-12 Completed [facility] 00:00:00 [facility] Polio (IPV/OPV) 2013-04-12 Completed [facility] of 00:00:00 [facility] Pneumococcal 7 2013-04-12 Completed [facility] Conjugate, PCV7 00:00:00 [facility] (Pre[facility]ar[facility] 2013-04-12 Completed [facility] 00:00:00 [facility] Polio (IPV/OPV) 2013-04-12 Completed [facility] 00:00:00 [facility] Pneumococcal 7 2013-04-12 Completed [facility] Conjugate, PCV7 00:00:00 [facility] (Prevnar7) [facility] DTAP 2013-04-12 Completed [facility] 00:00:00 [facility] Polio (IPV/OPV) 2013-04-12 Completed [facility] 00:00:00 [facility] Pneumococcal 7 2013-04-12 Completed [facility] Conjugate, PCV7 00:00:00 [facility] (Prevnar7) [facility] DTAP 2013-04-12 Completed [facility] 00:00:00 [facility] Polio (IPV/OPV) 2013-04-12 Completed [facility] 00:00:00 [facility] Pneumococcal 7 2013-04-12 Completed [facility] Conjugate, PCV7 00:00:00 [facility] (Prevnar[facility] 2013-04-12 Completed [facility] 00:00:00 [facility] Polio (IPV/OPV) 2013-04-12 Completed [facility] 00:00:00 [facility] Pneumococcal 7 2013-04-12 Completed [facility] Conjugate, PCV7 00:00:00 [facility] (Prevnar[facility] 2013-04-12 Completed [facility] 00:00:00 [facility] Polio (IPV/OPV) 2013-04-12 Completed [facility] 00:00:00 [facility] Pneumococcal 7 2013-04-12 Completed [facility] Conjugate, PCV7 00:00:00 [facility] (Prevnar[facility] 2013-04-12 Completed [facility] 00:00:00 [facility] Polio (IPV/OPV) 2013-04-12 Completed [facility] 00:00:00 [facility] Pneumococcal 7 2013-04-12 Completed [facility] Conjugate, PCV7 00:00:00 [facility] (Prevnar[facility] 2013-04-12 Completed [facility] 00:00:00 [facility] Polio (IPV/OPV) 2013-04-12 Completed [facility] 00:00:00 [facility] Pneumococcal 7 2013-04-12 Completed [facility] Conjugate, PCV7 00:00:00 [facility] (Prevnar7[facility] 2013-04-12 Completed [facility] 00:00:00 [facility] Polio (IPV/OPV) 2013-04-12 Completed [facility] 00:00:00 [facility] Pneumococcal 7 2013-04-12 Completed [facility] Conjugate, PCV7 00:00:00 [facility] (Prevnar7) [facility] DTAP 2013-04-12 Completed [facility] 00:00:00 [facility] Polio (IPV/OPV) 2013-04-12 Completed [facility] 00:00:00 [facility] Pneumococcal 7 2013-04-12 Completed [facility] Conjugate, PCV7 00:00:00 [facility] (Prevnar7) [facility] DTAP 2013-04-12 Completed [facility] 00:00:00 [facility] Polio (IPV/OPV) 2013-04-12 Completed [facility] 00:00:00 [facility] Pneumococcal 7 2013-04-12 Completed [facility] Conjugate, PCV7 00:00:00 [facility] (Prevnar7) [facility] DTAP 2013-04-12 Completed [facility] 00:00:00 [facility] Polio (IPV/OPV) 2013-04-12 Completed [facility] 00:00:00 [facility] Pneumococcal 7 2013-04-12 Completed [facility] Conjugate, PCV7 00:00:00 [facility] (Prevnar7) [facility] DTAP 2013-04-12 Completed [facility] 00:00:00 [facility] Polio (IPV/OPV) 2013-04-12 Completed [facility] 00:00:00 [facility] Pneumococcal 7 2013-04-12 Completed [facility] Conjugate, PCV7 00:00:00 [facility] (Prevnar7) [facility] DTAP 2013-04-12 Completed [facility] 00:00:00 [facility] Polio (IPV/OPV) 2013-04-12 Completed [facility] 00:00:00 [facility] Pneumococcal 7 2013-04-12 Completed [facility] Conjugate, PCV7 00:00:00 [facility] (Prevnar7) [facility] DTAP 2013-04-12 Completed [facility] 00:00:00 [facility] Polio (IPV/OPV) 2013-04-12 Completed [facility] of 00:00:00 [facility] Pneumococcal 7 2013-04-12 Completed [facility] Conjugate, PCV7 00:00:00 [facility] (Prevnar7) [facility] DTaP, Unspecified 2013-04-12 Completed Univers ity of Formulation 00:00:00 [facility] Pneumococcal 13 2013-04-12 Completed [facility] of Conjugate, PCV13 00:00:00 [facility] (Pre[facility]ar 13) [facility] IPV 2013-04-12 Completed [facility] 00:00:00 [facility] DTAP 2013-04-12 Completed [facility] 00:00:00 [facility] Polio (IPV/OPV) 2013-04-12 Completed [facility] of 00:00:00 [facility] Pneumococcal 7 2013-04-12 Completed [facility] Conjugate, PCV7 00:00:00 [facility] (Prevnar7) [facility] DTaP, Unspecified 2013-04-12 Completed Univers ity of Formulation 00:00:00 [facility] Pneumococcal 13 2013-04-12 Completed [facility] Conjugate, PCV13 00:00:00 [facility] (Pre[facility]ar 13) Branch IPV 2013-04-12 Completed [facility] of 00:00:00 [facility] HEPATITIS A 2013-03-15 Completed [facility] 00:00:00 [facility] Hep B, Adol or Pedi 2013-03-15 Completed Unive rsity of Dosage 00:00:00 [facility] Meningococcal 2013-03-15 Completed [facility] Polysaccharide 00:00:00 [place] [facility] (groups A, C, Y and Branc h W-135) conjugate vaccine (MCV4P) HEPATITIS A 2013-03-15 Completed [facility] 00:00:00 [facility] Hep B, Adol or Pedi 2013-03-15 Completed Unive rsity of Dosage 00:00:00 [facility] Meningococcal 2013-03-15 Completed [facility] Polysaccharide 00:00:00 [place] [facility] (groups A, C, Y and Branc h W-135) conjugate vaccine (MCV4P) HEPATITIS A 2013-03-15 Completed [facility] 00:00:00 [facility] Hep B, Adol or Pedi 2013-03-15 Completed Unive rsity of Dosage 00:00:00 [facility] Meningococcal 2013-03-15 Completed [facility] Polysaccharide 00:00:00 [place] [facility] (groups A, C, Y and Branc h W-135) conjugate vaccine (MCV4P) HEPATITIS A 2013-03-15 Completed [facility] 00:00:00 [facility] Hep B, Adol or Pedi 2013-03-15 Completed Unive rsity of Dosage 00:00:00 [facility] Meningococcal 2013-03-15 Completed [facility] Polysaccharide 00:00:00 [place] [facility] (groups A, C, Y and Branc h W-135) conjugate vaccine (MCV4P) HEPATITIS A 2013-03-15 Completed [facility] 00:00:00 [facility] Hep B, Adol or Pedi 2013-03-15 Completed Unive rsity of Dosage 00:00:00 [facility] Meningococcal 2013-03-15 Completed [facility] Polysaccharide 00:00:00 [place] [facility] (groups A, C, Y and Branc h W-135) conjugate vaccine (MCV4P) HEPATITIS A 2013-03-15 Completed [facility] 00:00:00 [facility] Hep B, Adol or Pedi 2013-03-15 Completed Unive rsity of Dosage 00:00:00 [facility] Meningococcal 2013-03-15 Completed [facility] Polysaccharide 00:00:00 [place] [facility] (groups A, C, Y and Branc h W-135) conjugate vaccine (MCV4P) HEPATITIS A 2013-03-15 Completed [facility] 00:00:00 [facility] Hep B, Adol or Pedi 2013-03-15 Completed Unive rsity of Dosage 00:00:00 [facility] Meningococcal 2013-03-15 Completed [facility] Polysaccharide 00:00:00 [place] [facility] (groups A, C, Y and Branc h W-135) conjugate vaccine (MCV4P) HEPATITIS A 2013-03-15 Completed [facility] 00:00:00 [facility] Hep B, Adol or Pedi 2013-03-15 Completed Unive rsity of Dosage 00:00:00 [facility] Meningococcal 2013-03-15 Completed [facility] Polysaccharide 00:00:00 [place] [facility] (groups A, C, Y and Branc h W-135) conjugate vaccine (MCV4P) HEPATITIS A 2013-03-15 Completed [facility] 00:00:00 [facility] Hep B, Adol or Pedi 2013-03-15 Completed Unive rsity of Dosage 00:00:00 [facility] Meningococcal 2013-03-15 Completed [facility] Polysaccharide 00:00:00 [place] [facility] (groups A, C, Y and Branc h W-135) conjugate vaccine (MCV4P) HEPATITIS A 2013-03-15 Completed [facility] 00:00:00 [facility] Hep B, Adol or Pedi 2013-03-15 Completed Unive rsity of Dosage 00:00:00 [facility] Meningococcal 2013-03-15 Completed [facility] Polysaccharide 00:00:00 [place] [facility] (groups A, C, Y and Branc h W-135) conjugate vaccine (MCV4P) HEPATITIS A 2013-03-15 Completed [facility] 00:00:00 [facility] Hep B, Adol or Pedi 2013-03-15 Completed Unive rsity of Dosage 00:00:00 [facility] Meningococcal 2013-03-15 Completed [facility] Polysaccharide 00:00:00 [place] [facility] (groups A, C, Y and Branc h W-135) conjugate vaccine (MCV4P) HEPATITIS A 2013-03-15 Completed [facility] 00:00:00 [facility] Hep B, Adol or Pedi 2013-03-15 Completed Unive rsity of Dosage 00:00:00 [facility] Meningococcal 2013-03-15 Completed [facility] Polysaccharide 00:00:00 [place] [facility] (groups A, C, Y and Branc h W-135) conjugate vaccine (MCV4P) HEPATITIS A 2013-03-15 Completed [facility] 00:00:00 [facility] Hep B, Adol or Pedi 2013-03-15 Completed Unive rsity of Dosage 00:00:00 [facility] Meningococcal 2013-03-15 Completed [facility] Polysaccharide 00:00:00 [place] [facility] (groups A, C, Y and Branc h W-135) conjugate vaccine (MCV4P) HEPATITIS A 2013-03-15 Completed [facility] 00:00:00 [facility] Hep B, Adol or Pedi 2013-03-15 Completed Unive rsity of Dosage 00:00:00 [facility] Meningococcal 2013-03-15 Completed [facility] Polysaccharide 00:00:00 [place] [facility] (groups A, C, Y and Branc h W-135) conjugate vaccine (MCV4P) HEPATITIS A 2013-03-15 Completed [facility] 00:00:00 [facility] Hep B, Adol or Pedi 2013-03-15 Completed Unive rsity of Dosage 00:00:00 [facility] Meningococcal 2013-03-15 Completed [facility] Polysaccharide 00:00:00 [place] [facility] (groups A, C, Y and Branc h W-135) conjugate vaccine (MCV4P) HEPATITIS A 2013-03-15 Completed [facility] 00:00:00 [facility] Hep B, Adol or Pedi 2013-03-15 Completed Unive rsity of Dosage 00:00:00 [facility] Meningococcal 2013-03-15 Completed [facility] Polysaccharide 00:00:00 [place] [facility] (groups A, C, Y and Branc h W-135) conjugate vaccine (MCV4P) HEPATITIS A 2013-03-15 Completed [facility] 00:00:00 [facility] Hep B, Adol or Pedi 2013-03-15 Completed Unive rsity of Dosage 00:00:00 [facility] Meningococcal 2013-03-15 Completed [facility] Polysaccharide 00:00:00 [place] [facility] (groups A, C, Y and Branc h W-135) conjugate vaccine (MCV4P) HEPATITIS A 2013-03-15 Completed [facility] 00:00:00 [facility] Hep B, Adol or Pedi 2013-03-15 Completed Unive rsity of Dosage 00:00:00 [facility] Meningococcal 2013-03-15 Completed [facility] Polysaccharide 00:00:00 [place] [facility] (groups A, C, Y and Branc h W-135) conjugate vaccine (MCV4P) HEPATITIS A 2013-03-15 Completed [facility] 00:00:00 [facility] Hep B, Adol or Pedi 2013-03-15 Completed Unive rsity of Dosage 00:00:00 [facility] Meningococcal 2013-03-15 Completed [facility] Polysaccharide 00:00:00 [place] [facility] (groups A, C, Y and Branc h W-135) conjugate vaccine (MCV4P) HEPATITIS A 2013-03-15 Completed [facility] 00:00:00 [facility] Hep B, Adol or Pedi 2013-03-15 Completed Unive rsity of Dosage 00:00:00 [facility] Meningococcal 2013-03-15 Completed [facility] Polysaccharide 00:00:00 [place] [facility] (groups A, C, Y and Branc h W-135) conjugate vaccine (MCV4P) HEPATITIS A 2013-03-15 Completed [facility] 00:00:00 [facility] Hep B, Adol or Pedi 2013-03-15 Completed Unive rsity of Dosage 00:00:00 [facility] Meningococcal 2013-03-15 Completed [facility] Polysaccharide 00:00:00 [place] [facility] (groups A, C, Y and Branc h W-135) conjugate vaccine (MCV4P) HEPATITIS A 2013-03-15 Completed [facility] 00:00:00 [facility] Hep B, Adol or Pedi 2013-03-15 Completed Unive rsity of Dosage 00:00:00 [facility] Meningococcal 2013-03-15 Completed [facility] Polysaccharide 00:00:00 [place] [facility] (groups A, C, Y and Branc h W-135) conjugate vaccine (MCV4P) HEPATITIS A 2013-03-15 Completed [facility] 00:00:00 [facility] Hep B, Adol or Pedi 2013-03-15 Completed Unive rsity of Dosage 00:00:00 [facility] Meningococcal 2013-03-15 Completed [facility] Polysaccharide 00:00:00 [place] [facility] (groups A, C, Y and Branc h W-135) conjugate vaccine (MCV4P) HEPATITIS A 2013-03-15 Completed [facility] 00:00:00 [facility] Hep B, Adol or Pedi 2013-03-15 Completed Unive rsity of Dosage 00:00:00 [facility] Meningococcal 2013-03-15 Completed [facility] Polysaccharide 00:00:00 [place] [facility] (groups A, C, Y and Branc h W-135) conjugate vaccine (MCV4P) HEPATITIS A 2013-03-15 Completed [facility] 00:00:00 [facility] Hep B, Adol or Pedi 2013-03-15 Completed Unive rsity of Dosage 00:00:00 [facility] Meningococcal 2013-03-15 Completed [facility] Polysaccharide 00:00:00 [place] [facility] (groups A, C, Y and Branc h W-135) conjugate vaccine (MCV4P) HEPATITIS A 2013-03-15 Completed [facility] 00:00:00 [facility] Hep B, Adol or Pedi 2013-03-15 Completed Unive rsity of Dosage 00:00:00 [facility] Meningococcal 2013-03-15 Completed [facility] Polysaccharide 00:00:00 [place] [facility] (groups A, C, Y and Branc h W-135) conjugate vaccine (MCV4P) HEPATITIS A 2013-03-15 Completed [facility] 00:00:00 [facility] Hep B, Adol or Pedi 2013-03-15 Completed Unive rsity of Dosage 00:00:00 [facility] Meningococcal 2013-03-15 Completed [facility] Polysaccharide 00:00:00 [place] [facility] (groups A, C, Y and Branc h W-135) conjugate vaccine (MCV4P) HEPATITIS A 2013-03-15 Completed [facility] 00:00:00 [facility] Hep B, Adol or Pedi 2013-03-15 Completed Unive rsity of Dosage 00:00:00 [facility] Meningococcal 2013-03-15 Completed [facility] Polysaccharide 00:00:00 [place] [facility] (groups A, C, Y and Branc h W-135) conjugate vaccine (MCV4P) HEPATITIS A 2013-03-15 Completed [facility] 00:00:00 [facility] Hep B, Adol or Pedi 2013-03-15 Completed [facility] rsity of Dosage 00:00:00 [facility] Meningococcal 2013-03-15 Completed [facility] Polysaccharide 00:00:00 [place] [facility] (groups A, C, Y and Branc h W-135) conjugate vaccine (MCV4P) HEPATITIS A 2013-03-15 Completed [facility] 00:00:00 [facility] Hep B, Adol or Pedi 2013-03-15 Completed Unive rsity of Dosage 00:00:00 [facility] Meningococcal 2013-03-15 Completed [facility] Polysaccharide 00:00:00 [place] [facility] (groups A, C, Y and Branc h W-135) conjugate vaccine (MCV4P) HEPATITIS A 2013-03-15 Completed [facility] 00:00:00 [facility] Hep B, Adol or Pedi 2013-03-15 Completed [facility]ive rs[facility] of Dosage 00:00:00 [facility] Meningococcal 2013-03-15 Completed [facility] Polysaccharide 00:00:00 [place] [facility] (groups A, C, Y and Branc h W-135) conjugate vaccine (MCV4P) HEPATITIS A 2013-03-15 Completed [facility] 00:00:00 [facility] Hep B, Adol or Pedi 2013-03-15 Completed [facility] rs[facility] of Dosage 00:00:00 [facility] Meningococcal 2013-03-15 Completed [facility] Polysaccharide 00:00:00 [place] [facility] (groups A, C, Y and Branc h W-135) conjugate vaccine (MCV4P) HEPATITIS A 2013-03-15 Completed [facility] 00:00:00 [facility] Hep B, Adol or Pedi 2013-03-15 Completed [facility]ive rs[facility] of Dosage 00:00:00 [facility] Meningococcal 2013-03-15 Completed [facility] Polysaccharide 00:00:00 [place] [facility] (groups A, C, Y and Branc h W-135) conjugate vaccine (MCV4P) HEPATITIS A 2013-03-15 Completed [facility] 00:00:00 [facility] Hep B, Adol or Pedi 2013-03-15 Completed [facility]ive rsity of Dosage 00:00:00 [facility] Meningococcal 2013-03-15 Completed [facility] Polysaccharide 00:00:00 [place] [facility] (groups A, C, Y and Branc h W-135) conjugate vaccine (MCV4P) HEPATITIS A 2013-03-15 Completed [facility] 00:00:00 [facility] Hep B, Adol or Pedi 2013-03-15 Completed [facility] rs[facility] of Dosage 00:00:00 [facility] Meningococcal 2013-03-15 Completed [facility] Polysaccharide 00:00:00 [place] [facility] (groups A, C, Y and Branc h W-135) conjugate vaccine (MCV4P) HEPATITIS A 2013-03-15 Completed [facility] 00:00:00 [facility] Hep B, Adol or Pedi 2013-03-15 Completed [facility] of Dosage 00:00:00 [facility] Meningococcal 2013-03-15 Completed [facility] Polysaccharide 00:00:00 [place] [facility] (groups A, C, Y and Branc h W-135) conjugate vaccine (MCV4P) HEPATITIS A 2013-03-15 Completed [facility] 00:00:00 [facility] Hep B, Adol or Pedi 2013-03-15 Completed [facility]ity of Dosage 00:00:00 [facility] Meningococcal 2013-03-15 Completed [facility] Polysaccharide 00:00:00 [place] [facility] (groups A, C, Y and Branc h W-135) conjugate vaccine (MCV4P) HEPATITIS A 2013-03-15 Completed University of 00:00:00 [facility] Hep B, Adol or Pedi 2013-03-15 Completed [facility] of Dosage 00:00:00 [facility] Meningococcal 2013-03-15 Completed [facility] Polysaccharide 00:00:00 [place] [facility] (groups A, C, Y and Branc h W-135) conjugate vaccine (MCV4P) HEPATITIS A 2013-03-15 Completed [facility] of 00:00:00 [facility] Hep B, Adol or Pedi 2013-03-15 Completed [facility] of Dosage 00:00:00 [facility] Meningococcal 2013-03-15 Completed University of Polysaccharide 00:00:00 [facility] florencio (groups A, C, Y and Branc h W-135) conjugate vaccine (MCV4P) HEPA,NOS 2013-03-15 Completed [facility] of 00:00:00 [facility] HEPATITIS A 2013-03-15 Completed [facility] of 00:00:00 [facility] Hep B, Adol or Pedi 2013-03-15 Completed [facility]ive rsity of Dosage 00:00:00 [facility] Meningococcal 2013-03-15 Completed University of Polysaccharide 00:00:00 [facility] florencio (groups A, C, Y and Branc h W-135) conjugate vaccine (MCV4P) HEPA,NOS 2013-03-15 Completed University of 00:00:00 [facility] Pneumococcal 13 2013-01-24 Completed [facility]it y of Conjugate, PCV13 00:00:00 [facility] (Pre[facility]ar 13) Branch HIB 4 Dose Schedule 2013-01-24 Completed [facility]ive rsity of 00:00:00 [facility] Hep B, Dtap, Polio 2013-01-24 Completed Univer sity of 00:00:00 [facility] Pneumococcal 13 2013-01-24 Completed Universit y of Conjugate, PCV13 00:00:00 [facility] (Prevnar 13) Branch HIB 4 Dose Schedule 2013-01-24 Completed [facility] rsity of 00:00:00 [facility] Hep B, Dtap, Polio 2013-01-24 Completed Univer sity of 00:00:00 [facility] Pneumococcal 13 2013-01-24 Completed [facility]it [facility] of Conjugate, PCV13 00:00:00 [facility] (Prevnar 13) Branch HIB 4 Dose Schedule 2013-01-24 Completed [facility]ive rsity of 00:00:00 [facility] Hep B, Dtap, Polio 2013-01-24 Completed Univer sity of 00:00:00 [facility] Pneumococcal 13 2013-01-24 Completed [facility]it [facility] of Conjugate, PCV13 00:00:00 [facility] (Prevnar 13) Branch HIB 4 Dose Schedule 2013-01-24 Completed [facility] rsity of 00:00:00 [facility] Hep B, Dtap, Polio 2013-01-24 Completed [facility]iver [facility]ity of 00:00:00 [facility] Pneumococcal 13 2013-01-24 Completed [facility]it [facility] of Conjugate, PCV13 00:00:00 [facility] (Prevnar 13) Branch HIB 4 Dose Schedule 2013-01-24 Completed [facility] rsity of 00:00:00 [facility] Hep B, Dtap, Polio 2013-01-24 Completed Univer sity of 00:00:00 [facility] Pneumococcal 13 2013-01-24 Completed [facility]it [facility] of Conjugate, PCV13 00:00:00 [facility] (Prevnar 13) Branch HIB 4 Dose Schedule 2013-01-24 Completed [facility] rsity of 00:00:00 [facility] Hep B, Dtap, Polio 2013-01-24 Completed [facility]iver sity of 00:00:00 [facility] Pneumococcal 13 2013-01-24 Completed [facility]it [facility] of Conjugate, PCV13 00:00:00 [facility] (Prevnar 13) Branch HIB 4 Dose Schedule 2013-01-24 Completed [facility] rsity of 00:00:00 [facility] Hep B, Dtap, Polio 2013-01-24 Completed Univer sity of 00:00:00 [facility] Pneumococcal 13 2013-01-24 Completed Universit y of Conjugate, PCV13 00:00:00 [facility] (Prevnar 13) Branch HIB 4 Dose Schedule 2013-01-24 Completed [facility] rsity of 00:00:00 [facility] Hep B, Dtap, Polio 2013-01-24 Completed [facility]iver sity of 00:00:00 [facility] Pneumococcal 13 2013-01-24 Completed [facility]it y of Conjugate, PCV13 00:00:00 [facility] (Prevnar 13) Branch HIB 4 Dose Schedule 2013-01-24 Completed [facility] rs[facility] of 00:00:00 [facility] Hep B, Dtap, Polio 2013-01-24 Completed Univer sity of 00:00:00 [facility] Pneumococcal 13 2013-01-24 Completed [facility]it [facility] of Conjugate, PCV13 00:00:00 [facility] (Prevnar 13) Branch HIB 4 Dose Schedule 2013-01-24 Completed [facility] of 00:00:00 [facility] Hep B, Dtap, Polio 2013-01-24 Completed [facility]iver sity of 00:00:00 [facility] Pneumococcal 13 2013-01-24 Completed [facility]it [facility] of Conjugate, PCV13 00:00:00 [place] [facility] (Prevnar 13) [facility] HIB 4 Dose Schedule 2013-01-24 Completed [facility]ive rsity of 00:00:00 [facility] Hep B, Dtap, Polio 2013-01-24 Completed [facility]iver sity of 00:00:00 [facility] Pneumococcal 13 2013-01-24 Completed [facility]it [facility] of Conjugate, PCV13 00:00:00 [place] [facility] (Prevnar 13) Branch HIB 4 Dose Schedule 2013-01-24 Completed [facility]ive rsity of 00:00:00 [facility] Hep B, Dtap, Polio 2013-01-24 Completed [facility]iver sity of 00:00:00 [facility] Pneumococcal 13 2013-01-24 Completed [facility]it [facility] of Conjugate, PCV13 00:00:00 [facility] (Pre[facility]ar 13) Branch HIB 4 Dose Schedule 2013-01-24 Completed [facility] rsity of 00:00:00 [facility] Hep B, Dtap, Polio 2013-01-24 Completed Univer sity of 00:00:00 [facility] Pneumococcal 13 2013-01-24 Completed [facility]it [facility] of Conjugate, PCV13 00:00:00 [facility] (Prevnar 13) Branch HIB 4 Dose Schedule 2013-01-24 Completed [facility] rs[facility] of 00:00:00 [facility] Hep B, Dtap, Polio 2013-01-24 Completed [facility]iver sity of 00:00:00 [facility] Pneumococcal 13 2013-01-24 Completed [facility]it y of Conjugate, PCV13 00:00:00 [facility] (Prevnar 13) Branch HIB 4 Dose Schedule 2013-01-24 Completed [facility] rsity of 00:00:00 [facility] Hep B, Dtap, Polio 2013-01-24 Completed [facility]iver sity of 00:00:00 [facility] Pneumococcal 13 2013-01-24 Completed [facility]it [facility] of Conjugate, PCV13 00:00:00 [place] [facility] (Prevnar 13) [facility] HIB 4 Dose Schedule 2013-01-24 Completed [facility] rs[facility] of 00:00:00 [facility] Hep B, Dtap, Polio 2013-01-24 Completed Univer sity of 00:00:00 [facility] Pneumococcal 13 2013-01-24 Completed [facility]it y of Conjugate, PCV13 00:00:00 [facility] (Pre[facility]ar 13) Branch HIB 4 Dose Schedule 2013-01-24 Completed [facility]ive rsity of 00:00:00 [facility] Hep B, Dtap, Polio 2013-01-24 Completed [facility]iver sity of 00:00:00 [facility] Pneumococcal 13 2013-01-24 Completed [facility]it [facility] of Conjugate, PCV13 00:00:00 [place] [facility] (Prevnar 13) Branch HIB 4 Dose Schedule 2013-01-24 Completed [facility] of 00:00:00 [facility] Hep B, Dtap, Polio 2013-01-24 Completed [facility]iver sity of 00:00:00 [facility] Pneumococcal 13 2013-01-24 Completed [facility]it [facility] of Conjugate, PCV13 00:00:00 [place] [facility] (Prevnar 13) Branch HIB 4 Dose Schedule 2013-01-24 Completed [facility] rsity of 00:00:00 [facility] Hep B, Dtap, Polio 2013-01-24 Completed Univer sity of 00:00:00 [facility] Pneumococcal 13 2013-01-24 Completed [facility]it y of Conjugate, PCV13 00:00:00 [place] [facility] (Prevnar 13) Branch HIB 4 Dose Schedule 2013-01-24 Completed [facility]ive rsity of 00:00:00 [facility] Hep B, Dtap, Polio 2013-01-24 Completed Univer sity of 00:00:00 [facility] Pneumococcal 13 2013-01-24 Completed [facility]it y of Conjugate, PCV13 00:00:00 [place] [facility] (Prevnar 13) Branch HIB 4 Dose Schedule 2013-01-24 Completed [facility]ive rsity of 00:00:00 [facility] Hep B, Dtap, Polio 2013-01-24 Completed Univer sity of 00:00:00 [facility] Pneumococcal 13 2013-01-24 Completed [facility]it y of Conjugate, PCV13 00:00:00 [place] [facility] (Prevnar 13) Branch HIB 4 Dose Schedule 2013-01-24 Completed [facility] rsity of 00:00:00 [facility] Hep B, Dtap, Polio 2013-01-24 Completed Univer sity of 00:00:00 [facility] Pneumococcal 13 2013-01-24 Completed [facility]it y of Conjugate, PCV13 00:00:00 [place] [facility] (Prevnar 13) Branch HIB 4 Dose Schedule 2013-01-24 Completed [facility]ive rsity of 00:00:00 [facility] Hep B, Dtap, Polio 2013-01-24 Completed Univer sity of 00:00:00 [facility] Pneumococcal 13 2013-01-24 Completed [facility]it y of Conjugate, PCV13 00:00:00 [place] [facility] (Prevnar 13) Branch HIB 4 Dose Schedule 2013-01-24 Completed [facility]ive rsity of 00:00:00 [facility] Hep B, Dtap, Polio 2013-01-24 Completed Univer sity of 00:00:00 [facility] Pneumococcal 13 2013-01-24 Completed Universit y of Conjugate, PCV13 00:00:00 [place] [facility] (Prevnar 13) Branch HIB 4 Dose Schedule 2013-01-24 Completed [facility]ive rsity of 00:00:00 [facility] Hep B, Dtap, Polio 2013-01-24 Completed Univer sity of 00:00:00 [facility] Pneumococcal 13 2013-01-24 Completed [facility]it y of Conjugate, PCV13 00:00:00 [facility] (Prevnar 13) Branch HIB 4 Dose Schedule 2013-01-24 Completed [facility]ive rsity of 00:00:00 [facility] Hep B, Dtap, Polio 2013-01-24 Completed Univer sity of 00:00:00 [facility] Pneumococcal 13 2013-01-24 Completed Universit y of Conjugate, PCV13 00:00:00 [facility] (Prevnar 13) Branch HIB 4 Dose Schedule 2013-01-24 Completed [facility]ive rsity of 00:00:00 [facility] Hep B, Dtap, Polio 2013-01-24 Completed Univer sity of 00:00:00 [facility] Pneumococcal 13 2013-01-24 Completed Universit y of Conjugate, PCV13 00:00:00 [facility] (Prevnar 13) Branch HIB 4 Dose Schedule 2013-01-24 Completed [facility]ive rsity of 00:00:00 [facility] Hep B, Dtap, Polio 2013-01-24 Completed Univer sity of 00:00:00 [facility] Pneumococcal 13 2013-01-24 Completed Universit y of Conjugate, PCV13 00:00:00 [place] [facility] (Prevnar 13) Branch HIB 4 Dose Schedule 2013-01-24 Completed [facility]ive [facility]ity of 00:00:00 [facility] Hep B, Dtap, Polio 2013-01-24 Completed Univer sity of 00:00:00 [facility] Pneumococcal 13 2013-01-24 Completed Universit y of Conjugate, PCV13 00:00:00 [place] [facility] (Prevnar 13) Branch HIB 4 Dose Schedule 2013-01-24 Completed [facility]ive rsity of 00:00:00 [facility] Hep B, Dtap, Polio 2013-01-24 Completed Univer sity of 00:00:00 [facility] Pneumococcal 13 2013-01-24 Completed [facility]it y of Conjugate, PCV13 00:00:00 [place] [facility] (Prevnar 13) Branch HIB 4 Dose Schedule 2013-01-24 Completed [facility]ive rsity of 00:00:00 [facility] Hep B, Dtap, Polio 2013-01-24 Completed Univer sity of 00:00:00 [facility] Pneumococcal 13 2013-01-24 Completed Universit y of Conjugate, PCV13 00:00:00 [place] [facility] (Prevnar 13) Branch HIB 4 Dose Schedule 2013-01-24 Completed [facility]ive rsity of 00:00:00 [facility] Hep B, Dtap, Polio 2013-01-24 Completed Univer sity of 00:00:00 [facility] Pneumococcal 13 2013-01-24 Completed [facility]it y of Conjugate, PCV13 00:00:00 [place] [facility] (Prevnar 13) Branch HIB 4 Dose Schedule 2013-01-24 Completed [facility]ive rsity of 00:00:00 [facility] Hep B, Dtap, Polio 2013-01-24 Completed Univer sity of 00:00:00 [facility] Pneumococcal 13 2013-01-24 Completed [facility]it y of Conjugate, PCV13 00:00:00 [place] [facility] (Prevnar 13) Branch HIB 4 Dose Schedule 2013-01-24 Completed [facility]ive rsity of 00:00:00 [facility] Hep B, Dtap, Polio 2013-01-24 Completed Univer sity of 00:00:00 [facility] Pneumococcal 13 2013-01-24 Completed [facility]it y of Conjugate, PCV13 00:00:00 [place] [facility] (Prevnar 13) Branch HIB 4 Dose Schedule 2013-01-24 Completed [facility]ive rsity of 00:00:00 [facility] Hep B, Dtap, Polio 2013-01-24 Completed Univer sity of 00:00:00 [facility] Pneumococcal 13 2013-01-24 Completed Universit y of Conjugate, PCV13 00:00:00 [place] [facility] (Prevnar 13) Branch HIB 4 Dose Schedule 2013-01-24 Completed [facility]ive rsity of 00:00:00 [facility] Hep B, Dtap, Polio 2013-01-24 Completed Univer sity of 00:00:00 [facility] Pneumococcal 13 2013-01-24 Completed [facility]it y of Conjugate, PCV13 00:00:00 [facility] (Prevnar 13) Branch HIB 4 Dose Schedule 2013-01-24 Completed Unive rsity of 00:00:00 [facility] Hep B, Dtap, Polio 2013-01-24 Completed Univer sity of 00:00:00 [facility] Pneumococcal 13 2013-01-24 Completed [facility]it y of Conjugate, PCV13 00:00:00 [facility] (Prevnar 13) Branch HIB 4 Dose Schedule 2013-01-24 Completed [facility]ive rsity of 00:00:00 [facility] Hep B, Dtap, Polio 2013-01-24 Completed Univer [facility]ity of 00:00:00 [facility] Pneumococcal 13 2013-01-24 Completed Universit y of Conjugate, PCV13 00:00:00 [facility] (Prevnar 13) Branch HIB 4 Dose Schedule 2013-01-24 Completed [facility]ive rsity of 00:00:00 [facility] Hep B, Dtap, Polio 2013-01-24 Completed Univer sity of 00:00:00 [facility] Hib-HbOC 2013-01-24 Completed [facility] of 00:00:00 [facility] Pneumococcal 13 2013-01-24 Completed Universit y of Conjugate, PCV13 00:00:00 [facility] (Prevnar 13) Branch HIB 4 Dose Schedule 2013-01-24 Completed [facility]ive rsity of 00:00:00 [facility] Hep B, Dtap, Polio 2013-01-24 Completed Univer [facility]ity of 00:00:00 [facility] Hib-HbOC 2013-01-24 Completed [facility] of 00:00:00 [facility] Pneumococcal 13 2012-06-13 Completed Universit y of Conjugate, PCV13 00:00:00 [facility] (Prevnar 13) Branch Pneumococcal 13 2012-06-13 Completed [facility]it y of Conjugate, PCV13 00:00:00 [facility] (Prevnar 13) Branch DTAP 2012-05-09 Completed [facility] of 00:00:00 [facility] DTaP, Unspecified 2012-05-09 Completed Univers ity of Formulation 00:00:00 [facility] DTAP 2012-05-09 Completed University of 00:00:00 [facility] DTaP, Unspecified 2012-05-09 Completed Univers ity of Formulation 00:00:00 [facility] Flu Whole Virus 2010-07-30 Completed Universit y of 00:00:00 [facility] Flu Whole Virus 2010-07-30 Completed Universit y of 00:00:00 [facility] Flu Trivalent 2009-08-21 Completed University of 00:00:00 [facility] Flu Trivalent 2009-08-21 Completed University of 00:00:00 [facility] DTaP, Unspecified 2006-06-22 Completed Univers ity of Formulation 00:00:00 [facility] HEPATITIS A 2006-06-22 Completed University of 00:00:00 [facility] DTaP, Unspecified 2006-06-22 Completed Univers ity of Formulation 00:00:00 [facility] HEPATITIS A 2006-06-22 Completed University of 00:00:00 [facility] HEPATITIS A 2005-06-21 Completed University of 00:00:00 [facility] Pneumococcal 7 2005-06-21 Completed University of Conjugate, PCV7 00:00:00 [facility] ical (Prevnar7) [place] HEPATITIS A 2005-06-21 Completed University of 00:00:00 [facility] Pneumococcal 7 2005-06-21 Completed University of Conjugate, PCV7 00:00:00 [facility] ical (Prevnar7) Branch HIB 4 Dose Schedule 2005-04-22 Completed Unive rsity of 00:00:00 [facility] MMR 2005-04-22 Completed University of 00:00:00 [facility] IPV 2005-04-22 Completed University of 00:00:00 [facility] HIB 4 Dose Schedule 2005-04-22 Completed Unive rsity of 00:00:00 [facility] MMR 2005-04-22 Completed University of 00:00:00 [facility] IPV 2005-04-22 Completed University of 00:00:00 [facility] DTaP, Unspecified 2005-02-14 Completed Univers ity of Formulation 00:00:00 [facility] HIB 4 Dose Schedule 2005-02-14 Completed Unive rsity of 00:00:00 [facility] MMR 2005-02-14 Completed University of 00:00:00 [facility] IPV 2005-02-14 Completed University of 00:00:00 [facility] Varicella 2005-02-14 Completed University of (varivax)(chicken 00:00:00 [facility] edical pox) Branch DTaP, Unspecified 2005-02-14 Completed Univers ity of Formulation 00:00:00 [facility] HIB 4 Dose Schedule 2005-02-14 Completed Unive rsity of 00:00:00 [facility] MMR 2005-02-14 Completed University of 00:00:00 [facility] IPV 2005-02-14 Completed University of 00:00:00 [facility] Varicella 2005-02-14 Completed University of (varivax)(chicken 00:00:00 [facility] edical pox) Branch DTaP, Unspecified 2001-10-10 Completed Univers ity of Formulation 00:00:00 [facility] Hep B, Adol or Pedi 2001-10-10 Completed Unive rsity of Dosage 00:00:00 [facility] HIB 4 Dose Schedule 2001-10-10 Completed Unive rsity of 00:00:00 [facility] IPV 2001-10-10 Completed University of 00:00:00 [facility] DTaP, Unspecified 2001-10-10 Completed Univers ity of Formulation 00:00:00 [facility] Hep B, Adol or Pedi 2001-10-10 Completed Unive rsity of Dosage 00:00:00 [facility] HIB 4 Dose Schedule 2001-10-10 Completed Unive rsity of 00:00:00 [facility] IPV 2001-10-10 Completed University of 00:00:00 [facility] DTaP, Unspecified 2001-03-01 Completed Univers ity of Formulation 00:00:00 [facility] HIB 4 Dose Schedule 2001-03-01 Completed Unive rsity of 00:00:00 [facility] IPV 2001-03-01 Completed University of 00:00:00 [facility] DTaP, Unspecified 2001-03-01 Completed Univers ity of Formulation 00:00:00 [facility] HIB 4 Dose Schedule 2001-03-01 Completed Unive rsity of 00:00:00 [facility] IPV 2001-03-01 Completed [facility] of 00:00:00 [facility] Hep B, Adol or Pedi 2001-01-31 Completed Unive rsity of Dosage 00:00:00 [facility] Hep B, Adol or Pedi 2001-01-31 Completed Unive rsity of Dosage 00:00:00 [facility] Hep B, Adol or Pedi 2000 Completed Unive rsity of Dosage 00:00:00 [facility] Hep B, Adol or Pedi 2000 Completed Unive rsity of Dosage 00:00:00 [facility] Pneumococcal 13 Unknown Completed Universit y of Conjugate, PCV13 [facility] (Prevnar 13) Branch HIB 4 Dose Schedule Unknown Completed Unive rsity of [facility] Hep B, Dtap, Polio Unknown Completed Univer sity of [facility] HEPATITIS A Unknown Completed [facility] Hep B, Adol or Pedi Unknown Completed Unive rsity of Dosage [facility] Meningococcal Unknown Completed [facility] (groups A, C, Y and Branc h W-135) conjugate vaccine (MCV4P) DTAP Unknown Completed [facility] Polio (IPV/OPV) Unknown Completed Universit y of [facility] Pneumococcal 7 Unknown Completed University of Conjugate, PCV7 [facility] ical (Prevnar7) Branch SARS-COV-2 COVID-19 Unknown Completed Unive rsity of PFIZER VACCINE [facility] Branch SARS-COV-2 COVID-19 Unknown Completed Unive rsity of PFIZER VACCINE [facility] Branch SARS-COV-2 COVID-19 Unknown Completed Unive rsity of PFIZER VACCINE [facility] HEPATITIS A Unknown Completed [facility] Heamophilus Unknown Completed University of Influenza B [facility] DTAP Unknown Completed [facility] DTaP, Unspecified Unknown Completed Univers ity of Formulation [facility] DTaP, Unspecified Unknown Completed Univers ity of Formulation [facility] DTaP, Unspecified Unknown Completed Univers ity of Formulation [facility] DTaP, Unspecified Unknown Completed Univers ity of Formulation [facility] DTaP, Unspecified Unknown Completed Univers ity of Formulation [facility] DTaP, Unspecified Unknown Completed Univers ity of Formulation [facility] Influenza Virus Unknown Completed Universit y of Vaccine Quad .5 mL [facility] 6+ MO Branch (FLUZONE/FLULAVAL/FL UARIX) Flu Trivalent Unknown Completed [facility] Flu Trivalent Unknown Completed [facility] Flu Whole Virus Unknown Completed Universit y [facility] HEP B, Adult Dosage Unknown Completed Unive rsity [facility] Hep B, Adol or Pedi Unknown Completed Unive rsity of Dosage [facility] HEPA,NOS Unknown Completed [facility] HEPATITIS A Unknown Completed [facility] HEPATITIS A Unknown Completed [facility] Hep B, Adol or Pedi Unknown Completed Unive rsity of Dosage [facility] Hep B, Adol or Pedi Unknown Completed Unive rsity of Dosage [facility] Hep B, Adol or Pedi Unknown Completed Unive rsity of Dosage [facility] Hib-HbOC Unknown Completed [facility] HIB 3 Dose Schedule Unknown Completed Unive rsity [facility] HIB 4 Dose Schedule [facility] D[facility] Unknown Completed Unive rsity [facility] HIB 4 Dose Schedule Unknown Completed Unive rsity [facility] HIB 4 Dose Schedule Unknown [facility]9 [facility] Completed [facility] Meningococcal Unknown Completed [facility] (groups A, C, Y and Branc h W-135) conjugate vaccine (MCV4P) MMR Unknown Completed [facility] MMR Unknown Completed [facility] MMR Unknown Completed [facility] Proquad Unknown Completed University of (MMR/VARICELLA) [facility] Branch Pneumococcal 13 Unknown Completed Universit [facility] of Conjugate, PCV13 [facility] (Prevnar 13) Branch Pneumococcal 13 Unknown Completed [facility] of Conjugate, PCV13 [facility] (Prevnar 13) Branch Pneumococcal 13 Unknown Completed [facility] of Conjugate, PCV13 [facility] (Prevnar 13) Branch Pneumococcal 7 Unknown Completed [facility] Conjugate, PCV7 [facility] (Prevnar7) Branch Pneumococcal Unknown Completed [place] [facility] [place] Polysaccharide, [facility] PPSV23 (PNEUMOVAX) Branch IPV Unknown Completed [facility] IPV Unknown Completed [facility] IPV Unknown Completed [facility] IPV Unknown Completed [facility] IPV Unknown Completed [facility] IPV Unknown Completed [facility] IPV Unknown Completed [facility] Varicella Unknown Completed [facility] (varivax)(chicken [place] [facility] pox) [facility] Varicella Unknown Completed [facility] (varivax)(chicken [place] [facility] pox) [facility] Pneumococcal 13 Unknown Completed Univers[facility] of Conjugate, PCV13 [facility] (Prevnar 13) Branch HIB 4 Dose Schedule Unknown Completed Unive rsity of [facility] Hep B, Dtap, Polio Unknown Completed Univer sity [facility] HEPATITIS A Unknown Completed [facility] Hep B, Adol or Pedi Unknown Completed Unive rsity of Dosage [facility] Meningococcal Unknown Completed [facility] (groups A, C, Y and Branc h W-135) conjugate vaccine (MCV4P) DTAP Unknown Completed [facility] Polio (IPV/OPV) Unknown Completed Universit y of [facility] Pneumococcal 7 Unknown Completed University of Conjugate, PCV7 [facility] ical (Prevnar7) Branch SARS-COV-2 COVID-19 Unknown Completed Unive rsity of PFIZER VACCINE [facility] SARS-COV-2 COVID-19 Unknown Completed Unive rsity of PFIZER VACCINE [facility] Branch SARS-COV-2 COVID-19 Unknown Completed Unive rsity of PFIZER VACCINE [facility] Branch HEPATITIS A Unknown Completed [facility] Heamophilus Unknown Completed University of Influenza B [facility] DTAP Unknown Completed [facility] DTaP, Unspecified Unknown Completed Univers ity of Formulation [facility] DTaP, Unspecified Unknown Completed Univers ity of Formulation [facility] DTaP, Unspecified Unknown Completed Univers ity of Formulation [facility] DTaP, Unspecified Unknown Completed Univers ity of Formulation [facility] DTaP, Unspecified Unknown Completed Univers ity of Formulation [facility] DTaP, Unspecified Unknown Completed Univers ity of Formulation [facility] Influenza Virus Unknown Completed Universit y of Vaccine Quad .5 mL [facility] IM 6+ MO Branch (FLUZONE/FLULAVAL/FL UARIX) Flu Trivalent Unknown Completed [facility] Flu Trivalent Unknown Completed [facility] Flu Whole Virus Unknown Completed Universit y of [facility] HEP B, Adult Dosage Unknown Completed Unive rsity of [facility] Hep B, Adol or Pedi Unknown Completed Unive rsity of Dosage [facility] HEPA,NOS Unknown Completed [facility] HEPATITIS A Unknown Completed [facility] HEPATITIS A Unknown Completed [facility] Hep B, Adol or Pedi Unknown Completed Unive rsity of Dosage [facility] Hep B, Adol or Pedi Unknown Completed Unive rsity of Dosage [facility] Hep B, Adol or Pedi Unknown Completed Unive rsity of Dosage [facility] Hib-HbOC Unknown Completed [facility] HIB 3 Dose Schedule [facility] D[facility] 4 Dose Schedule Unknown Completed Unive rsity [facility] HIB 4 Dose Schedule Unknown Completed Unive rsity [facility] HIB 4 Dose Schedule Unknown [facility] HPV9 Unknown Completed [facility] Meningococcal Unknown Completed University of Polysaccharide [facility] florencio (groups A, C, Y and Branc h W-135) conjugate vaccine (MCV4P) MMR Unknown Completed [facility] MMR Unknown Completed [facility] MMR Unknown Completed [facility] Proquad Unknown Completed University of (MMR/VARICELLA) [facility] ical Branch Pneumococcal 13 Unknown Completed Universit y of Conjugate, PCV13 [facility] dical (Prevnar 13) Branch Pneumococcal 13 Unknown Completed Universit y of Conjugate, PCV13 [facility] dical (Prevnar 13) Branch Pneumococcal 13 Unknown Completed Universit y of Conjugate, PCV13 [facility] d[facility] (Prevnar 13) Branch Pneumococcal 7 Unknown Completed University of Conjugate, PCV7 [facility] ical (Prevnar7) Branch Pneumococcal Unknown Completed University o f Polysaccharide, [facility] ical PPSV23 (PNEUMOVAX) Branch IPV Unknown Completed [facility] IPV Unknown Completed [facility] IPV Unknown Completed [facility] IPV Unknown Completed [facility] IPV Unknown Completed [facility] IPV Unknown Completed [facility] IPV Unknown Completed [facility] Varicella Unknown Completed University of (varivax)([facility]icken [place] [facility] pox) Branch Varicella Unknown Completed University (varivax)(chicken [place] [facility] pox) Branch Pneumococcal 13 Unknown Completed Universit y of Conjugate, PCV13 [facility] dical (Prevnar 13) Branch HIB 4 Dose Schedule Unknown [facility], Dtap, Polio Unknown Completed Univer sity [facility] HEPATITIS A Unknown Completed [facility] Hep B, Adol or Pedi Unknown Completed Unive rsity of Dosage [facility] Meningococcal Unknown Completed University [facility] Polysaccharide [place] [facility] florencio (groups A, C, Y and Branc h W-135) conjugate vaccine (MCV4P) DTAP Unknown Completed [facility] Polio (IPV/OPV) Unknown Completed Universit y [facility] Pneumococcal 7 Unknown Completed [facility], PCV7 [facility] ical (Prevnar7) Branch SARS-COV-2 COVID-19 Unknown Completed Unive rsity of PFIZER VACCINE [facility] SARS-COV-2 COVID-19 Unknown Completed Unive rsity of PFIZER VACCINE [facility] SARS-COV-2 COVID-19 Unknown Completed Unive rsity of PFIZER VACCINE [facility] HEPATITIS A Unknown Completed [facility] Heamophilus Unknown Completed [facility] Influenza B [facility] DTAP Unknown Completed [facility] DTaP, Unspecified Unknown Completed Univers ity of Formulation [facility] DTaP, Unspecified Unknown Completed Univers ity of Formulation [facility] DTaP, Unspecified Unknown Completed Univers ity of Formulation [facility] DTaP, Unspecified Unknown Completed Univers ity of Formulation [facility] DTaP, Unspecified Unknown Completed Univers ity of Formulation [facility] DTaP, Unspecified Unknown Completed Univers ity of Formulation [facility] Influenza Virus Unknown Completed Universit y of Vaccine Quad .5 mL [facility] 6+ MO Branch (FLUZONE/FLULAVAL/FL UARIX) Flu Trivalent Unknown Completed [facility] Flu Trivalent Unknown Completed [facility] Flu Whole Virus Unknown Completed Universit y [facility] HEP B, Adult Dosage Unknown Completed Unive rsity [facility] Hep B, Adol or Pedi Unknown Completed Unive rsity of Dosage [facility] HEPA,NOS Unknown Completed [facility] HEPATITIS A Unknown Completed [facility] HEPATITIS A Unknown Completed [facility] Hep B, Adol or Pedi Unknown Completed Unive rsity of Dosage [facility] Hep B, Adol or Pedi Unknown Completed Unive rsity of Dosage [facility] Hep B, Adol or Pedi Unknown Completed Unive rsity of Dosage [facility] Hib-HbOC Unknown Completed [facility] HIB 3 Dose Schedule Unknown Completed Unive [facility]ity [facility] HIB 4 Dose Schedule Unknown Completed Unive rsity of [facility] HIB 4 Dose Schedule Unknown Completed Unive rsity [facility] HIB 4 Dose Schedule Unknown Completed [facility] [place] [facility] HIB 4 Dose Schedule Unknown [facility] HPV9 Unknown Completed [facility] Meningococcal Unknown Completed University of Polysaccharide [facility] (groups A, C, Y and Branc h W-135) conjugate vaccine (MCV4P) MMR Unknown Completed [facility] MMR Unknown Completed [facility] MMR Unknown Completed [facility] Proquad Unknown Completed University of (MMR/VARICELLA) [facility] Branch Pneumococcal 13 Unknown Completed Universit y of Conjugate, PCV13 [facility] dical (Prevnar 13) Branch Pneumococcal 13 Unknown Completed Universit y of Conjugate, PCV13 [facility] dical (Prevnar 13) Branch Pneumococcal 13 Unknown Completed Universit y of Conjugate, PCV13 [facility] dical (Prevnar 13) Branch Pneumococcal 7 Unknown Completed University of Conjugate, PCV7 [facility] ical (Prevnar7) Branch Pneumococcal Unknown Completed [place] Polysaccharide, [facility] PPSV23 (PNEUMOVAX) Branch IPV Unknown Completed [facility] IPV Unknown Completed [facility] IPV Unknown Completed [facility] IPV Unknown Completed [facility] IPV Unknown Completed [facility] IPV Unknown Completed [facility] IPV Unknown Completed [facility] Varicella Unknown Completed [facility] of (varivax)(chicken [place] [facility] pox) Branch Varicella Unknown Completed University (varivax)(chicken [place] [facility] pox) Branch Pneumococcal 13 Unknown Completed Universit y of Conjugate, PCV13 [facility] dical (Prevnar 13) Branch HIB 4 Dose Schedule Unknown Completed Unive rsity [facility] Hep B, Dtap, Polio Unknown Completed Univer sity [facility] HEPATITIS A Unknown Completed [facility] Hep B, Adol or Pedi Unknown Completed Unive rsity of Dosage [facility] Meningococcal Unknown Completed University Polysaccharide [facility] (groups A, C, Y and Branc h W-135) conjugate vaccine (MCV4P) DTAP Unknown Completed [facility] Polio (IPV/OPV) Unknown Completed [facility]it [facility] Pneumococcal 7 Unknown Completed University of Conjugate, PCV7 [facility] (Prevnar7) Branch SARS-COV-2 COVID-19 Unknown Completed Unive rsity of PFIZER VACCINE [facility] florencio Branch SARS-COV-2 COVID-19 Unknown Completed Unive rsity of PFIZER VACCINE [facility] SARS-COV-2 COVID-19 Unknown Completed Unive rsity of PFIZER VACCINE [facility] HEPATITIS A Unknown Completed [facility] Heamophilus Unknown Completed [facility] Influenza B [facility] DTAP Unknown Completed [facility] DTaP, Unspecified Unknown Completed Univers ity of Formulation [facility] DTaP, Unspecified Unknown Completed Univers ity of Formulation [facility] DTaP, Unspecified Unknown Completed Univers ity of Formulation [facility] DTaP, Unspecified Unknown Completed Univers ity of Formulation [facility] DTaP, Unspecified Unknown Completed Univers ity of Formulation [facility] DTaP, Unspecified Unknown Completed Univers ity of Formulation [facility] Influenza Virus Unknown Completed Universit y of Vaccine Quad .5 mL [facility] 6+ MO Branch (FLUZONE/FLULAVAL/FL UARIX) Flu Trivalent Unknown Completed [facility] Flu Trivalent Unknown Completed [facility] Flu Whole Virus Unknown Completed Universit y of [facility] HEP B, Adult Dosage Unknown [facility] Hep B, Adol or Pedi Unknown Completed Unive rsity of Dosage [facility] HEPA,NOS Unknown Completed [facility] HEPATITIS A Unknown Completed [facility] HEPATITIS A Unknown Completed [facility] Hep B, Adol or Pedi Unknown Completed Unive rsity of Dosage [facility] Hep B, Adol or Pedi Unknown Completed Unive rsity of Dosage [facility] Hep B, Adol or Pedi Unknown Completed Unive rsity of Dosage [facility] Hib-HbOC Unknown Completed [facility] HIB 3 Dose Schedule Unknown [facility] 4 Dose Schedule Unknown [facility] HIB 4 Dose Schedule Unknown [facility] HIB 4 Dose Schedule Unknown [facility] HIB 4 Dose Schedule Unknown Com[facility] HPV9 Unknown Completed [facility] Meningococcal Unknown Completed [facility] (groups A, C, Y and Branc h W-135) conjugate vaccine (MCV4P) MMR Unknown Completed [facility] MMR Unknown Completed [facility] MMR Unknown Completed [facility] Proquad Unknown Completed [facility] (MMR/VARICELLA) [place] [facility] Pneumococcal 13 Unknown Completed Universit y of Conjugate, PCV13 [facility] dical (Prevnar 13) Branch Pneumococcal 13 Unknown Completed Universit y of Conjugate, PCV13 [facility] dical (Prevnar 13) Branch Pneumococcal 13 Unknown Completed Universit y of Conjugate, PCV13 [facility] dical (Prevnar 13) Branch Pneumococcal 7 Unknown Completed University of Conjugate, PCV7 [facility] ical (Prevnar7) Branch Pneumococcal Unknown Completed [place] [facility] Polysaccharide, [facility] PPSV23 (PNEUMOVAX) Branch IPV Unknown Completed [facility] IPV Unknown Completed [facility] IPV Unknown Completed [facility] IPV Unknown Completed [facility] IPV Unknown Completed [facility] IPV Unknown Completed [facility] IPV Unknown Completed [facility] Varicella Unknown Completed University (varivax)(chicken [place] [facility] pox) Branch Varicella Unknown Completed University (varivax)(chicken [place] [facility] pox) Branch TDAP Unknown Completed [facility] HIB PRP-D,booster Unknown Completed Univers ity [facility] Pneumococcal 13 Unknown Completed Universit y of Conjugate, PCV13 [facility] dical (Prevnar 13) Branch HIB 4 Dose Schedule Unknown Completed Unive rsity [facility] Hep B, Dtap, Polio Unknown Completed Univer sity [facility] HEPATITIS A Unknown Completed [facility] Hep B, Adol or Pedi Unknown Completed Unive rsity of Dosage [facility] Meningococcal Unknown Completed [facility] (groups A, C, Y and Branc h W-135) conjugate vaccine (MCV4P) DTAP Unknown Completed [facility] Polio (IPV/OPV) Unknown Completed Universit y of [facility] Pneumococcal 7 Unknown Completed University of Conjugate, PCV7 [facility] ical (Prevnar7) Branch SARS-COV-2 COVID-19 Unknown Completed Unive rsity of PFIZER VACCINE [facility] Branch SARS-COV-2 COVID-19 Unknown Completed Unive rsity of PFIZER VACCINE [facility] Branch SARS-COV-2 COVID-19 Unknown Completed Unive rsity of PFIZER VACCINE [facility] HEPATITIS A Unknown Completed [facility] Heamophilus Unknown Completed University of Influenza B [facility] DTAP Unknown Completed [facility] DTaP, Unspecified Unknown Completed Univers ity of Formulation [facility] DTaP, Unspecified Unknown Completed Univers ity of Formulation [facility] DTaP, Unspecified Unknown Completed Univers ity of Formulation [facility] DTaP, Unspecified Unknown Completed Univers ity of Formulation [facility] DTaP, Unspecified Unknown Completed Univers ity of Formulation [facility] DTaP, Unspecified Unknown Completed Univers ity of Formulation [facility] Influenza Virus Unknown Completed Universit y of Vaccine Quad .5 mL [facility] 6+ MO Branch (FLUZONE/FLULAVAL/FL UARIX) Flu Trivalent Unknown Completed [facility] Flu Trivalent Unknown Completed [facility] Flu Whole Virus Unknown Completed Universit y of [facility] HEP B, Adult Dosage Unknown Completed Unive rsity [facility] Hep B, Adol or Pedi Unknown Completed Unive rsity of Dosage [facility] HEPA,NOS Unknown Completed [facility] HEPATITIS A Unknown Completed [facility] HEPATITIS A Unknown Completed [facility] Hep B, Adol or Pedi Unknown Completed Unive rsity of Dosage [facility] Hep B, Adol or Pedi Unknown Completed Unive rsity of Dosage [facility] Hep B, Adol or Pedi Unknown Completed Unive rsity of Dosage [facility] Hib-HbOC Unknown Completed [facility] HIB 3 Dose Schedule Unknown Completed Unive rsity [facility] HIB 4 Dose Schedule Unknown Completed Unive rsity [facility] HIB 4 Dose Schedule Unknown [facility] 4 Dose Schedule Unknown Completed Unive [facility]ity [facility] HIB 4 Dose Schedule Unknown [facility] HPV9 Unknown Completed [facility] Meningococcal Unknown Completed [facility] (groups A, C, Y and Branc h W-135) conjugate vaccine (MCV4P) MMR Unknown Completed [facility] MMR Unknown Completed [facility] MMR Unknown Completed [facility] Proquad Unknown Completed University of (MMR/VARICELLA) [facility] Branch Pneumococcal 13 Unknown Completed Universit y of Conjugate, PCV13 [facility] dical (Prevnar 13) Branch Pneumococcal 13 Unknown Completed Universit y of Conjugate, PCV13 [facility] dical (Prevnar 13) Branch Pneumococcal 13 Unknown Completed Universit y of Conjugate, PCV13 [facility] dical (Prevnar 13) Branch Pneumococcal 7 Unknown Completed University Conjugate, PCV7 [place] [facility] (Prevnar7) Branch Pneumococcal Unknown Completed [facility] Polysaccharide, [facility] PPSV23 (PNEUMOVAX) Branch IPV Unknown Completed [facility] IPV Unknown Completed [facility] IPV Unknown Completed [facility] IPV Unknown Completed [facility] IPV Unknown Completed [facility] IPV Unknown Completed [facility] IPV Unknown Completed [facility] Varicella Unknown Completed University (varivax)(chicken [place] [facility] pox) Branch Varicella Unknown Completed University (varivax)(chicken [place] [facility] pox) Branch TDAP Unknown Completed [facility] HIB PRP-D,booster Unknown Completed Univers [facility] Pneumococcal 13 Unknown Completed Universit y of Conjugate, PCV13 [facility] dical (Prevnar 13) Branch HIB 4 Dose Schedule Unknown Completed Unive rsity [facility] Hep B, Dtap, Polio Unknown Completed Univer [facility]ity [facility] HEPATITIS A Unknown Completed [facility] Hep B, Adol or Pedi Unknown Completed Unive rsity of Dosage [facility] Meningococcal Unknown Completed University of Polysaccharide [facility] (groups A, C, Y and Branc h W-135) conjugate vaccine (MCV4P) DTAP Unknown Completed [facility] Polio (IPV/OPV) Unknown Completed [facility]it [facility] Pneumococcal 7 Unknown Completed University of Conjugate, PCV7 [facility] ical (Prevnar7) Branch SARS-COV-2 COVID-19 Unknown Completed Unive rsity of PFIZER VACCINE [facility] SARS-COV-2 COVID-19 Unknown Completed Unive rsity of PFIZER VACCINE [facility] SARS-COV-2 COVID-19 Unknown Completed Unive rsity of PFIZER VACCINE [facility] Branch HEPATITIS A Unknown Completed [facility] Heamophilus Unknown Completed University of Influenza B [facility] DTAP Unknown Completed [facility] DTaP, Unspecified Unknown Completed Univers ity of Formulation [facility] DTaP, Unspecified Unknown Completed Univers ity of Formulation [facility] DTaP, Unspecified Unknown Completed Univers ity of Formulation [facility] DTaP, Unspecified Unknown Completed Univers ity of Formulation [facility] DTaP, Unspecified Unknown Completed Univers ity of Formulation [facility] DTaP, Unspecified Unknown Completed Univers ity of Formulation [facility] Influenza Virus Unknown Completed Universit y of Vaccine Quad .5 mL [place] [facility] IM 6+ MO Branch (FLUZONE/FLULAVAL/FL UARIX) Flu Trivalent Unknown Completed [facility] Flu Trivalent Unknown Completed [facility] Flu Whole Virus Unknown Completed Universit y of [facility] HEP B, Adult Dosage Unknown Completed Unive [facility]ity [facility] Hep B, Adol or Pedi Unknown Completed Unive rsity of Dosage [facility] HEPA,NOS Unknown Completed [facility] HEPATITIS A Unknown Completed [facility] HEPATITIS A Unknown Completed [facility] Hep B, Adol or Pedi Unknown Completed Unive rsity of Dosage [facility] Hep B, Adol or Pedi Unknown Completed Unive rsity of Dosage [facility] Hep B, Adol or Pedi Unknown Completed Unive rsity of Dosage [facility] Hib-HbOC Unknown Completed [facility] HIB 3 Dose Schedule Unknown Completed Unive rsity [facility] HIB 4 Dose Schedule Unknown Completed Unive rsity [facility] HIB 4 Dose Schedule Unknown [facility] Dose [facility] HIB 4 Dose Schedule Unknown [facility] HPV9 Unknown Completed [facility] Meningococcal Unknown Completed [facility] (groups A, C, Y and Branc h W-135) conjugate vaccine (MCV4P) MMR Unknown Completed [facility] MMR Unknown Completed [facility] MMR Unknown Completed [facility] Proquad Unknown Completed University of (MMR/VARICELLA) [facility] Branch Pneumococcal 13 Unknown Completed Universit y of Conjugate, PCV13 [facility] dical (Prevnar 13) Branch Pneumococcal 13 Unknown Completed Universit y of Conjugate, PCV13 [facility] dical (Prevnar 13) Branch Pneumococcal 13 Unknown Completed Universit y of Conjugate, PCV13 [facility] dical (Prevnar 13) Branch Pneumococcal 7 Unknown Completed University of Conjugate, PCV7 [facility] (Prevnar7) Branch Pneumococcal Unknown Completed University o f Polysaccharide, [facility] PPSV23 (PNEUMOVAX) Branch IPV Unknown Completed [facility] IPV Unknown Completed [facility] IPV Unknown Completed [facility] IPV Unknown Completed [facility] IPV Unknown Completed [facility] IPV Unknown Completed [facility] IPV Unknown Completed [facility] Varicella Unknown Completed [facility] ([facility] [place] [facility] Varicella Unknown Completed [facility] ([facility] [place] [facility] p[facility] TDAP Unknown Completed [facility] HIB PRP-D,booster Unknown Completed Univers [facility] Pneumococcal 13 Unknown Completed Univers[facility] of Conjugate, PCV13 [facility] dical (Prevnar 13) Branch HIB 4 Dose Schedule Unknown Completed Unive rsity [facility] Hep B, Dtap, Polio Unknown Completed Univer sity [facility] HEPATITIS A Unknown Completed [facility] Hep B, Adol or Pedi Unknown Completed Unive rsity of Dosage [facility] Meningococcal Unknown Completed [facility] (groups A, C, Y and Branc h W-135) conjugate vaccine (MCV4P) DTAP Unknown Completed [facility] Polio (IPV/OPV) Unknown Completed [facility]it [facility] Pneumococcal 7 Unknown Completed University of Conjugate, PCV7 [facility] ical (Prevnar7) Branch SARS-COV-2 COVID-19 Unknown Completed Unive rsity of PFIZER VACCINE [facility] Branch SARS-COV-2 COVID-19 Unknown Completed Unive rsity of PFIZER VACCINE [facility] SARS-COV-2 COVID-19 Unknown Completed Unive rsity of PFIZER VACCINE [facility] Branch HEPATITIS A Unknown Completed [facility] Heamophilus Unknown Completed [facility] of Influenza B [facility] DTAP Unknown Completed [facility] DTaP, Unspecified Unknown Completed Univers ity of Formulation [facility] DTaP, Unspecified Unknown Completed Univers ity of Formulation [facility] DTaP, Unspecified Unknown Completed Univers ity of Formulation [facility] DTaP, Unspecified Unknown Completed Univers ity of Formulation [facility] DTaP, Unspecified Unknown Completed Univers ity of Formulation [facility] DTaP, Unspecified Unknown Completed Univers ity of Formulation [facility] Influenza Virus Unknown Completed Universit y of Vaccine Quad .5 mL [facility] 6+ MO Branch (FLUZONE/FLULAVAL/FL UARIX) Flu Trivalent Unknown Completed [facility] Flu Trivalent Unknown Completed [facility] Flu Whole Virus Unknown Completed Universit y of [facility] HEP B, Adult Dosage Unknown Completed Unive rsity [facility] Hep B, Adol or Pedi Unknown Completed Unive rsity of Dosage [facility] HEPA,NOS Unknown Completed [facility] HEPATITIS A Unknown Completed [facility] HEPATITIS A Unknown Completed [facility] Hep B, Adol or Pedi Unknown Completed Unive rsity of Dosage [facility] Hep B, Adol or Pedi Unknown Completed Unive rsity of Dosage [facility] Hep B, Adol or Pedi Unknown Completed Unive rsity of Dosage [facility] Hib-HbOC Unknown Completed [facility] HIB 3 Dose Schedule Unknown Completed Unive rsity [facility] HIB 4 Dose Schedule Unknown Completed Unive rsity [facility] HIB 4 Dose Schedule Unknown Completed Unive rsity [facility] HIB 4 Dose Schedule [facility] D[facility] HPV9 Unknown Completed [facility] Meningococcal Unknown Completed [facility] (groups A, C, Y and Branc h W-135) conjugate vaccine (MCV4P) MMR Unknown Completed [facility] MMR Unknown Completed [facility] MMR Unknown Completed [facility] Proquad Unknown Completed [facility] of (MMR/VARICELLA) [facility] Branch Pneumococcal 13 Unknown Completed [facility] of Conjugate, PCV13 [facility] (Prevnar 13) Branch Pneumococcal 13 Unknown Completed [facility] of Conjugate, PCV13 [facility] (Prevnar 13) Branch Pneumococcal 13 Unknown Completed [facility] of Conjugate, PCV13 [facility] (Prevnar 13) Branch Pneumococcal 7 Unknown Completed University Conjugate, PCV7 [facility] ([facility]7) Branch Pneumococcal Unknown Completed [place] [facility] Polysaccharide, [facility] PPSV23 (PNEUMOVAX) Branch IPV Unknown Completed [facility] IPV Unknown Completed [facility] IPV Unknown Completed [facility] IPV Unknown Completed [facility] IPV Unknown Completed [facility] IPV Unknown Completed [facility] IPV Unknown Completed [facility] Varicella Unknown Completed [facility] (varivax[facility] [place] [facility] p[facility]) Branch Varicella Unknown Completed [facility] ([facility]ax[facility] [place] [facility] pox) Branch TDAP Unknown Completed [facility] HIB PRP-D,booster Unknown [facility] Pneumococcal 13 Unknown Completed [facility] of Conjugate, PCV13 [facility] (Prevnar 13) Branch HIB 4 Dose Schedule Unknown Completed Unive rsity of [facility] Hep B, Dtap, Polio Unknown Completed Univer sity of [facility] HEPATITIS A Unknown Completed [facility] Hep B, Adol or Pedi Unknown Completed Unive rsity of Dosage [facility] Meningococcal Unknown Completed [facility] (groups A, C, Y and Branc h W-135) conjugate vaccine (MCV4P) DTAP Unknown Completed [facility] Polio (IPV/OPV) Unknown Completed [facility] Pneumococcal [address] [facility] Conjugate, PCV7 [facility] ical (Prevnar7) Branch SARS-COV-2 COVID-19 Unknown Completed Unive rsity of PFIZER VACCINE [facility] Branch SARS-COV-2 COVID-19 Unknown Completed Unive rsity of PFIZER VACCINE [facility] SARS-COV-2 COVID-19 Unknown Completed Unive rsity of PFIZER VACCINE [facility] Branch HEPATITIS A Unknown Completed [facility] Heamophilus Unknown Completed [facility] Influenza B [facility] DTAP Unknown Completed [facility] DTaP, Unspecified Unknown Completed Univers ity of Formulation [facility] DTaP, Unspecified Unknown Completed Univers ity of Formulation [facility] DTaP, Unspecified Unknown Completed Univers ity of Formulation [facility] DTaP, Unspecified Unknown Completed Univers ity of Formulation [facility] DTaP, Unspecified Unknown Completed Univers ity of Formulation [facility] DTaP, Unspecified Unknown Completed Univers ity of Formulation [facility] Influenza Virus Unknown Completed Universit y of Vaccine Quad .5 mL [facility] 6+ MO Branch (FLUZONE/FLULAVAL/FL UARIX) Flu Trivalent Unknown Completed [facility] Flu Trivalent Unknown Completed [facility] Flu Whole Virus Unknown Completed Universit y of [facility] HEP B, Adult Dosage Unknown Completed Unive rsity of [facility] Hep B, Adol or Pedi Unknown Completed Unive rsity of Dosage [facility] HEPA,NOS Unknown Completed [facility] HEPATITIS A Unknown Completed [facility] HEPATITIS A Unknown Completed [facility] Hep B, Adol or Pedi Unknown Completed Unive rsity of Dosage [facility] Hep B, Adol or Pedi Unknown Completed Unive rsity of Dosage [facility] Hep B, Adol or Pedi Unknown Completed Unive rsity of Dosage [facility] Hib-HbOC Unknown Completed [facility] HIB 3 Dose Schedule Unknown [facility] Dose [facility] 4 Dose Schedule Unknown [facility] HIB 4 Dose Schedule Unknown [facility] HIB 4 Dose Schedule Unknown [facility] HPV9 Unknown Completed [facility] Meningococcal Unknown Completed [facility] of Polysaccharide [facility] florencio (groups A, C, Y and Branc h W-135) conjugate vaccine (MCV4P) MMR Unknown Completed [facility] MMR Unknown Completed [facility] MMR Unknown Completed [facility] Proquad Unknown Completed [facility] (MMR/VARICELLA) [facility] Pneumococcal 13 Unknown Completed [facility] of Conjugate, PCV13 [facility] (Prevnar 13) Branch Pneumococcal 13 Unknown Completed [facility] of Conjugate, PCV13 [facility] (Prevnar 13) Branch Pneumococcal 13 Unknown Completed [facility] of Conjugate, PCV13 [facility] (Prevnar 13) Branch Pneumococcal 7 Unknown Completed University Conjugate, PCV7 [facility] (Prevnar7) Branch Pneumococcal Unknown Completed [place] [facility] Polysaccharide, [facility] PPSV23 (PNEUMOVAX) Branch IPV Unknown Completed [facility] IPV Unknown Completed [facility] IPV Unknown Completed [facility] IPV Unknown Completed [facility] IPV Unknown Completed [facility] IPV Unknown Completed [facility] IPV Unknown Completed [facility] Varicella Unknown Completed [facility] (varivax)([facility] [place] [facility] p[facility]) Branch Varicella Unknown Completed [facility] (var[facility]ax[facility] [place] [facility] pox) Branch TDAP Unknown Completed [facility] HIB PRP-D,booster Unknown [facility] Pneumococcal 13 Unknown Completed [facility] of Conjugate, PCV13 [facility] (Prevnar 13) Branch HIB 4 Dose Schedule Unknown [facility] Hep B, Dtap, Polio Unknown Completed Univer sity [facility] HEPATITIS A Unknown Completed [facility] Hep B, Adol or Pedi Unknown Completed Unive rsity of Dosage [facility] Meningococcal Unknown Completed [facility] of Polysaccharide [facility] florencio (groups A, C, Y and Branc h W-135) conjugate vaccine (MCV4P) DTAP Unknown Completed [facility] Polio (IPV/OPV) Unknown Completed [facility] Pneumococcal 7 Unknown Completed [facility], PCV7 [facility] (Prevnar7) Branch SARS-COV-2 COVID-19 Unknown Completed Unive rsity of PFIZER VACCINE [facility] SARS-COV-2 COVID-19 Unknown Completed Unive rsity of PFIZER VACCINE [facility] SARS-COV-2 COVID-19 Unknown Completed Unive rsity of PFIZER VACCINE [facility] HEPATITIS A Unknown Completed [facility] Heamophilus Unknown Completed [facility] Influenza B [facility] DTAP Unknown Completed [facility] DTaP, Unspecified Unknown Completed Univers ity of Formulation [facility] DTaP, Unspecified Unknown Completed Univers ity of Formulation [facility] DTaP, Unspecified Unknown Completed Univers ity of Formulation [facility] DTaP, Unspecified Unknown Completed Univers ity of Formulation [facility] DTaP, Unspecified Unknown Completed Univers ity of Formulation [facility] DTaP, Unspecified Unknown Completed Univers ity of Formulation [facility] Influenza Virus Unknown Completed Universit y of Vaccine Quad .5 mL [facility] 6+ MO Branch (FLUZONE/FLULAVAL/FL UARIX) Flu Trivalent Unknown Completed [facility] Flu Trivalent Unknown Completed [facility] Flu Whole Virus Unknown Completed [facility]it [facility] HEP B, Adult Dosage Unknown Completed Unive rsity [facility] Hep B, Adol or Pedi Unknown Completed Unive rsity of Dosage [facility] HEPA,NOS Unknown Completed [facility] HEPATITIS A Unknown Completed [facility] HEPATITIS A Unknown Completed [facility] Hep B, Adol or Pedi Unknown Completed Unive rsity of Dosage [facility] Hep B, Adol or Pedi Unknown Completed Unive rsity of Dosage [facility] Hep B, Adol or Pedi Unknown Completed Unive rsity of Dosage [facility] Hib-HbOC Unknown Completed [facility] HIB 3 Dose Schedule Unknown Completed Unive [facility]ity [facility] HIB 4 Dose Schedule Unknown Completed Unive [facility]ity [facility] HIB 4 Dose Schedule Unknown Completed Unive [facility]ity [facility] HIB 4 Dose Schedule Unknown Completed Unive [facility] HIB 4 Dose Schedule Unknown [facility] Unknown Completed [facility] Meningococcal Unknown Completed [facility] of Polysaccharide [facility] (groups A, C, Y and Branc h W-135) conjugate vaccine (MCV4P) MMR Unknown Completed [facility] MMR Unknown Completed [facility] MMR Unknown Completed [facility] Proquad Unknown Completed University of (MMR/VARICELLA) [facility] ical Branch Pneumococcal 13 Unknown Completed Universit y of Conjugate, PCV13 [facility] (Prevnar 13) Branch Pneumococcal 13 Unknown Completed [facility] of Conjugate, PCV13 [facility] (Prevnar 13) Branch Pneumococcal 13 Unknown Completed [facility] of Conjugate, PCV13 [facility] (Prevnar 13) Branch Pneumococcal 7 Unknown Completed [facility] of Conjugate, PCV7 [facility] ical (Prevnar7) Branch Pneumococcal Unknown Completed [place] [facility] [place] Polysaccharide, [facility] PPSV23 (PNEUMOVAX) Branch IPV Unknown Completed [facility] IPV Unknown Completed [facility] IPV Unknown Completed [facility] IPV Unknown Completed [facility] IPV Unknown Completed [facility] IPV Unknown Completed [facility] IPV Unknown Completed [facility] Varicella Unknown Completed [facility] (varivax)([facility] [place] [facility] pox) Branch Varicella Unknown Completed [facility] (varivax)([facility] [place] [facility] pox) Branch TDAP Unknown Completed [facility] HIB PRP-D,booster Unknown [facility] Pneumococcal 13 Unknown Completed [facility] of Conjugate, PCV13 [facility] (Prevnar 13) Branch HIB 4 Dose Schedule Unknown [facility] Hep B, Dtap, Polio Unknown Completed Univer [facility]ity [facility] HEPATITIS A Unknown Completed [facility] Hep B, Adol or Pedi Unknown Completed Unive rsity of Dosage [facility] Meningococcal Unknown Completed University Polysaccharide [facility] (groups A, C, Y and Branc h W-135) conjugate vaccine (MCV4P) DTAP Unknown Completed [facility] Polio (IPV/OPV) Unknown Completed [facility] Pneumococcal 7 Unknown Completed [facility] of Conjugate, PCV7 [facility] ical (Prevnar7) Branch SARS-COV-2 COVID-19 Unknown Completed Unive rsity of PFIZER VACCINE [facility] SARS-COV-2 COVID-19 Unknown Completed Unive rsity of PFIZER VACCINE [facility] SARS-COV-2 COVID-19 Unknown Completed Unive rsity of PFIZER VACCINE [facility] HEPATITIS A Unknown Completed [facility] Heamophilus Unknown Completed [facility] Influenza B [facility] DTAP Unknown Completed [facility] DTaP, Unspecified Unknown Completed Univers ity of Formulation [facility] DTaP, Unspecified Unknown Completed Univers ity of Formulation [facility] DTaP, Unspecified Unknown Completed Univers ity of Formulation [facility] DTaP, Unspecified Unknown Completed Univers ity of Formulation [facility] DTaP, Unspecified Unknown Completed Univers ity of Formulation [facility] DTaP, Unspecified Unknown Completed Univers ity of Formulation [facility] Influenza Virus Unknown Completed Universit y of Vaccine Quad .5 mL [facility] 6+ MO Branch (FLUZONE/FLULAVAL/FL UARIX) Flu Trivalent Unknown Completed [facility] Flu Trivalent Unknown Completed [facility] Flu Whole Virus Unknown Completed Universit y of [facility] HEP B, Adult Dosage Unknown Completed Unive [facility]ity [facility] Hep B, Adol or Pedi Unknown Completed Unive rsity of Dosage [facility] HEPA,NOS Unknown Completed [facility] HEPATITIS A Unknown Completed [facility] HEPATITIS A Unknown Completed [facility] Hep B, Adol or Pedi Unknown Completed Unive rsity of Dosage [facility] Hep B, Adol or Pedi Unknown Completed Unive rsity of Dosage [facility] Hep B, Adol or Pedi Unknown Completed Unive rsity of Dosage [facility] Hib-HbOC Unknown Completed [facility] HIB 3 Dose Schedule Unknown [facility] 4 Dose Schedule Unknown [facility] HIB 4 Dose Schedule Unknown [facility] HIB 4 Dose Schedule Unknown [facility] HIB 4 Dose Schedule Unknown [facility] HPV9 Unknown Completed [facility] Meningococcal Unknown Completed [facility] (groups A, C, Y and Branc h W-135) conjugate vaccine (MCV4P) MMR Unknown Completed [facility] MMR Unknown Completed [facility] MMR Unknown Completed [facility] Proquad Unknown Completed University of (MMR/VARICELLA) [facility] Branch Pneumococcal 13 Unknown Completed Universit y of Conjugate, PCV13 [facility] d[facility] (Prevnar 13) Branch Pneumococcal 13 Unknown Completed [facility] y of Conjugate, PCV13 [facility] d[facility] (Prevnar 13) Branch Pneumococcal 13 Unknown Completed [facility] y of Conjugate, PCV13 [facility] d[facility] (Prevnar 13) Branch Pneumococcal 7 Unknown Completed [facility] of Conjugate, PCV7 [facility] ical (Prevnar7) Branch Pneumococcal Unknown Completed [facility] o f Polysaccharide, [facility] PPSV23 (PNEUMOVAX) Branch IPV Unknown Completed [facility] IPV Unknown Completed [facility] IPV Unknown Completed [facility] IPV Unknown Completed [facility] IPV Unknown Completed [facility] IPV Unknown Completed [facility] IPV Unknown Completed [facility] Varicella Unknown Completed [facility] (varivax[facility] [place] [facility] pox) Branch Varicella Unknown Completed [facility] (varivax)([facility] [place] [facility] pox) Branch TDAP Unknown Completed [facility] HIB PRP-D,booster Unknown Completed [facility] Pneumococcal 13 Unknown Completed Univers[facility] of Conjugate, PCV13 [facility] (Prevnar 13) Branch HIB 4 Dose Schedule Unknown [facility] Hep B, Dtap, Polio Unknown [facility] HEPATITIS A Unknown Completed [facility] Hep B, Adol or Pedi Unknown Completed Unive rsity of Dosage [facility] Meningococcal Unknown Completed [facility] (groups A, C, Y and Branc h W-135) conjugate vaccine (MCV4P) DTAP Unknown Completed [facility] Polio (IPV/OPV) Unknown Completed [facility] Pneumococcal 7 Unknown Completed [facility] of Conjugate, PCV7 [facility] (Prevnar7) Branch SARS-COV-2 COVID-19 Unknown Completed Unive rsity of PFIZER VACCINE [facility] SARS-COV-2 COVID-19 Unknown Completed Unive rsity of PFIZER VACCINE [facility] SARS-COV-2 COVID-19 Unknown Completed Unive rsity of PFIZER VACCINE [facility] HEPATITIS A Unknown Completed [facility] Heamophilus Unknown Completed [facility] of Influenza B [facility] DTAP Unknown Completed [facility] DTaP, Unspecified Unknown Completed Univers ity of Formulation [facility] DTaP, Unspecified Unknown Completed Univers ity of Formulation [facility] DTaP, Unspecified Unknown Completed Univers ity of Formulation [facility] DTaP, Unspecified Unknown Completed Univers ity of Formulation [facility] DTaP, Unspecified Unknown Completed Univers ity of Formulation [facility] DTaP, Unspecified Unknown Completed Univers ity of Formulation [facility] Influenza Virus Unknown Completed Universit y of Vaccine Quad .5 mL [facility] 6+ MO Branch (FLUZONE/FLULAVAL/FL UARIX) Flu Trivalent Unknown Completed [facility] Flu Trivalent Unknown Completed [facility] Flu Whole Virus Unknown Completed Universit y of [facility] HEP B, Adult Dosage Unknown Completed Unive [facility]ity [facility] Hep B, Adol or Pedi Unknown Completed Unive rsity of Dosage [facility] HEPA,NOS Unknown Completed [facility] HEPATITIS A Unknown Completed [facility] HEPATITIS A Unknown Completed [facility] Hep B, Adol or Pedi Unknown Completed Unive rsity of Dosage [facility] Hep B, Adol or Pedi Unknown Completed Unive rsity of Dosage [facility] Hep B, Adol or Pedi Unknown Completed Unive rsity of Dosage [facility] [facility] Unknown Completed [facility] HIB 3 Dose Schedule Unknown [facility] D[facility] D[facility] D[facility] D[facility] Schedule [facility] HPV9 Unknown Completed [facility] Meningococcal Unknown Completed [facility] (groups A, C, Y and Branc h W-135) conjugate vaccine (MCV4P) MMR Unknown Completed [facility] MMR Unknown Completed [facility] MMR Unknown Completed [facility] Proquad Unknown Completed [facility] (MMR/VARICELLA) [facility] Pneumococcal 13 Unknown Completed Universit y of Conjugate, PCV13 [facility] (Prevnar 13) Branch Pneumococcal 13 Unknown Completed [facility]it [facility] of Conjugate, PCV13 [facility] (Prevnar 13) Branch Pneumococcal 13 Unknown Completed Universit [facility] of Conjugate, PCV13 [facility] (Prevnar 13) Branch Pneumococcal 7 Unknown Completed University of Conjugate, PCV7 [facility] ical (Prevnar7) Branch Pneumococcal Unknown Completed [place] [facility] [place] Polysaccharide, [facility] ical PPSV23 (PNEUMOVAX) Branch IPV Unknown Completed [facility] IPV Unknown Completed [facility] IPV Unknown Completed [facility] IPV Unknown Completed [facility] IPV Unknown Completed [facility] IPV Unknown Completed [facility] IPV Unknown Completed [facility] Varicella Unknown Completed [facility] (varivax)(chicken [place] [facility] pox) Branch Varicella Unknown Completed [facility] (varivax)(chicken [place] [facility] pox) Branch TDAP Unknown Completed [facility] HIB PRP-D,booster Unknown Completed Univers ity [facility] Pneumococcal 13 Unknown Completed Univers[facility] of Conjugate, PCV13 [facility] d[facility] (Prevnar 13) Branch HIB 4 Dose Schedule Unknown [facility] Hep B, Dtap, Polio Unknown Completed Univer sity [facility] HEPATITIS A Unknown Completed [facility] Hep B, Adol or Pedi Unknown Completed Unive rsity of Dosage [facility] Meningococcal Unknown Completed [facility] Polysaccharide [facility] (groups A, C, Y and Branc h W-135) conjugate vaccine (MCV4P) DTAP Unknown Completed [facility] Polio (IPV/OPV) Unknown Completed Universit y [facility] Pneumococcal 7 Unknown Completed [place] Conjugate, PCV7 [facility] ical (Prevnar7) Branch SARS-COV-2 COVID-19 Unknown Completed Unive rsity of PFIZER VACCINE [facility] SARS-COV-2 COVID-19 Unknown Completed Unive rsity of PFIZER VACCINE [facility] SARS-COV-2 COVID-19 Unknown Completed Unive rsity of PFIZER VACCINE [facility] HEPATITIS A Unknown Completed [facility] Heamophilus Unknown Completed University of Influenza B [facility] DTAP Unknown Completed [facility] DTaP, Unspecified Unknown Completed Univers ity of Formulation [facility] DTaP, Unspecified Unknown Completed Univers ity of Formulation [facility] DTaP, Unspecified Unknown Completed Univers ity of Formulation [facility] DTaP, Unspecified Unknown Completed Univers ity of Formulation [facility] DTaP, Unspecified Unknown Completed Univers ity of Formulation [facility] DTaP, Unspecified Unknown Completed Univers ity of Formulation [facility] Influenza Virus Unknown Completed Universit y of Vaccine Quad .5 mL [facility] IM 6+ MO Branch (FLUZONE/FLULAVAL/FL UARIX) Flu Trivalent Unknown Completed [facility] Flu Trivalent Unknown Completed [facility] Flu Whole Virus Unknown Completed Universit y of [facility] HEP B, Adult Dosage Unknown Completed Unive rsity [facility] Hep B, Adol or Pedi Unknown Completed Unive rsity of Dosage [facility] HEPA,NOS Unknown Completed [facility] HEPATITIS A Unknown Completed [facility] HEPATITIS A Unknown Completed [facility] Hep B, Adol or Pedi Unknown Completed Unive rsity of Dosage [facility] Hep B, Adol or Pedi Unknown Completed Unive rsity of Dosage [facility] Hep B, Adol or Pedi Unknown Completed Unive rsity of Dosage [facility] Hib-HbOC Unknown Completed [facility] HIB 3 Dose Schedule Unknown [facility] 4 Dose Schedule Unknown Completed Unive rsity [facility] HIB 4 Dose Schedule Unknown Completed Unive rsity [facility] HIB 4 Dose Schedule Unknown Completed Unive rsity [facility] HIB 4 Dose Schedule Unknown [facility] HPV9 Unknown Completed [facility] Meningococcal Unknown Completed [facility] (groups A, C, Y and Branc h W-135) conjugate vaccine (MCV4P) MMR Unknown Completed [facility] MMR Unknown Completed [facility] MMR Unknown Completed [facility] Proquad Unknown Completed University of (MMR/VARICELLA) [facility] Branch Pneumococcal 13 Unknown Completed Universit y of Conjugate, PCV13 [facility] d[facility] (Prevnar 13) Branch Pneumococcal 13 Unknown Completed Universit y of Conjugate, PCV13 [facility] d[facility] (Prevnar 13) Branch Pneumococcal 13 Unknown Completed Universit [facility] of Conjugate, PCV13 [facility] d[facility] (Prevnar 13) Branch Pneumococcal 7 Unknown Completed University of Conjugate, PCV7 [facility] (Prevnar7) Branch Pneumococcal Unknown Completed [place] [facility] [place] Polysaccharide, [facility] PPSV23 (PNEUMOVAX) Branch IPV Unknown Completed [facility] IPV Unknown Completed [facility] IPV Unknown Completed [facility] IPV Unknown Completed [facility] IPV Unknown Completed [facility] IPV Unknown Completed [facility] IPV Unknown Completed [facility] Varicella Unknown Completed [facility] (varivax)([facility]icken [place] [facility] pox) Branch Varicella Unknown Completed University (varivax)(chicken [place] [facility] pox) Branch TDAP Unknown Completed [facility] HIB PRP-D,booster Unknown Completed [facility] Pneumococcal 13 Unknown Completed Universit [facility] of Conjugate, PCV13 [facility] dical (Prevnar 13) Branch HIB 4 Dose Schedule Unknown Completed Unive rsity of [facility] Hep B, Dtap, Polio Unknown Completed Univer sity [facility] HEPATITIS A Unknown Completed [facility] Hep B, Adol or Pedi Unknown Completed Unive rsity of Dosage [facility] Meningococcal Unknown Completed University [facility] (groups A, C, Y and Branc h W-135) conjugate vaccine (MCV4P) DTAP Unknown Completed [facility] Polio (IPV/OPV) Unknown Completed [facility]it y [facility] Pneumococcal 7 Unknown Completed University of Conjugate, PCV7 [facility] ical (Prevnar7) Branch SARS-COV-2 COVID-19 Unknown Completed Unive rsity of PFIZER VACCINE [facility] Branch SARS-COV-2 COVID-19 Unknown Completed Unive rsity of PFIZER VACCINE [facility] SARS-COV-2 COVID-19 Unknown Completed Unive rsity of PFIZER VACCINE [facility] Branch HEPATITIS A Unknown Completed [facility] Heamophilus Unknown Completed University of Influenza B [facility] DTAP Unknown Completed [facility] DTaP, Unspecified Unknown Completed Univers ity of Formulation [facility] DTaP, Unspecified Unknown Completed Univers ity of Formulation [facility] DTaP, Unspecified Unknown Completed Univers ity of Formulation [facility] DTaP, Unspecified Unknown Completed Univers ity of Formulation [facility] DTaP, Unspecified Unknown Completed Univers ity of Formulation [facility] DTaP, Unspecified Unknown Completed Univers ity of Formulation [facility] Influenza Virus Unknown Completed Universit y of Vaccine Quad .5 mL [facility] 6+ MO Branch (FLUZONE/FLULAVAL/FL UARIX) Flu Trivalent Unknown Completed [facility] Flu Trivalent Unknown Completed [facility] Flu Whole Virus Unknown Completed Universit y of [facility] HEP B, Adult Dosage Unknown Completed Unive rsity [facility] Hep B, Adol or Pedi Unknown Completed Unive rsity of Dosage [facility] HEPA,NOS Unknown Completed [facility] HEPATITIS A Unknown Completed [facility] HEPATITIS A Unknown Completed [facility] Hep B, Adol or Pedi Unknown Completed Unive rsity of Dosage [facility] Hep B, Adol or Pedi Unknown Completed Unive rsity of Dosage [facility] Hep B, Adol or Pedi Unknown Completed Unive rsity of Dosage [facility] Hib-HbOC Unknown Completed [facility] HIB 3 Dose Schedule Unknown Completed Unive rsity [facility] HIB 4 Dose Schedule Unknown Completed Unive rsity [facility] HIB 4 Dose Schedule Unknown [facility] 4 Dose Schedule Unknown [facility] HIB 4 Dose Schedule Unknown [facility] Unknown Completed [facility] Meningococcal Unknown Completed [facility] (groups A, C, Y and Branc h W-135) conjugate vaccine (MCV4P) MMR Unknown Completed [facility] MMR Unknown Completed [facility] MMR Unknown Completed [facility] Proquad Unknown Completed University of (MMR/VARICELLA) [facility] Branch Pneumococcal 13 Unknown Completed Universit y of Conjugate, PCV13 [facility] d[facility] (Prevnar 13) Branch Pneumococcal 13 Unknown Completed Universit y of Conjugate, PCV13 [facility] d[facility] (Prevnar 13) Branch Pneumococcal 13 Unknown Completed Universit y of Conjugate, PCV13 [facility] (Prevnar 13) Branch Pneumococcal 7 Unknown Completed University of Conjugate, PCV7 [facility] (Prevnar7) Branch Pneumococcal Unknown Completed University o f Polysaccharide, [facility] PPSV23 (PNEUMOVAX) Branch IPV Unknown Completed [facility] IPV Unknown Completed [facility] IPV Unknown Completed [facility] IPV Unknown Completed [facility] IPV Unknown Completed [facility] IPV Unknown Completed [facility] IPV Unknown Completed [facility] Varicella Unknown Completed University (varivax)(chicken [place] [facility] pox) Branch Varicella Unknown Completed [facility] (varivax)(chicken [place] [facility] pox) Branch TDAP Unknown Completed [facility] HIB PRP-D,booster Unknown Completed Univers ity [facility] Pneumococcal 13 Unknown Completed Universit y of Conjugate, PCV13 [facility] d[facility] (Prevnar 13) Branch HIB 4 Dose Schedule Unknown Completed Unive rsity of [facility] Hep B, Dtap, Polio Unknown Completed Univer sity [facility] HEPATITIS A Unknown Completed [facility] Hep B, Adol or Pedi Unknown Completed Unive rsity of Dosage [facility] Meningococcal Unknown Completed [facility] (groups A, C, Y and Branc h W-135) conjugate vaccine (MCV4P) DTAP Unknown Completed [facility] Polio (IPV/OPV) Unknown Completed [facility]it y [facility] Pneumococcal [address] [facility] Conjugate, PCV7 [facility] ical (Prevnar7) Branch SARS-COV-2 COVID-19 Unknown Completed Unive rsity of PFIZER VACCINE [facility] SARS-COV-2 COVID-19 Unknown Completed Unive rsity of PFIZER VACCINE [facility] SARS-COV-2 COVID-19 Unknown Completed Unive rsity of PFIZER VACCINE [facility] Branch HEPATITIS A Unknown Completed [facility] Heamophilus Unknown Completed University Influenza B [facility] DTAP Unknown Completed [facility] DTaP, Unspecified Unknown Completed Univers ity of Formulation [facility] DTaP, Unspecified Unknown Completed Univers ity of Formulation [facility] DTaP, Unspecified Unknown Completed Univers ity of Formulation [facility] DTaP, Unspecified Unknown Completed Univers ity of Formulation [facility] DTaP, Unspecified Unknown Completed Univers ity of Formulation [facility] DTaP, Unspecified Unknown Completed Univers ity of Formulation [facility] Influenza Virus Unknown Completed Universit y of Vaccine Quad .5 mL [facility] 6+ MO Branch (FLUZONE/FLULAVAL/FL UARIX) Flu Trivalent Unknown Completed [facility] Flu Trivalent Unknown Completed [facility] Flu Whole Virus Unknown Completed Universit y of [facility] HEP B, Adult Dosage Unknown Completed Unive rsity of [facility] Hep B, Adol or Pedi Unknown Completed Unive rsity of Dosage [facility] HEPA,NOS Unknown Completed [facility] HEPATITIS A Unknown Completed [facility] HEPATITIS A Unknown Completed [facility] Hep B, Adol or Pedi Unknown Completed Unive rsity of Dosage [facility] Hep B, Adol or Pedi Unknown Completed Unive rsity of Dosage [facility] Hep B, Adol or Pedi Unknown Completed Unive rsity of Dosage [facility] Hib-HbOC Unknown Completed [facility] HIB 3 Dose Schedule Unknown [facility] Dose Schedule Unknown [facility]IB 4 Dose Schedule Unknown [facility] HIB 4 Dose Schedule Unknown Com[facility] HIB 4 Dose Schedule Unknown Com[facility] HPV9 Unknown Completed [facility] Meningococcal Unknown Completed [facility] (groups A, C, Y and Branc h W-135) conjugate vaccine (MCV4P) MMR Unknown Completed [facility] MMR Unknown Completed [facility] MMR Unknown Completed [facility] Proquad Unknown Completed [facility] ([facility]LLA) [facility] Pneumococcal 13 Unknown Completed Universit y of Conjugate, PCV13 [facility] d[facility] (Prevnar 13) Branch Pneumococcal 13 Unknown Completed Universit y of Conjugate, PCV13 [facility] d[facility] (Prevnar 13) Branch Pneumococcal 13 Unknown Completed Universit y of Conjugate, PCV13 [facility] d[facility] (Prevnar 13) Branch Pneumococcal 7 Unknown Completed University of Conjugate, PCV7 [facility] ical (Prevnar7) Branch Pneumococcal Unknown Completed University o f Polysaccharide, [facility] PPSV23 (PNEUMOVAX) Branch IPV Unknown Completed [facility] IPV Unknown Completed [facility] IPV Unknown Completed [facility] IPV Unknown Completed [facility] IPV Unknown Completed [facility] IPV Unknown Completed [facility] IPV Unknown Completed [facility] Varicella Unknown Completed [facility] (varivax)(chicken [place] [facility] pox) Branch Varicella Unknown Completed University (varivax)(chicken [place] [facility] pox) Branch TDAP Unknown Completed [facility] HIB PRP-D,booster Unknown [facility] Pneumococcal 13 Unknown Completed Univers[facility] y of Conjugate, PCV13 [facility] dical (Prevnar 13) Branch HIB 4 Dose Schedule Unknown [facility] Hep B, Dtap, Polio Unknown Completed Univer sity [facility] HEPATITIS A Unknown Completed [facility] Hep B, Adol or Pedi Unknown Completed Unive rsity of Dosage [facility] Meningococcal Unknown Completed [facility] (groups A, C, Y and Branc h W-135) conjugate vaccine (MCV4P) DTAP Unknown Completed [facility] Polio (IPV/OPV) Unknown Completed [facility]it [facility] Pneumococcal 7 Unknown Completed [facility], PCV7 [facility] (Prevnar7) [place] SARS-COV-2 COVID-19 Unknown Completed Unive rsity of PFIZER VACCINE [facility] SARS-COV-2 COVID-19 Unknown Completed Unive rsity of PFIZER VACCINE [facility] SARS-COV-2 COVID-19 Unknown Completed Unive rsity of PFIZER VACCINE [facility] HEPATITIS A Unknown Completed [facility] Heamophilus Unknown Completed [facility] Influenza B [facility] DTAP Unknown Completed [facility] DTaP, Unspecified Unknown Completed Univers ity of Formulation [facility] DTaP, Unspecified Unknown Completed Univers ity of Formulation [facility] DTaP, Unspecified Unknown Completed Univers ity of Formulation [facility] DTaP, Unspecified Unknown Completed Univers ity of Formulation [facility] DTaP, Unspecified Unknown Completed Univers ity of Formulation [facility] DTaP, Unspecified Unknown Completed Univers ity of Formulation [facility] Influenza Virus Unknown Completed Universit y of Vaccine Quad .5 mL [facility] 6+ MO Branch (FLUZONE/FLULAVAL/FL UARIX) Flu Trivalent Unknown Completed [facility] Flu Trivalent Unknown Completed [facility] Flu Whole Virus Unknown Completed [facility]it y [facility] HEP B, Adult Dosage Unknown Completed Unive rsity [facility] Hep B, Adol or Pedi Unknown Completed Unive rsity of Dosage [facility] HEPA,NOS Unknown Completed [facility] HEPATITIS A Unknown Completed [facility] HEPATITIS A Unknown Completed [facility] Hep B, Adol or Pedi Unknown Completed Unive rsity of Dosage [facility] Hep B, Adol or Pedi Unknown Completed Unive rsity of Dosage [facility] Hep B, Adol or Pedi Unknown Completed Unive rsity of Dosage [facility] Hib-HbOC Unknown Completed [facility] HIB 3 Dose Schedule Unknown Completed Unive rsity [facility] HIB 4 Dose Schedule Unknown Completed Unive rsity [facility] HIB 4 Dose Schedule Unknown [facility] 4 Dose Schedule Unknown [facility] HIB 4 Dose Schedule Unknown Completed [facility] HPV9 Unknown Completed [facility] Meningococcal Unknown Completed [facility] (groups A, C, Y and Branc h W-135) conjugate vaccine (MCV4P) MMR Unknown Completed [facility] MMR Unknown Completed [facility] MMR Unknown Completed [facility] Proquad Unknown Completed [facility] (MMR/VARICELLA) [facility] Branch Pneumococcal 13 Unknown Completed Universit y of Conjugate, PCV13 [facility] dical (Prevnar 13) Branch Pneumococcal 13 Unknown Completed Universit y of Conjugate, PCV13 [facility] dical (Prevnar 13) Branch Pneumococcal 13 Unknown Completed Universit y of Conjugate, PCV13 [facility] dical (Prevnar 13) Branch Pneumococcal [address] [facility] Conjugate, PCV7 [facility] (Prevnar7) Branch Pneumococcal Unknown Completed [place] Polysaccharide, [facility] PPSV23 (PNEUMOVAX) Branch IPV Unknown Completed [facility] IPV Unknown Completed [facility] IPV Unknown Completed [facility] IPV Unknown Completed [facility] IPV Unknown Completed [facility] IPV Unknown Completed [facility] IPV Unknown Completed [facility] Varicella Unknown Completed [facility] (varivax)(chicken [place] [facility] pox) Branch Varicella Unknown Completed [facility] (varivax)(chicken [place] [facility] pox) Branch TDAP Unknown Completed [facility] HIB PRP-D,booster Unknown Completed [facility] Vital Signs Vital Name Observation Time Observation Value Comments Source Systolic blood 2023-07-18 16:26:00 138 mm[Hg] Univer sity pressure [facility] Diastolic blood 2023-07-18 16:26:00 94 mm[facility]Hg[facility]23-07-18 16:20:00 108 /min [facility] Body height 2023-07-18 16:20:00 165.1 cm [facility] Body weight 2023-07-18 16:20:00 69.536 kg [facility] BMI 2023-07-18 16:20:00 25.51 kg/m2 [facility] Oxygen saturation in 2023-07-18 16:20:00 99 /min [facility] oxim[facility] Branch Systolic blood 2023-07-10 18:39:00 133 mm[Hg] Univer sity of pressure [facility] Diastolic blood 2023-07-10 18:39:00 86 mm[Hg] Unive rsity of pressure [facility] Heart rate 2023-07-10 18:39:00 104 /min [facility] Body height 2023-07-10 18:39:00 165.1 cm [facility] Body weight 2023-07-10 18:39:00 69.128 kg [facility] BMI 2023-07-10 18:39:00 25.36 kg/m2 [facility] Oxygen saturation in 2023-07-10 18:39:00 97 /min [facility] of Arterial blood by [facility] Systolic blood 2023-05-26 14:58:00 129 mm[Hg] Univer sity of pressure [facility] Diastolic blood 2023-05-26 14:58:00 86 mm[Hg] Unive rsity of [facility] Heart rate 2023-05-26 14:58:00 94 /min [facility] Body height 2023-05-26 14:58:00 165.1 cm [facility] Body weight 2023-05-26 14:58:00 69.4 kg [facility] BMI 2023-05-26 14:58:00 25.46 kg/m2 [facility] Oxygen saturation in 2023-05-26 14:58:00 98 /min University of Arterial blood by [facility] Systolic blood 2023-04-21 21:27:00 144 mm[Hg] Univer [facility]ity [facility] Diastolic blood 2023-04-21 21:27:00 96 mm[Hg] Unive rsity of [facility] Heart rate 2023-04-21 21:27:00 103 /min [facility] Body height 2023-04-21 21:27:00 165.1 cm [facility] Body weight 2023-04-21 21:27:00 70.398 kg [facility] BMI 2023-04-21 21:27:00 25.83 kg/m2 [facility] Systolic blood 2023-04-13 19:32:00 115 mm[Hg] Univer [facility]ity [facility] Diastolic blood 2023-04-13 19:32:00 74 mm[Hg] Unive rsity of [facility] Heart rate 2023-04-13 19:32:00 79 /min [facility] Body height 2023-04-13 19:32:00 165.1 cm [facility] Body weight 2023-04-13 19:32:00 70.308 kg [facility] BMI 2023-04-13 19:32:00 25.79 kg/m2 [facility] Oxygen saturation in 2023-04-13 19:32:00 98 /min University [facility] Arterial blood by [facility] Systolic blood 2023-03-31 19:23:00 110 mm[Hg] Univer [facility]ity of [facility] Diastolic blood 2023-03-31 19:23:00 75 mm[Hg] Unive rsity of [facility] Heart rate 2023-03-31 19:23:00 99 /min [facility] Body height 2023-03-31 19:23:00 165.1 cm [facility] Body weight 2023-03-31 19:23:00 70.398 kg [facility] BMI 2023-03-31 19:23:00 25.83 kg/m2 [facility] Oxygen saturation in 2023-03-31 19:23:00 97 /min University of Arterial blood by [place] [facility] Systolic blood 2023-03-24 14:42:00 129 mm[Hg] Univer [facility]ity of [facility] Diastolic blood 2023-03-24 14:42:00 87 mm[Hg] Unive rsity of [facility] Heart rate 2023-03-24 14:42:00 90 /min [facility] Body temperature 2023-03-24 14:42:00 36.72 [...] 99 /min University of Arterial blood by [facility] fl[facility]io Pulse oximetry [facility] Systolic blood 2022-10-07 [...] 94 /min [facility] Arterial blood by [facility] fl[facility] Pulse oximetry Branch Systolic blood 2022-08-05 19:18:00 128 mm[Hg] Univer [facility]ity of [facility] Diastolic blood 2022-08-05 19:18:00 81 mm[Hg] Unive rsity of [facility] Heart rate 2022-08-05 19:18:00 110 /min [facility] Respiratory rate 2022-08-05 19:18:00 23 /min Univ ersity of [facility] Body height 2022-08-05 19:18:00 165.1 cm [facility] Body weight 2022-08-05 19:18:00 70.308 kg [facility] BMI 2022-08-05 19:18:00 25.79 kg/m2 [facility] Oxygen saturation in 2022-08-05 19:18:00 97 /min University of Arterial blood by [facility] Pulse oximetry Branch Systolic blood 2022-08-04 18:34:00 125 mm[Hg] Univer sity of [facility] Diastolic blood 2022-08-04 18:34:00 84 mm[Hg] Unive rsity of pressure [facility] Heart rate 2022-08-04 18:34:00 96 /min [facility] [place] [facility] [place] Body height 2022-08-04 18:34:00 165.1 cm [facility] Body weight 2022-08-04 18:34:00 70.625 kg [facility] BMI 2022-08-04 18:34:00 25.91 kg/m2 Universi ty of [facility] Oxygen saturation in 2022-08-04 18:34:00 97 /min University of Arterial blood by [facility] Pulse oximetry Branch Systolic blood 2022-07-05 16:31:00 128 mm[Hg] Univer sity of [facility] Diastolic blood 2022-07-05 16:31:00 86 mm[Hg] Unive rsity of pressure [facility] Heart rate 2022-07-05 16:31:00 93 /min [facility] Body height 2022-07-05 16:31:00 165.1 cm [facility] Body weight 2022-07-05 16:31:00 67.722 kg [facility] BMI 2022-07-05 16:31:00 24.84 kg/m2 Universi ty of [facility] Oxygen saturation in 2022-07-05 16:31:00 99 /min University of Arterial blood by [facility] Pulse oximetry Branch Procedures Procedure Date / Time Performing Clinician Source Performed CBC WITH DIFF 2023-07-10 19:47:00 Emre Gan o f [facility] COMP. METABOLIC PANEL 2023-07-10 19:47:00 Emre Gan [facility] ([id number]) [facility] POCT HEMOGLOBIN A1C TEST 2023-07-10 00:00:00 Emre Gan [facility] TDAP VACCINE, >11 YRS, IM 2023-05-26 15:11:45 Emre Gan [facility] POCT HEMOGLOBIN A1C TEST 2023-05-26 00:00:00 Emre Gan of [facility] MEDICAL RELEASE/CLEARANCE 2023-03-31 05:01:00 Doctor Margoth, [facility] FORMS [facility] [place] ASSIGNMENT OF BENEFITS 2022-10-07 20:44:49 Doctor Justin [facility] [place] [facility] INSURANCE CORRESPONDENCE 2022-08-16 06:01:00 Doctor Margoth, [facility] [place] [facility] POCT HEMOGLOBIN A1C TEST 2022-08-04 20:25:00 Emre Gan of [facility] Encounters Start End Encounter Admission Attending Care Care Encounter Source Date/Time Date/Time Type Type Clinicians Facility Department ID 2023-08-10 2023-08-10 Outpatient R ELVIA [facility] [id number] Univers 13:30:00 13:30:[address] [facility] 2023-07-19 2023-07-19 Outpatient R [facility] [id number] Univers 09:15:00 09:15:[address] [facility] 2023-07-18 2023-07-18 Outpatient R TARAN [facility] [id number] Univers 11:30:00 12:10:[address] [facility] 2023-07-18 2023-07-[address] [facility] 1.2.840.114 [id number] Univers 11:30:00 12:10:40 Visit Ann HEALTH 350.1.13.10 it y of [place] 4.2.7.2.686 Scooter as PITO?BLEA [id number] [address] MEDICAL OFFICE [facility] 2023-07-18 2023-07-[address] [facility] 1.2.840.114 [id number] Univers 00:00:00 00:00:00 (Out) Ann HEALTH 350.1.13.10 it y of [place] 4.2.7.2.686 Scooter as PITO?BLEA [id number] [address] MEDICAL OFFICE BUILDING 2023-07-18 2023-07-18 [facility] 1.2.840.114 [id number] Univers 00:00:00 00:00:00 Ann HEALTH 350.1.13.10 it y of [place] 4.2.7.2.686 Scooter as PITO?BLEA [id number] [place] noel SMITH [address] [facility] OFFICE [facility] 2023-07-17 2023-07-[address] [facility] 1.2.547.322 [id number] Univers 00:00:00 00:00:00 Emre HEALTH 350.1.13.10 it y of [place] 4.2.7.2.686 Scooter as PITO?BLEA [id number] [place] no[place] SMITH 044 [facility] OFFICE [facility] 2023-07-16 2023-07-16 Outpatient R ELVIASELECT MEDICAL [facility] [id number] Univers 15:30:00 15:30:00 EMRE ity of [facility] 2023-07-11 2023-07-11 Telephone SendyOn license of [facility] 1.2.121.464 [id number] Univers 00:00:00 00:00:00 Emre HEALTH 350.1.13.10 it y of [place] 4.2.7.2.686 Scooter as PITO?BLEA [id number] [place] noel SMITH 044 [facility] 2023-07-11 2023-07-11 Telephone SendyOn license of [facility] 1.2.417.989 [id number] Univers 00:00:00 00:00:00 Emre HEALTH 350.1.13.10 it y of [place] 4.2.7.2.686 Scooter as PITO?BLEA [phone] [place] noel SMITH 044 [facility] 2023-07-10 2023-07-10 Search Manager Lab, Ang - Db [facility] 1.2.840.1 14 [id number] Univers 17:00:00 17:15:00 Visit Sendykathi Emre HEALTH 350.1.13.10 ity of [place] 4.2.7.2.686 Scooter as PITO?BLEA [id number] [place] no[place] SMITH 353 [facility] OFFICE [facility] 2023-07-10 2023-07-10 Outpatient R ELVIASELECT [facility]ICAL [facility] [id number] Univers 13:30:00 14:37:[address] [facility] 2023-07-10 2023-07-[address] [facility] 1.2.840.114 [id number] Univers 13:30:00 14:37:44 Visit Emre [facility] 350.1.13.10 it y of [place] 4.2.7.2.686 Scooter as PITO?BLEA [phone] W[place] dicsg SMITH 044 [facility] OFFICE [facility] 2023-05-26 2023-05-26 Outpatient R ELVI[facility]LECT [facility] [id number] Univers 09:30:00 10:29:[address] [facility] 2023-05-26 2023-05-26 Office [facility] 1.2.840.114 [id number] Univers 09:30:00 10:29:53 Visit [facility] 350.1.13.10 it y of [place] 4.2.7.2.686 Scooter as PITO?BLEA [id number] [place] no[place] [address] OFFICE [facility] 2023-04-27 2023-04-27 Outpatient R [facility]LECT [facility] [id number] Univers 14:30:00 14:30:[address] [facility] 2023-04-21 2023-04-21 Outpatient R DAXSELECT [facility]ICAL [facility] [id number] Univers 16:30:00 17:06:[address] [facility] 2023-04-21 2023-04-[address] [facility] 1.2.523.173 [id number] Univers 16:30:00 17:06:39 Visit Richard [facility] 350.1.13.10 it y of [place] 4.2.7.2.686 Scooter as PITO?BLEA [id number] [place] dicsg SMITH [facility] OFFICE [facility] 2023-04-21 2023-04-[address] [facility] 1.2.413.172 [id number] Univers 00:00:00 00:00:00 (Out) Richard Beltre HEALTH 350.1.13.10 it y of [place] 4.2.7.2.686 Scooter as PITO?BLEA [id number] [place] noel SMITH [address] [place] MEDICAL OFFICE [facility] 2023-04-13 2023-04-13 Outpatient R ELVIA [facility] [id number] Univers 14:30:00 15:12:[address] [facility] 2023-04-13 2023-04-[address] [facility] 1.2.840.114 [id number] Univers 14:30:00 15:12:55 Visit Emre HEALTH 350.1.13.10 it y of [place] 4.2.7.2.686 Scooter as PITO?BLEA [id number] [place] noel SMITH 044 [facility] OFFICE [facility] 2023-04-13 2023-04-[address] [facility] 1.2.840.114 [id number] Univers 00:00:00 00:00:00 (Out) Emre HEALTH 350.1.13.10 it y of [place] 4.2.7.2.686 Scooter as PITO?BLEA [id number] [place] noel SMITH 044 [facility] OFFICE [facility] 2023-04-03 2023-04-03 Patient Doctor [facility] 1.2.840.114 [id number] Univers 00:00:00 00:00:00 Secure Msg Unassigned, HEALTH 350.1.13.10 ity of [place] 4.2.7.2.686 Scooter as PITO?BLEA [id number] [place] noel SMITH 044 [facility] OFFICE [facility] 2023-03-31 2023-03-31 Search Manager Lab, Ang - Db [facility] 1.2.840.1 14 [id number] Univers 15:15:00 15:34:55 Visit Emre Gan HEALTH 350.1.13.10 ity of [place] 4.2.7.2.686 Scooter as PITO?BLEA [id number] [place] noel SMITH 353 [facility] OFFICE [facility] 2023-03-31 2023-03-31 Outpatient R ELVIA, [facility] [id number] Univers 14:00:00 15:08:[address] [facility] 2023-03-31 2023-03-[address] [facility] 1.2.840.114 [id number] Univers 14:00:00 15:08:45 Visit Emre HEALTH 350.1.13.10 [facility] 4.2.7.2.686 Scooter as PITO?BLEA [id number] [address] MEDICAL OFFICE [facility] 2023-03-31 2023-03-31 Bob Gan [facility] 1.2.840.114 [id number] Univers 00:00:00 00:00:00 (Out) Emre HEALTH 350.1.13.10 it y of [place] 4.2.7.2.686 Scooter as PITO?BLEA [id number] [address] OFFICE [facility] 2023-03-31 2023-03-31 Orders Doctor JEFFERY 1.2.840.114 [id number] Univers 00:00:00 00:00:00 Only Unassigned, GABO 350.1.13.10 ity of [place] [facility] 4.2.7.2.686 Scooter as [id number] [address] 2023-03-29 2023-03-29 Outpatient R ALBERTSELECT MEDICAL [facility] [id number] Univers 13:00:00 13:00:[address] [facility] 2023-03-24 2023-03-24 [facility] 1.2.840.114 [id number] Univers 09:30:00 10:00:00 Visit Melly A HEALTH 350.1.13.10 i ty of [place] 4.2.7.2.686 Scooter as PITO?BLEA [id number] [address] OFFICE [facility] 2023-03-24 2023-03-24 Outpatient R ALBERTSELECT [facility] [id number] Univers 09:30:00 09:30:[address] [facility] 2023-03-24 2023-03-[address] [facility] 1.2.840.114 [id number] Univers 00:00:00 00:00:00 (Out) Melly A HEALTH 350.1.13.10 i ty [facility] 4.2.7.2.686 Scooter as PITO?BLEA [id number] Me dic[address] OFFICE [facility] 2023-03-24 2023-03-[address] [facility] 1.2.840.114 [id number] Univers 00:00:00 00:00:00 (Out) Melly A HEALTH 350.1.13.10 i ty of [place] 4.2.7.2.686 Scooter as PITO?BLEA [id number] [address] OFFICE [facility] 2023-03-21 2023-03-[address] [facility] 1.2.365.133 [id number] Univers 00:00:00 00:00:00 Emre HEALTH 350.1.13.10 it y of [place] 4.2.7.2.686 Scooter as PITO?BLEA [id number] [address] OFFICE [facility] 2023-03-17 2023-03-17 Outpatient R DAXSELECT [facility] [id number] Univers 15:30:00 15:30:[address] [facility] 2023-02-26 2023-02-[address] [facility] 1.2.840.114 [id number] Univers 00:00:00 00:00:00 Mere HEALTH 350.1.13.10 it y of [place] 4.2.7.2.686 Scooter as PITO?BLEA [id number] [address] OFFICE [facility] 2023-02-21 2023-02-[address] [facility] 1.2.840.114 [id number] Univers 00:00:00 00:00:00 Richard H HEALTH 350.1.13.10 it y of [place] 4.2.7.2.686 Scooter as PITO?BLEA [id number] [facility] 220 [facility] OFFICE [facility] 2023-01-19 2023-01-[address] [facility] 1.2.781.246 [id number] Univers 00:00:00 00:00:00 Emre HEALTH 350.1.13.10 it y of [place] 4.2.7.2.686 Scooter as PITO?BLEA [id number] [address] OFFICE [facility] 2023-01-09 2023-01-[address] [facility] 1.2.840.114 [id number] Univers 00:00:00 00:00:00 Emre HEALTH 350.1.13.10 it y of [place] 4.2.7.2.686 Scooter as PITO?BLEA [id number] [facility] [address] [place] MEDICAL OFFICE [facility] 2022-10-18 2022-10-[address] [facility] 1.2.840.114 [id number] Univers 00:00:00 00:00:00 Emre HEALTH 350.1.13.10 it y of [place] 4.2.7.2.686 Scooter as PITO?BLEA [id number] [address] OFFICE [facility] 2022-10-07 2022-10-07 Outpatient R DAX [facility] [id number] Univers 15:00:00 15:46:19 RICHARD ity of [facility] 2022-10-07 2022-10-[address] [facility] 1.2.264.180 [id number] Univers 15:00:00 15:46:19 Visit Richard HEALTH 350.1.13.10 it y of [place] 4.2.7.2.686 Scooter as PITO?BLEA [id number] [facility] [address] [place] MEDICAL OFFICE [facility] 2022-10-07 2022-10-07 Orders Doctor JEFFERY 1.2.840.114 [id number] Univers 00:00:00 00:00:00 Only Unassigned, GABO 350.1.13.10 ity of [place] [facility] 4.2.7.2.686 Scooter as [id number] [address] 2022-09-15 2022-09-[address] [facility] 1.2.246.869 [id number] Univers 00:00:00 00:00:00 Emre HEALTH 350.1.13.10 it y of [place] 4.2.7.2.686 Scooter as PITO?BLEA [id number] [address] MEDICAL OFFICE [facility] 2022-08-25 2022-08-25 Outpatient R HAYES [facility] [id number] Univers 15:48:17 23:59:00 ROSEANNE edwardsy o f [facility] 2022-08-25 2022-08-25 Patient Hayes, [facility] 1.2.840.114 [id number] Univers 00:00:00 00:00:00 Secure Msg Roseanne HERRING 350.1.13.10 ity [facility] 4.2.7.2.[place] [id number] [place] [id number] [facility] 2022-08-16 2022-08-16 Orders Doctor JEFFERY 1.2.840.114 [id number] Univers 00:00:00 00:00:00 Only Unassigned, GABO 350.1.13.10 ity of [facility] 4.2.7.2.686 Scooter as [id number] [address] 2022-08-05 2022-08-05 Outpatient R HAY[facility]SELECT [facility] [id number] Univers 14:00:00 14:39:02 ROSEANNE gant o kasie [facility] 2022-08-05 2022-08-[address] [facility] 1.2.840.114 [id number] Univers 14:00:00 14:39:02 Visit Roseanne NEVAEH 350.1.13.10 ity [facility] 4.[place] [id number] [address] 2022-08-04 2022-08-04 Outpatient R ELVIA [facility] [id number] Univers 13:30:00 14:59:51 EMRE ity of [facility] 2022-08-04 2022-08-[address] [facility] 1.2.840.114 [id number] Univers 13:30:00 14:59:51 Visit Emre HEALTH 350.1.13.10 it y of [place] 4.2.7.2.686 Scooter as PITO?BLEA [id number] [place] no[place] [address] OFFICE [facility] 2022-07-19 2022-07-19 Moi Estrada [facility] 1.2.840.114 [id number] Univers 00:00:00 00:00:00 Luis Miguel HEALTH 350.1.13.10 it y of [place] 4.2.7.2.686 Scooter as PITO?BLEA [id number] [address] OFFICE [facility] 2022-07-05 2022-07-05 Outpatient R ELVIA [facility] [id number] Univers 11:30:00 11:46:02 EMRE ity of [facility] 2022-07-05 2022-07-[address] [facility] 1.2.840.114 [id number] Univers 11:30:00 11:46:02 Visit Emre HEALTH 350.1.13.10 it y of [place] 4.2.7.2.686 Scooter as PITO?BLEA [id number] [address] OFFICE [facility] 2022-07-05 2022-07-[address] [facility] 1.2.950.024 [id number] Univers 00:00:00 00:00:00 Emre HEALTH 350.1.13.10 it y of [place] 4.2.7.2.686 Scooter as PITO?BLEA [id number] [address] OFFICE [facility] 2022-07-02 2022-07-02 Patient Doctor JEFFERY 1.2.840.114 [id number] Univers 00:00:00 00:00:00 Secure Msg Unassigned, GABO 350.1.13.10 ity of [place] [facility] 4.2.7.2.686 Scooter as [id number] [address] 2022-06-28 2022-06-[address] [facility] 1.2.696.697 [id number] Univers 00:00:00 00:00:00 Emre HEALTH 350.1.13.10 it y of [place] 4.2.7.2.686 Scooter as PITO?BLEA [id number] [address] OFFICE [facility] 2022-06-22 2022-06-[address] [facility] 1.2.604.585 [id number] Univers 00:00:00 00:00:00 Emre HEALTH 350.1.13.10 it y of [place] 4.2.7.2.686 Scooter as PITO?BLEA [id number] Me noel SMITH [address] [place] MEDICAL OFFICE BUILDING 2022-06-21 2022-06-21 Case Yazmin, [facility] 1.2.840.114 [id number] Univers 00:00:00 00:00:00 Management Bebeto HEALTH 350.1.13.10 ity of [place] 4.2.7.2.686 Scooter as PITO?BLEA [id number] Me noel SMITH [address] [place] MEDICAL OFFICE BUILDING 2022-06-21 2022-06-21 Case Yazmin, [facility] 1.2.840.114 [id number] Univers 00:00:00 00:00:00 Management Bebeto HEALTH 350.1.13.10 ity of [place] 4.2.7.2.686 Scooter as PITO?BLEA [id number] [place] noel SMITH 370 [facility] OFFICE [facility] 2022-06-21 2022-06-21 Case Yazmin, [facility] 1.2.840.114 [id number] Univers 00:00:00 00:00:00 Management Bebeto HEALTH 350.1.13.10 ity of [place] 4.2.7.2.686 Scooter as PITO?BLEA [id number] [place] noel SMITH 370 [facility] OFFICE [facility] 2022-06-20 2022-06-20 Search Manager Lab, Ang - Db [facility] 1.2.840.[id number] [facility] 12:00:00 12:14:16 Visit Emre Gan AppMesh 350.1.13.10 ity of [place] 4.2.7.2.686 Scooter as IPTO?BLEA [id number] [place] no[place] SMITH [address] [place] MEDICAL OFFICE BUILDING 2022-06-20 2022-06-20 Search Manager Lab, Ang - Db [facility] 1.2.840.[id number] [facility] 12:00:00 12:14:16 Visit Emre Gan HEALTH 350.1.13.10 ity of [place] 4.2.7.2.686 Scooter as PITO?BLEA [phone] [place] d[place]g SMITH [address] MEDICAL OFFICE BUILDING 2022-06-20 2022-06-20 Search Manager Lab, Ang - Db [facility] 1.2.840.1 14 [id number] Univers 12:00:00 12:14:16 Visit Emre Gan 350.1.13.10 ity of [place] 4.2.7.2.686 Scooter as PITO?BLEA [id number] [place] SMITH [address] [facility] OFFICE [facility] 2022-06-20 2022-06-20 Outpatient R ELVIASELECT MEDICAL [facility] [id number] Univers 11:30:00 11:47:[address] [facility] 2022-06-20 2022-06-[address] [facility] 1.2.840.114 [id number] Univers 11:30:00 11:47:22 Visit Emre CALHOUN 350.1.13.10 it y of [place] 4.2.7.2.686 Scooter as PITO?BLEA [id number] [address] OFFICE [facility] 2022-06-20 2022-06-20 Outpatient R ELVIA [facility] [id number] Univers 11:30:00 11:47:[address] [facility] 2022-06-20 2022-06-[address] [facility] 1.2.840.114 [id number] Univers 11:30:00 11:47:22 Visit Emre CALHOUN 350.1.13.10 it y of [place] 4.2.7.2.686 Scooter as PITO?BLEA [phone] [address] OFFICE [facility] 2022-06-20 2022-06-20 Outpatient R SENDYKATHI [facility] [id number] Univers 11:30:00 11:47:[address] [facility] 2022-06-20 2022-06-[address] [facility] 1.2.840.114 [id number] Univers 00:00:00 00:00:00 (Out) Emre CALHOUN 350.1.13.10 it y of [place] 4.2.7.2.686 Scooter as PITO?BLEA [id number] [address] OFFICE [facility] 2022-06-20 2022-06-[address] [facility] 1.2.114.810 [id number] Univers 00:00:00 00:00:00 Emre HEALTH 350.1.13.10 it y of [place] 4.2.7.2.686 Scooter as PITO?BLEA [phone] [facility] OFFICE [facility] 2022-06-20 2022-06-[address] [facility] 1.2.074.553 [id number] Univers 00:00:00 00:00:00 Emre HEALTH 350.1.13.10 it y [place] 4.2.7.2.686 Scooter as PITO?BLEA [id number] [facility] 044 [facility] OFFICE [facility] 2022-05-28 2022-05-28 [facility] 1.2.840.114 [id number] Univers 12:00:00 12:00:00 Care Kateryna HEALTH 350.1.13.10 it y of [place] 4.2.7.2.686 Scooter as PITO?BLEA [id number] [facility] 370 [facility] OFFICE [facility] 2022-05-28 2022-05-[address] [facility] 1.2.840.114 [id number] Univers 12:00:00 12:00:00 Care Kateryna HEALTH 350.1.13.10 it y of [place] 4.2.7.2.686 Scooter as PITO?BLEA [id number] [address] OFFICE [facility] 2022-05-28 2022-05-28 Outpatient R DAX [facility] [id number] Univers 12:00:00 11:55:[address] [facility] 2022-05-20 2022-05-20 Outpatient R YAZMIN [facility] [id number] Univers 20:40:00 20:40:[address] [facility] 2022-05-12 2022-05-[address] [facility] 1.2.840.114 [id number] Univers 00:00:00 00:00:00 Emre HEALTH 350.1.13.10 it y of [place] 4.2.7.2.686 Scooter as PITO?BLEA [id number] [place] no[place] SMITH [address] MEDICAL OFFICE [facility] 2022-04-29 2022-04-[address] [facility] 1.2.840.114 [id number] Univers 12:00:00 12:20:00 Care Bebeto [facility] 350.1.13.10 it [facility] 4.2.7.2.686 Scooter as PITO?BLEA [id number] [address] MEDICAL OFFICE [facility] 2022-04-29 2022-04-29 Outpatient R TYRELLAramis [facility] [id number] Univers 12:00:00 12:00:[address] [facility] 2022-04-04 2022-04-[address] [facility] 1.2.840.114 [id number] Univers 00:00:00 00:00:00 [facility] 350.1.13.10 it y of [place] 4.2.7.2.686 Scooter as PITO?BLEA [id number] [facility] [address] MEDICAL OFFICE [facility] 2022-03-28 2022-03-28 Urgent ZacharyJama meade [facility] 1.2.840. 114 [id number] Univers 16:20:00 16:40:[address] [facility] 350.1.13.10 ity of [facility] 4.2.7.2.686 Scooter as PITO?BLEA [id number] [address] MEDICAL OFFICE [facility] 2022-03-28 2022-03-28 Outpatient R ZACHARY, [facility] [id number] Univers 16:20:00 16:20:00 JAMA gant o f [facility] 2022-03-21 2022-03-21 Orders Doctor JEFFERY 1.2.840.114 [id number] Univers 00:00:00 00:00:00 Only Unassigned, GABO 350.1.13.10 ity of [place] [facility] 4.2.7.2.686 Scooter as [id number] [address] 2022-03-03 2022-03-[address] [facility] 1.2.840.114 [id number] Univers 00:00:00 00:00:00 Luis Miguel HEALTH 350.1.13.10 it y of [place] 4.2.7.2.686 Scooter as PITO?BLEA [id number] [facility] [address] MEDICAL OFFICE [facility] 2022-02-02 2022-02-02 Khoi Gan [facility] 1.2.390.103 [id number] Univers 00:00:00 00:00:[address] [facility] 350.1.13.10 it y of [place] 4.2.7.2.686 Scooter as PITO?BLEA [id number] [address] MEDICAL OFFICE [facility] 2022-01-28 2022-01-28 Outpatient R ELVIA [facility] [id number] Univers 11:30:00 11:30:[address] [facility] 2022-01-28 2022-01-28 Outpatient R ELVIA [facility] [id number] Univers 11:30:00 11:30:00 [facility] 2022-01-07 2022-01-07 Patient Doctor [facility] 1.2.840.114 [id number] Univers 00:00:00 00:00:00 Secure Msg Unassigned, HEALTH 350.1.13.10 ity of [place] [facility] 4.2.7.2.686 Scooter as PITO?BLEA [id number] [address] OFFICE [facility] 2022-01-05 2022-01-05 Urgent Bebeto Arce [facility] 1.2.840.114 [id number] Univers 13:20:00 13:20:00 [facility] 350.1.13.10 [facility]y [facility] 4.2.7.2.686 Scooter as PITO?BLEA [id number] [facility] [address] MEDICAL OFFICE [facility] 2022-01-05 2022-01-05 Outpatient R ANTONI [facility] [id number] Univers 13:20:00 10:49:31 [facility] 2022-01-05 2022-01-05 Letter Provider, [facility] 1.2.510.141 [id number] Univers 00:00:00 00:00:00 (Out) Ang Db HEALTH 350.1.13.10 it y of Urgent [place] 4.2.7.2.686 [place] PITO?BLEA [id number] [address] MEDICAL OFFICE [facility] 2022-01-05 2022-01-05 Telephone Yazmin [facility] 1.2.840.114 [id number] Univers 00:00:00 00:00:00 Rania HEALTH 350.1.13.10 it y of [place] 4.2.7.2.686 Scooter as PITO?BLEA [id number] [address] MEDICAL OFFICE [facility] 2022-01-04 2022-01-04 Orders Doctor JEFFERY 1.2.840.114 [id number] Univers 00:00:00 00:00:00 Only Unassigned, GABO 350.1.13.10 ity of [place] [facility] 4.2.7.2.686 Scooter as [id number] [address] 2021-12-31 2021-12-[address] [facility] 1.2.460.856 [id number] Univers 00:00:00 00:00:00 Emre HEALTH 350.1.13.10 it y of [place] 4.2.7.2.686 Scooter as PITO?BLEA [id number] [address] OFFICE [facility] 2021-12-31 2021-12-[address] [facility] 1.2.883.214 [id number] Univers 00:00:00 00:00:00 Emre HEALTH 350.1.13.10 it y of [facility] 4.2.7.2.686 Scooter as PITO?BLEA [id number] [address] OFFICE [facility] 2021-12-30 2021-12-30 Outpatient Pee GAN [facility] [id number] Univers 11:00:00 11:00:[address] [facility] 2021-12-30 2021-12-30 Outpatient Pee GAN [facility] [id number] Univers 11:00:00 11:00:[address] [facility] 2021-12-28 2021-12-28 Outpatient R [facility]LECT [facility] [id number] Univers 11:30:00 12:26:[address] [facility] [address] [facility] 1.2.018.466 [id number] Univers 00:00:00 00:00:00 Emre HEALTH 350.1.13.10 it y of [facility] 4.2.7.2.686 Scooter as PITO?BLEA [id number] [facility] [address] OFFICE [facility] 2021-11-04 2021-11-04 Outpatient R BELKIS [facility] [id number] Univers 11:30:00 11:30:[address] [facility] 2021-11-02 2021-11-02 Search Manager Lab, Ang - [facility] 1.2.840.1 14 [id number] Univers 16:30:00 16:45:00 Visit Elvia Emre HEALTH 350.1.13.10 ity of [place] 4.2.7.2.686 Scooter as PITO?BLEA [id number] [place] [facility] [address] [facility] OFFICE [facility] 2021-11-02 2021-11-02 Outpatient R ELVIASELECT [facility]ICAL [facility] [id number] Univers 15:00:00 16:27:[address] [facility] 2021-11-02 2021-11-02 Office SendyOn license of [facility] 1.2.840.114 [id number] Univers 15:00:00 16:27:02 Visit Emre HEALTH 350.1.13.10 it y of [facility] 4.2.7.2.686 Scooter as PITO?BLEA [id number] [address] OFFICE [facility] 2021-10-19 2021-10-19 Telephone [place] 1.2.840.114 [id number] Univers 00:00:00 00:00:00 Demetri Hyde HEALTH 350.1.13.[address] [facility] 4.2.7.2.[place] [id number] [address] 2021-10-18 2021-10-18 Outpatient R DEMETRI LAKE [facility] [id number] Univers 13:45:00 15:41:27 [place] [place] santiago ty [facility] 2021-10-18 2021-10-18 Office Joan Carlson [facility] 1.2.840.114 [id number] Univers 13:45:00 15:41:27 Visit Aleksandra Demetri Braeden Hyde HEALTH 350.1.13.10 ity of [place] [id number] [address] 2021-10-18 2021-10-18 Office Joan Carlson [facility] 1.2.[id number] [facility] 13:45:00 15:41:27 Visit Aleksandra Demetri Braeden [place] HEALTH 350.1.13.10 it[place] [id number] [address] 2021-10-18 2021-10-18 Outpatient R DEMETRI LAKE [facility] [id number] [facility] 13:45:00 15:41:[address] [facility] 2021-10-13 2021-10-[address] [facility] 1.2.479.[id number] [facility] 00:00:00 00:00:00 Emre HEALTH 350.1.13.10 it y of [place] 4.2.7.2.686 Scooter as PITO?BLEA [id number] [address] OFFICE [facility] 2021-10-05 2021-10-[address] [facility] 1.2.840.114 [id number] Univers 10:30:00 11:13:32 Visit Emre HEALTH 350.1.13.10 it y of [place] 4.2.7.2.686 Scooter as PITO?BLEA [id number] [address] OFFICE [facility] 2021-10-05 2021-10-05 Outpatient R ELVIA [facility] [id number] Univers 10:30:00 11:13:[address] [facility] 2021-10-05 2021-10-05 Outpatient R ELVIA [facility] [id number] Univers 10:30:00 10:30:[address] [facility] 2021-10-05 2021-10-05 Outpatient R ELVIASELECT [facility] [id number] Univers 10:30:00 10:30:[address] [facility] 2021-10-04 2021-10-[address] [facility] 1.2.888.370 [id number] Univers 00:00:00 00:00:00 Emre HEALTH 350.1.13.10 it y of [place] 4.2.7.2.686 Scooter as PITO?BLEA [id number] [address] OFFICE [facility] 2021-09-27 2021-09-27 Search Manager Lab, Ang - Db [facility] 1.2.840.1 14 [id number] Univers 10:30:00 10:45:00 Visit Emre Gan HEALTH 350.1.13.10 ity of [place] 4.2.7.2.686 Scooter as PITO?BLEA [id number] [facility] [address] [facility] OFFICE [facility] 2021-09-27 2021-09-27 Outpatient R SENDYKATHISELECT MEDICAL [facility] [id number] Univers 10:30:00 10:30:[address] [facility] 2021-09-27 2021-09-[address] [facility] 1.2.017.527 [id number] Univers 00:00:00 00:00:00 Emre HEALTH 350.1.13.10 it y of [place] 4.2.7.2.686 Scooter as PITO?BLEA [id number] [address] OFFICE [facility] 2021-09-24 2021-09-24 Outpatient R ELVIA [facility] [id number] Univers 16:30:00 17:11:[address] [facility] 2021-09-24 2021-09-[address] [facility] 1.2.840.114 [id number] Univers 16:30:00 17:11:50 Visit Emre HEALTH 350.1.13.10 it y of [place] 4.2.7.2.686 Scooter as PITO?BLEA [id number] [address] MEDICAL OFFICE [facility] 2021-09-24 2021-09-24 Outpatient Pee ELVIA [facility] [id number] Univers 16:30:00 17:11:[address] [facility] 2021-09-06 2021-09-06 Office Elvia [facility] 1.2.840.114 [id number] Univers 13:07:39 14:01:08 Visit Emre [facility] 350.1.13.10 it y of [place] 4.2.7.2.686 Scooter as PITO?BLEA [id number] [address] MEDICAL OFFICE [facility] 2021-09-06 2021-09-06 Outpatient Pee GAN [facility] [id number] Univers 13:00:00 14:01:[address] [facility] 2021-09-06 2021-09-06 Outpatient Pee GAN [facility] [id number] Univers 13:00:00 13:00:00 EMRE [facility] 2021-09-06 2021-09-06 Orders Doctor JEFFERY 1.2.840.114 [id number] Univers 00:00:00 00:00:00 Only Unassigned, GABO 350.1.13.10 ity of [place] [facility] 4.2.7.2.686 Scooter as [id number] [address] 2021-02-06 2021-02-06 Outpatient [facility]SELECT [facility] [id number] Univers 13:10:00 13:10:00 SHERIF [facility] 2021-01-16 2021-01-16 Outpatient [facility] [id number] Univers 13:10:00 13:10:00 [facility] Results Test Description Test Time Test Comments Results Result Comments Source POCT HEMOGLOBIN A1C TEST 2023-07-10 19:37:00 Test Item Value Reference Range Interpretation Comme nts POCT HBA1C (test code = 4548-4) 9.1 % 4-6 A Lab Interpretation (test code = 70990-9) [facility] [id number] 19:37:00 Test Item Value Reference Range Interpretation Comments POCT HBA1C (test code = 4548-4) 9.1 % 4-6 A Lab Interpretation (test code = Abnormal 99520-3) [facility] HEMOGLOBIN A1C [id number] 19:37:00 Test Item Value Reference Range Interpretation Comments POCT HBA1C (test code = 4548-4) 9.1 % 4-6 A Lab Interpretation (test code = Abnormal 60893-2) [facility] HEMOGLOBIN A1C [id number] 15:18:00 Test Item Value Reference Range Interpretation Comments POCT HBA1C (test code = 4548-4) 8.8 % 4-6 A Lab Interpretation (test code = Abnormal 43927-0) [facility] HEMOGLOBIN A1C [id number] 15:18:00 Test Item Value Reference Range Interpretation Comments POCT HBA1C (test code = 4548-4) 8.8 % 4-6 A Lab Interpretation (test code = Abnormal 07220-4) [facility] HEMOGLOBIN A1C [id number] 21:00:00 Test Item Value Reference Range Interpretation Comments POCT HBA1C (test code = 4548-4) 12.1 % 4-6 A Lab Interpretation (test code = Abnormal 23660-2) [facility] HEMOGLOBIN A1C [id number] 21:00:00 Test Item Value Reference Range Interpretation Comments POCT HBA1C (test code = 4548-4) 12.1 % 4-6 A Lab Interpretation (test code = Abnormal 02789-1) [facility]
[2023-07-24] MEDS ORDERED: ONDANSETRON 4 MG/2 ML VIAL ONE (18:38)
[2023-07-24] MEDS ORDERED: NA CHLORIDE 0.9% 500 ML ONE (18:38)
[2023-07-24 18:49] LABS: Absolute Lymphocytes (CBC) 1.6 K/uL (0.7-4.9); Lymphocytes % 7.8 % (15.3-44.8); MCV 87.4 fL (80-100); MPV 8.1 fL (7.6-11.3); Platelets 382 thou/uL (152-406); RBC Red Blood Cell Count 5.15 M/uL (4.33-5.43)
[2023-07-24 18:58] LABS: Albumin 3.9 g/dL (3.4-5.0); Bilirubin Total 0.5 mg/dL (0.2-1.0); Potassium 3.5 mEq/L (3.5-5.1); Protein, Total 8.2 g/dL (6.4-8.2)
--- NOTE | 2023-07-24 19:59 | RAD REPORT ---
EXAM DESCRIPTION: CTAbdomen Pelvis W Contrast - 07/24/2023 7:43 pm CLINICAL HISTORY: Abdominal pain. ABD PAIN COMPARISON: Abdomen Pelvis W Contrast dated 02/06/2022; Abdomen Pelvis W Contrast dated 11/03/2021; Abdomen Pelvis W Contrast dated 03/22/2021; Abdomen Pelvis W Contrast dated 11/14/2019 TECHNIQUE: Biphasic CT imaging of the abdomen and pelvis was performed with 100 ml non-ionic IV cont rast. All CT scans are performed using dose optimization technique as appropriate and may include automated exposure control or mA/KV adjustment according to patient size. FINDINGS: The lung bases are clear. The liver demonstrates small low-density lesion in the medial right lower lobe measuring 13 mm likely benign. Spleen, pancreas, adrenal glands and kidneys are within normal limits. No bowel obstruction, free air, free fluid or abscess. Appendectomy. No evidence of significant lym phadenopathy. 13 mm sclerotic focus left iliac bone noted, likely benign IMPRESSION: No acute intra-abdominal or pelvic finding.
--- NOTE | 2023-07-24 20:30 | ER ---
Nurse's Notes [facility] Name: Sergio Hilton Age: 22 yrs Sex: Male : 2000 Arrival Date: 07/24/2023 Time: 17:57 Bed 7 Private MD: Diagnosis: Nausea with vomiting, unspecified Presentation: 07/24 18:17 Chief complaint: Patient states: Cough and congestion since Monday, seen here, given rx nj1 for abx, not better. Today, having chills, vomit x3 along with nausea. Coronavirus screen: Vaccine status: Patient reports receiving the 2nd dose of the covid vaccine. Ebola Screen: Patient denies travel to an Ebola-affected area in the 21 days before illness onset. Initial Sepsis Screen: Does the patient meet any 2 criteria? HR > 90 bpm. No. Patient's initial sepsis screen is negative. Does the patient have a suspected source of infection? No. Patient's initial sepsis screen is negative. Risk Assessment: Do you want to hurt yourself or someone else? Patient reports no desire to harm self or others. Onset of symptoms was July 21, 2023. 18:17 Method Of Arrival: Ambulatory [facility] 18:17 Acuity: YURI 2 nj1 Historical: - Allergies: 18:20 Latex; nj1 - Home Meds: 18:20 citalopram oral [Active]; Lantus Sub-Q [Active]; metformin 500 mg Oral tab [Active]; nj1 Trazodone Oral [Active]; Mounjaro subcutaneous [Active]; oxcarbazepine oral [Active]; - PMHx: 18:20 diabetes mellitus; Leukemia; Irritable bowel syndrome; Bipolar disorder; nj1 - PSHx: 18:20 Appendectomy; nj1 - Immunization history:: Client reports receiving the 2nd dose of the Covid vaccine. - Social history:: Smoking status: Patient denies any tobacco usage or history of. Screenin:37 [facility] ED Fall Risk Assessment (Adult) History of falling in the last 3 months, ld1 including since admission No falls in past 3 months (0 pts). Abuse screen: Denies threats or abuse. Denies injuries from another. Nutritional screening: No deficits noted. Tuberculosis screening: No symptoms or risk factors identified. Assessment: 18:37 General: Appears in no apparent distress. comfortable, Behavior is calm, cooperative, ld1 appropriate for age. Pain: Denies pain. Neuro: Level of Consciousness is awake, alert, obeys commands, Oriented to person, place, time, situation. Cardiovascular: Capillary refill < 3 seconds Patient's skin is warm and dry. Rhythm is sinus tachycardia. Respiratory: Reports cough that is Airway is patent Respiratory effort is even, unlabored, Breath sounds are clear bilaterally. GI: Abdomen is flat, non-distended, Reports nausea, vomiting. : No signs and/or symptoms were reported regarding the genitourinary system. EENT: No signs and/or symptoms were reported regarding the EENT system. Derm: No signs and/or symptoms reported regarding the dermatologic system. Musculoskeletal: No signs and/or symptoms reported regarding the musculoskeletal system. 19:10 Reassessment: Patient appears in no apparent distress at this time. Patient and/or jb4 family updated on plan of care and expected duration. Pain level reassessed. Patient is alert, oriented x 3, equal unlabored respirations, skin warm/dry/pink. 20:00 Reassessment: Patient appears in no apparent distress at this time. Patient and/or jb4 family updated on plan of care and expected duration. Pain level reassessed. Patient is alert, oriented x 3, equal unlabored respirations, skin warm/dry/pink. 20:45 Reassessment: Patient appears in no apparent distress at this time. Patient and/or jb4 family updated on plan of care and expected duration. Pain level reassessed. Patient is alert, oriented x 3, equal unlabored respirations, skin warm/dry/pink. Vital Signs: 18:17 BP 130 / 86; Pulse 121; Resp 18; Temp 98.5; Pulse Ox 100% ; Weight 69.4 kg; Height 5 nj1 ft. 5 in. ; Pain 6/10; 18:37 BP 123 / 83; Pulse 120; Resp 18; Pulse Ox 99% on R/A; Pain 0/10; ld1 20:00 BP 125 / 83; Pulse 110; Resp 16; Pulse Ox 97% on R/A; jb4 20:36 Pulse 103; Resp 18 S; Pulse Ox 98% on R/A; cm10 18:17 Body Mass Index 25.46 (69.40 kg, 165.1 cm) nj 18:17 Pain Scale: Adult nj1 18:37 Pain Scale: Adult ld1 ED Course: 17:59 Patient arrived in ED. rg4 18:03 Leroy Cervantes DO is Attending Physician. ms3 18:20 Triage completed. nj1 18:23 Arm band placed on right wrist. nj1 18:36 Tammy Cervantes, RN is Primary Nurse. ld1 18:37 Patient has correct armband on for positive identification. Bed in low position. Call ld1 light in reach. Side rails up X2. Pulse ox on. NIBP on. monitor and storage bin tender on. Door closed. Noise minimized. Warm blanket given. 18:37 CMP Sent. ld1 18:37 CBC with Diff Sent. ld1 18:37 No provider procedures requiring assistance completed. Inserted saline lock: 20 gauge ld1 in right antecubital area, using aseptic technique. Blood collected. 19:44 CT Abd/Pelvis - IV Contrast Only In Process Unspecified. EDMS 20:25 Rex Trinidad DO is Referral Physician. ms3 20:45 IV discontinued, intact, bleeding controlled, No redness/swelling at site. Pressure jb4 dressing applied. Administered Medications: 18:36 Drug: Ondansetron IVP 4 mg IVP once; over 2 minutes Route: IVP; Site: right antecubital;ld1 18:37 Drug: NS 0.9% IV 500 ml IV at bolus once Route: IV; Rate: bolus; Site: right ld1 antecubital; Medication: 18:37 VIS not applicable for this client. ld1 Outcome: 20:29 Discharge ordered by MD. ms3 20:45 Discharged to home ambulatory, jb4 20:45 Condition: stable 20:45 Discharge instructions given to patient, Instructed on discharge instructions, follow up and referral plans. medication usage, Demonstrated understanding of instructions, follow-up care, medications, Prescriptions given X 1, 20:45 Patient left the ED. jb4 Signatures: Dispatcher [employer] LUISMS Ruth Del Real rg4 Flaco Doherty RN RN jb4 Leroy Cervantes DO DO ms3 Tammy Cervantes, RN RN ld1 Judi Abdul RN RN nj1 Meenakshi Joe RN RN cm10 Corrections: (The following items were deleted from the chart) 18:22 18:20 Home Meds: Glipizide Oral; nj1 nj1 18:22 18:20 PMHx: Diabetes - NIDDM; nj1 nj1 18:23 18:17 Acuity: YURI 3 nj1 nj1
--- NOTE | 2023-07-24 20:31 | EDPHYS ---
Physician Documentation [facility] Name: Sergio Hilton Age: 22 yrs Sex: Male : 2000 Arrival Date: 07/24/2023 Time: 17:57 Bed 7 Private MD: ED Physician Leroy Cervantes HPI: 07/24 18:18 This 22 yrs old Male presents to ER via Unassigned with complaints of Cough, ms3 Congestion, Abdominal Pain, Nausea. 18:18 22-year-old male with past medical history of leukemia in remission, diabetes type 2 ms3 presents for nausea and vomiting that began at 5:30 PM. Patient states he ate at [id number] at 4 PM. Patient denies pain or diarrhea at this time. Historical: - Allergies: 18:20 Latex; nj1 - Home Meds: 18:20 citalopram oral [Active]; Lantus Sub-Q [Active]; metformin 500 mg Oral tab [Active]; nj1 Trazodone Oral [Active]; Mounjaro subcutaneous [Active]; oxcarbazepine oral [Active]; - PMHx: 18:20 diabetes mellitus; Leukemia; Irritable bowel syndrome; Bipolar disorder; nj1 - PSHx: 18:20 Appendectomy; nj1 - Immunization history:: Client reports receiving the 2nd dose of the Covid vaccine. - Social history:: Smoking status: Patient denies any tobacco usage or history of. ROS: 18:18 Constitutional: Negative for fever, and chills. Neck: Negative for injury, pain, and ms3 swelling, Cardiovascular: Negative for chest pain, and palpitations. Respiratory: Negative for shortness of breath, cough, wheezing, and pleuritic chest pain, MS/Extremity: Negative for injury and deformity, Skin: Negative for injury, rash, and discoloration, 18:18 Abdomen/GI: Positive for nausea and vomiting, 18:18 All other systems are negative, Exam: 18:18 Constitutional: This is a well developed, well nourished patient who is awake, alert, ms3 and in no acute distress. Head/Face: Normocephalic, atraumatic. Neck: Trachea midline, no cervical lymphadenopathy. Supple, full range of motion without nuchal rigidity, or vertebral point tenderness. No Meningismus. Chest/axilla: Normal chest wall appearance and motion. Nontender with no deformity. Cardiovascular: Regular rate and rhythm with a normal S1 and S2. No gallops, murmurs, or rubs. Normal PMI, no JVD. No pulse deficits. Respiratory: Lungs have equal breath sounds bilaterally, clear to auscultation and percussion. No rales, rhonchi or wheezes noted. No increased work of breathing, no retractions or nasal flaring. 18:18 Skin: Warm, dry with normal turgor. Normal color with no rashes, no lesions, and no evidence of cellulitis. MS/ Extremity: Pulses equal, no cyanosis. Neurovascular intact. Full, normal range of motion. 18:18 Abdomen/GI: Inspection: abdomen appears normal, Bowel sounds: normal, Palpation: abdomen is soft and non-tender, Vital Signs: 18:17 BP 130 / 86; Pulse 121; Resp 18; Temp 98.5; Pulse Ox 100% ; Weight 69.4 kg; Height 5 nj1 ft. 5 in. ; Pain 6/10; 18:37 BP 123 / 83; Pulse 120; Resp 18; Pulse Ox 99% on R/A; Pain 0/10; ld1 20:00 BP 125 / 83; Pulse 110; Resp 16; Pulse Ox 97% on R/A; jb4 20:36 Pulse 103; Resp 18 S; Pulse Ox 98% on R/A; cm10 18:17 Body Mass Index 25.46 (69.40 kg, 165.1 cm) nj1 18:17 Pain Scale: Adult nj1 18:37 Pain Scale: Adult ld1 MDM: 18:12 Patient medically screened. ms3 18:18 Differential Diagnosis: Other Dehydration versus vomiting versus electrolyte ms3 abnormality. 20:29 Data reviewed: vital signs, nurses notes, lab test result(s), radiologic studies, and ms3 as a result, I will discharge patient. I considered the following discharge prescriptions or medication management in the emergency department Medications were administered in the Emergency Department. See MAR. Counseling: I had a detailed discussion with the patient and/or guardian regarding the historical points, exam findings, and any diagnostic results supporting the discharge/admit diagnosis, lab results, radiology results, the need for outpatient follow up, to return to the emergency department if symptoms worsen or persist or if there are any questions or concerns that arise at home. Special discussion: Based on the patient's Hx, exam, and Dx evaluation, there is no indication for emergent surgery or inpatient Tx. It is understood by the patient/guardian that if the Sx's persist or worsen they need to return immediately for re-evaluation. ED course: Discussed labs, CT scan with patient. Discussed with patient elevated white blood count could be early intra-abdominal process versus violent emesis prior to arrival. Patient states he is improved at this time, patient is alert and orient x4, in no apparent distress, nontoxic-appearing, ambulatory in emergency department, speaking full sentences, abdomen nontender to palpation, patient tolerating p.o. Patient to follow-up with primary care physician in 2 to 3 days. Patient understands and agrees with plan. All questions were answered. Prescription given for Zofran 4 mg ODT. Return precautions discussed include worsening symptoms, fevers, or any other concerns. 07/24 18:14 Order name: CBC with Diff ms3 07/24 18:14 Order name: CMP; Complete Time: 19:05 ms3 07/24 19:06 Order name: CT Abd/Pelvis - IV Contrast Only; Complete Time: 20:08 ms3 07/24 18:14 Order name: PO challenge; Complete Time: 18:37 ms3 Administered Medications: 18:36 Drug: Ondansetron IVP 4 mg IVP once; over 2 minutes Route: IVP; Site: right antecubital;ld1 18:37 Drug: NS 0.9% IV 500 ml IV at bolus once Route: IV; Rate: bolus; Site: right ld1 antecubital; Disposition Summary: 07/24/23 20:29 Discharge Ordered Notes: Location: Home ms3 Condition: Stable ms3 Diagnosis - Nausea with vomiting, unspecified ms3 Followup: ms3 - With: Rex Trinidad, - When: 2 - 3 days - Reason: Recheck today's complaints Discharge Instructions: - Discharge Summary Sheet ms3 - Nausea and Vomiting, Adult ms3 Forms: - Work release form jb4 - Medication Reconciliation Form ms3 - Thank You Letter ms3 - Antibiotic Education ms3 - Prescription Opioid Use ms3 - Patient Portal Instructions ms3 - Leadership Thank You Letter ms3 Prescriptions: - ondansetron 4 mg Oral Tablet,disintegrating - take 1 tablet ORAL route every 8 hours; 15 tablet; Refills: 0, Product ms3 Selection Permitted Signatures: Dispatcher [employer] EDMS Leroy Cervantes, DO DO ms3 Tammy Cervantes RN RN ld1 Judi Abdul RN RN nj1 Corrections: (The following items were deleted from the chart) 18: 18:20 Home Meds: Glipizide Oral; [place] [id number] 18: 18:20 PMHx: Diabetes - NIDDM; [place] [id number]
[2023-07-24 21:36] VITALS: TEMP 98.5
[2023-07-24 21:53] VITALS: BP 125/83
[2023-07-24 21:54] VITALS: O2SAT 98
[2023-07-24 22:10] LABS: Blood Morphology Comment NOT SEEN (NOT SEEN); Platelet Estimate ADEQ
== END 2023-07-24 20:45 | disposition home or self-care (01) ==
LOC: ER 17:57
DX: R11.2 Nausea with vomiting, unspecified (principal); E11.9 Type 2 diabetes mellitus without complications; F31.9 Bipolar disorder, unspecified; Z79.4 Long term (current) use of insulin; Z85.6 Personal history of leukemia; Z91.040 Latex allergy status
CPT/HCPCS: 85025; 36415; 80053; 74177; 96374; 99285; Q9967; J2405; J7040

== ENCOUNTER 2024-03-18 19:14 | Emergency (ER) | payer OTHER ==
--- NOTE | 2024-03-18 19:34 | EDPHYS ---
Physician Documentation [facility] Name: Sergio Hilton Age: 23 yrs Sex: Male : 2000 Arrival Date: 03/18/2024 Time: 19:14 Bed IW3 Private MD: ED Physician Sven Zhang HPI: 03/18 19:25 This 23 yrs old Male presents to ER via Unassigned with complaints of Foot kb Injury. 19:25 Pt is a 23 year old male with a history of type 2 diabetes who presents to have his kb foot checked out. Reports a patch of skin is missing from bottom of right foot. Denies fever, swelling, redness, pain. . Historical: - Allergies: 19:30 No Known Allergies; mb9 - PMHx: 19:30 Bipolar disorder; diabetes mellitus; Irritable bowel syndrome; Leukemia; mb9 - PSHx: 19:30 Appendectomy; mb9 - Immunization history:: Adult Immunizations up to date. - Infectious Disease History:: Denies. - Social history:: Smoking status: Patient denies any tobacco usage or history of. ROS: 19:25 Constitutional: As per HPI kb Exam: 19:25 Constitutional: This is a well developed, well nourished patient who is awake, alert, kb and in no acute distress. Head/Face: Normocephalic, atraumatic. ENT: Moist Mucous membranes Cardiovascular: Regular rate Respiratory: Respirations even and unlabored. No increased work of breathing. Talking in full sentences Abdomen/GI: Soft, non-tender. No distention MS/ Extremity: Pulses equal, no cyanosis. Neurovascular intact. Full, normal range of motion. Neuro: Awake and alert, GCS 15, oriented to person, place, time, and situation. Moves all extremities. Normal gait. 19:25 Skin: dime-sized area to ball of right foot with first layer of skin missing. No erythema, swelling, drainage.. Vital Signs: 19:29 BP 139 / 96; Pulse 95; Resp 18; Temp 98.1; Pulse Ox 100% ; Weight 70.31 kg; Height 5 mb9 ft. 5 in. ; 19:29 Body Mass Index 25.79 (70.31 kg, 165.1 cm) mb9 MDM: 19:24 Patient medically screened. kb 19:28 Data reviewed: vital signs, nurses notes. 19:32 Differential diagnosis: diabetic ulcer, abscess, open wound. Counseling: I had a kb detailed discussion with the patient and/or guardian regarding the historical points, exam findings, and any diagnostic results supporting the discharge/admit diagnosis, the need for outpatient follow up, a family practitioner, to return to the emergency department if symptoms worsen or persist or if there are any questions or concerns that arise at home. 03/18 19:33 Order name: Blood Glucose Level; Complete Time: :33 kb Administered Medications: No medications were administered Disposition: 20:01 Co-signature as Attending Physician, Sven Zhang MD I reviewed the patient's care rt provided by the Advanced Practice Provider and agree with the diagnosis and treatment plan. Disposition Summary: 03/18/24 19:33 Discharge Ordered Notes: Location: Home kb Condition: Stable kb Diagnosis - Person with feared health complaint in whom no diagnosis is made kb Followup: kb - With: Emergency Department - When: As needed - Reason: Worsening of condition Followup: kb - With: Private Physician - When: 2 - 3 days - Reason: Recheck today's complaints, Continuance of care, Re-evaluation by your physician Discharge Instructions: - Diabetes Mellitus and Foot Care kb - Diabetes Mellitus and Skin Care kb - Discharge Summary Sheet mb9 Forms: - Medication Reconciliation Form kb - Antibiotic Education kb - Prescription Opioid Use kb - Patient Portal Instructions kb - Leadership Thank You Letter kb - Work release form mb9 Signatures: Jessica Pantoja FNP-C FNP-Ckb Breneman, Mary Beth RN RN mb9 Sven Zhang MD MD rt Corrections: (The following items were deleted from the chart) 19:29 19:25 Pt is a 23 year old male with a history of type 2 diabetes who presents to have kb his foot checked out. Reports a patch of skin is missing from bottom of right foot. Denies fever, swelling, redness, pain. . kb
--- NOTE | 2024-03-18 19:34 | ER ---
Nurse's Notes [facility] Name: Sergio Hilton Age: 23 yrs Sex: Male : 2000 Arrival Date: 03/18/2024 Time: 19:14 Bed IW3 Private MD: Diagnosis: Person with feared health complaint in whom no diagnosis is made Presentation: 03/18 19:29 Chief complaint: Patient states: Pt is a 23 year old male with a history of type 2 mb9 diabetes who presents to have his foot checked out. Reports a patch of skin is missing from bottom of right foot. Denies fever, swelling, redness, pain. Coronavirus screen: At this time, the client does not indicate any symptoms associated with coronavirus-19. Ebola Screen: No symptoms or risks identified at this time. Initial Sepsis Screen: Does the patient meet any 2 criteria? No. Patient's initial sepsis screen is negative. Does the patient have a suspected source of infection? No. Patient's initial sepsis screen is negative. Risk Assessment: Do you want to hurt yourself or someone else? Patient reports no desire to harm self or others. Onset of symptoms was March 18, 2024. 19:29 Method Of Arrival: Ambulatory 9 19:29 Acuity: YURI 4 mb9 Triage Assessment: 19:30 General: Appears in no apparent distress. Behavior is calm, cooperative. Pain: mb9 Complains of pain in right foot. EENT: No signs and/or symptoms were reported regarding the EENT system. Neuro: Level of Consciousness is awake, alert, obeys commands, Oriented to person, place, time, situation, Appropriate for age. Cardiovascular: Patient's skin is warm and dry. Respiratory: Airway is patent Respiratory effort is even, unlabored, Respiratory pattern is regular, symmetrical. GI: No signs and/or symptoms were reported involving the gastrointestinal system. : No signs and/or symptoms were reported regarding the genitourinary system. Derm: Skin is pink, warm \T\ dry. Musculoskeletal: Range of motion: intact in all extremities. Historical: - Allergies: 19:30 No Known Allergies; mb9 - PMHx: 19:30 Bipolar disorder; diabetes mellitus; Irritable bowel syndrome; Leukemia; mb9 - PSHx: 19:30 Appendectomy; mb9 - Immunization history:: Adult Immunizations up to date. - Infectious Disease History:: Denies. - Social history:: Smoking status: Patient denies any tobacco usage or history of. Screenin:32 [facility] ED Fall Risk Assessment (Adult) History of falling in the last 3 months, mb9 including since admission No falls in past 3 months (0 pts) Confusion or Disorientation No (0 pts) Intoxicated or Sedated No (0 pts) Impaired Gait No (0 pts) Mobility Assist Device Used No (0 pt) Altered Elimination No (0 pt) Score/Fall Risk Level 0 - 2 = Low Risk Oriented to surroundings, Maintained a safe environment, Educated pt \T\ family on fall prevention, incl call for assistance when getting out of bed. Abuse screen: Denies threats or abuse. Nutritional screening: No deficits noted. Tuberculosis screening: No symptoms or risk factors identified. Assessment: 19:32 Reassessment: see triage assessment. mb9 Vital Signs: 19:29 BP 139 / 96; Pulse 95; Resp 18; Temp 98.1; Pulse Ox 100% ; Weight 70.31 kg; Height 5 mb9 ft. 5 in. ; 19:29 Body Mass Index 25.79 (70.31 kg, 165.1 cm) mb9 ED Course: 19:19 Patient arrived in ED. jj6 19:24 [facility]C [facility] kb 19:24 Sven Zhang MD is Attending Physician. kb 19:30 Triage completed. mb9 19:31 Arm band placed on. mb9 19:32 Patient has correct armband on for positive identification. Provided Education on: . mb9 19:33 No provider procedures requiring assistance completed. Patient did not have IV access mb9 during this emergency room visit. 19:36 Katina Burnett, RN is Primary Nurse. mb9 Administered Medications: No medications were administered Medication: 19:32 VIS not applicable for this client. mb9 Outcome: 19:33 Discharged to home ambulatory, mb9 19:33 Condition: stable 19:33 Discharge instructions given to patient, Instructed on discharge instructions, follow up and referral plans. Demonstrated understanding of instructions, follow-up care, 19:33 Discharge ordered by . kb 19:36 Patient left the ED. mb9 Signatures: Jessica Pantoja FNP-C FNP-Ivett Grossman j6 Breneman, Clover, RN RN mb9
--- OUTSIDE RECORDS SUMMARY | 2024-03-18 19:40 | XMS REPORT | Continuity of Care Document ---
Author Name Unknown Address [address] [facility] [phone] [place] [address] [facility] thconnect Address [address] [facility] [address] [place] [address] Care Team Providers Care Actuarial Associate Name Role Phone Emre Nieves Primary Care Physician [phone] MELLY BARBER Attending Clinician Unavailable Melly Guzman Attending Clinician [phone] EMRE GAN Attending Clinician Unavailable Emre Nieves Attending Clinician + [phone] ANN CHIRINOS Attending Clinician Unavailable Doctor Unassigned, [place] Attending Clinician [facility] navailable Lab, Ang - Db Attending Clinician Unavailable Ann Fisher Attending Clinician + [phone] RICHARD CRUZ Attending Clinician UnavailRichard Desir MD Attending Clinician + [phone] ROSEANNE LEVINE Attending Clinician Unavailable Roseanne Levine MD Attending Clinician [phone] Luis Miguel Estrada MD Attending Clinician [phone] Bebeto Navas Attending Clinician [phone] Kateryna Verduzco MD Attending Clinician [phone] KATERYNA VERDUZCO Attending Clinician Unavailable BEBETO ARCE Attending Clinician Unavailable Zachary FUNEZP, Jama Attending Clinician JAMA LEE Attending Clinician Unavailsawyer Hurt MIRROR PAINTER, Heide Attending Clinician [phone] HEIDE HURT Attending Clinician Unavailable Provider, [facility] Attending Clinician Unavailable CHRISTOPHER TAMAYO Attending Clinician Unavailable Demetri Lake MD Attending Clinician [phone] DEMETRI LAKE Attending Clinician Unavailable DEMETRI LAKE Attending Clinician Unavailable Joan Carlson MD Attending Clinician [phone] SHERIF HERNANDEZ Attending Clinician Unavailable ROSEANNE LEVINE Admitting Clinician Unavailable Payers Payer Name Policy Type Policy Number Effective Date Expirati on Date Source [facility] [id number] 2022 00:00:00 [facility] MEDICAID [id number] 2018 00:00:00 Problems Condition Name Condition Details Condition Category Status Onset Date Resolution Date Last Treatment Date Treating Clinician Comments Source Dyslipidem ia Dyslipidem ia Disease Active 11-25 00:00: 00 [facility] NAFLD (nonalcoho lic fatty liver disease) NAFLD (nonalcoho lic fatty liver disease) Disease Active 11-25 00:00: 00 [facility] Non compliance with medical treatment Non compliance with medical treatment Disease Active 11-25 00:00: 00 [facility] Type 2 diabetes mellitus with hyperglyce jared, without long-term current use of insulin Type 2 diabetes mellitus with hyperglyce jared, without long-term current use of insulin Disease Active 11-25 00:00: 00 [facility] Exposure to medical therapeuti c radiation Exposure to medical therapeuti c radiation Disease Active 11-15 00:00: 00 Overview: Formattin g of this note might be different from the original. Formattin g of this note might be different from the original. TBI [id number] part of BMT Condition ing Regimen [facility] History of appendecto my History of appendecto my Disease Active 11-15 00:00: 00 Overview: Formattin g of this note might be different from the original. Formattin g of this note might be different from the original. Surigcal removal 11/15/2019 at outside hospital [facility] At risk for alteration in endocrine function At risk for alteration in endocrine function Disease Active 11-19 00:00: 00 [facility] Obesity due to excess calories without serious comorbidit y with body mass index (BMI) in 95th to 98th percentile for age in pediatric patient Obesity due to excess calories without serious comorbidit y with body mass index (BMI) in 95th to 98th percentile for age in pediatric patient Disease Active 11-19 00:00: 00 [facility] At risk for alteration in endocrine function At risk for alteration in endocrine function Disease Active 11-19 00:00: 00 [facility] Obesity due to excess calories without serious comorbidit y with body mass index (BMI) in 95th to 98th percentile for age in pediatric patient Obesity due to excess calories without serious comorbidit y with body mass index (BMI) in 95th to 98th percentile for age in pediatric patient Disease Active 11-19 00:00: 00 [facility] Care 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 Care 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 Disease Active 2017-10 1 00:00: 00 [facility] Mild cognitive impairment Mild cognitive impairment Disease Active 03-20 00:00: 00 [facility] Abnormal echocardio gram findings without diagnosis Abnormal echocardio gram findings without diagnosis Disease Active 5- 00:00: 00 [facility] Adjustment disorder with depressed mood Adjustment disorder with depressed mood Disease Active 01-04 00:00: 00 [facility] Irritable bowel Irritable bowel Disease Active 317 00:00: 00 [facility] Vitamin D deficiency Vitamin D deficiency Disease Active 01-24 00:00: 00 Overview: Formattin g of this note might be different from the original. Formattin g of this note might be different from the original. 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 Disease Active 01-24 00:00: 00 [facility] Leukemia, acute lymphoid, in remission Leukemia, acute lymphoid, in remission Disease Active 06-09 00:00: 00 [facility] 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 Formattin g of this note might be different from the original. Taking focalin [facility] Essential hypertensi on Essential hypertensi on Disease Active 10-29 00:00: 00 Overview: Formattin g of this note might be different from the original. ICD10 Diagnosis Term Thermoplastic Technician Utility [facility] Blood transfusio n without reported diagnosis Blood transfusio n without reported diagnosis Disease Active Overview: Formattin g of this note might be different from the original. ICD10 Diagnosis Term Thermoplastic Technician Utility [facility] Leukemia Leukemia Disease Active Unive [facility] Allergies, Adverse Reactions, Alerts Allergy Name Allergy Type Status Severity Reaction(s) Onset Date Inactive Date Treating Clinician Comments Source Permethr in Propensi ty to adverse reaction s Active Itching 04-29 00:00: 00 [facility] PERMETHR IN DRUG INGREDI Active ITCHING 04-29 00:00: 00 [facility] Latex Propensi ty to adverse reaction s Active Rash 02-23 00:00: 00 Redness to site where latex touches [facility] LATEX DRUG INGREDI Active Med Rash 02-23 00:00: 00 [facility] Pegaspar gase Propensi ty to adverse reaction s Active Hives 12-03 00:00: 00 Pre-medic ate peg-aspar aginase with diphenhyd ramine [facility] PEGASPAR GASE DRUG INGREDI Active Low Hives 12-03 00:00: 00 [facility] Social History Social Habit Start Date Stop Date Quantity Comments Source History of tobacco use Passive smoker [facility] Alcohol intake 2023-07-31 00:00:00 2023-07-31 00:00:00 Current non-drinker of alcohol (finding) [facility] Alcoholic beverage intake 2023-07-31 00:00:00 2023-07-31 00:00:00 Current non-drinker of alcohol (finding) [facility] Exposure to SARS-CoV-2 (event) 2023-03-14 00:00:00 2023-03-24 09:25:00 Not sure [facility] History of Social function 2023-03-24 00:00:00 2023-03-24 00:00:00 [facility] Tobacco use and exposure 2022-06-20 00:00:00 2022-06-20 00:00:00 Smokeless tobacco non-user [facility] Tobacco Comment 2022-06-20 00:00:00 2022-06-20 00:00:00 Family smokes outside [facility] Sex assigned at 2000 00:00:00 2000 00:00:00 [facility] Smoking Status Start Date Stop Date Source Never smoked tobacco [facility] Medications Ordered Medication Name Filled Medication Name Start Date Stop Date Current Medication? Ordering Clinician Indication Dosage Frequency Signature (SIG) Comments Components Source ROSUVASTATI N 20 mg tablet 2022-10 00:00: 00 Yes [id number] 20mg TAKE 1 TABLET BY MOUTH EVERYDAY AT BEDTIME [facility] ibuprofen 600 mg tablet 2022-10 0 00:00: 00 Yes TAKE 1 TABLET BY MOUTH EVERY 6 HOURS NEEDED (TAKE WITH FOOD) [facility] blood sugar diagnostic (ONETOUCH ULTRA TEST) strip 2022-10 00:00: 00 Yes [id number] Use as directed to test blood sugars twice daily E11.65 [facility] Blood-Gluco [place] Meter (ONETOUCH VERIO MET[place] [facility] [place] 0 00:00: 00 Yes Use as directed to check blood sugars twice daily E11.65 [facility] Lancets (ONETOUCH ULTRASOFT LANCETS[place] [facility] [place] 0 00:00: 00 Yes Use as directed to check blood sugars twice daily E11.65 [facility] trazodone HCl (TRAZODONE ORAL) 2022-10 0 11:40: 51 07-18 00:00 :00 No Take by mouth. [facility] citalopram 10 mg tablet 2022-10 11:40: 51 07-18 00:00 :00 No 10mg Take 10 mg by mouth daily. [facility] tirzepatide (MOUNJARO) 5 mg/0.5 mL PnIj 2022-10 00:00: 00 Yes [id number] 5mg inject 5 mg under the skin weekly. [facility] Blood-Gluco se Sensor (FREESTYLE BURAK 3 SENSOR) [facility] 2022-10 00:00: 00 07-20 00:00 :00 No [id number] 1{each} inject 1 Each under the skin every 14 (fourteen) days. Use as directed to check blood sugar 4X for uncontroll ed type 2 diabetes. Diagnosis E11.65 [facility] citalopram 20 mg tablet 2022-10 0 00:00: 00 Yes 20mg Take 1 tablet by mouth in the morning. [facility] traZODone 50 mg tablet 2022-10 0 00:00: 00 Yes 50mg Take 1 tablet by mouth at bedtime. [facility] proMETHazin e 25 mg tablet 2022-10 0 00:00: 00 Yes [id number] 25mg Take 1 tablet by mouth every 6 (six) hours as needed for Nausea and Vomiting (N/V). [facility] Insulin Glargine (LANTUS SOLOSTAR U-100 INSULIN) 100 unit/mL (3 mL) injection 2022-10 0-02 00:00: 00 Yes [id number] 20U inject 20 Units under the skin in the morning and 20 Units in the evening. [facility] Insulin Glargine (LANTUS SOLOSTAR U-100 INSULIN) 100 unit/mL (3 mL) injection 2022-10 0-02 00:00: 00 Yes [id number] 20U inject 20 Units under the skin in the morning and 20 Units in the evening. [facility] semaglutide (OZEMPIC) 1 mg/dose (4 mg/3 mL) PnIj 8-18 00:00: 00 07-18 00:00 :00 No [id number] 1mg inject 1 mg under the skin weekly. [facility] Insulin Glargine (LANTUS SOLOSTAR U-100 INSULIN) 100 unit/mL (3 mL) injection -14 00:00: 00 07-10 00:00 :00 No [id number] 15U inject 15 Units under the skin in the morning and 15 Units in the evening. [facility] semaglutide (OZEMPIC) 0.25 mg or 0.5 mg(2 mg/1.5 mL) Ij 7-06 00:00: 00 05-26 00:00 :00 No [id number] .5mg inject 0.5 mg under the skin weekly. [facility] Insulin Glargine (LANTUS SOLOSTAR U-100 INSULIN) 100 unit/mL (3 mL) injection 03-31 00:00: 00 04-21 00:00 :00 No [id number] 15U inject 15 Units under the skin in the morning and 15 Units in the evening. [facility] semaglutide (OZEMPIC) 0.25 mg or 0.5 mg(2 mg/1.5 mL) Ij - 00:00: 00 04-13 00:00 :00 No [id number] .25mg inject 0.25 mg under the skin weekly. [facility] icosapent ethyL (VASCEPA) 1 gram capsule 2022-0 6-16 00:00: 00 Yes [id number] 2g Take 2 capsules by mouth in the morning and 2 capsules in the evening. [facility] ezetimibe 10 mg tablet 0 6-16 00:00: 00 Yes [id number] 10mg Take 1 tablet by mouth in the morning. [facility] lisinopriL 2.5 mg tablet 0 6-16 00:00: 00 Yes [id number] 2.5mg Take 1 tablet by mouth in the morning. [facility] rosuvastati n (CRESTOR) 20 mg tablet 0 6-16 00:00: 00 09-29 00:00 :00 No [id number] 20mg Take 1 tablet by mouth at bedtime. [facility] icosapent ethyL (VASCEPA) 1 gram capsule 0 6-14 00:00: 00 03-24 00:00 :00 No [id number] 2g Take 2 capsules by mouth in the morning and 2 capsules in the evening. [facility] ezetimibe 10 mg tablet 0 5-22 00:00: 00 03-24 00:00 :00 No [id number] 10mg Take 1 tablet by mouth in the morning. [facility] icosapent ethyL (VASCEPA) 1 gram capsule 0 4-14 00:00: 00 03-22 00:00 :00 No [id number] 2g Take 2 capsules by mouth in the morning and 2 capsules in the evening. [facility] rosuvastati n (CRESTOR) 20 mg tablet 0 4-03 00:00: 00 03-24 00:00 :00 No [id number] 20mg Take 1 tablet by mouth at bedtime. [facility] lisinopriL 2.5 mg tablet 0 1-10 00:00: 00 03-24 00:00 :00 No [id number] 2.5mg Take 1 tablet by mouth in the morning. [facility] metformin ER 750 mg 24 hr tablet 2021-10 2-30 00:00: 00 Yes [id number] 750mg Take 1 tablet by mouth daily with breakfast. [facility] glipiZIDE XL 10 mg 24 hr tablet 2021-10 2 00:00: 00 04-21 00:00 :00 No [id number] 20mg Take 2 tablets by mouth daily with breakfast. [facility] LISINOPRIL 2.5 mg tablet 2021-10 0-13 00:00: 00 10-18 00:00 :00 No [id number] TAKE 1 TABLET BY MOUTH EVERY DAY [facility] ezetimibe 10 mg tablet 07-05 00:00: 00 02-27 00:00 :00 No [id number] 10mg Take 1 tablet by mouth in the morning. [facility] rosuvastati n (CRESTOR) 20 mg tablet 07-05 00:00: 00 01-09 00:00 :00 No [id number] 20mg Take 1 tablet by mouth at bedtime. [facility] icosapent ethyL (VASCEPA) 1 gram capsule 06-22 00:00: 00 07-23 04:59 :00 No [id number] 2g Take 2 capsules by mouth in the morning and 2 capsules in the evening. Do all this for 30 days. [facility] semaglutide (OZEMPIC) 0.25 mg or 0.5 mg(2 mg/1.5 mL) PnIj 06-20 00:00: 00 03-24 00:00 :00 No [id number] .5mg inject 0.5 mg under the skin weekly. Start 0.25 mg weekly for 4 weeks, then 0.5 mg thereafter [facility] glipiZIDE XL 10 mg 24 hr tablet 06-20 00:00: 00 10-07 00:00 :00 No [id number] 10mg Take 1 tablet by mouth daily with breakfast. [facility] metformin ER 750 mg 24 hr tablet 06-20 00:00: 00 10-07 00:00 :00 No [id number] 750mg Take 1 tablet by mouth daily with breakfast. [facility] clobetasoL 0.05 % ointment 8-05 00:00: 00 Yes [id number] Apply to area(s) 2 (two) times daily. [facility] lisinopriL 2.5 mg tablet 27 00:00: 00 07-21 00:00 :00 No [id number] 2.5mg Take 1 tablet by mouth daily. [facility] Cholecalcif ricardo, Vitamin D3, 50 mcg (2,000 unit) capsule 03-06 00:00: 00 Yes 2{capsu le} Take 2 capsules by mouth daily. [facility] Cholecalcif ricardo, Vitamin D3, 50 mcg (2,000 unit) capsule 03-06 00:00: 00 Yes 4000U Take 2 capsules by mouth in the morning. [facility] guanFACINE ER 3 mg tablet 03-06 00:00: 00 Yes TAKE 1 TABLET BY MOUTH NIGHTLY [facility] ROSUVASTATI N 20 mg tablet 03-03 00:00: 00 07-05 00:00 :00 No [id number] 20mg TAKE 1 TABLET BY MOUTH AT BEDTIME. MUST BE SEEN FOR FURTHER REFILLS [facility] famotidine 20 mg tablet 02-07 00:00: 00 Yes TAKE 1 TABLET BY MOUTH EVERY 12 HOURS FOR 10 DAYS [facility] ondansetron 4 mg tablet 02-07 00:00: 00 07-18 00:00 :00 No TAKE 1 TABLET BY MOUTH EVERY 12 HOURS NEEDED [facility] OXcarbazepi ne 600 mg tablet 25 00:00: 00 Yes 600mg Take 1 tablet by mouth in the morning and 1 tablet in the evening. [facility] ARIPiprazol e 5 mg tablet -12 00:00: 00 Yes 5mg Take 1 tablet by mouth at bedtime. [facility] ivermectin 3 mg tablet 1-12 00:00: 00 Yes [id number] 13.5mg Take 4.5 tablets by mouth weekly. [facility] trazodone HCl (TRAZODONE ORAL) 2020-10 13:30: 06 Yes Take by mouth. [facility] citalopram 10 mg tablet 2020-10 13:30: 06 Yes 10mg Take 10 mg by mouth daily. [facility] cetirizine (ZYRTEC) 10 mg tablet 10-11 00:00: 00 Yes [id number] 10mg Take 1 Tab by mouth daily. [facility] Immunizations Ordered Immunization Name Filled Immunization Name Date Status Comments Source TDAP 2023-05-26 00:00:00 Completed [facility] TDAP 2023-05-26 00:00:00 Completed [facility] SARS-COV-2 COVID-19 PFIZER VACCINE 2021-09-06 00:00:00 Completed [facility] SARS-COV-2 COVID-19 PFIZER VACCINE 2021-09-06 00:00:00 Completed [facility] SARS-COV-2 COVID-19 PFIZER VACCINE 2021-09-06 00:00:00 Completed [facility] SARS-COV-2 COVID-19 PFIZER VACCINE 2021-09-06 00:00:00 Completed [facility] SARS-COV-2 COVID-19 PFIZER VACCINE 2021-09-06 00:00:00 Completed [facility] SARS-COV-2 COVID-19 PFIZER VACCINE 2021-09-06 00:00:00 Completed [facility] SARS-COV-2 COVID-19 PFIZER VACCINE 2021-09-06 00:00:00 Completed [facility] SARS-COV-2 COVID-19 PFIZER VACCINE 2021-09-06 00:00:00 Completed [facility] SARS-COV-2 COVID-19 PFIZER VACCINE 2021-09-06 00:00:00 Completed [facility] SARS-COV-2 COVID-19 PFIZER VACCINE 2021-09-06 00:00:00 Completed [facility] SARS-COV-2 COVID-19 PFIZER VACCINE 2021-09-06 00:00:00 Completed [facility] SARS-COV-2 COVID-19 PFIZER VACCINE 2021-09-06 00:00:00 Completed [facility] SARS-COV-2 COVID-19 PFIZER VACCINE 2021-09-06 00:00:00 Completed [facility] SARS-COV-2 COVID-19 PFIZER VACCINE 2021-09-06 00:00:00 Completed [facility] SARS-COV-2 COVID-19 PFIZER VACCINE 2021-09-06 00:00:00 Completed [facility] SARS-COV-2 COVID-19 PFIZER VACCINE 2021-09-06 00:00:00 Completed [facility] SARS-COV-2 COVID-19 PFIZER VACCINE 2021-09-06 00:00:00 Completed [facility] SARS-COV-2 COVID-19 PFIZER VACCINE 2021-09-06 00:00:00 Completed [facility] SARS-COV-2 COVID-19 PFIZER VACCINE 2021-09-06 00:00:00 Completed [facility] SARS-COV-2 COVID-19 PFIZER VACCINE 2021-09-06 00:00:00 Completed [facility] SARS-COV-2 COVID-19 PFIZER VACCINE 2021-09-06 00:00:00 Completed [facility] SARS-COV-2 COVID-19 PFIZER VACCINE 2021-09-06 00:00:00 Completed [facility] SARS-COV-2 COVID-19 PFIZER VACCINE 2021-09-06 00:00:00 Completed [facility] SARS-COV-2 COVID-19 PFIZER VACCINE 2021-09-06 00:00:00 Completed [facility] SARS-COV-2 COVID-19 PFIZER VACCINE 2021-09-06 00:00:00 Completed [facility] SARS-COV-2 COVID-19 PFIZER VACCINE 2021-09-06 00:00:00 Completed [facility] SARS-COV-2 COVID-19 PFIZER VACCINE 2021-09-06 00:00:00 Completed [facility] SARS-COV-2 COVID-19 PFIZER VACCINE 2021-09-06 00:00:00 Completed [facility] SARS-COV-2 COVID-19 PFIZER VACCINE 2021-09-06 00:00:00 Completed [facility] SARS-COV-2 COVID-19 PFIZER VACCINE 2021-09-06 00:00:00 Completed [facility] SARS-COV-2 COVID-19 PFIZER VACCINE 2021-09-06 00:00:00 Completed [facility] SARS-COV-2 COVID-19 PFIZER VACCINE 2021-09-06 00:00:00 Completed [facility] SARS-COV-2 COVID-19 PFIZER VACCINE 2021-09-06 00:00:00 Completed [facility] SARS-COV-2 COVID-19 PFIZER VACCINE 2021-09-06 00:00:00 Completed [facility] SARS-COV-2 COVID-19 PFIZER VACCINE 2021-09-06 00:00:00 Completed [facility] SARS-COV-2 COVID-19 PFIZER VACCINE 2021-09-06 00:00:00 Completed [facility] SARS-COV-2 COVID-19 PFIZER VACCINE 2021-09-06 00:00:00 Completed [facility] SARS-COV-2 COVID-19 PFIZER VACCINE 2021-09-06 00:00:00 Completed [facility] SARS-COV-2 COVID-19 PFIZER VACCINE 2021-09-06 00:00:00 Completed [facility] SARS-COV-2 COVID-19 PFIZER VACCINE 2021-09-06 00:00:00 Completed [facility] SARS-COV-2 COVID-19 PFIZER VACCINE 2021-02-06 00:00:00 Completed [facility] SARS-COV-2 COVID-19 PFIZER VACCINE 2021-02-06 00:00:00 Completed [facility] SARS-COV-2 COVID-19 PFIZER VACCINE 2021-02-06 00:00:00 Completed [facility] SARS-COV-2 COVID-19 PFIZER VACCINE 2021-02-06 00:00:00 Completed [facility] SARS-COV-2 COVID-19 PFIZER VACCINE 2021-02-06 00:00:00 Completed [facility] SARS-COV-2 COVID-19 PFIZER VACCINE 2021-02-06 00:00:00 Completed [facility] SARS-COV-2 COVID-19 PFIZER VACCINE 2021-02-06 00:00:00 Completed [facility] SARS-COV-2 COVID-19 PFIZER VACCINE 2021-02-06 00:00:00 Completed [facility] SARS-COV-2 COVID-19 PFIZER VACCINE 2021-02-06 00:00:00 Completed [facility] SARS-COV-2 COVID-19 PFIZER VACCINE 2021-02-06 00:00:00 Completed [facility] SARS-COV-2 COVID-19 PFIZER VACCINE 2021-02-06 00:00:00 Completed [facility] SARS-COV-2 COVID-19 PFIZER VACCINE 2021-02-06 00:00:00 Completed [facility] SARS-COV-2 COVID-19 PFIZER VACCINE 2021-02-06 00:00:00 Completed [facility] SARS-COV-2 COVID-19 PFIZER VACCINE 2021-02-06 00:00:00 Completed [facility] SARS-COV-2 COVID-19 PFIZER VACCINE 2021-02-06 00:00:00 Completed [facility] SARS-COV-2 COVID-19 PFIZER VACCINE 2021-02-06 00:00:00 Completed [facility] SARS-COV-2 COVID-19 PFIZER VACCINE 2021-02-06 00:00:00 Completed [facility] SARS-COV-2 COVID-19 PFIZER VACCINE 2021-02-06 00:00:00 Completed [facility] SARS-COV-2 COVID-19 PFIZER VACCINE 2021-02-06 00:00:00 Completed [facility] SARS-COV-2 COVID-19 PFIZER VACCINE 2021-02-06 00:00:00 Completed [facility] SARS-COV-2 COVID-19 PFIZER VACCINE 2021-02-06 00:00:00 Completed [facility] SARS-COV-2 COVID-19 PFIZER VACCINE 2021-02-06 00:00:00 Completed [facility] SARS-COV-2 COVID-19 PFIZER VACCINE 2021-02-06 00:00:00 Completed [facility] SARS-COV-2 COVID-19 PFIZER VACCINE 2021-02-06 00:00:00 Completed [facility] SARS-COV-2 COVID-19 PFIZER VACCINE 2021-02-06 00:00:00 Completed [facility] SARS-COV-2 COVID-19 PFIZER VACCINE 2021-02-06 00:00:00 Completed [facility] SARS-COV-2 COVID-19 PFIZER VACCINE 2021-02-06 00:00:00 Completed [facility] SARS-COV-2 COVID-19 PFIZER VACCINE 2021-02-06 00:00:00 Completed [facility] SARS-COV-2 COVID-19 PFIZER VACCINE 2021-02-06 00:00:00 Completed [facility] SARS-COV-2 COVID-19 PFIZER VACCINE 2021-02-06 00:00:00 Completed [facility] SARS-COV-2 COVID-19 PFIZER VACCINE 2021-02-06 00:00:00 Completed [facility] SARS-COV-2 COVID-19 PFIZER VACCINE 2021-02-06 00:00:00 Completed [facility] SARS-COV-2 COVID-19 PFIZER VACCINE 2021-02-06 00:00:00 Completed [facility] SARS-COV-2 COVID-19 PFIZER VACCINE 2021-02-06 00:00:00 Completed [facility] SARS-COV-2 COVID-19 PFIZER VACCINE 2021-02-06 00:00:00 Completed [facility] SARS-COV-2 COVID-19 PFIZER VACCINE 2021-02-06 00:00:00 Completed [facility] SARS-COV-2 COVID-19 PFIZER VACCINE 2021-02-06 00:00:00 Completed [facility] SARS-COV-2 COVID-19 PFIZER VACCINE 2021-02-06 00:00:00 Completed [facility] SARS-COV-2 COVID-19 PFIZER VACCINE 2021-02-06 00:00:00 Completed [facility] SARS-COV-2 COVID-19 PFIZER VACCINE 2021-02-06 00:00:00 Completed [facility] SARS-COV-2 COVID-19 PFIZER VACCINE 2021-01-16 00:00:00 Completed [facility] SARS-COV-2 COVID-19 PFIZER VACCINE 2021-01-16 00:00:00 Completed [facility] SARS-COV-2 COVID-19 PFIZER VACCINE 2021-01-16 00:00:00 Completed [facility] SARS-COV-2 COVID-19 PFIZER VACCINE 2021-01-16 00:00:00 Completed [facility] SARS-COV-2 COVID-19 PFIZER VACCINE 2021-01-16 00:00:00 Completed [facility] SARS-COV-2 COVID-19 PFIZER VACCINE 2021-01-16 00:00:00 Completed [facility] SARS-COV-2 COVID-19 PFIZER VACCINE 2021-01-16 00:00:00 Completed [facility] SARS-COV-2 COVID-19 PFIZER VACCINE 2021-01-16 00:00:00 Completed [facility] SARS-COV-2 COVID-19 PFIZER VACCINE 2021-01-16 00:00:00 Completed [facility] SARS-COV-2 COVID-19 PFIZER VACCINE 2021-01-16 00:00:00 Completed [facility] SARS-COV-2 COVID-19 PFIZER VACCINE 2021-01-16 00:00:00 Completed [facility] SARS-COV-2 COVID-19 PFIZER VACCINE 2021-01-16 00:00:00 Completed [facility] SARS-COV-2 COVID-19 PFIZER VACCINE 2021-01-16 00:00:00 Completed [facility] SARS-COV-2 COVID-19 PFIZER VACCINE 2021-01-16 00:00:00 Completed [facility] SARS-COV-2 COVID-19 PFIZER VACCINE 2021-01-16 00:00:00 Completed [facility] SARS-COV-2 COVID-19 PFIZER VACCINE 2021-01-16 00:00:00 Completed [facility] SARS-COV-2 COVID-19 PFIZER VACCINE 2021-01-16 00:00:00 Completed [facility] SARS-COV-2 COVID-19 PFIZER VACCINE 2021-01-16 00:00:00 Completed [facility] SARS-COV-2 COVID-19 PFIZER VACCINE 2021-01-16 00:00:00 Completed [facility] SARS-COV-2 COVID-19 PFIZER VACCINE 2021-01-16 00:00:00 Completed [facility] SARS-COV-2 COVID-19 PFIZER VACCINE 2021-01-16 00:00:00 Completed [facility] SARS-COV-2 COVID-19 PFIZER VACCINE 2021-01-16 00:00:00 Completed [facility] SARS-COV-2 COVID-19 PFIZER VACCINE 2021-01-16 00:00:00 Completed [facility] SARS-COV-2 COVID-19 PFIZER VACCINE 2021-01-16 00:00:00 Completed [facility] SARS-COV-2 COVID-19 PFIZER VACCINE 2021-01-16 00:00:00 Completed [facility] SARS-COV-2 COVID-19 PFIZER VACCINE 2021-01-16 00:00:00 Completed [facility] SARS-COV-2 COVID-19 PFIZER VACCINE 2021-01-16 00:00:00 Completed [facility] SARS-COV-2 COVID-19 PFIZER VACCINE 2021-01-16 00:00:00 Completed [facility] SARS-COV-2 COVID-19 PFIZER VACCINE 2021-01-16 00:00:00 Completed [facility] SARS-COV-2 COVID-19 PFIZER VACCINE 2021-01-16 00:00:00 Completed [facility] SARS-COV-2 COVID-19 PFIZER VACCINE 2021-01-16 00:00:00 Completed [facility] SARS-COV-2 COVID-19 PFIZER VACCINE 2021-01-16 00:00:00 Completed [facility] SARS-COV-2 COVID-19 PFIZER VACCINE 2021-01-16 00:00:00 Completed [facility] SARS-COV-2 COVID-19 PFIZER VACCINE 2021-01-16 00:00:00 Completed [facility] SARS-COV-2 COVID-19 PFIZER VACCINE 2021-01-16 00:00:00 Completed [facility] SARS-COV-2 COVID-19 PFIZER VACCINE 2021-01-16 00:00:00 Completed [facility] SARS-COV-2 COVID-19 PFIZER VACCINE 2021-01-16 00:00:00 Completed [facility] SARS-COV-2 COVID-19 PFIZER VACCINE 2021-01-16 00:00:00 Completed [facility] SARS-COV-2 COVID-19 PFIZER VACCINE 2021-01-16 00:00:00 Completed [facility] SARS-COV-2 COVID-19 PFIZER VACCINE 2021-01-16 00:00:00 Completed [facility] Pneumococcal Polysaccharide, PPSV23 (PNEUMOVAX) 2019-12-17 00:00:00 Completed [facility] Pneumococcal Polysaccharide, PPSV23 (PNEUMOVAX) 2019-12-17 00:00:00 Completed [facility] Influenza Virus Vaccine Quad .5 mL IM 6+ MO 2017-08-28 00:00:00 Completed [facility] Influenza Virus Vaccine Quad .5 mL IM 6+ MO 2017-08-28 00:00:00 Completed [facility] HPV9 2017-03-31 00:00:00 Completed [facility] Meningococcal Polysaccharide (groups A, C, Y and W-135) conjugate vaccine (MCV4P) 2017-03-31 00:00:00 Completed [facility] HPV9 2017-03-31 00:00:00 Completed [facility] Meningococcal Polysaccharide (groups A, C, Y and W-135) conjugate vaccine (MCV4P) 2017-03-31 00:00:00 Completed [facility] Varicella (varivax)(chicken pox) 2016-06-15 00:00:00 Completed [facility] Varicella (varivax)(chicken pox) 2016-06-15 00:00:00 Completed [facility] Flu Trivalent 2015-07-20 00:00:00 Completed [facility] Flu Trivalent 2015-07-20 00:00:00 Completed [facility] MMR 2015-05-05 00:00:00 Completed [facility] MMR 2015-05-05 00:00:00 Completed [facility] Proquad (MMR/VARICELLA) 2015-03-30 00:00:00 Completed [facility] IPV 2015-03-30 00:00:00 Completed [facility] Proquad (MMR/VARICELLA) 2015-03-30 00:00:00 Completed [facility] IPV 2015-03-30 00:00:00 Completed [facility] HIB 3 Dose Schedule 2015-02-27 00:00:00 Completed [facility] Pneumococcal 13 Conjugate, PCV13 (Prevnar 13) 2015-02-27 00:00:00 Completed [facility] HIB 3 Dose Schedule 2015-02-27 00:00:00 Completed [facility] Pneumococcal 13 Conjugate, PCV13 (Prevnar 13) 2015-02-27 00:00:00 Completed [facility] HEPATITIS A 2014-01-23 00:00:00 Completed [facility] Heamophilus Influenza B 2014-01-23 00:00:00 Completed [facility] HEPATITIS A 2014-01-23 00:00:00 Completed [facility] Heamophilus Influenza B 2014-01-23 00:00:00 Completed [facility] HEPATITIS A 2014-01-23 00:00:00 Completed [facility] Heamophilus Influenza B 2014-01-23 00:00:00 Completed [facility] HEPATITIS A 2014-01-23 00:00:00 Completed [facility] Heamophilus Influenza B 2014-01-23 00:00:00 Completed [facility] HEPATITIS A 2014-01-23 00:00:00 Completed [facility] Heamophilus Influenza B 2014-01-23 00:00:00 Completed [facility] HEPATITIS A 2014-01-23 00:00:00 Completed [facility] Heamophilus Influenza B 2014-01-23 00:00:00 Completed [facility] HEPATITIS A 2014-01-23 00:00:00 Completed [facility] Heamophilus Influenza B 2014-01-23 00:00:00 Completed [facility] HEPATITIS A 2014-01-23 00:00:00 Completed [facility] Heamophilus Influenza B 2014-01-23 00:00:00 Completed [facility] HEPATITIS A 2014-01-23 00:00:00 Completed [facility] Heamophilus Influenza B 2014-01-23 00:00:00 Completed [facility] HEPATITIS A 2014-01-23 00:00:00 Completed [facility] Heamophilus Influenza B 2014-01-23 00:00:00 Completed [facility] HEPATITIS A 2014-01-23 00:00:00 Completed [facility] Heamophilus Influenza B 2014-01-23 00:00:00 Completed [facility] HEPATITIS A 2014-01-23 00:00:00 Completed [facility] Heamophilus Influenza B 2014-01-23 00:00:00 Completed [facility] HEPATITIS A 2014-01-23 00:00:00 Completed [facility] Heamophilus Influenza B 2014-01-23 00:00:00 Completed [facility] HEPATITIS A 2014-01-23 00:00:00 Completed [facility] Heamophilus Influenza B 2014-01-23 00:00:00 Completed [facility] HEPATITIS A 2014-01-23 00:00:00 Completed [facility] Heamophilus Influenza B 2014-01-23 00:00:00 Completed [facility] HEPATITIS A 2014-01-23 00:00:00 Completed [facility] Heamophilus Influenza B 2014-01-23 00:00:00 Completed [facility] HEPATITIS A 2014-01-23 00:00:00 Completed [facility] Heamophilus Influenza B 2014-01-23 00:00:00 Completed [facility] HEPATITIS A 2014-01-23 00:00:00 Completed [facility] Heamophilus Influenza B 2014-01-23 00:00:00 Completed [facility] HEPATITIS A 2014-01-23 00:00:00 Completed [facility] Heamophilus Influenza B 2014-01-23 00:00:00 Completed [facility] HEPATITIS A 2014-01-23 00:00:00 Completed [facility] Heamophilus Influenza B 2014-01-23 00:00:00 Completed [facility] HEPATITIS A 2014-01-23 00:00:00 Completed [facility] Heamophilus Influenza B 2014-01-23 00:00:00 Completed [facility] HEPATITIS A 2014-01-23 00:00:00 Completed [facility] Heamophilus Influenza B 2014-01-23 00:00:00 Completed [facility] HEPATITIS A 2014-01-23 00:00:00 Completed [facility] Heamophilus Influenza B 2014-01-23 00:00:00 Completed [facility] HEPATITIS A 2014-01-23 00:00:00 Completed [facility] Heamophilus Influenza B 2014-01-23 00:00:00 Completed [facility] HEPATITIS A 2014-01-23 00:00:00 Completed [facility] Heamophilus Influenza B 2014-01-23 00:00:00 Completed [facility] HEPATITIS A 2014-01-23 00:00:00 Completed [facility] Heamophilus Influenza B 2014-01-23 00:00:00 Completed [facility] HEPATITIS A 2014-01-23 00:00:00 Completed [facility] Heamophilus Influenza B 2014-01-23 00:00:00 Completed [facility] HEPATITIS A 2014-01-23 00:00:00 Completed [facility] Heamophilus Influenza B 2014-01-23 00:00:00 Completed [facility] HEPATITIS A 2014-01-23 00:00:00 Completed [facility] Heamophilus Influenza B 2014-01-23 00:00:00 Completed [facility] HEPATITIS A 2014-01-23 00:00:00 Completed [facility] Heamophilus Influenza B 2014-01-23 00:00:00 Completed [facility] HEPATITIS A 2014-01-23 00:00:00 Completed [facility] Heamophilus Influenza B 2014-01-23 00:00:00 Completed [facility] HEPATITIS A 2014-01-23 00:00:00 Completed [facility] Heamophilus Influenza B 2014-01-23 00:00:00 Completed [facility] HEPATITIS A 2014-01-23 00:00:00 Completed [facility] Heamophilus Influenza B 2014-01-23 00:00:00 Completed [facility] HEP B, Adult Dosage 2014-01-23 00:00:00 Completed [facility] Hep B, Adol or Pedi Dosage 2014-01-23 00:00:00 Completed [facility] IPV 2014-01-23 00:00:00 Completed [facility] HEPATITIS A 2014-01-23 00:00:00 Completed [facility] Heamophilus Influenza B 2014-01-23 00:00:00 Completed [facility] HEP B, Adult Dosage 2014-01-23 00:00:00 Completed [facility] Hep B, Adol or Pedi Dosage 2014-01-23 00:00:00 Completed [facility] IPV 2014-01-23 00:00:00 Completed [facility] DTAP 2013-04-12 00:00:00 Completed [facility] Polio (IPV/OPV) 2013-04-12 00:00:00 Completed [facility] Pneumococcal 7 Conjugate, PCV7 (Prevnar7) 2013-04-12 00:00:00 Completed [facility] DTAP 2013-04-12 00:00:00 Completed [facility] Polio (IPV/OPV) 2013-04-12 00:00:00 Completed [facility] Pneumococcal 7 Conjugate, PCV7 (Prevnar7) 2013-04-12 00:00:00 Completed [facility] DTAP 2013-04-12 00:00:00 Completed [facility] Polio (IPV/OPV) 2013-04-12 00:00:00 Completed [facility] Pneumococcal 7 Conjugate, PCV7 (Prevnar7) 2013-04-12 00:00:00 Completed [facility] DTAP 2013-04-12 00:00:00 Completed [facility] Polio (IPV/OPV) 2013-04-12 00:00:00 Completed [facility] Pneumococcal 7 Conjugate, PCV7 (Prevnar7) 2013-04-12 00:00:00 Completed [facility] DTAP 2013-04-12 00:00:00 Completed [facility] Polio (IPV/OPV) 2013-04-12 00:00:00 Completed [facility] Pneumococcal 7 Conjugate, PCV7 (Prevnar7) 2013-04-12 00:00:00 Completed [facility] DTAP 2013-04-12 00:00:00 Completed [facility] Polio (IPV/OPV) 2013-04-12 00:00:00 Completed [facility] Pneumococcal 7 Conjugate, PCV7 (Prevnar7) 2013-04-12 00:00:00 Completed [facility] DTAP 2013-04-12 00:00:00 Completed [facility] Polio (IPV/OPV) 2013-04-12 00:00:00 Completed [facility] Pneumococcal 7 Conjugate, PCV7 (Prevnar7) 2013-04-12 00:00:00 Completed [facility] DTAP 2013-04-12 00:00:00 Completed [facility] Polio (IPV/OPV) 2013-04-12 00:00:00 Completed [facility] Pneumococcal 7 Conjugate, PCV7 (Prevnar7) 2013-04-12 00:00:00 Completed [facility] DTAP 2013-04-12 00:00:00 Completed [facility] Polio (IPV/OPV) 2013-04-12 00:00:00 Completed [facility] Pneumococcal 7 Conjugate, PCV7 (Prevnar7) 2013-04-12 00:00:00 Completed [facility] DTAP 2013-04-12 00:00:00 Completed [facility] Polio (IPV/OPV) 2013-04-12 00:00:00 Completed [facility] Pneumococcal 7 Conjugate, PCV7 (Prevnar7) 2013-04-12 00:00:00 Completed [facility] DTAP 2013-04-12 00:00:00 Completed [facility] Polio (IPV/OPV) 2013-04-12 00:00:00 Completed [facility] Pneumococcal 7 Conjugate, PCV7 (Prevnar7) 2013-04-12 00:00:00 Completed [facility] DTAP 2013-04-12 00:00:00 Completed [facility] Polio (IPV/OPV) 2013-04-12 00:00:00 Completed [facility] Pneumococcal 7 Conjugate, PCV7 (Prevnar7) 2013-04-12 00:00:00 Completed [facility] DTAP 2013-04-12 00:00:00 Completed [facility] Polio (IPV/OPV) 2013-04-12 00:00:00 Completed [facility] Pneumococcal 7 Conjugate, PCV7 (Prevnar7) 2013-04-12 00:00:00 Completed [facility] DTAP 2013-04-12 00:00:00 Completed [facility] Polio (IPV/OPV) 2013-04-12 00:00:00 Completed [facility] Pneumococcal 7 Conjugate, PCV7 (Prevnar7) 2013-04-12 00:00:00 Completed [facility] DTAP 2013-04-12 00:00:00 Completed [facility] Polio (IPV/OPV) 2013-04-12 00:00:00 Completed [facility] Pneumococcal 7 Conjugate, PCV7 (Prevnar7) 2013-04-12 00:00:00 Completed [facility] DTAP 2013-04-12 00:00:00 Completed [facility] Polio (IPV/OPV) 2013-04-12 00:00:00 Completed [facility] Pneumococcal 7 Conjugate, PCV7 (Prevnar7) 2013-04-12 00:00:00 Completed [facility] DTAP 2013-04-12 00:00:00 Completed [facility] Polio (IPV/OPV) 2013-04-12 00:00:00 Completed [facility] Pneumococcal 7 Conjugate, PCV7 (Prevnar7) 2013-04-12 00:00:00 Completed [facility] DTAP 2013-04-12 00:00:00 Completed [facility] Polio (IPV/OPV) 2013-04-12 00:00:00 Completed [facility] Pneumococcal 7 Conjugate, PCV7 (Prevnar7) 2013-04-12 00:00:00 Completed [facility] DTAP 2013-04-12 00:00:00 Completed [facility] Polio (IPV/OPV) 2013-04-12 00:00:00 Completed [facility] Pneumococcal 7 Conjugate, PCV7 (Prevnar7) 2013-04-12 00:00:00 Completed [facility] DTAP 2013-04-12 00:00:00 Completed [facility] Polio (IPV/OPV) 2013-04-12 00:00:00 Completed [facility] Pneumococcal 7 Conjugate, PCV7 (Prevnar7) 2013-04-12 00:00:00 Completed [facility] DTAP 2013-04-12 00:00:00 Completed [facility] Polio (IPV/OPV) 2013-04-12 00:00:00 Completed [facility] Pneumococcal 7 Conjugate, PCV7 (Prevnar7) 2013-04-12 00:00:00 Completed [facility] DTAP 2013-04-12 00:00:00 Completed [facility] Polio (IPV/OPV) 2013-04-12 00:00:00 Completed [facility] Pneumococcal 7 Conjugate, PCV7 (Prevnar7) 2013-04-12 00:00:00 Completed [facility] DTAP 2013-04-12 00:00:00 Completed [facility] Polio (IPV/OPV) 2013-04-12 00:00:00 Completed [facility] Pneumococcal 7 Conjugate, PCV7 (Prevnar7) 2013-04-12 00:00:00 Completed [facility] DTAP 2013-04-12 00:00:00 Completed [facility] Polio (IPV/OPV) 2013-04-12 00:00:00 Completed [facility] Pneumococcal 7 Conjugate, PCV7 (Prevnar7) 2013-04-12 00:00:00 Completed [facility] DTAP 2013-04-12 00:00:00 Completed [facility] Polio (IPV/OPV) 2013-04-12 00:00:00 Completed [facility] Pneumococcal 7 Conjugate, PCV7 (Prevnar7) 2013-04-12 00:00:00 Completed [facility] DTAP 2013-04-12 00:00:00 Completed [facility] Polio (IPV/OPV) 2013-04-12 00:00:00 Completed [facility] Pneumococcal 7 Conjugate, PCV7 (Prevnar7) 2013-04-12 00:00:00 Completed [facility] DTAP 2013-04-12 00:00:00 Completed [facility] Polio (IPV/OPV) 2013-04-12 00:00:00 Completed [facility] Pneumococcal 7 Conjugate, PCV7 (Prevnar7) 2013-04-12 00:00:00 Completed [facility] DTAP 2013-04-12 00:00:00 Completed [facility] Polio (IPV/OPV) 2013-04-12 00:00:00 Completed [facility] Pneumococcal 7 Conjugate, PCV7 (Prevnar7) 2013-04-12 00:00:00 Completed [facility] DTAP 2013-04-12 00:00:00 Completed [facility] Polio (IPV/OPV) 2013-04-12 00:00:00 Completed [facility] Pneumococcal 7 Conjugate, PCV7 (Prevnar7) 2013-04-12 00:00:00 Completed [facility] DTAP 2013-04-12 00:00:00 Completed [facility] Polio (IPV/OPV) 2013-04-12 00:00:00 Completed [facility] Pneumococcal 7 Conjugate, PCV7 (Prevnar7) 2013-04-12 00:00:00 Completed [facility] DTAP 2013-04-12 00:00:00 Completed [facility] Polio (IPV/OPV) 2013-04-12 00:00:00 Completed [facility] Pneumococcal 7 Conjugate, PCV7 (Prevnar7) 2013-04-12 00:00:00 Completed [facility] DTAP 2013-04-12 00:00:00 Completed [facility] Polio (IPV/OPV) 2013-04-12 00:00:00 Completed [facility] Pneumococcal 7 Conjugate, PCV7 (Prevnar7) 2013-04-12 00:00:00 Completed [facility] DTAP 2013-04-12 00:00:00 Completed [facility] Polio (IPV/OPV) 2013-04-12 00:00:00 Completed [facility] Pneumococcal 7 Conjugate, PCV7 (Prevnar7) 2013-04-12 00:00:00 Completed [facility] DTAP 2013-04-12 00:00:00 Completed [facility] Polio (IPV/OPV) 2013-04-12 00:00:00 Completed [facility] Pneumococcal 7 Conjugate, PCV7 (Prevnar7) 2013-04-12 00:00:00 Completed [facility] DTAP 2013-04-12 00:00:00 Completed [facility] Polio (IPV/OPV) 2013-04-12 00:00:00 Completed [facility] Pneumococcal 7 Conjugate, PCV7 (Prevnar7) 2013-04-12 00:00:00 Completed [facility] DTAP 2013-04-12 00:00:00 Completed [facility] Polio (IPV/OPV) 2013-04-12 00:00:00 Completed [facility] Pneumococcal 7 Conjugate, PCV7 (Prevnar7) 2013-04-12 00:00:00 Completed [facility] DTAP 2013-04-12 00:00:00 Completed [facility] Polio (IPV/OPV) 2013-04-12 00:00:00 Completed [facility] Pneumococcal 7 Conjugate, PCV7 (Prevnar7) 2013-04-12 00:00:00 Completed [facility] DTAP 2013-04-12 00:00:00 Completed [facility] Polio (IPV/OPV) 2013-04-12 00:00:00 Completed [facility] Pneumococcal 7 Conjugate, PCV7 (Prevnar7) 2013-04-12 00:00:00 Completed [facility] DTAP 2013-04-12 00:00:00 Completed [facility] Polio (IPV/OPV) 2013-04-12 00:00:00 Completed [facility] Pneumococcal 7 Conjugate, PCV7 (Prevnar7) 2013-04-12 00:00:00 Completed [facility] DTaP, Unspecified Formulation 2013-04-12 00:00:00 Completed [facility] Pneumococcal 13 Conjugate, PCV13 (Prevnar 13) 2013-04-12 00:00:00 Completed [facility] IPV 2013-04-12 00:00:00 Completed [facility] DTAP 2013-04-12 00:00:00 Completed [facility] Polio (IPV/OPV) 2013-04-12 00:00:00 Completed [facility] Pneumococcal 7 Conjugate, PCV7 (Prevnar7) 2013-04-12 00:00:00 Completed [facility] DTaP, Unspecified Formulation 2013-04-12 00:00:00 Completed [facility] Pneumococcal 13 Conjugate, PCV13 (Prevnar 13) 2013-04-12 00:00:00 Completed [facility] IPV 2013-04-12 00:00:00 Completed [facility] HEPATITIS A 2013-03-15 00:00:00 Completed [facility] Hep B, Adol or Pedi Dosage 2013-03-15 00:00:00 Completed [facility] Meningococcal Polysaccharide (groups A, C, Y and W-135) conjugate vaccine (MCV4P) 2013-03-15 00:00:00 Completed [facility] HEPATITIS A 2013-03-15 00:00:00 Completed [facility] Hep B, Adol or Pedi Dosage 2013-03-15 00:00:00 Completed [facility] Meningococcal Polysaccharide (groups A, C, Y and W-135) conjugate vaccine (MCV4P) 2013-03-15 00:00:00 Completed [facility] HEPATITIS A 2013-03-15 00:00:00 Completed [facility] Hep B, Adol or Pedi Dosage 2013-03-15 00:00:00 Completed [facility] Meningococcal Polysaccharide (groups A, C, Y and W-135) conjugate vaccine (MCV4P) 2013-03-15 00:00:00 Completed [facility] HEPATITIS A 2013-03-15 00:00:00 Completed [facility] Hep B, Adol or Pedi Dosage 2013-03-15 00:00:00 Completed [facility] Meningococcal Polysaccharide (groups A, C, Y and W-135) conjugate vaccine (MCV4P) 2013-03-15 00:00:00 Completed [facility] HEPATITIS A 2013-03-15 00:00:00 Completed [facility] Hep B, Adol or Pedi Dosage 2013-03-15 00:00:00 Completed [facility] Meningococcal Polysaccharide (groups A, C, Y and W-135) conjugate vaccine (MCV4P) 2013-03-15 00:00:00 Completed [facility] HEPATITIS A 2013-03-15 00:00:00 Completed [facility] Hep B, Adol or Pedi Dosage 2013-03-15 00:00:00 Completed [facility] Meningococcal Polysaccharide (groups A, C, Y and W-135) conjugate vaccine (MCV4P) 2013-03-15 00:00:00 Completed [facility] HEPATITIS A 2013-03-15 00:00:00 Completed [facility] Hep B, Adol or Pedi Dosage 2013-03-15 00:00:00 Completed [facility] Meningococcal Polysaccharide (groups A, C, Y and W-135) conjugate vaccine (MCV4P) 2013-03-15 00:00:00 Completed [facility] HEPATITIS A 2013-03-15 00:00:00 Completed [facility] Hep B, Adol or Pedi Dosage 2013-03-15 00:00:00 Completed [facility] Meningococcal Polysaccharide (groups A, C, Y and W-135) conjugate vaccine (MCV4P) 2013-03-15 00:00:00 Completed [facility] HEPATITIS A 2013-03-15 00:00:00 Completed [facility] Hep B, Adol or Pedi Dosage 2013-03-15 00:00:00 Completed [facility] Meningococcal Polysaccharide (groups A, C, Y and W-135) conjugate vaccine (MCV4P) 2013-03-15 00:00:00 Completed [facility] HEPATITIS A 2013-03-15 00:00:00 Completed [facility] Hep B, Adol or Pedi Dosage 2013-03-15 00:00:00 Completed [facility] Meningococcal Polysaccharide (groups A, C, Y and W-135) conjugate vaccine (MCV4P) 2013-03-15 00:00:00 Completed [facility] HEPATITIS A 2013-03-15 00:00:00 Completed [facility] Hep B, Adol or Pedi Dosage 2013-03-15 00:00:00 Completed [facility] Meningococcal Polysaccharide (groups A, C, Y and W-135) conjugate vaccine (MCV4P) 2013-03-15 00:00:00 Completed [facility] HEPATITIS A 2013-03-15 00:00:00 Completed [facility] Hep B, Adol or Pedi Dosage 2013-03-15 00:00:00 Completed [facility] Meningococcal Polysaccharide (groups A, C, Y and W-135) conjugate vaccine (MCV4P) 2013-03-15 00:00:00 Completed [facility] HEPATITIS A 2013-03-15 00:00:00 Completed [facility] Hep B, Adol or Pedi Dosage 2013-03-15 00:00:00 Completed [facility] Meningococcal Polysaccharide (groups A, C, Y and W-135) conjugate vaccine (MCV4P) 2013-03-15 00:00:00 Completed [facility] HEPATITIS A 2013-03-15 00:00:00 Completed [facility] Hep B, Adol or Pedi Dosage 2013-03-15 00:00:00 Completed [facility] Meningococcal Polysaccharide (groups A, C, Y and W-135) conjugate vaccine (MCV4P) 2013-03-15 00:00:00 Completed [facility] HEPATITIS A 2013-03-15 00:00:00 Completed [facility] Hep B, Adol or Pedi Dosage 2013-03-15 00:00:00 Completed [facility] Meningococcal Polysaccharide (groups A, C, Y and W-135) conjugate vaccine (MCV4P) 2013-03-15 00:00:00 Completed [facility] HEPATITIS A 2013-03-15 00:00:00 Completed [facility] Hep B, Adol or Pedi Dosage 2013-03-15 00:00:00 Completed [facility] Meningococcal Polysaccharide (groups A, C, Y and W-135) conjugate vaccine (MCV4P) 2013-03-15 00:00:00 Completed [facility] HEPATITIS A 2013-03-15 00:00:00 Completed [facility] Hep B, Adol or Pedi Dosage 2013-03-15 00:00:00 Completed [facility] Meningococcal Polysaccharide (groups A, C, Y and W-135) conjugate vaccine (MCV4P) 2013-03-15 00:00:00 Completed [facility] HEPATITIS A 2013-03-15 00:00:00 Completed [facility] Hep B, Adol or Pedi Dosage 2013-03-15 00:00:00 Completed [facility] Meningococcal Polysaccharide (groups A, C, Y and W-135) conjugate vaccine (MCV4P) 2013-03-15 00:00:00 Completed [facility] HEPATITIS A 2013-03-15 00:00:00 Completed [facility] Hep B, Adol or Pedi Dosage 2013-03-15 00:00:00 Completed [facility] Meningococcal Polysaccharide (groups A, C, Y and W-135) conjugate vaccine (MCV4P) 2013-03-15 00:00:00 Completed [facility] HEPATITIS A 2013-03-15 00:00:00 Completed [facility] Hep B, Adol or Pedi Dosage 2013-03-15 00:00:00 Completed [facility] Meningococcal Polysaccharide (groups A, C, Y and W-135) conjugate vaccine (MCV4P) 2013-03-15 00:00:00 Completed [facility] HEPATITIS A 2013-03-15 00:00:00 Completed [facility] Hep B, Adol or Pedi Dosage 2013-03-15 00:00:00 Completed [facility] Meningococcal Polysaccharide (groups A, C, Y and W-135) conjugate vaccine (MCV4P) 2013-03-15 00:00:00 Completed [facility] HEPATITIS A 2013-03-15 00:00:00 Completed [facility] Hep B, Adol or Pedi Dosage 2013-03-15 00:00:00 Completed [facility] Meningococcal Polysaccharide (groups A, C, Y and W-135) conjugate vaccine (MCV4P) 2013-03-15 00:00:00 Completed [facility] HEPA,NOS 2013-03-15 00:00:00 Completed [facility] HEPATITIS A 2013-03-15 00:00:00 Completed [facility] Hep B, Adol or Pedi Dosage 2013-03-15 00:00:00 Completed [facility] Meningococcal Polysaccharide (groups A, C, Y and W-135) conjugate vaccine (MCV4P) 2013-03-15 00:00:00 Completed [facility] HEPA,NOS 2013-03-15 00:00:00 Completed [facility] HEPATITIS A 2013-03-15 00:00:00 Completed [facility] Hep B, Adol or Pedi Dosage 2013-03-15 00:00:00 Completed [facility] Meningococcal Polysaccharide (groups A, C, Y and W-135) conjugate vaccine (MCV4P) 2013-03-15 00:00:00 Completed [facility] HEPATITIS A 2013-03-15 00:00:00 Completed [facility] Hep B, Adol or Pedi Dosage 2013-03-15 00:00:00 Completed [facility] Meningococcal Polysaccharide (groups A, C, Y and W-135) conjugate vaccine (MCV4P) 2013-03-15 00:00:00 Completed [facility] HEPATITIS A 2013-03-15 00:00:00 Completed [facility] Hep B, Adol or Pedi Dosage 2013-03-15 00:00:00 Completed [facility] Meningococcal Polysaccharide (groups A, C, Y and W-135) conjugate vaccine (MCV4P) 2013-03-15 00:00:00 Completed [facility] HEPATITIS A 2013-03-15 00:00:00 Completed [facility] Hep B, Adol or Pedi Dosage 2013-03-15 00:00:00 Completed [facility] Meningococcal Polysaccharide (groups A, C, Y and W-135) conjugate vaccine (MCV4P) 2013-03-15 00:00:00 Completed [facility] HEPATITIS A 2013-03-15 00:00:00 Completed [facility] Hep B, Adol or Pedi Dosage 2013-03-15 00:00:00 Completed [facility] Meningococcal Polysaccharide (groups A, C, Y and W-135) conjugate vaccine (MCV4P) 2013-03-15 00:00:00 Completed [facility] HEPATITIS A 2013-03-15 00:00:00 Completed [facility] Hep B, Adol or Pedi Dosage 2013-03-15 00:00:00 Completed [facility] Meningococcal Polysaccharide (groups A, C, Y and W-135) conjugate vaccine (MCV4P) 2013-03-15 00:00:00 Completed [facility] HEPATITIS A 2013-03-15 00:00:00 Completed [facility] Hep B, Adol or Pedi Dosage 2013-03-15 00:00:00 Completed [facility] Meningococcal Polysaccharide (groups A, C, Y and W-135) conjugate vaccine (MCV4P) 2013-03-15 00:00:00 Completed [facility] HEPATITIS A 2013-03-15 00:00:00 Completed [facility] Hep B, Adol or Pedi Dosage 2013-03-15 00:00:00 Completed [facility] Meningococcal Polysaccharide (groups A, C, Y and W-135) conjugate vaccine (MCV4P) 2013-03-15 00:00:00 Completed [facility] HEPATITIS A 2013-03-15 00:00:00 Completed [facility] Hep B, Adol or Pedi Dosage 2013-03-15 00:00:00 Completed [facility] Meningococcal Polysaccharide (groups A, C, Y and W-135) conjugate vaccine (MCV4P) 2013-03-15 00:00:00 Completed [facility] HEPATITIS A 2013-03-15 00:00:00 Completed [facility] Hep B, Adol or Pedi Dosage 2013-03-15 00:00:00 Completed [facility] Meningococcal Polysaccharide (groups A, C, Y and W-135) conjugate vaccine (MCV4P) 2013-03-15 00:00:00 Completed [facility] HEPATITIS A 2013-03-15 00:00:00 Completed [facility] Hep B, Adol or Pedi Dosage 2013-03-15 00:00:00 Completed [facility] Meningococcal Polysaccharide (groups A, C, Y and W-135) conjugate vaccine (MCV4P) 2013-03-15 00:00:00 Completed [facility] HEPATITIS A 2013-03-15 00:00:00 Completed [facility] Hep B, Adol or Pedi Dosage 2013-03-15 00:00:00 Completed [facility] Meningococcal Polysaccharide (groups A, C, Y and W-135) conjugate vaccine (MCV4P) 2013-03-15 00:00:00 Completed [facility] HEPATITIS A 2013-03-15 00:00:00 Completed [facility] Hep B, Adol or Pedi Dosage 2013-03-15 00:00:00 Completed [facility] Meningococcal Polysaccharide (groups A, C, Y and W-135) conjugate vaccine (MCV4P) 2013-03-15 00:00:00 Completed [facility] HEPATITIS A 2013-03-15 00:00:00 Completed [facility] Hep B, Adol or Pedi Dosage 2013-03-15 00:00:00 Completed [facility] Meningococcal Polysaccharide (groups A, C, Y and W-135) conjugate vaccine (MCV4P) 2013-03-15 00:00:00 Completed [facility] HEPATITIS A 2013-03-15 00:00:00 Completed [facility] Hep B, Adol or Pedi Dosage 2013-03-15 00:00:00 Completed [facility] Meningococcal Polysaccharide (groups A, C, Y and W-135) conjugate vaccine (MCV4P) 2013-03-15 00:00:00 Completed [facility] HEPATITIS A 2013-03-15 00:00:00 Completed [facility] Hep B, Adol or Pedi Dosage 2013-03-15 00:00:00 Completed [facility] Meningococcal Polysaccharide (groups A, C, Y and W-135) conjugate vaccine (MCV4P) 2013-03-15 00:00:00 Completed [facility] HEPATITIS A 2013-03-15 00:00:00 Completed [facility] Hep B, Adol or Pedi Dosage 2013-03-15 00:00:00 Completed [facility] Meningococcal Polysaccharide (groups A, C, Y and W-135) conjugate vaccine (MCV4P) 2013-03-15 00:00:00 Completed [facility] Pneumococcal 13 Conjugate, PCV13 (Prevnar 13) 2013-01-24 00:00:00 Completed [facility] HIB 4 Dose Schedule 2013-01-24 00:00:00 Completed [facility] Hep B, Dtap, Polio 2013-01-24 00:00:00 Completed [facility] Pneumococcal 13 Conjugate, PCV13 (Prevnar 13) 2013-01-24 00:00:00 Completed [facility] HIB 4 Dose Schedule 2013-01-24 00:00:00 Completed [facility] Hep B, Dtap, Polio 2013-01-24 00:00:00 Completed [facility] Pneumococcal 13 Conjugate, PCV13 (Prevnar 13) 2013-01-24 00:00:00 Completed [facility] HIB 4 Dose Schedule 2013-01-24 00:00:00 Completed [facility] Hep B, Dtap, Polio 2013-01-24 00:00:00 Completed [facility] Pneumococcal 13 Conjugate, PCV13 (Prevnar 13) 2013-01-24 00:00:00 Completed [facility] HIB 4 Dose Schedule 2013-01-24 00:00:00 Completed [facility] Hep B, Dtap, Polio 2013-01-24 00:00:00 Completed [facility] Pneumococcal 13 Conjugate, PCV13 (Prevnar 13) 2013-01-24 00:00:00 Completed [facility] HIB 4 Dose Schedule 2013-01-24 00:00:00 Completed [facility] Hep B, Dtap, Polio 2013-01-24 00:00:00 Completed [facility] Pneumococcal 13 Conjugate, PCV13 (Prevnar 13) 2013-01-24 00:00:00 Completed [facility] HIB 4 Dose Schedule 2013-01-24 00:00:00 Completed [facility] Hep B, Dtap, Polio 2013-01-24 00:00:00 Completed [facility] Pneumococcal 13 Conjugate, PCV13 (Prevnar 13) 2013-01-24 00:00:00 Completed [facility] HIB 4 Dose Schedule 2013-01-24 00:00:00 Completed [facility] Hep B, Dtap, Polio 2013-01-24 00:00:00 Completed [facility] Pneumococcal 13 Conjugate, PCV13 (Prevnar 13) 2013-01-24 00:00:00 Completed [facility] HIB 4 Dose Schedule 2013-01-24 00:00:00 Completed [facility] Hep B, Dtap, Polio 2013-01-24 00:00:00 Completed [facility] Pneumococcal 13 Conjugate, PCV13 (Prevnar 13) 2013-01-24 00:00:00 Completed [facility] HIB 4 Dose Schedule 2013-01-24 00:00:00 Completed [facility] Hep B, Dtap, Polio 2013-01-24 00:00:00 Completed [facility] Pneumococcal 13 Conjugate, PCV13 (Prevnar 13) 2013-01-24 00:00:00 Completed [facility] HIB 4 Dose Schedule 2013-01-24 00:00:00 Completed [facility] Hep B, Dtap, Polio 2013-01-24 00:00:00 Completed [facility] Pneumococcal 13 Conjugate, PCV13 (Prevnar 13) 2013-01-24 00:00:00 Completed [facility] HIB 4 Dose Schedule 2013-01-24 00:00:00 Completed [facility] Hep B, Dtap, Polio 2013-01-24 00:00:00 Completed [facility] Pneumococcal 13 Conjugate, PCV13 (Prevnar 13) 2013-01-24 00:00:00 Completed [facility] HIB 4 Dose Schedule 2013-01-24 00:00:00 Completed [facility] Hep B, Dtap, Polio 2013-01-24 00:00:00 Completed [facility] Pneumococcal 13 Conjugate, PCV13 (Prevnar 13) 2013-01-24 00:00:00 Completed [facility] HIB 4 Dose Schedule 2013-01-24 00:00:00 Completed [facility] Hep B, Dtap, Polio 2013-01-24 00:00:00 Completed [facility] Pneumococcal 13 Conjugate, PCV13 (Prevnar 13) 2013-01-24 00:00:00 Completed [facility] HIB 4 Dose Schedule 2013-01-24 00:00:00 Completed [facility] Hep B, Dtap, Polio 2013-01-24 00:00:00 Completed [facility] Pneumococcal 13 Conjugate, PCV13 (Prevnar 13) 2013-01-24 00:00:00 Completed [facility] HIB 4 Dose Schedule 2013-01-24 00:00:00 Completed [facility] Hep B, Dtap, Polio 2013-01-24 00:00:00 Completed [facility] Pneumococcal 13 Conjugate, PCV13 (Prevnar 13) 2013-01-24 00:00:00 Completed [facility] HIB 4 Dose Schedule 2013-01-24 00:00:00 Completed [facility] Hep B, Dtap, Polio 2013-01-24 00:00:00 Completed [facility] Pneumococcal 13 Conjugate, PCV13 (Prevnar 13) 2013-01-24 00:00:00 Completed [facility] HIB 4 Dose Schedule 2013-01-24 00:00:00 Completed [facility] Hep B, Dtap, Polio 2013-01-24 00:00:00 Completed [facility] Pneumococcal 13 Conjugate, PCV13 (Prevnar 13) 2013-01-24 00:00:00 Completed [facility] HIB 4 Dose Schedule 2013-01-24 00:00:00 Completed [facility] Hep B, Dtap, Polio 2013-01-24 00:00:00 Completed [facility] Pneumococcal 13 Conjugate, PCV13 (Prevnar 13) 2013-01-24 00:00:00 Completed [facility] HIB 4 Dose Schedule 2013-01-24 00:00:00 Completed [facility] Hep B, Dtap, Polio 2013-01-24 00:00:00 Completed [facility] Pneumococcal 13 Conjugate, PCV13 (Prevnar 13) 2013-01-24 00:00:00 Completed [facility] HIB 4 Dose Schedule 2013-01-24 00:00:00 Completed [facility] Hep B, Dtap, Polio 2013-01-24 00:00:00 Completed [facility] Pneumococcal 13 Conjugate, PCV13 (Prevnar 13) 2013-01-24 00:00:00 Completed [facility] HIB 4 Dose Schedule 2013-01-24 00:00:00 Completed [facility] Hep B, Dtap, Polio 2013-01-24 00:00:00 Completed [facility] Pneumococcal 13 Conjugate, PCV13 (Prevnar 13) 2013-01-24 00:00:00 Completed [facility] HIB 4 Dose Schedule 2013-01-24 00:00:00 Completed [facility] Hep B, Dtap, Polio 2013-01-24 00:00:00 Completed [facility] Pneumococcal 13 Conjugate, PCV13 (Prevnar 13) 2013-01-24 00:00:00 Completed [facility] HIB 4 Dose Schedule 2013-01-24 00:00:00 Completed [facility] Hep B, Dtap, Polio 2013-01-24 00:00:00 Completed [facility] Pneumococcal 13 Conjugate, PCV13 (Prevnar 13) 2013-01-24 00:00:00 Completed [facility] HIB 4 Dose Schedule 2013-01-24 00:00:00 Completed [facility] Hep B, Dtap, Polio 2013-01-24 00:00:00 Completed [facility] Pneumococcal 13 Conjugate, PCV13 (Prevnar 13) 2013-01-24 00:00:00 Completed [facility] HIB 4 Dose Schedule 2013-01-24 00:00:00 Completed [facility] Hep B, Dtap, Polio 2013-01-24 00:00:00 Completed [facility] Pneumococcal 13 Conjugate, PCV13 (Prevnar 13) 2013-01-24 00:00:00 Completed [facility] HIB 4 Dose Schedule 2013-01-24 00:00:00 Completed [facility] Hep B, Dtap, Polio 2013-01-24 00:00:00 Completed [facility] Pneumococcal 13 Conjugate, PCV13 (Prevnar 13) 2013-01-24 00:00:00 Completed [facility] HIB 4 Dose Schedule 2013-01-24 00:00:00 Completed [facility] Hep B, Dtap, Polio 2013-01-24 00:00:00 Completed [facility] Pneumococcal 13 Conjugate, PCV13 (Prevnar 13) 2013-01-24 00:00:00 Completed [facility] HIB 4 Dose Schedule 2013-01-24 00:00:00 Completed [facility] Hep B, Dtap, Polio 2013-01-24 00:00:00 Completed [facility] Pneumococcal 13 Conjugate, PCV13 (Prevnar 13) 2013-01-24 00:00:00 Completed [facility] HIB 4 Dose Schedule 2013-01-24 00:00:00 Completed [facility] Hep B, Dtap, Polio 2013-01-24 00:00:00 Completed [facility] Pneumococcal 13 Conjugate, PCV13 (Prevnar 13) 2013-01-24 00:00:00 Completed [facility] HIB 4 Dose Schedule 2013-01-24 00:00:00 Completed [facility] Hep B, Dtap, Polio 2013-01-24 00:00:00 Completed [facility] Pneumococcal 13 Conjugate, PCV13 (Prevnar 13) 2013-01-24 00:00:00 Completed [facility] HIB 4 Dose Schedule 2013-01-24 00:00:00 Completed [facility] Hep B, Dtap, Polio 2013-01-24 00:00:00 Completed [facility] Pneumococcal 13 Conjugate, PCV13 (Prevnar 13) 2013-01-24 00:00:00 Completed [facility] HIB 4 Dose Schedule 2013-01-24 00:00:00 Completed [facility] Hep B, Dtap, Polio 2013-01-24 00:00:00 Completed [facility] Pneumococcal 13 Conjugate, PCV13 (Prevnar 13) 2013-01-24 00:00:00 Completed [facility] HIB 4 Dose Schedule 2013-01-24 00:00:00 Completed [facility] Hep B, Dtap, Polio 2013-01-24 00:00:00 Completed [facility] Pneumococcal 13 Conjugate, PCV13 (Prevnar 13) 2013-01-24 00:00:00 Completed [facility] HIB 4 Dose Schedule 2013-01-24 00:00:00 Completed [facility] Hep B, Dtap, Polio 2013-01-24 00:00:00 Completed [facility] Pneumococcal 13 Conjugate, PCV13 (Prevnar 13) 2013-01-24 00:00:00 Completed [facility] HIB 4 Dose Schedule 2013-01-24 00:00:00 Completed [facility] Hep B, Dtap, Polio 2013-01-24 00:00:00 Completed [facility] Pneumococcal 13 Conjugate, PCV13 (Prevnar 13) 2013-01-24 00:00:00 Completed [facility] HIB 4 Dose Schedule 2013-01-24 00:00:00 Completed [facility] Hep B, Dtap, Polio 2013-01-24 00:00:00 Completed [facility] Pneumococcal 13 Conjugate, PCV13 (Prevnar 13) 2013-01-24 00:00:00 Completed [facility] HIB 4 Dose Schedule 2013-01-24 00:00:00 Completed [facility] Hep B, Dtap, Polio 2013-01-24 00:00:00 Completed [facility] Pneumococcal 13 Conjugate, PCV13 (Prevnar 13) 2013-01-24 00:00:00 Completed [facility] HIB 4 Dose Schedule 2013-01-24 00:00:00 Completed [facility] Hep B, Dtap, Polio 2013-01-24 00:00:00 Completed [facility] Pneumococcal 13 Conjugate, PCV13 (Prevnar 13) 2013-01-24 00:00:00 Completed [facility] HIB 4 Dose Schedule 2013-01-24 00:00:00 Completed [facility] Hep B, Dtap, Polio 2013-01-24 00:00:00 Completed [facility] Hib-HbOC 2013-01-24 00:00:00 Completed [facility] Pneumococcal 13 Conjugate, PCV13 (Prevnar 13) 2013-01-24 00:00:00 Completed [facility] HIB 4 Dose Schedule 2013-01-24 00:00:00 Completed [facility] Hep B, Dtap, Polio 2013-01-24 00:00:00 Completed [facility] Hib-HbOC 2013-01-24 00:00:00 Completed [facility] Pneumococcal 13 Conjugate, PCV13 (Prevnar 13) 2012-06-13 00:00:00 Completed [facility] Pneumococcal 13 Conjugate, PCV13 (Prevnar 13) 2012-06-13 00:00:00 Completed [facility] DTAP 2012-05-09 00:00:00 Completed [facility] DTaP, Unspecified Formulation 2012-05-09 00:00:00 Completed [facility] DTAP 2012-05-09 00:00:00 Completed [facility] DTaP, Unspecified Formulation 2012-05-09 00:00:00 Completed [facility] Flu Whole Virus 2010-07-30 00:00:00 Completed [facility] Flu Whole Virus 2010-07-30 00:00:00 Completed [facility] Flu Trivalent 2009-08-21 00:00:00 Completed [facility] Flu Trivalent 2009-08-21 00:00:00 Completed [facility] DTaP, Unspecified Formulation 2006-06-22 00:00:00 Completed [facility] HEPATITIS A 2006-06-22 00:00:00 Completed [facility] DTaP, Unspecified Formulation 2006-06-22 00:00:00 Completed [facility] HEPATITIS A 2006-06-22 00:00:00 Completed [facility] HEPATITIS A 2005-06-21 00:00:00 Completed [facility] Pneumococcal 7 Conjugate, PCV7 (Prevnar7) 2005-06-21 00:00:00 Completed [facility] HEPATITIS A 2005-06-21 00:00:00 Completed [facility] Pneumococcal 7 Conjugate, PCV7 (Prevnar7) 2005-06-21 00:00:00 Completed [facility] HIB 4 Dose Schedule 2005-04-22 00:00:00 Completed [facility] MMR 2005-04-22 00:00:00 Completed [facility] IPV 2005-04-22 00:00:00 Completed [facility] HIB 4 Dose Schedule 2005-04-22 00:00:00 Completed [facility] MMR 2005-04-22 00:00:00 Completed [facility] IPV 2005-04-22 00:00:00 Completed [facility] DTaP, Unspecified Formulation 2005-02-14 00:00:00 Completed [facility] HIB 4 Dose Schedule 2005-02-14 00:00:00 Completed [facility] MMR 2005-02-14 00:00:00 Completed [facility] IPV 2005-02-14 00:00:00 Completed [facility] Varicella (varivax)(chicken pox) 2005-02-14 00:00:00 Completed [facility] DTaP, Unspecified Formulation 2005-02-14 00:00:00 Completed [facility] HIB 4 Dose Schedule 2005-02-14 00:00:00 Completed [facility] MMR 2005-02-14 00:00:00 Completed [facility] IPV 2005-02-14 00:00:00 Completed [facility] Varicella (varivax)(chicken pox) 2005-02-14 00:00:00 Completed [facility] DTaP, Unspecified Formulation 2001-10-10 00:00:00 Completed [facility] Hep B, Adol or Pedi Dosage 2001-10-10 00:00:00 Completed [facility] HIB 4 Dose Schedule 2001-10-10 00:00:00 Completed [facility] IPV 2001-10-10 00:00:00 Completed [facility] DTaP, Unspecified Formulation 2001-10-10 00:00:00 Completed [facility] Hep B, Adol or Pedi Dosage 2001-10-10 00:00:00 Completed [facility] HIB 4 Dose Schedule 2001-10-10 00:00:00 Completed [facility] IPV 2001-10-10 00:00:00 Completed [facility] DTaP, Unspecified Formulation 2001-03-01 00:00:00 Completed [facility] HIB 4 Dose Schedule 2001-03-01 00:00:00 Completed [facility] IPV 2001-03-01 00:00:00 Completed [facility] DTaP, Unspecified Formulation 2001-03-01 00:00:00 Completed [facility] HIB 4 Dose Schedule 2001-03-01 00:00:00 Completed [facility] IPV 2001-03-01 00:00:00 Completed [facility] Hep B, Adol or Pedi Dosage 2001-01-31 00:00:00 Completed [facility] Hep B, Adol or Pedi Dosage 2001-01-31 00:00:00 Completed [facility] Hep B, Adol or Pedi Dosage 2000 00:00:00 Completed [facility] Hep B, Adol or Pedi Dosage 2000 00:00:00 Completed [facility] Pneumococcal 13 Conjugate, PCV13 (Prevnar 13) Unknown Completed [facility] HIB 4 Dose Schedule Unknown Completed [facility] Hep B, Dtap, Polio Unknown Completed [facility] HEPATITIS A Unknown Completed [facility] Hep B, Adol or Pedi Dosage Unknown Completed [facility] Meningococcal Polysaccharide (groups A, C, Y and W-135) conjugate vaccine (MCV4P) Unknown Completed [facility] DTAP Unknown Completed [facility] Polio (IPV/OPV) Unknown Completed [facility] Pneumococcal 7 Conjugate, PCV7 (Prevnar7) Unknown Completed [facility] SARS-COV-2 COVID-19 PFIZER VACCINE Unknown Completed [facility] SARS-COV-2 COVID-19 PFIZER VACCINE Unknown Completed [facility] SARS-COV-2 COVID-19 PFIZER VACCINE Unknown Completed [facility] HEPATITIS A Unknown Completed [facility] Heamophilus Influenza B Unknown Completed [facility] DTAP Unknown Completed [facility] DTaP, Unspecified Formulation Unknown Completed [facility] DTaP, Unspecified Formulation Unknown Completed [facility] DTaP, Unspecified Formulation Unknown Completed [facility] DTaP, Unspecified Formulation Unknown Completed [facility] DTaP, Unspecified Formulation Unknown Completed [facility] DTaP, Unspecified Formulation Unknown Completed [facility] Influenza Virus Vaccine Quad .5 mL IM 6+ MO (FLUZONE/FLULAVAL/FL UARIX) Unknown Completed [facility] Flu Trivalent Unknown Completed [facility] Flu Trivalent Unknown Completed [facility] Flu Whole Virus Unknown Completed [facility] HEP B, Adult Dosage Unknown Completed [facility] Hep B, Adol or Pedi Dosage Unknown Completed [facility] HEPA,NOS Unknown Completed [facility] HEPATITIS A Unknown Completed [facility] HEPATITIS A Unknown Completed [facility] Hep B, Adol or Pedi Dosage Unknown Completed [facility] Hep B, Adol or Pedi Dosage Unknown Completed [facility] Hep B, Adol or Pedi Dosage Unknown Completed [facility] Hib-HbOC Unknown Completed [facility] HIB 3 Dose Schedule Unknown Completed [facility] HIB 4 Dose Schedule Unknown Completed [facility] HIB 4 Dose Schedule Unknown Completed [facility] HIB 4 Dose Schedule Unknown Completed [facility] HIB 4 Dose Schedule Unknown Completed [facility] HPV9 Unknown Completed [facility] Meningococcal Polysaccharide (groups A, C, Y and W-135) conjugate vaccine (MCV4P) Unknown Completed [facility] MMR Unknown Completed [facility] MMR Unknown Completed [facility] MMR Unknown Completed [facility] Proquad (MMR/VARICELLA) Unknown Completed [facility] Pneumococcal 13 Conjugate, PCV13 (Prevnar 13) Unknown Completed [facility] Pneumococcal 13 Conjugate, PCV13 (Prevnar 13) Unknown Completed [facility] Pneumococcal 13 Conjugate, PCV13 (Prevnar 13) Unknown Completed [facility] Pneumococcal 7 Conjugate, PCV7 (Prevnar7) Unknown Completed [facility] Pneumococcal Polysaccharide, PPSV23 (PNEUMOVAX) Unknown Completed [facility] IPV Unknown Completed [facility] IPV Unknown Completed [facility] IPV Unknown Completed [facility] IPV Unknown Completed [facility] IPV Unknown Completed [facility] IPV Unknown Completed [facility] IPV Unknown Completed [facility] Varicella (varivax)(chicken pox) Unknown Completed [facility] Varicella (varivax)(chicken pox) Unknown Completed [facility] Pneumococcal 13 Conjugate, PCV13 (Prevnar 13) Unknown Completed [facility] HIB 4 Dose Schedule Unknown Completed [facility] Hep B, Dtap, Polio [facility] Hep B, Adol or Pedi Dosage Unknown Completed [facility] Meningococcal Polysaccharide (groups A, C, Y and W-135) conjugate vaccine (MCV4P) Unknown Completed [facility] DTAP Unknown Completed [facility] Polio (IPV/OPV) Unknown Completed [facility] Pneumococcal 7 Conjugate, PCV7 (Prevnar7) Unknown Completed [facility] SARS-COV-2 COVID-19 PFIZER VACCINE Unknown Completed [facility] SARS-COV-2 COVID-19 PFIZER VACCINE Unknown Completed [facility] SARS-COV-2 COVID-19 PFIZER VACCINE Unknown Completed [facility] HEPATITIS A Unknown Completed [facility] Heamophilus Influenza B Unknown Completed [facility] DTAP Unknown Completed [facility] DTaP, Unspecified Formulation Unknown Completed [facility] DTaP, Unspecified Formulation Unknown Completed [facility] DTaP, Unspecified Formulation Unknown Completed [facility] DTaP, Unspecified Formulation Unknown Completed [facility] DTaP, Unspecified Formulation Unknown Completed [facility] DTaP, Unspecified Formulation Unknown Completed [facility] Influenza Virus Vaccine Quad .5 mL IM 6+ MO (FLUZONE/FLULAVAL/FL UARIX) Unknown Completed [facility] Flu Trivalent Unknown Completed [facility] Flu Trivalent Unknown Completed [facility] Flu Whole Virus Unknown Completed [facility] HEP B, Adult Dosage Unknown Completed [facility] Hep B, Adol or Pedi Dosage Unknown Completed [facility] HEPA,NOS Unknown Completed [facility] HEPATITIS A Unknown Completed [facility] HEPATITIS A Unknown Completed [facility] Hep B, Adol or Pedi Dosage Unknown Completed [facility] Hep B, Adol or Pedi Dosage Unknown Completed [facility] Hep B, Adol or Pedi Dosage Unknown Completed [facility] Hib-HbOC Unknown Completed [facility] HIB 3 Dose Schedule Unknown Completed [facility] HIB 4 Dose Schedule Unknown Completed [facility] HIB 4 Dose Schedule Unknown Completed [facility] HIB 4 Dose Schedule Unknown Completed [facility] HIB 4 Dose Schedule Unknown Completed [facility] HPV9 Unknown Completed [facility] Meningococcal Polysaccharide (groups A, C, Y and W-135) conjugate vaccine (MCV4P) Unknown Completed [facility] MMR Unknown Completed [facility] MMR Unknown Completed [facility] MMR Unknown Completed [facility] Proquad (MMR/VARICELLA) Unknown Completed [facility] Pneumococcal 13 Conjugate, PCV13 (Prevnar 13) Unknown Completed [facility] Pneumococcal 13 Conjugate, PCV13 (Prevnar 13) Unknown Completed [facility] Pneumococcal 13 Conjugate, PCV13 (Prevnar 13) Unknown Completed [facility] Pneumococcal 7 Conjugate, PCV7 (Prevnar7) Unknown Completed [facility] Pneumococcal Polysaccharide, PPSV23 (PNEUMOVAX) Unknown Completed [facility] IPV Unknown Completed [facility] IPV Unknown Completed [facility] IPV Unknown Completed [facility] IPV Unknown Completed [facility] IPV Unknown Completed [facility] IPV Unknown Completed [facility] IPV Unknown Completed [facility] Varicella (varivax)(chicken pox) Unknown Completed [facility] Varicella (varivax)(chicken pox) Unknown Completed [facility] Pneumococcal 13 Conjugate, PCV13 (Prevnar 13) Unknown Completed [facility] HIB 4 Dose Schedule Unknown Completed [facility] Hep B, Dtap, Polio Unknown Completed [facility] HEPATITIS A Unknown Completed [facility] Hep B, Adol or Pedi Dosage Unknown Completed [facility] Meningococcal Polysaccharide (groups A, C, Y and W-135) conjugate vaccine (MCV4P) Unknown Completed [facility] DTAP Unknown Completed [facility] Polio (IPV/OPV) Unknown Completed [facility] Pneumococcal 7 Conjugate, PCV7 (Prevnar7) Unknown Completed [facility] SARS-COV-2 COVID-19 PFIZER VACCINE Unknown Completed [facility] SARS-COV-2 COVID-19 PFIZER VACCINE Unknown Completed [facility] SARS-COV-2 COVID-19 PFIZER VACCINE Unknown Completed [facility] HEPATITIS A Unknown Completed [facility] Heamophilus Influenza B Unknown Completed [facility] DTAP Unknown Completed [facility] DTaP, Unspecified Formulation Unknown Completed [facility] DTaP, Unspecified Formulation Unknown Completed [facility] DTaP, Unspecified Formulation Unknown Completed [facility] DTaP, Unspecified Formulation Unknown Completed [facility] DTaP, Unspecified Formulation Unknown Completed [facility] DTaP, Unspecified Formulation Unknown Completed [facility] Influenza Virus Vaccine Quad .5 mL IM 6+ MO (FLUZONE/FLULAVAL/FL UARIX) Unknown Completed [facility] Flu Trivalent Unknown Completed [facility] Flu Trivalent Unknown Completed [facility] Flu Whole Virus Unknown Completed [facility] HEP B, Adult Dosage Unknown Completed [facility] Hep B, Adol or Pedi Dosage Unknown Completed [facility] HEPA,NOS Unknown Completed [facility] HEPATITIS A Unknown Completed [facility] HEPATITIS A Unknown Completed [facility] Hep B, Adol or Pedi Dosage Unknown Completed [facility] Hep B, Adol or Pedi Dosage Unknown Completed [facility] Hep B, Adol or Pedi Dosage Unknown Completed [facility] Hib-HbOC Unknown Completed [facility] HIB 3 Dose Schedule Unknown Completed [facility] HIB 4 Dose Schedule Unknown Completed [facility] HIB 4 Dose Schedule Unknown Completed [facility] HIB 4 Dose Schedule Unknown Completed [facility] HIB 4 Dose Schedule Unknown Completed [facility] HPV9 Unknown Completed [facility] Meningococcal Polysaccharide (groups A, C, Y and W-135) conjugate vaccine (MCV4P) Unknown Completed [facility] MMR Unknown Completed [facility] MMR Unknown Completed [facility] MMR Unknown Completed [facility] Proquad (MMR/VARICELLA) Unknown Completed [facility] Pneumococcal 13 Conjugate, PCV13 (Prevnar 13) Unknown Completed [facility] Pneumococcal 13 Conjugate, PCV13 (Prevnar 13) Unknown Completed [facility] Pneumococcal 13 Conjugate, PCV13 (Prevnar 13) Unknown Completed [facility] Pneumococcal 7 Conjugate, PCV7 (Prevnar7) Unknown Completed [facility] Pneumococcal Polysaccharide, PPSV23 (PNEUMOVAX) Unknown Completed [facility] IPV Unknown Completed [facility] IPV Unknown Completed [facility] IPV Unknown Completed [facility] IPV Unknown Completed [facility] IPV Unknown Completed [facility] IPV Unknown Completed [facility] IPV Unknown Completed [facility] Varicella (varivax)(chicken pox) Unknown Completed [facility] Varicella (varivax)(chicken pox) Unknown Completed [facility] Pneumococcal 13 Conjugate, PCV13 (Prevnar 13) Unknown Completed [facility] HIB 4 Dose Schedule Unknown Completed [facility] Hep B, Dtap, Polio Unknown Completed [facility] HEPATITIS A Unknown Completed [facility] Hep B, Adol or Pedi Dosage Unknown Completed [facility] Meningococcal Polysaccharide (groups A, C, Y and W-135) conjugate vaccine (MCV4P) Unknown Completed [facility] DTAP Unknown Completed [facility] Polio (IPV/OPV) Unknown Completed [facility] Pneumococcal 7 Conjugate, PCV7 (Prevnar7) Unknown Completed [facility] SARS-COV-2 COVID-19 PFIZER VACCINE Unknown Completed [facility] SARS-COV-2 COVID-19 PFIZER VACCINE Unknown Completed [facility] SARS-COV-2 COVID-19 PFIZER VACCINE Unknown Completed [facility] HEPATITIS A Unknown Completed [facility] Heamophilus Influenza B Unknown Completed [facility] DTAP Unknown Completed [facility] DTaP, Unspecified Formulation Unknown Completed [facility] DTaP, Unspecified Formulation Unknown Completed [facility] DTaP, Unspecified Formulation Unknown Completed [facility] DTaP, Unspecified Formulation Unknown Completed [facility] DTaP, Unspecified Formulation Unknown Completed [facility] DTaP, Unspecified Formulation Unknown Completed [facility] Influenza Virus Vaccine Quad .5 mL IM 6+ MO (FLUZONE/FLULAVAL/FL UARIX) Unknown Completed [facility] Flu Trivalent Unknown Completed [facility] Flu Trivalent Unknown Completed [facility] Flu Whole Virus Unknown Completed [facility] HEP B, Adult Dosage Unknown Completed [facility] Hep B, Adol or Pedi Dosage Unknown Completed [facility] HEPA,NOS Unknown Completed [facility] HEPATITIS A Unknown Completed [facility] HEPATITIS A Unknown Completed [facility] Hep B, Adol or Pedi Dosage Unknown Completed [facility] Hep B, Adol or Pedi Dosage Unknown Completed [facility] Hep B, Adol or Pedi Dosage Unknown Completed [facility] Hib-HbOC Unknown Completed [facility] HIB 3 Dose Schedule Unknown Completed [facility] HIB 4 Dose Schedule Unknown Completed [facility] HIB 4 Dose Schedule Unknown Completed [facility] HIB 4 Dose Schedule Unknown Completed [facility] HIB 4 Dose Schedule Unknown Completed [facility] HPV9 Unknown Completed [facility] Meningococcal Polysaccharide (groups A, C, Y and W-135) conjugate vaccine (MCV4P) Unknown Completed [facility] MMR Unknown Completed [facility] MMR Unknown Completed [facility] MMR Unknown Completed [facility] Proquad (MMR/VARICELLA) Unknown Completed [facility] Pneumococcal 13 Conjugate, PCV13 (Prevnar 13) Unknown Completed [facility] Pneumococcal 13 Conjugate, PCV13 (Prevnar 13) Unknown Completed [facility] Pneumococcal 13 Conjugate, PCV13 (Prevnar 13) Unknown Completed [facility] Pneumococcal 7 Conjugate, PCV7 (Prevnar7) Unknown Completed [facility] Pneumococcal Polysaccharide, PPSV23 (PNEUMOVAX) Unknown Completed [facility] IPV Unknown Completed [facility] IPV Unknown Completed [facility] IPV Unknown Completed [facility] IPV Unknown Completed [facility] IPV Unknown Completed [facility] IPV Unknown Completed [facility] IPV Unknown Completed [facility] Varicella (varivax)(chicken pox) Unknown Completed [facility] Varicella (varivax)(chicken pox) Unknown Completed [facility] TDAP Unknown Completed [facility] HIB PRP-D,booster Unknown [facility] Pneumococcal 13 Conjugate, PCV13 (Prevnar 13) Unknown Completed [facility] HIB 4 Dose Schedule Unknown Completed [facility] Hep B, Dtap, Polio [facility] Hep B, Adol or Pedi Dosage Unknown Completed [facility] Meningococcal Polysaccharide (groups A, C, Y and W-135) conjugate vaccine (MCV4P) Unknown Completed [facility] DTAP Unknown Completed [facility] Polio (IPV/OPV) Unknown Completed [facility] Pneumococcal 7 Conjugate, PCV7 (Prevnar7) Unknown Completed [facility] SARS-COV-2 COVID-19 PFIZER VACCINE Unknown Completed [facility] SARS-COV-2 COVID-19 PFIZER VACCINE Unknown Completed [facility] SARS-COV-2 COVID-19 PFIZER VACCINE Unknown Completed [facility] HEPATITIS A Unknown Completed [facility] Heamophilus Influenza B Unknown Completed [facility] DTAP Unknown Completed [facility] DTaP, Unspecified Formulation Unknown Completed [facility] DTaP, Unspecified Formulation Unknown Completed [facility] DTaP, Unspecified Formulation Unknown Completed [facility] DTaP, Unspecified Formulation Unknown Completed [facility] DTaP, Unspecified Formulation Unknown Completed [facility] DTaP, Unspecified Formulation Unknown Completed [facility] Influenza Virus Vaccine Quad .5 mL IM 6+ MO (FLUZONE/FLULAVAL/FL UARIX) Unknown Completed [facility] Flu Trivalent Unknown Completed [facility] Flu Trivalent Unknown Completed [facility] Flu Whole Virus Unknown Completed [facility] HEP B, Adult Dosage Unknown Completed [facility] Hep B, Adol or Pedi Dosage Unknown Completed [facility] HEPA,NOS Unknown Completed [facility] HEPATITIS A Unknown Completed [facility] HEPATITIS A Unknown Completed [facility] Hep B, Adol or Pedi Dosage Unknown Completed [facility] Hep B, Adol or Pedi Dosage Unknown Completed [facility] Hep B, Adol or Pedi Dosage Unknown Completed [facility] Hib-HbOC Unknown Completed [facility] HIB 3 Dose Schedule Unknown Completed [facility] HIB 4 Dose Schedule Unknown Completed [facility] HIB 4 Dose Schedule Unknown Completed [facility] HIB 4 Dose Schedule Unknown Completed [facility] HIB 4 Dose Schedule Unknown Completed [facility] HPV9 Unknown Completed [facility] Meningococcal Polysaccharide (groups A, C, Y and W-135) conjugate vaccine (MCV4P) Unknown Completed [facility] MMR Unknown Completed [facility] MMR Unknown Completed [facility] MMR Unknown Completed [facility] Proquad (MMR/VARICELLA) Unknown Completed [facility] Pneumococcal 13 Conjugate, PCV13 (Prevnar 13) Unknown Completed [facility] Pneumococcal 13 Conjugate, PCV13 (Prevnar 13) Unknown Completed [facility] Pneumococcal 13 Conjugate, PCV13 (Prevnar 13) Unknown Completed [facility] Pneumococcal 7 Conjugate, PCV7 (Prevnar7) Unknown Completed [facility] Pneumococcal Polysaccharide, PPSV23 (PNEUMOVAX) Unknown Completed [facility] IPV Unknown Completed [facility] IPV Unknown Completed [facility] IPV Unknown Completed [facility] IPV Unknown Completed [facility] IPV Unknown Completed [facility] IPV Unknown Completed [facility] IPV Unknown Completed [facility] Varicella (varivax)(chicken pox) Unknown Completed [facility] Varicella (varivax)(chicken pox) Unknown Completed [facility] TDAP Unknown Completed [facility] HIB PRP-D,booster Unknown Completed [facility] Pneumococcal 13 Conjugate, PCV13 (Prevnar 13) Unknown Completed [facility] HIB 4 Dose Schedule Unknown Completed [facility] Hep B, Dtap, Polio Unknown Completed [facility] HEPATITIS A Unknown Completed [facility] Hep B, Adol or Pedi Dosage Unknown Completed [facility] Meningococcal Polysaccharide (groups A, C, Y and W-135) conjugate vaccine (MCV4P) Unknown Completed [facility] DTAP Unknown Completed [facility] Polio (IPV/OPV) Unknown Completed [facility] Pneumococcal 7 Conjugate, PCV7 (Prevnar7) Unknown Completed [facility] SARS-COV-2 COVID-19 PFIZER VACCINE Unknown Completed [facility] SARS-COV-2 COVID-19 PFIZER VACCINE Unknown Completed [facility] SARS-COV-2 COVID-19 PFIZER VACCINE Unknown Completed [facility] HEPATITIS A Unknown Completed [facility] Heamophilus Influenza B Unknown Completed [facility] DTAP Unknown Completed [facility] DTaP, Unspecified Formulation Unknown Completed [facility] DTaP, Unspecified Formulation Unknown Completed [facility] DTaP, Unspecified Formulation Unknown Completed [facility] DTaP, Unspecified Formulation Unknown Completed [facility] DTaP, Unspecified Formulation Unknown Completed [facility] DTaP, Unspecified Formulation Unknown Completed [facility] Influenza Virus Vaccine Quad .5 mL IM 6+ MO (FLUZONE/FLULAVAL/FL UARIX) Unknown Completed [facility] Flu Trivalent Unknown Completed [facility] Flu Trivalent Unknown Completed [facility] Flu Whole Virus Unknown Completed [facility] HEP B, Adult Dosage Unknown Completed [facility] Hep B, Adol or Pedi Dosage Unknown Completed [facility] HEPA,NOS Unknown Completed [facility] HEPATITIS A Unknown Completed [facility] HEPATITIS A Unknown Completed [facility] Hep B, Adol or Pedi Dosage Unknown Completed [facility] Hep B, Adol or Pedi Dosage Unknown Completed [facility] Hep B, Adol or Pedi Dosage Unknown Completed [facility] Hib-HbOC Unknown Completed [facility] HIB 3 Dose Schedule Unknown Completed [facility] HIB 4 Dose Schedule Unknown Completed [facility] HIB 4 Dose Schedule Unknown Completed [facility] HIB 4 Dose Schedule Unknown Completed [facility] HIB 4 Dose Schedule Unknown Completed [facility] HPV9 Unknown Completed [facility] Meningococcal Polysaccharide (groups A, C, Y and W-135) conjugate vaccine (MCV4P) Unknown Completed [facility] MMR Unknown Completed [facility] MMR Unknown Completed [facility] MMR Unknown Completed [facility] Proquad (MMR/VARICELLA) Unknown Completed [facility] Pneumococcal 13 Conjugate, PCV13 (Prevnar 13) Unknown Completed [facility] Pneumococcal 13 Conjugate, PCV13 (Prevnar 13) Unknown Completed [facility] Pneumococcal 13 Conjugate, PCV13 (Prevnar 13) Unknown Completed [facility] Pneumococcal 7 Conjugate, PCV7 (Prevnar7) Unknown Completed [facility] Pneumococcal Polysaccharide, PPSV23 (PNEUMOVAX) Unknown Completed [facility] IPV Unknown Completed [facility] IPV Unknown Completed [facility] IPV Unknown Completed [facility] IPV Unknown Completed [facility] IPV Unknown Completed [facility] IPV Unknown Completed [facility] IPV Unknown Completed [facility] Varicella (varivax)(chicken pox) Unknown Completed [facility] Varicella (varivax)(chicken pox) Unknown Completed [facility] TDAP Unknown Completed [facility] HIB PRP-D,booster Unknown [facility] Pneumococcal 13 Conjugate, PCV13 (Prevnar 13) Unknown Completed [facility] HIB 4 Dose Schedule Unknown Completed [facility] Hep B, Dtap, Polio Unknown [facility] Com[facility] Hep B, Adol or Pedi Dosage Unknown Completed [facility] Meningococcal Polysaccharide (groups A, C, Y and W-135) conjugate vaccine (MCV4P) Unknown Completed [facility] DTAP Unknown Completed [facility] Polio (IPV/OPV) Unknown Completed [facility] Pneumococcal 7 Conjugate, PCV7 (Prevnar7) Unknown Completed [facility] SARS-COV-2 COVID-19 PFIZER VACCINE Unknown Completed [facility] SARS-COV-2 COVID-19 PFIZER VACCINE Unknown Completed [facility] SARS-COV-2 COVID-19 PFIZER VACCINE Unknown Completed [facility] HEPATITIS A Unknown Completed [facility] Heamophilus Influenza B Unknown Completed [facility] DTAP Unknown Completed [facility] DTaP, Unspecified Formulation Unknown Completed [facility] DTaP, Unspecified Formulation Unknown Completed [facility] DTaP, Unspecified Formulation Unknown Completed [facility] DTaP, Unspecified Formulation Unknown Completed [facility] DTaP, Unspecified Formulation Unknown Completed [facility] DTaP, Unspecified Formulation Unknown Completed [facility] Influenza Virus Vaccine Quad .5 mL IM 6+ MO (FLUZONE/FLULAVAL/FL UARIX) Unknown Completed [facility] Flu [facility]rivalent [facility] Flu Whole Virus [facility], Adult Dosage Unknown Completed [facility] Hep B, Adol or Pedi Dosage Unknown Completed [facility] HEPA,NOS Unknown Completed [facility] HEPATITIS A Unknown Completed [facility] HEPATITIS A Unknown Completed [facility] Hep B, Adol or Pedi Dosage Unknown Completed [facility] Hep B, Adol or Pedi Dosage Unknown Completed [facility] Hep B, Adol or Pedi Dosage Unknown Completed [facility] Hib-HbOC Unknown Completed [facility] HIB 3 Dose Schedule Unknown Completed [facility] HIB 4 Dose Schedule Unknown Completed [facility] HIB 4 Dose Schedule Unknown Completed [facility] HIB 4 Dose Schedule Unknown Completed [facility] HIB 4 Dose Schedule Unknown Completed [facility] HPV9 Unknown Completed [facility] Meningococcal Polysaccharide (groups A, C, Y and W-135) conjugate vaccine (MCV4P) Unknown Completed [facility] MMR Unknown Completed [facility] MMR Unknown Completed [facility] MMR Unknown Completed [facility] Proquad (MMR/VARICELLA) Unknown Completed [facility] Pneumococcal 13 Conjugate, PCV13 (Prevnar 13) Unknown Completed [facility] Pneumococcal 13 Conjugate, PCV13 (Prevnar 13) Unknown Completed [facility] Pneumococcal 13 Conjugate, PCV13 (Prevnar 13) Unknown Completed [facility] Pneumococcal 7 Conjugate, PCV7 (Prevnar7) Unknown Completed [facility] Pneumococcal Polysaccharide, PPSV23 (PNEUMOVAX) Unknown Completed [facility] IPV Unknown Completed [facility] IPV Unknown Completed [facility] IPV Unknown Completed [facility] IPV Unknown Completed [facility] IPV Unknown Completed [facility] IPV Unknown Completed [facility] IPV Unknown Completed [facility] Varicella (varivax)(chicken pox) Unknown Completed [facility] Varicella (varivax)(chicken pox) Unknown Completed [facility] TDAP Unknown Completed [facility] HIB PRP-D,booster Unknown Completed [facility] Pneumococcal 13 Conjugate, PCV13 (Prevnar 13) Unknown Completed [facility] HIB 4 Dose Schedule Unknown Completed [facility] Hep B, Dtap, Polio [facility] Hep B, Adol or Pedi Dosage Unknown Completed [facility] Meningococcal Polysaccharide (groups A, C, Y and W-135) conjugate vaccine (MCV4P) Unknown Completed [facility] DTAP Unknown Completed [facility] Polio (IPV/OPV) Unknown Completed [facility] Pneumococcal 7 Conjugate, PCV7 (Prevnar7) Unknown Completed [facility] SARS-COV-2 COVID-19 PFIZER VACCINE Unknown Completed [facility] SARS-COV-2 COVID-19 PFIZER VACCINE Unknown Completed [facility] SARS-COV-2 COVID-19 PFIZER VACCINE Unknown Completed [facility] HEPATITIS A Unknown Completed [facility] Heamophilus Influenza B Unknown Completed [facility] DTAP Unknown Completed [facility] DTaP, Unspecified Formulation Unknown Completed [facility] DTaP, Unspecified Formulation Unknown Completed [facility] DTaP, Unspecified Formulation Unknown Completed [facility] DTaP, Unspecified Formulation Unknown Completed [facility] DTaP, Unspecified Formulation Unknown Completed [facility] DTaP, Unspecified Formulation Unknown Completed [facility] Influenza Virus Vaccine Quad .5 mL IM 6+ MO (FLUZONE/FLULAVAL/FL UARIX) Unknown Completed [facility] Flu Trivalent Unknown Completed [facility] Flu Trivalent Unknown Completed [facility] Flu Whole Virus Unknown Completed [facility] HEP B, Adult Dosage Unknown Completed [facility] Hep B, Adol or Pedi Dosage Unknown Completed [facility] HEPA,NOS Unknown Completed [facility] HEPATITIS A Unknown Completed [facility] HEPATITIS A Unknown Completed [facility] Hep B, Adol or Pedi Dosage Unknown Completed [facility] Hep B, Adol or Pedi Dosage Unknown Completed [facility] Hep B, Adol or Pedi Dosage Unknown Completed [facility] Hib-HbOC Unknown Completed [facility] HIB 3 Dose Schedule Unknown Completed [facility] HIB 4 Dose Schedule Unknown Completed [facility] HIB 4 Dose Schedule Unknown Completed [facility] HIB 4 Dose Schedule Unknown Completed [facility] HIB 4 Dose Schedule Unknown Completed [facility] HPV9 Unknown Completed [facility] Meningococcal Polysaccharide (groups A, C, Y and W-135) conjugate vaccine (MCV4P) Unknown Completed [facility] MMR Unknown Completed [facility] MMR Unknown Completed [facility] MMR Unknown Completed [facility] Proquad (MMR/VARICELLA) Unknown Completed [facility] Pneumococcal 13 Conjugate, PCV13 (Prevnar 13) Unknown Completed [facility] Pneumococcal 13 Conjugate, PCV13 (Prevnar 13) Unknown Completed [facility] Pneumococcal 13 Conjugate, PCV13 (Prevnar 13) Unknown Completed [facility] Pneumococcal 7 Conjugate, PCV7 (Prevnar7) Unknown Completed [facility] Pneumococcal Polysaccharide, PPSV23 (PNEUMOVAX) Unknown Completed [facility] IPV Unknown Completed [facility] IPV Unknown Completed [facility] IPV Unknown Completed [facility] IPV Unknown Completed [facility] IPV Unknown Completed [facility] IPV Unknown Completed [facility] IPV Unknown Completed [facility] Varicella (varivax)(chicken pox) Unknown Completed [facility] Varicella (varivax)(chicken pox) Unknown Completed [facility] TDAP Unknown Completed [facility] HIB PRP-D,booster Unknown Completed [facility] Pneumococcal 13 Conjugate, PCV13 (Prevnar 13) Unknown Completed [facility] HIB 4 Dose Schedule Unknown Completed [facility] Hep B, Dtap, Polio Unknown Completed [facility] HEPATITIS A Unknown Completed [facility] Hep B, Adol or Pedi Dosage Unknown Completed [facility] Meningococcal Polysaccharide (groups A, C, Y and W-135) conjugate vaccine (MCV4P) Unknown Completed [facility] DTAP Unknown Completed [facility] Polio (IPV/OPV) Unknown Completed [facility] Pneumococcal 7 Conjugate, PCV7 (Prevnar7) Unknown Completed [facility] SARS-COV-2 COVID-19 PFIZER VACCINE Unknown Completed [facility] SARS-COV-2 COVID-19 PFIZER VACCINE Unknown Completed [facility] SARS-COV-2 COVID-19 PFIZER VACCINE Unknown Completed [facility] HEPATITIS A Unknown Completed [facility] Heamophilus Influenza B Unknown Completed [facility] DTAP Unknown Completed [facility] DTaP, Unspecified Formulation Unknown Completed [facility] DTaP, Unspecified Formulation Unknown Completed [facility] DTaP, Unspecified Formulation Unknown Completed [facility] DTaP, Unspecified Formulation Unknown Completed [facility] DTaP, Unspecified Formulation Unknown Completed [facility] DTaP, Unspecified Formulation Unknown Completed [facility] Influenza Virus Vaccine Quad .5 mL IM 6+ MO (FLUZONE/FLULAVAL/FL UARIX) Unknown Completed [facility] Flu Trivalent Unknown Completed [facility] Flu Trivalent Unknown Completed [facility] Flu Whole Virus Unknown Completed [facility] HEP B, Adult Dosage Unknown Completed [facility] Hep B, Adol or Pedi Dosage Unknown Completed [facility] HEPA,NOS Unknown Completed [facility] HEPATITIS A Unknown Completed [facility] HEPATITIS A Unknown Completed [facility] Hep B, Adol or Pedi Dosage Unknown Completed [facility] Hep B, Adol or Pedi Dosage Unknown Completed [facility] Hep B, Adol or Pedi Dosage Unknown Completed [facility] Hib-HbOC Unknown Completed [facility] HIB 3 Dose Schedule Unknown Completed [facility] HIB 4 Dose Schedule Unknown Completed [facility] HIB 4 Dose Schedule Unknown Completed [facility] HIB 4 Dose Schedule Unknown Completed [facility] HIB 4 Dose Schedule Unknown Completed [facility] HPV9 Unknown Completed [facility] Meningococcal Polysaccharide (groups A, C, Y and W-135) conjugate vaccine (MCV4P) Unknown Completed [facility] MMR Unknown Completed [facility] MMR Unknown Completed [facility] MMR Unknown Completed [facility] Proquad (MMR/VARICELLA) Unknown Completed [facility] Pneumococcal 13 Conjugate, PCV13 (Prevnar 13) Unknown Completed [facility] Pneumococcal 13 Conjugate, PCV13 (Prevnar 13) Unknown Completed [facility] Pneumococcal 13 Conjugate, PCV13 (Prevnar 13) Unknown Completed [facility] Pneumococcal 7 Conjugate, PCV7 (Prevnar7) Unknown Completed [facility] Pneumococcal Polysaccharide, PPSV23 (PNEUMOVAX) Unknown Completed [facility] IPV Unknown Completed [facility] IPV Unknown Completed [facility] IPV Unknown Completed [facility] IPV Unknown Completed [facility] IPV Unknown Completed [facility] IPV Unknown Completed [facility] IPV Unknown Completed [facility] Varicella (varivax)(chicken pox) Unknown Completed [facility] Varicella (varivax)(chicken pox) Unknown Completed [facility] TDAP Unknown Completed [facility] HIB PRP-D,booster Unknown Completed [facility] Pneumococcal 13 Conjugate, PCV13 (Prevnar 13) Unknown Completed [facility] HIB 4 Dose Schedule Unknown Completed [facility] Hep B, Dtap, Polio Unknown Completed [facility] HEPATITIS A Unknown Completed [facility] Hep B, Adol or Pedi Dosage Unknown Completed [facility] Meningococcal Polysaccharide (groups A, C, Y and W-135) conjugate vaccine (MCV4P) Unknown Completed [facility] DTAP Unknown Completed [facility] Polio (IPV/OPV) Unknown Completed [facility] Pneumococcal 7 Conjugate, PCV7 (Prevnar7) Unknown Completed [facility] SARS-COV-2 COVID-19 PFIZER VACCINE Unknown Completed [facility] SARS-COV-2 COVID-19 PFIZER VACCINE Unknown Completed [facility] SARS-COV-2 COVID-19 PFIZER VACCINE Unknown Completed [facility] HEPATITIS A Unknown Completed [facility] Heamophilus Influenza B Unknown Completed [facility] DTAP Unknown Completed [facility] DTaP, Unspecified Formulation Unknown Completed [facility] DTaP, Unspecified Formulation Unknown Completed [facility] DTaP, Unspecified Formulation Unknown Completed [facility] DTaP, Unspecified Formulation Unknown Completed [facility] DTaP, Unspecified Formulation Unknown Completed [facility] DTaP, Unspecified Formulation Unknown Completed [facility] Influenza Virus Vaccine Quad .5 mL IM 6+ MO (FLUZONE/FLULAVAL/FL UARIX) Unknown Completed [facility] Flu Trivalent Unknown Completed [facility] Flu Trivalent Unknown Completed [facility] Flu Whole Virus Unknown Completed [facility] HEP B, Adult Dosage Unknown Completed [facility] Hep B, Adol or Pedi Dosage Unknown Completed [facility] HEPA,NOS Unknown Completed [facility] HEPATITIS A Unknown Completed [facility] HEPATITIS A Unknown Completed [facility] Hep B, Adol or Pedi Dosage Unknown Completed [facility] Hep B, Adol or Pedi Dosage Unknown Completed [facility] Hep B, Adol or Pedi Dosage Unknown Completed [facility] Hib-HbOC Unknown Completed [facility] HIB 3 Dose Schedule Unknown Completed [facility] HIB 4 Dose Schedule Unknown Completed [facility] HIB 4 Dose Schedule Unknown Completed [facility] HIB 4 Dose Schedule Unknown Completed [facility] HIB 4 Dose Schedule Unknown Completed [facility] HPV9 Unknown Completed [facility] Meningococcal Polysaccharide (groups A, C, Y and W-135) conjugate vaccine (MCV4P) Unknown Completed [facility] MMR Unknown Completed [facility] MMR Unknown Completed [facility] MMR Unknown Completed [facility] Proquad (MMR/VARICELLA) Unknown Completed [facility] Pneumococcal 13 Conjugate, PCV13 (Prevnar 13) Unknown Completed [facility] Pneumococcal 13 Conjugate, PCV13 (Prevnar 13) Unknown Completed [facility] Pneumococcal 13 Conjugate, PCV13 (Prevnar 13) Unknown Completed [facility] Pneumococcal 7 Conjugate, PCV7 (Prevnar7) Unknown Completed [facility] Pneumococcal Polysaccharide, PPSV23 (PNEUMOVAX) Unknown Completed [facility] IPV Unknown Completed [facility] IPV Unknown Completed [facility] IPV Unknown Completed [facility] IPV Unknown Completed [facility] IPV Unknown Completed [facility] IPV Unknown Completed [facility] IPV Unknown Completed [facility] Varicella (varivax)(chicken pox) Unknown Completed [facility] Varicella (varivax)(chicken pox) Unknown Completed [facility] TDAP Unknown Completed [facility] HIB PRP-D,booster Unknown [facility] Pneumococcal 13 Conjugate, PCV13 (Prevnar 13) Unknown Completed [facility] HIB 4 Dose Schedule Unknown Completed [facility] Hep B, Dtap, Polio Unknown Completed [facility] HEPATITIS A Unknown Completed [facility] Hep B, Adol or Pedi Dosage Unknown Completed [facility] Meningococcal Polysaccharide (groups A, C, Y and W-135) conjugate vaccine (MCV4P) Unknown Completed [facility] DTAP Unknown Completed [facility] Polio (IPV/OPV) Unknown Completed [facility] Pneumococcal 7 Conjugate, PCV7 (Prevnar7) Unknown Completed [facility] SARS-COV-2 COVID-19 PFIZER VACCINE Unknown Completed [facility] SARS-COV-2 COVID-19 PFIZER VACCINE Unknown Completed [facility] SARS-COV-2 COVID-19 PFIZER VACCINE Unknown Completed [facility] HEPATITIS A Unknown Completed [facility] Heamophilus Influenza B Unknown Completed [facility] DTAP Unknown Completed [facility] DTaP, Unspecified Formulation Unknown Completed [facility] DTaP, Unspecified Formulation Unknown Completed [facility] DTaP, Unspecified Formulation Unknown Completed [facility] DTaP, Unspecified Formulation Unknown Completed [facility] DTaP, Unspecified Formulation Unknown Completed [facility] DTaP, Unspecified Formulation Unknown Completed [facility] Influenza Virus Vaccine Quad .5 mL IM 6+ MO (FLUZONE/FLULAVAL/FL UARIX) Unknown Completed [facility] Flu Trivalent Unknown Completed [facility] Flu Trivalent Unknown Completed [facility] Flu Whole Virus Unknown Completed [facility] HEP B, Adult Dosage Unknown Completed [facility] Hep B, Adol or Pedi Dosage Unknown Completed [facility] HEPA,NOS Unknown Completed [facility] HEPATITIS A Unknown Completed [facility] HEPATITIS A Unknown Completed [facility] Hep B, Adol or Pedi Dosage Unknown Completed [facility] Hep B, Adol or Pedi Dosage Unknown Completed [facility] Hep B, Adol or Pedi Dosage Unknown Completed [facility] Hib-HbOC Unknown Completed [facility] HIB 3 Dose Schedule Unknown Completed [facility] HIB 4 Dose Schedule Unknown Completed [facility] HIB 4 Dose Schedule Unknown Completed [facility] HIB 4 Dose Schedule Unknown Completed [facility] HIB 4 Dose Schedule Unknown Completed [facility] HPV9 Unknown Completed [facility] Meningococcal Polysaccharide (groups A, C, Y and W-135) conjugate vaccine (MCV4P) Unknown Completed [facility] MMR Unknown Completed [facility] MMR Unknown Completed [facility] MMR Unknown Completed [facility] Proquad (MMR/VARICELLA) Unknown Completed [facility] Pneumococcal 13 Conjugate, PCV13 (Prevnar 13) Unknown Completed [facility] Pneumococcal 13 Conjugate, PCV13 (Prevnar 13) Unknown Completed [facility] Pneumococcal 13 Conjugate, PCV13 (Prevnar 13) Unknown Completed [facility] Pneumococcal 7 Conjugate, PCV7 (Prevnar7) Unknown Completed [facility] Pneumococcal Polysaccharide, PPSV23 (PNEUMOVAX) Unknown Completed [facility] IPV Unknown Completed [facility] IPV Unknown Completed [facility] IPV Unknown Completed [facility] IPV Unknown Completed [facility] IPV Unknown Completed [facility] IPV Unknown Completed [facility] IPV Unknown Completed [facility] Varicella (varivax)(chicken pox) Unknown Completed [facility] Varicella (varivax)(chicken pox) Unknown Completed [facility] TDAP Unknown Completed [facility] HIB PRP-D,booster Unknown Completed [facility] Pneumococcal 13 Conjugate, PCV13 (Prevnar 13) Unknown Completed [facility] HIB 4 Dose Schedule Unknown Completed [facility] Hep B, Dtap, Polio Unknown [facility] Hep B, Adol or Pedi Dosage Unknown Completed [facility] Meningococcal Polysaccharide (groups A, C, Y and W-135) conjugate vaccine (MCV4P) Unknown Completed [facility] DTAP Unknown Completed [facility] Polio (IPV/OPV) Unknown Completed [facility] Pneumococcal 7 Conjugate, PCV7 (Prevnar7) Unknown Completed [facility] SARS-COV-2 COVID-19 PFIZER VACCINE Unknown Completed [facility] SARS-COV-2 COVID-19 PFIZER VACCINE Unknown Completed [facility] SARS-COV-2 COVID-19 PFIZER VACCINE Unknown Completed [facility] HEPATITIS A Unknown Completed [facility] Heamophilus Influenza B Unknown Completed [facility] DTAP Unknown Completed [facility] DTaP, Unspecified Formulation Unknown Completed [facility] DTaP, Unspecified Formulation Unknown Completed [facility] DTaP, Unspecified Formulation Unknown Completed [facility] DTaP, Unspecified Formulation Unknown Completed [facility] DTaP, Unspecified Formulation Unknown Completed [facility] DTaP, Unspecified Formulation Unknown Completed [facility] Influenza Virus Vaccine Quad .5 mL IM 6+ MO (FLUZONE/FLULAVAL/FL UARIX) Unknown Completed [facility] Flu Trivalent Unknown Completed [facility] Flu Trivalent Unknown Completed [facility] Flu Whole Virus Unknown Completed [facility] HEP B, Adult Dosage Unknown Completed [facility] Hep B, Adol or Pedi Dosage Unknown Completed [facility] HEPA,NOS Unknown Completed [facility] HEPATITIS A Unknown Completed [facility] HEPATITIS A Unknown Completed [facility] Hep B, Adol or Pedi Dosage Unknown Completed [facility] Hep B, Adol or Pedi Dosage Unknown Completed [facility] Hep B, Adol or Pedi Dosage Unknown Completed [facility] Hib-HbOC Unknown Completed [facility] HIB 3 Dose Schedule Unknown Completed [facility] HIB 4 Dose Schedule Unknown Completed [facility] HIB 4 Dose Schedule Unknown Completed [facility] HIB 4 Dose Schedule Unknown Completed [facility] HIB 4 Dose Schedule Unknown Completed [facility] HPV9 Unknown Completed [facility] Meningococcal Polysaccharide (groups A, C, Y and W-135) conjugate vaccine (MCV4P) Unknown Completed [facility] MMR Unknown Completed [facility] MMR Unknown Completed [facility] MMR Unknown Completed [facility] Proquad (MMR/VARICELLA) Unknown Completed [facility] Pneumococcal 13 Conjugate, PCV13 (Prevnar 13) Unknown Completed [facility] Pneumococcal 13 Conjugate, PCV13 (Prevnar 13) Unknown Completed [facility] Pneumococcal 13 Conjugate, PCV13 (Prevnar 13) Unknown Completed [facility] Pneumococcal 7 Conjugate, PCV7 (Prevnar7) Unknown Completed [facility] Pneumococcal Polysaccharide, PPSV23 (PNEUMOVAX) Unknown Completed [facility] IPV Unknown Completed [facility] IPV Unknown Completed [facility] IPV Unknown Completed [facility] IPV Unknown Completed [facility] IPV Unknown Completed [facility] IPV Unknown Completed [facility] IPV Unknown Completed [facility] Varicella (varivax)(chicken pox) Unknown Completed [facility] Varicella (varivax)(chicken pox) Unknown Completed [facility] TDAP Unknown Completed [facility] HIB PRP-D,booster Unknown Completed [facility] Pneumococcal 13 Conjugate, PCV13 (Prevnar 13) Unknown Completed [facility] HIB 4 Dose Schedule Unknown Completed [facility] Hep B, Dtap, Polio Unknown Completed [facility] HEPATITIS A Unknown Completed [facility] Hep B, Adol or Pedi Dosage Unknown Completed [facility] Meningococcal Polysaccharide (groups A, C, Y and W-135) conjugate vaccine (MCV4P) Unknown Completed [facility] DTAP Unknown Completed [facility] Polio (IPV/OPV) Unknown Completed [facility] Pneumococcal 7 Conjugate, PCV7 (Prevnar7) Unknown Completed [facility] SARS-COV-2 COVID-19 PFIZER VACCINE Unknown Completed [facility] SARS-COV-2 COVID-19 PFIZER VACCINE Unknown Completed [facility] SARS-COV-2 COVID-19 PFIZER VACCINE Unknown Completed [facility] HEPATITIS A Unknown Completed [facility] Heamophilus Influenza B Unknown Completed [facility] DTAP Unknown Completed [facility] DTaP, Unspecified Formulation Unknown Completed [facility] DTaP, Unspecified Formulation Unknown Completed [facility] DTaP, Unspecified Formulation Unknown Completed [facility] DTaP, Unspecified Formulation Unknown Completed [facility] DTaP, Unspecified Formulation Unknown Completed [facility] DTaP, Unspecified Formulation Unknown Completed [facility] Influenza Virus Vaccine Quad .5 mL IM 6+ MO (FLUZONE/FLULAVAL/FL UARIX) Unknown Completed [facility] Flu Trivalent Unknown Completed [facility] Flu Trivalent Unknown Completed [facility] Flu Whole Virus Unknown Completed [facility] HEP B, Adult Dosage Unknown Completed [facility] Hep B, Adol or Pedi Dosage Unknown Completed [facility] HEPA,NOS Unknown Completed [facility] HEPATITIS A Unknown Completed [facility] HEPATITIS A Unknown Completed [facility] Hep B, Adol or Pedi Dosage Unknown Completed [facility] Hep B, Adol or Pedi Dosage Unknown Completed [facility] Hep B, Adol or Pedi Dosage Unknown Completed [facility] Hib-HbOC Unknown Completed [facility] HIB 3 Dose Schedule Unknown Completed [facility] HIB 4 Dose Schedule Unknown Completed [facility] HIB 4 Dose Schedule Unknown Completed [facility] HIB 4 Dose Schedule Unknown Completed [facility] HIB 4 Dose Schedule Unknown Completed [facility] HPV9 Unknown Completed [facility] Meningococcal Polysaccharide (groups A, C, Y and W-135) conjugate vaccine (MCV4P) Unknown Completed [facility] MMR Unknown Completed [facility] MMR Unknown Completed [facility] MMR Unknown Completed [facility] Proquad (MMR/VARICELLA) Unknown Completed [facility] Pneumococcal 13 Conjugate, PCV13 (Prevnar 13) Unknown Completed [facility] Pneumococcal 13 Conjugate, PCV13 (Prevnar 13) Unknown Completed [facility] Pneumococcal 13 Conjugate, PCV13 (Prevnar 13) Unknown Completed [facility] Pneumococcal 7 Conjugate, PCV7 (Prevnar7) Unknown Completed [facility] Pneumococcal Polysaccharide, PPSV23 (PNEUMOVAX) Unknown Completed [facility] IPV Unknown Completed [facility] IPV Unknown Completed [facility] IPV [facility] [facility] IPV Unknown Completed [facility] IPV Unknown Completed [facility] IPV Unknown Completed [facility] IPV Unknown Completed [facility] Varicella (varivax)(chicken pox) Unknown Completed [facility] Varicella (varivax)(chicken pox) Unknown Completed [facility] TDAP Unknown Completed [facility] HIB PRP-D,booster Unknown Completed [facility] Pneumococcal 13 Conjugate, PCV13 (Prevnar 13) Unknown Completed [facility] HIB 4 Dose Schedule Unknown Completed [facility] Hep B, Dtap, Polio Unknown Completed [facility] HEPATITIS A Unknown Completed [facility] Hep B, Adol or Pedi Dosage Unknown Completed [facility] Meningococcal Polysaccharide (groups A, C, Y and W-135) conjugate vaccine (MCV4P) Unknown Completed [facility] DTAP Unknown Completed [facility] Polio (IPV/OPV) Unknown Completed [facility] Pneumococcal 7 Conjugate, PCV7 (Prevnar7) Unknown Completed [facility] SARS-COV-2 COVID-19 PFIZER VACCINE Unknown Completed [facility] SARS-COV-2 COVID-19 PFIZER VACCINE Unknown Completed [facility] SARS-COV-2 COVID-19 PFIZER VACCINE Unknown Completed [facility] HEPATITIS A Unknown Completed [facility] Heamophilus Influenza B Unknown Completed [facility] DTAP Unknown Completed [facility] DTaP, Unspecified Formulation Unknown Completed [facility] DTaP, Unspecified Formulation Unknown Completed [facility] DTaP, Unspecified Formulation Unknown Completed [facility] DTaP, Unspecified Formulation Unknown Completed [facility] DTaP, Unspecified Formulation Unknown Completed [facility] DTaP, Unspecified Formulation Unknown Completed [facility] Influenza Virus Vaccine Quad .5 mL IM 6+ MO (FLUZONE/FLULAVAL/FL UARIX) Unknown Completed [facility] Flu Trivalent Unknown Completed [facility] Flu Trivalent Unknown Completed [facility] Flu Whole Virus Unknown Completed [facility] HEP B, Adult Dosage Unknown Completed [facility] Hep B, Adol or Pedi Dosage Unknown Completed [facility] HEPA,NOS Unknown Completed [facility] HEPATITIS A Unknown Completed [facility] HEPATITIS A Unknown Completed [facility] Hep B, Adol or Pedi Dosage Unknown Completed [facility] Hep B, Adol or Pedi Dosage Unknown Completed [facility] Hep B, Adol or Pedi Dosage Unknown Completed [facility] Hib-HbOC Unknown Completed [facility] HIB 3 Dose Schedule Unknown Completed [facility] HIB 4 Dose Schedule Unknown Completed [facility] HIB 4 Dose Schedule Unknown Completed [facility] HIB 4 Dose Schedule Unknown Completed [facility] HIB 4 Dose Schedule Unknown Completed [facility] HPV9 Unknown Completed [facility] Meningococcal Polysaccharide (groups A, C, Y and W-135) conjugate vaccine (MCV4P) Unknown Completed [facility] MMR Unknown Completed [facility] MMR Unknown Completed [facility] MMR Unknown Completed [facility] Proquad (MMR/VARICELLA) Unknown Completed [facility] Pneumococcal 13 Conjugate, PCV13 (Prevnar 13) Unknown Completed [facility] Pneumococcal 13 Conjugate, PCV13 (Prevnar 13) Unknown Completed [facility] Pneumococcal 13 Conjugate, PCV13 (Prevnar 13) Unknown Completed [facility] Pneumococcal 7 Conjugate, PCV7 (Prevnar7) Unknown Completed [facility] Pneumococcal Polysaccharide, PPSV23 (PNEUMOVAX) Unknown Completed [facility] IPV Unknown Completed [facility] IPV Unknown Completed [facility] IPV Unknown Completed [facility] IPV Unknown Completed [facility] IPV Unknown Completed [facility] IPV Unknown Completed [facility] IPV Unknown Completed [facility] Varicella (varivax)(chicken pox) Unknown Completed [facility] Varicella (varivax)(chicken pox) Unknown Completed [facility] TDAP Unknown Completed [facility] HIB PRP-D,booster [facility] Pneumococcal 13 Conjugate, PCV13 (Prevnar 13) Unknown Completed [facility] HIB 4 Dose Schedule Unknown Completed [facility] Hep B, Dtap, Polio [facility] Hep B, Adol or Pedi Dosage Unknown Completed [facility] Meningococcal Polysaccharide (groups A, C, Y and W-135) conjugate vaccine (MCV4P) Unknown Completed [facility] DTAP Unknown Completed [facility] Polio (IPV/OPV) [facility] Pneumococcal 7 Conjugate, PCV7 (Prevnar7) Unknown Completed [facility] SARS-COV-2 COVID-19 PFIZER VACCINE Unknown Completed [facility] SARS-COV-2 COVID-19 PFIZER VACCINE Unknown Completed [facility] SARS-COV-2 COVID-19 PFIZER VACCINE Unknown Completed [facility] HEPATITIS A Unknown Completed [facility] Heamophilus Influenza B Unknown Completed [facility] DTAP Unknown Completed [facility] DTaP, Unspecified Formulation Unknown Completed [facility] DTaP, Unspecified Formulation Unknown Completed [facility] DTaP, Unspecified Formulation Unknown Completed [facility] DTaP, Unspecified Formulation Unknown Completed [facility] DTaP, Unspecified Formulation Unknown Completed [facility] DTaP, Unspecified Formulation Unknown Completed [facility] Influenza Virus Vaccine Quad .5 mL IM 6+ MO (FLUZONE/FLULAVAL/FL UARIX) Unknown Completed [facility] Flu Trivalent Unknown Completed [facility] Flu Trivalent Unknown Completed [facility] Flu Whole Virus Unknown Completed [facility] HEP B, Adult Dosage Unknown Completed [facility] Hep B, Adol or Pedi Dosage Unknown Completed [facility] HEPA,NOS Unknown Completed [facility] HEPATITIS A Unknown Completed [facility] HEPATITIS A Unknown Completed [facility] Hep B, Adol or Pedi Dosage Unknown Completed [facility] Hep B, Adol or Pedi Dosage Unknown Completed [facility] Hep B, Adol or Pedi Dosage Unknown Completed [facility] Hib-HbOC Unknown Completed [facility] HIB 3 Dose Schedule Unknown Completed [facility] HIB 4 Dose Schedule Unknown Completed [facility] HIB 4 Dose Schedule Unknown Completed [facility] HIB 4 Dose Schedule Unknown Completed [facility] HIB 4 Dose Schedule Unknown Completed [facility] HPV9 Unknown Completed [facility] Meningococcal Polysaccharide (groups A, C, Y and W-135) conjugate vaccine (MCV4P) Unknown Completed [facility] MMR Unknown Completed [facility] MMR Unknown Completed [facility] MMR Unknown Completed [facility] Proquad (MMR/VARICELLA) Unknown Completed [facility] Pneumococcal 13 Conjugate, PCV13 (Prevnar 13) Unknown Completed [facility] Pneumococcal 13 Conjugate, PCV13 (Prevnar 13) Unknown Completed [facility] Pneumococcal 13 Conjugate, PCV13 (Prevnar 13) Unknown Completed [facility] Pneumococcal 7 Conjugate, PCV7 (Prevnar7) Unknown Completed [facility] Pneumococcal Polysaccharide, PPSV23 (PNEUMOVAX) Unknown Completed [facility] IPV Unknown Completed [facility] IPV Unknown Completed [facility] IPV Unknown Completed [facility] IPV Unknown Completed [facility] IPV Unknown Completed [facility] IPV Unknown Completed [facility] IPV Unknown Completed [facility] Varicella (varivax)(chicken pox) Unknown Completed [facility] Varicella (varivax)(chicken pox) Unknown Completed [facility] TDAP Unknown Completed [facility] HIB PRP-D,booster Unknown Completed [facility] Pneumococcal 13 Conjugate, PCV13 (Prevnar 13) Unknown Completed [facility] HIB 4 Dose Schedule Unknown Completed [facility] Hep B, Dtap, Polio Unknown Completed [facility] HEPATITIS A Unknown Completed [facility] Hep B, Adol or Pedi Dosage Unknown Completed [facility] Meningococcal Polysaccharide (groups A, C, Y and W-135) conjugate vaccine (MCV4P) Unknown Completed [facility] DTAP Unknown Completed [facility] Polio (IPV/OPV) Unknown Completed [facility] Pneumococcal 7 Conjugate, PCV7 (Prevnar7) Unknown Completed [facility] SARS-COV-2 COVID-19 PFIZER VACCINE Unknown Completed [facility] SARS-COV-2 COVID-19 PFIZER VACCINE Unknown Completed [facility] SARS-COV-2 COVID-19 PFIZER VACCINE Unknown Completed [facility] HEPATITIS A Unknown Completed [facility] Heamophilus Influenza B Unknown Completed [facility] DTAP Unknown Completed [facility] DTaP, Unspecified Formulation Unknown Completed [facility] DTaP, Unspecified Formulation Unknown Completed [facility] DTaP, Unspecified Formulation Unknown Completed [facility] DTaP, Unspecified Formulation Unknown Completed [facility] DTaP, Unspecified Formulation Unknown Completed [facility] DTaP, Unspecified Formulation Unknown Completed [facility] Influenza Virus Vaccine Quad .5 mL IM 6+ MO (FLUZONE/FLULAVAL/FL UARIX) Unknown Completed [facility] Flu Trivalent Unknown Completed [facility] Flu Trivalent Unknown Completed [facility] Flu Whole Virus Unknown Completed [facility] HEP B, Adult Dosage Unknown Completed [facility] Hep B, Adol or Pedi Dosage Unknown Completed [facility] HEPA,NOS Unknown Completed [facility] HEPATITIS A Unknown Completed [facility] HEPATITIS A Unknown Completed [facility] Hep B, Adol or Pedi Dosage Unknown Completed [facility] Hep B, Adol or Pedi Dosage Unknown Completed [facility] Hep B, Adol or Pedi Dosage Unknown Completed [facility] Hib-HbOC Unknown Completed [facility] HIB 3 Dose Schedule Unknown Completed [facility] HIB 4 Dose Schedule Unknown Completed [facility] HIB 4 Dose Schedule Unknown Completed [facility] HIB 4 Dose Schedule Unknown Completed [facility] HIB 4 Dose Schedule Unknown Completed [facility] HPV9 Unknown Completed [facility] Meningococcal Polysaccharide (groups A, C, Y and W-135) conjugate vaccine (MCV4P) Unknown Completed [facility] MMR Unknown Completed [facility] MMR Unknown Completed [facility] MMR Unknown Completed [facility] Proquad (MMR/VARICELLA) Unknown Completed [facility] Pneumococcal 13 Conjugate, PCV13 (Prevnar 13) Unknown Completed [facility] Pneumococcal 13 Conjugate, PCV13 (Prevnar 13) Unknown Completed [facility] Pneumococcal 13 Conjugate, PCV13 (Prevnar 13) Unknown Completed [facility] Pneumococcal 7 Conjugate, PCV7 (Prevnar7) Unknown Completed [facility] Pneumococcal Polysaccharide, PPSV23 (PNEUMOVAX) Unknown Completed [facility] IPV Unknown Completed [facility] IPV Unknown Completed [facility] IPV Unknown Completed [facility] IPV Unknown Completed [facility] IPV Unknown Completed [facility] IPV Unknown Completed [facility] IPV Unknown Completed [facility] Varicella (varivax)(chicken pox) Unknown Completed [facility] Varicella (varivax)(chicken pox) Unknown Completed [facility] TDAP Unknown Completed [facility] HIB PRP-D,booster [facility] Pneumococcal 13 Conjugate, PCV13 (Prevnar 13) Unknown Completed [facility] HIB 4 Dose Schedule Unknown Completed [facility] Hep B, Dtap, Polio Unknown [facility] Completed [facility] Hep B, Adol or Pedi Dosage Unknown Completed [facility] Meningococcal Polysaccharide (groups A, C, Y and W-135) conjugate vaccine (MCV4P) Unknown Completed [facility] DTAP Unknown Completed [facility] Polio (IPV/OPV) Unknown Completed [facility] Pneumococcal 7 Conjugate, PCV7 (Prevnar7) Unknown Completed [facility] SARS-COV-2 COVID-19 PFIZER VACCINE Unknown Completed [facility] SARS-COV-2 COVID-19 PFIZER VACCINE Unknown Completed [facility] SARS-COV-2 COVID-19 PFIZER VACCINE Unknown Completed [facility] HEPATITIS A Unknown Completed [facility] Heamophilus Influenza B Unknown Completed [facility] DTAP Unknown Completed [facility] DTaP, Unspecified Formulation Unknown Completed [facility] DTaP, Unspecified Formulation Unknown Completed [facility] DTaP, Unspecified Formulation Unknown Completed [facility] DTaP, Unspecified Formulation Unknown Completed [facility] DTaP, Unspecified Formulation Unknown Completed [facility] DTaP, Unspecified Formulation Unknown Completed [facility] Influenza Virus Vaccine Quad .5 mL IM 6+ MO (FLUZONE/FLULAVAL/FL UARIX) Unknown Completed [facility] Flu Trivalent Unknown Completed [facility] Flu Trivalent Unknown Completed [facility] Flu Whole Virus Unknown Completed [facility] HEP B, Adult Dosage Unknown Completed [facility] Hep B, Adol or Pedi Dosage Unknown Completed [facility] HEPA,NOS Unknown Completed [facility] HEPATITIS A Unknown Completed [facility] HEPATITIS A Unknown Completed [facility] Hep B, Adol or Pedi Dosage Unknown Completed [facility] Hep B, Adol or Pedi Dosage Unknown Completed [facility] Hep B, Adol or Pedi Dosage Unknown Completed [facility] Hib-HbOC Unknown Completed [facility] HIB 3 Dose Schedule Unknown Completed [facility] HIB 4 Dose Schedule Unknown Completed [facility] HIB 4 Dose Schedule Unknown Completed [facility] HIB 4 Dose Schedule Unknown Completed [facility] HIB 4 Dose Schedule Unknown Completed [facility] HPV9 Unknown Completed [facility] Meningococcal Polysaccharide (groups A, C, Y and W-135) conjugate vaccine (MCV4P) Unknown Completed [facility] MMR Unknown Completed [facility] MMR Unknown Completed [facility] MMR Unknown Completed [facility] Proquad (MMR/VARICELLA) Unknown Completed [facility] Pneumococcal 13 Conjugate, PCV13 (Prevnar 13) Unknown Completed [facility] Pneumococcal 13 Conjugate, PCV13 (Prevnar 13) Unknown Completed [facility] Pneumococcal 13 Conjugate, PCV13 (Prevnar 13) Unknown Completed [facility] Pneumococcal 7 Conjugate, PCV7 (Prevnar7) Unknown Completed [facility] Pneumococcal Polysaccharide, PPSV23 (PNEUMOVAX) Unknown Completed [facility] IPV Unknown Completed [facility] IPV Unknown Completed [facility] IPV Unknown Completed [facility] IPV Unknown Completed [facility] IPV Unknown Completed [facility] IPV Unknown Completed [facility] IPV Unknown Completed [facility] Varicella (varivax)(chicken pox) Unknown Completed [facility] Varicella (varivax)(chicken pox) Unknown Completed [facility] TDAP Unknown Completed [facility] HIB PRP-D,booster Unknown Completed [facility] Pneumococcal 13 Conjugate, PCV13 (Prevnar 13) Unknown Completed [facility] HIB 4 Dose Schedule Unknown Completed [facility] Hep B, Dtap, Polio Unknown [facility] Completed [facility] Hep B, Adol or Pedi Dosage Unknown Completed [facility] Meningococcal Polysaccharide (groups A, C, Y and W-135) conjugate vaccine (MCV4P) Unknown Completed [facility] DTAP Unknown Completed [facility] Polio (IPV/OPV) Unknown Completed [facility] Pneumococcal 7 Conjugate, PCV7 (Prevnar7) Unknown Completed [facility] SARS-COV-2 COVID-19 PFIZER VACCINE Unknown Completed [facility] SARS-COV-2 COVID-19 PFIZER VACCINE Unknown Completed [facility] SARS-COV-2 COVID-19 PFIZER VACCINE Unknown Completed [facility] HEPATITIS A Unknown Completed [facility] Heamophilus Influenza B Unknown Completed [facility] DTAP Unknown Completed [facility] DTaP, Unspecified Formulation Unknown Completed [facility] DTaP, Unspecified Formulation Unknown Completed [facility] DTaP, Unspecified Formulation Unknown Completed [facility] DTaP, Unspecified Formulation Unknown Completed [facility] DTaP, Unspecified Formulation Unknown Completed [facility] DTaP, Unspecified Formulation Unknown Completed [facility] Influenza Virus Vaccine Quad .5 mL IM 6+ MO (FLUZONE/FLULAVAL/FL UARIX) Unknown Completed [facility] Flu Trivalent Unknown Completed [facility] Flu Trivalent Unknown Completed [facility] Flu Whole Virus Unknown Completed [facility] HEP B, Adult Dosage Unknown Completed [facility] Hep B, Adol or Pedi Dosage Unknown Completed [facility] HEPA,NOS Unknown Completed [facility] HEPATITIS A Unknown Completed [facility] HEPATITIS A Unknown Completed [facility] Hep B, Adol or Pedi Dosage Unknown Completed [facility] Hep B, Adol or Pedi Dosage Unknown Completed [facility] Hep B, Adol or Pedi Dosage Unknown Completed [facility] Hib-HbOC Unknown Completed [facility] HIB 3 Dose Schedule Unknown Completed [facility] HIB 4 Dose Schedule Unknown Completed [facility] HIB 4 Dose Schedule Unknown Completed [facility] HIB 4 Dose Schedule Unknown Completed [facility] HIB 4 Dose Schedule Unknown Completed [facility] HPV9 Unknown Completed [facility] Meningococcal Polysaccharide (groups A, C, Y and W-135) conjugate vaccine (MCV4P) Unknown Completed [facility] MMR Unknown Completed [facility] MMR Unknown Completed [facility] MMR Unknown Completed [facility] Proquad (MMR/VARICELLA) Unknown Completed [facility] Pneumococcal 13 Conjugate, PCV13 (Prevnar 13) Unknown Completed [facility] Pneumococcal 13 Conjugate, PCV13 (Prevnar 13) Unknown Completed [facility] Pneumococcal 13 Conjugate, PCV13 (Prevnar 13) Unknown Completed [facility] Pneumococcal 7 Conjugate, PCV7 (Prevnar7) Unknown Completed [facility] Pneumococcal Polysaccharide, PPSV23 (PNEUMOVAX) Unknown Completed [facility] IPV Unknown Completed [facility] IPV Unknown Completed [facility] IPV Unknown Completed [facility] IPV Unknown Completed [facility] IPV Unknown Completed [facility] IPV Unknown Completed [facility] IPV Unknown Completed [facility] Varicella (varivax)(chicken pox) Unknown Completed [facility] Varicella (varivax)(chicken pox) Unknown Completed [facility] TDAP Unknown Completed [facility] HIB PRP-D,booster Unknown [facility] Pneumococcal 13 Conjugate, PCV13 (Prevnar 13) Unknown Completed [facility] HIB 4 Dose Schedule Unknown Completed [facility] Hep B, Dtap, Polio Unknown Completed [facility] HEPATITIS A Unknown Completed [facility] Hep B, Adol or Pedi Dosage Unknown Completed [facility] Meningococcal Polysaccharide (groups A, C, Y and W-135) conjugate vaccine (MCV4P) Unknown Completed [facility] DTAP Unknown Completed [facility] Polio (IPV/OPV) Unknown Completed [facility] Pneumococcal 7 Conjugate, PCV7 (Prevnar7) Unknown Completed [facility] SARS-COV-2 COVID-19 PFIZER VACCINE Unknown Completed [facility] SARS-COV-2 COVID-19 PFIZER VACCINE Unknown Completed [facility] SARS-COV-2 COVID-19 PFIZER VACCINE Unknown Completed [facility] HEPATITIS A Unknown Completed [facility] Heamophilus Influenza B Unknown Completed [facility] DTAP Unknown Completed [facility] DTaP, Unspecified Formulation Unknown Completed [facility] DTaP, Unspecified Formulation Unknown Completed [facility] DTaP, Unspecified Formulation Unknown Completed [facility] DTaP, Unspecified Formulation Unknown Completed [facility] DTaP, Unspecified Formulation Unknown Completed [facility] DTaP, Unspecified Formulation Unknown Completed [facility] Influenza Virus Vaccine Quad .5 mL IM 6+ MO (FLUZONE/FLULAVAL/FL UARIX) Unknown Completed [facility] Flu Trivalent Unknown Completed [facility] Flu Trivalent Unknown Completed [facility] Flu Whole Virus Unknown Completed [facility] HEP B, Adult Dosage Unknown Completed [facility] Hep B, Adol or Pedi Dosage Unknown Completed [facility] HEPA,NOS Unknown Completed [facility] HEPATITIS A Unknown Completed [facility] HEPATITIS A Unknown Completed [facility] Hep B, Adol or Pedi Dosage Unknown Completed [facility] Hep B, Adol or Pedi Dosage Unknown Completed [facility] Hep B, Adol or Pedi Dosage Unknown Completed [facility] Hib-HbOC Unknown Completed [facility] HIB 3 Dose Schedule Unknown Completed [facility] HIB 4 Dose Schedule Unknown Completed [facility] HIB 4 Dose Schedule Unknown Completed [facility] HIB 4 Dose Schedule Unknown Completed [facility] HIB 4 Dose Schedule Unknown Completed [facility] HPV9 Unknown Completed [facility] Meningococcal Polysaccharide (groups A, C, Y and W-135) conjugate vaccine (MCV4P) Unknown Completed [facility] MMR Unknown Completed [facility] MMR Unknown Completed [facility] MMR Unknown Completed [facility] Proquad (MMR/VARICELLA) Unknown Completed [facility] Pneumococcal 13 Conjugate, PCV13 (Prevnar 13) Unknown Completed [facility] Pneumococcal 13 Conjugate, PCV13 (Prevnar 13) Unknown Completed [facility] Pneumococcal 13 Conjugate, PCV13 (Prevnar 13) Unknown Completed [facility] Pneumococcal 7 Conjugate, PCV7 (Prevnar7) Unknown Completed [facility] Pneumococcal Polysaccharide, PPSV23 (PNEUMOVAX) Unknown Completed [facility] IPV Unknown Completed [facility] IPV Unknown Completed [facility] IPV Unknown Completed [facility] IPV Unknown Completed [facility] IPV Unknown Completed [facility] IPV Unknown Completed [facility] IPV Unknown Completed [facility] Varicella (varivax)(chicken pox) Unknown Completed [facility] Varicella (varivax)(chicken pox) Unknown Completed [facility] TDAP Unknown Completed [facility] HIB PRP-D,booster Unknown Completed [facility] Influenza Virus Vaccine Quad IM, Preserv and ABX Free 6 MO-64 YRS (FLUCELVAX) Unknown Completed [facility] Pneumococcal 13 Conjugate, PCV13 (Prevnar 13) Unknown Completed [facility] HIB 4 Dose Schedule Unknown Completed [facility] Hep B, Dtap, Polio Unknown Completed [facility] HEPATITIS A Unknown Completed [facility] Hep B, Adol or Pedi Dosage Unknown Completed [facility] Meningococcal Polysaccharide (groups A, C, Y and W-135) conjugate vaccine (MCV4P) Unknown Completed [facility] DTAP Unknown Completed [facility] Polio (IPV/OPV) Unknown Completed [facility] Pneumococcal 7 Conjugate, PCV7 (Prevnar7) Unknown Completed [facility] SARS-COV-2 COVID-19 PFIZER VACCINE Unknown Completed [facility] SARS-COV-2 COVID-19 PFIZER VACCINE Unknown Completed [facility] SARS-COV-2 COVID-19 PFIZER VACCINE Unknown Completed [facility] HEPATITIS A Unknown Completed [facility] Heamophilus Influenza B Unknown Completed [facility] DTAP Unknown Completed [facility] DTaP, Unspecified Formulation Unknown Completed [facility] DTaP, Unspecified Formulation Unknown Completed [facility] DTaP, Unspecified Formulation Unknown Completed [facility] DTaP, Unspecified Formulation Unknown Completed [facility] DTaP, Unspecified Formulation Unknown Completed [facility] DTaP, Unspecified Formulation Unknown Completed [facility] Influenza Virus Vaccine Quad .5 mL IM 6+ MO (FLUZONE/FLULAVAL/FL UARIX) Unknown Completed [facility] Flu Trivalent Unknown Completed [facility] Flu Trivalent Unknown Completed [facility] Flu Whole Virus Unknown Completed [facility] HEP B, Adult Dosage Unknown Completed [facility] Hep B, Adol or Pedi Dosage Unknown Completed [facility] HEPA,NOS Unknown Completed [facility] HEPATITIS A Unknown Completed [facility] HEPATITIS A Unknown Completed [facility] Hep B, Adol or Pedi Dosage Unknown Completed [facility] Hep B, Adol or Pedi Dosage Unknown Completed [facility] Hep B, Adol or Pedi Dosage Unknown Completed [facility] Hib-HbOC Unknown Completed [facility] HIB 3 Dose Schedule Unknown Completed [facility] HIB 4 Dose Schedule Unknown Completed [facility] HIB 4 Dose Schedule Unknown Completed [facility] HIB 4 Dose Schedule Unknown Completed [facility] HIB 4 Dose Schedule Unknown Completed [facility] HPV9 Unknown Completed [facility] Meningococcal Polysaccharide (groups A, C, Y and W-135) conjugate vaccine (MCV4P) Unknown Completed [facility] MMR Unknown Completed [facility] MMR Unknown Completed [facility] MMR Unknown Completed [facility] Proquad (MMR/VARICELLA) Unknown Completed [facility] Pneumococcal 13 Conjugate, PCV13 (Prevnar 13) Unknown Completed [facility] Pneumococcal 13 Conjugate, PCV13 (Prevnar 13) Unknown Completed [facility] Pneumococcal 13 Conjugate, PCV13 (Prevnar 13) Unknown Completed [facility] Pneumococcal 7 Conjugate, PCV7 (Prevnar7) Unknown Completed [facility] Pneumococcal Polysaccharide, PPSV23 (PNEUMOVAX) Unknown Completed [facility] IPV Unknown Completed [facility] IPV Unknown Completed [facility] IPV Unknown Completed [facility] IPV Unknown Completed [facility] IPV Unknown Completed [facility] IPV Unknown Completed [facility] IPV Unknown Completed [facility] Varicella (varivax)(chicken pox) Unknown Completed [facility] Varicella (varivax)(chicken pox) Unknown Completed [facility] TDAP Unknown Completed [facility] HIB PRP-D,booster [facility] Quad IM, Preserv and ABX Free 6 MO-64 YRS (FLUCELVAX) Unknown Completed [facility] Pneumococcal 13 Conjugate, PCV13 (Prevnar 13) Unknown Completed [facility] HIB 4 Dose Schedule Unknown Completed [facility] Hep B, Dtap, Polio Unknown Completed [facility] HEPATITIS A Unknown Completed [facility] Hep B, Adol or Pedi Dosage Unknown Completed [facility] Meningococcal Polysaccharide (groups A, C, Y and W-135) conjugate vaccine (MCV4P) Unknown Completed [facility] DTAP Unknown Completed [facility] Polio (IPV/OPV) Unknown Completed [facility] Pneumococcal 7 Conjugate, PCV7 (Prevnar7) Unknown Completed [facility] SARS-COV-2 COVID-19 PFIZER VACCINE Unknown Completed [facility] SARS-COV-2 COVID-19 PFIZER VACCINE Unknown Completed [facility] SARS-COV-2 COVID-19 PFIZER VACCINE Unknown Completed [facility] HEPATITIS A Unknown Completed [facility] Heamophilus Influenza B Unknown Completed [facility] DTAP Unknown Completed [facility] DTaP, Unspecified Formulation Unknown Completed [facility] DTaP, Unspecified Formulation Unknown Completed [facility] DTaP, Unspecified Formulation Unknown Completed [facility] DTaP, Unspecified Formulation Unknown Completed [facility] DTaP, Unspecified Formulation Unknown Completed [facility] DTaP, Unspecified Formulation Unknown Completed [facility] Influenza Virus Vaccine Quad .5 mL IM 6+ MO (FLUZONE/FLULAVAL/FL UARIX) Unknown Completed [facility] Flu Trivalent Unknown Completed [facility] Flu Trivalent Unknown Completed [facility] Flu Whole Virus Unknown Completed [facility] HEP B, Adult Dosage Unknown Completed [facility] Hep B, Adol or Pedi Dosage Unknown Completed [facility] HEPA,NOS Unknown Completed [facility] HEPATITIS A Unknown Completed [facility] HEPATITIS A Unknown Completed [facility] Hep B, Adol or Pedi Dosage Unknown Completed [facility] Hep B, Adol or Pedi Dosage Unknown Completed [facility] Hep B, Adol or Pedi Dosage Unknown Completed [facility] Hib-HbOC Unknown Completed [facility] HIB 3 Dose Schedule Unknown Completed [facility] HIB 4 Dose Schedule Unknown Completed [facility] HIB 4 Dose Schedule Unknown Completed [facility] HIB 4 Dose Schedule Unknown Completed [facility] HIB 4 Dose Schedule Unknown Completed [facility] HPV9 Unknown Completed [facility] Meningococcal Polysaccharide (groups A, C, Y and W-135) conjugate vaccine (MCV4P) Unknown Completed [facility] MMR Unknown Completed [facility] MMR Unknown Completed [facility] MMR Unknown Completed [facility] Proquad (MMR/VARICELLA) Unknown Completed [facility] Pneumococcal 13 Conjugate, PCV13 (Prevnar 13) Unknown Completed [facility] Pneumococcal 13 Conjugate, PCV13 (Prevnar 13) Unknown Completed [facility] Pneumococcal 13 Conjugate, PCV13 (Prevnar 13) Unknown Completed [facility] Pneumococcal 7 Conjugate, PCV7 (Prevnar7) Unknown Completed [facility] Pneumococcal Polysaccharide, PPSV23 (PNEUMOVAX) Unknown Completed [facility] IPV Unknown Completed [facility] IPV Unknown Completed [facility] IPV Unknown Completed [facility] IPV Unknown Completed [facility] IPV Unknown Completed [facility] IPV Unknown Completed [facility] IPV Unknown Completed [facility] Varicella (varivax)(chicken pox) Unknown Completed [facility] Varicella (varivax)(chicken pox) Unknown Completed [facility] TDAP Unknown Completed [facility] HIB PRP-D,booster Unknown Completed [facility] Influenza Virus Vaccine Quad IM, Preserv and ABX Free 6 MO-64 YRS (FLUCELVAX) Unknown Completed [facility] Pneumococcal 13 Conjugate, PCV13 (Prevnar 13) Unknown Completed [facility] HIB 4 Dose Schedule Unknown Completed [facility] Hep B, Dtap, Polio Unknown [facility] Completed [facility] Hep B, Adol or Pedi Dosage Unknown Completed [facility] Meningococcal Polysaccharide (groups A, C, Y and W-135) conjugate vaccine (MCV4P) Unknown Completed [facility] DTAP Unknown Completed [facility] Polio (IPV/OPV) Unknown Completed [facility] Pneumococcal 7 Conjugate, PCV7 (Prevnar7) Unknown Completed [facility] SARS-COV-2 COVID-19 PFIZER VACCINE Unknown Completed [facility] SARS-COV-2 COVID-19 PFIZER VACCINE Unknown Completed [facility] SARS-COV-2 COVID-19 PFIZER VACCINE Unknown Completed [facility] HEPATITIS A Unknown Completed [facility] Heamophilus Influenza B Unknown Completed [facility] DTAP Unknown Completed [facility] DTaP, Unspecified Formulation Unknown Completed [facility] DTaP, Unspecified Formulation Unknown Completed [facility] DTaP, Unspecified Formulation Unknown Completed [facility] DTaP, Unspecified Formulation Unknown Completed [facility] DTaP, Unspecified Formulation Unknown Completed [facility] DTaP, Unspecified Formulation Unknown Completed [facility] Influenza Virus Vaccine Quad .5 mL IM 6+ MO (FLUZONE/FLULAVAL/FL UARIX) Unknown Completed [facility] Flu Trivalent Unknown Completed [facility] Flu Trivalent Unknown Completed [facility] Flu Whole Virus Unknown Completed [facility] HEP B, Adult Dosage Unknown Completed [facility] Hep B, Adol or Pedi Dosage Unknown Completed [facility] HEPA,NOS Unknown Completed [facility] HEPATITIS A Unknown Completed [facility] HEPATITIS A Unknown Completed [facility] Hep B, Adol or Pedi Dosage Unknown Completed [facility] Hep B, Adol or Pedi Dosage Unknown Completed [facility] Hep B, Adol or Pedi Dosage Unknown Completed [facility] Hib-HbOC Unknown Completed [facility] HIB 3 Dose Schedule Unknown Completed [facility] HIB 4 Dose Schedule Unknown Completed [facility] HIB 4 Dose Schedule Unknown Completed [facility] HIB 4 Dose Schedule Unknown Completed [facility] HIB 4 Dose Schedule Unknown Completed [facility] HPV9 Unknown Completed [facility] Meningococcal Polysaccharide (groups A, C, Y and W-135) conjugate vaccine (MCV4P) Unknown Completed [facility] MMR Unknown Completed [facility] MMR Unknown Completed [facility] MMR Unknown Completed [facility] Proquad (MMR/VARICELLA) Unknown Completed [facility] Pneumococcal 13 Conjugate, PCV13 (Prevnar 13) Unknown Completed [facility] Pneumococcal 13 Conjugate, PCV13 (Prevnar 13) Unknown Completed [facility] Pneumococcal 13 Conjugate, PCV13 (Prevnar 13) Unknown Completed [facility] Pneumococcal 7 Conjugate, PCV7 (Prevnar7) Unknown Completed [facility] Pneumococcal Polysaccharide, PPSV23 (PNEUMOVAX) Unknown Completed [facility] IPV Unknown Completed [facility] IPV Unknown Completed [facility] IPV Unknown Completed [facility] IPV Unknown Completed [facility] IPV Unknown Completed [facility] IPV Unknown Completed [facility] IPV Unknown Completed [facility] Varicella (varivax)(chicken pox) Unknown Completed [facility] Varicella (varivax)(chicken pox) Unknown Completed [facility] TDAP Unknown Completed [facility] HIB PRP-D,booster Unknown Completed [facility] Influenza Virus Vaccine Quad IM, Preserv and ABX Free 6 MO-64 YRS (FLUCELVAX) Unknown Completed [facility] Pneumococcal 13 Conjugate, PCV13 (Prevnar 13) Unknown Completed [facility] HIB 4 Dose Schedule Unknown Completed [facility] Hep B, Dtap, Polio Unknown Completed [facility] HEPATITIS A Unknown Completed [facility] Hep B, Adol or Pedi Dosage Unknown Completed [facility] Meningococcal Polysaccharide (groups A, C, Y and W-135) conjugate vaccine (MCV4P) Unknown Completed [facility] DTAP Unknown Completed [facility] Polio (IPV/OPV) Unknown Completed [facility] Pneumococcal 7 Conjugate, PCV7 (Prevnar7) Unknown Completed [facility] SARS-COV-2 COVID-19 PFIZER VACCINE Unknown Completed [facility] SARS-COV-2 COVID-19 PFIZER VACCINE Unknown Completed [facility] SARS-COV-2 COVID-19 PFIZER VACCINE Unknown Completed [facility] HEPATITIS A Unknown Completed [facility] Heamophilus Influenza B Unknown Completed [facility] DTAP Unknown Completed [facility] DTaP, Unspecified Formulation Unknown Completed [facility] DTaP, Unspecified Formulation Unknown Completed [facility] DTaP, Unspecified Formulation Unknown Completed [facility] DTaP, Unspecified Formulation Unknown Completed [facility] DTaP, Unspecified Formulation Unknown Completed [facility] DTaP, Unspecified Formulation Unknown Completed [facility] Influenza Virus Vaccine Quad .5 mL IM 6+ MO (FLUZONE/FLULAVAL/FL UARIX) Unknown Completed [facility] Flu Trivalent Unknown Completed [facility] Flu Trivalent Unknown Completed [facility] Flu Whole Virus Unknown Completed [facility] HEP B, Adult Dosage Unknown Completed [facility] Hep B, Adol or Pedi Dosage Unknown Completed [facility] HEPA,NOS Unknown Completed [facility] HEPATITIS A Unknown Completed [facility] HEPATITIS A Unknown Completed [facility] Hep B, Adol or Pedi Dosage Unknown Completed [facility] Hep B, Adol or Pedi Dosage Unknown Completed [facility] Hep B, Adol or Pedi Dosage Unknown Completed [facility] Hib-HbOC Unknown Completed [facility] HIB 3 Dose Schedule Unknown Completed [facility] HIB 4 Dose Schedule Unknown Completed [facility] HIB 4 Dose Schedule Unknown Completed [facility] HIB 4 Dose Schedule Unknown Completed [facility] HIB 4 Dose Schedule Unknown Completed [facility] HPV9 Unknown Completed [facility] Meningococcal Polysaccharide (groups A, C, Y and W-135) conjugate vaccine (MCV4P) Unknown Completed [facility] MMR Unknown Completed [facility] MMR Unknown Completed [facility] MMR Unknown Completed [facility] Proquad (MMR/VARICELLA) Unknown Completed [facility] Pneumococcal 13 Conjugate, PCV13 (Prevnar 13) Unknown Completed [facility] Pneumococcal 13 Conjugate, PCV13 (Prevnar 13) Unknown Completed [facility] Pneumococcal 13 Conjugate, PCV13 (Prevnar 13) Unknown Completed [facility] Pneumococcal 7 Conjugate, PCV7 (Prevnar7) Unknown Completed [facility] Pneumococcal Polysaccharide, PPSV23 (PNEUMOVAX) Unknown Completed [facility] IPV Unknown Completed [facility] IPV Unknown Completed [facility] IPV Unknown Completed [facility] IPV Unknown Completed [facility] IPV Unknown Completed [facility] IPV Unknown Completed [facility] IPV Unknown Completed [facility] Varicella (varivax)(chicken pox) Unknown Completed [facility] Varicella (varivax)(chicken pox) Unknown Completed [facility] TDAP Unknown Completed [facility] HIB PRP-D,booster Unknown Completed [facility] Influenza Virus Vaccine Quad IM, Preserv and ABX Free 6 MO-64 YRS (FLUCELVAX) Unknown Completed [facility] Pneumococcal 13 Conjugate, PCV13 (Prevnar 13) Unknown Completed [facility] HIB 4 Dose Schedule Unknown Completed [facility] Hep B, Dtap, Polio Unknown Completed [facility] HEPATITIS A Unknown Completed [facility] Hep B, Adol or Pedi Dosage Unknown Completed [facility] Meningococcal Polysaccharide (groups A, C, Y and W-135) conjugate vaccine (MCV4P) Unknown Completed [facility] DTAP Unknown Completed [facility] Polio (IPV/OPV) Unknown Completed [facility] Pneumococcal 7 Conjugate, PCV7 (Prevnar7) Unknown Completed [facility] SARS-COV-2 COVID-19 PFIZER VACCINE Unknown Completed [facility] SARS-COV-2 COVID-19 PFIZER VACCINE Unknown Completed [facility] SARS-COV-2 COVID-19 PFIZER VACCINE Unknown Completed [facility] HEPATITIS A Unknown Completed [facility] Heamophilus Influenza B Unknown Completed [facility] DTAP Unknown Completed [facility] DTaP, Unspecified Formulation Unknown Completed [facility] DTaP, Unspecified Formulation Unknown Completed [facility] DTaP, Unspecified Formulation Unknown Completed [facility] DTaP, Unspecified Formulation Unknown Completed [facility] DTaP, Unspecified Formulation Unknown Completed [facility] DTaP, Unspecified Formulation Unknown Completed [facility] Influenza Virus Vaccine Quad .5 mL IM 6+ MO (FLUZONE/FLULAVAL/FL UARIX) Unknown Completed [facility] Flu Trivalent Unknown Completed [facility] Flu Trivalent Unknown Completed [facility] Flu Whole Virus Unknown Completed [facility] HEP B, Adult Dosage Unknown Completed [facility] Hep B, Adol or Pedi Dosage Unknown Completed [facility] HEPA,NOS Unknown Completed [facility] HEPATITIS A Unknown Completed [facility] HEPATITIS A Unknown Completed [facility] Hep B, Adol or Pedi Dosage Unknown Completed [facility] Hep B, Adol or Pedi Dosage Unknown Completed [facility] Hep B, Adol or Pedi Dosage Unknown Completed [facility] Hib-HbOC Unknown Completed [facility] HIB 3 Dose Schedule Unknown Completed [facility] HIB 4 Dose Schedule Unknown Completed [facility] HIB 4 Dose Schedule Unknown Completed [facility] HIB 4 Dose Schedule Unknown Completed [facility] HIB 4 Dose Schedule Unknown Completed [facility] HPV9 Unknown Completed [facility] Meningococcal Polysaccharide (groups A, C, Y and W-135) conjugate vaccine (MCV4P) Unknown Completed [facility] MMR Unknown Completed [facility] MMR Unknown Completed [facility] MMR Unknown Completed [facility] Proquad (MMR/VARICELLA) Unknown Completed [facility] Pneumococcal 13 Conjugate, PCV13 (Prevnar 13) Unknown Completed [facility] Pneumococcal 13 Conjugate, PCV13 (Prevnar 13) Unknown Completed [facility] Pneumococcal 13 Conjugate, PCV13 (Prevnar 13) Unknown Completed [facility] Pneumococcal 7 Conjugate, PCV7 (Prevnar7) Unknown Completed [facility] Pneumococcal Polysaccharide, PPSV23 (PNEUMOVAX) Unknown Completed [facility] IPV Unknown Completed [facility] IPV Unknown Completed [facility] IPV Unknown Completed [facility] IPV Unknown Completed [facility] IPV Unknown Completed [facility] IPV Unknown Completed [facility] IPV Unknown Completed [facility] Varicella (varivax)(chicken pox) Unknown Completed [facility] Varicella (varivax)(chicken pox) Unknown Completed [facility] TDAP Unknown Completed [facility] HIB PRP-D,booster [facility] Influ[facility] Vaccine Quad IM, Preserv and ABX Free 6 MO-64 YRS (FLUCELVAX) Unknown Completed [facility] Pneumococcal 13 Conjugate, PCV13 (Prevnar 13) Unknown Completed [facility] HIB 4 Dose Schedule Unknown Completed [facility] Hep B, Dtap, Polio Unknown [facility] HEPATITIS A [facility] Completed [facility] Hep B, Adol or Pedi Dosage Unknown Completed [facility] Meningococcal Polysaccharide (groups A, C, Y and W-135) conjugate vaccine (MCV4P) Unknown Completed [facility] DTAP Unknown Completed [facility] Polio (IPV/OPV) Unknown Completed [facility] Pneumococcal 7 Conjugate, PCV7 (Prevnar7) Unknown Completed [facility] SARS-COV-2 COVID-19 PFIZER VACCINE Unknown Completed [facility] SARS-COV-2 COVID-19 PFIZER VACCINE Unknown Completed [facility] SARS-COV-2 COVID-19 PFIZER VACCINE Unknown Completed [facility] HEPATITIS A Unknown Completed [facility] Heamophilus Influenza B Unknown Completed [facility] DTAP Unknown Completed [facility] DTaP, Unspecified Formulation Unknown Completed [facility] DTaP, Unspecified Formulation Unknown Completed [facility] DTaP, Unspecified Formulation Unknown Completed [facility] DTaP, Unspecified Formulation Unknown Completed [facility] DTaP, Unspecified Formulation Unknown Completed [facility] DTaP, Unspecified Formulation Unknown Completed [facility] Influenza Virus Vaccine Quad .5 mL IM 6+ MO (FLUZONE/FLULAVAL/FL UARIX) Unknown Completed [facility] Flu Trivalent Unknown Completed [facility] Flu Trivalent Unknown Completed [facility] Flu Whole Virus Unknown Completed [facility] HEP B, Adult Dosage Unknown Completed [facility] Hep B, Adol or Pedi Dosage Unknown Completed [facility] HEPA,NOS Unknown Completed [facility] HEPATITIS A Unknown Completed [facility] HEPATITIS A Unknown Completed [facility] Hep B, Adol or Pedi Dosage Unknown Completed [facility] Hep B, Adol or Pedi Dosage Unknown Completed [facility] Hep B, Adol or Pedi Dosage Unknown Completed [facility] Hib-HbOC Unknown Completed [facility] HIB 3 Dose Schedule Unknown Completed [facility] HIB 4 Dose Schedule Unknown Completed [facility] HIB 4 Dose Schedule Unknown Completed [facility] HIB 4 Dose Schedule Unknown Completed [facility] HIB 4 Dose Schedule Unknown Completed [facility] HPV9 Unknown Completed [facility] Meningococcal Polysaccharide (groups A, C, Y and W-135) conjugate vaccine (MCV4P) Unknown Completed [facility] MMR Unknown Completed [facility] MMR Unknown Completed [facility] MMR Unknown Completed [facility] Proquad (MMR/VARICELLA) Unknown Completed [facility] Pneumococcal 13 Conjugate, PCV13 (Prevnar 13) Unknown Completed [facility] Pneumococcal 13 Conjugate, PCV13 (Prevnar 13) Unknown Completed [facility] Pneumococcal 13 Conjugate, PCV13 (Prevnar 13) Unknown Completed [facility] Pneumococcal 7 Conjugate, PCV7 (Prevnar7) Unknown Completed [facility] Pneumococcal Polysaccharide, PPSV23 (PNEUMOVAX) Unknown Completed [facility] IPV Unknown Completed [facility] IPV Unknown Completed [facility] IPV Unknown Completed [facility] IPV Unknown Completed [facility] IPV Unknown Completed [facility] IPV Unknown Completed [facility] IPV Unknown Completed [facility] Varicella (varivax)(chicken pox) Unknown Completed [facility] Varicella (varivax)(chicken pox) Unknown Completed [facility] TDAP Unknown Completed [facility] HIB PRP-D,booster Unknown Completed [facility] Influenza Virus Vaccine Quad IM, Preserv and ABX Free 6 MO-64 YRS (FLUCELVAX) Unknown Completed [facility] Pneumococcal 13 Conjugate, PCV13 (Prevnar 13) Unknown Completed [facility] HIB 4 Dose Schedule Unknown Completed [facility] Hep B, Dtap, Polio Unknown [facility] Completed [facility] Hep B, Adol or Pedi Dosage Unknown Completed [facility] Meningococcal Polysaccharide (groups A, C, Y and W-135) conjugate vaccine (MCV4P) Unknown Completed [facility] DTAP Unknown Completed [facility] Polio (IPV/OPV) Unknown Completed [facility] Pneumococcal 7 Conjugate, PCV7 (Prevnar7) Unknown Completed [facility] SARS-COV-2 COVID-19 PFIZER VACCINE Unknown Completed [facility] SARS-COV-2 COVID-19 PFIZER VACCINE Unknown Completed [facility] SARS-COV-2 COVID-19 PFIZER VACCINE Unknown Completed [facility] HEPATITIS A Unknown Completed [facility] Heamophilus Influenza B Unknown Completed [facility] DTAP Unknown Completed [facility] DTaP, Unspecified Formulation Unknown Completed [facility] DTaP, Unspecified Formulation Unknown Completed [facility] DTaP, Unspecified Formulation Unknown Completed [facility] DTaP, Unspecified Formulation Unknown Completed [facility] DTaP, Unspecified Formulation Unknown Completed [facility] DTaP, Unspecified Formulation Unknown Completed [facility] Influenza Virus Vaccine Quad .5 mL IM 6+ MO (FLUZONE/FLULAVAL/FL UARIX) Unknown Completed [facility] Flu Trivalent Unknown Completed [facility] Flu Trivalent Unknown Completed [facility] Flu Whole Virus Unknown Completed [facility] HEP B, Adult Dosage Unknown Completed [facility] Hep B, Adol or Pedi Dosage Unknown Completed [facility] HEPA,NOS Unknown Completed [facility] HEPATITIS A Unknown Completed [facility] HEPATITIS A Unknown Completed [facility] Hep B, Adol or Pedi Dosage Unknown Completed [facility] Hep B, Adol or Pedi Dosage Unknown Completed [facility] Hep B, Adol or Pedi Dosage Unknown Completed [facility] Hib-HbOC Unknown Completed [facility] HIB 3 Dose Schedule Unknown Completed [facility] HIB 4 Dose Schedule Unknown Completed [facility] HIB 4 Dose Schedule Unknown Completed [facility] HIB 4 Dose Schedule Unknown Completed [facility] HIB 4 Dose Schedule Unknown Completed [facility] HPV9 Unknown Completed [facility] Meningococcal Polysaccharide (groups A, C, Y and W-135) conjugate vaccine (MCV4P) Unknown Completed [facility] MMR Unknown Completed [facility] MMR Unknown Completed [facility] MMR Unknown Completed [facility] Proquad (MMR/VARICELLA) Unknown Completed [facility] Pneumococcal 13 Conjugate, PCV13 (Prevnar 13) Unknown Completed [facility] Pneumococcal 13 Conjugate, PCV13 (Prevnar 13) Unknown Completed [facility] Pneumococcal 13 Conjugate, PCV13 (Prevnar 13) Unknown Completed [facility] Pneumococcal 7 Conjugate, PCV7 (Prevnar7) Unknown Completed [facility] Pneumococcal Polysaccharide, PPSV23 (PNEUMOVAX) Unknown Completed [facility] IPV Unknown Completed [facility] IPV Unknown Completed [facility] IPV Unknown Completed [facility] IPV Unknown Completed [facility] IPV Unknown Completed [facility] IPV Unknown Completed [facility] IPV Unknown Completed [facility] Varicella (varivax)(chicken pox) Unknown Completed [facility] Varicella (varivax)(chicken pox) Unknown Completed [facility] TDAP Unknown Completed [facility] HIB PRP-D,booster Unknown Completed [facility] Influenza Virus Vaccine Quad IM, Preserv and ABX Free 6 MO-64 YRS (FLUCELVAX) Unknown Completed [facility] Pneumococcal 13 Conjugate, PCV13 (Prevnar 13) Unknown Completed [facility] HIB 4 Dose Schedule Unknown Completed [facility] Hep B, Dtap, Polio Unknown Completed [facility] HEPATITIS A Unknown Completed [facility] Hep B, Adol or Pedi Dosage Unknown Completed [facility] Meningococcal Polysaccharide (groups A, C, Y and W-135) conjugate vaccine (MCV4P) Unknown Completed [facility] DTAP Unknown Completed [facility] Polio (IPV/OPV) Unknown Completed [facility] Pneumococcal 7 Conjugate, PCV7 (Prevnar7) Unknown Completed [facility] SARS-COV-2 COVID-19 PFIZER VACCINE Unknown Completed [facility] SARS-COV-2 COVID-19 PFIZER VACCINE Unknown Completed [facility] SARS-COV-2 COVID-19 PFIZER VACCINE Unknown Completed [facility] HEPATITIS A Unknown Completed [facility] Heamophilus Influenza B Unknown Completed [facility] DTAP Unknown Completed [facility] DTaP, Unspecified Formulation Unknown Completed [facility] DTaP, Unspecified Formulation Unknown Completed [facility] DTaP, Unspecified Formulation Unknown Completed [facility] DTaP, Unspecified Formulation Unknown Completed [facility] DTaP, Unspecified Formulation Unknown Completed [facility] DTaP, Unspecified Formulation Unknown Completed [facility] Influenza Virus Vaccine Quad .5 mL IM 6+ MO (FLUZONE/FLULAVAL/FL UARIX) Unknown Completed [facility] Flu Trivalent Unknown Completed [facility] Flu Trivalent Unknown Completed [facility] Flu Whole Virus Unknown Completed [facility] HEP B, Adult Dosage Unknown Completed [facility] Hep B, Adol or Pedi Dosage Unknown Completed [facility] HEPA,NOS Unknown Completed [facility] HEPATITIS A Unknown Completed [facility] HEPATITIS A Unknown Completed [facility] Hep B, Adol or Pedi Dosage Unknown Completed [facility] Hep B, Adol or Pedi Dosage Unknown Completed [facility] Hep B, Adol or Pedi Dosage Unknown Completed [facility] Hib-HbOC Unknown Completed [facility] HIB 3 Dose Schedule Unknown Completed [facility] HIB 4 Dose Schedule Unknown Completed [facility] HIB 4 Dose Schedule Unknown Completed [facility] HIB 4 Dose Schedule Unknown Completed [facility] HIB 4 Dose Schedule Unknown Completed [facility] HPV9 Unknown Completed [facility] Meningococcal Polysaccharide (groups A, C, Y and W-135) conjugate vaccine (MCV4P) Unknown Completed [facility] MMR Unknown Completed [facility] MMR Unknown Completed [facility] MMR Unknown Completed [facility] Proquad (MMR/VARICELLA) Unknown Completed [facility] Pneumococcal 13 Conjugate, PCV13 (Prevnar 13) Unknown Completed [facility] Pneumococcal 13 Conjugate, PCV13 (Prevnar 13) Unknown Completed [facility] Pneumococcal 13 Conjugate, PCV13 (Prevnar 13) Unknown Completed [facility] Pneumococcal 7 Conjugate, PCV7 (Prevnar7) Unknown Completed [facility] Pneumococcal Polysaccharide, PPSV23 (PNEUMOVAX) Unknown Completed [facility] IPV Unknown Completed [facility] IPV Unknown Completed [facility] IPV Unknown Completed [facility] IPV Unknown Completed [facility] IPV Unknown Completed [facility] IPV Unknown Completed [facility] IPV Unknown Completed [facility] Varicella (varivax)(chicken pox) Unknown Completed [facility] Varicella (varivax)(chicken pox) Unknown Completed [facility] TDAP Unknown Completed [facility] HIB PRP-D,booster Unknown [facility] Influenza Virus Vaccine Quad IM, Preserv and ABX Free 6 MO-64 YRS (FLUCELVAX) Unknown Completed [facility] Vital Signs Vital Name Observation Time Observation Value Comments S ource Systolic blood pressure 2023-07-31 15:38:00 132 mm[Hg] [facility] Diastolic blood pressure 2023-07-31 15:38:00 87 mm[Hg] [facility] Heart rate 2023-07-31 15:38:00 98 /min [facility] Respiratory rate 2023-07-31 15:38:00 18 /min [facility] Body height 2023-07-31 15:38:00 165.1 cm [facility] Body weight 2023-07-31 15:38:00 67.994 kg [facility] BMI 2023-07-31 15:38:00 24.94 kg/m2 [facility] Oxygen saturation in Arterial blood by Pulse oximetry 2023-07-31 15:38:00 100 /min [facility] Systolic blood pressure 2023-07-18 16:26:00 138 mm[Hg] [facility] Diastolic blood pressure 2023-07-18 16:26:00 94 mm[Hg] [facility] Heart rate 2023-07-18 16:20:00 108 /min [facility] Body height 2023-07-18 16:20:00 165.1 cm [facility] Body weight 2023-07-18 16:20:00 69.536 kg [facility] BMI 2023-07-18 16:20:00 25.51 kg/m2 [facility] Oxygen saturation in Arterial blood by Pulse oximetry 2023-07-18 16:20:00 99 /min [facility] Systolic blood pressure 2023-07-10 18:39:00 133 mm[Hg] [facility] Diastolic blood pressure 2023-07-10 18:39:00 86 mm[Hg] [facility] Heart rate 2023-07-10 18:39:00 104 /min [facility] Body height 2023-07-10 18:39:00 165.1 cm [facility] Body weight 2023-07-10 18:39:00 69.128 kg [facility] BMI 2023-07-10 18:39:00 25.36 kg/m2 [facility] Oxygen saturation in Arterial blood by Pulse oximetry 2023-07-10 18:39:00 97 /min [facility] Systolic blood pressure 2023-05-26 14:58:00 129 mm[Hg] [facility] Diastolic blood pressure 2023-05-26 14:58:00 86 mm[Hg] [facility] Heart rate 2023-05-26 14:58:00 94 /min [facility] Body height 2023-05-26 14:58:00 165.1 cm [facility] Body weight 2023-05-26 14:58:00 69.4 kg [facility] BMI 2023-05-26 14:58:00 25.46 kg/m2 [facility] Oxygen saturation in Arterial blood by Pulse oximetry 2023-05-26 14:58:00 98 /min [facility] Systolic blood pressure 2023-04-21 21:27:00 144 mm[Hg] [facility] Diastolic blood pressure 2023-04-21 21:27:00 96 mm[Hg] [facility] Heart rate 2023-04-21 21:27:00 103 /min [facility] Body height 2023-04-21 21:27:00 165.1 cm [facility] Body weight 2023-04-21 21:27:00 70.398 kg Univ [facility] BMI 2023-04-21 21:27:00 25.83 [facility] 2023-04-13 19:32:00 115 mm[Hg] [facility] Diastolic blood pressure 2023-04-13 19:32:00 74 mm[Hg] [facility] Heart rate 2023-04-13 19:32:00 79 /min [facility] Body height 2023-04-13 19:32:00 165.1 cm [facility] Body weight 2023-04-13 19:32:00 70.308 kg [facility] BMI 2023-04-13 19:32:00 25.79 kg/m2 [facility] O[facility] saturation in Arterial blood by Pulse oximetry 2023-04-13 19:32:00 98 /min [facility] Systolic blood pressure 2023-03-31 19:23:00 110 mm[Hg] [facility] Diastolic blood pressure 2023-03-31 19:23:00 75 mm[Hg] [facility] Heart rate 2023-03-31 19:23:00 99 /min [facility] Body height 2023-03-31 19:23:00 165.1 cm [facility] Body weight 2023-03-31 19:23:00 70.398 kg [facility] BMI 2023-03-31 19:23:00 25.83 kg/m2 [facility] Oxygen saturation in Arterial blood by Pulse oximetry 2023-03-31 19:23:00 97 /min [facility] Systolic blood pressure 2023-03-24 14:42:00 129 mm[Hg] [facility] Diastolic blood pressure 2023-03-24 14:42:00 87 mm[Hg] [facility] Heart rate 2023-03-24 14:42:00 90 /min [facility] Body temperature 2023-03-24 14:42:00 36.72 [facility] Respiratory rate 2023-03-24 14:42:00 18 /min [facility] Body height 2023-03-24 14:42:00 165.1 cm [facility] Body weight 2023-03-24 14:42:00 68.629 kg [facility] BMI 2023-03-24 14:42:00 25.18 kg/m2 [facility] Oxygen saturation in Arterial blood by Pulse oximetry 2023-03-24 14:42:00 99 /min [facility] Systolic blood pressure 2022-10-07 20:47:00 124 mm[Hg] [facility] Diastolic blood pressure 2022-10-07 20:47:00 86 mm[Hg] [facility] Heart rate 2022-10-07 20:47:00 101 /min [facility] Body height 2022-10-07 20:47:00 165.1 cm [facility] Body weight 2022-10-07 20:47:00 69.264 kg [facility] BMI 2022-10-07 20:47:00 25.41 kg/m2 [facility] O[facility] saturation in Arterial blood by Pulse oximetry 2022-10-07 20:47:00 94 /min [facility] Systolic blood pressure 2022-08-05 19:18:00 128 mm[Hg] [facility] Diastolic blood pressure 2022-08-05 19:18:00 81 mm[Hg] [facility] Heart rate 2022-08-05 19:18:00 110 /min [facility] Respiratory rate 2022-08-05 19:18:00 23 /min [facility] Body height 2022-08-05 19:18:00 165.1 cm [facility] Body weight 2022-08-05 19:18:00 70.308 kg [facility] BMI 2022-08-05 19:18:00 25.79 kg/m2 [facility] Oxygen saturation in Arterial blood by Pulse oximetry 2022-08-05 19:18:00 97 /min [facility] Systolic blood pressure 2022-08-04 18:34:00 125 mm[Hg] [facility] Diastolic blood pressure 2022-08-04 18:34:00 84 mm[Hg] [facility] Heart rate 2022-08-04 18:34:00 96 /min [facility] Body height 2022-08-04 18:34:00 165.1 cm [facility] Body weight 2022-08-04 18:34:00 70.625 kg [facility] BMI 2022-08-04 18:34:00 25.91 kg/m2 [facility] Oxygen saturation in Arterial blood by Pulse oximetry 2022-08-04 18:34:00 97 /min [facility] Systolic blood pressure 2022-07-05 16:31:00 128 mm[Hg] [facility] Diastolic blood pressure 2022-07-05 16:31:00 86 mm[Hg] [facility] Heart rate 2022-07-05 16:31:00 93 /min [facility] Body height 2022-07-05 16:31:00 165.1 cm [facility] Body weight 2022-07-05 16:31:00 67.722 kg [facility] BMI 2022-07-05 16:31:00 24.84 kg/m2 [facility] Oxygen saturation in Arterial blood by Pulse oximetry 2022-07-05 16:31:00 99 /min [facility] Procedures Procedure Date / Time Performed Performing Clinician Source CBC WITH DIFF 2023-07-31 16:31:00 Emre Gan [facility] FLU VACC ([id number]), 6 MO-64 YRS, .5ML, IM, QUAD (FLUCELVAX) 2023-07-31 16:29:55 Emre Gan [facility] MEDICAL RELEASE/CLEARANCE FORMS 2023-07-18 05:01:00 Doctor Unassigned, [place] [facility] CBC WITH DIFF 2023-07-10 19:47:00 Emre Gan [facility] COMP. METABOLIC PANEL ([id number]) 2023-07-10 19:47:00 Emre Gan [facility] POCT HEMOGLOBIN A1C TEST 2023-07-10 00:00:00 Benjamín Gan [facility] TDAP VACCINE, >11 YRS, IM 2023-05-26 15:11:45 Braeden Gan [facility] POCT HEMOGLOBIN A1C TEST 2023-05-26 00:00:00 Benjamín Gan [facility] MEDICAL RELEASE/CLEARANCE FORMS 2023-03-31 05:01:00 Doctor Unassigned, [place] [facility] ASSIGNMENT OF BENEFITS 2022-10-07 20:44:49 Dockaroline r Unassigned, [place] [facility] INSURANCE CORRESPONDENCE 2022-08-16 06:01:00 Doc tor Unassigned, [place] [facility] POCT HEMOGLOBIN A1C TEST 2022-08-04 20:25:00 Benjamín Gan [facility] Encounters Start Date/Time End Date/Time Encounter Type Admission Type Attending Clinicians Care Facility Care Department Encounter ID Source 2024-02-16 16:30:00 2024-02-16 16:30:38 Outpatient R MELLY BARBER [facility] [id number] [facility] 2024-02-16 16:30:00 2024-02-16 16:30:38 Office Visit Melly Barber [facility] [id number] 350.1.13.10 4.2.7.2.686 [id number] [facility] 2024-01-31 00:00:00 2024-01-31 00:00:00 Telephone Emre Gan [facility] [id number] 350.1.13.10 4.2.7.2.686 [id number] [facility] 2023-11-21 13:00:00 2023-11-21 13:00:00 Outpatient R ANN CHIRINOS [facility] [id number] [facility] 2023-09-22 00:00:00 2023-09-22 00:00:00 Refill Melly Barber [facility] [id number] 350.1.13.10 4.2.7.2.686 [id number] [facility] 2023-08-10 13:30:00 2023-08-10 13:30:00 Outpatient R EMRE GAN [facility] [id number] [facility] 2023-08-02 00:00:00 2023-08-02 00:00:00 Patient Secure Msg [facility] Unassigned[facility] [place] [facility] 1.84.114 350.1.13.10 4.2.7.2.686 [id number] [facility] 2023-07-31 11:45:00 2023-07-31 12:00:00 Wic Site Coordinator Visit Lab, [place] [facility] 1.84.114 350.1.13.10 4.2.7.2.686 [id number] [facility] 2023-07-31 11:00:00 2023-07-31 11:26:15 Outpatient R EMRE GAN [facility] [id number] [facility] 2023-07-31 11:00:00 2023-07-31 11:26:15 [facility] 1.84.114 350.1.13.10 4.2.7.2.686 [id number] [facility] 2023-07-25 00:00:00 2023-07-25 00:00:00 Patient Secure Msg [facility] 1.84.114 350.1.13.10 4.2.7.2.686 [id number] [facility] 2023-07-25 00:00:00 2023-07-25 00:00:00 [facility]phone [facility] 1..114 350.1.13.10 4.2.7.2.686 [id number] [facility] 2023-07-19 09:15:00 2023-07-19 09:15:00 Outpatient R [facility] [id number] [facility] 2023-07-18 11:30:00 2023-07-18 12:10:40 Outpatient R ANN CHIRINOS [facility] [id number] [facility] 2023-07-18 11:30:00 2023-07-18 12:10:40 Office Visit Juan Luis [facility] 1.2.840.114 350.1.13.10 4.2.7.2.686 [id number] [facility] 2023-07-18 00:00:00 2023-07-18 00:00:00 Letter (Out) [facility] 1.2.840.114 350.1.13.10 4.2.7.2.686 [id number] [facility] 2023-07-18 00:00:00 2023-07-18 00:00:00 Refill Juan Luis [facility] 1.2.840.114 350.1.13.10 4.2.7.2.686 [id number] [facility] 2023-07-18 00:00:00 2023-07-18 00:00:00 Orders Only Doctor Unassigned, [place] [facility] 1.2840.114 350.1.13.10 4.2.7.2.686 [id number] [facility] 2023-07-17 00:00:00 2023-07-17 00:00:00 Telephone Emre Gan [facility] 1.2.840.114 350.1.13.10 4.2.7.2.686 [id number] [facility] 2023-07-16 15:30:00 2023-07-16 15:30:00 Outpatient R EMRE GAN [facility] [id number] [facility] 2023-07-11 00:00:00 2023-07-11 00:00:00 [facility] 1..840.114 350.1.13.10 4.2.7.2.686 [id number] [facility] 2023-07-11 00:00:00 2023-07-11 00:00:00 [facility] 1..840.114 350.1.13.10 4.2.7.2.686 [id number] [facility] 2023-07-10 17:00:00 2023-07-10 17:15:00 Wic Site Coordinator Visit Lab, [facility] 1..840.114 350.1.13.10 4.2.7.2.686 [id number] [facility] 2023-07-10 13:30:00 2023-07-10 14:37:44 Outpatient R EMRE GAN [facility] [id number] [facility] 2023-07-10 13:30:00 2023-07-10 14:37:44 [facility] 1.2.840.114 350.1.13.10 4.2.7.2.686 [id number] [facility] 2023-05-26 09:30:00 2023-05-26 10:29:53 Outpatient R EMRE GAN [facility] [id number] [facility] 2023-05-26 09:30:00 2023-05-26 10:29:53 [facility] 1..840.114 350.1.13.10 4.2.7.2.686 [id number] [facility] 2023-04-27 14:30:00 2023-04-27 14:30:00 Outpatient R EMRE GAN [facility] [id number] [facility] 2023-04-21 16:30:00 2023-04-21 17:06:39 Outpatient R [facility] CRUZ [facility] [place] [id number] [facility] 2023-04-21 16:30:00 2023-04-21 17:06:39 Office Visit Cruz, Richard [facility] 1..840.114 350.1.13.10 4.2.7.2.686 [id number] [facility] 2023-04-21 00:00:00 2023-04-21 00:00:00 Letter (Out) CruzRicahrd colon [facility] 1..840.114 350.1.13.10 4.2.7.2.686 [id number] [facility] 2023-04-13 14:30:00 2023-04-13 15:12:55 Outpatient R EMRE GAN [facility] [id number] [facility] 2023-04-13 14:30:00 2023-04-13 15:12:55 [facility] 1..840.114 350.1.13.10 4.2.7.2.686 [id number] 044 [id number] [facility] 2023-04-13 00:00:00 2023-04-13 00:00:00 Letter (Out) [facility] 1.840.114 350.1.13.10 4.2.7.2.686 [id number] 044 [id number] [facility] 2023-04-03 00:00:00 2023-04-03 00:00:00 Patient Secure Msg Doctor Unassigned, [place] [facility] 1.840.114 350.1.13.10 4.2.7.2.686 [id number] 044 [id number] [facility] 2023-03-31 15:15:00 2023-03-31 15:34:55 Wic Site Coordinator Visit Lab, Jackson Cardona [facility] 1.84.114 350.1.13.10 4.2.7.2.686 [id number] [facility] 2023-03-31 14:00:00 2023-03-31 15:08:45 Outpatient R EMRE GAN [facility] [id number] [facility] 2023-03-31 14:00:00 2023-03-31 15:08:45 Office [facility] 1.840.114 350.1.13.10 4.2.7.2.686 [id number] 044 [id number] [facility] 2023-03-31 00:00:00 2023-03-31 00:00:00 Letter (Out) Kirsten [facility]At[facility] 1.840.114 350.1.13.10 4.2.7.2.686 [id number] 044 [id number] [facility] 2023-03-31 00:00:00 2023-03-31 00:00:00 Orders Only Doctor Unassigned, [place] [facility] 1.2114 350.1.13.10 4.2.7.2.686 [id number] [facility] 2023-03-29 13:00:00 2023-03-29 13:00:00 Outpatient R MELLY BARBER [facility] [id number] [facility] 2023-03-24 09:30:00 2023-03-24 10:00:00 Office Visit Melly Barber Rowena [facility] 1.284114 350.1.13.10 4.2.7.2.686 [id number] [id number] [facility] 2023-03-24 09:30:00 2023-03-24 09:30:00 Outpatient R MELLY BARBER [facility] [id number] [facility] 2023-03-24 00:00:00 2023-03-24 00:00:00 Letter (Out) Melly Barber Rowena [facility] REESEE?[facility] 1.284114 350.1.13.10 4.2.7.2.686 [id number] 044 [id number] [facility] 2023-03-24 00:00:00 2023-03-24 00:00:00 Letter (Out) Melly Barber Rowena [facility] RE[facility]EE?[facility] 1.284.114 350.1.13.10 4.2.7.2.686 [id number] 044 [id number] [facility] 2023-03-21 00:00:00 2023-03-21 00:00:00 Telephone [facility]re [facility] 1.84114 350.1.13.10 4.2.7.2.686 [id number] 044 [id number] [facility] 2023-03-17 15:30:00 2023-03-17 15:30:00 Outpatient R NANCY RICHARD [facility] [id number] [facility] 2023-02-26 00:00:00 2023-02-26 00:00:00 Refill [facility] 1.2840.114 350.1.13.10 4.2.7.2.686 [id number] [id number] [facility] 2023-02-21 00:00:00 2023-02-21 00:00:00 Telephone CruzRichard [facility] P[facility] 1.2840.114 350.1.13.10 4.2.7.2.686 [id number] [facility] 2023-01-19 00:00:00 2023-01-19 00:00:00 Telephone [facility] 1.2840.114 350.1.13.10 4.2.7.2.686 [id number] [id number] [facility] 2023-01-09 00:00:00 2023-01-09 00:00:00 Refill [facility] 1.2840.114 350.1.13.10 4.2.7.2.686 [id number] 044 [id number] [facility] 2022-10-18 00:00:00 2022-10-18 00:00:00 Refill [facility] 1.2840.114 350.1.13.10 4.2.7.2.686 [id number] [id number] [facility] 2022-10-07 15:00:00 2022-10-07 15:46:19 Outpatient R NANCY RICHARD [facility] [id number] [facility] 2022-10-07 15:00:00 2022-10-07 15:46:19 Office Visit Richard Cruz [facility] 1.2.840.114 350.1.13.10 4.2.7.2.686 [id number] [facility] 2022-10-07 00:00:00 2022-10-07 00:00:00 Orders Only Doctor Unassigned, [place] [facility] 1.840.114 350.1.13.10 4.2.7.2.686 [id number] [facility] 2022-09-15 00:00:00 2022-09-15 00:00:00 Telephone Emre Gan [facility] 1..840.114 350.1.13.10 4.2.7.2.686 [id number] 044 [id number] [facility] 2022-08-25 15:48:17 2022-08-25 23:59:00 Outpatient [facility]YBETSY [facility] [id number] [facility] 2022-08-25 00:00:00 2022-08-25 00:00:00 Patient Secure Msdebi [facility] 1..840.114 350.1.13.10 4.2.7.2.686 [id number] [facility] 2022-08-16 00:00:00 2022-08-16 00:00:00 Orders Only Doctor Unassigned, [place] [facility] 1.2.840.114 350.1.13.10 4.2.7.2.686 [id number] [facility] 2022-08-05 14:00:00 2022-08-05 14:39:02 Outpatient R ROSEANNE LEVINE [facility] [id number] [facility] 2022-08-05 14:00:00 2022-08-05 14:39:02 Office Visit Roseanne Levine [facility] [place] [facility] N[facility] 1.2.840.114 350.1.13.10 4.2.7.2.686 [id number] [facility] 2022-08-04 13:30:00 2022-08-04 14:59:51 Outpatient R FRANKLINEMRE ARMENTA [facility] [id number] [facility] 2022-08-04 13:30:00 2022-08-04 14:59:51 Office Visit Elvia [facility] 1.2.840.114 350.1.13.10 4.2.7.2.686 [id number] 044 [id number] [facility] 2022-07-19 00:00:00 2022-07-19 00:00:00 Refill Luis Miguel Estrada [facility] 1.2.840.114 350.1.13.10 4.2.7.2.686 [id number] 044 [id number] [facility] 2022-07-05 11:30:00 2022-07-05 11:46:02 Outpatient R ELVIAEMRE [facility] [id number] [facility] 2022-07-05 11:30:00 2022-07-05 11:46:02 Office Visit Elvia [facility] 1.2.840.114 350.1.13.10 4.2.7.2.686 [id number] 044 [id number] [facility] 2022-07-05 00:00:00 2022-07-05 00:00:00 Telephone Elvia [facility] 1.2840.114 350.1.13.10 4.2.7.2.686 [id number] 044 [id number] [facility] 2022-07-02 00:00:00 2022-07-02 00:00:00 Patient Secure Msg Doctor Unassigned, [place] [facility] 1.2840.114 350.1.13.10 4.2.7.2.686 [id number] [facility] 2022-06-28 00:00:00 2022-06-28 00:00:00 Telephone Emre Gan [facility] P[facility]IO [facility] 1.2840.114 350.1.13.10 4.2.7.2.686 [id number] 044 [id number] [facility] 2022-06-22 00:00:00 2022-06-22 00:00:00 Telephone [facility] 1.2840.114 350.1.13.10 4.2.7.2.686 [id number] 044 [id number] [facility] 2022-06-21 00:00:00 2022-06-21 00:00:00 Case Management Bebeto Arce [facility] 1.2840.114 350.1.13.10 4.2.7.2.686 [id number] [facility] 2022-06-21 00:00:00 2022-06-21 00:00:00 Case Management EbBebeto chang [facility] 1.2840.114 350.1.13.10 4.2.7.2.686 [id number] [facility] 2022-06-21 00:00:00 2022-06-21 00:00:00 Case Management Ebrahim, Rania [facility] P[facility] 1.2.840.114 350.1.13.10 4.2.7.2.686 [id number] [facility] 2022-06-20 12:00:00 2022-06-20 12:14:16 Wic Site Coordinator Visit Lab, Kirsten GarciaAt[facility] Health [facility] CenterROSEANNE SHELDON?[facility] 1.284.114 350.1.13.10 4.2.7.2.686 [id number] [facility] 2022-06-20 12:00:00 2022-06-20 12:14:16 Wic Site Coordinator Visit Lab, Kirsten [facility] 1..840.114 350.1.13.10 4.2.7.2.686 [id number] 353 [id number] [facility] 2022-06-20 12:00:00 2022-06-20 12:14:16 Wic Site Coordinator Visit Lab, Jackson Gan [facility] P[facility]O?[facility] 1.2.840.114 350.1.13.10 4.2.7.2.686 [id number] [facility] 2022-06-20 11:30:00 2022-06-20 11:47:22 Outpatient R EMRE GAN [facility] [id number] [facility] 2022-06-20 11:30:00 2022-06-20 11:47:22 Office Visit [facility] 1.2.840.114 350.1.13.10 4.2.7.2.686 [id number] [facility] 2022-06-20 11:30:00 2022-06-20 11:47:22 Outpatient R EMRE GAN [facility] [id number] [facility] 2022-06-20 11:30:00 2022-06-20 11:47:22 Office Visit [facility] 1.2.840.114 350.1.13.10 4.2.7.2.686 [id number] 044 [id number] [facility] 2022-06-20 11:30:00 2022-06-20 11:47:22 Outpatient R EMRE GAN [facility] [id number] [facility] 2022-06-20 00:00:00 2022-06-20 00:00:00 Letter (Out) Emre Gan [facility] 1.2.840.114 350.1.13.10 4.2.7.2.686 [id number] 044 [id number] [facility] 2022-06-20 00:00:00 2022-06-20 00:00:00 Telephone Emre Gan [facility] 1.2.840.114 350.1.13.10 4.2.7.2.686 [id number] 044 [id number] [facility] 2022-06-20 00:00:00 2022-06-20 00:00:00 Telephone Kirsten Ganthia [facility] 1.2.840.114 350.1.13.10 4.2.7.2.686 [id number] 044 [id number] [facility] 2022-05-28 12:00:00 2022-05-28 12:00:00 Urgent Care Kateryna Verduzco [facility] 1.2.840.114 350.1.13.10 4.2.7.2.686 [id number] [facility] 2022-05-28 12:00:00 2022-05-28 12:00:00 Urgent Care Dax [facility] PITO?[facility] 1.2.840.114 350.1.13.10 4.2.7.2.686 [id number] [facility] 2022-05-28 12:00:00 2022-05-28 11:55:15 Outpatient R DAX [facility] [id number] [facility] 2022-05-20 20:40:00 2022-05-20 20:40:00 [place] [id number] [facility] 2022-05-12 00:00:00 2022-05-12 00:00:00 Refjose KabaKirsten armentaNovant [facility] 1.2.840.114 350.1.13.10 4.2.7.2.686 [id number] 044 [id number] [facility] 2022-04-29 12:00:00 2022-04-29 12:20:00 Urgent Care [facility]azmin [facility] 1.2.840.114 350.1.13.10 4.2.7.2.686 [id number] [facility] 2022-04-29 12:00:00 2022-04-29 12:00:00 Outpatient R SAEBEBETO CHANG [facility] [id number] [facility] 2022-04-04 00:00:00 2022-04-04 00:00:00 Moi Gan [facility] P[facility]O?[facility] 1.2.840.114 350.1.13.10 4.2.7.2.686 [id number] 044 [id number] [facility] 2022-03-28 16:20:00 2022-03-28 16:40:00 Urgent Care Jama Lee, [facility] P[facility]O?[facility] 1..840.114 350.1.13.10 4.2.7.2.686 [id number] [facility] 2022-03-28 16:20:00 2022-03-28 16:20:00 Outpatient R JAMA LEE [facility] [id number] [facility] 2022-03-21 00:00:00 2022-03-21 00:00:00 Orders Only Doctor Unassigned, [place] [facility] 1.840.114 350.1.13.10 4.2.7.2.686 [id number] [facility] 2022-03-03 00:00:00 2022-03-03 00:00:00 RefLuis Miguel Hoffman [facility] 1..840.114 350.1.13.10 4.2.7.2.686 [id number] 044 [id number] [facility] 2022-02-02 00:00:00 2022-02-02 00:00:00 Emre Lopez [facility] P[facility] 1..840.114 350.1.13.10 4.2.7.2.686 [id number] [facility] 2022-01-28 11:30:00 2022-01-28 11:30:00 Outpatient R EMRE GAN [facility] [id number] [facility] 2022-01-28 11:30:00 2022-01-28 11:30:00 Outpatient EMRE DUMONT [facility] [id number] [facility] 2022-01-07 00:00:00 2022-01-07 00:00:00 Patient Secure Msg Doctor Unassigned, [place] [facility] 1..840.114 350.1.13.10 4.2.7.2.686 [id number] [facility] 2022-01-05 13:20:00 2022-01-05 13:20:00 Urgent Care SaeBebeto chang Antoni [facility]O?[facility] 1.2840.114 350.1.13.10 4.2.7.2.686 [id number] [facility] 2022-01-05 13:20:00 2022-01-05 10:49:31 Outpatient R ANTONI HEIDE [facility] [id number] [facility] 2022-01-05 00:00:00 2022-01-05 00:00:00 Letter (Out) Provider, Jackson [facility] 1.84.114 350.1.13.10 4.2.7.2.686 [id number] [facility] 2022-01-05 00:00:00 2022-01-05 00:00:00 Telephone Bebeto Arce [facility] 1.84.114 350.1.13.10 4.2.7.2.686 [id number] [facility] 2022-01-04 00:00:00 2022-01-04 00:00:00 Orders Only Doctor Unassigned, [place] [facility] 1.0.114 350.1.13.10 4.2.7.2.686 [id number] [facility] 2021-12-31 00:00:00 2021-12-31 00:00:00 Telephone Emre Gan [facility] 1.840.114 350.1.13.10 4.2.7.2.686 [id number] 044 [id number] [facility] 2021-12-31 00:00:00 2021-12-31 00:00:00 Telephone Emre Gan [facility] P[facility] 1.2.840.114 350.1.13.10 4.2.7.2.686 [id number] [facility] 2021-12-30 11:00:00 2021-12-30 11:00:00 [facility] [id number] 2021-12-30 11:00:00 2021-12-30 11:00:00 [facility] [id number] [facility] 2021-12-28 11:30:00 2021-12-28 12:26:05 [facility] [id number] [facility] 2021 00:00:00 2021 00:00:00 Telephone Kirst[facility] GanAtrium HealthE?[facility] 1.2.840.114 350.1.13.10 4.2.7.2.686 [id number] [facility] 2021-11-04 11:30:00 2021-11-04 11:30:00 Outpatient CHRISTOPHER DELUNA [facility] [id number] [facility] 2021-11-02 16:30:00 2021-11-02 16:45:00 Wic Site Coordinator Visit Lab, Jackson KabaKirsten armentaNov[facility] P[facility] 1.2.840.114 350.1.13.10 4.2.7.2.686 [id number] [facility] 2021-11-02 15:00:00 2021-11-02 16:27:02 Outpatient R ELVIAEMRE [facility] [id number] [facility] 2021-11-02 15:00:00 2021-11-02 16:27:02 Office Visit [facility] 1.284.114 350.1.13.10 4.2.7.2.686 [id number] 044 [id number] [facility] 2021-10-19 00:00:00 2021-10-19 00:00:00 Telephone Dem[facility]ri [facility] 1.2.114 350.1.13.10 4.2.7.2.686 [id number] [facility] 2021-10-18 13:45:00 2021-10-18 15:41:27 Outpatient R DEMETRI LAKE BRENT [facility] [id number] [facility] 2021-10-18 13:45:00 2021-10-18 15:41:27 Office Visit Joan Carlson Brent [facility] 1..114 350.1.13.10 4.2.7.2.686 [id number] [facility] 2021-10-18 13:45:00 2021-10-18 15:41:27 Office Visit Joan Carlson Brent [facility] 1.284.114 350.1.13.10 4.2.7.2.686 [id number] [facility] 2021-10-18 13:45:00 2021-10-18 15:41:27 Outpatient R DEMETRI LAKE BRENT [facility] [id number] [facility] 2021-10-13 00:00:00 2021-10-13 00:00:00 Telephone [facility] 1.2.84.114 350.1.13.10 4.2.7.2.686 [id number] [facility] 2021-10-05 10:30:00 2021-10-05 11:13:32 Office Visit [facility] 1..840.114 350.1.13.10 4.2.7.2.686 [id number] [facility] 2021-10-05 10:30:00 2021-10-05 11:13:32 Outpatient R EMRE GAN [facility] [id number] [facility] 2021-10-05 10:30:00 2021-10-05 10:30:00 Outpatient R EMRE GAN [facility] [id number] [facility] 2021-10-05 10:30:00 2021-10-05 10:30:00 Outpatient R EMRE GAN [facility] [id number] [facility] 2021-10-04 00:00:00 2021-10-04 00:00:00 Telephone [facility] 1..840.114 350.1.13.10 4.2.7.2.686 [id number] [id number] [facility] 2021-09-27 10:30:00 2021-09-27 10:45:00 Wic Site Coordinator Visit Lab, Ang - Db [facility] 1.2.840.114 350.1.13.10 4.2.7.2.686 [id number] [facility] 2021-09-27 10:30:00 2021-09-27 10:30:00 Outpatient R EMRE GAN [facility] [id number] [facility] 2021-09-27 00:00:00 2021-09-27 00:00:00 Telephone [facility] 1.2.840.114 350.1.13.10 4.2.7.2.686 [id number] [facility] 2021-09-24 16:30:00 2021-09-24 17:11:50 Outpatient EMRE DUMONT [facility] [id number] [facility] 2021-09-24 16:30:00 2021-09-24 17:11:50 [facility] 1.2.840.114 350.1.13.10 4.2.7.2.686 [id number] [facility] 2021-09-24 16:30:00 2021-09-24 17:11:50 Outpatient EMRE DUMONT [facility] [id number] [facility] 2021-09-06 13:07:39 2021-09-06 14:01:08 [facility] 1.2.840.114 350.1.13.10 4.2.7.2.686 [id number] [facility] 2021-09-06 13:00:00 2021-09-06 14:01:08 Outpatient EMRE DUMONT [facility] [id number] [facility] 2021-09-06 13:00:00 2021-09-06 13:00:00 Outpatient EMRE DUMONT [facility] [id number] [facility] 2021-09-06 00:00:00 2021-09-06 00:00:00 Orders Only Doctor Unassigned, [place] [facility] 1.2.840.114 350.1.13.10 4.2.7.2.686 [id number] [facility] 2021-02-06 13:10:00 2021-02-06 13:10:00 Outpatient SHERIF HERNANDEZ [facility] [id number] [facility] 2021-01-16 13:10:00 2021-01-16 13:10:00 Outpatient [facility] [id number] [facility] Results Test Description Test Time Test Comments Results Result Co mments Source [facility] HEMOGLOBIN A1C [id number] 19:37:00* Test Item Value Reference Range Interpretation Comme nts POCT HBA1C (test code = 4548-4) 9.1 % 4-6 A Lab Interpretation (test cod e = 87213-6) Abnormal [facility] HEMOGLOBIN A1C [id number] 19:37:00* Test Item Value Reference Range Interpretation Comme nts POCT HBA1C (test code = 4548-4) 9.1 % 4-6 A Lab Interpretation (test cod e = 58805-4) Abnormal [facility] HEMOGLOBIN A1C [id number] 15:18:00* Test Item Value Reference Range Interpretation Comme nts POCT HBA1C (test code = 4548-4) 8.8 % 4-6 A Lab Interpretation (test cod e = 69929-4) Abnormal [facility] HEMOGLOBIN A1C [id number] 15:18:00* Test Item Value Reference Range Interpretation Comme nts POCT HBA1C (test code = 4548-4) 8.8 % 4-6 A Lab Interpretation (test cod e = 26389-7) Abnormal [facility] HEMOGLOBIN A1C [id number] 21:00:00* Test Item Value Reference Range Interpretation Comme nts POCT HBA1C (test code = 4548-4) 12.1 % 4-6 A Lab Interpretation (test cod e = 79405-4) Abnormal [facility] HEMOGLOBIN A1C [id number] 21:00:00* Test Item Value Reference Range Interpretation Comme nts POCT HBA1C (test code = 4548-4) 12.1 % 4-6 A Lab Interpretation (test cod e = 52728-5) Abnormal [facility] Notes Date/Time Note Provider Source 2024-02-02 14:59:41 [id number]:59:41F ormatting of this note might be different from the original.Patient notified via private, detailed voicemail that he needs to obtain the requested letter from his oncologist. Closing encounter.Elvira Robins, OXYGEN EQUIPMENT PREPARER 02/02/2024 3:00 PM 44244-6Vzmuuklvm encounter [id number]:00:30Telepho ne encounter [id number] [id number] e for patient [id number] USEUMA narrative [id number] M [address] [place] 6203TWUUTSTVZZYNKJPQNJWYLQ5173-4 5:00:301.2.840.195353.1.72 .3.15|1.2.840.032752.1.13.104.2. 7.2.727879_[id number] Elvira M Shimon [facility] 2024-02-01 18:02:16 9258-50-52U34:02:16F ormatting of this note might be different from the original.He needs to get that from his oncologist. He is also due for a follow up and labs considering he has uncontrolled diabetes among other issues. 18055-3Unxtcfpbw encounter PcnuMR4207-06-62O82:03:23Telepho ne encounter NoteTXT1.2.840.133552.1.13.104.2 .7.2.270906|[id number] e for patient artu19126-4SnjePPMGNLFDMHJYggjpz andre C-CDA narrative [address]TX[place] 4085LOVLSECWBZRHYEAMSTRBME2408-6 :03:231.2.840.350520.1.72 .3.15|1.2.840.134044.1.13.104.2. 7.2.727879_[id number] [facility] 2024-01-31 08:56:58 6509-08-79B51:56:58F ormatting of this note might be different from the original.Please review and advise 42404-8Wnljrfpsl encounter EhidWP1987-13-99O28:57:05Telepho ne encounter NoteTXT1.2.840.043430.1.13.104.2 .7.2.313210|[id number] e for patient rwde65694-3CaolQCOMAIKGERPZuadyp andre C-CDA narrative text[address] 7275QKRBWJLSJZKRKNPUSKOZEK9595-4 01-30T08:57:051.2.840.681543.1.72 .3.15|1.2.840.128660.1.13.104.2. 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 He is needing it for employment and would like it mailed to the address on file.. 27148-8Doxikypot encounter MfvnPD2836-48-62Y70:50:48Telepho ne encounter NoteTXT1.2.840.690702.1.13.104.2 .7.2.300771|[id number] e for patient sbjr69969-7JlyyOJQYVBODHMYGgohka andre C-CDA narrative [id number] [address]vd[address] 5500JFHZKQUXCDEOYGALVMBGZT2999-6 4-24T08:50:481.2.840.575808.1.72 .3.15|1.2.840.487618.1.13.104.2. 7.2.727879_[id number] Leslie Cuellar [facility] 2023-09-22 13:36:26 3250-09-23Q46:36:26F ormatting of this note is different from the original.Images from the original note were not included.Last Refilled: 03/24/23Notes:[facility][id number] - [place], [place] - [address] [place] [address] [facility]Phone: BBO, AST not in rangeRecent VisitsDate Type Provider Dept1 Office Visit AneSaskia armentaa, MIRROR PAINTER [facility]07/10/23 Office Visit Anene Emre, MIRROR PAINTER [facility]05/26/23 Office Visit Anene, Emre, MIRROR PAINTER [facility]04/13/23 Office Visit Anene, Emre, MIRROR PAINTER [facility]03/31/23 Office Visit Anene Emre, MIRROR PAINTER [facility]03/24/23 Office Visit Melly Barber PA [facility]08/04/22 Office Visit Anene, Emre, MIRROR PAINTER [facility]07/05/22 Office Visit Anene Emre, MIRROR PAINTER [facility]06/20/22 Office Visit Anene, Emre, MIRROR PAINTER [facility] Fam MedShowing recent visits within past 540 days with a meds authorizing provider and meeting all other requirementsFuture AppointmentsNo visits were found meeting these conditions.Showing future appointments within next 150 days with a meds authorizing provider and meeting all other requirementsName from pharmacy: ROSUVASTATIN CALCIUM 20 MG TABGaboll file in chart as: ROSUVASTATIN 20 mg tabletSig: TAKE 1 TABLET BY MOUTH EVERYDAY AT BEDTIMEDisp: 90 tablet Refills: 1Start: 09/22/2023lass: eRXFor: Hypertriglyceridemia, DyslipidemiaLast ordered: 6 months ago (03/24/2023) by Chayito Tavera refill: 06/27/2023Rx #: [id number]: Antilipid - HMG-CoA Reductase Inhibitors Owxxwx7809/22/2023 11:30 AMProtocol Details AST in normal range and within 360 daysALT in normal range and within 360 daysValid encounter within last 12 monthsTotal Cholesterol within 360 daysLDL within 360 daysHDL within 360 daysTriglycerides within 360 daysTo be filled at: [id number] [place] [place] - [address] AT [facility] [address]-1Dpybvofbj encounter XpcoSV5479-60-12M57:37:21Telepho ne encounter NoteTXT1.2.840.049875.1.13.104.2 .7.2.868614|[id number] e for patient danx71911-8EiuiMRTUABRIMONLttyge andre C-CDA narrative [address] EeqdKhvqvubacJjuzvhmcuXQMY637200 8868GHIXQPFJWUUOETVIPQGGNI4374-4 2-15T13:37:211.2.840.879623.1.72 .3.15|1.2.840.212771.1.13.104.2. 7.2.727879_[id number] [facility]"
[2024-03-18 20:05] VITALS: BP 139/96; TEMP 98.1; O2SAT 100
== END 2024-03-18 19:36 | disposition home or self-care (01) ==
LOC: ER 19:14
DX: Z71.1 Person with feared health complaint in whom no diagnosis is made (principal)
CPT/HCPCS: 82947; 99282

== ENCOUNTER 2024-09-04 16:00 | Emergency (ER) | payer OTHER ==
--- OUTSIDE RECORDS SUMMARY | 2024-09-04 16:07 | XMS REPORT | Continuity of Care Document ---
Author Name Unknown Address [address] [facility] [address] [place] [address] [facility] thconnect Address [address] [facility] 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 Name Role Phone Nicole Bateman MD, Christopher Bondzeeshan Primary Care Physici an Esther Corrigan MD Attending Clinician [phone] ESTHER CORRIGAN Attending Clinician Unavail able MELLY BARBER Attending Clinician Unavailable Melly Guzman Attending Clinician [phone] EMRE GAN Attending Clinician Unavailable Emre Nieves Attending Clinician [phone] ANN MCKNIGHT Attending Clinician Unavailable Doctor Unassigned, Sage Attending Clinician U navailable Lab, Ang - Db Attending Clinician Unavailable Ann Fisher Attending Clinician [phone] RICHARD CRUZ Attending Clinician UnavailRichard Desir MD Attending Clinician [phone] ROSEANNE LEVINE Attending Clinician Unavailable Roseanne Levine MD Attending Clinician [phone] Luis Miguel Estrada MD Attending Clinician [phone] Bebeto Navas Attending Clinician Kateryna Verduzco MD Attending Clinician [phone] KATERYNA VERDUZCO Attending Clinician Unavailable BEBETO ARCE Attending Clinician Unavailable Zachary SUPERVISOR FISH BAIT PROCESSING, Jama Attending Clinician JAMA LEE Attending Clinician Unavailsawyer Hurt SUPERVISOR FISH BAIT PROCESSING, Heide Attending Clinician [phone] HEIDE HURT Attending Clinician Unavailable Provider, [facility] Attending Clinician Unavailable CHRISTOPHER TAMAYO Attending Clinician Unavailable Demetri Lake MD Attending Clinician [phone] DEMETRI LAKE Attending Clinician Unavailable DEMETRI LAKE Attending Clinician Unavailable Joan Carlson MD Attending Clinician [phone] SHERIF HERNANDEZ Attending Clinician Unavailable ROSEANNE LEVINE Admitting Clinician Unavailable Payers Payer Name Policy Type Policy Number Effective Date Expirati on Date Source [facility] HMO/CHOICE COMM [id number] 2024 00:00:00 [facility] [id number] 2022 00:00:00 [facility] MEDICAID [id number] 2018 00:00:00 Problems Condition Name Condition Details Condition Category Status Onset Date Resolution Date Last Treatment Date Treating Clinician Comments Source Other headache syndrome Other headache syndrome Disease Active 06-17 00:00: 00 Joanne Orta Dyslipidem ia Dyslipidem ia Disease Active 11-25 00:00: 00 Joanne Orta NAFLD (nonalcoho lic fatty liver disease) NAFLD (nonalcoho lic fatty liver disease) Disease Active 11-25 00:00: 00 Joanne Orta Non compliance with medical treatment Non compliance with medical treatment Disease Active 11-25 00:00: 00 Joanne Orta Type 2 diabetes mellitus with hyperglyce jared, without long-term current use of insulin (CMS/HCC) Type 2 diabetes mellitus with hyperglyce jared, without long-term current use of insulin (CMS/HCC) Disease Active 11-25 00:00: 00 Joanne Orta NAFLD (nonalcoho lic fatty liver disease) NAFLD (nonalcoho lic fatty liver disease) Disease Active 11-25 00:00: 00 [facility] Exposure to medical therapeuti c radiation Exposure to medical therapeuti c radiation Disease Active 11-15 00:00: 00 Overview: Formattin g of this note might be different from the original. Formattin g of this note might be different from the original. TBI 1400cGY part of BMT Condition ing Regimen [facility] At risk for alteration in endocrine function At risk for alteration in endocrine function Disease Active 11-19 00:00: 00 Joanne Orta Obesity due to excess calories without serious comorbidit y with body mass index (BMI) in 95th to 98th percentile for age in pediatric patient Obesity due to excess calories without serious comorbidit y with body mass index (BMI) in 95th to 98th percentile for age in pediatric patient Disease Active 11-19 00:00: 00 [facility] At risk for alteration in endocrine function At risk for alteration in endocrine function Disease Active 11-19 00:00: 00 [facility] Obesity due to excess calories without serious comorbidit y with body mass index (BMI) in 95th to 98th percentile for age in pediatric patient Obesity due to excess calories without serious comorbidit y with body mass index (BMI) in 95th to 98th percentile for age in pediatric patient Disease Active 11-19 00:00: 00 [facility] Mild cognitive impairment Mild cognitive impairment Disease Active 03-20 00:00: 00 Joanne Orta Abnormal echocardio gram findings without diagnosis Abnormal echocardio gram findings without diagnosis Disease Active 02-24 00:00: 00 Joanne Orta Adjustment disorder with depressed mood Adjustment disorder with depressed mood Disease Active 01-04 00:00: 00 Joanne Orta Irritable bowel Irritable bowel Disease Active 12-23 00:00: 00 Joanne Orta Vitamin D deficiency Vitamin D deficiency Disease Active 01-24 00:00: 00 Overview: Formattin g of this note might be different from the original. Formattin g of this note might be different from the original. 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 Formattin g of this note might be different from the original. Taking focalin [facility] Essential hypertensi on Essential hypertensi on Disease Active 1-21 00:00: 00 Overview: Formattin g of this note might be different from the original. 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 Utility [facility] Leukemia Leukemia Disease Resolve d 06-17 00:00: 00 2024-06-17 00:00:00 2024-06-17 10:40:28 Joanne Orta History of appendecto my History of appendecto my Disease Resolve d 2019-0 2-07 00:00: 00 2024-06-17 00:00:00 2024-06-17 10:40:28 Joanne Orta Care 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 Care 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 Disease Resolve d 2017- 1- 00:00: 00 2024-06-17 00:00:00 2024-06-17 10:40:28 Joanne Spain [facility] Allergies, Adverse Reactions, Alerts Allergy Name Allergy Type Status Severity Reaction(s) Onset Date Inactive Date Treating Clinician Comments Source Permethr in Propensi ty to adverse reaction s Active Itching 04-29 00:00: 00 [facility] PERMETHR IN DRUG INGREDI Active ITCHING 04-29 00:00: 00 [facility] Latex Propensi ty to adverse reaction s Active Rash 02-23 00:00: 00 Redness to site where latex touches [facility] LATEX DRUG INGREDI Active Med Rash 02-23 00:00: 00 [facility] Pegaspar gase Propensi ty to adverse reaction s Active Hives 12-03 00:00: 00 Pre-medic ate peg-aspar aginase with diphenhyd ramine [facility] PEGASPAR GASE DRUG INGREDI Active Low Hives 12-03 00:00: 00 [facility] ALLERGIE S NOT ON FILE SYSTEMIC Active MHEOUT ALLERGIE S NOT ON FILE SYSTEMIC Active MHEOUT ALLERGIE S NOT ON FILE SYSTEMIC Active MHEOUT NO KNOWN ALLERGIE S SYSTEMIC Active MHEOUT Social History Social Habit Start Date Stop Date Quantity Comments Source Gender identity Deven Spain [facility] Sexual orientation M [facility]orial Grabiel [facility] History of tobacco use Passive smoker [facility] Tobacco use and exposure 2024-06-17 00:00:00 2024-06-17 00:00:00 Smokeless tobacco non-user [facility] Alcoholic beverage intake 2024-06-17 00:00:00 2024-06-17 00:00:00 Lifetime non-drinker (finding) [facility] History of Social function 2024-06-17 00:00:00 2024-06-17 00:00:00 [facility] Alcohol intake 2023-07-31 00:00:00 2023-07-31 00:00:00 Current non-drinker of alcohol (finding) [facility] Exposure to SARS-CoV-2 (event) 2023-03-14 00:00:00 2023-03-24 09:25:00 Not sure [facility] Tobacco Comment 2022-06-20 00:00:00 2022-06-20 00:00:00 Family smokes outside [facility] Sex assigned at 2000 00:00:00 2000 00:00:00 [facility] Smoking Status Start Date Stop Date Source Never smoked tobacco Joanne Orta Medications Ordered Medication Name Filled Medication Name Start Date Stop Date Current Medication? Ordering Clinician Indication Dosage Frequency Signature (SIG) Comments Components Source citalopram (CeleXA) 20 MG tablet citalopram (CeleXA) 20 MG tablet 06-17 10:43: 52 Yes 20mg QD Take 20 mg by mouth 1 time each day. Joanne Orta traZODone (Desyrel) 50 MG tablet traZODone (Desyrel) 50 MG tablet 06-17 10:43: 52 Yes 50mg Take 50 mg by mouth at bedtime. Joanne Orta ARIPiprazol e (Abilify) 5 MG tablet ARIPiprazol e (Abilify) 5 MG tablet 06-17 10:43: 52 Yes 5mg QD Take 5 mg by mouth 1 time each day. Joanne Orta OXcarbazepi ne (Trileptal) 600 MG tablet OXcarbazepi ne (Trileptal) 600 MG tablet 06-17 10:43: 52 Yes 600mg Take 600 mg by mouth at bedtime. Joanne Orta topiramate (Topamax) 25 MG tablet topiramate (Topamax) 25 MG tablet 06-17 00:00: 00 06-17 23:59 :00 No 25mg Take 1 tablet by mouth at bedtime. Joanne Orta eletriptan (Relpax) 40 MG tablet eletriptan (Relpax) 40 MG tablet 06-17 00:00: 00 07-17 23:59 :00 No 40mg Take 1 tablet by mouth 1 time if needed for migraine (may repeat x1). May repeat in 2 hours if unresolved . Do not exceed 80 mg in 24 hours. Joanne Orta HumuLIN 70/30 KWIKPEN (70-30) 100 UNIT/ML injection HumuLIN 70/30 KWIKPEN (70-30) 100 UNIT/ML injection 06-06 00:00: 00 Yes Inject under the skin. Joanne Orta ondansetron ODT (Zofran-ODT ) 4 MG disintegrat ing tablet ondansetron ODT (Zofran-ODT ) 4 MG disintegrat ing tablet 05-06 00:00: 00 Yes 4mg Take 4 mg by mouth. Joanne Orta ROSUVASTATI N 20 mg tablet 2022-10 00:00: 00 Yes [id number] 20mg TAKE 1 TABLET BY MOUTH EVERYDAY AT BEDTIME [facility] ibuprofen 600 mg tablet 2022-10 0 00:00: 00 Yes TAKE 1 TABLET BY MOUTH EVERY 6 HOURS NEEDED (TAKE WITH FOOD) [facility] blood sugar diagnostic (ONETOUCH ULTRA TEST) strip 2022-10 00:00: 00 Yes [id number] Use as directed to test blood sugars twice daily E11.65 [facility] Blood-Gluco se Meter (ONETOUCH VERIO METER) [facility] 2022-10 00:00: 00 Yes Use as directed to check blood sugars twice daily E11.65 [facility] Lancets (ONETOUCH ULTRASOFT LANCETS) [facility] [place]22-10 00:00: 00 Yes Use as directed to check blood sugars twice daily E11.65 [facility] trazodone HCl (TRAZODONE ORAL) 2022-10 11:40: 51 07-18 00:00 :00 No Take by mouth. [facility] citalopram 10 mg tablet 2022-10 11:40: 51 07-18 00:00 :00 No 10mg Take 10 mg by mouth daily. [facility] tirzepatide (MOUNJARO) 5 mg/0.5 mL PnIj 2022-10 00:00: 00 Yes [id number] 5mg inject 5 mg under the skin weekly. [facility] Blood-Gluco se Sensor (FREESTYLE BURAK 3 SENSOR) Mari 2022-10 0 00:00: 00 07-20 00:00 :00 No [id number] 1{each} inject 1 Each under the skin every 14 (fourteen) days. Use as directed to check blood sugar 4X for uncontroll ed type 2 diabetes. Diagnosis E11.65 [facility] citalopram 20 mg tablet 2022-10 0 00:00: 00 Yes 20mg Take 1 tablet by mouth in the morning. [facility] traZODone 50 mg tablet 2022-10 0 00:00: 00 Yes 50mg Take 1 tablet by mouth at bedtime. [facility] proMETHazin e 25 mg tablet 2022-10 0 00:00: 00 Yes [id number] 25mg Take 1 tablet by mouth every 6 (six) hours as needed for Nausea and Vomiting (N/V). [facility] Insulin Glargine (LANTUS SOLOSTAR U-100 INSULIN) 100 unit/mL (3 mL) injection 2022-10 0 00:00: 00 Yes [id number] 20U inject 20 Units under the skin in the morning and 20 Units in the evening. [facility] Insulin Glargine (LANTUS SOLOSTAR U-100 INSULIN) 100 unit/mL (3 mL) injection 2022-10 0 00:00: 00 Yes [id number] 20U inject 20 Units under the skin in the morning and 20 Units in the evening. [facility] semaglutide (OZEMPIC) 1 mg/dose (4 mg/3 mL) PnIj 8-18 00:00: 00 07-18 00:00 :00 No [id number] 1mg inject 1 mg under the skin weekly. [facility] Insulin Glargine (LANTUS SOLOSTAR U-100 INSULIN) 100 unit/mL (3 mL) injection 7-14 00:00: 00 07-10 00:00 :00 No [id number] 15U inject 15 Units under the skin in the morning and 15 Units in the evening. [facility] semaglutide (OZEMPIC) 0.25 mg or 0.5 mg(2 mg/1.5 mL) PnIj 06 00:00: 00 05-26 00:00 :00 No [id number] .5mg inject 0.5 mg under the skin weekly. [facility] Insulin Glargine (LANTUS SOLOSTAR U-100 INSULIN) 100 unit/mL (3 mL) injection 03-31 00:00: 00 04-21 00:00 :00 No [id number] 15U inject 15 Units under the skin in the morning and 15 Units in the evening. [facility] semaglutide (OZEMPIC) 0.25 mg or 0.5 mg(2 mg/1.5 mL) Ij 03-31 00:00: 00 04-13 00:00 :00 No [id number] .25mg inject 0.25 mg under the skin weekly. [facility] icosapent ethyL (VASCEPA) 1 gram capsule 03-24 00:00: 00 Yes [id number] 2g Take 2 capsules by mouth in the morning and 2 capsules in the evening. [facility] ezetimibe 10 mg tablet 03-24 00:00: 00 Yes [id number] 10mg Take 1 tablet by mouth in the morning. [facility] lisinopriL 2.5 mg tablet 16 00:00: 00 Yes [id number] 2.5mg Take 1 tablet by mouth in the morning. [facility] rosuvastati n (CRESTOR) 20 mg tablet 16 00:00: 00 09-29 00:00 :00 No [id number] 20mg Take 1 tablet by mouth at bedtime. [facility] icosapent ethyL (VASCEPA) 1 gram capsule 14 00:00: 00 03-24 00:00 :00 No [id number] 2g Take 2 capsules by mouth in the morning and 2 capsules in the evening. [facility] ezetimibe 10 mg tablet 5-22 00:00: 00 03-24 00:00 :00 No [id number] 10mg Take 1 tablet by mouth in the morning. [facility] icosapent ethyL (VASCEPA) 1 gram capsule 4-14 00:00: 00 03-22 00:00 :00 No [id number] 2g Take 2 capsules by mouth in the morning and 2 capsules in the evening. [facility] rosuvastati n (CRESTOR) 20 mg tablet 4-03 00:00: 00 03-24 00:00 :00 No [id number] 20mg Take 1 tablet by mouth at bedtime. [facility] lisinopriL 2.5 mg tablet 1-10 00:00: 00 03-24 00:00 :00 No [id number] 2.5mg Take 1 tablet by mouth in the morning. [facility] metformin ER 750 mg 24 hr tablet 2021-10 2-30 00:00: 00 Yes [id number] 750mg Take 1 tablet by mouth daily with breakfast. [facility] glipiZIDE XL 10 mg 24 hr tablet 2021-10 2-30 00:00: 00 04-21 00:00 :00 No [id number] 20mg Take 2 tablets by mouth daily with breakfast. [facility] LISINOPRIL 2.5 mg tablet 2021-10 0-13 00:00: 00 10-18 00:00 :00 No [id number] TAKE 1 TABLET BY MOUTH EVERY DAY [facility] ezetimibe 10 mg tablet 0 9-27 00:00: 00 02-27 00:00 :00 No [id number] 10mg Take 1 tablet by mouth in the morning. [facility] rosuvastati n (CRESTOR) 20 mg tablet 9-27 00:00: 00 01-09 00:00 :00 No [id number] 20mg Take 1 tablet by mouth at bedtime. [facility] icosapent ethyL (VASCEPA) 1 gram capsule 9-14 00:00: 00 07-23 04:59 :00 No [id number] 2g Take 2 capsules by mouth in the morning and 2 capsules in the evening. Do all this for 30 days. [facility] semaglutide (OZEMPIC) 0.25 mg or 0.5 mg(2 mg/1.5 mL) PnIj 06-20 00:00: 00 03-24 00:00 :00 No [id number] .5mg inject 0.5 mg under the skin weekly. Start 0.25 mg weekly for 4 weeks, then 0.5 mg thereafter [facility] glipiZIDE XL 10 mg 24 hr tablet 06-20 00:00: 00 10-07 00:00 :00 No [id number] 10mg Take 1 tablet by mouth daily with breakfast. [facility] metformin ER 750 mg 24 hr tablet 06-20 00:00: 00 10-07 00:00 :00 No [id number] 750mg Take 1 tablet by mouth daily with breakfast. [facility] clobetasoL 0.05 % ointment 805 00:00: 00 Yes [id number] Apply to area(s) 2 (two) times daily. [facility] lisinopriL 2.5 mg tablet 6-27 00:00: 00 07-21 00:00 :00 No [id number] 2.5mg Take 1 tablet by mouth daily. [facility] guanFACINE (Intuniv) 3 mg 24 hr tablet guanFACINE (Intuniv) 3 mg 24 hr tablet 03-06 00:00: 00 Yes 1{tbl} Take 1 tablet by mouth at bedtime. Joanne Spain [facility] Cholecalcif ricardo, Vitamin D3, 50 mcg (2,000 unit) capsule 03-06 00:00: 00 Yes 2{capsu le} Take 2 capsules by mouth daily. [facility] Cholecalcif ricardo, Vitamin D3, 50 mcg (2,000 unit) capsule 03-06 00:00: 00 Yes 4000U Take 2 capsules by mouth in the morning. [facility] ROSUVASTATI N 20 mg tablet 03-03 00:00: 00 07-05 00:00 :00 No [id number] 20mg TAKE 1 TABLET BY MOUTH AT BEDTIME. MUST BE SEEN FOR FURTHER REFILLS [facility] famotidine 20 mg tablet 02-07 00:00: 00 Yes TAKE 1 TABLET BY MOUTH EVERY 12 HOURS FOR 10 DAYS [facility] ondansetron 4 mg tablet 02-07 00:00: 00 07-18 00:00 :00 No TAKE 1 TABLET BY MOUTH EVERY 12 HOURS NEEDED [facility] OXcarbazepi ne 600 mg tablet 01-31 00:00: 00 Yes 600mg Take 1 tablet by mouth in the morning and 1 tablet in the evening. [facility] ARIPiprazol e 5 mg tablet 01-18 00:00: 00 Yes 5mg Take 1 tablet by mouth at bedtime. [facility] ivermectin 3 mg tablet 10-20 00:00: 00 Yes [id number] 13.5mg Take 4.5 tablets by mouth weekly. [facility] trazodone HCl (TRAZODONE ORAL) 2020-10 13:30: 06 Yes Take by mouth. [facility] citalopram 10 mg tablet 2020-10 13:30: 06 Yes 10mg Take 10 mg by mouth daily. [facility] cetirizine (ZYRTEC) 10 mg tablet 10-11 00:00: 00 Yes [id number] 10mg Take 1 Tab by mouth daily. [facility] Immunizations Ordered Immunization Name Filled Immunization Name Date Status Comments Source Influenza, injectable, MDCK, quadrivalent Influenza, injectable, MDCK, quadrivalent 2023-07-31 00:00:00 Completed [facility] TDAP 2023-05-26 00:00:00 Completed [facility] Tdap Tdap 2023-05-26 00:00:00 Completed [facility] SARS-COV-2 COVID-19 PFIZER VACCINE 2021-09-06 00:00:00 Completed [facility] SARS-COV-2 COVID-19 PFIZER VACCINE 2021-09-06 00:00:00 Completed [facility] SARS-COV-2 COVID-19 PFIZER VACCINE 2021-09-06 00:00:00 Completed [facility] SARS-COV-2 COVID-19 PFIZER VACCINE 2021-09-06 00:00:00 Completed [facility] SARS-COV-2 COVID-19 PFIZER VACCINE 2021-09-06 00:00:00 Completed [facility] SARS-COV-2 COVID-19 PFIZER VACCINE 2021-09-06 00:00:00 Completed [facility] SARS-COV-2 COVID-19 PFIZER VACCINE 2021-09-06 00:00:00 Completed [facility] SARS-COV-2 COVID-19 PFIZER VACCINE 2021-09-06 00:00:00 Completed [facility] SARS-COV-2 COVID-19 PFIZER VACCINE 2021-09-06 00:00:00 Completed [facility] SARS-COV-2 COVID-19 PFIZER VACCINE 2021-09-06 00:00:00 Completed [facility] SARS-COV-2 COVID-19 PFIZER VACCINE 2021-09-06 00:00:00 Completed [facility] SARS-COV-2 COVID-19 PFIZER VACCINE 2021-09-06 00:00:00 Completed [facility] SARS-COV-2 COVID-19 PFIZER VACCINE 2021-09-06 00:00:00 Completed [facility] SARS-COV-2 COVID-19 PFIZER VACCINE 2021-09-06 00:00:00 Completed [facility] SARS-COV-2 COVID-19 PFIZER VACCINE 2021-09-06 00:00:00 Completed [facility] SARS-COV-2 COVID-19 PFIZER VACCINE 2021-09-06 00:00:00 Completed [facility] SARS-COV-2 COVID-19 PFIZER VACCINE 2021-09-06 00:00:00 Completed [facility] SARS-COV-2 COVID-19 PFIZER VACCINE 2021-09-06 00:00:00 Completed [facility] SARS-COV-2 COVID-19 PFIZER VACCINE 2021-09-06 00:00:00 Completed [facility] SARS-COV-2 COVID-19 PFIZER VACCINE 2021-09-06 00:00:00 Completed [facility] SARS-COV-2 COVID-19 PFIZER VACCINE 2021-09-06 00:00:00 Completed [facility] SARS-COV-2 COVID-19 PFIZER VACCINE 2021-09-06 00:00:00 Completed [facility] SARS-COV-2 COVID-19 PFIZER VACCINE 2021-09-06 00:00:00 Completed [facility] SARS-COV-2 COVID-19 PFIZER VACCINE 2021-09-06 00:00:00 Completed [facility] SARS-COV-2 COVID-19 PFIZER VACCINE 2021-09-06 00:00:00 Completed [facility] SARS-COV-2 COVID-19 PFIZER VACCINE 2021-09-06 00:00:00 Completed [facility] SARS-COV-2 COVID-19 PFIZER VACCINE 2021-09-06 00:00:00 Completed [facility] SARS-COV-2 COVID-19 PFIZER VACCINE 2021-09-06 00:00:00 Completed [facility] SARS-COV-2 COVID-19 PFIZER VACCINE 2021-09-06 00:00:00 Completed [facility] SARS-COV-2 COVID-19 PFIZER VACCINE 2021-09-06 00:00:00 Completed [facility] SARS-COV-2 COVID-19 PFIZER VACCINE 2021-02-06 00:00:00 Completed [facility] SARS-COV-2 COVID-19 PFIZER VACCINE 2021-02-06 00:00:00 Completed [facility] SARS-COV-2 COVID-19 PFIZER VACCINE 2021-02-06 00:00:00 Completed [facility] SARS-COV-2 COVID-19 PFIZER VACCINE 2021-02-06 00:00:00 Completed [facility] SARS-COV-2 COVID-19 PFIZER VACCINE 2021-02-06 00:00:00 Completed [facility] SARS-COV-2 COVID-19 PFIZER VACCINE 2021-02-06 00:00:00 Completed [facility] SARS-COV-2 COVID-19 PFIZER VACCINE 2021-02-06 00:00:00 Completed [facility] SARS-COV-2 COVID-19 PFIZER VACCINE 2021-02-06 00:00:00 Completed [facility] SARS-COV-2 COVID-19 PFIZER VACCINE 2021-02-06 00:00:00 Completed [facility] SARS-COV-2 COVID-19 PFIZER VACCINE 2021-02-06 00:00:00 Completed [facility] SARS-COV-2 COVID-19 PFIZER VACCINE 2021-02-06 00:00:00 Completed [facility] SARS-COV-2 COVID-19 PFIZER VACCINE 2021-02-06 00:00:00 Completed [facility] SARS-COV-2 COVID-19 PFIZER VACCINE 2021-02-06 00:00:00 Completed [facility] SARS-COV-2 COVID-19 PFIZER VACCINE 2021-02-06 00:00:00 Completed [facility] SARS-COV-2 COVID-19 PFIZER VACCINE 2021-02-06 00:00:00 Completed [facility] SARS-COV-2 COVID-19 PFIZER VACCINE 2021-02-06 00:00:00 Completed [facility] SARS-COV-2 COVID-19 PFIZER VACCINE 2021-02-06 00:00:00 Completed [facility] SARS-COV-2 COVID-19 PFIZER VACCINE 2021-02-06 00:00:00 Completed [facility] SARS-COV-2 COVID-19 PFIZER VACCINE 2021-02-06 00:00:00 Completed [facility] SARS-COV-2 COVID-19 PFIZER VACCINE 2021-02-06 00:00:00 Completed [facility] SARS-COV-2 COVID-19 PFIZER VACCINE 2021-02-06 00:00:00 Completed [facility] SARS-COV-2 COVID-19 PFIZER VACCINE 2021-02-06 00:00:00 Completed [facility] SARS-COV-2 COVID-19 PFIZER VACCINE 2021-02-06 00:00:00 Completed [facility] SARS-COV-2 COVID-19 PFIZER VACCINE 2021-02-06 00:00:00 Completed [facility] SARS-COV-2 COVID-19 PFIZER VACCINE 2021-02-06 00:00:00 Completed [facility] SARS-COV-2 COVID-19 PFIZER VACCINE 2021-02-06 00:00:00 Completed [facility] SARS-COV-2 COVID-19 PFIZER VACCINE 2021-02-06 00:00:00 Completed [facility] SARS-COV-2 COVID-19 PFIZER VACCINE 2021-02-06 00:00:00 Completed [facility] SARS-COV-2 COVID-19 PFIZER VACCINE 2021-02-06 00:00:00 Completed [facility] SARS-COV-2 COVID-19 PFIZER VACCINE 2021-02-06 00:00:00 Completed [facility] SARS-COV-2 COVID-19 PFIZER VACCINE 2021-01-16 00:00:00 Completed [facility] SARS-COV-2 COVID-19 PFIZER VACCINE 2021-01-16 00:00:00 Completed [facility] SARS-COV-2 COVID-19 PFIZER VACCINE 2021-01-16 00:00:00 Completed [facility] SARS-COV-2 COVID-19 PFIZER VACCINE 2021-01-16 00:00:00 Completed [facility] SARS-COV-2 COVID-19 PFIZER VACCINE 2021-01-16 00:00:00 Completed [facility] SARS-COV-2 COVID-19 PFIZER VACCINE 2021-01-16 00:00:00 Completed [facility] SARS-COV-2 COVID-19 PFIZER VACCINE 2021-01-16 00:00:00 Completed [facility] SARS-COV-2 COVID-19 PFIZER VACCINE 2021-01-16 00:00:00 Completed [facility] SARS-COV-2 COVID-19 PFIZER VACCINE 2021-01-16 00:00:00 Completed [facility] SARS-COV-2 COVID-19 PFIZER VACCINE 2021-01-16 00:00:00 Completed [facility] SARS-COV-2 COVID-19 PFIZER VACCINE 2021-01-16 00:00:00 Completed [facility] SARS-COV-2 COVID-19 PFIZER VACCINE 2021-01-16 00:00:00 Completed [facility] SARS-COV-2 COVID-19 PFIZER VACCINE 2021-01-16 00:00:00 Completed [facility] SARS-COV-2 COVID-19 PFIZER VACCINE 2021-01-16 00:00:00 Completed [facility] SARS-COV-2 COVID-19 PFIZER VACCINE 2021-01-16 00:00:00 Completed [facility] SARS-COV-2 COVID-19 PFIZER VACCINE 2021-01-16 00:00:00 Completed [facility] SARS-COV-2 COVID-19 PFIZER VACCINE 2021-01-16 00:00:00 Completed [facility] SARS-COV-2 COVID-19 PFIZER VACCINE 2021-01-16 00:00:00 Completed [facility] SARS-COV-2 COVID-19 PFIZER VACCINE 2021-01-16 00:00:00 Completed [facility] SARS-COV-2 COVID-19 PFIZER VACCINE 2021-01-16 00:00:00 Completed [facility] SARS-COV-2 COVID-19 PFIZER VACCINE 2021-01-16 00:00:00 Completed [facility] SARS-COV-2 COVID-19 PFIZER VACCINE 2021-01-16 00:00:00 Completed [facility] SARS-COV-2 COVID-19 PFIZER VACCINE 2021-01-16 00:00:00 Completed [facility] SARS-COV-2 COVID-19 PFIZER VACCINE 2021-01-16 00:00:00 Completed [facility] SARS-COV-2 COVID-19 PFIZER VACCINE 2021-01-16 00:00:00 Completed [facility] SARS-COV-2 COVID-19 PFIZER VACCINE 2021-01-16 00:00:00 Completed [facility] SARS-COV-2 COVID-19 PFIZER VACCINE 2021-01-16 00:00:00 Completed [facility] SARS-COV-2 COVID-19 PFIZER VACCINE 2021-01-16 00:00:00 Completed [facility] SARS-COV-2 COVID-19 PFIZER VACCINE 2021-01-16 00:00:00 Completed [facility] SARS-COV-2 COVID-19 PFIZER VACCINE 2021-01-16 00:00:00 Completed [facility] Pneumococcal Polysaccharide PPSV23 Pneumococcal Polysaccharide PPSV23 2019-12-17 00:00:00 Completed [facility] Pneumococcal Polysaccharide, PPSV23 (PNEUMOVAX) 2019-12-17 00:00:00 Completed [facility] Influenza, injectable, quadrivalent, preservative free Influenza, injectable, quadrivalent, preservative free 2017-08-28 00:00:00 Completed [facility] Influenza Virus Vaccine Quad .5 mL IM 6+ MO 2017-08-28 00:00:00 Completed [facility] HPV 9-Valent HPV 9-Valent 2017-03-31 00:00:00 Completed [facility] Meningococcal MCV4P Meningococcal MCV4P 00:00:00 Completed [facility] HPV9 2017-03-31 00:00:00 Completed [facility] Meningococcal Polysaccharide (groups A, C, Y and W-135) conjugate vaccine (MCV4P) 2017-03-31 00:00:00 Completed [facility] Varicella Varicella 2016-06-15 00:00:00 Completed [facility] Varicella (varivax)(chicken pox) 2016-06-15 00:00:00 Completed [facility] Influenza, seasonal, injectable, preservative free Influenza, seasonal, injectable, preservative free 2015-07-20 00:00:00 Completed [facility] Flu Trivalent 2015-07-20 00:00:00 Completed [facility] MMR MMR 2015-05-05 00:00:00 Completed [facility] MMR 2015-05-05 00:00:00 Completed [facility] MMRV MMRV 2015-03-30 00:00:00 Completed [facility] Proquad (MMR/VARICELLA) 2015-03-30 00:00:00 Completed [facility] IPV 2015-03-30 00:00:00 Completed [facility] IPV IPV 2015-03-30 00:00:00 Completed [facility] HIB 3 Dose Schedule 2015-02-27 00:00:00 Completed [facility] Pneumococcal 13 Conjugate, PCV13 (Prevnar 13) 2015-02-27 00:00:00 Completed [facility] Pneumococcal Conjugate PCV 13 Pneumococcal Conjugate PCV 13 2015-02-27 00:00:00 Completed [facility] Hib (PRP-OMP) Hib (PRP-OMP) 2015-02-27 00:00:00 Completed [facility] HEPATITIS A 2014-01-23 00:00:00 Completed [facility] Heamophilus Influenza B 2014-01-23 00:00:00 Completed [facility] HEPATITIS A 2014-01-23 00:00:00 Completed [facility] Heamophilus Influenza B 2014-01-23 00:00:00 Completed [facility] HEPATITIS A 2014-01-23 00:00:00 Completed [facility] Heamophilus Influenza B 2014-01-23 00:00:00 Completed [facility] HEPATITIS A 2014-01-23 00:00:00 Completed [facility] Heamophilus Influenza B 2014-01-23 00:00:00 Completed [facility] HEPATITIS A 2014-01-23 00:00:00 Completed [facility] Heamophilus Influenza B 2014-01-23 00:00:00 Completed [facility] HEPATITIS A 2014-01-23 00:00:00 Completed [facility] Heamophilus Influenza B 2014-01-23 00:00:00 Completed [facility] HEPATITIS A 2014-01-23 00:00:00 Completed [facility] Heamophilus Influenza B 2014-01-23 00:00:00 Completed [facility] HEPATITIS A 2014-01-23 00:00:00 Completed [facility] Heamophilus Influenza B 2014-01-23 00:00:00 Completed [facility] HEPATITIS A 2014-01-23 00:00:00 Completed [facility] Heamophilus Influenza B 2014-01-23 00:00:00 Completed [facility] HEPATITIS A 2014-01-23 00:00:00 Completed [facility] Heamophilus Influenza B 2014-01-23 00:00:00 Completed [facility] HEPATITIS A 2014-01-23 00:00:00 Completed [facility] Heamophilus Influenza B 2014-01-23 00:00:00 Completed [facility] HEPATITIS A 2014-01-23 00:00:00 Completed [facility] Heamophilus Influenza B 2014-01-23 00:00:00 Completed [facility] HEPATITIS A 2014-01-23 00:00:00 Completed [facility] Heamophilus Influenza B 2014-01-23 00:00:00 Completed [facility] HEPATITIS A 2014-01-23 00:00:00 Completed [facility] Heamophilus Influenza B 2014-01-23 00:00:00 Completed [facility] HEPATITIS A 2014-01-23 00:00:00 Completed [facility] Heamophilus Influenza B 2014-01-23 00:00:00 Completed [facility] HEPATITIS A 2014-01-23 00:00:00 Completed [facility] Heamophilus Influenza B 2014-01-23 00:00:00 Completed [facility] HEPATITIS A 2014-01-23 00:00:00 Completed [facility] Heamophilus Influenza B 2014-01-23 00:00:00 Completed [facility] HEPATITIS A 2014-01-23 00:00:00 Completed [facility] Hib (PRP-T) Hib (PRP-T) 2014-01-23 00:00:00 Completed [facility] Heamophilus Influenza B 2014-01-23 00:00:00 Completed [facility] HEPATITIS A 2014-01-23 00:00:00 Completed [facility] Heamophilus Influenza B 2014-01-23 00:00:00 Completed [facility] HEPATITIS A 2014-01-23 00:00:00 Completed [facility] Heamophilus Influenza B 2014-01-23 00:00:00 Completed [facility] HEPATITIS A 2014-01-23 00:00:00 Completed [facility] Heamophilus Influenza B 2014-01-23 00:00:00 Completed [facility] HEPATITIS A 2014-01-23 00:00:00 Completed [facility] Heamophilus Influenza B 2014-01-23 00:00:00 Completed [facility] HEPATITIS A 2014-01-23 00:00:00 Completed [facility] Hep B, adult Hep B, adult 2014-01-23 00:00:00 Completed [facility] Epic Heamophilus Influenza B 2014-01-23 00:00:00 Completed [facility] HEPATITIS A 2014-01-23 00:00:00 Completed [facility] Heamophilus Influenza B 2014-01-23 00:00:00 Completed [facility] HEPATITIS A 2014-01-23 00:00:00 Completed [facility] Heamophilus Influenza B 2014-01-23 00:00:00 Completed [facility] HEP B, Adult Dosage 2014-01-23 00:00:00 Completed [facility] Hep B, Adol or Pedi Dosage 2014-01-23 00:00:00 Completed [facility] IPV 2014-01-23 00:00:00 Completed [facility] Hep A, ped/adol, 2 dose Hep A, ped/adol, 2 dose 2014-01-23 00:00:00 Completed [facility] IPV IPV 2014-01-23 00:00:00 Completed [facility] DTAP 2013-04-12 00:00:00 Completed [facility] Polio (IPV/OPV) 2013-04-12 00:00:00 Completed [facility] Pneumococcal 7 Conjugate, PCV7 (Prevnar7) 2013-04-12 00:00:00 Completed [facility] DTAP 2013-04-12 00:00:00 Completed [facility] Polio (IPV/OPV) 2013-04-12 00:00:00 Completed [facility] Pneumococcal 7 Conjugate, PCV7 (Prevnar7) 2013-04-12 00:00:00 Completed [facility] DTAP 2013-04-12 00:00:00 Completed [facility] Polio (IPV/OPV) 2013-04-12 00:00:00 Completed [facility] Pneumococcal 7 Conjugate, PCV7 (Prevnar7) 2013-04-12 00:00:00 Completed [facility] DTAP 2013-04-12 00:00:00 Completed [facility] Polio (IPV/OPV) 2013-04-12 00:00:00 Completed [facility] Pneumococcal 7 Conjugate, PCV7 (Prevnar7) 2013-04-12 00:00:00 Completed [facility] DTAP 2013-04-12 00:00:00 Completed [facility] Polio (IPV/OPV) 2013-04-12 00:00:00 Completed [facility] Pneumococcal 7 Conjugate, PCV7 (Prevnar7) 2013-04-12 00:00:00 Completed [facility] DTAP 2013-04-12 00:00:00 Completed [facility] Polio (IPV/OPV) 2013-04-12 00:00:00 Completed [facility] Pneumococcal 7 Conjugate, PCV7 (Prevnar7) 2013-04-12 00:00:00 Completed [facility] DTAP 2013-04-12 00:00:00 Completed [facility] Polio (IPV/OPV) 2013-04-12 00:00:00 Completed [facility] Pneumococcal 7 Conjugate, PCV7 (Prevnar7) 2013-04-12 00:00:00 Completed [facility] DTAP 2013-04-12 00:00:00 Completed [facility] Pneumococcal Conjugate PCV 7 Pneumococcal Conjugate PCV 7 2013-04-12 00:00:00 Completed [facility] Polio (IPV/OPV) 2013-04-12 00:00:00 Completed [facility] Pneumococcal 7 Conjugate, PCV7 (Prevnar7) 2013-04-12 00:00:00 Completed [facility] DTAP 2013-04-12 00:00:00 Completed [facility] Polio (IPV/OPV) 2013-04-12 00:00:00 Completed [facility] Pneumococcal 7 Conjugate, PCV7 (Prevnar7) 2013-04-12 00:00:00 Completed [facility] DTAP 2013-04-12 00:00:00 Completed [facility] Polio (IPV/OPV) 2013-04-12 00:00:00 Completed [facility] Pneumococcal 7 Conjugate, PCV7 (Prevnar7) 2013-04-12 00:00:00 Completed [facility] DTAP 2013-04-12 00:00:00 Completed [facility] Polio (IPV/OPV) 2013-04-12 00:00:00 Completed [facility] Polio, Unspecified Polio, Unspecified 2013-04-12 00:00:00 Completed [facility] Pneumococcal 7 Conjugate, PCV7 (Prevnar7) 2013-04-12 00:00:00 Completed [facility] DTAP 2013-04-12 00:00:00 Completed [facility] Polio (IPV/OPV) 2013-04-12 00:00:00 Completed [facility] Pneumococcal 7 Conjugate, PCV7 (Prevnar7) 2013-04-12 00:00:00 Completed [facility] DTAP 2013-04-12 00:00:00 Completed [facility] Polio (IPV/OPV) 2013-04-12 00:00:00 Completed [facility] Pneumococcal 7 Conjugate, PCV7 (Prevnar7) 2013-04-12 00:00:00 Completed [facility] DTAP 2013-04-12 00:00:00 Completed [facility] Polio (IPV/OPV) 2013-04-12 00:00:00 Completed [facility] Pneumococcal 7 Conjugate, PCV7 (Prevnar7) 2013-04-12 00:00:00 Completed [facility] DTaP DTaP 2013-04-12 00:00:00 Completed [facility] DTAP 2013-04-12 00:00:00 Completed [facility] Polio (IPV/OPV) 2013-04-12 00:00:00 Completed [facility] Pneumococcal 7 Conjugate, PCV7 (Prevnar7) 2013-04-12 00:00:00 Completed [facility] DTAP 2013-04-12 00:00:00 Completed [facility] Polio (IPV/OPV) 2013-04-12 00:00:00 Completed [facility] Pneumococcal 7 Conjugate, PCV7 (Prevnar7) 2013-04-12 00:00:00 Completed [facility] DTAP 2013-04-12 00:00:00 Completed [facility] Polio (IPV/OPV) 2013-04-12 00:00:00 Completed [facility] Pneumococcal 7 Conjugate, PCV7 (Prevnar7) 2013-04-12 00:00:00 Completed [facility] DTAP 2013-04-12 00:00:00 Completed [facility] IPV IPV 2013-04-12 00:00:00 Completed [facility] Polio (IPV/OPV) 2013-04-12 00:00:00 Completed [facility] Pneumococcal 7 Conjugate, PCV7 (Prevnar7) 2013-04-12 00:00:00 Completed [facility] DTAP 2013-04-12 00:00:00 Completed [facility] Polio (IPV/OPV) 2013-04-12 00:00:00 Completed [facility] Pneumococcal 7 Conjugate, PCV7 (Prevnar7) 2013-04-12 00:00:00 Completed [facility] DTAP 2013-04-12 00:00:00 Completed [facility] Polio (IPV/OPV) 2013-04-12 00:00:00 Completed [facility] Pneumococcal 7 Conjugate, PCV7 (Prevnar7) 2013-04-12 00:00:00 Completed [facility] DTAP 2013-04-12 00:00:00 Completed [facility] Polio (IPV/OPV) 2013-04-12 00:00:00 Completed [facility] Pneumococcal 7 Conjugate, PCV7 (Prevnar7) 2013-04-12 00:00:00 Completed [facility] DTAP 2013-04-12 00:00:00 Completed [facility] Polio (IPV/OPV) 2013-04-12 00:00:00 Completed [facility] Pneumococcal 7 Conjugate, PCV7 (Prevnar7) 2013-04-12 00:00:00 Completed [facility] DTAP 2013-04-12 00:00:00 Completed [facility] Polio (IPV/OPV) 2013-04-12 00:00:00 Completed [facility] Pneumococcal 7 Conjugate, PCV7 (Prevnar7) 2013-04-12 00:00:00 Completed [facility] DTAP 2013-04-12 00:00:00 Completed [facility] Polio (IPV/OPV) 2013-04-12 00:00:00 Completed [facility] Pneumococcal 7 Conjugate, PCV7 (Prevnar7) 2013-04-12 00:00:00 Completed [facility] DTAP 2013-04-12 00:00:00 Completed [facility] Polio (IPV/OPV) 2013-04-12 00:00:00 Completed [facility] Pneumococcal 7 Conjugate, PCV7 (Prevnar7) 2013-04-12 00:00:00 Completed [facility] DTAP 2013-04-12 00:00:00 Completed [facility] Polio (IPV/OPV) 2013-04-12 00:00:00 Completed [facility] Pneumococcal 7 Conjugate, PCV7 (Prevnar7) 2013-04-12 00:00:00 Completed [facility] DTAP 2013-04-12 00:00:00 Completed [facility] Polio (IPV/OPV) 2013-04-12 00:00:00 Completed [facility] Pneumococcal 7 Conjugate, PCV7 (Prevnar7) 2013-04-12 00:00:00 Completed [facility] DTAP 2013-04-12 00:00:00 Completed [facility] Polio (IPV/OPV) 2013-04-12 00:00:00 Completed [facility] Pneumococcal 7 Conjugate, PCV7 (Prevnar7) 2013-04-12 00:00:00 Completed [facility] DTAP 2013-04-12 00:00:00 Completed [facility] Polio (IPV/OPV) 2013-04-12 00:00:00 Completed [facility] Pneumococcal 7 Conjugate, PCV7 (Prevnar7) 2013-04-12 00:00:00 Completed [facility] DTAP 2013-04-12 00:00:00 Completed [facility] Polio (IPV/OPV) 2013-04-12 00:00:00 Completed [facility] Pneumococcal 7 Conjugate, PCV7 (Prevnar7) 2013-04-12 00:00:00 Completed [facility] DTaP, Unspecified Formulation 2013-04-12 00:00:00 Completed [facility] Pneumococcal 13 Conjugate, PCV13 (Prevnar 13) 2013-04-12 00:00:00 Completed [facility] IPV 2013-04-12 00:00:00 Completed [facility] Hep B, Adol or Pedi Dosage 2013-03-15 00:00:00 Completed [facility] Meningococcal Polysaccharide (groups A, C, Y and W-135) conjugate vaccine (MCV4P) 2013-03-15 00:00:00 Completed [facility] HEPATITIS A 2013-03-15 00:00:00 Completed [facility] Hep B, Adol or Pedi Dosage 2013-03-15 00:00:00 Completed [facility] Meningococcal Polysaccharide (groups A, C, Y and W-135) conjugate vaccine (MCV4P) 2013-03-15 00:00:00 Completed [facility] HEPATITIS A 2013-03-15 00:00:00 Completed [facility] Hep B, Adol or Pedi Dosage 2013-03-15 00:00:00 Completed [facility] Meningococcal Polysaccharide (groups A, C, Y and W-135) conjugate vaccine (MCV4P) 2013-03-15 00:00:00 Completed [facility] HEPATITIS A 2013-03-15 00:00:00 Completed [facility] Hep B, Adol or Pedi Dosage 2013-03-15 00:00:00 Completed [facility] Meningococcal Polysaccharide (groups A, C, Y and W-135) conjugate vaccine (MCV4P) 2013-03-15 00:00:00 Completed [facility] HEPATITIS A 2013-03-15 00:00:00 Completed [facility] Hep B, Adol or Pedi Dosage 2013-03-15 00:00:00 Completed [facility] Meningococcal Polysaccharide (groups A, C, Y and W-135) conjugate vaccine (MCV4P) 2013-03-15 00:00:00 Completed [facility] HEPATITIS A 2013-03-15 00:00:00 Completed [facility] Hep B, Adol or Pedi Dosage 2013-03-15 00:00:00 Completed [facility] Meningococcal Polysaccharide (groups A, C, Y and W-135) conjugate vaccine (MCV4P) 2013-03-15 00:00:00 Completed [facility] HEPATITIS A 2013-03-15 00:00:00 Completed [facility] Hep B, Adol or Pedi Dosage 2013-03-15 00:00:00 Completed [facility] Meningococcal Polysaccharide (groups A, C, Y and W-135) conjugate vaccine (MCV4P) 2013-03-15 00:00:00 Completed [facility] HEPATITIS A 2013-03-15 00:00:00 Completed [facility] Hep B, Adol or Pedi Dosage 2013-03-15 00:00:00 Completed [facility] Meningococcal Polysaccharide (groups A, C, Y and W-135) conjugate vaccine (MCV4P) 2013-03-15 00:00:00 Completed [facility] HEPATITIS A 2013-03-15 00:00:00 Completed [facility] Hep B, Adol or Pedi Dosage 2013-03-15 00:00:00 Completed [facility] Meningococcal Polysaccharide (groups A, C, Y and W-135) conjugate vaccine (MCV4P) 2013-03-15 00:00:00 Completed [facility] HEPATITIS A 2013-03-15 00:00:00 Completed [facility] Hep B, Adol or Pedi Dosage 2013-03-15 00:00:00 Completed [facility] Meningococcal Polysaccharide (groups A, C, Y and W-135) conjugate vaccine (MCV4P) 2013-03-15 00:00:00 Completed [facility] HEPATITIS A 2013-03-15 00:00:00 Completed [facility] Hep B, Adol or Pedi Dosage 2013-03-15 00:00:00 Completed [facility] Meningococcal Polysaccharide (groups A, C, Y and W-135) conjugate vaccine (MCV4P) 2013-03-15 00:00:00 Completed [facility] HEPATITIS A 2013-03-15 00:00:00 Completed [facility] Hep B, Adol or Pedi Dosage 2013-03-15 00:00:00 Completed [facility] Meningococcal Polysaccharide (groups A, C, Y and W-135) conjugate vaccine (MCV4P) 2013-03-15 00:00:00 Completed [facility] HEPATITIS A 2013-03-15 00:00:00 Completed [facility] Hep B, Adol or Pedi Dosage 2013-03-15 00:00:00 Completed [facility] Meningococcal Polysaccharide (groups A, C, Y and W-135) conjugate vaccine (MCV4P) 2013-03-15 00:00:00 Completed [facility] HEPATITIS A 2013-03-15 00:00:00 Completed [facility] Hep B, Adol or Pedi Dosage 2013-03-15 00:00:00 Completed [facility] Meningococcal Polysaccharide (groups A, C, Y and W-135) conjugate vaccine (MCV4P) 2013-03-15 00:00:00 Completed [facility] HEPA,NOS 2013-03-15 00:00:00 Completed [facility] Hep B, Adolescent or Pediatric Hep B, Adolescent or Pediatric 2013-03-15 00:00:00 Completed [facility] Hep A, ped/adol, 2 dose Hep A, ped/adol, 2 dose 2013-03-15 00:00:00 Completed [facility] Meningococcal MCV4P Meningococcal MCV4P 00:00:00 Completed [facility] HEPATITIS A 2013-03-15 00:00:00 Completed [facility] Hep B, Adol or Pedi Dosage 2013-03-15 00:00:00 Completed [facility] Meningococcal Polysaccharide (groups A, C, Y and W-135) conjugate vaccine (MCV4P) 2013-03-15 00:00:00 Completed [facility] HEPATITIS A 2013-03-15 00:00:00 Completed [facility] Hep B, Adol or Pedi Dosage 2013-03-15 00:00:00 Completed [facility] Meningococcal Polysaccharide (groups A, C, Y and W-135) conjugate vaccine (MCV4P) 2013-03-15 00:00:00 Completed [facility] HEPATITIS A 2013-03-15 00:00:00 Completed [facility] Hep B, Adol or Pedi Dosage 2013-03-15 00:00:00 Completed [facility] Meningococcal Polysaccharide (groups A, C, Y and W-135) conjugate vaccine (MCV4P) 2013-03-15 00:00:00 Completed [facility] HEPATITIS A 2013-03-15 00:00:00 Completed [facility] Hep B, Adol or Pedi Dosage 2013-03-15 00:00:00 Completed [facility] Meningococcal Polysaccharide (groups A, C, Y and W-135) conjugate vaccine (MCV4P) 2013-03-15 00:00:00 Completed [facility] HEPATITIS A 2013-03-15 00:00:00 Completed [facility] Hep B, Adol or Pedi Dosage 2013-03-15 00:00:00 Completed [facility] Meningococcal Polysaccharide (groups A, C, Y and W-135) conjugate vaccine (MCV4P) 2013-03-15 00:00:00 Completed [facility] HEPATITIS A 2013-03-15 00:00:00 Completed [facility] Hep B, Adol or Pedi Dosage 2013-03-15 00:00:00 Completed [facility] Meningococcal Polysaccharide (groups A, C, Y and W-135) conjugate vaccine (MCV4P) 2013-03-15 00:00:00 Completed [facility] HEPATITIS A 2013-03-15 00:00:00 Completed [facility] Hep B, Adol or Pedi Dosage 2013-03-15 00:00:00 Completed [facility] Meningococcal Polysaccharide (groups A, C, Y and W-135) conjugate vaccine (MCV4P) 2013-03-15 00:00:00 Completed [facility] HEPATITIS A 2013-03-15 00:00:00 Completed [facility] Hep B, Adol or Pedi Dosage 2013-03-15 00:00:00 Completed [facility] Meningococcal Polysaccharide (groups A, C, Y and W-135) conjugate vaccine (MCV4P) 2013-03-15 00:00:00 Completed [facility] HEPATITIS A 2013-03-15 00:00:00 Completed [facility] Hep B, Adol or Pedi Dosage 2013-03-15 00:00:00 Completed [facility] Meningococcal Polysaccharide (groups A, C, Y and W-135) conjugate vaccine (MCV4P) 2013-03-15 00:00:00 Completed [facility] HEPATITIS A 2013-03-15 00:00:00 Completed [facility] Hep B, Adol or Pedi Dosage 2013-03-15 00:00:00 Completed [facility] Meningococcal Polysaccharide (groups A, C, Y and W-135) conjugate vaccine (MCV4P) 2013-03-15 00:00:00 Completed [facility] HEPATITIS A 2013-03-15 00:00:00 Completed [facility] Hep B, Adol or Pedi Dosage 2013-03-15 00:00:00 Completed [facility] Meningococcal Polysaccharide (groups A, C, Y and W-135) conjugate vaccine (MCV4P) 2013-03-15 00:00:00 Completed [facility] HEPATITIS A 2013-03-15 00:00:00 Completed [facility] Hep B, Adol or Pedi Dosage 2013-03-15 00:00:00 Completed [facility] Meningococcal Polysaccharide (groups A, C, Y and W-135) conjugate vaccine (MCV4P) 2013-03-15 00:00:00 Completed [facility] HEPATITIS A 2013-03-15 00:00:00 Completed [facility] Hep B, Adol or Pedi Dosage 2013-03-15 00:00:00 Completed [facility] Meningococcal Polysaccharide (groups A, C, Y and W-135) conjugate vaccine (MCV4P) 2013-03-15 00:00:00 Completed [facility] HEPATITIS A 2013-03-15 00:00:00 Completed [facility] Hep B, Adol or Pedi Dosage 2013-03-15 00:00:00 Completed [facility] Meningococcal Polysaccharide (groups A, C, Y and W-135) conjugate vaccine (MCV4P) 2013-03-15 00:00:00 Completed [facility] HEPATITIS A 2013-03-15 00:00:00 Completed [facility] Hep B, Adol or Pedi Dosage 2013-03-15 00:00:00 Completed [facility] Meningococcal Polysaccharide (groups A, C, Y and W-135) conjugate vaccine (MCV4P) 2013-03-15 00:00:00 Completed [facility] HEPATITIS A 2013-03-15 00:00:00 Completed [facility] Hep B, Adol or Pedi Dosage 2013-03-15 00:00:00 Completed [facility] Meningococcal Polysaccharide (groups A, C, Y and W-135) conjugate vaccine (MCV4P) 2013-03-15 00:00:00 Completed [facility] HEPATITIS A 2013-03-15 00:00:00 Completed [facility] Pneumococcal 13 Conjugate, PCV13 (Prevnar 13) 2013-01-24 00:00:00 Completed [facility] HIB 4 Dose Schedule 2013-01-24 00:00:00 Completed [facility] Hep B, Dtap, Polio 2013-01-24 00:00:00 Completed [facility] Pneumococcal 13 Conjugate, PCV13 (Prevnar 13) 2013-01-24 00:00:00 Completed [facility] HIB 4 Dose Schedule 2013-01-24 00:00:00 Completed [facility] Hep B, Dtap, Polio 2013-01-24 00:00:00 Completed [facility] Pneumococcal 13 Conjugate, PCV13 (Prevnar 13) 2013-01-24 00:00:00 Completed [facility] HIB 4 Dose Schedule 2013-01-24 00:00:00 Completed [facility] Hep B, Dtap, Polio 2013-01-24 00:00:00 Completed [facility] Pneumococcal 13 Conjugate, PCV13 (Prevnar 13) 2013-01-24 00:00:00 Completed [facility] HIB 4 Dose Schedule 2013-01-24 00:00:00 Completed [facility] Hep B, Dtap, Polio 2013-01-24 00:00:00 Completed [facility] Pneumococcal 13 Conjugate, PCV13 (Prevnar 13) 2013-01-24 00:00:00 Completed [facility] HIB 4 Dose Schedule 2013-01-24 00:00:00 Completed [facility] Hep B, Dtap, Polio 2013-01-24 00:00:00 Completed [facility] Pneumococcal 13 Conjugate, PCV13 (Prevnar 13) 2013-01-24 00:00:00 Completed [facility] HIB 4 Dose Schedule 2013-01-24 00:00:00 Completed [facility] Hep B, Dtap, Polio 2013-01-24 00:00:00 Completed [facility] Pneumococcal 13 Conjugate, PCV13 (Prevnar 13) 2013-01-24 00:00:00 Completed [facility] HIB 4 Dose Schedule 2013-01-24 00:00:00 Completed [facility] Hep B, Dtap, Polio 2013-01-24 00:00:00 Completed [facility] Pneumococcal 13 Conjugate, PCV13 (Prevnar 13) 2013-01-24 00:00:00 Completed [facility] HIB 4 Dose Schedule 2013-01-24 00:00:00 Completed [facility] Hep B, Dtap, Polio 2013-01-24 00:00:00 Completed [facility] Pneumococcal 13 Conjugate, PCV13 (Prevnar 13) 2013-01-24 00:00:00 Completed [facility] HIB 4 Dose Schedule 2013-01-24 00:00:00 Completed [facility] Hep B, Dtap, Polio 2013-01-24 00:00:00 Completed [facility] Pneumococcal 13 Conjugate, PCV13 (Prevnar 13) 2013-01-24 00:00:00 Completed [facility] HIB 4 Dose Schedule 2013-01-24 00:00:00 Completed [facility] Hep B, Dtap, Polio 2013-01-24 00:00:00 Completed [facility] Pneumococcal 13 Conjugate, PCV13 (Prevnar 13) 2013-01-24 00:00:00 Completed [facility] HIB 4 Dose Schedule 2013-01-24 00:00:00 Completed [facility] Hep B, Dtap, Polio 2013-01-24 00:00:00 Completed [facility] Pneumococcal 13 Conjugate, PCV13 (Prevnar 13) 2013-01-24 00:00:00 Completed [facility] HIB 4 Dose Schedule 2013-01-24 00:00:00 Completed [facility] Hep B, Dtap, Polio 2013-01-24 00:00:00 Completed [facility] Pneumococcal 13 Conjugate, PCV13 (Prevnar 13) 2013-01-24 00:00:00 Completed [facility] HIB 4 Dose Schedule 2013-01-24 00:00:00 Completed [facility] Hep B, Dtap, Polio 2013-01-24 00:00:00 Completed [facility] Pneumococcal 13 Conjugate, PCV13 (Prevnar 13) 2013-01-24 00:00:00 Completed [facility] HIB 4 Dose Schedule 2013-01-24 00:00:00 Completed [facility] Hep B, Dtap, Polio 2013-01-24 00:00:00 Completed [facility] Pneumococcal 13 Conjugate, PCV13 (Prevnar 13) 2013-01-24 00:00:00 Completed [facility] HIB 4 Dose Schedule 2013-01-24 00:00:00 Completed [facility] Hep B, Dtap, Polio 2013-01-24 00:00:00 Completed [facility] Pneumococcal 13 Conjugate, PCV13 (Prevnar 13) 2013-01-24 00:00:00 Completed [facility] HIB 4 Dose Schedule 2013-01-24 00:00:00 Completed [facility] Hep B, Dtap, Polio 2013-01-24 00:00:00 Completed [facility] Pneumococcal 13 Conjugate, PCV13 (Prevnar 13) 2013-01-24 00:00:00 Completed [facility] HIB 4 Dose Schedule 2013-01-24 00:00:00 Completed [facility] Hep B, Dtap, Polio 2013-01-24 00:00:00 Completed [facility] Pneumococcal 13 Conjugate, PCV13 (Prevnar 13) 2013-01-24 00:00:00 Completed [facility] HIB 4 Dose Schedule 2013-01-24 00:00:00 Completed [facility] Hep B, Dtap, Polio 2013-01-24 00:00:00 Completed [facility] Pneumococcal 13 Conjugate, PCV13 (Prevnar 13) 2013-01-24 00:00:00 Completed [facility] HIB 4 Dose Schedule 2013-01-24 00:00:00 Completed [facility] Hep B, Dtap, Polio 2013-01-24 00:00:00 Completed [facility] Pneumococcal 13 Conjugate, PCV13 (Prevnar 13) 2013-01-24 00:00:00 Completed [facility] HIB 4 Dose Schedule 2013-01-24 00:00:00 Completed [facility] Hep B, Dtap, Polio 2013-01-24 00:00:00 Completed [facility] Pneumococcal 13 Conjugate, PCV13 (Prevnar 13) 2013-01-24 00:00:00 Completed [facility] HIB 4 Dose Schedule 2013-01-24 00:00:00 Completed [facility] Hep B, Dtap, Polio 2013-01-24 00:00:00 Completed [facility] Pneumococcal 13 Conjugate, PCV13 (Prevnar 13) 2013-01-24 00:00:00 Completed [facility] HIB 4 Dose Schedule 2013-01-24 00:00:00 Completed [facility] Hep B, Dtap, Polio 2013-01-24 00:00:00 Completed [facility] Pneumococcal 13 Conjugate, PCV13 (Prevnar 13) 2013-01-24 00:00:00 Completed [facility] HIB 4 Dose Schedule 2013-01-24 00:00:00 Completed [facility] Hep B, Dtap, Polio 2013-01-24 00:00:00 Completed [facility] Pneumococcal 13 Conjugate, PCV13 (Prevnar 13) 2013-01-24 00:00:00 Completed [facility] HIB 4 Dose Schedule 2013-01-24 00:00:00 Completed [facility] Hep B, Dtap, Polio 2013-01-24 00:00:00 Completed [facility] Pneumococcal 13 Conjugate, PCV13 (Prevnar 13) 2013-01-24 00:00:00 Completed [facility] HIB 4 Dose Schedule 2013-01-24 00:00:00 Completed [facility] Hep B, Dtap, Polio 2013-01-24 00:00:00 Completed [facility] Pneumococcal 13 Conjugate, PCV13 (Prevnar 13) 2013-01-24 00:00:00 Completed [facility] HIB 4 Dose Schedule 2013-01-24 00:00:00 Completed [facility] Hep B, Dtap, Polio 2013-01-24 00:00:00 Completed [facility] Pneumococcal 13 Conjugate, PCV13 (Prevnar 13) 2013-01-24 00:00:00 Completed [facility] HIB 4 Dose Schedule 2013-01-24 00:00:00 Completed [facility] Hep B, Dtap, Polio 2013-01-24 00:00:00 Completed [facility] Pneumococcal 13 Conjugate, PCV13 (Prevnar 13) 2013-01-24 00:00:00 Completed [facility] HIB 4 Dose Schedule 2013-01-24 00:00:00 Completed [facility] Hep B, Dtap, Polio 2013-01-24 00:00:00 Completed [facility] Pneumococcal 13 Conjugate, PCV13 (Prevnar 13) 2013-01-24 00:00:00 Completed [facility] HIB 4 Dose Schedule 2013-01-24 00:00:00 Completed [facility] Hep B, Dtap, Polio 2013-01-24 00:00:00 Completed [facility] Pneumococcal 13 Conjugate, PCV13 (Prevnar 13) 2013-01-24 00:00:00 Completed [facility] HIB 4 Dose Schedule 2013-01-24 00:00:00 Completed [facility] Hep B, Dtap, Polio 2013-01-24 00:00:00 Completed [facility] Hib-HbOC 2013-01-24 00:00:00 Completed [facility] Pneumococcal Conjugate PCV 13 Pneumococcal Conjugate PCV 13 2013-01-24 00:00:00 Completed [facility] Hib (PRP-T) Hib (PRP-T) 2013-01-24 00:00:00 Completed [facility] DTaP / Hep B / IPV DTaP / Hep B / IPV 2013-01-24 00:00:00 Completed [facility] Pneumococcal 13 Conjugate, PCV13 (Prevnar 13) 2012-06-13 00:00:00 Completed [facility] Pneumococcal Conjugate PCV 13 Pneumococcal Conjugate PCV 13 2012-06-13 00:00:00 Completed [facility] DTAP 2012-05-09 00:00:00 Completed [facility] DTaP, Unspecified Formulation 2012-05-09 00:00:00 Completed [facility] DTaP, Unspecified DTaP, Unspecified 2012-05-09 00:00:00 Completed [facility] Flu Whole Virus 2010-07-30 00:00:00 Completed [facility] Influenza, seasonal, injectable, preservative free Influenza, seasonal, injectable, preservative free 2009-08-21 00:00:00 Completed [facility] Flu Trivalent 2009-08-21 00:00:00 Completed [facility] DTaP, Unspecified DTaP, Unspecified 2006-06-22 00:00:00 Completed [facility] Hep A, ped/adol, 2 dose Hep A, ped/adol, 2 dose 2006-06-22 00:00:00 Completed [facility] DTaP, Unspecified Formulation 2006-06-22 00:00:00 Completed [facility] HEPATITIS A 2006-06-22 00:00:00 Completed [facility] Pneumococcal Conjugate PCV 7 Pneumococcal Conjugate PCV 7 2005-06-21 00:00:00 Completed [facility] Hep A, ped/adol, 2 dose Hep A, ped/adol, 2 dose 2005-06-21 00:00:00 Completed [facility] HEPATITIS A 2005-06-21 00:00:00 Completed [facility] Pneumococcal 7 Conjugate, PCV7 (Prevnar7) 2005-06-21 00:00:00 Completed [facility] MMR MMR 2005-04-22 00:00:00 [facility] H[facility] (PRP-T) 2005-04-22 00:00:00 Completed [facility] Epic IPV IPV 2005-04-22 00:00:00 Completed [facility] HIB 4 Dose Schedule 2005-04-22 00:00:00 Completed [facility] MMR 2005-04-22 00:00:00 Completed [facility] IPV 2005-04-22 00:00:00 Completed [facility] Varicella Varicella 2005-02-14 00:00:00 Completed [facility] Epic DTaP, Unspecified DTaP, Unspecified 2005-02-14 00:00:00 Completed [facility] Epic Hib (PRP-T) Hib (PRP-T) 2005-02-14 00:00:00 Completed [facility] IPV IPV 2005-02-14 00:00:00 Completed [facility] MMR MMR 2005-02-14 00:00:00 Completed [facility] DTaP, Unspecified Formulation 2005-02-14 00:00:00 Completed [facility] HIB 4 Dose Schedule 2005-02-14 00:00:00 Completed [facility] MMR 2005-02-14 00:00:00 Completed [facility] IPV 2005-02-14 00:00:00 Completed [facility] Varicella (varivax)(chicken pox) 2005-02-14 00:00:00 Completed [facility] DTaP, Unspecified DTaP, Unspecified 2001-10-10 00:00:00 Completed [facility] Hib (PRP-T) Hib (PRP-T) 2001-10-10 00:00:00 Completed [facility] Hep B, Adolescent or Pediatric Hep B, Adolescent or Pediatric 2001-10-10 00:00:00 Completed [facility] DTaP, Unspecified Formulation 2001-10-10 00:00:00 Completed [facility] Hep B, Adol or Pedi Dosage 2001-10-10 00:00:00 Completed [facility] HIB 4 Dose Schedule 2001-10-10 00:00:00 Completed [facility] IPV 2001-10-10 00:00:00 Completed [facility] IPV IPV 2001-10-10 00:00:00 Completed [facility] DTaP, Unspecified Formulation 2001-03-01 00:00:00 Completed [facility] HIB 4 Dose Schedule 2001-03-01 00:00:00 Completed [facility] IPV 2001-03-01 00:00:00 Completed [facility] DTaP, Unspecified DTaP, Unspecified 2001-03-01 00:00:00 Completed [facility] Hib (PRP-T) Hib (PRP-T) 2001-03-01 00:00:00 Completed [facility] IPV IPV 2001-03-01 00:00:00 Completed [facility] Hep B, Adol or Pedi Dosage 2001-01-31 00:00:00 Completed [facility] Hep B, Adolescent or Pediatric Hep B, Adolescent or Pediatric 2001-01-31 00:00:00 Completed [facility] Hep B, Adol or Pedi Dosage 2000 00:00:00 Completed [facility] Hep B, Adolescent or Pediatric Hep B, Adolescent or Pediatric 2000 00:00:00 Completed [facility] Hep B, Dtap, Polio Unknown Completed [facility] Meningococcal Polysaccharide (groups A, C, Y and W-135) conjugate vaccine (MCV4P) Unknown Completed [facility] DTAP Unknown Completed [facility] Polio (IPV/OPV) Unknown Completed [facility] Pneumococcal 7 Conjugate, PCV7 (Prevnar7) Unknown Completed [facility] SARS-COV-2 COVID-19 PFIZER VACCINE Unknown Completed [facility] DTaP, Unspecified Formulation Unknown Completed [facility] Influenza Virus Vaccine Quad .5 mL IM 6+ MO (FLUZONE/FLULAVAL/FL UARIX) Unknown Completed [facility] Flu Trivalent Unknown Completed [facility] Flu Whole Virus Unknown Completed [facility] HEP B, Adult Dosage Unknown Completed [facility] HEPA,NOS Unknown Completed [facility] HEPATITIS A Unknown Completed [facility] Hep B, Adol or Pedi Dosage Unknown Completed [facility] Hib-HbOC Unknown Completed [facility] HIB 3 Dose Schedule Unknown Completed [facility] HIB 4 Dose Schedule Unknown Completed [facility] HPV9 Unknown Completed [facility] MMR Unknown Completed [facility] Proquad (MMR/VARICELLA) Unknown Completed [facility] Pneumococcal 13 Conjugate, PCV13 (Prevnar 13) Unknown Completed [facility] Pneumococcal Polysaccharide, PPSV23 (PNEUMOVAX) Unknown Completed [facility] IPV Unknown Completed [facility] Varicella (varivax)(chicken pox) Unknown Completed [facility] Hep B, Dtap, Polio Unknown Completed [facility] Meningococcal Polysaccharide (groups A, C, Y and W-135) conjugate vaccine (MCV4P) Unknown Completed [facility] DTAP Unknown Completed [facility] Polio (IPV/OPV) Unknown Completed [facility] Pneumococcal 7 Conjugate, PCV7 (Prevnar7) Unknown Completed [facility] SARS-COV-2 COVID-19 PFIZER VACCINE Unknown Completed [facility] DTaP, Unspecified Formulation Unknown Completed [facility] Influenza Virus Vaccine Quad .5 mL IM 6+ MO (FLUZONE/FLULAVAL/FL UARIX) Unknown Completed [facility] Flu Trivalent Unknown Completed [facility] Flu Whole Virus Unknown Completed [facility] HEP B, Adult Dosage Unknown Completed [facility] HEPA,NOS Unknown Completed [facility] HEPATITIS A Unknown Completed [facility] Hep B, Adol or Pedi Dosage Unknown Completed [facility] Hib-HbOC Unknown Completed [facility] HIB 3 Dose Schedule Unknown Completed [facility] HIB 4 Dose Schedule Unknown Completed [facility] HPV9 Unknown Completed [facility] MMR Unknown Completed [facility] Proquad (MMR/VARICELLA) Unknown Completed [facility] Pneumococcal 13 Conjugate, PCV13 (Prevnar 13) Unknown Completed [facility] Pneumococcal Polysaccharide, PPSV23 (PNEUMOVAX) Unknown Completed [facility] IPV Unknown Completed [facility] Varicella (varivax)(chicken pox) Unknown Completed [facility] Hep B, Dtap, Polio Unknown Completed [facility] Meningococcal Polysaccharide (groups A, C, Y and W-135) conjugate vaccine (MCV4P) Unknown Completed [facility] DTAP Unknown Completed [facility] Polio (IPV/OPV) Unknown Completed [facility] Pneumococcal 7 Conjugate, PCV7 (Prevnar7) Unknown Completed [facility] SARS-COV-2 COVID-19 PFIZER VACCINE Unknown Completed [facility] DTaP, Unspecified Formulation Unknown Completed [facility] Influenza Virus Vaccine Quad .5 mL IM 6+ MO (FLUZONE/FLULAVAL/FL UARIX) Unknown Completed [facility] Flu Trivalent Unknown Completed [facility] Flu Whole Virus Unknown Completed [facility] HEP B, Adult Dosage Unknown Completed [facility] HEPA,NOS Unknown Completed [facility] HEPATITIS A Unknown Completed [facility] Hep B, Adol or Pedi Dosage Unknown Completed [facility] Hib-HbOC Unknown Completed [facility] HIB 3 Dose Schedule Unknown Completed [facility] HIB 4 Dose Schedule Unknown Completed [facility] HPV9 Unknown Completed [facility] MMR Unknown Completed [facility] Proquad (MMR/VARICELLA) Unknown Completed [facility] Pneumococcal 13 Conjugate, PCV13 (Prevnar 13) Unknown Completed [facility] Pneumococcal Polysaccharide, PPSV23 (PNEUMOVAX) Unknown Completed [facility] IPV Unknown Completed [facility] Varicella (varivax)(chicken pox) Unknown Completed [facility] Hep B, Dtap, Polio Unknown Completed [facility] Meningococcal Polysaccharide (groups A, C, Y and W-135) conjugate vaccine (MCV4P) Unknown Completed [facility] DTAP Unknown Completed [facility] Polio (IPV/OPV) Unknown Completed [facility] Pneumococcal 7 Conjugate, PCV7 (Prevnar7) Unknown Completed [facility] SARS-COV-2 COVID-19 PFIZER VACCINE Unknown Completed [facility] DTaP, Unspecified Formulation Unknown Completed [facility] Influenza Virus Vaccine Quad .5 mL IM 6+ MO (FLUZONE/FLULAVAL/FL UARIX) Unknown Completed [facility] Flu Trivalent Unknown Completed [facility] Flu Whole Virus Unknown Completed [facility] HEP B, Adult Dosage Unknown Completed [facility] HEPA,NOS Unknown Completed [facility] HEPATITIS A Unknown Completed [facility] Hep B, Adol or Pedi Dosage Unknown Completed [facility] Hib-HbOC Unknown Completed [facility] HIB 3 Dose Schedule Unknown Completed [facility] HIB 4 Dose Schedule Unknown Completed [facility] HPV9 Unknown Completed [facility] MMR Unknown Completed [facility] Proquad (MMR/VARICELLA) Unknown Completed [facility] Pneumococcal 13 Conjugate, PCV13 (Prevnar 13) Unknown Completed [facility] Pneumococcal Polysaccharide, PPSV23 (PNEUMOVAX) Unknown Completed [facility] IPV Unknown Completed [facility] Varicella (varivax)(chicken pox) Unknown Completed [facility] TDAP Unknown Completed [facility] HIB PRP-D,booster Unknown Completed Un [facility] SARS-COV-2 COVID-19 PFIZER VACCINE Unknown Completed [facility] DTaP, Unspecified Formulation Unknown Completed [facility] Influenza Virus Vaccine Quad .5 mL IM 6+ MO (FLUZONE/FLULAVAL/FL UARIX) Unknown Completed [facility] Flu Trivalent Unknown Completed [facility] Flu Whole Virus Unknown Completed [facility] HEP B, Adult Dosage Unknown Completed [facility] HEPA,NOS Unknown Completed [facility] HEPATITIS A Unknown Completed [facility] Hep B, Adol or Pedi Dosage Unknown Completed [facility] Hib-HbOC Unknown Completed [facility] HIB 3 Dose Schedule Unknown Completed [facility] HIB 4 Dose Schedule Unknown Completed [facility] HPV9 Unknown Completed [facility] MMR Unknown Completed [facility] Proquad (MMR/VARICELLA) Unknown Completed [facility] Pneumococcal 13 Conjugate, PCV13 (Prevnar 13) Unknown Completed [facility] Pneumococcal Polysaccharide, PPSV23 (PNEUMOVAX) Unknown Completed [facility] IPV Unknown Completed [facility] Varicella (varivax)(chicken pox) Unknown Completed [facility] TDAP Unknown Completed [facility] HIB PRP-D,booster Unknown Completed Un [facility] DTAP Unknown Completed [facility] Meningococcal Polysaccharide (groups A, C, Y and W-135) conjugate vaccine (MCV4P) Unknown Completed [facility] Pneumococcal 7 Conjugate, PCV7 (Prevnar7) Unknown Completed [facility] Hep B, Dtap, Polio Unknown Completed [facility] Meningococcal Polysaccharide (groups A, C, Y and W-135) conjugate vaccine (MCV4P) Unknown Completed [facility] DTAP Unknown Completed [facility] Polio (IPV/OPV) Unknown Completed [facility] Pneumococcal 7 Conjugate, PCV7 (Prevnar7) Unknown Completed [facility] SARS-COV-2 COVID-19 PFIZER VACCINE Unknown Completed [facility] DTaP, Unspecified Formulation Unknown Completed [facility] Influenza Virus Vaccine Quad .5 mL IM 6+ MO (FLUZONE/FLULAVAL/FL UARIX) Unknown Completed [facility] Flu Trivalent Unknown Completed [facility] Flu Whole Virus Unknown Completed [facility] HEP B, Adult Dosage Unknown Completed [facility] HEPA,NOS Unknown Completed [facility] HEPATITIS A Unknown Completed [facility] Hep B, Adol or Pedi Dosage Unknown Completed [facility] Hib-HbOC Unknown Completed [facility] HIB 3 Dose Schedule Unknown Completed [facility] HIB 4 Dose Schedule Unknown Completed [facility] HPV9 Unknown Completed [facility] MMR Unknown Completed [facility] Proquad (MMR/VARICELLA) Unknown Completed [facility] Pneumococcal 13 Conjugate, PCV13 (Prevnar 13) Unknown Completed [facility] Pneumococcal Polysaccharide, PPSV23 (PNEUMOVAX) Unknown Completed [facility] IPV Unknown Completed [facility] Varicella (varivax)(chicken pox) Unknown Completed [facility] TDAP Unknown Completed [facility] HIB PRP-D,booster Unknown [facility], Dtap, Polio Unknown Completed [facility] Polio (IPV/OPV) Unknown Completed [facility] Hep B, Dtap, Polio Unknown Completed [facility] Meningococcal Polysaccharide (groups A, C, Y and W-135) conjugate vaccine (MCV4P) Unknown Completed [facility] DTAP Unknown Completed [facility] Polio (IPV/OPV) Unknown Completed [facility] Pneumococcal 7 Conjugate, PCV7 (Prevnar7) Unknown Completed [facility] SARS-COV-2 COVID-19 PFIZER VACCINE Unknown Completed [facility] DTaP, Unspecified Formulation Unknown Completed [facility] Influenza Virus Vaccine Quad .5 mL IM 6+ MO (FLUZONE/FLULAVAL/FL UARIX) Unknown Completed [facility] Flu Trivalent Unknown Completed [facility] Flu Whole Virus Unknown Completed [facility] HEP B, Adult Dosage Unknown Completed [facility] HEPA,NOS Unknown Completed [facility] HEPATITIS A Unknown Completed [facility] Hep B, Adol or Pedi Dosage Unknown Completed [facility] Hib-HbOC Unknown Completed [facility] HIB 3 Dose Schedule Unknown Completed [facility] HIB 4 Dose Schedule Unknown Completed [facility] HPV9 Unknown Completed [facility] MMR Unknown Completed [facility] Proquad (MMR/VARICELLA) Unknown Completed [facility] Pneumococcal 13 Conjugate, PCV13 (Prevnar 13) Unknown Completed [facility] Pneumococcal Polysaccharide, PPSV23 (PNEUMOVAX) Unknown Completed [facility] IPV Unknown Completed [facility] Varicella (varivax)(chicken pox) Unknown Completed [facility] TDAP Unknown Completed [facility] HIB PRP-D,booster [facility], D[facility], Polio [facility] Completed [facility] Meningococcal Polysaccharide (groups A, C, Y and W-135) conjugate vaccine (MCV4P) Unknown Completed [facility] DTAP Unknown Completed [facility] Polio (IPV/OPV) Unknown Completed [facility] Pneumococcal 7 Conjugate, PCV7 (Prevnar7) Unknown Completed [facility] SARS-COV-2 COVID-19 PFIZER VACCINE Unknown Completed [facility] DTaP, Unspecified Formulation Unknown Completed [facility] Influenza Virus Vaccine Quad .5 mL IM 6+ MO (FLUZONE/FLULAVAL/FL UARIX) Unknown Completed [facility] Flu Trivalent Unknown Completed [facility] Flu Whole Virus Unknown Completed [facility] HEP B, Adult Dosage Unknown Completed [facility] HEPA,NOS Unknown Completed [facility] HEPATITIS A Unknown Completed [facility] Hep B, Adol or Pedi Dosage Unknown Completed [facility] Hib-HbOC Unknown Completed [facility] HIB 3 Dose Schedule Unknown Completed [facility] HIB 4 Dose Schedule Unknown Completed [facility] HPV9 Unknown Completed [facility] MMR Unknown Completed [facility] Proquad (MMR/VARICELLA) Unknown Completed [facility] Pneumococcal 13 Conjugate, PCV13 (Prevnar 13) Unknown Completed [facility] Pneumococcal Polysaccharide, PPSV23 (PNEUMOVAX) Unknown Completed [facility] IPV Unknown Completed [facility] Varicella (varivax)(chicken pox) Unknown Completed [facility] TDAP Unknown Completed [facility] HIB PRP-D,booster Unknown Completed [facility] SARS-COV-2 COVID-19 PFIZER VACCINE Unknown Completed [facility] DTaP, Unspecified Formulation Unknown Completed [facility] Influenza Virus Vaccine Quad .5 mL IM 6+ MO (FLUZONE/FLULAVAL/FL UARIX) Unknown Completed [facility] Flu Trivalent Unknown Completed [facility] Flu Whole Virus Unknown Completed [facility] HEP B, Adult Dosage Unknown Completed [facility] HEPA,NOS Unknown Completed [facility] HEPATITIS A Unknown Completed [facility] Hep B, Adol or Pedi Dosage Unknown Completed [facility] Hib-HbOC Unknown Completed [facility] HIB 3 Dose Schedule Unknown Completed [facility] HIB 4 Dose Schedule Unknown Completed [facility] HPV9 Unknown Completed [facility] MMR Unknown Completed [facility] Proquad (MMR/VARICELLA) Unknown Completed [facility] Pneumococcal 13 Conjugate, PCV13 (Prevnar 13) Unknown Completed [facility] Pneumococcal Polysaccharide, PPSV23 (PNEUMOVAX) Unknown Completed [facility] IPV Unknown Completed [facility] Varicella (varivax)(chicken pox) Unknown Completed [facility] TDAP Unknown Completed [facility] HIB PRP-D,booster Unknown Completed [facility] DTAP Unknown Completed [facility] Meningococcal Polysaccharide (groups A, C, Y and W-135) conjugate vaccine (MCV4P) Unknown Completed [facility] Pneumococcal 7 Conjugate, PCV7 (Prevnar7) Unknown Completed [facility] Hep B, Dtap, Polio Unknown Completed [facility] Meningococcal Polysaccharide (groups A, C, Y and W-135) conjugate vaccine (MCV4P) Unknown Completed [facility] DTAP Unknown Completed [facility] Polio (IPV/OPV) Unknown Completed [facility] Pneumococcal 7 Conjugate, PCV7 (Prevnar7) Unknown Completed [facility] SARS-COV-2 COVID-19 PFIZER VACCINE Unknown Completed [facility] DTaP, Unspecified Formulation Unknown Completed [facility] Influenza Virus Vaccine Quad .5 mL IM 6+ MO (FLUZONE/FLULAVAL/FL UARIX) Unknown Completed [facility] Flu Trivalent Unknown Completed [facility] Flu Whole Virus Unknown Completed [facility] HEP B, Adult Dosage Unknown Completed [facility] HEPA,NOS Unknown Completed [facility] HEPATITIS A Unknown Completed [facility] Hep B, Adol or Pedi Dosage Unknown Completed [facility] Hib-HbOC Unknown Completed [facility] HIB 3 Dose Schedule Unknown Completed [facility] HIB 4 Dose Schedule Unknown Completed [facility] HPV9 Unknown Completed [facility] MMR Unknown Completed [facility] Proquad (MMR/VARICELLA) Unknown Completed [facility] Pneumococcal 13 Conjugate, PCV13 (Prevnar 13) Unknown Completed [facility] Pneumococcal Polysaccharide, PPSV23 (PNEUMOVAX) Unknown Completed [facility] IPV Unknown Completed [facility] Varicella (varivax)(chicken pox) Unknown Completed [facility] TDAP Unknown Completed [facility] HIB PRP-D,booster Unknown Completed [facility] Hep B, Dtap, Polio Unknown Completed [facility] Polio (IPV/OPV) Unknown Completed [facility] Hep B, Dtap, Polio Unknown Completed [facility] Meningococcal Polysaccharide (groups A, C, Y and W-135) conjugate vaccine (MCV4P) Unknown Completed [facility] DTAP Unknown Completed [facility] Polio (IPV/OPV) Unknown Completed [facility] Pneumococcal 7 Conjugate, PCV7 (Prevnar7) Unknown Completed [facility] SARS-COV-2 COVID-19 PFIZER VACCINE Unknown Completed [facility] DTaP, Unspecified Formulation Unknown Completed [facility] Influenza Virus Vaccine Quad .5 mL IM 6+ MO (FLUZONE/FLULAVAL/FL UARIX) Unknown Completed [facility] Flu Trivalent Unknown Completed [facility] Flu Whole Virus Unknown Completed [facility] HEP B, Adult Dosage Unknown Completed [facility] HEPA,NOS Unknown Completed [facility] HEPATITIS A Unknown Completed [facility] Hep B, Adol or Pedi Dosage Unknown Completed [facility] Hib-HbOC Unknown Completed [facility] HIB 3 Dose Schedule Unknown Completed [facility] HIB 4 Dose Schedule Unknown Completed [facility] HPV9 Unknown Completed [facility] MMR Unknown Completed [facility] Proquad (MMR/VARICELLA) Unknown Completed [facility] Pneumococcal 13 Conjugate, PCV13 (Prevnar 13) Unknown Completed [facility] Pneumococcal Polysaccharide, PPSV23 (PNEUMOVAX) Unknown Completed [facility] IPV Unknown Completed [facility] Varicella (varivax)(chicken pox) Unknown Completed [facility] TDAP Unknown Completed [facility] HIB PRP-D,booster Unknown Completed [facility] Hep B, Dtap, Polio Unknown Completed [facility] Meningococcal Polysaccharide (groups A, C, Y and W-135) conjugate vaccine (MCV4P) Unknown Completed [facility] DTAP Unknown Completed [facility] Polio (IPV/OPV) Unknown Completed [facility] Pneumococcal 7 Conjugate, PCV7 (Prevnar7) Unknown Completed [facility] SARS-COV-2 COVID-19 PFIZER VACCINE Unknown Completed [facility] DTaP, Unspecified Formulation Unknown Completed [facility] Influenza Virus Vaccine Quad .5 mL IM 6+ MO (FLUZONE/FLULAVAL/FL UARIX) Unknown Completed [facility] Flu Trivalent Unknown Completed [facility] Flu Whole Virus Unknown Completed [facility] HEP B, Adult Dosage Unknown Completed [facility] HEPA,NOS Unknown Completed [facility] HEPATITIS A Unknown Completed [facility] Hep B, Adol or Pedi Dosage Unknown Completed [facility] Hib-HbOC Unknown Completed [facility] HIB 3 Dose Schedule Unknown Completed [facility] HIB 4 Dose Schedule Unknown Completed [facility] HPV9 Unknown Completed [facility] MMR Unknown Completed [facility] Proquad (MMR/VARICELLA) Unknown Completed [facility] Pneumococcal 13 Conjugate, PCV13 (Prevnar 13) Unknown Completed [facility] Pneumococcal Polysaccharide, PPSV23 (PNEUMOVAX) Unknown Completed [facility] IPV Unknown Completed [facility] Varicella (varivax)(chicken pox) Unknown Completed [facility] TDAP Unknown Completed [facility] HIB PRP-D,booster Unknown Completed [facility] Hep B, Dtap, Polio Unknown Completed [facility] Meningococcal Polysaccharide (groups A, C, Y and W-135) conjugate vaccine (MCV4P) Unknown Completed [facility] DTAP Unknown Completed [facility] Polio (IPV/OPV) Unknown Completed [facility] Pneumococcal 7 Conjugate, PCV7 (Prevnar7) Unknown Completed [facility] SARS-COV-2 COVID-19 PFIZER VACCINE Unknown Completed [facility] DTaP, Unspecified Formulation Unknown Completed [facility] Influenza Virus Vaccine Quad .5 mL IM 6+ MO (FLUZONE/FLULAVAL/FL UARIX) Unknown Completed [facility] Flu Trivalent Unknown Completed [facility] Flu Whole Virus Unknown Completed [facility] HEP B, Adult Dosage Unknown Completed [facility] HEPA,NOS Unknown Completed [facility] HEPATITIS A Unknown Completed [facility] Hep B, Adol or Pedi Dosage Unknown Completed [facility] Hib-HbOC Unknown Completed [facility] HIB 3 Dose Schedule Unknown Completed [facility] HIB 4 Dose Schedule Unknown Completed [facility] HPV9 Unknown Completed [facility] MMR Unknown Completed [facility] Proquad (MMR/VARICELLA) Unknown Completed [facility] Pneumococcal 13 Conjugate, PCV13 (Prevnar 13) Unknown Completed [facility] Pneumococcal Polysaccharide, PPSV23 (PNEUMOVAX) Unknown Completed [facility] IPV Unknown Completed [facility] Varicella (varivax)(chicken pox) Unknown Completed [facility] TDAP Unknown Completed [facility] HIB PRP-D,booster Unknown Completed [facility] Hep B, Dtap, Polio Unknown Completed [facility] Meningococcal Polysaccharide (groups A, C, Y and W-135) conjugate vaccine (MCV4P) Unknown Completed [facility] DTAP Unknown Completed [facility] Polio (IPV/OPV) Unknown Completed [facility] Pneumococcal 7 Conjugate, PCV7 (Prevnar7) Unknown Completed [facility] SARS-COV-2 COVID-19 PFIZER VACCINE Unknown Completed [facility] DTaP, Unspecified Formulation Unknown Completed [facility] Influenza Virus Vaccine Quad .5 mL IM 6+ MO (FLUZONE/FLULAVAL/FL UARIX) Unknown Completed [facility] Flu Trivalent Unknown Completed [facility] Flu Whole Virus Unknown Completed [facility] HEP B, Adult Dosage Unknown Completed [facility] HEPA,NOS Unknown Completed [facility] HEPATITIS A Unknown Completed [facility] Hep B, Adol or Pedi Dosage Unknown Completed [facility] Hib-HbOC Unknown Completed [facility] HIB 3 Dose Schedule Unknown Completed [facility] HIB 4 Dose Schedule Unknown Completed [facility] HPV9 Unknown Completed [facility] MMR Unknown Completed [facility] Proquad (MMR/VARICELLA) Unknown Completed [facility] Pneumococcal 13 Conjugate, PCV13 (Prevnar 13) Unknown Completed [facility] Pneumococcal Polysaccharide, PPSV23 (PNEUMOVAX) Unknown Completed [facility] IPV Unknown Completed [facility] Varicella (varivax)(chicken pox) Unknown Completed [facility] TDAP Unknown Completed [facility] HIB PRP-D,booster Unknown Completed [facility] Hep B, Dtap, Polio Unknown Completed [facility] Meningococcal Polysaccharide (groups A, C, Y and W-135) conjugate vaccine (MCV4P) Unknown Completed [facility] DTAP Unknown Completed [facility] Polio (IPV/OPV) Unknown Completed [facility] Pneumococcal 7 Conjugate, PCV7 (Prevnar7) Unknown Completed [facility] SARS-COV-2 COVID-19 PFIZER VACCINE Unknown Completed [facility] DTaP, Unspecified Formulation Unknown Completed [facility] Influenza Virus Vaccine Quad .5 mL IM 6+ MO (FLUZONE/FLULAVAL/FL UARIX) Unknown Completed [facility] Flu Trivalent Unknown Completed [facility] Flu Whole Virus Unknown Completed [facility] HEP B, Adult Dosage Unknown Completed [facility] HEPA,NOS Unknown Completed [facility] HEPATITIS A Unknown Completed [facility] Hep B, Adol or Pedi Dosage Unknown Completed [facility] Hib-HbOC Unknown Completed [facility] HIB 3 Dose Schedule Unknown Completed [facility] HIB 4 Dose Schedule Unknown Completed [facility] HPV9 Unknown Completed [facility] MMR Unknown Completed [facility] Proquad (MMR/VARICELLA) Unknown Completed [facility] Pneumococcal 13 Conjugate, PCV13 (Prevnar 13) Unknown Completed [facility] Pneumococcal Polysaccharide, PPSV23 (PNEUMOVAX) Unknown Completed [facility] IPV Unknown Completed [facility] Varicella (varivax)(chicken pox) Unknown Completed [facility] TDAP Unknown Completed [facility] HIB PRP-D,booster Unknown Completed [facility] Influenza Virus Vaccine Quad IM, Preserv and ABX Free 6 MO-64 YRS (FLUCELVAX) Unknown Completed [facility] SARS-COV-2 COVID-19 PFIZER VACCINE Unknown Completed [facility] DTaP, Unspecified Formulation Unknown Completed [facility] Influenza Virus Vaccine Quad .5 mL IM 6+ MO (FLUZONE/FLULAVAL/FL UARIX) Unknown Completed [facility] Flu Trivalent Unknown Completed [facility] Flu Whole Virus Unknown Completed [facility] HEP B, Adult Dosage Unknown Completed [facility] HEPA,NOS Unknown Completed [facility] HEPATITIS A Unknown Completed [facility] Hep B, Adol or Pedi Dosage Unknown Completed [facility] Hib-HbOC Unknown Completed [facility] HIB 3 Dose Schedule Unknown Completed [facility] HIB 4 Dose Schedule Unknown Completed [facility] HPV9 Unknown Completed [facility] MMR Unknown Completed [facility] Proquad (MMR/VARICELLA) Unknown Completed [facility] Pneumococcal 13 Conjugate, PCV13 (Prevnar 13) Unknown Completed [facility] Pneumococcal Polysaccharide, PPSV23 (PNEUMOVAX) Unknown Completed [facility] IPV Unknown Completed [facility] Varicella (varivax)(chicken pox) Unknown Completed [facility] TDAP Unknown Completed [facility] HIB PRP-D,booster Unknown [facility]ine Quad IM, Preserv and ABX Free 6 MO-64 YRS (FLUCELVAX) Unknown Completed [facility] DTAP Unknown Completed [facility] Meningococcal Polysaccharide (groups A, C, Y and W-135) conjugate vaccine (MCV4P) Unknown Completed [facility] Pneumococcal 7 Conjugate, PCV7 (Prevnar7) Unknown Completed [facility] Hep B, Dtap, Polio Unknown Completed [facility] Polio (IPV/OPV) Unknown Completed [facility] Pneumococcal 13 Conjugate, PCV13 (Prevnar 13) Unknown Completed [facility] HIB 4 Dose Schedule Unknown Completed [facility] Hep B, Dtap, Polio Unknown Completed [facility] HEPATITIS A Unknown Completed [facility] Hep B, Adol or Pedi Dosage Unknown Completed [facility] Meningococcal Polysaccharide (groups A, C, Y and W-135) conjugate vaccine (MCV4P) Unknown Completed [facility] DTAP Unknown Completed [facility] Polio (IPV/OPV) Unknown Completed [facility] Pneumococcal 7 Conjugate, PCV7 (Prevnar7) Unknown Completed [facility] SARS-COV-2 COVID-19 PFIZER VACCINE Unknown Completed [facility] DTaP, Unspecified Formulation Unknown Completed [facility] Influenza Virus Vaccine Quad .5 mL IM 6+ MO (FLUZONE/FLULAVAL/FL UARIX) Unknown Completed [facility] Flu Trivalent Unknown Completed [facility] Flu Whole Virus Unknown Completed [facility] HEP B, Adult Dosage Unknown Completed [facility] HEPA,NOS Unknown Completed [facility] Hib-HbOC Unknown Completed [facility] HIB 3 Dose Schedule Unknown Completed [facility] HPV9 Unknown Completed [facility] MMR Unknown Completed [facility] Proquad (MMR/VARICELLA) Unknown Completed [facility] Pneumococcal Polysaccharide, PPSV23 (PNEUMOVAX) Unknown Completed [facility] IPV Unknown Completed [facility] Varicella (varivax)(chicken pox) Unknown Completed [facility] TDAP Unknown Completed [facility] HIB PRP-D,booster [facility] Influ[facility] Virus Vaccine Quad IM, Preserv and ABX Free 6 MO-64 YRS (FLUCELVAX) Unknown Completed [facility] Pneumococcal 13 Conjugate, PCV13 (Prevnar 13) Unknown Completed [facility] HIB 4 Dose Schedule Unknown Completed [facility] Hep B, Dtap, Polio Unknown [facility] Com[facility] Hep B, Adol or Pedi Dosage Unknown Completed [facility] Meningococcal Polysaccharide (groups A, C, Y and W-135) conjugate vaccine (MCV4P) Unknown Completed [facility] DTAP Unknown Completed [facility] Polio (IPV/OPV) Unknown Completed [facility] Pneumococcal 7 Conjugate, PCV7 (Prevnar7) Unknown Completed [facility] SARS-COV-2 COVID-19 PFIZER VACCINE Unknown Completed [facility] DTaP, Unspecified Formulation Unknown Completed [facility] Influenza Virus Vaccine Quad .5 mL IM 6+ MO (FLUZONE/FLULAVAL/FL UARIX) Unknown Completed [facility] Flu Trivalent Unknown Completed [facility] Flu Whole Virus Unknown Completed [facility] HEP B, Adult Dosage Unknown Completed [facility] HEPA,NOS Unknown Completed [facility] Hib-HbOC Unknown Completed [facility] HIB 3 Dose Schedule Unknown Completed [facility] HPV9 Unknown Completed [facility] MMR Unknown Completed [facility] Proquad (MMR/VARICELLA) Unknown Completed [facility] Pneumococcal Polysaccharide, PPSV23 (PNEUMOVAX) Unknown Completed [facility] IPV Unknown Completed [facility] Varicella (varivax)(chicken pox) Unknown Completed [facility] TDAP Unknown Completed [facility] HIB PRP-D,booster Unknown Completed [facility] Influenza Virus Vaccine Quad IM, Preserv and ABX Free 6 MO-64 YRS (FLUCELVAX) Unknown Completed [facility] Pneumococcal 13 Conjugate, PCV13 (Prevnar 13) Unknown Completed [facility] HIB 4 Dose Schedule Unknown Completed [facility] Hep B, Dtap, Polio Unknown Completed [facility] HEPATITIS A Unknown Completed [facility] Hep B, Adol or Pedi Dosage Unknown Completed [facility] Meningococcal Polysaccharide (groups A, C, Y and W-135) conjugate vaccine (MCV4P) Unknown Completed [facility] DTAP Unknown Completed [facility] Polio (IPV/OPV) Unknown Completed [facility] Pneumococcal 7 Conjugate, PCV7 (Prevnar7) Unknown Completed [facility] SARS-COV-2 COVID-19 PFIZER VACCINE Unknown Completed [facility] DTaP, Unspecified Formulation Unknown Completed [facility] Influenza Virus Vaccine Quad .5 mL IM 6+ MO (FLUZONE/FLULAVAL/FL UARIX) Unknown Completed [facility] Flu Trivalent Unknown Completed [facility] Flu Whole Virus Unknown Completed [facility] HEP B, Adult Dosage Unknown Completed [facility] HEPA,NOS Unknown Completed [facility] Hib-HbOC Unknown Completed [facility] HIB 3 Dose Schedule Unknown Completed [facility] HPV9 Unknown Completed [facility] MMR Unknown Completed [facility] Proquad (MMR/VARICELLA) Unknown Completed [facility] Pneumococcal Polysaccharide, PPSV23 (PNEUMOVAX) Unknown Completed [facility] IPV Unknown Completed [facility] Varicella (varivax)(chicken pox) Unknown Completed [facility] TDAP Unknown Completed [facility] HIB PRP-D,booster Unknown Completed [facility] Influenza Virus Vaccine Quad IM, Preserv and ABX Free 6 MO-64 YRS (FLUCELVAX) Unknown Completed [facility] Hep B, Dtap, Polio Unknown Completed [facility] Polio (IPV/OPV) Unknown Completed [facility] Influenza Virus Vaccine Quad .5 mL IM 6+ MO (FLUZONE/FLULAVAL/FL UARIX) Unknown Completed [facility] Flu Whole Virus Unknown Completed [facility] HEP B, Adult Dosage Unknown Completed [facility] HEPA,NOS Unknown Completed [facility] Hib-HbOC Unknown Completed [facility] HIB 3 Dose Schedule Unknown Completed [facility] HPV9 Unknown Completed [facility] Proquad (MMR/VARICELLA) Unknown Completed [facility] Pneumococcal Polysaccharide, PPSV23 (PNEUMOVAX) Unknown Completed [facility] TDAP Unknown Completed [facility] HIB PRP-D,booster Unknown Com[facility] Influenza Virus Vaccine Quad IM, Preserv and ABX Free 6 MO-64 YRS (FLUCELVAX) Unknown Completed [facility] DTAP Unknown Completed [facility] SARS-COV-2 COVID-19 PFIZER VACCINE Unknown Completed [facility] DTaP, Unspecified Formulation Unknown Completed [facility] Flu Trivalent Unknown Completed [facility] Hep B, Adol or Pedi Dosage Unknown Completed [facility] HEPATITIS A Unknown Completed [facility] HIB 4 Dose Schedule Unknown Completed [facility] Meningococcal Polysaccharide (groups A, C, Y and W-135) conjugate vaccine (MCV4P) Unknown Completed [facility] MMR Unknown Completed [facility] Pneumococcal 13 Conjugate, PCV13 (Prevnar 13) Unknown Completed [facility] Pneumococcal 7 Conjugate, PCV7 (Prevnar7) Unknown Completed [facility] IPV Unknown Completed [facility] Varicella (varivax)(chicken pox) Unknown Completed [facility] Vital Signs Vital Name Observation Time Observation Value Comments Lizett nathan Systolic blood pressure 2024-06-17 10:43:00 118 mm[Hg] [facility] Diastolic blood pressure 2024-06-17 10:43:00 79 mm[Hg] [facility] Heart rate 2024-06-17 10:43:00 96 /min [facility] Body temperature 2024-06-17 10:43:00 36.72 Ronda [facility] Respiratory rate 2024-06-17 10:43:00 16 /min [facility] Body height 2024-06-17 10:43:00 165.7 cm Deven [facility] Body weight 2024-06-17 10:43:00 68.493 kg Deven [facility] BMI 2024-06-17 10:43:00 24.94 kg/m2 [facility] saturation in Arterial blood by Pulse oximetry 2024-06-17 10:43:00 98 /min [facility] Systolic blood pressure 2024-06-17 10:43:00 118 mm[Hg] [facility] Diastolic blood pressure 2024-06-17 10:43:00 79 mm[Hg] [facility] Heart rate 2024-06-17 10:43:00 96 /min [facility]or [facility] Body temperature 2024-06-17 10:43:00 36.72 [facility] Respiratory rate 2024-06-17 10:43:00 16 /min [facility] Body height 2024-06-17 10:43:00 165.7 [facility] 2024-06-17 10:43:00 68.493 [facility] BMI 2024-06-17 10:43:00 24.94 kg/m2 [facility] Oxygen saturation in Arterial blood by Pulse oximetry 2024-06-17 10:43:00 98 /min [facility] Systolic blood pressure 2023-07-31 15:38:00 132 mm[Hg] [facility] Diastolic blood pressure 2023-07-31 15:38:00 87 mm[Hg] [facility] Heart rate 2023-07-31 15:38:00 98 /min [facility] Respiratory rate 2023-07-31 15:38:00 18 /min [facility] Body height 2023-07-31 15:38:00 165.1 cm [facility] Body weight 2023-07-31 15:38:00 67.994 kg [facility] BMI 2023-07-31 15:38:00 24.94 kg/m2 [facility] Oxygen saturation in Arterial blood by Pulse oximetry 2023-07-31 15:38:00 100 /min [facility] Systolic blood pressure 2023-07-18 16:26:00 138 mm[Hg] [facility] Diastolic blood pressure 2023-07-18 16:26:00 94 mm[Hg] [facility] Heart rate 2023-07-18 16:20:00 108 /min [facility] Body height 2023-07-18 16:20:00 165.1 cm [facility] Body weight 2023-07-18 16:20:00 69.536 kg [facility] BMI 2023-07-18 16:20:00 25.51 kg/m2 [facility] Oxygen saturation in Arterial blood by Pulse oximetry 2023-07-18 16:20:00 99 /min [facility] Systolic blood pressure 2023-07-10 18:39:00 133 mm[Hg] [facility] Diastolic blood pressure 2023-07-10 18:39:00 86 mm[Hg] [facility] Heart rate 2023-07-10 18:39:00 104 /min [facility] Body height 2023-07-10 18:39:00 165.1 cm [facility] Body weight 2023-07-10 18:39:00 69.128 kg [facility] BMI 2023-07-10 18:39:00 25.36 kg/m2 [facility] in Arterial blood by Pulse oximetry 2023-07-10 18:39:00 97 /min [facility] Systolic blood pressure 2023-05-26 14:58:00 129 mm[Hg] [facility] Diastolic blood pressure 2023-05-26 14:58:00 86 mm[Hg] [facility] Heart rate 2023-05-26 14:58:00 94 /min [facility] Body height 2023-05-26 14:58:00 165.1 cm [facility] Body weight 2023-05-26 14:58:00 69.4 kg [facility] BMI 2023-05-26 14:58:00 25.46 kg/m2 [facility] Oxygen saturation in Arterial blood by Pulse oximetry 2023-05-26 14:58:00 98 /min [facility] Systolic blood pressure 2023-04-21 21:27:00 144 mm[Hg] [facility] Diastolic blood pressure 2023-04-21 21:27:00 96 mm[Hg] [facility] Heart rate 2023-04-21 21:27:00 103 /min [facility] Body height 2023-04-21 21:27:00 165.1 cm [facility] Body weight 2023-04-21 21:27:00 70.398 kg Univ [facility] BMI 2023-04-21 21:27:00 25.83 kg/m2 [facility] Systolic blood pressure 2023-04-13 19:32:00 115 mm[Hg] [facility] Diastolic blood pressure 2023-04-13 19:32:00 74 mm[Hg] [facility] Heart rate 2023-04-13 19:32:00 79 /min [facility] Body height 2023-04-13 19:32:00 165.1 cm Univ [facility] Body weight 2023-04-13 19:32:00 70.308 kg [facility] BMI 2023-04-13 19:32:00 25.79 kg/m2 [facility] Oxygen saturation in Arterial blood by Pulse oximetry 2023-04-13 19:32:00 98 /min [facility] Systolic blood pressure 2023-03-31 19:23:00 110 mm[Hg] [facility] Diastolic blood pressure 2023-03-31 19:23:00 75 mm[Hg] [facility] Heart rate 2023-03-31 19:23:00 99 /min [facility] Body height 2023-03-31 19:23:00 165.1 cm [facility] Body weight 2023-03-31 19:23:00 70.398 kg [facility] BMI 2023-03-31 19:23:00 25.83 kg/m2 [facility] Oxygen saturation in Arterial blood by Pulse oximetry 2023-03-31 19:23:00 97 /min [facility] Systolic blood pressure 2023-03-24 14:42:00 129 mm[Hg] [facility] Diastolic blood pressure 2023-03-24 14:42:00 87 mm[Hg] [facility] Heart rate 2023-03-24 14:42:00 90 /min [facility] Body temperature 2023-03-24 14:42:00 36.72 Ronda [facility] Respiratory rate 2023-03-24 14:42:00 18 /min [facility] Body height 2023-03-24 14:42:00 165.1 cm [facility] Body weight 2023-03-24 14:42:00 68.629 kg [facility] BMI 2023-03-24 14:42:00 25.18 kg/m2 [facility] Oxygen saturation in Arterial blood by Pulse oximetry 2023-03-24 14:42:00 99 /min [facility] Systolic blood pressure 2022-10-07 20:47:00 124 mm[Hg] [facility] Diastolic blood pressure 2022-10-07 20:47:00 86 mm[Hg] [facility] Heart rate 2022-10-07 20:47:00 101 /min [facility] Body height 2022-10-07 20:47:00 165.1 cm [facility] Body weight 2022-10-07 20:47:00 69.264 kg [facility] BMI 2022-10-07 20:47:00 25.41 kg/m2 [facility] Oxygen saturation in Arterial blood by Pulse oximetry 2022-10-07 20:47:00 94 /min [facility] Systolic blood pressure 2022-08-05 19:18:00 128 mm[Hg] [facility] Diastolic blood pressure 2022-08-05 19:18:00 81 mm[Hg] [facility] Heart rate 2022-08-05 19:18:00 110 /min [facility] Respiratory rate 2022-08-05 19:18:00 23 /min [facility] Body height 2022-08-05 19:18:00 165.1 cm [facility] Body weight 2022-08-05 19:18:00 70.308 kg [facility] BMI 2022-08-05 19:18:00 25.79 kg/m2 [facility] Oxygen saturation in Arterial blood by Pulse oximetry 2022-08-05 19:18:00 97 /min [facility] Systolic blood pressure 2022-08-04 18:34:00 125 mm[Hg] [facility] Diastolic blood pressure 2022-08-04 18:34:00 84 mm[Hg] [facility] Heart rate 2022-08-04 18:34:00 96 /min [facility] Body height 2022-08-04 18:34:00 165.1 cm [facility] Body weight 2022-08-04 18:34:00 70.625 kg [facility] BMI 2022-08-04 18:34:00 25.91 kg/m2 [facility] Oxygen saturation in Arterial blood by Pulse oximetry 2022-08-04 18:34:00 97 /min [facility] Systolic blood pressure 2022-07-05 16:31:00 128 mm[Hg] [facility] Diastolic blood pressure 2022-07-05 16:31:00 86 mm[Hg] [facility] Heart rate 2022-07-05 16:31:00 93 /min [facility] Body height 2022-07-05 16:31:00 165.1 cm [facility] Body weight 2022-07-05 16:31:00 67.722 kg [facility] BMI 2022-07-05 16:31:00 24.84 kg/m2 [facility] Oxygen saturation in Arterial blood by Pulse oximetry 2022-07-05 16:31:00 99 /min [facility] Procedures Procedure Date / Time Performed Performing Clinician Source Vitamin B1 Level 2024-06-17 00:00:00 Deven Spain [facility] C-Reactive Protein 2024-06-17 00:00:00 [facility] Sedimentation Rate 2024-06-17 00:00:00 [facility] Complete Blood Count w/Diff and Platelet 2024-06-17 00:00:00 [facility] Copper Level 2024-06-17 00:00:00 [facility] Ceruloplasmin 2024-06-17 00:00:00 Joanne echeverria [facility] Zinc Level 2024-06-17 00:00:00 [facility] MRI brain wo IV contrast 2024-06-17 00:00:00 [facility] CBC WITH DIFF 2023-07-31 16:31:00 Emre Gan [facility] FLU VACC ([id number]), 6 MO-64 YRS, .5ML, IM, QUAD (FLUCELVAX) 2023-07-31 16:29:55 Emre Gan [facility] MEDICAL RELEASE/CLEARANCE FORMS 2023-07-18 05:01:00 Doctor Unassigned, [facility] CBC WITH DIFF 2023-07-10 19:47:00 Emre Gan [facility] COMP. METABOLIC PANEL ([id number]) 2023-07-10 19:47:00 Emre Gan [facility] POCT HEMOGLOBIN A1C TEST 2023-07-10 00:00:00 Benjamín Gan [facility] TDAP VACCINE, >11 YRS, IM 2023-05-26 15:11:45 Braeden Gan [facility] POCT HEMOGLOBIN A1C TEST 2023-05-26 00:00:00 Benjamín Gan [facility] MEDICAL RELEASE/CLEARANCE FORMS 2023-03-31 05:01:00 Doctor Unassigned, [facility] ASSIGNMENT OF BENEFITS 2022-10-07 20:44:49 Dockaroline r Unassigned, [facility] INSURANCE CORRESPONDENCE 2022-08-16 06:01:00 Doc kathi Unassigned, [facility] POCT HEMOGLOBIN A1C TEST 2022-08-04 20:25:00 Benjamín Gan [facility] Encounters Start Date/Time End Date/Time Encounter Type Admission Type Attending [facility] Emergency [facility] Facility Care Department Encounter ID Source 2024-06-17 11:00:00 2024-06-17 11:11:49 Consult Esther Corrigan [id number] [id number] [id number] Joanne Spain [facility] 2024-06-17 10:35:24 2024-06-17 11:11:49 Outpatient ESTHER CORRIGAN [facility] [id number] [facility] 2024-04-30 11:19:38 2024-04-30 11:19:38 Outpatient SFA [facility] [id number] 2024-04-01 10:11:03 2024-04-01 10:11:03 Outpatient MAYRA [facility] [id number] 2024-02-16 16:30:00 2024-02-16 16:30:38 Outpatient MELLY SOLIS [facility] [id number] [facility] 2024-02-16 16:30:00 2024-02-16 16:30:38 Office Visit Melly Barber [facility] 1.84.114 350.1.13.10 4.2.7.2.686 [id number] [facility] 2024-01-31 00:00:00 2024-01-31 00:00:00 [facility] 1.84.114 350.1.13.10 4.2.7.2.686 [id number] [facility] 2023-11-21 13:00:00 2023-11-21 13:00:00 Outpatient R ANN MCKNIGHT [facility] [id number] [facility] 2023-09-22 00:00:00 2023-09-22 00:00:00 Refill Melly Barber [facility] 1.84.114 350.1.13.10 4.2.7.2.686 [id number] [facility] 2023-08-10 13:30:00 2023-08-10 13:30:00 Outpatient R EMRE GAN [facility] [id number] [facility] 2023-08-02 00:00:00 2023-08-02 00:00:00 Patient Secure Msg Doctor Unassigned, [facility] 1.84.114 350.1.13.10 4.2.7.2.686 [id number] [facility] 2023-07-31 11:45:00 2023-07-31 12:00:00 [facility] 1.84.114 350.1.13.10 4.2.7.2.686 [id number] [facility] 2023-07-31 11:00:00 2023-07-31 11:26:15 Outpatient R EMRE GAN [facility] [id number] [facility] 2023-07-31 11:00:00 2023-07-31 11:26:15 Office Visit Emre Gan [facility] NEV[facility]H [facility] [id number] 350.1.13.10 4.2.7.2.686 [id number] [facility] 2023-07-25 00:00:00 2023-07-25 00:00:00 Patient Secure Msg [facility] 1..840.114 350.1.13.10 4.2.7.2.686 [id number] [facility] 2023-07-25 00:00:00 2023-07-25 00:00:00 Telephone [facility] 1..840.114 350.1.13.10 4.2.7.2.686 [id number] [facility] 2023-07-19 09:15:00 2023-07-19 09:15:00 Outpatient R [facility] [id number] [facility] 2023-07-18 11:30:00 2023-07-18 12:10:40 Outpatient R ANN MCKNIGHT [facility] [id number] [facility] 2023-07-18 11:30:00 2023-07-18 12:10:40 [facility] 1..840.114 350.1.13.10 4.2.7.2.686 [id number] [facility] 2023-07-18 00:00:00 2023-07-18 00:00:00 Letter (Out) Barbgiovannasantiago [facility] 1.2840.114 350.1.13.10 4.2.7.2.686 [id number] [facility] 2023-07-18 00:00:00 2023-07-18 00:00:00 Refill Ann Mcknight [facility] 1.2840.114 350.1.13.10 4.2.7.2.686 [id number] [facility] 2023-07-18 00:00:00 2023-07-18 00:00:00 Orders Only Doctor Unassigned, [facility] 1.2840.114 350.1.13.10 4.2.7.2.686 [id number] [facility] 2023-07-17 00:00:00 2023-07-17 00:00:00 [facility]phone [facility] 1.840.114 350.1.13.10 4.2.7.2.686 [id number] [facility] 2023-07-16 15:30:00 2023-07-16 15:30:00 Outpatient R EMRE GAN [facility] [id number] [facility] 2023-07-11 00:00:00 2023-07-11 00:00:00 Telephone Kirsten Ganthia [facility] 1.2840.114 350.1.13.10 4.2.7.2.686 [id number] [id number] [facility] 2023-07-11 00:00:00 2023-07-11 00:00:00 Telephone ElviaEmre [facility] 1.2840.114 350.1.13.10 4.2.7.2.686 [id number] 044 [id number] [facility] 2023-07-10 17:00:00 2023-07-10 17:15:00 Dialysis Tech Visit Lab, [facility] 1.2.840.114 350.1.13.10 4.2.7.2.686 [id number] [facility] 2023-07-10 13:30:00 2023-07-10 14:37:44 Outpatient R EMRE GAN [facility] [id number] [facility] 2023-07-10 13:30:00 2023-07-10 14:37:44 [facility] 1.2.840.114 350.1.13.10 4.2.7.2.686 [id number] 044 [id number] [facility] 2023-05-26 09:30:00 2023-05-26 10:29:53 Outpatient R EMRE GAN [facility] [id number] [facility] 2023-05-26 09:30:00 2023-05-26 10:29:53 [facility] 1.2.840.114 350.1.13.10 4.2.7.2.686 [id number] 044 [id number] [facility] 2023-04-27 14:30:00 2023-04-27 14:30:00 Outpatient R EMRE GAN [facility] [id number] [facility] 2023-04-21 16:30:00 2023-04-21 17:06:39 Outpatient R RICHARD CRUZ [facility] [id number] [facility] 2023-04-21 16:30:00 2023-04-21 17:06:39 Office Visit Richard Cruz [facility] 1.84.114 350.1.13.10 4.2.7.2.686 [id number] [facility] 2023-04-21 00:00:00 2023-04-21 00:00:00 Letter (Out) Richard Cruz [facility] NEVAEH SHE[facility]ON?[facility] 1.84.114 350.1.13.10 4.2.7.2.686 [id number] [facility] 2023-04-13 14:30:00 2023-04-13 15:12:55 Outpatient R EMRE GAN [facility] [id number] [facility] 2023-04-13 14:30:00 2023-04-13 15:12:55 [facility] 1.84.114 350.1.13.10 4.2.7.2.686 [id number] 044 [id number] [facility] 2023-04-13 00:00:00 2023-04-13 00:00:00 Letter (Out) [facility] 1.84.114 350.1.13.10 4.2.7.2.686 [id number] 044 [id number] [facility] 2023-04-03 00:00:00 2023-04-03 00:00:00 Patient Secure Msg Doctor Unassigned, Sage [facility] 1.84.114 350.1.13.10 4.2.7.2.686 [id number] 044 [id number] [facility] 2023-03-31 15:15:00 2023-03-31 15:34:55 Dialysis Tech Visit Lab, [place] - Brendan Gan [facility] 1.84.114 350.1.13.10 4.2.7.2.686 [id number] [facility] 2023-03-31 14:00:00 2023-03-31 15:08:45 Outpatient R EMRE GAN [facility] [id number] [facility] 2023-03-31 14:00:00 2023-03-31 15:08:45 [facility] 1.840.114 350.1.13.10 4.2.7.2.686 [id number] 044 [id number] [facility] 2023-03-31 00:00:00 2023-03-31 00:00:00 Letter (Out) [facility] 1.840.114 350.1.13.10 4.2.7.2.686 [id number] 044 [id number] [facility] 2023-03-31 00:00:00 2023-03-31 00:00:00 Orders Only Doctor Unassigned, [facility] 1.84.114 350.1.13.10 4.2.7.2.686 [id number] [facility] 2023-03-29 13:00:00 2023-03-29 13:00:00 Outpatient R MELLY BARBER [facility] [id number] [facility] 2023-03-24 09:30:00 2023-03-24 10:00:00 Office Visit Melly Barber [facility] 1.840.114 350.1.13.10 4.2.7.2.686 [id number] 044 [id number] [facility] 2023-03-24 09:30:00 2023-03-24 09:30:00 Outpatient R MELLY BARBER [facility] [id number] [facility] 2023-03-24 00:00:00 2023-03-24 00:00:00 Letter (Out) [facility] 1.2.840.114 350.1.13.10 4.2.7.2.686 [id number] 044 [id number] [facility] 2023-03-24 00:00:00 2023-03-24 00:00:00 Letter (Out) [facility]ly [facility] 1..840.114 350.1.13.10 4.2.7.2.686 [id number] 044 [id number] [facility] 2023-03-21 00:00:00 2023-03-21 00:00:00 Telephone Kirsten Ganthia [facility] 1.2840.114 350.1.13.10 4.2.7.2.686 [id number] [id number] [facility] 2023-03-17 15:30:00 2023-03-17 15:30:00 Outpatient R RICHARD CRUZ [facility] [id number] [facility] 2023-02-26 00:00:00 2023-02-26 00:00:00 Refill Elvia Emre [facility] 1.2.840.114 350.1.13.10 4.2.7.2.686 [id number] 044 [id number] [facility] 2023-02-21 00:00:00 2023-02-21 00:00:00 Telephone Richard Cruz [facility] 1.2.840.114 350.1.13.10 4.2.7.2.686 [id number] [facility] 2023-01-19 00:00:00 2023-01-19 00:00:00 Telephone [facility]irsten [facility] 1.84.114 350.1.13.10 4.2.7.2.686 [id number] 044 [id number] [facility] 2023-01-09 00:00:00 2023-01-09 00:00:00 Refill [facility] 1..114 350.1.13.10 4.2.7.2.686 [id number] 044 [id number] [facility] 2022-10-18 00:00:00 2022-10-18 00:00:00 [facility] 1..114 350.1.13.10 4.2.7.2.686 [id number] 044 [id number] [facility] 2022-10-07 15:00:00 2022-10-07 15:46:19 Outpatient R RICHARD CRUZ [facility] [id number] [facility] 2022-10-07 15:00:00 2022-10-07 15:46:19 Office Visit Richard Cruz [facility] 1..114 350.1.13.10 4.2.7.2.686 [id number] [facility] 2022-10-07 00:00:00 2022-10-07 00:00:00 Orders Only Doctor Unassigned, [facility] 1..114 350.1.13.10 4.2.7.2.686 [id number] [id number] [facility] 2022-09-15 00:00:00 2022-09-15 00:00:00 Telephone [facility] 1.0.114 350.1.13.10 4.2.7.2.686 [id number] 044 [id number] [facility] 2022-08-25 15:48:17 2022-08-25 23:59:00 [id number] 2022-08-25 00:00:00 2022-08-25 00:00:00 Patient Secure Msg [facility] BUILDING 1.840.114 350.1.13.10 4.2.7.2.686 [id number] [id number] [facility] 2022-08-16 00:00:00 2022-08-16 00:00:00 Orders Only Doctor Unassigned, [facility] 1.840.114 350.1.13.10 4.2.7.2.686 [id number] [facility] 2022-08-05 14:00:00 2022-08-05 14:39:02 [facility] [id number] [facility] 2022-08-05 14:00:00 2022-08-05 14:39:02 Office Visit [facility] BUILDING 1..840.114 350.1.13.10 4.2.7.2.686 [id number] [facility] 2022-08-04 13:30:00 2022-08-04 14:59:51 Outpatient R EMRE GAN [facility] [id number] [facility] 2022-08-04 13:30:00 2022-08-04 14:59:51 Office Visit Emre Gan [facility] 1..840.114 350.1.13.10 4.2.7.2.686 [id number] 044 [id number] [facility] 2022-07-19 00:00:00 2022-07-19 00:00:00 Luis Miguel Dalton [facility] 1.2.840.114 350.1.13.10 4.2.7.2.686 [id number] [id number] [facility] 2022-07-05 11:30:00 2022-07-05 11:46:02 Outpatient R EMRE GAN [facility] [id number] [facility] 2022-07-05 11:30:00 2022-07-05 11:46:02 [facility] 1.2.840.114 350.1.13.10 4.2.7.2.686 [id number] [id number] [facility] 2022-07-05 00:00:00 2022-07-05 00:00:00 [facility] 1..840.114 350.1.13.10 4.2.7.2.686 [id number] 044 [id number] [facility] 2022-07-02 00:00:00 2022-07-02 00:00:00 Patient Secure Msg Doctor Unassigned, [facility] 1.840.114 350.1.13.10 4.2.7.2.686 [id number] [facility] 2022-06-28 00:00:00 2022-06-28 00:00:00 Telephone Elvia [facility] 1.2.840.114 350.1.13.10 4.2.7.2.686 [id number] 044 [id number] [facility] 2022-06-22 00:00:00 2022-06-22 00:00:00 Telephone Anene, [facility] P[facility] BUILD[facility] 1.2840.114 350.1.13.10 4.2.7.2.686 [id number] 044 [id number] [facility] 2022-06-21 00:00:00 2022-06-21 00:00:00 Case Management Bebeto Arce [facility] 1.2840.114 350.1.13.10 4.2.7.2.686 [id number] 370 [id number] [facility] 2022-06-21 00:00:00 2022-06-21 00:00:00 Case Management Yazmin [facility] P[facility]O?[facility] BUILD[facility] 1.2840.114 350.1.13.10 4.2.7.2.686 [id number] [facility] 2022-06-21 00:00:00 2022-06-21 00:00:00 Case Management Yazmin [facility] P[facility] BUILD[facility] 1.2840.114 350.1.13.10 4.2.7.2.686 [id number] [facility] 2022-06-20 12:00:00 2022-06-20 12:14:16 Dialysis Tech Visit Lab, [place] Card[facility] 1.2840.114 350.1.13.10 4.2.7.2.686 [id number] [facility] 2022-06-20 12:00:00 2022-06-20 12:14:16 Dialysis Tech Visit Lab, [place] Cardona [facility] 1.2840.114 350.1.13.10 4.2.7.2.686 [id number] [facility] 2022-06-20 12:00:00 2022-06-20 12:14:16 Dialysis Tech Visit Lab, [place] - Brendan [facility] 1..840.114 350.1.13.10 4.2.7.2.686 [id number] 353 [id number] [facility] 2022-06-20 11:30:00 2022-06-20 11:47:22 Outpatient R EMRE GAN [facility] [id number] [facility] 2022-06-20 11:30:00 2022-06-20 11:47:22 Office [facility] 1..840.114 350.1.13.10 4.2.7.2.686 [id number] [id number] [facility] 2022-06-20 11:30:00 2022-06-20 11:47:22 Outpatient R EMRE GAN [facility] [id number] [facility] 2022-06-20 11:30:00 2022-06-20 11:47:22 [facility] 1..840.114 350.1.13.10 4.2.7.2.686 [id number] 044 [id number] [facility] 2022-06-20 11:30:00 2022-06-20 11:47:22 Outpatient R EMRE GAN [facility] [id number] [facility] 2022-06-20 00:00:00 2022-06-20 00:00:00 Letter (Out) [facility] 1.2.840.114 350.1.13.10 4.2.7.2.686 [id number] 044 [id number] [facility] 2022-06-20 00:00:00 2022-06-20 00:00:00 Telephone [facility]irsten [facility]At[facility] BU[facility] 1..840.114 350.1.13.10 4.2.7.2.686 [id number] 044 [id number] [facility] 2022-06-20 00:00:00 2022-06-20 00:00:00 Telephone [facility]irsten [facility] 1.840.114 350.1.13.10 4.2.7.2.686 [id number] 044 [id number] [facility] 2022-05-28 12:00:00 2022-05-28 12:00:00 [facility] 1..840.114 350.1.13.10 4.2.7.2.686 [id number] 370 [id number] [facility] 2022-05-28 12:00:00 2022-05-28 12:00:00 Urgent Care Dax [facility] P[facility] BUILD[facility] 1.840.114 350.1.13.10 4.2.7.2.686 [id number] 370 [id number] [facility] 2022-05-28 12:00:00 2022-05-28 11:55:15 Outpatient R LITZY VERDUZCOANDA [facility] [id number] [facility] 2022-05-20 20:40:00 2022-05-20 20:40:00 Outpatient R BEBETO ARCE [facility] [id number] [facility] 2022-05-12 00:00:00 2022-05-12 00:00:00 Refill [facility]irst[facility] 1..840.114 350.1.13.10 4.2.7.2.686 [id number] 044 [id number] [facility] 2022-04-29 12:00:00 2022-04-29 12:20:00 Urgent Care Bebeto Arce [facility] BUILD[facility] 1.114 350.1.13.10 4.2.7.2.686 [id number] [facility] 2022-04-29 12:00:00 2022-04-29 12:00:00 Outpatient R BEBETO ARCE [facility] [id number] [facility] 2022-04-04 00:00:00 2022-04-04 00:00:00 Refill Emre Gan [facility] BUILD[facility] 1.114 350.1.13.10 4.2.7.2.686 [id number] 044 [id number] [facility] 2022-03-28 16:20:00 2022-03-28 16:40:00 Urgent Care Latisha Leegonzales VerduzcoKateryna [facility] BUILDING 1.114 350.1.13.10 4.2.7.2.686 [id number] [facility] 2022-03-28 16:20:00 2022-03-28 16:20:00 Outpatient R JAMA LEE [facility] [id number] [facility] 2022-03-21 00:00:00 2022-03-21 00:00:00 Orders Only Doctor Unassigned, [facility] 1.114 350.1.13.10 4.2.7.2.686 [id number] [facility] 2022-03-03 00:00:00 2022-03-03 00:00:00 Refill Luis Miguel Estrada [facility] BUILD[facility] 1.114 350.1.13.10 4.2.7.2.686 [id number] 044 [id number] [facility] 2022-02-02 00:00:00 2022-02-02 00:00:00 Telephone [facility] 1..840.114 350.1.13.10 4.2.7.2.686 [id number] [facility] 2022-01-28 11:30:00 2022-01-28 11:30:00 Outpatient R EMRE GAN [facility] [id number] [facility] 2022-01-28 11:30:00 2022-01-28 11:30:00 Outpatient R EMRE GAN [facility] [id number] [facility] 2022-01-07 00:00:00 2022-01-07 00:00:00 Patient Secure Msg Doctor Unassigned, Sage [facility] BUILD[facility] 1.840.114 350.1.13.10 4.2.7.2.686 [id number] 044 [id number] [facility] 2022-01-05 13:20:00 2022-01-05 13:20:00 Urgent Care Bebeto Arce [facility] BUILD[facility] 1..840.114 350.1.13.10 4.2.7.2.686 [id number] [facility] 2022-01-05 13:20:00 2022-01-05 10:49:31 Outpatient Pee HURT HEIDE [facility] [id number] [facility] 2022-01-05 00:00:00 2022-01-05 00:00:00 Letter (Out) Provider, [facility] BUILDING 1..840.114 350.1.13.10 4.2.7.2.686 [id number] 370 [id number] [facility] 2022-01-05 00:00:00 2022-01-05 00:00:00 Telephone Bebeto Arce [facility] BUILD[facility] 1.2.840.114 350.1.13.10 4.2.7.2.686 [id number] [facility] 2022-01-04 00:00:00 2022-01-04 00:00:00 Orders Only Doctor Unassigned, [facility] 1.2.840.114 350.1.13.10 4.2.7.2.686 [id number] [id number] [facility] 2021-12-31 00:00:00 2021-12-31 00:00:00 Telephone Emre Gan [facility] P[facility] BUILD[facility] 1.2.840.114 350.1.13.10 4.2.7.2.686 [id number] 044 [id number] [facility] 2021-12-31 00:00:00 2021-12-31 00:00:00 [facility] BUILD[facility] 1.2.840.114 350.1.13.10 4.2.7.2.686 [id number] [id number] [facility] 2021-12-30 11:00:00 2021-12-30 11:00:00 Outpatient R EMRE GAN [facility] [id number] [facility] 2021-12-30 11:00:00 2021-12-30 11:00:00 Outpatient EMRE DUMONT [facility] [id number] [facility] 2021-12-28 11:30:00 2021-12-28 12:26:05 Outpatient EMRE DUMONT [facility] [id number] [facility] 2021 00:00:00 2021 00:00:00 Telephone Anene, [facility] 1.84.114 350.1.13.10 4.2.7.2.686 [id number] [facility] 2021-11-04 11:30:00 2021-11-04 11:30:00 Outpatient R TAMMYCHRISTOPHER Cruz [facility] [id number] [facility] 2021-11-02 16:30:00 2021-11-02 16:45:00 Dialysis Tech Visit Lab, [place] Cardona Elvia [facility] 1.84.114 350.1.13.10 4.2.7.2.686 [id number] [facility] 2021-11-02 15:00:00 2021-11-02 16:27:02 [facility] [id number] [facility] 2021-11-02 15:00:00 2021-11-02 16:27:02 [facility] 1.84114 350.1.13.10 4.2.7.2.686 [id number] [id number] [facility] 2021-10-19 00:00:00 2021-10-19 00:00:[address] [facility] 1.114 350.1.13.10 4.2.7.2.686 [id number] [facility] 2021-10-18 13:45:00 2021-10-18 15:41:27 Outpatient R DEMETRI LAKE BRENT [facility] [id number] [facility] 2021-10-18 13:45:00 2021-10-18 15:41:27 Office Visit Joan Carlson Brent C [facility] 1.114 350.1.13.10 4.2.7.2.686 [id number] [facility] 2021-10-18 13:45:00 2021-10-18 15:41:27 Office Visit Joan Carlson Brent C [facility] 1.2.840.114 350.1.13.10 4.2.7.2.686 [id number] [facility] 2021-10-18 13:45:00 2021-10-18 15:41:27 Outpatient DEMETRI ELISE BRENT [facility] [id number] [facility] 2021-10-13 00:00:00 2021-10-13 00:00:00 Telephone [facility] 1.2.840.114 350.1.13.10 4.2.7.2.686 [id number] [facility] 2021-10-05 10:30:00 2021-10-05 11:13:32 [facility] 1.2.840.114 350.1.13.10 4.2.7.2.686 [id number] [facility] 2021-10-05 10:30:00 2021-10-05 11:13:32 Outpatient R EMRE GAN [facility] [id number] [facility] 2021-10-05 10:30:00 2021-10-05 10:30:00 Outpatient R EMRE GAN [facility] [id number] [facility] 2021-10-05 10:30:00 2021-10-05 10:30:00 Outpatient R EMRE GAN [facility] [id number] [facility] 2021-10-04 00:00:00 2021-10-04 00:00:00 [facility] 1..840.114 350.1.13.10 4.2.7.2.686 [id number] [facility] 2021-09-27 10:30:00 2021-09-27 10:45:00 Dialysis Tech Visit Lab, [facility] 1..840.114 350.1.13.10 4.2.7.2.686 [id number] [facility] 2021-09-27 10:30:00 2021-09-27 10:30:00 Outpatient R EMRE GAN [facility] [id number] [facility] 2021-09-27 00:00:00 2021-09-27 00:00:00 [facility] 1.840.114 350.1.13.10 4.2.7.2.686 [id number] [facility] 2021-09-24 16:30:00 2021-09-24 17:11:50 Outpatient R EMRE GAN [facility] [id number] [facility] 2021-09-24 16:30:00 2021-09-24 17:11:50 [facility] 1..840.114 350.1.13.10 4.2.7.2.686 [id number] [facility] 2021-09-24 16:30:00 2021-09-24 17:11:50 Outpatient R EMRE GAN [facility] [id number] [facility] 2021-09-06 13:07:39 2021-09-06 14:01:08 [facility] 1..840.114 350.1.13.10 4.2.7.2.686 [id number] [facility] 2021-09-06 13:00:00 2021-09-06 14:01:08 Outpatient EMRE DUMONT [facility] [id number] [facility] 2021-09-06 13:00:00 2021-09-06 13:00:00 [id number] 2021-09-06 00:00:00 2021-09-06 00:00:00 Orders Only Doctor Unassigned, [facility] 1.2.840.114 350.1.13.10 4.2.7.2.686 [id number] [facility] 2021-02-06 13:10:00 2021-02-06 13:10:00 Outpatient SHERIF HERNANDEZ [facility] [id number] [facility] 2021-01-16 13:10:00 2021-01-16 13:10:00 Outpatient [facility] [id number] [facility] Results Test Description Test Time Test Comments Results Result Co mments Source [facility] HEMOGLOBIN A1C [id number] 19:37:00* Test Item Value Reference Range Interpretation Comme [facility] POCT HBA1C (test code = 4548-4) 9.1 % 4-6 A Lab Interpretation (test cod e = 79394-3) Abnormal [facility] HEMOGLOBIN A1C [id number] 19:37:00* Test Item Value Reference Range Interpretation Comme [facility] POCT HBA1C (test code = 4548-4) 9.1 % 4-6 A Lab Interpretation (test cod e = 47351-2) Abnormal [facility] HEMOGLOBIN A1C [id number] 15:18:00* Test Item Value Reference Range Interpretation Comme [facility] POCT HBA1C (test code = 4548-4) 8.8 % 4-6 A Lab Interpretation (test cod e = 01595-9) Abnormal [facility] HEMOGLOBIN A1C [id number] 15:18:00* Test Item Value Reference Range Interpretation Comme nts POCT HBA1C (test code = 4548-4) 8.8 % 4-6 A Lab Interpretation (test cod e = 85304-8) Abnormal [facility] HEMOGLOBIN A1C [id number] 21:00:00* Test Item Value Reference Range Interpretation Comme nts POCT HBA1C (test code = 4548-4) 12.1 % 4-6 A Lab Interpretation (test cod e = 23747-9) Abnormal [facility] HEMOGLOBIN A1C [id number] 21:00:00* Test Item Value Reference Range Interpretation Comme nts POCT HBA1C (test code = 4548-4) 12.1 % 4-6 A Lab Interpretation (test cod e = 68627-9) Abnormal [facility] Notes Date/Time Note Provider Source Referral ID Status Reason Start Date Expiration Date V isits Requested Visits Authorized [id number] Incomplete 06/17/2024 12/14/2024 1 1 [id number] 11:19:17* [facility]Wqvuzkh8432-64-08 11:19:17 [facility]Hlsfwjd6178-16-42 11:19:17* Esther Corrigan MD - 06/17/2024 11:00 AM CDT Subjective Nahed Hilton is a 23 y.o. male presenting with headache. History of Present Illness HPI 23-year-old gentleman here for further evaluation of headaches. 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 He was in his usual state of health until May when after going to the dentist went home and developed significant headache. Pounding headache, photophobia, nausea, vomiting. Pain would not remit. Went to the emergency department. Had a CT scan of the brain and labs reports those to be normal. Saw his primary care physician, was given some Qulipta which helped quite a bit but his insurance does not want to cover the Qulipta, presumptively some type of step added. Continues to have about 1 headache a week still. 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 Here for further evaluation. ObjectivePast Medical History He has a past medical history of Anxiety, Bone marrow transplant candidate, Cancer (CMS/HCC) (HCC), Depression, Diabetes mellitus (HCC), Headache, Leukemia (HCC), and Migraine. Surgical HistoryHe has a past surgical history that includes Appendectomy; Lumbar puncture; and Bone marrow transplant. Family HistoryFamily History: Problem Relation Name Age of Onset Stroke Mother Transient ischemic attack Mother No Known Problems Father No Known Problems Sister No Known Problems Brother No Known Problems Mother's Sister No Known Problems Mother's Brother No Known Problems Father's Sister No Known Problems Father's Brother No Known Problems Maternal Grandmother No Known Problems Maternal Grandfather No Known Problems Paternal Grandmother No Known Problems Paternal Grandfather No Known Problems Other Social History He reports that he has never smoked. He has never been exposed to tobacco smoke. He has never used smokeless tobacco. He reports that he does not drink alcohol and does not use drugs. AllergiesPatient has no known allergies. MedicationsCurrent Outpatient Medications Medication Sig Dispense Refill ARIPiprazole (Abilify) 5 MG tablet Take 5 mg by mouth 1 time each day. citalopram (CeleXA) 20 MG tablet Take 20 mg by mouth 1 time each day. guanFACINE (Intuniv) 3 mg 24 hr tablet Take 1 tablet by mouth at bedtime. HumuLIN 70/30 KWIKPEN (70-30) 100 UNIT/ML injection Inject under the skin. ondansetron ODT (Zofran-ODT) 4 MG disintegrating tablet Take 4 mg by mouth. OXcarbazepine (Trileptal) 600 MG tablet Take 600 mg by mouth at bedtime. traZODone (Desyrel) 50 MG tablet Take 50 mg by mouth at bedtime. eletriptan (Relpax) 40 MG tablet Take 1 tablet by mouth 1 time if needed for migraine (may repeat x1). May repeat in 2 hours if unresolved. Do not exceed 80 mg in 24 hours. 9 tablet 5 topiramate (Topamax) 25 MG tablet Take 1 tablet by mouth at bedtime. 30 tablet 2 No current facility-administered medications for this visit. Review of Systems Neurological: Positive for headaches. Hematological: Does not bruise/bleed easily. Last Recorded Vitals Vitals: 06/17/24 1043 BP: 118/79 Pulse: 96 Resp: 16 Temp: 36.7 ?C (98.1 ?F) SpO2: 98% Physical ExamVitals reviewed. Constitutional: Appearance: Normal appearance. HENT: Head: Normocephalic and atraumatic. Eyes: General: Lids are normal. Extraocular Movements: Extraocular movements intact. Pupils: Pupils are equal, round, and reactive to light. Cardiovascular: Rate and Rhythm: Normal rate and regular rhythm. Pulmonary: Effort: Pulmonary effort is normal. Breath sounds: Normal breath sounds. Abdominal: General: Bowel sounds are normal. Musculoskeletal: General: Normal range of motion. Cervical back: Normal range of motion and neck supple. Neurological: Mental Status: He is alert. Motor: Motor strength is normal. Coordination: Coordination is intact. Deep Tendon Reflexes: Reflexes are normal and symmetric. Psychiatric: Mood and Affect: Mood normal. Speech: Speech normal. Behavior: Behavior normal. Neurological ExamMental Status Alert. Speech is normal. Cranial NervesCN II: Visual acuity is normal. Visual horton full to confrontation. CN III, IV, : Extraocular movements intact bilaterally. Normal lids and orbits bilaterally. Pupils equal round and reactive to light bilaterally. CN V: Facial sensation is normal. CN VII: Full and symmetric facial movement. CN VIII: Hearing is normal. CN IX, X: Palate elevates symmetrically. Normal gag reflex. CN XI: Shoulder shrug strength is normal. CN XII: Tongue midline without atrophy or fasciculations. MotorNormal muscle bulk throughout. Normal muscle tone. No abnormal involuntary movements. Strength is 5/5 throughout all four extremities. SensorySensation is intact to light touch, pinprick, vibration and proprioception in all four extremities. ReflexesDeep tendon reflexes are 2+ and symmetric in all four extremities. Coordination Lwcdbt-ti-htoa, rapid alternating movements and uwxf-da-oqsv normal bilaterally without dysmetria. GaitNormal casual, toe, heel and tandem gait. Relevant Resultsnone Assessment/Plan Diagnoses and all orders for this visit: Other headache syndrome - Vitamin B1 Level; Future - C-Reactive Protein; Future - Sedimentation Rate; Future - Complete Blood Count w/Diff and Platelet; Future - Copper Level; Future - Ceruloplasmin; Future - Zinc Level; Future - MRI brain wo IV contrast; Future Other orders - eletriptan (Relpax) 40 MG tablet; Take 1 tablet by mouth 1 time if needed for migraine (may repeat x1). May repeat in 2 hours if unresolved. Do not exceed 80 mg in 24 hours. - topiramate (Topamax) 25 MG tablet; Take 1 tablet by mouth at bedtime. Will check brain MRI and additional labs as noted. Start Topamax 25 mg at night for prevention and Relpax 40 mg as needed for breakthrough headache. Headaches are very migrainous by their description. [facility]2024-09-09 11:19:17Upcoming Encounters Scheduled Orders Name Type Priority Associated Diagnoses Orde r Schedule Vitamin B1 Level Lab Routine Other heada alysha syndrome Expected: 06/17/2024 (Approximate), Expires: 06/17/2025 C-Reactive Protein Lab Routine Other hea dache syndrome Expected: 06/17/2024 (Approximate), Expires: 06/17/2025 Sedimentation Rate Lab Routine Other hea dache syndrome Expected: 06/17/2024 (Approximate), Expires: 06/17/2025 Complete Blood Count w/Diff and Platelet Lab Routine Other headache syndrome Expected: 06/17/2024 (Approximate), Expires: 06/17/2025 Copper Level Lab Routine Other headache syndrome Expected: 06/17/2024 (Approximate), Expires: 06/17/2025 Ceruloplasmin Lab Routine Other headache syndrome Expected: 06/17/2024 (Approximate), Expires: 06/17/2025 Zinc Level Lab Routine Other headache syndrome Expected: 06/17/2024 (Approximate), Expires: 06/17/2025 MRI brain wo IV contrast Imaging Routine Oth er headache syndrome Expected: 06/17/2024, Expires: 06/17/2025 Health Maintenance Due Date Last Done Comments Diabetes: Foot Exam 2010 Diabetes: Retinopathy Screening 2010 HPV Vaccines (2 - Risk male 3-dose series) 04/28/2017 03/31/2017 Diabetes: Hemoglobin A1C 10/10/2023 07/10/2023 Diabetes: Urine Protein Screening 03/31/2024 03/31/2023 Influenza Vaccine (#1) 2024 3, 08/28/2017, 07/20/2015, Additional history exists Lipid Panel 07/31/2024 07/31/2023 Pneumococcal Vaccine: Pediatrics (0 to 5 Years) and At-Risk Patients (6 to 64 Years) (3 of 3 - PPSV23 or PCV20) 12/16/2024 12/17/2019, 02/27/2015, 04/12/2013, Additional history exists DTaP/Tdap/Td Vaccines (9 - Td or Tdap) 05/26/2033 05/26/2023, 04/12/2013, 01/24/2013, Additional history exists Hepatitis A Vaccines Completed 01/23/2014, 03/15/2013, 06/22/2006, Additional history exists Hepatitis B Vaccines Completed 01/23/2014, 03/15/2013, 01/24/2013, Additional history exists HIB Vaccines Completed 02/27/2015, 01/07, 01/24/2013, Additional history exists IPV Vaccines Completed 03/30/2015, 01/07, 04/12/2013, Additional history exists Varicella Vaccines Completed 06/15/2016, 0 03/30/2015, 02/14/2005 Meningococcal Vaccine Completed 03/31/2017, 013 Rotavirus Vaccines Aged Out No longer eligible based on patient's age to complete this topic [id number] 11:19:17 Diagnosis Other headache syndrome - Pr imary [facility]lineErardvw3644-00-54 11:19:17 [facility]lineLqovshg9826-83-44 14:59:41 Patient notified via private, detailed voicemail that he needs to obtain the requested letter from his oncologist. Closing encounter. Elvira Robins LVN 02/02/2024 3:00 PM Elvira Robins [facility], 1928–19832024-04-25 18:02:16 He needs to get that from his oncologist. He is also due for a follow up and labs considering he has uncontrolled diabetes among other issues. [place] [id number] 08:56:58 Please review and advise [place] [id number] 08:50:16 Pt is requesting a letter stating that he is in remission from his cancer and is not disabled. He is needing it for employment and would like it mailed to the address on file.. [facility] Leslie CuellarThe Christ HospitalZaqzpl1057-46-89 13:36:26 Images from the original note were not included. Last Refilled: 03/24/23 Notes: [facility]/pharmacy #[id number] - [address] AT [facility] ALT, AST not in range Recent Visits Date Type Provider Dept 07/31/23 Office Visit Emre Gan, SUPERVISOR [employer] [facility] 07/10/23 Office Visit Emre Gan, SUPERVISOR [employer] [facility] 05/26/23 Office Visit AneEmre armenta, SUPERVISOR [employer]ING [facility] 04/13/23 Office Visit Emre Gan, SUPERVISOR [employer]ING [facility] 03/31/23 Office Visit Emre Gan, SUPERVISOR [employer]ING [facility] 03/24/23 Office Visit Melly Barber PA [facility] 08/04/22 Office Visit Emre Gan, SUPERVISOR [employer] [facility] 07/05/22 Office Visit Emre Gan, SUPERVISOR [employer] [facility] 06/20/22 Office Visit AneEmre armenta, SUPERVISOR [employer]ING [facility] Showing recent visits within past 540 days with a meds authorizing provider and meeting all other requirements Future Appointments No visits were found meeting these conditions. Showing future appointments within next 150 days with a meds authorizing provider and meeting all other requirements Name from pharmacy: ROSUVASTATIN CALCIUM 20 MG TAB Will file in chart as: ROSUVASTATIN 20 mg tablet Sig: TAKE 1 TABLET BY MOUTH EVERYDAY AT BEDTIME Disp: 90 tablet Refills: 1 Start: 09/22/2023 Class: eRX For: Hypertriglyceridemia, Dyslipidemia Last ordered: 6 months ago (03/24/2023) by ORION Tavera Last refill: 06/27/2023 Rx #: [id number] Cardiovascular: Antilipid - HMG-CoA Reductase Inhibitors Gelikd0509/22/2023 11:30 AM Protocol Details AST in normal range and within 360 days ALT in normal range and within 360 days Valid encounter within last 12 months Total Cholesterol within 360 days LDL within 360 days HDL within 360 days Triglycerides within 360 days To be filled at: [facility]/pharmacy #[id number] - [place], [place] - [address] AT [facility]
--- NOTE | 2024-09-04 16:14 | ER ---
Nurse's Notes [facility] Name: Sergio Hilton Age: 23 yrs Sex: Male : 2000 Arrival Date: 09/04/2024 Time: 16:00 Bed IW1 Private MD: Diagnosis: Unspecified acute conjunctivitis, left eye Presentation: 09/04 16:09 Chief complaint: Patient states: L eye watering, irritation started today. Eye was ll1 crusted this AM. Coronavirus screen: Client denies travel out of the [place] in the last 14 days. At this time, the client does not indicate any symptoms associated with coronavirus-19. Ebola Screen: Patient denies travel to an Ebola-affected area in the 21 days before illness onset. Initial Sepsis Screen: Does the patient meet any 2 criteria? No. Patient's initial sepsis screen is negative. Does the patient have a suspected source of infection? No. Patient's initial sepsis screen is negative. Risk Assessment: Do you want to hurt yourself or someone else? Patient reports no desire to harm self or others. Onset of symptoms was September 04, 2024. 16:09 Method Of Arrival: Ambulatory ll1 16:09 Acuity: YURI 4 ll1 Historical: - Allergies: 16:09 chemo; ll1 16:09 Latex; ll1 - PMHx: 16:09 Bipolar disorder; diabetes mellitus; Leukemia; Irritable bowel syndrome; ll1 - PSHx: 16:09 Appendectomy; ll1 - Immunization history:: Adult Immunizations up to date. - Social history:: Smoking status: Patient denies any tobacco usage or history of. Vital Signs: 16:09 BP 153 / 101; Pulse 110; Resp 17; Temp 97.8; Pulse Ox 100% ; Pain 0/10; ll1 16:09 Pain Scale: Adult ll1 ED Course: 16:03 Patient arrived in ED. ra3 16:05 Jessica Pantoja FNP-C [facility]. kb 16:05 Ulises Sheikh MD is Attending Physician. kb 16:11 Triage completed. ll1 16:11 Arm band placed on. ll1 Administered Medications: No medications were administered Outcome: 16:13 Discharge ordered by . kb 16:18 Patient left the ED. ll1 Signatures: Jessica Pantoja FNP-C FNP-Ckb Lewis, Lynsay, RN RN ll1 Tamara Hudson ra3 Corrections: (The following items were deleted from the chart) 16:11 16:09 Resp 17bpm; Pulse Ox 100%; Temp 97.8F; ll1 ll1
--- NOTE | 2024-09-04 16:14 | EDPHYS ---
Physician Documentation [facility] Name: Sergio Hilton Age: 23 yrs Sex: Male : 2000 Arrival Date: 09/04/2024 Time: 16:00 Bed IW1 Private MD: ED Physician Ulises Sheikh HPI: 09/04 22:05 This 23 yrs old Male presents to ER via Ambulatory with complaints of Drainage kb From Eye - left. 22:05 Pt is a 23 year old male who presents for redness and drainage from left eye that kb started upon waking this morning. Denies any other symptoms. Denies visual disturbances. Historical: - Allergies: 16:09 chemo; ll1 16:09 Latex; ll1 - PMHx: 16:09 Bipolar disorder; diabetes mellitus; Leukemia; Irritable bowel syndrome; ll1 - PSHx: 16:09 Appendectomy; ll1 - Immunization history:: Adult Immunizations up to date. - Social history:: Smoking status: Patient denies any tobacco usage or history of. ROS: 22:05 Constitutional: As per HPI kb Exam: 22:05 Constitutional: This is a well developed, well nourished patient who is awake, alert, kb and in no acute distress. Head/Face: Normocephalic, atraumatic. Cardiovascular: Regular rate Respiratory: Respirations even and unlabored. No increased work of breathing. Talking in full sentences Skin: Warm, dry with normal turgor. Normal color. MS/ Extremity: Pulses equal, no cyanosis. Neurovascular intact. Full, normal range of motion. Neuro: Awake and alert, GCS 15, oriented to person, place, time, and situation. 22:05 Eyes: Periorbital structures: appear normal, Pupils: equal, round, and reactive to light and accomodation, Extraocular movements: intact throughout, Conjunctiva: exudate, in the left eye, injected, in the left eye, Vital Signs: 16:09 BP 153 / 101; Pulse 110; Resp 17; Temp 97.8; Pulse Ox 100% ; Pain 0/10; ll1 16:09 Pain Scale: Adult ll1 MDM: 16:05 Medical Screening Exam initiated kb 22:05 Differential diagnosis: Corneal abrasion of Foreign body in Data reviewed: vital signs, kb nurses notes. Counseling: I had a detailed discussion with the patient and/or guardian regarding the historical points, exam findings, and any diagnostic results supporting the discharge/admit diagnosis, the need for outpatient follow up, a family practitioner, to return to the emergency department if symptoms worsen or persist or if there are any questions or concerns that arise at home. Administered Medications: No medications were administered Disposition Summary: 09/04/24 16:13 Discharge Ordered Notes: Location: Home kb Condition: Stable kb Diagnosis - Unspecified acute conjunctivitis, left eye kb Followup: kb - With: Emergency Department - When: As needed - Reason: Worsening of condition Followup: kb - With: Private Physician - When: 2 - 3 days - Reason: Recheck today's complaints, Continuance of care, Re-evaluation by your physician Discharge Instructions: - Discharge Summary Sheet kb - Bacterial Conjunctivitis, Adult, [id number] kb Forms: - Medication Reconciliation Form kb - Antibiotic Education kb - Prescription Opioid Use kb - Patient Portal Instructions kb - Leadership Thank You Letter kb Prescriptions: - Vigamox 0.5 % Ophthalmic Drops - instill 1 drop OPHTHALMIC route every 8 hours for 7 days; 5 milliliter; kb Refills: 0, Product Selection Permitted Signatures: Jessica Pantoja, BENZOL OPERATOR-C DANILO-Liya Cruz, RN RN ll1
[2024-09-04 18:28] VITALS: BP 153/101; TEMP 97.8; O2SAT 100
== END 2024-09-04 16:18 | disposition home or self-care (01) ==
LOC: ER 16:00
DX: H10.32 Unspecified acute conjunctivitis, left eye (principal)
CPT/HCPCS: 99281

== ENCOUNTER 2024-11-17 04:25 | Emergency (ER) | payer OTHER ==
--- OUTSIDE RECORDS SUMMARY | 2024-11-17 04:33 | XMS REPORT | Continuity of Care Document ---
Author Name Unknown Address [address] [facility] [address] [place] [address] [facility] thconnect Address [address] [facility] [address] [place] [address] Care Team Providers Care Drying Can Worker Name Role Phone Nicole Bateman MD, Christopher Bondzeeshan Primary Care Physici an Esther Corrigan MD Attending Clinician [phone] ESTHER CORRIGAN Attending Clinician Unavail able MELLY BARBER Attending Clinician Unavailable Melly Guzman Attending Clinician [phone] EMRE GAN Attending Clinician Unavailable Emre Nieves Attending Clinician [phone] ANN MCKNIGHT Attending Clinician Unavailable Doctor Unassigned, [place] Attending Clinician U navailable Lab, Ang - Db Attending Clinician Unavailable Ann Fisher Attending Clinician [phone] RICHARD CRUZ Attending Clinician UnavailRichard Desir MD Attending Clinician [phone] ROSEANNE LEVINE Attending Clinician Unavailable Roseanne Levine MD Attending Clinician [phone] Luis Miguel Estrada MD Attending Clinician + [phone] Bebeto Navas Attending Clinician Kateryna Verduzco MD Attending Clinician [phone] KATERYNA VERDUZCO Attending Clinician Unavailable BEBETO ARCE Attending Clinician Unavailable Zachary GUNITE NOZZLE OPERATOR, Jama Attending Clinician [phone] JAMA LEE Attending Clinician Unavailsawyer Hurt GUNITE NOZZLE OPERATOR, Heide Attending Clinician [phone] HEIDE HURT Attending Clinician Unavailable Provider, [facility] Attending Clinician Unavailable CHRISTOPHER TAMAYO Attending Clinician Unavailable Demetri Lake MD Attending Clinician [phone] DEMETRI LAKE Attending Clinician Unavailable DEMETRI LAKE Attending Clinician Unavailable Joan Carlson MD Attending Clinician [phone] SHERIF HERNANDEZ Attending Clinician Unavailable ROSEANNE LEVINE Admitting Clinician Unavailable Payers Payer Name Policy Type Policy Number Effective Date Expirati on Date Source [facility] HMO/CHOICE COMM [id number] 2024 00:00:00 [facility] [id number] 2022 00:00:00 [facility] MEDICA[facility] [id number] 2018 00:00:00 Problems Condition Name Condition Details [...] liver disease) Disease Active 11-25 00:00: 00 [facility] Exposure to medical therapeuti c radiation Exposure to medical therapeuti c radiation Disease Active 11-15 00:00: 00 Overview: Formattin g of this note might be different from the original. Formattin g of this note might be different from the original. 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 At risk for alteration in endocrine function [...] pediatric patient Disease Active 11-19 00:00: 00 [facility] At risk for alteration in endocrine function At risk for alteration in endocrine function Disease Active 11-19 00:00: 00 [facility] Obesity due to excess calories without serious comorbidit y with body mass index (BMI) in 95th to 98th percentile for age in pediatric patient Obesity due to excess calories without serious comorbidit y with body mass index (BMI) in 95th to 98th percentile for age in pediatric patient Disease Active 11-19 00:00: 00 [facility] Mild cognitive impairment Mild cognitive impairment Disease [...] supplemen t 4000 units/day x [address] 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 Anxiety Anxiety Disease Active 02-28 00:00: 00 Joanne Orta ADHD (attention deficit hyperactiv ity disorder) ADHD (attention deficit hyperactiv ity disorder) Disease Active 12-03 00:00: 00 Overview: Formattin g of this note might be different from the original. Formattin g of this note might be different from the original. Taking focalin [facility] Essential hypertensi on Essential hypertensi on Disease Active 1-21 00:00: 00 Overview: Formattin g of this note might be different from the original. 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 Blood transfusio n without reported diagnosis Blood transfusio n without reported diagnosis Disease Active Overview: Formattin g of this note might be different from the original. 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 Leukemia Leukemia Disease Resolve d 06-17 00:00: 00 2024-06-17 00:00:00 2024-06-17 10:40:28 Joanne Orta History of appendecto my History of appendecto my Disease Resolve d 2019-0 2-07 00:00: 00 2024-06-17 00:00:00 2024-06-17 10:40:28 Joanne Orta Care 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 Care 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 Disease Resolve d 2017- 1- 00:00: 00 2024-06-17 00:00:00 2024-06-17 10:40:28 Joanne Spain [facility] Allergies, Adverse Reactions, Alerts Allergy Name Allergy Type Status Severity Reaction(s) Onset Date Inactive Date Treating Clinician Comments Source Permethr in Propensi ty to adverse reaction s Active Itching 04-29 00:00: 00 [facility] PERMETHR IN DRUG INGREDI Active ITCHING 04-29 00:00: 00 [facility] Latex Propensi ty to adverse reaction s Active Rash 02-23 00:00: 00 Redness to site where latex touches [facility] LATEX DRUG INGREDI Active Med Rash 02-23 00:00: 00 [facility] Pegaspar gase Propensi ty to adverse reaction s Active Hives 12-03 00:00: 00 Pre-medic ate peg-aspar aginase with diphenhyd ramine [facility] PEGASPAR GASE DRUG INGREDI Active Low Hives 12-03 00:00: 00 [facility] ALLERGIE S NOT ON FILE SYSTEMIC Active MHEOUT ALLERGIE S NOT ON FILE SYSTEMIC Active MHEOUT ALLERGIE S NOT ON FILE SYSTEMIC Active MHEOUT NO KNOWN ALLERGIE S SYSTEMIC Active MHEOUT Social History Social Habit Start Date Stop Date Quantity Comments Source Gender identity Deven Spain [facility] Sexual orientation [employer] [facility] History of tobacco use Passive smoker [facility] Tobacco use and exposure 2024-06-17 00:00:00 2024-06-17 00:00:00 Smokeless tobacco non-user [facility] Alcoholic beverage intake 2024-06-17 00:00:00 2024-06-17 00:00:00 Lifetime non-drinker (finding) [facility] History of Social function 2024-06-17 00:00:00 2024-06-17 00:00:00 [facility] Alcohol intake 2023-07-31 00:00:00 2023-07-31 00:00:00 Current non-drinker of alcohol (finding) [facility] Exposure to SARS-CoV-2 (event) 2023-03-14 00:00:00 2023-03-24 09:25:00 Not sure [facility] Tobacco Comment 2022-06-20 00:00:00 2022-06-20 00:00:00 Family smokes outside [facility] Sex assigned at 2000 00:00:00 2000 00:00:00 [facility] Smoking Status Start Date Stop Date Source [...] 20 mg tablet 2022-10 00:00: 00 Yes [id number] 20mg TAKE 1 TABLET BY MOUTH EVERYDAY AT BEDTIME [facility] ibuprofen 600 mg tablet 2022-10 0 00:00: 00 Yes TAKE 1 TABLET BY MOUTH EVERY 6 HOURS NEEDED (TAKE WITH FOOD) [facility] blood sugar diagnostic (ONETOUCH ULTRA TEST) strip 2022-10 00:00: 00 Yes [id number] Use as directed to test blood sugars twice daily E11.65 [facility] Blood-Gluco se Meter (ONETOUCH VERIO METER) [facility] 2022-10 00:00: 00 Yes Use as directed to check blood sugars twice daily E11.65 [facility] Lancets (ONETOUCH ULTRASOFT LANCETS) [facility] 2022-10 00:00: 00 Yes Use as directed to check blood sugars twice daily E11.65 [facility] trazodone HCl (TRAZODONE ORAL) 2022-10 11:40: 51 07-18 00:00 :00 No Take by mouth. [facility] citalopram 10 mg tablet 2022-10 11:40: 51 07-18 00:00 :00 No 10mg Take 10 mg by mouth daily. [facility] tirzepatide (MOUNJARO) 5 mg/0.5 mL PnIj 2022-10 00:00: 00 Yes [id number] 5mg inject 5 mg under the skin weekly. [facility] Blood-Gluco se Sensor (FREESTYLE BURAK 3 SENSOR) Mari 2022-10 0 00:00: 00 07-20 00:00 :00 No [id number] 1{each} inject 1 Each under the skin every 14 (fourteen) days. Use as directed to check blood sugar 4X for uncontroll ed type [address] [facility] citalopram 20 mg tablet 2022-10 0 00:00: 00 Yes 20mg Take 1 tablet by mouth in the morning. [facility] traZODone 50 mg tablet 2022-10 0 00:00: 00 Yes 50mg Take 1 tablet by mouth at bedtime. [facility] proMETHazin e 25 mg tablet 2022-10 0 00:00: 00 Yes [id number] 25mg Take 1 tablet by mouth every 6 (six) hours as needed for Nausea and Vomiting (N/V). [facility] Insulin Glargine (LANTUS SOLOSTAR U-100 INSULIN) 100 unit/mL (3 mL) injection 2022-10 0 00:00: 00 Yes [id number] 20U inject 20 Units under the skin in the morning and 20 Units in the evening. [facility] Insulin Glargine (LANTUS SOLOSTAR U-100 INSULIN) 100 unit/mL (3 mL) injection 2022-10 0 00:00: 00 Yes [id number] 20U inject 20 Units under the skin in the morning and 20 Units in the evening. [facility] semaglutide (OZEMPIC) 1 mg/dose (4 mg/3 mL) PnIj 8-18 00:00: 00 07-18 00:00 :00 No [id number] 1mg inject 1 mg under the skin weekly. [facility] Insulin Glargine (LANTUS SOLOSTAR U-100 INSULIN) 100 unit/mL (3 mL) injection 7-14 00:00: 00 07-10 00:00 :00 No [id number] 15U inject 15 Units under the skin in the morning and 15 Units in the evening. [facility] semaglutide (OZEMPIC) 0.25 mg or 0.5 mg(2 mg/1.5 mL) PnIj 06 00:00: 00 05-26 00:00 :00 No [id number] .5mg inject 0.5 mg under the skin weekly. [facility] Insulin Glargine (LANTUS SOLOSTAR U-100 INSULIN) 100 unit/mL (3 mL) injection 03-31 00:00: 00 04-21 00:00 :00 No [id number] 15U inject 15 Units under the skin in the morning and 15 Units in the evening. [facility] semaglutide (OZEMPIC) 0.25 mg or 0.5 mg(2 mg/1.5 mL) Ij 03-31 00:00: 00 04-13 00:00 :00 No [id number] .25mg inject 0.25 mg under the skin weekly. [facility] icosapent ethyL (VASCEPA) 1 gram capsule 03-24 00:00: 00 Yes [id number] 2g Take 2 capsules by mouth in the morning and 2 capsules in the evening. [facility] ezetimibe 10 mg tablet 03-24 00:00: 00 Yes [id number] 10mg Take 1 tablet by mouth in the morning. [facility] lisinopriL 2.5 mg tablet 16 00:00: 00 Yes [id number] 2.5mg Take 1 tablet by mouth in the morning. [facility] rosuvastati n (CRESTOR) 20 mg tablet 16 00:00: 00 09-29 00:00 :00 No [id number] 20mg Take 1 tablet by mouth at bedtime. [facility] icosapent ethyL (VASCEPA) 1 gram capsule 14 00:00: 00 03-24 00:00 :00 No [id number] 2g Take 2 capsules by mouth in the morning and 2 capsules in the evening. [facility] ezetimibe 10 mg tablet 5-22 00:00: 00 03-24 00:00 :00 No [id number] 10mg Take 1 tablet by mouth in the morning. [facility] icosapent ethyL (VASCEPA) 1 gram capsule 4-14 00:00: 00 03-22 00:00 :00 No [id number] 2g Take 2 capsules by mouth in the morning and 2 capsules in the evening. [facility] rosuvastati n (CRESTOR) 20 mg tablet 4-03 00:00: 00 03-24 00:00 :00 No [id number] 20mg Take 1 tablet by mouth at bedtime. [facility] lisinopriL 2.5 mg tablet 1-10 00:00: 00 03-24 00:00 :00 No [id number] 2.5mg Take 1 tablet by mouth in the morning. [facility] metformin ER 750 mg 24 hr tablet 2021-10 2-30 00:00: 00 Yes [id number] 750mg Take 1 tablet by mouth daily with breakfast. [facility] glipiZIDE XL 10 mg 24 hr tablet 2021-10 2-30 00:00: 00 04-21 00:00 :00 No [id number] 20mg Take 2 tablets by mouth daily with breakfast. [facility] LISINOPRIL 2.5 mg tablet 2021-10 0-13 00:00: 00 10-18 00:00 :00 No [id number] TAKE 1 TABLET BY MOUTH EVERY DAY [facility] ezetimibe 10 mg tablet 0 9-27 00:00: 00 02-27 00:00 :00 No [id number] 10mg Take 1 tablet by mouth in the morning. [facility] rosuvastati n (CRESTOR) 20 mg tablet 9-27 00:00: 00 01-09 00:00 :00 No [id number] 20mg Take 1 tablet by mouth at bedtime. [facility] icosapent ethyL (VASCEPA) 1 gram capsule 9-14 00:00: 00 07-23 04:59 :00 No [id number] 2g Take 2 capsules by mouth in the morning and 2 capsules in the evening. Do all this for [address] [facility] semaglutide (OZEMPIC) 0.25 mg or 0.5 mg(2 mg/1.5 mL) PnIj 06-20 00:00: 00 03-24 00:00 :00 No [id number] .5mg inject 0.5 mg under the skin weekly. Start 0.25 mg weekly for 4 weeks, then 0.[address] [facility] glipiZIDE XL 10 mg 24 hr tablet 06-20 00:00: 00 10-07 00:00 :00 No [id number] 10mg Take 1 tablet by mouth daily with breakfast. [facility] metformin ER 750 mg 24 hr tablet 06-20 00:00: 00 10-07 00:00 :00 No [id number] 750mg Take 1 tablet by mouth daily with breakfast. [facility] clobetasoL 0.05 % ointment 805 00:00: 00 Yes [id number] Apply to area(s) 2 (two) times daily. [facility] lisinopriL 2.5 mg tablet 6-27 00:00: 00 07-21 00:00 :00 No [id number] 2.5mg Take 1 tablet by mouth daily. [facility] guanFACINE (Intuniv) 3 mg 24 hr tablet guanFACINE (Intuniv) 3 mg 24 hr tablet 03-06 00:00: 00 Yes 1{tbl} Take 1 tablet by mouth at bedtime. Joanne Spain [facility] Cholecalcif ricardo, Vitamin D3, 50 mcg (2,000 unit) capsule 03-06 00:00: 00 Yes 2{capsu le} Take 2 capsules by mouth daily. [facility] Cholecalcif ricardo, Vitamin D3, 50 mcg (2,000 unit) capsule 03-06 00:00: 00 Yes 4000U Take 2 capsules by mouth in the morning. [facility] ROSUVASTATI N 20 mg tablet 03-03 00:00: 00 07-05 00:00 :00 No [id number] 20mg TAKE 1 TABLET BY MOUTH AT BEDTIME. MUST BE SEEN FOR FURTHER REFILLS [facility] famotidine 20 mg tablet 02-07 00:00: 00 Yes TAKE 1 TABLET BY MOUTH EVERY 12 [address] FOR [address] [facility] ondansetron 4 mg tablet 02-07 00:00: 00 07-18 00:00 :00 No TAKE 1 TABLET BY MOUTH EVERY [address] [facility] OXcarbazepi ne 600 mg tablet 01-31 00:00: 00 Yes 600mg Take 1 tablet by mouth in the morning and 1 tablet in the evening. [facility] ARIPiprazol e 5 mg tablet 01-18 00:00: 00 Yes 5mg Take 1 tablet by mouth at bedtime. [facility] ivermectin 3 mg tablet 10-20 00:00: 00 Yes [id number] 13.5mg Take 4.5 tablets by mouth weekly. [facility] trazodone HCl (TRAZODONE ORAL) 2020-10 13:30: 06 Yes Take by mouth. [facility] citalopram 10 mg tablet 2020-10 13:30: 06 Yes 10mg Take 10 mg by mouth daily. [facility] cetirizine (ZYRTEC) 10 mg tablet 10-11 00:00: 00 Yes [id number] 10mg Take 1 Tab by mouth daily. [facility] Immunizations Ordered Immunization Name Filled Immunization Name Date Status Comments Source Influenza, injectable, MDCK, quadrivalent Influenza, injectable, MDCK, quadrivalent 2023-07-31 00:00:00 Completed [facility] TDAP 2023-05-26 00:00:00 Completed [facility] Tdap Tdap 2023-05-26 00:00:00 Completed [facility] SARS-COV-2 COVID-19 PFIZER VACCINE 2021-09-06 00:00:00 Completed [facility] SARS-COV-2 COVID-19 PFIZER VACCINE 2021-09-06 00:00:00 Completed [facility] SARS-COV-2 COVID-19 PFIZER VACCINE 2021-09-06 00:00:00 Completed [facility] SARS-COV-2 COVID-19 PFIZER VACCINE 2021-09-06 00:00:00 Completed [facility] SARS-COV-2 COVID-19 PFIZER VACCINE 2021-09-06 00:00:00 Completed [facility] SARS-COV-2 COVID-19 PFIZER VACCINE 2021-09-06 00:00:00 Completed [facility] SARS-COV-2 COVID-19 PFIZER VACCINE 2021-09-06 00:00:00 Completed [facility] SARS-COV-2 COVID-19 PFIZER VACCINE 2021-09-06 00:00:00 Completed [facility] SARS-COV-2 COVID-19 PFIZER VACCINE 2021-09-06 00:00:00 Completed [facility] SARS-COV-2 COVID-19 PFIZER VACCINE 2021-09-06 00:00:00 Completed [facility] SARS-COV-2 COVID-19 PFIZER VACCINE 2021-09-06 00:00:00 Completed [facility] SARS-COV-2 COVID-19 PFIZER VACCINE 2021-09-06 00:00:00 Completed [facility] SARS-COV-2 COVID-19 PFIZER VACCINE 2021-09-06 00:00:00 Completed [facility] SARS-COV-2 COVID-19 PFIZER VACCINE 2021-09-06 00:00:00 Completed [facility] SARS-COV-2 COVID-19 PFIZER VACCINE 2021-09-06 00:00:00 Completed [facility] SARS-COV-2 COVID-19 PFIZER VACCINE 2021-09-06 00:00:00 Completed [facility] SARS-COV-2 COVID-19 PFIZER VACCINE 2021-09-06 00:00:00 Completed [facility] SARS-COV-2 COVID-19 PFIZER VACCINE 2021-09-06 00:00:00 Completed [facility] SARS-COV-2 COVID-19 PFIZER VACCINE 2021-09-06 00:00:00 Completed [facility] SARS-COV-2 COVID-19 PFIZER VACCINE 2021-09-06 00:00:00 Completed [facility] SARS-COV-2 COVID-19 PFIZER VACCINE 2021-09-06 00:00:00 Completed [facility] SARS-COV-2 COVID-19 PFIZER VACCINE 2021-09-06 00:00:00 Completed [facility] SARS-COV-2 COVID-19 PFIZER VACCINE 2021-09-06 00:00:00 Completed [facility] SARS-COV-2 COVID-19 PFIZER VACCINE 2021-09-06 00:00:00 Completed [facility] SARS-COV-2 COVID-19 PFIZER VACCINE 2021-09-06 00:00:00 Completed [facility] SARS-COV-2 COVID-19 PFIZER VACCINE 2021-09-06 00:00:00 Completed [facility] SARS-COV-2 COVID-19 PFIZER VACCINE 2021-09-06 00:00:00 Completed [facility] SARS-COV-2 COVID-19 PFIZER VACCINE 2021-09-06 00:00:00 Completed [facility] SARS-COV-2 COVID-19 PFIZER VACCINE 2021-09-06 00:00:00 Completed [facility] SARS-COV-2 COVID-19 PFIZER VACCINE 2021-09-06 00:00:00 Completed [facility] SARS-COV-2 COVID-19 PFIZER VACCINE 2021-02-06 00:00:00 Completed [facility] SARS-COV-2 COVID-19 PFIZER VACCINE 2021-02-06 00:00:00 Completed [facility] SARS-COV-2 COVID-19 PFIZER VACCINE 2021-02-06 00:00:00 Completed [facility] SARS-COV-2 COVID-19 PFIZER VACCINE 2021-02-06 00:00:00 Completed [facility] SARS-COV-2 COVID-19 PFIZER VACCINE 2021-02-06 00:00:00 Completed [facility] SARS-COV-2 COVID-19 PFIZER VACCINE 2021-02-06 00:00:00 Completed [facility] SARS-COV-2 COVID-19 PFIZER VACCINE 2021-02-06 00:00:00 Completed [facility] SARS-COV-2 COVID-19 PFIZER VACCINE 2021-02-06 00:00:00 Completed [facility] SARS-COV-2 COVID-19 PFIZER VACCINE 2021-02-06 00:00:00 Completed [facility] SARS-COV-2 COVID-19 PFIZER VACCINE 2021-02-06 00:00:00 Completed [facility] SARS-COV-2 COVID-19 PFIZER VACCINE 2021-02-06 00:00:00 Completed [facility] SARS-COV-2 COVID-19 PFIZER VACCINE 2021-02-06 00:00:00 Completed [facility] SARS-COV-2 COVID-19 PFIZER VACCINE 2021-02-06 00:00:00 Completed [facility] SARS-COV-2 COVID-19 PFIZER VACCINE 2021-02-06 00:00:00 Completed [facility] SARS-COV-2 COVID-19 PFIZER VACCINE 2021-02-06 00:00:00 Completed [facility] SARS-COV-2 COVID-19 PFIZER VACCINE 2021-02-06 00:00:00 Completed [facility] SARS-COV-2 COVID-19 PFIZER VACCINE 2021-02-06 00:00:00 Completed [facility] SARS-COV-2 COVID-19 PFIZER VACCINE 2021-02-06 00:00:00 Completed [facility] SARS-COV-2 COVID-19 PFIZER VACCINE 2021-02-06 00:00:00 Completed [facility] SARS-COV-2 COVID-19 PFIZER VACCINE 2021-02-06 00:00:00 Completed [facility] SARS-COV-2 COVID-19 PFIZER VACCINE 2021-02-06 00:00:00 Completed [facility] SARS-COV-2 COVID-19 PFIZER VACCINE 2021-02-06 00:00:00 Completed [facility] SARS-COV-2 COVID-19 PFIZER VACCINE 2021-02-06 00:00:00 Completed [facility] SARS-COV-2 COVID-19 PFIZER VACCINE 2021-02-06 00:00:00 Completed [facility] SARS-COV-2 COVID-19 PFIZER VACCINE 2021-02-06 00:00:00 Completed [facility] SARS-COV-2 COVID-19 PFIZER VACCINE 2021-02-06 00:00:00 Completed [facility] SARS-COV-2 COVID-19 PFIZER VACCINE 2021-02-06 00:00:00 Completed [facility] SARS-COV-2 COVID-19 PFIZER VACCINE 2021-02-06 00:00:00 Completed [facility] SARS-COV-2 COVID-19 PFIZER VACCINE 2021-02-06 00:00:00 Completed [facility] SARS-COV-2 COVID-19 PFIZER VACCINE 2021-02-06 00:00:00 Completed [facility] SARS-COV-2 COVID-19 PFIZER VACCINE 2021-01-16 00:00:00 Completed [facility] SARS-COV-2 COVID-19 PFIZER VACCINE 2021-01-16 00:00:00 Completed [facility] SARS-COV-2 COVID-19 PFIZER VACCINE 2021-01-16 00:00:00 Completed [facility] SARS-COV-2 COVID-19 PFIZER VACCINE 2021-01-16 00:00:00 Completed [facility] SARS-COV-2 COVID-19 PFIZER VACCINE 2021-01-16 00:00:00 Completed [facility] SARS-COV-2 COVID-19 PFIZER VACCINE 2021-01-16 00:00:00 Completed [facility] SARS-COV-2 COVID-19 PFIZER VACCINE 2021-01-16 00:00:00 Completed [facility] SARS-COV-2 COVID-19 PFIZER VACCINE 2021-01-16 00:00:00 Completed [facility] SARS-COV-2 COVID-19 PFIZER VACCINE 2021-01-16 00:00:00 Completed [facility] SARS-COV-2 COVID-19 PFIZER VACCINE 2021-01-16 00:00:00 Completed [facility] SARS-COV-2 COVID-19 PFIZER VACCINE 2021-01-16 00:00:00 Completed [facility] SARS-COV-2 COVID-19 PFIZER VACCINE 2021-01-16 00:00:00 Completed [facility] SARS-COV-2 COVID-19 PFIZER VACCINE 2021-01-16 00:00:00 Completed [facility] SARS-COV-2 COVID-19 PFIZER VACCINE 2021-01-16 00:00:00 Completed [facility] SARS-COV-2 COVID-19 PFIZER VACCINE 2021-01-16 00:00:00 Completed [facility] SARS-COV-2 COVID-19 PFIZER VACCINE 2021-01-16 00:00:00 Completed [facility] SARS-COV-2 COVID-19 PFIZER VACCINE 2021-01-16 00:00:00 Completed [facility] SARS-COV-2 COVID-19 PFIZER VACCINE 2021-01-16 00:00:00 Completed [facility] SARS-COV-2 COVID-19 PFIZER VACCINE 2021-01-16 00:00:00 Completed [facility] SARS-COV-2 COVID-19 PFIZER VACCINE 2021-01-16 00:00:00 Completed [facility] SARS-COV-2 COVID-19 PFIZER VACCINE 2021-01-16 00:00:00 Completed [facility] SARS-COV-2 COVID-19 PFIZER VACCINE 2021-01-16 00:00:00 Completed [facility] SARS-COV-2 COVID-19 PFIZER VACCINE 2021-01-16 00:00:00 Completed [facility] SARS-COV-2 COVID-19 PFIZER VACCINE 2021-01-16 00:00:00 Completed [facility] SARS-COV-2 COVID-19 PFIZER VACCINE 2021-01-16 00:00:00 Completed [facility] SARS-COV-2 COVID-19 PFIZER VACCINE 2021-01-16 00:00:00 Completed [facility] SARS-COV-2 COVID-19 PFIZER VACCINE 2021-01-16 00:00:00 Completed [facility] SARS-COV-2 COVID-19 PFIZER VACCINE 2021-01-16 00:00:00 Completed [facility] SARS-COV-2 COVID-19 PFIZER VACCINE 2021-01-16 00:00:00 Completed [facility] SARS-COV-2 COVID-19 PFIZER VACCINE 2021-01-16 00:00:00 Completed [facility] Pneumococcal Polysaccharide PPSV23 Pneumococcal Polysaccharide PPSV23 2019-12-17 00:00:00 Completed [facility] Pneumococcal Polysaccharide, PPSV23 (PNEUMOVAX) 2019-12-17 00:00:00 Completed [facility] Influenza, injectable, quadrivalent, preservative free Influenza, injectable, quadrivalent, preservative free 2017-08-28 00:00:00 Completed [facility] Influenza Virus Vaccine Quad .5 mL IM 6+ MO 2017-08-28 00:00:00 Completed [facility] HPV 9-Valent HPV 9-Valent 2017-03-31 00:00:00 Completed [facility] Meningococcal MCV4P Meningococcal MCV4P 00:00:00 Completed [facility] HPV9 2017-03-31 00:00:00 Completed [facility] Meningococcal Polysaccharide (groups A, C, Y and W-135) conjugate vaccine (MCV4P) 2017-03-31 00:00:00 Completed [facility] Varicella Varicella 2016-06-15 00:00:00 Completed [facility] Varicella (varivax)(chicken pox) 2016-06-15 00:00:00 Completed [facility] Influenza, seasonal, injectable, preservative free Influenza, seasonal, injectable, preservative free 2015-07-20 00:00:00 Completed [facility] Flu Trivalent 2015-07-20 00:00:00 Completed [facility] MMR MMR 2015-05-05 00:00:00 Completed [facility] MMR 2015-05-05 00:00:00 Completed [facility] MMRV MMRV 2015-03-30 00:00:00 Completed [facility] Proquad (MMR/VARICELLA) 2015-03-30 00:00:00 Completed [facility] IPV 2015-03-30 00:00:00 Completed [facility] IPV IPV 2015-03-30 00:00:00 Completed [facility] HIB 3 Dose Schedule 2015-02-27 00:00:00 Completed [facility] Pneumococcal 13 Conjugate, PCV13 (Prevnar 13) 2015-02-27 00:00:00 Completed [facility] Pneumococcal Conjugate PCV 13 Pneumococcal Conjugate PCV 13 2015-02-27 00:00:00 Completed [facility] Hib (PRP-OMP) Hib (PRP-OMP) 2015-02-27 00:00:00 Completed [facility] HEPATITIS A 2014-01-23 00:00:00 Completed [facility] Heamophilus Influenza B 2014-01-23 00:00:00 Completed [facility] HEPATITIS A 2014-01-23 00:00:00 Completed [facility] Heamophilus Influenza B 2014-01-23 00:00:00 Completed [facility] HEPATITIS A 2014-01-23 00:00:00 Completed [facility] Heamophilus Influenza B 2014-01-23 00:00:00 Completed [facility] HEPATITIS A 2014-01-23 00:00:00 Completed [facility] Heamophilus Influenza B 2014-01-23 00:00:00 Completed [facility] HEPATITIS A 2014-01-23 00:00:00 Completed [facility] Heamophilus Influenza B 2014-01-23 00:00:00 Completed [facility] HEPATITIS A 2014-01-23 00:00:00 Completed [facility] Heamophilus Influenza B 2014-01-23 00:00:00 Completed [facility] HEPATITIS A 2014-01-23 00:00:00 Completed [facility] Heamophilus Influenza B 2014-01-23 00:00:00 Completed [facility] HEPATITIS A 2014-01-23 00:00:00 Completed [facility] Heamophilus Influenza B 2014-01-23 00:00:00 Completed [facility] HEPATITIS A 2014-01-23 00:00:00 Completed [facility] Heamophilus Influenza B 2014-01-23 00:00:00 Completed [facility] HEPATITIS A 2014-01-23 00:00:00 Completed [facility] Heamophilus Influenza B 2014-01-23 00:00:00 Completed [facility] HEPATITIS A 2014-01-23 00:00:00 Completed [facility] Heamophilus Influenza B 2014-01-23 00:00:00 Completed [facility] HEPATITIS A 2014-01-23 00:00:00 Completed [facility] Heamophilus Influenza B 2014-01-23 00:00:00 Completed [facility] HEPATITIS A 2014-01-23 00:00:00 Completed [facility] Heamophilus Influenza B 2014-01-23 00:00:00 Completed [facility] HEPATITIS A 2014-01-23 00:00:00 Completed [facility] Heamophilus Influenza B 2014-01-23 00:00:00 Completed [facility] HEPATITIS A 2014-01-23 00:00:00 Completed [facility] Heamophilus Influenza B 2014-01-23 00:00:00 Completed [facility] HEPATITIS A 2014-01-23 00:00:00 Completed [facility] Heamophilus Influenza B 2014-01-23 00:00:00 Completed [facility] HEPATITIS A 2014-01-23 00:00:00 Completed [facility] Heamophilus Influenza B 2014-01-23 00:00:00 Completed [facility] HEPATITIS A 2014-01-23 00:00:00 Completed [facility] Hib (PRP-T) Hib (PRP-T) 2014-01-23 00:00:00 Completed [facility] Heamophilus Influenza B 2014-01-23 00:00:00 Completed [facility] HEPATITIS A 2014-01-23 00:00:00 Completed [facility] Heamophilus Influenza B 2014-01-23 00:00:00 Completed [facility] HEPATITIS A 2014-01-23 00:00:00 Completed [facility] Heamophilus Influenza B 2014-01-23 00:00:00 Completed [facility] HEPATITIS A 2014-01-23 00:00:00 Completed [facility] Heamophilus Influenza B 2014-01-23 00:00:00 Completed [facility] HEPATITIS A 2014-01-23 00:00:00 Completed [facility] Heamophilus Influenza B 2014-01-23 00:00:00 Completed [facility] HEPATITIS A 2014-01-23 00:00:00 Completed [facility] Hep B, adult Hep B, adult 2014-01-23 00:00:00 Completed [facility] Heamophilus Influenza B 2014-01-23 00:00:00 Completed [facility] HEPATITIS A 2014-01-23 00:00:00 Completed [facility] Heamophilus Influenza B 2014-01-23 00:00:00 Completed [facility] HEPATITIS A 2014-01-23 00:00:00 Completed [facility] Heamophilus Influenza B 2014-01-23 00:00:00 Completed [facility] HEP B, Adult Dosage 2014-01-23 00:00:00 Completed [facility] Hep B, Adol or Pedi Dosage 2014-01-23 00:00:00 Completed [facility] IPV 2014-01-23 00:00:00 Completed [facility] Hep A, ped/adol, 2 dose Hep A, ped/adol, 2 dose 2014-01-23 00:00:00 Completed [facility] IPV IPV 2014-01-23 00:00:00 Completed [facility] DTAP 2013-04-12 00:00:00 Completed [facility] Polio (IPV/OPV) 2013-04-12 00:00:00 Completed [facility] Pneumococcal 7 Conjugate, PCV7 (Prevnar7) 2013-04-12 00:00:00 Completed [facility] DTAP 2013-04-12 00:00:00 Completed [facility] Polio (IPV/OPV) 2013-04-12 00:00:00 Completed [facility] Pneumococcal 7 Conjugate, PCV7 (Prevnar7) 2013-04-12 00:00:00 Completed [facility] DTAP 2013-04-12 00:00:00 Completed [facility] Polio (IPV/OPV) 2013-04-12 00:00:00 Completed [facility] Pneumococcal 7 Conjugate, PCV7 (Prevnar7) 2013-04-12 00:00:00 Completed [facility] DTAP 2013-04-12 00:00:00 Completed [facility] Polio (IPV/OPV) 2013-04-12 00:00:00 Completed [facility] Pneumococcal 7 Conjugate, PCV7 (Prevnar7) 2013-04-12 00:00:00 Completed [facility] DTAP 2013-04-12 00:00:00 Completed [facility] Polio (IPV/OPV) 2013-04-12 00:00:00 Completed [facility] Pneumococcal 7 Conjugate, PCV7 (Prevnar7) 2013-04-12 00:00:00 Completed [facility] DTAP 2013-04-12 00:00:00 Completed [facility] Polio (IPV/OPV) 2013-04-12 00:00:00 Completed [facility] Pneumococcal 7 Conjugate, PCV7 (Prevnar7) 2013-04-12 00:00:00 Completed [facility] DTAP 2013-04-12 00:00:00 Completed [facility] Polio (IPV/OPV) 2013-04-12 00:00:00 Completed [facility] Pneumococcal 7 Conjugate, PCV7 (Prevnar7) 2013-04-12 00:00:00 Completed [facility] DTAP 2013-04-12 00:00:00 Completed [facility] Pneumococcal Conjugate PCV 7 Pneumococcal Conjugate PCV 7 2013-04-12 00:00:00 Completed [facility] Polio (IPV/OPV) 2013-04-12 00:00:00 Completed [facility] Pneumococcal 7 Conjugate, PCV7 (Prevnar7) 2013-04-12 00:00:00 Completed [facility] DTAP 2013-04-12 00:00:00 Completed [facility] Polio (IPV/OPV) 2013-04-12 00:00:00 Completed [facility] Pneumococcal 7 Conjugate, PCV7 (Prevnar7) 2013-04-12 00:00:00 Completed [facility] DTAP 2013-04-12 00:00:00 Completed [facility] Polio (IPV/OPV) 2013-04-12 00:00:00 Completed [facility] Pneumococcal 7 Conjugate, PCV7 (Prevnar7) 2013-04-12 00:00:00 Completed [facility] DTAP 2013-04-12 00:00:00 Completed [facility] Polio (IPV/OPV) 2013-04-12 00:00:00 Completed [facility] Polio, Unspecified Polio, Unspecified 2013-04-12 00:00:00 Completed [facility] Pneumococcal 7 Conjugate, PCV7 (Prevnar7) 2013-04-12 00:00:00 Completed [facility] DTAP 2013-04-12 00:00:00 Completed [facility] Polio (IPV/OPV) 2013-04-12 00:00:00 Completed [facility] Pneumococcal 7 Conjugate, PCV7 (Prevnar7) 2013-04-12 00:00:00 Completed [facility] DTAP 2013-04-12 00:00:00 Completed [facility] Polio (IPV/OPV) 2013-04-12 00:00:00 Completed [facility] Pneumococcal 7 Conjugate, PCV7 (Prevnar7) 2013-04-12 00:00:00 Completed [facility] DTAP 2013-04-12 00:00:00 Completed [facility] Polio (IPV/OPV) 2013-04-12 00:00:00 Completed [facility] Pneumococcal 7 Conjugate, PCV7 (Prevnar7) 2013-04-12 00:00:00 Completed [facility] DTaP DTaP 2013-04-12 00:00:00 Completed [facility] DTAP 2013-04-12 00:00:00 Completed [facility] Polio (IPV/OPV) 2013-04-12 00:00:00 Completed [facility] Pneumococcal 7 Conjugate, PCV7 (Prevnar7) 2013-04-12 00:00:00 Completed [facility] DTAP 2013-04-12 00:00:00 Completed [facility] Polio (IPV/OPV) 2013-04-12 00:00:00 Completed [facility] Pneumococcal 7 Conjugate, PCV7 (Prevnar7) 2013-04-12 00:00:00 Completed [facility] DTAP 2013-04-12 00:00:00 Completed [facility] Polio (IPV/OPV) 2013-04-12 00:00:00 Completed [facility] Pneumococcal 7 Conjugate, PCV7 (Prevnar7) 2013-04-12 00:00:00 Completed [facility] DTAP 2013-04-12 00:00:00 Completed [facility] IPV IPV 2013-04-12 00:00:00 Completed [facility] Polio (IPV/OPV) 2013-04-12 00:00:00 Completed [facility] Pneumococcal 7 Conjugate, PCV7 (Prevnar7) 2013-04-12 00:00:00 Completed [facility] DTAP 2013-04-12 00:00:00 Completed [facility] Polio (IPV/OPV) 2013-04-12 00:00:00 Completed [facility] Pneumococcal 7 Conjugate, PCV7 (Prevnar7) 2013-04-12 00:00:00 Completed [facility] DTAP 2013-04-12 00:00:00 Completed [facility] Polio (IPV/OPV) 2013-04-12 00:00:00 Completed [facility] Pneumococcal 7 Conjugate, PCV7 (Prevnar7) 2013-04-12 00:00:00 Completed [facility] DTAP 2013-04-12 00:00:00 Completed [facility] Polio (IPV/OPV) 2013-04-12 00:00:00 Completed [facility] Pneumococcal 7 Conjugate, PCV7 (Prevnar7) 2013-04-12 00:00:00 Completed [facility] DTAP 2013-04-12 00:00:00 Completed [facility] Polio (IPV/OPV) 2013-04-12 00:00:00 Completed [facility] Pneumococcal 7 Conjugate, PCV7 (Prevnar7) 2013-04-12 00:00:00 Completed [facility] DTAP 2013-04-12 00:00:00 Completed [facility] Polio (IPV/OPV) 2013-04-12 00:00:00 Completed [facility] Pneumococcal 7 Conjugate, PCV7 (Prevnar7) 2013-04-12 00:00:00 Completed [facility] DTAP 2013-04-12 00:00:00 Completed [facility] Polio (IPV/OPV) 2013-04-12 00:00:00 Completed [facility] Pneumococcal 7 Conjugate, PCV7 (Prevnar7) 2013-04-12 00:00:00 Completed [facility] DTAP 2013-04-12 00:00:00 Completed [facility] Polio (IPV/OPV) 2013-04-12 00:00:00 Completed [facility] Pneumococcal 7 Conjugate, PCV7 (Prevnar7) 2013-04-12 00:00:00 Completed [facility] DTAP 2013-04-12 00:00:00 Completed [facility] Polio (IPV/OPV) 2013-04-12 00:00:00 Completed [facility] Pneumococcal 7 Conjugate, PCV7 (Prevnar7) 2013-04-12 00:00:00 Completed [facility] DTAP 2013-04-12 00:00:00 Completed [facility] Polio (IPV/OPV) 2013-04-12 00:00:00 Completed [facility] Pneumococcal 7 Conjugate, PCV7 (Prevnar7) 2013-04-12 00:00:00 Completed [facility] DTAP 2013-04-12 00:00:00 Completed [facility] Polio (IPV/OPV) 2013-04-12 00:00:00 Completed [facility] Pneumococcal 7 Conjugate, PCV7 (Prevnar7) 2013-04-12 00:00:00 Completed [facility] DTAP 2013-04-12 00:00:00 Completed [facility] Polio (IPV/OPV) 2013-04-12 00:00:00 Completed [facility] Pneumococcal 7 Conjugate, PCV7 (Prevnar7) 2013-04-12 00:00:00 Completed [facility] DTAP 2013-04-12 00:00:00 Completed [facility] Polio (IPV/OPV) 2013-04-12 00:00:00 Completed [facility] Pneumococcal 7 Conjugate, PCV7 (Prevnar7) 2013-04-12 00:00:00 Completed [facility] DTaP, Unspecified Formulation 2013-04-12 00:00:00 Completed [facility] Pneumococcal 13 Conjugate, PCV13 (Prevnar 13) 2013-04-12 00:00:00 Completed [facility] IPV 2013-04-12 00:00:00 Completed [facility] Hep B, Adol or Pedi Dosage 2013-03-15 00:00:00 Completed [facility] Meningococcal Polysaccharide (groups A, C, Y and W-135) conjugate vaccine (MCV4P) 2013-03-15 00:00:00 Completed [facility] HEPATITIS A 2013-03-15 00:00:00 Completed [facility] Hep B, Adol or Pedi Dosage 2013-03-15 00:00:00 Completed [facility] Meningococcal Polysaccharide (groups A, C, Y and W-135) conjugate vaccine (MCV4P) 2013-03-15 00:00:00 Completed [facility] HEPATITIS A 2013-03-15 00:00:00 Completed [facility] Hep B, Adol or Pedi Dosage 2013-03-15 00:00:00 Completed [facility] Meningococcal Polysaccharide (groups A, C, Y and W-135) conjugate vaccine (MCV4P) 2013-03-15 00:00:00 Completed [facility] HEPATITIS A 2013-03-15 00:00:00 Completed [facility] Hep B, Adol or Pedi Dosage 2013-03-15 00:00:00 Completed [facility] Meningococcal Polysaccharide (groups A, C, Y and W-135) conjugate vaccine (MCV4P) 2013-03-15 00:00:00 Completed [facility] HEPATITIS A 2013-03-15 00:00:00 Completed [facility] Hep B, Adol or Pedi Dosage 2013-03-15 00:00:00 Completed [facility] Meningococcal Polysaccharide (groups A, C, Y and W-135) conjugate vaccine (MCV4P) 2013-03-15 00:00:00 Completed [facility] HEPATITIS A 2013-03-15 00:00:00 Completed [facility] Hep B, Adol or Pedi Dosage 2013-03-15 00:00:00 Completed [facility] Meningococcal Polysaccharide (groups A, C, Y and W-135) conjugate vaccine (MCV4P) 2013-03-15 00:00:00 Completed [facility] HEPATITIS A 2013-03-15 00:00:00 Completed [facility] Hep B, Adol or Pedi Dosage 2013-03-15 00:00:00 Completed [facility] Meningococcal Polysaccharide (groups A, C, Y and W-135) conjugate vaccine (MCV4P) 2013-03-15 00:00:00 [facility] [facility] HEPATITIS A 2013-03-15 00:00:00 Completed [facility] Hep B, Adol or Pedi Dosage 2013-03-15 00:00:00 Completed [facility] Meningococcal Polysaccharide (groups A, C, Y and W-135) conjugate vaccine (MCV4P) 2013-03-15 00:00:00 Completed [facility] HEPATITIS A 2013-03-15 00:00:00 Completed [facility] Hep B, Adol or Pedi Dosage 2013-03-15 00:00:00 Completed [facility] Meningococcal Polysaccharide (groups A, C, Y and W-135) conjugate vaccine (MCV4P) 2013-03-15 00:00:00 Completed [facility] HEPATITIS A 2013-03-15 00:00:00 Completed [facility] Hep B, Adol or Pedi Dosage 2013-03-15 00:00:00 Completed [facility] Meningococcal Polysaccharide (groups A, C, Y and W-135) conjugate vaccine (MCV4P) 2013-03-15 00:00:00 Completed [facility] HEPATITIS A 2013-03-15 00:00:00 Completed [facility] Hep B, Adol or Pedi Dosage 2013-03-15 00:00:00 Completed [facility] Meningococcal Polysaccharide (groups A, C, Y and W-135) conjugate vaccine (MCV4P) 2013-03-15 00:00:00 Completed [facility] HEPATITIS A 2013-03-15 00:00:00 Completed [facility] Hep B, Adol or Pedi Dosage 2013-03-15 00:00:00 Completed [facility] Meningococcal Polysaccharide (groups A, C, Y and W-135) conjugate vaccine (MCV4P) 2013-03-15 00:00:00 Completed [facility] HEPATITIS A 2013-03-15 00:00:00 Completed [facility] Hep B, Adol or Pedi Dosage 2013-03-15 00:00:00 Completed [facility] Meningococcal Polysaccharide (groups A, C, Y and W-135) conjugate vaccine (MCV4P) 2013-03-15 00:00:00 Completed [facility] HEPATITIS A 2013-03-15 00:00:00 Completed [facility] Hep B, Adol or Pedi Dosage 2013-03-15 00:00:00 Completed [facility] Meningococcal Polysaccharide (groups A, C, Y and W-135) conjugate vaccine (MCV4P) 2013-03-15 00:00:00 Completed [facility] HEPA,NOS 2013-03-15 00:00:00 Completed [facility] Hep B, Adolescent or Pediatric Hep B, Adolescent or Pediatric 2013-03-15 00:00:00 Completed [facility] Hep A, ped/adol, 2 dose Hep A, ped/adol, 2 dose 2013-03-15 00:00:00 Completed [facility] Meningococcal MCV4P Meningococcal MCV4P 00:00:00 Completed [facility] HEPATITIS A 2013-03-15 00:00:00 Completed [facility] Hep B, Adol or Pedi Dosage 2013-03-15 00:00:00 Completed [facility] Meningococcal Polysaccharide (groups A, C, Y and W-135) conjugate vaccine (MCV4P) 2013-03-15 00:00:00 Completed [facility] HEPATITIS A 2013-03-15 00:00:00 Completed [facility] Hep B, Adol or Pedi Dosage 2013-03-15 00:00:00 Completed [facility] Meningococcal Polysaccharide (groups A, C, Y and W-135) conjugate vaccine (MCV4P) 2013-03-15 00:00:00 Completed [facility] HEPATITIS A 2013-03-15 00:00:00 Completed [facility] Hep B, Adol or Pedi Dosage 2013-03-15 00:00:00 Completed [facility] Meningococcal Polysaccharide (groups A, C, Y and W-135) conjugate vaccine (MCV4P) 2013-03-15 00:00:00 Completed [facility] HEPATITIS A 2013-03-15 00:00:00 Completed [facility] Hep B, Adol or Pedi Dosage 2013-03-15 00:00:00 Completed [facility] Meningococcal Polysaccharide (groups A, C, Y and W-135) conjugate vaccine (MCV4P) 2013-03-15 00:00:00 Completed [facility] HEPATITIS A 2013-03-15 00:00:00 Completed [facility] Hep B, Adol or Pedi Dosage 2013-03-15 00:00:00 Completed [facility] Meningococcal Polysaccharide (groups A, C, Y and W-135) conjugate vaccine (MCV4P) 2013-03-15 00:00:00 Completed [facility] HEPATITIS A 2013-03-15 00:00:00 Completed [facility] Hep B, Adol or Pedi Dosage 2013-03-15 00:00:00 Completed [facility] Meningococcal Polysaccharide (groups A, C, Y and W-135) conjugate vaccine (MCV4P) 2013-03-15 00:00:00 Completed [facility] HEPATITIS A 2013-03-15 00:00:00 Completed [facility] Hep B, Adol or Pedi Dosage 2013-03-15 00:00:00 Completed [facility] Meningococcal Polysaccharide (groups A, C, Y and W-135) conjugate vaccine (MCV4P) 2013-03-15 00:00:00 Completed [facility] HEPATITIS A 2013-03-15 00:00:00 Completed [facility] Hep B, Adol or Pedi Dosage 2013-03-15 00:00:00 Completed [facility] Meningococcal Polysaccharide (groups A, C, Y and W-135) conjugate vaccine (MCV4P) 2013-03-15 00:00:00 Completed [facility] HEPATITIS A 2013-03-15 00:00:00 Completed [facility] Hep B, Adol or Pedi Dosage 2013-03-15 00:00:00 Completed [facility] Meningococcal Polysaccharide (groups A, C, Y and W-135) conjugate vaccine (MCV4P) 2013-03-15 00:00:00 Completed [facility] HEPATITIS A 2013-03-15 00:00:00 Completed [facility] Hep B, Adol or Pedi Dosage 2013-03-15 00:00:00 Completed [facility] Meningococcal Polysaccharide (groups A, C, Y and W-135) conjugate vaccine (MCV4P) 2013-03-15 00:00:00 Completed [facility] HEPATITIS A 2013-03-15 00:00:00 Completed [facility] Hep B, Adol or Pedi Dosage 2013-03-15 00:00:00 Completed [facility] Meningococcal Polysaccharide (groups A, C, Y and W-135) conjugate vaccine (MCV4P) 2013-03-15 00:00:00 Completed [facility] HEPATITIS A 2013-03-15 00:00:00 Completed [facility] Hep B, Adol or Pedi Dosage 2013-03-15 00:00:00 Completed [facility] Meningococcal Polysaccharide (groups A, C, Y and W-135) conjugate vaccine (MCV4P) 2013-03-15 00:00:00 Completed [facility] HEPATITIS A 2013-03-15 00:00:00 Completed [facility] Hep B, Adol or Pedi Dosage 2013-03-15 00:00:00 Completed [facility] Meningococcal Polysaccharide (groups A, C, Y and W-135) conjugate vaccine (MCV4P) 2013-03-15 00:00:00 Completed [facility] HEPATITIS A 2013-03-15 00:00:00 Completed [facility] Hep B, Adol or Pedi Dosage 2013-03-15 00:00:00 Completed [facility] Meningococcal Polysaccharide (groups A, C, Y and W-135) conjugate vaccine (MCV4P) 2013-03-15 00:00:00 Completed [facility] HEPATITIS A 2013-03-15 00:00:00 Completed [facility] Hep B, Adol or Pedi Dosage 2013-03-15 00:00:00 Completed [facility] Meningococcal Polysaccharide (groups A, C, Y and W-135) conjugate vaccine (MCV4P) 2013-03-15 00:00:00 Completed [facility] HEPATITIS A 2013-03-15 00:00:00 Completed [facility] Hep B, Adol or Pedi Dosage 2013-03-15 00:00:00 Completed [facility] Meningococcal Polysaccharide (groups A, C, Y and W-135) conjugate vaccine (MCV4P) 2013-03-15 00:00:00 Completed [facility] HEPATITIS A 2013-03-15 00:00:00 Completed [facility] Pneumococcal 13 Conjugate, PCV13 (Prevnar 13) 2013-01-24 00:00:00 Completed [facility] HIB 4 Dose Schedule 2013-01-24 00:00:00 Completed [facility] Hep B, Dtap, Polio 2013-01-24 00:00:00 Completed [facility] Pneumococcal 13 Conjugate, PCV13 (Prevnar 13) 2013-01-24 00:00:00 Completed [facility] HIB 4 Dose Schedule 2013-01-24 00:00:00 Completed [facility] Hep B, Dtap, Polio 2013-01-24 00:00:00 Completed [facility] Pneumococcal 13 Conjugate, PCV13 (Prevnar 13) 2013-01-24 00:00:00 Completed [facility] HIB 4 Dose Schedule 2013-01-24 00:00:00 Completed [facility] Hep B, Dtap, Polio 2013-01-24 00:00:00 Completed [facility] Pneumococcal 13 Conjugate, PCV13 (Prevnar 13) 2013-01-24 00:00:00 Completed [facility] HIB 4 Dose Schedule 2013-01-24 00:00:00 Completed [facility] Hep B, Dtap, Polio 2013-01-24 00:00:00 Completed [facility] Pneumococcal 13 Conjugate, PCV13 (Prevnar 13) 2013-01-24 00:00:00 Completed [facility] HIB 4 Dose Schedule 2013-01-24 00:00:00 Completed [facility] Hep B, Dtap, Polio 2013-01-24 00:00:00 Completed [facility] Pneumococcal 13 Conjugate, PCV13 (Prevnar 13) 2013-01-24 00:00:00 Completed [facility] HIB 4 Dose Schedule 2013-01-24 00:00:00 Completed [facility] Hep B, Dtap, Polio 2013-01-24 00:00:00 Completed [facility] Pneumococcal 13 Conjugate, PCV13 (Prevnar 13) 2013-01-24 00:00:00 Completed [facility] HIB 4 Dose Schedule 2013-01-24 00:00:00 Completed [facility] Hep B, Dtap, Polio 2013-01-24 00:00:00 Completed [facility] Pneumococcal 13 Conjugate, PCV13 (Prevnar 13) 2013-01-24 00:00:00 Completed [facility] HIB 4 Dose Schedule 2013-01-24 00:00:00 Completed [facility] Hep B, Dtap, Polio 2013-01-24 00:00:00 Completed [facility] Pneumococcal 13 Conjugate, PCV13 (Prevnar 13) 2013-01-24 00:00:00 Completed [facility] HIB 4 Dose Schedule 2013-01-24 00:00:00 Completed [facility] Hep B, Dtap, Polio 2013-01-24 00:00:00 Completed [facility] Pneumococcal 13 Conjugate, PCV13 (Prevnar 13) 2013-01-24 00:00:00 Completed [facility] HIB 4 Dose Schedule 2013-01-24 00:00:00 Completed [facility] Hep B, Dtap, Polio 2013-01-24 00:00:00 Completed [facility] Pneumococcal 13 Conjugate, PCV13 (Prevnar 13) 2013-01-24 00:00:00 Completed [facility] HIB 4 Dose Schedule 2013-01-24 00:00:00 Completed [facility] Hep B, Dtap, Polio 2013-01-24 00:00:00 Completed [facility] Pneumococcal 13 Conjugate, PCV13 (Prevnar 13) 2013-01-24 00:00:00 Completed [facility] HIB 4 Dose Schedule 2013-01-24 00:00:00 Completed [facility] Hep B, Dtap, Polio 2013-01-24 00:00:00 Completed [facility] Pneumococcal 13 Conjugate, PCV13 (Prevnar 13) 2013-01-24 00:00:00 Completed [facility] HIB 4 Dose Schedule 2013-01-24 00:00:00 Completed [facility] Hep B, Dtap, Polio 2013-01-24 00:00:00 Completed [facility] Pneumococcal 13 Conjugate, PCV13 (Prevnar 13) 2013-01-24 00:00:00 Completed [facility] HIB 4 Dose Schedule 2013-01-24 00:00:00 Completed [facility] Hep B, Dtap, Polio 2013-01-24 00:00:00 Completed [facility] Pneumococcal 13 Conjugate, PCV13 (Prevnar 13) 2013-01-24 00:00:00 Completed [facility] HIB 4 Dose Schedule 2013-01-24 00:00:00 Completed [facility] Hep B, Dtap, Polio 2013-01-24 00:00:00 Completed [facility] Pneumococcal 13 Conjugate, PCV13 (Prevnar 13) 2013-01-24 00:00:00 Completed [facility] HIB 4 Dose Schedule 2013-01-24 00:00:00 Completed [facility] Hep B, Dtap, Polio 2013-01-24 00:00:00 Completed [facility] Pneumococcal 13 Conjugate, PCV13 (Prevnar 13) 2013-01-24 00:00:00 Completed [facility] HIB 4 Dose Schedule 2013-01-24 00:00:00 Completed [facility] Hep B, Dtap, Polio 2013-01-24 00:00:00 Completed [facility] Pneumococcal 13 Conjugate, PCV13 (Prevnar 13) 2013-01-24 00:00:00 Completed [facility] HIB 4 Dose Schedule 2013-01-24 00:00:00 Completed [facility] Hep B, Dtap, Polio 2013-01-24 00:00:00 Completed [facility] Pneumococcal 13 Conjugate, PCV13 (Prevnar 13) 2013-01-24 00:00:00 Completed [facility] HIB 4 Dose Schedule 2013-01-24 00:00:00 Completed [facility] Hep B, Dtap, Polio 2013-01-24 00:00:00 Completed [facility] Pneumococcal 13 Conjugate, PCV13 (Prevnar 13) 2013-01-24 00:00:00 Completed [facility] HIB 4 Dose Schedule 2013-01-24 00:00:00 Completed [facility] Hep B, Dtap, Polio 2013-01-24 00:00:00 Completed [facility] Pneumococcal 13 Conjugate, PCV13 (Prevnar 13) 2013-01-24 00:00:00 Completed [facility] HIB 4 Dose Schedule 2013-01-24 00:00:00 Completed [facility] Hep B, Dtap, Polio 2013-01-24 00:00:00 Completed [facility] Pneumococcal 13 Conjugate, PCV13 (Prevnar 13) 2013-01-24 00:00:00 Completed [facility] HIB 4 Dose Schedule 2013-01-24 00:00:00 Completed [facility] Hep B, Dtap, Polio 2013-01-24 00:00:00 Completed [facility] Pneumococcal 13 Conjugate, PCV13 (Prevnar 13) 2013-01-24 00:00:00 Completed [facility] HIB 4 Dose Schedule 2013-01-24 00:00:00 Completed [facility] Hep B, Dtap, Polio 2013-01-24 00:00:00 Completed [facility] Pneumococcal 13 Conjugate, PCV13 (Prevnar 13) 2013-01-24 00:00:00 Completed [facility] HIB 4 Dose Schedule 2013-01-24 00:00:00 Completed [facility] Hep B, Dtap, Polio 2013-01-24 00:00:00 Completed [facility] Pneumococcal 13 Conjugate, PCV13 (Prevnar 13) 2013-01-24 00:00:00 Completed [facility] HIB 4 Dose Schedule 2013-01-24 00:00:00 Completed [facility] Hep B, Dtap, Polio 2013-01-24 00:00:00 Completed [facility] Pneumococcal 13 Conjugate, PCV13 (Prevnar 13) 2013-01-24 00:00:00 Completed [facility] HIB 4 Dose Schedule 2013-01-24 00:00:00 Completed [facility] Hep B, Dtap, Polio 2013-01-24 00:00:00 Completed [facility] Pneumococcal 13 Conjugate, PCV13 (Prevnar 13) 2013-01-24 00:00:00 Completed [facility] HIB 4 Dose Schedule 2013-01-24 00:00:00 Completed [facility] Hep B, Dtap, Polio 2013-01-24 00:00:00 Completed [facility] Pneumococcal 13 Conjugate, PCV13 (Prevnar 13) 2013-01-24 00:00:00 Completed [facility] HIB 4 Dose Schedule 2013-01-24 00:00:00 Completed [facility] Hep B, Dtap, Polio 2013-01-24 00:00:00 Completed [facility] Pneumococcal 13 Conjugate, PCV13 (Prevnar 13) 2013-01-24 00:00:00 Completed [facility] HIB 4 Dose Schedule 2013-01-24 00:00:00 Completed [facility] Hep B, Dtap, Polio 2013-01-24 00:00:00 Completed [facility] Pneumococcal 13 Conjugate, PCV13 (Prevnar 13) 2013-01-24 00:00:00 Completed [facility] HIB 4 Dose Schedule 2013-01-24 00:00:00 Completed [facility] Hep B, Dtap, Polio 2013-01-24 00:00:00 Completed [facility] Hib-HbOC 2013-01-24 00:00:00 Completed [facility] Pneumococcal Conjugate PCV 13 Pneumococcal Conjugate PCV 13 2013-01-24 00:00:00 Completed [facility] Hib (PRP-T) Hib (PRP-T) 2013-01-24 00:00:00 Completed [facility] DTaP / Hep B / IPV DTaP / Hep B / IPV 2013-01-24 00:00:00 Completed [facility] Pneumococcal 13 Conjugate, PCV13 (Prevnar 13) 2012-06-13 00:00:00 Completed [facility] Pneumococcal Conjugate PCV 13 Pneumococcal Conjugate PCV 13 2012-06-13 00:00:00 Completed [facility] DTAP 2012-05-09 00:00:00 Completed [facility] DTaP, Unspecified Formulation 2012-05-09 00:00:00 Completed [facility] DTaP, Unspecified DTaP, Unspecified 2012-05-09 00:00:00 Completed [facility] Flu Whole Virus 2010-07-30 00:00:00 Completed [facility] Influenza, seasonal, injectable, preservative free Influenza, seasonal, injectable, preservative free 2009-08-21 00:00:00 Completed [facility] Flu Trivalent 2009-08-21 00:00:00 Completed [facility] DTaP, Unspecified DTaP, Unspecified 2006-06-22 00:00:00 Completed [facility] Hep A, ped/adol, 2 dose Hep A, ped/adol, 2 dose 2006-06-22 00:00:00 Completed [facility] DTaP, Unspecified Formulation 2006-06-22 00:00:00 Completed [facility] HEPATITIS A 2006-06-22 00:00:00 Completed [facility] Pneumococcal Conjugate PCV 7 Pneumococcal Conjugate PCV 7 2005-06-21 00:00:00 Completed [facility] Hep A, ped/adol, 2 dose Hep A, ped/adol, 2 dose 2005-06-21 00:00:00 Completed [facility] HEPATITIS A 2005-06-21 00:00:00 Completed [facility] Pneumococcal 7 Conjugate, PCV7 (Prevnar7) 2005-06-21 00:00:00 Completed [facility] MMR MMR 2005-04-22 00:00:00 Completed [facility] Hib (PRP-T) Hib (PRP-T) 2005-04-22 00:00:00 Completed [facility] Epic IPV IPV 2005-04-22 00:00:00 Completed [facility] HIB 4 Dose Schedule 2005-04-22 00:00:00 Completed [facility] MMR 2005-04-22 00:00:00 Completed [facility] IPV 2005-04-22 00:00:00 Completed [facility] Varicella Varicella 2005-02-14 00:00:00 Completed [facility] Epic DTaP, Unspecified DTaP, Unspecified 2005-02-14 00:00:00 Completed [facility] Epic Hib (PRP-T) Hib (PRP-T) 2005-02-14 00:00:00 Completed [facility] IPV IPV 2005-02-14 00:00:00 Completed [facility] MMR MMR 2005-02-14 00:00:00 Completed [facility] DTaP, Unspecified Formulation 2005-02-14 00:00:00 Completed [facility] HIB 4 Dose Schedule 2005-02-14 00:00:00 Completed [facility] MMR 2005-02-14 00:00:00 Completed [facility] IPV 2005-02-14 00:00:00 Completed [facility] Varicella (varivax)(chicken pox) 2005-02-14 00:00:00 Completed [facility] DTaP, Unspecified DTaP, Unspecified 2001-10-10 00:00:00 Completed [facility] Hib (PRP-T) Hib (PRP-T) 2001-10-10 00:00:00 Completed [facility] Hep B, Adolescent or Pediatric Hep B, Adolescent or Pediatric 2001-10-10 00:00:00 Completed [facility] DTaP, Unspecified Formulation 2001-10-10 00:00:00 Completed [facility] Hep B, Adol or Pedi Dosage 2001-10-10 00:00:00 Completed [facility] HIB 4 Dose Schedule 2001-10-10 00:00:00 Completed [facility] IPV 2001-10-10 00:00:00 Completed [facility] IPV IPV 2001-10-10 00:00:00 Completed [facility] DTaP, Unspecified Formulation 2001-03-01 00:00:00 Completed [facility] HIB 4 Dose Schedule 2001-03-01 00:00:00 Completed [facility] IPV 2001-03-01 00:00:00 Completed [facility] DTaP, Unspecified DTaP, Unspecified 2001-03-01 00:00:00 Completed [facility] Hib (PRP-T) Hib (PRP-T) 2001-03-01 00:00:00 Completed [facility] IPV IPV 2001-03-01 00:00:00 Completed [facility] Hep B, Adol or Pedi Dosage 2001-01-31 00:00:00 [facility] [facility] Hep B, Adolescent or Pediatric Hep B, Adolescent or Pediatric 2001-01-31 00:00:00 Completed [facility] Hep B, Adol or Pedi Dosage 2000 00:00:00 Completed [facility] Hep B, Adolescent or Pediatric Hep B, Adolescent or Pediatric 2000 00:00:00 Completed [facility] Hep B, Dtap, Polio Unknown Completed [facility] Meningococcal Polysaccharide (groups A, C, Y and W-135) conjugate vaccine (MCV4P) Unknown Completed [facility] DTAP Unknown Completed [facility] Polio (IPV/OPV) Unknown Completed [facility] Pneumococcal 7 Conjugate, PCV7 (Prevnar7) Unknown Completed [facility] SARS-COV-2 COVID-19 PFIZER VACCINE Unknown Completed [facility] DTaP, Unspecified Formulation Unknown Completed [facility] Influenza Virus Vaccine Quad .5 mL IM 6+ MO (FLUZONE/FLULAVAL/FL UARIX) Unknown Completed [facility] Flu Trivalent Unknown Completed [facility] Flu Whole Virus Unknown Completed [facility] HEP B, Adult Dosage Unknown Completed [facility] HEPA,NOS Unknown Completed [facility] HEPATITIS A Unknown Completed [facility] Hep B, Adol or Pedi Dosage Unknown Completed [facility] Hib-HbOC Unknown Completed [facility] HIB 3 Dose Schedule Unknown Completed [facility] HIB 4 Dose Schedule Unknown Completed [facility] HPV9 Unknown Completed [facility] MMR Unknown Completed [facility] Proquad (MMR/VARICELLA) Unknown Completed [facility] Pneumococcal 13 Conjugate, PCV13 (Prevnar 13) Unknown Completed [facility] Pneumococcal Polysaccharide, PPSV23 (PNEUMOVAX) Unknown Completed [facility] IPV Unknown Completed [facility] Varicella (varivax)(chicken pox) Unknown Completed [facility] Hep B, Dtap, Polio Unknown Completed [facility] Meningococcal Polysaccharide (groups A, C, Y and W-135) conjugate vaccine (MCV4P) Unknown Completed [facility] DTAP Unknown Completed [facility] Polio (IPV/OPV) Unknown Completed [facility] Pneumococcal 7 Conjugate, PCV7 (Prevnar7) Unknown Completed [facility] SARS-COV-2 COVID-19 PFIZER VACCINE Unknown Completed [facility] DTaP, Unspecified Formulation Unknown Completed [facility] Influenza Virus Vaccine Quad .5 mL IM 6+ MO (FLUZONE/FLULAVAL/FL UARIX) Unknown Completed [facility] Flu Trivalent Unknown Completed [facility] Flu Whole Virus Unknown Completed [facility] HEP B, Adult Dosage Unknown Completed [facility] HEPA,NOS Unknown Completed [facility] HEPATITIS A Unknown Completed [facility] Hep B, Adol or Pedi Dosage Unknown Completed [facility] Hib-HbOC Unknown Completed [facility] HIB 3 Dose Schedule Unknown Completed [facility] HIB 4 Dose Schedule Unknown Completed [facility] HPV9 Unknown Completed [facility] MMR Unknown Completed [facility] Proquad (MMR/VARICELLA) Unknown Completed [facility] Pneumococcal 13 Conjugate, PCV13 (Prevnar 13) Unknown Completed [facility] Pneumococcal Polysaccharide, PPSV23 (PNEUMOVAX) Unknown Completed [facility] IPV Unknown Completed [facility] Varicella (varivax)(chicken pox) Unknown Completed [facility] Hep B, Dtap, Polio Unknown Completed [facility] Meningococcal Polysaccharide (groups A, C, Y and W-135) conjugate vaccine (MCV4P) Unknown Completed [facility] DTAP Unknown Completed [facility] Polio (IPV/OPV) Unknown Completed [facility] Pneumococcal 7 Conjugate, PCV7 (Prevnar7) Unknown Completed [facility] SARS-COV-2 COVID-19 PFIZER VACCINE Unknown Completed [facility] DTaP, Unspecified Formulation Unknown Completed [facility] Influenza Virus Vaccine Quad .5 mL IM 6+ MO (FLUZONE/FLULAVAL/FL UARIX) Unknown Completed [facility] Flu Trivalent Unknown Completed [facility] Flu Whole Virus Unknown Completed [facility] HEP B, Adult Dosage Unknown Completed [facility] HEPA,NOS Unknown Completed [facility] HEPATITIS A Unknown Completed [facility] Hep B, Adol or Pedi Dosage Unknown Completed [facility] Hib-HbOC Unknown Completed [facility] HIB 3 Dose Schedule Unknown Completed [facility] HIB 4 Dose Schedule Unknown Completed [facility] HPV9 Unknown Completed [facility] MMR Unknown Completed [facility] Proquad (MMR/VARICELLA) Unknown Completed [facility] Pneumococcal 13 Conjugate, PCV13 (Prevnar 13) Unknown Completed [facility] Pneumococcal Polysaccharide, PPSV23 (PNEUMOVAX) Unknown Completed [facility] IPV Unknown Completed [facility] Varicella (varivax)(chicken pox) Unknown Completed [facility] Hep B, Dtap, Polio Unknown Completed [facility] Meningococcal Polysaccharide (groups A, C, Y and W-135) conjugate vaccine (MCV4P) Unknown Completed [facility] DTAP Unknown Completed [facility] Polio (IPV/OPV) Unknown Completed [facility] Pneumococcal 7 Conjugate, PCV7 (Prevnar7) Unknown Completed [facility] SARS-COV-2 COVID-19 PFIZER VACCINE Unknown Completed [facility] DTaP, Unspecified Formulation Unknown Completed [facility] Influenza Virus Vaccine Quad .5 mL IM 6+ MO (FLUZONE/FLULAVAL/FL UARIX) Unknown Completed [facility] Flu Trivalent Unknown Completed [facility] Flu Whole Virus Unknown Completed [facility] HEP B, Adult Dosage Unknown Completed [facility] HEPA,NOS Unknown Completed [facility] HEPATITIS A Unknown Completed [facility] Hep B, Adol or Pedi Dosage Unknown Completed [facility] Hib-HbOC Unknown Completed [facility] HIB 3 Dose Schedule Unknown Completed [facility] HIB 4 Dose Schedule Unknown Completed [facility] HPV9 Unknown Completed [facility] MMR Unknown Completed [facility] Proquad (MMR/VARICELLA) Unknown Completed [facility] Pneumococcal 13 Conjugate, PCV13 (Prevnar 13) Unknown Completed [facility] Pneumococcal Polysaccharide, PPSV23 (PNEUMOVAX) Unknown Completed [facility] IPV Unknown Completed [facility] Varicella (varivax)(chicken pox) Unknown Completed [facility] TDAP Unknown Completed [facility] HIB PRP-D,booster Unknown Completed [facility] SARS-COV-2 COVID-19 PFIZER VACCINE Unknown Completed [facility] DTaP, Unspecified Formulation Unknown Completed [facility] Influenza Virus Vaccine Quad .5 mL IM 6+ MO (FLUZONE/FLULAVAL/FL UARIX) Unknown Completed [facility] Flu Trivalent Unknown Completed [facility] Flu Whole Virus Unknown Completed [facility] HEP B, Adult Dosage Unknown Completed [facility] HEPA,NOS Unknown Completed [facility] HEPATITIS A Unknown Completed [facility] Hep B, Adol or Pedi Dosage Unknown Completed [facility] Hib-HbOC Unknown Completed [facility] HIB 3 Dose Schedule Unknown Completed [facility] HIB 4 Dose Schedule Unknown Completed [facility] HPV9 Unknown Completed [facility] MMR Unknown Completed [facility] Proquad (MMR/VARICELLA) Unknown Completed [facility] Pneumococcal 13 Conjugate, PCV13 (Prevnar 13) Unknown Completed [facility] Pneumococcal Polysaccharide, PPSV23 (PNEUMOVAX) Unknown Completed [facility] IPV Unknown Completed [facility] Varicella (varivax)(chicken pox) Unknown Completed [facility] TDAP Unknown Completed [facility] HIB PRP-D,booster Unknown Completed [facility] DTAP Unknown Completed [facility] Meningococcal Polysaccharide (groups A, C, Y and W-135) conjugate vaccine (MCV4P) Unknown Completed [facility] Pneumococcal 7 Conjugate, PCV7 (Prevnar7) Unknown Completed [facility] Hep B, Dtap, Polio Unknown Completed [facility] Meningococcal Polysaccharide (groups A, C, Y and W-135) conjugate vaccine (MCV4P) Unknown Completed [facility] DTAP Unknown Completed [facility] Polio (IPV/OPV) Unknown Completed [facility] Pneumococcal 7 Conjugate, PCV7 (Prevnar7) Unknown Completed [facility] SARS-COV-2 COVID-19 PFIZER VACCINE Unknown Completed [facility] DTaP, Unspecified Formulation Unknown Completed [facility] Influenza Virus Vaccine Quad .5 mL IM 6+ MO (FLUZONE/FLULAVAL/FL UARIX) Unknown Completed [facility] Flu Trivalent Unknown Completed [facility] Flu Whole Virus Unknown Completed [facility] HEP B, Adult Dosage Unknown Completed [facility] HEPA,NOS Unknown Completed [facility] HEPATITIS A Unknown Completed [facility] Hep B, Adol or Pedi Dosage Unknown Completed [facility] Hib-HbOC Unknown Completed [facility] HIB 3 Dose Schedule Unknown Completed [facility] HIB 4 Dose Schedule Unknown Completed [facility] HPV9 Unknown Completed [facility] MMR Unknown Completed [facility] Proquad (MMR/VARICELLA) Unknown Completed [facility] Pneumococcal 13 Conjugate, PCV13 (Prevnar 13) Unknown Completed [facility] Pneumococcal Polysaccharide, PPSV23 (PNEUMOVAX) Unknown Completed [facility] IPV Unknown Completed [facility] Varicella (varivax)(chicken pox) Unknown Completed [facility] TDAP Unknown Completed [facility] HIB PRP-D,booster Unknown Completed [facility] Hep B, Dtap, Polio Unknown Completed [facility] Polio (IPV/OPV) Unknown Completed [facility] Hep B, Dtap, Polio Unknown Completed [facility] Meningococcal Polysaccharide (groups A, C, Y and W-135) conjugate vaccine (MCV4P) Unknown Completed [facility] DTAP Unknown Completed [facility] Polio (IPV/OPV) Unknown Completed [facility] Pneumococcal 7 Conjugate, PCV7 (Prevnar7) Unknown Completed [facility] SARS-COV-2 COVID-19 PFIZER VACCINE Unknown Completed [facility] DTaP, Unspecified Formulation Unknown Completed [facility] Influenza Virus Vaccine Quad .5 mL IM 6+ MO (FLUZONE/FLULAVAL/FL UARIX) Unknown Completed [facility] Flu Trivalent Unknown Completed [facility] Flu Whole Virus Unknown Completed [facility] HEP B, Adult Dosage Unknown Completed [facility] HEPA,NOS Unknown Completed [facility] HEPATITIS A Unknown Completed [facility] Hep B, Adol or Pedi Dosage Unknown Completed [facility] Hib-HbOC Unknown Completed [facility] HIB 3 Dose Schedule Unknown Completed [facility] HIB 4 Dose Schedule Unknown Completed [facility] HPV9 Unknown Completed [facility] MMR Unknown Completed [facility] Proquad (MMR/VARICELLA) Unknown Completed [facility] Pneumococcal 13 Conjugate, PCV13 (Prevnar 13) Unknown Completed [facility] Pneumococcal Polysaccharide, PPSV23 (PNEUMOVAX) Unknown Completed [facility] IPV Unknown Completed [facility] Varicella (varivax)(chicken pox) Unknown Completed [facility] TDAP Unknown Completed [facility] HIB PRP-D,booster Unknown [facility], Dtap, Polio Unknown Completed [facility] Meningococcal Polysaccharide (groups A, C, Y and W-135) conjugate vaccine (MCV4P) Unknown Completed [facility] DTAP Unknown Completed [facility] Polio (IPV/OPV) Unknown Completed [facility] Pneumococcal 7 Conjugate, PCV7 (Prevnar7) Unknown Completed [facility] SARS-COV-2 COVID-19 PFIZER VACCINE Unknown Completed [facility] DTaP, Unspecified Formulation Unknown Completed [facility] Influenza Virus Vaccine Quad .5 mL IM 6+ MO (FLUZONE/FLULAVAL/FL UARIX) Unknown Completed [facility] Flu Trivalent Unknown Completed [facility] Flu Whole Virus Unknown Completed [facility] HEP B, Adult Dosage Unknown Completed [facility] HEPA,NOS Unknown Completed [facility] HEPATITIS A Unknown Completed [facility] Hep B, Adol or Pedi Dosage Unknown Completed [facility] Hib-HbOC Unknown Completed [facility] HIB 3 Dose Schedule Unknown Completed [facility] HIB 4 Dose Schedule Unknown Completed [facility] HPV9 Unknown Completed [facility] MMR Unknown Completed [facility] Proquad (MMR/VARICELLA) Unknown Completed [facility] Pneumococcal 13 Conjugate, PCV13 (Prevnar 13) Unknown Completed [facility] Pneumococcal Polysaccharide, PPSV23 (PNEUMOVAX) Unknown Completed [facility] IPV Unknown Completed [facility] Varicella (varivax)(chicken pox) Unknown Completed [facility] TDAP Unknown Completed [facility] HIB PRP-D,booster Unknown Completed [facility] SARS-COV-2 COVID-19 PFIZER VACCINE Unknown Completed [facility] DTaP, Unspecified Formulation Unknown Completed [facility] Influenza Virus Vaccine Quad .5 mL IM 6+ MO (FLUZONE/FLULAVAL/FL UARIX) Unknown Completed [facility] Flu Trivalent Unknown Completed [facility] Flu Whole Virus Unknown Completed [facility] HEP B, Adult Dosage Unknown Completed [facility] HEPA,NOS Unknown Completed [facility] HEPATITIS A Unknown Completed [facility] Hep B, Adol or Pedi Dosage Unknown Completed [facility] Hib-HbOC Unknown Completed [facility] HIB 3 Dose Schedule Unknown Completed [facility] HIB 4 Dose Schedule Unknown Completed [facility] HPV9 Unknown Completed [facility] MMR Unknown Completed [facility] Proquad (MMR/VARICELLA) Unknown Completed [facility] Pneumococcal 13 Conjugate, PCV13 (Prevnar 13) Unknown Completed [facility] Pneumococcal Polysaccharide, PPSV23 (PNEUMOVAX) Unknown Completed [facility] IPV Unknown Completed [facility] Varicella (varivax)(chicken pox) Unknown Completed [facility] TDAP Unknown Completed [facility] HIB PRP-D,booster Unknown Completed [facility] DTAP Unknown Completed [facility] Meningococcal Polysaccharide (groups A, C, Y and W-135) conjugate vaccine (MCV4P) Unknown Completed [facility] Pneumococcal 7 Conjugate, PCV7 (Prevnar7) Unknown Completed [facility] Hep B, Dtap, Polio Unknown Completed [facility] Meningococcal Polysaccharide (groups A, C, Y and W-135) conjugate vaccine (MCV4P) Unknown Completed [facility] DTAP Unknown Completed [facility] Polio (IPV/OPV) Unknown Completed [facility] Pneumococcal 7 Conjugate, PCV7 (Prevnar7) Unknown Completed [facility] SARS-COV-2 COVID-19 PFIZER VACCINE Unknown Completed [facility] DTaP, Unspecified Formulation Unknown Completed [facility] Influenza Virus Vaccine Quad .5 mL IM 6+ MO (FLUZONE/FLULAVAL/FL UARIX) Unknown Completed [facility] Flu Trivalent Unknown Completed [facility] Flu Whole Virus Unknown Completed [facility] HEP B, Adult Dosage Unknown Completed [facility] HEPA,NOS Unknown Completed [facility] HEPATITIS A Unknown Completed [facility] Hep B, Adol or Pedi Dosage Unknown Completed [facility] Hib-HbOC Unknown Completed [facility] HIB 3 Dose Schedule Unknown Completed [facility] HIB 4 Dose Schedule Unknown Completed [facility] HPV9 Unknown Completed [facility] MMR Unknown Completed [facility] Proquad (MMR/VARICELLA) Unknown Completed [facility] Pneumococcal 13 Conjugate, PCV13 (Prevnar 13) Unknown Completed [facility] Pneumococcal Polysaccharide, PPSV23 (PNEUMOVAX) Unknown Completed [facility] IPV Unknown Completed [facility] Varicella (varivax)(chicken pox) Unknown Completed [facility] TDAP Unknown Completed [facility] HIB PRP-D,booster Unknown Completed [facility] Hep B, Dtap, Polio Unknown Completed [facility] Polio (IPV/OPV) Unknown Completed [facility] Hep B, Dtap, Polio Unknown Completed [facility] Meningococcal Polysaccharide (groups A, C, Y and W-135) conjugate vaccine (MCV4P) Unknown Completed [facility] DTAP Unknown Completed [facility] Polio (IPV/OPV) Unknown Completed [facility] Pneumococcal 7 Conjugate, PCV7 (Prevnar7) Unknown Completed [facility] SARS-COV-2 COVID-19 PFIZER VACCINE Unknown Completed [facility] DTaP, Unspecified Formulation Unknown Completed [facility] Influenza Virus Vaccine Quad .5 mL IM 6+ MO (FLUZONE/FLULAVAL/FL UARIX) Unknown Completed [facility] Flu Trivalent Unknown Completed [facility] Flu Whole Virus Unknown Completed [facility] HEP B, Adult Dosage Unknown Completed [facility] HEPA,NOS Unknown Completed [facility] HEPATITIS A Unknown Completed [facility] Hep B, Adol or Pedi Dosage Unknown Completed [facility] Hib-HbOC Unknown Completed [facility] HIB 3 Dose Schedule Unknown Completed [facility] HIB 4 Dose Schedule Unknown Completed [facility] HPV9 Unknown Completed [facility] MMR Unknown Completed [facility] Proquad (MMR/VARICELLA) Unknown Completed [facility] Pneumococcal 13 Conjugate, PCV13 (Prevnar 13) Unknown Completed [facility] Pneumococcal Polysaccharide, PPSV23 (PNEUMOVAX) Unknown Completed [facility] IPV Unknown Completed [facility] Varicella (varivax)(chicken pox) Unknown Completed [facility] TDAP Unknown Completed [facility] HIB PRP-D,booster Unknown Completed [facility] Hep B, Dtap, Polio Unknown Completed [facility] Meningococcal Polysaccharide (groups A, C, Y and W-135) conjugate vaccine (MCV4P) Unknown Completed [facility] DTAP Unknown Completed [facility] Polio (IPV/OPV) Unknown Completed [facility] Pneumococcal 7 Conjugate, PCV7 (Prevnar7) Unknown Completed [facility] SARS-COV-2 COVID-19 PFIZER VACCINE Unknown Completed [facility] DTaP, Unspecified Formulation Unknown Completed [facility] Influenza Virus Vaccine Quad .5 mL IM 6+ MO (FLUZONE/FLULAVAL/FL UARIX) Unknown Completed [facility] Flu Trivalent Unknown Completed [facility] Flu Whole Virus Unknown Completed [facility] HEP B, Adult Dosage Unknown Completed [facility] HEPA,NOS Unknown Completed [facility] HEPATITIS A Unknown Completed [facility] Hep B, Adol or Pedi Dosage Unknown Completed [facility] Hib-HbOC Unknown Completed [facility] HIB 3 Dose Schedule Unknown Completed [facility] HIB 4 Dose Schedule Unknown Completed [facility] HPV9 Unknown Completed [facility] MMR Unknown Completed [facility] Proquad (MMR/VARICELLA) Unknown Completed [facility] Pneumococcal 13 Conjugate, PCV13 (Prevnar 13) Unknown Completed [facility] Pneumococcal Polysaccharide, PPSV23 (PNEUMOVAX) Unknown Completed [facility] IPV Unknown Completed [facility] Varicella (varivax)(chicken pox) Unknown Completed [facility] TDAP Unknown Completed [facility] HIB PRP-D,booster Unknown Completed [facility] Hep B, Dtap, Polio Unknown Completed [facility] Meningococcal Polysaccharide (groups A, C, Y and W-135) conjugate vaccine (MCV4P) Unknown Completed [facility] DTAP Unknown Completed [facility] Polio (IPV/OPV) Unknown Completed [facility] Pneumococcal 7 Conjugate, PCV7 (Prevnar7) Unknown Completed [facility] SARS-COV-2 COVID-19 PFIZER VACCINE Unknown Completed [facility] DTaP, Unspecified Formulation Unknown Completed [facility] Influenza Virus Vaccine Quad .5 mL IM 6+ MO (FLUZONE/FLULAVAL/FL UARIX) Unknown Completed [facility] Flu Trivalent Unknown Completed [facility] Flu Whole Virus Unknown Completed [facility] HEP B, Adult Dosage Unknown Completed [facility] HEPA,NOS Unknown Completed [facility] HEPATITIS A Unknown Completed [facility] Hep B, Adol or Pedi Dosage Unknown Completed [facility] Hib-HbOC Unknown Completed [facility] HIB 3 Dose Schedule Unknown Completed [facility] HIB 4 Dose Schedule Unknown Completed [facility] HPV9 Unknown Completed [facility] MMR Unknown Completed [facility] Proquad (MMR/VARICELLA) Unknown Completed [facility] Pneumococcal 13 Conjugate, PCV13 (Prevnar 13) Unknown Completed [facility] Pneumococcal Polysaccharide, PPSV23 (PNEUMOVAX) Unknown Completed [facility] IPV Unknown Completed [facility] Varicella (varivax)(chicken pox) Unknown Completed [facility] TDAP Unknown Completed [facility] HIB PRP-D,booster Unknown Completed [facility] Hep B, Dtap, Polio Unknown Completed [facility] Meningococcal Polysaccharide (groups A, C, Y and W-135) conjugate vaccine (MCV4P) Unknown Completed [facility] DTAP Unknown Completed [facility] Polio (IPV/OPV) Unknown Completed [facility] Pneumococcal 7 Conjugate, PCV7 (Prevnar7) Unknown Completed [facility] SARS-COV-2 COVID-19 PFIZER VACCINE Unknown Completed [facility] DTaP, Unspecified Formulation Unknown Completed [facility] Influenza Virus Vaccine Quad .5 mL IM 6+ MO (FLUZONE/FLULAVAL/FL UARIX) Unknown Completed [facility] Flu Trivalent Unknown Completed [facility] Flu Whole Virus Unknown Completed [facility] HEP B, Adult Dosage Unknown Completed [facility] HEPA,NOS Unknown Completed [facility] HEPATITIS A Unknown Completed [facility] Hep B, Adol or Pedi Dosage Unknown Completed [facility] Hib-HbOC Unknown Completed [facility] HIB 3 Dose Schedule Unknown Completed [facility] HIB 4 Dose Schedule Unknown Completed [facility] HPV9 Unknown Completed [facility] MMR Unknown Completed [facility] Proquad (MMR/VARICELLA) Unknown Completed [facility] Pneumococcal 13 Conjugate, PCV13 (Prevnar 13) Unknown Completed [facility] Pneumococcal Polysaccharide, PPSV23 (PNEUMOVAX) Unknown Completed [facility] IPV Unknown Completed [facility] Varicella (varivax)(chicken pox) Unknown Completed [facility] TDAP Unknown Completed [facility] HIB PRP-D,booster Unknown Completed [facility] Hep B, Dtap, Polio Unknown Completed [facility] Meningococcal Polysaccharide (groups A, C, Y and W-135) conjugate vaccine (MCV4P) Unknown Completed [facility] DTAP Unknown Completed [facility] Polio (IPV/OPV) Unknown Completed [facility] Pneumococcal 7 Conjugate, PCV7 (Prevnar7) Unknown Completed [facility] SARS-COV-2 COVID-19 PFIZER VACCINE Unknown Completed [facility] DTaP, Unspecified Formulation Unknown Completed [facility] Influenza Virus Vaccine Quad .5 mL IM 6+ MO (FLUZONE/FLULAVAL/FL UARIX) Unknown Completed [facility] Flu Trivalent Unknown Completed [facility] Flu Whole Virus Unknown Completed [facility] HEP B, Adult Dosage Unknown Completed [facility] HEPA,NOS Unknown Completed [facility] HEPATITIS A Unknown Completed [facility] Hep B, Adol or Pedi Dosage Unknown Completed [facility] Hib-HbOC Unknown Completed [facility] HIB 3 Dose Schedule Unknown Completed [facility] HIB 4 Dose Schedule Unknown Completed [facility] HPV9 Unknown Completed [facility] MMR Unknown Completed [facility] Proquad (MMR/VARICELLA) Unknown Completed [facility] Pneumococcal 13 Conjugate, PCV13 (Prevnar 13) Unknown Completed [facility] Pneumococcal Polysaccharide, PPSV23 (PNEUMOVAX) Unknown Completed [facility] IPV Unknown Completed [facility] Varicella (varivax)(chicken pox) Unknown Completed [facility] TDAP Unknown Completed [facility] HIB PRP-D,booster Unknown Completed [facility] Influenza Virus Vaccine Quad IM, Preserv and ABX Free 6 MO-64 YRS (FLUCELVAX) Unknown Completed [facility] SARS-COV-2 COVID-19 PFIZER VACCINE Unknown Completed [facility] DTaP, Unspecified Formulation Unknown Completed [facility] Influenza Virus Vaccine Quad .5 mL IM 6+ MO (FLUZONE/FLULAVAL/FL UARIX) Unknown Completed [facility] Flu Trivalent Unknown Completed [facility] Flu Whole Virus Unknown Completed [facility] HEP B, Adult Dosage Unknown Completed [facility] HEPA,NOS Unknown Completed [facility] HEPATITIS A Unknown Completed [facility] Hep B, Adol or Pedi Dosage Unknown Completed [facility] Hib-HbOC Unknown Completed [facility] HIB 3 Dose Schedule Unknown Completed [facility] HIB 4 Dose Schedule Unknown Completed [facility] HPV9 Unknown Completed [facility] MMR Unknown Completed [facility] Proquad (MMR/VARICELLA) Unknown Completed [facility] Pneumococcal 13 Conjugate, PCV13 (Prevnar 13) Unknown Completed [facility] Pneumococcal Polysaccharide, PPSV23 (PNEUMOVAX) Unknown Completed [facility] IPV Unknown Completed [facility] Varicella (varivax)(chicken pox) Unknown Completed [facility] TDAP Unknown Completed [facility] HIB PRP-D,booster Unknown [facility] Vaccine Quad IM, Preserv and ABX Free 6 MO-64 YRS (FLUCELVAX) Unknown Completed [facility] DTAP Unknown Completed [facility] Meningococcal Polysaccharide (groups A, C, Y and W-135) conjugate vaccine (MCV4P) Unknown Completed [facility] Pneumococcal 7 Conjugate, PCV7 (Prevnar7) Unknown Completed [facility] Hep B, Dtap, Polio Unknown Completed [facility] Polio (IPV/OPV) Unknown Completed [facility] Pneumococcal 13 Conjugate, PCV13 (Prevnar 13) Unknown Completed [facility] HIB 4 Dose Schedule Unknown Completed [facility] Hep B, Dtap, Polio Unknown Completed [facility] HEPATITIS A Unknown Completed [facility] Hep B, Adol or Pedi Dosage Unknown Completed [facility] Meningococcal Polysaccharide (groups A, C, Y and W-135) conjugate vaccine (MCV4P) Unknown Completed [facility] DTAP Unknown Completed [facility] Polio (IPV/OPV) Unknown Completed [facility] Pneumococcal 7 Conjugate, PCV7 (Prevnar7) Unknown Completed [facility] SARS-COV-2 COVID-19 PFIZER VACCINE Unknown Completed [facility] DTaP, Unspecified Formulation Unknown Completed [facility] Influenza Virus Vaccine Quad .5 mL IM 6+ MO (FLUZONE/FLULAVAL/FL UARIX) Unknown Completed [facility] Flu Trivalent Unknown Completed [facility] Flu Whole Virus Unknown Completed [facility] HEP B, Adult Dosage Unknown Completed [facility] HEPA,NOS Unknown Completed [facility] Hib-HbOC Unknown Completed [facility] HIB 3 Dose Schedule Unknown Completed [facility] HPV9 Unknown Completed [facility] MMR Unknown Completed [facility] Proquad (MMR/VARICELLA) Unknown Completed [facility] Pneumococcal Polysaccharide, PPSV23 (PNEUMOVAX) Unknown Completed [facility] IPV Unknown Completed [facility] Varicella (varivax)(chicken pox) Unknown Completed [facility] TDAP Unknown Completed [facility] HIB PRP-D,booster Unknown Completed [facility] Influenza Virus Vaccine Quad IM, Preserv and ABX Free 6 MO-64 YRS (FLUCELVAX) Unknown Completed [facility] Pneumococcal 13 Conjugate, PCV13 (Prevnar 13) Unknown Completed [facility] HIB 4 Dose Schedule Unknown Completed [facility] Hep B, Dtap, Polio Unknown [facility] Completed [facility] Hep B, Adol or Pedi Dosage Unknown Completed [facility] Meningococcal Polysaccharide (groups A, C, Y and W-135) conjugate vaccine (MCV4P) Unknown Completed [facility] DTAP Unknown Completed [facility] Polio (IPV/OPV) Unknown Completed [facility] Pneumococcal 7 Conjugate, PCV7 (Prevnar7) Unknown Completed [facility] SARS-COV-2 COVID-19 PFIZER VACCINE Unknown Completed [facility] DTaP, Unspecified Formulation Unknown Completed [facility] Influenza Virus Vaccine Quad .5 mL IM 6+ MO (FLUZONE/FLULAVAL/FL UARIX) Unknown Completed [facility] Flu Trivalent Unknown Completed [facility] Flu Whole Virus Unknown Completed [facility] HEP B, Adult Dosage Unknown Completed [facility] HEPA,NOS Unknown Completed [facility] Hib-HbOC Unknown Completed [facility] HIB 3 Dose Schedule Unknown Completed [facility] HPV9 Unknown Completed [facility] MMR Unknown Completed [facility] Proquad (MMR/VARICELLA) Unknown Completed [facility] Pneumococcal Polysaccharide, PPSV23 (PNEUMOVAX) Unknown Completed [facility] IPV Unknown Completed [facility] Varicella (varivax)(chicken pox) Unknown Completed [facility] TDAP Unknown Completed [facility] HIB PRP-D,booster Unknown Completed [facility] Influenza Virus Vaccine Quad IM, Preserv and ABX Free 6 MO-64 YRS (FLUCELVAX) Unknown Completed [facility] Pneumococcal 13 Conjugate, PCV13 (Prevnar 13) Unknown Completed [facility] HIB 4 Dose Schedule Unknown Completed [facility] Hep B, Dtap, Polio Unknown Completed [facility] HEPATITIS A Unknown Completed [facility] Hep B, Adol or Pedi Dosage Unknown Completed [facility] Meningococcal Polysaccharide (groups A, C, Y and W-135) conjugate vaccine (MCV4P) Unknown Completed [facility] DTAP Unknown Completed [facility] Polio (IPV/OPV) Unknown Completed [facility] Pneumococcal 7 Conjugate, PCV7 (Prevnar7) Unknown Completed [facility] SARS-COV-2 COVID-19 PFIZER VACCINE Unknown Completed [facility] DTaP, Unspecified Formulation Unknown Completed [facility] Influenza Virus Vaccine Quad .5 mL IM 6+ MO (FLUZONE/FLULAVAL/FL UARIX) Unknown Completed [facility] Flu Trivalent Unknown Completed [facility] Flu Whole Virus Unknown Completed [facility] HEP B, Adult Dosage Unknown Completed [facility] HEPA,NOS Unknown Completed [facility] Hib-HbOC Unknown Completed [facility] HIB 3 Dose Schedule Unknown Completed [facility] HPV9 Unknown Completed [facility] MMR Unknown Completed [facility] Proquad (MMR/VARICELLA) Unknown Completed [facility] Pneumococcal Polysaccharide, PPSV23 (PNEUMOVAX) Unknown Completed [facility] IPV Unknown Completed [facility] Varicella (varivax)(chicken pox) Unknown Completed [facility] TDAP Unknown Completed [facility] HIB PRP-D,booster Unknown Completed [facility] Influenza Virus Vaccine Quad IM, Preserv and ABX Free 6 MO-64 YRS (FLUCELVAX) Unknown Completed [facility] Hep B, Dtap, Polio Unknown Completed [facility] Polio (IPV/OPV) Unknown Completed [facility] Influenza Virus Vaccine Quad .5 mL IM 6+ MO (FLUZONE/FLULAVAL/FL UARIX) Unknown Completed [facility] Flu Whole Virus Unknown Completed [facility] HEP B, Adult Dosage Unknown Completed [facility] HEPA,NOS Unknown Completed [facility] Hib-HbOC Unknown Completed [facility] HIB 3 Dose Schedule Unknown Completed [facility] HPV9 Unknown Completed [facility] Proquad (MMR/VARICELLA) Unknown Completed [facility] Pneumococcal Polysaccharide, PPSV23 (PNEUMOVAX) Unknown Completed [facility] TDAP Unknown Completed [facility] HIB PRP-D,booster Unknown Completed [facility] Influenza Virus Vaccine Quad IM, Preserv and ABX Free 6 MO-64 YRS (FLUCELVAX) Unknown Completed [facility] DTAP Unknown Completed [facility] SARS-COV-2 COVID-19 PFIZER VACCINE Unknown Completed [facility] DTaP, Unspecified Formulation Unknown Completed [facility] Flu Trivalent Unknown Completed [facility] Hep B, Adol or Pedi Dosage Unknown Completed [facility] HEPATITIS A Unknown Completed [facility] HIB 4 Dose Schedule Unknown Completed [facility] Meningococcal Polysaccharide (groups A, C, Y and W-135) conjugate vaccine (MCV4P) Unknown Completed [facility] MMR Unknown Completed [facility] Pneumococcal 13 Conjugate, PCV13 (Prevnar 13) Unknown Completed [facility] Pneumococcal 7 Conjugate, PCV7 (Prevnar7) Unknown Completed [facility] IPV Unknown Completed [facility] Varicella (varivax)(chicken pox) Unknown Completed [facility] Vital Signs Vital Name Observation Time Observation Value Comments Lizett nathan Systolic blood pressure 2024-06-17 10:43:00 118 mm[Hg] [facility] [place] Diastolic blood pressure 2024-06-17 10:43:00 79 mm[Hg] [facility] [place] Heart rate 2024-06-17 10:43:00 96 /min [facility] Body temperature 2024-06-17 10:43:00 36.72 [facility] Respiratory rate 2024-06-17 10:43:00 16 /[facility] Body height 2024-06-17 10:43:00 165.7 cm Deven [facility] Body weight 2024-06-17 10:43:00 68.493 kg Deven [facility] BMI 2024-06-17 10:43:00 24.94 kg/m2 [facility] Arterial blood by Pulse oximetry 2024-06-17 10:43:00 98 /min [facility] [place] Systolic blood pressure 2024-06-17 10:43:00 118 mm[Hg] [facility] Diastolic blood pressure 2024-06-17 10:43:00 79 mm[Hg] [facility] Heart rate 2024-06-17 10:43:00 96 /min [facility] Body temperature 2024-06-17 10:43:00 36.72 [facility] Respiratory rate 2024-06-17 10:43:00 16 /min [facility] Body height 2024-06-17 10:43:00 165[facility] Body weight 2024-06-17 10:43:00 68.493 [facility] 2024-06-17 10:43:00 24.94 kg/m2 [facility] Oxygen saturation in Arterial blood by Pulse oximetry 2024-06-17 10:43:00 98 /min [facility] Systolic blood pressure 2023-07-31 15:38:00 132 mm[Hg] [facility] Diastolic blood pressure 2023-07-31 15:38:00 87 mm[Hg] [facility] Heart rate 2023-07-31 15:38:00 98 /min [facility] Respiratory rate 2023-07-31 15:38:00 18 /min [facility] Body height 2023-07-31 15:38:00 165.1 cm Univ [facility] Body weight 2023-07-31 15:38:00 67.994 kg Univ [facility] BMI 2023-07-31 15:38:00 24.94 kg/m2 Univ [facility] Oxygen saturation in Arterial blood by Pulse oximetry 2023-07-31 15:38:00 100 /min [facility] Systolic blood pressure 2023-07-18 16:26:00 138 mm[Hg] [facility] Diastolic blood pressure 2023-07-18 16:26:00 94 mm[Hg] [facility] Heart rate 2023-07-18 16:20:00 108 /min [facility] Body height 2023-07-18 16:20:00 165.1 cm [facility] Body weight 2023-07-18 16:20:00 69.536 kg [facility] BMI 2023-07-18 16:20:00 25.51 kg/m2 Univ [facility] Oxygen saturation in Arterial blood by Pulse oximetry 2023-07-18 16:20:00 99 /min [facility] Systolic blood pressure 2023-07-10 18:39:00 133 mm[Hg] [facility] Diastolic blood pressure 2023-07-10 18:39:00 86 mm[Hg] [facility] Heart rate 2023-07-10 18:39:00 104 /min [facility] Body height 2023-07-10 18:39:00 165.1 cm Univ [facility] Body weight 2023-07-10 18:39:00 69.128 kg [facility] BMI 2023-07-10 18:39:00 25.36 kg/m2 [facility] in Arterial blood by Pulse oximetry 2023-07-10 18:39:00 97 /min [facility] Systolic blood pressure 2023-05-26 14:58:00 129 mm[Hg] [facility] Diastolic blood pressure 2023-05-26 14:58:00 86 mm[Hg] [facility] Heart rate 2023-05-26 14:58:00 94 /min [facility] Body height 2023-05-26 14:58:00 165.1 cm [facility] Body weight 2023-05-26 14:58:00 69.4 kg [facility] BMI 2023-05-26 14:58:00 25.46 kg/m2 [facility] Oxygen saturation in Arterial blood by Pulse oximetry 2023-05-26 14:58:00 98 /min [facility] Systolic blood pressure 2023-04-21 21:27:00 144 mm[Hg] [facility] Diastolic blood pressure 2023-04-21 21:27:00 96 mm[Hg] [facility] Heart rate 2023-04-21 21:27:00 103 /min [facility] Body height 2023-04-21 21:27:00 165.1 cm [facility] Body weight 2023-04-21 21:27:00 70.398 kg Univ [facility] BMI 2023-04-21 21:27:00 25.83 kg/m2 [facility] Systolic blood pressure 2023-04-13 19:32:00 115 mm[Hg] [facility] Diastolic blood pressure 2023-04-13 19:32:00 74 mm[Hg] [facility] Heart rate 2023-04-13 19:32:00 79 /min [facility] Body height 2023-04-13 19:32:00 165.1 cm Univ [facility] Body weight 2023-04-13 19:32:00 70.308 kg Univ [facility] BMI 2023-04-13 19:32:00 25.79 kg/m2 [facility] Oxygen saturation in Arterial blood by Pulse oximetry 2023-04-13 19:32:00 98 /min [facility] Systolic blood pressure 2023-03-31 19:23:00 110 mm[Hg] [facility] Diastolic blood pressure 2023-03-31 19:23:00 75 mm[Hg] [facility] Heart rate 2023-03-31 19:23:00 99 /min [facility] Body height 2023-03-31 19:23:00 165.1 cm [facility] Body weight 2023-03-31 19:23:00 70.398 kg [facility] BMI 2023-03-31 19:23:00 25.83 kg/m2 [facility] Oxygen saturation in Arterial blood by Pulse oximetry 2023-03-31 19:23:00 97 /min [facility] Systolic blood pressure 2023-03-24 14:42:00 129 mm[Hg] [facility] Diastolic blood pressure 2023-03-24 14:42:00 87 mm[Hg] [facility] Heart rate 2023-03-24 14:42:00 90 /min [facility] Body temperature 2023-03-24 14:42:00 36.72 Ronda [facility] Respiratory rate 2023-03-24 14:42:00 18 /min [facility] Body height 2023-03-24 14:42:00 165.1 cm Univ [facility] Body weight 2023-03-24 14:42:00 68.629 kg [facility] BMI 2023-03-24 14:42:00 25.18 kg/m2 [facility] Oxygen saturation in Arterial blood by Pulse oximetry 2023-03-24 14:42:00 99 /min [facility] Systolic blood pressure 2022-10-07 20:47:00 124 mm[Hg] [facility] Diastolic blood pressure 2022-10-07 20:47:00 86 mm[Hg] [facility] Heart rate 2022-10-07 20:47:00 101 /min [facility] Body height 2022-10-07 20:47:00 165.1 cm [facility] Body weight 2022-10-07 20:47:00 69.264 kg [facility] BMI 2022-10-07 20:47:00 25.41 kg/m2 [facility] Oxygen saturation in Arterial blood by Pulse oximetry 2022-10-07 20:47:00 94 /min [facility] Systolic blood pressure 2022-08-05 19:18:00 128 mm[Hg] [facility] Diastolic blood pressure 2022-08-05 19:18:00 81 mm[Hg] [facility] Heart rate 2022-08-05 19:18:00 110 /min [facility] Res[facility] rate 2022-08-05 19:18:00 23 /min [facility] Body height 2022-08-05 19:18:00 165.1 cm [facility] Body weight 2022-08-05 19:18:00 70.308 kg [facility] BMI 2022-08-05 19:18:00 25.79 kg/m2 [facility] Oxygen saturation in Arterial blood by Pulse oximetry 2022-08-05 19:18:00 97 /min [facility] Systolic blood pressure 2022-08-04 18:34:00 125 mm[Hg] [facility] Diastolic blood pressure 2022-08-04 18:34:00 84 mm[Hg] [facility] Heart rate 2022-08-04 18:34:00 96 /min [facility] Body height 2022-08-04 18:34:00 165.1 cm [facility] Body weight 2022-08-04 18:34:00 70.625 kg Univ [facility] BMI 2022-08-04 18:34:00 25.91 kg/m2 [facility] Oxygen saturation in Arterial blood by Pulse oximetry 2022-08-04 18:34:00 97 /min [facility] Systolic blood pressure 2022-07-05 16:31:00 128 mm[Hg] [facility] Diastolic blood pressure 2022-07-05 16:31:00 86 mm[Hg] [facility] Heart rate 2022-07-05 16:31:00 93 /min [facility] Body height 2022-07-05 16:31:00 165.1 cm [facility] Body weight 2022-07-05 16:31:00 67.722 kg [facility] BMI 2022-07-05 16:31:00 24.84 kg/m2 [facility] Oxygen saturation in Arterial blood by Pulse oximetry 2022-07-05 16:31:00 99 /min [facility] Procedures Procedure Date / Time Performed Performing Clinician Source Vitamin B1 Level 2024-06-17 00:00:00 Deven Spain [facility] C-Reactive Protein 2024-06-17 00:00:00 [facility] Sedimentation Rate 2024-06-17 00:00:00 [facility] Complete Blood Count w/Diff and Platelet 2024-06-17 00:00:00 [facility] Copper Level 2024-06-17 00:00:00 [facility] Ceruloplasmin 2024-06-17 00:00:00 Joanne echeverria [facility] Zinc Level 2024-06-17 00:00:00 [facility] MRI brain wo IV contrast 2024-06-17 00:00:00 [facility] CBC WITH DIFF 2023-07-31 16:31:00 Emre Gan [facility] FLU VACC ([id number]), 6 MO-64 YRS, .5ML, IM, QUAD (FLUCELVAX) 2023-07-31 16:29:55 Emre Gan [facility] MEDICAL RELEASE/CLEARANCE FORMS 2023-07-18 05:01:00 Doctor Unassigned, [place] [facility] CBC WITH DIFF 2023-07-10 19:47:00 Emre Gan [facility] COMP. METABOLIC PANEL ([id number]) 2023-07-10 19:47:00 Emre Gan [facility] POCT HEMOGLOBIN A1C TEST 2023-07-10 00:00:00 Benjamín Gan [facility] TDAP VACCINE, >11 YRS, IM 2023-05-26 15:11:45 Braeden Gan [facility] POCT HEMOGLOBIN A1C TEST 2023-05-26 00:00:00 Benjamín Gan [facility] MEDICAL RELEASE/CLEARANCE FORMS 2023-03-31 05:01:00 Doctor Unassigned, [place] [facility] ASSIGNMENT OF BENEFITS 2022-10-07 20:44:49 Dockaroline r Unassigned, [place] [facility] INSURANCE CORRESPONDENCE 2022-08-16 06:01:00 Doc kathi Unassigned, [place] [facility] POCT HEMOGLOBIN A1C TEST 2022-08-04 20:25:00 Benjamín Gan [facility] Encounters Start Date/Time End Date/Time Encounter Type Admission Type Attending [facility] Facility Care Department Encounter ID Source 2024-06-17 11:00:00 2024-06-17 11:11:49 Consult Esther Corrigan 1.2.840.114 350.1.13.70 8.2.7.2.686 [id number] Joanne Spain [facility] 2024-06-17 10:35:24 2024-06-17 11:11:49 Outpatient ESTHER CORRIGAN [facility] [id number] [facility] 2024-04-30 11:19:38 2024-04-30 11:19:38 Outpatient S[facility] [id number] [place] 2024-04-01 10:11:03 2024-04-01 10:11:03 Outpatient MAYRA [facility] [id number] [place] 2024-02-16 16:30:00 2024-02-16 16:30:[address] [facility] [id number] [facility] 2024-02-16 16:30:00 2024-02-16 16:30:38 Office Visit Melly Barber [facility] 1.84.114 350.1.13.10 4.2.7.2.[id number] [facility] 2024-01-31 00:00:00 2024-01-31 00:00:00 [facility] 1.84.114 350.1.13.10 4.2.7.2.[id number] [facility] 2023-11-21 13:00:00 2023-11-21 13:00:00 Outpatient R ANN MCKNIGHT [facility] [id number] [facility] 2023-09-22 00:00:00 2023-09-22 00:00:00 Refill Melly Barber [facility] 1.84.114 350.1.13.10 4.2.7.2.[id number] [facility] 2023-08-10 13:30:00 2023-08-10 13:30:00 Outpatient R EMRE GAN [facility] [id number] [facility] 2023-08-02 00:00:00 2023-08-02 00:00:00 Patient Secure Msg Doctor Unassigned, [place] [facility] 1.84.114 350.1.13.10 4.2.7.2.[id number] [facility] 2023-07-31 11:45:00 2023-07-31 12:00:00 Electric Brain Wave Equipment Mechanic Visit Lab, [facility] 1.84.114 350.1.13.10 4.2.7.2.[id number] [facility] 2023-07-31 11:00:00 2023-07-31 11:26:15 Outpatient R EMRE GAN [facility] [id number] [facility] 2023-07-31 11:00:00 2023-07-31 11:26:15 Office Visit Emre Gan [facility] NEVAEH SHELDON?[facility] 1.2.840.114 350.1.13.10 4.2.7.2.[id number] [facility] 2023-07-25 00:00:00 2023-07-25 00:00:00 Patient Secure Msg [facility] 1..840.114 350.1.13.10 4.2.7.2.[id number] [facility] 2023-07-25 00:00:00 2023-07-25 00:00:00 Telephone [facility] 1..840.114 350.1.13.10 4.2.7.2.[id number] [facility] 2023-07-19 09:15:00 2023-07-19 09:15:[address] [facility] [id number] [facility] 2023-07-18 11:30:00 2023-07-18 12:10:40 Outpatient R ANN MCKNIGHT [facility] [id number] [facility] 2023-07-18 11:30:00 2023-07-18 12:10:40 Office Visit [facility] 1..840.114 350.1.13.10 4.2.7.2.[id number] [facility] 2023-07-18 00:00:00 2023-07-18 00:00:00 Letter (Out) Barbgiovannasantiago [facility] 1.2840.114 350.1.13.10 4.2.7.2.[id number] [facility] 2023-07-18 00:00:00 2023-07-18 00:00:00 Refill Ann Mcknight [facility] 1.2840.114 350.1.13.10 4.2.7.2.[id number] [facility] 2023-07-18 00:00:00 2023-07-18 00:00:00 Orders Only Doctor Unassigned, [place] [facility] 1.2840.114 350.1.13.10 4.2.7.2.[id number] [facility] 2023-07-17 00:00:00 2023-07-17 00:00:00 Telephone [facility]via [facility] 1.840.114 350.1.13.10 4.2.7.2.[id number] [facility] 2023-07-16 15:30:00 2023-07-16 15:30:00 Outpatient R EMRE GAN [facility] [id number] [facility] 2023-07-11 00:00:00 2023-07-11 00:00:00 Telephone Kirsten Ganthia [facility] 1.2840.114 350.1.13.10 4.2.7.2.[id number] [facility] 2023-07-11 00:00:00 2023-07-11 00:00:00 Telephone ElviaEmre [facility] 1.2840.114 350.1.13.10 4.2.7.2.[id number] [facility] 2023-07-10 17:00:00 2023-07-10 17:15:00 Electric Brain Wave Equipment Mechanic Visit Lab, [place] Cardona [facility] 1.2.840.114 350.1.13.10 4.2.7.2.[id number] [facility] 2023-07-10 13:30:00 2023-07-10 14:37:44 Outpatient R EMRE GAN [facility] [id number] [facility] 2023-07-10 13:30:00 2023-07-10 14:37:44 Office [facility] 1.2.840.114 350.1.13.10 4.2.7.2.[id number] [facility] 2023-05-26 09:30:00 2023-05-26 10:29:53 Outpatient R EMRE GNA [facility] [id number] [facility] 2023-05-26 09:30:00 2023-05-26 10:29:53 Office [facility] 1.2.840.114 350.1.13.10 4.2.7.2.[id number] [facility] 2023-04-27 14:30:00 2023-04-27 14:30:00 Outpatient R EMRE GAN [facility] [id number] [facility] 2023-04-21 16:30:00 2023-04-21 17:06:39 Outpatient R RICHARD CRUZ [facility] [id number] [facility] 2023-04-21 16:30:00 2023-04-21 17:06:39 Office Visit Richard Cruz [facility] 1.84.114 350.1.13.10 4.2.7.2.[id number] [facility] 2023-04-21 00:00:00 2023-04-21 00:00:00 Letter (Out) Richard Cruz [facility] NEV[facility]H [facility]LDON?[facility] 1.84.114 350.1.13.10 4.2.7.2.[id number] [facility] 2023-04-13 14:30:00 2023-04-13 15:12:55 Outpatient R EMRE GAN [facility] [id number] [facility] 2023-04-13 14:30:00 2023-04-13 15:12:55 Office [facility] 1.84.114 350.1.13.10 4.2.7.2.[id number] [facility] 2023-04-13 00:00:00 2023-04-13 00:00:00 Letter (Out) Elvia [facility] 1.84.114 350.1.13.10 4.2.7.2.[id number] [facility] 2023-04-03 00:00:00 2023-04-03 00:00:00 Patient Secure Msg Doctor Unassigned, [place] [facility] 1.84.114 350.1.13.10 4.2.7.2.[id number] [facility] 2023-03-31 15:15:00 2023-03-31 15:34:55 Electric Brain Wave Equipment Mechanic Visit Lab, [place] - Brendan Gan [facility] 1.84.114 350.1.13.10 4.2.7.2.[id number] [facility] 2023-03-31 14:00:00 2023-03-31 15:08:45 Outpatient R EMRE GAN [facility] [id number] [facility] 2023-03-31 14:00:00 2023-03-31 15:08:45 [facility] 1.840.114 350.1.13.10 4.2.7.2.[id number] [facility] 2023-03-31 00:00:00 2023-03-31 00:00:00 Letter (Out) [facility] 1.840.114 350.1.13.10 4.2.7.2.[id number] [facility] 2023-03-31 00:00:00 2023-03-31 00:00:00 Orders Only Doctor Unassigned, [place] [facility] 1.84.114 350.1.13.10 4.2.7.2.[id number] [facility] 2023-03-29 13:00:00 2023-03-29 13:00:00 Outpatient R MELLY BARBER [facility] [id number] [facility] 2023-03-24 09:30:00 2023-03-24 10:00:00 Office Visit Melly Barber [facility] 1.840.114 350.1.13.10 4.2.7.2.[id number] [facility] 2023-03-24 09:30:00 2023-03-24 09:30:00 Outpatient R MELLY BARBER [facility] [id number] [facility] 2023-03-24 00:00:00 2023-03-24 00:00:00 Letter (Out) [facility] 1.2.840.114 350.1.13.10 4.2.7.2.[id number] [facility] 2023-03-24 00:00:00 2023-03-24 00:00:00 Letter (Out) [facility] 1..840.114 350.1.13.10 4.2.7.2.[id number] [facility] 2023-03-21 00:00:00 2023-03-21 00:00:00 Telephone Kirsten Ganthia [facility] 1.2840.114 350.1.13.10 4.2.7.2.[id number] [facility] 2023-03-17 15:30:00 2023-03-17 15:30:00 Outpatient R RICHARD CRUZ [facility] [id number] [facility] 2023-02-26 00:00:00 2023-02-26 00:00:00 Refill Elvia Emre [facility] 1.2.840.114 350.1.13.10 4.2.7.2.[id number] [facility] 2023-02-21 00:00:00 2023-02-21 00:00:00 Telephone Richard Cruz [facility] 1.2.840.114 350.1.13.10 4.2.7.2.[id number] [facility] 2023-01-19 00:00:00 2023-01-19 00:00:00 Telephone [facility] 1.84.114 350.1.13.10 4.2.7.2.[id number] [facility] 2023-01-09 00:00:00 2023-01-09 00:00:00 Refill [facility] 1..114 350.1.13.10 4.2.7.2.[id number] [facility] 2022-10-18 00:00:00 2022-10-18 00:00:00 [facility] 1..114 350.1.13.10 4.2.7.2.[id number] [facility] 2022-10-07 15:00:00 2022-10-07 15:46:19 Outpatient R RICHARD CRUZ [facility] [id number] [facility] 2022-10-07 15:00:00 2022-10-07 15:46:19 Office Visit Richard Cruz [facility] 1..114 350.1.13.10 4.2.7.2.[id number] [facility] 2022-10-07 00:00:00 2022-10-07 00:00:00 Orders Only Doctor Unassigned, [place] [facility] 1..114 350.1.13.10 4.2.7.2.[id number] [facility] 2022-09-15 00:00:00 2022-09-15 00:00:00 Telephone [facility] 1.0.114 350.1.13.10 4.2.7.2.[id number] [facility] 2022-08-25 15:48:17 2022-08-25 23:59:00 Outpatient R BANDAR [id number] [facility] 2022-08-25 00:00:00 2022-08-25 00:00:00 Patient Secure Msg [facility] BUILDING 1.840.114 350.1.13.10 4.2.7.2.[id number] [facility] 2022-08-16 00:00:00 2022-08-16 00:00:00 Orders Only Doctor Unassigned, [place] [facility] 1.840.114 350.1.13.10 4.2.7.2.[id number] [facility] 2022-08-05 14:00:00 2022-08-05 14:39:02 [id number] 2022-08-05 14:00:00 2022-08-05 14:39:02 Office Visit [facility] BUILDING 1..840.114 350.1.13.10 4.2.7.2.[id number] [facility] 2022-08-04 13:30:00 2022-08-04 14:59:51 Outpatient R EMRE GAN [facility] [id number] [facility] 2022-08-04 13:30:00 2022-08-04 14:59:51 Office Visit Emre Gan [facility]?BLUERowena [facility] 1..840.114 350.1.13.10 4.2.7.2.[id number] [facility] 2022-07-19 00:00:00 2022-07-19 00:00:00 Luis Miguel Dalton [facility] PITO?[facility] 1.2.840.114 350.1.13.10 4.2.7.2.[id number] [facility] 2022-07-05 11:30:00 2022-07-05 11:46:02 Outpatient R EMRE GAN [facility] [id number] [facility] 2022-07-05 11:30:00 2022-07-05 11:46:02 [facility] 1.2.840.114 350.1.13.10 4.2.7.2.[id number] [facility] 2022-07-05 00:00:00 2022-07-05 00:00:00 Telephone [facility] MED[facility] OFFICE BUILDING 1..840.114 350.1.13.10 4.2.7.2.[id number] [facility] 2022-07-02 00:00:00 2022-07-02 00:00:00 Patient Secure Msg Doctor Unassigned, [place] [facility] 1.840.114 350.1.13.10 4.2.7.2.[id number] [facility] 2022-06-28 00:00:00 2022-06-28 00:00:00 Telephone [facility] BU[facility] 1.2.840.114 350.1.13.10 4.2.7.2.[id number] [facility] 2022-06-22 00:00:00 2022-06-22 00:00:00 Telephone Anene, [facility] PITO?CESARIO [facility] MEDICAL OFFICE BUILDING 1.2840.114 350.1.13.10 4.2.7.2.[id number] [facility] 2022-06-21 00:00:00 2022-06-21 00:00:00 Case Management Bebeto Arce [facility] PITO?[facility] MED[facility] OFFICE BUILDING 1.2840.114 350.1.13.10 4.2.7.2.[id number] [facility] 2022-06-21 00:00:00 2022-06-21 00:00:00 Case Management Yazmin [facility] PITO?[facility] MEDICAL OFFICE BUILDING 1.2840.114 350.1.13.10 4.2.7.2.[id number] [facility] 2022-06-21 00:00:00 2022-06-21 00:00:00 Case Management Yazmin [facility] PITO?[facility] MEDICAL OFFICE BUILDING 1.2840.114 350.1.13.10 4.2.7.2.[id number] [facility] 2022-06-20 12:00:00 2022-06-20 12:14:16 Electric [employer] Equipment Mechanic Visit Lab, Jackson Cardona [facility] MEDICAL OFFICE BUILDING 1.2840.114 350.1.13.10 4.2.7.2.[id number] [facility] 2022-06-20 12:00:00 2022-06-20 12:14:16 Electric [employer] Wave Equipment Mechanic Visit Lab, Jackson Cardona Elvia [facility] MED[facility] OFF[facility] BUILDING 1.2840.114 350.1.13.10 4.2.7.2.[id number] [facility] 2022-06-20 12:00:00 2022-06-20 12:14:16 Electric [employer] Equipment Mechanic Visit Lab, Jackson - Brendan [facility] MEDICAL OFFICE BUILDING 1..840.114 350.1.13.10 4.2.7.2.[id number] [facility] 2022-06-20 11:30:00 2022-06-20 11:47:22 Outpatient R EMRE GAN [facility] [id number] [facility] 2022-06-20 11:30:00 2022-06-20 11:47:22 Office Visit [facility] MEDICAL OFFICE BUILDING 1..840.114 350.1.13.10 4.2.7.2.[id number] [facility] 2022-06-20 11:30:00 2022-06-20 11:47:22 Outpatient R EMRE GAN [facility] [id number] [facility] 2022-06-20 11:30:00 2022-06-20 11:47:22 Office [facility] MED[facility] OFF[facility] BUILDING 1..840.114 350.1.13.10 4.2.7.2.[id number] [facility] 2022-06-20 11:30:00 2022-06-20 11:47:22 Outpatient R EMRE GAN [facility] [id number] [facility] 2022-06-20 00:00:00 2022-06-20 00:00:00 Letter (Out) [facility] 1.2.840.114 350.1.13.10 4.2.7.2.[id number] [facility] 2022-06-20 00:00:00 2022-06-20 00:00:00 Telephone [facility]irsten [facility] MEDICAL OFFICE BUILDING 1..840.114 350.1.13.10 4.2.7.2.[id number] [facility] 2022-06-20 00:00:00 2022-06-20 00:00:00 Telephone [facility] MEDICAL OFFICE BUILDING 1.840.114 350.1.13.10 4.2.7.2.[id number] [facility] 2022-05-28 12:00:00 2022-05-28 12:00:00 Urgent Care [facility] MEDICAL OFFICE BUILDING 1..840.114 350.1.13.10 4.2.7.2.[id number] [facility] 2022-05-28 12:00:00 2022-05-28 12:00:00 Urgent Care [facility] PITO?[facility] MEDICAL OFFICE BUILDING 1.840.114 350.1.13.10 4.2.7.2.[id number] [facility] 2022-05-28 12:00:00 2022-05-28 11:55:15 Outpatient R LITZY VERDUZCOANDA [facility] [id number] [facility] 2022-05-20 20:40:00 2022-05-20 20:40:00 Outpatient R BEBETO ARCE [facility] [id number] [facility] 2022-05-12 00:00:00 2022-05-12 00:00:00 Refill Kirsten [facility] HospitalRO[facility] MEDICAL OFFICE BUILDING 1..840.114 350.1.13.10 4.2.7.2.[id number] [facility] 2022-04-29 12:00:00 2022-04-29 12:20:00 Urgent Care Bebeto Arce [facility] MEDICAL OFFICE BUILDING 1.114 350.1.13.10 4.2.7.2.[id number] [facility] 2022-04-29 12:00:00 2022-04-29 12:00:00 Outpatient R BEBETO ARCE [facility] [id number] [facility] 2022-04-04 00:00:00 2022-04-04 00:00:00 Refill mEre Gan [facility] MEDICAL OFFICE BUILDING 1.114 350.1.13.10 4.2.7.2.[id number] [facility] 2022-03-28 16:20:00 2022-03-28 16:40:00 Urgent Care Latisha Leegonzales VerduzcoKateryna [facility] MEDICAL OFFICE BUILDING 1.114 350.1.13.10 4.2.7.2.[id number] [facility] 2022-03-28 16:20:00 2022-03-28 16:20:00 Outpatient R JAMA LEE [facility] [id number] [facility] 2022-03-21 00:00:00 2022-03-21 00:00:00 Orders Only Doctor Unassigned, [place] [facility] 1.114 350.1.13.10 4.2.7.2.[id number] [facility] 2022-03-03 00:00:00 2022-03-03 00:00:00 Refill Luis Miguel Estrada [facility] MEDICAL OFFICE BUILDING 1.114 350.1.13.10 4.2.7.2.[id number] [facility] 2022-02-02 00:00:00 2022-02-02 00:00:00 Telephone [facility]re [facility] MEDICAL OFFICE BUILDING 1..840.114 350.1.13.10 4.2.7.2.[id number] [facility] 2022-01-28 11:30:00 2022-01-28 11:30:00 Outpatient R EMRE GAN [facility] [id number] [facility] 2022-01-28 11:30:00 2022-01-28 11:30:00 Outpatient R EMRE GAN [facility] [id number] [facility] 2022-01-07 00:00:00 2022-01-07 00:00:00 Patient Secure Msg Doctor Unassigned, [place] [facility] MEDICAL OFFICE BUILDING 1.840.114 350.1.13.10 4.2.7.2.[id number] [facility] 2022-01-05 13:20:00 2022-01-05 13:20:00 Urgent Care Bebeto Arce [facility] PITO?[facility] MEDICAL OFFICE BUILDING 1..840.114 350.1.13.10 4.2.7.2.[id number] [facility] 2022-01-05 13:20:00 2022-01-05 10:49:31 Outpatient Pee HURT HEIDE [facility] [id number] [facility] 2022-01-05 00:00:00 2022-01-05 00:00:00 Letter (Out) Provider, Jackson Cardona Urgent Care [facility] MEDICAL OFFICE BUILDING 1..840.114 350.1.13.10 4.2.7.2.[id number] [facility] 2022-01-05 00:00:00 2022-01-05 00:00:00 Telephone Bebeto Arce [facility] PITO?[facility] MEDICAL OFFICE BUILDING 1.2.840.114 350.1.13.10 4.2.7.2.[id number] [facility] 2022-01-04 00:00:00 2022-01-04 00:00:00 Orders Only Doctor Unassigned, [place] [facility] 1.2.840.114 350.1.13.10 4.2.7.2.[id number] [facility] 2021-12-31 00:00:00 2021-12-31 00:00:00 Telephone Emre Gan [facility] PITO?[facility] MEDICAL OFFICE BUILDING 1.2.840.114 350.1.13.10 4.2.7.2.[id number] [facility] 2021-12-31 00:00:00 2021-12-31 00:00:00 Telephone Saskia [facility] hospital P[facility]O?[facility] MEDICAL OFFICE BUILDING 1.2.840.114 350.1.13.10 4.2.7.2.[id number] [facility] 2021-12-30 11:00:00 2021-12-30 11:00:00 Outpatient R EMRE GAN [facility] [id number] [facility] 2021-12-30 11:00:00 2021-12-30 11:00:[address] [facility] [id number] [facility] 2021-12-28 11:30:00 2021-12-28 12:26:[address] [facility] [id number] [facility] 2021 00:00:00 2021 00:00:00 Telephone Anene, [facility] 1.84.114 350.1.13.10 4.2.7.2.[id number] [facility] 2021-11-04 11:30:00 2021-11-04 11:30:00 Outpatient R TAMMYCHRISTOPHER Cruz [facility] [id number] 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 2021-11-02 15:00:00 2021-11-02 16:27:02 [facility] [id number] 2021-11-02 15:00:00 2021-11-02 16:27:02 Office [facility] 1.84114 350.1.13.10 4.2.7.2.[id number] [facility] 2021-10-19 00:00:00 2021-10-19 00:00:00 Demetri Ng [facility] 1.114 350.1.13.10 4.2.7.2.[id number] [facility] 2021-10-18 13:45:00 2021-10-18 15:41:27 Outpatient R DEMETRI LAKE BRENT [facility] [id number] [facility] 2021-10-18 13:45:00 2021-10-18 15:41:27 Office Visit Joan Carlson Brent C [facility] 1.114 350.1.13.10 4.2.7.2.[id number] [facility] 2021-10-18 13:45:00 2021-10-18 15:41:27 Office Visit Joan Carlson Brent C [facility] 1.2.840.114 350.1.13.10 4.2.7.2.[id number] [facility] 2021-10-18 13:45:00 2021-10-18 15:41:27 [address] ELISE [address] [facility] [id number] [facility] 2021-10-13 00:00:00 2021-10-13 00:00:00 Telephone Kirsten [facility] REESEE?[facility] 1.2.840.114 350.1.13.10 4.2.7.2.[id number] [facility] 2021-10-05 10:30:00 2021-10-05 11:13:32 Office [facility] BU[facility] 1.2.840.114 350.1.13.10 4.2.7.2.[id number] [facility] 2021-10-05 10:30:00 2021-10-05 11:13:32 Outpatient R EMRE GAN [facility] [id number] [facility] 2021-10-05 10:30:00 2021-10-05 10:30:00 Outpatient R EMRE GAN [facility] [id number] [facility] 2021-10-05 10:30:00 2021-10-05 10:30:00 Outpatient R EMRE GAN [facility] [id number] [facility] 2021-10-04 00:00:00 2021-10-04 00:00:00 Telephone [facility] MEDICAL OFFICE BUILDING 1..840.114 350.1.13.10 4.2.7.2.[id number] 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 2021-09-27 10:30:00 2021-09-27 10:30:00 Outpatient R EMRE GAN [facility] [id number] [facility] 2021-09-27 00:00:00 2021-09-27 00:00:00 [facility] MEDICAL OFFICE BUILDING 1.840.114 350.1.13.10 4.2.7.2.[id number] [facility] 2021-09-24 16:30:00 2021-09-24 17:11:50 Outpatient R EMRE GAN [facility] [id number] [facility] 2021-09-24 16:30:00 2021-09-24 17:11:50 Office Visit Saskia [facility]Critical access hospital PITO?[facility] MEDICAL OFFICE BUILDING 1..840.114 350.1.13.10 4.2.7.2.[id number] [facility] 2021-09-24 16:30:00 2021-09-24 17:11:50 Outpatient R EMRE GAN [facility] [id number] [facility] 2021-09-06 13:07:39 2021-09-06 14:01:08 Office [facility] MEDICAL OFFICE BUILDING 1..840.114 350.1.13.10 4.2.7.2.[id number] [facility] 2021-09-06 13:00:00 2021-09-06 14:01:[address] [facility] [id number] [facility] 2021-09-06 13:00:00 2021-09-06 13:00:00 [id number] [facility] 2021-09-06 00:00:00 2021-09-06 00:00:00 Orders Only Doctor Unassigned, [place] [facility] 1.2.840.114 350.1.13.10 4.2.7.2.[id number] [facility] 2021-02-06 13:10:00 2021-02-06 13:10:[address] [facility] [id number] [facility] 2021-01-16 13:10:00 2021-01-16 13:10:[address] [facility] [id number] [facility] Results Test Description Test Time Test Comments Results Result Co mments Source [facility] HEMOGLOBIN A1C [id number] 19:37:00* Test Item Value Reference Range Interpretation Comme [facility] POCT HBA1C (test code = 4548-4) 9.1 % 4-6 A Lab Interpretation (test cod e = 20223-5) Abnormal [facility] HEMOGLOBIN A1C [id number] 19:37:00* Test Item Value Reference Range Interpretation Comme [facility] POCT HBA1C (test code = 4548-4) 9.1 % 4-6 A Lab Interpretation (test cod e = 60040-7) Abnormal [facility] HEMOGLOBIN A1C [id number] 15:18:00* Test Item Value Reference Range Interpretation Comme [facility] POCT HBA1C (test code = 4548-4) 8.8 % 4-6 A Lab Interpretation (test cod e = 73668-1) Abnormal [facility] HEMOGLOBIN A1C [id number] 15:18:00* Test Item Value Reference Range Interpretation Comme [facility] POCT HBA1C (test code = 4548-4) 8.8 % 4-6 A Lab Interpretation (test cod e = 00945-1) Abnormal [facility] HEMOGLOBIN A1C [id number] 21:00:00* Test Item Value Reference Range Interpretation Comme [facility] POCT HBA1C (test code = 4548-4) 12.1 % 4-6 A Lab Interpretation (test cod e = 32574-4) Abnormal [facility] HEMOGLOBIN A1C [id number] 21:00:00* Test Item Value Reference Range Interpretation Comme [facility] POCT HBA1C (test code = 4548-4) 12.1 % 4-6 A Lab Interpretation (test cod e = 79116-4) Abnormal [facility]
--- NOTE | 2024-11-17 04:41 | EDPHYS ---
Physician Documentation [facility] Name: Sergio Hilton Age: 23 yrs Sex: Male : 2000 Arrival Date: 11/17/2024 Time: 04:25 Bed 14 Private MD: ED Physician Ulises Sheikh HPI: 11/17 04:35 This 23 yrs old Male presents to ER via Unassigned with complaints of cp Toothache. 04:35 The patient presents with pain. The problem is located in the right lower molar. Onset: cp The symptoms/episode began/occurred for awhile. Duration: The symptoms are continuous, and are steadily getting worse. Associated signs and symptoms: Pertinent negatives: fever, inability to eat, swelling, vomiting. Severity of symptoms: in the emergency department the symptoms are unchanged, despite home interventions. Historical: - Allergies: 04:29 chemo; ha1 04:29 Latex; ha1 - Home Meds: 04:29 metformin 500 mg Oral tablet 2 times per day [Active]; citalopram oral [Active]; ha1 Trazodone Oral [Active]; oxcarbazepine oral [Active]; - PMHx: 04:29 Bipolar disorder; diabetes mellitus; Irritable bowel syndrome; Leukemia; ha1 - PSHx: 04:29 Appendectomy; ha1 - Immunization history:: Adult Immunizations up to date. - Infectious Disease History:: Denies. - Social history:: Smoking status: Patient denies any tobacco usage or history of. ROS: 04:36 Eyes: Negative for injury, pain, redness, and discharge, cp 04:36 Constitutional: Negative for body aches, chills, fever, poor PO intake, 04:36 ENT: Positive for dental pain, Negative for drainage from ear(s), ear pain, sore throat, difficulty swallowing, difficulty handling secretions, 04:36 Cardiovascular: Negative for chest pain, edema, palpitations, 04:36 Respiratory: Negative for cough, shortness of breath, wheezing, 04:36 Abdomen/GI: Negative for abdominal pain, nausea, vomiting, and diarrhea, 04:36 Neuro: Negative for altered mental status, headache, weakness, 04:36 All other systems are negative, Exam: 04:37 Head/Face: Normocephalic, atraumatic. cp 04:37 Constitutional: The patient appears in no acute distress, alert, awake, non-toxic, well developed, well nourished, 04:37 Eyes: Periorbital structures: appear normal, Conjunctiva: normal, no exudate, no injection, Sclera: no appreciated abnormality, Lids and lashes: appear normal, bilaterally, 04:37 ENT: External ear(s): are unremarkable, Nose: is normal, Mouth: Lips: moist, Oral mucosa: moist, Posterior pharynx: Airway: no evidence of obstruction, patent, erythema, is not appreciated, exudate, is not appreciated, Dental exam: abscess, is not appreciated, pain, that is moderate, specifically in the lower right first molar (#30), Voice: is normal, 04:37 Neck: ROM/movement: is normal, is supple, without pain, no range of motions limitations, 04:37 Chest/axilla: Inspection: normal, 04:37 Respiratory: the patient does not display signs of respiratory distress, Respirations: normal, no use of accessory muscles, no retractions, labored breathing, is not present, 04:37 Abdomen/GI: Exam negative for discomfort, distension, guarding, Inspection: abdomen appears normal, Vital Signs: 04:29 BP 147 / 109; Pulse 100; Resp 19 S; Temp 98.3; Pulse Ox 100% on R/A; Weight 65.77 kg; ha1 Height 5 ft. 5 in. ; 04:29 Body Mass Index 24.13 (65.77 kg, 165.1 cm) ha1 MDM: 04:31 Medical Screening Exam initiated 04:40 Differential diagnosis: dental caries, dental abscess, pericoronitis, aphthous ulcers, cp gingivostomatitis. 04:41 Data reviewed: vital signs, nurses notes, and as a result, I will discharge patient. 04:41 I considered the following discharge prescriptions or medication management in the emergency department Medications were administered in the Emergency Department. See MAR. Test considered but Not performed: CT: facial bones. Counseling: I had a detailed discussion with the patient and/or guardian regarding the historical points, exam findings, and any diagnostic results supporting the discharge/admit diagnosis, the need for outpatient follow up, for definitive care, a dentist, to return to the emergency department if symptoms worsen or persist or if there are any questions or concerns that arise at home. Response to treatment: the patient's symptoms have mildly improved after treatment, and as a result, I will discharge patient. Administered Medications: 04:42 Drug: Acetaminophen PO 650 mg PO once Route: PO; rg5 04:57 Follow up: Response: No adverse reaction; Pain is decreased rg5 04:42 Drug: Clindamycin PO 300 mg PO once Route: PO; rg5 04:57 Follow up: Response: No adverse reaction rg5 04:43 Drug: Ketorolac IM 30 mg IM once Route: IM; Site: right deltoid; rg5 04:57 Follow up: Response: No adverse reaction; Pain is decreased rg5 Disposition Summary: 11/17/24 04:41 Discharge Ordered Notes: Location: Home cp Problem: new cp Symptoms: have improved cp Condition: Stable cp Diagnosis - Other specified disorders of teeth and supporting structures cp Followup: cp - With: Private Physician - When: 1 - 2 days - Reason: Recheck today's complaints Discharge Instructions: - Discharge Summary Sheet cp - Dental Pain cp - Diet and Dental Disease cp Forms: - Medication Reconciliation Form cp - Antibiotic Education cp - Prescription Opioid Use cp - Patient Portal Instructions cp - Leadership Thank You Letter cp Prescriptions: - Clindamycin HCl 300 mg Oral Capsule - take 1 capsule ORAL route every 6 hours for 10 days; 40 capsule; Refills: 0, cp Product Selection Permitted - Ibuprofen 800 mg Oral Tablet - take 1 tablet ORAL route every 8 hours As needed take with food; 30 tablet; cp Refills: 0, Product Selection Permitted Signatures: Ulises Sullivan PA PA cp Adela Cutler RN RN ha1 Enio Bar RN RN rg5
--- NOTE | 2024-11-17 04:41 | ER ---
Nurse's Notes [facility] Name: Sergio Hilton Age: 23 yrs Sex: Male : 2000 Arrival Date: 11/17/2024 Time: 04:25 Bed 14 Private MD: Diagnosis: Other specified disorders of teeth and supporting structures Presentation: 11/17 04:29 Chief complaint: Patient states: TOOTH ACHE AT THE RIGHT LOWER JAW. ha1 04:29 Coronavirus screen: Client denies travel out of the [place] in the last 14 days. Ebola ha1 Screen: No symptoms or risks identified at this time. Initial Sepsis Screen: Does the patient meet any 2 criteria? No. Patient's initial sepsis screen is negative. Does the patient have a suspected source of infection? No. Patient's initial sepsis screen is negative. Risk Assessment: Do you want to hurt yourself or someone else? Patient reports no desire to harm self or others. Onset of symptoms was November 17, 2024. 04:29 Method Of Arrival: Ambulatory ha1 04:29 Acuity: YURI 5 ha1 Triage Assessment: 04:29 General: Appears uncomfortable, Behavior is calm, cooperative. Pain: Complains of pain ha1 in lower right first molar Pain currently is 10 out of 10 on a pain scale. Neuro: Level of Consciousness is awake, alert, obeys commands, Oriented to person, place, time, situation. Cardiovascular: Capillary refill < 3 seconds Patient's skin is warm and dry. Respiratory: Airway is patent Respiratory effort is even, unlabored, Respiratory pattern is regular, symmetrical. Historical: - Allergies: 04:29 chemo; ha1 04:29 Latex; ha1 - Home Meds: 04:29 metformin 500 mg Oral tablet 2 times per day [Active]; citalopram oral [Active]; ha1 Trazodone Oral [Active]; oxcarbazepine oral [Active]; - PMHx: 04:29 Bipolar disorder; diabetes mellitus; Irritable bowel syndrome; Leukemia; ha1 - PSHx: 04:29 Appendectomy; ha1 - Immunization history:: Adult Immunizations up to date. - Infectious Disease History:: Denies. - Social history:: Smoking status: Patient denies any tobacco usage or history of. Screenin:36 [facility] ED Fall Risk Assessment (Adult) History of falling in the last 3 months, rg5 including since admission No falls in past 3 months (0 pts) Confusion or Disorientation No (0 pts) Intoxicated or Sedated No (0 pts) Impaired Gait No (0 pts) Mobility Assist Device Used No (0 pt) Altered Elimination No (0 pt) Score/Fall Risk Level 3 or more points = High Risk Oriented to surroundings, Maintained a safe environment, Hourly rounding (assess needs \T\ fall precautionary measures) done. Abuse screen: Denies threats or abuse. Nutritional screening: No deficits noted. Tuberculosis screening: No symptoms or risk factors identified. Assessment: 04:33 General: Appears in no apparent distress. comfortable, Behavior is calm, cooperative, rg5 appropriate for age. Pain: Complains of pain in teeth Pain Quality of pain is described as aching, Pain began 1 hour ago. Neuro: Level of Consciousness is awake, alert, obeys commands, Oriented to person, place, time, situation. Cardiovascular: Denies chest pain. Respiratory: Airway is patent Trachea midline Respiratory effort is even, unlabored, Respiratory pattern is regular, symmetrical. GI: No signs and/or symptoms were reported involving the gastrointestinal system. : No signs and/or symptoms were reported regarding the genitourinary system. EENT: Dental caries noted in lower right third molar (#32). Derm: Skin is intact, Skin is dry, Skin is normal, Skin temperature is warm. Musculoskeletal: Circulation, motion, and sensation intact. Range of motion: intact in all extremities. Vital Signs: 04:29 BP 147 / 109; Pulse 100; Resp 19 S; Temp 98.3; Pulse Ox 100% on R/A; Weight 65.77 kg; ha1 Height 5 ft. 5 in. ; 04:29 Body Mass Index 24.13 (65.77 kg, 165.1 cm) ha1 ED Course: 04:27 Patient arrived in ED. [email or web address] 04:27 Ulises Sullivan PA is PHCP. cp 04:27 Ulises Sheikh MD is Attending Physician. cp 04:33 Enio Bar, JOEL is Primary Nurse. rg5 04:36 Patient has correct armband on for positive identification. Door closed. Noise rg5 minimized. 04:36 No provider procedures requiring assistance completed. rg5 04:41 Triage completed. ha1 04:55 Provided Education on: post er care. rg5 04:55 Patient did not have IV access during this emergency room visit. rg5 Administered Medications: 04:42 Drug: Acetaminophen PO 650 mg PO once Route: PO; rg5 04:57 Follow up: Response: No adverse reaction; Pain is decreased rg5 04:42 Drug: Clindamycin PO 300 mg PO once Route: PO; rg5 04:57 Follow up: Response: No adverse reaction rg5 04:43 Drug: Ketorolac IM 30 mg IM once Route: IM; Site: right deltoid; rg5 04:57 Follow up: Response: No adverse reaction; Pain is decreased rg5 Medication: 04:36 VIS not applicable for this client. rg5 Outcome: 04:41 Discharge ordered by MD. robert 04:55 Discharged to home ambulatory, rg5 04:55 Condition: stable 04:55 Discharge instructions given to patient, Instructed on discharge instructions, follow up and referral plans. Demonstrated understanding of instructions, follow-up care, medications, Prescriptions given X 2, 04:57 Patient left the ED. rg5 Signatures: Ulises Sullivan PA PA cp Jeffries, Jennifer [email or web address] Adela Cutler, RN RN ha1 Enio Bar RN RN rg5
[2024-11-17] MEDS ORDERED: KETOROLAC 30 MG/ML INJ ONE (04:47)
[2024-11-17] MEDS ORDERED: ACETAMINOPHEN 325 MG TABLET ONE (04:48)
[2024-11-17 05:49] VITALS: BP 147/109; TEMP 98.3; O2SAT 100
== END 2024-11-17 04:57 | disposition home or self-care (01) ==
LOC: ER 04:25
DX: K08.89 Other specified disorders of teeth and supporting structures (principal)
CPT/HCPCS: 96372; 99284